=== PATIENT | male | born 1940 | race Hispanic/Latino ===

== ENCOUNTER 2016-06-06 07:23 | Inpatient (IN) | payer MEDICARE, MEDICAID ==
[2016-06-06] MEDS ORDERED: Pantoprazole 40 MG in Sodium Chloride 0.9% 100 ML IV STA (07:35)
[2016-06-06] MEDS ORDERED: Morphine 4 mg/ml ISec IVP STA ×2 (07:35→10:46)
--- NOTE | 2016-06-06 07:38 | ED PDOC ---
Arrival/HPI - General Time Seen by Provider: 06/06/16 07:25 Historian: Snf, EMS EM Caveat: Dementia - Critical Care Critical Care Minutes: 30 minutes - History of Present Illness Narrative History of Present Illness (Text): 06/06/16 07:30 Max Matthew is a 75 year old male brought in by EMS, whose past medical history includes hemolytic anemia, prostate cancer, and Alzheimer's disease, who presents to the emergency room sent from the half-way for abdominal pain and vomiting since last night. Limited HPI and ROS due to patient's dementia and acuity of condition. Time/Duration: 24 hours (Last night) Symptom Onset: Sudden Symptom Course: Unchanged Severity Level: Mild Activities at Onset: Rest Context: Other (Snf) Associated Symptoms (Text): 06/06/16 07:51 From the half-way via ambulance with abdominal pain and vomiting since last night. Patient has a history of dementia is unable to give any history. He was admitted to the hospital approximately 3 months ago for GI bleed. At that time he had a CT scan of the abdomen and pelvis ultrasound of the abdomen HIDA scan and MRCP. He had gallstones, but not acute cholecystitis. He does have a POLST and is a full code. Past Medical History - Provider Review Nursing Documentation Reviewed: Yes - Infectious Disease Hx of Infectious Diseases: None - Cardiac Hx Cardiac Disorders: No - Pulmonary Hx Respiratory Disorders: No - Neurological Hx Neurological Disorder: Yes Hx Alzheimer's Disease: Yes - HEENT Hx HEENT Disorder: No - Renal Hx Renal Disorder: No - Endocrine/Metabolic Hx Endocrine Disorders: No - Hematological/Oncological Hx Blood Transfusions: Yes Hx Blood Transfusion Reaction: No - Integumentary Hx Dermatological Disorder: Yes (JAUNDICED SKIN 06-21-15) - Musculoskeletal/Rheumatological Hx Musculoskeletal Disorders: Yes - Gastrointestinal Hx Gastrointestinal Disorders: Yes (H/O OF BOWEL OBSTRUCTION WITH SX) Other/Comment: POOR APPETITE 06-21-15 FAILURE TO THRIVE,CONSTIPATION - Genitourinary/Gynecological Hx Genitourinary Disorders: Yes Hx Incontinence: Yes Hx Prostate Problems: Yes (PROSTATE CA WITH RADIATION) - Psychiatric Hx Emotional Abuse: No Hx Physical Abuse: No Hx Substance Use: No - Surgical History Other/Comment: BOWEL OBSTRUCTION-1996 - Anesthesia Hx Anesthesia Reactions: No Hx Malignant Hyperthermia: No Family/Social History - Physician Review Nursing Documentation Reviewed: Yes Family/Social History: No Known Family HX Smoking Status: Former Smoker Hx Alcohol Use: No Hx Substance Use: No Allergies/Home Meds Allergies/Adverse Reactions: Allergies No Known Allergies Allergy (Verified 06/06/16 07:52) Home Medications: Home Meds Medication Instructions Recorded Confirmed Donepezil HCl 23 mg PO DAILY 07/08/15 06/06/16 Acetaminophen [8 Hour] 650 mg PO Q4H PRN 03/01/16 06/06/16 Cyanocobalamin [Vitamin B12 100 100 mcg PO DAILY 03/01/16 06/06/16 mcg Tab] Magnesium Hydroxide [Milk Of 30 ml PO PRN PRN 03/01/16 06/06/16 Magnesia] Review of Systems - Review of Systems Systems not reviewed;Unavailable: Dementia Physical Exam Vital Signs Temp Pulse Resp BP Pulse Ox 06/06/16 12:54 104.4 F H 109 H 16 102/54 L 91 L 06/06/16 11:30 110 H 16 139/82 94 L 06/06/16 10:45 102.8 F H 109 H 20 168/97 H 95 06/06/16 07:54 100.1 F H 81 16 146/74 95 Temperature: Febrile Blood Pressure: Normal Pulse: Regular Respiratory Rate: Normal Appearance: Positive for: Well-Appearing, Non-Toxic, Comfortable Pain Distress: None Mental Status: Positive for: Confused, Lethargic, other (Oriented 1 only) - Systems Exam Head: Present: Atraumatic, Normocephalic Pupils: Present: PERRL Extroacular Muscles: Present: EOMI Conjunctiva: Present: Normal Mouth: Present: Moist Mucous Membranes Pharnyx: No: ERYTHEMA, EXUDATE, TONSILS ENLARGED Nose (External): Present: Other (necrotic skin graft) Respiratory/Chest: Present: Clear to Auscultation, Good Air Exchange, Decreased Breath Sounds. No: Respiratory Distress, Accessory Muscle Use Cardiovascular: Present: Regular Rate and Rhythm, Normal S1, S2. No: Murmurs Abdomen: Present: Tenderness (rigid surgical abdomen), Distention (Abdomen distended tympanitic and quiet with surgical scar), Guarding, Hernias ( Incisional hernia easily reduced; general moderate tenderness with involuntary guarding and no rebound), Other. No: Normal Bowel Sounds, Rebound Upper Extremity: Present: Normal Inspection. No: Cyanosis, Edema Lower Extremity: Present: Normal Inspection. No: Edema Neurological: Present: GCS=15, CN II-XII Intact, Speech Normal, Motor Func Grossly Intact Skin: Present: Rashes, Other (generalized tinea infection ) Psychiatric: No: Alert, Oriented x 3, Normal Insight Medical Decision Making ED Course and Treatment: 06/06/16 07:30 Impression: 75 year old male complaining of abdominal pain and vomiting since last night. Plan: -- EKG -- Chest X-ray -- Abdomen and Pelvis CT w/o PO contrast -- Labs -- Blood Culture -- Urinalysis -- Morphine, Zofran, Protonix -- IV Fluids -- Reassess and disposition Prior Visits: Notes and results from previous visits were reviewed. Patient last seen in the ED on 03/01/16 for hematemesis. Patient was admitted to hospitalist care for further evaluation. Progress Notes: 06/06/16 07:55 EKG shows normal sinus rhythm rate approximately 75 with Q waves inferiorly and no acute ST changes 06/06/16 09:[address] Coates, Security Officer Supervisor, who requests consulting Dr. Krishnamurthy. 06/06/16 09:25 CT Abdomen and Pelvis without Oral or IV contrast Creator : Haritha Pacheco MD IMPRESSION: Distended gallbladder with evidence of gallbladder-wall thickening/mild pericholecystic fluid. No calcified gallstones evident. Correlate clinically for possibility of cholecystitis. Right upper quadrant ultrasound may be considered for further evaluation if indicated. Constipation with question of impaction at the rectum. Borderline enlargement of the prostate gland. Recommend correlation with PSA. Numerous urinary bladder diverticula. Scattered prominent but sub cm retroperitoneal and mesenteric lymph nodes, nonspecific. Mild mesenteric inflammatory stranding. Correlate clinically for possibility of mesenteric adenitis/panniculitis. Findings discussed with Dr. Liao on 06/06/16 at 9:25 a.m. 06/06/16 09:10 Chest X-ray: Creator : Haritha Pacheco MD FINDINGS: LUNGS:Bibasilar atelectasis. Scattered probable calcified granulomas. Please note that chest x-ray has limited sensitivity for the detection of pulmonary masses. PLEURA:No significant pleural effusion identified. No definite pneumothorax . CARDIOVASCULAR:Heart size appears within normal limits. Mild aortic ectasia. OSSEOUS STRUCTURES: Osseous demineralization. Degenerative changes. VISUALIZED UPPER ABDOMEN:Unremarkable. IMPRESSION: Bibasilar atelectasis. 06/06/16 09:[address] Krishnamurthy, who agrees to evaluate patient. 06/06/16 09:[address] Hastings, who will evaluate patient for the unit. 06/06/16 14:08 Dr. Coates ,Raghu and Rupa all evaluated the patient in the emergency department. Dr Gusman evaluated the patient in the emergency department and declined ICU admission. - Lab Interpretations Lab Results: 06/06/16 07:48 06/06/16 07:48 Lab Results 06/06/16 08:27: Lactic Acid 4.2 H*, Urine Color Yellow, Urine Appearance Clear, Urine pH 6.0, Ur Specific [place] >= 1.030, Urine Protein Trace H, Urine Glucose (UA) 500 H, Urine Ketones Negative, Urine Blood Small H, Urine Nitrate Negative, Urine Bilirubin Negative, Urine Urobilinogen 0.2, Ur Leukocyte Esterase Negative, Urine RBC 2 - 5, Urine WBC 0 - 2, Ur Epithelial Cells 0 - 2 06/06/16 07:54: pO2 28 L, VBG pH 7.28 L, VBG pCO2 58.0, VBG HCO3 27.3, VBG Total CO2 29.1 H, VBG O2 Sat (Calc) 41.6, VBG Base Excess -0.6 L, VBG Potassium 4.0, Sodium 138.0, Chloride 103.0, Glucose 238 H, Lactate 4.6 H*, FiO2 21.0, Venous Blood Potassium 4.0 06/06/16 07:48: WBC 5.0, RBC 5.01, Hgb 16.3, Hct 45.1, MCV 90.0, MCH 32.5, MCHC 36.1, RDW 13.8, Plt Count 113 L, MPV 9.9, Gran % 92.6 H, Lymph % (Auto) 5.8 L, [place] % (Auto) 1.2, Eos % (Auto) 0.2 L, Baso % (Auto) 0.2, Gran # 4.65, Lymph # 0.3 L, [place] # 0.1, Eos # 0.0, Baso # 0.01, PT 11.0, INR 1.02, APTT 22.9 L, Sodium 140, Chloride 99, Potassium 4.1, Carbon Dioxide 28, Anion Gap 17, BUN 27 H, Creatinine 0.9, Est GFR ( Amer) > 60, Est GFR (Non-Af Amer) > 60, Random Glucose 230 H, Calcium 9.9, Total Bilirubin 3.6 H, AST 195 H, ALT 130 H, Alkaline Phosphatase 90, Lactate Dehydrogenase 877 H, Total Creatine Kinase < 20 L, Troponin I 0.02 D, Total Protein 7.5, Albumin 4.5, Globulin 2.9, Albumin/ Globulin Ratio 1.6, Amylase 93, Lipase 76 I have reviewed the lab results: Yes - RAD Interpretation Radiology Orders: 06/06/16 07:35 ABD & PELVIS W/O PO OR IV CONT [CT] Stat 06/06/16 07:36 CHEST PORTABLE [RAD] Stat Chest 1 view shows no infiltrate effusion or cardiomegaly Data Collector: ED Physician - Medication Orders Current Medication Orders: Sodium Chloride (Sodium Chloride 0.9%) 1,000 mls @ 100 mls/hr IV .Q10H STA Stop: 06/06/16 17:34 Last Admin: 06/06/16 08:05 Dose: 100 MLS/HR eMAR Start Stop Document 06/06/16 08:05 SF (Rec: 06/06/16 08:06 SF [id number]) Intravenous Solution Start Date 06/06/16 Start Time 08:06 End Date 06/06/16 Meropenem 1 gm/ Sodium (Chloride) 100 mls @ 100 mls/hr IVPB Q8 YOLANDA PRN Reason: Protocol Stop: 06/15/16 13:01 Morphine Sulfate (Morphine) 2 mg IVP Q4 PRN PRN Reason: Pain, moderate (4-7) Discontinued Medications Acetaminophen (Tylenol 650 Mg Supp) 650 mg RC STAT STA Stop: 06/06/16 11:02 Last Admin: 06/06/16 11:25 Dose: 650 MG Pantoprazole Sodium 40 mg/ (Sodium Chloride) 100 mls @ 400 mls/hr IV STAT STA Stop: 06/06/16 07:49 Last Admin: 06/06/16 08:12 Dose: 400 MLS/HR eMAR Start Stop Document 06/06/16 08:12 SF (Rec: 06/06/16 08:12 SF [id number]) Intravenous Solution Start Date 06/06/16 Start Time 08:12 End Date 06/06/16 End time 08:42 Total Infusion Time 30 Sodium Chloride (Sodium Chloride 0.9%) 2,500 mls @ 500 mls/hr IV ONCE ONE Stop: 06/06/16 13:06 Last Admin: 06/06/16 09:00 Dose: 500 MLS/HR eMAR Start Stop Document 06/06/16 09:00 SF (Rec: 06/06/16 09:00 SF [id number]) Intravenous Solution Start Date 06/06/16 Start Time 09:00 End Date 06/06/16 End time 10:00 Total Infusion Time 60 Ceftriaxone Sodium (Rocephin 1 Gram Ivpb) 100 mls @ 200 mls/hr IVPB STAT STA PRN Reason: Protocol Stop: 06/06/16 08:37 Last Admin: 06/06/16 09:00 Dose: 200 MLS/HR eMAR Start Stop Document 06/06/16 09:00 SF (Rec: 06/06/16 09:00 SF [id number]) Intravenous Solution Start Date 06/06/16 Start Time 09:00 End Date 06/06/16 End time 10:00 Total Infusion Time 60 Morphine Sulfate (Morphine) 4 mg IVP STAT STA Stop: 06/06/16 07:36 Last Admin: 06/06/16 08:04 Dose: 4 MG MAR Pain Assessment Document 06/06/16 08:04 SF (Rec: 06/06/16 08:04 SF [id number]) Pain Reassessment Is this a pain reassessment? Yes Presence of Pain Presence of Pain Yes Pain Scale Used Pain Scale Used Numeric Location Pain Location Body Site Abdomen Description Description Constant IVP Administration Document 06/06/16 08:04 SF (Rec: 06/06/16 08:04 SF [id number]) Charges for Administration # of IVP Administrations 1 Morphine Sulfate (Morphine) 4 mg IVP STAT STA Stop: 06/06/16 10:47 Last Admin: 06/06/16 11:26 Dose: 4 MG MAR Pain Assessment Document 06/06/16 11:26 SF (Rec: 06/06/16 11:26 SF [id number]) Pain Reassessment Is this a pain reassessment? Yes Sleep Is patient sleeping during reassessment? No Presence of Pain Presence of Pain Yes Pain Scale Used Pain Scale Used Numeric Location Pain Location Body Site Abdomen Description Description Constant Pain Behavior Guarding IVP Administration Document 06/06/16 11:26 SF (Rec: 06/06/16 11:26 SF [id number]) Charges for Administration # of IVP Administrations 1 Ondansetron HCl (Zofran Inj) 4 mg IVP STAT STA Stop: 06/06/16 07:36 Last Admin: 06/06/16 08:04 Dose: 4 MG IVP Administration Document 06/06/16 08:04 SF (Rec: 06/06/16 08:04 SF [id number]) Charges for Administration # of IVP Administrations 1 Pantoprazole Sodium (Protonix Inj) Confirm Administered Dose 40 mg .ROUTE .STK- MED ONE Stop: 06/06/16 08:06 Last Admin: 06/06/16 08:59 Dose: - Scribe Statement The provider has reviewed the documentation as recorded by the Adrienne Montaño Provider Scribe Attestation: All medical record entries made by the Scribe were at my direction and personally dictated by me. I have reviewed the chart and agree that the record accurately reflects my personal performance of the history, physical exam, medical decision making, and the department course for this patient. I have also personally directed, reviewed, and agree with the discharge instructions and disposition. Disposition/Present on Arrival - Present on Arrival Any Indicators Present on Arrival: No History of DVT/PE: No History of Uncontrolled Diabetes: No Urinary Catheter: No History of Decub. Ulcer: No History Surgical Site Infection Following: None - Disposition Have Diagnosis and Disposition been Completed?: Yes Diagnosis: Hyperbilirubinemia, Sepsis, Cholecystitis, Fever, Abdominal pain, Vomiting Disposition: HOSPITALIZED Disposition Time: 09:29 Patient Plan: Admission Patient Problems: Current Active Problems Problem Status Diagnosed Cholecystitis Acute Fever Acute Gastrointestinal hemorrhage Acute Hyperbilirubinemia Acute Sepsis Acute Condition: CRITICAL
[2016-06-06 07:47] VITALS: BMI 25.1
[2016-06-06 07:49] LABS: ADD MANUAL DIFF? NO
[2016-06-06 07:53] LABS: BASO # 0.01 K/mm3 (0.0-2.0); BASO % 0.2 % (0.0-3.0); EOS % 0.2 % (1.5-5.0); GRAN # 4.65 (1.4-6.5); GRAN % 92.6 % (50.0-68.0); HEMATOCRIT 45.1 % (42.0-52.0); LYMPH # 0.3 (1.2-3.4); LYMPH % 5.8 % (22.0-35.0); MEAN CORPUSCULAR HEMOGLOBIN 32.5 pg (25.0-35.0); MEAN CORPUSCULAR HGB CONC 36.1 g/dl (31.0-37.0); MEAN PLATELET VOLUME 9.9 fl (7.0-11.0); MONO # 0.1 (0.1-0.6); MONO % 1.2 % (1.0-6.0); PLATELET COUNT 113 10^3/uL (120.0-450.0); RED CELL DISTRIBUTION WIDTH 13.8 % (11.5-14.5)
[2016-06-06 07:59] LABS: VENOUS BLOOD GAS BASE EXCESS -0.6 mmol/L (0.0-2.0); VENOUS BLOOD PH 7.28 (7.32-7.43)
[2016-06-06 08:03] LABS: ALB/GLOB RATIO 1.6 (1.1-1.8); ALKALINE PHOSPHATASE 90 U/L (38-133); ALT/SGPT 130 U/L (7-56); AMYLASE 93 U/L (35-125); AST/SGOT 195 U/L (15-59); BILIRUBIN,TOTAL 3.6 mg/dL (0.2-1.3); BLOOD UREA NITROGEN 27 mg/dL (7-21); CALCIUM 9.9 mg/dL (8.4-10.5); CARBON DIOXIDE 28 mmol/L (21-33); CHLORIDE 99 mmol/L (98-107); GFR AFRICAN-AMERICAN > 60; GLUCOSE,RANDOM 230 mg/dL (70-110); LIPASE 76 U/L (23-300); POTASSIUM 4.1 mmol/L (3.6-5.0); SODIUM 140 mmol/L (132-148); TOTAL PROTEIN 7.5 g/dL (5.8-8.3)
[2016-06-06 08:04] LABS: INR 1.02 (0.93-1.08); PARTIAL THROMBOPLASTIN TIME 22.9 Seconds (23.7-30.8)
[2016-06-06] MEDS: Sodium Chloride 0.9% 1,000 ML IV STA ×2 (08:05→22:30)
[2016-06-06] MEDS ORDERED: Sodium Chloride 0.9% 2,500 ML IV ONE (08:07)
[2016-06-06] MEDS ORDERED: cefTRIAXone 1 gm 100 ML IVPB STA (08:08)
[2016-06-06 08:14] LABS: TROPONIN I 0.02 ng/mL
[2016-06-06 08:34] LABS: URINE BILIRUBIN NEGATIVE (NEGATIVE); URINE BLOOD SMALL (NEGATIVE); URINE GLUCOSE (UA) 500 mg/dL (NEGATIVE); URINE KETONE NEGATIVE (NEGATIVE); URINE LEUKOCYTE ESTERASE NEGATIVE Leu/uL (NEGATIVE); URINE PROTEIN TRACE mg/dL (<30 mg/dL); URINE UROBILINOGEN 0.2 E.U./dL (<1 E.U./dL)
[2016-06-06 08:35] LABS: URINE APPEARANCE CLEAR (CLEAR); URINE COLOR YELLOW (YELLOW)
[2016-06-06 08:42] LABS: URINE EPITHELIAL CELLS 0 - 2 /hpf (0-5); URINE WBC 0 - 2 /hpf (0-6)
--- NOTE | 2016-06-06 09:08 | RAD ---
HISTORY: ap COMPARISON: Chest x-ray performed 03/03/16, CT chest without contrast performed 03/03/16, lung bases on CT abdomen and pelvis performed 06/06/16. TECHNIQUE: Chest, one view. FINDINGS: LUNGS: Bibasilar atelectasis. Scattered probable calcified granulomas. Please note that chest x-ray has limited sensitivity for the detection of pulmonary masses. PLEURA: No significant pleural effusion identified. No definite pneumothorax . CARDIOVASCULAR: Heart size appears within normal limits. Mild aortic ectasia. OSSEOUS STRUCTURES: Osseous demineralization. Degenerative changes. VISUALIZED UPPER ABDOMEN: Unremarkable. OTHER FINDINGS: None. IMPRESSION: Bibasilar atelectasis.
--- NOTE | 2016-06-06 09:35 | CT ---
PROCEDURE: CT Abdomen and Pelvis without Oral or IV contrast. HISTORY: pain COMPARISON: Abdominal ultrasound performed 03/03/16, CT abdomen and pelvis with contrast performed 03/08/16 TECHNIQUE: Contiguous axial images of the abdomen and pelvis. No oral or IV contrast administered. Coronal and Sagittal reformats generated and reviewed. Radiation dose: Total exam DLP = 502.14 mGy-cm. FINDINGS: There is limited evaluation of the solid organs without the administration of IV contrast. LOWER THORAX: Bibasilar atelectasis. Right lung base calcified granuloma. No visible pleural effusion or pneumothorax. Small hiatal hernia. LIVER: Unremarkable unenhanced appearance. GALLBLADDER AND BILE DUCTS: Distended gallbladder with evidence of gallbladder-wall thickening/mild pericholecystic fluid. No calcified gallstones evident. PANCREAS: Atrophic pancreas. SPLEEN: Unremarkable unenhanced appearance. ADRENALS: Unremarkable unenhanced appearance. KIDNEYS AND URETERS: No hydronephrosis or obstructing renal calculus. BLADDER: Numerous urinary bladder diverticula. REPRODUCTIVE: Borderline enlargement of the prostate gland. Adjacent surgical clips. APPENDIX: No secondary signs of acute appendicitis. BOWEL: The stomach is nondistended. Lack of oral contrast limits evaluation for bowel pathology. The bowel loops appear within normal limits of caliber without evidence of intestinal obstruction. Constipation with suspected impaction at the rectum. PERITONEUM: No significant free fluid. No definite free air. LYMPH NODES: Scattered prominent but sub cm mesenteric and retroperitoneal lymph nodes, nonspecific. Mild mesenteric inflammatory stranding. VASCULATURE: Atherosclerotic calcifications. No aortic aneurysm. BONES: Degenerative changes. OTHER FINDINGS: None. IMPRESSION: Distended gallbladder with evidence of gallbladder-wall thickening/mild pericholecystic fluid. No calcified gallstones evident. Correlate clinically for possibility of cholecystitis. Right upper quadrant ultrasound may be considered for further evaluation if indicated. Constipation with question of impaction at the rectum. Borderline enlargement of the prostate gland. Recommend correlation with PSA. Numerous urinary bladder diverticula. Scattered prominent but sub cm retroperitoneal and mesenteric lymph nodes, nonspecific. Mild mesenteric inflammatory stranding. Correlate clinically for possibility of mesenteric adenitis/panniculitis. Findings discussed with Dr. Liao on 06/06/16 at 9:25 a.m.
[2016-06-06 11:19] LABS: VENOUS BLOOD GAS BASE EXCESS -8.9 mmol/L (0.0-2.0)
[2016-06-06 11:23] LABS: VENOUS BLOOD PH 7.18 (7.32-7.43)
--- NOTE | 2016-06-06 11:34 | CP.CCUPN ---
<Zulema Jiang - Last Filed: 06/06/16 12:10> CCU Subjective - Physician Review Events Since Last Encounter (Free Text): 06/06/16 10:44 CC: Abdominal Pain, Vomiting HPI: 75 yo M w h/o SBO, MDS, gastritis, Alzheimer's dementia presented to ER from [facility] with 1 day h/o abdominal pain and non-bloody, non- bilious vomiting. Patient is severely demented and is unable to provide any history. History is largely obtained from ER physician and the patient's , who is currently at bedside in the ER. Patient had recent hospitalization in February with similar symptoms at which time he was found to have PNA, UGIB, UTI , sepsis. Patient had MRCP at that time which showed normal CBD, small gallstones. He presents today with complaints of abdominal pain, emesis, no complaints of GIB. He is seen and examined in ER, appears in mild acute distress unable to answer any questions aside from confirming abdominal pain due to baseline mental function. PMHx: SBO, hemolytic anemia, MDS, prostate CA, Alzheimer's dementia, SBO s/p surgical intervention, diverticulosis, gastritis, hypothyroidism PSHx: abdominal sx for SBO FamilyHx: Mom had ovarian and colon CA. Dad had an aortic aneurysm. SocialHx: Former cigar and pipe smoker. Quit smoking 30 years ago. No h/o EtOH and illicit drug abuse Allergies: NKDA HomeMeds: Donepezil, Feosol, Protonix, Synthroid, Milk of Mag, B12, Tylenol Critical Care Time Spent (in minutes): 50 CCU Objective - Physical Exam Head: Positive for: Atraumatic, Normocephalic Pupils: Positive for: PERRL Extroacular Muscles: Positive for: EOMI Conjunctiva: Positive for: Normal Mouth: Positive for: Moist Mucous Membranes Pharnyx: Negative for: ERYTHEMA, EXUDATE, TONSILS ENLARGED Nose (External): Positive for: Other (necrotic skin graft) Respiratory/Chest: Positive for: Clear to Auscultation, Good Air Exchange, Decreased Breath Sounds. Negative for: Respiratory Distress, Accessory Muscle Use Cardiovascular: Positive for: Regular Rate and Rhythm, Normal S1, S2. Negative for: Murmurs Abdomen: Positive for: Tenderness, Distention (Abdomen distended tympanitic and quiet with surgical scar), Guarding, Hernias (Incisional hernia easily reduced; general moderate tenderness with involuntary guarding and no rebound), Scars. Negative for: Normal Bowel Sounds, Rebound Upper Extremity: Positive for: Normal Inspection. Negative for: Cyanosis, Edema Lower Extremity: Positive for: Normal Inspection. Negative for: Edema Neurological: Positive for: GCS=15, CN II-XII Intact, Speech Normal, Motor Func Grossly Intact Skin: Positive for: Rashes, Other (generalized tinea infection ) Psychiatric: Negative for: Alert, Oriented x 3, Normal Insight - Medications Active Medications: Active Medications Generic Name Dose Route Start Last Admin Trade Name Freq PRN Reason Stop Dose Admin Sodium Chloride 1,000 mls @ 100 mls/hr 06/06/16 07:35 06/06/16 08:05 Sodium Chloride 0.9% IV 06/06/16 17:34 100 mls/hr .Q10H STA Administration Sodium Chloride 2,500 mls @ 500 mls/hr 06/06/16 08:07 06/06/16 09:00 Sodium Chloride 0.9% IV 06/06/16 13:06 500 mls/hr ONCE ONE Administration Review of Systems - Review of Systems Systems not reviewed;Unavailable: Dementia - Constitutional Constitutional: Chills - Gastrointestinal Gastrointestinal: Abdominal Pain, Vomiting (non-bloody, non-bilious) Assessment/Plan - Assessment and Plan (Free Text) Assessment: 75 yo M w h/o SBO, MDS, gastritis, Alzheimer's dementia admitted with acute abdomen and vomiting 2/2 presumed acute on chronic cholecystitis Plan: Neuro: Mental status at baseline, h/o Alzheimer's dementia, unable to provide history CV: Currently mildly hypertensive and tachycardic. Continue to monitor VS. Maintain MAP>65 Pulm: Currently no acute issues, able to protect airway. Will continue to GI: CT A/P without contrast shows distended gallbladder with evidence of gallbladder wall thickening/mild pericholecystic fluid, no calcified gallstones , constipation, scattered prominent retroperitoneal and mesenteric LNs, mild mesenteric inflammatory stranding. Will start zosyn Followup and trend Lactate Recommend US of the abdomen to better evaluate gallbladder Recommend surgical and GI evaluation Endo: No acute issues Renal: Mild uremia 27. Continue to monitor. No DIDI. GFR >60. Continue to monitor renal function, I&Os ID: Febrile, tachycardic. Start Zosyn for prophylaxis for possible acute on chronic cholecystitis. Obtain blood and urine cultures. Heme: Hb stable. No signs of bleeding. Continue to monitor. DVT/GI ppx - Date & Time Date: 06/06/16 Time: 12:18 <Dyllan Gusman MD H - Last Filed: 06/06/16 13:11> CCU Objective - Vital Signs / Intake & Output Vital Signs (Last 4 hours): Vital Signs Temp Pulse Resp BP Pulse Ox 06/06/16 12:54 104.4 F H 109 H 16 102/54 L 91 L 06/06/16 10:45 102.8 F H 109 H 20 168/97 H 95 - Medications Active Medications: Active Medications Generic Name Dose Route Start Last Admin Trade Name Freq PRN Reason Stop Dose Admin Sodium Chloride 1,000 mls @ 100 mls/hr 06/06/16 07:35 06/06/16 08:05 Sodium Chloride 0.9% IV 06/06/16 17:34 100 mls/hr .Q10H STA Administration Sodium Chloride 2,500 mls @ 500 mls/hr 06/06/16 08:07 06/06/16 09:00 Sodium Chloride 0.9% IV 06/06/16 13:06 500 mls/hr ONCE ONE Administration Meropenem 1 gm/ Sodium 100 mls @ 100 mls/hr 06/06/16 13:00 Chloride IVPB 06/15/16 13:01 Q8 YOLANDA Protocol Morphine Sulfate 2 mg 06/06/16 11:50 Morphine IVP Q4 PRN Pain, moderate (4-7) - Patient Studies Lab Studies: Lab Studies 06/06/16 Range/Units 10:40 pO2 50 (30-55) mm/Hg VBG pH 7.18 L* (7.32-7.43) VBG pCO2 53.0 (40-60) VBG HCO3 19.8 L (21-28) mmol/l VBG Total CO2 21.4 L (22-28) mmol.L VBG O2 Sat (Calc) 77.6 H (40-65) % VBG Base Excess -8.9 L (0.0-2.0) mmol/L VBG Potassium 3.9 (3.6-5.2) mmol/L Sodium 140.0 (132-148) mmol/L Chloride 110.0 H (98-107) mmol/L Glucose 229 H (75-110) mg/dl Lactate 8.1 H* (0.7-2.1) mmol/L FiO2 21.0 % Venous Blood Potassium 3.9 (3.6-5.2) mmol/L Laboratory Results - last 24 hr 06/06/16 10:40 pO2 50 VBG pH 7.18 L* VBG pCO2 53.0 VBG HCO3 19.8 L VBG Total CO2 21.4 L VBG O2 Sat (Calc) 77.6 H VBG Base Excess -8.9 L VBG Potassium 3.9 Sodium 140.0 Chloride 110.0 H Glucose 229 H Lactate 8.1 H* FiO2 21.0 Venous Blood Potassium 3.9 Critical Care Progress Note - Nutrition Nutrition: Nutrition Category Date Time Status NPO Diet [DIET] Diets 06/06/16 Dinner Ordered Attending/Attestation - Attestation I have personally seen and examined this patient.: Yes I have fully participated in the care of the patient.: Yes I have reviewed all pertinent clinical information: Yes Notes (Text): 06/06/16 13:03 75 y/o M seen in the ER with increased abdominal pain , diaphoresis, fever and tachycardia Worrisome for acute/ chronic Cholecystitis CT abd / pelvis shows increased GB wall thickening Lactate increased, fevers and worrisome for acute abdomen on physical exam. Abd rigid with guarding and tightness. Surgical consult pending awaiting dispo Vancomycin and Zosyn started . Cx sent . May need US GB and possible need for cholycystostomy tube. cc time 72 min Pt to be brought to the ICU
[2016-06-06] MEDS ORDERED: Morphine 2 mg/ml ISec IVP PRN (11:50)
--- NOTE | 2016-06-06 12:30 | HP ---
HISTORY OF PRESENT ILLNESS: The patient is a 75-year-old male who was [facility] secondary to nausea, vomiting and abdominal discomfort. The patient seen and examined in the ER, clinically is very much so in mild distress. He is not able to answer my questio ns due to the fact that he is only moaning in pain. Family was at the bedside stating that he was do ing well in rehab and then all of a sudden today started having severe nausea and vomiting. PAST MEDICAL HISTORY: Includes Alzheimer's disease, hemolytic anemia, prostate CA, status post radio active pellets. He has had a history of bowel obstruction, status post surgery with failure to thriv e and constipation. MEDICAL ALLERGIES: No known allergies. MEDICATIONS: See MAY. SOCIAL HISTORY: Former smoker. No alcohol, no drug use. REVIEW OF SYSTEMS: Unfortunately, unable to obtain. However, as per ER doctor, no signs of any acut e distress. No headaches, no dizziness, no nausea, no vomiting, no chest pain. No shortness of grover th. However, according to the nurse at the [facility], he was complaining of nausea with 2 episode s of vomiting and he was bent over in pain in the position because of his belly. PHYSICAL EXAMINATION: VITAL SIGNS: Blood pressure currently is 146/74, pulse rate of 109, temperature is 102.8, O2 saturat ion is 95 on room air. HEENT: Normocephalic, atraumatic. Pale conjunctivae. CARDIOVASCULAR: Regular rate and rhythm. S1, S2 appreciated. LUNGS: Bilateral air entry is positive; however, decreased at the base with no wheezes or rhonchi. ABDOMEN: At this point, there is guarding. There is rebound and there is tenderness diffusely. EXTREMITIES: Peripheral pulses +2 with no pitting edema. NEUROLOGICAL: Unable to ascertain due to the fact the patient was just moaning in pain. LABORATORIES: WBCs of 5.0, hemoglobin of 16.3, hematocrit of 45.1, platelets of 113. Coagulation wi thin normal limits with an INR of 1.02. Chemistry also within normal limits with a lactic acid eleva carrie at 4.2. LFTs: AST of 195, ALT of 130. Amylase and lipase within normal limits. CAT scan of abdomen is pending official reading at this point. ASSESSMENT: 1. Abdominal pain. 2. Rule out mesenteric infarction. 3. Rule out any small bowel obstruction. 4. Rule out cholecystitis. 5. Anemia. 6. Prostate carcinoma. 7. Diverticulitis. PLAN: At this time, we will continue his pain management the patient is receiving as well as IV flui ds. We will also empirically start patient on IV antibiotics and we will get a consult with surgery at this point/ ICU has been called on board to evaluate the patient and also we will call GI to jr angulo. Stepan Coates MD cc: [id number] TT: 06/06/2016 12:29:57 tn
[2016-06-06] MEDS ORDERED: Piperacillin/Tazobact 3.375 gm 100 ML IVPB SCH ×2 (12:44→18:00)
--- NOTE | 2016-06-06 13:35 | CON ---
DATE: 06/06/2016 The patient seen in the Emergency Room. CHIEF COMPLAINT: Fever of 102 x 1 day duration. HISTORY OF PRESENT ILLNESS: This is a 75-year-old male retirement patient with hemolytic anemia, h istory of Alzheimer's dementia, prostate cancer, depression, history of bowel obstruction, radiation pellets. In February, the patient had E. coli bacteremia, biliary tree as the origin, also had Klebs iella urinary tract infection with a history of depression, who as admitted from the retirement acc ording to the patient's . The patient was seen at the bedside in the Emergency Room with a fever . The patient, at this point, in the Emergency Room, is unresponsive. The nursing staff states that the patient was responsive earlier as the patient's states the patient was responsive earlier. At this point, the patient is not responsive. There has been no chest pain reported. No cough or s hortness of breath. No hemoptysis reported. PAST MEDICAL HISTORY: Significant for hemolytic anemia, Alzheimer's dementia, prostate cancer with r adiation, history of depression, history of bowel obstruction and history of radiated pellets and E. coli bacteremia secondary to biliary tree, Klebsiella urinary tract infection and depression. PAST SURGICAL HISTORY: Significant for bowel surgery. PHYSICAL EXAMINATION: VITAL SIGNS: The patient is in bed with a temperature of 102.8 and 160/70, a heart rate of 102, resp iratory rate of 20. HEENT: Unremarkable. NECK: Supple. LUNGS: Have decreased breath sounds. HEART: Normal S1, S2. ABDOMEN: Soft. No rebound, no guarding, no masses. There is mild tenderness in the right upper sandra drant. LABORATORY EXAMINATION: Reveals the patient has a white count of 5, hemoglobin of 16, platelets of 1 13. Chemistries reveal the patient's LFTs are elevated with bilirubin of 3.6. LDH is 877. Lactic a jane is 4.2 and alk phos is only 90. Urinalysis is noted, unremarkable. The patient had a CAT scan o f the abdomen and pelvis which was unremarkable except for the patient has atrophic pancreas. The santos huizar's CAT scan was without p.o. or IV contrast and he does have a distended gallbladder with eviden ce of gallbladder wall thickening and pericholecystic fluid. No calcified gallstone is evident. ASSESSMENT AND PLAN: A 75-year-old retirement patient with hemolytic anemia, Alzheimer's dementia, prostate cancer, depression, bowel obstruction and radiated pellets, Escherichia coli bacteremia sec ondary biliary tree, Klebsiella urinary tract infection, depression, now presenting with a temperatur e of 102, tachycardia with sepsis, most likely gastrointestinal origin with gallbladder and biliary t ree and ascending cholangitis. We will call the surgical and gastroenterology consultations and I d iscussed the case with Dr. Gusman, the program professional, who will admit the patient to the unit and order a stat HIDA scan, start the patient empirically on meropenem and we will make further recommendations. Padilla Goode MD cc: [id number] TT: 06/06/2016 13:34:33 Confirmation # [id number] Dictation # [id number] tn
[2016-06-06] MEDS ORDERED: Propofol 10 mg/ml Inj (20 ML) IVP ONE (14:08)
[2016-06-06] MEDS ORDERED: Sodium Chloride 0.9% 1,000 ML IV STA ×4 (14:08→20:30)
--- NOTE | 2016-06-06 15:00 | CP.PCM.CON ---
History of Present Illness - History of Present Illness History of Present Illness: General Surgery Consult note for Dr. Krishnamurthy Consult reason: 75Y/O M with PMH of alzheimers, prostate cancer treated with radiation pellets, and constipation with PSH of some Past Patient History - Infectious Disease Hx of Infectious Diseases: None - Past Social History Smoking Status: Former Smoker - CARDIAC Hx Cardiac Disorders: No - PULMONARY Hx Respiratory Disorders: No - NEUROLOGICAL Hx Neurological Disorder: Yes Hx Alzheimer's Disease: Yes - HEENT Hx HEENT Problems: No - RENAL Hx Chronic Kidney Disease: No - ENDOCRINE/METABOLIC Hx Endocrine Disorders: No - HEMATOLOGICAL/ONCOLOGICAL Hx Blood Transfusions: Yes Hx Blood Transfusion Reaction: No - INTEGUMENTARY Hx Dermatological Problems: Yes (JAUNDICED SKIN 06-21-15) - MUSCULOSKELETAL/RHEUMATOLOGICAL Hx Musculoskeletal Disorders: Yes - GASTROINTESTINAL Hx Gastrointestinal Disorders: Yes (H/O OF BOWEL OBSTRUCTION WITH SX) Other/Comment: POOR APPETITE 06-21-15 FAILURE TO THRIVE,CONSTIPATION - GENITOURINARY/GYNECOLOGICAL Hx Genitourinary Disorders: Yes Hx Incontinence: Yes Hx Prostate Problems: Yes (PROSTATE CA WITH RADIATION) - PSYCHIATRIC Hx Emotional Abuse: No Hx Physical Abuse: No Hx Substance Use: No - SURGICAL HISTORY Other/Comment: BOWEL OBSTRUCTION-1995 - ANESTHESIA Hx Anesthesia Reactions: No Hx Malignant Hyperthermia: No Meds Allergies/Adverse Reactions: Allergies Allergy/AdvReac Type Severity Reaction Status Date / Time No Known Allergies Allergy Verified 06/06/16 07:52 - Medications Medications: Current Medications Sodium Chloride (Sodium Chloride 0.9%) 1,000 mls @ 100 mls/hr IV .Q10H STA Stop: 06/06/16 17:34 Last Admin: 06/06/16 08:05 Dose: 100 mls/hr Meropenem 1 gm/ Sodium (Chloride) 100 mls @ 100 mls/hr IVPB Q8 YOLANDA PRN Reason: Protocol Stop: 06/15/16 13:01 Sodium Chloride (Sodium Chloride 0.9%) 1,000 mls @ 999 mls/hr IV .Q1H1M STA Stop: 06/06/16 15:08 Dexmedetomidine HCl (Precedex 4 Mcg/Ml (100 Ml)) 100 mls @ 3.856 mls/hr IV .Q24H PRN; Protocol; 0.2 MCG/KG/HR PRN Reason: Agitation Morphine Sulfate (Morphine) 2 mg IVP Q4 PRN PRN Reason: Pain, moderate (4-7) Sodium Phosphate (Fleet Enema) 135 ml RC ONCE ONE Stop: 06/06/16 14:57 Results - Vital Signs Recent Vital Signs: Last Vital Signs Temp 104.4 F H 06/06/16 12:54 Pulse 109 H 06/06/16 12:54 Resp 16 06/06/16 12:54 BP 102/54 L 06/06/16 12:54 Pulse Ox 91 L 06/06/16 12:54 - Labs Result Diagrams: 06/06/16 07:48 06/06/16 07:48 Labs: Laboratory Results - last 24 hr 06/06/16 10:40 pO2 50 VBG pH 7.18 L* VBG pCO2 53.0 VBG HCO3 19.8 L VBG Total CO2 21.4 L VBG O2 Sat (Calc) 77.6 H VBG Base Excess -8.9 L VBG Potassium 3.9 Sodium 140.0 Chloride 110.0 H Glucose 229 H Lactate 8.1 H* FiO2 21.0 Venous Blood Potassium 3.9
[2016-06-06] MEDS: Meropenem 1 GM in Sodium Chloride 0.9% 100 ML IVPB SCH ×3 (15:24→22:04)
[2016-06-06] MEDS: Dexmedetomidine HCl 4mcg/ml 100 ML IV PRN (15:25)
--- NOTE | 2016-06-06 15:43 | RAD ---
HISTORY: ETT conf, OGT COMPARISON: Chest x-ray performed 06/06/16 at 820 hours TECHNIQUE: Chest, one view. FINDINGS: Distal tip of the endotracheal tube terminates approximately 4.9 cm above the level the christiano. Nasogastric tube extends the expected location of the stomach. LUNGS: Bibasilar atelectasis or infiltrates. Please note that chest x-ray has limited sensitivity for the detection of pulmonary masses. PLEURA: No significant pleural effusion identified. No definite pneumothorax . CARDIOVASCULAR: Heart size appears within normal limits. OSSEOUS STRUCTURES: Mild degenerative changes. VISUALIZED UPPER ABDOMEN: Unremarkable. OTHER FINDINGS: None. IMPRESSION: Distal tip of the endotracheal tube terminates approximately 4.9 cm above the level the christiano. Nasogastric tube extends the expected location of the stomach. Bibasilar atelectasis or infiltrates.
[2016-06-06 16:14] LABS: ABG MECHANICAL RATE 20; ARTERIAL BLOOD GAS HCO3 13.2 mmol/L (21-28); ARTERIAL BLOOD GAS PH 7.21 (7.35-7.45); ATERIAL BLOOD GAS PEEP 5
--- NOTE | 2016-06-06 16:28 | CON ---
DATE: 06/06/2016 The patient is seen in the Emergency Room in the presence of his . He does not respond to questi oning, but does respond to pain. He is rigid for the most part, and seems to have a shake; maybe a c hill. HE HAS RECENTLY HAD A REACTION TO ROCEPHIN WITH REDNESS THROUGHOUT. His abdomen is hard. The re is guarding, but could be voluntary. It is very difficult to tell. No rebound, no mass. There i s a CAT scan that I looked at it myself showing a distended gallbladder with maybe a thick wall and s ome fluid around it, some constipation, stool in the cecum and the rectum. There is no evidence of i ntestinal or colonic disease. No evidence of obstruction. His temperature is 104.4. LABORATORY STUDIES: His white count is 5. His lactate is 4.2 up to 8. His total bili is 3.6, which is down from February. AST and ALT 195 and 130, alk phos normal. Chest x-ray looks pretty normal. I am at a loss to explain this clinical picture. I do not think th is is intra-abdominal sepsis. The workup of the gallbladder in February was positive for MRI/MRCP th at was relatively normal, with some small stones. HIDA was normal. Will treat with antibiotics, NG tube. I would suggest a Fleet enema. Urinalysis is back. It is non specific. I do not have a source for this patient's clinical septic appearance. Awaiting consult [facility]. Jean-Paul Krishnamurthy MD cc: [id number] TT: 06/06/2016 16:28:33 Confirmation # [id number] Dictation # [id number]
[2016-06-06 19:02] LABS: VENOUS BLOOD GAS BASE EXCESS -8.9 mmol/L (0.0-2.0)
[2016-06-06 21:49] LABS: VENOUS BLOOD GAS BASE EXCESS -11.3 mmol/L (0.0-2.0); VENOUS BLOOD PH 7.23 (7.32-7.43)
[2016-06-06] MEDS ORDERED: Sodium Chloride 0.9% 1,000 ML IV SCH (22:30)
[2016-06-07] MEDS ORDERED: Pneumococcal 23-Valent Vaccine IM ONE (00:40)
[2016-06-07] MEDS ORDERED: Influenza Vaccine 45 MCG/0.5 ml IM ONE (00:40)
[2016-06-07] MEDS: Meropenem 1 GM in Sodium Chloride 0.9% 100 ML IVPB SCH ×3 (05:14→21:46)
[2016-06-07 06:32] LABS: ARTERIAL BLOOD GAS HCO3 11.1 mmol/L (21-28); ARTERIAL BLOOD GAS O2 CAPACITY 18.1 mL/dl (16-24); ARTERIAL BLOOD GAS O2 CONTENT 18.2 ML/dl (15-23); ARTERIAL BLOOD GAS PH 7.24 (7.35-7.45); ARTERIAL BLOOD HGB O2 SAT 97.4 % (95.0-98.0); HHB -0.3 % (0-5); METHEMOGLOBIN 0.8 % (0.0-3.0)
[2016-06-07 07:16] LABS: HEMATOCRIT 38.6 % (42.0-52.0); MEAN CELL VOLUME 90.2 fL (80.0-105.0); MEAN CORPUSCULAR HEMOGLOBIN 32.2 pg (25.0-35.0); MEAN CORPUSCULAR HGB CONC 35.8 g/dl (31.0-37.0); MEAN PLATELET VOLUME 11.4 fl (7.0-11.0); PLATELET COUNT 79 10^3/uL (120.0-450.0); RED CELL DISTRIBUTION WIDTH 14.6 % (11.5-14.5)
--- NOTE | 2016-06-07 07:42 | CP.PCM.CON ---
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 Patient is intubated and history obtained from ICU team, record review, and discussion with GI attending. Pertinent history of discharge with treatment of severe sepsis secondary to Ecoli Bacteremia/ K. pneumoniae UTI/Pneumonia. During this admission, ultrasound was concerning for cholecystitis/cholelithiasis with elevated LFTs due to cholestasis of sepsis. MRCP showed mild pericholecystic fluid, no biliary dilatation or choledocholithiasis, and normal HIDA scan. Active treatment of ventilator dependent respiratory failure in the setting of hypoxia, drug reaction to ceftriaxone, and septic shock on dual vasopressor support with CT A/P showing cholecystitis- distended, thickened gallbladder, and pericholecystic fluid. Patient is on Precedex for sedation, opens eyes to verbal stimuli, follows command to hand porter baggage/movement of toes, and nods yes to having abdominal pain. Family- intubated, unable to obtain; mother-Ovarian cancer, Colon cancer at 85 years of age, father-aortic aneurysm Social history- intubated, unable to obtain; record review- former cigar/pipe smoker, quit 30 years prior, o, alcohol, illicit drugs Surgery- prior bowel resection for SBO EGD 06/2015- mild antral gastritis with two superficial erosions, diverticulosis colonoscopy 06/2015- 9mm sessile tubular adenoma sigmoid polyp Review of Systems - Review of Systems Systems not reviewed;Unavailable: Intubated Review of Systems: A 12-point review of systems not completed due to being intubated on sedation Past Patient History - Infectious Disease Hx of Infectious Diseases: None - Past Social History Smoking Status: Former Smoker - CARDIAC Hx Cardiac Disorders: No - PULMONARY Hx Respiratory Disorders: Yes Hx Pneumonia: Yes - NEUROLOGICAL Hx Neurological Disorder: Yes Hx Alzheimer's Disease: Yes - HEENT Hx HEENT Problems: Yes (WEARS RX GLASSES) - RENAL Hx Chronic Kidney Disease: No - ENDOCRINE/METABOLIC Hx Endocrine Disorders: No - HEMATOLOGICAL/ONCOLOGICAL Hx Blood Disorders: Yes Hx Anemia: Yes - INTEGUMENTARY Hx Dermatological Problems: Yes (JAUNDICED SKIN 06-21-15) - MUSCULOSKELETAL/RHEUMATOLOGICAL Hx Musculoskeletal Disorders: Yes Hx Falls: Yes Hx Unsteady Gait: Yes - GASTROINTESTINAL Hx Gastrointestinal Disorders: Yes (H/O OF BOWEL OBSTRUCTION WITH SX) Other/Comment: POOR APPETITE 06-21-15 FAILURE TO THRIVE,CONSTIPATION - GENITOURINARY/GYNECOLOGICAL Hx Genitourinary Disorders: Yes Hx Incontinence: Yes Hx Prostate Problems: Yes (PROSTATE CA WITH RADIATION-SEEDING) - PSYCHIATRIC Hx Emotional Abuse: No Hx Physical Abuse: No Hx Substance Use: (UNKNOWN) - SURGICAL HISTORY Hx Surgeries: Yes Other/Comment: BOWEL OBSTRUCTION-1995 - ANESTHESIA Hx Anesthesia Reactions: No Hx Malignant Hyperthermia: No Meds Allergies/Adverse Reactions: Allergies Allergy/AdvReac Type Severity Reaction Status Date / Time ceftriaxone sodium Allergy RASH Verified 06/07/16 01:10 [From Rocephin] - Medications Medications: Current Medications Acetaminophen (Tylenol 325mg Tab) 650 mg PO Q8 PRN PRN Reason: Fever >100.4 F Last Admin: 06/06/16 15:55 Dose: 650 mg Meropenem 1 gm/ Sodium (Chloride) 100 mls @ 100 mls/hr IVPB Q8 YOLANDA PRN Reason: Protocol Stop: 06/15/16 13:01 Last Admin: 06/07/16 05:14 Dose: 100 mls/hr Dexmedetomidine HCl (Precedex 4 Mcg/Ml (100 Ml)) 100 mls @ 3.856 mls/hr IV .Q24H PRN; Protocol; 0.2 MCG/KG/HR PRN Reason: Agitation Last Titration: 06/07/16 07:00 Dose: 0.3 mcg/kg/hr Vasopressin 20 units/ Sodium (Chloride) 101 mls @ 9.09 mls/hr IV .Q11H7M YOLANDA; 0.03 U/MIN PRN Reason: Protocol Last Admin: 06/06/16 23:15 Dose: 9.09 mls/hr Sodium Chloride (Sodium Chloride 0.9%) 1,000 mls @ 100 mls/hr IV .Q10H YOLANDA Last Admin: 06/06/16 22:30 Dose: 100 mls/hr Norepinephrine Bitartrate 8 mg (/ Dextrose) 258 mls @ 7.74 mls/hr IV .Q24H PRN ; Protocol; 4 MCG/MIN PRN Reason: TITRATE PER MD ORDER Last Titration: 06/07/16 04:28 Dose: 50 mcg/min Morphine Sulfate (Morphine) 2 mg IVP Q4 PRN PRN Reason: Pain, moderate (4-7) Physical Exam - Constitutional Appears: Toxic, Chronically Ill - Head Exam Head Exam: ATRAUMATIC, NORMOCEPHALIC - Eye Exam Eye Exam: PERRL Pupil Exam: PERRL. absent: Miosis, Mydriatic - ENT Exam ENT Exam: Mucous Membranes Moist, Normal Oropharynx Additional comments: ETT and OGT in place - Neck Exam Neck exam: Positive for: Normal Inspection Additional comments: Right IJ central line C/D/I - Respiratory Exam Respiratory Exam: Clear to Auscultation Bilateral, Rhonchi. absent: Rales, Wheezes Additional comments: rare scattered rhonchi - Cardiovascular Exam Cardiovascular Exam: RRR, +S1, +S2. absent: Gallop, Rubs - GI/Abdominal Exam GI & Abdominal Exam: Distended, Hypoactive Bowel Sounds, Soft, Tenderness. absent: Firm, Guarding, Organomegaly, Rebound, Rigid Additional comments: hyper-resonant, distended, positive Torres's sign- grimace to RUQ superficial and deep palpation, vertical surgical scar without signs of induration or erythema, LLQ erythema due to drug reaction - Extremities Exam Extremities exam: Positive for: normal inspection. Negative for: pedal edema - Neurological Exam Additional comments: intubated on sedation, PERRL, B/L equivocal Babinski - Psychiatric Exam Additional comments: intubated on sedation, unable to assess - Skin Skin Exam: Dry, Intact, Rash, Warm Additional comments: rash forearm RUE, chest, thighs; left lower abdomen erythema, B/L LE onchymycosis Results - Vital Signs Recent Vital Signs: Last Vital Signs Temp 99.6 F 06/07/16 04:00 Pulse 68 06/07/16 04:20 Resp 30 H 06/07/16 00:00 BP 109/80 06/07/16 04:00 Pulse Ox 98 06/07/16 02:30 - Labs Result Diagrams: 06/07/16 07:11 06/07/16 07:11 Labs: Laboratory Results - last 24 hr 06/06/16 06/06/16 06/06/16 10:40 15:45 16:00 pCO2 33 L pO2 50 118.0 H HCO3 13.2 L ABG pH 7.21 L ABG Total CO2 14.2 L ABG O2 Saturation 99.1 H ABG O2 Content ABG Base Excess -13.6 L ABG Hemoglobin ABG Carboxyhemoglobin POC ABG HHb (Measured) ABG Methemoglobin ABG O2 Capacity ABG Potassium 4.0 VBG pH 7.18 L* VBG pCO2 53.0 VBG HCO3 19.8 L VBG Total CO2 21.4 L VBG O2 Sat (Calc) 77.6 H VBG Base Excess -8.9 L VBG Potassium 3.9 Hgb O2 Saturation Sodium 140.0 144.0 Chloride 110.0 H 110.0 H Glucose 229 H 264 H Lactate 8.1 H* 11.0 H* Mechanical Rate 20 FiO2 21.0 100.0 Tidal Volume 400 PEEP 5 Lactic Acid 9.4 H* Arterial Blood Potassium 4.0 Venous Blood Potassium 3.9 06/06/16 06/06/16 06/07/16 18:55 21:40 06:28 pCO2 26 L pO2 32 35 177.0 H HCO3 11.1 L ABG pH 7.24 L ABG Total CO2 11.9 L ABG O2 Saturation 100.3 H ABG O2 Content 18.2 ABG Base Excess -14.6 L ABG Hemoglobin 13.0 ABG Carboxyhemoglobin 2.0 H POC ABG HHb (Measured) -0.3 L ABG Methemoglobin 0.8 ABG O2 Capacity 18.1 ABG Potassium VBG pH 7.20 L 7.23 L VBG pCO2 49.0 37.0 L VBG HCO3 19.2 L 15.5 L VBG Total CO2 20.7 L VBG O2 Sat (Calc) 55.7 66.6 H VBG Base Excess -8.9 L -11.3 L VBG Potassium 3.5 L Hgb O2 Saturation 97.4 Sodium 144.0 Chloride 112.0 H Glucose 184 H Lactate 7.0 H* Mechanical Rate FiO2 21.0 80.0 Tidal Volume PEEP Lactic Acid Arterial Blood Potassium Venous Blood Potassium 3.5 L Assessment & Plan - Assessment and Plan (Free Text) Assessment: 75 year old male with history of Prostate cancer s/p Brachytherapy, autoimmune hemolytic anemia, pancytopenia with 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 Previous discharge 03/05/16 0 treatment of severe sepsis secondary to Ecoli Bacteremia/ K. pneumoniae UTI/Pneumonia. During this admission, ultrasound was concerning for cholecystitis/cholelithiasis with elevated LFTs due to cholestasis of sepsis. MRCP showed mild pericholecystic fluid, no biliary dilatation or choledocholithiasis, and normal HIDA scan. Active treatment of ventilator dependent respiratory failure in the setting of hypoxia, drug reaction to ceftriaxone, and septic shock on dual vasopressor support with CT A/P showing cholecystitis- distended, thickened gallbladder, and pericholecystic fluid with concern for ascending cholangitis. Plan: >pending ultrasound and HIDA scan to evaluate for biliary dilatation, choledocholithiasis, and cystic duct obstruction >unable to perform MRCP on ventilator/sedated/vasopressor support >will benefit from cholecystostomy tube placement with IR for gallbladder decompression >continue Meropenem with history of K. pneumonia/ Ecoli >follow up blood, urine, sputum cultures >pending direct bilirubin and Hepatitis panel >Hepatitis negative 02/2016 >awaiting Ultrasound and HIDA scan >on vasopressor support >ID managing- follow up recommendations >Surgery managing- follow up recommendations >case discussed with attending and multidisplinary team >critical clinical status, guarded prognosis, continue aggressive medical management and critical care management <Heike Gomez MD - Last Filed: 06/07/16 13:07> Meds - Medications Medications: Current Medications Acetaminophen (Tylenol 325mg Tab) 650 mg PO Q8 PRN PRN Reason: Fever >100.4 F Last Admin: 06/06/16 15:55 Dose: 650 mg Fentanyl (Fentanyl) 100 mcg IVP Q1 PRN PRN Reason: Pain, severe (8-10) Fentanyl (Fentanyl) 75 mcg IVP Q1 PRN PRN Reason: Pain, moderate (4-7) Meropenem 1 gm/ Sodium (Chloride) 100 mls @ 100 mls/hr IVPB Q8 YOLANDA PRN Reason: Protocol Stop: 06/15/16 13:01 Last Admin: 06/07/16 05:14 Dose: 100 mls/hr Dexmedetomidine HCl (Precedex 4 Mcg/Ml (100 Ml)) 100 mls @ 3.856 mls/hr IV .Q24H PRN; Protocol; 0.2 MCG/KG/HR PRN Reason: Agitation Last Titration: 06/07/16 07:00 Dose: 0.3 mcg/kg/hr Vasopressin 20 units/ Sodium (Chloride) 101 mls @ 9.09 mls/hr IV .Q11H7M YOLANDA; 0.03 U/MIN PRN Reason: Protocol Last Admin: 06/07/16 10:08 Dose: 9.09 mls/hr Norepinephrine Bitartrate 32 (mg/ Sodium Chloride) 1,032 mls @ 96.75 mls/hr IV .[id number] PRN; Protocol; 50 MCG/MIN PRN Reason: MAP<65 Last Admin: 06/07/16 10:03 Dose: 96.75 mls/hr Sodium Chloride (Sodium Chloride 0.9%) 1,000 mls @ 100 mls/hr IV .Q10H STA Stop: 06/07/16 20:54 Morphine Sulfate (Morphine) 2 mg IVP Q4 PRN PRN Reason: Pain, moderate (4-7) Results - Vital Signs Recent Vital Signs: Last Vital Signs Temp 99.9 F H 06/07/16 08:00 Pulse 77 06/07/16 10:08 Resp 23 06/07/16 10:27 BP 107/75 06/07/16 10:08 Pulse Ox 100 06/07/16 09:30 - Labs Result Diagrams: 06/07/16 07:11 06/07/16 07:11 Labs: Laboratory Results - last 24 hr 06/06/16 06/06/16 06/06/16 15:45 16:00 18:55 WBC RBC Hgb Hct MCV MCH MCHC RDW Plt Count MPV Neutrophils % (Manual) Band Neutrophils % Lymphocytes % (Manual) Monocytes % (Manual) Metamyelocytes % Myelocytes % Platelet Evaluation pCO2 33 L pO2 118.0 H 32 HCO3 13.2 L ABG pH 7.21 L ABG Total CO2 14.2 L ABG O2 Saturation 99.1 H ABG O2 Content ABG Base Excess -13.6 L ABG Hemoglobin ABG Carboxyhemoglobin POC ABG HHb (Measured) ABG Methemoglobin ABG O2 Capacity ABG Potassium 4.0 VBG pH 7.20 L VBG pCO2 49.0 VBG HCO3 19.2 L VBG Total CO2 20.7 L VBG O2 Sat (Calc) 55.7 VBG Base Excess -8.9 L VBG Potassium 3.5 L Hgb O2 Saturation Sodium 144.0 144.0 Chloride 110.0 H 112.0 H Glucose 264 H 184 H Lactate 11.0 H* 7.0 H* Mechanical Rate 20 FiO2 100.0 21.0 Tidal Volume 400 PEEP 5 Potassium Carbon Dioxide Anion Gap BUN Creatinine Est GFR ( Amer) Est GFR (Non-Af Amer) Random Glucose Lactic Acid 9.4 H* Calcium Phosphorus Magnesium Total Bilirubin Direct Bilirubin AST ALT Alkaline Phosphatase Total Protein Albumin Globulin Albumin/Globulin Ratio Arterial Blood Potassium 4.0 Venous Blood Potassium 3.5 L 06/06/16 06/07/16 06/07/16 21:40 06:28 07:11 WBC 26.9 H* D RBC 4.28 Hgb 13.8 L Hct 38.6 L MCV 90.2 MCH 32.2 MCHC 35.8 RDW 14.6 H Plt Count 79 L MPV 11.4 H Neutrophils % (Manual) 79 H Band Neutrophils % 9 H Lymphocytes % (Manual) 3 L Monocytes % (Manual) 4 Metamyelocytes % 4 Myelocytes % 1 Platelet Evaluation Low pCO2 26 L pO2 35 177.0 H HCO3 11.1 L ABG pH 7.24 L ABG Total CO2 11.9 L ABG O2 Saturation 100.3 H ABG O2 Content 18.2 ABG Base Excess -14.6 L ABG Hemoglobin 13.0 ABG Carboxyhemoglobin 2.0 H POC ABG HHb (Measured) -0.3 L ABG Methemoglobin 0.8 ABG O2 Capacity 18.1 ABG Potassium VBG pH 7.23 L VBG pCO2 37.0 L VBG HCO3 15.5 L VBG Total CO2 VBG O2 Sat (Calc) 66.6 H VBG Base Excess -11.3 L VBG Potassium Hgb O2 Saturation 97.4 Sodium 138 Chloride 109 H Glucose Lactate Mechanical Rate FiO2 80.0 Tidal Volume PEEP Potassium 4.1 Carbon Dioxide 14 L Anion Gap 19 BUN 34 H Creatinine 1.3 Est GFR ( Amer) > 60 Est GFR (Non-Af Amer) 54 Random Glucose 249 H Lactic Acid 4.9 H* Calcium 7.2 L Phosphorus 3.8 Magnesium 1.4 L Total Bilirubin 10.2 H Direct Bilirubin AST 181 H ALT 326 H Alkaline Phosphatase 90 Total Protein 5.0 L Albumin 2.7 L Globulin 2.4 Albumin/Globulin Ratio 1.1 Arterial Blood Potassium Venous Blood Potassium 06/07/16 07:30 WBC RBC Hgb Hct MCV MCH MCHC RDW Plt Count MPV Neutrophils % (Manual) Band Neutrophils % Lymphocytes % (Manual) Monocytes % (Manual) Metamyelocytes % Myelocytes % Platelet Evaluation pCO2 pO2 HCO3 ABG pH ABG Total CO2 ABG O2 Saturation ABG O2 Content ABG Base Excess ABG Hemoglobin ABG Carboxyhemoglobin POC ABG HHb (Measured) ABG Methemoglobin ABG O2 Capacity ABG Potassium VBG pH VBG pCO2 VBG HCO3 VBG Total CO2 VBG O2 Sat (Calc) VBG Base Excess VBG Potassium Hgb O2 Saturation Sodium Chloride Glucose Lactate Mechanical Rate FiO2 Tidal Volume PEEP Potassium Carbon Dioxide Anion Gap BUN Creatinine Est GFR ( Amer) Est GFR (Non-Af Amer) Random Glucose Lactic Acid Calcium Phosphorus Magnesium Total Bilirubin Direct Bilirubin 8.2 H AST ALT Alkaline Phosphatase Total Protein Albumin Globulin Albumin/Globulin Ratio Arterial Blood Potassium Venous Blood Potassium Attending/Attestation - Attestation I have personally seen and examined this patient.: Yes I have fully participated in the care of the patient.: Yes I have reviewed all pertinent clinical information: Yes Notes (Text): 06/07/16 13:02 Patient seen nad examined with Gi fellow on rounds today in MICU. 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 Now intubated in MICU on two pressors for septic shock likely due to acalculous cholecystitis. CT A/P distended and thickened gallbladder, and pericholecystic fluid. Will need emergent cholecystostomy tube with IR and surgical evaluation for possible CCY. Broad spectrum antibiotics. Discussed with at the bedside- no role for endoscopic decompression as there are no gallstones in CBD. unable to get MRCP due to hemodynamic instability. Follow blood and urine cultures. Hepatitis serologies are negative. Rest of plan as per MICU, ID and surgical team.
[2016-06-07 07:46] LABS: ALB/GLOB RATIO 1.1 (1.1-1.8); ALKALINE PHOSPHATASE 90 U/L (38-133); ALT/SGPT 326 U/L (7-56); AST/SGOT 181 U/L (15-59); BILIRUBIN,TOTAL 10.2 mg/dL (0.2-1.3); BLOOD UREA NITROGEN 34 mg/dL (7-21); CALCIUM 7.2 mg/dL (8.4-10.5); CARBON DIOXIDE 14 mmol/L (21-33); CHLORIDE 109 mmol/L (98-107); GFR AFRICAN-AMERICAN > 60; GLUCOSE,RANDOM 249 mg/dL (70-110); MAGNESIUM 1.4 mg/dL (1.7-2.2); PHOSPHOROUS 3.8 mg/dL (2.5-4.5); POTASSIUM 4.1 mmol/L (3.6-5.0); SODIUM 138 mmol/L (132-148)
[2016-06-07 07:56] LABS: ADD MANUAL DIFF? YES; WHITE BLOOD COUNT 26.9 10^3/ul (4.5-11.0)
[2016-06-07] MEDS ORDERED: SODIUM CHLORIDE 0.9% IV PRN (08:04)
[2016-06-07] MEDS ORDERED: NOREPINEPHRINE IV PRN (08:04)
[2016-06-07 08:13] LABS: BAND 9 % (0-2); PLATELET ESTIMATE LOW (NORMAL)
[2016-06-07 08:17] LABS: METAMYELOCYTE 4 %; MYELOCYTE 1 %; NEUTROPHIL 79 % (50.0-70.0)
--- NOTE | 2016-06-07 09:19 | RAD ---
HISTORY: confirmation central line placement COMPARISON: Chest x-ray performed 06/06/16 TECHNIQUE: Chest, one view. FINDINGS: Endotracheal tube terminates approximately 3.9 cm above the level the christiano. Nasogastric tube extends the expected location of the stomach, distal tip excluded from view. Right IJ approach central venous catheter terminates at the expected location of the SVC. LUNGS: Left lower lobe atelectasis or infiltrate. Discoid atelectasis, right middle lobe. Please note that chest x-ray has limited sensitivity for the detection of pulmonary masses. PLEURA: No significant pleural effusion identified. No definite pneumothorax . CARDIOVASCULAR: Mild cardiomegaly. Atherosclerotic calcification of the aorta. OSSEOUS STRUCTURES: Osseous demineralization. Degenerative changes of the spine. VISUALIZED UPPER ABDOMEN: Unremarkable. OTHER FINDINGS: None. IMPRESSION: Endotracheal tube terminates approximately 3.9 cm above the level the christiano. Nasogastric tube extends the expected location of the stomach, distal tip excluded from view. Right IJ approach central venous catheter terminates at the expected location of the SVC. Left lower lobe atelectasis or infiltrate. Discoid atelectasis, right middle lobe.
--- NOTE | 2016-06-07 09:28 | CARD ---
APPROVED REPORT EKG Measurement Heart [id number] <Conclusion> Normal sinus rhythm NSSTW changes No change
--- NOTE | 2016-06-07 09:38 | CP.PCM.PN ---
Subjective - Date & Time of Evaluation Date of Evaluation: 06/07/16 Time of Evaluation: 09:36 - Subjective Subjective: Surgery: Dr. Krishnamurthy Pt seen and examined. Intubated, on pressors x 2. Unresponsive. Objective - Vital Signs/Intake and Output Vital Signs (last 24 hours): Temp Pulse Resp BP Pulse Ox 99.9 F H 68 24 119/67 100 06/07/16 08:00 06/07/16 08:00 06/07/16 08:11 06/07/16 07:45 06/07/16 07:48 Intake and Output: 06/07/16 06/07/16 06:59 18:59 Intake Total 1000 3042.3 Output Total 175 Balance 1000 2867.3 - Medications Medications: Current Medications Acetaminophen (Tylenol 325mg Tab) 650 mg PO Q8 PRN PRN Reason: Fever >100.4 F Last Admin: 06/06/16 15:55 Dose: 650 mg Meropenem 1 gm/ Sodium (Chloride) 100 mls @ 100 mls/hr IVPB Q8 YOLANDA PRN Reason: Protocol Stop: 06/15/16 13:01 Last Admin: 06/07/16 05:14 Dose: 100 mls/hr Dexmedetomidine HCl (Precedex 4 Mcg/Ml (100 Ml)) 100 mls @ 3.856 mls/hr IV .Q24H PRN; Protocol; 0.2 MCG/KG/HR PRN Reason: Agitation Last Titration: 06/07/16 07:00 Dose: 0.3 mcg/kg/hr Vasopressin 20 units/ Sodium (Chloride) 101 mls @ 9.09 mls/hr IV .Q11H7M YOLANDA; 0.03 U/MIN PRN Reason: Protocol Last Admin: 06/06/16 23:15 Dose: 9.09 mls/hr Sodium Chloride (Sodium Chloride 0.9%) 1,000 mls @ 100 mls/hr IV .Q10H YOLANDA Last Admin: 06/06/16 22:30 Dose: 100 mls/hr Norepinephrine Bitartrate 32 (mg/ Sodium Chloride) 1,032 mls @ 96.75 mls/hr IV .[id number] PRN; Protocol; 50 MCG/MIN PRN Reason: MAP<65 Morphine Sulfate (Morphine) 2 mg IVP Q4 PRN PRN Reason: Pain, moderate (4-7) - Labs Labs: 06/07/16 07:11 06/07/16 07:11 PT 11.0 Seconds (9.9-11.8) 06/06/16 07:48 INR 1.02 (0.93-1.08) 06/06/16 07:48 APTT 22.9 Seconds (23.7-30.8) L 06/06/16 07:48 - Constitutional Appears: Chronically Ill - Head Exam Head Exam: ATRAUMATIC, NORMOCEPHALIC - Respiratory Exam Additional comments: intubated - GI/Abdominal Exam GI & Abdominal Exam: Distended. absent: Firm, Guarding, Rigid, Tenderness - Extremities Exam Extremities Exam: absent: Calf Tenderness, Pedal Edema - Neurological Exam Neurological Exam: absent: Alert, Awake Assessment and Plan - Assessment and Plan (Free Text) Assessment: 75M w. sepsis likely 2/2 cholecystitis vs cholangitis -HIDA and abd U/S pending -Recommend cholecystostomy tube, Dr. Levy has been consulted -c/w abx -no plans for surgery at this time as pt is too unstable -will follow closely -d/w Dr. Raghu Shaver PGY2
[2016-06-07] MEDS ORDERED: Sodium Chloride 0.9% 100 ML IV SCH (10:15)
[2016-06-07] MEDS ORDERED: Sodium Chloride 0.9% 1,000 ML IV STA ×2 (10:50→10:55)
[2016-06-07] MEDS: Dexmedetomidine HCl 4mcg/ml 100 ML IV PRN ×3 (11:00→18:07)
--- NOTE | 2016-06-07 11:14 | PN ---
DATE: 06/07/2016 SUBJECTIVE: The patient seen earlier this morning in 128, bed 7. The patient is intubated, on a ventilator, on pressors, unresponsive. Temperature is in a downward t rend. PHYSICAL EXAMINATION: VITAL SIGNS: Temperature is 99.9, T-max 100.9, blood pressure is 107/70, respiratory rate on a vent 24 respiratory rate with a heart rate of 77. HEENT: Reveals the ET tube to be in place. NECK: Supple. LUNGS: Have decreased breath sounds. HEART: Normal S1, S2. ABDOMEN: Has mild tenderness; however, no rebound, no guarding there is noted. LABORATORY DATA: Reveals a white count of 26,000, hemoglobin of 13, platelets of 79. Coagulation is noted. The patient does have 9% bandemia and a white count of 26,000, 79% polys. Blood gases are r eviewed. BUN is 34, creatinine of 1.3 with a lactic acid of 9.4. This morning, it is down to 4.9. LFTs are elevated. Urinalysis is noted, 0-2 WBCs. Blood cultures are no growth. Urine cultures no growth. Chest x-ray, left lower lobe atelectasis or infiltrate. note is reviewed. Review of the medications reveals the patient to be on Diprivan and also patient is on meropenem. Th e patient is also on pressors and Levophed at 32 mg per new consultation is also noted. ASSESSMENT AND PLAN: A 75-year-old male with history of hemolytic anemia, Alzheimer dementia, prosta te cancer, history of depression, history of bowel obstruction. In February, had Escherichia coli ba cteremia, most likely biliary tree in origin, also had Klebsiella urinary tract infection, admitted n ow with patient on this admission, now with patient with septic shock, respiratory failure, intubated on a ventilator, gastrointestinal as the source and concerned about ascending cholangitis versus acu te cholecystitis. The patient's blood cultures are reported to be negative. Urine cultures are repo rted to be negative. Currently on meropenem. Gastrointestinal and surgery are on the case and possi ble interventional radiology cholecystotomy tube if possible by Dr. Janusz Levy. Overall, prognosis quite poor for this patient on meropenem. Padilla Goode MD cc: [id number] TT: 06/07/2016 11:13:40 Confirmation # [id number] Dictation # [id number] mn
[2016-06-07] MEDS ORDERED: Fentanyl 1000mcg/100ml NS 100 ML IV PRN (11:33)
--- NOTE | 2016-06-07 11:55 | PN ---
DATE: 06/07/2016 The patient seen and examined and currently is now on the ICU, intubated, on pressors. Spoke with [facility] ICU doctor as far as further treatment on this patient. At this point, patient is not in acute dis tress, but he is intubated, so unable to get a full assessment on this patient. PHYSICAL EXAMINATION: VITAL SIGNS: Blood pressure is 107/75, pulse rate of 77, O2 saturation is 100% on 80% FiO2. HEENT: Normocephalic, atraumatic. Pale conjunctivae. Positive for ET tube in place. CARDIOVASCULAR: Regular rate and rhythm. S1, S2 appreciated. No S3 noted. LUNGS: Bilateral air entry is positive with decrease at the periphery. ABDOMEN: Soft compared to yesterday. There is no rigidity that I am noticing; however, bowel sounds are decreased. EXTREMITIES: Peripheral pulses +2, no pitting edema. LABORATORIES: WBCs have increased to 26.9, hemoglobin of 13.8, hematocrit of 38.6, platelets of 79. Chemistry within normal limits except for a chloride of 109 with a bicarbonate of 14 now, creatinine is 1.3. Lactic acid has decreased to 4.9. ASSESSMENT: 1. Septic shock. 2. Cholecystitis. 3. Anemia. 4. Prostate cancer in the past. 5. Diverticulitis. PLAN: At this time, we will continue IV fluids on this patient as well as IV pressors. Currently, i s off propofol. Did note the evaluation done by GI as well as surgery as well as interventional radi ology. He will be evaluated a little later by the interventional radiologist for possible cholecysto stomy tube. At this point, patient is intubated, on pressors as well as IV fluids and we will follow very closely. Stepan Coates MD cc: [id number] TT: 06/07/2016 11:54:35 Confirmation # [id number] Dictation # [id number]
[2016-06-07] MEDS ORDERED: Propofol 10 mg/ml Inj (20 ML) IVP ONE ×2 (12:10→12:40)
--- NOTE | 2016-06-07 12:12 | RAD ---
HISTORY: ETT COMPARISON: Chest x-ray performed 06/06/16 TECHNIQUE: Chest, one view. FINDINGS: Distal tip of the endotracheal tube terminates approximately 4 cm. Right IJ approach central venous catheter terminates in the expected location of the SVC. Nasogastric tube extends expected location of the stomach. LUNGS: Left lower lobe atelectasis or infiltrate. Discoid atelectasis, right middle lobe. Please note that chest x-ray has limited sensitivity for the detection of pulmonary masses. PLEURA: No significant pleural effusion identified. No definite pneumothorax . CARDIOVASCULAR: Heart size appears top normal. OSSEOUS STRUCTURES: Degenerative changes. VISUALIZED UPPER ABDOMEN: Unremarkable. OTHER FINDINGS: None. IMPRESSION: Distal tip of the endotracheal tube terminates approximately 4 cm. Right IJ approach central venous catheter terminates in the expected location of the SVC. Nasogastric tube extends expected location of the stomach. Left lower lobe atelectasis or infiltrate. Discoid atelectasis, right middle lobe.
--- NOTE | 2016-06-07 15:12 | CP.CCUPN ---
<ChrisfadumoZulema choi - Last Filed: 06/07/16 18:43> CCU Subjective - Physician Review Events Since Last Encounter (Free Text): 06/07/16 08:43 Patient seen and examined bedside. Had right IJ placed overnight, started on Levophed and Vasopressin. Patient still on Precedex, occasionally agitated, added PRN Fentanyl this morning. 06/07/16 14:34 Cholecystostomy tube placed by IR under CT guidance. No complications. FiO2 down to 70% from 80% this AM. Critical Care Time Spent (in minutes): 60 CCU Objective - Vital Signs / Intake & Output Vital Signs (Last 4 hours): Vital Signs Temp Pulse Resp BP Pulse Ox 06/07/16 13:45 65 29 H 137/75 100 06/07/16 13:40 62 27 H 86 L 06/07/16 13:39 62 28 H 145/91 H 97 06/07/16 13:30 85 28 H 76/61 L 79 L 06/07/16 13:15 68 23 144/82 98 06/07/16 13:00 62 26 H 136/81 98 06/07/16 12:45 60 26 H 117/82 100 06/07/16 12:41 59 L 26 H 99 06/07/16 12:30 60 26 H 117/77 100 06/07/16 12:26 61 26 H 100 06/07/16 12:15 61 24 134/81 100 06/07/16 12:10 63 25 H 100 06/07/16 12:00 100 F H 65 25 H 134/83 100 Intake and Output (Last 8hrs): Intake & Output 06/07/16 06/07/16 06/07/16 06:59 14:59 22:59 Intake Total 3042.3 Output Total 175 Balance 2867.3 Weight 170 lb 167 lb 1.6 oz Intake: IV 3042.3 Right Internal Jugular 1072 IVF 900 Saline bolus 1000 Precedex 70 Oral 0 Output: Urine 175 Urethral (Tong) 175 Other: Voiding Method Indwelling Catheter Indwelling Catheter # Bowel Movements 0 - Physical Exam Head: Positive for: Atraumatic, Normocephalic Pupils: Positive for: PERRL Extroacular Muscles: Positive for: EOMI Conjunctiva: Positive for: Normal Mouth: Positive for: Moist Mucous Membranes Pharnyx: Negative for: ERYTHEMA, EXUDATE, TONSILS ENLARGED Nose (External): Positive for: Other (necrotic skin graft) Respiratory/Chest: Positive for: Clear to Auscultation, Good Air Exchange, Decreased Breath Sounds. Negative for: Respiratory Distress, Accessory Muscle Use Cardiovascular: Positive for: Regular Rate and Rhythm, Normal S1, S2. Negative for: Murmurs Abdomen: Positive for: Tenderness (rigid surgical abdomen), Distention (Abdomen distended tympanitic and quiet with surgical scar), Guarding, Hernias ( Incisional hernia easily reduced; general moderate tenderness with involuntary guarding and no rebound), Other. Negative for: Normal Bowel Sounds, Rebound Upper Extremity: Positive for: Normal Inspection. Negative for: Cyanosis, Edema Lower Extremity: Positive for: Normal Inspection. Negative for: Edema Neurological: Positive for: GCS=15, CN II-XII Intact, Speech Normal, Motor Func Grossly Intact Skin: Positive for: Rashes, Other (generalized tinea infection ) Psychiatric: Negative for: Alert, Oriented x 3, Normal Insight - Medications Active Medications: Active Medications Generic Name Dose Route Start Last Admin Trade Name Freq PRN Reason Stop Dose Admin Acetaminophen 650 mg 06/06/16 15:35 06/06/16 15:55 Tylenol 325mg Tab PO 650 mg Q8 PRN Administration Fever >100.4 F Fentanyl 100 mcg 06/07/16 11:35 Fentanyl IVP Q1 PRN Pain, severe (8-10) Fentanyl 75 mcg 06/07/16 11:36 Fentanyl IVP Q1 PRN Pain, moderate (4-7) Meropenem 1 gm/ Sodium 100 mls @ 100 mls/hr 06/06/16 13:00 06/07/16 13:30 Chloride IVPB 06/15/16 13:01 100 mls/hr Q8 YOLANDA Administration Protocol Dexmedetomidine HCl 100 mls @ 3.856 mls/hr 06/06/16 14:50 06/07/16 14:38 Precedex 4 Mcg/Ml (100 Ml) IV 28.917 mls/hr .Q24H PRN Administration Agitation Protocol 0.2 MCG/KG/HR Vasopressin 20 units/ Sodium 101 mls @ 9.09 mls/hr 06/06/16 21:30 06/07/16 10: 08 Chloride IV 9.09 mls/hr .[id number] YOLANDA Administration Protocol 0.03 U/MIN Norepinephrine Bitartrate 32 1,032 mls @ 96.75 mls/hr 06/07/16 08:04 06/07/16 10:03 mg/ Sodium Chloride IV 96.75 mls/hr .[id number] PRN Administration MAP<65 Protocol 50 MCG/MIN Sodium Chloride 1,000 mls @ 100 mls/hr 06/07/16 10:55 06/07/16 13:29 Sodium Chloride 0.9% IV 06/07/16 20:54 100 mls/hr .Q10H STA Administration Morphine Sulfate 2 mg 06/06/16 11:50 Morphine IVP Q4 PRN Pain, moderate (4-7) - Patient Studies Lab Studies: Microbiology Studies 06/06/16 15:40 Urine Culture - Preliminary Urine,Tong No growth. Lab Studies 06/07/16 06/07/16 06/07/16 Range/Units 07:30 07:11 06:28 WBC 26.9 H* D (4.5-11.0) 10^3/ul RBC 4.28 (3.5-6.1) 10^6/uL Hgb 13.8 L (14.0-18.0) gm/dL Hct 38.6 L (42.0-52.0) % MCV 90.2 (80.0-105.0) fL MCH 32.2 (25.0-35.0) pg MCHC 35.8 (31.0-37.0) g/dl RDW 14.6 H (11.5-14.5) % Plt Count 79 L (120.0-450.0) 10^3/uL MPV 11.4 H (7.0-11.0) fl Neutrophils % (Manual) 79 H (50.0-70.0) % Band Neutrophils % 9 H (0-2) % Lymphocytes % (Manual) 3 L (22.0-35.0) % Monocytes % (Manual) 4 (1.0-6.0) % Metamyelocytes % 4 % Myelocytes % 1 % Platelet Evaluation Low (NORMAL) pCO2 26 L (35-45) mm/Hg pO2 177.0 H (80-100) mm/Hg HCO3 11.1 L (21-28) mmol/L ABG pH 7.24 L (7.35-7.45) ABG Total CO2 11.9 L (22-28) mmol.L ABG O2 Saturation 100.3 H (95-98) % ABG O2 Content 18.2 (15-23) ML/dl ABG Base Excess -14.6 L (-2.0-3.0) mmol/L ABG Hemoglobin 13.0 (11.7-17.4) g/dL ABG Carboxyhemoglobin 2.0 H (0.5-1.5) % POC ABG HHb (Measured) -0.3 L (0-5) % ABG Methemoglobin 0.8 (0.0-3.0) % ABG O2 Capacity 18.1 (16-24) mL/dl ABG Potassium (3.6-5.2) mmol/L VBG pH (7.32-7.43) VBG pCO2 (40-60) VBG HCO3 (21-28) mmol/l VBG Total CO2 (22-28) mmol.L VBG O2 Sat (Calc) (40-65) % VBG Base Excess (0.0-2.0) mmol/L VBG Potassium (3.6-5.2) mmol/L Hgb O2 Saturation 97.4 (95.0-98.0) % Glucose (75-110) mg/dl Lactate (0.7-2.1) mmol/L Mechanical Rate FiO2 80.0 % Tidal Volume PEEP Sodium 138 (132-148) mmol/L Potassium 4.1 (3.6-5.0) mmol/L Chloride 109 H (98-107) mmol/L Carbon Dioxide 14 L (21-33) mmol/L Anion Gap 19 (10-20) BUN 34 H (7-21) mg/dL Creatinine 1.3 (0.5-1.4) mg/dL Est GFR ( Amer) > 60 Est GFR (Non-Af Amer) 54 Random Glucose 249 H (70-110) mg/dL Lactic Acid 4.9 H* (0.7-2.1) mmol/L Calcium 7.2 L (8.4-10.5) mg/dL Phosphorus 3.8 (2.5-4.5) mg/dL Magnesium 1.4 L (1.7-2.2) mg/dL Total Bilirubin 10.2 H (0.2-1.3) mg/dL Direct Bilirubin 8.2 H (0.0-0.4) mg/dL AST 181 H (15-59) U/L ALT 326 H (7-56) U/L Alkaline Phosphatase 90 (38-133) U/L Total Protein 5.0 L (5.8-8.3) g/dL Albumin 2.7 L (3.0-4.8) g/dL Globulin 2.4 gm/dL Albumin/Globulin Ratio 1.1 (1.1-1.8) Arterial Blood Potassium (3.6-5.2) mmol/L Venous Blood Potassium (3.6-5.2) mmol/L 06/06/16 06/06/16 06/06/16 Range/Units 21:40 18:55 16:00 WBC (4.5-11.0) 10^3/ul RBC (3.5-6.1) 10^6/uL Hgb (14.0-18.0) gm/dL Hct (42.0-52.0) % MCV (80.0-105.0) fL MCH (25.0-35.0) pg MCHC (31.0-37.0) g/dl RDW (11.5-14.5) % Plt Count (120.0-450.0) 10^3/uL MPV (7.0-11.0) fl Neutrophils % (Manual) (50.0-70.0) % Band Neutrophils % (0-2) % Lymphocytes % (Manual) (22.0-35.0) % Monocytes % (Manual) (1.0-6.0) % Metamyelocytes % % Myelocytes % % Platelet Evaluation (NORMAL) pCO2 33 L (35-45) mm/Hg pO2 35 32 118.0 H (80-100) mm/Hg HCO3 13.2 L (21-28) mmol/L ABG pH 7.21 L (7.35-7.45) ABG Total CO2 14.2 L (22-28) mmol.L ABG O2 Saturation 99.1 H (95-98) % ABG O2 Content (15-23) ML/dl ABG Base Excess -13.6 L (-2.0-3.0) mmol/L ABG Hemoglobin (11.7-17.4) g/dL ABG Carboxyhemoglobin (0.5-1.5) % POC ABG HHb (Measured) (0-5) % ABG Methemoglobin (0.0-3.0) % ABG O2 Capacity (16-24) mL/dl ABG Potassium 4.0 (3.6-5.2) mmol/L VBG pH 7.23 L 7.20 L (7.32-7.43) VBG pCO2 37.0 L 49.0 (40-60) VBG HCO3 15.5 L 19.2 L (21-28) mmol/l VBG Total CO2 20.7 L (22-28) mmol.L VBG O2 Sat (Calc) 66.6 H 55.7 (40-65) % VBG Base Excess -11.3 L -8.9 L (0.0-2.0) mmol/L VBG Potassium 3.5 L (3.6-5.2) mmol/L Hgb O2 Saturation (95.0-98.0) % Glucose 184 H 264 H (75-110) mg/dl Lactate 7.0 H* 11.0 H* (0.7-2.1) mmol/L Mechanical Rate 20 FiO2 21.0 100.0 % Tidal Volume 400 PEEP 5 Sodium 144.0 144.0 (132-148) mmol/L Potassium (3.6-5.0) mmol/L Chloride 112.0 H 110.0 H (98-107) mmol/L Carbon Dioxide (21-33) mmol/L Anion Gap (10-20) BUN (7-21) mg/dL Creatinine (0.5-1.4) mg/dL Est GFR ( Amer) Est GFR (Non-Af Amer) Random Glucose (70-110) mg/dL Lactic Acid (0.7-2.1) mmol/L Calcium (8.4-10.5) mg/dL Phosphorus (2.5-4.5) mg/dL Magnesium (1.7-2.2) mg/dL Total Bilirubin (0.2-1.3) mg/dL Direct Bilirubin (0.0-0.4) mg/dL AST (15-59) U/L ALT (7-56) U/L Alkaline Phosphatase (38-133) U/L Total Protein (5.8-8.3) g/dL Albumin (3.0-4.8) g/dL Globulin gm/dL Albumin/Globulin Ratio (1.1-1.8) Arterial Blood Potassium 4.0 (3.6-5.2) mmol/L Venous Blood Potassium 3.5 L (3.6-5.2) mmol/L / Range/Units 15:45 WBC (4.5-11.0) 10^3/ul RBC (3.5-6.1) 10^6/uL Hgb (14.0-18.0) gm/dL Hct (42.0-52.0) % MCV (80.0-105.0) fL MCH (25.0-35.0) pg MCHC (31.0-37.0) g/dl RDW (11.5-14.5) % Plt Count (120.0-450.0) 10^3/uL MPV (7.0-11.0) fl Neutrophils % (Manual) (50.0-70.0) % Band Neutrophils % (0-2) % Lymphocytes % (Manual) (22.0-35.0) % Monocytes % (Manual) (1.0-6.0) % Metamyelocytes % % Myelocytes % % Platelet Evaluation (NORMAL) pCO2 (35-45) mm/Hg pO2 (80-100) mm/Hg HCO3 (21-28) mmol/L ABG pH (7.35-7.45) ABG Total CO2 (22-28) mmol.L ABG O2 Saturation (95-98) % ABG O2 Content (15-23) ML/dl ABG Base Excess (-2.0-3.0) mmol/L ABG Hemoglobin (11.7-17.4) g/dL ABG Carboxyhemoglobin (0.5-1.5) % POC ABG HHb (Measured) (0-5) % ABG Methemoglobin (0.0-3.0) % ABG O2 Capacity (16-24) mL/dl ABG Potassium (3.6-5.2) mmol/L VBG pH (7.32-7.43) VBG pCO2 (40-60) VBG HCO3 (21-28) mmol/l VBG Total CO2 (22-28) mmol.L VBG O2 Sat (Calc) (40-65) % VBG Base Excess (0.0-2.0) mmol/L VBG Potassium (3.6-5.2) mmol/L Hgb O2 Saturation (95.0-98.0) % Glucose (75-110) mg/dl Lactate (0.7-2.1) mmol/L Mechanical Rate FiO2 % Tidal Volume PEEP Sodium (132-148) mmol/L Potassium (3.6-5.0) mmol/L Chloride (98-107) mmol/L Carbon Dioxide (21-33) mmol/L Anion Gap (10-20) BUN (7-21) mg/dL Creatinine (0.5-1.4) mg/dL Est GFR ( Amer) Est GFR (Non-Af Amer) Random Glucose (70-110) mg/dL Lactic Acid 9.4 H* (0.7-2.1) mmol/L Calcium (8.4-10.5) mg/dL Phosphorus (2.5-4.5) mg/dL Magnesium (1.7-2.2) mg/dL Total Bilirubin (0.2-1.3) mg/dL Direct Bilirubin (0.0-0.4) mg/dL AST (15-59) U/L ALT (7-56) U/L Alkaline Phosphatase (38-133) U/L Total Protein (5.8-8.3) g/dL Albumin (3.0-4.8) g/dL Globulin gm/dL Albumin/Globulin Ratio (1.1-1.8) Arterial Blood Potassium (3.6-5.2) mmol/L Venous Blood Potassium (3.6-5.2) mmol/L Laboratory Results - last 24 hr 06/06/16 06/06/16 06/06/16 15:45 16:00 18:55 WBC RBC Hgb Hct MCV MCH MCHC RDW Plt Count MPV Neutrophils % (Manual) Band Neutrophils % Lymphocytes % (Manual) Monocytes % (Manual) Metamyelocytes % Myelocytes % Platelet Evaluation pCO2 33 L pO2 118.0 H 32 HCO3 13.2 L ABG pH 7.21 L ABG Total CO2 14.2 L ABG O2 Saturation 99.1 H ABG O2 Content ABG Base Excess -13.6 L ABG Hemoglobin ABG Carboxyhemoglobin POC ABG HHb (Measured) ABG Methemoglobin ABG O2 Capacity ABG Potassium 4.0 VBG pH 7.20 L VBG pCO2 49.0 VBG HCO3 19.2 L VBG Total CO2 20.7 L VBG O2 Sat (Calc) 55.7 VBG Base Excess -8.9 L VBG Potassium 3.5 L Hgb O2 Saturation Sodium 144.0 144.0 Chloride 110.0 H 112.0 H Glucose 264 H 184 H Lactate 11.0 H* 7.0 H* Mechanical Rate 20 FiO2 100.0 21.0 Tidal Volume 400 PEEP 5 Potassium Carbon Dioxide Anion Gap BUN Creatinine Est GFR ( Amer) Est GFR (Non-Af Amer) Random Glucose Lactic Acid 9.4 H* Calcium Phosphorus Magnesium Total Bilirubin Direct Bilirubin AST ALT Alkaline Phosphatase Total Protein Albumin Globulin Albumin/Globulin Ratio Arterial Blood Potassium 4.0 Venous Blood Potassium 3.5 L 06/06/16 06/07/16 06/07/16 21:40 06:28 07:11 WBC 26.9 H* D RBC 4.28 Hgb 13.8 L Hct 38.6 L MCV 90.2 MCH 32.2 MCHC 35.8 RDW 14.6 H Plt Count 79 L MPV 11.4 H Neutrophils % (Manual) 79 H Band Neutrophils % 9 H Lymphocytes % (Manual) 3 L Monocytes % (Manual) 4 Metamyelocytes % 4 Myelocytes % 1 Platelet Evaluation Low pCO2 26 L pO2 35 177.0 H HCO3 11.1 L ABG pH 7.24 L ABG Total CO2 11.9 L ABG O2 Saturation 100.3 H ABG O2 Content 18.2 ABG Base Excess -14.6 L ABG Hemoglobin 13.0 ABG Carboxyhemoglobin 2.0 H POC ABG HHb (Measured) -0.3 L ABG Methemoglobin 0.8 ABG O2 Capacity 18.1 ABG Potassium VBG pH 7.23 L VBG pCO2 37.0 L VBG HCO3 15.5 L VBG Total CO2 VBG O2 Sat (Calc) 66.6 H VBG Base Excess -11.3 L VBG Potassium Hgb O2 Saturation 97.4 Sodium 138 Chloride 109 H Glucose Lactate Mechanical Rate FiO2 80.0 Tidal Volume PEEP Potassium 4.1 Carbon Dioxide 14 L Anion Gap 19 BUN 34 H Creatinine 1.3 Est GFR ( Amer) > 60 Est GFR (Non-Af Amer) 54 Random Glucose 249 H Lactic Acid 4.9 H* Calcium 7.2 L Phosphorus 3.8 Magnesium 1.4 L Total Bilirubin 10.2 H Direct Bilirubin AST 181 H ALT 326 H Alkaline Phosphatase 90 Total Protein 5.0 L Albumin 2.7 L Globulin 2.4 Albumin/Globulin Ratio 1.1 Arterial Blood Potassium Venous Blood Potassium 06/07/16 07:30 WBC RBC Hgb Hct MCV MCH MCHC RDW Plt Count MPV Neutrophils % (Manual) Band Neutrophils % Lymphocytes % (Manual) Monocytes % (Manual) Metamyelocytes % Myelocytes % Platelet Evaluation pCO2 pO2 HCO3 ABG pH ABG Total CO2 ABG O2 Saturation ABG O2 Content ABG Base Excess ABG Hemoglobin ABG Carboxyhemoglobin POC ABG HHb (Measured) ABG Methemoglobin ABG O2 Capacity ABG Potassium VBG pH VBG pCO2 VBG HCO3 VBG Total CO2 VBG O2 Sat (Calc) VBG Base Excess VBG Potassium Hgb O2 Saturation Sodium Chloride Glucose Lactate Mechanical Rate FiO2 Tidal Volume PEEP Potassium Carbon Dioxide Anion Gap BUN Creatinine Est GFR ( Amer) Est GFR (Non-Af Amer) Random Glucose Lactic Acid Calcium Phosphorus Magnesium Total Bilirubin Direct Bilirubin 8.2 H AST ALT Alkaline Phosphatase Total Protein Albumin Globulin Albumin/Globulin Ratio Arterial Blood Potassium Venous Blood Potassium Review of Systems - Review of Systems Systems not reviewed;Unavailable: Intubated Critical Care Progress Note - Ventilator Checklist PUD Prophalyxis: Yes DVT Prophylaxis: Yes - Vent Settings MODE:: PRVC - Nutrition Nutrition: Nutrition Category Date Time Status NPO Diet [DIET] Diets 06/06/16 Dinner Ordered Assessment/Plan - Assessment and Plan (Free Text) Assessment: 75 yo M w h/o SBO, MDS, gastritis, Alzheimer's dementia admitted with acute abdomen and vomiting 2/2 acute on chronic cholecystitis now s/p cholecystostomy tube. Plan: Neuro: Mental status at baseline, h/o Alzheimer's dementia, unable to provide history. Precedex drip, PRN fentanyl to maintain comfort and pain control Maintain normothermia CV: Continue vasopressors, titrate to maintain MAP>65 Pulm: VDRF day #2. Currently PRVC 400/26/70/5 Titrate FiO2 to maintain SpO2>90, PaO2>60 Protective lung ventilation strategy HOB>35 degrees Aspiration precautions GI: POD #0 s/p percutaneous cholecystostomy tube by IR. Output was bloody and purulent. Patient will keep tube for 4-6 weeks with BID flushes unless the gallbladder gets surgically removed earlier, as per IR recs CT A/P without contrast shows distended gallbladder with evidence of gallbladder wall thickening/mild pericholecystic fluid, no calcified gallstones , constipation, scattered prominent retroperitoneal and mesenteric LNs, mild mesenteric inflammatory stranding. Continue Meropenem US of the abdomen and HIDA scan unable to be done due due to patient instability Endo: No acute issues. Maintain euglycemia 140-180 Renal: DIDI Cr 1.3 from 0.9. Continue NS @150cc/hr Uremia slightly worse, 34 from 27. Continue to monitor renal function, I&Os ID: Septic shock 2/2 acute cholecystitis with significant leukocytosis 26.9, lactate down to 4.9. Continue to monitor Blood cultures significant for GNR in 2 of 2 bottles Continue Meropenem ID following Preliminary urine culture shows no growth Heme: Hb stable. No signs of bleeding. Continue to monitor. DVT/GI ppx: SQL, Pepcid, NPO - Date & Time Date: 06/07/16 Time: 18:49 <Dyllan Gusman MD H - Last Filed: 06/07/16 19:16> CCU Objective - Vital Signs / Intake & Output Vital Signs (Last 4 hours): Vital Signs Temp Pulse Resp BP Pulse Ox 06/07/16 18:17 105/63 06/07/16 16:41 71 27 H 06/07/16 16:40 72 26 H 06/07/16 16:39 70 26 H 06/07/16 16:38 70 25 H 06/07/16 16:30 69 24 113/61 98 06/07/16 16:15 71 23 113/69 99 06/07/16 16:00 100.1 F H 73 23 110/69 98 06/07/16 15:45 72 26 H 107/65 98 06/07/16 15:43 72 24 98 06/07/16 15:42 71 27 H 06/07/16 15:38 71 25 H 99 06/07/16 15:37 71 28 H 98 06/07/16 15:35 71 27 H 98 06/07/16 15:30 70 30 H 116/73 98 06/07/16 15:15 69 25 H 117/78 98 Intake and Output (Last 8hrs): Intake & Output 06/07/16 06/07/16 06/07/16 06:59 14:59 22:59 Intake Total 3042.3 2820 Output Total 175 800 Balance 2867.3 2019 Weight 170 lb 167 lb 1.6 oz Intake: IV 3042.3 2820 Right Internal Jugular 1072 520 IVF 900 1000 Saline bolus 1000 1000 Precedex 70 300 Oral 0 Output: Urine 175 600 Urethral (Tong) 175 600 Other 200 Other: Voiding Method Indwelling Catheter Indwelling Catheter # Bowel Movements 0 0 - Medications Active Medications: Active Medications Generic Name Dose Route Start Last Admin Trade Name Freq PRN Reason Stop Dose Admin Acetaminophen 650 mg 06/06/16 15:35 06/06/16 15:55 Tylenol 325mg Tab PO 650 mg Q8 PRN Administration Fever >100.4 F Enoxaparin Sodium 40 mg 06/08/16 10:00 Lovenox SC DAILY YOLANDA Protocol Famotidine 20 mg 06/08/16 10:00 Pepcid IVP DAILY [facility] Fentanyl 100 mcg 06/07/16 11:35 Fentanyl IVP Q1 PRN Pain, severe (8-10) Fentanyl 75 mcg 06/07/16 11:36 Fentanyl IVP Q1 PRN Pain, moderate (4-7) Meropenem 1 gm/ Sodium 100 mls @ 100 mls/hr 06/06/16 13:00 06/07/16 13:30 Chloride IVPB 06/15/16 13:01 100 mls/hr Q8 YOLANDA Administration Protocol Dexmedetomidine HCl 100 mls @ 3.856 mls/hr 06/06/16 14:50 06/07/16 18:07 Precedex 4 Mcg/Ml (100 Ml) IV 28.917 mls/hr .Q24H PRN Administration Agitation Protocol 0.2 MCG/KG/HR Vasopressin 20 units/ Sodium 101 mls @ 9.09 mls/hr 06/06/16 21:30 06/07/16 18: 17 Chloride IV 9.09 mls/hr .[id number] YOLANDA Administration Protocol 0.03 U/MIN Norepinephrine Bitartrate 32 1,032 mls @ 96.75 mls/hr 06/07/16 08:04 06/07/16 10:03 mg/ Sodium Chloride IV 96.75 mls/hr .[id number] PRN Administration MAP<65 Protocol 50 MCG/MIN Sodium Chloride 1,000 mls @ 100 mls/hr 06/07/16 19:01 Sodium Chloride 0.9% IV 06/11/16 22:59 .Q10H YOLANDA - Patient Studies Lab Studies: Microbiology Studies 06/06/16 14:10 MRSA Culture (Admit) - Final Nose MRSA NOT DETECTED 06/06/16 15:40 Urine Culture - Preliminary Urine,Tong No growth. Lab Studies 06/07/16 06/07/16 06/07/16 Range/Units 07:30 07:11 06:28 WBC 26.9 H* D (4.5-11.0) 10^3/ul RBC 4.28 (3.5-6.1) 10^6/uL Hgb 13.8 L (14.0-18.0) gm/dL Hct 38.6 L (42.0-52.0) % MCV 90.2 (80.0-105.0) fL MCH 32.2 (25.0-35.0) pg MCHC 35.8 (31.0-37.0) g/dl RDW 14.6 H (11.5-14.5) % Plt Count 79 L (120.0-450.0) 10^3/uL MPV 11.4 H (7.0-11.0) fl Neutrophils % (Manual) 79 H (50.0-70.0) % Band Neutrophils % 9 H (0-2) % Lymphocytes % (Manual) 3 L (22.0-35.0) % Monocytes % (Manual) 4 (1.0-6.0) % Metamyelocytes % 4 % Myelocytes % 1 % Platelet Evaluation Low (NORMAL) pCO2 26 L (35-45) mm/Hg pO2 177.0 H (80-100) mm/Hg HCO3 11.1 L (21-28) mmol/L ABG pH 7.24 L (7.35-7.45) ABG Total CO2 11.9 L (22-28) mmol.L ABG O2 Saturation 100.3 H (95-98) % ABG O2 Content 18.2 (15-23) ML/dl ABG Base Excess -14.6 L (-2.0-3.0) mmol/L ABG Hemoglobin 13.0 (11.7-17.4) g/dL ABG Carboxyhemoglobin 2.0 H (0.5-1.5) % POC ABG HHb (Measured) -0.3 L (0-5) % ABG Methemoglobin 0.8 (0.0-3.0) % ABG O2 Capacity 18.1 (16-24) mL/dl VBG pH (7.32-7.43) VBG pCO2 (40-60) VBG HCO3 (21-28) mmol/l VBG O2 Sat (Calc) (40-65) % VBG Base Excess (0.0-2.0) mmol/L Hgb O2 Saturation 97.4 (95.0-98.0) % FiO2 80.0 % Sodium 138 (132-148) mmol/L Potassium 4.1 (3.6-5.0) mmol/L Chloride 109 H (98-107) mmol/L Carbon Dioxide 14 L (21-33) mmol/L Anion Gap 19 (10-20) BUN 34 H (7-21) mg/dL Creatinine 1.3 (0.5-1.4) mg/dL Est GFR ( Amer) > 60 Est GFR (Non-Af Amer) 54 Random Glucose 249 H (70-110) mg/dL Lactic Acid 4.9 H* (0.7-2.1) mmol/L Calcium 7.2 L (8.4-10.5) mg/dL Phosphorus 3.8 (2.5-4.5) mg/dL Magnesium 1.4 L (1.7-2.2) mg/dL Total Bilirubin 10.2 H (0.2-1.3) mg/dL Direct Bilirubin 8.2 H (0.0-0.4) mg/dL AST 181 H (15-59) U/L ALT 326 H (7-56) U/L Alkaline Phosphatase 90 (38-133) U/L Total Protein 5.0 L (5.8-8.3) g/dL Albumin 2.7 L (3.0-4.8) g/dL Globulin 2.4 gm/dL Albumin/Globulin Ratio 1.1 (1.1-1.8) 06/06/16 Range/Units 21:40 WBC (4.5-11.0) 10^3/ul RBC (3.5-6.1) 10^6/uL Hgb (14.0-18.0) gm/dL Hct (42.0-52.0) % MCV (80.0-105.0) fL MCH (25.0-35.0) pg MCHC (31.0-37.0) g/dl RDW (11.5-14.5) % Plt Count (120.0-450.0) 10^3/uL MPV (7.0-11.0) fl Neutrophils % (Manual) (50.0-70.0) % Band Neutrophils % (0-2) % Lymphocytes % (Manual) (22.0-35.0) % Monocytes % (Manual) (1.0-6.0) % Metamyelocytes % % Myelocytes % % Platelet Evaluation (NORMAL) pCO2 (35-45) mm/Hg pO2 35 (80-100) mm/Hg HCO3 (21-28) mmol/L ABG pH (7.35-7.45) ABG Total CO2 (22-28) mmol.L ABG O2 Saturation (95-98) % ABG O2 Content (15-23) ML/dl ABG Base Excess (-2.0-3.0) mmol/L ABG Hemoglobin (11.7-17.4) g/dL ABG Carboxyhemoglobin (0.5-1.5) % POC ABG HHb (Measured) (0-5) % ABG Methemoglobin (0.0-3.0) % ABG O2 Capacity (16-24) mL/dl VBG pH 7.23 L (7.32-7.43) VBG pCO2 37.0 L (40-60) VBG HCO3 15.5 L (21-28) mmol/l VBG O2 Sat (Calc) 66.6 H (40-65) % VBG Base Excess -11.3 L (0.0-2.0) mmol/L Hgb O2 Saturation (95.0-98.0) % FiO2 % Sodium (132-148) mmol/L Potassium (3.6-5.0) mmol/L Chloride (98-107) mmol/L Carbon Dioxide (21-33) mmol/L Anion Gap (10-20) BUN (7-21) mg/dL Creatinine (0.5-1.4) mg/dL Est GFR ( Amer) Est GFR (Non-Af Amer) Random Glucose (70-110) mg/dL Lactic Acid (0.7-2.1) mmol/L Calcium (8.4-10.5) mg/dL Phosphorus (2.5-4.5) mg/dL Magnesium (1.7-2.2) mg/dL Total Bilirubin (0.2-1.3) mg/dL Direct Bilirubin (0.0-0.4) mg/dL AST (15-59) U/L ALT (7-56) U/L Alkaline Phosphatase (38-133) U/L Total Protein (5.8-8.3) g/dL Albumin (3.0-4.8) g/dL Globulin gm/dL Albumin/Globulin Ratio (1.1-1.8) Laboratory Results - last 24 hr 06/06/16 06/07/16 06/07/16 21:40 06:28 07:11 WBC 26.9 H* D RBC 4.28 Hgb 13.8 L Hct 38.6 L MCV 90.2 MCH 32.2 MCHC 35.8 RDW 14.6 H Plt Count 79 L MPV 11.4 H Neutrophils % (Manual) 79 H Band Neutrophils % 9 H Lymphocytes % (Manual) 3 L Monocytes % (Manual) 4 Metamyelocytes % 4 Myelocytes % 1 Platelet Evaluation Low pCO2 26 L pO2 35 177.0 H HCO3 11.1 L ABG pH 7.24 L ABG Total CO2 11.9 L ABG O2 Saturation 100.3 H ABG O2 Content 18.2 ABG Base Excess -14.6 L ABG Hemoglobin 13.0 ABG Carboxyhemoglobin 2.0 H POC ABG HHb (Measured) -0.3 L ABG Methemoglobin 0.8 ABG O2 Capacity 18.1 VBG pH 7.23 L VBG pCO2 37.0 L VBG HCO3 15.5 L VBG O2 Sat (Calc) 66.6 H VBG Base Excess -11.3 L Hgb O2 Saturation 97.4 FiO2 80.0 Sodium 138 Potassium 4.1 Chloride 109 H Carbon Dioxide 14 L Anion Gap 19 BUN 34 H Creatinine 1.3 Est GFR ( Amer) > 60 Est GFR (Non-Af Amer) 54 Random Glucose 249 H Lactic Acid 4.9 H* Calcium 7.2 L Phosphorus 3.8 Magnesium 1.4 L Total Bilirubin 10.2 H Direct Bilirubin AST 181 H ALT 326 H Alkaline Phosphatase 90 Total Protein 5.0 L Albumin 2.7 L Globulin 2.4 Albumin/Globulin Ratio 1.1 06/07/16 07:30 WBC RBC Hgb Hct MCV MCH MCHC RDW Plt Count MPV Neutrophils % (Manual) Band Neutrophils % Lymphocytes % (Manual) Monocytes % (Manual) Metamyelocytes % Myelocytes % Platelet Evaluation pCO2 pO2 HCO3 ABG pH ABG Total CO2 ABG O2 Saturation ABG O2 Content ABG Base Excess ABG Hemoglobin ABG Carboxyhemoglobin POC ABG HHb (Measured) ABG Methemoglobin ABG O2 Capacity VBG pH VBG pCO2 VBG HCO3 VBG O2 Sat (Calc) VBG Base Excess Hgb O2 Saturation FiO2 Sodium Potassium Chloride Carbon Dioxide Anion Gap BUN Creatinine Est GFR ( Amer) Est GFR (Non-Af Amer) Random Glucose Lactic Acid Calcium Phosphorus Magnesium Total Bilirubin Direct Bilirubin 8.2 H AST ALT Alkaline Phosphatase Total Protein Albumin Globulin Albumin/Globulin Ratio Critical Care Progress Note - Nutrition Nutrition: Nutrition Category Date Time Status NPO Diet [DIET] Diets 06/06/16 Dinner Ordered Attending/Attestation - Attestation I have personally seen and examined this patient.: Yes I have fully participated in the care of the patient.: Yes I have reviewed all pertinent clinical information: Yes Notes (Text): 06/07/16 19:13 75 y/o M w/ septic shock secondary to probable cholangitis Pt overnight became severely hypotensive and was started on Levophed (40mcg) to keep MAP>65, Continious fluid bolus given > 6 L . Follow urine output. This morning labs show increased T Bili and lactate. Pt urgently went to IR w/ Dr Levy and C. tube was placed and Pus was drained . On Meropenum to treat Blood cx w/ Gram - likely from GB source. Poor prognosis VDRF, keep PAO2>55 and PH>7.3 cc time 65 min
[2016-06-07] MEDS ORDERED: Sodium Chloride 0.9% 1,000 ML IV SCH ×2 (19:00→19:01)
[2016-06-08] MEDS: Meropenem 1 GM in Sodium Chloride 0.9% 100 ML IVPB SCH ×3 (05:24→22:47)
[2016-06-08 06:12] LABS: HEMATOCRIT 36.8 % (42.0-52.0); MEAN CELL VOLUME 89.8 fL (80.0-105.0); MEAN CORPUSCULAR HGB CONC 35.6 g/dl (31.0-37.0); MEAN PLATELET VOLUME 11.3 fl (7.0-11.0); RED CELL DISTRIBUTION WIDTH 14.6 % (11.5-14.5); WHITE BLOOD COUNT 13.6 10^3/ul (4.5-11.0)
[2016-06-08 06:20] LABS: ALB/GLOB RATIO 1.1 (1.1-1.8); ALKALINE PHOSPHATASE 110 U/L (38-133); ALT/SGPT 220 U/L (7-56); AST/SGOT 99 U/L (15-59); BILIRUBIN,TOTAL 10.5 mg/dL (0.2-1.3); BLOOD UREA NITROGEN 32 mg/dL (7-21); CALCIUM 7.2 mg/dL (8.4-10.5); CARBON DIOXIDE 17 mmol/L (21-33); CHLORIDE 111 mmol/L (98-107); GFR AFRICAN-AMERICAN > 60; GLUCOSE,RANDOM 141 mg/dL (70-110); MAGNESIUM 1.6 mg/dL (1.7-2.2); PHOSPHOROUS 3.1 mg/dL (2.5-4.5); POTASSIUM 3.9 mmol/L (3.6-5.0); SODIUM 140 mmol/L (132-148); TOTAL PROTEIN 4.9 g/dL (5.8-8.3)
[2016-06-08 06:30] LABS: PLATELET COUNT 32 10^3/uL (120.0-450.0)
[2016-06-08 06:32] LABS: ADD MANUAL DIFF? YES
[2016-06-08 07:10] LABS: BAND 8 % (0-2); METAMYELOCYTE 2 %; MYELOCYTE 4 %; NEUTROPHIL 69 % (50.0-70.0); PLATELET ESTIMATE LOW (NORMAL)
--- NOTE | 2016-06-08 07:23 | CP.PCM.PN ---
Subjective - Date & Time of Evaluation Date of Evaluation: 06/08/16 Time of Evaluation: 06:40 - Subjective Subjective: Pt seen and evaluated at the bedside. Unresponsive. Intubated. Febrile at 1930 yesterday with Tmax of 101.8, and has since resolved. Objective - Vital Signs/Intake and Output Vital Signs (last 24 hours): Temp Pulse Resp BP Pulse Ox 99.5 F 57 L 26 H 128/76 96 06/08/16 04:00 06/08/16 03:30 06/08/16 01:30 06/08/16 03:30 06/08/16 03:30 - Medications Medications: Current Medications Acetaminophen (Tylenol 325mg Tab) 650 mg PO Q8 PRN PRN Reason: Fever >100.4 F Last Admin: 06/07/16 19:27 Dose: 650 mg Enoxaparin Sodium (Lovenox) 40 mg SC DAILY YOLANDA PRN Reason: Protocol Famotidine (Pepcid) 20 mg IVP DAILY [facility] Fentanyl (Fentanyl) 100 mcg IVP Q1 PRN PRN Reason: Pain, severe (8-10) Last Admin: 06/08/16 00:02 Dose: 100 mcg Fentanyl (Fentanyl) 75 mcg IVP Q1 PRN PRN Reason: Pain, moderate (4-7) Meropenem 1 gm/ Sodium (Chloride) 100 mls @ 100 mls/hr IVPB Q8 YOALNDA PRN Reason: Protocol Stop: 06/15/16 13:01 Last Admin: 06/08/16 05:24 Dose: 100 mls/hr Dexmedetomidine HCl (Precedex 4 Mcg/Ml (100 Ml)) 100 mls @ 3.856 mls/hr IV .Q24H PRN; Protocol; 0.2 MCG/KG/HR PRN Reason: Agitation Last Titration: 06/08/16 01:00 Dose: 1.5 mcg/kg/hr Vasopressin 20 units/ Sodium (Chloride) 101 mls @ 9.09 mls/hr IV .Q11H7M YOLANDA; 0.03 U/MIN PRN Reason: Protocol Last Admin: 06/08/16 03:00 Dose: 9.09 mls/hr Norepinephrine Bitartrate 32 (mg/ Sodium Chloride) 1,032 mls @ 96.75 mls/hr IV .[id number] PRN; Protocol; 50 MCG/MIN PRN Reason: MAP<65 Last Titration: 06/08/16 06:00 Dose: 10 mcg/min Sodium Chloride (Sodium Chloride 0.9%) 1,000 mls @ 100 mls/hr IV .Q10H YOLANDA Stop: 06/11/16 22:59 Last Admin: 06/08/16 01:00 Dose: 100 mls/hr - Labs Labs: 06/08/16 05:30 06/08/16 05:30 PT 11.0 Seconds (9.9-11.8) 06/06/16 07:48 INR 1.02 (0.93-1.08) 06/06/16 07:48 APTT 22.9 Seconds (23.7-30.8) L 06/06/16 07:48 - Additional Findings Additional findings: - Constitutional Appears: Chronically Ill - Head Exam Head Exam: ATRAUMATIC, NORMOCEPHALIC - Respiratory Exam Additional comments: intubated - GI/Abdominal Exam GI & Abdominal Exam: Distended. absent: Firm, Guarding, Rigid, Tenderness - Extremities Exam Extremities Exam: absent: Calf Tenderness, Pedal Edema - Neurological Exam Neurological Exam: absent: Alert, Awake Assessment and Plan - Assessment and Plan (Free Text) Plan: 75M w. sepsis likely 2/2 cholecystitis vs cholangitis -WBC from 26.6 yesterday to 13.6 today -AST/ALT was 181/326 yesterday and 99/220 today -HIDA pending -cholecystostomy tube placed on 06/07/2016 -c/w abx -no plans for surgery at this time as pt is too unstable -Recommend ERCP w/stent placement to GI -will continue to follow -Further Recs as per Dr. Raghu Ponce PGY1
--- NOTE | 2016-06-08 07:51 | CP.PCM.PN ---
<Rogelio Cast - Last Filed: 06/08/16 09:22> Subjective - Date & Time of Evaluation Date of Evaluation: 06/08/16 Time of Evaluation: 07:00 - Subjective Subjective: PGY4 GI Fellow Progress Note Patient seen and examined bedside this morning. The patient is intubated, sedated on Precedex and requiring pressor support currently. He had a PTC placed yesterday. No events overnight. 12 system ROS cannot be performed given current clinical condition. Objective - Vital Signs/Intake and Output Vital Signs (last 24 hours): Temp Pulse Resp BP Pulse Ox 99.5 F 57 L 26 H 128/76 96 06/08/16 04:00 06/08/16 03:30 06/08/16 01:30 06/08/16 03:30 06/08/16 03:30 - Medications Medications: Current Medications Acetaminophen (Tylenol 325mg Tab) 650 mg PO Q8 PRN PRN Reason: Fever >100.4 F Last Admin: 06/07/16 19:27 Dose: 650 mg Enoxaparin Sodium (Lovenox) 40 mg SC DAILY YOLANDA PRN Reason: Protocol Famotidine (Pepcid) 20 mg IVP DAILY [facility] Fentanyl (Fentanyl) 100 mcg IVP Q1 PRN PRN Reason: Pain, severe (8-10) Last Admin: 06/08/16 00:02 Dose: 100 mcg Fentanyl (Fentanyl) 75 mcg IVP Q1 PRN PRN Reason: Pain, moderate (4-7) Meropenem 1 gm/ Sodium (Chloride) 100 mls @ 100 mls/hr IVPB Q8 YOLANDA PRN Reason: Protocol Stop: 06/15/16 13:01 Last Admin: 06/08/16 05:24 Dose: 100 mls/hr Dexmedetomidine HCl (Precedex 4 Mcg/Ml (100 Ml)) 100 mls @ 3.856 mls/hr IV .Q24H PRN; Protocol; 0.2 MCG/KG/HR PRN Reason: Agitation Last Titration: 06/08/16 01:00 Dose: 1.5 mcg/kg/hr Vasopressin 20 units/ Sodium (Chloride) 101 mls @ 9.09 mls/hr IV .Q11H7M YOLANDA; 0.03 U/MIN PRN Reason: Protocol Last Admin: 06/08/16 03:00 Dose: 9.09 mls/hr Norepinephrine Bitartrate 32 (mg/ Sodium Chloride) 1,032 mls @ 96.75 mls/hr IV .[id number] PRN; Protocol; 50 MCG/MIN PRN Reason: MAP<65 Last Titration: 06/08/16 06:00 Dose: 10 mcg/min Sodium Chloride (Sodium Chloride 0.9%) 1,000 mls @ 100 mls/hr IV .Q10H YOLANDA Stop: 06/11/16 22:59 Last Admin: 06/08/16 01:00 Dose: 100 mls/hr - Labs Labs: 06/08/16 05:30 06/08/16 05:30 PT 11.0 Seconds (9.9-11.8) 06/06/16 07:48 INR 1.02 (0.93-1.08) 06/06/16 07:48 APTT 22.9 Seconds (23.7-30.8) L 06/06/16 07:48 - Constitutional Appears: Other (intubated, sedated) - Eye Exam Eye Exam: PERRL - ENT Exam ENT Exam: Mucous Membranes Dry Additional comments: ET tube in place - Respiratory Exam Respiratory Exam: Clear to Ausculation Bilateral. absent: Rales, Rhonchi, Wheezes Additional comments: B/L air entry - Cardiovascular Exam Cardiovascular Exam: RRR, +S1, +S2 - GI/Abdominal Exam GI & Abdominal Exam: Soft, Hypoactive Bowel Sounds. absent: Distended, Firm, Guarding, Rigid, Tenderness, Organomegaly Additional comments: PTC in RUQ, thick bilious material draining - Extremities Exam Extremities Exam: Normal Inspection. absent: Pedal Edema - Skin Skin Exam: Dry, Warm Assessment and Plan - Assessment and Plan (Free Text) Assessment: Patient is a 75yo male with PMHx significant for prostate cancer s/p brachytherapy, MDS, alzheimer's dementia who presented from nursing facility with abdominal pain and vomiting. Consultation requested for abdominal pain, nausea and vomiting. -Sepsis with GNR bacteremia -Acute cholangitis -Acalculous cholecystitis -Acute respiratory failure requiring mechanical ventilation -Lactic acidosis -Myelodysplastic syndrome -Alzheimer's dementia Plan: -S/P PTC POD#1, awaiting cultures -Abdominal U/S, HIDA scan ordered; have been unable to complete 2/2 patient critical condition -Patient currently requiring two pressor support, intubated on precedex; continue to wean as tolerated -Continue Merrem as ordered -No endoscopic intervention at this time given critical condition, continue to monitor -Surgery following, no planned surgical intervention at this time <Johnson Gary - Last Filed: 06/08/16 11:14> Objective - Vital Signs/Intake and Output Vital Signs (last 24 hours): Temp Pulse Resp BP Pulse Ox 99.5 F 57 L 26 H 128/76 96 06/08/16 04:00 06/08/16 03:30 06/08/16 01:30 06/08/16 03:30 06/08/16 03:30 Intake and Output: 06/08/16 06/08/16 06:59 18:59 Intake Total 1658 Output Total 810 Balance 848 - Medications Medications: Current Medications Acetaminophen (Tylenol 325mg Tab) 650 mg PO Q8 PRN PRN Reason: Fever >100.4 F Last Admin: 06/07/16 19:27 Dose: 650 mg Famotidine (Pepcid) 20 mg IVP DAILY YOLANDA Last Admin: 06/08/16 08:59 Dose: 20 mg Fentanyl (Fentanyl) 100 mcg IVP Q1 PRN PRN Reason: Pain, severe (8-10) Last Admin: 06/08/16 00:02 Dose: 100 mcg Fentanyl (Fentanyl) 75 mcg IVP Q1 PRN PRN Reason: Pain, moderate (4-7) Meropenem 1 gm/ Sodium (Chloride) 100 mls @ 100 mls/hr IVPB Q8 YOLANDA PRN Reason: Protocol Stop: 06/15/16 13:01 Last Admin: 06/08/16 05:24 Dose: 100 mls/hr Dexmedetomidine HCl (Precedex 4 Mcg/Ml (100 Ml)) 100 mls @ 3.856 mls/hr IV .Q24H PRN; Protocol; 0.2 MCG/KG/HR PRN Reason: Agitation Last Admin: 06/08/16 08:06 Dose: 28.917 mls/hr Vasopressin 20 units/ Sodium (Chloride) 101 mls @ 9.09 mls/hr IV .Q11H7M YOLANDA; 0.03 U/MIN PRN Reason: Protocol Last Admin: 06/08/16 03:00 Dose: 9.09 mls/hr Norepinephrine Bitartrate 32 (mg/ Sodium Chloride) 1,032 mls @ 96.75 mls/hr IV .[id number] PRN; Protocol; 50 MCG/MIN PRN Reason: MAP<65 Last Titration: 06/08/16 06:00 Dose: 10 mcg/min Sodium Chloride (Sodium Chloride 0.9%) 1,000 mls @ 100 mls/hr IV .Q10H YOLANDA Stop: 06/11/16 22:59 Last Admin: 06/08/16 01:00 Dose: 100 mls/hr Sodium Bicarbonate 100 meq/ (Dextrose/Sodium Chloride) 1,100 mls @ 100 mls/hr IV .Q11H YOLANDA Last Admin: 06/08/16 09:00 Dose: 100 mls/hr - Labs Labs: 06/08/16 05:30 06/08/16 05:30 PT 14.2 Seconds (9.9-11.8) H 06/08/16 08:30 INR 1.31 (0.93-1.08) H 06/08/16 08:30 APTT 32.9 Seconds (23.7-30.8) H 06/08/16 08:30 Attending/Attestation - Attestation I have personally seen and examined this patient.: Yes I have fully participated in the care of the patient.: Yes I have reviewed all pertinent clinical information, including history, physical exam and plan: Yes Notes (Text): 06/08/16 11:07 I have seen and examined patient with GI fellow. He remains intubated and sedated, on vasopressor support in intensive care unit. No acute events overnight. As per nursing staff, no reported bowel movements, abdominal pain, vomiting. Prostate cancer s/p brachytherapy MDS History of hemolytic anemia Abdominal pain - septic shock with gram negative bacteremia, lactic acidosis Acalculous cholecystitis s/p PTC drain placement Transaminitis, primarily direct hyperbilirubinemia - Continue with antibiotic therapy as per ID, follow blood and drain cultures - Vasopressor and ventilator management as per critical care team - Abdominal US/HIDA ordered, will await results - Continue to monitor LFTs, avoid hepatotoxic therapy - Follow up surgical recommendations - Given hypoactive bowel sounds along with lactic acidosis, also concern for potential gut ischemia, though infectious/septic source likely related to gallbladder - Will continue to monitor patient clinical course
[2016-06-08] MEDS: Dexmedetomidine HCl 4mcg/ml 100 ML IV PRN ×3 (08:06→18:00)
[2016-06-08] MEDS ORDERED: Sodium Bicarbonate 8.4% 100 MEQ in Dextrose 5%/0.9% NS 1,000 ML IV SCH (08:15)
--- NOTE | 2016-06-08 08:26 | CP.CCUPN ---
<Marcos Howard - Last Filed: 06/08/16 14:53> CCU Subjective - Physician Review Subjective (Free Text): 06/08/16 14:48 Pt s&e w ICU attending. Pt intubated and sedated. Pt on levophed and vasopressin. Pt is arouasble and response to some pain stimuli intermittently. Planned for HIDA. CCU Objective - Vital Signs / Intake & Output Intake and Output (Last 8hrs): Intake & Output 06/07/16 06/08/16 06/08/16 22:59 06:59 14:59 Intake Total 2820 1658 Output Total 800 810 Balance 2019 848 Intake: IV 2820 1658 Right Internal Jugular 520 310 IVF 1000 1000 Saline bolus 1000 Precedex 300 348 Output: Drainage 10 Right Upper Abdomen 10 Urine 600 800 Urethral (Tong) 600 800 Stool 0 Other 200 Other: # Bowel Movements 0 - Physical Exam Head: Positive for: Atraumatic, Normocephalic Pupils: Positive for: PERRL Extroacular Muscles: Positive for: EOMI Conjunctiva: Positive for: Normal Mouth: Positive for: Moist Mucous Membranes Pharnyx: Negative for: ERYTHEMA, EXUDATE, TONSILS ENLARGED Nose (External): Positive for: Other (necrotic skin graft) Respiratory/Chest: Positive for: Clear to Auscultation, Good Air Exchange, Decreased Breath Sounds. Negative for: Respiratory Distress, Accessory Muscle Use Cardiovascular: Positive for: Regular Rate and Rhythm, Normal S1, S2. Negative for: Murmurs Abdomen: Positive for: Other (Miguelina tube in place: purulent fluids. ). Negative for: Tenderness (rigid surgical abdomen), Distention (Abdomen distended tympanitic and quiet with surgical scar), Normal Bowel Sounds, Rebound , Guarding Upper Extremity: Positive for: Normal Inspection. Negative for: Cyanosis, Edema Lower Extremity: Positive for: Normal Inspection. Negative for: Edema Psychiatric: Negative for: Alert, Oriented x 3, Normal Insight - Medications Active Medications: Active Medications Generic Name Dose Route Start Last Admin Trade Name Freq PRN Reason Stop Dose Admin Acetaminophen 650 mg 06/06/16 15:35 06/07/16 19:27 Tylenol 325mg Tab PO 650 mg Q8 PRN Administration Fever >100.4 F Famotidine 20 mg 06/08/16 10:00 Pepcid IVP DAILY YOLANDA Fentanyl 100 mcg 06/07/16 11:35 06/08/16 00:02 Fentanyl IVP 100 mcg Q1 PRN Administration Pain, severe (8-10) Fentanyl 75 mcg 06/07/16 11:36 Fentanyl IVP Q1 PRN Pain, moderate (4-7) Meropenem 1 gm/ Sodium 100 mls @ 100 mls/hr 06/06/16 13:00 06/08/16 05:24 Chloride IVPB 06/15/16 13:01 100 mls/hr Q8 YOLANDA Administration Protocol Dexmedetomidine HCl 100 mls @ 3.856 mls/hr 06/06/16 14:50 06/08/16 08:06 Precedex 4 Mcg/Ml (100 Ml) IV 28.917 mls/hr .Q24H PRN Administration Agitation Protocol 0.2 MCG/KG/HR Vasopressin 20 units/ Sodium 101 mls @ 9.09 mls/hr 06/06/16 21:30 06/08/16 03: 00 Chloride IV 9.09 mls/hr .[id number] YOLANDA Administration Protocol 0.03 U/MIN Norepinephrine Bitartrate 32 1,032 mls @ 96.75 mls/hr 06/07/16 08:04 06/08/16 06:00 mg/ Sodium Chloride IV 10 mcg/min .[id number] PRN Titration MAP<65 Protocol 50 MCG/MIN Sodium Chloride 1,000 mls @ 100 mls/hr 06/07/16 19:01 06/08/16 01:00 Sodium Chloride 0.9% IV 06/11/16 22:59 100 mls/hr .Q10H YOLANDA Administration Sodium Bicarbonate 100 meq/ 1,100 mls @ 100 mls/hr 06/08/16 08:15 Dextrose/Sodium Chloride IV .Q11H YOLANDA - Patient Studies Lab Studies: Microbiology Studies 06/07/16 13:00 Gram Stain - Final Bile 06/07/16 12:40 Fungal Culture - Preliminary Bile 06/06/16 17:00 Gram Stain - Final Sputum 06/06/16 14:10 MRSA Culture (Admit) - Final Nose MRSA NOT DETECTED 06/06/16 15:40 Urine Culture - Preliminary Urine,Tong No growth. Lab Studies 06/08/16 06/07/16 Range/Units 05:30 07:30 WBC 13.6 H D (4.5-11.0) 10^3/ul RBC 4.10 (3.5-6.1) 10^6/uL Hgb 13.1 L (14.0-18.0) gm/dL Hct 36.8 L (42.0-52.0) % MCV 89.8 (80.0-105.0) fL MCH 32.0 (25.0-35.0) pg MCHC 35.6 (31.0-37.0) g/dl RDW 14.6 H (11.5-14.5) % Plt Count 32 L* (120.0-450.0) 10^3/uL MPV 11.3 H (7.0-11.0) fl Gran % Continuous [place] Lymph % (Auto) Continuous [place] % (Auto) Continuous [place] Eos % (Auto) Continuous [place] Baso % (Auto) Continuous [place] Gran # Continuous [place] Lymph # Continuous [place] # Continuous [place] Eos # Continuous [place] Baso # Continuous [place] Neutrophils % (Manual) 69 (50.0-70.0) % Band Neutrophils % 8 H (0-2) % Lymphocytes % (Manual) 9 L (22.0-35.0) % Monocytes % (Manual) 8 H (1.0-6.0) % Metamyelocytes % 2 % Myelocytes % 4 % Platelet Evaluation Low (NORMAL) Sodium 140 (132-148) mmol/L Potassium 3.9 (3.6-5.0) mmol/L Chloride 111 H (98-107) mmol/L Carbon Dioxide 17 L (21-33) mmol/L Anion Gap 16 (10-20) BUN 32 H (7-21) mg/dL Creatinine 0.9 (0.5-1.4) mg/dL Est GFR ( Amer) > 60 Est GFR (Non-Af Amer) > 60 Random Glucose 141 H (70-110) mg/dL Calcium 7.2 L (8.4-10.5) mg/dL Phosphorus 3.1 (2.5-4.5) mg/dL Magnesium 1.6 L (1.7-2.2) mg/dL Total Bilirubin 10.5 H (0.2-1.3) mg/dL Direct Bilirubin 8.2 H (0.0-0.4) mg/dL AST 99 H (15-59) U/L ALT 220 H (7-56) U/L Alkaline Phosphatase 110 (38-133) U/L Total Protein 4.9 L (5.8-8.3) g/dL Albumin 2.5 L (3.0-4.8) g/dL Globulin 2.3 gm/dL Albumin/Globulin Ratio 1.1 (1.1-1.8) Laboratory Results - last 24 hr 06/07/16 06/08/16 07:30 05:30 WBC 13.6 H D RBC 4.10 Hgb 13.1 L Hct 36.8 L MCV 89.8 MCH 32.0 MCHC 35.6 RDW 14.6 H Plt Count 32 L* MPV 11.3 H Gran % Continuous [place] Lymph % (Auto) Continuous [place] % (Auto) Continuous [place] Eos % (Auto) Continuous [place] Baso % (Auto) Continuous [place] Gran # Continuous [place] Lymph # Continuous [place] # Continuous [place] Eos # Continuous [place] Baso # Continuous [place] Neutrophils % (Manual) 69 Band Neutrophils % 8 H Lymphocytes % (Manual) 9 L Monocytes % (Manual) 8 H Metamyelocytes % 2 Myelocytes % 4 Platelet Evaluation Low Sodium 140 Potassium 3.9 Chloride 111 H Carbon Dioxide 17 L Anion Gap 16 BUN 32 H Creatinine 0.9 Est GFR ( Amer) > 60 Est GFR (Non-Af Amer) > 60 Random Glucose 141 H Calcium 7.2 L Phosphorus 3.1 Magnesium 1.6 L Total Bilirubin 10.5 H Direct Bilirubin 8.2 H AST 99 H ALT 220 H Alkaline Phosphatase 110 Total Protein 4.9 L Albumin 2.5 L Globulin 2.3 Albumin/Globulin Ratio 1.1 Review of Systems - Review of Systems Systems not reviewed;Unavailable: Intubated Critical Care Progress Note - Ventilator Checklist Head of Bed 30 Degrees: Yes Daily Sedation Vacation: Yes - Nutrition Nutrition: Nutrition Category Date Time Status NPO Diet [DIET] Diets 06/06/16 Dinner Ordered Assessment/Plan - Assessment and Plan (Free Text) Assessment: 75 yo M w h/o SBO, MDS, gastritis, Alzheimer's dementia admitted with acute abdomen and vomiting 2/2 acute on chronic cholecystitis now s/p cholecystostomy tube. Plan: Neuro: Mental status at baseline, h/o Alzheimer's dementia, unable to provide history. Precedex drip, PRN fentanyl to maintain comfort and pain control Maintain normothermia CV: Continue vasopressors, titrate to maintain MAP>65 Pulm: VDRF. Currently PRVC 60% Titrate FiO2 to maintain SpO2>90, PaO2>60 Protective lung ventilation strategy HOB>35 degrees Aspiration precautions Daily ABG / CXR GI: POD #1 s/p percutaneous cholecystostomy tube by IR. Output was bloody and purulent. Patient will keep tube for 4-6 weeks with BID flushes unless the gallbladder gets surgically removed earlier, as per IR recs CT A/P without contrast shows distended gallbladder with evidence of gallbladder wall thickening/mild pericholecystic fluid, no calcified gallstones , constipation, scattered prominent retroperitoneal and mesenteric LNs, mild mesenteric inflammatory stranding. Continue Meropenem f/u US of the abdomen and HIDA scan Pepcid Surgery following: Recommends ERCP. GI following. Endo: No acute issues. Maintain euglycemia 140-180 Renal: Cr: 0.9. Urine output 1.5L/24hrs Continue to monitor renal function, I&Os ID: Septic shock 2/2 acute cholecystitis with significant leukocytosis 26.9, lactate down to 4.9. Continue to monitor Blood cultures significant for GNR in 2 of 2 bottles Continue Meropenem ID following Preliminary urine culture shows no growth Tylenol for fever PRN Heme: Hb stable. No signs of bleeding. Continue to monitor. DVT/GI ppx: Pepcid, NPO <Uzma OLMSTEAD,Inamul H - Last Filed: 06/08/16 16:03> CCU Objective - Vital Signs / Intake & Output Vital Signs (Last 4 hours): Vital Signs Temp Pulse Resp BP Pulse Ox 06/08/16 12:00 97.1 F L 46 L 26 H 130/75 93 L Intake and Output (Last 8hrs): Intake & Output 06/08/16 06/08/16 06/08/16 06:59 14:59 22:59 Intake Total 1658 Output Total 810 Balance 848 Weight 178 lb 8 oz Intake: IV 1658 Right Internal Jugular 310 IVF 1000 Precedex 348 Output: Drainage 10 Right Upper Abdomen 10 Urine 800 Urethral (Tong) 800 Stool 0 - Medications Active Medications: Active Medications Generic Name Dose Route Start Last Admin Trade Name Freq PRN Reason Stop Dose Admin Acetaminophen 650 mg 06/06/16 15:35 06/07/16 19:27 Tylenol 325mg Tab PO 650 mg Q8 PRN Administration Fever >100.4 F Famotidine 20 mg 06/08/16 10:00 06/08/16 08:59 Pepcid IVP 20 mg DAILY YOLANDA Administration Fentanyl 100 mcg 06/07/16 11:35 06/08/16 10:15 Fentanyl IVP 100 mcg Q1 PRN Administration Pain, severe (8-10) Fentanyl 75 mcg 06/07/16 11:36 Fentanyl IVP Q1 PRN Pain, moderate (4-7) Meropenem 1 gm/ Sodium 100 mls @ 100 mls/hr 06/06/16 13:00 06/08/16 14:42 Chloride IVPB 06/15/16 13:01 100 mls/hr Q8 YOLANDA Administration Protocol Dexmedetomidine HCl 100 mls @ 3.856 mls/hr 06/06/16 14:50 06/08/16 12:03 Precedex 4 Mcg/Ml (100 Ml) IV 19.278 mls/hr .Q24H PRN Administration Agitation Protocol 0.2 MCG/KG/HR Vasopressin 20 units/ Sodium 101 mls @ 9.09 mls/hr 06/06/16 21:30 06/08/16 03: 00 Chloride IV 9.09 mls/hr .Q11H7M YOLANDA Administration Protocol 0.03 U/MIN Norepinephrine Bitartrate 32 1,032 mls @ 96.75 mls/hr 06/07/16 08:04 06/08/16 06:00 mg/ Sodium Chloride IV 10 mcg/min .[id number] PRN Titration MAP<65 Protocol 50 MCG/MIN Sodium Chloride 1,000 mls @ 100 mls/hr 06/07/16 19:01 06/08/16 01:00 Sodium Chloride 0.9% IV 06/11/16 22:59 100 mls/hr .Q10H YOLANDA Administration Sodium Bicarbonate 100 meq/ 1,100 mls @ 100 mls/hr 06/08/16 08:15 06/08/16 09: 00 Dextrose/Sodium Chloride IV 100 mls/hr .Q11H YOLANDA Administration - Patient Studies Lab Studies: Microbiology Studies 06/06/16 15:40 Urine Culture - Final Urine,Tong No Growth (<1,000 CFU/ML) 06/07/16 13:00 Gram Stain - Final Bile Body Fluid Culture - Preliminary Gram Negative Chandrakant 06/06/16 17:00 Gram Stain - Final Sputum Sputum Culture - Preliminary NORMAL ORAL KATIANA 06/07/16 12:40 Fungal Culture - Preliminary Bile 06/06/16 14:10 MRSA Culture (Admit) - Final Nose MRSA NOT DETECTED Lab Studies 06/08/16 06/08/16 06/08/16 Range/Units 14:15 08:30 05:30 WBC 13.6 H D (4.5-11.0) 10^3/ul RBC 4.10 (3.5-6.1) 10^6/uL Hgb 13.1 L (14.0-18.0) gm/dL Hct 36.8 L (42.0-52.0) % MCV 89.8 (80.0-105.0) fL MCH 32.0 (25.0-35.0) pg MCHC 35.6 (31.0-37.0) g/dl RDW 14.6 H (11.5-14.5) % Plt Count 32 L* (120.0-450.0) 10^3/uL MPV 11.3 H (7.0-11.0) fl Gran % Continuous [place] Lymph % (Auto) Continuous [place] % (Auto) Continuous [place] Eos % (Auto) Continuous [place] Baso % (Auto) Continuous [place] Gran # Continuous [place] Lymph # Continuous [place] # Continuous [place] Eos # Continuous [place] Baso # Continuous [place] Neutrophils % (Manual) 69 (50.0-70.0) % Band Neutrophils % 8 H (0-2) % Lymphocytes % (Manual) 9 L (22.0-35.0) % Monocytes % (Manual) 8 H (1.0-6.0) % Metamyelocytes % 2 % Myelocytes % 4 % Platelet Evaluation Low (NORMAL) PT 14.2 H (9.9-11.8) Seconds INR 1.31 H (0.93-1.08) APTT 32.9 H (23.7-30.8) Seconds Fibrinogen 579.7 H (187-400) mg/dL pCO2 46 H (35-45) mm/Hg pO2 32.0 L* (80-100) mm/Hg HCO3 20.6 L (21-28) mmol/L ABG pH 7.26 L (7.35-7.45) ABG Total CO2 22.0 (22-28) mmol.L ABG O2 Saturation 55.1 L (95-98) % ABG Base Excess -6.5 L (-2.0-3.0) mmol/L ABG Potassium 3.8 (3.6-5.2) mmol/L Sodium 140.0 140 (132-148) mmol/L Chloride 115.0 H 111 H (98-107) mmol/L Glucose 175 H (75-110) mg/dl Lactate 4.6 H* (0.7-2.1) mmol/L Mechanical Rate 26 FiO2 100.0 % Tidal Volume 400 PEEP 5 Potassium 3.9 (3.6-5.0) mmol/L Carbon Dioxide 17 L (21-33) mmol/L Anion Gap 16 (10-20) BUN 32 H (7-21) mg/dL Creatinine 0.9 (0.5-1.4) mg/dL Est GFR ( Amer) > 60 Est GFR (Non-Af Amer) > 60 Random Glucose 141 H (70-110) mg/dL Lactic Acid 4.5 H* (0.7-2.1) mmol/L Calcium 7.2 L (8.4-10.5) mg/dL Phosphorus 3.1 (2.5-4.5) mg/dL Magnesium 1.6 L (1.7-2.2) mg/dL Total Bilirubin 10.5 H (0.2-1.3) mg/dL AST 99 H (15-59) U/L ALT 220 H (7-56) U/L Alkaline Phosphatase 110 (38-133) U/L Total Protein 4.9 L (5.8-8.3) g/dL Albumin 2.5 L (3.0-4.8) g/dL Globulin 2.3 gm/dL Albumin/Globulin Ratio 1.1 (1.1-1.8) Arterial Blood Potassium 3.8 (3.6-5.2) mmol/L Hepatitis A IgM Ab (NEGATIVE) Hep Bs Antigen (NEGATIVE) Hep B Core IgM Ab (NEGATIVE) Hepatitis C Antibody (NEGATIVE) 06/06/16 Range/Units 15:45 WBC (4.5-11.0) 10^3/ul RBC (3.5-6.1) 10^6/uL Hgb (14.0-18.0) gm/dL Hct (42.0-52.0) % MCV (80.0-105.0) fL MCH (25.0-35.0) pg MCHC (31.0-37.0) g/dl RDW (11.5-14.5) % Plt Count (120.0-450.0) 10^3/uL MPV (7.0-11.0) fl Gran % Lymph % (Auto) [place] % (Auto) Eos % (Auto) Baso % (Auto) Gran # Lymph # [place] # Eos # Baso # Neutrophils % (Manual) (50.0-70.0) % Band Neutrophils % (0-2) % Lymphocytes % (Manual) (22.0-35.0) % Monocytes % (Manual) (1.0-6.0) % Metamyelocytes % % Myelocytes % % Platelet Evaluation (NORMAL) PT (9.9-11.8) Seconds INR (0.93-1.08) APTT (23.7-30.8) Seconds Fibrinogen (187-400) mg/dL pCO2 (35-45) mm/Hg pO2 (80-100) mm/Hg HCO3 (21-28) mmol/L ABG pH (7.35-7.45) ABG Total CO2 (22-28) mmol.L ABG O2 Saturation (95-98) % ABG Base Excess (-2.0-3.0) mmol/L ABG Potassium (3.6-5.2) mmol/L Sodium (132-148) mmol/L Chloride (98-107) mmol/L Glucose (75-110) mg/dl Lactate (0.7-2.1) mmol/L Mechanical Rate FiO2 % Tidal Volume PEEP Potassium (3.6-5.0) mmol/L Carbon Dioxide (21-33) mmol/L Anion Gap (10-20) BUN (7-21) mg/dL Creatinine (0.5-1.4) mg/dL Est GFR ( Amer) Est GFR (Non-Af Amer) Random Glucose (70-110) mg/dL Lactic Acid (0.7-2.1) mmol/L Calcium (8.4-10.5) mg/dL Phosphorus (2.5-4.5) mg/dL Magnesium (1.7-2.2) mg/dL Total Bilirubin (0.2-1.3) mg/dL AST (15-59) U/L ALT (7-56) U/L Alkaline Phosphatase (38-133) U/L Total Protein (5.8-8.3) g/dL Albumin (3.0-4.8) g/dL Globulin gm/dL Albumin/Globulin Ratio (1.1-1.8) Arterial Blood Potassium (3.6-5.2) mmol/L Hepatitis A IgM Ab Negative (NEGATIVE) Hep Bs Antigen Negative (NEGATIVE) Hep B Core IgM Ab Negative (NEGATIVE) Hepatitis C Antibody Negative (NEGATIVE) Laboratory Results - last 24 hr 06/06/16 06/08/16 06/08/16 15:45 05:30 08:30 WBC 13.6 H D RBC 4.10 Hgb 13.1 L Hct 36.8 L MCV 89.8 MCH 32.0 MCHC 35.6 RDW 14.6 H Plt Count 32 L* MPV 11.3 H Gran % Continuous [place] Lymph % (Auto) Continuous [place] % (Auto) Continuous [place] Eos % (Auto) Continuous [place] Baso % (Auto) Continuous [place] Gran # Continuous [place] Lymph # Continuous [place] # Continuous [place] Eos # Continuous [place] Baso # Continuous [place] Neutrophils % (Manual) 69 Band Neutrophils % 8 H Lymphocytes % (Manual) 9 L Monocytes % (Manual) 8 H Metamyelocytes % 2 Myelocytes % 4 Platelet Evaluation Low PT 14.2 H INR 1.31 H APTT 32.9 H Fibrinogen 579.7 H pCO2 pO2 HCO3 ABG pH ABG Total CO2 ABG O2 Saturation ABG Base Excess ABG Potassium Glucose Lactate Mechanical Rate FiO2 Tidal Volume PEEP Sodium 140 Potassium 3.9 Chloride 111 H Carbon Dioxide 17 L Anion Gap 16 BUN 32 H Creatinine 0.9 Est GFR ( Amer) > 60 Est GFR (Non-Af Amer) > 60 Random Glucose 141 H Lactic Acid 4.5 H* Calcium 7.2 L Phosphorus 3.1 Magnesium 1.6 L Total Bilirubin 10.5 H AST 99 H ALT 220 H Alkaline Phosphatase 110 Total Protein 4.9 L Albumin 2.5 L Globulin 2.3 Albumin/Globulin Ratio 1.1 Arterial Blood Potassium Hepatitis A IgM Ab Negative Hep Bs Antigen Negative Hep B Core IgM Ab Negative Hepatitis C Antibody Negative 06/08/16 14:15 WBC RBC Hgb Hct MCV MCH MCHC RDW Plt Count MPV Gran % Lymph % (Auto) [place] % (Auto) Eos % (Auto) Baso % (Auto) Gran # Lymph # [place] # Eos # Baso # Neutrophils % (Manual) Band Neutrophils % Lymphocytes % (Manual) Monocytes % (Manual) Metamyelocytes % Myelocytes % Platelet Evaluation PT INR APTT Fibrinogen pCO2 46 H pO2 32.0 L* HCO3 20.6 L ABG pH 7.26 L ABG Total CO2 22.0 ABG O2 Saturation 55.1 L ABG Base Excess -6.5 L ABG Potassium 3.8 Glucose 175 H Lactate 4.6 H* Mechanical Rate 26 FiO2 100.0 Tidal Volume 400 PEEP 5 Sodium 140.0 Potassium Chloride 115.0 H Carbon Dioxide Anion Gap BUN Creatinine Est GFR ( Amer) Est GFR (Non-Af Amer) Random Glucose Lactic Acid Calcium Phosphorus Magnesium Total Bilirubin AST ALT Alkaline Phosphatase Total Protein Albumin Globulin Albumin/Globulin Ratio Arterial Blood Potassium 3.8 Hepatitis A IgM Ab Hep Bs Antigen Hep B Core IgM Ab Hepatitis C Antibody Critical Care Progress Note - Nutrition Nutrition: Nutrition Category Date Time Status NPO Diet [DIET] Diets 06/06/16 Dinner Ordered Attending/Attestation - Attestation I have personally seen and examined this patient.: Yes I have fully participated in the care of the patient.: Yes I have reviewed all pertinent clinical information: Yes Notes (Text): 06/08/16 16:00 75 y/o M w/ Acute cholangitis w/ septic shock On Levophed to MAP >65 ON Meropenum for Gram - sepsis + gram - blood cx. S/P C-ostomy tube placed w/ minimal drainage. HIDA and U/S done awaiting read, with concern for Bile duct dialation . concern for need of ERCP. VDRF- ON ac/vc to keep pao2>60 tv 6mlkg dvt p - scd, due to thrombocytopenia , lovenox on hold. cc time 72 min
[2016-06-08 08:59] LABS: INR 1.31 (0.93-1.08); PARTIAL THROMBOPLASTIN TIME 32.9 Seconds (23.7-30.8)
--- NOTE | 2016-06-08 09:36 | PN ---
DATE: 06/08/2016 I saw the patient resting in bed, in the intensive care unit. He is on the ventilator. He is sedate d. He has a pigtail catheter into his gallbladder, which is draining. He is on IV antibiotics and d espite all this, he is starting to improve. PHYSICAL EXAMINATION: VITAL SIGNS: Temp 99.5, it was as high as 103, 63 pulse, 112/67 blood pressure, 26 respiratory rate, 97% O2 sat on ventilator. HEENT: His head is atraumatic, normocephalic. HEART: Regular rate. LUNGS: Decreased breath sounds, but clear. ABDOMEN: Softer, positive bowel sounds. He has got a pigtail catheter in the gallbladder. EXTREMITIES: No edema. He is currently on fentanyl patch, Lovenox, Merrem, norepinephrine, which I might decrease because he is doing better with his blood pressure, Pepcid, Precedex, IV fluids, Tylenol, vasopressin. 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 He has multiple issues. He had a gallbladder infection, cholecystitis. He was septic shock, in respiratory failure, white count was v rachana high. He had small bowel obstruction. This is all starting to resolve. He has a 140 sodium, potassium 3.9, BUN 32, better, creatinine 0.9, GFR is greater than 60, sugar is 141. He has a calcium of 7.2, phosphorus 3.1, magnesium 1.6, total bili is 10.5, AST is 99, getting better, ALT is 220, getting better, alkaline phosphatase 110, total protein is 4.9. White count is d own to 13.6, it was as high as 27, hemoglobin 13.1, hematocrit 36.8, platelets are low at 32. I will consult hematology. I will check his labs tomorrow. Discussed with the . The patient has got sepsis, gallbladder infection, respiratory failure. Sean Nicholson DO cc: [id number] TT: 06/08/2016 09:35:38 Confirmation # [id number] Dictation # [id number]
--- NOTE | 2016-06-08 09:45 | CP.PCM.PN ---
Subjective - Date & Time of Evaluation Date of Evaluation: 06/08/16 Time of Evaluation: 09:00 - Subjective Subjective: Patient still had fever last night, at 8 pm. Continues to be on the ventilator, sedated, not in distress while sedated. Objective - Vital Signs/Intake and Output Vital Signs (last 24 hours): Temp Pulse Resp BP Pulse Ox 99.5 F 57 L 26 H 128/76 96 06/08/16 04:00 06/08/16 03:30 06/08/16 01:30 06/08/16 03:30 06/08/16 03:30 Intake and Output: 06/08/16 06/08/16 06:59 18:59 Intake Total 1658 Output Total 810 Balance 848 - Medications Medications: Current Medications Acetaminophen (Tylenol 325mg Tab) 650 mg PO Q8 PRN PRN Reason: Fever >100.4 F Last Admin: 06/07/16 19:27 Dose: 650 mg Famotidine (Pepcid) 20 mg IVP DAILY [facility] Last Admin: 06/08/16 08:59 Dose: 20 mg Fentanyl (Fentanyl) 100 mcg IVP Q1 PRN PRN Reason: Pain, severe (8-10) Last Admin: 06/08/16 00:02 Dose: 100 mcg Fentanyl (Fentanyl) 75 mcg IVP Q1 PRN PRN Reason: Pain, moderate (4-7) Meropenem 1 gm/ Sodium (Chloride) 100 mls @ 100 mls/hr IVPB Q8 YOLANDA PRN Reason: Protocol Stop: 06/15/16 13:01 Last Admin: 06/08/16 05:24 Dose: 100 mls/hr Dexmedetomidine HCl (Precedex 4 Mcg/Ml (100 Ml)) 100 mls @ 3.856 mls/hr IV .Q24H PRN; Protocol; 0.2 MCG/KG/HR PRN Reason: Agitation Last Admin: 06/08/16 08:06 Dose: 28.917 mls/hr Vasopressin 20 units/ Sodium (Chloride) 101 mls @ 9.09 mls/hr IV .[id number] YOLANDA; 0.03 U/MIN PRN Reason: Protocol Last Admin: 06/08/16 03:00 Dose: 9.09 mls/hr Norepinephrine Bitartrate 32 (mg/ Sodium Chloride) 1,032 mls @ 96.75 mls/hr IV .[id number] PRN; Protocol; 50 MCG/MIN PRN Reason: MAP<65 Last Titration: 06/08/16 06:00 Dose: 10 mcg/min Sodium Chloride (Sodium Chloride 0.9%) 1,000 mls @ 100 mls/hr IV .Q10H YOLANDA Stop: 06/11/16 22:59 Last Admin: 06/08/16 01:00 Dose: 100 mls/hr Sodium Bicarbonate 100 meq/ (Dextrose/Sodium Chloride) 1,100 mls @ 100 mls/hr IV .Q11H YOLANDA Last Admin: 06/08/16 09:00 Dose: 100 mls/hr - Labs Labs: 06/08/16 05:30 06/08/16 05:30 PT 14.2 Seconds (9.9-11.8) H 06/08/16 08:30 INR 1.31 (0.93-1.08) H 06/08/16 08:30 APTT 32.9 Seconds (23.7-30.8) H 06/08/16 08:30 - Constitutional Appears: Other (Intubated and sedated) - ENT Exam Additional comments: ET tube in place - Neck Exam Neck Exam: absent: Meningismus Additional comments: right IJ central venous catheter site intact and clean - Respiratory Exam Respiratory Exam: Decreased Breath Sounds - Cardiovascular Exam Cardiovascular Exam: +S1, +S2 - GI/Abdominal Exam GI & Abdominal Exam: Soft. absent: Tenderness Additional comments: right upper quadrant abdominal drain in place, with serosanguinous drain Assessment and Plan - Assessment and Plan (Free Text) Plan: Assessment Septic shock with ventilator-dependent respiratory failure and acute renal failure from gram negative bacilli bacteremia probably from biliary tree infection (ascending cholangitis or acute cholecystitis) S/P abdominal drain placement into the biliary tree POD #1 Alzheimer's dementia history of hemolytic anemia prostate CA history of depression history of bowel obstruction history of E. coli bacteremia and sepsis probably biliary tree in origin History of Klebsiella UTI Plan Continue Meropenem (day 2) pending identification and sensitivities of the gram negative bacilli in the blood and bile; will repeat blood cx today will continue to continue to monitor clinically Overall prognosis is poor
[2016-06-08] MEDS ORDERED: Enoxaparin 40 mg Syringe SC SCH (10:00)
--- NOTE | 2016-06-08 13:47 | US ---
HISTORY: eval GB COMPARISON: None. TECHNIQUE: Sonographic evaluation of the abdomen. Examination limited due to patient's inability to cooperate for positioning and suspension of respiration. FINDINGS: LIVER: Measures 19.2 cm. Diffusely increased echogenicity of the liver parenchyma. Consistent with fatty infiltration. Smooth contour. No mass. No intrahepatic biliary ductal dilatation. GALLBLADDER: Small shadowing gallstones are identified. No mural thickening. Negative sonographic Torres's sign. COMMON BILE DUCT: Measures 10 mm. This may be due to patient age. In the absence of intrahepatic biliary dilatation, the significance of this finding is unclear. PANCREAS: Limited evaluation no gross abnormality. RIGHT KIDNEY: Measures 11.6cm. Normal echogenicity. No calculus, mass, or hydronephrosis. LEFT KIDNEY: Measures 11.7cm. Normal echogenicity. No calculus, mass, or hydronephrosis. SPLEEN: Splenomegaly. The spleen measures 15.3 cm in greatest dimension. No focal mass. AORTA: No aneurysmal dilatation. IVC: Unremarkable. OTHER FINDINGS: None. IMPRESSION: Cholelithiasis without evidence of cholecystitis. Dilatation of the common bile duct to 10 mm, possibly due to patient age. Please correlate with laboratory evaluation. Mild hepatomegaly with fatty infiltration. Splenomegaly. Limited evaluation
[2016-06-08 14:27] LABS: ABG MECHANICAL RATE 26; ARTERIAL BLOOD GAS HCO3 20.6 mmol/L (21-28); ARTERIAL BLOOD GAS PH 7.26 (7.35-7.45); ATERIAL BLOOD GAS PEEP 5
--- NOTE | 2016-06-08 15:13 | RAD ---
HISTORY: ETT COMPARISON: 06/07/2016 FINDINGS: LUNGS: Minimal bibasilar linear atelectasis. PLEURA: No significant pleural effusion identified, no pneumothorax apparent. CARDIOVASCULAR: Normal heart size. Endotracheal tube, nasogastric tube and right internal jugular central venous catheter are all grossly unchanged. OSSEOUS STRUCTURES: No significant abnormalities. VISUALIZED UPPER ABDOMEN: Normal. OTHER FINDINGS: None. IMPRESSION: Minimal bibasilar subsegmental atelectasis. Lines and tubes unchanged.
--- NOTE | 2016-06-08 16:24 | NM ---
PROCEDURE: Nuclear Medicine Hepatobiliary Scan HISTORY: sepsis COMPARISON: Abdominal ultrasound. June 08, 2016. Summary of findings on the comparison examination: Cholelithiasis without evidence of cholecystitis. : 03/02/2016. Hepatobiliary scan. June 07, 2016. CT abdomen and pelvis TECHNIQUE: 5.1 mCi of technetium 99m Mebrofenin was administered intravenously. Planar images of the abdomen were obtained at 5 min intervals to 60 mins. Delayed images were also obtained. FINDINGS: LIVER: Timely and heterogeneous uptake. COMMON BILE DUCT: identified at does not visualize at 04:00. GALLBLADDER: Does not visualize at 04:00. SMALL BOWEL: Does not visualize at 04:00. IMPRESSION: Nonvisualization of the gallbladder, common bile duct and small bowel. The findings are somewhat nonspecific. They can be seen with acute obstruction of the common bile duct. Severe hepatocellular disease can also assume this appearance.
[2016-06-08] MEDS: Dextrose 5%/0.9% NS 1,000 ML IV SCH (17:30)
[2016-06-08 21:17] LABS: VENOUS BLOOD GAS BASE EXCESS -4.2 mmol/L (0.0-2.0); VENOUS BLOOD PH 7.35 (7.32-7.43)
[2016-06-09 01:25] LABS: VENOUS BLOOD GAS BASE EXCESS -1.7 mmol/L (0.0-2.0); VENOUS BLOOD PH 7.42 (7.32-7.43)
[2016-06-09] MEDS: Dextrose 5%/0.9% NS 1,000 ML IV SCH (04:30)
[2016-06-09] MEDS: Meropenem 1 GM in Sodium Chloride 0.9% 100 ML IVPB SCH (05:52)
[2016-06-09 06:10] LABS: ARTERIAL BLOOD GAS HCO3 20.5 mmol/L (21-28); ARTERIAL BLOOD GAS PH 7.54 (7.35-7.45)
[2016-06-09 06:59] LABS: BASO # 0.01 K/mm3 (0.0-2.0); BASO % 0.1 % (0.0-3.0); EOS # 0.1 (0.0-0.7); EOS % 1.1 % (1.5-5.0); GRAN # 9.28 (1.4-6.5); GRAN % 89.3 % (50.0-68.0); LYMPH # 0.6 (1.2-3.4); LYMPH % 5.9 % (22.0-35.0); MEAN CELL VOLUME 88.2 fL (80.0-105.0); MEAN CORPUSCULAR HEMOGLOBIN 31.8 pg (25.0-35.0); MEAN CORPUSCULAR HGB CONC 36.1 g/dl (31.0-37.0); MEAN PLATELET VOLUME 12.1 fl (7.0-11.0); MONO # 0.4 (0.1-0.6); MONO % 3.6 % (1.0-6.0); RED CELL DISTRIBUTION WIDTH 14.4 % (11.5-14.5); WHITE BLOOD COUNT 10.4 10^3/ul (4.5-11.0)
[2016-06-09 07:10] LABS: INR 1.11 (0.93-1.08); PARTIAL THROMBOPLASTIN TIME 31.2 Seconds (23.7-30.8)
[2016-06-09 07:33] LABS: ALKALINE PHOSPHATASE 146 U/L (38-133); ALT/SGPT 142 U/L (7-56); AST/SGOT 59 U/L (15-59); BILIRUBIN,TOTAL 13.3 mg/dL (0.2-1.3); BLOOD UREA NITROGEN 23 mg/dL (7-21); CALCIUM 7.4 mg/dL (8.4-10.5); CARBON DIOXIDE 21 mmol/L (21-33); CHLORIDE 112 mmol/L (98-107); GFR AFRICAN-AMERICAN > 60; GLUCOSE,RANDOM 134 mg/dL (70-110); MAGNESIUM 1.9 mg/dL (1.7-2.2); SODIUM 143 mmol/L (132-148); TOTAL PROTEIN 4.7 g/dL (5.8-8.3)
[2016-06-09 07:38] LABS: ADD MANUAL DIFF? NO; PLATELET COUNT 22 10^3/uL (120.0-450.0)
[2016-06-09 08:05] LABS: PHOSPHOROUS 0.8 mg/dL (2.5-4.5)
[2016-06-09] MEDS ORDERED: Potassium Chloride 10 mEq 100 ML IVPB SCH (08:45)
[2016-06-09 08:52] LABS: VENOUS BLOOD GAS BASE EXCESS -3.2 mmol/L (0.0-2.0); VENOUS BLOOD PH 7.33 (7.32-7.43)
[2016-06-09] MEDS ORDERED: Potassium Phosphate 3 mmol/ml Inj IV SCH (10:00)
[2016-06-09] MEDS ORDERED: Potassium Phosphate 15 MMOLE in Sodium Chloride 0.9% 250 ML IV ONE (10:00)
--- NOTE | 2016-06-09 10:31 | PN ---
DATE: 06/09/2016 The patient seen and examined at bedside. He is sedated with Precedex 0.7 mcg/ kg per hour (later weaned down to 0,5). He is very comfortable on that. He is on norepinephrine 6 mcg per minute with blood pressure 112/68 (later weaned down to 4 mcg/min). The patient is on pressure support trial 5/5 with 40% FiO2 and his rapid shallow breathing index at present time 73-81. PHYSICAL EXAMINATION: VITAL SIGNS: Temperature 98.4. HEAD AND NECK: Atraumatic. LUNGS: Clear to auscultation bilaterally. HEART: Regular rate and rhythm. S1, S2 normal. ABDOMEN: Soft, nontender, nondistended. Cholecystostomy tube present with minimal amount of purulent secretion. MUSCULOSKELETAL: No C/C/E. NEUROLOGIC: The patient moves all extremities spontaneously. SKIN: Moist. PSYCHIATRIC: The patient is sedated. LABORATORY DATA: WBC 13.6, hemoglobin 13.1, platelet count 32. Sodium 140, potassium 3.9, chloride 111, carbon dioxide 17, BUN 32, creatinine 0.9, lactic acid 3.0, pH 7.42, PTT 31.2. INR 1.11. Hepatitis profile negative. MEDICATIONS: Precedex, D5 normal saline 100 mL per hour, meropenem, norepinephrine drip, Pepcid 20 mg IV daily, Tylenol p.r.n., vasopressin 0.03 units per minute, fentanyl p.r.n. ASSESSMENT AND PLAN: This is a 75-year-old gentleman with septic shock secondary to ascending cholangitis and acute cholecystitis, status post cholecystostomy tube placement. The patient showed strides toward improvement with decrement in norepinephrine requirement (down to 6 mcg per minute, later weaned down to 4). His renal function substantially improved. He remains afebrile. We will continue with antibiotics, septic workup. We will check his procalcitonin level and we will trend it down. His lactic acidosis is also improving. Infectious disease service is following the patient as well. Bile and blood cultures grew gram-negative rods. Pulmonary chen, his chest x-ray did not show any acute pulmonary abnormalities and lungs clear to auscultation. The patient tolerated pressure support and we will observe him on it. The patient is breathing with tidal volume much lower than 8 mL per predicted body weight. We will continue with head of bed elevated more than 35 degrees. We will continue with VAP bundle. Even though patient tolerates PS well, he is going for ERCP later today (as his billirubin continues to creep up) thus I will keep him intubated for the procedure. As patient Gastroenterology chen, the patient has LFTs going down. However, total and direct bilirubin is still elevated, most likely due to ascending cholangitis-->he is going for ERCP today. He is on gastrointestinal prophylaxis, n.p.o. at this point. Renal chen , the patient's renal function substantially improved; however, he is more than 7 L positive over the 2 days . Once septic shock resolves, we will adhere to conservative fluid management and we will attempt to diurese patient. Endocrine chen, we will maintain blood glucose within 140-180 range according to NICE-SUGAR trial. We will continue to maintain euvolemia, euglycemia, normothermia and oxygen saturation more than 90%. We will continue with deep venous thrombosis and gastrointestinal prophylaxis. He is thrombocytopenic most likely secondary to septic shock and bone marrow supression associated with it (that was discussed with Dr. Maria who agreed). No overt bleeding; thus , we will not transfuse any platelets at present time ccm time 40 min Bryce Bautista MD cc: [id number] TT: 06/09/2016 10:30:53 Confirmation # [id number] Dictation # [id number] tn MTDD
[2016-06-09] MEDS: Potassium Phosphate 15 MMOLE in Sodium Chloride 0.9% 250 ML IV SCH ×3 (10:36→18:20)
--- NOTE | 2016-06-09 10:50 | PN ---
DATE: 06/09/2016 The patient is seen in the ICU. He is still on pressors, but on a lowing dose. He looks much more c omfortable than he did. Drainage in the gallbladder is serous with little particles, but no longer t he motor oil bile that was seen before. It is being irrigated. HIDA scan is positive in that it shows nothing leaving the liver consistent with an elevated bilirubi n. Common duct on CAT scan is 10 mm. He is certainly improving, noting that the PT was elevated at 14 down to 12. Platelet count is down to 22,000. Total bilirubin is 13.3, ____ 142, and alk phos is 146, slightly elevated. I think at some point an EUS and ERCP would be helpful, but clinically he is much improved. Jean-Paul Krishnamurthy MD cc: [phone] TT: 06/09/2016 10:49:02 Confirmation # [id number] Dictation # [id number] [email or web address]
--- NOTE | 2016-06-09 10:56 | PN ---
DATE: 06/09/2016 I saw the patient in the intensive care unit. He is on the ventilator. Still has a pigtail catheter into his gallbladder, drained 30 mL last night. He is sedated. He is comfortable. He is on IV fluids, fentanyl patch, Merrem IV, Levophed, Pepcid, , Tylenol, vasopressin. PHYSICAL EXAMINATION: VITAL SIGNS: Temp 100.9, 60 pulse, 115/59 blood pressure, 93% O2 sat. HEAD: Atraumatic, normocephalic. He is on the ventilator. He is intubated. HEART: Regular rate. LUNGS: Decreased breath sounds but clear. ABDOMEN: Soft, nontender, pigtail catheter in the gallbladder. EXTREMITIES: No edema. LABORATORY DATA: He has a 10.4 white count, the best it has been. It was as high as 27. Hemoglobin 11.9, hematocrit 33, 22 platelets. He has a 143 sodium , potassium is low. Will have to replenish the potassium. BUN is 23, creatinine 0.7, GFR is greater than 60, sugar is 134, calcium 7.4, magnesium 1.9 , ALT is 142, ALT is 146, alk phos is 4.7. He is being seen by infectious disease, GI, surgery. He had a bone scan that was done yesterday. It showed nonvisualization of the gallbladder, common bile duct and small bowel, nonspecific. Can be seen with acute obstruction of the common bile duct, severe hepatocellular disease. Chest x-ray yesterday showed minimal bibasilar subsegmental atelectasis. The CAT scan of abdomen and pelvis is pending. He has consults with hematology for low platelets. Hopefully they will come in today. Surgery, GI, interventional radiology. I will replace his potassium. Continue aggressive treatment and care. Check his labs tomorrow. Hopefully get off the ventilator soon. The patient has small-bowel obstruction, cholecystitis, gallbladder stone, infected gallbladder, respiratory failure, sepsis, low potassium. Sean Nicholson DO cc: [id number] TT: 06/09/2016 10:55:15 Confirmation # [id number] Dictation # [id number] emily VALADEZ
--- NOTE | 2016-06-09 11:26 | RAD ---
HISTORY: ETT COMPARISON: Comparison is made to the previous study dated 06/08/2016 FINDINGS: LUNGS: Interval mild worsening of hazy opacity at the left lower lung could be atelectasis since the previous exam. The ET tube is seen at appropriate position. PLEURA: Blunting of the left costophrenic angle is again noted. CARDIOVASCULAR: Normal. OSSEOUS STRUCTURES: No significant abnormalities. VISUALIZED UPPER ABDOMEN: The NG tube seen extending to the abdomen. OTHER FINDINGS: Right jugular central line seen in place. IMPRESSION: Interval worsening of hazy opacity at the left lower lung likely atelectasis. Otherwise no interval change.
--- NOTE | 2016-06-09 11:41 | CP.PCM.PN ---
<Rogelio Cast - Last Filed: 06/09/16 13:20> Subjective - Date & Time of Evaluation Date of Evaluation: 06/09/16 Time of Evaluation: 07:15 - Subjective Subjective: PGY4 GI Fellow Progress Note Patient seen and examined bedside this morning. The patient has been weaned off of vasopressin and is now on sole pressure support with Levophed. Remains sedated with Precedex. 12 system ROS cannot be performed given clinical condition. Objective - Vital Signs/Intake and Output Vital Signs (last 24 hours): Temp Pulse Resp BP Pulse Ox 98.5 F 49 L 20 102/65 99 06/09/16 08:00 06/09/16 10:15 06/09/16 08:00 06/09/16 10:15 06/09/16 10:15 Intake and Output: 06/09/16 06/09/16 06:59 18:59 Intake Total 1844 Output Total 630 Balance 1214 - Medications Medications: Current Medications Acetaminophen (Tylenol 325mg Tab) 650 mg PO Q8 PRN PRN Reason: Fever >100.4 F Last Admin: 06/07/16 19:27 Dose: 650 mg Famotidine (Pepcid) 20 mg IVP DAILY YOLANDA Last Admin: 06/09/16 09:28 Dose: 20 mg Fentanyl (Fentanyl) 100 mcg IVP Q1 PRN PRN Reason: Pain, severe (8-10) Last Admin: 06/08/16 10:15 Dose: 100 mcg Fentanyl (Fentanyl) 75 mcg IVP Q1 PRN PRN Reason: Pain, moderate (4-7) Dexmedetomidine HCl (Precedex 4 Mcg/Ml (100 Ml)) 100 mls @ 3.856 mls/hr IV .Q24H PRN; Protocol; 0.2 MCG/KG/HR PRN Reason: Agitation Last Titration: 06/09/16 07:30 Dose: 0.5 mcg/kg/hr Vasopressin 20 units/ Sodium (Chloride) 101 mls @ 9.09 mls/hr IV .Q11H7M YOLANDA; 0.03 U/MIN PRN Reason: Protocol Last Admin: 06/08/16 12:00 Dose: Not Given Norepinephrine Bitartrate 32 (mg/ Sodium Chloride) 1,032 mls @ 96.75 mls/hr IV .[id number] PRN; Protocol; 50 MCG/MIN PRN Reason: MAP<65 Last Titration: 06/09/16 11:00 Dose: 5 mcg/min Dextrose/Sodium Chloride (Dextrose 5%/0.9% Ns 1000 Ml) 1,000 mls @ 100 mls/hr IV .Q10H YOLANDA Last Admin: 06/09/16 04:30 Dose: 100 mls/hr MEROPENEM-0.9% SODIUM CHLORIDE (Meropenem 1g/Ns 100ml Ivpb) 100 mls @ 100 mls/ hr IVPB Q8 YOLANDA PRN Reason: Protocol Stop: 06/15/16 13:01 Potassium Phosphate 15 mmole/ (Sodium Chloride) 255 mls @ 85 mls/hr IV Q3H YOLANDA Stop: 06/09/16 18:59 Last Admin: 06/09/16 10:36 Dose: 85 mls/hr - Labs Labs: 06/09/16 06:46 06/09/16 06:46 PT 12.0 Seconds (9.9-11.8) H 06/09/16 06:46 INR 1.11 (0.93-1.08) H 06/09/16 06:46 APTT 31.2 Seconds (23.7-30.8) H 06/09/16 06:46 - Constitutional Appears: Other (sedated, intubated) - Eye Exam Eye Exam: PERRL - ENT Exam ENT Exam: Mucous Membranes Dry Additional comments: ETT in place - Respiratory Exam Respiratory Exam: Clear to Ausculation Bilateral. absent: Rales, Rhonchi, Wheezes - Cardiovascular Exam Cardiovascular Exam: RRR, +S1, +S2 - GI/Abdominal Exam GI & Abdominal Exam: Soft, Hypoactive Bowel Sounds. absent: Distended, Firm, Guarding, Rigid, Tenderness, Organomegaly Additional comments: PTC in RUQ, bilious output - Extremities Exam Additional comments: 1+ LE edema - Skin Skin Exam: Dry, Warm Assessment and Plan - Assessment and Plan (Free Text) Assessment: Patient is a 75yo male with PMHx significant for prostate cancer s/p brachytherapy, MDS, alzheimer's dementia who presented from nursing facility with abdominal pain and vomiting. Consultation requested for abdominal pain, nausea and vomiting. -Sepsis with ESBL E coli -Acute cholangitis -Acalculous cholecystitis -Acute respiratory failure requiring mechanical ventilation -Lactic acidosis -Myelodysplastic syndrome -Alzheimer's dementia Plan: -S/P PTC POD#2 -Micro revealing E coli ESBL bacteremia as well as in bile from PTC -Continue broad spectrum antibiotic therapy -Continue to wean off pressors and ventilator as tolerated -Abdominal U/S and HIDA reviewed - HIDA abnormal likely from hepatocellular dysfunction in setting of sepsis -Awaiting repeat total bilirubin level as it has been uptrending; pending results, will plan ERCP -Surgery following, no planned surgical intervention at this time <Joel Miller - Last Filed: 06/09/16 20:37> Objective - Vital Signs/Intake and Output Vital Signs (last 24 hours): Temp Pulse Resp BP Pulse Ox 98.9 F 54 L 23 95/56 L 100 06/09/16 16:00 06/09/16 20:00 06/09/16 16:49 06/09/16 17:00 06/09/16 17:00 Intake and Output: 06/09/16 06/10/16 18:59 06:59 Intake Total 1043.3 Output Total 420 Balance 623.3 - Medications Medications: Current Medications Acetaminophen (Tylenol 325mg Tab) 650 mg PO Q8 PRN PRN Reason: Fever >100.4 F Last Admin: 06/07/16 19:27 Dose: 650 mg Famotidine (Pepcid) 20 mg IVP DAILY YOLANDA Last Admin: 06/09/16 09:28 Dose: 20 mg Fentanyl (Fentanyl) 100 mcg IVP Q1 PRN PRN Reason: Pain, severe (8-10) Last Admin: 06/08/16 10:15 Dose: 100 mcg Fentanyl (Fentanyl) 75 mcg IVP Q1 PRN PRN Reason: Pain, moderate (4-7) Dexmedetomidine HCl (Precedex 4 Mcg/Ml (100 Ml)) 100 mls @ 3.856 mls/hr IV .Q24H PRN; Protocol; 0.2 MCG/KG/HR PRN Reason: Agitation Last Titration: 06/09/16 07:30 Dose: 0.5 mcg/kg/hr Vasopressin 20 units/ Sodium (Chloride) 101 mls @ 9.09 mls/hr IV .Q11H7M OYLANDA; 0.03 U/MIN PRN Reason: Protocol Last Admin: 06/08/16 12:00 Dose: Not Given Norepinephrine Bitartrate 32 (mg/ Sodium Chloride) 1,032 mls @ 96.75 mls/hr IV .[id number] PRN; Protocol; 50 MCG/MIN PRN Reason: MAP<65 Last Titration: 06/09/16 12:50 Dose: 4 mcg/min Dextrose/Sodium Chloride (Dextrose 5%/0.9% Ns 1000 Ml) 1,000 mls @ 100 mls/hr IV .Q10H YOLANDA Last Admin: 06/09/16 04:30 Dose: 100 mls/hr MEROPENEM-0.9% SODIUM CHLORIDE (Meropenem 1g/Ns 100ml Ivpb) 100 mls @ 100 mls/ hr IVPB Q8 YOLANDA PRN Reason: Protocol Stop: 06/15/16 13:01 Last Admin: 06/09/16 14:10 Dose: 100 mls/hr - Labs Labs: 06/09/16 06:46 06/09/16 13:53 PT 12.0 Seconds (9.9-11.8) H 06/09/16 06:46 INR 1.11 (0.93-1.08) H 06/09/16 06:46 APTT 31.2 Seconds (23.7-30.8) H 06/09/16 06:46 Attending/Attestation - Attestation I have personally seen and examined this patient.: Yes I have fully participated in the care of the patient.: Yes I have reviewed all pertinent clinical information, including history, physical exam and plan: Yes Notes (Text): 06/09/16 12:32 75 year old male with h/o prostate cancer s/p brachytherapy, MDS, Hemolytic anemia, dementia admitted with septic shock, cholecystitis, and jaundice. 1. Acute cholecystitis 2. Jaundice 3. Dilated common bile duct 4. Cholelithiasis 5. Elevated LFTs Plan: -sepsis is improving -s/p percutaneous cholecystostomy tube -ESBL E coli bacteremia -on broad spectrum antibiotics -wean pressors per ICU -Abdominal U/S and HIDA reviewed, dilated CBD and cholelithiasis in setting of bacteremia/jaundice concerning for cholangitis, HIDA suggestive of hepatocellular dysfunction vs CBD obstruciton, but more consistent with hepatoceullar dysfunction in my opinion -if Bilirubin continues upward trend, recommend ERCP, potentially today to place stent -thrombocytopenia noted -prior viral hepatitis serologies negative -prior smooth muscle Ab positive which raises possibility of AIH
--- NOTE | 2016-06-09 11:47 | CP.PCM.PN ---
Subjective - Date & Time of Evaluation Date of Evaluation: 06/09/16 Time of Evaluation: 08:00 - Subjective Subjective: Patient continues to be on the ventilator, currently sedated but not in distress. He is still having fevers, the last one being 4 AM today. Objective - Vital Signs/Intake and Output Vital Signs (last 24 hours): Temp Pulse Resp BP Pulse Ox 100.9 F H 45 L 26 H 128/77 97 06/09/16 04:00 06/09/16 05:45 06/08/16 16:00 06/09/16 05:45 06/09/16 05:45 Intake and Output: 06/09/16 06/09/16 06:59 18:59 Intake Total 1844 Output Total 630 Balance 1214 - Medications Medications: Current Medications Acetaminophen (Tylenol 325mg Tab) 650 mg PO Q8 PRN PRN Reason: Fever >100.4 F Last Admin: 06/07/16 19:27 Dose: 650 mg Famotidine (Pepcid) 20 mg IVP DAILY YOLANDA Last Admin: 06/08/16 08:59 Dose: 20 mg Fentanyl (Fentanyl) 100 mcg IVP Q1 PRN PRN Reason: Pain, severe (8-10) Last Admin: 06/08/16 10:15 Dose: 100 mcg Fentanyl (Fentanyl) 75 mcg IVP Q1 PRN PRN Reason: Pain, moderate (4-7) Meropenem 1 gm/ Sodium (Chloride) 100 mls @ 100 mls/hr IVPB Q8 YOLANDA PRN Reason: Protocol Stop: 06/15/16 13:01 Last Admin: 06/09/16 05:52 Dose: 100 mls/hr Dexmedetomidine HCl (Precedex 4 Mcg/Ml (100 Ml)) 100 mls @ 3.856 mls/hr IV .Q24H PRN; Protocol; 0.2 MCG/KG/HR PRN Reason: Agitation Last Titration: 06/09/16 00:00 Dose: 0.7 mcg/kg/hr Vasopressin 20 units/ Sodium (Chloride) 101 mls @ 9.09 mls/hr IV .Q11H7M YOLANDA; 0.03 U/MIN PRN Reason: Protocol Last Admin: 06/08/16 12:00 Dose: Not Given Norepinephrine Bitartrate 32 (mg/ Sodium Chloride) 1,032 mls @ 96.75 mls/hr IV .[id number] PRN; Protocol; 50 MCG/MIN PRN Reason: MAP<65 Last Titration: 06/08/16 18:00 Dose: 5 mcg/min Dextrose/Sodium Chloride (Dextrose 5%/0.9% Ns 1000 Ml) 1,000 mls @ 100 mls/hr IV .Q10H YOLANDA Last Admin: 06/09/16 04:30 Dose: 100 mls/hr - Labs Labs: 06/08/16 05:30 06/08/16 05:30 PT 12.0 Seconds (9.9-11.8) H 06/09/16 06:46 INR 1.11 (0.93-1.08) H 06/09/16 06:46 APTT 31.2 Seconds (23.7-30.8) H 06/09/16 06:46 - Constitutional Appears: Other (Intubated and sedated) - Head Exam Head Exam: NORMAL INSPECTION - ENT Exam Additional comments: ET tube in place - Neck Exam Neck Exam: absent: Lymphadenopathy, Meningismus Additional comments: right internal jugular central venous catheter site clean and intact - Respiratory Exam Respiratory Exam: Decreased Breath Sounds - Cardiovascular Exam Cardiovascular Exam: +S1, +S2 - GI/Abdominal Exam GI & Abdominal Exam: Soft. absent: Tenderness Additional comments: right upper quadrant abdominal drain still with serosanguinous fluid Assessment and Plan - Assessment and Plan (Free Text) Plan: Assessment Septic shock with ventilator-dependent respiratory failure and acute renal failure from ESBL-producing multidrug resistant E. coli bacteremia probably from biliary tree infection (ascending cholangitis or acute cholecystitis) S/P abdominal drain placement into the biliary tree POD #2 Alzheimer's dementia history of hemolytic anemia prostate CA history of depression history of bowel obstruction history of E. coli bacteremia and sepsis probably biliary tree in origin History of Klebsiella UTI Plan Continue Meropenem (day 3); repeat blood cx, urine cx and CXR ordered today because of the persistent fevers; will also order sputum cx; given one dose of IV Vancomycin will continue to continue to monitor clinically, trend WBC count Overall prognosis is poor
[2016-06-09] MEDS ORDERED: Vancomycin 1gm in NS 250ml 250 ML IVPB STA (11:49)
--- NOTE | 2016-06-09 12:26 | CON ---
DATE: 06/09/2016 HEMATOLOGY CONSULTATION This is a 75-year-old man who has a thrombocytopenia. The patient was admitted for probably cholecys titis and sepsis. PHYSICAL EXAMINATION: SKIN: No petechiae, no bruises. HEENT: Anicteric. NODES: None palpable in the axillary, cervical, supraclavicular, or inguinal regions. LUNGS: The patient is intubated. HEART: S1, S2. ABDOMEN: Shows no liver, no spleen, no ascites, no rebound. EXTREMITIES: No edema. CENTRAL NERVOUS SYSTEM: Plantars are downgoing bilaterally. LABORATORY DATA: His platelet count went down from 113 on admission down to 32 as of yesterday. How ever, his PT, PTT, and fibrinogen are normal. As a matter of fact, his fibrinogen is elevated at 580 , as an acute phase reactant. His white count was up to 26,000. It is now down to 13, and he came i n with an elevated bilirubin of 10, and elevated liver function tests. His CAT scan showed, interestingly enough, the spleen of 15 cm on the ultrasound. So at this point, my feeling is that this is a thrombocytopenia secondary to sepsis. One has to be c oncerned of folic acid deficiency, and I would advise giving folic acid IV maybe ____ mg IV just to e nsure that something simple like that is not causing thrombocytopenia. We will hold off on transfusion of platelets, as there is no bleeding, and it does not seem to be any obvious bleeding right now. Vimal Maria MD cc: [id number] TT: 06/09/2016 12:25:54 Confirmation # [id number] Dictation # [id number] [email or web address]
[2016-06-09 13:59] LABS: URINE BILIRUBIN LARGE (NEGATIVE); URINE BLOOD TRACE-INTACT (NEGATIVE); URINE GLUCOSE (UA) 100 mg/dL (NEGATIVE); URINE KETONE TRACE mg/dL (NEGATIVE); URINE LEUKOCYTE ESTERASE NEGATIVE Leu/uL (NEGATIVE); URINE PROTEIN 30 mg/dL (<30 mg/dL)
[2016-06-09 14:06] LABS: URINE APPEARANCE CLEAR (CLEAR); URINE COLOR YELLOW (YELLOW)
[2016-06-09 14:08] LABS: ALKALINE PHOSPHATASE 147 U/L (38-133); ALT/SGPT 125 U/L (7-56); AST/SGOT 55 U/L (15-59); BILIRUBIN,TOTAL 14.6 mg/dL (0.2-1.3); BLOOD UREA NITROGEN 23 mg/dL (7-21); CALCIUM 7.3 mg/dL (8.4-10.5); CARBON DIOXIDE 23 mmol/L (21-33); CHLORIDE 112 mmol/L (98-107); GFR AFRICAN-AMERICAN > 60; GLUCOSE,RANDOM 123 mg/dL (70-110); POTASSIUM 3.5 mmol/L (3.6-5.0); SODIUM 145 mmol/L (132-148); TOTAL PROTEIN 4.6 g/dL (5.8-8.3)
[2016-06-09 14:09] LABS: URINE WBC NEGATIVE /hpf (0-6)
[2016-06-09] MEDS: Meropenem 1g/NS 100mL IVPB 100 ML IVPB SCH ×2 (14:10→22:02)
[2016-06-09 14:24] LABS: ARTERIAL BLOOD GAS HCO3 23.7 mmol/L (21-28); ARTERIAL BLOOD GAS PH 7.34 (7.35-7.45)
[2016-06-09] MEDS ORDERED: Iohexol 240 (50 ml) ONE (15:43)
[2016-06-09] MEDS ORDERED: Indomethacin 50 MG Suppository PR ONE (15:48)
[2016-06-09 18:50] LABS: VENOUS BLOOD GAS BASE EXCESS -0.5 mmol/L (0.0-2.0)
[2016-06-10] MEDS: Meropenem 1g/NS 100mL IVPB 100 ML IVPB SCH ×3 (05:17→23:07)
[2016-06-10 06:27] LABS: ADD MANUAL DIFF? NO
[2016-06-10 06:35] LABS: BASO # 0.01 K/mm3 (0.0-2.0); BASO % 0.1 % (0.0-3.0); EOS # 0.1 (0.0-0.7); EOS % 0.9 % (1.5-5.0); GRAN # 5.79 (1.4-6.5); GRAN % 84.5 % (50.0-68.0); HEMATOCRIT 30.5 % (42.0-52.0); LYMPH # 0.5 (1.2-3.4); LYMPH % 6.6 % (22.0-35.0); MEAN CORPUSCULAR HEMOGLOBIN 31.9 pg (25.0-35.0); MEAN CORPUSCULAR HGB CONC 35.4 g/dl (31.0-37.0); MEAN PLATELET VOLUME 10.8 fl (7.0-11.0); MONO # 0.5 (0.1-0.6); MONO % 7.9 % (1.0-6.0); RED CELL DISTRIBUTION WIDTH 14.6 % (11.5-14.5); WHITE BLOOD COUNT 6.9 10^3/ul (4.5-11.0)
[2016-06-10 06:42] LABS: PLATELET COUNT 22 10^3/uL (120.0-450.0)
--- NOTE | 2016-06-10 08:27 | RAD ---
HISTORY: ett, ngt COMPARISON: Comparison chest dated 06/09/2016 FINDINGS: LUNGS: In situ ETT, tip of which lies approximately 3.7 cm above christiano. Right IJ and central venous line with tip in the SVC/RA junction unchanged. Mild bibasilar atelectasis. . Questionable small bilateral effusions PLEURA: No pneumothorax apparent. CARDIOVASCULAR: Heart appears borderline enlarged OSSEOUS STRUCTURES: No significant abnormalities. VISUALIZED UPPER ABDOMEN: Normal. OTHER FINDINGS: None. IMPRESSION: ETT and right IJ central venous line as above. Mild bibasilar atelectasis with questionable small bilateral effusions.
--- NOTE | 2016-06-10 08:28 | CP.PCM.PN ---
<Rogelio Cast - Last Filed: 06/10/16 12:04> Subjective - Date & Time of Evaluation Date of Evaluation: 06/10/16 Time of Evaluation: 08:20 - Subjective Subjective: PGY4 GI Fellow Progress Note Patient seen and examined bedside this morning. The patient is intubated, off sedation and able to nod yes/no to some simple questions. He denied any pain at this time despite persistent discomfort with RUQ palpation. Currently on CPAP trial. 12 system ROS cannot be performed given clinical condition. Objective - Vital Signs/Intake and Output Vital Signs (last 24 hours): Temp Pulse Resp BP Pulse Ox 99.8 F H 49 L 26 H 88/42 L 100 06/10/16 08:00 06/10/16 08:00 06/10/16 08:00 06/10/16 06:55 06/10/16 08:00 Intake and Output: 06/10/16 06/10/16 06:59 18:59 Intake Total 1423 Output Total 580 Balance 843 - Medications Medications: Current Medications Acetaminophen (Tylenol 325mg Tab) 650 mg PO Q8 PRN PRN Reason: Fever >100.4 F Last Admin: 06/07/16 19:27 Dose: 650 mg Famotidine (Pepcid) 20 mg IVP DAILY YOLANDA Last Admin: 06/09/16 09:28 Dose: 20 mg Fentanyl (Fentanyl) 100 mcg IVP Q1 PRN PRN Reason: Pain, severe (8-10) Last Admin: 06/08/16 10:15 Dose: 100 mcg Fentanyl (Fentanyl) 75 mcg IVP Q1 PRN PRN Reason: Pain, moderate (4-7) Dexmedetomidine HCl (Precedex 4 Mcg/Ml (100 Ml)) 100 mls @ 3.856 mls/hr IV .Q24H PRN; Protocol; 0.2 MCG/KG/HR PRN Reason: Agitation Last Titration: 06/10/16 07:20 Dose: 0 mcg/kg/hr Vasopressin 20 units/ Sodium (Chloride) 101 mls @ 9.09 mls/hr IV .Q11H7M YOLANDA; 0.03 U/MIN PRN Reason: Protocol Last Admin: 06/09/16 20:44 Dose: 9.09 mls/hr Norepinephrine Bitartrate 32 (mg/ Sodium Chloride) 1,032 mls @ 96.75 mls/hr IV .[id number] PRN; Protocol; 50 MCG/MIN PRN Reason: MAP<65 Last Titration: 06/10/16 06:31 Dose: 0 mcg/min Dextrose/Sodium Chloride (Dextrose 5%/0.9% Ns 1000 Ml) 1,000 mls @ 100 mls/hr IV .Q10H YOLANDA Last Admin: 06/09/16 04:30 Dose: 100 mls/hr MEROPENEM-0.9% SODIUM CHLORIDE (Meropenem 1g/Ns 100ml Ivpb) 100 mls @ 100 mls/ hr IVPB Q8 YOLANDA PRN Reason: Protocol Stop: 06/15/16 13:01 Last Admin: 06/10/16 05:17 Dose: 100 mls/hr Potassium Chloride (Potassium Chloride 10 Meq/100 Ml) 100 mls @ 100 mls/hr IVPB Q2H [facility] Stop: 06/10/16 10:44 - Labs Labs: 06/10/16 06:15 06/09/16 13:53 PT 12.0 Seconds (9.9-11.8) H 06/09/16 06:46 INR 1.11 (0.93-1.08) H 06/09/16 06:46 APTT 31.2 Seconds (23.7-30.8) H 06/09/16 06:46 - Constitutional Appears: Other (intubated, off sedation) - Eye Exam Eye Exam: EOMI, PERRL, Scleral icterus - ENT Exam ENT Exam: Mucous Membranes Dry - Respiratory Exam Respiratory Exam: Clear to Ausculation Bilateral. absent: Rales, Rhonchi, Wheezes - Cardiovascular Exam Cardiovascular Exam: RRR, +S1, +S2 - GI/Abdominal Exam GI & Abdominal Exam: Distended, Soft, Tenderness (RUQ), Normal Bowel Sounds. absent: Firm, Guarding, Rigid, Organomegaly - Extremities Exam Additional comments: 2+ B/L LE edema - Neurological Exam Neurological Exam: Alert, Awake - Skin Skin Exam: Dry, Warm Additional comments: jaundice Assessment and Plan - Assessment and Plan (Free Text) Assessment: Patient is a 75yo male with PMHx significant for prostate cancer s/p brachytherapy, MDS, alzheimer's dementia who presented from nursing facility with abdominal pain and vomiting. Consultation requested for abdominal pain, nausea and vomiting. -Sepsis with ESBL E coli -Acute cholangitis -Acalculous cholecystitis -Choledocolithiasis -Acute respiratory failure requiring mechanical ventilation -Lactic acidosis -Myelodysplastic syndrome -Alzheimer's dementia Plan: -S/P ERCP with CBD stent placement POD#1, PTC POD#3 -Will need repeat ERCP in 3 months for stent removal -Choledocolithiasis noted but not treated given thrombocytopenia/medical instability -Awaiting AM CMP -SMA noted to be weakly positive in past (1:20) -Currently weaning off ventilator, on PS/CPAP -Was weaned off pressor support but required re-initiation of vasopressin this AM due to hypotension -Continue broad spectrum antibiotic therapy, discussed case with ID -Surgery following, no planned surgical intervention at this time -Will discuss case with [facility]-Hepatology <Heike Gomez MD - Last Filed: 06/10/16 17:28> Objective - Vital Signs/Intake and Output Vital Signs (last 24 hours): Temp Pulse Resp BP Pulse Ox 99.6 F 51 L 21 108/63 97 06/10/16 16:00 06/10/16 16:10 06/10/16 16:00 06/10/16 16:00 06/10/16 16:00 Intake and Output: 06/10/16 06/10/16 06:59 18:59 Intake Total 1423 1945 Output Total 580 30 Balance 843 1915 - Medications Medications: Current Medications Acetaminophen (Tylenol 325mg Tab) 650 mg PO Q8 PRN PRN Reason: Fever >100.4 F Last Admin: 06/07/16 19:27 Dose: 650 mg Famotidine (Pepcid) 20 mg IVP DAILY [facility] Last Admin: 06/10/16 09:49 Dose: 20 mg Fentanyl (Fentanyl) 100 mcg IVP Q1 PRN PRN Reason: Pain, severe (8-10) Last Admin: 06/08/16 10:15 Dose: 100 mcg Fentanyl (Fentanyl) 75 mcg IVP Q1 PRN PRN Reason: Pain, moderate (4-7) Dexmedetomidine HCl (Precedex 4 Mcg/Ml (100 Ml)) 100 mls @ 3.856 mls/hr IV .Q24H PRN; Protocol; 0.2 MCG/KG/HR PRN Reason: Agitation Last Titration: 06/10/16 07:20 Dose: 0 mcg/kg/hr Vasopressin 20 units/ Sodium (Chloride) 101 mls @ 9.09 mls/hr IV .Q11H7M YOLANDA; 0.03 U/MIN PRN Reason: Protocol Last Admin: 06/10/16 13:30 Dose: 9.09 mls/hr Dextrose/Sodium Chloride (Dextrose 5%/0.9% Ns 1000 Ml) 1,000 mls @ 100 mls/hr IV .Q10H YOLANDA Last Admin: 06/09/16 04:30 Dose: 100 mls/hr MEROPENEM-0.9% SODIUM CHLORIDE (Meropenem 1g/Ns 100ml Ivpb) 100 mls @ 100 mls/ hr IVPB Q8 YOLANDA PRN Reason: Protocol Stop: 06/15/16 13:01 Last Admin: 06/10/16 13:40 Dose: 100 mls/hr Norepinephrine Bitartrate 8 mg (/ Sodium Chloride) 258 mls @ 7.74 mls/hr IV .Q24H PRN; Protocol; 4 MCG/MIN PRN Reason: TITRATE PER MD ORDER Last Titration: 06/10/16 13:30 Dose: 2 mcg/min Levalbuterol HCl (Xopenex) 0.63 mg IH [id number] YOLANDA Last Admin: 06/10/16 13:22 Dose: 0.63 mg - Labs Labs: 06/10/16 06:15 06/10/16 06:15 PT 12.0 Seconds (9.9-11.8) H 06/09/16 06:46 INR 1.11 (0.93-1.08) H 06/09/16 06:46 APTT 31.2 Seconds (23.7-30.8) H 06/09/16 06:46 Attending/Attestation - Attestation I have personally seen and examined this patient.: Yes I have fully participated in the care of the patient.: Yes I have reviewed all pertinent clinical information, including history, physical exam and plan: Yes Notes (Text): 06/10/16 17:12 75yo male with PMHx significant for prostate cancer s/p brachytherapy, MDS, alzheimer's dementia who presented from nursing facility with abdominal pain and vomiting. Consultation requested for abdominal pain, nausea and vomiting with ESBL e coli s/p ERCP with stent placement. Needs stent removal in 3 months. Continue antibiotics. Extubatd today on CPAP. Pigtail draining clear bile. SMA weakly +. Will not treat as autoimmune as rest of serologies are negative. Surgery following. Rest of plan as per MICU. Will call [facility] for second opinion -Sepsis with ESBL E coli -Acute cholangitis -Acalculous cholecystitis -Choledocolithiasis -Acute respiratory failure requiring mechanical ventilation -Lactic acidosis -Myelodysplastic syndrome -Alzheimer's dementia
--- NOTE | 2016-06-10 09:10 | PN ---
DATE: 06/10/2016 The patient seen and examined at bedside. He is wide awake and following commands. Precedex is off. Night was uneventful. The patient tolerated pressure support 5/5 entire night. He is afebrile. He is on vasopressin 0.03 units per minute and his blood pressure is 120/72 on that. The patient is off of norepinephrine at present time. Heart rate 50, oxygen saturation 100% on 40 % FIO2, end-tidal CO2 on the monitor 29. The patient is able to follow request to take a deep breath which amounts to more than 500 mL of tidal volume at that time. PHYSICAL EXAMINATION: HEAD AND NECK: Atraumatic. LUNGS: Clear to auscultation bilaterally. HEART: Regular rate and rhythm. S1, S2 normal. ABDOMEN: Soft, nontender, nondistended. The patient does have cholecystostomy tube which drained a minimal amount of fluid overnight. MUSCULOSKELETAL: No C/C/E. NEUROLOGIC: The patient moves all extremities spontaneously. SKIN: Moist. PSYCHIATRIC: The patient is following commands. LABORATORY DATA: WBC 6.9, hemoglobin 10.8, platelet count still 22. TBilli 15, ALT 63, AST 112. Chest x-ray: No acute pulmonary disease. MEDICATIONS: D5 normal saline at 100 mL per hour, meropenem, Pepcid 20 mg IV daily, Tylenol p.r.n., vasopressin 0.03 units per minute. ASSESSMENT AND PLAN: This is a 75-year-old gentleman who presented with septic shock secondary to ascending cholangitis and acute cholecystitis, status post cholecystostomy tube and endoscopic retrograde cholangiopancreatography. At present time, the patient is on meropenem; infectious disease service is following him as well. He is weaned off vasopressor support; however, still requires minimal supplemental dose of vasopressin. The patient tolerated pressure support trial overnight. He is fully awake and alert. The patient will be extubated. Will continue to maintain euvolemia, euglycemia, normothermia and oxygen saturation more than 90%. Will continue with deep venous thrombosis and gastrointestinal prophylaxis. Addendum: patient was extubated to BPAP and then tapered to high flow02, which he tolerates well. Had to start NE 2 mcg/min, but once cleared by swallow eval, will start midodrine PO if needed to expedite weaning off NE (Nava et al, CHEST 2016). ccm time 40 min Bryce Bautista MD cc: [id number] TT: 06/10/2016 09:09:21 Confirmation # [id number] Dictation # [id number] mn ALLYSON
--- NOTE | 2016-06-10 09:10 | PN ---
DATE: 06/10/2016 He is still in the intensive care unit. He is intubated on multiple medications, IV fluids, fentanyl , Merrem IV, Pepcid, Precedex, Tylenol and vasopressin. He is fairly stable at this time and hoping to be weaned today if it is possible. PHYSICAL EXAMINATION: VITAL SIGNS: He has a 99.2 temp, 48 pulse, 121/56 blood pressure, 100% on 40% FiO2. HEENT: Head is atraumatic, normocephalic. He is intubated. HEART: Regular rate. LUNGS: Decreased breath sounds, but clear to auscultation. ABDOMEN: Soft. He has a pigtail catheter in the gallbladder. EXTREMITIES: No edema. LABORATORY DATA: He has a 6.9 white count, 10.8 hemoglobin, 30.5 hematocrit with 22 platelets. I ca lled in hematology. He has a 145 sodium, potassium 3.5. We will give him 2 more K-riders today. BU N is 23, creatinine 0.7, GFR is greater than 60, sugar is 123, calcium is 7.3, total bili is 14.6, AL T is 125, ALT is 147. Total protein is 4.6. His hepatitis screen is negative. 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 Since there is no bleeding, we are going to hold off on platelet transfusions. Will keep an eye on the lev els as per hematology. He is not in any distress. He is still on the ventilator. He was in septic shock, respiratory failure, acute renal failure, improving. I will call pulmonary in to help us. Ch shea his labs tomorrow, replace his potassium. He has a severe septic gallbladder. Sean Nicholson DO cc: [id number] TT: 06/10/2016 09:09:48 Confirmation # [id number] Dictation # [id number] mn
[2016-06-10 09:13] LABS: ARTERIAL BLOOD GAS HCO3 22.9 mmol/L (21-28); ARTERIAL BLOOD GAS O2 CAPACITY 14.5 mL/dl (16-24); ARTERIAL BLOOD GAS O2 CONTENT 14.5 ML/dl (15-23); ARTERIAL BLOOD GAS PH 7.49 (7.35-7.45); ARTERIAL BLOOD HGB O2 SAT 96.6 % (95.0-98.0); CARBOXYHEMOGLOBIN 2.8 % (0.5-1.5); HHB -0.2 % (0-5); METHEMOGLOBIN 0.9 % (0.0-3.0)
[2016-06-10 09:19] LABS: ALB/GLOB RATIO 0.9 (1.1-1.8); ALKALINE PHOSPHATASE 173 U/L (38-133); ALT/SGPT 112 U/L (7-56); AST/SGOT 63 U/L (15-59); BLOOD UREA NITROGEN 24 mg/dL (7-21); CALCIUM 7.3 mg/dL (8.4-10.5); CARBON DIOXIDE 24 mmol/L (21-33); CHLORIDE 114 mmol/L (98-107); GFR AFRICAN-AMERICAN > 60; GLUCOSE,RANDOM 146 mg/dL (70-110); MAGNESIUM 1.9 mg/dL (1.7-2.2); POTASSIUM 3.2 mmol/L (3.6-5.0); SODIUM 146 mmol/L (132-148); TOTAL PROTEIN 4.6 g/dL (5.8-8.3)
[2016-06-10 09:35] LABS: PHOSPHOROUS 1.4 mg/dL (2.5-4.5)
[2016-06-10] MEDS: Potassium Chloride 10 mEq 100 ML IVPB SCH ×2 (09:48→10:52)
--- NOTE | 2016-06-10 10:24 | CON ---
DATE: 06/10/2016 PULMONARY CONSULTATION REASON FOR CONSULTATION: Respiratory failure. REFERRING PHYSICIAN: Sean Nicholson DO. History is obtained via extensive discussion with Dr. Bautista (ICU). I have also reviewed the chart at length. The patient is currently intubated. HISTORY OF PRESENT ILLNESS: The patient is a 75-year-old chronically ill male, shelter patient, with past medical history significant for hemolytic anemia , Alzheimer's dementia, prostate cancer, GI bleeding, bowel obstruction, who presented to - originally on 06/06/16 - with main complaints of abdominal pain, nausea and vomiting, and fevers. In the Emergency Room, CAT scan of the abdomen and pelvis was done. On the CAT scan of the abdomen and pelvis, gallbladder distention with evidence of gallbladder wall thickness and pericholecystic fluid was noted. The patient was , thus, admitted for additional evaluation. Again, I did discuss the case with Dr. Bautista at length. Apparently, the patient did have a complicated hospital course,but is now much improved. Subsequent diagnoses made were: acute cholecystitis, as well as acute cholangitis. The patient also had a cholecystotomy drain placed. Because of the sepsis and septic shock, the patient has been maintained on mechanical ventilation. He is currently tolerating CPAP and pressure support well this morning. Oxygen saturation on CPAP and pressure support is 100%. I am, thus, asked to evaluate on this case for additional ventilator management. There is no history of preceding shortness of breath, cough, or sputum production. There is also no preceding history of chest pain, coughing up of blood or chest pain - made worse with deep respirations. There have been temperatures throughout the patient's hospital stay. The temperatures have been defervescing over the past day. There is no history of chills or infectious exposure. There is no history of night sweats, weight loss, or appetite change - prior to the above events. No history of leg or calf pains. No history of syncope or diaphoresis. No history of recent travel or trauma. REVIEW OF SYSTEMS: No acute urinary symptoms. No new neurological or musculoskeletal complaints. The rest of the review of systems is negative. ALLERGIES: CEFTRIAXONE. SOCIAL HISTORY: Positive for tobacco, negative for alcohol. FAMILY HISTORY: No inheritable diseases. HOME MEDICATIONS: Include Protonix, milk of magnesia, Synthroid, Feosol, acetaminophen, donepezil. PHYSICAL EXAMINATION: GENERAL: The patient is currently on CPAP and pressure support. He appears quite comfortable. VITAL SIGNS: Temperature is 99.8. Pulse on the monitor is 56, respiratory rate approximately 20. Last blood pressure recorded in the chart 88/42. Oxygen saturation on CPAP and pressure support is 100%. HEENT: Normocephalic, atraumatic. NECK: No JVD. CARDIOVASCULAR: Positive S1, S2. No S3. LUNGS: Decreased breath sounds at the bases. Minimal bilateral rhonchi. No wheezing. EXTREMITIES: Positive for mild edema. No cyanosis, no clubbing. Calves are nontender to palpation. GASTROINTESTINAL: Abdomen is soft. It is mildly distended and tender to palpation. Bowel sounds are decreased. There is a cholecystotomy drain in place. SKIN: No acute rashes. NEUROLOGIC: Limited at the present time. PERTINENT LABORATORY DATA: Chest x-ray was done this morning and reviewed. There is very minimal bibasilar atelectasis noted. There are no significant infiltrates. Arterial blood gas has been ordered. CBC: White count 6.9, hemoglobin 10.8, hematocrit 30.5, platelets of 22,000. Complete metabolic profile: Potassium 35, chloride 112, BUN 23, glucose 123, calcium 7.3. Bilirubin 14.6, ALT 125, alkaline phosphatase 147, total protein 4.6, albumin 2.2. The rest of the metabolic profile is within normal limits. IMPRESSION: 1. Respiratory failure. 2. Septic shock. 3. Ascending cholangitis. 4. Acute cholecystitis. 5. Mild anemia. 6. Thrombocytopenia. 7. Increased liver function enzymes. PLAN: Again, I did discuss the case with Dr. Bautista (ICU) at length. The patient did present to - originally on 06/06/16 - from the shelter - with abdominal pain, nausea and vomiting, and fevers. Subsequent diagnoses made were ascending cholangitis, as well as acute cholecystitis. Because of the septic shock, the patient was maintained on mechanical ventilation. I did review the last x-ray - as above. There is only very minimal atelectasis at both bases. There are no significant infiltrates. Again, I have ordered a stat arterial blood gas to be done - and I will be called with those results. Plan is for hopeful extubation later today. On physical examination,there is mild bronchospasm noted. I will start xopenex nebulizer treatments this morning. I would continue with the GI and surgical evaluations. Inputs are noted. I would continue with the antibiotic coverage, as per infectious disease. Temperatures are resolving. The leukocytosis is now fully resolved. Repeat labs and x-ray will be ordered and followed. Clinical status of the patient has significantly improved - compared to the initial presentation. However, the overall status/prognosis of this chronically -ill male remains very guarded. I will discuss the above with Dr. Nicholson. Thank you very much for this pulmonary consultation. Medardo Whittaker MD cc: [phone] TT: 06/10/2016 10:24:31 Confirmation # [id number] Dictation # [id number] jn MTDD
[2016-06-10] MEDS: Potassium Phosphate 15 MMOLE in Sodium Chloride 0.9% 250 ML IVPB SCH ×2 (10:51→13:40)
--- NOTE | 2016-06-10 11:04 | CP.PCM.PN ---
Subjective - Date & Time of Evaluation Date of Evaluation: 06/10/16 Time of Evaluation: 10:59 - Subjective Subjective: SURGERY NOTE FOR DR. JOHNSON 75M seen and examined at bedside. Patient is intubated, but not sedated. Currently on vasopressin. He is alert and able to follow simple commands. Objective - Vital Signs/Intake and Output Vital Signs (last 24 hours): Temp Pulse Resp BP Pulse Ox 99.8 F H 47 L 26 H 88/42 L 100 06/10/16 08:00 06/10/16 10:00 06/10/16 08:00 06/10/16 06:55 06/10/16 08:00 Intake and Output: 06/10/16 06/10/16 06:59 18:59 Intake Total 1423 Output Total 580 Balance 843 - Medications Medications: Current Medications Acetaminophen (Tylenol 325mg Tab) 650 mg PO Q8 PRN PRN Reason: Fever >100.4 F Last Admin: 06/07/16 19:27 Dose: 650 mg Famotidine (Pepcid) 20 mg IVP DAILY YOLANDA Last Admin: 06/10/16 09:49 Dose: 20 mg Fentanyl (Fentanyl) 100 mcg IVP Q1 PRN PRN Reason: Pain, severe (8-10) Last Admin: 06/08/16 10:15 Dose: 100 mcg Fentanyl (Fentanyl) 75 mcg IVP Q1 PRN PRN Reason: Pain, moderate (4-7) Dexmedetomidine HCl (Precedex 4 Mcg/Ml (100 Ml)) 100 mls @ 3.856 mls/hr IV .Q24H PRN; Protocol; 0.2 MCG/KG/HR PRN Reason: Agitation Last Titration: 06/10/16 07:20 Dose: 0 mcg/kg/hr Vasopressin 20 units/ Sodium (Chloride) 101 mls @ 9.09 mls/hr IV .Q11H7M YOLANDA; 0.03 U/MIN PRN Reason: Protocol Last Admin: 06/09/16 20:44 Dose: 9.09 mls/hr Dextrose/Sodium Chloride (Dextrose 5%/0.9% Ns 1000 Ml) 1,000 mls @ 100 mls/hr IV .Q10H YOLANDA Last Admin: 06/09/16 04:30 Dose: 100 mls/hr MEROPENEM-0.9% SODIUM CHLORIDE (Meropenem 1g/Ns 100ml Ivpb) 100 mls @ 100 mls/ hr IVPB Q8 YOLANDA PRN Reason: Protocol Stop: 06/15/16 13:01 Last Admin: 06/10/16 05:17 Dose: 100 mls/hr Magnesium Sulfate/Dextrose (Magnesium Sulfate 1 Gm/100 Ml D5w) 100 mls @ 100 mls/hr IVPB ONCE ONE Stop: 06/10/16 11:18 Potassium Phosphate 15 mmole/ (Sodium Chloride) 255 mls @ 127.5 mls/hr IVPB Q2H YOLANDA Stop: 06/10/16 14:59 Norepinephrine Bitartrate 8 mg (/ Sodium Chloride) 258 mls @ 7.74 mls/hr IV .Q24H PRN; Protocol; 4 MCG/MIN PRN Reason: TITRATE PER MD ORDER Levalbuterol HCl (Xopenex) 0.63 mg IH [id number] YOLANDA - Labs Labs: 06/10/16 06:15 06/10/16 06:15 PT 12.0 Seconds (9.9-11.8) H 06/09/16 06:46 INR 1.11 (0.93-1.08) H 06/09/16 06:46 APTT 31.2 Seconds (23.7-30.8) H 06/09/16 06:46 - Head Exam Head Exam: ATRAUMATIC - Respiratory Exam Respiratory Exam: Clear to Ausculation Bilateral, NORMAL BREATHING PATTERN - Cardiovascular Exam Cardiovascular Exam: REGULAR RHYTHM, +S1, +S2 - GI/Abdominal Exam GI & Abdominal Exam: Soft, Tenderness. absent: Distended, Firm, Guarding, Rigid , Rebound Additional comments: PTC in place, draining serosanguinous - Skin Skin Exam: Dry, Intact, Normal Color, Warm Assessment and Plan - Assessment and Plan (Free Text) Assessment: 75M s/p ERCP with CBD stent placement POD#1, PTC POD#3 HIDA: positive - bile does not leave liver Plan: - repeat ERCP in 3 months for stent removal as per GI - No surgical intervention at this time. - will continue to follow Further recs discuss with Dr. Raghu Garduno, PGY1
[2016-06-10] MEDS ORDERED: Potassium Phosphate 3 mmol/ml Inj IV SCH (12:00)
--- NOTE | 2016-06-10 12:21 | CP.PCM.PN ---
Subjective - Date & Time of Evaluation Date of Evaluation: 06/10/16 Time of Evaluation: 08:00 - Subjective Subjective: Patient continues to be on the ventilator but is less sedated today, afebrile overnight, had ERCP done yesterday without sphincterotomy. Objective - Vital Signs/Intake and Output Vital Signs (last 24 hours): Temp Pulse Resp BP Pulse Ox 100.3 F H 55 L 23 103/48 L 100 06/10/16 11:42 06/10/16 12:00 06/10/16 11:42 06/10/16 11:42 06/10/16 11:42 Intake and Output: 06/10/16 06/10/16 06:59 18:59 Intake Total 1423 Output Total 580 Balance 843 - Medications Medications: Current Medications Acetaminophen (Tylenol 325mg Tab) 650 mg PO Q8 PRN PRN Reason: Fever >100.4 F Last Admin: 06/07/16 19:27 Dose: 650 mg Famotidine (Pepcid) 20 mg IVP DAILY YOLANDA Last Admin: 06/10/16 09:49 Dose: 20 mg Fentanyl (Fentanyl) 100 mcg IVP Q1 PRN PRN Reason: Pain, severe (8-10) Last Admin: 06/08/16 10:15 Dose: 100 mcg Fentanyl (Fentanyl) 75 mcg IVP Q1 PRN PRN Reason: Pain, moderate (4-7) Dexmedetomidine HCl (Precedex 4 Mcg/Ml (100 Ml)) 100 mls @ 3.856 mls/hr IV .Q24H PRN; Protocol; 0.2 MCG/KG/HR PRN Reason: Agitation Last Titration: 06/10/16 07:20 Dose: 0 mcg/kg/hr Vasopressin 20 units/ Sodium (Chloride) 101 mls @ 9.09 mls/hr IV .Q11H7M YOLANDA; 0.03 U/MIN PRN Reason: Protocol Last Admin: 06/09/16 20:44 Dose: 9.09 mls/hr Dextrose/Sodium Chloride (Dextrose 5%/0.9% Ns 1000 Ml) 1,000 mls @ 100 mls/hr IV .Q10H YOLANDA Last Admin: 06/09/16 04:30 Dose: 100 mls/hr MEROPENEM-0.9% SODIUM CHLORIDE (Meropenem 1g/Ns 100ml Ivpb) 100 mls @ 100 mls/ hr IVPB Q8 YOLANDA PRN Reason: Protocol Stop: 06/15/16 13:01 Last Admin: 06/10/16 05:17 Dose: 100 mls/hr Potassium Phosphate 15 mmole/ (Sodium Chloride) 255 mls @ 127.5 mls/hr IVPB Q2H YOLANDA Stop: 06/10/16 14:59 Last Admin: 06/10/16 10:51 Dose: 127.5 mls/hr Norepinephrine Bitartrate 8 mg (/ Sodium Chloride) 258 mls @ 7.74 mls/hr IV .Q24H PRN; Protocol; 4 MCG/MIN PRN Reason: TITRATE PER MD ORDER Last Admin: 06/10/16 11:28 Dose: 7.74 mls/hr Levalbuterol HCl (Xopenex) 0.63 mg IH [id number] YOLANDA - Labs Labs: 06/10/16 06:15 06/10/16 06:15 PT 12.0 Seconds (9.9-11.8) H 06/09/16 06:46 INR 1.11 (0.93-1.08) H 06/09/16 06:46 APTT 31.2 Seconds (23.7-30.8) H 06/09/16 06:46 - Constitutional Appears: Other (Intubated and lightly sedated) - Head Exam Head Exam: NORMAL INSPECTION - ENT Exam Additional comments: ET tube in place - Neck Exam Neck Exam: absent: Meningismus Additional comments: right IJ central venous catheter site clean and intact - Respiratory Exam Respiratory Exam: Decreased Breath Sounds - Cardiovascular Exam Cardiovascular Exam: +S1, +S2 - GI/Abdominal Exam GI & Abdominal Exam: Soft. absent: Tenderness Additional comments: right upper quadrant abdominal drain with serosanguinous fluid Assessment and Plan - Assessment and Plan (Free Text) Plan: Assessment Septic shock with ventilator-dependent respiratory failure and acute renal failure from ESBL-producing multidrug resistant E. coli bacteremia probably from biliary tree infection (ascending cholangitis or acute cholecystitis) S/P abdominal drain placement into the biliary tree POD #3, S/P ERCP POD #1; patient with some clinical improvement Alzheimer's dementia history of hemolytic anemia prostate CA history of depression history of bowel obstruction history of E. coli bacteremia and sepsis probably biliary tree in origin History of Klebsiella UTI Plan Continue Meropenem (day 4); repeat blood cx, urine cx are negative; repeat CXR only shows bibasilar ateactasis will continue to continue to monitor clinically, trend WBC count Overall prognosis is poor Discussed with GI fellow Dr. Cast regarding ERCP
--- NOTE | 2016-06-10 13:17 | CP.CCUPN ---
<Marcos Howard - Last Filed: 06/10/16 13:22> CCU Subjective - Physician Review Subjective (Free Text): Pt s&e w ICU attending. Pt tolerated pressure support ON. Pt extubated to BiPAP this AM. Pt on vasopressin. Pt is off sedation. Pt is arouasble, response to stimuli, follows commands. Pt had ERCP yesterday and tolerated it. 06/10/16 13:17 06/10/16 13:22 CCU Objective - Vital Signs / Intake & Output Vital Signs (Last 4 hours): Vital Signs Temp Pulse Resp BP Pulse Ox 06/10/16 12:00 55 L 06/10/16 11:42 100.3 F H 51 L 23 103/48 L 100 06/10/16 11:06 46 L 06/10/16 10:30 46 L 29 H 103/48 L 100 06/10/16 10:25 55 L 29 H 06/10/16 10:24 54 L 30 H 06/10/16 10:00 53 L 29 H 127/74 92 L 06/10/16 09:49 49 L 32 H 122/67 92 L 06/10/16 09:30 47 L 81/45 L 100 Intake and Output (Last 8hrs): Intake & Output 06/09/16 06/10/16 06/10/16 22:59 06:59 14:59 Intake Total 1043.3 1423 Output Total 420 580 Balance 623.3 843 Weight 178 lb Intake: IV 1043.3 1423 Left Antecubital 90 Right Internal Jugular 1000 Precedex 96 93 Antibiotic 350 200 K-Phos 500 Levophed 97 40 Oral 0 Output: Drainage 20 30 Right Upper Abdomen 20 30 Urine 400 550 Urethral (Tong) 400 550 Other: Voiding Method Indwelling Catheter Indwelling Catheter # Bowel Movements 0 - Physical Exam Head: Positive for: Atraumatic, Normocephalic Pupils: Positive for: PERRL Extroacular Muscles: Positive for: EOMI Conjunctiva: Positive for: Normal Mouth: Positive for: Moist Mucous Membranes Pharnyx: Negative for: ERYTHEMA, EXUDATE, TONSILS ENLARGED Respiratory/Chest: Positive for: Clear to Auscultation, Good Air Exchange. Negative for: Respiratory Distress, Accessory Muscle Use Cardiovascular: Positive for: Regular Rate and Rhythm, Normal S1, S2. Negative for: Murmurs Abdomen: Positive for: Other (Miguelina tube in place: purulent fluids. Minimal output ). Negative for: Tenderness (rigid surgical abdomen), Distention ( Abdomen distended tympanitic and quiet with surgical scar), Normal Bowel Sounds , Rebound, Guarding Back: Positive for: Normal Inspection Upper Extremity: Positive for: Edema, Normal ROM. Negative for: Cyanosis Lower Extremity: Positive for: Normal Inspection. Negative for: Edema Neurological: Positive for: GCS=15, CN II-XII Intact, Speech Normal, Motor Func Grossly Intact Skin: Positive for: Other (generalized tinea infection ) Psychiatric: Negative for: Alert, Oriented x 3, Normal Insight - Medications Active Medications: Active Medications Generic Name Dose Route Start Last Admin Trade Name Freq PRN Reason Stop Dose Admin Acetaminophen 650 mg 06/06/16 15:35 06/07/16 19:27 Tylenol 325mg Tab PO 650 mg Q8 PRN Administration Fever >100.4 F Famotidine 20 mg 06/08/16 10:00 06/10/16 09:49 Pepcid IVP 20 mg DAILY YOLANDA Administration Fentanyl 100 mcg 06/07/16 11:35 06/08/16 10:15 Fentanyl IVP 100 mcg Q1 PRN Administration Pain, severe (8-10) Fentanyl 75 mcg 06/07/16 11:36 Fentanyl IVP Q1 PRN Pain, moderate (4-7) Dexmedetomidine HCl 100 mls @ 3.856 mls/hr 06/06/16 14:50 06/10/16 07:20 Precedex 4 Mcg/Ml (100 Ml) IV 0 mcg/kg/hr .Q24H PRN Titration Agitation Protocol 0.2 MCG/KG/HR Vasopressin 20 units/ Sodium 101 mls @ 9.09 mls/hr 06/06/16 21:30 06/09/16 20: 44 Chloride IV 9.09 mls/hr .[id number] YOLANDA Administration Protocol 0.03 U/MIN Dextrose/Sodium Chloride 1,000 mls @ 100 mls/hr 06/08/16 17:30 06/09/16 04:30 Dextrose 5%/0.9% Ns 1000 Ml IV 100 mls/hr .Q10H YOLANDA Administration MEROPENEM-0.9% SODIUM CHLORIDE 100 mls @ 100 mls/hr 06/09/16 09:24 06/10/16 05: 17 Meropenem 1g/Ns 100ml Ivpb IVPB 06/15/16 13:01 100 mls/hr Q8 YOLANDA Administration Protocol Potassium Phosphate 15 mmole/ 255 mls @ 127.5 mls/hr 06/10/16 11:00 06/10/16 10 :51 Sodium Chloride IVPB 06/10/16 14:59 127.5 mls/hr Q2H YOLANDA Administration Norepinephrine Bitartrate 8 mg 258 mls @ 7.74 mls/hr 06/10/16 10:39 06/10/16 11 :28 / Sodium Chloride IV 7.74 mls/hr .Q24H PRN Administration TITRATE PER MD ORDER Protocol 4 MCG/MIN Levalbuterol HCl 0.63 mg 06/10/16 14:00 Xopenex IH [id number] YOLANDA - Patient Studies Lab Studies: Microbiology Studies 06/09/16 12:00 Urine Culture - Final Urine,Tong No Growth (<1,000 CFU/ML) 06/09/16 08:45 Blood Culture - Preliminary Blood-Venous NO GROWTH AFTER 24 HOURS 06/09/16 08:40 Blood Culture - Preliminary Blood-Venous NO GROWTH AFTER 24 HOURS 06/08/16 08:30 Blood Culture - Preliminary Blood-Venous NO GROWTH AFTER 48 HOURS 06/08/16 08:30 Blood Culture - Preliminary Blood-Venous NO GROWTH AFTER 48 HOURS 06/07/16 13:00 Anaerobic Culture - Final Other: Please Indicate NO ANAEROBES ISOLATED. 06/06/16 17:00 Gram Stain - Final Sputum Sputum Culture - Final Yeast Species Lab Studies 06/10/16 06/10/16 06/09/16 Range/Units 09:10 06:15 18:39 WBC 6.9 D (4.5-11.0) 10^3/ul RBC 3.39 L (3.5-6.1) 10^6/uL Hgb 10.8 L (14.0-18.0) gm/dL Hct 30.5 L (42.0-52.0) % MCV 90.0 (80.0-105.0) fL MCH 31.9 (25.0-35.0) pg MCHC 35.4 (31.0-37.0) g/dl RDW 14.6 H (11.5-14.5) % Plt Count 22 L* (120.0-450.0) 10^3/uL MPV 10.8 (7.0-11.0) fl Gran % 84.5 H (50.0-68.0) % Lymph % (Auto) 6.6 L (22.0-35.0) % [place] % (Auto) 7.9 H (1.0-6.0) % Eos % (Auto) 0.9 L (1.5-5.0) % Baso % (Auto) 0.1 (0.0-3.0) % Gran # 5.79 (1.4-6.5) Lymph # 0.5 L (1.2-3.4) [place] # 0.5 (0.1-0.6) Eos # 0.1 (0.0-0.7) Baso # 0.01 (0.0-2.0) K/mm3 pCO2 30 L (35-45) mm/Hg pO2 114.0 H 39 (80-100) mm/Hg HCO3 22.9 (21-28) mmol/L ABG pH 7.49 H (7.35-7.45) ABG Total CO2 23.8 (22-28) mmol.L ABG O2 Saturation 100.2 H (95-98) % ABG O2 Content 14.5 L (15-23) ML/dl ABG Base Excess 0.1 (-2.0-3.0) mmol/L ABG Hemoglobin 10.5 L (11.7-17.4) g/dL ABG Carboxyhemoglobin 2.8 H (0.5-1.5) % POC ABG HHb (Measured) -0.2 L (0-5) % ABG Methemoglobin 0.9 (0.0-3.0) % ABG O2 Capacity 14.5 L (16-24) mL/dl ABG Potassium (3.6-5.2) mmol/L VBG pH 7.40 (7.32-7.43) VBG pCO2 39.0 L (40-60) VBG HCO3 24.2 (21-28) mmol/l VBG Total CO2 25.4 (22-28) mmol.L VBG O2 Sat (Calc) 76.9 H (40-65) % VBG Base Excess -0.5 L (0.0-2.0) mmol/L VBG Potassium 3.5 L (3.6-5.2) mmol/L Hgb O2 Saturation 96.6 (95.0-98.0) % Glucose 139 H (75-110) mg/dl Lactate 1.9 (0.7-2.1) mmol/L FiO2 40.0 21.0 % Sodium 146 145.0 (132-148) mmol/L Potassium 3.2 L (3.6-5.0) mmol/L Chloride 114 H 117.0 H (98-107) mmol/L Carbon Dioxide 24 (21-33) mmol/L Anion Gap 11 (10-20) BUN 24 H (7-21) mg/dL Creatinine 0.7 (0.5-1.4) mg/dL Est GFR ( Amer) > 60 Est GFR (Non-Af Amer) > 60 Random Glucose 146 H (70-110) mg/dL Calcium 7.3 L (8.4-10.5) mg/dL Phosphorus 1.4 L* (2.5-4.5) mg/dL Magnesium 1.9 (1.7-2.2) mg/dL Total Bilirubin 15.0 H (0.2-1.3) mg/dL GGT (8-78) U/L AST 63 H (15-59) U/L ALT 112 H (7-56) U/L Alkaline Phosphatase 173 H (38-133) U/L Total Protein 4.6 L (5.8-8.3) g/dL Albumin 2.2 L (3.0-4.8) g/dL Globulin 2.4 gm/dL Albumin/Globulin Ratio 0.9 L (1.1-1.8) Procalcitonin (0.19-0.49) NG/ML Arterial Blood Potassium (3.6-5.2) mmol/L Venous Blood Potassium 3.5 L (3.6-5.2) mmol/L Urine Color (YELLOW) Urine Appearance (CLEAR) Urine pH (4.7-8.0) Ur Specific [place] (1.005-1.035) Urine Protein (<30 mg/dL) mg/dL Urine Glucose (UA) (NEGATIVE) mg/dL Urine Ketones (NEGATIVE) mg/dL Urine Blood (NEGATIVE) Urine Nitrate (NEGATIVE) Urine Bilirubin (NEGATIVE) Urine Urobilinogen (<1 E.U./dL) E.U./dL Ur Leukocyte Esterase (NEGATIVE) Lizzeth/uL Urine RBC (0-2) /hpf Urine WBC (0-6) /hpf 06/09/16 06/09/16 06/09/16 Range/Units 14:18 13:53 12:00 WBC (4.5-11.0) 10^3/ul RBC (3.5-6.1) 10^6/uL Hgb (14.0-18.0) gm/dL Hct (42.0-52.0) % MCV (80.0-105.0) fL MCH (25.0-35.0) pg MCHC (31.0-37.0) g/dl RDW (11.5-14.5) % Plt Count (120.0-450.0) 10^3/uL MPV (7.0-11.0) fl Gran % (50.0-68.0) % Lymph % (Auto) (22.0-35.0) % [place] % (Auto) (1.0-6.0) % Eos % (Auto) (1.5-5.0) % Baso % (Auto) (0.0-3.0) % Gran # (1.4-6.5) Lymph # (1.2-3.4) [place] # (0.1-0.6) Eos # (0.0-0.7) Baso # (0.0-2.0) K/mm3 pCO2 44 (35-45) mm/Hg pO2 75.0 L (80-100) mm/Hg HCO3 23.7 (21-28) mmol/L ABG pH 7.34 L (7.35-7.45) ABG Total CO2 25.1 (22-28) mmol.L ABG O2 Saturation 96.7 (95-98) % ABG O2 Content (15-23) ML/dl ABG Base Excess -2.2 L (-2.0-3.0) mmol/L ABG Hemoglobin (11.7-17.4) g/dL ABG Carboxyhemoglobin (0.5-1.5) % POC ABG HHb (Measured) (0-5) % ABG Methemoglobin (0.0-3.0) % ABG O2 Capacity (16-24) mL/dl ABG Potassium 3.5 L (3.6-5.2) mmol/L VBG pH (7.32-7.43) VBG pCO2 (40-60) VBG HCO3 (21-28) mmol/l VBG Total CO2 (22-28) mmol.L VBG O2 Sat (Calc) (40-65) % VBG Base Excess (0.0-2.0) mmol/L VBG Potassium (3.6-5.2) mmol/L Hgb O2 Saturation (95.0-98.0) % Glucose 129 H (75-110) mg/dl Lactate 2.1 (0.7-2.1) mmol/L FiO2 21.0 % Sodium 146.0 145 (132-148) mmol/L Potassium 3.5 L (3.6-5.0) mmol/L Chloride 117.0 H 112 H (98-107) mmol/L Carbon Dioxide 23 (21-33) mmol/L Anion Gap 14 (10-20) BUN 23 H (7-21) mg/dL Creatinine 0.7 (0.5-1.4) mg/dL Est GFR ( Amer) > 60 Est GFR (Non-Af Amer) > 60 Random Glucose 123 H (70-110) mg/dL Calcium 7.3 L (8.4-10.5) mg/dL Phosphorus (2.5-4.5) mg/dL Magnesium (1.7-2.2) mg/dL Total Bilirubin 14.6 H (0.2-1.3) mg/dL GGT (8-78) U/L AST 55 (15-59) U/L ALT 125 H (7-56) U/L Alkaline Phosphatase 147 H (38-133) U/L Total Protein 4.6 L (5.8-8.3) g/dL Albumin 2.2 L (3.0-4.8) g/dL Globulin 2.3 gm/dL Albumin/Globulin Ratio 1.0 L (1.1-1.8) Procalcitonin (0.19-0.49) NG/ML Arterial Blood Potassium 3.5 L (3.6-5.2) mmol/L Venous Blood Potassium (3.6-5.2) mmol/L Urine Color Yellow (YELLOW) Urine Appearance Clear (CLEAR) Urine pH 6.0 (4.7-8.0) Ur Specific [place] 1.020 (1.005-1.035) Urine Protein 30 H (<30 mg/dL) mg/dL Urine Glucose (UA) 100 H (NEGATIVE) mg/dL Urine Ketones Trace H (NEGATIVE) mg/dL Urine Blood Trace-intact H (NEGATIVE) Urine Nitrate Negative (NEGATIVE) Urine Bilirubin Large H (NEGATIVE) Urine Urobilinogen 2.0 H (<1 E.U./dL) E.U./dL Ur Leukocyte Esterase Negative (NEGATIVE) Lizzeth/uL Urine RBC 1 - 3 (0-2) /hpf Urine WBC Negative (0-6) /hpf 06/09/16 06/09/16 Range/Units 08:40 06:30 WBC (4.5-11.0) 10^3/ul RBC (3.5-6.1) 10^6/uL Hgb (14.0-18.0) gm/dL Hct (42.0-52.0) % MCV (80.0-105.0) fL MCH (25.0-35.0) pg MCHC (31.0-37.0) g/dl RDW (11.5-14.5) % Plt Count (120.0-450.0) 10^3/uL MPV (7.0-11.0) fl Gran % (50.0-68.0) % Lymph % (Auto) (22.0-35.0) % [place] % (Auto) (1.0-6.0) % Eos % (Auto) (1.5-5.0) % Baso % (Auto) (0.0-3.0) % Gran # (1.4-6.5) Lymph # (1.2-3.4) [place] # (0.1-0.6) Eos # (0.0-0.7) Baso # (0.0-2.0) K/mm3 pCO2 (35-45) mm/Hg pO2 (80-100) mm/Hg HCO3 (21-28) mmol/L ABG pH (7.35-7.45) ABG Total CO2 (22-28) mmol.L ABG O2 Saturation (95-98) % ABG O2 Content (15-23) ML/dl ABG Base Excess (-2.0-3.0) mmol/L ABG Hemoglobin (11.7-17.4) g/dL ABG Carboxyhemoglobin (0.5-1.5) % POC ABG HHb (Measured) (0-5) % ABG Methemoglobin (0.0-3.0) % ABG O2 Capacity (16-24) mL/dl ABG Potassium (3.6-5.2) mmol/L VBG pH (7.32-7.43) VBG pCO2 (40-60) VBG HCO3 (21-28) mmol/l VBG Total CO2 (22-28) mmol.L VBG O2 Sat (Calc) (40-65) % VBG Base Excess (0.0-2.0) mmol/L VBG Potassium (3.6-5.2) mmol/L Hgb O2 Saturation (95.0-98.0) % Glucose (75-110) mg/dl Lactate (0.7-2.1) mmol/L FiO2 % Sodium (132-148) mmol/L Potassium (3.6-5.0) mmol/L Chloride (98-107) mmol/L Carbon Dioxide (21-33) mmol/L Anion Gap (10-20) BUN (7-21) mg/dL Creatinine (0.5-1.4) mg/dL Est GFR ( Amer) Est GFR (Non-Af Amer) Random Glucose (70-110) mg/dL Calcium (8.4-10.5) mg/dL Phosphorus (2.5-4.5) mg/dL Magnesium (1.7-2.2) mg/dL Total Bilirubin (0.2-1.3) mg/dL GGT 175 H (8-78) U/L AST (15-59) U/L ALT (7-56) U/L Alkaline Phosphatase (38-133) U/L Total Protein (5.8-8.3) g/dL Albumin (3.0-4.8) g/dL Globulin gm/dL Albumin/Globulin Ratio (1.1-1.8) Procalcitonin 83.34 H (0.19-0.49) NG/ML Arterial Blood Potassium (3.6-5.2) mmol/L Venous Blood Potassium (3.6-5.2) mmol/L Urine Color (YELLOW) Urine Appearance (CLEAR) Urine pH (4.7-8.0) Ur Specific [place] (1.005-1.035) Urine Protein (<30 mg/dL) mg/dL Urine Glucose (UA) (NEGATIVE) mg/dL Urine Ketones (NEGATIVE) mg/dL Urine Blood (NEGATIVE) Urine Nitrate (NEGATIVE) Urine Bilirubin (NEGATIVE) Urine Urobilinogen (<1 E.U./dL) E.U./dL Ur Leukocyte Esterase (NEGATIVE) Lizzeth/uL Urine RBC (0-2) /hpf Urine WBC (0-6) /hpf Laboratory Results - last 24 hr 06/09/16 06/09/16 06/09/16 06:30 08:40 12:00 WBC RBC Hgb Hct MCV MCH MCHC RDW Plt Count MPV Gran % Lymph % (Auto) [place] % (Auto) Eos % (Auto) Baso % (Auto) Gran # Lymph # [place] # Eos # Baso # pCO2 pO2 HCO3 ABG pH ABG Total CO2 ABG O2 Saturation ABG O2 Content ABG Base Excess ABG Hemoglobin ABG Carboxyhemoglobin POC ABG HHb (Measured) ABG Methemoglobin ABG O2 Capacity ABG Potassium VBG pH VBG pCO2 VBG HCO3 VBG Total CO2 VBG O2 Sat (Calc) VBG Base Excess VBG Potassium Hgb O2 Saturation Glucose Lactate FiO2 Sodium Potassium Chloride Carbon Dioxide Anion Gap BUN Creatinine Est GFR ( Amer) Est GFR (Non-Af Amer) Random Glucose Calcium Phosphorus Magnesium Total Bilirubin GGT 175 H AST ALT Alkaline Phosphatase Total Protein Albumin Globulin Albumin/Globulin Ratio Procalcitonin 83.34 H Arterial Blood Potassium Venous Blood Potassium Urine Color Yellow Urine Appearance Clear Urine pH 6.0 Ur Specific [place] 1.020 Urine Protein 30 H Urine Glucose (UA) 100 H Urine Ketones Trace H Urine Blood Trace-intact H Urine Nitrate Negative Urine Bilirubin Large H Urine Urobilinogen 2.0 H Ur Leukocyte Esterase Negative Urine RBC 1 - 3 Urine WBC Negative 06/09/16 06/09/16 06/09/16 13:53 14:18 18:39 WBC RBC Hgb Hct MCV MCH MCHC RDW Plt Count MPV Gran % Lymph % (Auto) [place] % (Auto) Eos % (Auto) Baso % (Auto) Gran # Lymph # [place] # Eos # Baso # pCO2 44 pO2 75.0 L 39 HCO3 23.7 ABG pH 7.34 L ABG Total CO2 25.1 ABG O2 Saturation 96.7 ABG O2 Content ABG Base Excess -2.2 L ABG Hemoglobin ABG Carboxyhemoglobin POC ABG HHb (Measured) ABG Methemoglobin ABG O2 Capacity ABG Potassium 3.5 L VBG pH 7.40 VBG pCO2 39.0 L VBG HCO3 24.2 VBG Total CO2 25.4 VBG O2 Sat (Calc) 76.9 H VBG Base Excess -0.5 L VBG Potassium 3.5 L Hgb O2 Saturation Glucose 129 H 139 H Lactate 2.1 1.9 FiO2 21.0 21.0 Sodium 145 146.0 145.0 Potassium 3.5 L Chloride 112 H 117.0 H 117.0 H Carbon Dioxide 23 Anion Gap 14 BUN 23 H Creatinine 0.7 Est GFR ( Amer) > 60 Est GFR (Non-Af Amer) > 60 Random Glucose 123 H Calcium 7.3 L Phosphorus Magnesium Total Bilirubin 14.6 H GGT AST 55 ALT 125 H Alkaline Phosphatase 147 H Total Protein 4.6 L Albumin 2.2 L Globulin 2.3 Albumin/Globulin Ratio 1.0 L Procalcitonin Arterial Blood Potassium 3.5 L Venous Blood Potassium 3.5 L Urine Color Urine Appearance Urine pH Ur Specific [place] Urine Protein Urine Glucose (UA) Urine Ketones Urine Blood Urine Nitrate Urine Bilirubin Urine Urobilinogen Ur Leukocyte Esterase Urine RBC Urine WBC 06/10/16 06/10/16 06:15 09:10 WBC 6.9 D RBC 3.39 L Hgb 10.8 L Hct 30.5 L MCV 90.0 MCH 31.9 MCHC 35.4 RDW 14.6 H Plt Count 22 L* MPV 10.8 Gran % 84.5 H Lymph % (Auto) 6.6 L [place] % (Auto) 7.9 H Eos % (Auto) 0.9 L Baso % (Auto) 0.1 Gran # 5.79 Lymph # 0.5 L [place] # 0.5 Eos # 0.1 Baso # 0.01 pCO2 30 L pO2 114.0 H HCO3 22.9 ABG pH 7.49 H ABG Total CO2 23.8 ABG O2 Saturation 100.2 H ABG O2 Content 14.5 L ABG Base Excess 0.1 ABG Hemoglobin 10.5 L ABG Carboxyhemoglobin 2.8 H POC ABG HHb (Measured) -0.2 L ABG Methemoglobin 0.9 ABG O2 Capacity 14.5 L ABG Potassium VBG pH VBG pCO2 VBG HCO3 VBG Total CO2 VBG O2 Sat (Calc) VBG Base Excess VBG Potassium Hgb O2 Saturation 96.6 Glucose Lactate FiO2 40.0 Sodium 146 Potassium 3.2 L Chloride 114 H Carbon Dioxide 24 Anion Gap 11 BUN 24 H Creatinine 0.7 Est GFR ( Amer) > 60 Est GFR (Non-Af Amer) > 60 Random Glucose 146 H Calcium 7.3 L Phosphorus 1.4 L* Magnesium 1.9 Total Bilirubin 15.0 H GGT AST 63 H ALT 112 H Alkaline Phosphatase 173 H Total Protein 4.6 L Albumin 2.2 L Globulin 2.4 Albumin/Globulin Ratio 0.9 L Procalcitonin Arterial Blood Potassium Venous Blood Potassium Urine Color Urine Appearance Urine pH Ur Specific [place] Urine Protein Urine Glucose (UA) Urine Ketones Urine Blood Urine Nitrate Urine Bilirubin Urine Urobilinogen Ur Leukocyte Esterase Urine RBC Urine WBC Review of Systems - Constitutional Constitutional: absent: Fever, Chills - EENT Eyes: absent: Blurred Vision - Respiratory Respiratory: absent: Cough, Dyspnea - Gastrointestinal Gastrointestinal: absent: Abdominal Pain Critical Care Progress Note - Ventilator Checklist Head of Bed 30 Degrees: Yes Daily Sedation Vacation: No PUD Prophalyxis: Yes DVT Prophylaxis: Yes - Nutrition Nutrition: Nutrition Category Date Time Status NPO Diet [DIET] Diets 06/06/17 Dinner Ordered Assessment/Plan - Assessment and Plan (Free Text) Assessment: 75 yo M w h/o SBO, MDS, gastritis, Alzheimer's dementia Septic shcok 2/2 bacteremia and cholangitis POD 3 s/p cholecystostomy tube POD1 s/p ERCP w stent Plan: Neuro: Mental status at baseline, h/o Alzheimer's dementia Maintain normothermia Tylenol PRN CV: Continue vasopressors, titrate to maintain MAP>65 D5 1/2 NS @100 Pulm: Respiratory Failure: extubated to BiPAP Maintain SpO2>90, PaO2>60 HOB>35 degrees Aspiration precautions Albuterol GI: POD #3 s/p percutaneous cholecystostomy tube by IR. Output was bloody and purulent. Patient will keep tube for 4-6 weeks with BID flushes unless the gallbladder gets surgically removed earlier, as per IR recs POD 1 s/p ERCP stent remove stent in [address] A/P without contrast shows distended gallbladder with evidence of gallbladder wall thickening/mild pericholecystic fluid, no calcified gallstones , constipation, scattered prominent retroperitoneal and mesenteric LNs, mild mesenteric inflammatory stranding. Continue Meropenem HIDA: GB and SB unvisualized in 4 hrs Pepcid Surgery following: No immediate surgical intervention at this time. GI following Trend T-bili: trending up 15 today Endo: Maintain euglycemia 140-180 Renal: Cr: 0.7. Urine output 1.L/24hrs Continue to monitor renal function, I&Os Maintain euvolemia ID: Septic shock 2/2 acute cholecystitis : Improving No leukocytosis: 7K Afebrile Blood cultures significant for GNR in 2 of 2 bottles Continue Meropenem ID following Preliminary urine culture shows no growth Tylenol for fever PRN Heme: Hb stable. No signs of bleeding. Continue to monitor. DVT/GI ppx: Pepcid, SCD DW ICU attending <Bryce Bautista - Last Filed: 06/10/16 17:10> CCU Objective - Vital Signs / Intake & Output Vital Signs (Last 4 hours): Vital Signs Temp Pulse Resp BP Pulse Ox 06/10/16 16:10 51 L 06/10/16 16:02 52 L 06/10/16 16:00 99.6 F 52 L 21 108/63 97 06/10/16 14:15 48 L 26 H 107/60 83 L 06/10/16 14:00 51 L 28 H 87 L 06/10/16 13:38 52 L 90 L 06/10/16 13:37 50 L 25 H 112/63 88 L 06/10/16 13:30 55 L 06/10/16 13:19 50 L 29 H Intake and Output (Last 8hrs): Intake & Output 06/10/16 06/10/16 06/10/16 06:59 14:59 22:59 Intake Total 1423 1945 Output Total 580 30 Balance 843 1915 Weight 178 lb Intake: IV 1423 1945 Left Antecubital 90 Right Internal Jugular 1000 IVF 900 Precedex 93 7 Antibiotic 200 100 K-Phos 500 Levophed 40 39 K-rider 200 Magnesium rider 100 Vasopressin 99 Oral 0 Output: Drainage 30 30 Right Upper Abdomen 30 30 Urine 550 Urethral (Tong) 550 Other: Voiding Method Indwelling Catheter # Bowel Movements 0 - Medications Active Medications: Active Medications Generic Name Dose Route Start Last Admin Trade Name Freq PRN Reason Stop Dose Admin Acetaminophen 650 mg 06/06/16 15:35 06/07/16 19:27 Tylenol 325mg Tab PO 650 mg Q8 PRN Administration Fever >100.4 F Famotidine 20 mg 06/08/16 10:00 06/10/16 09:49 Pepcid IVP 20 mg DAILY YOLANDA Administration Fentanyl 100 mcg 06/07/16 11:35 06/08/16 10:15 Fentanyl IVP 100 mcg Q1 PRN Administration Pain, severe (8-10) Fentanyl 75 mcg 06/07/16 11:36 Fentanyl IVP Q1 PRN Pain, moderate (4-7) Dexmedetomidine HCl 100 mls @ 3.856 mls/hr 06/06/16 14:50 06/10/16 07:20 Precedex 4 Mcg/Ml (100 Ml) IV 0 mcg/kg/hr .Q24H PRN Titration Agitation Protocol 0.2 MCG/KG/HR Vasopressin 20 units/ Sodium 101 mls @ 9.09 mls/hr 06/06/16 21:30 06/10/16 13: 30 Chloride IV 9.09 mls/hr .[id number] YOLANDA Administration Protocol 0.03 U/MIN Dextrose/Sodium Chloride 1,000 mls @ 100 mls/hr 06/08/16 17:30 06/09/16 04:30 Dextrose 5%/0.9% Ns 1000 Ml IV 100 mls/hr .Q10H YOLANDA Administration MEROPENEM-0.9% SODIUM CHLORIDE 100 mls @ 100 mls/hr 06/09/16 09:24 06/10/16 13: 40 Meropenem 1g/Ns 100ml Ivpb IVPB 06/15/16 13:01 100 mls/hr Q8 YOLANDA Administration Protocol Norepinephrine Bitartrate 8 mg 258 mls @ 7.74 mls/hr 06/10/16 10:39 06/10/16 13 :30 / Sodium Chloride IV 2 mcg/min .Q24H PRN Titration TITRATE PER MD ORDER Protocol 4 MCG/MIN Levalbuterol HCl 0.63 mg 06/10/16 14:00 06/10/16 13:22 Xopenex IH 0.63 mg [id number] YOLANDA Administration - Patient Studies Lab Studies: Microbiology Studies 06/09/16 12:00 Urine Culture - Final Urine,Tong No Growth (<1,000 CFU/ML) 06/09/16 08:45 Blood Culture - Preliminary Blood-Venous NO GROWTH AFTER 24 HOURS 06/09/16 08:40 Blood Culture - Preliminary Blood-Venous NO GROWTH AFTER 24 HOURS 06/08/16 08:30 Blood Culture - Preliminary Blood-Venous NO GROWTH AFTER 48 HOURS 06/08/16 08:30 Blood Culture - Preliminary Blood-Venous NO GROWTH AFTER 48 HOURS Lab Studies 06/10/16 06/10/16 06/09/16 Range/Units 09:10 06:15 18:39 WBC 6.9 D (4.5-11.0) 10^3/ul RBC 3.39 L (3.5-6.1) 10^6/uL Hgb 10.8 L (14.0-18.0) gm/dL Hct 30.5 L (42.0-52.0) % MCV 90.0 (80.0-105.0) fL MCH 31.9 (25.0-35.0) pg MCHC 35.4 (31.0-37.0) g/dl RDW 14.6 H (11.5-14.5) % Plt Count 22 L* (120.0-450.0) 10^3/uL MPV 10.8 (7.0-11.0) fl Gran % 84.5 H (50.0-68.0) % Lymph % (Auto) 6.6 L (22.0-35.0) % [place] % (Auto) 7.9 H (1.0-6.0) % Eos % (Auto) 0.9 L (1.5-5.0) % Baso % (Auto) 0.1 (0.0-3.0) % Gran # 5.79 (1.4-6.5) Lymph # 0.5 L (1.2-3.4) [place] # 0.5 (0.1-0.6) Eos # 0.1 (0.0-0.7) Baso # 0.01 (0.0-2.0) K/mm3 pCO2 30 L (35-45) mm/Hg pO2 114.0 H 39 (80-100) mm/Hg HCO3 22.9 (21-28) mmol/L ABG pH 7.49 H (7.35-7.45) ABG Total CO2 23.8 (22-28) mmol.L ABG O2 Saturation 100.2 H (95-98) % ABG O2 Content 14.5 L (15-23) ML/dl ABG Base Excess 0.1 (-2.0-3.0) mmol/L ABG Hemoglobin 10.5 L (11.7-17.4) g/dL ABG Carboxyhemoglobin 2.8 H (0.5-1.5) % POC ABG HHb (Measured) -0.2 L (0-5) % ABG Methemoglobin 0.9 (0.0-3.0) % ABG O2 Capacity 14.5 L (16-24) mL/dl VBG pH 7.40 (7.32-7.43) VBG pCO2 39.0 L (40-60) VBG HCO3 24.2 (21-28) mmol/l VBG Total CO2 25.4 (22-28) mmol.L VBG O2 Sat (Calc) 76.9 H (40-65) % VBG Base Excess -0.5 L (0.0-2.0) mmol/L VBG Potassium 3.5 L (3.6-5.2) mmol/L Hgb O2 Saturation 96.6 (95.0-98.0) % Glucose 139 H (75-110) mg/dl Lactate 1.9 (0.7-2.1) mmol/L FiO2 40.0 21.0 % Sodium 146 145.0 (132-148) mmol/L Potassium 3.2 L (3.6-5.0) mmol/L Chloride 114 H 117.0 H (98-107) mmol/L Carbon Dioxide 24 (21-33) mmol/L Anion Gap 11 (10-20) BUN 24 H (7-21) mg/dL Creatinine 0.7 (0.5-1.4) mg/dL Est GFR ( Amer) > 60 Est GFR (Non-Af Amer) > 60 Random Glucose 146 H (70-110) mg/dL Calcium 7.3 L (8.4-10.5) mg/dL Phosphorus 1.4 L* (2.5-4.5) mg/dL Magnesium 1.9 (1.7-2.2) mg/dL Total Bilirubin 15.0 H (0.2-1.3) mg/dL AST 63 H (15-59) U/L ALT 112 H (7-56) U/L Alkaline Phosphatase 173 H (38-133) U/L Total Protein 4.6 L (5.8-8.3) g/dL Albumin 2.2 L (3.0-4.8) g/dL Globulin 2.4 gm/dL Albumin/Globulin Ratio 0.9 L (1.1-1.8) Procalcitonin (0.19-0.49) NG/ML Venous Blood Potassium 3.5 L (3.6-5.2) mmol/L 06/09/16 Range/Units 08:40 WBC (4.5-11.0) 10^3/ul RBC (3.5-6.1) 10^6/uL Hgb (14.0-18.0) gm/dL Hct (42.0-52.0) % MCV (80.0-105.0) fL MCH (25.0-35.0) pg MCHC (31.0-37.0) g/dl RDW (11.5-14.5) % Plt Count (120.0-450.0) 10^3/uL MPV (7.0-11.0) fl Gran % (50.0-68.0) % Lymph % (Auto) (22.0-35.0) % [place] % (Auto) (1.0-6.0) % Eos % (Auto) (1.5-5.0) % Baso % (Auto) (0.0-3.0) % Gran # (1.4-6.5) Lymph # (1.2-3.4) [place] # (0.1-0.6) Eos # (0.0-0.7) Baso # (0.0-2.0) K/mm3 pCO2 (35-45) mm/Hg pO2 (80-100) mm/Hg HCO3 (21-28) mmol/L ABG pH (7.35-7.45) ABG Total CO2 (22-28) mmol.L ABG O2 Saturation (95-98) % ABG O2 Content (15-23) ML/dl ABG Base Excess (-2.0-3.0) mmol/L ABG Hemoglobin (11.7-17.4) g/dL ABG Carboxyhemoglobin (0.5-1.5) % POC ABG HHb (Measured) (0-5) % ABG Methemoglobin (0.0-3.0) % ABG O2 Capacity (16-24) mL/dl VBG pH (7.32-7.43) VBG pCO2 (40-60) VBG HCO3 (21-28) mmol/l VBG Total CO2 (22-28) mmol.L VBG O2 Sat (Calc) (40-65) % VBG Base Excess (0.0-2.0) mmol/L VBG Potassium (3.6-5.2) mmol/L Hgb O2 Saturation (95.0-98.0) % Glucose (75-110) mg/dl Lactate (0.7-2.1) mmol/L FiO2 % Sodium (132-148) mmol/L Potassium (3.6-5.0) mmol/L Chloride (98-107) mmol/L Carbon Dioxide (21-33) mmol/L Anion Gap (10-20) BUN (7-21) mg/dL Creatinine (0.5-1.4) mg/dL Est GFR ( Amer) Est GFR (Non-Af Amer) Random Glucose (70-110) mg/dL Calcium (8.4-10.5) mg/dL Phosphorus (2.5-4.5) mg/dL Magnesium (1.7-2.2) mg/dL Total Bilirubin (0.2-1.3) mg/dL AST (15-59) U/L ALT (7-56) U/L Alkaline Phosphatase (38-133) U/L Total Protein (5.8-8.3) g/dL Albumin (3.0-4.8) g/dL Globulin gm/dL Albumin/Globulin Ratio (1.1-1.8) Procalcitonin 83.34 H (0.19-0.49) NG/ML Venous Blood Potassium (3.6-5.2) mmol/L Laboratory Results - last 24 hr 06/09/16 06/09/16 06/10/16 08:40 18:39 06:15 WBC 6.9 D RBC 3.39 L Hgb 10.8 L Hct 30.5 L MCV 90.0 MCH 31.9 MCHC 35.4 RDW 14.6 H Plt Count 22 L* MPV 10.8 Gran % 84.5 H Lymph % (Auto) 6.6 L [place] % (Auto) 7.9 H Eos % (Auto) 0.9 L Baso % (Auto) 0.1 Gran # 5.79 Lymph # 0.5 L [place] # 0.5 Eos # 0.1 Baso # 0.01 pCO2 pO2 39 HCO3 ABG pH ABG Total CO2 ABG O2 Saturation ABG O2 Content ABG Base Excess ABG Hemoglobin ABG Carboxyhemoglobin POC ABG HHb (Measured) ABG Methemoglobin ABG O2 Capacity VBG pH 7.40 VBG pCO2 39.0 L VBG HCO3 24.2 VBG Total CO2 25.4 VBG O2 Sat (Calc) 76.9 H VBG Base Excess -0.5 L VBG Potassium 3.5 L Hgb O2 Saturation Sodium 145.0 146 Chloride 117.0 H 114 H Glucose 139 H Lactate 1.9 FiO2 21.0 Potassium 3.2 L Carbon Dioxide 24 Anion Gap 11 BUN 24 H Creatinine 0.7 Est GFR ( Amer) > 60 Est GFR (Non-Af Amer) > 60 Random Glucose 146 H Calcium 7.3 L Phosphorus 1.4 L* Magnesium 1.9 Total Bilirubin 15.0 H AST 63 H ALT 112 H Alkaline Phosphatase 173 H Total Protein 4.6 L Albumin 2.2 L Globulin 2.4 Albumin/Globulin Ratio 0.9 L Procalcitonin 83.34 H Venous Blood Potassium 3.5 L 06/10/16 09:10 WBC RBC Hgb Hct MCV MCH MCHC RDW Plt Count MPV Gran % Lymph % (Auto) [place] % (Auto) Eos % (Auto) Baso % (Auto) Gran # Lymph # [place] # Eos # Baso # pCO2 30 L pO2 114.0 H HCO3 22.9 ABG pH 7.49 H ABG Total CO2 23.8 ABG O2 Saturation 100.2 H ABG O2 Content 14.5 L ABG Base Excess 0.1 ABG Hemoglobin 10.5 L ABG Carboxyhemoglobin 2.8 H POC ABG HHb (Measured) -0.2 L ABG Methemoglobin 0.9 ABG O2 Capacity 14.5 L VBG pH VBG pCO2 VBG HCO3 VBG Total CO2 VBG O2 Sat (Calc) VBG Base Excess VBG Potassium Hgb O2 Saturation 96.6 Sodium Chloride Glucose Lactate FiO2 40.0 Potassium Carbon Dioxide Anion Gap BUN Creatinine Est GFR ( Amer) Est GFR (Non-Af Amer) Random Glucose Calcium Phosphorus Magnesium Total Bilirubin AST ALT Alkaline Phosphatase Total Protein Albumin Globulin Albumin/Globulin Ratio Procalcitonin Venous Blood Potassium Critical Care Progress Note - Nutrition Nutrition: Nutrition Category Date Time Status NPO Diet [DIET] Diets 06/06/16 Dinner Ordered Addendum Addendum: 06/10/16 17:09 Patient was seen and examined with Dr. Marcos Howard. Please see Dr. Bautista note
[2016-06-10] MEDS: Levalbuterol 0.63 MG/3 ML Inhal Soln UD IH SCH ×2 (13:22→19:59)
[2016-06-10] MEDS: Dextrose 5%/0.9% NS 1,000 ML IV SCH (20:26)
[2016-06-11] MEDS: Levalbuterol 0.63 MG/3 ML Inhal Soln UD IH SCH (01:21)
[2016-06-11 02:38] LABS: ARTERIAL BLOOD GAS O2 CAPACITY 14.5 mL/dl (16-24); ARTERIAL BLOOD GAS O2 CONTENT 11.7 ML/dl (15-23); ARTERIAL BLOOD GAS PH 7.42 (7.35-7.45); ARTERIAL BLOOD HGB O2 SAT 77.5 % (95.0-98.0); CARBOXYHEMOGLOBIN 2.9 % (0.5-1.5); HHB 18.5 % (0-5); METHEMOGLOBIN 1.1 % (0.0-3.0)
[2016-06-11 03:01] LABS: ARTERIAL BLOOD GAS HCO3 22.9 mmol/L (21-28); ARTERIAL BLOOD GAS O2 CAPACITY 13.9 mL/dl (16-24); ARTERIAL BLOOD GAS O2 CONTENT 11.7 ML/dl (15-23); ARTERIAL BLOOD GAS PH 7.45 (7.35-7.45); ARTERIAL BLOOD HGB O2 SAT 81.3 % (95.0-98.0); CARBOXYHEMOGLOBIN 2.6 % (0.5-1.5); HHB 15.3 % (0-5); METHEMOGLOBIN 0.8 % (0.0-3.0)
[2016-06-11] MEDS: Albuterol-Ipratrop 3 mg / 0.5 (3 ml) UD IH STA ×2 (03:20→05:03)
[2016-06-11] MEDS: Acetylcysteine 20% Inhal Soln (4ml) IH STA ×3 (03:40→05:01)
[2016-06-11] MEDS ORDERED: Acetylcysteine 20% Inhal Soln (4ml) IH STA (04:57)
[2016-06-11] MEDS ORDERED: Albuterol-Ipratrop 3 mg / 0.5 (3 ml) UD IH STA (04:57)
[2016-06-11] MEDS ORDERED: Sodium Chloride 0.9% 1,000 ML IV SCH (05:45)
[2016-06-11 06:14] LABS: BASO # 0.01 K/mm3 (0.0-2.0); BASO % 0.1 % (0.0-3.0); EOS % 0.3 % (1.5-5.0); GRAN # 6.34 (1.4-6.5); GRAN % 86.5 % (50.0-68.0); HEMATOCRIT 30.3 % (42.0-52.0); LYMPH # 0.4 (1.2-3.4); LYMPH % 4.9 % (22.0-35.0); MEAN CELL VOLUME 89.9 fL (80.0-105.0); MEAN CORPUSCULAR HGB CONC 35.6 g/dl (31.0-37.0); MEAN PLATELET VOLUME 12.4 fl (7.0-11.0); MONO # 0.6 (0.1-0.6); MONO % 8.2 % (1.0-6.0); RED CELL DISTRIBUTION WIDTH 14.7 % (11.5-14.5); WHITE BLOOD COUNT 7.3 10^3/ul (4.5-11.0)
[2016-06-11] MEDS: Meropenem 1g/NS 100mL IVPB 100 ML IVPB SCH ×3 (06:32→22:09)
[2016-06-11 06:37] LABS: ALKALINE PHOSPHATASE 171 U/L (38-133); ALT/SGPT 97 U/L (7-56); AST/SGOT 70 U/L (15-59); BLOOD UREA NITROGEN 24 mg/dL (7-21); CALCIUM 7.5 mg/dL (8.4-10.5); CARBON DIOXIDE 25 mmol/L (21-33); CHLORIDE 115 mmol/L (98-107); GFR AFRICAN-AMERICAN > 60; GLUCOSE,RANDOM 165 mg/dL (70-110); MAGNESIUM 2.2 mg/dL (1.7-2.2); POTASSIUM 3.1 mmol/L (3.6-5.0); SODIUM 148 mmol/L (132-148); TOTAL PROTEIN 4.8 g/dL (5.8-8.3)
[2016-06-11] MEDS ORDERED: Albuterol-Ipratrop 3 mg / 0.5 (3 ml) UD IH PRN (07:01)
[2016-06-11 07:10] LABS: ADD MANUAL DIFF? NO; PLATELET COUNT 42 10^3/uL (120.0-450.0)
[2016-06-11] MEDS: Albuterol-Ipratrop 3 mg / 0.5 (3 ml) UD IH SCH ×3 (07:10→20:16)
[2016-06-11] MEDS ORDERED: Acetylcysteine 20% Inhal Soln (4ml) IH SCH (08:00)
[2016-06-11] MEDS: Potassium Chloride 20 mEq 100 ML IVPB SCH ×6 (08:02→18:56)
--- NOTE | 2016-06-11 08:05 | CT ---
PROCEDURE: CT abdomen HISTORY: BIOPSY COMPARISON: 06/06/2016.. TECHNIQUE: Standard protocol for this study/examination. FINDINGS: Confirmation of percutaneous cholecystotomy catheter. Catheter appears in satisfactory position within the gallbladder/ gallbladder fossa. Nasogastric tube identified. IMPRESSION: Confirmation of cholecystotomy catheter placement.
--- NOTE | 2016-06-11 08:11 | CP.PCM.PN ---
Subjective - Date & Time of Evaluation Date of Evaluation: 06/11/16 Time of Evaluation: 08:10 - Subjective Subjective: SURGERY NOTE FOR DR. JOHNSON 75M seen and examined at bedside. Current extubated, awake and alert. Able to follow commands. Denies current pain, nausea, vomiting. Objective - Vital Signs/Intake and Output Vital Signs (last 24 hours): Temp Pulse Resp BP Pulse Ox 99.5 F 53 L 32 H 108/40 L 95 06/11/16 04:00 06/11/16 05:02 06/11/16 07:41 06/11/16 07:36 06/11/16 05:02 Intake and Output: 06/11/16 06/11/16 06:59 18:59 Intake Total 1485 Output Total 530 Balance 955 - Medications Medications: Current Medications Acetaminophen (Tylenol 325mg Tab) 650 mg PO Q8 PRN PRN Reason: Fever >100.4 F Last Admin: 06/07/16 19:27 Dose: 650 mg Albuterol/Ipratropium (Duoneb 3 Mg/0.5 Mg (3 Ml) Ud) 3 ml IH Q2H PRN PRN Reason: Shortness of Breath Albuterol/Ipratropium (Duoneb 3 Mg/0.5 Mg (3 Ml) Ud) 3 ml IH [id number] [facility] Last Admin: 06/11/16 07:10 Dose: 3 ml Famotidine (Pepcid) 20 mg IVP DAILY [facility] Last Admin: 06/10/16 09:49 Dose: 20 mg Fentanyl (Fentanyl) 100 mcg IVP Q1 PRN PRN Reason: Pain, severe (8-10) Last Admin: 06/08/16 10:15 Dose: 100 mcg Fentanyl (Fentanyl) 75 mcg IVP Q1 PRN PRN Reason: Pain, moderate (4-7) Dexmedetomidine HCl (Precedex 4 Mcg/Ml (100 Ml)) 100 mls @ 3.856 mls/hr IV .Q24H PRN; Protocol; 0.2 MCG/KG/HR PRN Reason: Agitation Last Titration: 06/10/16 07:20 Dose: 0 mcg/kg/hr Vasopressin 20 units/ Sodium (Chloride) 101 mls @ 9.09 mls/hr IV .Q11H7M YOLANDA; 0.03 U/MIN PRN Reason: Protocol Last Admin: 06/11/16 01:17 Dose: 9.09 mls/hr MEROPENEM-0.9% SODIUM CHLORIDE (Meropenem 1g/Ns 100ml Ivpb) 100 mls @ 100 mls/ hr IVPB Q8 YOLANDA PRN Reason: Protocol Stop: 06/15/16 13:01 Last Admin: 06/11/16 06:32 Dose: 100 mls/hr Norepinephrine Bitartrate 8 mg (/ Sodium Chloride) 258 mls @ 7.74 mls/hr IV .Q24H PRN; Protocol; 4 MCG/MIN PRN Reason: TITRATE PER MD ORDER Last Titration: 06/10/16 13:30 Dose: 2 mcg/min Potassium Chloride (Potassium Chloride 20 Meq/100 Ml) 100 mls @ 50 mls/hr IVPB Q2H YOLANDA Stop: 06/11/16 11:29 Last Admin: 06/11/16 08:02 Dose: 50 mls/hr Midodrine (Proamatine) 10 mg PO TID [facility] Last Admin: 06/10/16 21:00 Dose: 10 mg - Labs Labs: 06/11/16 05:50 06/11/16 05:50 PT 12.0 Seconds (9.9-11.8) H 06/09/16 06:46 INR 1.11 (0.93-1.08) H 06/09/16 06:46 APTT 31.2 Seconds (23.7-30.8) H 06/09/16 06:46 - Head Exam Head Exam: ATRAUMATIC - ENT Exam Additional comments: scab from melanoma removal on bridge nose - Respiratory Exam Respiratory Exam: Clear to Ausculation Bilateral, NORMAL BREATHING PATTERN - Cardiovascular Exam Cardiovascular Exam: REGULAR RHYTHM, +S1, +S2 - GI/Abdominal Exam GI & Abdominal Exam: Soft, Tenderness (RUQ). absent: Distended, Firm, Guarding , Rigid, Rebound Additional comments: drain in place, clear bile draining from PTC - Neurological Exam Neurological Exam: Alert, Awake - Skin Skin Exam: Dry, Intact, Normal Color, Warm Additional comments: scab on bridge of nose Assessment and Plan - Assessment and Plan (Free Text) Assessment: 75M s/p ERCP with CBD stent placement POD#1, PTC POD#3 HIDA: positive - bile does not leave liver Plan: - currently extubated, wean off pressors - No surgical intervention at this time. - will continue to follow Further recs discuss with Dr. Raghu aGrduno, PGY1
--- NOTE | 2016-06-11 08:28 | CP.PCM.PN ---
<Rogelio Cast - Last Filed: 06/11/16 11:36> Subjective - Date & Time of Evaluation Date of Evaluation: 06/11/16 Time of Evaluation: 07:00 - Subjective Subjective: PGY4 GI Fellow Progress Note Patient seen and examined bedside this morning. The patient has been successfully extubated. Answering questions appropriately though confused at times. Denies any complaints at this time. 12 system ROS performed and negative except where stated. Objective - Vital Signs/Intake and Output Vital Signs (last 24 hours): Temp Pulse Resp BP Pulse Ox 99.5 F 53 L 32 H 108/40 L 95 06/11/16 04:00 06/11/16 05:02 06/11/16 07:41 06/11/16 07:36 06/11/16 05:02 Intake and Output: 06/11/16 06/11/16 06:59 18:59 Intake Total 1485 Output Total 530 Balance 955 - Medications Medications: Current Medications Acetaminophen (Tylenol 325mg Tab) 650 mg PO Q8 PRN PRN Reason: Fever >100.4 F Last Admin: 06/07/16 19:27 Dose: 650 mg Albuterol/Ipratropium (Duoneb 3 Mg/0.5 Mg (3 Ml) Ud) 3 ml IH Q2H PRN PRN Reason: Shortness of Breath Albuterol/Ipratropium (Duoneb 3 Mg/0.5 Mg (3 Ml) Ud) 3 ml IH [id number] [facility] Last Admin: 06/11/16 07:10 Dose: 3 ml Famotidine (Pepcid) 20 mg IVP DAILY [facility] Last Admin: 06/10/16 09:49 Dose: 20 mg Fentanyl (Fentanyl) 100 mcg IVP Q1 PRN PRN Reason: Pain, severe (8-10) Last Admin: 06/08/16 10:15 Dose: 100 mcg Fentanyl (Fentanyl) 75 mcg IVP Q1 PRN PRN Reason: Pain, moderate (4-7) Dexmedetomidine HCl (Precedex 4 Mcg/Ml (100 Ml)) 100 mls @ 3.856 mls/hr IV .Q24H PRN; Protocol; 0.2 MCG/KG/HR PRN Reason: Agitation Last Titration: 06/10/16 07:20 Dose: 0 mcg/kg/hr Vasopressin 20 units/ Sodium (Chloride) 101 mls @ 9.09 mls/hr IV .Q11H7M YOLANDA; 0.03 U/MIN PRN Reason: Protocol Last Admin: 06/11/16 01:17 Dose: 9.09 mls/hr MEROPENEM-0.9% SODIUM CHLORIDE (Meropenem 1g/Ns 100ml Ivpb) 100 mls @ 100 mls/ hr IVPB Q8 YOLANDA PRN Reason: Protocol Stop: 06/15/16 13:01 Last Admin: 06/11/16 06:32 Dose: 100 mls/hr Norepinephrine Bitartrate 8 mg (/ Sodium Chloride) 258 mls @ 7.74 mls/hr IV .Q24H PRN; Protocol; 4 MCG/MIN PRN Reason: TITRATE PER MD ORDER Last Titration: 06/10/16 13:30 Dose: 2 mcg/min Potassium Chloride (Potassium Chloride 20 Meq/100 Ml) 100 mls @ 50 mls/hr IVPB Q2H YOLANDA Stop: 06/11/16 11:29 Last Admin: 06/11/16 08:02 Dose: 50 mls/hr Midodrine (Proamatine) 10 mg PO TID [facility] Last Admin: 06/10/16 21:00 Dose: 10 mg - Labs Labs: 06/11/16 05:50 06/11/16 05:50 PT 12.0 Seconds (9.9-11.8) H 06/09/16 06:46 INR 1.11 (0.93-1.08) H 06/09/16 06:46 APTT 31.2 Seconds (23.7-30.8) H 06/09/16 06:46 - Constitutional Appears: Non-toxic, No Acute Distress - Eye Exam Eye Exam: EOMI, PERRL - ENT Exam ENT Exam: Mucous Membranes Moist - Respiratory Exam Respiratory Exam: Clear to Ausculation Bilateral. absent: Rales, Rhonchi, Wheezes - Cardiovascular Exam Cardiovascular Exam: RRR, +S1, +S2 - GI/Abdominal Exam GI & Abdominal Exam: Distended, Soft, Tenderness (RUQ), Hypoactive Bowel Sounds. absent: Firm, Guarding, Rigid, Organomegaly Additional comments: tympanic in the RUQ/RLQ, dull to percussion in LUQ/LLQ - Extremities Exam Additional comments: B/L LE edema - Neurological Exam Neurological Exam: Alert, Awake. absent: Oriented x3 - Psychiatric Exam Psychiatric exam: Normal Affect, Normal Mood - Skin Skin Exam: Dry, Warm Assessment and Plan - Assessment and Plan (Free Text) Assessment: Patient is a 75yo male with PMHx significant for prostate cancer s/p brachytherapy, MDS, alzheimer's dementia who presented from nursing facility with abdominal pain, nausea and vomiting. -Sepsis with ESBL E coli -Acute cholangitis -Acalculous cholecystitis -Choledocolithiasis -Abdominal distention concerning for early ileus -Acute respiratory failure requiring mechanical ventilation, resolved and successfully extubated -Myelodysplastic syndrome -Alzheimer's dementia Plan: -S/P ERCP with CBD stent placement POD#2, PTC POD#4 -Total bilirubin downtrending, continue to monitor CMP -Abdomen soft but distended, bowel sounds more active on left side; tympany noted on right sided with plain film showing dilated look of bowel; serial abdominal examinations with low threshold to eval with cross-sectional imaging if needed -Choledocolithiasis noted but not treated given thrombocytopenia/medical instability -Will need repeat ERCP in 3 months for stent removal -Off ventilator, pressor requirements down -Continue ABX therapy -Will ultimately benefit from cholecystectomy, plan per surgery -Case discussed with Dr Garrett at [facility]; they are aware of patient's case, no plan for transfer at this juncture <Kan Patrick - Last Filed: 06/11/16 15:24> Objective - Vital Signs/Intake and Output Vital Signs (last 24 hours): Temp Pulse Resp BP Pulse Ox 100.2 F H 48 L 36 H 126/71 97 06/11/16 12:00 06/11/16 12:39 06/11/16 13:42 06/11/16 12:39 06/11/16 12:00 Intake and Output: 06/11/16 06/11/16 06:59 18:59 Intake Total 1485 Output Total 530 Balance 955 - Medications Medications: Current Medications Acetaminophen (Tylenol 325mg Tab) 650 mg PO Q8 PRN PRN Reason: Fever >100.4 F Last Admin: 06/07/16 19:27 Dose: 650 mg Albumin Human (Albumin Human 25% (25 Gm/100 Ml)) 25 gm IV Q1 YOLANDA Stop: 06/12/16 11:16 Last Admin: 06/11/16 13:58 Dose: 25 gm Albuterol/Ipratropium (Duoneb 3 Mg/0.5 Mg (3 Ml) Ud) 3 ml IH Q2H PRN PRN Reason: Shortness of Breath Albuterol/Ipratropium (Duoneb 3 Mg/0.5 Mg (3 Ml) Ud) 3 ml IH [id number] [facility] Last Admin: 06/11/16 13:10 Dose: 3 ml Famotidine (Pepcid) 20 mg IVP DAILY [facility] Last Admin: 06/11/16 10:13 Dose: 20 mg Fentanyl (Fentanyl) 100 mcg IVP Q1 PRN PRN Reason: Pain, severe (8-10) Last Admin: 06/11/16 13:56 Dose: 100 mcg Fentanyl (Fentanyl) 75 mcg IVP Q1 PRN PRN Reason: Pain, moderate (4-7) Dexmedetomidine HCl (Precedex 4 Mcg/Ml (100 Ml)) 100 mls @ 3.856 mls/hr IV .Q24H PRN; Protocol; 0.2 MCG/KG/HR PRN Reason: Agitation Last Titration: 06/10/16 07:20 Dose: 0 mcg/kg/hr Vasopressin 20 units/ Sodium (Chloride) 101 mls @ 9.09 mls/hr IV .Q11H7M YOLANDA; 0.03 U/MIN PRN Reason: Protocol Last Admin: 06/11/16 12:39 Dose: 9.09 mls/hr MEROPENEM-0.9% SODIUM CHLORIDE (Meropenem 1g/Ns 100ml Ivpb) 100 mls @ 100 mls/ hr IVPB Q8 YOLANDA PRN Reason: Protocol Stop: 06/15/16 13:01 Last Admin: 06/11/16 14:00 Dose: 100 mls/hr Norepinephrine Bitartrate 8 mg (/ Sodium Chloride) 258 mls @ 7.74 mls/hr IV .Q24H PRN; Protocol; 4 MCG/MIN PRN Reason: TITRATE PER MD ORDER Last Titration: 06/10/16 13:30 Dose: 2 mcg/min Midodrine (Proamatine) 10 mg PO TID [facility] Last Admin: 06/11/16 14:00 Dose: 10 mg - Labs Labs: 06/11/16 05:50 06/11/16 05:50 PT 12.0 Seconds (9.9-11.8) H 06/09/16 06:46 INR 1.11 (0.93-1.08) H 06/09/16 06:46 APTT 31.2 Seconds (23.7-30.8) H 06/09/16 06:46 Attending/Attestation - Attestation I have personally seen and examined this patient.: Yes I have fully participated in the care of the patient.: Yes I have reviewed all pertinent clinical information, including history, physical exam and plan: Yes Notes (Text): Patient seen and examined with GI fellow. Agree with his note as documented above with the following additions/exceptions. This is a 75yo male with PMHx significant for prostate cancer s/p brachytherapy, MDS, alzheimer's dementia who presented with abdominal pain and vomiting ESBL e coli bacteremia s/p PTC and s/p ERCP with stent placement. He remains in ICU on pressor. He is extubated. His T bili is slightly downtrending today. Leukocytosis dramatically improved. Would continue supportive care, antibiotic therapy. Monitor LFTs closely. Monitor PTC output. He will need repeat ERCP in 2-3 months for stent/stone removal. Will continue to follow and make recommendations pending clinical course. D/w patient's who is present at bedside. 06/11/16 15:21
[2016-06-11 08:32] LABS: ARTERIAL BLOOD GAS HCO3 22.9 mmol/L (21-28); ARTERIAL BLOOD GAS PH 7.52 (7.35-7.45)
--- NOTE | 2016-06-11 08:57 | RAD ---
HISTORY: sob COMPARISON: Comparison is made to the previous study dated 06/10/2016 FINDINGS: LUNGS: Interval appearance of hazy opacity at the mid right lung and left lower lobe since the previous exam may represent atelectasis. The possibility of aspiration pneumonia is not totally excluded. PLEURA: No significant pleural effusion identified, no pneumothorax apparent. CARDIOVASCULAR: Normal. OSSEOUS STRUCTURES: No significant abnormalities. VISUALIZED UPPER ABDOMEN: Normal. OTHER FINDINGS: Right jugular central line is seen in place. IMPRESSION: New opacities at the right mid and lower lung and left lower lobe since the previous exam may represent atelectasis. The possibility of aspiration pneumonia is not totally excluded. Otherwise no interval change P
--- NOTE | 2016-06-11 09:16 | RAD ---
HISTORY: abdominal distention COMPARISON: Comparison is made to the previous study dated 07/12/2014 FINDINGS: BOWEL: Mild constipation is noted. No evidence of SBO. BONES: Normal. OTHER FINDINGS: Postsurgical changes seen at the anterior abdominal wall. IMPRESSION: No evidence of SBO. Mild constipation in the rectum.
--- NOTE | 2016-06-11 09:28 | PN ---
DATE: 06/11/2016(615am--705am) SUBJECTIVE: The patient is currently extubated. He is moderately to severely short of breath this morning. PHYSICAL EXAMINATION: VITAL SIGNS: Temperature is 99.5, pulse 53, respirations 39, blood pressure 107 /60. Oxygen saturation on high flow delivery/80% -- 95%. HEENT: Normocephalic, atraumatic. No JVD. CARDIOVASCULAR: Positive S1, S2. No S3. LUNGS: Decreased breath sounds at the bases. Increased bilateral rhonchi. No wheezing. EXTREMITIES: Positive for mild edema. No cyanosis, no clubbing. Calves are nontender to palpation. GASTROINTESTINAL: Abdomen is soft. It remains distended and tender to palpation. Bowel sounds are decreased. SKIN: No acute rash. NEUROLOGIC: Limited at the present time. PERTINENT LABORATORY DATA: Chest x-ray was done this morning and reviewed. There is an infiltrate/atelectasis noted in the right middle lobe area. CBC: White count 7.3, hemoglobin 10.8, hematocrit 30.3, platelets of 42,000. Repeat arterial blood gas is pending. IMPRESSION: 1. Respiratory failure. 2. Infiltrate/atelectasis -- right middle lobe. 3. Septic shock. 4. Ascending cholangitis. 5. Acute cholecystitis. 6. Mild anemia. 7. Severe thrombocytopenia. 8. Increased liver function enzymes. PLAN: The patient was extubated yesterday. At the present time, he is moderately to severely short of breath. He is now on 80% high flow oxygen delivery with an oxygen saturation of 95%. I did discuss the case with the night nurse at length. The night nurse confirmed that the patient is not doing well overall. I did review the x-ray as above. There is now an opacity in the right middle lobe area -- consistent with infiltrate/atelectasis. The nebulizer treatments have been changed to DuoNebs. Mucomyst has also been added. I did discuss the case with the respiratory therapist at length. We will start chest percussion therapy and suctioning with all nebulizer treatments. As above, a stat arterial blood gas has been ordered, and I will be called with those results. I will discuss the above with the ICU team in the next few moments. The patient may need to be reintubated. I would continue with the GI and surgical evaluations. The bilirubin continues to rise. I would continue with the antibiotic coverage as per infectious disease. Input by Dr. Schroeder is noted. There are low-grade temperatures present. The leukocytosis has resolved. The patient remains critically ill with overall poor status/prognosis. I will discuss the above with Dr. Nicholson in the next few moments. Medardo Whittaker MD cc: [id number] TT: 06/11/2016 09:27:55 Confirmation # [id number] Dictation # [id number] en MTDD
--- NOTE | 2016-06-11 09:39 | PN ---
DATE: 06/11/2016 The patient seen and examined at bedside. He is alert, awake, comfortable. He is tachypneic; however, it appears that this is habitual, based on the fact that the patient talking full sentences and not using accessory muscles. The patient is on 80% high flow. Chest x-ray showed bilateral vascular congestion, right more than left; cannot rule out infiltrate. PHYSICAL EXAMINATION: VITAL SIGNS: Blood pressure 108/44 on 1 mcg/minute of norepinephrine and vasopressin 0.03 units/minute. Oxygen saturation 96-99% on high flow 80% and 60 liters per minute, respiratory rate 20-30. HEAD AND NECK: Atraumatic. LUNGS: A few crackles bilaterally. HEART: Regular rate and rhythm. S1, S2 normal. ABDOMEN: Soft, nontender, nondistended. MUSCULOSKELETAL: No C/C/E. NEUROLOGIC: The patient moves all extremities spontaneously. SKIN: Moist. PSYCHIATRIC: The patient is alert and oriented x 3. LABORATORY DATA: Sodium 148, potassium 3.1, chloride 115, carbon dioxide 25, BUN 24, creatinine 0.7, glucose 165. AST 70, ALT 97, total bilirubin 13 (down from 15), alkaline phosphatase 171. Procalcitonin 83.34. ABG is pending. MEDICATIONS: DuoNeb every 6, Precedex, IV fluids stopped, Lasix given, meropenem, Pepcid, potassium supplementation, midodrine 10 mg p.o. t.i.d., vasopressin 0.03 units/minute, fentanyl p.r.n. ASSESSMENT AND PLAN: This is a 75-year-old gentleman who initially presented with septic shock secondary to ascending cholangitis and acute cholecystitis. The patient was fluid resuscitated. Pressors are weaned, vasopressin cont in a supplementary dose. At present time, the patient appears to be fluid overloaded. There is evidence of worsening bilateral vascular congestion on chest x-ray. We will proceed with furosemide to maintain negative fluid balance at least 1 liter (his renal function is within normal limits). Will stop IV fluids. Will continue with high flow and taper FIO2 as tolerated according to conservative oxygen management. We will proceed with conservative fluid management as well. Will continue with midodrine 10 mg p.o. t.i.d. Most importantly, also bilirubin has started to come down. I am a little bit concerned about his abdomen which is slightly distended and mildly tender, which likely can be attributed to recent ERCP and biliary process that is going on. However, AXR showed non-specific pattern and some hypoactive BS, that werent ausculated yesterday, were heard on auscultation. GI fellow at bedside concurred. I will continue to target euvolemia, euglycemia, normothermia and oxygen saturation more than 90%. I will continue with meropenem, septic workup and will repeat procalcitonin. ID service is following the patient as well. Echo 3 months ago revealed low normal LV systolic function with mild diastolic dysfunction. No chest pain and today's troponin is negative I will continue with deep venous thrombosis and gastrointestinal prophylaxis. Addendum: 7:00 am to 3:30 pm patient is negative 2.2L fluid balance. Still off NE/hemodyanmically stable and fi02 down to 75 percent. Repeat BMP and CXR are pending. Patient is more alert, awake, comfortable. ccm time 40 min Bryce Bautista MD cc: [id number] TT: 06/11/2016 09:38:32 Confirmation # [id number] Dictation # [id number] pankaj VALADEZ
--- NOTE | 2016-06-11 10:14 | PN ---
DATE: 06/11/2016 The patient is in the intensive care unit. He is in isolation. in the urine. He is off the ventilator. He is on high flow nasal oxygen. He is talking to me. He is back to his baseline. He is still a little bit congested. I think they are giving him Lasix to see if we can decompress his fluid volume. He is on DuoNeb, fentanyl, Merrem IV, Pepcid, potassium replacement, Precedex, proamatine, Tylenol and vasopressin. I believe they gave him some Lasix this morning. PHYSICAL EXAMINATION: VITAL SIGNS: 99.5 temp, 60 pulse, 108/40 blood pressure, 94% O2 sat on nasal cannula, high flow. HEENT: Head atraumatic, normocephalic. GENERAL: He is talking to me, he is alert, he is back to his baseline, mildly confused. HEART: Regular rate. LUNGS: Decreased breath sounds, but clear to auscultation. ABDOMEN: Soft. He has a pigtail catheter in his gallbladder. It is draining a little bit, not as bad. EXTREMITIES: No edema. He is currently on DuoNeb, fentanyl, Merrem, norepinephrine, Pepcid, potassium, Precedex, proamatine, Tylenol, vasopressin. He has a 7.3 white count, 10.8 hemoglobin, 33.3 hematocrit with 42 platelets. He is not bleeding. He has a 148 sodium, potassium 3.1. Did start to give him replacement of potassium, which is good. BUN 24, creatinine 0.7, GFR is greater than 60, sugar is 165, calcium 7.5, phosphorus 2, magnesium 2.2. Total bilirubin is starting to come down, it is 13. AST is 70, ALT is 97 coming down and alk phos 117 with a 4.8 total protein. He is being seen by multiple doctors, GI, infectious disease, pulmonary, the rubber flap cutter, oncology/hematology. He may need to have the gallbladder removed once we get him more stable and surgery is following him. He is slowly improving. He is off the ventilator. Check his labs tomorrow. Sean Nicholson DO cc: [id number] TT: 06/11/2016 10:14:00 Confirmation # [id number] Dictation # [id number] an [id number]
[2016-06-11] MEDS: Albumin Human 25% (25 gm/100 ml) IV SCH ×2 (12:39→13:58)
--- NOTE | 2016-06-11 13:21 | CP.PCM.PN ---
Subjective - Date & Time of Evaluation Date of Evaluation: 06/11/16 Time of Evaluation: 08:30 - Subjective Subjective: Patient is now extubated, afebrile overnight, complaining of abdominal pain. Objective - Vital Signs/Intake and Output Vital Signs (last 24 hours): Temp Pulse Resp BP Pulse Ox 99.5 F 53 L 39 H 107/60 95 06/11/16 04:00 06/11/16 05:02 06/11/16 05:02 06/11/16 05:00 06/11/16 05:02 Intake and Output: 06/10/16 06/11/16 18:59 06:59 Intake Total 1945 1485 Output Total 380 530 Balance 1565 955 - Medications Medications: Current Medications Acetaminophen (Tylenol 325mg Tab) 650 mg PO Q8 PRN PRN Reason: Fever >100.4 F Last Admin: 06/07/16 19:27 Dose: 650 mg Acetylcysteine (Acetylcysteine 20%) 4 ml IH [id number] YOLANDA Famotidine (Pepcid) 20 mg IVP DAILY [facility] Last Admin: 06/10/16 09:49 Dose: 20 mg Fentanyl (Fentanyl) 100 mcg IVP Q1 PRN PRN Reason: Pain, severe (8-10) Last Admin: 06/08/16 10:15 Dose: 100 mcg Fentanyl (Fentanyl) 75 mcg IVP Q1 PRN PRN Reason: Pain, moderate (4-7) Dexmedetomidine HCl (Precedex 4 Mcg/Ml (100 Ml)) 100 mls @ 3.856 mls/hr IV .Q24H PRN; Protocol; 0.2 MCG/KG/HR PRN Reason: Agitation Last Titration: 06/10/16 07:20 Dose: 0 mcg/kg/hr Vasopressin 20 units/ Sodium (Chloride) 101 mls @ 9.09 mls/hr IV .Q11H7M YOLANDA; 0.03 U/MIN PRN Reason: Protocol Last Admin: 06/11/16 01:17 Dose: 9.09 mls/hr Dextrose/Sodium Chloride (Dextrose 5%/0.9% Ns 1000 Ml) 1,000 mls @ 100 mls/hr IV .Q10H YOLANDA Last Admin: 06/10/16 20:26 Dose: 100 mls/hr MEROPENEM-0.9% SODIUM CHLORIDE (Meropenem 1g/Ns 100ml Ivpb) 100 mls @ 100 mls/ hr IVPB Q8 YOLANDA PRN Reason: Protocol Stop: 06/15/16 13:01 Last Admin: 06/11/16 06:32 Dose: 100 mls/hr Norepinephrine Bitartrate 8 mg (/ Sodium Chloride) 258 mls @ 7.74 mls/hr IV .Q24H PRN; Protocol; 4 MCG/MIN PRN Reason: TITRATE PER MD ORDER Last Titration: 06/10/16 13:30 Dose: 2 mcg/min Levalbuterol HCl (Xopenex) 0.63 mg IH [id number] [facility] Last Admin: 06/11/16 01:21 Dose: 0.63 mg Midodrine (Proamatine) 10 mg PO TID [facility] Last Admin: 06/10/16 21:00 Dose: 10 mg - Labs Labs: 06/11/16 05:50 06/10/16 06:15 PT 12.0 Seconds (9.9-11.8) H 06/09/16 06:46 INR 1.11 (0.93-1.08) H 06/09/16 06:46 APTT 31.2 Seconds (23.7-30.8) H 06/09/16 06:46 - Constitutional Appears: Non-toxic, No Acute Distress - Head Exam Head Exam: NORMAL INSPECTION - Neck Exam Neck Exam: absent: Lymphadenopathy, Meningismus Additional comments: right internal jugular central venous catheter site intact and clean - Respiratory Exam Respiratory Exam: Decreased Breath Sounds - Cardiovascular Exam Cardiovascular Exam: +S1, +S2 - GI/Abdominal Exam GI & Abdominal Exam: Soft, Tenderness (diffuse, mild). 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 coli bacteremia and sepsis probably biliary tree in origin History of Klebsiella UTI Plan Continue Meropenem (day 5); repeat blood cx, urine cx are negative; repeat CXR only shows bibasilar ateactasis will continue to continue to monitor clinically, trend WBC count and trend fever curve Overall prognosis is poor
--- NOTE | 2016-06-11 17:25 | RAD ---
HISTORY: followup COMPARISON: 06/11/2016 FINDINGS: The right IJV line terminates in the right atrium. LUNGS: There is redemonstration of airspace disease in the right lower lobe. The left lung is clear. Lung markings are accentuated. PLEURA: No significant pleural effusion identified, no pneumothorax apparent. CARDIOVASCULAR: Normal. OSSEOUS STRUCTURES: No significant abnormalities. VISUALIZED UPPER ABDOMEN: Normal. OTHER FINDINGS: None. IMPRESSION: No significant interval change in right lower lobe pneumonia. Underlying mass cannot be excluded. Follow-up to resolution is advised. Mild pulmonary venous congestion.
[2016-06-11 17:33] LABS: ALB/GLOB RATIO 1.2 (1.1-1.8); ALKALINE PHOSPHATASE 129 U/L (38-133); ALT/SGPT 72 U/L (7-56); AST/SGOT 58 U/L (15-59); BILIRUBIN,TOTAL 10.9 mg/dL (0.2-1.3); BLOOD UREA NITROGEN 23 mg/dL (7-21); CALCIUM 7.9 mg/dL (8.4-10.5); CARBON DIOXIDE 24 mmol/L (21-33); CHLORIDE 113 mmol/L (98-107); GFR AFRICAN-AMERICAN > 60; GLUCOSE,RANDOM 156 mg/dL (70-110); POTASSIUM 3.8 mmol/L (3.6-5.0); SODIUM 148 mmol/L (132-148); TOTAL PROTEIN 5.1 g/dL (5.8-8.3)
[2016-06-12] MEDS: Albuterol-Ipratrop 3 mg / 0.5 (3 ml) UD IH SCH ×3 (02:21→20:00)
[2016-06-12] MEDS: Meropenem 1g/NS 100mL IVPB 100 ML IVPB SCH ×3 (05:13→21:45)
[2016-06-12 06:36] LABS: BASO # 0.01 K/mm3 (0.0-2.0); BASO % 0.2 % (0.0-3.0); EOS # 0.1 (0.0-0.7); EOS % 1.1 % (1.5-5.0); GRAN # 5.72 (1.4-6.5); GRAN % 86.7 % (50.0-68.0); HEMATOCRIT 27.1 % (42.0-52.0); LYMPH # 0.4 (1.2-3.4); LYMPH % 5.6 % (22.0-35.0); MEAN CELL VOLUME 91.6 fL (80.0-105.0); MEAN CORPUSCULAR HEMOGLOBIN 31.8 pg (25.0-35.0); MEAN CORPUSCULAR HGB CONC 34.7 g/dl (31.0-37.0); MONO # 0.4 (0.1-0.6); MONO % 6.4 % (1.0-6.0); PLATELET COUNT 53 10^3/uL (120.0-450.0); WHITE BLOOD COUNT 6.6 10^3/ul (4.5-11.0)
[2016-06-12 06:40] LABS: ADD MANUAL DIFF? NO
[2016-06-12 07:19] LABS: ARTERIAL BLOOD GAS HCO3 25.7 mmol/L (21-28); ARTERIAL BLOOD GAS O2 CAPACITY 16.3 mL/dl (16-24); ARTERIAL BLOOD GAS O2 CONTENT 15.7 ML/dl (15-23); ARTERIAL BLOOD GAS PH 7.45 (7.35-7.45); CARBOXYHEMOGLOBIN 2.4 % (0.5-1.5); HHB 3.7 % (0-5); METHEMOGLOBIN 0.9 % (0.0-3.0)
--- NOTE | 2016-06-12 07:19 | CP.PCM.PN ---
Subjective - Date & Time of Evaluation Date of Evaluation: 06/12/16 Time of Evaluation: 07:00 - Subjective Subjective: General Surgery Dr. Krishnamurthy Pt S&E @bedside. NAEO. on High flow NC. awake and able to answer questions. denies N/V, F/C. Levo on hold. receiving 0.03 Vasopressin. Miguelina Drain 80mL serosang Objective - Vital Signs/Intake and Output Vital Signs (last 24 hours): Temp Pulse Resp BP Pulse Ox 98.3 F 56 L 23 116/62 93 L 06/12/16 04:00 06/12/16 06:00 06/12/16 06:00 06/12/16 06:00 06/12/16 06:00 Intake and Output: 06/12/16 06/12/16 06:59 18:59 Intake Total 388 Output Total 530 Balance -142 - Medications Medications: Current Medications Acetaminophen (Tylenol 325mg Tab) 650 mg PO Q8 PRN PRN Reason: Fever >100.4 F Last Admin: 06/07/16 19:27 Dose: 650 mg Acetylcysteine (Acetylcysteine 20%) 4 ml IH [id number] [facility] Albuterol/Ipratropium (Duoneb 3 Mg/0.5 Mg (3 Ml) Ud) 3 ml IH Q2H PRN PRN Reason: Shortness of Breath Albuterol/Ipratropium (Duoneb 3 Mg/0.5 Mg (3 Ml) Ud) 3 ml IH [id number] [facility] Last Admin: 06/12/16 02:21 Dose: 3 ml Famotidine (Pepcid) 20 mg IVP DAILY [facility] Last Admin: 06/11/16 10:13 Dose: 20 mg Fentanyl (Fentanyl) 100 mcg IVP Q1 PRN PRN Reason: Pain, severe (8-10) Last Admin: 06/12/16 02:36 Dose: 100 mcg Fentanyl (Fentanyl) 75 mcg IVP Q1 PRN PRN Reason: Pain, moderate (4-7) Vasopressin 20 units/ Sodium (Chloride) 101 mls @ 9.09 mls/hr IV .Q11H7M YOLANDA; 0.03 U/MIN PRN Reason: Protocol Last Admin: 06/12/16 01:25 Dose: 9.09 mls/hr MEROPENEM-0.9% SODIUM CHLORIDE (Meropenem 1g/Ns 100ml Ivpb) 100 mls @ 100 mls/ hr IVPB Q8 YOLANDA PRN Reason: Protocol Stop: 06/15/16 13:01 Last Admin: 06/12/16 05:13 Dose: 100 mls/hr Norepinephrine Bitartrate 8 mg (/ Sodium Chloride) 258 mls @ 7.74 mls/hr IV .Q24H PRN; Protocol; 4 MCG/MIN PRN Reason: TITRATE PER MD ORDER Last Titration: 06/10/16 13:30 Dose: 2 mcg/min Midodrine (Proamatine) 10 mg PO TID [facility]ANDA Last Admin: 06/11/16 17:09 Dose: 10 mg Ondansetron HCl (Zofran Inj) 4 mg IVP Q6H PRN PRN Reason: Nausea/Vomiting Last Admin: 06/11/16 17:35 Dose: 4 mg - Labs Labs: 06/12/16 06:00 06/12/16 06:00 Laboratory Tests 06/12/16 06/12/16 06:00 07:00 pCO2 37 pO2 72.0 L HCO3 25.7 ABG pH 7.45 ABG Total CO2 26.8 ABG O2 Saturation 96.2 ABG O2 Content 15.7 Hgb O2 Saturation 93.0 L FiO2 80.0 Calcium 8.1 L Phosphorus 1.8 L Magnesium 2.3 H Total Bilirubin 9.0 H AST 56 ALT 66 H NT-Pro-B Natriuret Pep Pending Total Protein 5.0 L Albumin 2.7 L - Constitutional Appears: Toxic, Older Than Stated Age - Head Exam Head Exam: NORMAL INSPECTION - ENT Exam Additional comments: nose w/ black escar on bridge - Respiratory Exam Respiratory Exam: NORMAL BREATHING PATTERN. absent: Accessory Muscle Use, Respiratory Distress Additional comments: NC in place - Cardiovascular Exam Cardiovascular Exam: Bradycardia, REGULAR RHYTHM - GI/Abdominal Exam GI & Abdominal Exam: Distended, Firm, Tenderness (minimal RUQ). absent: Guarding, Rebound - Neurological Exam Neurological Exam: Alert, Awake - Psychiatric Exam Psychiatric exam: Normal Affect, Normal Mood - Skin Skin Exam: Diaphoretic, Intact, Warm Assessment and Plan - Assessment and Plan (Free Text) Assessment: 75 y/o M s/p ERCP with CBD stent placement POD#2, PTC POD#4 - wean off pressors - f/u GI recs - No surgical intervention at this time. - will continue to follow Pt discussed w/ Dr. Raghu Larose DO PGY1
[2016-06-12] MEDS: Acetylcysteine 20% Inhal Soln (4ml) IH SCH ×3 (07:25→20:00)
[2016-06-12 07:26] LABS: ALB/GLOB RATIO 1.2 (1.1-1.8); ALKALINE PHOSPHATASE 127 U/L (38-133); ALT/SGPT 66 U/L (7-56); AST/SGOT 56 U/L (15-59); BLOOD UREA NITROGEN 26 mg/dL (7-21); CALCIUM 8.1 mg/dL (8.4-10.5); CARBON DIOXIDE 26 mmol/L (21-33); CHLORIDE 115 mmol/L (98-107); GFR AFRICAN-AMERICAN > 60; GLUCOSE,RANDOM 144 mg/dL (70-110); MAGNESIUM 2.3 mg/dL (1.7-2.2); PHOSPHOROUS 1.8 mg/dL (2.5-4.5); POTASSIUM 3.7 mmol/L (3.6-5.0); SODIUM 150 mmol/L (132-148)
--- NOTE | 2016-06-12 08:00 | CP.CCUPN ---
<Marcos Howard - Last Filed: 06/12/16 11:00> CCU Subjective - Physician Review Subjective (Free Text): Pt s&e w ICU attending. Pt on levo and vasopressin. BP is good. Will DC pressors. Pt is off sedation. Pt is arouasble, response to stimuli, follows commands. Plan for swan catheter today. 06/12/16 11:00 CCU Objective - Vital Signs / Intake & Output Vital Signs (Last 4 hours): Vital Signs Temp Pulse Resp BP Pulse Ox 06/12/16 07:29 28 H 06/12/16 07:15 57 L 06/12/16 06:00 56 L 23 116/62 93 L 06/12/16 05:30 60 33 H 94 L 06/12/16 05:00 64 28 H 118/64 96 06/12/16 04:07 57 L 36 H 97 06/12/16 04:00 98.3 F 56 L 26 H 119/61 97 Intake and Output (Last 8hrs): Intake & Output 06/11/16 06/12/16 06/12/16 22:59 06:59 14:59 Intake Total 998 388 Output Total 3610 530 Balance -2612 -142 Intake: IV 878 358 Right Internal Jugular 50 IVF 50 Saline bolus 0 Precedex 0 Antibiotic 100 200 Levophed 20 K-rider 600 Vasopressin 108 108 Oral 120 30 Output: Drainage 50 30 Right Upper Abdomen 50 30 Urine 3360 500 Urethral (Tong) 3360 500 Other 200 Other: Voiding Method Indwelling Catheter Indwelling Catheter # Bowel Movements 0 0 - Physical Exam Head: Positive for: Atraumatic, Normocephalic Pupils: Positive for: PERRL Extroacular Muscles: Positive for: EOMI Conjunctiva: Positive for: Normal Mouth: Positive for: Moist Mucous Membranes Pharnyx: Negative for: ERYTHEMA, EXUDATE, TONSILS ENLARGED Nose (External): Positive for: Other (high flow NC ) Respiratory/Chest: Positive for: Other (b/l crackles). Negative for: Respiratory Distress, Accessory Muscle Use Cardiovascular: Positive for: Regular Rate and Rhythm, Normal S1, S2. Negative for: Murmurs Abdomen: Positive for: Other (Miguelina tube in place: SS fluids. Minimal output ). Negative for: Tenderness (rigid surgical abdomen), Distention (Abdomen distended tympanitic and quiet with surgical scar), Normal Bowel Sounds, Rebound , Guarding Back: Positive for: Normal Inspection Upper Extremity: Positive for: Edema, Normal ROM. Negative for: Cyanosis Lower Extremity: Positive for: Normal Inspection. Negative for: Edema Neurological: Positive for: GCS=15, CN II-XII Intact, Speech Normal, Motor Func Grossly Intact Psychiatric: Negative for: Alert, Oriented x 3, Normal Insight - Medications Active Medications: Active Medications Generic Name Dose Route Start Last Admin Trade Name Freq PRN Reason Stop Dose Admin Acetaminophen 650 mg 06/06/16 15:35 06/07/16 19:27 Tylenol 325mg Tab PO 650 mg Q8 PRN Administration Fever >100.4 F Acetylcysteine 4 ml 06/12/16 08:00 06/12/16 07:25 Acetylcysteine 20% IH 4 ml [id number] YOLANDA Administration Albuterol/Ipratropium 3 ml 06/11/16 07:01 Duoneb 3 Mg/0.5 Mg (3 Ml) Ud IH Q2H PRN Shortness of Breath Albuterol/Ipratropium 3 ml 06/11/16 08:00 06/12/16 07:25 Duoneb 3 Mg/0.5 Mg (3 Ml) Ud IH 3 ml [id number] YOLANDA Administration Famotidine 20 mg 06/08/16 10:00 06/11/16 10:13 Pepcid IVP 20 mg DAILY YOLANDA Administration Fentanyl 75 mcg 06/07/16 11:36 Fentanyl IVP Q1 PRN Pain, moderate (4-7) Furosemide 40 mg 06/12/16 10:00 Lasix IVP DAILY YOLANDA Vasopressin 20 units/ Sodium 101 mls @ 9.09 mls/hr 06/06/16 21:30 06/12/16 01: 25 Chloride IV 9.09 mls/hr .[id number] YOLANDA Administration Protocol 0.03 U/MIN MEROPENEM-0.9% SODIUM CHLORIDE 100 mls @ 100 mls/hr 06/09/16 09:24 06/12/16 05: 13 Meropenem 1g/Ns 100ml Ivpb IVPB 06/15/16 13:01 100 mls/hr Q8 YOLANDA Administration Protocol Norepinephrine Bitartrate 8 mg 258 mls @ 7.74 mls/hr 06/10/16 10:39 06/10/16 13 :30 / Sodium Chloride IV 2 mcg/min .Q24H PRN Titration TITRATE PER MD ORDER Protocol 4 MCG/MIN Midodrine 10 mg 06/10/16 19:30 06/11/16 17:09 Proamatine PO 10 mg TID YOLANDA Administration Ondansetron HCl 4 mg 06/11/16 17:21 06/11/16 17:35 Zofran Inj IVP 4 mg Q6H PRN Administration Nausea/Vomiting - Patient Studies Lab Studies: Microbiology Studies 06/09/16 08:45 Blood Culture - Preliminary Blood-Venous NO GROWTH AFTER 48 HOURS 06/09/16 08:40 Blood Culture - Preliminary Blood-Venous NO GROWTH AFTER 48 HOURS 06/08/16 08:30 Blood Culture - Preliminary Blood-Venous NO GROWTH AFTER 3 DAYS 06/08/16 08:30 Blood Culture - Preliminary Blood-Venous NO GROWTH AFTER 3 DAYS Lab Studies 06/12/16 06/12/16 06/11/16 Range/Units 07:00 06:00 17:10 WBC 6.6 (4.5-11.0) 10^3/ul RBC 2.96 L (3.5-6.1) 10^6/uL Hgb 9.4 L (14.0-18.0) gm/dL Hct 27.1 L (42.0-52.0) % MCV 91.6 (80.0-105.0) fL MCH 31.8 (25.0-35.0) pg MCHC 34.7 (31.0-37.0) g/dl RDW 15.0 H (11.5-14.5) % Plt Count 53 L (120.0-450.0) 10^3/uL MPV 12.0 H (7.0-11.0) fl Gran % 86.7 H (50.0-68.0) % Lymph % (Auto) 5.6 L (22.0-35.0) % [place] % (Auto) 6.4 H (1.0-6.0) % Eos % (Auto) 1.1 L (1.5-5.0) % Baso % (Auto) 0.2 (0.0-3.0) % Gran # 5.72 (1.4-6.5) Lymph # 0.4 L (1.2-3.4) [place] # 0.4 (0.1-0.6) Eos # 0.1 (0.0-0.7) Baso # 0.01 (0.0-2.0) K/mm3 pCO2 37 (35-45) mm/Hg pO2 72.0 L (80-100) mm/Hg HCO3 25.7 (21-28) mmol/L ABG pH 7.45 (7.35-7.45) ABG Total CO2 26.8 (22-28) mmol.L ABG O2 Saturation 96.2 (95-98) % ABG O2 Content 15.7 (15-23) ML/dl ABG Base Excess 1.8 (-2.0-3.0) mmol/L ABG Hemoglobin 12.0 (11.7-17.4) g/dL ABG Carboxyhemoglobin 2.4 H (0.5-1.5) % POC ABG HHb (Measured) 3.7 (0-5) % ABG Methemoglobin 0.9 (0.0-3.0) % ABG O2 Capacity 16.3 (16-24) mL/dl ABG Potassium (3.6-5.2) mmol/L Hgb O2 Saturation 93.0 L (95.0-98.0) % Glucose (75-110) mg/dl Lactate (0.7-2.1) mmol/L FiO2 80.0 % Sodium 150 H 148 (132-148) mmol/L Potassium 3.7 3.8 (3.6-5.0) mmol/L Chloride 115 H 113 H (98-107) mmol/L Carbon Dioxide 26 24 (21-33) mmol/L Anion Gap 13 15 (10-20) BUN 26 H 23 H (7-21) mg/dL Creatinine 0.7 0.8 (0.5-1.4) mg/dL Est GFR ( Amer) > 60 > 60 Est GFR (Non-Af Amer) > 60 > 60 Random Glucose 144 H 156 H (70-110) mg/dL Calcium 8.1 L 7.9 L (8.4-10.5) mg/dL Phosphorus 1.8 L (2.5-4.5) mg/dL Magnesium 2.3 H (1.7-2.2) mg/dL Total Bilirubin 9.0 H 10.9 H (0.2-1.3) mg/dL AST 56 58 (15-59) U/L ALT 66 H 72 H (7-56) U/L Alkaline Phosphatase 127 129 (38-133) U/L Troponin I ng/mL NT-Pro-B Natriuret Pep 79257 H (0-450) pg/mL Total Protein 5.0 L 5.1 L (5.8-8.3) g/dL Albumin 2.7 L 2.8 L (3.0-4.8) g/dL Globulin 2.3 2.3 gm/dL Albumin/Globulin Ratio 1.2 1.2 (1.1-1.8) Procalcitonin (0.19-0.49) NG/ML Arterial Blood Potassium (3.6-5.2) mmol/L 06/11/16 06/11/16 06/11/16 Range/Units 12:45 08:20 06:30 WBC (4.5-11.0) 10^3/ul RBC (3.5-6.1) 10^6/uL Hgb (14.0-18.0) gm/dL Hct (42.0-52.0) % MCV (80.0-105.0) fL MCH (25.0-35.0) pg MCHC (31.0-37.0) g/dl RDW (11.5-14.5) % Plt Count (120.0-450.0) 10^3/uL MPV (7.0-11.0) fl Gran % (50.0-68.0) % Lymph % (Auto) (22.0-35.0) % [place] % (Auto) (1.0-6.0) % Eos % (Auto) (1.5-5.0) % Baso % (Auto) (0.0-3.0) % Gran # (1.4-6.5) Lymph # (1.2-3.4) [place] # (0.1-0.6) Eos # (0.0-0.7) Baso # (0.0-2.0) K/mm3 pCO2 28 L (35-45) mm/Hg pO2 95.0 (80-100) mm/Hg HCO3 22.9 (21-28) mmol/L ABG pH 7.52 H (7.35-7.45) ABG Total CO2 23.8 (22-28) mmol.L ABG O2 Saturation 97.6 (95-98) % ABG O2 Content (15-23) ML/dl ABG Base Excess 1.1 (-2.0-3.0) mmol/L ABG Hemoglobin (11.7-17.4) g/dL ABG Carboxyhemoglobin (0.5-1.5) % POC ABG HHb (Measured) (0-5) % ABG Methemoglobin (0.0-3.0) % ABG O2 Capacity (16-24) mL/dl ABG Potassium 2.8 L (3.6-5.2) mmol/L Hgb O2 Saturation (95.0-98.0) % Glucose 171 H (75-110) mg/dl Lactate 1.6 (0.7-2.1) mmol/L FiO2 80.0 % Sodium 149.0 H (132-148) mmol/L Potassium (3.6-5.0) mmol/L Chloride 123.0 H (98-107) mmol/L Carbon Dioxide (21-33) mmol/L Anion Gap (10-20) BUN (7-21) mg/dL Creatinine (0.5-1.4) mg/dL Est GFR ( Amer) Est GFR (Non-Af Amer) Random Glucose (70-110) mg/dL Calcium (8.4-10.5) mg/dL Phosphorus (2.5-4.5) mg/dL Magnesium (1.7-2.2) mg/dL Total Bilirubin (0.2-1.3) mg/dL AST (15-59) U/L ALT (7-56) U/L Alkaline Phosphatase (38-133) U/L Troponin I 0.08 D ng/mL NT-Pro-B Natriuret Pep (0-450) pg/mL Total Protein (5.8-8.3) g/dL Albumin (3.0-4.8) g/dL Globulin gm/dL Albumin/Globulin Ratio (1.1-1.8) Procalcitonin 34.76 H (0.19-0.49) NG/ML Arterial Blood Potassium 2.8 L (3.6-5.2) mmol/L Laboratory Results - last 24 hr 06/11/16 06/11/16 06/11/16 06:30 08:20 12:45 WBC RBC Hgb Hct MCV MCH MCHC RDW Plt Count MPV Gran % Lymph % (Auto) [place] % (Auto) Eos % (Auto) Baso % (Auto) Gran # Lymph # [place] # Eos # Baso # pCO2 28 L pO2 95.0 HCO3 22.9 ABG pH 7.52 H ABG Total CO2 23.8 ABG O2 Saturation 97.6 ABG O2 Content ABG Base Excess 1.1 ABG Hemoglobin ABG Carboxyhemoglobin POC ABG HHb (Measured) ABG Methemoglobin ABG O2 Capacity ABG Potassium 2.8 L Hgb O2 Saturation Sodium 149.0 H Chloride 123.0 H Glucose 171 H Lactate 1.6 FiO2 80.0 Potassium Carbon Dioxide Anion Gap BUN Creatinine Est GFR ( Amer) Est GFR (Non-Af Amer) Random Glucose Calcium Phosphorus Magnesium Total Bilirubin AST ALT Alkaline Phosphatase Troponin I 0.08 D NT-Pro-B Natriuret Pep Total Protein Albumin Globulin Albumin/Globulin Ratio Procalcitonin 34.76 H Arterial Blood Potassium 2.8 L 06/11/16 06/12/16 06/12/16 17:10 06:00 07:00 WBC 6.6 RBC 2.96 L Hgb 9.4 L Hct 27.1 L MCV 91.6 MCH 31.8 MCHC 34.7 RDW 15.0 H Plt Count 53 L MPV 12.0 H Gran % 86.7 H Lymph % (Auto) 5.6 L [place] % (Auto) 6.4 H Eos % (Auto) 1.1 L Baso % (Auto) 0.2 Gran # 5.72 Lymph # 0.4 L [place] # 0.4 Eos # 0.1 Baso # 0.01 pCO2 37 pO2 72.0 L HCO3 25.7 ABG pH 7.45 ABG Total CO2 26.8 ABG O2 Saturation 96.2 ABG O2 Content 15.7 ABG Base Excess 1.8 ABG Hemoglobin 12.0 ABG Carboxyhemoglobin 2.4 H POC ABG HHb (Measured) 3.7 ABG Methemoglobin 0.9 ABG O2 Capacity 16.3 ABG Potassium Hgb O2 Saturation 93.0 L Sodium 148 150 H Chloride 113 H 115 H Glucose Lactate FiO2 80.0 Potassium 3.8 3.7 Carbon Dioxide 24 26 Anion Gap 15 13 BUN 23 H 26 H Creatinine 0.8 0.7 Est GFR ( Amer) > 60 > 60 Est GFR (Non-Af Amer) > 60 > 60 Random Glucose 156 H 144 H Calcium 7.9 L 8.1 L Phosphorus 1.8 L Magnesium 2.3 H Total Bilirubin 10.9 H 9.0 H AST 58 56 ALT 72 H 66 H Alkaline Phosphatase 129 127 Troponin I NT-Pro-B Natriuret Pep 23359 H Total Protein 5.1 L 5.0 L Albumin 2.8 L 2.7 L Globulin 2.3 2.3 Albumin/Globulin Ratio 1.2 1.2 Procalcitonin Arterial Blood Potassium Review of Systems - Constitutional Constitutional: absent: Fever, Chills, Sweats, Weakness - EENT Eyes: UNREMARKABLE Ears: UNREMARKABLE Nose/Mouth/Throat: UNREMARKABLE - Cardiovascular Cardiovascular: UNREMARKABLE - Respiratory Respiratory: Dyspnea. absent: Hemoptysis Critical Care Progress Note - Ventilator Checklist Head of Bed 30 Degrees: Yes Daily Sedation Vacation: No - Nutrition Nutrition: Nutrition Category Date Time Status NPO Diet [DIET] Diets 03/18/17 Dinner Ordered Assessment/Plan - Assessment and Plan (Free Text) Assessment: 75 yo M w h/o SBO, MDS, gastritis, Alzheimer's dementia Septic shcok 2/2 bacteremia and cholangitis POD 5 s/p cholecystostomy tube POD 2 s/p ERCP w stent Plan: Neuro: Mental status at baseline, h/o Alzheimer's dementia Maintain normothermia Tylenol PRN Fentanyl PRN CV: DC vasopressors maintain MAP>65 f/u swan cath today Pulm: Respiratory Failure: On high flow NC at 75% FiO2 Maintain SpO2>90, PaO2>60 HOB>35 degrees Aspiration precautions Duoneb Mucolytic GI: POD #5 s/p percutaneous cholecystostomy tube by IR. Output was bloody and purulent. Patient will keep tube for 4-6 weeks with BID flushes unless the gallbladder gets surgically removed earlier, as per IR recs POD 3 s/p ERCP stent remove stent in [address] A/P without contrast shows distended gallbladder with evidence of gallbladder wall thickening/mild pericholecystic fluid, no calcified gallstones , constipation, scattered prominent retroperitoneal and mesenteric LNs, mild mesenteric inflammatory stranding. Continue Meropenem HIDA: GB and SB unvisualized in 4 hrs Pepcid /Zofran /NPO f/u Swallow eval Surgery following: No immediate surgical intervention at this time. GI following Trend T-bili: trending down 11 today Endo: Maintain euglycemia 140-180 Renal: Cr: 0.7. Urine output 4L/24hrs (-3L fluid balance) Continue to monitor renal function, I&Os Maintain - fluid balance ID: Septic shock 2/2 acute cholecystitis v cholangitis : Improving No leukocytosis: 6.6K Afebrile Blood cultures significant for e-coli in 2 of 2 bottles Continue Meropenem ID following Preliminary urine culture shows no growth Tylenol for fever PRN Heme: Hb stable. No signs of bleeding. Continue to monitor. DVT/GI ppx: Pepcid, SCD PT/OT DW ICU attending <Steve Varela - Last Filed: 06/12/16 11:32> CCU Objective - Vital Signs / Intake & Output Vital Signs (Last 4 hours): Vital Signs Temp Pulse Resp BP Pulse Ox 06/12/16 10:00 53 L 06/12/16 09:00 54 L 30 H 120/67 94 L 06/12/16 08:32 114/65 06/12/16 08:00 56 L 24 136/66 96 06/12/16 07:59 99.7 F H 68 24 116/62 95 06/12/16 07:29 28 H Intake and Output (Last 8hrs): Intake & Output 06/11/16 06/12/16 06/12/16 22:59 06:59 14:59 Intake Total 998 388 Output Total 3610 530 Balance -2612 -142 Intake: IV 878 358 Right Internal Jugular 50 IVF 50 Saline bolus 0 Precedex 0 Antibiotic 100 200 Levophed 20 K-rider 600 Vasopressin 108 108 Oral 120 30 Output: Drainage 50 30 Right Upper Abdomen 50 30 Urine 3360 500 Urethral (Tong) 3360 500 Other 200 Other: Voiding Method Indwelling Catheter Indwelling Catheter # Bowel Movements 0 0 - Medications Active Medications: Active Medications Generic Name Dose Route Start Last Admin Trade Name Freq PRN Reason Stop Dose Admin Acetaminophen 650 mg 06/06/16 15:35 06/07/16 19:27 Tylenol 325mg Tab PO 650 mg Q8 PRN Administration Fever >100.4 F Acetylcysteine 4 ml 06/12/16 08:00 06/12/16 07:25 Acetylcysteine 20% IH 4 ml [id number] YOLANDA Administration Albuterol/Ipratropium 3 ml 06/11/16 07:01 Duoneb 3 Mg/0.5 Mg (3 Ml) Ud IH Q2H PRN Shortness of Breath Albuterol/Ipratropium 3 ml 06/11/16 08:00 06/12/16 07:25 Duoneb 3 Mg/0.5 Mg (3 Ml) Ud IH 3 ml [id number] YOLANDA Administration Famotidine 20 mg 06/08/16 10:00 06/12/16 09:33 Pepcid IVP 20 mg DAILY YOLANDA Administration Fentanyl 75 mcg 06/07/16 11:36 Fentanyl IVP Q1 PRN Pain, moderate (4-7) Furosemide 40 mg 06/12/16 10:00 Lasix IVP 06/12/16 23:59 Q12 YOLANDA Furosemide 40 mg 06/13/16 10:00 Lasix IVP DAILY YOLANDA Vasopressin 20 units/ Sodium 101 mls @ 9.09 mls/hr 06/06/16 21:30 06/12/16 01: 25 Chloride IV 9.09 mls/hr .Q11H7M YOLANDA Administration Protocol 0.03 U/MIN MEROPENEM-0.9% SODIUM CHLORIDE 100 mls @ 100 mls/hr 06/09/16 09:24 06/12/16 05: 13 Meropenem 1g/Ns 100ml Ivpb IVPB 06/15/16 13:01 100 mls/hr Q8 YOLANDA Administration Protocol Norepinephrine Bitartrate 8 mg 258 mls @ 7.74 mls/hr 06/10/16 10:39 06/10/16 13 :30 / Sodium Chloride IV 2 mcg/min .Q24H PRN Titration TITRATE PER MD ORDER Protocol 4 MCG/MIN Midodrine 10 mg 06/10/16 19:30 06/12/16 09:33 Proamatine PO 10 mg TID YOLANDA Administration Ondansetron HCl 4 mg 06/11/16 17:21 06/11/16 17:35 Zofran Inj IVP 4 mg Q6H PRN Administration Nausea/Vomiting - Patient Studies Lab Studies: Microbiology Studies 06/09/16 08:45 Blood Culture - Preliminary Blood-Venous NO GROWTH AFTER 3 DAYS 06/09/16 08:40 Blood Culture - Preliminary Blood-Venous NO GROWTH AFTER 3 DAYS 06/08/16 08:30 Blood Culture - Preliminary Blood-Venous NO GROWTH AFTER 4 DAYS 06/08/16 08:30 Blood Culture - Preliminary Blood-Venous NO GROWTH AFTER 4 DAYS Lab Studies 06/12/16 06/12/16 06/11/16 Range/Units 07:00 06:00 17:10 WBC 6.6 (4.5-11.0) 10^3/ul RBC 2.96 L (3.5-6.1) 10^6/uL Hgb 9.4 L (14.0-18.0) gm/dL Hct 27.1 L (42.0-52.0) % MCV 91.6 (80.0-105.0) fL MCH 31.8 (25.0-35.0) pg MCHC 34.7 (31.0-37.0) g/dl RDW 15.0 H (11.5-14.5) % Plt Count 53 L (120.0-450.0) 10^3/uL MPV 12.0 H (7.0-11.0) fl Gran % 86.7 H (50.0-68.0) % Lymph % (Auto) 5.6 L (22.0-35.0) % [place] % (Auto) 6.4 H (1.0-6.0) % Eos % (Auto) 1.1 L (1.5-5.0) % Baso % (Auto) 0.2 (0.0-3.0) % Gran # 5.72 (1.4-6.5) Lymph # 0.4 L (1.2-3.4) [place] # 0.4 (0.1-0.6) Eos # 0.1 (0.0-0.7) Baso # 0.01 (0.0-2.0) K/mm3 pCO2 37 (35-45) mm/Hg pO2 72.0 L (80-100) mm/Hg HCO3 25.7 (21-28) mmol/L ABG pH 7.45 (7.35-7.45) ABG Total CO2 26.8 (22-28) mmol.L ABG O2 Saturation 96.2 (95-98) % ABG O2 Content 15.7 (15-23) ML/dl ABG Base Excess 1.8 (-2.0-3.0) mmol/L ABG Hemoglobin 12.0 (11.7-17.4) g/dL ABG Carboxyhemoglobin 2.4 H (0.5-1.5) % POC ABG HHb (Measured) 3.7 (0-5) % ABG Methemoglobin 0.9 (0.0-3.0) % ABG O2 Capacity 16.3 (16-24) mL/dl Hgb O2 Saturation 93.0 L (95.0-98.0) % FiO2 80.0 % Sodium 150 H 148 (132-148) mmol/L Potassium 3.7 3.8 (3.6-5.0) mmol/L Chloride 115 H 113 H (98-107) mmol/L Carbon Dioxide 26 24 (21-33) mmol/L Anion Gap 13 15 (10-20) BUN 26 H 23 H (7-21) mg/dL Creatinine 0.7 0.8 (0.5-1.4) mg/dL Est GFR ( Amer) > 60 > 60 Est GFR (Non-Af Amer) > 60 > 60 Random Glucose 144 H 156 H (70-110) mg/dL Calcium 8.1 L 7.9 L (8.4-10.5) mg/dL Phosphorus 1.8 L (2.5-4.5) mg/dL Magnesium 2.3 H (1.7-2.2) mg/dL Total Bilirubin 9.0 H 10.9 H (0.2-1.3) mg/dL AST 56 58 (15-59) U/L ALT 66 H 72 H (7-56) U/L Alkaline Phosphatase 127 129 (38-133) U/L Troponin I ng/mL NT-Pro-B Natriuret Pep 13385 H (0-450) pg/mL Total Protein 5.0 L 5.1 L (5.8-8.3) g/dL Albumin 2.7 L 2.8 L (3.0-4.8) g/dL Globulin 2.3 2.3 gm/dL Albumin/Globulin Ratio 1.2 1.2 (1.1-1.8) Procalcitonin (0.19-0.49) NG/ML 06/11/16 06/11/16 Range/Units 12:45 06:30 WBC (4.5-11.0) 10^3/ul RBC (3.5-6.1) 10^6/uL Hgb (14.0-18.0) gm/dL Hct (42.0-52.0) % MCV (80.0-105.0) fL MCH (25.0-35.0) pg MCHC (31.0-37.0) g/dl RDW (11.5-14.5) % Plt Count (120.0-450.0) 10^3/uL MPV (7.0-11.0) fl Gran % (50.0-68.0) % Lymph % (Auto) (22.0-35.0) % [place] % (Auto) (1.0-6.0) % Eos % (Auto) (1.5-5.0) % Baso % (Auto) (0.0-3.0) % Gran # (1.4-6.5) Lymph # (1.2-3.4) [place] # (0.1-0.6) Eos # (0.0-0.7) Baso # (0.0-2.0) K/mm3 pCO2 (35-45) mm/Hg pO2 (80-100) mm/Hg HCO3 (21-28) mmol/L ABG pH (7.35-7.45) ABG Total CO2 (22-28) mmol.L ABG O2 Saturation (95-98) % ABG O2 Content (15-23) ML/dl ABG Base Excess (-2.0-3.0) mmol/L ABG Hemoglobin (11.7-17.4) g/dL ABG Carboxyhemoglobin (0.5-1.5) % POC ABG HHb (Measured) (0-5) % ABG Methemoglobin (0.0-3.0) % ABG O2 Capacity (16-24) mL/dl Hgb O2 Saturation (95.0-98.0) % FiO2 % Sodium (132-148) mmol/L Potassium (3.6-5.0) mmol/L Chloride (98-107) mmol/L Carbon Dioxide (21-33) mmol/L Anion Gap (10-20) BUN (7-21) mg/dL Creatinine (0.5-1.4) mg/dL Est GFR ( Amer) Est GFR (Non-Af Amer) Random Glucose (70-110) mg/dL Calcium (8.4-10.5) mg/dL Phosphorus (2.5-4.5) mg/dL Magnesium (1.7-2.2) mg/dL Total Bilirubin (0.2-1.3) mg/dL AST (15-59) U/L ALT (7-56) U/L Alkaline Phosphatase (38-133) U/L Troponin I 0.08 D ng/mL NT-Pro-B Natriuret Pep (0-450) pg/mL Total Protein (5.8-8.3) g/dL Albumin (3.0-4.8) g/dL Globulin gm/dL Albumin/Globulin Ratio (1.1-1.8) Procalcitonin 34.76 H (0.19-0.49) NG/ML Laboratory Results - last 24 hr 06/11/16 06/11/16 06/11/16 06:30 12:45 17:10 WBC RBC Hgb Hct MCV MCH MCHC RDW Plt Count MPV Gran % Lymph % (Auto) [place] % (Auto) Eos % (Auto) Baso % (Auto) Gran # Lymph # [place] # Eos # Baso # pCO2 pO2 HCO3 ABG pH ABG Total CO2 ABG O2 Saturation ABG O2 Content ABG Base Excess ABG Hemoglobin ABG Carboxyhemoglobin POC ABG HHb (Measured) ABG Methemoglobin ABG O2 Capacity Hgb O2 Saturation FiO2 Sodium 148 Potassium 3.8 Chloride 113 H Carbon Dioxide 24 Anion Gap 15 BUN 23 H Creatinine 0.8 Est GFR ( Amer) > 60 Est GFR (Non-Af Amer) > 60 Random Glucose 156 H Calcium 7.9 L Phosphorus Magnesium Total Bilirubin 10.9 H AST 58 ALT 72 H Alkaline Phosphatase 129 Troponin I 0.08 D NT-Pro-B Natriuret Pep Total Protein 5.1 L Albumin 2.8 L Globulin 2.3 Albumin/Globulin Ratio 1.2 Procalcitonin 34.76 H 06/12/16 06/12/16 06:00 07:00 WBC 6.6 RBC 2.96 L Hgb 9.4 L Hct 27.1 L MCV 91.6 MCH 31.8 MCHC 34.7 RDW 15.0 H Plt Count 53 L MPV 12.0 H Gran % 86.7 H Lymph % (Auto) 5.6 L [place] % (Auto) 6.4 H Eos % (Auto) 1.1 L Baso % (Auto) 0.2 Gran # 5.72 Lymph # 0.4 L [place] # 0.4 Eos # 0.1 Baso # 0.01 pCO2 37 pO2 72.0 L HCO3 25.7 ABG pH 7.45 ABG Total CO2 26.8 ABG O2 Saturation 96.2 ABG O2 Content 15.7 ABG Base Excess 1.8 ABG Hemoglobin 12.0 ABG Carboxyhemoglobin 2.4 H POC ABG HHb (Measured) 3.7 ABG Methemoglobin 0.9 ABG O2 Capacity 16.3 Hgb O2 Saturation 93.0 L FiO2 80.0 Sodium 150 H Potassium 3.7 Chloride 115 H Carbon Dioxide 26 Anion Gap 13 BUN 26 H Creatinine 0.7 Est GFR ( Amer) > 60 Est GFR (Non-Af Amer) > 60 Random Glucose 144 H Calcium 8.1 L Phosphorus 1.8 L Magnesium 2.3 H Total Bilirubin 9.0 H AST 56 ALT 66 H Alkaline Phosphatase 127 Troponin I NT-Pro-B Natriuret Pep 70512 H Total Protein 5.0 L Albumin 2.7 L Globulin 2.3 Albumin/Globulin Ratio 1.2 Procalcitonin Critical Care Progress Note - Nutrition Nutrition: Nutrition Category Date Time Status NPO Diet [DIET] Diets 06/06/16 Dinner Ordered Attending/Attestation - Attestation I have personally seen and examined this patient.: Yes I have fully participated in the care of the patient.: Yes I have reviewed all pertinent clinical information: Yes Notes (Text): 06/12/16 11:28 The patient was seen and examined at the bedside. Patient care was discussed with resident Medical records, lab studies, and imaging were reviewed and management issues were discussed and formulated. Last 24H events reviewed. Agree with above treatment plans as outlined in 's note with addition of the following: -hemodynamic monitoring to maintain MAP>65 -will d\c vasopressin as B\P remains stable; off levophed > 24hrs -cardiology team following closely -o2 supplementation to maintain Spo2 >90 Pao2>60; currently on high-flow nasal cannula -ABG in AM reviewed -CXR reviewed and multifocal infiltrated noted suspicious for PNA; R>L -continue broad spectrum Abx as per ID team ; f\u cultures -f\u Bun\Cr and U\o; hold diuresis today -monitor and replace e-lites -dysphagia eval and aspiration precautions -consider heme\onc eval for thrombocytopenia -PT\OT eval -DVT \ PUD prophylaxis CCM f\u 35min
--- NOTE | 2016-06-12 09:26 | CP.PCM.PN ---
Subjective - Date & Time of Evaluation Date of Evaluation: 06/12/16 Time of Evaluation: 07:40 - Subjective Subjective: Patient continues to be off the ventilator but still on vasopressors. Afebrile overnight, still with some abdominal pain but no nausea currently. Objective - Vital Signs/Intake and Output Vital Signs (last 24 hours): Temp Pulse Resp BP Pulse Ox 98.3 F 57 L 28 H 116/62 93 L 06/12/16 04:00 06/12/16 07:15 06/12/16 07:29 06/12/16 06:00 06/12/16 06:00 Intake and Output: 06/12/16 06/12/16 06:59 18:59 Intake Total 388 Output Total 530 Balance -142 - Medications Medications: Current Medications Acetaminophen (Tylenol 325mg Tab) 650 mg PO Q8 PRN PRN Reason: Fever >100.4 F Last Admin: 06/07/16 19:27 Dose: 650 mg Acetylcysteine (Acetylcysteine 20%) 4 ml IH [id number] [facility] Last Admin: 06/12/16 07:25 Dose: 4 ml Albuterol/Ipratropium (Duoneb 3 Mg/0.5 Mg (3 Ml) Ud) 3 ml IH Q2H PRN PRN Reason: Shortness of Breath Albuterol/Ipratropium (Duoneb 3 Mg/0.5 Mg (3 Ml) Ud) 3 ml IH [id number] [facility] Last Admin: 06/12/16 07:25 Dose: 3 ml Famotidine (Pepcid) 20 mg IVP DAILY [facility] Last Admin: 06/11/16 10:13 Dose: 20 mg Fentanyl (Fentanyl) 75 mcg IVP Q1 PRN PRN Reason: Pain, moderate (4-7) Furosemide (Lasix) 40 mg IVP DAILY [facility] Vasopressin 20 units/ Sodium (Chloride) 101 mls @ 9.09 mls/hr IV .Q11H7M YOLANDA; 0.03 U/MIN PRN Reason: Protocol Last Admin: 06/12/16 01:25 Dose: 9.09 mls/hr MEROPENEM-0.9% SODIUM CHLORIDE (Meropenem 1g/Ns 100ml Ivpb) 100 mls @ 100 mls/ hr IVPB Q8 YOLANDA PRN Reason: Protocol Stop: 06/15/16 13:01 Last Admin: 06/12/16 05:13 Dose: 100 mls/hr Norepinephrine Bitartrate 8 mg (/ Sodium Chloride) 258 mls @ 7.74 mls/hr IV .Q24H PRN; Protocol; 4 MCG/MIN PRN Reason: TITRATE PER MD ORDER Last Titration: 06/10/16 13:30 Dose: 2 mcg/min Midodrine (Proamatine) 10 mg PO TID YOLANDA Last Admin: 06/11/16 17:09 Dose: 10 mg Ondansetron HCl (Zofran Inj) 4 mg IVP Q6H PRN PRN Reason: Nausea/Vomiting Last Admin: 06/11/16 17:35 Dose: 4 mg - Labs Labs: 06/12/16 06:00 06/12/16 06:00 PT 12.0 Seconds (9.9-11.8) H 06/09/16 06:46 INR 1.11 (0.93-1.08) H 06/09/16 06:46 APTT 31.2 Seconds (23.7-30.8) H 06/09/16 06:46 - Constitutional Appears: No Acute Distress - Head Exam Head Exam: NORMAL INSPECTION - ENT Exam ENT Exam: Mucous Membranes Moist - Neck Exam Neck Exam: absent: Lymphadenopathy, Meningismus - Respiratory Exam Respiratory Exam: Decreased Breath Sounds - Cardiovascular Exam Cardiovascular Exam: +S1, +S2 - GI/Abdominal Exam GI & Abdominal Exam: Soft. absent: Tenderness Additional comments: right upper quadrant abdominal drain in place Assessment and Plan - Assessment and Plan (Free Text) Plan: Assessment Septic shock S/P ventilator-dependent respiratory failure and acute renal failure from ESBL-producing multidrug resistant E. coli bacteremia probably from biliary tree infection (ascending cholangitis or acute cholecystitis) S/P abdominal drain placement into the biliary tree POD #5, S/P ERCP with biliary stent placement POD #3; patient is slowly improving clinically Alzheimer's dementia history of hemolytic anemia prostate CA history of depression history of bowel obstruction history of E. coli bacteremia and sepsis probably biliary tree in origin History of Klebsiella UTI Plan Continue Meropenem (day 6); repeat blood cx, urine cx are negative; repeat CXR only showed bibasilar ateactasis will continue to continue to monitor clinically, trend WBC count and trend fever curve; Surgery currently has no plans for procedures Overall prognosis is poor
--- NOTE | 2016-06-12 09:55 | PN ---
DATE: 06/12/2016(615am--705am) SUBJECTIVE: The patient remains moderately short of breath. He is not in acute distress. He is less short of breath -- compared to yesterday morning. PHYSICAL EXAMINATION: VITAL SIGNS: Temperature is 98.3, pulse 64, respirations 28/30, blood pressure 118/64. Oxygen saturation on high flow delivery/80% -- 96%. HEENT: Normocephalic, atraumatic. No JVD. CARDIOVASCULAR: Positive S1, S2. No S3. LUNGS: Decreased breath sounds at the bases. Less rhonchi. No wheezing. EXTREMITIES: Positive for mild edema. No cyanosis. No clubbing. Calves are nontender to palpation. GASTROINTESTINAL: Abdomen is soft. It remains mildly distended and tender to palpation. Bowel sounds are still decreased. SKIN: No acute rash. NEUROLOGIC: Limited at the present time. PERTINENT LABORATORY DATA: Chest x-ray was done this morning and reviewed. There is still infiltrate/atelectasis noted in the right middle lobe and right lower lobes. There are also new infiltrates noted in the left lower lobe. There are also increased pulmonary vascular congestive changes noted. Arterial blood gas was ordered for the morning -- not done yet. Repeat a.m. labs -- pending. IMPRESSION: 1. Respiratory failure. 2. Infiltrates/atelectasis -- now bilaterally. 3. Septic shock. 4. Ascending cholangitis. 5. Acute cholecystitis. 6. Mild anemia. 7. Severe thrombocytopenia. 8. Increased liver function enzymes. PLAN: The patient remains off the ventilator. He is moderately short of breath , but in no acute distress. As above, he is somewhat less short of breath -- compared to yesterday morning. I did discuss the case with the night nurse at length. The night nurse stated that the patient had a pretty good night, but remains critically ill. I did review the x-ray as above. The x-ray now reveals bilateral lower lobe infiltrates. There is also a definite increase in pulmonary vascular congestive changes. I have ordered a stat B-type natriuretic peptide to be done. I will be called with those results. Repeat a.m. labs are pending. This morning's arterial blood gas is also pending. I did discuss the case with the respiratory therapist at length this morning. We will continue with suctioning and chest percussion therapy. The patient also remains on DuoNebs and Mucomyst every 6 hours. Surgical and GI evaluations are noted. The patient remains critically ill with overall poor status/prognosis. I will discuss the above with the entire ICU team in the next few moments. I will also discuss the above with Dr. Nicholson later this morning. Medardo Whittaker MD cc: [phone] TT: 06/12/2016 09:54:32 Confirmation # [id number] Dictation # [id number] tn MTDD
--- NOTE | 2016-06-12 10:04 | PN ---
DATE: 06/12/2016 I see him in the intensive care unit. He is on high flow nasal oxygen. He is alert and talking. He tells me he is not short of breath, but he is short of breath. That comes from his dementia. He troncoso s also trace edema of the legs. I am going to give him Lasix 40 mg IV and make it daily. I think he has a little CHF besides all his respiratory issues. I am going to call in Janusz Landry, the [facility], to give us his evaluation. He seems fluid overloaded to me. PHYSICAL EXAMINATION: VITAL SIGNS: He has a 98.3 temperature, 56 pulse, 119/61 blood pressure, 26 respiratory rate, 97% O2 sat on high flow oxygen nasally. HEENT: His head is atraumatic, normocephalic. GENERAL: He is talking. He is alert. SKIN: He has got some skin irritations on the lips and nose. HEART: Regular rate. LUNGS: Decreased breath sounds, but fairly clear. ABDOMEN: Soft. EXTREMITIES: Trace edema. He is on acetylcysteine, DuoNeb, fentanyl, Merrem, norepinephrine, Pepcid, ProAmatine, Tylenol, vasop ressin, Zofran. LABORATORIES: He has a 150 sodium, potassium 3.7, BUN 26, creatinine 0.7, GFR is greater than 60, barrera gar is 144, calcium is 8.1, phosphorus is 1.8, magnesium is 2.3, total bilirubin is 9, coming down ni fatuma, AST is 56, coming down, ALT is 66, coming down, alkaline phosphatase 127, coming down. His BNP is 10,600 which goes along with his CHF picture. White count 6.6, which is great, the best it has b een. He is on antibiotics for his sepsis. Hemoglobin is 9.4, hematocrit 27.1, platelets up to 53. He seems to be improving in all areas. He is being seen by infectious disease, GI, cereal supervisor, pul monary. I am going to call in Dr. Landry, the business reporter. I will put him on Lasix 40. I want him t o have physical therapy when he is more stable, get him out of bed to chair when I can. Continue wit h intensive care unit treatment. He is here for multiple problems. He has sepsis, respiratory failure, probably congestive heart fail ure, gallbladder infection with a pigtail stent. Sean Nicholson DO cc: [id number] TT: 06/12/2016 10:04:17 Confirmation # [id number] Dictation # [id number] en
--- NOTE | 2016-06-12 10:17 | RAD ---
PROCEDURE: Chest portable HISTORY: follow up COMPARISON: Multiple serial examinations preceding the most recent study: June 11, 2016. 15:52. TECHNIQUE: Technique: Single view portable semi erect @ 05:17. FINDINGS: Stable multifocal infiltrates/pulmonary edema. Venous access catheter in stable, satisfactory position. New line Incidental finding(s): Pigtail catheter right upper quadrant again identified. IMPRESSION: No significant interval change compared to the prior examination(s).
--- NOTE | 2016-06-12 11:30 | CON ---
DATE: 06/12/2016 HISTORY OF PRESENT ILLNESS: The patient is a 75-year-old male who has had a protracted hospital cour se, who presents with dyspnea with elevated proBNP consistent with CHF. PAST MEDICAL HISTORY: Difficult to obtain given issues related to the computer system at this time. However, his past medical history includes a cardiac evaluation with an echocardiogram in 02/2016, wh ich shows good LV function with mild pulmonary hypertension. In addition, the patient, during this hospitalization, has been treated for acute cholecystitis with ascending cholangitis as well as respiratory failure with perhaps a right middle lobe pneumonia versu s atelectasis. There is no previous cardiac issue noted. In addition, the patient has been suffering from sepsis. PHYSICAL EXAMINATION: VITAL SIGNS: The blood pressure is 116 systolic. The patient's temperature is 99.7, pulse is in the 60s. NECK: Negative JVD. LUNGS: Decreased breath sounds bilaterally. HEART: Reveals S1, S2. EXTREMITIES: Without edema. EKG shows no acute changes. LABORATORIES: Hemoglobin is 9.4, white count is 6.6, the platelet count is 53,000. BUN and creatini ne is . The creatinine is 0.04. The troponin is 0.08 with a proBNP of . IMPRESSION: 1. Sepsis. 2. Congestive heart failure. 3. Pneumonia. 4. Hypernatremia. 5. Respiratory compromise. 6. Mild pulmonary hypertension. Given these findings, I agree with Jorge at this time. However, we will repeat an echocardiogram now to reevaluate his left ventricular function and his pulmonary pressures. Janusz Landry MD cc: [phone] TT: 06/12/2016 11:29:57 Confirmation # [id number] Dictation # [id number] en
[2016-06-12] MEDS ORDERED: Lidocaine 2% Inj (20ml) ONE (11:42)
--- NOTE | 2016-06-12 13:20 | CP.PCM.PN ---
Subjective - Date & Time of Evaluation Date of Evaluation: 06/12/16 Time of Evaluation: 13:12 - Subjective Subjective: RFV: Jaundice/Gallstones S: Weaned off pressors completely. Patient alert and responding to questions. Denies abdominal pain. Hasn't eaten anything. No fever. No bleeding. Objective - Vital Signs/Intake and Output Vital Signs (last 24 hours): Temp Pulse Resp BP Pulse Ox 99.6 F 67 20 117/62 95 06/12/16 11:29 06/12/16 12:00 06/12/16 11:29 06/12/16 11:00 06/12/16 11:29 Intake and Output: 06/12/16 06/12/16 06:59 18:59 Intake Total 388 Output Total 530 1999 Balance -142 - Medications Medications: Current Medications Acetaminophen (Tylenol 325mg Tab) 650 mg PO Q8 PRN PRN Reason: Fever >100.4 F Last Admin: 06/07/16 19:27 Dose: 650 mg Acetylcysteine (Acetylcysteine 20%) 4 ml IH [id number] [facility] Last Admin: 06/12/16 07:25 Dose: 4 ml Albuterol/Ipratropium (Duoneb 3 Mg/0.5 Mg (3 Ml) Ud) 3 ml IH Q2H PRN PRN Reason: Shortness of Breath Albuterol/Ipratropium (Duoneb 3 Mg/0.5 Mg (3 Ml) Ud) 3 ml IH [id number] [facility] Last Admin: 06/12/16 07:25 Dose: 3 ml Famotidine (Pepcid) 20 mg IVP DAILY [facility] Last Admin: 06/12/16 09:33 Dose: 20 mg Fentanyl (Fentanyl) 75 mcg IVP Q1 PRN PRN Reason: Pain, moderate (4-7) Furosemide (Lasix) 40 mg IVP Q12 [facility] Stop: 06/12/16 23:59 Furosemide (Lasix) 40 mg IVP DAILY [facility] Vasopressin 20 units/ Sodium (Chloride) 101 mls @ 9.09 mls/hr IV .Q11H7M YOLANDA; 0.03 U/MIN PRN Reason: Protocol Last Admin: 06/12/16 01:25 Dose: 9.09 mls/hr MEROPENEM-0.9% SODIUM CHLORIDE (Meropenem 1g/Ns 100ml Ivpb) 100 mls @ 100 mls/ hr IVPB Q8 YOLANDA PRN Reason: Protocol Stop: 06/15/16 13:01 Last Admin: 06/12/16 05:13 Dose: 100 mls/hr Norepinephrine Bitartrate 8 mg (/ Sodium Chloride) 258 mls @ 7.74 mls/hr IV .Q24H PRN; Protocol; 4 MCG/MIN PRN Reason: TITRATE PER MD ORDER Last Titration: 06/10/16 13:30 Dose: 2 mcg/min Midodrine (Proamatine) 10 mg PO TID YOLANDA Last Admin: 06/12/16 09:33 Dose: 10 mg Ondansetron HCl (Zofran Inj) 4 mg IVP Q6H PRN PRN Reason: Nausea/Vomiting Last Admin: 06/11/16 17:35 Dose: 4 mg - Labs Labs: 06/12/16 06:00 06/12/16 06:00 PT 12.0 Seconds (9.9-11.8) H 06/09/16 06:46 INR 1.11 (0.93-1.08) H 06/09/16 06:46 APTT 31.2 Seconds (23.7-30.8) H 06/09/16 06:46 - Constitutional Appears: No Acute Distress, Chronically Ill - Head Exam Head Exam: ATRAUMATIC, NORMOCEPHALIC - Eye Exam Eye Exam: Scleral icterus - Respiratory Exam Additional comments: Labored breathing, on high flow oxygen - Cardiovascular Exam Cardiovascular Exam: +S1, +S2 - GI/Abdominal Exam GI & Abdominal Exam: Soft. absent: Distended, Guarding, Tenderness - Neurological Exam Neurological Exam: Alert, Awake - Skin Skin Exam: Dry, Warm Additional comments: jaundice Assessment and Plan - Assessment and Plan (Free Text) Assessment: 75 year old male with h/o prostate cancer s/p brachytherapy, MDS, alzheimer's dementia, SCC of nose admitted with septic shock 2/2 acute cholecystitis s/p per rosalind drain, respiratory failure requiring mechanical ventilation, now extubated, choledocholitahisis s/p ERCP with stent placement, jaundice. 1. Choledocholithiasis 2. Jaundice 3. Cholecystitis Plan: -S/P ERCP with CBD stent placement -lfts improving daily -jaundice may be 2/2 biliary obstruction or hepatocellular disease -check IGG4, CMV -if jaundice doesn't resolve, then would recommend liver biopsy when medically stable -consider starting ursodeoxycholic acid when taking medications by mouth -continue IV antibiotics -will need repeat ERCP in 3 months with stone/stent removal -surgery following, no imminent plans for cholecystectomy -abdominal x ray reviewed, negative for signs of ileus/sbo -ok to advance diet as tolerated
[2016-06-12] MEDS ORDERED: Midazolam 2 MG/2 ML VIAL ONE ×2 (13:30→13:40)
[2016-06-12] MEDS ORDERED: Iohexol 350 MG/100 ML VIAL ONE (13:33)
[2016-06-12] MEDS ORDERED: Sodium Chloride 0.9% 1,000 ML IV SCH (14:30)
--- NOTE | 2016-06-12 14:49 | CARDCATH ---
PROCEDURE DATE: 06/12/2016 HISTORY OF PRESENT ILLNESS: The patient is a 75-year-old male who presents with respiratory distress . The question is whether the patient is suffering from CHF versus pulmonary hypertension versus pneumo lisa. The patient was brought for cardiac catheterization for objective testing. Right and left heart catheterization was performed. The right femoral vein was cannulated with a 7-Macanese sheath. The right femoral artery was cannulate d with a 6-Macanese sheath. There were no complications. The findings on catheterization revealed mild to moderate pulmonary hypertension. The pulmonary capillary wedge pressure was 8 mmHg. LVEDP was 8-10 mmHg. The left ventricle was measured in the GOMES projection. In the GOMES projection, wall motion was preser keily. Estimated ejection fraction is 50%. His coronary anatomy revealed a right dominant circulation. The left main artery revealed a 10%-20% stenosis in its mid portion. The LAD revealed 2 tandem 80% and 90% lesions in the proximal LAD. The circumflex artery revealed a 70% lesion in the mid portion as well as a 90% stenosis in the dista l portion. The obtuse marginal branch revealed a 70% stenosis in its proximal portion. The RCA revealed 2 critical lesions in its proximal portion. Manual compression was used to close the femoral artery site. The patient tolerated the procedure well. In summary, the procedure revealed: 1. Mild to moderate pulmonary hypertension. 2. Normal pulmonary capillary wedge pressure and left ventricular end-diastolic pressure consistent with no evidence for congestive heart failure. 3. Triple vessel coronary artery disease. 4. Preserved left ventricular function. Given these findings, we will discontinue his Lasix. The patient should be treated with IV fluids. We will continue his antibiotics. Once his infection is done, we will discuss with the patient and gene hernandez about the therapeutic options of coronary artery bypass surgery versus multivessel percutaneous transluminal coronary angioplasty. Janusz Landry MD cc: [phone] TT: 06/12/2016 14:49:17 en
--- NOTE | 2016-06-12 18:12 | CARD ---
APPROVED REPORT EXAM: Two-dimensional and M-mode echocardiogram with Doppler and color Doppler. INDICATION LV Function:SystolicDiastolic 2D DIMENSIONS Left Atrium (2D)3.7 (1.6-4.0cm)IVSd0.9 (0.7-1.1cm) LVDd4.8 (3.9-5.9cm)PWd1.0 (0.7-1.1cm) LVDs3.7 (2.5-4.0cm)FS (%) 24.4 % M-Mode DIMENSIONS Aortic Root2.80 (2.2-3.7cm)Aortic Cusp Exc.1.70 (1.5-2.0cm) Aortic Valve AoV Peak Qtvmahac137.0cm/Valdo Peak GR.9mmHg Mitral Valve E/A ratio0.0 TDI E/Lateral E'0.0E/Medial E'0.0 Tricuspid Valve TR Peak [id number] [id number] Peak Gr.46mmHg [id number] LEFT VENTRICLE The left ventricle is normal size. There is normal left ventricular wall thickness. The systolic function is moderately impaired. Septal motion consistent with conduction abnormality. Transmitral Doppler flow pattern is Grade I-abnormal relaxation pattern. RIGHT VENTRICLE The right ventricle is normal size. There is normal right ventricular wall thickness. The right ventricular systolic function is normal. ATRIA The left atrium size is normal. The right atrium size is normal. AORTIC VALVE The aortic valve is mildly sclerotic. There is trace aortic regurgitation. MITRAL VALVE Mitral regurgitation is trace. TRICUSPID VALVE There is moderate pulmonary hypertension. PULMONIC VALVE There is trace pulmonic valvular regurgitation. GREAT VESSELS The IVC is normal in size and collapses >50% with inspiration. PERICARDIAL EFFUSION There is a trace loculated anterior pericardial effusion. <Conclusion> There is normal left ventricular wall thickness. The systolic function is moderately impaired. Septal motion consistent with conduction abnormality. Transmitral Doppler flow pattern is Grade I-abnormal relaxation pattern. There is moderate pulmonary hypertension.
[2016-06-13] MEDS: Albuterol-Ipratrop 3 mg / 0.5 (3 ml) UD IH SCH ×4 (02:45→19:50)
[2016-06-13] MEDS: Acetylcysteine 20% Inhal Soln (4ml) IH SCH ×4 (02:45→19:57)
[2016-06-13 05:26] LABS: HEMATOCRIT 28.9 % (42.0-52.0); MEAN CELL VOLUME 92.9 fL (80.0-105.0); MEAN CORPUSCULAR HEMOGLOBIN 32.2 pg (25.0-35.0); MEAN CORPUSCULAR HGB CONC 34.6 g/dl (31.0-37.0); MEAN PLATELET VOLUME 11.1 fl (7.0-11.0); RED CELL DISTRIBUTION WIDTH 15.3 % (11.5-14.5); WHITE BLOOD COUNT 8.8 10^3/ul (4.5-11.0)
[2016-06-13] MEDS: Meropenem 1g/NS 100mL IVPB 100 ML IVPB SCH ×3 (05:32→21:45)
[2016-06-13 05:40] LABS: ALB/GLOB RATIO 1.1 (1.1-1.8); ALKALINE PHOSPHATASE 130 U/L (38-133); ALT/SGPT 60 U/L (7-56); AST/SGOT 52 U/L (15-59); BILIRUBIN,TOTAL 6.3 mg/dL (0.2-1.3); BLOOD UREA NITROGEN 22 mg/dL (7-21); CARBON DIOXIDE 29 mmol/L (21-33); CHLORIDE 113 mmol/L (98-107); GFR AFRICAN-AMERICAN > 60; GLUCOSE,RANDOM 115 mg/dL (70-110); POTASSIUM 3.2 mmol/L (3.6-5.0); SODIUM 152 mmol/L (132-148); TOTAL PROTEIN 4.9 g/dL (5.8-8.3)
[2016-06-13 05:57] LABS: ARTERIAL BLOOD GAS HCO3 29.2 mmol/L (21-28); ARTERIAL BLOOD GAS O2 CAPACITY 14.2 mL/dl (16-24); ARTERIAL BLOOD GAS O2 CONTENT 14.1 ML/dl (15-23); ARTERIAL BLOOD GAS PH 7.53 (7.35-7.45); CARBOXYHEMOGLOBIN 2.2 % (0.5-1.5); HHB 0.8 % (0-5); METHEMOGLOBIN 0.9 % (0.0-3.0)
--- NOTE | 2016-06-13 07:38 | PN ---
DATE: 06/13/2016(615am--700am) SUBJECTIVE: The patient appears more comfortable this morning. He is mildly to moderately short of breath, but in no acute distress. PHYSICAL EXAMINATION: VITAL SIGNS: Temperature is 98.6, pulse 74, respirations 24/26, blood pressure 149/73. Oxygen saturation on high flow delivery -- 95%. HEENT: Normocephalic, atraumatic. No JVD. CARDIOVASCULAR: Positive S1, S2. No S3. LUNGS: Decreased breath sounds at the bases. Less rhonchi. No wheezing. EXTREMITIES: Mild edema. No cyanosis, no clubbing. Calves are nontender to palpation. GASTROINTESTINAL: Abdomen is soft. It remains mildly distended and mildly tender to palpation. Bowel sounds are somewhat improved. SKIN: No acute rash. NEUROLOGIC: Limited at the present time. PERTINENT LABORATORY DATA: Chest x-ray was done this morning and reviewed. There are still bilateral infiltrates noted with underlying pulmonary edema. However, the right lung infiltrates do appear slightly decreased in size. Arterial blood gas was done on high-flow delivery/55%. Results are: pH 7.53, pCO2 35, pO2 of 98. CBC: White count 9.8, hemoglobin 10.0, hematocrit 28.9, platelets of 84,000. IMPRESSION: 1. Respiratory failure. 2. Infiltrates/atelectasis -- improved. 3. Pulmonary edema. 4. Septic shock. 5. Ascending cholangitis. 6. Acute cholecystitis. 7. Mild anemia. 8. Thrombocytopenia. 9. Triple-vessel coronary artery disease. PLAN: The patient appears more comfortable this morning. He is now mildly to moderately short of breath, but in no acute distress. He does appear more comfortable compared to the last few days. I did discuss the case with the night nurse at length. The night nurse stated that the patient had a pretty good night. I did review the x-ray as above. There is some clearing of the right-sided infiltrates. There remains underlying pulmonary edema. I have also reviewed the arterial blood gas. The arterial blood gas is improved with a decrease in the alveolar arterial gradient. I will continue with the current nebulizer treatments, chest percussion therapy and suctioning. I would continue with the antibiotic coverage as per infectious disease. Temperatures have fully resolved. The leukocytosis has also fully resolved. I will also continue with the aspiration precautions. The patient is status post cardiac catheterization by Dr. Landry. Dr. Landry's input is noted. Dr. Landry does note triple-vessel coronary artery disease, but with normal filling pressures. The diuretics have been discontinued by Dr. Landry. Surgical and GI evaluations are noted. I would also like to see the patient out of bed if possible. The patient remains critically ill with very guarded overall status/prognosis. However, he is certainly improved from a few days ago. I will discuss the above with the entire ICU team in the next few moments. I will also discuss the above with the attending physician later this morning. Medardo Whittaker MD cc: [phone] TT: 06/13/2016 07:37:42 Confirmation # [id number] Dictation # [id number] tn MTDD
[2016-06-13] MEDS: Potassium Chloride 20 mEq 100 ML IVPB SCH ×2 (07:47→09:57)
--- NOTE | 2016-06-13 08:52 | CP.CCUPN ---
CCU Subjective - Physician Review Events Since Last Encounter (Free Text): 06/13/16 08:48 No acute events overnight Remains on HFNC 50% o2 sat < 92% Speaking, aaox 1. CCU Objective - Vital Signs / Intake & Output Vital Signs (Last 4 hours): Vital Signs Temp Pulse Resp BP Pulse Ox 06/13/16 08:05 100.5 F H 75 24 143/81 98 06/13/16 07:30 74 34 H 134/102 H 95 06/13/16 07:15 82 14 145/89 98 06/13/16 07:00 74 27 H 143/81 97 06/13/16 06:45 77 17 148/75 99 06/13/16 06:30 73 18 139/76 83 L 06/13/16 06:15 75 24 133/81 96 06/13/16 06:00 70 18 140/74 88 L 06/13/16 05:47 101 H 26 H 141/89 81 L 06/13/16 05:30 66 28 H 128/77 91 L 06/13/16 05:15 66 23 127/72 86 L 06/13/16 05:00 68 25 H 136/78 91 L Intake and Output (Last 8hrs): Intake & Output 06/12/16 06/13/16 06/13/16 22:59 06:59 14:59 Intake Total 550 1240 Output Total 2180 640 Balance -1630 600 Weight 163 lb Intake: IV 500 1210 Right Internal Jugular 1010 IVF 400 Antibiotic 200 K-Phos 100 Oral 50 30 Output: Drainage 30 40 Right Upper Abdomen 30 40 Urine 2150 600 Urethral (Tong) 2150 600 Other: Voiding Method Indwelling Catheter Indwelling Catheter # Bowel Movements 0 - Physical Exam Head: Positive for: Atraumatic, Normocephalic Pupils: Positive for: PERRL Extroacular Muscles: Positive for: EOMI Conjunctiva: Positive for: Normal Mouth: Positive for: Moist Mucous Membranes Pharnyx: Negative for: ERYTHEMA, EXUDATE, TONSILS ENLARGED Nose (External): Positive for: Other (high flow NC ) Respiratory/Chest: Positive for: Decreased Breath Sounds (RLL base decreased BS) , Other (b/l crackles). Negative for: Respiratory Distress, Accessory Muscle Use Cardiovascular: Positive for: Regular Rate and Rhythm, Normal S1, S2. Negative for: Murmurs Abdomen: Positive for: Other (Miguelina tube in place: SS fluids. Minimal output ). Negative for: Tenderness (rigid surgical abdomen), Distention (Abdomen distended tympanitic and quiet with surgical scar), Normal Bowel Sounds, Rebound , Guarding Back: Positive for: Normal Inspection Upper Extremity: Positive for: Normal Inspection, Edema, Normal ROM. Negative for: Cyanosis Lower Extremity: Positive for: Normal Inspection. Negative for: Edema Neurological: Positive for: GCS=15, CN II-XII Intact, Speech Normal, Motor Func Grossly Intact Skin: Positive for: Warm, Dry, Other (generalized tinea infection ) Psychiatric: Negative for: Alert, Oriented x 3, Normal Insight - Medications Active Medications: Active Medications Generic Name Dose Route Start Last Admin Trade Name Freq PRN Reason Stop Dose Admin Acetaminophen 650 mg 06/06/16 15:35 06/13/16 07:47 Tylenol 325mg Tab PO 650 mg Q8 PRN Administration Fever >100.4 F Acetylcysteine 4 ml 06/12/16 08:00 06/13/16 07:35 Acetylcysteine 20% IH 4 ml [id number] YOLANDA Administration Albuterol/Ipratropium 3 ml 06/11/16 07:01 Duoneb 3 Mg/0.5 Mg (3 Ml) Ud IH Q2H PRN Shortness of Breath Albuterol/Ipratropium 3 ml 06/11/16 08:00 06/13/16 07:35 Duoneb 3 Mg/0.5 Mg (3 Ml) Ud IH 3 ml [id number] YOLANDA Administration Famotidine 20 mg 06/08/16 10:00 06/12/16 09:33 Pepcid IVP 20 mg DAILY YOLANDA Administration Fentanyl 75 mcg 06/07/16 11:36 06/12/16 22:11 Fentanyl IVP 75 mcg Q1 PRN Administration Pain, moderate (4-7) MEROPENEM-0.9% SODIUM CHLORIDE 100 mls @ 100 mls/hr 06/09/16 09:24 06/13/16 05: 32 Meropenem 1g/Ns 100ml Ivpb IVPB 06/15/16 13:01 100 mls/hr Q8 YOLANDA Administration Protocol Potassium Chloride 100 mls @ 50 mls/hr 06/13/16 06:30 06/13/16 07:47 Potassium Chloride 20 Meq/100 Ml IVPB 06/13/16 10:29 50 mls/hr Q2H YOLANDA Administration Midodrine 10 mg 06/10/16 19:30 06/12/16 14:18 Proamatine PO Not Given TID OYLANDA Ondansetron HCl 4 mg 06/11/16 17:21 06/11/16 17:35 Zofran Inj IVP 4 mg Q6H PRN Administration Nausea/Vomiting - Patient Studies Lab Studies: Microbiology Studies 06/09/16 08:45 Blood Culture - Preliminary Blood-Venous NO GROWTH AFTER 4 DAYS 06/09/16 08:40 Blood Culture - Preliminary Blood-Venous NO GROWTH AFTER 4 DAYS 06/08/16 08:30 Blood Culture - Final Blood-Venous NO GROWTH AFTER 5 DAYS Gram Stain - Final TEST NOT PERFORMED 06/08/16 08:30 Blood Culture - Final Blood-Venous NO GROWTH AFTER 5 DAYS Gram Stain - Final TEST NOT PERFORMED Lab Studies 06/13/16 06/13/16 06/12/16 Range/Units 05:45 05:15 06:00 WBC 8.8 D (4.5-11.0) 10^3/ul RBC 3.11 L (3.5-6.1) 10^6/uL Hgb 10.0 L (14.0-18.0) gm/dL Hct 28.9 L (42.0-52.0) % MCV 92.9 (80.0-105.0) fL MCH 32.2 (25.0-35.0) pg MCHC 34.6 (31.0-37.0) g/dl RDW 15.3 H (11.5-14.5) % Plt Count 84 L (120.0-450.0) 10^3/uL Manual Plt Count 65 L* (120-450) K/mm3 MPV 11.1 H (7.0-11.0) fl pCO2 35 (35-45) mm/Hg pO2 98.0 (80-100) mm/Hg HCO3 29.2 H (21-28) mmol/L ABG pH 7.53 H (7.35-7.45) ABG Total CO2 30.3 H (22-28) mmol.L ABG O2 Saturation 99.2 H (95-98) % ABG O2 Content 14.1 L (15-23) ML/dl ABG Base Excess 6.3 H (-2.0-3.0) mmol/L ABG Hemoglobin 10.3 L (11.7-17.4) g/dL ABG Carboxyhemoglobin 2.2 H (0.5-1.5) % POC ABG HHb (Measured) 0.8 (0-5) % ABG Methemoglobin 0.9 (0.0-3.0) % ABG O2 Capacity 14.2 L (16-24) mL/dl Hgb O2 Saturation 96.0 (95.0-98.0) % FiO2 55.0 % Sodium 152 H (132-148) mmol/L Potassium 3.2 L (3.6-5.0) mmol/L Chloride 113 H (98-107) mmol/L Carbon Dioxide 29 (21-33) mmol/L Anion Gap 13 (10-20) BUN 22 H (7-21) mg/dL Creatinine 0.7 (0.5-1.4) mg/dL Est GFR ( Amer) > 60 Est GFR (Non-Af Amer) > 60 Random Glucose 115 H (70-110) mg/dL Calcium 8.0 L (8.4-10.5) mg/dL Total Bilirubin 6.3 H (0.2-1.3) mg/dL AST 52 (15-59) U/L ALT 60 H (7-56) U/L Alkaline Phosphatase 130 (38-133) U/L Total Protein 4.9 L (5.8-8.3) g/dL Albumin 2.6 L (3.0-4.8) g/dL Globulin 2.3 gm/dL Albumin/Globulin Ratio 1.1 (1.1-1.8) Laboratory Results - last 24 hr 06/12/16 06/13/16 06/13/16 06:00 05:15 05:45 WBC 8.8 D RBC 3.11 L Hgb 10.0 L Hct 28.9 L MCV 92.9 MCH 32.2 MCHC 34.6 RDW 15.3 H Plt Count 84 L Manual Plt Count 65 L* MPV 11.1 H pCO2 35 pO2 98.0 HCO3 29.2 H ABG pH 7.53 H ABG Total CO2 30.3 H ABG O2 Saturation 99.2 H ABG O2 Content 14.1 L ABG Base Excess 6.3 H ABG Hemoglobin 10.3 L ABG Carboxyhemoglobin 2.2 H POC ABG HHb (Measured) 0.8 ABG Methemoglobin 0.9 ABG O2 Capacity 14.2 L Hgb O2 Saturation 96.0 FiO2 55.0 Sodium 152 H Potassium 3.2 L Chloride 113 H Carbon Dioxide 29 Anion Gap 13 BUN 22 H Creatinine 0.7 Est GFR ( Amer) > 60 Est GFR (Non-Af Amer) > 60 Random Glucose 115 H Calcium 8.0 L Total Bilirubin 6.3 H AST 52 ALT 60 H Alkaline Phosphatase 130 Total Protein 4.9 L Albumin 2.6 L Globulin 2.3 Albumin/Globulin Ratio 1.1 Critical Care Progress Note - Ventilator Checklist Daily Sedation Vacation: Yes Daily Assessment of Readiness to Wean: Yes PUD Prophalyxis: Yes DVT Prophylaxis: Yes - Nutrition Nutrition: Nutrition Category Date Time Status Liquid Diet [DIET] Diets 06/13/16 Breakfast Ordered Assessment/Plan - Assessment and Plan (Free Text) Assessment: Resolving Septic Shock off all vasopressors Cholangitis s/p ERCP + Stent placement RLL infiltrate w/ Respiratory failure ( hypoxic) on HFNC PVC seen on CXr, RHC performed, Wedge tracing not definitive for fluid overload. will d/w cardiology On ABX for .Coli bactermia - Meropenum w/ ID following Chest PT , OT, PT needed. Could restart diet. Replete electrolytes , HGB<7, Platelets >20K, no bleeding DVT P Heparin sq TID PPI cc time 65 min
--- NOTE | 2016-06-13 09:09 | PN ---
DATE: 06/13/2016 The patient is in the ICU, seen earlier today 128, bed 7. He is awake. He is alert. He remains ext ubated. He has been afebrile. He had an uneventful night last night. PHYSICAL EXAMINATION: VITAL SIGNS: His temperature is 100.5, blood pressure is 140/80, respiratory rate of 24, heart rate is 75. The patient is on high flow oxygen delivery. HEENT: Unremarkable. NECK: Supple. LUNGS: Have decreased breath sounds. HEART: Normal S1, S2. ABDOMEN: Soft, nontender. LABORATORY DATA: Reveals the patient's white count is 8.8, hemoglobin of 10, platelets of 84. Coagu lation is noted. Chemistries reveal the BUN of 22, creatinine of 0.7. Procalcitonin is 34. Urinaly sis is noted. Serology is negative. Microbiology reveals the patient initially had positive blood c ultures for E. coli ESBL in the blood and he also had E. coli ESBL in the bile. The repeat blood cul tures are negative. Dr. Whittaker's note from this morning is noted. Review of the medications reveal s the patient to be on meropenem. Last cultures were on 06/09 which were negative. The patient's las t creatinine 0.7. ASSESSMENT AND PLAN: A 75-year-old male who was admitted with septic shock, respiratory failure, acu te renal failure, extended-spectrum beta-lactamase producing Escherichia coli bacteremia secondary to extended-spectrum beta-lactamase producing Escherichia coli ascending cholangitis and acute cholecys titis, status post abdominal drainage placement into the biliary tree, post-procedure day #6, status post endoscopic retrograde cholangiopancreatography with biliary stent placement, post-procedure day #4. Now, the patient with a new fever and tachycardia and questionable infiltrate. Case discussed w bertha Whittaker in a patient with a history of Alzheimer's dementia, history of hemolytic anemia, pro state cancer, depression, history of bowel obstruction and history of Escherichia coli bacteremia in the past with history of Klebsiella urinary tract infection. We will repeat blood culture, urine cul ture, sputum culture and procalcitonin and add vancomycin and continue the meropenem and we will make further recommendations based on today's chest x-ray and procalcitonin level. May need to have anti fungal therapy if the fever persists. We will follow closely with you. Padilla Goode MD cc: [phone] TT: 06/13/2016 09:08:44 Confirmation # [id number] Dictation # [id number] tn
--- NOTE | 2016-06-13 09:40 | PN ---
DATE: 06/13/2016 SUBJECTIVE: The patient is comfortable in bed, awake, alert, without shortness of breath, without ch est pain. PHYSICAL EXAMINATION: VITAL SIGNS: Blood pressure is 136/73, the heart rate is in the 70s. The patient has a low grade te mperature of 100. NECK: Negative JVD. LUNGS: Without rales. HEART: S1, S2. EXTREMITIES: Without edema. The right groin site is stable. LABORATORY DATA: Hemoglobin is 10, white count is 8.8. BUN and creatinine is 22 and 0.2. IMPRESSION: 1. Triple vessel coronary artery disease. 2. Pneumonia. 3. No evidence for congestive heart failure. 4. Cholecystitis. 5. No evidence for pulmonary edema. 6. Thrombocytopenia. PLAN: Given these findings, the patient is currently being treated with aspirin as well as antibioti cs. Diuretics have been discontinued, instead the patient needs to be hydrated. subQ heparin has been ordered. We will consider beta blockers while the patient is being treated for his infection. Once the infection is better, we will discuss with the family about therapeutic alternatives of multi vessel angioplasty versus coronary artery bypass surgery. Janusz Landry MD cc: [phone] TT: 06/13/2016 09:39:42 Confirmation # [id number] Dictation # [id number] jn
[2016-06-13] MEDS: Vancomycin 1gm in NS 250ml 250 ML IVPB SCH ×2 (09:44→21:45)
[2016-06-13 09:56] LABS: PH,URINE 6.5 (4.7-8.0); URINE BILIRUBIN MODERATE (NEGATIVE); URINE BLOOD SMALL (NEGATIVE); URINE GLUCOSE (UA) NEGATIVE (NEGATIVE); URINE KETONE 40 mg/dL (NEGATIVE); URINE LEUKOCYTE ESTERASE NEGATIVE Leu/uL (NEGATIVE); URINE PROTEIN 30 mg/dL (<30 mg/dL)
[2016-06-13 09:57] LABS: URINE APPEARANCE SLIGHT-CLOUDY (CLEAR); URINE COLOR DARK YELLOW (YELLOW)
[2016-06-13 10:00] LABS: URINE EPITHELIAL CELLS 0 - 2 /hpf (0-5); URINE WBC 0 - 2 /hpf (0-6)
[2016-06-13 10:01] LABS: URINE BACTERIA RARE (NEG)
--- NOTE | 2016-06-13 12:00 | RAD ---
HISTORY: f/u COMPARISON: 06/11/2016 FINDINGS: The right IJV line terminates at the cavoatrial junction. LUNGS: There is worsening preliminary venous congestion, interstitial pulmonary edema and perihilar opacities, more confluent and dense on the right. PLEURA: There are moderate bilateral pleural effusions. No pneumothorax. CARDIOVASCULAR: Normal. OSSEOUS STRUCTURES: No significant abnormalities. VISUALIZED UPPER ABDOMEN: Normal. OTHER FINDINGS: None. IMPRESSION: Findings are most compatible with worsening come congestive heart failure and probable pulmonary edema, worse on the right. Right perihilar pneumonia cannot be excluded. Follow-up is advised.
--- NOTE | 2016-06-13 12:36 | CP.PCM.PN ---
Subjective - Date & Time of Evaluation Date of Evaluation: 06/13/16 Time of Evaluation: 12:32 - Subjective Subjective: SURGERY NOTE FOR DR. JOHNSON 75M seen and examined at bedside. Patient denies pain, nausea, vomiting, fevers , chill. No longer on pressors. Objective - Vital Signs/Intake and Output Vital Signs (last 24 hours): Temp Pulse Resp BP Pulse Ox 99.4 F 80 25 H 141/63 96 06/13/16 11:52 06/13/16 10:29 06/13/16 10:29 06/13/16 10:00 06/13/16 10:00 Intake and Output: 06/13/16 06/13/16 06:59 18:59 Intake Total 1240 Output Total 640 Balance 600 - Medications Medications: Current Medications Acetaminophen (Tylenol 325mg Tab) 650 mg PO Q8 PRN PRN Reason: Fever >100.4 F Last Admin: 06/13/16 07:47 Dose: 650 mg Acetylcysteine (Acetylcysteine 20%) 4 ml IH [id number] [facility] Last Admin: 06/13/16 07:35 Dose: 4 ml Albuterol/Ipratropium (Duoneb 3 Mg/0.5 Mg (3 Ml) Ud) 3 ml IH Q2H PRN PRN Reason: Shortness of Breath Albuterol/Ipratropium (Duoneb 3 Mg/0.5 Mg (3 Ml) Ud) 3 ml IH [id number] [facility] Last Admin: 06/13/16 07:35 Dose: 3 ml Aspirin (Ecotrin) 81 mg PO DAILY [facility] Last Admin: 06/13/16 09:44 Dose: 81 mg Famotidine (Pepcid) 20 mg IVP DAILY [facility] Last Admin: 06/13/16 09:44 Dose: 20 mg Fentanyl (Fentanyl) 75 mcg IVP Q1 PRN PRN Reason: Pain, moderate (4-7) Last Admin: 06/12/16 22:11 Dose: 75 mcg Heparin Sodium (Porcine) (Heparin) 5,000 units SC Q8 YOLANDA PRN Reason: Protocol Last Admin: 06/13/16 09:47 Dose: 5,000 units MEROPENEM-0.9% SODIUM CHLORIDE (Meropenem 1g/Ns 100ml Ivpb) 100 mls @ 100 mls/ hr IVPB Q8 YOLANDA PRN Reason: Protocol Stop: 06/15/16 13:01 Last Admin: 06/13/16 05:32 Dose: 100 mls/hr Vancomycin HCl (Vancomycin 1gm) 250 mls @ 167 mls/hr IVPB Q12H YOLANDA PRN Reason: Protocol Stop: 06/22/16 09:01 Last Admin: 06/13/16 09:44 Dose: 167 mls/hr Metoprolol Tartrate (Lopressor) 12.5 mg PO BRKDIN YOLANDA Midodrine (Proamatine) 10 mg PO TID YOLANDA Last Admin: 06/13/16 09:44 Dose: 10 mg Ondansetron HCl (Zofran Inj) 4 mg IVP Q6H PRN PRN Reason: Nausea/Vomiting Last Admin: 06/11/16 17:35 Dose: 4 mg - Labs Labs: 06/13/16 05:15 06/13/16 05:15 PT 12.0 Seconds (9.9-11.8) H 06/09/16 06:46 INR 1.11 (0.93-1.08) H 06/09/16 06:46 APTT 31.2 Seconds (23.7-30.8) H 06/09/16 06:46 - Constitutional Appears: Non-toxic, No Acute Distress - Respiratory Exam Respiratory Exam: Clear to Ausculation Bilateral, NORMAL BREATHING PATTERN - Cardiovascular Exam Cardiovascular Exam: REGULAR RHYTHM, +S1, +S2 - GI/Abdominal Exam GI & Abdominal Exam: Soft. absent: Distended, Firm, Guarding, Rigid, Tenderness , Rebound Additional comments: PTC draining clear bile. Assessment and Plan - Assessment and Plan (Free Text) Plan: 75 y/o M s/p ERCP with CBD stent placement POD#3, PTC POD#5 - f/u GI recs - No surgical intervention at this time. - continue medical management - will continue to follow Further recs discuss with Dr. Raghu Garduno, PGY1
--- NOTE | 2016-06-13 13:24 | PN ---
DATE: 06/13/2016 I saw the patient in the intensive care unit. He is alert. He is talking to me, getting clear fluid s today. He is still on high flow nasal cannula, but he looks a little bit less swollen today from t he IV Lasix we started him on. He is fairly comfortable. MEDICATIONS: He is currently on acetylcysteine, DuoNebs, Ecotrin, fentanyl, heparin, Lopressor, Merr em, Pepcid, ProAmatine, Tylenol, vancomycin, and Zofran. He is currently off the IV Lasix. PHYSICAL EXAMINATION: VITAL SIGNS: He has a 99.4 temp, 80 pulse, 25 respiratory rate. HEENT: His head is atraumatic, normocephalic. He has got some bruises on his nose and lips. He is on high flow nasal cannula. He is talking. He is alert, pleasantly confused. HEART: Regular rate. LUNGS: Decreased breath sounds, but clear to auscultation. ABDOMEN: Soft. He has got a pigtail catheter in the right side to the gallbladder and it is drainin g, but there are positive bowel sounds. EXTREMITIES: No edema. He is moving his legs. LABORATORY DATA: He has an 8.8 white count, 10 hemoglobin, 28.9 hematocrit with 84 platelets. That is the best platelets have been. His INR is 1.11. He has a 152 sodium, potassium 3.2. We will repl miguel the potassium. BUN 22, better, creatinine 0.7, GFR is greater than 60, sugar is 115. Calcium is 8. Total bili is 6.3. That is the best it has been, coming down nicely. AST is 52, ALT is 60, alk phos is 130, total protein is 4.9. BNP was 10,600. Urine showed moderate bili. It was large befo re. It is coming down. He is being seen by infectious disease, cardiology, pulmonary, gastroenterology. He has triple-vesse l artery disease, pneumonia, cholecystitis, pulmonary edema, thrombocytopenia, chronic obstructive pu lmonary disease. He has had a gallbladder infection with a pigtail catheter in there. We will beverley nue with aggressive treatment and care. Check his labs tomorrow. Sean Nicholson DO cc: [id number] TT: 06/13/2016 13:23:37 Confirmation # [id number] Dictation # [id number] tn
--- NOTE | 2016-06-13 14:33 | CP.PCM.PN ---
Subjective - Date & Time of Evaluation Date of Evaluation: 06/13/16 Time of Evaluation: 08:27 - Subjective Subjective: Patient seen and examined. No acute events. He appears more alert and responsive. No current complaint of abdominal pain. No nausea or vomiting. He remains off pressors. ROS otherwise negative in detail. Objective - Vital Signs/Intake and Output Vital Signs (last 24 hours): Temp Pulse Resp BP Pulse Ox 100.5 F H 75 24 143/81 98 06/13/16 08:05 06/13/16 08:05 06/13/16 08:05 06/13/16 08:05 06/13/16 08:05 Intake and Output: 06/13/16 06/13/16 06:59 18:59 Intake Total 1240 Output Total 640 Balance 600 - Medications Medications: Current Medications Acetaminophen (Tylenol 325mg Tab) 650 mg PO Q8 PRN PRN Reason: Fever >100.4 F Last Admin: 06/13/16 07:47 Dose: 650 mg Acetylcysteine (Acetylcysteine 20%) 4 ml IH [id number] [facility] Last Admin: 06/13/16 07:35 Dose: 4 ml Albuterol/Ipratropium (Duoneb 3 Mg/0.5 Mg (3 Ml) Ud) 3 ml IH Q2H PRN PRN Reason: Shortness of Breath Albuterol/Ipratropium (Duoneb 3 Mg/0.5 Mg (3 Ml) Ud) 3 ml IH [id number] [facility] Last Admin: 06/13/16 07:35 Dose: 3 ml Famotidine (Pepcid) 20 mg IVP DAILY [facility] Last Admin: 06/12/16 09:33 Dose: 20 mg Fentanyl (Fentanyl) 75 mcg IVP Q1 PRN PRN Reason: Pain, moderate (4-7) Last Admin: 06/12/16 22:11 Dose: 75 mcg MEROPENEM-0.9% SODIUM CHLORIDE (Meropenem 1g/Ns 100ml Ivpb) 100 mls @ 100 mls/ hr IVPB Q8 YOLANDA PRN Reason: Protocol Stop: 06/15/16 13:01 Last Admin: 06/13/16 05:32 Dose: 100 mls/hr Potassium Chloride (Potassium Chloride 20 Meq/100 Ml) 100 mls @ 50 mls/hr IVPB Q2H [facility] Stop: 06/13/16 10:29 Last Admin: 06/13/16 07:47 Dose: 50 mls/hr Midodrine (Proamatine) 10 mg PO TID YOLANDA Last Admin: 06/12/16 14:18 Dose: Not Given Ondansetron HCl (Zofran Inj) 4 mg IVP Q6H PRN PRN Reason: Nausea/Vomiting Last Admin: 06/11/16 17:35 Dose: 4 mg - Labs Labs: 06/13/16 05:15 06/13/16 05:15 PT 12.0 Seconds (9.9-11.8) H 06/09/16 06:46 INR 1.11 (0.93-1.08) H 06/09/16 06:46 APTT 31.2 Seconds (23.7-30.8) H 06/09/16 06:46 - Constitutional Appears: No Acute Distress - Eye Exam Eye Exam: Scleral icterus - ENT Exam ENT Exam: Mucous Membranes Moist - Respiratory Exam Additional comments: decreased bilateral breath sounds - Cardiovascular Exam Cardiovascular Exam: +S1, +S2 - GI/Abdominal Exam Additional comments: abdomen soft, non tender to palpation, no rebound or guarding, bowel sounds present - Extremities Exam Extremities Exam: absent: Pedal Edema - Neurological Exam Neurological Exam: Alert - Skin Skin Exam: Dry Assessment and Plan - Assessment and Plan (Free Text) Assessment: This is a 75yo male with PMHx significant for prostate cancer s/p brachytherapy , MDS, alzheimer's dementia who presented with abdominal pain and vomiting ESBL e coli bacteremia s/p PTC and s/p ERCP with stent placement. Plan: Continue supportive care Monitor LFTs, T bili downtrending; if LFT abnormalities persist, can consider liver biopsy Continue antibiotic therapy Follow up cultures Liquid diet as tolerated He will need repeat ERCP in 3 months with stent removal D/w ICU team
[2016-06-14] MEDS: Acetylcysteine 20% Inhal Soln (4ml) IH SCH ×4 (01:28→19:35)
[2016-06-14] MEDS: Albuterol-Ipratrop 3 mg / 0.5 (3 ml) UD IH SCH ×4 (01:29→19:35)
[2016-06-14] MEDS: Meropenem 1g/NS 100mL IVPB 100 ML IVPB SCH ×3 (05:14→21:35)
[2016-06-14 05:21] LABS: HEMATOCRIT 30.5 % (42.0-52.0); MEAN CELL VOLUME 94.1 fL (80.0-105.0); MEAN CORPUSCULAR HEMOGLOBIN 31.5 pg (25.0-35.0); MEAN CORPUSCULAR HGB CONC 33.4 g/dl (31.0-37.0); MEAN PLATELET VOLUME 11.5 fl (7.0-11.0); RED CELL DISTRIBUTION WIDTH 15.5 % (11.5-14.5); WHITE BLOOD COUNT 8.8 10^3/ul (4.5-11.0)
[2016-06-14 05:33] LABS: ARTERIAL BLOOD GAS HCO3 30.4 mmol/L (21-28); ARTERIAL BLOOD GAS O2 CAPACITY 14.1 mL/dl (16-24); ARTERIAL BLOOD GAS O2 CONTENT 14.1 ML/dl (15-23); ARTERIAL BLOOD HGB O2 SAT 96.2 % (95.0-98.0); CARBOXYHEMOGLOBIN 2.8 % (0.5-1.5); HHB 0.1 % (0-5); METHEMOGLOBIN 0.9 % (0.0-3.0)
[2016-06-14 05:37] LABS: ALKALINE PHOSPHATASE 138 U/L (38-133); ALT/SGPT 51 U/L (7-56); AST/SGOT 53 U/L (15-59); BILIRUBIN,TOTAL 5.1 mg/dL (0.2-1.3); BLOOD UREA NITROGEN 21 mg/dL (7-21); CALCIUM 7.9 mg/dL (8.4-10.5); CARBON DIOXIDE 31 mmol/L (21-33); CHLORIDE 109 mmol/L (98-107); GFR AFRICAN-AMERICAN > 60; GLUCOSE,RANDOM 134 mg/dL (70-110); POTASSIUM 3.5 mmol/L (3.6-5.0); SODIUM 146 mmol/L (132-148); TOTAL PROTEIN 4.9 g/dL (5.8-8.3)
[2016-06-14] MEDS: Potassium Chloride 20 mEq 100 ML IVPB SCH ×2 (06:20→09:51)
--- NOTE | 2016-06-14 07:43 | PN ---
DATE: 06/14/2016(610am--655am) PULMONARY NOTE SUBJECTIVE: The patient appears more comfortable this morning. He is mildly short of breath, but in no acute distress. PHYSICAL EXAMINATION: VITAL SIGNS: Temperature is 98.3, pulse 66, respirations 20/22, blood pressure 145/76. Oxygen saturation on high-flow delivery/70% - 98%. HEENT: Normocephalic, atraumatic. No JVD. CARDIOVASCULAR: Positive S1, S2. Questionable S3 gallop. LUNGS: Decreased breath sounds at the bases. Less bilateral rhonchi. No wheezing. EXTREMITIES: Mild edema. No cyanosis, no clubbing. Calves are nontender to palpation. GASTROINTESTINAL: Abdomen is soft. It is less distended and less tender to palpation. Bowel sounds are somewhat improved. SKIN: No acute rash. NEUROLOGIC: Limited at the present time. PERTINENT LABORATORY DATA: Chest x-ray was done and reviewed. There are less consolidative changes/less atelectasis noted. However, there is a definite increase in the pulmonary edema changes. Arterial blood gas was done on high- flow delivery/70%. Results are: pH 7.50, pCO2 of 39, pO2 of 120. IMPRESSION: 1. Respiratory failure. 2. Infiltrates/atelectasis - improved. 3. Pulmonary edema. 4. Septic shock, currently resolved. 5. Ascending cholangitis. 6. Acute cholecystitis. 7. Anemia. 8. Thrombocytopenia. 9. Triple-vessel coronary artery disease. PLAN: The patient appears more comfortable this morning. He is now only mildly short of breath, and in no acute distress. He states he is feeling better overall. I did review the x-ray as above. There are less consolidative changes/less atelectasis noted. However, there is a definite increase in pulmonary edema changes. I will discuss the above with the attending physician and Dr. Landry. In spite of the filling pressures noted on cardiac catheterization, the patient may be third-spacing his fluids-- in the face of hypoalbuminemia-- at this point. Therefore, Lasix may be of benefit at the present time. Again, I will discuss the above with the ICU team/Dr. Hastings in the next few moments. I would continue with the treatment for pneumonia as per infectious disease. Input by Dr. Goode is noted. Vancomycin has been added, and I agree with this for now. The procalcitonin is significantly decreased. I did discuss the case with Dr. Goode yesterday and today. I have also reviewed the arterial blood gas. This is a mixed disorder noted with a significant increase in the alveolar arterial gradient. I would continue with the GI and surgical evaluations. Inputs are noted. Clinical status of the patient is certainly improved - compared to last week. However, again, the overall status/prognosis of this patient remains very guarded. I will discuss the above with the entire ICU team and Dr. Nicholson in the next few moments. Medardo Whittaker MD cc: [phone] TT: 06/14/2016 07:42:57 Confirmation # [id number] Dictation # [id number] jn MTDD
--- NOTE | 2016-06-14 09:15 | PN ---
DATE: 06/14/2016 The patient is in bed in no acute distress. The patient was seen earlier this morning in room 528, b ed 7. He had an uneventful night. No fevers and no chills. PHYSICAL EXAMINATION: VITAL SIGNS: Temperature is 98, T-max yesterday was 100.5, and blood pressure is 145/70, respiratory rate of 22, heart rate of 66. The patient has a high-flow O2 delivery saturating at 98%. HEENT: Reveals the high-flow delivery apparatus by his nose. NECK: Supple. LUNGS: Have decreased breath sounds. ABDOMEN: Soft, nontender. LABORATORY EXAMINATION: Reveals a white count of 8.8, hemoglobin of 10, platelets of 106,000. The c oagulation is noted. INR is 1.1. The chemistries reveal the BUN of 21, creatinine of 0.7. Repeat p rocalcitonin is down to 11. It was 83, and 34 on the , and yesterday, it is down to 11, and crea tinine of 0.7. Alk phos is 138, slight increase in alk phos. Microbiology is noted. Urine culture from yesterday is no growth, and urine culture from the is no growth. Blood cultures from [address] are pending. Sputum cultures are pending. CURRENT MEDICATION: Reveals the patient to be on vancomycin and meropenem. Meropenem requires a juan ewal. I will reorder. The patient had a chest x-ray this morning. The results are pending. Dr. Medardo Whittaker's note from this morning is reviewed. Dr. Whittaker states that there are less consolidative changes and had less atelectasis, as per Dr. Whittaker. ASSESSMENT AND PLAN: This is a 75-year-old male who was admitted with septic shock, respiratory fail ure, acute renal failure, extended-spectrum beta-lactamase Escherichia coli bacteremia secondary to e xtended-spectrum beta-lactamase Escherichia coli bile culture, acute cholecystitis, ascending cholang itis, status post abdominal drainage placement into the biliary tree post-procedure day #7, status po st endoscopic retrograde cholangiopancreatography with biliary stent placement, post-procedure day #5 . No fevers yesterday, and repeat cultures blood, urine, sputum, and now on vancomycin day #2, and a lso on meropenem. Improving procalcitonin. I will follow the fever curve. Dr. Sean Nicholson's note is reviewed. ____ note is reviewed. We will follow closely with you. Padilla Goode MD cc: [id number] TT: 06/14/2016 09:14:51 Confirmation # [id number] Dictation # [id number]
--- NOTE | 2016-06-14 09:27 | CP.CCUPN ---
CCU Subjective - Physician Review Events Since Last Encounter (Free Text): 06/14/16 09:21 No acute vents overnight. Pt does have some signs of sundowning. Currently seen sitting up in chair receiving Chest PT Critical Care Time Spent (in minutes): 55 CCU Objective - Vital Signs / Intake & Output Vital Signs (Last 4 hours): Vital Signs Temp Pulse Resp BP Pulse Ox 06/14/16 08:00 99.5 F 80 22 122/89 99 06/14/16 07:13 91 H 14 122/89 98 06/14/16 07:00 84 32 H 06/14/16 06:00 63 22 143/73 98 06/14/16 05:39 20 Intake and Output (Last 8hrs): Intake & Output 06/13/16 06/14/16 06/14/16 22:59 06:59 14:59 Intake Total 950 450 Output Total 820 970 Balance 130 -520 Weight 168 lb 12.8 oz Intake: IV 350 450 Antibiotic 350 450 Oral 600 Output: Drainage 20 70 Right Upper Abdomen 20 70 Urine 800 900 Urethral (Tong) 800 900 Other: Voiding Method Indwelling Catheter # Bowel Movements 0 - Physical Exam Head: Positive for: Atraumatic, Normocephalic Pupils: Positive for: PERRL Extroacular Muscles: Positive for: EOMI Conjunctiva: Positive for: Normal Mouth: Positive for: Moist Mucous Membranes Pharnyx: Negative for: ERYTHEMA, EXUDATE, TONSILS ENLARGED Nose (External): Positive for: Other (high flow NC ) Respiratory/Chest: Positive for: Decreased Breath Sounds (RLL base decreased BS) , Other (b/l crackles). Negative for: Respiratory Distress, Accessory Muscle Use Cardiovascular: Positive for: Regular Rate and Rhythm, Normal S1, S2. Negative for: Murmurs Abdomen: Positive for: Other (Miguelina tube in place: SS fluids. Minimal output ). Negative for: Tenderness (rigid surgical abdomen), Distention (Abdomen distended tympanitic and quiet with surgical scar), Normal Bowel Sounds, Rebound , Guarding Back: Positive for: Normal Inspection Upper Extremity: Positive for: Normal Inspection, Edema, Normal ROM. Negative for: Cyanosis Lower Extremity: Positive for: Normal Inspection. Negative for: Edema Neurological: Positive for: GCS=15, CN II-XII Intact, Speech Normal, Motor Func Grossly Intact Skin: Positive for: Warm, Dry, Other (generalized tinea infection ) Psychiatric: Negative for: Alert, Oriented x 3, Normal Insight - Medications Active Medications: Active Medications Generic Name Dose Route Start Last Admin Trade Name Freq PRN Reason Stop Dose Admin Acetaminophen 650 mg 06/06/16 15:35 06/13/16 15:42 Tylenol 325mg Tab PO 650 mg Q8 PRN Administration Fever >100.4 F Acetylcysteine 4 ml 06/12/16 08:00 06/14/16 07:57 Acetylcysteine 20% IH 4 ml [id number] YOLANDA Administration Albuterol/Ipratropium 3 ml 06/11/16 07:01 Duoneb 3 Mg/0.5 Mg (3 Ml) Ud IH Q2H PRN Shortness of Breath Albuterol/Ipratropium 3 ml 06/11/16 08:00 06/14/16 07:57 Duoneb 3 Mg/0.5 Mg (3 Ml) Ud IH 3 ml [id number] YOLANDA Administration Aspirin 81 mg 06/13/16 10:00 06/13/16 09:44 Ecotrin PO 81 mg DAILY YOLANDA Administration Famotidine 20 mg 06/08/16 10:00 06/13/16 09:44 Pepcid IVP 20 mg DAILY YOLANDA Administration Fentanyl 75 mcg 06/07/16 11:36 06/14/16 02:02 Fentanyl IVP 75 mcg Q1 PRN Administration Pain, moderate (4-7) Heparin Sodium (Porcine) 5,000 units 06/13/16 09:00 06/14/16 05:14 Heparin SC 5,000 units Q8 YOLANDA Administration Protocol Meropenem 1g/NS 100mL IVPB 100 mls @ 100 mls/hr 06/09/16 09:24 06/14/16 05:14 Meropenem 1g/Ns 100ml Ivpb IVPB 06/15/16 13:01 100 mls/hr Q8 YOLANDA Administration Protocol Vancomycin HCl 250 mls @ 167 mls/hr 06/13/16 09:00 06/13/16 21:45 Vancomycin 1gm IVPB 06/22/16 09:01 167 mls/hr Q12H YOLANDA Administration Protocol Potassium Chloride 100 mls @ 50 mls/hr 06/14/16 06:15 06/14/16 06:20 Potassium Chloride 20 Meq/100 Ml IVPB 06/14/16 10:14 50 mls/hr Q2H YOLANDA Administration Metoprolol Tartrate 12.5 mg 06/13/16 17:00 06/13/16 17:57 Lopressor PO 12.5 mg BRKDIN YOLANDA Administration Midodrine 10 mg 06/10/16 19:30 06/13/16 17:56 Proamatine PO Not Given TID YOLANDA Ondansetron HCl 4 mg 06/11/16 17:21 06/11/16 17:35 Zofran Inj IVP 4 mg Q6H PRN Administration Nausea/Vomiting - Patient Studies Lab Studies: Microbiology Studies 06/09/16 08:45 Blood Culture - Final Blood-Venous NO GROWTH AFTER 5 DAYS Gram Stain - Final TEST NOT PERFORMED 06/09/16 08:40 Blood Culture - Final Blood-Venous NO GROWTH AFTER 5 DAYS Gram Stain - Final TEST NOT PERFORMED 06/13/16 09:48 Urine Culture - Final Urine No Growth (<1,000 CFU/ML) 06/08/16 08:30 Blood Culture - Final Blood-Venous NO GROWTH AFTER 5 DAYS Gram Stain - Final TEST NOT PERFORMED 06/08/16 08:30 Blood Culture - Final Blood-Venous NO GROWTH AFTER 5 DAYS Gram Stain - Final TEST NOT PERFORMED Lab Studies 06/14/16 06/14/16 06/13/16 Range/Units 05:15 05:02 09:48 WBC 8.8 (4.5-11.0) 10^3/ul RBC 3.24 L (3.5-6.1) 10^6/uL Hgb 10.2 L (14.0-18.0) gm/dL Hct 30.5 L (42.0-52.0) % MCV 94.1 (80.0-105.0) fL MCH 31.5 (25.0-35.0) pg MCHC 33.4 (31.0-37.0) g/dl RDW 15.5 H (11.5-14.5) % Plt Count 106 L (120.0-450.0) 10^3/uL MPV 11.5 H (7.0-11.0) fl pCO2 39 (35-45) mm/Hg pO2 120.0 H (80-100) mm/Hg HCO3 30.4 H (21-28) mmol/L ABG pH 7.50 H (7.35-7.45) ABG Total CO2 31.6 H (22-28) mmol.L ABG O2 Saturation 99.9 H (95-98) % ABG O2 Content 14.1 L (15-23) ML/dl ABG Base Excess 6.7 H (-2.0-3.0) mmol/L ABG Hemoglobin 10.3 L (11.7-17.4) g/dL ABG Carboxyhemoglobin 2.8 H (0.5-1.5) % POC ABG HHb (Measured) 0.1 (0-5) % ABG Methemoglobin 0.9 (0.0-3.0) % ABG O2 Capacity 14.1 L (16-24) mL/dl Hgb O2 Saturation 96.2 (95.0-98.0) % FiO2 80.0 % Sodium 146 (132-148) mmol/L Potassium 3.5 L (3.6-5.0) mmol/L Chloride 109 H (98-107) mmol/L Carbon Dioxide 31 (21-33) mmol/L Anion Gap 10 (10-20) BUN 21 (7-21) mg/dL Creatinine 0.7 (0.5-1.4) mg/dL Est GFR ( Amer) > 60 Est GFR (Non-Af Amer) > 60 Random Glucose 134 H (70-110) mg/dL Calcium 7.9 L (8.4-10.5) mg/dL Total Bilirubin 5.1 H (0.2-1.3) mg/dL AST 53 (15-59) U/L ALT 51 (7-56) U/L Alkaline Phosphatase 138 H (38-133) U/L Total Protein 4.9 L (5.8-8.3) g/dL Albumin 2.5 L (3.0-4.8) g/dL Globulin 2.4 gm/dL Albumin/Globulin Ratio 1.0 L (1.1-1.8) Procalcitonin (0.19-0.49) NG/ML Urine Color Dark yellow (YELLOW) Urine Appearance Slight-cloudy (CLEAR) Urine pH 6.5 (4.7-8.0) Ur Specific Bristow 1.020 (1.005-1.035) Urine Protein 30 H (<30 mg/dL) mg/dL Urine Glucose (UA) Negative (NEGATIVE) mg/dL Urine Ketones 40 H (NEGATIVE) mg/dL Urine Blood Small H (NEGATIVE) Urine Nitrate Negative (NEGATIVE) Urine Bilirubin Moderate H (NEGATIVE) Urine Urobilinogen 1.0 H (<1 E.U./dL) E.U./dL Ur Leukocyte Esterase Negative (NEGATIVE) Lizzeth/uL Urine RBC 1 - 3 (0-2) /hpf Urine WBC 0 - 2 (0-6) /hpf Ur Epithelial Cells 0 - 2 (0-5) /hpf Urine Bacteria Rare (NEG) 06/13/16 Range/Units 09:00 WBC (4.5-11.0) 10^3/ul RBC (3.5-6.1) 10^6/uL Hgb (14.0-18.0) gm/dL Hct (42.0-52.0) % MCV (80.0-105.0) fL MCH (25.0-35.0) pg MCHC (31.0-37.0) g/dl RDW (11.5-14.5) % Plt Count (120.0-450.0) 10^3/uL MPV (7.0-11.0) fl pCO2 (35-45) mm/Hg pO2 (80-100) mm/Hg HCO3 (21-28) mmol/L ABG pH (7.35-7.45) ABG Total CO2 (22-28) mmol.L ABG O2 Saturation (95-98) % ABG O2 Content (15-23) ML/dl ABG Base Excess (-2.0-3.0) mmol/L ABG Hemoglobin (11.7-17.4) g/dL ABG Carboxyhemoglobin (0.5-1.5) % POC ABG HHb (Measured) (0-5) % ABG Methemoglobin (0.0-3.0) % ABG O2 Capacity (16-24) mL/dl Hgb O2 Saturation (95.0-98.0) % FiO2 % Sodium (132-148) mmol/L Potassium (3.6-5.0) mmol/L Chloride (98-107) mmol/L Carbon Dioxide (21-33) mmol/L Anion Gap (10-20) BUN (7-21) mg/dL Creatinine (0.5-1.4) mg/dL Est GFR ( Amer) Est GFR (Non-Af Amer) Random Glucose (70-110) mg/dL Calcium (8.4-10.5) mg/dL Total Bilirubin (0.2-1.3) mg/dL AST (15-59) U/L ALT (7-56) U/L Alkaline Phosphatase (38-133) U/L Total Protein (5.8-8.3) g/dL Albumin (3.0-4.8) g/dL Globulin gm/dL Albumin/Globulin Ratio (1.1-1.8) Procalcitonin 11.10 H (0.19-0.49) NG/ML Urine Color (YELLOW) Urine Appearance (CLEAR) Urine pH (4.7-8.0) Ur Specific Bristow (1.005-1.035) Urine Protein (<30 mg/dL) mg/dL Urine Glucose (UA) (NEGATIVE) mg/dL Urine Ketones (NEGATIVE) mg/dL Urine Blood (NEGATIVE) Urine Nitrate (NEGATIVE) Urine Bilirubin (NEGATIVE) Urine Urobilinogen (<1 E.U./dL) E.U./dL Ur Leukocyte Esterase (NEGATIVE) Lizzeth/uL Urine RBC (0-2) /hpf Urine WBC (0-6) /hpf Ur Epithelial Cells (0-5) /hpf Urine Bacteria (NEG) Laboratory Results - last 24 hr 06/13/16 06/13/16 06/14/16 09:00 09:48 05:02 WBC 8.8 RBC 3.24 L Hgb 10.2 L Hct 30.5 L MCV 94.1 MCH 31.5 MCHC 33.4 RDW 15.5 H Plt Count 106 L MPV 11.5 H pCO2 pO2 HCO3 ABG pH ABG Total CO2 ABG O2 Saturation ABG O2 Content ABG Base Excess ABG Hemoglobin ABG Carboxyhemoglobin POC ABG HHb (Measured) ABG Methemoglobin ABG O2 Capacity Hgb O2 Saturation FiO2 Sodium 146 Potassium 3.5 L Chloride 109 H Carbon Dioxide 31 Anion Gap 10 BUN 21 Creatinine 0.7 Est GFR ( Amer) > 60 Est GFR (Non-Af Amer) > 60 Random Glucose 134 H Calcium 7.9 L Total Bilirubin 5.1 H AST 53 ALT 51 Alkaline Phosphatase 138 H Total Protein 4.9 L Albumin 2.5 L Globulin 2.4 Albumin/Globulin Ratio 1.0 L Procalcitonin 11.10 H Urine Color Dark yellow Urine Appearance Slight-cloudy Urine pH 6.5 Ur Specific Bristow 1.020 Urine Protein 30 H Urine Glucose (UA) Negative Urine Ketones 40 H Urine Blood Small H Urine Nitrate Negative Urine Bilirubin Moderate H Urine Urobilinogen 1.0 H Ur Leukocyte Esterase Negative Urine RBC 1 - 3 Urine WBC 0 - 2 Ur Epithelial Cells 0 - 2 Urine Bacteria Rare 06/14/16 05:15 WBC RBC Hgb Hct MCV MCH MCHC RDW Plt Count MPV pCO2 39 pO2 120.0 H HCO3 30.4 H ABG pH 7.50 H ABG Total CO2 31.6 H ABG O2 Saturation 99.9 H ABG O2 Content 14.1 L ABG Base Excess 6.7 H ABG Hemoglobin 10.3 L ABG Carboxyhemoglobin 2.8 H POC ABG HHb (Measured) 0.1 ABG Methemoglobin 0.9 ABG O2 Capacity 14.1 L Hgb O2 Saturation 96.2 FiO2 80.0 Sodium Potassium Chloride Carbon Dioxide Anion Gap BUN Creatinine Est GFR ( Amer) Est GFR (Non-Af Amer) Random Glucose Calcium Total Bilirubin AST ALT Alkaline Phosphatase Total Protein Albumin Globulin Albumin/Globulin Ratio Procalcitonin Urine Color Urine Appearance Urine pH Ur Specific Bristow Urine Protein Urine Glucose (UA) Urine Ketones Urine Blood Urine Nitrate Urine Bilirubin Urine Urobilinogen Ur Leukocyte Esterase Urine RBC Urine WBC Ur Epithelial Cells Urine Bacteria Review of Systems - Review of Systems Systems not reviewed;Unavailable: Altered Mental Status Critical Care Progress Note - Ventilator Checklist PUD Prophalyxis: Yes DVT Prophylaxis: Yes - Nutrition Nutrition: Nutrition Category Date Time Status Liquid Diet [DIET] Diets 06/13/16 Breakfast Ordered Liquid Diet [DIET] Diets 06/14/16 Lunch Ordered Assessment/Plan - Assessment and Plan (Free Text) Assessment: Resolving Septic SHock from Cholangitis S/P C- Drain and ERCP stent placement. T. Bili improving along with PCT. G.I following On Treatment for E.Coli bactermia . I.D following . Afebrile and normotensive. Off all vasopressors CXR reviewed and shows slight improvement of possible RLL atelectasis and/or resolving infiltrate. Increased pulmonary vascular congestion noted. Would agree with Dr. Whittaker about giving Lasix 40mg x 1. Reviewing hospital stay on I&O's pt is seen to be greater than 10L +. Would watch urine output and trend oxygen needs to keep PA02> 60 on hfnc ----> N.C PT OT needed. DVT P Resume diet as tolerated, watch for aspiration precautions cc time 55 min
[2016-06-14] MEDS: Vancomycin 1gm in NS 250ml 250 ML IVPB SCH ×2 (09:51→21:36)
--- NOTE | 2016-06-14 11:20 | PN ---
DATE: 06/14/2016 SUBJECTIVE: I saw the patient sitting in a bed to chair in the intensive care unit. He is alert. He is talking. He is taking in some fluids. He is on high flow oxygen still nasally, but doing much better. MEDICATIONS: He is on DuoNeb, Ecotrin, heparin, Lopressor, meropenem, Pepcid, ProAmatine, Tylenol, vancomycin IV, and Zofran. PHYSICAL EXAMINATION: VITAL SIGNS: 99.5 temperature, 80 pulse, 122/89 blood pressure, 22 respiratory rate, 99% O2 sat on room air. HEENT: Head is atraumatic, normocephalic, although the bridge of his nose does have an excoriation. His lips are also excoriated, but he is alert and talking , smiling. HEART: Regular rate. LUNGS: Decreased breath sounds but clear to auscultation. ABDOMEN: Soft. He has a pigtail catheter into his gallbladder still draining. EXTREMITIES: No edema. LABORATORY DATA: He has an 8.8 white count, 10.2 hemoglobin, 30.5 hematocrit, with 106 platelets, doing much better. INR is 1.11. He has a 146 sodium, 3.5 potassium. We are going to replace the potassium. BUN 29, creatinine 0.7, the best his kidneys have been. GFR is greater than 60, sugar is 134, calcium 7.9, total bilirubin is 5.1, AST is 53, ALT is 51, alk phos 138, very good. Total protein is 4.9. Procalcitonin 11.1. Urine is moderate. ASSESSMENT: He is being seen by multiple doctors, the learning coach, infectious disease, pulmonary, cardiology, GI. He had septic shock, respiratory failure, acute renal failure. He had sepsis, acute cholecystitis, ascending cholangitis, and despite all this he is doing quite well. He is on IV antibiotics. Being seen by multiple doctors on multiple medications. He is on potassium replacement, liquid diet. We will continue with aggressive treatment and care as per the learning coach. We will check his labs tomorrow. Sean Nicholson DO cc: [id number] TT: 06/14/2016 11:19:49 Confirmation # [id number] Dictation # [id number] MTDD
--- NOTE | 2016-06-14 12:00 | RAD ---
HISTORY: f/u COMPARISON: 06/13/2016 FINDINGS: The right IJV line terminates in the SVC. LUNGS: There is interval improved aeration in the lungs with near complete resolution of right perihilar consolidation. There is diffuse haziness in both lungs and layering pleural effusions. PLEURA: No pneumothorax apparent. CARDIOVASCULAR: Normal. OSSEOUS STRUCTURES: No significant abnormalities. VISUALIZED UPPER ABDOMEN: Normal. OTHER FINDINGS: None. IMPRESSION: Interval improvement in presumable right perihilar pulmonary edema. Persistent layering pleural effusions.
--- NOTE | 2016-06-14 13:04 | CP.PCM.PN ---
<Rogelio Cast - Last Filed: 06/14/16 13:06> Subjective - Date & Time of Evaluation Date of Evaluation: 06/14/16 Time of Evaluation: 07:00 - Subjective Subjective: PGY4 GI Fellow Progress Note Patient seen and examined bedside this morning in the ICU. The patient is out of bed and in bedside chair. He states no new complaints and is tolerating liquid diet without issue. 12 system ROS performed and negative except where stated. Objective - Vital Signs/Intake and Output Vital Signs (last 24 hours): Temp Pulse Resp BP Pulse Ox 99.2 F 68 22 116/65 97 06/14/16 11:50 06/14/16 11:50 06/14/16 11:50 06/14/16 11:50 06/14/16 11:50 Intake and Output: 06/14/16 06/14/16 06:59 18:59 Intake Total 450 Output Total 970 Balance -520 - Medications Medications: Current Medications Acetaminophen (Tylenol 325mg Tab) 650 mg PO Q8 PRN PRN Reason: Fever >100.4 F Last Admin: 06/14/16 09:52 Dose: 650 mg Acetylcysteine (Acetylcysteine 20%) 4 ml IH [id number] [facility] Last Admin: 06/14/16 07:57 Dose: 4 ml Albuterol/Ipratropium (Duoneb 3 Mg/0.5 Mg (3 Ml) Ud) 3 ml IH Q2H PRN PRN Reason: Shortness of Breath Albuterol/Ipratropium (Duoneb 3 Mg/0.5 Mg (3 Ml) Ud) 3 ml IH [id number] [facility] Last Admin: 06/14/16 07:57 Dose: 3 ml Aspirin (Ecotrin) 81 mg PO DAILY [facility] Last Admin: 06/14/16 09:51 Dose: 81 mg Famotidine (Pepcid) 20 mg IVP DAILY [facility] Last Admin: 06/14/16 09:51 Dose: 20 mg Heparin Sodium (Porcine) (Heparin) 5,000 units SC Q8 YOLANDA PRN Reason: Protocol Last Admin: 06/14/16 05:14 Dose: 5,000 units Meropenem 1g/NS 100mL IVPB (Meropenem 1g/Ns 100ml Ivpb) 100 mls @ 100 mls/hr IVPB Q8 YOLANDA PRN Reason: Protocol Stop: 06/15/16 13:01 Last Admin: 06/14/16 05:14 Dose: 100 mls/hr Vancomycin HCl (Vancomycin 1gm) 250 mls @ 167 mls/hr IVPB Q12H YOLANDA PRN Reason: Protocol Stop: 06/22/16 09:01 Last Admin: 06/14/16 09:51 Dose: 167 mls/hr Metoprolol Tartrate (Lopressor) 12.5 mg PO BRKDIN [facility] Last Admin: 06/14/16 09:51 Dose: 12.5 mg Midodrine (Proamatine) 10 mg PO TID [facility] Last Admin: 06/13/16 17:56 Dose: Not Given Ondansetron HCl (Zofran Inj) 4 mg IVP Q6H PRN PRN Reason: Nausea/Vomiting Last Admin: 06/11/16 17:35 Dose: 4 mg - Labs Labs: 06/14/16 05:02 06/14/16 05:02 PT 12.0 Seconds (9.9-11.8) H 06/09/16 06:46 INR 1.11 (0.93-1.08) H 06/09/16 06:46 APTT 31.2 Seconds (23.7-30.8) H 06/09/16 06:46 - Constitutional Appears: Non-toxic, No Acute Distress - Eye Exam Eye Exam: EOMI, PERRL - ENT Exam ENT Exam: Mucous Membranes Dry - Respiratory Exam Respiratory Exam: Rales. absent: Clear to Ausculation Bilateral, Rhonchi, Wheezes - Cardiovascular Exam Cardiovascular Exam: RRR, +S1, +S2 - GI/Abdominal Exam GI & Abdominal Exam: Soft, Tenderness (RUQ), Normal Bowel Sounds. absent: Distended, Firm, Guarding, Rigid, Organomegaly - Extremities Exam Extremities Exam: absent: Tenderness - Neurological Exam Neurological Exam: Alert, Awake, Oriented x3 - Psychiatric Exam Psychiatric exam: Normal Affect, Normal Mood - Skin Skin Exam: Dry, Warm Assessment and Plan - Assessment and Plan (Free Text) Assessment: Patient is a 75yo male with PMHx significant for prostate cancer s/p brachytherapy, MDS, alzheimer's dementia who presented from nursing facility with abdominal pain, nausea and vomiting. -Sepsis with ESBL E coli -Acute cholangitis -Acalculous cholecystitis -Choledocolithiasis -Abdominal distention concerning for early ileus -Acute respiratory failure requiring mechanical ventilation, resolved and successfully extubated -Myelodysplastic syndrome -Alzheimer's dementia Plan: -S/P ERCP with CBD stent placement POD#5, PTC POD#7 -LFTs downtrending, continue to monitor -Improved by all measures, tolerating liquid diet, advance to full liquid -Will need repeat ERCP in 3 months for stent removal -Will ultimately benefit from cholecystectomy, plan per surgery <Kan Patrick - Last Filed: 06/14/16 14:04> Objective - Vital Signs/Intake and Output Vital Signs (last 24 hours): Temp Pulse Resp BP Pulse Ox 99.2 F 68 22 116/65 97 06/14/16 11:50 06/14/16 11:50 06/14/16 11:50 06/14/16 11:50 06/14/16 11:50 Intake and Output: 06/14/16 06/14/16 06:59 18:59 Intake Total 450 Output Total 970 Balance -520 - Medications Medications: Current Medications Acetaminophen (Tylenol 325mg Tab) 650 mg PO Q8 PRN PRN Reason: Fever >100.4 F Last Admin: 06/14/16 09:52 Dose: 650 mg Acetylcysteine (Acetylcysteine 20%) 4 ml IH [id number] [facility] Last Admin: 06/14/16 13:09 Dose: 4 ml Albuterol/Ipratropium (Duoneb 3 Mg/0.5 Mg (3 Ml) Ud) 3 ml IH Q2H PRN PRN Reason: Shortness of Breath Albuterol/Ipratropium (Duoneb 3 Mg/0.5 Mg (3 Ml) Ud) 3 ml IH [id number] [facility] Last Admin: 06/14/16 13:09 Dose: 3 ml Aspirin (Ecotrin) 81 mg PO DAILY [facility] Last Admin: 06/14/16 09:51 Dose: 81 mg Famotidine (Pepcid) 20 mg IVP DAILY [facility] Last Admin: 06/14/16 09:51 Dose: 20 mg Heparin Sodium (Porcine) (Heparin) 5,000 units SC Q8 YOLANDA PRN Reason: Protocol Last Admin: 06/14/16 05:14 Dose: 5,000 units Meropenem 1g/NS 100mL IVPB (Meropenem 1g/Ns 100ml Ivpb) 100 mls @ 100 mls/hr IVPB Q8 YOLANDA PRN Reason: Protocol Stop: 06/15/16 13:01 Last Admin: 06/14/16 05:14 Dose: 100 mls/hr Vancomycin HCl (Vancomycin 1gm) 250 mls @ 167 mls/hr IVPB Q12H YOLANDA PRN Reason: Protocol Stop: 06/22/16 09:01 Last Admin: 06/14/16 09:51 Dose: 167 mls/hr Metoprolol Tartrate (Lopressor) 12.5 mg PO BRKDIN YOLANDA Last Admin: 06/14/16 09:51 Dose: 12.5 mg Midodrine (Proamatine) 10 mg PO TID YOLANDA Last Admin: 06/13/16 17:56 Dose: Not Given Ondansetron HCl (Zofran Inj) 4 mg IVP Q6H PRN PRN Reason: Nausea/Vomiting Last Admin: 06/11/16 17:35 Dose: 4 mg - Labs Labs: 06/14/16 05:02 06/14/16 05:02 PT 12.0 Seconds (9.9-11.8) H 06/09/16 06:46 INR 1.11 (0.93-1.08) H 06/09/16 06:46 APTT 31.2 Seconds (23.7-30.8) H 06/09/16 06:46 Attending/Attestation - Attestation I have personally seen and examined this patient.: Yes I have fully participated in the care of the patient.: Yes I have reviewed all pertinent clinical information, including history, physical exam and plan: Yes Notes (Text): Patient seen and examined with GI fellow. Agree with his note as documented above with the following additions/exceptions. This is a 75yo male with PMHx significant for prostate cancer s/p brachytherapy, MDS, alzheimer's dementia who presented with abdominal pain and vomiting ESBL e coli bacteremia s/p PTC and s/p ERCP with stent placement. He is symptomatically improved. LFTs downtrending. He is tolerating liquids, will advance slowly as tolerated. Continue antibiotic therapy as per infectious disease. He will need repeat ERCP in 3 months for stent removal. He would ultimately benefit from cholecystectomy. 06/14/16 14:02
--- NOTE | 2016-06-14 14:55 | CP.PCM.PN ---
Subjective - Date & Time of Evaluation Date of Evaluation: 06/14/16 Time of Evaluation: 14:50 - Subjective Subjective: Surgery: Dr. Krishnamurthy Pt seen and examine. No acute events overnight. Resting comfortably in bed. No complaints of pain. Tolerating liquid diet, no N/V. Objective - Vital Signs/Intake and Output Vital Signs (last 24 hours): Temp Pulse Resp BP Pulse Ox 99.2 F 68 22 116/65 97 06/14/16 11:50 06/14/16 11:50 06/14/16 11:50 06/14/16 11:50 06/14/16 11:50 Intake and Output: 06/14/16 06/14/16 06:59 18:59 Intake Total 450 Output Total 970 Balance -520 - Medications Medications: Current Medications Acetaminophen (Tylenol 325mg Tab) 650 mg PO Q8 PRN PRN Reason: Fever >100.4 F Last Admin: 06/14/16 09:52 Dose: 650 mg Acetylcysteine (Acetylcysteine 20%) 4 ml IH [id number] [facility] Last Admin: 06/14/16 13:09 Dose: 4 ml Albuterol/Ipratropium (Duoneb 3 Mg/0.5 Mg (3 Ml) Ud) 3 ml IH Q2H PRN PRN Reason: Shortness of Breath Albuterol/Ipratropium (Duoneb 3 Mg/0.5 Mg (3 Ml) Ud) 3 ml IH [id number] [facility] Last Admin: 06/14/16 13:09 Dose: 3 ml Aspirin (Ecotrin) 81 mg PO DAILY [facility] Last Admin: 06/14/16 09:51 Dose: 81 mg Famotidine (Pepcid) 20 mg IVP DAILY [facility] Last Admin: 06/14/16 09:51 Dose: 20 mg Heparin Sodium (Porcine) (Heparin) 5,000 units SC Q8 YOLANDA PRN Reason: Protocol Last Admin: 06/14/16 05:14 Dose: 5,000 units Meropenem 1g/NS 100mL IVPB (Meropenem 1g/Ns 100ml Ivpb) 100 mls @ 100 mls/hr IVPB Q8 YOLANDA PRN Reason: Protocol Stop: 06/15/16 13:01 Last Admin: 06/14/16 05:14 Dose: 100 mls/hr Vancomycin HCl (Vancomycin 1gm) 250 mls @ 167 mls/hr IVPB Q12H YOLANDA PRN Reason: Protocol Stop: 06/22/16 09:01 Last Admin: 06/14/16 09:51 Dose: 167 mls/hr Metoprolol Tartrate (Lopressor) 12.5 mg PO BRKDIN [facility] Last Admin: 06/14/16 09:51 Dose: 12.5 mg Midodrine (Proamatine) 10 mg PO TID [facility] Last Admin: 06/13/16 17:56 Dose: Not Given Ondansetron HCl (Zofran Inj) 4 mg IVP Q6H PRN PRN Reason: Nausea/Vomiting Last Admin: 06/11/16 17:35 Dose: 4 mg - Labs Labs: 06/14/16 05:02 06/14/16 05:02 PT 12.0 Seconds (9.9-11.8) H 06/09/16 06:46 INR 1.11 (0.93-1.08) H 06/09/16 06:46 APTT 31.2 Seconds (23.7-30.8) H 06/09/16 06:46 - Constitutional Appears: Non-toxic, No Acute Distress, Chronically Ill - Head Exam Head Exam: ATRAUMATIC, NORMOCEPHALIC - Eye Exam Eye Exam: EOMI, Scleral icterus - ENT Exam ENT Exam: Mucous Membranes Moist - Neck Exam Neck Exam: Full ROM - Respiratory Exam Respiratory Exam: NORMAL BREATHING PATTERN. absent: Accessory Muscle Use, Respiratory Distress - GI/Abdominal Exam GI & Abdominal Exam: Distended, Soft. absent: Firm, Guarding, Rigid, Tenderness , Rebound Additional comments: RUQ drain in place - Extremities Exam Extremities Exam: absent: Calf Tenderness, Pedal Edema - Neurological Exam Neurological Exam: Alert, Awake Assessment and Plan - Assessment and Plan (Free Text) Assessment: 75M w. septic shock 2/2 cholangitis, s/p IR drainage and ERCP w. stent -T. bili trending down, will continue to monitor -no immediate plans for OR -c/w current medical management -will d/w attending Chhaya PGY2
[2016-06-15] MEDS: Albuterol-Ipratrop 3 mg / 0.5 (3 ml) UD IH SCH ×4 (01:07→19:52)
[2016-06-15] MEDS: Acetylcysteine 20% Inhal Soln (4ml) IH SCH ×4 (01:07→19:52)
[2016-06-15 05:23] LABS: HEMATOCRIT 31.1 % (42.0-52.0); MEAN CELL VOLUME 93.7 fL (80.0-105.0); MEAN CORPUSCULAR HEMOGLOBIN 31.3 pg (25.0-35.0); MEAN CORPUSCULAR HGB CONC 33.4 g/dl (31.0-37.0); MEAN PLATELET VOLUME 11.3 fl (7.0-11.0); RED CELL DISTRIBUTION WIDTH 15.2 % (11.5-14.5); WHITE BLOOD COUNT 7.6 10^3/ul (4.5-11.0)
[2016-06-15] MEDS: Meropenem 1g/NS 100mL IVPB 100 ML IVPB SCH (05:52)
[2016-06-15 06:45] LABS: ALB/GLOB RATIO 1.1 (1.1-1.8); ALKALINE PHOSPHATASE 152 U/L (38-133); ALT/SGPT 47 U/L (7-56); AST/SGOT 60 U/L (15-59); BILIRUBIN,TOTAL 4.3 mg/dL (0.2-1.3); BLOOD UREA NITROGEN 21 mg/dL (7-21); CALCIUM 8.4 mg/dL (8.4-10.5); CARBON DIOXIDE 27 mmol/L (21-33); CHLORIDE 106 mmol/L (98-107); GFR AFRICAN-AMERICAN > 60; GLUCOSE,RANDOM 155 mg/dL (70-110); POTASSIUM 3.6 mmol/L (3.6-5.0); SODIUM 140 mmol/L (132-148)
--- NOTE | 2016-06-15 07:20 | CP.PCM.PN ---
<Rogelio Cast - Last Filed: 06/15/16 08:47> Subjective - Date & Time of Evaluation Date of Evaluation: 06/15/16 Time of Evaluation: 07:18 - Subjective Subjective: PGY4 GI Fellow Progress Note Patient seen and examined bedside this morning. The patient denies any new complaints at this time. He is seen eating breakfast without issue and is requesting more food. No BM in 4 days. 12 system ROS performed and negative except where stated. Objective - Vital Signs/Intake and Output Vital Signs (last 24 hours): Temp Pulse Resp BP Pulse Ox 100.6 F H 75 29 H 133/74 85 L 06/15/16 00:04 06/15/16 03:00 06/15/16 03:00 06/15/16 06:45 06/15/16 03:00 - Medications Medications: Current Medications Acetaminophen (Tylenol 325mg Tab) 650 mg PO Q8 PRN PRN Reason: Fever >100.4 F Last Admin: 06/15/16 00:04 Dose: 650 mg Acetylcysteine (Acetylcysteine 20%) 4 ml IH [id number] [facility] Last Admin: 06/15/16 01:07 Dose: 4 ml Albuterol/Ipratropium (Duoneb 3 Mg/0.5 Mg (3 Ml) Ud) 3 ml IH Q2H PRN PRN Reason: Shortness of Breath Albuterol/Ipratropium (Duoneb 3 Mg/0.5 Mg (3 Ml) Ud) 3 ml IH [id number] [facility] Last Admin: 06/15/16 01:07 Dose: 3 ml Aspirin (Ecotrin) 81 mg PO DAILY [facility] Last Admin: 06/14/16 09:51 Dose: 81 mg Famotidine (Pepcid) 20 mg PO HS [facility] Heparin Sodium (Porcine) (Heparin) 5,000 units SC Q8 YOLANDA PRN Reason: Protocol Last Admin: 06/15/16 05:52 Dose: 5,000 units Meropenem 1g/NS 100mL IVPB (Meropenem 1g/Ns 100ml Ivpb) 100 mls @ 100 mls/hr IVPB Q8 YOLANDA PRN Reason: Protocol Stop: 06/15/16 13:01 Last Admin: 06/15/16 05:52 Dose: 100 mls/hr Vancomycin HCl (Vancomycin 1gm) 250 mls @ 167 mls/hr IVPB Q12H [facility] PRN Reason: Protocol Stop: 06/22/16 09:01 Last Admin: 06/14/16 21:36 Dose: 167 mls/hr Metoprolol Tartrate (Lopressor) 12.5 mg PO BRKDIN [facility] Last Admin: 06/14/16 17:28 Dose: 12.5 mg Midodrine (Proamatine) 10 mg PO TID [facility] Last Admin: 06/14/16 18:13 Dose: 10 mg Ondansetron HCl (Zofran Inj) 4 mg IVP Q6H PRN PRN Reason: Nausea/Vomiting Last Admin: 06/11/16 17:35 Dose: 4 mg - Labs Labs: 06/15/16 05:00 06/15/16 05:00 PT 12.0 Seconds (9.9-11.8) H 06/09/16 06:46 INR 1.11 (0.93-1.08) H 06/09/16 06:46 APTT 31.2 Seconds (23.7-30.8) H 06/09/16 06:46 - Constitutional Appears: Non-toxic, No Acute Distress - Eye Exam Eye Exam: EOMI, PERRL - ENT Exam ENT Exam: Mucous Membranes Dry - Respiratory Exam Respiratory Exam: Clear to Ausculation Bilateral. absent: Rales, Rhonchi, Wheezes - Cardiovascular Exam Cardiovascular Exam: RRR, +S1, +S2 - GI/Abdominal Exam GI & Abdominal Exam: Distended, Soft, Normal Bowel Sounds. absent: Firm, Guarding, Rigid, Tenderness, Organomegaly Additional comments: RUQ drain in place - Extremities Exam Extremities Exam: absent: Pedal Edema - Neurological Exam Neurological Exam: Alert, Awake - Psychiatric Exam Psychiatric exam: Normal Affect, Normal Mood - Skin Skin Exam: Dry, Warm Assessment and Plan - Assessment and Plan (Free Text) Assessment: Patient is a 75yo male with PMHx significant for prostate cancer s/p brachytherapy, MDS, alzheimer's dementia who presented from nursing facility with abdominal pain, nausea and vomiting. -Sepsis with ESBL E coli, resolved -Acute cholangitis, resolved -Acalculous cholecystitis, resolved -Choledocolithiasis -Acute respiratory failure requiring mechanical ventilation, resolved and successfully extubated -Myelodysplastic syndrome -Alzheimer's dementia Plan: -S/P ERCP with CBD stent placement POD#6, PTC POD#8 -Patient continues to improve, no issues overnight; advance diet as tolerated -Will need repeat ERCP in 3 months for stent removal -IV abx as ordered - Merrem, Vancomycin -Will ultimately benefit from cholecystectomy, plan per surgery -No further recommendations at this time <Johnson Gary - Last Filed: 06/15/16 09:47> Objective - Vital Signs/Intake and Output Vital Signs (last 24 hours): Temp Pulse Resp BP Pulse Ox 98.6 F 81 16 123/82 100 06/15/16 08:00 06/15/16 08:32 06/15/16 08:00 06/15/16 08:32 06/15/16 08:00 Intake and Output: 06/15/16 06/15/16 06:59 18:59 Output Total 1060 Balance -1060 - Medications Medications: Current Medications Acetaminophen (Tylenol 325mg Tab) 650 mg PO Q8 PRN PRN Reason: Fever >100.4 F Last Admin: 06/15/16 00:04 Dose: 650 mg Acetylcysteine (Acetylcysteine 20%) 4 ml IH [id number] [facility] Last Admin: 06/15/16 07:33 Dose: 4 ml Albuterol/Ipratropium (Duoneb 3 Mg/0.5 Mg (3 Ml) Ud) 3 ml IH Q2H PRN PRN Reason: Shortness of Breath Albuterol/Ipratropium (Duoneb 3 Mg/0.5 Mg (3 Ml) Ud) 3 ml IH [id number] [facility] Last Admin: 06/15/16 07:33 Dose: 3 ml Aspirin (Ecotrin) 81 mg PO DAILY [facility] Last Admin: 06/15/16 08:34 Dose: 81 mg Famotidine (Pepcid) 20 mg PO HS [facility] Heparin Sodium (Porcine) (Heparin) 5,000 units SC Q8 YOLANDA PRN Reason: Protocol Last Admin: 06/15/16 05:52 Dose: 5,000 units Meropenem 1g/NS 100mL IVPB (Meropenem 1g/Ns 100ml Ivpb) 100 mls @ 100 mls/hr IVPB Q8 YOLANDA PRN Reason: Protocol Stop: 06/15/16 13:01 Last Admin: 06/15/16 05:52 Dose: 100 mls/hr Vancomycin HCl (Vancomycin 1gm) 250 mls @ 167 mls/hr IVPB Q12H YOLANDA PRN Reason: Protocol Stop: 06/22/16 09:01 Last Admin: 06/15/16 08:34 Dose: 167 mls/hr Metoprolol Tartrate (Lopressor) 12.5 mg PO BRKDIN [facility] Last Admin: 06/15/16 08:32 Dose: 12.5 mg Midodrine (Proamatine) 10 mg PO TID [facility] Last Admin: 06/14/16 18:13 Dose: 10 mg Ondansetron HCl (Zofran Inj) 4 mg IVP Q6H PRN PRN Reason: Nausea/Vomiting Last Admin: 06/11/16 17:35 Dose: 4 mg Polyethylene Glycol (Miralax) 17 gm PO DAILY YOLANDA - Labs Labs: 06/15/16 05:00 06/15/16 05:00 PT 12.0 Seconds (9.9-11.8) H 06/09/16 06:46 INR 1.11 (0.93-1.08) H 06/09/16 06:46 APTT 31.2 Seconds (23.7-30.8) H 06/09/16 06:46 Attending/Attestation - Attestation I have personally seen and examined this patient.: Yes I have fully participated in the care of the patient.: Yes I have reviewed all pertinent clinical information, including history, physical exam and plan: Yes Notes (Text): 06/15/16 09:44 I have seen and examined patient with GI fellow. He is seen sitting in bed eating breakfast, appears comfortable. No acute events overnight, he denies abdominal pain, nausea, vomiting. He has not had a bowel movement for past 3 days according to nursing staff. Tolerating PO liquid diet without difficulty. Review of vitals from today show low grade temperature. Prostate cancer s/p brachytherapy MDS Severe sepsis, cholangitis s/p PTC drain placement, ERCP s/p biliary stent placement Respiratory failure s/p intubation, now extubated - Advance diet to puree as tolerated - Continue with antibiotic therapy as per ID - LFTs trending down, continue to monitor - Follow up surgical recommendations regarding plan for cholecystectomy - Patient will require repeat ERCP within 3 months for stent removal. No ongoing GI issues will sign off case. Please reconsult as necessary, thank you.
--- NOTE | 2016-06-15 07:28 | CP.CCUPN ---
Addendum entered and electronically signed by Marcos Howard DO 06/15/16 10:24: Dispo: Tranfer to Med/Surg floor Original Note: <Marcos Howard - Last Filed: 06/15/16 10:14> CCU Subjective - Physician Review Subjective (Free Text): Pt s&e w ICU attending. Pt off levo and vasopressin. BP is good. Pt is off sedation. Pt is confortable. Denies F/C/N/V/D/CP/SOB. On NC 2L . Pt hasn't had BM in 4 days. Miralax order placed. CCU Objective - Vital Signs / Intake & Output Vital Signs (Last 4 hours): Vital Signs BP 06/15/16 06:45 133/74 Intake and Output (Last 8hrs): Intake & Output 06/14/16 06/15/16 06/15/16 22:59 06:59 14:59 Intake Total 700 Output Total 380 Balance 320 Intake: Oral 700 Output: Drainage 30 Right Upper Abdomen 30 Urine 350 Urethral (Tong) 350 Other: Voiding Method Diaper - Physical Exam Head: Positive for: Atraumatic, Normocephalic Pupils: Positive for: PERRL Extroacular Muscles: Positive for: EOMI Conjunctiva: Positive for: Normal Mouth: Positive for: Moist Mucous Membranes Pharnyx: Negative for: ERYTHEMA, EXUDATE, TONSILS ENLARGED Nose (External): Positive for: Other (2L NC ) Respiratory/Chest: Positive for: Decreased Breath Sounds (RLL base decreased BS) , Other (b/l crackles). Negative for: Respiratory Distress, Accessory Muscle Use Cardiovascular: Positive for: Regular Rate and Rhythm, Normal S1, S2. Negative for: Murmurs Abdomen: Positive for: Distention (Abdomen distended tympanitic and quiet with surgical scar), Other (Miguelina tube in place: SS fluids. Minimal output ). Negative for: Tenderness (rigid surgical abdomen), Normal Bowel Sounds, Rebound , Guarding Back: Positive for: Normal Inspection Upper Extremity: Positive for: Edema, Normal ROM. Negative for: Cyanosis Lower Extremity: Positive for: Edema, Swelling Neurological: Positive for: GCS=15, CN II-XII Intact, Speech Normal, Motor Func Grossly Intact Skin: Positive for: Warm, Dry, Other (generalized tinea infection ) Psychiatric: Negative for: Alert, Oriented x 3, Normal Insight - Medications Active Medications: Active Medications Generic Name Dose Route Start Last Admin Trade Name Freq PRN Reason Stop Dose Admin Acetaminophen 650 mg 06/06/16 15:35 06/15/16 00:04 Tylenol 325mg Tab PO 650 mg Q8 PRN Administration Fever >100.4 F Acetylcysteine 4 ml 06/12/16 08:00 06/15/16 01:07 Acetylcysteine 20% IH 4 ml [id number] YOLANDA Administration Albuterol/Ipratropium 3 ml 06/11/16 07:01 Duoneb 3 Mg/0.5 Mg (3 Ml) Ud IH Q2H PRN Shortness of Breath Albuterol/Ipratropium 3 ml 06/11/16 08:00 06/15/16 01:07 Duoneb 3 Mg/0.5 Mg (3 Ml) Ud IH 3 ml [id number] YOLANDA Administration Aspirin 81 mg 06/13/16 10:00 06/14/16 09:51 Ecotrin PO 81 mg DAILY YOLANDA Administration Famotidine 20 mg 06/15/16 22:00 Pepcid PO HS YOLANDA Heparin Sodium (Porcine) 5,000 units 06/13/16 09:00 06/15/16 05:52 Heparin SC 5,000 units Q8 YOLANDA Administration Protocol Meropenem 1g/NS 100mL IVPB 100 mls @ 100 mls/hr 06/09/16 09:24 06/15/16 05:52 Meropenem 1g/Ns 100ml Ivpb IVPB 06/15/16 13:01 100 mls/hr Q8 YOLANDA Administration Protocol Vancomycin HCl 250 mls @ 167 mls/hr 06/13/16 09:00 06/14/16 21:36 Vancomycin 1gm IVPB 06/22/16 09:01 167 mls/hr Q12H YOLANDA Administration Protocol Metoprolol Tartrate 12.5 mg 06/13/16 17:00 06/14/16 17:28 Lopressor PO 12.5 mg BRKDIN YOLANDA Administration Midodrine 10 mg 06/10/16 19:30 06/14/16 18:13 Proamatine PO 10 mg TID YOLANDA Administration Ondansetron HCl 4 mg 06/11/16 17:21 06/11/16 17:35 Zofran Inj IVP 4 mg Q6H PRN Administration Nausea/Vomiting - Patient Studies Lab Studies: Microbiology Studies 06/13/16 10:00 Blood Culture - Preliminary Blood NO GROWTH AFTER 24 HOURS 06/13/16 10:00 Blood Culture - Preliminary Blood NO GROWTH AFTER 24 HOURS 06/09/16 08:45 Blood Culture - Final Blood-Venous NO GROWTH AFTER 5 DAYS Gram Stain - Final TEST NOT PERFORMED 06/09/16 08:40 Blood Culture - Final Blood-Venous NO GROWTH AFTER 5 DAYS Gram Stain - Final TEST NOT PERFORMED 06/13/16 09:48 Urine Culture - Final Urine No Growth (<1,000 CFU/ML) Lab Studies 06/15/16 Range/Units 05:00 WBC 7.6 (4.5-11.0) 10^3/ul RBC 3.32 L (3.5-6.1) 10^6/uL Hgb 10.4 L (14.0-18.0) gm/dL Hct 31.1 L (42.0-52.0) % MCV 93.7 (80.0-105.0) fL MCH 31.3 (25.0-35.0) pg MCHC 33.4 (31.0-37.0) g/dl RDW 15.2 H (11.5-14.5) % Plt Count 120 (120.0-450.0) 10^3/uL MPV 11.3 H (7.0-11.0) fl Sodium 140 (132-148) mmol/L Potassium 3.6 (3.6-5.0) mmol/L Chloride 106 (98-107) mmol/L Carbon Dioxide 27 (21-33) mmol/L Anion Gap 11 (10-20) BUN 21 (7-21) mg/dL Creatinine 0.6 (0.5-1.4) mg/dL Est GFR ( Amer) > 60 Est GFR (Non-Af Amer) > 60 Random Glucose 155 H (70-110) mg/dL Calcium 8.4 (8.4-10.5) mg/dL Total Bilirubin 4.3 H (0.2-1.3) mg/dL AST 60 H (15-59) U/L ALT 47 (7-56) U/L Alkaline Phosphatase 152 H (38-133) U/L Total Protein 5.0 L (5.8-8.3) g/dL Albumin 2.6 L (3.0-4.8) g/dL Globulin 2.4 gm/dL Albumin/Globulin Ratio 1.1 (1.1-1.8) Laboratory Results - last 24 hr 06/15/16 05:00 WBC 7.6 RBC 3.32 L Hgb 10.4 L Hct 31.1 L MCV 93.7 MCH 31.3 MCHC 33.4 RDW 15.2 H Plt Count 120 MPV 11.3 H Sodium 140 Potassium 3.6 Chloride 106 Carbon Dioxide 27 Anion Gap 11 BUN 21 Creatinine 0.6 Est GFR ( Amer) > 60 Est GFR (Non-Af Amer) > 60 Random Glucose 155 H Calcium 8.4 Total Bilirubin 4.3 H AST 60 H ALT 47 Alkaline Phosphatase 152 H Total Protein 5.0 L Albumin 2.6 L Globulin 2.4 Albumin/Globulin Ratio 1.1 Review of Systems - Constitutional Constitutional: absent: Fever, Chills, Weakness - EENT Eyes: absent: Blurred Vision - Cardiovascular Cardiovascular: absent: Chest Pain, Chest Pain at Rest - Respiratory Respiratory: absent: Cough, Dyspnea, Hemoptysis, Dyspnea on Exertion, Wheezing - Gastrointestinal Gastrointestinal: Bloating. absent: Abdominal Pain, Belching, Cramping, Diarrhea, Dysphagia, Early Satiety Critical Care Progress Note - Ventilator Checklist Head of Bed 30 Degrees: Yes Daily Sedation Vacation: No - Nutrition Nutrition: Nutrition Category Date Time Status Liquid Diet [DIET] Diets 06/14/16 Lunch Ordered Assessment/Plan - Assessment and Plan (Free Text) Assessment: 75 yo M w h/o SBO, MDS, gastritis, Alzheimer's dementia Septic shcok 2/2 bacteremia and cholangitis : resolved s/p cholecystostomy tube s/p ERCP w stent Plan: Neuro: Mental status at baseline, h/o Alzheimer's dementia Maintain normothermia Tylenol PRN CV: maintain MAP>65 Monitor I/O ASA Midodrine Pulm: Respiratory Failure: improved. On NC O2 2L Maintain SpO2>90, PaO2>60 HOB>35 degrees Aspiration precautions Duoneb Mucolytic GI: s/p percutaneous cholecystostomy tube by IR. Output was bloody and purulent. Patient will keep tube for 4-6 weeks with BID flushes unless the gallbladder gets surgically removed earlier, as per IR recs s/p ERCP stent remove stent in [address] A/P without contrast shows distended gallbladder with evidence of gallbladder wall thickening/mild pericholecystic fluid, no calcified gallstones , constipation, scattered prominent retroperitoneal and mesenteric LNs, mild mesenteric inflammatory stranding. Continue Meropenem/vanco HIDA: GB and SB unvisualized in 4 hrs Pepcid Surgery following: No immediate surgical intervention at this time. GI following: Dysphagia diet Trend T-bili: trending down 4.3 today Endo: Maintain euglycemia 140-180 [place]keck ACHS Renal: Cr: 0.6. Urine output 1.7L/24hrs Continue to monitor renal function, I&Os Maintain - fluid balance ID: Septic shock 2/ acute cholecystitis v cholangitis : Improving No leukocytosis: 7.6K Afebrile Blood cultures significant for e-coli in 2 of 2 bottles Continue Meropenem/vanco ID following Preliminary urine culture shows no growth Tylenol for fever PRN Heme: Hb stable. No signs of bleeding. Continue to monitor. DVT/GI ppx: Pepcid, SCD, heparine sub Q PT/OT DW ICU attending <Dyllan Gusman MD H - Last Filed: 06/15/16 11:05> CCU Objective - Vital Signs / Intake & Output Vital Signs (Last 4 hours): Vital Signs Temp Pulse Resp BP Pulse Ox 06/15/16 09:00 76 24 115/77 91 L 06/15/16 08:32 81 123/82 06/15/16 08:00 98.6 F 79 23 111/71 94 L 06/15/16 07:21 83 24 95 06/15/16 07:18 70 06/15/16 07:05 75 24 Intake and Output (Last 8hrs): Intake & Output 06/14/16 06/15/16 06/15/16 22:59 06:59 14:59 Intake Total 700 Output Total 380 1060 Balance 320 -1060 Intake: Oral 700 Output: Drainage 30 Right Upper Abdomen 30 Urine 350 1060 Urethral (Tong) 350 1060 Other: Voiding Method Diaper Incontinent - Medications Active Medications: Active Medications Generic Name Dose Route Start Last Admin Trade Name Freq PRN Reason Stop Dose Admin Acetaminophen 650 mg 06/06/16 15:35 06/15/16 00:04 Tylenol 325mg Tab PO 650 mg Q8 PRN Administration Fever >100.4 F Acetylcysteine 4 ml 06/12/16 08:00 06/15/16 07:33 Acetylcysteine 20% IH 4 ml [id number] YOLANDA Administration Albuterol/Ipratropium 3 ml 06/11/16 07:01 Duoneb 3 Mg/0.5 Mg (3 Ml) Ud IH Q2H PRN Shortness of Breath Albuterol/Ipratropium 3 ml 06/11/16 08:00 06/15/16 07:33 Duoneb 3 Mg/0.5 Mg (3 Ml) Ud IH 3 ml [id number] YOLANDA Administration Aspirin 81 mg 06/13/16 10:00 06/15/16 09:53 Ecotrin PO 81 mg DAILY YOLANDA Administration Famotidine 20 mg 06/15/16 22:00 Pepcid PO HS YOLANDA Heparin Sodium (Porcine) 5,000 units 06/13/16 09:00 06/15/16 05:52 Heparin SC 5,000 units Q8 YOLANDA Administration Protocol Meropenem 1g/NS 100mL IVPB 100 mls @ 100 mls/hr 06/09/16 09:24 06/15/16 05:52 Meropenem 1g/Ns 100ml Ivpb IVPB 06/15/16 13:01 100 mls/hr Q8 YOLANDA Administration Protocol Vancomycin HCl 250 mls @ 167 mls/hr 06/13/16 09:00 06/15/16 08:34 Vancomycin 1gm IVPB 06/22/16 09:01 167 mls/hr Q12H YOLANDA Administration Protocol Metoprolol Tartrate 12.5 mg 06/13/16 17:00 06/15/16 08:32 Lopressor PO 12.5 mg BRKDIN YOLANDA Administration Midodrine 10 mg 06/10/16 19:30 06/15/16 10:58 Proamatine PO 10 mg TID YOLANDA Administration Ondansetron HCl 4 mg 06/11/16 17:21 06/11/16 17:35 Zofran Inj IVP 4 mg Q6H PRN Administration Nausea/Vomiting Polyethylene Glycol 17 gm 06/15/16 10:00 06/15/16 10:56 Miralax PO 17 gm DAILY YOLANDA Administration - Patient Studies Lab Studies: Microbiology Studies 06/13/16 10:00 Blood Culture - Preliminary Blood NO GROWTH AFTER 48 HOURS 06/13/16 10:00 Blood Culture - Preliminary Blood NO GROWTH AFTER 48 HOURS 06/09/16 08:45 Blood Culture - Final Blood-Venous NO GROWTH AFTER 5 DAYS Gram Stain - Final TEST NOT PERFORMED 06/09/16 08:40 Blood Culture - Final Blood-Venous NO GROWTH AFTER 5 DAYS Gram Stain - Final TEST NOT PERFORMED 06/13/16 09:48 Urine Culture - Final Urine No Growth (<1,000 CFU/ML) Lab Studies 06/15/16 Range/Units 05:00 WBC 7.6 (4.5-11.0) 10^3/ul RBC 3.32 L (3.5-6.1) 10^6/uL Hgb 10.4 L (14.0-18.0) gm/dL Hct 31.1 L (42.0-52.0) % MCV 93.7 (80.0-105.0) fL MCH 31.3 (25.0-35.0) pg MCHC 33.4 (31.0-37.0) g/dl RDW 15.2 H (11.5-14.5) % Plt Count 120 (120.0-450.0) 10^3/uL MPV 11.3 H (7.0-11.0) fl Sodium 140 (132-148) mmol/L Potassium 3.6 (3.6-5.0) mmol/L Chloride 106 (98-107) mmol/L Carbon Dioxide 27 (21-33) mmol/L Anion Gap 11 (10-20) BUN 21 (7-21) mg/dL Creatinine 0.6 (0.5-1.4) mg/dL Est GFR ( Amer) > 60 Est GFR (Non-Af Amer) > 60 Random Glucose 155 H (70-110) mg/dL Calcium 8.4 (8.4-10.5) mg/dL Total Bilirubin 4.3 H (0.2-1.3) mg/dL AST 60 H (15-59) U/L ALT 47 (7-56) U/L Alkaline Phosphatase 152 H (38-133) U/L Total Protein 5.0 L (5.8-8.3) g/dL Albumin 2.6 L (3.0-4.8) g/dL Globulin 2.4 gm/dL Albumin/Globulin Ratio 1.1 (1.1-1.8) Laboratory Results - last 24 hr 06/15/16 05:00 WBC 7.6 RBC 3.32 L Hgb 10.4 L Hct 31.1 L MCV 93.7 MCH 31.3 MCHC 33.4 RDW 15.2 H Plt Count 120 MPV 11.3 H Sodium 140 Potassium 3.6 Chloride 106 Carbon Dioxide 27 Anion Gap 11 BUN 21 Creatinine 0.6 Est GFR ( Amer) > 60 Est GFR (Non-Af Amer) > 60 Random Glucose 155 H Calcium 8.4 Total Bilirubin 4.3 H AST 60 H ALT 47 Alkaline Phosphatase 152 H Total Protein 5.0 L Albumin 2.6 L Globulin 2.4 Albumin/Globulin Ratio 1.1 Critical Care Progress Note - Nutrition Nutrition: Nutrition Category Date Time Status Liquid Diet [DIET] Diets 06/14/16 Lunch Ordered Pureed [Dysphagia/Modified Consistency Diet] [DIET] Diets 06/15/16 Lunch Ordered Attending/Attestation - Attestation I have personally seen and examined this patient.: Yes I have fully participated in the care of the patient.: Yes I have reviewed all pertinent clinical information: Yes Notes (Text): 06/15/16 11:03 75 y/o M with resolved Septic shock from Cholangitis. S/p C-Ostomy drain w/ minimal output. On Abx course x 14 days , no further cx positive. E.Coli bacteremia being treated as well. Off all vasopressors and I.V drips. Out of bed to chair. Current I7O's show net positive 7L. CXR confirms increased pulmonary vascular congestion . Lasix 40mg x 2 days given. Improved respiratory status and off HFNC currently. PT/OT needed. dispo to regular floor later today
--- NOTE | 2016-06-15 08:12 | CP.PCM.PN ---
Subjective - Date & Time of Evaluation Date of Evaluation: 06/15/16 Time of Evaluation: 07:00 - Subjective Subjective: General Surgery Dr. Krishnamurthy Pt S&E @bedside. NAEO. resting comfortably. denies pain, N/V. tolerating diet. Objective - Vital Signs/Intake and Output Vital Signs (last 24 hours): Temp Pulse Resp BP Pulse Ox 100.6 F H 75 22 123/82 88 L 06/15/16 00:04 06/15/16 07:00 06/15/16 07:00 06/15/16 07:00 06/15/16 06:00 Intake and Output: Selected Entries 06/14/16 06/15/16 18:00 09:00 Output, 30 Drainage Amount [Right Upper Abdomen] Output, Urine 1,060 Amount [ Urethral (Tong )] - Medications Medications: Current Medications Acetaminophen (Tylenol 325mg Tab) 650 mg PO Q8 PRN PRN Reason: Fever >100.4 F Last Admin: 06/15/16 00:04 Dose: 650 mg Acetylcysteine (Acetylcysteine 20%) 4 ml [id number] Last Admin: 06/15/16 07:33 Dose: 4 ml Albuterol/Ipratropium (Duoneb 3 Mg/0.5 Mg (3 Ml) Ud) 3 ml IH Q2H PRN PRN Reason: Shortness of Breath Albuterol/Ipratropium (Duoneb 3 Mg/0.5 Mg (3 Ml) Ud) 3 ml [id number] Last Admin: 06/15/16 07:33 Dose: 3 ml Aspirin (Ecotrin) 81 mg PO DAILY [facility] Last Admin: 06/14/16 09:51 Dose: 81 mg Famotidine (Pepcid) 20 mg PO [facility] Heparin Sodium (Porcine) (Heparin) 5,000 units SC Q8 [facility] PRN Reason: Protocol Last Admin: 06/15/16 05:52 Dose: 5,000 units Meropenem 1g/NS 100mL IVPB (Meropenem 1g/Ns 100ml Ivpb) 100 mls @ 100 mls/hr IVPB Q8 [facility] PRN Reason: Protocol Stop: 06/15/16 13:01 Last Admin: 06/15/16 05:52 Dose: 100 mls/hr Vancomycin HCl (Vancomycin 1gm) 250 mls @ 167 mls/hr IVPB Q12H [facility] PRN Reason: Protocol Stop: 06/22/16 09:01 Last Admin: 06/14/16 21:36 Dose: 167 mls/hr Metoprolol Tartrate (Lopressor) 12.5 mg PO [facility] Last Admin: 06/14/16 17:28 Dose: 12.5 mg Midodrine (Proamatine) 10 mg PO TID [facility] Last Admin: 06/14/16 18:13 Dose: 10 mg Ondansetron HCl (Zofran Inj) 4 mg IVP Q6H PRN PRN Reason: Nausea/Vomiting Last Admin: 06/11/16 17:35 Dose: 4 mg - Labs Labs: 06/15/16 05:00 06/15/16 05:00 Laboratory Tests 06/15/16 05:00 Calcium 8.4 Total Bilirubin 4.3 H AST 60 H ALT 47 Alkaline Phosphatase 152 H Total Protein 5.0 L Albumin 2.6 L Microbiology 06/13/16 09:48 Urine Urine Culture - Final No Growth (<1,000 CFU/ML) 06/13/16 10:00 Blood Blood Culture - Preliminary 06/13/16 10:00 Blood NO GROWTH AFTER 48 HOURS 06/13/16 10:00 Blood Blood Culture - Preliminary 06/13/16 10:00 Blood NO GROWTH AFTER 48 HOURS - Constitutional Appears: Toxic, No Acute Distress, Unkempt, Older Than Stated Age - Head Exam Head Exam: NORMAL INSPECTION - Eye Exam Eye Exam: Normal appearance - ENT Exam Additional comments: black eschar over bridge of nose dry blood-crusted lips - Respiratory Exam Respiratory Exam: NORMAL BREATHING PATTERN. absent: Accessory Muscle Use, Respiratory Distress - Cardiovascular Exam Cardiovascular Exam: REGULAR RHYTHM. absent: Bradycardia, Tachycardia - GI/Abdominal Exam GI & Abdominal Exam: Distended, Soft. absent: Guarding, Rebound Additional comments: rosalind tube in place - Neurological Exam Neurological Exam: Alert, Altered, Awake - Psychiatric Exam Psychiatric exam: Normal Affect, Normal Mood - Skin Skin Exam: Dry, Intact, Normal Color, Warm Assessment and Plan - Assessment and Plan (Free Text) Assessment: 75 y/o M w/ septic shock 2/2 cholangitis, s/p IR drainage and ERCP w. stent - T. bili trending down, cont to monitor - no immediate plans for OR - cont medical management - f/u GI recs Pt discussed w/ Dr. Raghu Larose DO PGY1
--- NOTE | 2016-06-15 08:27 | PN ---
DATE: 06/15/2016(630am--715am) SUBJECTIVE: The patient appears comfortable this morning. He is mildly short of breath, but in no acute distress. PHYSICAL EXAMINATION: VITAL SIGNS: Last temperature recorded is 100.6. Pulse 75. Respirations approximately 20/22. Blood pressure 133/74. Oxygen saturation on nasal cannula is 95%. HEENT: Normocephalic, atraumatic. No JVD. CARDIOVASCULAR: Positive S1, S2. Questionable S3 gallop. LUNGS: Decreased breath sounds at the bases. Minimal/less rhonchi. No wheezing. EXTREMITIES: Less edema. No cyanosis, no clubbing. Calves are nontender to palpation. GASTROINTESTINAL: Abdomen is soft. It is less distended and less tender to palpation. Bowel sounds are improved. SKIN: No acute rash. NEUROLOGIC: Limited at the present time. PERTINENT LABORATORY DATA: Chest x-ray was done this morning and reviewed. There is a definite decrease in the pulmonary edema changes. The alveolar consolidations have also decreased bilaterally. Arterial blood gas has been ordered for the morning - not done yet. IMPRESSION: 1. Respiratory failure. 2. Infiltrates/atelectasis - improved. 3. Pulmonary edema - improved. 4. Ascending cholangitis. 5. Acute cholecystitis. 6. Anemia. 7. Thrombocytopenia. 8. Triple vessel coronary artery disease. PLAN: The patient appears comfortable this morning. He is mildly short of breath, but in no acute distress. He states he is feeling much better overall. On physical exam, his bronchospasm is much less. In addition, the alveolar arterial gradient is also much less. The patient is now on nasal cannula with an oxygen saturation of 95%. I did review the x-ray as above. The x-ray shows a definite decrease in the pulmonary edema changes. Again, the patient may be third spacing fluids in the face of hypoalbuminemia. I will give 1 more dose of Lasix this morning to help mobilize the fluids. I would continue with the antibiotic coverage as per infectious disease. There are low-grade temperatures noted. The leukocytosis has now fully resolved. I will also continue with the chest percussion therapy and suctioning, and have the patient out of bed as much as possible. I would continue with the surgical and GI evaluations. Inputs are noted. Clinical status of the patient is significantly improved - compared to last week. However, again, the overall status/prognosis of this patient does remain guarded. I will discuss the above with the entire ICU team in the next few moments. I will also discuss the above with the attending physician. Medardo Whittaker MD cc: [id number] TT: 06/15/2016 08:26:44 Confirmation # [id number] Dictation # [id number] [email or web address]
[2016-06-15] MEDS: Vancomycin 1gm in NS 250ml 250 ML IVPB SCH ×2 (08:34→21:09)
--- NOTE | 2016-06-15 08:42 | RAD ---
HISTORY: f/u COMPARISON: 06/14/2016 FINDINGS: LUNGS: There is slight improvement in the vascular congestion and perihilar infiltrates. PLEURA: Right-sided effusion CARDIOVASCULAR: Normal. OSSEOUS STRUCTURES: No significant abnormalities. VISUALIZED UPPER ABDOMEN: Normal. OTHER FINDINGS: None. IMPRESSION: Improvement in vascular congestion and perihilar infiltrates
--- NOTE | 2016-06-15 08:42 | PN ---
DATE: 06/14/2016 CARDIOLOGY FOLLOWUP The patient is in a chair. He is comfortable without shortness of breath. PHYSICAL EXAMINATION: VITAL SIGNS: The blood pressure is 122/89. The heart rate is in the 80s. NECK: Negative JVD. LUNGS: Rhonchi noted. HEART: Reveals S1, S2. EXTREMITIES: Without edema. LABORATORIES: Hemoglobin is 10.2. White count is 8.8. BUN and creatinine are 21 and 0.7. IMPRESSION: 1. Sepsis. 2. Triple-vessel coronary artery disease. 3. Pneumonia. 4. Pulmonary hypertension. 5. Diabetes mellitus. PLAN: Given these findings, the patient is hemodynamically stable. The patient clinically, given hi s multiple issues including pneumonia and pulmonary hypertension, makes the clinical determination of whether the patient is in CHF difficult. That is the reason why we performed a cardiac catheterizat ion and measuring Tofte-Kandy catheter measurements, as well as left ventricle end-diastolic pressures. On both counts, his LVEDP is 8. His wedge is 8. The patient is not in left heart congestive heart failure. Given the patient's infection, there is no reason for diuretics at this time. We will dis continue diuretics. From a cardiac perspective, the patient can be transferred to telemetry. Janusz Landry MD cc: [id number] TT: 06/14/2016 09:37:09 Confirmation # [id number] Dictation # [id number] jn
--- NOTE | 2016-06-15 09:24 | CP.PCM.PN ---
Subjective - Date & Time of Evaluation Date of Evaluation: 06/15/16 Time of Evaluation: 08:50 - Subjective Subjective: Comfortable in bed, had low grade fever last night but currently afebrile, not in distress, less abdominal pain, not in distress. Objective - Vital Signs/Intake and Output Vital Signs (last 24 hours): Temp Pulse Resp BP Pulse Ox 98.6 F 80 16 123/82 100 06/15/16 08:00 06/15/16 08:00 06/15/16 08:00 06/15/16 08:00 06/15/16 08:00 - Medications Medications: Current Medications Acetaminophen (Tylenol 325mg Tab) 650 mg PO Q8 PRN PRN Reason: Fever >100.4 F Last Admin: 06/15/16 00:04 Dose: 650 mg Acetylcysteine (Acetylcysteine 20%) 4 ml IH [id number] [facility] Last Admin: 06/15/16 07:33 Dose: 4 ml Albuterol/Ipratropium (Duoneb 3 Mg/0.5 Mg (3 Ml) Ud) 3 ml IH Q2H PRN PRN Reason: Shortness of Breath Albuterol/Ipratropium (Duoneb 3 Mg/0.5 Mg (3 Ml) Ud) 3 ml IH [id number] [facility] Last Admin: 06/15/16 07:33 Dose: 3 ml Aspirin (Ecotrin) 81 mg PO DAILY [facility] Last Admin: 06/14/16 09:51 Dose: 81 mg Famotidine (Pepcid) 20 mg PO HS [facility] Heparin Sodium (Porcine) (Heparin) 5,000 units SC Q8 [facility] PRN Reason: Protocol Last Admin: 06/15/16 05:52 Dose: 5,000 units Meropenem 1g/NS 100mL IVPB (Meropenem 1g/Ns 100ml Ivpb) 100 mls @ 100 mls/hr IVPB Q8 [facility] PRN Reason: Protocol Stop: 06/15/16 13:01 Last Admin: 06/15/16 05:52 Dose: 100 mls/hr Vancomycin HCl (Vancomycin 1gm) 250 mls @ 167 mls/hr IVPB Q12H [facility] PRN Reason: Protocol Stop: 06/22/16 09:01 Last Admin: 06/14/16 21:36 Dose: 167 mls/hr Metoprolol Tartrate (Lopressor) 12.5 mg PO BRKDIN [facility] Last Admin: 06/14/16 17:28 Dose: 12.5 mg Midodrine (Proamatine) 10 mg PO TID [facility] Last Admin: 06/14/16 18:13 Dose: 10 mg Ondansetron HCl (Zofran Inj) 4 mg IVP Q6H PRN PRN Reason: Nausea/Vomiting Last Admin: 06/11/16 17:35 Dose: 4 mg - Labs Labs: 06/15/16 05:00 06/15/16 05:00 PT 12.0 Seconds (9.9-11.8) H 06/09/16 06:46 INR 1.11 (0.93-1.08) H 06/09/16 06:46 APTT 31.2 Seconds (23.7-30.8) H 06/09/16 06:46 - Constitutional Appears: Non-toxic, No Acute Distress - Head Exam Head Exam: NORMAL INSPECTION - ENT Exam ENT Exam: Mucous Membranes Moist - Neck Exam Neck Exam: absent: Lymphadenopathy, Meningismus - Respiratory Exam Respiratory Exam: Decreased Breath Sounds - Cardiovascular Exam Cardiovascular Exam: +S1, +S2 - GI/Abdominal Exam GI & Abdominal Exam: Soft, Tenderness (some tenderness noted on the right upper quadrant but it has decreased compared to previous days) Additional comments: right upper quadrant abdominal drain now with clearer fluid (compared to serosanguinous fluid from 2-3 days ago) Assessment and Plan - Assessment and Plan (Free Text) Plan: Assessment Septic shock S/P ventilator-dependent respiratory failure and acute renal failure from ESBL-producing multidrug resistant E. coli bacteremia probably from biliary tree infection (ascending cholangitis or acute cholecystitis) S/P abdominal drain placement into the biliary tree POD #8, S/P ERCP with biliary stent placement POD #6; patient continues to improve clinically Alzheimer's dementia history of hemolytic anemia prostate CA history of depression history of bowel obstruction history of E. coli bacteremia and sepsis probably biliary tree in origin History of Klebsiella UTI Plan Continue Meropenem (day 9) and Vancomycin (day 3); repeat blood cx, urine cx are negative will continue to continue to monitor clinically, trend WBC count and trend fever curve; Surgery currently has no plans for procedures Overall prognosis is poor
--- NOTE | 2016-06-15 09:50 | PN ---
DATE: 06/15/2016 The patient is comfortable, without shortness of breath. PHYSICAL EXAMINATION: VITAL SIGNS: Blood pressure is 123/82, the heart rate is in the 80s. NECK: Negative JVD. LUNGS: Decreased breath sounds bilaterally. HEART: Revealed S1, S2. EXTREMITIES: Without edema. LABORATORIES: Hemoglobin is 10.4. Chemistries: Glucose is 155, BUN and creatinine are 21 and 0.6. IMPRESSION: 1. Sepsis. 2. Pneumonia. 3. Triple vessel coronary artery disease. 4. Pulmonary hypertension. 5. Diabetes mellitus. Given these findings, I reemphasized that there is no evidence for the patient having congestive hear t failure. I believe Lasix is contraindicated and should not be given. The patient can be transferr ed to telemetry. Janusz Landry MD cc: [id number] TT: 06/15/2016 09:50:14 Confirmation # [id number] Dictation # [id number] en
--- NOTE | 2016-06-15 10:03 | PN ---
DATE: 06/15/2016 I saw the patient in the intensive care unit. He still has high-flow oxygen on nasally. He is alert . He is talking. I discussed this this morning with gastroenterology, and they agreed to increase h is diet. He is slowly improving. He does have the pigtail catheter still draining into the gallblad quynh, and he will need to have surgery eventually for his gallbladder before they can take out the pig tail catheter. MEDICATIONS: He is currently on acetylcysteine, DuoNeb, Ecotrin, heparin, Lopressor, Merrem, MiraLax , Pepcid, ProAmatine, Tylenol, vancomycin, and Zofran. He has SCDs on for his legs for compression. PHYSICAL EXAMINATION: VITAL SIGNS: He has a 98.6 temperature, 81 pulse, 123/82 blood pressure, 100% O2 sat on nasal cannul a, and he is on 2 liters, and there is 16 respiratory rate. HEAD: Atraumatic, normocephalic. His nose has a bridge erythema from the nasal mask. Throat is tan[address] st. NECK: Supple. HEART: Regular rate. LUNGS: Decreased breath sounds, but clear. ABDOMEN: Soft. He does have a pigtail catheter, positive bowel sounds. EXTREMITIES: No edema. LABORATORY DATA: He has 7.6 white count, 10.4 hemoglobin, 31.1 hematocrit with 120 platelets. Each day his labs are improving. He has a 140 sodium, potassium 3.6, BUN 21, creatinine 0.6. GFR is grea ter than 60. Sugar is 155. Calcium is 8.4. Total bili is 4.3. Each day the gallbladder issue is g etting better. AST is 60. ALT is 47, alk phos 152. Total protein is 5.0. He is being seen by infectious disease, GI, pulmonary, surgery, cardiology, battery mechanic. He has mult iple issues. He had septic shock, status post ventilator, respiratory failure, acute renal failure, resolving, extended-spectrum beta-lactamase producing multidrug resistant and Escherichia coli bacter emia from the biliary tree, ascending cholangitis, acute cholecystitis. He has a drain still in his gallbladder draining. He has got Alzheimer's dementia. The bottom line is he is improving. He is on IV antibiotics. I will discuss with surgery over when they can do a gallbladder surgery on him. Continue with aggressive treatment and care in the intensi ve care unit. He is definitely improving now. We will check his labs tomorrow. Sean Nicholson DO cc: [id number] TT: 06/15/2016 10:03:13 Confirmation # [id number] Dictation # [id number] [email or web address]
[2016-06-15] MEDS: POLYETHYLENE GLYCOL 3350 17 GM/Dose PACKET PO SCH (10:56)
[2016-06-15] MEDS ORDERED: Insulin Lispro 1 UNITS/0.01 ML SC STA (12:10)
[2016-06-15] MEDS ORDERED: Insulin Reg-LOW-Coverage SC SCH (16:30)
[2016-06-15] MEDS: Insulin Reg-LOW-Coverage SC SCH ×2 (18:49→22:06)
[2016-06-15 21:04] LABS: CYTOMEGALOVIRUS AB (IGM) <0.2 AI (< OR = 0.8)
[2016-06-16] MEDS: Albuterol-Ipratrop 3 mg / 0.5 (3 ml) UD IH SCH ×4 (02:35→20:12)
[2016-06-16] MEDS: Acetylcysteine 20% Inhal Soln (4ml) IH SCH ×4 (02:35→20:12)
[2016-06-16 05:29] LABS: HEMATOCRIT 31.3 % (42.0-52.0); MEAN CORPUSCULAR HEMOGLOBIN 31.8 pg (25.0-35.0); MEAN CORPUSCULAR HGB CONC 33.9 g/dl (31.0-37.0); MEAN PLATELET VOLUME 10.6 fl (7.0-11.0); WHITE BLOOD COUNT 8.1 10^3/ul (4.5-11.0)
[2016-06-16 05:51] LABS: ALB/GLOB RATIO 1.1 (1.1-1.8); ALKALINE PHOSPHATASE 182 U/L (38-133); ALT/SGPT 56 U/L (7-56); AST/SGOT 89 U/L (15-59); BILIRUBIN,TOTAL 4.2 mg/dL (0.2-1.3); BLOOD UREA NITROGEN 24 mg/dL (7-21); CALCIUM 8.4 mg/dL (8.4-10.5); CARBON DIOXIDE 30 mmol/L (21-33); CHLORIDE 101 mmol/L (98-107); GFR AFRICAN-AMERICAN > 60; GLUCOSE,RANDOM 149 mg/dL (70-110); POTASSIUM 3.6 mmol/L (3.6-5.0); SODIUM 137 mmol/L (132-148); TOTAL PROTEIN 5.3 g/dL (5.8-8.3)
[2016-06-16] MEDS: Insulin Reg-LOW-Coverage SC SCH ×4 (07:30→22:24)
--- NOTE | 2016-06-16 08:40 | RAD ---
HISTORY: follow up COMPARISON: 06/15/2016 FINDINGS: LUNGS: There is interval significant improvement in aeration of both lungs. The lungs are now clear. There is mild pulmonary venous congestion. PLEURA: There are probable trace pleural effusions. No pneumothorax. CARDIOVASCULAR: Normal. OSSEOUS STRUCTURES: No significant abnormalities. VISUALIZED UPPER ABDOMEN: Normal. OTHER FINDINGS: None. IMPRESSION: Interval significant improvement in congestive heart failure. Clear lungs with mild residual pulmonary venous congestion and probable trace pleural effusions with
[2016-06-16] MEDS: Vancomycin 1gm in NS 250ml 250 ML IVPB SCH ×2 (09:06→21:09)
[2016-06-16] MEDS: POLYETHYLENE GLYCOL 3350 17 GM/Dose PACKET PO SCH (09:06)
--- NOTE | 2016-06-16 10:03 | PN ---
DATE: 06/16/2016(625am--710am) PULMONARY NOTE The patient appears comfortable this morning. He is not short of breath at rest. OBJECTIVE: VITAL SIGNS: Temperature is 98.6, pulse 66, respirations 20, blood pressure 123 /72. Oxygen saturation on nasal cannula is 96%. HEENT: Normocephalic, atraumatic. No JVD. CARDIOVASCULAR: Positive S1, S2. Questionable S3 gallop. LUNGS: Improved breath sounds at the bases. Very minimal/less rhonchi. No wheezing. EXTREMITIES: Less edema. No cyanosis, no clubbing. Calves are nontender to palpation. GASTROINTESTINAL: Abdomen is soft. It is much less distended and tender to palpation. Bowel sounds are improved. SKIN: No acute rash. NEUROLOGIC: Limited at the present time. PERTINENT LABORATORY DATA: Chest x-ray was done this morning and reviewed. There is significant clearing of the pulmonary edema changes, as well as the bilateral infiltrates. CBC: White count 8.1, hemoglobin 10.6, hematocrit 31.3, platelets of 143. IMPRESSION: 1. Respiratory failure. 2. Infiltrates/atelectasis - resolving. 3. Pulmonary edema, resolving. 4. Ascending cholangitis. 5. Acute cholecystitis. 6. Anemia. 7. Thrombocytopenia - resolving. 8. Triple-vessel coronary artery disease. PLAN: The patient appears comfortable this morning. He is not short of breath at rest. He states he is feeling much better overall. I did discuss the case with the night nurse at length. The night nurse stated that the patient is doing very well overall. On physical exam, his bronchospasm continues to resolve. In addition, the alveolar arterial gradient also continues to resolve. The patient is now on nasal cannula with an oxygen saturation of 96%. I will continue with the current nebulizer treatments and Mucomyst for now. The patient is also receiving chest percussion therapy. I would continue with the antibiotic coverage, as per infectious disease. Temperatures have now fully resolved. Leukocytosis has also fully resolved. I would continue with the GI and surgical evaluations. Inputs are noted. Clinical status of the patient is significantly improved overall. However, again, the future status/ prognosis of this patient does remain guarded. I will discuss the above with the entire ICU team in the next few moments. I will also discuss the above with Dr. Nicholson later this morning. Medardo Whittaker MD cc: [id number] TT: 06/16/2016 10:02:18 Confirmation # [id number] Dictation # [id number] jn MTDD
--- NOTE | 2016-06-16 10:23 | PN ---
DATE: 06/16/2016 I saw the patient in the intensive care unit. He is resting comfortably. He slept well. No acute distress at this time. He is on oxygen, smiling. He tells me he is in no pain. PHYSICAL EXAMINATION: VITAL SIGNS: He has 98.6, 64 pulse, 22 respiratory rate, 123/72 blood pressure. HEENT: Head is atraumatic, normocephalic. There is some excoriation on his nose and his lips. He is comfortable. His throat is moist. HEART: Regular rate. LUNGS: Decreased breath sounds, but clear to auscultation. ABDOMEN: Soft, nontender. He has got a pigtail catheter in his gallbladder, which is draining. EXTREMITIES: Have no edema. MEDICATIONS: He is currently on acetylcysteine, DuoNeb, Ecotrin, heparin, insulin, Lopressor, MiraLax, Pepcid, ProAmatine, Tylenol, vancomycin, and Zofran. LABORATORY DATA: He has an 8.1 white count, 10.6 hemoglobin, 31.3 hematocrit with 143 platelets; that is the best they have been. Sodium 137, potassium 3.6. BUN 24, creatinine 0.6. GFR is greater than 60. Sugar is 1.9. Calcium is 8.4. Total bili is 4.2. AST is 89. ALT is 6, alk phos 182. Total protein is 5.3. He is being seen by multiple doctors - cardiology, infectious disease, GI, pulmonary. He has multiple issues - sepsis, pneumonia, triple-vessel coronary artery disease, pulmonary hypertension, diabetes, dementia. We will continue with aggressive treatment and care. A long discussion with the yesterday, went over his whole case with her at length. Hopefully, he will improve, get out of bed to chair, fix his heart, take out his gallbladder, finish the infection. Sean Nicholson DO cc: [id number] TT: 06/16/2016 10:23:21 Confirmation # [id number] Dictation # [id number] jn ALLYSON
--- NOTE | 2016-06-16 14:00 | CP.PCM.PN ---
Subjective - Date & Time of Evaluation Date of Evaluation: 06/16/16 Time of Evaluation: 13:57 - Subjective Subjective: Surgery: Dr. Krishnamurthy Pt seen and examined. Per nursing, pt removed chino and now has bleeding at the meatus. Pt remains slightly confused. No complaints of pain. No N/V. Objective - Vital Signs/Intake and Output Vital Signs (last 24 hours): Temp Pulse Resp BP Pulse Ox 98.9 F 64 25 H 126/69 94 L 06/16/16 08:00 06/16/16 12:00 06/16/16 11:00 06/16/16 11:00 06/16/16 11:00 Intake and Output: 06/16/16 06/16/16 06:59 18:59 Intake Total 650 Output Total 30 Balance 620 - Medications Medications: Current Medications Acetaminophen (Tylenol 325mg Tab) 650 mg PO Q8 PRN PRN Reason: Fever >100.4 F Last Admin: 06/15/16 00:04 Dose: 650 mg Acetylcysteine (Acetylcysteine 20%) 4 ml [facility]H [id number] [facility] Last Admin: 06/16/16 13:19 Dose: 4 ml Albuterol/Ipratropium (Duoneb 3 Mg/0.5 Mg (3 Ml) Ud) 3 ml IH Q2H PRN PRN Reason: Shortness of Breath Albuterol/Ipratropium (Duoneb 3 Mg/0.5 Mg (3 Ml) Ud) 3 ml [facility]H [id number] [facility] Last Admin: 06/16/16 13:19 Dose: 3 ml Aspirin (Ecotrin) 81 mg PO DAILY [facility] Last Admin: 06/16/16 09:05 Dose: 81 mg Famotidine (Pepcid) 20 mg PO HS [facility] Last Admin: 06/15/16 21:41 Dose: 20 mg Heparin Sodium (Porcine) (Heparin) 5,000 units SC Q8 [facility] PRN Reason: Protocol Last Admin: 06/16/16 13:53 Dose: 5,000 units Vancomycin HCl (Vancomycin 1gm) 250 mls @ 167 mls/hr IVPB Q12H [facility] PRN Reason: Protocol Stop: 06/22/16 09:01 Last Admin: 06/16/16 09:06 Dose: 167 mls/hr Insulin Human Regular (Humulin R Low) 0 units SC ACHS [facility] PRN Reason: Protocol Last Admin: 06/16/16 11:53 Dose: 1 units Metoprolol Tartrate (Lopressor) 12.5 mg PO [facility] Last Admin: 06/16/16 09:05 Dose: 12.5 mg Midodrine (Proamatine) 10 mg PO TID [facility] Last Admin: 06/16/16 13:53 Dose: 10 mg Ondansetron HCl (Zofran Inj) 4 mg IVP Q6H PRN PRN Reason: Nausea/Vomiting Last Admin: 06/11/16 17:35 Dose: 4 mg Polyethylene Glycol (Miralax) 17 gm PO DAILY [facility] Last Admin: 06/16/16 09:06 Dose: 17 gm - Labs Labs: 06/16/16 05:00 06/16/16 05:00 PT 12.0 Seconds (9.9-11.8) H 06/09/16 06:46 INR 1.11 (0.93-1.08) H 06/09/16 06:46 APTT 31.2 Seconds (23.7-30.8) H 06/09/16 06:46 - Constitutional Appears: Non-toxic, No Acute Distress, Chronically Ill - Head Exam Head Exam: ATRAUMATIC, NORMOCEPHALIC - Eye Exam Eye Exam: EOMI, Scleral icterus - ENT Exam ENT Exam: Mucous Membranes Dry Additional comments: scab on bridge of nose - Respiratory Exam Respiratory Exam: NORMAL BREATHING PATTERN. absent: Accessory Muscle Use, Respiratory Distress - GI/Abdominal Exam GI & Abdominal Exam: Soft. absent: Distended, Firm, Guarding, Rigid, Tenderness , Rebound Additional comments: RUQ cholecystostomy tube: 70cc/24hrs serous - Extremities Exam Extremities Exam: absent: Calf Tenderness, Pedal Edema - Neurological Exam Neurological Exam: Alert, Awake. absent: Oriented x3 Assessment and Plan - Assessment and Plan (Free Text) Assessment: 75M w. septic shock 2/2 cholangitis, s/p IR drainage and ERCP w. stent - T. bili stable, continue to monitor - pt will eventually need cholecystectomy, no immediate plans for OR at this time - cont medical management - will continue to follow - d/w attending Chhaya PGY2
[2016-06-16 14:54] LABS: CYTOMEGALOVIRUS AB (IGG) <0.91 (<0.91)
--- NOTE | 2016-06-16 15:09 | CP.PCM.PN ---
Subjective - Date & Time of Evaluation Date of Evaluation: 06/16/16 Time of Evaluation: 07:10 - Subjective Subjective: Patient is feeling better, afebrile overnight, not in distress, no abdominal pain. Objective - Vital Signs/Intake and Output Vital Signs (last 24 hours): Temp Pulse Resp BP Pulse Ox 98.9 F 58 L 26 H 129/68 65 L 06/16/16 08:00 06/16/16 14:00 06/16/16 13:12 06/16/16 13:01 06/16/16 13:01 Intake and Output: 06/16/16 06/16/16 06:59 18:59 Intake Total 650 Output Total 30 Balance 620 - Medications Medications: Current Medications Acetaminophen (Tylenol 325mg Tab) 650 mg PO Q8 PRN PRN Reason: Fever >100.4 F Last Admin: 06/15/16 00:04 Dose: 650 mg Acetylcysteine (Acetylcysteine 20%) 4 ml IH [id number] [facility] Last Admin: 06/16/16 13:19 Dose: 4 ml Albuterol/Ipratropium (Duoneb 3 Mg/0.5 Mg (3 Ml) Ud) 3 ml IH Q2H PRN PRN Reason: Shortness of Breath Albuterol/Ipratropium (Duoneb 3 Mg/0.5 Mg (3 Ml) Ud) 3 ml IH [id number] [facility] Last Admin: 06/16/16 13:19 Dose: 3 ml Aspirin (Ecotrin) 81 mg PO DAILY [facility] Last Admin: 06/16/16 09:05 Dose: 81 mg Famotidine (Pepcid) 20 mg PO HS [facility] Last Admin: 06/15/16 21:41 Dose: 20 mg Heparin Sodium (Porcine) (Heparin) 5,000 units SC Q8 [facility] PRN Reason: Protocol Last Admin: 06/16/16 13:53 Dose: 5,000 units Vancomycin HCl (Vancomycin 1gm) 250 mls @ 167 mls/hr IVPB Q12H [facility] PRN Reason: Protocol Stop: 06/22/16 09:01 Last Admin: 06/16/16 09:06 Dose: 167 mls/hr Insulin Human Regular (Humulin R Low) 0 units SC ACHS [facility] PRN Reason: Protocol Last Admin: 06/16/16 11:53 Dose: 1 units Metoprolol Tartrate (Lopressor) 12.5 mg PO BRKDIN [facility] Last Admin: 06/16/16 09:05 Dose: 12.5 mg Midodrine (Proamatine) 10 mg PO TID [facility] Last Admin: 06/16/16 13:53 Dose: 10 mg Ondansetron HCl (Zofran Inj) 4 mg IVP Q6H PRN PRN Reason: Nausea/Vomiting Last Admin: 06/11/16 17:35 Dose: 4 mg Polyethylene Glycol (Miralax) 17 gm PO DAILY [facility] Last Admin: 06/16/16 09:06 Dose: 17 gm - Labs Labs: 06/16/16 05:00 06/16/16 05:00 PT 12.0 Seconds (9.9-11.8) H 06/09/16 06:46 INR 1.11 (0.93-1.08) H 06/09/16 06:46 APTT 31.2 Seconds (23.7-30.8) H 06/09/16 06:46 - Constitutional Appears: Non-toxic, No Acute Distress - Head Exam Head Exam: NORMAL INSPECTION - Neck Exam Neck Exam: absent: Lymphadenopathy, Meningismus - Respiratory Exam Respiratory Exam: Decreased Breath Sounds - Cardiovascular Exam Cardiovascular Exam: +S1, +S2 - GI/Abdominal Exam GI & Abdominal Exam: Soft. absent: Tenderness Additional comments: right upper qudarant abdominal drain with decreasing drainage; fluid is much clearer now Assessment and Plan - Assessment and Plan (Free Text) Plan: Assessment Septic shock S/P ventilator-dependent respiratory failure and acute renal failure from ESBL-producing multidrug resistant E. coli bacteremia probably from biliary tree infection (ascending cholangitis or acute cholecystitis) S/P abdominal drain placement into the biliary tree POD #9, S/P ERCP with biliary stent placement POD #7; patient continues to improve clinically Alzheimer's dementia history of hemolytic anemia prostate CA history of depression history of bowel obstruction history of E. coli bacteremia and sepsis probably biliary tree in origin History of Klebsiella UTI Plan Continue Meropenem (day 10) and Vancomycin (day 4); repeat blood cx, urine cx are negative ;repeat blood cx negative, will d/c Vancomycin; will target 14 days of Merrem will continue to continue to monitor clinically, trend WBC count (has normalized ) and trend fever curve; Surgery currently has no plans for procedures currently
[2016-06-16] MEDS: Meropenem 1 GM in Sodium Chloride 0.9% 100 ML IVPB SCH ×2 (15:31→22:12)
[2016-06-17] MEDS: Albuterol-Ipratrop 3 mg / 0.5 (3 ml) UD IH SCH ×4 (01:16→20:00)
[2016-06-17] MEDS: Acetylcysteine 20% Inhal Soln (4ml) IH SCH ×4 (01:16→20:00)
[2016-06-17] MEDS: Meropenem 1 GM in Sodium Chloride 0.9% 100 ML IVPB SCH (05:52)
[2016-06-17 06:33] LABS: HEMATOCRIT 30.3 % (42.0-52.0); MEAN CELL VOLUME 94.1 fL (80.0-105.0); MEAN CORPUSCULAR HEMOGLOBIN 31.4 pg (25.0-35.0); MEAN CORPUSCULAR HGB CONC 33.3 g/dl (31.0-37.0); MEAN PLATELET VOLUME 11.1 fl (7.0-11.0); RED CELL DISTRIBUTION WIDTH 14.7 % (11.5-14.5); WHITE BLOOD COUNT 6.8 10^3/ul (4.5-11.0)
[2016-06-17 06:50] LABS: ALKALINE PHOSPHATASE 194 U/L (38-133); ALT/SGPT 68 U/L (7-56); AST/SGOT 98 U/L (15-59); BILIRUBIN,TOTAL 3.1 mg/dL (0.2-1.3); BLOOD UREA NITROGEN 22 mg/dL (7-21); CALCIUM 8.1 mg/dL (8.4-10.5); CARBON DIOXIDE 26 mmol/L (21-33); CHLORIDE 103 mmol/L (98-107); GFR AFRICAN-AMERICAN > 60; GLUCOSE,RANDOM 133 mg/dL (70-110); POTASSIUM 3.8 mmol/L (3.6-5.0); SODIUM 137 mmol/L (132-148); TOTAL PROTEIN 5.1 g/dL (5.8-8.3)
[2016-06-17] MEDS: Insulin Reg-LOW-Coverage SC SCH ×4 (07:30→22:10)
--- NOTE | 2016-06-17 07:51 | PN ---
DATE: 06/17/2016 SUBJECTIVE: The patient appears very comfortable at rest. He is not short of breath. PHYSICAL EXAMINATION: VITAL SIGNS: Temperature is 97.0, pulse 57, respirations 18/20, blood pressure 123/75. Oxygen saturation on nasal cannula is 96%. HEENT: Normocephalic, atraumatic. No JVD. CARDIOVASCULAR: Positive S1, S2. No S3 gallop. LUNGS: Better breath sounds at the bases. Very minimal/less rhonchi. No wheezing. EXTREMITIES: Less edema. No cyanosis, no clubbing. Calves are nontender to palpation. GASTROINTESTINAL: Abdomen is soft. It is much less distended and much less tender to palpation. Bowel sounds are improved. SKIN: No acute rash. NEUROLOGIC: Limited at the present time. IMPRESSION: 1. Respiratory failure. 2. Infiltrates/atelectasis -- resolved. 3. Pulmonary edema -- resolved. 4. Ascending cholangitis. 5. Acute cholecystitis. 6. Anemia. 7. Triple vessel coronary artery disease. PLAN: The patient appears very comfortable this morning. He is not short of breath at rest. Oxygen saturation on nasal cannula is 96%. On physical exam, there is less bronchospasm noted. In addition, there is a significant decrease in the alveolar-arterial gradient. I will continue with the current nebulizer treatments, and chest percussion therapy. I would continue with the antibiotic coverage as per infectious disease. Temperatures have resolved. The leukocytosis has also resolved. I would continue with the GI and surgical evaluations. Inputs are noted. Clinical status of the patient is significantly improved -- compared to last week. However, again, the overall status/prognosis of this patient remains guarded. I will discuss the above with Dr. Nicholson. Medardo Whittaker MD cc: [phone] TT: 06/17/2016 07:50:24 Confirmation # [id number] Dictation # [id number] en MTDD
--- NOTE | 2016-06-17 08:13 | PN ---
DATE: 06/17/2016 The patient is chest pain free. He is awake. PHYSICAL EXAMINATION: VITAL SIGNS: Blood pressure is 123/75, the heart rate is in the 60s, normal sinus rhythm. NECK: Negative JVD. LUNGS: Without rales. HEART: Reveals S1, S2. EXTREMITIES: Without edema. LABORATORIES: Glucose is 133, potassium is 3.8. The white count is normal with a hemoglobin of 10.1 . IMPRESSION: 1. Pneumonia. 2. Triple vessel coronary artery disease. 3. Pulmonary hypertension. 4. Diabetes mellitus. Given these findings, we will arrange for outpatient multivessel percutaneous transluminal coronary a ngioplasty versus coronary artery bypass surgery with the patient once his infection is under control . Janusz Landry MD cc: [id number] TT: 06/17/2016 08:13:12 Confirmation # [id number] Dictation # [id number] en
[2016-06-17] MEDS: Vancomycin 1gm in NS 250ml 250 ML IVPB SCH ×2 (08:26→22:09)
--- NOTE | 2016-06-17 08:31 | PN ---
DATE: 06/17/2016 He is now out of the intensive care unit. He is in room 260, which is telemetry. He is alert, quite confused. He pulled his Tong catheter out last night and has been peeing blood. I will call the steph cartwrightogist in to evaluate that. He is pleasant at this time. He was urinating on the neighbor's bed. There is nobody in that bed thank God. He is on acetylcysteine, DuoNeb, Ecotrin, heparin, insulin, Lopressor, Merrem IV, MiraLax, Pepcid, Pr oAmatine, Tylenol, vancomycin, and Zofran. PHYSICAL EXAMINATION: VITAL SIGNS: Temp 97, 57 pulse, 123/75 blood pressure, 20 respiratory rate, 96% O2 sat on nasal wing geremias. HEENT: His head is atraumatic, normocephalic. He does have nasal and lip black eschar from rubbing of pressures from masks. HEART: Regular rate. LUNGS: Decreased breath sounds. Mild upper airway congestion. He refuses to have it suctioned. He is coughing it up. He is on nebulizer treatments. ABDOMEN: Soft, nontender, positive bowel sounds. EXTREMITIES: Have no edema. LABORATORIES: He has a 6.8 white count, 10.1 hemoglobin, 30.3 hematocrit with 177 platelets. He has a 137 sodium, potassium 3.8, BUN 22, creatinine 0.7, GFR is greater than 60, sugar is 131, calcium i s 8.1, total bilirubin is 3.1, AST is 98, ALT is 68, alkaline phosphatase 194, total protein is 5.1. He still has his pigtail drain in place and it is draining. He is being seen by pulmonary, infectiou s disease, surgery, cardiology. He has so many issues and now he has blood in the urine from pulling out his Tong catheter. He was septic shock, status post ventilator dependent respiratory failure, acute renal failure, exten ded-spectrum beta-lactamase producing multidrug resistant Escherichia coli bacteremia, biliary tree i nfection, cholecystitis. He has a pigtail stent into the gallbladder. He is going to need to have t hat gallbladder out. This is all besides his dementia, history of hemolytic anemia, prostate cancer, depression, so he is on IV antibiotics. He is going to need to have that gallbladder removed. I wi ll discuss that with surgery, if they have any plans to do that at this time. I will get urology in for the hematuria. We will check his labs tomorrow. Sean Nicholson DO cc: [id number] TT: 06/17/2016 08:30:33 Confirmation # [id number] Dictation # [id number] en
[2016-06-17] MEDS: POLYETHYLENE GLYCOL 3350 17 GM/Dose PACKET PO SCH (10:01)
--- NOTE | 2016-06-17 11:40 | CP.PCM.PN ---
Subjective - Date & Time of Evaluation Date of Evaluation: 06/17/16 Time of Evaluation: 08:30 - Subjective Subjective: Afebrile overnight, not in distress, improved abdominal pain, no nausea. Objective - Vital Signs/Intake and Output Vital Signs (last 24 hours): Temp Pulse Resp BP Pulse Ox 97 F L 57 L 20 123/75 96 06/17/16 06:00 06/17/16 06:00 06/17/16 06:00 06/17/16 06:00 06/17/16 06:00 Intake and Output: 06/17/16 06/17/16 06:59 18:59 Intake Total 450 Output Total 200 Balance 250 - Medications Medications: Current Medications Acetaminophen (Tylenol 325mg Tab) 650 mg PO Q8 PRN PRN Reason: Fever >100.4 F Last Admin: 06/15/16 00:04 Dose: 650 mg Acetylcysteine (Acetylcysteine 20%) 4 ml IH [id number] [facility] Last Admin: 06/17/16 07:38 Dose: 4 ml Albuterol/Ipratropium (Duoneb 3 Mg/0.5 Mg (3 Ml) Ud) 3 ml IH Q2H PRN PRN Reason: Shortness of Breath Albuterol/Ipratropium (Duoneb 3 Mg/0.5 Mg (3 Ml) Ud) 3 ml IH [id number] [facility] Last Admin: 06/17/16 07:39 Dose: 3 ml Aspirin (Ecotrin) 81 mg PO DAILY [facility] Last Admin: 06/16/16 09:05 Dose: 81 mg Famotidine (Pepcid) 20 mg PO HS [facility] Last Admin: 06/16/16 22:12 Dose: 20 mg Heparin Sodium (Porcine) (Heparin) 5,000 units SC Q8 [facility] PRN Reason: Protocol Last Admin: 06/17/16 06:54 Dose: 5,000 units Vancomycin HCl (Vancomycin 1gm) 250 mls @ 167 mls/hr IVPB Q12H [facility] PRN Reason: Protocol Stop: 06/22/16 09:01 Last Admin: 06/16/16 21:09 Dose: 167 mls/hr Meropenem 1g/NS 100mL IVPB (Meropenem 1g/Ns 100ml Ivpb) 100 mls @ 100 mls/hr IVPB Q8 [facility] Stop: 04/04/17 15:16 Insulin Human Regular (Humulin R Low) 0 units SC ACHS [facility] PRN Reason: Protocol Last Admin: 06/17/16 07:30 Dose: Not Given Metoprolol Tartrate (Lopressor) 12.5 mg PO BRKDIN [facility] Last Admin: 06/16/16 17:45 Dose: 12.5 mg Midodrine (Proamatine) 10 mg PO TID [facility] Last Admin: 06/16/16 17:45 Dose: 10 mg Ondansetron HCl (Zofran Inj) 4 mg IVP Q6H PRN PRN Reason: Nausea/Vomiting Last Admin: 06/11/16 17:35 Dose: 4 mg Polyethylene Glycol (Miralax) 17 gm PO DAILY [facility] Last Admin: 06/16/16 09:06 Dose: 17 gm - Labs Labs: 06/17/16 05:20 06/17/16 05:20 PT 12.0 Seconds (9.9-11.8) H 06/09/16 06:46 INR 1.11 (0.93-1.08) H 06/09/16 06:46 APTT 31.2 Seconds (23.7-30.8) H 06/09/16 06:46 - Constitutional Appears: Non-toxic, No Acute Distress - Head Exam Head Exam: NORMAL INSPECTION - Neck Exam Neck Exam: absent: Lymphadenopathy, Meningismus - Respiratory Exam Respiratory Exam: Decreased Breath Sounds - Cardiovascular Exam Cardiovascular Exam: +S1, +S2 - GI/Abdominal Exam GI & Abdominal Exam: Soft. absent: Tenderness Additional comments: right upper quadrant abdominal pain with clear yellowish fluid Assessment and Plan - Assessment and Plan (Free Text) Plan: Assessment Septic shock S/P ventilator-dependent respiratory failure and acute renal failure from ESBL-producing multidrug resistant E. coli bacteremia probably from biliary tree infection (ascending cholangitis or acute cholecystitis) S/P abdominal drain placement into the biliary tree POD #10, S/P ERCP with biliary stent placement POD #8; patient continues to improve clinically Alzheimer's dementia history of hemolytic anemia prostate CA history of depression history of bowel obstruction history of E. coli bacteremia and sepsis probably biliary tree in origin History of Klebsiella UTI Plan Continue Meropenem (day 11);repeat blood cx, urine cx are negative ;repeat blood cx negative; will target 14 days of Merrem will continue to continue to monitor clinically, trend WBC count (has normalized ) and trend fever curve; Surgery currently has no plans for procedures currently
--- NOTE | 2016-06-17 12:10 | CP.PCM.PN ---
Subjective - Date & Time of Evaluation Date of Evaluation: 06/17/16 Time of Evaluation: 11:00 - Subjective Subjective: General Surgery Dr. Krishnamurthy Pt S&E @bedside. NAEO. tolerating pureed diet. denies N/V, abd pain. (+)BM/ Flatus Objective - Vital Signs/Intake and Output Vital Signs (last 24 hours): Temp Pulse Resp BP Pulse Ox 97.6 F 55 L 18 127/78 96 06/17/16 11:49 06/17/16 11:49 06/17/16 11:49 06/17/16 11:49 06/17/16 06:00 Intake and Output: 06/17/16 06/17/16 06:59 18:59 Intake Total 450 Output Total 200 Balance 250 - Medications Medications: Current Medications Acetaminophen (Tylenol 325mg Tab) 650 mg PO Q8 PRN PRN Reason: Fever >100.4 F Last Admin: 06/15/16 00:04 Dose: 650 mg Acetylcysteine (Acetylcysteine 20%) 4 ml IH [id number] [facility] Last Admin: 06/17/16 07:38 Dose: 4 ml Albuterol/Ipratropium (Duoneb 3 Mg/0.5 Mg (3 Ml) Ud) 3 ml IH Q2H PRN PRN Reason: Shortness of Breath Albuterol/Ipratropium (Duoneb 3 Mg/0.5 Mg (3 Ml) Ud) 3 ml IH [id number] [facility] Last Admin: 06/17/16 07:39 Dose: 3 ml Aspirin (Ecotrin) 81 mg PO DAILY [facility] Last Admin: 06/17/16 10:01 Dose: 81 mg Famotidine (Pepcid) 20 mg PO HS [facility] Last Admin: 06/16/16 22:12 Dose: 20 mg Heparin Sodium (Porcine) (Heparin) 5,000 units SC Q8 [facility] PRN Reason: Protocol Last Admin: 06/17/16 06:54 Dose: 5,000 units Vancomycin HCl (Vancomycin 1gm) 250 mls @ 167 mls/hr IVPB Q12H [facility] PRN Reason: Protocol Stop: 06/22/16 09:01 Last Admin: 06/17/16 08:26 Dose: 167 mls/hr Meropenem 1g/NS 100mL IVPB (Meropenem 1g/Ns 100ml Ivpb) 100 mls @ 100 mls/hr IVPB Q8 [facility] Stop: 06/23/16 15:16 Insulin Human Regular (Humulin R Low) 0 units SC ACHS [facility] PRN Reason: Protocol Last Admin: 06/17/16 07:30 Dose: Not Given Metoprolol Tartrate (Lopressor) 12.5 mg PO BRKDIN [facility] Last Admin: 06/17/16 08:25 Dose: 12.5 mg Midodrine (Proamatine) 10 mg PO TID [facility] Last Admin: 06/17/16 10:01 Dose: 10 mg Ondansetron HCl (Zofran Inj) 4 mg IVP Q6H PRN PRN Reason: Nausea/Vomiting Last Admin: 06/11/16 17:35 Dose: 4 mg Polyethylene Glycol (Miralax) 17 gm PO DAILY [facility] Last Admin: 06/17/16 10:01 Dose: 17 gm - Labs Labs: 06/17/16 05:20 06/17/16 05:20 Laboratory Tests 06/17/16 05:20 Calcium 8.1 L Total Bilirubin 3.1 H AST 98 H ALT 68 H Alkaline Phosphatase 194 H Total Protein 5.1 L Albumin 2.6 L Microbiology 06/15/16 09:15 Blood-Venous Blood Culture - Preliminary 06/15/16 09:15 Blood-Venous NO GROWTH AFTER 48 HOURS 06/15/16 09:15 Blood-Venous Blood Culture - Preliminary 06/15/16 09:15 Blood-Venous NO GROWTH AFTER 48 HOURS - Constitutional Appears: Non-toxic, No Acute Distress, Confused - Head Exam Head Exam: NORMAL INSPECTION - Eye Exam Eye Exam: Normal appearance - ENT Exam Additional comments: dried blood/brown discoloration to lips eschar over bridge of nose - Respiratory Exam Respiratory Exam: NORMAL BREATHING PATTERN. absent: Accessory Muscle Use, Respiratory Distress - GI/Abdominal Exam GI & Abdominal Exam: Distended (minimal), Soft. absent: Guarding, Tenderness, Rebound Additional comments: rosalind tube in place. dressing c/d/i - Exam Additional comments: gross hematuria in urinal and on bed sheets - Neurological Exam Neurological Exam: Alert, Awake - Psychiatric Exam Psychiatric exam: Normal Affect, Normal Mood - Skin Skin Exam: Dry, Intact, Normal Color, Warm Assessment and Plan - Assessment and Plan (Free Text) Assessment: 75 y/o M w/ septic shock 2/2 cholangitis, s/p IR drainage and ERCP w. stent - cont to monitor T. bili - no immediate plans for OR at this time - f/u cardiology - cont medical management - will continue to follow Pt discussed w/ Dr. Raghu Larose DO PGY1
[2016-06-17] MEDS: Meropenem 1g/NS 100mL IVPB 100 ML IVPB SCH ×2 (14:15→22:08)
[2016-06-17] MEDS ORDERED: Bacitracin 500 Units/gm Oint Foilpak UD ONE (14:20)
[2016-06-17 18:18] VITALS: RESP 20
--- NOTE | 2016-06-17 20:18 | CON ---
DATE: 06/17/2016 CHIEF COMPLAINT: Gross hematuria. HISTORY OF PRESENT ILLNESS: This is a 75-year-old male who is a prison resident. The patient was sent to [facility] with nausea, vomiting, and abdominal pain. The patient has been i n the [facility] since 06/06. He underwent placement of a cholecystotomy tube. He has had sepsis with ESBL. He has a history of prostate cancer, Alzheimer's dementia. During his hospital admission the patient pulled his Tong catheter out yesterday with the balloon in flated. Since that time, he had some gross bleeding from the penis. He has been voiding without dif ficulty. A recent bladder scan showed he was emptying well, with a postvoid residual of about 100 mL . A consultation was then requested. PAST MEDICAL HISTORY: Significant for Alzheimer's dementia, hemolytic anemia, prostate cancer, sepsi s, cholecystitis. Coronary artery disease. MEDICATIONS: Currently include Mucomyst, DuoNeb, Ecotrin, subQ heparin, insulin, Lopressor, meropene m, MiraLax, Pepcid, midodrine, Tylenol, vancomycin, and Zofran. ALLERGIES: ROCEPHIN. FAMILY HISTORY: Noncontributory. SOCIAL HISTORY: No smoking or ETOH use. A prison resident. REVIEW OF SYSTEMS: This is obtained from the chart and the family. The patient is awake and alert, although not answering questions appropriately. Review of systems is positive for abdominal pain and gross hematuria, nausea, vomiting, urinary incon tinence. The patient reports no current chest pain or shortness of breath. Per family, he has had s ome coughing, nonproductive. NEUROLOGIC: He has difficulty ambulating, positive dementia. Other systems are negative. On physical exam, the patient is awake and alert. He is lying in his hospital bed. He is in no acut e distress. He is afebrile with a temp of 97.3, pulse 57, and BP 122/73, respirations 20. NECK: Supple. There is no obvious adenopathy. EXAMINATION OF THE CHEST: Reveals a normal inspiratory effort. CARDIAC EXAMINATION: Shows positive S1, S2. There is no peripheral edema noted. On abdominal exam the abdomen is soft, it is mildly tender, mildly distended. There is a drainage tu be noted exiting from the right mid-quadrant. There is no rebound or guarding. There is no costover tebral angle tenderness. GENITOURINARY: Phallus is normal. There is some dried blood on the diaper, but no active urethral b leeding noted. Scrotum is normal, testes bilaterally descended, nontender, no masses. Epididymides are normal. EXTREMITIES: The patient has a poor grooming with extremely long fingernails. There is no cyanosis or edema noted. On laboratory exam, WBC count 6.8. GFR is greater than 60. PSA 0.9 from 02/2016. RADIOLOGIC EXAMINATION: The patient had a CT scan of the abdomen and pelvis on 06/07. There is no m ention of any findings, as the CT was for the cholecystotomy catheter placement. The patient had an abdominopelvic CT on 06/06 which showed no hydronephrosis or obstructing stones in the kidneys. Bladder had numerous urinary bladder diverticula. There was an enlarged prostate with some adjacent surgical clips, atrophic pancreas, distended gallbladder with thickening and perichole cystic fluid. Microbiology showed blood cultures to be growing ESBL E. coli. Urine from 06/06 had n o growth. IMPRESSION AND PLAN: This is a 75-year-old male with a history of cholecystitis and sepsis who had p lacement of a percutaneous cholecystotomy tube. Urologically, the patient has gross hematuria which is from Tong trauma. The patient traumatically removed his Tong catheter with the balloon inflated . Given the patient's current status, and the fact that he will likely pulled the Tong catheter out again, I would leave it out at this point, as he is not actively bleeding. He is voiding adequately . His GFR is normal. I would continue treatment of his other medical issues. His prostate cancer appears to be well controlled, as his recent PSA was 0.9. We will need to review his office records, as it does not appear that he had a radioactive seed implant, as seed were not s een on the CT scan. Likely he had IMRT. Urologically, the patient will need to be followed periodically. If he is having difficulty voiding the Tong catheter should be replaced. However, it will be a nidus for infection at this time, and gi dc the patient's history, he will likely pull the Tong catheter out again. Thank you for allowing us to participate in the care of this patient. We will follow him with you. Zach Leach MD cc: [phone] TT: 06/17/2016 20:17:50 Confirmation # [id number] Dictation # [id number] jn
[2016-06-18] MEDS: Albuterol-Ipratrop 3 mg / 0.5 (3 ml) UD IH SCH ×2 (02:30→08:16)
[2016-06-18] MEDS: Acetylcysteine 20% Inhal Soln (4ml) IH SCH ×2 (02:30→08:16)
[2016-06-18] MEDS: Meropenem 1g/NS 100mL IVPB 100 ML IVPB SCH (05:47)
[2016-06-18 06:19] VITALS: BP 113/62; PULSE 55; TEMP 97.4; O2SAT 92
[2016-06-18 07:01] LABS: HEMATOCRIT 29.6 % (42.0-52.0); MEAN CELL VOLUME 93.1 fL (80.0-105.0); MEAN CORPUSCULAR HEMOGLOBIN 31.1 pg (25.0-35.0); MEAN CORPUSCULAR HGB CONC 33.4 g/dl (31.0-37.0); MEAN PLATELET VOLUME 10.5 fl (7.0-11.0); RED CELL DISTRIBUTION WIDTH 14.2 % (11.5-14.5); WHITE BLOOD COUNT 6.5 10^3/ul (4.5-11.0)
[2016-06-18 07:14] LABS: ALB/GLOB RATIO 1.1 (1.1-1.8); ALKALINE PHOSPHATASE 177 U/L (38-133); ALT/SGPT 71 U/L (7-56); AST/SGOT 81 U/L (15-59); BILIRUBIN,TOTAL 2.8 mg/dL (0.2-1.3); BLOOD UREA NITROGEN 16 mg/dL (7-21); CARBON DIOXIDE 25 mmol/L (21-33); CHLORIDE 103 mmol/L (98-107); GFR AFRICAN-AMERICAN > 60; GLUCOSE,RANDOM 133 mg/dL (70-110); POTASSIUM 3.6 mmol/L (3.6-5.0); SODIUM 133 mmol/L (132-148)
[2016-06-18] MEDS: Insulin Reg-LOW-Coverage SC SCH (07:50)
--- NOTE | 2016-06-18 08:13 | PN ---
DATE: 06/18/2016 SUBJECTIVE: The patient appears very comfortable at rest. He is not short of breath. VITALS: Temperature is 97.4, pulse 55, respirations 18/20, blood pressure 113/ 62. Oxygen saturation on nasal cannula is 92-96%. HENT: Normocephalic, atraumatic. No JVD. CARDIOVASCULAR: Positive S1, S2. No S3. LUNGS: Minimal rhonchi. No wheezing. EXTREMITIES: Less edema. No cyanosis, no clubbing. Calves are nontender to palpation. GASTROINTESTINAL: Abdomen is soft. It is much less distended and much less tender to palpation. Bowel sounds are improved. SKIN: No acute rash. NEUROLOGIC EXAMINATION: Limited at the present time. IMPRESSION: 1. Status post respiratory failure. 2. Infiltrates, atelectasis -- resolved. 3. Pulmonary edema -- resolved. 4. Ascending cholangitis. 5. Acute cholecystitis. 6. Anemia. 7. Triple vessel coronary artery disease. PLAN: The patient appears very comfortable this morning. He is not short of breath at rest. He does remain very weak looking. On physical exam, there is certainly less bronchospasm noted. In addition, there is no significant alveolar arterial gradient. I will continue with the current nebulizer treatments and chest percussion therapy for now. I would continue with the antibiotic coverage as per infectious disease. Temperatures have resolved. The leukocytosis has resolved. I would continue with the GI and surgical evaluations. Inputs are noted. Clinical status of the patient is significantly improved -- compared to last week. However, again, the overall status/prognosis of this patient does remain guarded. I will discuss the above with the attending physician. Medardo Whittaker MD cc: [phone] TT: 06/18/2016 08:13:13 Confirmation # [id number] Dictation # [id number] jn [place]
--- NOTE | 2016-06-18 08:34 | CP.PCM.PN ---
Subjective - Date & Time of Evaluation Date of Evaluation: 06/18/16 Time of Evaluation: 07:00 - Subjective Subjective: General Surgery Dr. Krishnamurthy Pt S&E @bedside. NAEO. no complaints. tolerating diet. Objective - Vital Signs/Intake and Output Vital Signs (last 24 hours): Temp Pulse Resp BP Pulse Ox 97.4 F L 55 L 20 113/62 92 L 06/18/16 06:00 06/18/16 06:00 06/18/16 06:00 06/18/16 06:00 06/18/16 06:00 Intake and Output: 06/18/16 06/18/16 06:59 18:59 Intake Total 710 Output Total 200 Balance 510 - Medications Medications: Current Medications Acetaminophen (Tylenol 325mg Tab) 650 mg PO Q8 PRN PRN Reason: Fever >100.4 F Last Admin: 06/15/16 00:04 Dose: 650 mg Acetylcysteine (Acetylcysteine 20%) 4 ml IH [id number] [facility] Last Admin: 06/18/16 08:16 Dose: 4 ml Albuterol/Ipratropium (Duoneb 3 Mg/0.5 Mg (3 Ml) Ud) 3 ml IH Q2H PRN PRN Reason: Shortness of Breath Albuterol/Ipratropium (Duoneb 3 Mg/0.5 Mg (3 Ml) Ud) 3 ml IH [id number] [facility] Last Admin: 06/18/16 08:16 Dose: 3 ml Aspirin (Ecotrin) 81 mg PO DAILY [facility] Last Admin: 06/17/16 10:01 Dose: 81 mg Famotidine (Pepcid) 20 mg PO HS [facility] Last Admin: 06/17/16 22:10 Dose: 20 mg Heparin Sodium (Porcine) (Heparin) 5,000 units SC Q8 YOLANDA PRN Reason: Protocol Last Admin: 06/18/16 05:46 Dose: 5,000 units Meropenem 1g/NS 100mL IVPB (Meropenem 1g/Ns 100ml Ivpb) 100 mls @ 100 mls/hr IVPB Q8 [facility] Stop: 06/23/16 15:16 Last Admin: 06/18/16 05:47 Dose: 100 mls/hr Insulin Human Regular (Humulin R Low) 0 units SC ACHS [facility] PRN Reason: Protocol Last Admin: 06/18/16 07:50 Dose: Not Given Metoprolol Tartrate (Lopressor) 12.5 mg PO BRKDIN [facility] Last Admin: 06/17/16 17:09 Dose: 12.5 mg Midodrine (Proamatine) 10 mg PO TID [facility] Last Admin: 06/17/16 18:19 Dose: 10 mg Ondansetron HCl (Zofran Inj) 4 mg IVP Q6H PRN PRN Reason: Nausea/Vomiting Last Admin: 06/11/16 17:35 Dose: 4 mg Polyethylene Glycol (Miralax) 17 gm PO DAILY [facility] Last Admin: 06/17/16 10:01 Dose: 17 gm - Labs Labs: 06/18/16 06:30 06/18/16 06:30 Laboratory Tests 06/18/16 06:30 Calcium 8.0 L Total Bilirubin 2.8 H AST 81 H ALT 71 H Alkaline Phosphatase 177 H Total Protein 5.0 L Albumin 2.6 L - Constitutional Appears: Non-toxic, No Acute Distress, Confused - Head Exam Head Exam: NORMAL INSPECTION - Eye Exam Eye Exam: Normal appearance - ENT Exam Additional comments: brown crust on lips eschar on bride of nose - Respiratory Exam Respiratory Exam: NORMAL BREATHING PATTERN. absent: Accessory Muscle Use, Respiratory Distress - GI/Abdominal Exam GI & Abdominal Exam: Distended, Soft. absent: Guarding, Tenderness, Rebound - Neurological Exam Neurological Exam: Alert, Awake - Psychiatric Exam Psychiatric exam: Normal Affect, Normal Mood - Skin Skin Exam: Dry, Intact, Warm Assessment and Plan - Assessment and Plan (Free Text) Assessment: 75 y/o M w/ septic shock (resolved) 2/2 cholangitis, s/p IR drainage and ERCP w. stent - cont to monitor T. bili - f/u cardiology - f/u GI - cont medical management - no plans for surgery at this time Pt discussed w/ Dr. Raghu Larose DO PGY1
[2016-06-18] MEDS: POLYETHYLENE GLYCOL 3350 17 GM/Dose PACKET PO SCH (09:28)
--- NOTE | 2016-06-18 09:35 | DS ---
I saw the patient this morning, resting in bed. He is alert. He is comfortable. No shortness of br eath. He slept well. He is eating some. He did pull out his Tong catheter yesterday. MEDICATIONS: He is on acetylcysteine, DuoNeb, Ecotrin, heparin, insulin, Lopressor, Merrem IV - need to be on that probably 4-5 more days. MiraLax, Pepcid, ProAmatine, Tylenol, and Zofran. PHYSICAL EXAMINATION: VITAL SIGNS: Temp 97.4, 55 pulse, 113/62 blood pressure, 20 respiratory rate, 92% O2 sat on nasal ca nnula. HEENT: Head is atraumatic, normocephalic. The lip and the nose have black eschar on them from press ure from the mask. HEART: Regular rate. LUNGS: Decreased breath sounds, but clear. ABDOMEN: Soft. EXTREMITIES: No edema. LUNGS: Much better. LABORATORY DATA: He has a 6.5 white count, 9.9 hemoglobin, 29.6 hematocrit with 184 platelets - best it has been. INR is 1.11. He has a 13____ sodium. Potassium is 3.6. BUN 16, creatinine 0.7. GFR is greater than 60 - that is the best that has been. Sugar is 133. Calcium is 8. Total bili is 2. 8 - better. AST is 81 - better. ALT is 71. Alk phos is 177 - better, and total protein is 5. He was here for numerous reasons: Small-bowel obstruction, sepsis, shock, respiratory failure, intub ated, coronary artery disease, gallbladder cholecystitis. He has a pigtail catheter that will stay i n. In 2-3 weeks, he will go for cardiac cath at [facility] or [facility], and then after that, he will go for a gallbladder surgery. He had respiratory failure, pneumonia, pulmonary e jareth, anemia, hematuria from pulling out his Tong. The plan is going to be to discharge him back to [place] today. I will follow him there. IV antibio tics. Sean Nicholson DO cc: [id number] TT: 06/18/2016 09:34:48 jn
[2016-06-18 10:45] LABS: IGG SUCLASS 4 0.8 (L)
--- NOTE | 2016-06-18 11:04 | CP.PCM.PN ---
Subjective - Date & Time of Evaluation Date of Evaluation: 06/18/16 Time of Evaluation: 09:10 - Subjective Subjective: Comfortable in bed, afebrile overnight, no abdominal pain, no vomiting. Objective - Vital Signs/Intake and Output Vital Signs (last 24 hours): Temp Pulse Resp BP Pulse Ox 97.4 F L 55 L 20 113/62 92 L 06/18/16 06:00 06/18/16 06:00 06/18/16 06:00 06/18/16 06:00 06/18/16 06:00 Intake and Output: 06/18/16 06/18/16 06:59 18:59 Intake Total 710 Output Total 200 Balance 510 - Medications Medications: Current Medications Acetaminophen (Tylenol 325mg Tab) 650 mg PO Q8 PRN PRN Reason: Fever >100.4 F Last Admin: 06/15/16 00:04 Dose: 650 mg Acetylcysteine (Acetylcysteine 20%) 4 ml IH [id number] [facility] Last Admin: 06/18/16 08:16 Dose: 4 ml Albuterol/Ipratropium (Duoneb 3 Mg/0.5 Mg (3 Ml) Ud) 3 ml IH Q2H PRN PRN Reason: Shortness of Breath Albuterol/Ipratropium (Duoneb 3 Mg/0.5 Mg (3 Ml) Ud) 3 ml IH [id number] [facility] Last Admin: 06/18/16 08:16 Dose: 3 ml Aspirin (Ecotrin) 81 mg PO DAILY [facility] Last Admin: 06/17/16 10:01 Dose: 81 mg Famotidine (Pepcid) 20 mg PO HS [facility] Last Admin: 06/17/16 22:10 Dose: 20 mg Heparin Sodium (Porcine) (Heparin) 5,000 units SC Q8 YOLANDA PRN Reason: Protocol Last Admin: 06/18/16 05:46 Dose: 5,000 units Meropenem 1g/NS 100mL IVPB (Meropenem 1g/Ns 100ml Ivpb) 100 mls @ 100 mls/hr IVPB Q8 [facility] Stop: 06/23/16 15:16 Last Admin: 06/18/16 05:47 Dose: 100 mls/hr Insulin Human Regular (Humulin R Low) 0 units SC ACHS [facility] PRN Reason: Protocol Last Admin: 06/18/16 07:50 Dose: Not Given Metoprolol Tartrate (Lopressor) 12.5 mg PO BRKDIN [facility] Last Admin: 06/17/16 17:09 Dose: 12.5 mg Midodrine (Proamatine) 10 mg PO TID [facility] Last Admin: 06/17/16 18:19 Dose: 10 mg Ondansetron HCl (Zofran Inj) 4 mg IVP Q6H PRN PRN Reason: Nausea/Vomiting Last Admin: 06/11/16 17:35 Dose: 4 mg Polyethylene Glycol (Miralax) 17 gm PO DAILY [facility] Last Admin: 06/17/16 10:01 Dose: 17 gm - Labs Labs: 06/18/16 06:30 06/18/16 06:30 PT 12.0 Seconds (9.9-11.8) H 06/09/16 06:46 INR 1.11 (0.93-1.08) H 06/09/16 06:46 APTT 31.2 Seconds (23.7-30.8) H 06/09/16 06:46 - Constitutional Appears: Non-toxic, No Acute Distress - Head Exam Head Exam: NORMAL INSPECTION - ENT Exam ENT Exam: Mucous Membranes Moist - Neck Exam Neck Exam: absent: Lymphadenopathy, Meningismus - Respiratory Exam Respiratory Exam: Decreased Breath Sounds - Cardiovascular Exam Cardiovascular Exam: +S1, +S2 - GI/Abdominal Exam GI & Abdominal Exam: Soft. absent: Tenderness Additional comments: right sided abdominal drain in place, with clear yellowish fluid Assessment and Plan - Assessment and Plan (Free Text) Plan: Assessment Septic shock S/P ventilator-dependent respiratory failure and acute renal failure from ESBL-producing multidrug resistant E. coli bacteremia probably from biliary tree infection (ascending cholangitis or acute cholecystitis) S/P abdominal drain placement into the biliary tree POD #11, S/P ERCP with biliary stent placement POD #9; patient continues to improve clinically Alzheimer's dementia history of hemolytic anemia prostate CA history of depression history of bowel obstruction history of E. coli bacteremia and sepsis probably biliary tree in origin History of Klebsiella UTI Plan Continue Meropenem (day 12); repeat blood cx, urine cx are negative ;repeat blood cx negative; will target 14 days of Merrem will continue to continue to monitor clinically, continue to trend WBC count ( has normalized)
--- NOTE | 2016-06-18 11:39 | PN ---
DATE: 06/18/2016 The patient is confused, in bed, no chest pain noted. Blood pressure is 113/62, the heart rate is in the 50s. NECK: Negative JVD. LUNGS: Without rales. HEART: Revealed S1, S2. EXTREMITIES: Without edema. LABORATORIES: Hemoglobin is 9.9. Chemistries: Glucose is 133. IMPRESSION: 1. Sepsis. 2. Marked confusion. 3. Triple vessel coronary artery disease. 4. Ischemia, controlled well with beta blockers. 5. Chronic obstructive pulmonary disease. Given these findings, the patient is hemodynamically stable. The patient is being transferred out to continue antibiotics in a subacute rehab. Janusz Landry MD cc: [id number] TT: 06/18/2016 11:38:38 Confirmation # [id number] Dictation # [id number] jn
== END 2016-06-18 14:11 | DRG 871 ==
LOC: ED 07:23 → ERH 10:27 → CCU 13:50 → 2RNO 06-16 21:53
PROVIDERS: ADMIT Internal Medicine; ATTEND Family Medicine
PROC: 0BH17EZ Insertion of Endotracheal Airway into Trachea, Via Natural or Artificial Opening (ICD-10-PCS; principal; 2016-06-07)
PROC: 0F9430Z Drainage of Gallbladder with Drainage Device, Percutaneous Approach (ICD-10-PCS; 2016-06-07)
PROC: 5A1945Z Respiratory Ventilation, 24-96 Consecutive Hours (ICD-10-PCS; 2016-06-07)
PROC: 0F798DZ Dilation of Common Bile Duct with Intraluminal Device, Via Natural or Artificial Opening Endoscopic (ICD-10-PCS; 2016-06-09)
PROC: 4A023N8 Measurement of Cardiac Sampling and Pressure, Bilateral, Percutaneous Approach (ICD-10-PCS; 2016-06-12)
PROC: B2011ZZ Plain Radiography of Multiple Coronary Arteries using Low Osmolar Contrast (ICD-10-PCS; 2016-06-12)
PROC: B2051ZZ Plain Radiography of Left Heart using Low Osmolar Contrast (ICD-10-PCS; 2016-06-12)
DX: A41.51 Sepsis due to Escherichia coli [E. coli] (principal); R65.21 Severe sepsis with septic shock; J96.00 Acute respiratory failure, unspecified whether with hypoxia or hypercapnia; N17.9 Acute kidney failure, unspecified; J18.9 Pneumonia, unspecified organism; K83.0 Cholangitis; E87.2 Acidosis; E87.0 Hyperosmolality and hypernatremia; K80.62 Calculus of gallbladder and bile duct with acute cholecystitis without obstruction; J98.11 Atelectasis; G30.9 Alzheimer's disease, unspecified; F02.80 Dementia in other diseases classified elsewhere, unspecified severity, without behavioral disturbance, psychotic disturbance, mood disturbance, and anxiety; D69.6 Thrombocytopenia, unspecified; I25.10 Atherosclerotic heart disease of native coronary artery without angina pectoris; I27.2 Other secondary pulmonary hypertension; E11.9 Type 2 diabetes mellitus without complications; D64.9 Anemia, unspecified; I49.3 Ventricular premature depolarization; D46.9 Myelodysplastic syndrome, unspecified; E03.9 Hypothyroidism, unspecified; Z85.46 Personal history of malignant neoplasm of prostate; Z87.891 Personal history of nicotine dependence

== ENCOUNTER 2016-08-14 14:41 | Emergency (ER) | payer MEDICARE, MEDICAID ==
[2016-08-14 14:42] VITALS: BMI 25.8
[2016-08-14 15:06] VITALS: BP 109/67; PULSE 55; RESP 12; TEMP 97.9; O2SAT 99
--- NOTE | 2016-08-14 15:18 | ED PDOC ---
Arrival/HPI - General Time Seen by Provider: 08/14/16 14:56 Historian: Patient - History of Present Illness Narrative History of Present Illness (Text): 08/14/16 15:15 75 year old male whose past medical history includes Alzheimer's presents to the emergency department with complaint of left sided chest pain about 2 hours prior to arrival. states the patient was at the snf sitting in a wheelchair when he complained of the pain. He currently denies any discomfort or pain or dyspnea and does not know why he is in the ER. No diaphoresis, shortness of breath, nausea, vomiting, fever, or cough. Currently patient denies any pain. Time/Duration: 1-3 hours Symptom Onset: Sudden Modifying Factors (Text): None Associated Symptoms (Text): None Past Medical History - Provider Review Nursing Documentation Reviewed: Yes - Infectious Disease Hx of Infectious Diseases: None - Reproductive Currently : No - Cardiac Hx Cardiac Disorders: Yes Hx Congestive Heart Failure: Yes Hx Hypertension: Yes - Pulmonary Hx Respiratory Disorders: Yes Hx Pneumonia: Yes - Neurological Hx Neurological Disorder: Yes Hx Alzheimer's Disease: Yes - HEENT Hx HEENT Disorder: Yes (WEARS RX GLASSES) - Renal Hx Renal Disorder: No - Endocrine/Metabolic Hx Endocrine Disorders: No - Hematological/Oncological Hx Blood Transfusions: Yes Hx Blood Transfusion Reaction: No - Integumentary Hx Dermatological Disorder: Yes (JAUNDICED SKIN 06-21-15) - Musculoskeletal/Rheumatological Hx Musculoskeletal Disorders: Yes Hx Falls: Yes Hx Unsteady Gait: Yes - Gastrointestinal Hx Gastrointestinal Disorders: Yes (H/O OF BOWEL OBSTRUCTION WITH SX) Other/Comment: POOR APPETITE 06-21-15 FAILURE TO THRIVE,CONSTIPATION - Genitourinary/Gynecological Hx Genitourinary Disorders: Yes Hx Incontinence: Yes Hx Prostate Problems: Yes (PROSTATE CA WITH RADIATION-SEEDING) - Psychiatric Hx Emotional Abuse: No Hx Physical Abuse: No Hx Substance Use: (UNKNOWN) - Surgical History Other/Comment: BOWEL OBSTRUCTION-1995 - Anesthesia Hx Anesthesia Reactions: No Hx Malignant Hyperthermia: No Family/Social History - Physician Review Nursing Documentation Reviewed: Yes Family/Social History: Unknown Family HX Smoking Status: Former Smoker Hx Alcohol Use: (UNKNOWN) Hx Substance Use: (UNKNOWN) Allergies/Home Meds Allergies/Adverse Reactions: Allergies ceftriaxone sodium [From Rocephin] Allergy (Verified 08/14/16 16:15) RASH Home Medications: Home Meds Medication Instructions Recorded Confirmed Donepezil HCl 10 mg PO DAILY 07/08/15 08/14/16 Acetaminophen [8 Hour] 650 mg PO Q4H PRN 03/01/16 08/14/16 Cyanocobalamin [Vitamin B12 100 100 mcg PO DAILY 03/01/16 08/14/16 mcg Tab] Aspirin [Ecotrin] 81 mg PO DAILY 08/14/16 08/14/16 Metoprolol Tartrate [Lopressor] 12.5 mg PO DAILY 08/14/16 08/14/16 Midodrine [Proamatine] 10 mg PO TID 08/14/16 08/14/16 Review of Systems - Review of Systems Systems not reviewed;Unavailable: Other (Hx Alzheimer's) Constitutional: absent: Fevers Respiratory: absent: SOB, Cough Cardiovascular: Chest Pain Gastrointestinal: absent: Nausea, Vomiting Endocrine: absent: Diaphoresis Physical Exam - Physical Exam Narrative Physical Exam (Text): Constitutional: No acute distress. Head: Normocephalic. Atraumatic. Eyes: PERRL. ENT: Moist mucous membranes. Neck: Supple. Cardiovascular: Regular rate. Chest: No tenderness. Respiratory: Clear to auscultation bilaterally. GI: Soft. Nontender. Nondistended. Back: No CVA tenderness. Musculoskeletal: No tenderness or swelling of extremities. Skin: Psoriatic rash to extremities. No edema. Neurologic: Alert, no focal deficit. Vital Signs Reviewed: Yes Vital Signs Temp Pulse Resp BP Pulse Ox 08/14/16 15:04 97.9 F 55 L 12 109/67 99 Temperature: Afebrile Blood Pressure: Normal Pulse: Bradycardic Respiratory Rate: Normal Appearance: Positive for: Well-Appearing, Non-Toxic, Comfortable Pain Distress: None Mental Status: Positive for: other (Baseline mental status) Medical Decision Making ED Course and Treatment: Impression: 75 year old male whose past medical history includes Alzheimer's presents to the emergency department with prior complaint of left sided chest pain about 2 hours prior to arrival. Now asymptomatic and no complaint. Differential Diagnosis included but are not limited to: Plan: -- EKG, Chest X-ray -- Aspirin -- Reassess and disposition Prior Visits: Notes and results from previous visits were reviewed. Patient last seen in the ED on 06/06/16 for abdominal pain and vomiting, and admitted for Hyperbilirubinemia, Sepsis, Cholecystitis, Fever, Abdominal pain, Vomiting. Progress Notes: EKG shows sinus bradycardia at [address]/T wave changes, interpreted by me. Chest X-ray Stripe Marker: Ramone Goncalves MD IMPRESSION: No active disease 08/14/16 16:[address] Nicholson, who recommends discharge back to detention. - Lab Interpretations Lab Results: 08/14/16 15:15 08/14/16 15:15 Lab Results 08/14/16 15:15: Sodium 138, Potassium 4.2, Chloride 100, Carbon Dioxide 32, Anion Gap 10, BUN 21, Creatinine 0.8, Est GFR ( Amer) > 60, Est GFR (Non- Af Amer) > 60, Random Glucose 129 H, Calcium 9.6, Total Bilirubin 0.9, AST 41, ALT 81 H, Alkaline Phosphatase 70, Total Creatine Kinase < 20 L, Troponin I < 0.01 D, Total Protein 6.3, Albumin 4.1, Globulin 2.2, Albumin/Globulin Ratio 1.9 H 08/14/16 15:15: PT 10.7, INR 0.99, APTT 24.3 08/14/16 15:15: WBC 6.3, RBC 4.37, Hgb 14.1, Hct 40.0 L, MCV 91.5, MCH 32.3, MCHC 35.3, RDW 14.2, Plt Count 114 L, MPV 9.8, Gran % 73.9 H, Lymph % (Auto) 10.0 L, [place] % (Auto) 8.3 H, Eos % (Auto) 7.5 H, Baso % (Auto) 0.3, Gran # 4.65 , Lymph # 0.6 L, [place] # 0.5, Eos # 0.5, Baso # 0.02 - RAD Interpretation Radiology Orders: 08/14/16 15:15 CHEST PORTABLE [RAD] Stat - EKG Interpretation Interpreted by ED Physician: Yes Type: 12 lead EKG - Medication Orders Current Medication Orders: Discontinued Medications Aspirin (Aspirin) 325 mg PO STAT [facility] Stop: 08/14/16 15:17 Last Admin: 08/14/16 15:39 Dose: 325 mg - Scribe Statement The provider has reviewed the documentation as recorded by the Adrienne Hinojosa Provider Scribe Attestation: All medical record entries made by the Scribe were at my direction and personally dictated by me. I have reviewed the chart and agree that the record accurately reflects my personal performance of the history, physical exam, medical decision making, and the department course for this patient. I have also personally directed, reviewed, and agree with the discharge instructions and disposition. Disposition/Present on Arrival - Present on Arrival Any Indicators Present on Arrival: No History of DVT/PE: No History of Uncontrolled Diabetes: No Urinary Catheter: No History Surgical Site Infection Following: None - Disposition Have Diagnosis and Disposition been Completed?: Yes Diagnosis: Chest pain Disposition: OTHER INSTITUTION Disposition Time: 16:19 Patient Plan: Discharge Condition: STABLE Discharge Instructions (ExitCare): Chest Pain (ED) Referrals: Sean Nicholson DO [Primary Care Provider] - Follow up with primary
[2016-08-14 15:27] LABS: ADD MANUAL DIFF? NO
[2016-08-14 15:37] LABS: BASO # 0.02 K/mm3 (0.0-2.0); BASO % 0.3 % (0.0-3.0); EOS # 0.5 (0.0-0.7); EOS % 7.5 % (1.5-5.0); GRAN # 4.65 (1.4-6.5); GRAN % 73.9 % (50.0-68.0); LYMPH # 0.6 (1.2-3.4); MEAN CELL VOLUME 91.5 fL (80.0-105.0); MEAN CORPUSCULAR HEMOGLOBIN 32.3 pg (25.0-35.0); MEAN CORPUSCULAR HGB CONC 35.3 g/dl (31.0-37.0); MEAN PLATELET VOLUME 9.8 fl (7.0-11.0); MONO # 0.5 (0.1-0.6); MONO % 8.3 % (1.0-6.0); PLATELET COUNT 114 10^3/uL (120.0-450.0); RED CELL DISTRIBUTION WIDTH 14.2 % (11.5-14.5); WHITE BLOOD COUNT 6.3 10^3/ul (4.5-11.0)
--- NOTE | 2016-08-14 15:38 | RAD ---
HISTORY: cp COMPARISON: 06/16/2016 FINDINGS: LUNGS: No active pulmonary disease. PLEURA: No significant pleural effusion identified, no pneumothorax apparent. CARDIOVASCULAR: Normal. OSSEOUS STRUCTURES: No significant abnormalities. VISUALIZED UPPER ABDOMEN: Normal. OTHER FINDINGS: None. IMPRESSION: No active disease.
[2016-08-14 15:42] LABS: INR 0.99 (0.93-1.08); PARTIAL THROMBOPLASTIN TIME 24.3 Seconds (23.7-30.8)
[2016-08-14 15:43] LABS: ALB/GLOB RATIO 1.9 (1.1-1.8); ALKALINE PHOSPHATASE 70 U/L (38-133); ALT/SGPT 81 U/L (7-56); AST/SGOT 41 U/L (15-59); BILIRUBIN,TOTAL 0.9 mg/dL (0.2-1.3); BLOOD UREA NITROGEN 21 mg/dL (7-21); CALCIUM 9.6 mg/dL (8.4-10.5); CARBON DIOXIDE 32 mmol/L (21-33); CHLORIDE 100 mmol/L (98-107); GFR AFRICAN-AMERICAN > 60; GLUCOSE,RANDOM 129 mg/dL (70-110); POTASSIUM 4.2 mmol/L (3.6-5.0); SODIUM 138 mmol/L (132-148); TOTAL PROTEIN 6.3 g/dL (5.8-8.3)
[2016-08-14 15:55] LABS: TROPONIN I < 0.01 ng/mL
--- NOTE | 2016-08-15 14:13 | CARD ---
APPROVED REPORT EKG Measurement Heart [id number] <Conclusion> Sinus bradycardia Low voltage QRS Borderline ECG
== END 2016-08-14 17:54 | disposition designated cancer center or children's hospital (05) ==
LOC: ED 14:41
DX: R07.9 Chest pain, unspecified (principal); I11.0 Hypertensive heart disease with heart failure; I50.9 Heart failure, unspecified; G30.9 Alzheimer's disease, unspecified; F02.80 Dementia in other diseases classified elsewhere, unspecified severity, without behavioral disturbance, psychotic disturbance, mood disturbance, and anxiety; Z87.891 Personal history of nicotine dependence

== ENCOUNTER 2016-08-31 07:01 | Day surgery (SDC) | payer MEDICARE, MEDICAID ==
[2016-08-31 07:15] LABS: ADD MANUAL DIFF? NO
[2016-08-31 07:19] LABS: BASO # 0.03 K/mm3 (0.0-2.0); BASO % 0.5 % (0.0-3.0); EOS # 0.4 (0.0-0.7); EOS % 6.4 % (1.5-5.0); GRAN # 4.81 (1.4-6.5); GRAN % 74.6 % (50.0-68.0); HEMATOCRIT 38.1 % (42.0-52.0); LYMPH # 0.4 (1.2-3.4); LYMPH % 6.5 % (22.0-35.0); MEAN CELL VOLUME 91.8 fL (80.0-105.0); MEAN CORPUSCULAR HEMOGLOBIN 31.6 pg (25.0-35.0); MEAN CORPUSCULAR HGB CONC 34.4 g/dl (31.0-37.0); MEAN PLATELET VOLUME 9.4 fl (7.0-11.0); MONO # 0.8 (0.1-0.6); PLATELET COUNT 107 10^3/uL (120.0-450.0); RED CELL DISTRIBUTION WIDTH 13.9 % (11.5-14.5); WHITE BLOOD COUNT 6.4 10^3/ul (4.5-11.0)
[2016-08-31] MEDS ORDERED: Iohexol 240 (50 ml) ONE (07:21)
[2016-08-31] MEDS ORDERED: Indomethacin 50 MG Suppository PR ONE (07:26)
[2016-08-31 07:30] LABS: INR 0.96 (0.93-1.08); PARTIAL THROMBOPLASTIN TIME 23.9 Seconds (23.7-30.8)
[2016-08-31 07:37] LABS: ALB/GLOB RATIO 1.6 (1.1-1.8); ALKALINE PHOSPHATASE 77 U/L (38-133); ALT/SGPT 93 U/L (7-56); AMYLASE 72 U/L (35-125); AST/SGOT 45 U/L (15-59); BILIRUBIN,TOTAL 0.9 mg/dL (0.2-1.3); BLOOD UREA NITROGEN 31 mg/dL (7-21); CALCIUM 9.4 mg/dL (8.4-10.5); CARBON DIOXIDE 27 mmol/L (21-33); CHLORIDE 104 mmol/L (98-107); GFR AFRICAN-AMERICAN > 60; GLUCOSE,RANDOM 123 mg/dL (70-110); LIPASE 58 U/L (23-300); POTASSIUM 3.8 mmol/L (3.6-5.0); SODIUM 139 mmol/L (132-148); TOTAL PROTEIN 5.9 g/dL (5.8-8.3)
[2016-08-31] MEDS ORDERED: levoFLOXacin 500 mg in D5W 500 MG/100 ML BAG IVPB STA (08:03)
[2016-08-31] MEDS ORDERED: levoFLOXacin 500 mg in D5W 500 MG/100 ML BAG IVPB ONE (08:03)
[2016-08-31] MEDS ORDERED: Etomidate 20 mg/10ml Inj IV ONE (08:44)
[2016-08-31] MEDS ORDERED: Midazolam 2 MG/2 ML VIAL ONE (08:44)
[2016-08-31] MEDS ORDERED: Propofol 10 mg/ml Inj (20 ML) ONE (08:44)
[2016-08-31] MEDS ORDERED: EPINEPHrine 1 mg/ml (1:1000) Inj ONE (09:18)
[2016-08-31] MEDS ORDERED: Lactated Ringer's 1,000 ML IV SCH (09:20)
[2016-08-31 10:24] VITALS: PULSE 56
[2016-08-31 10:50] VITALS: BP 102/65; RESP 16; TEMP 97.7; O2SAT 99
--- NOTE | 2016-09-16 16:21 | RAD ---
PROCEDURE: ERCP HISTORY: ERCP COMPARISON: TECHNIQUE: Fluoroscopy was provided in the endoscopy suite. 66 seconds of fluoroscopy. Six images were submitted FINDINGS: The study shows passage of a wire and balloon catheter in the common duct IMPRESSION: As above
== END 2016-08-31 11:40 ==
LOC: ENDO 07:01
PROVIDERS: ATTEND Internal Medicine
DX: K83.0 Cholangitis (principal); K80.80 Other cholelithiasis without obstruction; G30.9 Alzheimer's disease, unspecified; F02.80 Dementia in other diseases classified elsewhere, unspecified severity, without behavioral disturbance, psychotic disturbance, mood disturbance, and anxiety; D69.6 Thrombocytopenia, unspecified; Z88.1 Allergy status to other antibiotic agents
CPT/HCPCS: 36415; 43262; 43264; 43275; 74330; 80053; 82150; 82977; 83690; 85025; 85610; 85730; J0171; J2250; J2704; J3010; J7120; Q9966

== ENCOUNTER 2017-04-12 06:29 | Inpatient (IN) | payer MEDICARE, MEDICAID ==
[2017-04-12 06:29] VITALS: BMI 25.8
[2017-04-12] MEDS ORDERED: Sodium Chloride 0.9% 2,500 ML IV STA (07:26)
[2017-04-12 07:44] LABS: VENOUS BLOOD GAS BASE EXCESS 5.2 mmol/L (0.0-2.0); VENOUS BLOOD GAS PO2 100 mm/Hg (30-55); VENOUS BLOOD PH 7.48 (7.32-7.43)
[2017-04-12 07:46] LABS: BASO # 0.02 K/mm3 (0.0-2.0); BASO % 0.2 % (0.0-3.0); GRAN % 91.2 % (50.0-68.0); HEMOGLOBIN 15.2 g/dL (14.0-18.0); LYMPH # 0.5 (1.2-3.4); LYMPH % 4.2 % (22.0-35.0); MEAN CORPUSCULAR HEMOGLOBIN 31.1 pg (25.0-35.0); MEAN CORPUSCULAR HGB CONC 31.7 g/dl (31.0-37.0); MEAN PLATELET VOLUME 10.9 fl (7.0-11.0); MONO # 0.5 (0.1-0.6); MONO % 4.4 % (1.0-6.0); PLATELET COUNT 223 10^3/uL (120.0-450.0); RBC 4.89 10^6/uL (3.5-6.1); RED CELL DISTRIBUTION WIDTH 14.5 % (11.5-14.5); WHITE BLOOD COUNT 11.8 10^3/ul (4.5-11.0)
--- NOTE | 2017-04-12 07:47 | ED PDOC ---
Arrival/HPI - General Chief Complaint: Fever Time Seen by Provider: 04/12/17 06:55 - History of Present Illness Narrative History of Present Illness (Text): 04/12/17 07:19 A 76 year old male, whose past medical history includes Alzheimer's CHF, and hypertension, is sent from [facility] and presents to the emergency department complaining of high fever for past 24 hours. According to his PMD, patient has stent in gallbladder. However, surgical intervention has been delayed due to questionable caridac disease. Limited HPI and ROS due to patient currently being nonverbal due to Alzheimer's. PMD: Dr. Nicholson Time/Duration: 24 hours Symptom Onset: Sudden Symptom Course: Unchanged Quality: Other ([facility]) Past Medical History - Provider Review Nursing Documentation Reviewed: Yes - Infectious Disease Hx of Infectious Diseases: None - Cardiac Hx Congestive Heart Failure: Yes Hx Hypertension: Yes Hx Pacemaker: No Other/Comment: ashd - Pulmonary Hx Pneumonia: Yes - Neurological Hx Alzheimer's Disease: Yes Hx Dementia: Yes - HEENT Hx HEENT Disorder: Yes (WEARS RX GLASSES) - Renal Hx Renal Disorder: Yes Hx Renal Failure: Yes (congenital) - Endocrine/Metabolic Hx Diabetes Mellitus Type 2: Yes Hx Hypothyroidism: Yes - Hematological/Oncological Hx Anemia: Yes Hx Cancer: Yes (prostate) - Integumentary Hx Dermatological Disorder: Yes (JAUNDICED SKIN 06-21-15) - Musculoskeletal/Rheumatological Hx Musculoskeletal Disorders: No - Gastrointestinal Hx Gastroesophageal Reflux: Yes Hx Gastrointestinal Ulcer: Yes Other/Comment: acute cholecystitis/tube in gallbladder - Genitourinary/Gynecological Hx Genitourinary Disorders: Yes Hx Incontinence: Yes Hx Prostate Cancer: Yes Hx Prostate Problems: Yes (PROSTATE CA WITH RADIATION-SEEDING) Other/Comment: esbl/uti - Psychiatric Hx Depression: Yes Hx Substance Use: No - Surgical History Other/Comment: BOWEL OBSTRUCTION-1996 - Anesthesia Hx Anesthesia Reactions: No Hx Malignant Hyperthermia: No - Suicidal Assessment Feels Threatened In Home Enviroment: No Family/Social History - Physician Review Nursing Documentation Reviewed: Yes Family/Social History: No Known Family HX Smoking Status: Former Smoker Hx Alcohol Use: Yes (SOCIAL) Hx Substance Use: No Allergies/Home Meds Allergies/Adverse Reactions: Allergies ceftriaxone sodium [From Rocephin] Allergy (Verified 04/12/17 06:37) RASH Home Medications: Home Meds Medication Instructions Recorded Confirmed Aspirin [Adult Low Dose Aspirin EC] 81 mg PO DAILY 08/21/16 04/12/17 Donepezil [Aricept] 10 mg PO HS 08/21/16 04/12/17 Ferrous Sulfate [Feosol] 324 mg PO DAILY 08/21/16 04/12/17 Levothyroxine [Synthroid] 75 mcg PO DAILY 08/21/16 04/12/17 Magnesium Hydroxide [Milk Of 30 ml PO PRN PRN 08/21/16 04/12/17 Magnesia] Metoprolol Tartrate [Lopressor] 12.5 mg PO DAILY 08/21/16 04/12/17 Midodrine [Proamatine] 10 mg PO TID 08/21/16 04/12/17 Ondansetron HCl [Zofran] 4 mg PO Q6H PRN 08/21/16 04/12/17 Pantoprazole [Protonix] 40 mg PO DAILY 08/21/16 04/12/17 Polyethylene Glycol 3350 [Miralax] 17 gm PO DAILY 08/21/16 04/12/17 Acetaminophen [Pain Reliever] 650 mg PO Q4 PRN 10/19/16 04/12/17 Review of Systems - Review of Systems Systems not reviewed;Unavailable: Other (nonverbal due to Alzheimer's) Physical Exam Vital Signs Reviewed: Yes Vital Signs Temp Pulse Resp BP Pulse Ox 04/12/17 08:06 103.5 F H 04/12/17 06:40 103.5 F H 100 H 40 H 115/74 92 L Temperature: Febrile Blood Pressure: Normal Pulse: Tachycardic Respiratory Rate: Normal Appearance: Positive for: Well-Appearing Pain Distress: None Mental Status: Positive for: other (patient currently nonverbal; however he is able to open eyes upon request.) - Systems Exam Mouth: Present: Dry (and pink) Respiratory/Chest: Present: Other (crackles to right side; clear on left side) Cardiovascular: Present: Regular Rate and Rhythm, Tachycardic. No: Murmurs Abdomen: Present: Tenderness (tenderness to palpation to upper abdomen) Neurological: Present: Other (no neurological deficits except that patient is currently nonverbal ) Skin: Present: Warm, Dry, Normal Color. No: Rashes Psychiatric: Present: Other (unable to assess at this time due to patient being nonverbal) Medical Decision Making ED Course and Treatment: 04/12/17 07:23 Impression: 76 year old male with high fever. Physical exam shows patient is currently nonverbal (unable to do psych exam due to this), patient is RRR and tachycardic; lung crackles to right side and clear on left side; no neurological deficits aside from being nonverbal however opens eyes upon request ; mucous membranes dry and pink; warm and dry skin. Plan: -- EKG -- Chest X-ray -- Labs -- Blood Culture -- Urine Culture -- Venous Blood Gas -- Urinalysis -- IV Fluids -- Venti Mask O2 -- Tong Catheter Insertion -- Reassess and disposition Prior Visits: Notes and results from previous visits were reviewed. Patient was last seen in the emergency department on 10/19/2016 for decreased activity levels. Patient was d/c home. Progress Notes: 04/12/17 08:12 Code sepsis called. 04/12/2017 08:46 Chest X-ray IMPRESSION: Findings are concerning for multifocal pneumonia in the right upper lobe and both lower lobes. Follow-up is advised. Dictator: Nivia Sosa MD - Lab Interpretations Lab Results: 04/12/17 06:50 04/12/17 06:50 Lab Results 04/12/17 06:50: Sodium 157 H*, Chloride 115 H, Potassium 4.4, Carbon Dioxide 25 , Anion Gap 21 H, BUN 52 H, Creatinine 1.3, Est GFR ( Amer) > 60, Est GFR (Non-Af Amer) 53, Random Glucose 317 H* D, Calcium 10.0, Phosphorus 4.0, Magnesium 2.4 H, Total Bilirubin 1.3, AST 85 H, ALT 94 H, Alkaline Phosphatase 75, Total Protein 7.2, Albumin 3.9, Globulin 3.3, Albumin/Globulin Ratio 1.2 04/12/17 06:50: pO2 100 H, VBG pH 7.48 H, VBG pCO2 39.0 L, VBG HCO3 29.0 H, VBG Total CO2 30.2 H, VBG O2 Sat (Calc) 98.5 H, VBG Base Excess 5.2 H, VBG Potassium 5.3 H, Sodium 149.0 H, Chloride 122.0 H, Glucose 342 H, Lactate 3.0 H , FiO2 21.0, Venous Blood Potassium 5.3 H 04/12/17 06:50: PT 16.1 H, INR 1.39 H, APTT 31.6 04/12/17 06:50: WBC 11.8 H D, RBC 4.89, Hgb 15.2, Hct 47.9, MCV 98.0, MCH 31.1, MCHC 31.7, RDW 14.5, Plt Count 223, MPV 10.9, Gran % 91.2 H, Lymph % (Auto) 4.2 L, [place] % (Auto) 4.4, Eos % (Auto) 0.0 L, Baso % (Auto) 0.2, Gran # 10.80 H, Lymph # 0.5 L, [place] # 0.5, Eos # 0.0, Baso # 0.02, Neutrophils % (Manual) 87 H, Band Neutrophils % 4 H, Lymphocytes % (Manual) 7 L, Monocytes % (Manual) 2, Platelet Evaluation Normal I have reviewed the lab results: Yes - RAD Interpretation Radiology Orders: 04/12/17 07:23 CHEST PORTABLE [RAD] Stat - Medication Orders Current Medication Orders: Sodium Chloride (Sodium Chloride 0.9%) 2,500 mls @ 999 mls/hr IV .[id number] STA Stop: 04/12/17 09:56 Last Admin: 04/12/17 07:45 Dose: 999 mls/hr eMAR Start Stop Document 04/12/17 07:45 LA (Rec: 04/12/17 07:49 LA [id number]) Intravenous Solution Start Date 04/12/17 Start Time 07:49 Discontinued Medications Acetaminophen (Tylenol 650 Mg Supp) 650 mg RC STAT STA Stop: 04/12/17 08:14 Levofloxacin/Dextrose (Levaquin 750mg) 750 mg IVPB STAT STA Stop: 04/12/17 08:19 - Scribe Statement The provider has reviewed the documentation as recorded by the Adrienne Cummins Provider Scribe Attestation: All medical record entries made by the Scribe were at my direction and personally dictated by me. I have reviewed the chart and agree that the record accurately reflects my personal performance of the history, physical exam, medical decision making, and the department course for this patient. I have also personally directed, reviewed, and agree with the discharge instructions and disposition. Disposition/Present on Arrival - Present on Arrival Any Indicators Present on Arrival: No History of DVT/PE: No History of Uncontrolled Diabetes: No Urinary Catheter: No History of Decub. Ulcer: No History Surgical Site Infection Following: None - Disposition Have Diagnosis and Disposition been Completed?: Yes Diagnosis: Pneumonia Disposition: HOSPITALIZED Disposition Time: 09:00 Patient Plan: Admission Condition: SERIOUS Referrals: Sean Nicholson DO [Primary Care Provider] - Follow up with primary Forms: [facility] (Sami)
[2017-04-12 07:57] LABS: ALB/GLOB RATIO 1.2 (1.1-1.8); ALBUMIN 3.9 g/dL (3.0-4.8); ALT/SGPT 94 U/L (7-56); AST/SGOT 85 U/L (17-59); GFR AFRICAN-AMERICAN > 60; GFR NON-AFRICAN AMERICAN 53
[2017-04-12 07:59] LABS: BLOOD UREA NITROGEN 52 mg/dL (7-21); MAGNESIUM 2.4 mg/dL (1.7-2.2)
[2017-04-12 08:13] LABS: INR 1.39 (0.93-1.08); PARTIAL THROMBOPLASTIN TIME 31.6 Seconds (25.1-36.5); PROTHROMBIN TIME 16.1 SECONDS (9.4-12.5)
[2017-04-12] MEDS ORDERED: levoFLOXacin 750 mg in D5W 150 ML BAG IVPB STA (08:18)
[2017-04-12 08:37] LABS: BAND 4 % (0-2); LYMPHOCYTE 7 % (22.0-35.0); MONOCYTE 2 % (1.0-6.0); NEUTROPHIL 87 % (50.0-70.0); PLATELET ESTIMATE NORMAL (NORMAL)
--- NOTE | 2017-04-12 08:47 | RAD ---
HISTORY: Sepsis Patient COMPARISON: 08/14/2016. FINDINGS: LUNGS: The lungs are well inflated. There is multifocal airspace disease in the right upper lobe and both lower lobes. PLEURA: No significant pleural effusion identified, no pneumothorax apparent. CARDIOVASCULAR: Normal. OSSEOUS STRUCTURES: No significant abnormalities. VISUALIZED UPPER ABDOMEN: Normal. OTHER FINDINGS: None. IMPRESSION: Findings are concerning for multifocal pneumonia in the right upper lobe and both lower lobes . Follow-up is advised.
[2017-04-12 09:22] LABS: PH,URINE 5.5 (4.7-8.0); URINE BILIRUBIN NEGATIVE (NEGATIVE); URINE BLOOD SMALL (NEGATIVE); URINE GLUCOSE (UA) 250 mg/dL (NEGATIVE); URINE LEUKOCYTE ESTERASE SMALL Leu/uL (NEGATIVE); URINE NITRATE NEGATIVE (NEGATIVE); URINE PROTEIN 100 mg/dL (<30 mg/dL); URINE UROBILINOGEN 0.2 E.U./dL (<1 E.U./dL)
[2017-04-12 09:23] LABS: URINE APPEARANCE SL CLOUDY (CLEAR); URINE COLOR YELLOW (YELLOW)
[2017-04-12] MEDS ORDERED: Sodium Chloride 0.45% 1,000 ML IV SCH (09:30)
[2017-04-12 09:33] LABS: URINE AMORPHOUS SEDIMENT FEW; URINE BACTERIA LARGE (NEG); URINE RBC 15 - 20 /hpf (0-2); URINE WBC 20 - 25 /hpf (0-6)
[2017-04-12] MEDS: Levothyroxine 75 MCG TAB PO SCH (10:44)
--- NOTE | 2017-04-12 11:23 | CP.PCM.CON ---
<Nereida Garcia - Last Filed: 04/12/17 11:39> History of Present Illness - History of Present Illness History of Present Illness: Gastroenterology Fellow/PGY5 Consult Note 75 year old male with history of chronic cholecystitis with indwelling PTC 2016 due to poor surgical candidate in setting of 3-vessel CAD on cath 05/2016 ( RCA/LCX/LAD), Prostate cancer s/p Brachytherapy, autoimmune hemolytic anemia, pancytopenia 2/2 myelodysplastic syndrome on bone marrow biopsy 06/2015, GI Bleed requiring transfusion(06/2015), and Alzheimer's Dementia presenting from nursing facility with fever. Patient is nonverbal and seen with at bedside who states she last saw him Wednesday and he was doing well. She admits to personally having a mild cough for a few days. Nursing facility contacted with nursing staff confirming patient had a persistent high grade temperature despite tylenol and two antibiotics for the last 48 hours leading to transfer to the ER. They also confirm, no drain output for at least 6 months. Patient appears diaphoretic and slightly tachypneic with moaning to abdominal exam. On record review: ERCP 08/2016 showed CBD stent removal,B/L intrahepatic rarefaction of ducts, normal B/L hepatic ducts, CBD 12mm, sphicterotomy with minor bleed s/p 1:[id number] epinephrine 1cc, balloon sweep with sludge extraction/no stones, and cholangiogram confirming clear biliary tree without filling defects. cholangiogram and CT A/P without contrast 11/2016 showed distended gallbladder without extravasation of contrast from biliary tree and patent cystic and common bile ducts. 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 colonoscopy 06/2015- 9mm sessile sigmoid tubular adenoma Review of Systems - Review of Systems Review of Systems: 12-point review of systems negative except for as above Past Patient History - Infectious Disease Hx of Infectious Diseases: None - Past Social History Smoking Status: Former Smoker - CARDIAC Hx Congestive Heart Failure: Yes Hx Hypertension: Yes Hx Pacemaker: No Other/Comment: ashd - PULMONARY Hx Pneumonia: Yes - NEUROLOGICAL Hx Alzheimer's Disease: Yes Hx Dementia: Yes - HEENT Hx HEENT Problems: Yes (WEARS RX GLASSES) - RENAL Hx Chronic Kidney Disease: Yes Hx Renal Failure: Yes (congenital) - ENDOCRINE/METABOLIC Hx Diabetes Mellitus Type 2: Yes Hx Hypothyroidism: Yes - HEMATOLOGICAL/ONCOLOGICAL Hx Anemia: Yes Hx Cancer: Yes (prostate) - INTEGUMENTARY Hx Dermatological Problems: Yes (JAUNDICED SKIN 4-16) - MUSCULOSKELETAL/RHEUMATOLOGICAL Hx Musculoskeletal Disorders: No - GASTROINTESTINAL Hx Gastroesophageal Reflux: Yes Other/Comment: acute cholecystitis/tube in gallbladder - GENITOURINARY/GYNECOLOGICAL Hx Genitourinary Disorders: Yes Hx Incontinence: Yes Hx Prostate Cancer: Yes Hx Prostate Problems: Yes (PROSTATE CA WITH RADIATION-SEEDING) Other/Comment: esbl/uti - PSYCHIATRIC Hx Depression: Yes Hx Substance Use: No - SURGICAL HISTORY Other/Comment: BOWEL OBSTRUCTION-1996 - ANESTHESIA Hx Anesthesia Reactions: No Hx Malignant Hyperthermia: No Meds Allergies/Adverse Reactions: Allergies Allergy/AdvReac Type Severity Reaction Status Date / Time ceftriaxone sodium Allergy RASH Verified 04/12/17 06:37 [From Rocephin] - Medications Medications: Current Medications Aspirin (Ecotrin) 81 mg PO DAILY [facility] Last Admin: 04/12/17 09:56 Dose: 81 mg Donepezil HCl (Aricept) 10 mg PO HS YOLANDA Sodium Chloride (Sodium Chloride 0.45%) 1,000 mls @ 60 mls/hr IV .[id number] [facility] Last Admin: 04/12/17 11:05 Dose: 60 mls/hr Meropenem (Merrem Iv 1 Gm Premix) 50 mls @ 100 mls/hr IVPB Q12 YOLANDA PRN Reason: Protocol Doxycycline Hyclate 100 mg/ (Sodium Chloride) 100 mls @ 100 mls/hr IVPB Q12 YOLANDA PRN Reason: Protocol Last Admin: 04/12/17 10:44 Dose: 100 mls/hr Linezolid (Zyvox 600mg/300ml D5w) 600 mg in 300 mls @ 200 mls/hr IVPB Q12 YOLANDA PRN Reason: Protocol Stop: 04/19/17 10:01 Insulin Human Regular (Humulin R High) 0 units SC ACHS YOLANDA PRN Reason: Protocol Levalbuterol HCl (Xopenex) 0.63 mg IH [id number] YOLANDA Levothyroxine Sodium (Synthroid) 75 mcg PO DAILY [facility] Last Admin: 04/12/17 10:44 Dose: 75 mcg Metoprolol Tartrate (Lopressor) 12.5 mg PO DAILY [facility] Last Admin: 04/12/17 09:55 Dose: 12.5 mg Oseltamivir Phosphate (Tamiflu Susp) 30 mg PO BID [facility] PRN Reason: Protocol Stop: 04/17/17 10:01 Physical Exam - Constitutional Appears: No Acute Distress, Other - Head Exam Head Exam: ATRAUMATIC, NORMOCEPHALIC - Eye Exam Eye Exam: EOMI, PERRL Pupil Exam: PERRL. absent: Miosis, Mydriatic - ENT Exam ENT Exam: Mucous Membranes Moist, Normal Oropharynx - Neck Exam Neck exam: Positive for: Full Rom, Normal Inspection - Respiratory Exam Respiratory Exam: Clear to Auscultation Bilateral. absent: Rales, Rhonchi, Wheezes - Cardiovascular Exam Cardiovascular Exam: RRR, +S1, +S2. absent: Gallop, Rubs - GI/Abdominal Exam GI & Abdominal Exam: Hypoactive Bowel Sounds, Soft. absent: Distended, Firm, Guarding, Organomegaly, Rebound, Rigid Additional comments: moans to abdominal palpation, RUQ drain site with yellow bilious drainage on gown and skin, drain in place- no output in bag - Extremities Exam Extremities exam: Positive for: normal inspection - Neurological Exam Neurological exam: Alert - Psychiatric Exam Psychiatric exam: Normal Affect, Normal Mood - Skin Skin Exam: Diaphoretic, Intact, Normal Color, Warm Results - Vital Signs Recent Vital Signs: Last Vital Signs Temp 103.5 F H 04/12/17 08:06 Pulse 78 04/12/17 09:55 Resp 23 04/12/17 09:13 BP 113/66 04/12/17 09:55 Pulse Ox 100 04/12/17 09:13 - Labs Result Diagrams: 04/12/17 06:50 04/12/17 06:50 Labs: Laboratory Results - last 24 hr 04/12/17 04/12/17 09:17 10:26 Urine Color Yellow Urine Appearance Sl cloudy Urine pH 5.5 Ur Specific [place] 1.025 Urine Protein 100 H Urine Glucose (UA) 250 H Urine Ketones Negative Urine Blood Small H Urine Nitrate Negative Urine Bilirubin Negative Urine Urobilinogen 0.2 Ur Leukocyte Esterase Small H Urine RBC 15 - 20 Urine WBC 20 - 25 Ur Epithelial Cells 1 - 3 Amorphous Sediment Few Urine Bacteria Large Urine Other Uyeast Influenza Typ A,B (EIA) Negative for flu a/b Assessment & Plan - Assessment and Plan (Free Text) Assessment: 75 year old male with history of chronic cholecystitis with indwelling PTC 2016 due to poor surgical candidate in setting of 3-vessel CAD on cath 05/2016 ( RCA/LCX/LAD), Prostate cancer s/p Brachytherapy, autoimmune hemolytic anemia, pancytopenia 2/2 myelodysplastic syndrome on bone marrow biopsy 06/2015, GI Bleed requiring transfusion(06/2015), and Alzheimer's Dementia presenting from nursing facility with fever. Active treatment of severe sepsis 2/2 multifocal pneumonia, yeast UTI, and with history of chronic indwelling PTC 2/2 cholecystitis. On record review: ERCP 08/2016 showed CBD stent removal,B/L intrahepatic rarefaction of ducts, normal B/L hepatic ducts, CBD 12mm, sphicterotomy with minor bleed s/p 1:43931 epinephrine 1cc, balloon sweep with sludge extraction/no stones, and cholangiogram confirming clear biliary tree without filling defects. cholangiogram and CT A/P without contrast 11/2016 showed distended gallbladder without extravasation of contrast from biliary tree and patent cystic and common bile ducts. Plan: >assess PTC to rule out malposition of drain and acute infectious source >low suspicion for cholangitis given baseline LFTs with mildly elevated transaminiases in setting of sepsis >ordered CT A/P without contrast given acute renal insufficiency >on broad spectrum antibiotics >follow up panculture- B/U/S >monitor hemodynamics >IVF resuscitation >supportive care >will follow clinical course <Johnson Gary Y - Last Filed: 04/12/17 17:21> Meds - Medications Medications: Current Medications Acetaminophen (Tylenol 650 Mg Supp) 650 mg RC Q4H PRN PRN Reason: Fever >100.4 F Aspirin (Ecotrin) 81 mg PO DAILY [facility] Last Admin: 04/12/17 09:56 Dose: 81 mg Atorvastatin Calcium (Lipitor) 40 mg PO DIN YOLANDA Donepezil HCl (Aricept) 10 mg PO HS YOLANDA Sodium Chloride (Sodium Chloride 0.45%) 1,000 mls @ 60 mls/hr IV .[id number] [facility] Last Admin: 04/12/17 11:05 Dose: 60 mls/hr Meropenem (Merrem Iv 1 Gm Premix) 50 mls @ 100 mls/hr IVPB Q12 YOLANDA PRN Reason: Protocol Last Admin: 04/12/17 11:57 Dose: 100 mls/hr Doxycycline Hyclate 100 mg/ (Sodium Chloride) 100 mls @ 100 mls/hr IVPB Q12 YOLANDA PRN Reason: Protocol Last Admin: 04/12/17 10:44 Dose: 100 mls/hr Linezolid (Zyvox 600mg/300ml D5w) 600 mg in 300 mls @ 200 mls/hr IVPB Q12 YOLANDA PRN Reason: Protocol Stop: 04/19/17 10:01 Last Admin: 04/12/17 11:57 Dose: 200 mls/hr Insulin Human Regular (Humulin R High) 0 units SC ACHS YOLANDA PRN Reason: Protocol Last Admin: 04/12/17 12:57 Dose: Not Given Levalbuterol HCl (Xopenex) 0.63 mg IH [id number] [facility] Last Admin: 04/12/17 13:18 Dose: 0.63 mg Levothyroxine Sodium (Synthroid) 75 mcg PO DAILY [facility] Last Admin: 04/12/17 10:44 Dose: 75 mcg Metoprolol Tartrate (Lopressor) 25 mg PO BID YOLANDA Oseltamivir Phosphate (Tamiflu Susp) 30 mg PO BID YOLANDA PRN Reason: Protocol Stop: 04/17/17 10:01 Last Admin: 04/12/17 11:57 Dose: 1 u Results - Vital Signs Recent Vital Signs: Last Vital Signs Temp 101.3 F H 04/12/17 11:30 Pulse 78 04/12/17 13:20 Resp 20 04/12/17 11:30 BP 104/64 04/12/17 11:30 Pulse Ox 96 04/12/17 10:00 - Labs Result Diagrams: 04/12/17 06:50 04/12/17 06:50 Labs: Laboratory Results - last 24 hr 04/12/17 04/12/17 04/12/17 09:17 10:24 10:26 pO2 VBG pH VBG pCO2 VBG HCO3 VBG Total CO2 VBG O2 Sat (Calc) VBG Base Excess VBG Potassium Sodium Chloride Glucose Lactate FiO2 POC Glucose (mg/dL) Venous Blood Potassium Urine Color Yellow Urine Appearance Sl cloudy Urine pH 5.5 Ur Specific [place] 1.025 Urine Protein 100 H Urine Glucose (UA) 250 H Urine Ketones Negative Urine Blood Small H Urine Nitrate Negative Urine Bilirubin Negative Urine Urobilinogen 0.2 Ur Leukocyte Esterase Small H Urine RBC 15 - 20 Urine WBC 20 - 25 Ur Epithelial Cells 1 - 3 Amorphous Sediment Few Urine Bacteria Large Urine Other Uyeast Influenza Typ A,B (EIA) Negative for flu a/b Ur L.pneumophila Ag Negative 04/12/17 04/12/17 11:30 12:27 pO2 35 VBG pH 7.32 VBG pCO2 57.0 VBG HCO3 29.4 H VBG Total CO2 31.1 H VBG O2 Sat (Calc) 65.4 H VBG Base Excess 2.0 VBG Potassium 4.2 Sodium 157.0 H Chloride 120.0 H Glucose 276 H Lactate 2.1 FiO2 21.0 POC Glucose (mg/dL) 251 H Venous Blood Potassium 4.2 Urine Color Urine Appearance Urine pH Ur Specific [place] Urine Protein Urine Glucose (UA) Urine Ketones Urine Blood Urine Nitrate Urine Bilirubin Urine Urobilinogen Ur Leukocyte Esterase Urine RBC Urine WBC Ur Epithelial Cells Amorphous Sediment Urine Bacteria Urine Other Influenza Typ A,B (EIA) Ur L.pneumophila Ag Attending/Attestation - Attestation I have personally seen and examined this patient.: Yes I have fully participated in the care of the patient.: Yes I have reviewed all pertinent clinical information: Yes Notes (Text): 04/12/17 17:09 I have seen and examined patient with GI fellow. Agree with above documentation with the following additions. In brief, this is a 76 year old male with history of chronic cholecystitis with indwelling catheter, autoimmune hemolytic anemia, dementia, prostate cancer, MDS, who was sent from nursing facility for evaluation of fever. Patient himself is not able to participate in meaningful conversation, additional history obtained via chart review, discussion with patient's at bedside, and discussion with nursing staff. He apparently has been having high fevers up to 103 for the past two days and appearing increasingly lethargic. According to patient's , prior to this he was in usual state of health and tolerating PO diet with good appetite. She personally admits to having cough and flu like symptoms for the past one week. Otherwise there is no nausea, vomiting, change in bowel habits, or reported weight loss. She endorses negligible output via indwelling cholecystostomy tube. CAD, triple vessel disease on cardiac cath from May 2016 Dementia MDS, autoimmune hemolytic anemia History of prostate cancer Lethargy, AMS - fever Pneumonia History of indwelling cholecystostomy drain Transaminitis, prior h/o ERCP with sludge removal, sphincterotomy - NPO - Continue with broad spectrum antibiotic therapy - Follow up blood, urine cultures - Continue to monitor LFTs, avoid hepatotoxic therapies - Will need cross sectional imaging to assess for drain placement and rule out intraabdominal infectious process given septic picture - Ideally, patient requires cholecystectomy, however previously patient was non- operative candidate due to severe cardiac disease. Will continue to monitor patient clinical course.
[2017-04-12 11:36] LABS: VENOUS BLOOD GAS PO2 35 mm/Hg (30-55); VENOUS BLOOD PH 7.32 (7.32-7.43)
[2017-04-12] MEDS: Linezolid 600 mg in D5W 300 ml 600 MG/300 ML BAG IVPB SCH ×2 (11:57→23:01)
[2017-04-12] MEDS: Oseltamivir 6 MG/ML PO SCH ×2 (11:57→18:43)
[2017-04-12] MEDS: Meropenem IV 1 gm in NS 50 ML IVPB SCH ×2 (11:57→21:01)
[2017-04-12] MEDS: Insulin Reg-HIGH-Coverage SC SCH ×3 (12:57→21:58)
[2017-04-12] MEDS: Levalbuterol 0.63 MG/3 ML Inhal Soln UD IH SCH ×2 (13:18→21:25)
--- NOTE | 2017-04-12 16:45 | CARD ---
APPROVED REPORT EKG Measurement Heart [id number] ID [id number] <Conclusion> Sinus tachycardia Low voltage QRS ST & T wave abnormality, consider inferior ischemia Abnormal ECG
--- NOTE | 2017-04-12 16:49 | CP.PCM.CON ---
History of Present Illness - History of Present Illness History of Present Illness: 76 year old male with PMH of Alzheimer's dementia, history of hemolytic anemia, prostate CA, history of depression, history of bowel obstruction, history of E. coli bacteremia and sepsis probably biliary tree in origin, History of Klebsiella UTI, history of Septic shock S/P ventilator-dependent respiratory failure and acute renal failure from ESBL-producing multidrug resistant E. coli bacteremia probably from biliary tree infection (ascending cholangitis or acute cholecystitis) S/P abdominal drain placement into the biliary tree S/P ERCP with biliary stent placement was brought in to [facility] from the residential because of high fevers. There is no note of convulsions, no loss of consciousness, no vomiting, no diarrhea and full review of systems is unobtainable because of the patient's dementia. In the ED, CXR was done which showed mutlilobar airspace disease. Infectious Diseases consult is requested to further evaluate and manage. Review of Systems - Review of Systems All systems: reviewed and no additional remarkable complaints except (as per HPI ) Past Patient History - Infectious Disease Hx of Infectious Diseases: None - Past Social History Smoking Status: Former Smoker - CARDIAC Hx Congestive Heart Failure: Yes Hx Hypertension: Yes Hx Pacemaker: No Other/Comment: ashd - PULMONARY Hx Pneumonia: Yes - NEUROLOGICAL Hx Alzheimer's Disease: Yes Hx Dementia: Yes - HEENT Hx HEENT Problems: Yes (WEARS RX GLASSES) - RENAL Hx Chronic Kidney Disease: Yes Hx Renal Failure: Yes (congenital) - ENDOCRINE/METABOLIC Hx Diabetes Mellitus Type 2: Yes Hx Hypothyroidism: Yes - HEMATOLOGICAL/ONCOLOGICAL Hx Anemia: Yes Hx Cancer: Yes (prostate) - INTEGUMENTARY Hx Dermatological Problems: Yes (JAUNDICED SKIN 06-21-15) - MUSCULOSKELETAL/RHEUMATOLOGICAL Hx Musculoskeletal Disorders: No - GASTROINTESTINAL Hx Gastroesophageal Reflux: Yes Other/Comment: acute cholecystitis/tube in gallbladder - GENITOURINARY/GYNECOLOGICAL Hx Genitourinary Disorders: Yes Hx Incontinence: Yes Hx Prostate Cancer: Yes Hx Prostate Problems: Yes (PROSTATE CA WITH RADIATION-SEEDING) Other/Comment: esbl/uti - PSYCHIATRIC Hx Depression: Yes Hx Substance Use: No - SURGICAL HISTORY Other/Comment: BOWEL OBSTRUCTION-1996 - ANESTHESIA Hx Anesthesia Reactions: No Hx Malignant Hyperthermia: No Meds Allergies/Adverse Reactions: Allergies Allergy/AdvReac Type Severity Reaction Status Date / Time ceftriaxone sodium Allergy RASH Verified 04/12/17 06:37 [From Rocephin] - Medications Medications: Current Medications Aspirin (Ecotrin) 81 mg PO DAILY [facility] Donepezil HCl (Aricept) 10 mg PO HS [facility] Sodium Chloride (Sodium Chloride 0.45%) 1,000 mls @ 60 mls/hr IV .[id number] [facility] Insulin Human Regular (Humulin R High) 0 units SC ACHS [facility] PRN Reason: Protocol Levalbuterol HCl (Xopenex) 0.63 mg IH [id number] [facility] Levothyroxine Sodium (Synthroid) 75 mcg PO DAILY [facility] Metoprolol Tartrate (Lopressor) 12.5 mg PO DAILY [facility] Physical Exam - Constitutional Appears: Chronically Ill - Head Exam Head Exam: NORMAL INSPECTION - ENT Exam ENT Exam: Mucous Membranes Moist - Neck Exam Neck exam: Negative for: Meningismus - Respiratory Exam Respiratory Exam: Decreased Breath Sounds - Cardiovascular Exam Cardiovascular Exam: +S1, +S2 - GI/Abdominal Exam GI & Abdominal Exam: Soft. absent: Tenderness Results - Vital Signs Recent Vital Signs: Last Vital Signs Temp 103.5 F H 04/12/17 08:06 Pulse 96 H 04/12/17 09:13 Resp 23 04/12/17 09:13 BP 114/69 04/12/17 09:13 Pulse Ox 100 04/12/17 09:13 - Labs Result Diagrams: 04/12/17 06:50 04/12/17 06:50 Labs: Laboratory Results - last 24 hr 04/12/17 09:17 Urine Color Yellow Urine Appearance Sl cloudy Urine pH 5.5 Ur Specific [place] 1.025 Urine Protein 100 H Urine Glucose (UA) 250 H Urine Ketones Negative Urine Blood Small H Urine Nitrate Negative Urine Bilirubin Negative Urine Urobilinogen 0.2 Ur Leukocyte Esterase Small H Urine RBC 15 - 20 Urine WBC 20 - 25 Ur Epithelial Cells 1 - 3 Amorphous Sediment Few Urine Bacteria Large Urine Other [place] Assessment & Plan - Assessment and Plan (Free Text) Plan: Assessment consider severe sepsis with acute renal failure due to multifocal HCAP with possible gram positive cocci and/or gram negative bacilli history of Septic shock S/P ventilator-dependent respiratory failure and acute renal failure from ESBL-producing multidrug resistant E. 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 coli bacteremia and sepsis probably biliary tree in origin History of Klebsiella UTI Plan started patient on Zyvox, Meropenem, doxycycline and renall-adjusted Tamiflu pending blood, urine cx, urine Legionella Ag, rapid flu test, PCT reviewed CXR will monitor clinically
--- NOTE | 2017-04-12 19:52 | CON ---
PULMONARY CONSULTATION DATE: 04/12/2017 REFERRING PHYSICIAN: Sean Nicholson DO REASON FOR CONSULTATION: Pneumonia. HISTORY OF PRESENT ILLNESS: History is obtained via extensive discussion with the nurse. I have also reviewed the chart at length. The patient does not appear to be an adequate historian. The patient is a 76-year-old chronically ill male, [facility] resident, with past medical history significant for Alzheimer's dementia, congestive heart failure, hypertension, respiratory failure in the past, and ascending cholangitis in the past, who was transferred to [facility] - from the [facility] - because of high fevers for the past 1 day. The Emergency Room nurse also noted shortness of breath on presentation. There is no history of cough or sputum production. There is no history of chest pain, coughing up of blood, or chest pain - made worse with deep respirations. As above, the patient did present with high fevers. No history of chills or infectious exposure. No history of night sweats, weight loss or appetite change prior to the above events. No history of calf pains. No history of syncope or diaphoresis. No history of recent travel or trauma. REVIEW OF SYSTEMS: No history of nausea, vomiting, or diarrhea. No acute urinary symptoms. No new musculoskeletal complaints. Rest of the review of systems negative. ALLERGIES: ROCEPHIN. SOCIAL HISTORY: Positive for tobacco and negative for alcohol. FAMILY HISTORY: No inheritable diseases. HOME MEDICATIONS: Include MiraLax, Protonix, Zofran, Lopressor, Synthroid, Feosol, Aricept, and acetaminophen. PHYSICAL EXAMINATION: GENERAL: The patient is mildly short of breath, but in no acute distress. He is not using accessory muscles for breathing. VITAL SIGNS: Temperature is 103.5, pulse is 96, respirations are 20/22, blood pressure is 114/69, and oxygen saturation on a nonrebreather is 100%. HEENT: Normocephalic and atraumatic. NECK: No JVD. CARDIOVASCULAR: Positive S1 and S2. No S3, gallop. LUNGS: Decreased breath sounds at the bases. Minimal crackles at both bases. Minimal rhonchi. No wheezing. EXTREMITIES: Mild edema. No cyanosis. No clubbing. Calves are nontender to palpation. GASTROINTESTINAL: Abdomen is soft, nontender, and nondistended. Bowel sounds are positive. +drain--right upper quadrant. SKIN: No acute rash. NEUROLOGIC: Limited at the present time. PERTINENT LABORATORY DATA: Chest x-ray was done this morning and reviewed. There is a new patchy right lower lobe infiltrate noted. CBC: White count 11.8, hemoglobin 15.2, hematocrit 47.9, and platelets of 223,000. Complete metabolic profile: Sodium 157, chloride 115, anion gap 21, BUN 52, glucose 317, magnesium 2.4, AST 85, and ALT 94. Rest of the metabolic profiles within normal limits. IMPRESSION: 1. Sepsis syndrome. 2. Right lower lobe pneumonia. 3. Multiple electrolyte abnormalities. 4. Mild bronchospasm. 5. Probable dehydration. PLAN: Again, I did discuss the case with the emergency room nurse at length. I have also reviewed the chart at length. The patient presents to [facility] - [facility] - because of fevers for 1 day. In addition, the emergency room nurse also notes shortness of breath on presentation. There are no other pulmonary symptoms reported. On physical exam, there is only minimal bronchospasm noted. I will start the patient on Xopenex nebulizer treatments. I will also start aspiration precautions. The oxygen saturation is currently 100% on the nonrebreather. The emergency room nurse will try to change to nasal cannula. We will watch the saturations closely. Dr. Goode (Infectious Disease) has been called on the case. Clinical status, of this chronically ill patient, does remain guarded. Additional pulmonary intervention will be based on the above results as well as the clinical status of the patient. I will discuss the above with Dr. Nicholson in the next few moments. Thank you very much for this pulmonary consultation. Medardo Whittaker MD [facility]
--- NOTE | 2017-04-12 22:58 | CON ---
DATE: 04/12/2017 CARDIOLOGY CONSULTATION HISTORY OF PRESENT ILLNESS: The patient is a 76-year-old male who presented with pneumonia from a subacute rehab. The patient's past medical history is notable for history of diabetes mellitus, hypertension as well as progressive dementia. The patient has documented triple-vessel CAD in the past by cardiac catheterization. Because of his recurrent infections, revascularization was delayed. The patient denies chest pain according to his family. The rest of review of systems is unavailable. PHYSICAL EXAMINATION: GENERAL: On physical exam, the man is in bed, unable to carry a conversation. The patient is in no acute distress. VITAL SIGNS: Blood pressure 113/66, the heart rate is in the 70s, temperature is 103. NECK: Negative JVD. LUNGS: Without rales. HEART: S1, S2. EXTREMITIES: Without edema. EKG shows normal sinus rhythm with diffuse ST-T changes. LABORATORY DATA: Sodium is 157, BUN and creatinine 52 and 1.3, glucose is 317, hemoglobin is 16.2 with a white count of 11.8. IMPRESSION: 1. Pneumonia. 2. Progressive dementia. 3. Diabetes mellitus. 4. History of triple-vessel coronary artery disease. Given these findings, the treatment for his coronary artery disease certainly needs to be on hold until his sepsis is resolved. In addition, given his progressive dementia which has affected his ability to interact, medical therapy might be a better choice. I agree with daily aspirin. We will increase his metoprolol to 25 b.i.d. We will add statin therapy. Janusz Landry MD
[2017-04-13] MEDS: Levalbuterol 0.63 MG/3 ML Inhal Soln UD IH SCH ×5 (02:31→23:43)
[2017-04-13] MEDS ORDERED: Sodium Chloride 0.9% 250 ML IV STA (02:35)
--- NOTE | 2017-04-13 02:39 | CP.PCM.PN ---
Subjective - Date & Time of Evaluation Date of Evaluation: 04/13/17 Time of Evaluation: 02:36 - Subjective Subjective: Patient was seen at bedside because BP was 96/67.Hypoxia. BP 96/67, T100*F, HR 66/min, pulse ox 92% on 4L/min after suctioning ,prior to suctioning it was 85%. No pain meds Got lopressor 25 mg PO at 6.30 PM Medical record was reviewed. This 76 year old male was admitted with fever , sepsis , PNA. Has PMH of CHF, HTN,CAD, Alzheimer's disease, cardiac cath, pigtail cath in gall bladder. Objective - Vital Signs/Intake and Output Vital Signs (last 24 hours): Temp Pulse Resp BP Pulse Ox 100.1 F H 66 20 100/60 95 04/13/17 01:29 04/13/17 00:45 04/13/17 00:45 04/13/17 00:45 04/13/17 00:45 Intake and Output: 04/12/17 04/13/17 18:59 06:59 Intake Total 0 Balance 0 - Medications Medications: Current Medications Acetaminophen (Tylenol 650 Mg Supp) 650 mg RC Q4H PRN PRN Reason: Fever >100.4 F Last Admin: 04/13/17 01:29 Dose: 650 mg Aspirin (Ecotrin) 81 mg PO DAILY [facility] Last Admin: 04/12/17 09:56 Dose: 81 mg Atorvastatin Calcium (Lipitor) 40 mg PO DIN [facility] Last Admin: 04/12/17 18:23 Dose: 40 mg Donepezil HCl (Aricept) 10 mg PO HS [facility] Last Admin: 04/12/17 21:01 Dose: 10 mg Sodium Chloride (Sodium Chloride 0.45%) 1,000 mls @ 60 mls/hr IV .[id number] [facility] Last Admin: 04/12/17 11:05 Dose: 60 mls/hr Meropenem (Merrem Iv 1 Gm Premix) 50 mls @ 100 mls/hr IVPB Q12 [facility] PRN Reason: Protocol Last Admin: 04/12/17 21:01 Dose: 100 mls/hr Doxycycline Hyclate 100 mg/ (Sodium Chloride) 100 mls @ 100 mls/hr IVPB Q12 [facility] PRN Reason: Protocol Last Admin: 04/12/17 21:40 Dose: 100 mls/hr Linezolid (Zyvox 600mg/300ml D5w) 600 mg in 300 mls @ 200 mls/hr IVPB Q12 [facility] PRN Reason: Protocol Stop: 04/19/17 10:01 Last Admin: 04/12/17 23:01 Dose: 200 mls/hr Insulin Human Regular (Humulin R High) 0 units SC ACHS [facility] PRN Reason: Protocol Last Admin: 04/12/17 21:58 Dose: Not Given Levalbuterol HCl (Xopenex) 0.63 mg IH [id number] [facility] Last Admin: 04/13/17 02:31 Dose: 0.63 mg Levothyroxine Sodium (Synthroid) 75 mcg PO DAILY [facility] Last Admin: 04/12/17 10:44 Dose: 75 mcg Metoprolol Tartrate (Lopressor) 25 mg PO BID [facility] Last Admin: 04/12/17 18:23 Dose: 25 mg Oseltamivir Phosphate (Tamiflu Susp) 30 mg PO BID [facility] PRN Reason: Protocol Stop: 04/17/17 10:01 Last Admin: 04/12/17 18:43 Dose: 1 u - Labs Labs: PT 16.1 SECONDS (9.4-12.5) H 04/12/17 06:50 INR 1.39 (0.93-1.08) H 04/12/17 06:50 APTT 31.6 Seconds (25.1-36.5) 04/12/17 06:50 - Constitutional Appears: No Acute Distress - Head Exam Head Exam: ATRAUMATIC, NORMAL INSPECTION, NORMOCEPHALIC - Eye Exam Eye Exam: Normal appearance - ENT Exam ENT Exam: Normal External Ear Exam - Neck Exam Neck Exam: Normal Inspection - Respiratory Exam Respiratory Exam: NORMAL BREATHING PATTERN - Cardiovascular Exam Cardiovascular Exam: absent: JVD - GI/Abdominal Exam GI & Abdominal Exam: absent: Distended - Rectal Exam Rectal Exam: Deferred - Exam Additional comments: Deferred. - Extremities Exam Extremities Exam: Normal Inspection - Back Exam Back Exam: NORMAL INSPECTION - Neurological Exam Neurological Exam: Awake - Psychiatric Exam Psychiatric exam: Normal Affect, Normal Mood - Skin Skin Exam: Dry Assessment and Plan - Assessment and Plan (Free Text) Assessment: Hypotension. Dehydration. CHF. HTN. CAD. Alzheimer's disease. Plan: Rx, 250 cc ns bolus. Continue present management as per PMD.
[2017-04-13 07:55] LABS: MEAN CORPUSCULAR HEMOGLOBIN 30.6 pg (25.0-35.0); MEAN CORPUSCULAR HGB CONC 30.9 g/dl (31.0-37.0); MEAN PLATELET VOLUME 10.5 fl (7.0-11.0); RBC 3.96 10^6/uL (3.5-6.1); RED CELL DISTRIBUTION WIDTH 14.7 % (11.5-14.5); WHITE BLOOD COUNT 4.6 10^3/ul (4.5-11.0)
[2017-04-13 07:59] LABS: HEMOGLOBIN 12.1 g/dL (14.0-18.0)
--- NOTE | 2017-04-13 08:05 | HP ---
HISTORY OF PRESENT ILLNESS: I know Max very well from the [facility] and before that he has been my patient very long time. He is a 76-year-old male who has been having some high temperatures in the [facility]. We have been giving him medications there. He failed outpatient treatment at the [facility] and eventually the temperature got too high. He was sent to the Emergency Room this morning. He has 102 to 103 in the past morning despite Tylenol and antibiotics. He is a 76-year-old man who has got Alzheimer's disease, CHF, hypertension, he has severe CAD. Cardiology will not do a cath on him because of his Alzheimer's, he would not lay as flat. He also has a pigtail catheter in his gallbladder for severe gallbladder disease, but they will not do surgery on him until he has a cardiac cath. So it is a cath 22 and he has had his pigtail catheterization in him for a while. He has a little bit of coughing, but no much. He is alert, fatigued, he looks septic. He does talk too, but at this time he is less talkative. I saw him with his . He has congestive heart failure, hypertension, atherosclerotic heart disease, severe coronary artery disease, pigtail stent for acute cholecystitis for drainage. He has had pneumonias in the past and dementia. He wears glasses. He has renal failure, type II diabetes, hypothyroidism, anemia, prostate cancer history, he has been jaundiced before, gastroesophageal reflux, gastric ulcers, a few cholecystitis with pigtail catheter in his gallbladder for drainage. He is incontinence of urine. He has prostate cancer, prostate cancer with radiation, in the urine in the past, UTIs, depression, history of small bowel obstruction in 1995. Hypertension in the family. Former smoker. Drinks occasionally. No substance. abuse. ALLERGIES: ALLERGIES TO ROCEPHIN. MEDICATIONS: He takes aspirin, Aricept, Feosol, Synthroid, milk of magnesia, Lopressor, ProAmatine, Zofran, Protonix, MiraLax, and acetaminophen. REVIEW OF SYSTEMS: Difficult to do review of system at this time, he is basically nonverbal, but he does usually talk when he is not septic. PHYSICAL EXAMINATION: VITAL SIGNS: A 103.5 temperature, 100 pulse, 40 respiratory rate, 115/74 blood pressure, 92% O2 saturation on room. GENERAL: His head is reddened, toxic appearing. HEENT: Head is normocephalic, atraumatic. He opens his eyes. He will say "Hi ." Mouth is dry and red. Throat is no moisture. Extraocular muscles are intact. NECK: Supple. HEART: Regular, rate, and tachy. LUNGS: Decreased breath sounds bilaterally. Congestion bilaterally mostly on the left. ABDOMEN: Soft and nontender. Positive bowel sounds. He has a pigtail catheter in placed. No guarding, no rebound. EXTREMITIES: Have no edema. NEUROLOGIC: He is alert. Eyes are open. nonverbal at this time for the most part. He is alert. He has been depressed in the past. SKIN: Dry, poor turgor. No apparent ulcers or rashes that I can find. LYMPHATIC: Thyroid midline. No palpable lymphadenopathy appreciated. LABORATORY DATA: He had multiple tests done. Chest x-rays shows findings of concerning for multifocal pneumonia in the right upper lobe and both lower lobes. He has a urine, which is 250 glucose, small leukocytes. He has a 157 sodium. I will take him off the 0.9 and put him on half normal. A 4.4 potassium, BUN is 52, creatinine is 1.3, GFR is 53, sugar is 317, I will put him on coverage. Calcium is 10, magnesium is 2.4, total bilirubin 1.3, AST 85, ALT 94 and alk phos is 75. His lactate is . INR is 1.39. His white count 7.8, hemoglobin 15.2, hematocrit 47.9, and platelet is 223. PLAN: He is here for multifocal pneumonia, sepsis, dementia, and we will get him through with consults with Pulmonary, Infectious Disease, Cardio, and GI. He will be on IV antibiotics, and IV fluids. I will check his labs tomorrow. discussed at length with his . Sean Nicholson DO MTDD
[2017-04-13 08:28] LABS: ALB/GLOB RATIO 1.3 (1.1-1.8); ALBUMIN 2.7 g/dL (3.0-4.8); ALT/SGPT 61 U/L (7-56); AST/SGOT 56 U/L (17-59); BLOOD UREA NITROGEN 40 mg/dL (7-21); CALCIUM 8.8 mg/dL (8.4-10.5); GFR AFRICAN-AMERICAN > 60; GFR NON-AFRICAN AMERICAN > 60
[2017-04-13] MEDS: Insulin Reg-HIGH-Coverage SC SCH ×3 (08:28→17:00)
--- NOTE | 2017-04-13 08:43 | PN ---
DATE: 04/13/2017 PULMONARY PROGRESS NOTE SUBJECTIVE: The patient appears comfortable this morning. He is not short of breath at rest. He does remain very weak appearing. PHYSICAL EXAMINATION: VITAL SIGNS: Temperature is 98.8, pulse is 59, respirations are 18/20, and blood pressure is 99/62. Oxygen saturation on nasal cannula is 93%. HEENT: Normocephalic and atraumatic. NECK: No JVD. CARDIOVASCULAR: Positive S1 and S2. No S3, gallop. LUNGS: Minimal crackles at both lung bases. Less rhonchi. No wheezing. EXTREMITIES: Mild edema. No cyanosis and no clubbing. Calves are nontender to palpation. GASTROINTESTINAL: Abdomen is soft, nontender and nondistended. Bowel sounds are positive. There is a right upper quadrant drain in place. SKIN: No acute rash. NEUROLOGIC: Exam is limited at the present time. IMPRESSION 1. Sepsis syndrome. 2. Right lower lobe pneumonia. 3. Multiple electrolyte abnormalities. 4. Mild bronchospasm. 5. Probable dehydration. PLAN: The patient appears comfortable this morning. He is not short of breath at rest. He does remain very weak appearing. He does state to feeling better overall. On physical exam, his bronchospasm is less. I will continue the current nebulizer treatments for now. In addition, the oxygen saturation is now 93% on nasal cannula. The patient was on a nonrebreather yesterday. I would continue with the antibiotic coverage as per infectious disease. Temperatures are resolving. Repeat a.m. labs are pending. Clinical status of the patient is certainly improved - compared to the initial presentation. However, again, the overall status/prognosis for this patient, chronically ill, remains very guarded at best. I will discuss the above with Dr. Nicholson this morning. Medardo Whittaker MD [facility]
--- NOTE | 2017-04-13 09:04 | CP.PCM.PN ---
<Nereida Garcia - Last Filed: 04/13/17 09:00> Subjective - Date & Time of Evaluation Date of Evaluation: 04/13/17 Time of Evaluation: 09:00 - Subjective Subjective: Gastroenterology Fellow/PGY5 Progress Note Patient denies abdominal pain. Nursing notes temperature max of 103.9 farenheit overnight as well as hypoxia to 85% that improved with suctioning. 12-point review of systems negative except for as above. Objective - Vital Signs/Intake and Output Vital Signs (last 24 hours): Temp Pulse Resp BP Pulse Ox 98.8 F 59 L 20 99/62 L 93 L 04/13/17 04:40 04/13/17 04:40 04/13/17 04:40 04/13/17 04:40 04/13/17 04:40 Intake and Output: 04/13/17 04/13/17 06:59 18:59 Intake Total 0 Output Total 150 Balance -150 - Medications Medications: Current Medications Acetaminophen (Tylenol 650 Mg Supp) 650 mg RC Q4H PRN PRN Reason: Fever >100.4 F Last Admin: 04/13/17 01:29 Dose: 650 mg Aspirin (Ecotrin) 81 mg PO DAILY [facility] Last Admin: 04/12/17 09:56 Dose: 81 mg Atorvastatin Calcium (Lipitor) 40 mg PO DIN [facility] Last Admin: 04/12/17 18:23 Dose: 40 mg Donepezil HCl (Aricept) 10 mg PO HS [facility] Last Admin: 04/12/17 21:01 Dose: 10 mg Sodium Chloride (Sodium Chloride 0.45%) 1,000 mls @ 60 mls/hr IV .[id number] [facility] Last Admin: 04/12/17 11:05 Dose: 60 mls/hr Meropenem (Merrem Iv 1 Gm Premix) 50 mls @ 100 mls/hr IVPB Q12 YOLANDA PRN Reason: Protocol Last Admin: 04/12/17 21:01 Dose: 100 mls/hr Doxycycline Hyclate 100 mg/ (Sodium Chloride) 100 mls @ 100 mls/hr IVPB Q12 YOLANDA PRN Reason: Protocol Last Admin: 04/12/17 21:40 Dose: 100 mls/hr Linezolid (Zyvox 600mg/300ml D5w) 600 mg in 300 mls @ 200 mls/hr IVPB Q12 YOLANDA PRN Reason: Protocol Stop: 04/19/17 10:01 Last Admin: 04/12/17 23:01 Dose: 200 mls/hr Insulin Human Regular (Humulin R High) 0 units SC ACHS YOLANDA PRN Reason: Protocol Last Admin: 04/13/17 08:28 Dose: Not Given Levalbuterol HCl (Xopenex) 0.63 mg IH [id number] [facility] Last Admin: 04/13/17 07:38 Dose: 0.63 mg Levothyroxine Sodium (Synthroid) 75 mcg PO DAILY [facility] Last Admin: 04/12/17 10:44 Dose: 75 mcg Metoprolol Tartrate (Lopressor) 25 mg PO BID [facility] Last Admin: 04/12/17 18:23 Dose: 25 mg Oseltamivir Phosphate (Tamiflu Susp) 30 mg PO BID [facility] PRN Reason: Protocol Stop: 04/17/17 10:01 Last Admin: 04/12/17 18:43 Dose: 1 u - Labs Labs: 04/13/17 07:30 04/13/17 07:30 PT 16.1 SECONDS (9.4-12.5) H 04/12/17 06:50 INR 1.39 (0.93-1.08) H 04/12/17 06:50 APTT 31.6 Seconds (25.1-36.5) 04/12/17 06:50 - Constitutional Appears: Non-toxic, No Acute Distress - Head Exam Head Exam: ATRAUMATIC, NORMOCEPHALIC - Eye Exam Eye Exam: EOMI, PERRL Pupil Exam: PERRL. absent: Miosis, Mydriatic - ENT Exam ENT Exam: Mucous Membranes Moist, Normal Oropharynx - Neck Exam Neck Exam: Full ROM, Normal Inspection - Respiratory Exam Respiratory Exam: Decreased Breath Sounds, Rhonchi. absent: Rales, Wheezes - Cardiovascular Exam Cardiovascular Exam: RRR, +S1, +S2. absent: Gallop, Rubs - GI/Abdominal Exam GI & Abdominal Exam: Soft, Normal Bowel Sounds. absent: Distended, Firm, Guarding, Rigid, Tenderness, Organomegaly, Rebound Additional comments: cholecystostomy tube RUQ with no putput in bag, dressinga nd patient gown with yellow-green bilious drainage - Extremities Exam Extremities Exam: Normal Inspection. absent: Pedal Edema - Neurological Exam Neurological Exam: Alert, Awake - Psychiatric Exam Psychiatric exam: Normal Affect, Normal Mood - Skin Skin Exam: Dry, Intact, Normal Color, Warm Assessment and Plan - Assessment and Plan (Free Text) Assessment: 75 year old male with history of chronic cholecystitis with indwelling PTC 2016 due to poor surgical candidate in setting of 3-vessel CAD on cath 05/2016 ( RCA/LCX/LAD), Prostate cancer s/p Brachytherapy, autoimmune hemolytic anemia, pancytopenia 2/2 myelodysplastic syndrome on bone marrow biopsy 06/2015, GI Bleed requiring transfusion(06/2015), and Alzheimer's Dementia presenting from nursing facility with fever. Active treatment of severe sepsis 2/2 multifocal pneumonia, yeast UTI, and with history of chronic indwelling PTC 2/2 cholecystitis. On record review: 08/2016 ERCP showed CBD stent removal, B/L intrahepatic rarefaction of ducts, normal B/L hepatic ducts, CBD 12mm, sphicterotomy with minor bleed s/p [id number] epinephrine 1cc, balloon sweep with sludge extraction/no stones, and cholangiogram confirming clear biliary tree without filling defects. 11/[address] A/P without contrast showed distended gallbladder without extravasation of contrast from biliary tree and patent cystic and common bile ducts. Plan: >pending CT A/P >ordered cholangiogram to evaluate for extravasation of dye and confirm proper placement >recommend surgery consult to re-evaluate for possible cholecystectomy >LFTs at baseline >on broad spectrum antibiotics >IVF resuscitation >supportive care >will follow clinical course <Joel Miller - Last Filed: 04/13/17 21:35> Objective - Vital Signs/Intake and Output Vital Signs (last 24 hours): Temp Pulse Resp BP Pulse Ox 97.8 F 71 18 103/66 94 L 04/13/17 07:00 04/13/17 17:01 04/13/17 07:00 04/13/17 17:01 04/13/17 07:00 Intake and Output: 04/13/17 04/14/17 18:59 06:59 Intake Total 240 Balance 240 - Medications Medications: Current Medications Acetaminophen (Tylenol 650 Mg Supp) 650 mg RC Q4H PRN PRN Reason: Fever >100.4 F Last Admin: 04/13/17 01:29 Dose: 650 mg Aspirin (Ecotrin) 81 mg PO DAILY [facility] Last Admin: 04/13/17 11:17 Dose: Not Given Atorvastatin Calcium (Lipitor) 40 mg PO DIN [facility] Last Admin: 04/13/17 17:22 Dose: 40 mg Donepezil HCl (Aricept) 10 mg PO HS [facility] Last Admin: 04/12/17 21:01 Dose: 10 mg Meropenem (Merrem Iv 1 Gm Premix) 50 mls @ 100 mls/hr IVPB Q12 YOLANDA PRN Reason: Protocol Last Admin: 04/13/17 10:49 Dose: 100 mls/hr Doxycycline Hyclate 100 mg/ (Sodium Chloride) 100 mls @ 100 mls/hr IVPB Q12 YOLANDA PRN Reason: Protocol Last Admin: 04/13/17 11:19 Dose: 100 mls/hr Linezolid (Zyvox 600mg/300ml D5w) 600 mg in 300 mls @ 200 mls/hr IVPB Q12 YOLANDA PRN Reason: Protocol Stop: 04/19/17 10:01 Last Admin: 04/13/17 14:11 Dose: Not Given Sodium Chloride (Sodium Chloride 0.45%) 1,000 mls @ 100 mls/hr IV .Q10H [facility] Last Admin: 04/13/17 17:32 Dose: 100 mls/hr Insulin Human Regular (Humulin R High) 0 units SC ACHS YOLANDA PRN Reason: Protocol Last Admin: 04/13/17 17:00 Dose: Not Given Levalbuterol HCl (Xopenex) 0.63 mg IH [id number] [facility] Last Admin: 04/13/17 20:06 Dose: 0.63 mg Levothyroxine Sodium (Synthroid) 75 mcg PO DAILY [facility] Last Admin: 04/13/17 10:47 Dose: 75 mcg Metoprolol Tartrate (Lopressor) 25 mg PO BID [facility] Last Admin: 04/13/17 17:01 Dose: Not Given Oseltamivir Phosphate (Tamiflu Susp) 30 mg PO BID YOLANDA PRN Reason: Protocol Stop: 04/17/17 10:01 Last Admin: 04/13/17 17:22 Dose: 1 u - Labs Labs: 04/13/17 07:30 04/13/17 07:30 PT 16.1 SECONDS (9.4-12.5) H 04/12/17 06:50 INR 1.39 (0.93-1.08) H 04/12/17 06:50 APTT 31.6 Seconds (25.1-36.5) 04/12/17 06:50 Attending/Attestation - Attestation I have personally seen and examined this patient.: Yes I have fully participated in the care of the patient.: Yes I have reviewed all pertinent clinical information, including history, physical exam and plan: Yes Notes (Text): 04/13/17 21:28 75 year old male with h/o CAD, Prostate ca, autoimmune hemolytic anemia, MDS, Dementia, cholecystitis s/p percutaneous cholecystostomy tube, prior ERCP with sphincterotomy and stone/sludge extraction admitted with pneumonia. 1. Chronic cholecystitis 2. Hypernatremia Plan: -reviewed CT A/P and perc cholangiogram -drain appears to be in place -normal LFTs -would recommend surgical consult -typically, perc rosalind drains are used as a bridge to surgery to definitively remove the gallbladder -if cholecystectomy is never going to be an option due to surgical risk, then the alternative is to maintain the drain in place indefinitely -he likely has significant GI losses of fluid through the tube/fistula around the tube, that may even be contributing to hypernatremia -the alternative is to remove the drain and see how he does, although he would have risk of recurrent cholecytitis, other gallstone related complications, or possibly ongoing drainage through the fistulous tract from the drain -continue antibiotics
--- NOTE | 2017-04-13 10:15 | CT ---
PROCEDURE: CT Abdomen and Pelvis without intravenous contrast HISTORY: evaluate cholecystostomy tube placement COMPARISON: 12/17/2016 TECHNIQUE: Without contrast.. Contrast Dose: Radiation dose: Total exam DLP = 397 mGy-cm. This CT exam was performed using one or more of the following dose reduction techniques: Automated exposure control, adjustment of the mA and/or kV according to patient size, and/or use of iterative reconstruction technique. FINDINGS: LOWER THORAX: Bibasilar consolidation is seen which was not present on previous exam LIVER: Unremarkable. No gross lesion or ductal dilatation. GALLBLADDER AND BILE DUCTS: The pigtail catheter is in good position within the gallbladder. There is no displacement of the catheter or evidence of extravasation PANCREAS: Unremarkable. No gross lesion or ductal dilatation. SPLEEN: Unremarkable. ADRENALS: Unremarkable. No mass. KIDNEYS AND URETERS: Unremarkable. No hydronephrosis. No solid mass. VASCULATURE: Unremarkable. No aortic aneurysm. BOWEL: Unremarkable. No obstruction. No gross mural thickening. There is a moderate amount of fecal impaction APPENDIX: Unremarkable. Normal appendix. PERITONEUM: Unremarkable. No free fluid. No free air. LYMPH NODES: Unremarkable. No enlarged lymph nodes. BLADDER: There is a large bladder diverticulum on the right side and smaller diverticulum bilaterally REPRODUCTIVE: Unremarkable. BONES: No acute fracture. OTHER FINDINGS: None. IMPRESSION: The pigtail catheter is in good position within the gallbladder. There is no displacement of the catheter or evidence of extravasation New bibasilar consolidation at the lung bases.
[2017-04-13] MEDS: Levothyroxine 75 MCG TAB PO SCH (10:47)
[2017-04-13] MEDS: Meropenem IV 1 gm in NS 50 ML IVPB SCH ×2 (10:49→21:46)
[2017-04-13] MEDS ORDERED: Iohexol 240 (50 ml) ONE (11:47)
[2017-04-13] MEDS: Oseltamivir 6 MG/ML PO SCH ×2 (11:51→17:22)
--- NOTE | 2017-04-13 12:17 | CP.PCM.CON ---
History of Present Illness - History of Present Illness History of Present Illness: GENERAL SURGERY CONSULT NOTE FOR DR. JOHNSON. History taken from patient, patient's /poa, and note. 75 year old male with PMHx of Alzheimer's CHF Past Patient History - Infectious Disease Hx of Infectious Diseases: None - Past Social History Smoking Status: Former Smoker - CARDIAC Hx Congestive Heart Failure: Yes Hx Hypertension: Yes Hx Pacemaker: No Other/Comment: ashd - PULMONARY Hx Pneumonia: Yes - NEUROLOGICAL Hx Alzheimer's Disease: Yes Hx Dementia: Yes - HEENT Hx HEENT Problems: Yes (WEARS RX GLASSES) - RENAL Hx Chronic Kidney Disease: Yes Hx Renal Failure: Yes (congenital) - ENDOCRINE/METABOLIC Hx Diabetes Mellitus Type 2: Yes Hx Hypothyroidism: Yes - HEMATOLOGICAL/ONCOLOGICAL Hx Anemia: Yes Hx Cancer: Yes (prostate) - INTEGUMENTARY Hx Dermatological Problems: Yes (JAUNDICED SKIN 06-21-15) - MUSCULOSKELETAL/RHEUMATOLOGICAL Hx Musculoskeletal Disorders: No - GASTROINTESTINAL Hx Gastroesophageal Reflux: Yes Other/Comment: acute cholecystitis/tube in gallbladder - GENITOURINARY/GYNECOLOGICAL Hx Genitourinary Disorders: Yes Hx Incontinence: Yes Hx Prostate Cancer: Yes Hx Prostate Problems: Yes (PROSTATE CA WITH RADIATION-SEEDING) Other/Comment: esbl/uti - PSYCHIATRIC Hx Depression: Yes Hx Substance Use: No - SURGICAL HISTORY Other/Comment: BOWEL OBSTRUCTION-1995 - ANESTHESIA Hx Anesthesia Reactions: No Hx Malignant Hyperthermia: No Meds Allergies/Adverse Reactions: Allergies Allergy/AdvReac Type Severity Reaction Status Date / Time ceftriaxone sodium Allergy RASH Verified 04/12/17 06:37 [From Rocephin] - Medications Medications: Current Medications Acetaminophen (Tylenol 650 Mg Supp) 650 mg RC Q4H PRN PRN Reason: Fever >100.4 F Last Admin: 04/13/17 01:29 Dose: 650 mg Aspirin (Ecotrin) 81 mg PO DAILY [facility] Last Admin: 04/13/17 11:17 Dose: Not Given Atorvastatin Calcium (Lipitor) 40 mg PO DIN [facility] Last Admin: 04/12/17 18:23 Dose: 40 mg Donepezil HCl (Aricept) 10 mg PO HS [facility] Last Admin: 04/12/17 21:01 Dose: 10 mg Sodium Chloride (Sodium Chloride 0.45%) 1,000 mls @ 60 mls/hr IV .[id number] [facility] Last Admin: 04/12/17 11:05 Dose: 60 mls/hr Meropenem (Merrem Iv 1 Gm Premix) 50 mls @ 100 mls/hr IVPB Q12 YOLANDA PRN Reason: Protocol Last Admin: 04/13/17 10:49 Dose: 100 mls/hr Doxycycline Hyclate 100 mg/ (Sodium Chloride) 100 mls @ 100 mls/hr IVPB Q12 YOLANDA PRN Reason: Protocol Last Admin: 04/13/17 11:19 Dose: 100 mls/hr Linezolid (Zyvox 600mg/300ml D5w) 600 mg in 300 mls @ 200 mls/hr IVPB Q12 YOLANDA PRN Reason: Protocol Stop: 04/19/17 10:01 Last Admin: 04/12/17 23:01 Dose: 200 mls/hr Insulin Human Regular (Humulin R High) 0 units SC ACHS YOLANDA PRN Reason: Protocol Last Admin: 04/13/17 12:02 Dose: Not Given Levalbuterol HCl (Xopenex) 0.63 mg IH [id number] [facility] Last Admin: 04/13/17 07:38 Dose: 0.63 mg Levothyroxine Sodium (Synthroid) 75 mcg PO DAILY [facility] Last Admin: 04/13/17 10:47 Dose: 75 mcg Metoprolol Tartrate (Lopressor) 25 mg PO BID [facility] Last Admin: 04/13/17 10:47 Dose: Not Given Oseltamivir Phosphate (Tamiflu Susp) 30 mg PO BID [facility] PRN Reason: Protocol Stop: 04/17/17 10:01 Last Admin: 04/13/17 11:51 Dose: 1 u Results - Vital Signs Recent Vital Signs: Last Vital Signs Temp 97.8 F 04/13/17 07:00 Pulse 58 L 04/13/17 10:47 Resp 18 04/13/17 07:00 BP 99/62 L 04/13/17 10:47 Pulse Ox 94 L 04/13/17 07:00 - Labs Result Diagrams: 04/13/17 07:30 04/13/17 07:30 Labs: Laboratory Results - last 24 hr 04/12/17 04/12/17 04/12/17 09:48 10:24 11:30 WBC RBC Hgb Hct MCV MCH MCHC RDW Plt Count MPV pO2 35 VBG pH 7.32 VBG pCO2 57.0 VBG HCO3 29.4 H VBG Total CO2 31.1 H VBG O2 Sat (Calc) 65.4 H VBG Base Excess 2.0 VBG Potassium 4.2 Sodium 157.0 H Chloride 120.0 H Glucose 276 H Lactate 2.1 FiO2 21.0 Potassium Carbon Dioxide Anion Gap BUN Creatinine Est GFR ( Amer) Est GFR (Non-Af Amer) POC Glucose (mg/dL) Random Glucose Calcium Total Bilirubin AST ALT Alkaline Phosphatase Total Protein Albumin Globulin Albumin/Globulin Ratio Procalcitonin 2.03 H Venous Blood Potassium 4.2 Ur L.pneumophila Ag Negative 04/12/17 04/12/17 04/12/17 12:27 16:25 21:53 WBC RBC Hgb Hct MCV MCH MCHC RDW Plt Count MPV pO2 VBG pH VBG pCO2 VBG HCO3 VBG Total CO2 VBG O2 Sat (Calc) VBG Base Excess VBG Potassium Sodium Chloride Glucose Lactate FiO2 Potassium Carbon Dioxide Anion Gap BUN Creatinine Est GFR ( Amer) Est GFR (Non-Af Amer) POC Glucose (mg/dL) 251 H 191 H 243 H Random Glucose Calcium Total Bilirubin AST ALT Alkaline Phosphatase Total Protein Albumin Globulin Albumin/Globulin Ratio Procalcitonin Venous Blood Potassium Ur L.pneumophila Ag 04/13/17 04/13/17 04/13/17 07:30 07:30 11:33 WBC 4.6 D RBC 3.96 Hgb 12.1 L D Hct 39.2 L MCV 99.0 MCH 30.6 MCHC 30.9 L RDW 14.7 H Plt Count 154 MPV 10.5 pO2 VBG pH VBG pCO2 VBG HCO3 VBG Total CO2 VBG O2 Sat (Calc) VBG Base Excess VBG Potassium Sodium 157 H* Chloride 124 H Glucose Lactate FiO2 Potassium 4.0 Carbon Dioxide 24 Anion Gap 14 BUN 40 H Creatinine 1.0 Est GFR ( Amer) > 60 Est GFR (Non-Af Amer) > 60 POC Glucose (mg/dL) 192 H Random Glucose 240 H Calcium 8.8 Total Bilirubin 0.7 AST 56 ALT 61 H Alkaline Phosphatase 54 Total Protein 4.8 L Albumin 2.7 L Globulin 2.1 Albumin/Globulin Ratio 1.3 Procalcitonin Venous Blood Potassium Ur L.pneumophila Ag
[2017-04-13] MEDS: Linezolid 600 mg in D5W 300 ml 600 MG/300 ML BAG IVPB SCH ×2 (14:11→23:47)
--- NOTE | 2017-04-13 16:20 | CP.PCM.CON ---
History of Present Illness - History of Present Illness History of Present Illness: Surgery Consult note. Dr. Krishnamurthy 76yo M with PMH of CHF, severe CAD, HTN, Alzheimers, renal failure, and DM here for evaluation of Fever and AMS. Patient history obtained from medical record review and who was at bedside. Patient was sent to [facility] from [facility] by his PMD Dr. Nicholson because of 24 hr fever that peaked 102-103 F and AMS. It was also noted that the patient has had yellow drainage around the cholecystostomy drain site over the past week. Patient is not a reliable historian due to dementia/alzheimer's. Patient has a history of gallbladder disease and had a CT tube placed by Dr. Pierce (coverning Dr. Krishnamurthy) in 2012. CT scan of abdomen revealed pigtail catheter in good position within the gallbladder and no displacement of the catheter or evidence of extravasation. Unable to obtain ROS due to patients condition. PMHx: CHF, HTN, severe CAD, Alzheimers, DM, Anemia, Prostate CA, GERD, hypothyroid, urinary incontinence PSHx: Open Cholecystostomy tube placement by Dr. Pierce Social hx: former smoker; Lives in [facility]. Allergy: Rocephin Review of Systems - Review of Systems Systems not reviewed;Unavailable: Dementia, Altered Mental Status Past Patient History - Infectious Disease Hx of Infectious Diseases: None - Past Social History Smoking Status: Former Smoker - CARDIAC Hx Congestive Heart Failure: Yes Hx Hypertension: Yes Hx Pacemaker: No Other/Comment: ashd - PULMONARY Hx Pneumonia: Yes - NEUROLOGICAL Hx Alzheimer's Disease: Yes Hx Dementia: Yes - HEENT Hx HEENT Problems: Yes (WEARS RX GLASSES) - RENAL Hx Chronic Kidney Disease: Yes Hx Renal Failure: Yes (congenital) - ENDOCRINE/METABOLIC Hx Diabetes Mellitus Type 2: Yes Hx Hypothyroidism: Yes - HEMATOLOGICAL/ONCOLOGICAL Hx Anemia: Yes Hx Cancer: Yes (prostate) - INTEGUMENTARY Hx Dermatological Problems: Yes (JAUNDICED SKIN 416) - MUSCULOSKELETAL/RHEUMATOLOGICAL Hx Musculoskeletal Disorders: No - GASTROINTESTINAL Hx Gastroesophageal Reflux: Yes Other/Comment: acute cholecystitis/tube in gallbladder - GENITOURINARY/GYNECOLOGICAL Hx Genitourinary Disorders: Yes Hx Incontinence: Yes Hx Prostate Cancer: Yes Hx Prostate Problems: Yes (PROSTATE CA WITH RADIATION-SEEDING) Other/Comment: esbl/uti - PSYCHIATRIC Hx Depression: Yes Hx Substance Use: No - SURGICAL HISTORY Other/Comment: BOWEL OBSTRUCTION-1995 - ANESTHESIA Hx Anesthesia Reactions: No Hx Malignant Hyperthermia: No Meds Allergies/Adverse Reactions: Allergies Allergy/AdvReac Type Severity Reaction Status Date / Time ceftriaxone sodium Allergy RASH Verified 04/12/17 06:37 [From Rocephin] - Medications Medications: Current Medications Acetaminophen (Tylenol 650 Mg Supp) 650 mg RC Q4H PRN PRN Reason: Fever >100.4 F Last Admin: 04/13/17 01:29 Dose: 650 mg Aspirin (Ecotrin) 81 mg PO DAILY [facility] Last Admin: 04/13/17 11:17 Dose: Not Given Atorvastatin Calcium (Lipitor) 40 mg PO DIN [facility] Last Admin: 04/12/17 18:23 Dose: 40 mg Donepezil HCl (Aricept) 10 mg PO HS [facility] Last Admin: 04/12/17 21:01 Dose: 10 mg Sodium Chloride (Sodium Chloride 0.45%) 1,000 mls @ 60 mls/hr IV .[id number] [facility] Last Admin: 04/12/17 11:05 Dose: 60 mls/hr Meropenem (Merrem Iv 1 Gm Premix) 50 mls @ 100 mls/hr IVPB Q12 YOLANDA PRN Reason: Protocol Last Admin: 04/13/17 10:49 Dose: 100 mls/hr Doxycycline Hyclate 100 mg/ (Sodium Chloride) 100 mls @ 100 mls/hr IVPB Q12 YOLANDA PRN Reason: Protocol Last Admin: 04/13/17 11:19 Dose: 100 mls/hr Linezolid (Zyvox 600mg/300ml D5w) 600 mg in 300 mls @ 200 mls/hr IVPB Q12 YOLANDA PRN Reason: Protocol Stop: 04/19/17 10:01 Last Admin: 04/13/17 14:11 Dose: Not Given Insulin Human Regular (Humulin R High) 0 units SC ACHS YOLANDA PRN Reason: Protocol Last Admin: 04/13/17 12:02 Dose: Not Given Levalbuterol HCl (Xopenex) 0.63 mg IH [id number] [facility] Last Admin: 04/13/17 15:11 Dose: 0.63 mg Levothyroxine Sodium (Synthroid) 75 mcg PO DAILY [facility] Last Admin: 04/13/17 10:47 Dose: 75 mcg Metoprolol Tartrate (Lopressor) 25 mg PO BID [facility] Last Admin: 04/13/17 10:47 Dose: Not Given Oseltamivir Phosphate (Tamiflu Susp) 30 mg PO BID [facility] PRN Reason: Protocol Stop: 04/17/17 10:01 Last Admin: 04/13/17 11:51 Dose: 1 u Physical Exam - Constitutional Appears: Non-toxic, No Acute Distress - Head Exam Head Exam: ATRAUMATIC, NORMAL INSPECTION, NORMOCEPHALIC - Eye Exam Eye Exam: EOMI. absent: Scleral icterus - ENT Exam ENT Exam: Mucous Membranes Moist - Respiratory Exam Respiratory Exam: NORMAL BREATHING PATTERN. absent: Accessory Muscle Use Additional comments: currently receiving breathing treatment - Cardiovascular Exam Cardiovascular Exam: absent: JVD - GI/Abdominal Exam GI & Abdominal Exam: Soft. absent: Distended, Firm, Guarding, Rigid, Tenderness Additional comments: Cholecystostomy tube in place with silk suture. Bag with minimal dark brown/ yellow (bilious) fluid. Dressing clean, dry and intact. Midline laparotomy scar intact, well-healed. Soft, No tenderness to palpation. No Rebound, no guarding. - Extremities Exam Extremities exam: Positive for: normal inspection. Negative for: calf tenderness - Neurological Exam Neurological exam: Alert Additional comments: Alert; Oriented to person only. - Skin Skin Exam: Dry, Intact, Normal Color, Warm Results - Vital Signs Recent Vital Signs: Last Vital Signs Temp 97.8 F 04/13/17 07:00 Pulse 58 L 04/13/17 10:47 Resp 18 04/13/17 07:00 BP 99/62 L 04/13/17 10:47 Pulse Ox 94 L 04/13/17 07:00 - Labs Result Diagrams: 04/13/17 07:30 04/13/17 07:30 Labs: Laboratory Results - last 24 hr 04/12/17 04/12/17 04/12/17 09:48 10:24 16:25 WBC RBC Hgb Hct MCV MCH MCHC RDW Plt Count MPV Sodium Potassium Chloride Carbon Dioxide Anion Gap BUN Creatinine Est GFR ( Amer) Est GFR (Non-Af Amer) POC Glucose (mg/dL) 191 H Random Glucose Calcium Total Bilirubin AST ALT Alkaline Phosphatase Total Protein Albumin Globulin Albumin/Globulin Ratio Procalcitonin 2.03 H Ur L.pneumophila Ag Negative 04/12/17 04/13/17 04/13/17 21:53 07:30 07:30 WBC 4.6 D RBC 3.96 Hgb 12.1 L D Hct 39.2 L MCV 99.0 MCH 30.6 MCHC 30.9 L RDW 14.7 H Plt Count 154 MPV 10.5 Sodium 157 H* Potassium 4.0 Chloride 124 H Carbon Dioxide 24 Anion Gap 14 BUN 40 H Creatinine 1.0 Est GFR ( Amer) > 60 Est GFR (Non-Af Amer) > 60 POC Glucose (mg/dL) 243 H Random Glucose 240 H Calcium 8.8 Total Bilirubin 0.7 AST 56 ALT 61 H Alkaline Phosphatase 54 Total Protein 4.8 L Albumin 2.7 L Globulin 2.1 Albumin/Globulin Ratio 1.3 Procalcitonin Ur L.pneumophila Ag 04/13/17 04/13/17 11:33 15:52 WBC RBC Hgb Hct MCV MCH MCHC RDW Plt Count MPV Sodium Potassium Chloride Carbon Dioxide Anion Gap BUN Creatinine Est GFR ( Amer) Est GFR (Non-Af Amer) POC Glucose (mg/dL) 192 H 261 H Random Glucose Calcium Total Bilirubin AST ALT Alkaline Phosphatase Total Protein Albumin Globulin Albumin/Globulin Ratio Procalcitonin Ur L.pneumophila Ag Assessment & Plan - Assessment and Plan (Free Text) Assessment: 76yo M with multiple co-morbidities, here with AMS, Fever. Surgery consulted for evaluation of leaking RUQ Cholecystostomy tube. - CT scan noted. Plan: - f/u Cholecystostomy tube cholangiogram - Monitor for continued drainage around CT tube skin insertion site. - Dressing change as needed: Dry Gauze and paper tape. - Medically maximize as per Primary team Further recs as per Dr. Krishnamurthy surgery pager: [phone]
[2017-04-13] MEDS: Sodium Chloride 0.45% 1,000 ML IV SCH (17:32)
--- NOTE | 2017-04-13 17:33 | RAD ---
PROCEDURE: Fluoroscopy up to 1 hour HISTORY: evaluate cholecystostomy tube placement COMPARISON: TECHNIQUE: Fluoroscopy was performed in the Radiology department. 1.7 minutes of fluoro time were used. 50 cc of Omnipaque 240 was utilized. FINDINGS: There is a preexisting pigtail catheter in the gallbladder. Initially there was some resistance to flow probably due to some debris within the catheter. Contrast flowed into the gallbladder with no extravasation. There is opacification of the cystic duct and common bile duct with contrast flowing into the duodenum. IMPRESSION: As above
--- NOTE | 2017-04-13 20:29 | PN ---
DATE: SUBJECTIVE: I saw him resting comfortably in bed. He is more alert today than last night when I admitted him, although he still quite sick. He does seem a little bit better. I had a long discussion with his today about his prognosis and what is going on with him. He is on multiple medications for a bad infection. PHYSICAL EXAMINATION VITAL SIGNS: 97.8 temperature now, was 103 the other day, 58 pulse, 99/62 blood pressure, 18 respiratory rate, 94% O2 sat on 4 liters nasal cannula. HEENT: Head is atraumatic, normocephalic. HEART: Regular rate. LUNGS: Decreased breath sounds bilaterally, but clear for the most part. ABDOMEN: Soft. Decreased bowel sounds were present. No guarding. No rebound. He has a pigtail stent placed in the gallbladder, which I think is working. EXTREMITIES: No edema. MEDICATIONS: He is currently on Zyvox, Xopenex, Tylenol, Tamiflu, Synthroid, IV fluids, Merrem IV, Lopressor, Lipitor, insulin, Ecotrin, doxycycline IV, and Aricept. LABORATORY DATA: He has a 157 sodium, I called in renal, did not go down with IV fluids, he has a 124 chloride, his is BUN is 40, creatinine 1, GFR is greater than 60, sugar is 192, calcium 8.8, total bili is 0.7, AST is 56, ALT is 61, alk phos 54, total protein is 4.8. His lactate was 3, it is now down to 2.1 on triple antibiotics. He has 1.39 INR. White count was elevated, now it is 4.6, hemoglobin 12.1, hematocrit 39.2, platelets 154. ASSESSMENT AND PLAN: He is being seen by multiple physicians, Gastrointestinal, Cardiology, Surgery, Pulmonary, Infectious Disease. He had a CT scan of his abdomen and pelvis which showed the pigtail catheter is in good position within the gallbladder. There is no displacement of the catheter, evidence of extravasation, new bibasilar consolidation of the lung bases. He is here for numerous reasons, severe sepsis, acute renal failure, multifocal community-acquired pneumonia, gram-negative positive cocci, history of septic shock in the past. He has severe coronary artery disease, cannot do a catheterization due to his mental status of Alzheimer's; therefore they will not do the cholecystectomy. He is on Zyvox, Merrem and doxy and Tamiflu. We will continue with aggressive treatment and care. We will check his labs tomorrow. Sean Nicholson DO MTDRogelio
--- NOTE | 2017-04-13 21:09 | PN ---
CARDIOLOGY FOLLOWUP DATE: 04/13/2017 SUBJECTIVE: The patient remains lethargic, but in no distress in bed. OBJECTIVE: VITAL SIGNS: Blood pressure is 99/62 and heart rate in the 50s. NECK: Negative JVD. LUNGS: Without rales. HEART: Reveal S1 and S2. EXTREMITIES: Without edema. LABORATORY DATA: Hemoglobin is 12.1. Chemistries; sodium is 157, BUN and creatinine is 40 and 1.0. IMPRESSION: 1. Altered mental status. 2. Lethargy. 3. Triple vessel coronary artery disease. 4. Diabetes mellitus. 5. Progressive dementia. PLAN: Given these findings, the patient is tolerating medical therapy for his coronary artery disease. We will continue his aspirin, beta-blockers, and statin therapy. Janusz Landry MD
[2017-04-14] MEDS: Levalbuterol 0.63 MG/3 ML Inhal Soln UD IH SCH ×5 (01:14→23:46)
--- NOTE | 2017-04-14 01:33 | PN ---
DATE: 04/13/2017 SUBJECTIVE: The patient is in bed, in no acute distress, nontoxic. PHYSICAL EXAMINATION: VITAL SIGNS: Temperature is 98, T-max is 102. HEENT: Unremarkable. NECK: Supple. LUNGS: Decreased breath sounds. HEART: Normal S1 and S2. ABDOMEN: Soft and nontender. LABORATORY DATA: Reveals a white count of 11,800, hemoglobin of 15. Chemistries are noted. BUN of 14, creatinine of 1.0. Procalcitonin is 2.0. WBCs are 20 to 25. Serology Legionella antigen is negative and influenza is negaitive. Microbiology reveals the blood culture is negative. MEDICATIONS: Review of the medication reveals the patient to be on Zyvox, meropenem, doxycycline. ASSESSMENT AND PLAN: This is a 76-year-old male who was seen earlier this morning in 575, bed 1 with Alzheimer's dementia, hemolytic anemia, prostate cancer, history of depression, and bowel obstruction. He was admitted with severe sepsis with acute renal failure, multifocal healthcare-associated pneumonia with possible gram-positive cocci and possible gram-negative jade with elevated procalcitonin. Currently on Zyvox, meropenem, doxycycline, and Tamiflu. We will follow with you. The renal function appears to be improving. Padilla Goode MD
--- NOTE | 2017-04-14 07:36 | CP.PCM.PN ---
<Nereida Garcia - Last Filed: 04/14/17 10:35> Subjective - Date & Time of Evaluation Date of Evaluation: 04/14/17 Time of Evaluation: 07:30 - Subjective Subjective: Gastroenterology Fellow/PGY5 Progress Note Patient denies abdominal pain. Tolerating diet. Afebrile and stable respiratory status overnight. 12-point review of systems negative except for as above. Objective - Vital Signs/Intake and Output Vital Signs (last 24 hours): Temp Pulse Resp BP Pulse Ox 97.9 F 71 20 103/66 93 L 04/13/17 16:00 04/13/17 17:01 04/13/17 16:00 04/13/17 17:01 04/13/17 16:00 Intake and Output: 04/14/17 04/14/17 06:59 18:59 Intake Total 360 0 Output Total 600 0 Balance -240 0 - Medications Medications: Current Medications Acetaminophen (Tylenol 650 Mg Supp) 650 mg RC Q4H PRN PRN Reason: Fever >100.4 F Last Admin: 04/13/17 01:29 Dose: 650 mg Aspirin (Ecotrin) 81 mg PO DAILY [facility] Last Admin: 04/13/17 11:17 Dose: Not Given Atorvastatin Calcium (Lipitor) 40 mg PO DIN [facility] Last Admin: 04/13/17 17:22 Dose: 40 mg Donepezil HCl (Aricept) 10 mg PO HS [facility] Last Admin: 04/13/17 21:53 Dose: 10 mg Meropenem (Merrem Iv 1 Gm Premix) 50 mls @ 100 mls/hr IVPB Q12 [facility] PRN Reason: Protocol Last Admin: 04/13/17 21:46 Dose: 100 mls/hr Doxycycline Hyclate 100 mg/ (Sodium Chloride) 100 mls @ 100 mls/hr IVPB Q12 [facility] PRN Reason: Protocol Last Admin: 04/13/17 22:45 Dose: 100 mls/hr Linezolid (Zyvox 600mg/300ml D5w) 600 mg in 300 mls @ 200 mls/hr IVPB Q12 [facility] PRN Reason: Protocol Stop: 04/19/17 10:01 Last Admin: 04/13/17 23:47 Dose: 200 mls/hr Sodium Chloride (Sodium Chloride 0.45%) 1,000 mls @ 100 mls/hr IV .Q10H [facility] Last Admin: 04/13/17 17:32 Dose: 100 mls/hr Insulin Human Regular (Humulin R High) 0 units SC ACHS [facility] PRN Reason: Protocol Last Admin: 04/13/17 17:00 Dose: Not Given Levalbuterol HCl (Xopenex) 0.63 mg IH [id number] [facility] Last Admin: 04/14/17 07:21 Dose: 0.63 mg Levothyroxine Sodium (Synthroid) 75 mcg PO DAILY [facility] Last Admin: 04/13/17 10:47 Dose: 75 mcg Metoprolol Tartrate (Lopressor) 25 mg PO BID [facility] Last Admin: 04/13/17 17:01 Dose: Not Given Oseltamivir Phosphate (Tamiflu Susp) 30 mg PO BID [facility] PRN Reason: Protocol Stop: 04/17/17 10:01 Last Admin: 04/13/17 17:22 Dose: 1 u - Labs Labs: 04/13/17 07:30 04/13/17 07:30 PT 16.1 SECONDS (9.4-12.5) H 04/12/17 06:50 INR 1.39 (0.93-1.08) H 04/12/17 06:50 APTT 31.6 Seconds (25.1-36.5) 04/12/17 06:50 - Constitutional Appears: Non-toxic, No Acute Distress - Head Exam Head Exam: ATRAUMATIC, NORMOCEPHALIC - Eye Exam Eye Exam: EOMI, PERRL. absent: Scleral icterus Pupil Exam: PERRL. absent: Miosis, Mydriatic - ENT Exam ENT Exam: Mucous Membranes Moist, Normal Oropharynx - Neck Exam Neck Exam: Full ROM, Normal Inspection - Respiratory Exam Respiratory Exam: Decreased Breath Sounds, Rhonchi. absent: Rales, Wheezes - Cardiovascular Exam Cardiovascular Exam: RRR, +S1, +S2. absent: Gallop, Rubs - GI/Abdominal Exam GI & Abdominal Exam: Soft, Normal Bowel Sounds. absent: Distended, Firm, Guarding, Rigid, Tenderness, Organomegaly, Rebound - Extremities Exam Extremities Exam: Normal Inspection. absent: Pedal Edema - Neurological Exam Neurological Exam: Alert, Awake. absent: Oriented x3 - Psychiatric Exam Psychiatric exam: Normal Affect, Normal Mood - Skin Skin Exam: Dry, Intact, Normal Color, Warm Assessment and Plan - Assessment and Plan (Free Text) Assessment: 76 year old male with history of chronic cholecystitis with indwelling PTC 2016, ERCP 08/2016 with CBD stent removal, sphincterotomy, sludge extraction/no stones, and cholangiogram confirming clear biliary tree without filling defects , poor surgical candidate in setting of 3-vessel CAD on cath 05/2016 (RCA/LCX/LAD ), Prostate cancer s/p Brachytherapy, MDS, autoimmune hemolytic anemia, and Alzheimer's Dementia presenting from nursing facility with fever. Active treatment of multifocal pneumonia, hypernatremia, and leakage from indwelling PTC. Plan: >CT A/P - PTC in good position >cholangiogram- PTC with appropriate flow, no extravasation of dye >surgery following- appreciate recommendations >cardiology following- medical management of CAD >ID following- on broad spectrum antibiotics >LFTs stable >supportive care >on puree diet >will follow clinical course <[facility] - Last Filed: 04/14/17 13:07> Objective - Vital Signs/Intake and Output Vital Signs (last 24 hours): Temp Pulse Resp BP Pulse Ox 97 F L 60 20 92/51 L 95 04/14/17 08:50 04/14/17 10:40 04/14/17 08:50 04/14/17 10:40 04/14/17 08:50 Intake and Output: 04/14/17 04/14/17 06:59 18:59 Intake Total 360 0 Output Total 600 0 Balance -240 0 - Medications Medications: Current Medications Acetaminophen (Tylenol 650 Mg Supp) 650 mg RC Q4H PRN PRN Reason: Fever >100.4 F Last Admin: 04/13/17 01:29 Dose: 650 mg Aspirin (Ecotrin) 81 mg PO DAILY [facility] Last Admin: 04/14/17 10:39 Dose: 81 mg Atorvastatin Calcium (Lipitor) 40 mg PO DIN [facility] Last Admin: 04/13/17 17:22 Dose: 40 mg Donepezil HCl (Aricept) 10 mg PO HS [facility] Last Admin: 04/13/17 21:53 Dose: 10 mg Meropenem (Merrem Iv 1 Gm Premix) 50 mls @ 100 mls/hr IVPB Q12 [facility] PRN Reason: Protocol Last Admin: 04/14/17 12:37 Dose: 100 mls/hr Doxycycline Hyclate 100 mg/ (Sodium Chloride) 100 mls @ 100 mls/hr IVPB Q12 [facility] PRN Reason: Protocol Last Admin: 04/13/17 22:45 Dose: 100 mls/hr Sodium Chloride (Sodium Chloride 0.45%) 1,000 mls @ 100 mls/hr IV .Q10H [facility] Last Admin: 04/13/17 17:32 Dose: 100 mls/hr Micafungin Sodium 100 mg/ (Sodium Chloride) 100 mls @ 100 mls/hr IV DAILY [facility] PRN Reason: Protocol Stop: 05/08/17 11:31 Insulin Human Regular (Humulin R High) 0 units SC ACHS [facility] PRN Reason: Protocol Last Admin: 04/14/17 12:43 Dose: 12 units Levalbuterol HCl (Xopenex) 0.63 mg IH [id number] [facility] Last Admin: 04/14/17 07:21 Dose: 0.63 mg Levothyroxine Sodium (Synthroid) 75 mcg PO DAILY [facility] Last Admin: 04/14/17 10:39 Dose: 75 mcg Metoprolol Tartrate (Lopressor) 25 mg PO BID [facility] Last Admin: 04/14/17 10:40 Dose: Not Given Sitagliptin Phosphate (Januvia) 100 mg PO DAILY [facility] Last Admin: 04/14/17 10:41 Dose: Not Given - Labs Labs: 04/14/17 08:40 04/14/17 08:40 PT 16.1 SECONDS (9.4-12.5) H 04/12/17 06:50 INR 1.39 (0.93-1.08) H 04/12/17 06:50 APTT 31.6 Seconds (25.1-36.5) 04/12/17 06:50 Attending/Attestation - Attestation I have personally seen and examined this patient.: Yes I have fully participated in the care of the patient.: Yes I have reviewed all pertinent clinical information, including history, physical exam and plan: Yes Notes (Text): 04/14/17 13:05 This is a 75 year old male with h/o CAD, Prostate ca, autoimmune hemolytic anemia, MDS, Dementia, cholecystitis s/p percutaneous cholecystostomy tube, prior ERCP with sphincterotomy and stone/sludge extraction admitted with pneumonia. Medical management as per primary team. CTAP and perc cholangiogram shows drain in place. Surgical note appreciated. Continue antibiotics. No Gi intervention required. Will follow surgical team recommendations
[2017-04-14] MEDS: Insulin Reg-HIGH-Coverage SC SCH ×3 (08:21→17:40)
[2017-04-14 09:10] LABS: HEMOGLOBIN 11.4 g/dL (14.0-18.0); MEAN CELL VOLUME 97.3 fl (80.0-105.0); MEAN CORPUSCULAR HGB CONC 31.8 g/dl (31.0-37.0); MEAN PLATELET VOLUME 10.4 fl (7.0-11.0); RBC 3.68 10^6/uL (3.5-6.1); RED CELL DISTRIBUTION WIDTH 14.3 % (11.5-14.5); WHITE BLOOD COUNT 3.7 10^3/ul (4.5-11.0)
[2017-04-14 09:20] LABS: ALBUMIN 2.7 g/dL (3.0-4.8); ALT/SGPT 56 U/L (7-56); AST/SGOT 52 U/L (17-59); BLOOD UREA NITROGEN 34 mg/dL (7-21); GFR AFRICAN-AMERICAN > 60; GFR NON-AFRICAN AMERICAN > 60
[2017-04-14 09:23] LABS: ALB/GLOB RATIO 1.1 (1.1-1.8)
--- NOTE | 2017-04-14 10:34 | PN ---
DATE: SUBJECTIVE: I saw Max resting comfortably in bed. He slept fairly well. He is more alert. He knew me. He said my name this morning which is good for him. He is being seen by GI, Infectious Disease, Cardiology, Surgery. OBJECTIVE: VITAL SIGNS: Temperature 97.9, pulse 71, blood pressure 103/66, O2 sat 92% on 4 liters of nasal cannula. HEAD: Atraumatic, normocephalic. HEART: Regular rate. LUNGS: Decreased breath sounds but clear. ABDOMEN: Soft. EXTREMITIES: No edema. MEDICATIONS: He is on Aricept, doxycycline, Ecotrin, insulin, Lipitor, Lopressor, Merrem IV, IV fluids, Synthroid, Tamiflu, Tylenol, Xopenex, and Zyvox IV. He has a 4.6 white count, finally came down to normal; 12.1 hemoglobin; 39.2 hematocrit with 154 platelets. He has a 157 sodium, potassium is 4, BUN 40, creatinine 1, GFR is greater than 60, sugar is 178, calcium is 8.8, total bilirubin is 0.7, AST is 56, ALT is 61, alkaline phosphatase 54, total protein is 4.8. I have ordered some physical therapy, out of bed to chair. Hopefully, he will continue to improve. He has multiple issues besides altered mental status, lethargy, triple-vessel disease of the heart. He does have acute cholecystitis. He has a pigtail catheter in the gallbladder which is draining. Continue with aggressive treatment and care, get him out of bed to chair, physical therapy. Check his labs tomorrow. Continue IV antibiotics. Sean Nicholson DO MTDD
[2017-04-14] MEDS: Linezolid 600 mg in D5W 300 ml 600 MG/300 ML BAG IVPB SCH (10:39)
[2017-04-14] MEDS: Levothyroxine 75 MCG TAB PO SCH (10:39)
[2017-04-14] MEDS: Oseltamivir 6 MG/ML PO SCH (11:02)
--- NOTE | 2017-04-14 11:58 | PN ---
DATE: 04/14/2017 SUBJECTIVE: The patient appears comfortable this morning. He is not short of breath at rest. OBJECTIVE: VITALS: Temperature is 97.9, pulse 71, respirations 18/20, blood pressure 103/66. Oxygen saturation on nasal cannula is between 93-94%. HEENT: Normocephalic, atraumatic. No JVD. CARDIOVASCULAR: Positive S1, S2. No S3, gallop. LUNGS: Minimal crackles at both bases. Minimal/less rhonchi. No wheezing. EXTREMITIES: Mild edema. No cyanosis, no clubbing. Calves are nontender to palpation. GI: Abdomen is soft, nontender and nondistended. Bowel sounds are positive. There is a right upper quadrant drain in place. SKIN: No acute rash. NEUROLOGIC: Limited at the present time. IMPRESSION: 1. Sepsis syndrome. 2. Right lower lobe pneumonia. 3. Multiple electrolyte abnormalities. 4. Mild bronchospasm. 5. Probable dehydration. PLAN: The patient appears comfortable this morning. He is not short of breath at rest. He remains very weak appearing. On physical exam, his bronchospasm is definitely less. In addition, the alveolar-arterial gradient is also less. I will continue with the current nebulizer treatments for now. I would continue with the antibiotic coverage as per infectious disease. Temperatures are resolving. The leukocytosis has also resolved. Inputs by cardiology and surgery are also noted. Clinical status of the patient is definitely improved - compared to the initial presentation. However, again, the overall status/prognosis for this chronically ill patient does remain guarded. I will discuss the above with Dr. Nicholson. Medardo Whittaker MD MTDRogelio
[2017-04-14] MEDS: Meropenem IV 1 gm in NS 50 ML IVPB SCH ×2 (12:37→21:18)
--- NOTE | 2017-04-14 13:27 | CP.PCM.PN ---
Subjective - Date & Time of Evaluation Date of Evaluation: 04/14/17 Time of Evaluation: 07:25 - Subjective Subjective: General Surgery Progress Note for Dr. Krishnamurthy Patient seen and examined at bedside. Patient does not endorse any abdominal pain, nausea, vomiting, or difficulty tolerating soft diet. Nursing note reviewed. Brown fluid draining from cholecystectomy tube. Important to note, patient is non-verbal. Objective - Vital Signs/Intake and Output Vital Signs (last 24 hours): Temp Pulse Resp BP Pulse Ox 97 F L 60 20 92/51 L 95 04/14/17 08:50 04/14/17 10:40 04/14/17 08:50 04/14/17 10:40 04/14/17 08:50 Intake and Output: 04/14/17 04/14/17 06:59 18:59 Intake Total 360 0 Output Total 600 0 Balance -240 0 - Medications Medications: Current Medications Acetaminophen (Tylenol 650 Mg Supp) 650 mg RC Q4H PRN PRN Reason: Fever >100.4 F Last Admin: 04/13/17 01:29 Dose: 650 mg Aspirin (Ecotrin) 81 mg PO DAILY [facility] Last Admin: 04/14/17 10:39 Dose: 81 mg Atorvastatin Calcium (Lipitor) 40 mg PO DIN [facility] Last Admin: 04/13/17 17:22 Dose: 40 mg Donepezil HCl (Aricept) 10 mg PO HS [facility] Last Admin: 04/13/17 21:53 Dose: 10 mg Meropenem (Merrem Iv 1 Gm Premix) 50 mls @ 100 mls/hr IVPB Q12 [facility] PRN Reason: Protocol Last Admin: 04/14/17 12:37 Dose: 100 mls/hr Doxycycline Hyclate 100 mg/ (Sodium Chloride) 100 mls @ 100 mls/hr IVPB Q12 [facility] PRN Reason: Protocol Last Admin: 04/13/17 22:45 Dose: 100 mls/hr Sodium Chloride (Sodium Chloride 0.45%) 1,000 mls @ 100 mls/hr IV .Q10H [facility] Last Admin: 04/13/17 17:32 Dose: 100 mls/hr Micafungin Sodium 100 mg/ (Sodium Chloride) 100 mls @ 100 mls/hr IV DAILY [facility] PRN Reason: Protocol Stop: 05/08/17 11:31 Insulin Human Regular (Humulin R High) 0 units SC ACHS [facility] PRN Reason: Protocol Last Admin: 04/14/17 12:43 Dose: 12 units Levalbuterol HCl (Xopenex) 0.63 mg IH [id number] [facility] Last Admin: 04/14/17 07:21 Dose: 0.63 mg Levothyroxine Sodium (Synthroid) 75 mcg PO DAILY [facility] Last Admin: 04/14/17 10:39 Dose: 75 mcg Metoprolol Tartrate (Lopressor) 25 mg PO BID [facility] Last Admin: 04/14/17 10:40 Dose: Not Given Sitagliptin Phosphate (Januvia) 100 mg PO DAILY [facility] Last Admin: 04/14/17 10:41 Dose: Not Given - Labs Labs: 04/14/17 08:40 04/14/17 08:40 PT 16.1 SECONDS (9.4-12.5) H 04/12/17 06:50 INR 1.39 (0.93-1.08) H 04/12/17 06:50 APTT 31.6 Seconds (25.1-36.5) 04/12/17 06:50 - Constitutional Appears: Non-toxic, No Acute Distress - Head Exam Head Exam: ATRAUMATIC, NORMOCEPHALIC - Eye Exam Eye Exam: EOMI, Normal appearance - ENT Exam ENT Exam: Mucous Membranes Moist, Normal Oropharynx - Neck Exam Neck Exam: Normal Inspection - Respiratory Exam Respiratory Exam: NORMAL BREATHING PATTERN. absent: Accessory Muscle Use - GI/Abdominal Exam GI & Abdominal Exam: Soft. absent: Guarding, Rigid, Rebound Additional comments: Cholecystostomy tube in place with silk suture. Bag with dark brown/yellow ( bilious) fluid. Dressing clean, dry and intact. Midline laparotomy scar intact, appears well-healed. - Extremities Exam Extremities Exam: Normal Inspection - Neurological Exam Neurological Exam: Alert, Awake. absent: Oriented x3 - Psychiatric Exam Psychiatric exam: Normal Affect, Normal Mood - Skin Skin Exam: Dry, Intact, Normal Color, Warm Assessment and Plan - Assessment and Plan (Free Text) Assessment: 76 year old male, skilled nursing resident with a past medical history of chronic cholecystitis with gall bladder tube insertion in 05/2016, 3 vessel cornary artery disease, Prostate cancer treated with Brachytherapy, autoimmune hemolytic anemia, myelodysplastic syndrome, and Alzheimer's Dementia who presented to [facility] from skilled nursing for fevers refractory to antipyretics and 2 antibiotics. Surgery was consulted for evaluation of leaking RUQ Cholecystostomy tube. Plan: - We will clamp drain and monitor output from cholecystectomy tube. - Dressing change as needed: Dry Gauze and paper tape. - Medically maximize as per Primary team - Case discussed with attending physician, Dr. Krishnamurthy.
--- NOTE | 2017-04-14 13:27 | PN ---
DATE: 04/14/2017 SUBJECTIVE: The patient is seen early this morning in room 575, bed 1. The patient is weak and had an uneventful night. His temperature appears to be down. PHYSICAL EXAMINATION: VITAL SIGNS: On exam, temperature is 97, blood pressure is 90/50, respiratory rate of 20, and heart rate of 71. HEENT: Unremarkable. NECK: Supple. LUNGS: Decreased breath sounds. HEART: Normal S1 and S2. ABDOMEN: Soft. LABORATORY DATA: Reveals white count of 3.7, hemoglobin of 11, 91% granulocytosis. The patient's BUN is 34 and creatinine of 0.9. Urinalysis is noted and there is yeast in the urine. Serology is negative for the flu and urine for Legionella antigen is negative. Microbiology, yeast in the blood one bottle and other bottle has no growth. There is report of Haylee albicans by PNA FISH. The patient's CAT scan of the abdomen and pelvis was noted. ASSESSMENT AND PLAN: A 76-year-old male seen early this morning in 575, bed 1 with Alzheimer's dementia, hemolytic anemia, prostate cancer, history of depression, bowel obstruction, admitted with severe sepsis, acute renal failure, multi healthcare-associated pneumonia, now with fungemia with yeast in the blood. We will start the patient on Mycamine 100 mg IV q.24 hours. We will repeat blood cultures x2 and also order an echo. Source of the fungemia in urine versus intravascular lines versus endocarditis, and the identification of sensitivity of the fungus and there is Haylee albicans PNA FISH and to rule out eye involvement. We will discontinue the Zyvox also. The patient is on doxycycline and meropenem. Thus far, no evidence of has been documented. We will follow closely with you. Padilla Goode MD
--- NOTE | 2017-04-14 15:00 | CP.PCM.CON ---
History of Present Illness - History of Present Illness History of Present Illness: Initial Nephrology Consultation: Assessment: Stable Acute Kidney Injury (N17.9) likely due to dehydration Hypernatremia, Hyperglycemia, chronic hypotension Pneumonia Plan No acute need for renal replacement therapy at this time. maintain hemodynamics stable Patient not on ACEI/ARB due to DIDI. resume home dose midodrine 10 mg tid Monitor Input/Output, daily weights and renal function with basic metabolic panel continue with 0.45% saline @ 100 ml/hr antibioitcs as per ID can give normal saline boluses if needed for low BP Dose meds/antibiotics for improved GFR. avoid nephrotoxins/NSAIDs Glycemic control Further work up/management as per primary team Thanks for allowing me to participate in care of your patient. Will follow patient with you. Please call if any Qs Dr Enrique De Leon Office: [phone] Chief Complaint; unable HPI: Pt is a 76 M with hx of dementia, hypotension on midodrine, hx of biliary infections, sepsis, [facility] resident presented with complaints of fever and found to have pneumonia, DIDI, hyperglycemia and hypernatremia hence renal consulted Bp mostly on low side. no recent IV contrast known ROS: unable to obtain from pt Physical Examination: General Appearance: Comfortable, in no acute respiratory distress, co-operative . Vitals reviewed and noted as below Head; Atraumatic, normocephalic ENT: no ulcers no thrush. Tongue is midline. Oropharynx: no rash or ulcers. EYES: Pupils are equal, round and reactive to light accommodation. Eye muscles and extraocular movement intact. Sclera is anicteric. Neck; supple no lymphadenopathy, no thyromegaly or bruit Lungs: Normal respiratory rate/effort. Breath sounds bilateral decreased at bases with few crackles Heart: Normal rate. s1s2 normal. No rub or gallop. Extremities: no edema. No varicose veins Neurological: Patient is alert, awake and demented Skin: Warm and dry. Normal turgor. No rash. Palpitation: Normal elasticity for age Abdomen: Abdomen is soft. Bowel sounds +. There is no abdominal tenderness, no guarding/rigidity no organomegaly Psych: lack insight and has normal affect/mood MSK: no joint tenderness or swelling. Digits and nails normal, no deformity : kidney or bladder not palpable Labs/imaging reviewed. Past medical history, past surgical history, family history, social history, allergy reviewed and noted as below Family hx: no hx of CKD. Rest non-contributory Past Patient History - Infectious Disease Hx of Infectious Diseases: None - Past Social History Smoking Status: Former Smoker - CARDIAC Hx Congestive Heart Failure: Yes Hx Hypertension: Yes Hx Pacemaker: No Other/Comment: ashd - PULMONARY Hx Pneumonia: Yes - NEUROLOGICAL Hx Alzheimer's Disease: Yes Hx Dementia: Yes - HEENT Hx HEENT Problems: Yes (WEARS RX GLASSES) - RENAL Hx Chronic Kidney Disease: Yes Hx Renal Failure: Yes (congenital) - ENDOCRINE/METABOLIC Hx Diabetes Mellitus Type 2: Yes Hx Hypothyroidism: Yes - HEMATOLOGICAL/ONCOLOGICAL Hx Anemia: Yes Hx Cancer: Yes (prostate) - INTEGUMENTARY Hx Dermatological Problems: Yes (JAUNDICED SKIN 06-21-15) - MUSCULOSKELETAL/RHEUMATOLOGICAL Hx Musculoskeletal Disorders: No - GASTROINTESTINAL Hx Gastroesophageal Reflux: Yes Other/Comment: acute cholecystitis/tube in gallbladder - GENITOURINARY/GYNECOLOGICAL Hx Genitourinary Disorders: Yes Hx Incontinence: Yes Hx Prostate Cancer: Yes Hx Prostate Problems: Yes (PROSTATE CA WITH RADIATION-SEEDING) Other/Comment: esbl/uti - PSYCHIATRIC Hx Depression: Yes Hx Substance Use: No - SURGICAL HISTORY Other/Comment: BOWEL OBSTRUCTION-1995 - ANESTHESIA Hx Anesthesia Reactions: No Hx Malignant Hyperthermia: No Meds Allergies/Adverse Reactions: Allergies Allergy/AdvReac Type Severity Reaction Status Date / Time ceftriaxone sodium Allergy RASH Verified 04/12/17 06:37 [From Rocephin] - Medications Medications: Current Medications Acetaminophen (Tylenol 650 Mg Supp) 650 mg RC Q4H PRN PRN Reason: Fever >100.4 F Last Admin: 04/13/17 01:29 Dose: 650 mg Aspirin (Ecotrin) 81 mg PO DAILY [facility] Last Admin: 04/14/17 10:39 Dose: 81 mg Atorvastatin Calcium (Lipitor) 40 mg PO DIN [facility] Last Admin: 04/13/17 17:22 Dose: 40 mg Donepezil HCl (Aricept) 10 mg PO HS [facility] Last Admin: 04/13/17 21:53 Dose: 10 mg Meropenem (Merrem Iv 1 Gm Premix) 50 mls @ 100 mls/hr IVPB Q12 [facility] PRN Reason: Protocol Last Admin: 04/14/17 12:37 Dose: 100 mls/hr Doxycycline Hyclate 100 mg/ (Sodium Chloride) 100 mls @ 100 mls/hr IVPB Q12 [facility] PRN Reason: Protocol Last Admin: 04/14/17 14:05 Dose: 100 mls/hr Sodium Chloride (Sodium Chloride 0.45%) 1,000 mls @ 100 mls/hr IV .Q10H [facility] Last Admin: 04/13/17 17:32 Dose: 100 mls/hr Micafungin Sodium 100 mg/ (Sodium Chloride) 100 mls @ 100 mls/hr IV DAILY [facility] PRN Reason: Protocol Stop: 05/08/17 11:31 Insulin Human Regular (Humulin R High) 0 units SC ACHS [facility] PRN Reason: Protocol Last Admin: 04/14/17 12:43 Dose: 12 units Levalbuterol HCl (Xopenex) 0.63 mg IH [id number] [facility] Last Admin: 04/14/17 13:52 Dose: 0.63 mg Levothyroxine Sodium (Synthroid) 75 mcg PO DAILY [facility] Last Admin: 04/14/17 10:39 Dose: 75 mcg Metoprolol Tartrate (Lopressor) 25 mg PO BID [facility] Last Admin: 04/14/17 10:40 Dose: Not Given Sitagliptin Phosphate (Januvia) 100 mg PO DAILY [facility] Last Admin: 04/14/17 10:41 Dose: Not Given Results - Vital Signs Recent Vital Signs: Last Vital Signs Temp 97 F L 04/14/17 08:50 Pulse 60 04/14/17 10:40 Resp 20 04/14/17 08:50 BP 92/51 L 04/14/17 10:40 Pulse Ox 95 04/14/17 08:50 - Labs Result Diagrams: 04/14/17 08:40 04/14/17 08:40 Labs: Laboratory Results - last 24 hr 04/13/17 04/13/17 04/14/17 15:52 21:39 07:52 WBC RBC Hgb Hct MCV MCH MCHC RDW Plt Count MPV Sodium Potassium Chloride Carbon Dioxide Anion Gap BUN Creatinine Est GFR ( Amer) Est GFR (Non-Af Amer) POC Glucose (mg/dL) 261 H 246 H 178 H Random Glucose Calcium Total Bilirubin AST ALT Alkaline Phosphatase Total Protein Albumin Globulin Albumin/Globulin Ratio 04/14/17 04/14/17 04/14/17 08:40 08:40 11:47 WBC 3.7 L RBC 3.68 Hgb 11.4 L Hct 35.8 L MCV 97.3 MCH 31.0 MCHC 31.8 RDW 14.3 Plt Count 147 MPV 10.4 Sodium 151 H Potassium 3.7 Chloride 120 H Carbon Dioxide 26 Anion Gap 9 L BUN 34 H Creatinine 0.9 Est GFR ( Amer) > 60 Est GFR (Non-Af Amer) > 60 POC Glucose (mg/dL) 376 H Random Glucose 191 H Calcium 9.0 Total Bilirubin 0.6 AST 52 ALT 56 Alkaline Phosphatase 52 Total Protein 5.1 L Albumin 2.7 L Globulin 2.4 Albumin/Globulin Ratio 1.1
[2017-04-14] MEDS: Micafungin 100 MG in Sodium Chloride 0.9% 100 ML IV SCH (17:45)
--- NOTE | 2017-04-14 20:29 | PN ---
DATE: 04/14/2017 CARDIOLOGY FOLLOWUP NOTE SUBJECTIVE: The patient is comfortable in bed. He is more alert and awake today. PHYSICAL EXAM: VITAL SIGNS: Blood pressure is 95/62, the heart rate is in the 60s. NECK: Negative JVD. LUNGS: Without rales. HEART: S1 and S2. EXTREMITIES: Without edema. LABORATORY DATA: Hemoglobin is 11.4. Chemistries, BUN and creatinine unremarkable. IMPRESSION: 1. Stable angina. 2. Multivessel coronary artery disease. 3. Diabetes mellitus. 4. Mental status which is improved. 5. Pneumonia. Given these findings, we will continue the patient on his current antianginal cardiac medications. No plans for invasive cardiac procedures. Janusz Landry MD
[2017-04-14] MEDS: Sodium Chloride 0.45% 1,000 ML IV SCH (21:19)
[2017-04-15] MEDS: Levalbuterol 0.63 MG/3 ML Inhal Soln UD IH SCH ×4 (01:24→20:28)
[2017-04-15] MEDS: Insulin Reg-HIGH-Coverage SC SCH ×4 (03:07→16:22)
--- NOTE | 2017-04-15 07:03 | CP.PCM.PN ---
<Nereida Garcia - Last Filed: 04/15/17 09:03> Subjective - Date & Time of Evaluation Date of Evaluation: 04/15/17 Time of Evaluation: 07:00 - Subjective Subjective: Gastroenterology Fellow/PGY5 Progress Note Patient denies abdominal pain. Tolerating diet. One bowel movement yesterday. 12 -point review of systems negative except for as above. Objective - Vital Signs/Intake and Output Vital Signs (last 24 hours): Temp Pulse Resp BP Pulse Ox 98.1 F 59 L 16 95/61 L 94 L 04/14/17 16:00 04/14/17 16:00 04/14/17 16:00 04/14/17 16:00 04/14/17 16:00 Intake and Output: 04/14/17 04/15/17 18:59 06:59 Intake Total 1800 540 Output Total 890 500 Balance 910 40 - Medications Medications: Current Medications Acetaminophen (Tylenol 650 Mg Supp) 650 mg RC Q4H PRN PRN Reason: Fever >100.4 F Last Admin: 04/13/17 01:29 Dose: 650 mg Aspirin (Ecotrin) 81 mg PO DAILY [facility] Last Admin: 04/14/17 10:39 Dose: 81 mg Atorvastatin Calcium (Lipitor) 40 mg PO DIN [facility] Last Admin: 04/14/17 17:44 Dose: 40 mg Donepezil HCl (Aricept) 10 mg PO HS [facility] Last Admin: 04/14/17 22:16 Dose: 10 mg Doxycycline Hyclate (Doryx) 100 mg PO Q12 [facility] PRN Reason: Protocol Stop: 04/24/17 10:01 Meropenem (Merrem Iv 1 Gm Premix) 50 mls @ 100 mls/hr IVPB Q12 [facility] PRN Reason: Protocol Last Admin: 04/14/17 21:18 Dose: 100 mls/hr Sodium Chloride (Sodium Chloride 0.45%) 1,000 mls @ 100 mls/hr IV .Q10H [facility] Last Admin: 04/14/17 21:19 Dose: 100 mls/hr Micafungin Sodium 100 mg/ (Sodium Chloride) 100 mls @ 100 mls/hr IV DAILY [facility] PRN Reason: Protocol Stop: 05/08/17 11:31 Last Admin: 04/14/17 17:45 Dose: 100 mls/hr Insulin Human Regular (Humulin R High) 0 units SC ACHS [facility] PRN Reason: Protocol Last Admin: 04/15/17 03:07 Dose: Not Given Levalbuterol HCl (Xopenex) 0.63 mg IH [id number] [facility] Last Admin: 04/15/17 01:24 Dose: Not Given Levothyroxine Sodium (Synthroid) 75 mcg PO DAILY [facility] Last Admin: 04/14/17 10:39 Dose: 75 mcg Metoprolol Tartrate (Lopressor) 25 mg PO BID [facility] Last Admin: 04/14/17 18:36 Dose: Not Given Midodrine (Proamatine) 10 mg PO TID [facility] Last Admin: 04/14/17 17:44 Dose: 10 mg Sitagliptin Phosphate (Januvia) 100 mg PO DAILY [facility] Last Admin: 04/14/17 10:41 Dose: Not Given - Labs Labs: 04/14/17 08:40 04/14/17 08:40 PT 16.1 SECONDS (9.4-12.5) H 04/12/17 06:50 INR 1.39 (0.93-1.08) H 04/12/17 06:50 APTT 31.6 Seconds (25.1-36.5) 04/12/17 06:50 - Constitutional Appears: Non-toxic, No Acute Distress - Head Exam Head Exam: ATRAUMATIC, NORMOCEPHALIC - Eye Exam Eye Exam: EOMI, PERRL. absent: Scleral icterus Pupil Exam: PERRL. absent: Miosis, Mydriatic - ENT Exam ENT Exam: Mucous Membranes Moist, Normal Oropharynx - Neck Exam Neck Exam: Full ROM, Normal Inspection - Respiratory Exam Respiratory Exam: Clear to Ausculation Bilateral. absent: Rales, Rhonchi, Wheezes - Cardiovascular Exam Cardiovascular Exam: RRR, +S1, +S2. absent: Gallop, Rubs - GI/Abdominal Exam GI & Abdominal Exam: Soft, Normal Bowel Sounds. absent: Distended, Firm, Guarding, Rigid, Tenderness, Organomegaly, Rebound Additional comments: RUQ PTC in place- scant green-brown bilious drainage - Extremities Exam Extremities Exam: Normal Inspection. absent: Pedal Edema - Neurological Exam Neurological Exam: Alert, Awake - Psychiatric Exam Psychiatric exam: Normal Affect, Normal Mood - Skin Skin Exam: Dry, Intact, Normal Color, Warm Assessment and Plan - Assessment and Plan (Free Text) Assessment: 76 year old male with history of chronic cholecystitis with indwelling PTC 2016, ERCP 08/2016 with CBD stent removal, sphincterotomy, sludge extraction/no stones, and cholangiogram confirming clear biliary tree without filling defects , poor surgical candidate in setting of 3-vessel CAD on cath 05/2016 (RCA/LCX/LAD ), Prostate cancer s/p Brachytherapy, MDS, autoimmune hemolytic anemia, and Alzheimer's Dementia presenting from nursing facility with fever. Active treatment of fungemia, yeast UTI, multifocal pneumonia, hypernatremia, and leakage from indwelling PTC with confirmation of proper placement on CT A/P and cholangiogram. Plan: >surgery managing PTC >ID managing- on broad spectrum antibiotics, Micafungin added >fever curve improved >hemodynamically stable >follow up surgery recommendations for cholecystectomy >Thank you for opportunity to participate in the care of this patient. Please contact with questions or concerns <Joel Miller - Last Filed: 04/15/17 09:13> Objective - Vital Signs/Intake and Output Vital Signs (last 24 hours): Temp Pulse Resp BP Pulse Ox 99.0 F 67 20 108/67 99 04/15/17 08:00 04/15/17 08:00 04/15/17 08:00 04/15/17 08:00 04/15/17 08:00 Intake and Output: 04/15/17 04/15/17 06:59 18:59 Intake Total 540 Output Total 500 Balance 40 - Medications Medications: Current Medications Acetaminophen (Tylenol 650 Mg Supp) 650 mg RC Q4H PRN PRN Reason: Fever >100.4 F Last Admin: 04/13/17 01:29 Dose: 650 mg Aspirin (Ecotrin) 81 mg PO DAILY [facility] Last Admin: 04/14/17 10:39 Dose: 81 mg Atorvastatin Calcium (Lipitor) 40 mg PO DIN [facility] Last Admin: 04/14/17 17:44 Dose: 40 mg Donepezil HCl (Aricept) 10 mg PO HS [facility] Last Admin: 04/14/17 22:16 Dose: 10 mg Doxycycline Hyclate (Doryx) 100 mg PO Q12 [facility] PRN Reason: Protocol Stop: 04/24/17 10:01 Meropenem (Merrem Iv 1 Gm Premix) 50 mls @ 100 mls/hr IVPB Q12 [facility] PRN Reason: Protocol Last Admin: 04/14/17 21:18 Dose: 100 mls/hr Sodium Chloride (Sodium Chloride 0.45%) 1,000 mls @ 100 mls/hr IV .Q10H [facility] Last Admin: 04/14/17 21:19 Dose: 100 mls/hr Micafungin Sodium 100 mg/ (Sodium Chloride) 100 mls @ 100 mls/hr IV DAILY [facility] PRN Reason: Protocol Stop: 05/08/17 11:31 Last Admin: 04/14/17 17:45 Dose: 100 mls/hr Insulin Human Regular (Humulin R High) 0 units SC ACHS [facility] PRN Reason: Protocol Last Admin: 04/15/17 03:07 Dose: Not Given Levalbuterol HCl (Xopenex) 0.63 mg IH [id number] [facility] Last Admin: 04/15/17 08:23 Dose: 0.63 mg Levothyroxine Sodium (Synthroid) 75 mcg PO DAILY [facility] Last Admin: 04/14/17 10:39 Dose: 75 mcg Metoprolol Tartrate (Lopressor) 25 mg PO BID [facility] Last Admin: 04/14/17 18:36 Dose: Not Given Midodrine (Proamatine) 10 mg PO TID [facility] Last Admin: 04/14/17 17:44 Dose: 10 mg Sitagliptin Phosphate (Januvia) 100 mg PO DAILY [facility] Last Admin: 04/14/17 10:41 Dose: Not Given - Labs Labs: 04/15/17 07:01 04/15/17 07:01 PT 16.1 SECONDS (9.4-12.5) H 04/12/17 06:50 INR 1.39 (0.93-1.08) H 04/12/17 06:50 APTT 31.6 Seconds (25.1-36.5) 04/12/17 06:50 Attending/Attestation - Attestation I have personally seen and examined this patient.: Yes I have fully participated in the care of the patient.: Yes I have reviewed all pertinent clinical information, including history, physical exam and plan: Yes Notes (Text): 04/15/17 09:12 75 year old male with h/o CAD, Prostate ca, autoimmune hemolytic anemia, MDS, Dementia, cholecystitis s/p percutaneous cholecystostomy tube, prior ERCP with sphincterotomy and stone/sludge extraction admitted with pneumonia. 1. Chronic cholecystitis Plan: -reviewed CT A/P and perc cholangiogram -normal LFTs -appreciate surgical evaluation -typically, perc rosalind drains are used as a bridge to surgery to definitively remove the gallbladder -if cholecystectomy is never going to be an option due to surgical risk, then the alternative is to maintain the drain in place indefinitely -the alternative is to remove the drain and see how he does, although he would have risk of recurrent cholecytitis, other gallstone related complications, or possibly ongoing drainage through the fistulous tract from the drain -will sign off at this time
[2017-04-15 07:58] LABS: HEMOGLOBIN 11.5 g/dL (14.0-18.0); MEAN CELL VOLUME 96.3 fl (80.0-105.0); MEAN CORPUSCULAR HEMOGLOBIN 30.2 pg (25.0-35.0); MEAN CORPUSCULAR HGB CONC 31.3 g/dl (31.0-37.0); MEAN PLATELET VOLUME 10.9 fl (7.0-11.0); RBC 3.81 10^6/uL (3.5-6.1); WHITE BLOOD COUNT 6.8 10^3/ul (4.5-11.0)
[2017-04-15 08:20] LABS: ALB/GLOB RATIO 1.2 (1.1-1.8); ALBUMIN 2.6 g/dL (3.0-4.8); ALT/SGPT 49 U/L (7-56); AST/SGOT 40 U/L (17-59); BLOOD UREA NITROGEN 26 mg/dL (7-21); CALCIUM 8.9 mg/dL (8.4-10.5); GFR AFRICAN-AMERICAN > 60; GFR NON-AFRICAN AMERICAN > 60
--- NOTE | 2017-04-15 11:09 | PN ---
DATE: 04/15/2017 CARDIOLOGY FOLLOWUP NOTE SUBJECTIVE: The patient is comfortable without shortness of breath, without chest pain. PHYSICAL EXAMINATION: VITAL SIGNS: Blood pressure 108/67 and heart rate is in the 60s. NECK: Negative JVD. LUNGS: Decreased breath sounds. HEART: S1 and S2. EXTREMITIES: Without edema. LABORATORY DATA: BUN and creatinine are unremarkable. Glucose is 165. Hemoglobin is 11.8. IMPRESSION: 1. Cholecystitis. 2. Stable angina. 3. Triple vessel coronary artery disease, on medical therapy. 4. Diabetes mellitus. 5. Sepsis. PLAN: Given these findings, we will continue treatment of his coronary artery disease on his current medical therapy, which includes beta-blockers, aspirin, and statin therapy. The patient is currently on IV antibiotics with decision by Surgery on whether to do gallbladder surgery. Janusz Landry MD
[2017-04-15] MEDS: Levothyroxine 75 MCG TAB PO SCH (12:13)
[2017-04-15] MEDS: Meropenem IV 1 gm in NS 50 ML IVPB SCH ×2 (12:14→21:17)
--- NOTE | 2017-04-15 12:42 | PN ---
DATE: SUBJECTIVE: I saw him resting comfortably in bed. He is alert. He looks stronger to me. He is being seen by Cardiology, GI, Renal, Surgery, and Infectious Disease. He has got multiple issues going on. PHYSICAL EXAMINATION: VITAL SIGNS: He has 99 temperature, 67 pulse, 108/67 blood pressure, 20 respiratory rate, and 99% O2 sat on room air. HEENT: Head is atraumatic, normocephalic. His throat is most. NECK: Supple. HEART: Regular rate. LUNGS: Decreased breath sounds, but clear. ABDOMEN: Soft. Positive bowel sounds. EXTREMITIES: No edema. He has a pigtail catheter in place. MEDICATIONS: He is on Aricept, Doryx, Ecotrin, insulin, Januvia, Lipitor, Lopressor, Merrem, he micafungin for yeast in his blood, midodrine, IV fluids, Synthroid, Tylenol, and Xopenex. LABORATORY DATA: He has 147 sodium, potassium is 3.7, BUN is 26, creatinine is 0.8, GFR is greater than 60, sugar is 120, calcium is 8.9, AST is 40, ALT is 49, and alkaline phosphatase is 53. His white count is good at 6.8, hemoglobin is 11.5, hematocrit is 36.7, and platelets are 179. We are dealing with yeast in his blood. He is on micafungin to clear this. He is being seen by numerous physicians who are trying to get him better with treatment. He has acute gallbladder, stable angina, triple coronary artery disease, and while renal insufficiency is improving and Infectious Disease started him on antifungal medicines for his fungus in the blood. He has fungemia. We will continue with aggressive treatment and care. I will discuss this with the family at length. Sean Nicholson DO [facility]
--- NOTE | 2017-04-15 13:44 | CP.PCM.PN ---
Subjective - Date & Time of Evaluation Date of Evaluation: 04/15/17 Time of Evaluation: 07:20 - Subjective Subjective: General Surgery Progress Note for Dr. Krishnamurhty Patient seen and examined at bedside. Patient does not endorse any abdominal pain, nausea, vomiting, or difficulty tolerating soft diet. Nursing note reviewed. Brown fluid draining from cholecystostomy tube. Important to note, patient is non-verbal and 12 point ROS unobtainable. Objective - Vital Signs/Intake and Output Vital Signs (last 24 hours): Temp Pulse Resp BP Pulse Ox 99.0 F 67 20 108/67 99 04/15/17 08:00 04/15/17 08:00 04/15/17 08:00 04/15/17 12:13 04/15/17 08:00 Intake and Output: 04/15/17 04/15/17 06:59 18:59 Intake Total 540 Output Total 500 Balance 40 - Medications Medications: Current Medications Acetaminophen (Tylenol 650 Mg Supp) 650 mg RC Q4H PRN PRN Reason: Fever >100.4 F Last Admin: 04/13/17 01:29 Dose: 650 mg Aspirin (Ecotrin) 81 mg PO DAILY [facility] Last Admin: 04/15/17 12:13 Dose: 81 mg Atorvastatin Calcium (Lipitor) 40 mg PO DIN [facility] Last Admin: 04/14/17 17:44 Dose: 40 mg Donepezil HCl (Aricept) 10 mg PO HS [facility] Last Admin: 04/14/17 22:16 Dose: 10 mg Doxycycline Hyclate (Doryx) 100 mg PO Q12 [facility] PRN Reason: Protocol Stop: 04/24/17 10:01 Last Admin: 04/15/17 12:13 Dose: 100 mg Meropenem (Merrem Iv 1 Gm Premix) 50 mls @ 100 mls/hr IVPB Q12 [facility] PRN Reason: Protocol Last Admin: 04/15/17 12:14 Dose: 100 mls/hr Sodium Chloride (Sodium Chloride 0.45%) 1,000 mls @ 100 mls/hr IV .Q10H [facility] Last Admin: 04/14/17 21:19 Dose: 100 mls/hr Micafungin Sodium 100 mg/ (Sodium Chloride) 100 mls @ 100 mls/hr IV DAILY [facility] PRN Reason: Protocol Stop: 05/08/17 11:31 Last Admin: 04/14/17 17:45 Dose: 100 mls/hr Insulin Human Regular (Humulin R High) 0 units SC ACHS [facility] PRN Reason: Protocol Last Admin: 04/15/17 11:54 Dose: Not Given Levalbuterol HCl (Xopenex) 0.63 mg IH [id number] [facility] Last Admin: 04/15/17 08:23 Dose: 0.63 mg Levothyroxine Sodium (Synthroid) 75 mcg PO DAILY [facility] Last Admin: 04/15/17 12:13 Dose: 75 mcg Metoprolol Tartrate (Lopressor) 25 mg PO BID [facility] Last Admin: 04/15/17 12:13 Dose: 25 mg Midodrine (Proamatine) 10 mg PO TID [facility] Last Admin: 04/15/17 12:09 Dose: 10 mg Sitagliptin Phosphate (Januvia) 100 mg PO DAILY [facility] Last Admin: 04/15/17 12:13 Dose: 100 mg - Labs Labs: 04/15/17 07:01 04/15/17 07:01 PT 16.1 SECONDS (9.4-12.5) H 04/12/17 06:50 INR 1.39 (0.93-1.08) H 04/12/17 06:50 APTT 31.6 Seconds (25.1-36.5) 04/12/17 06:50 - Constitutional Appears: Chronically Ill - Head Exam Head Exam: ATRAUMATIC, NORMOCEPHALIC - Eye Exam Eye Exam: EOMI, Normal appearance - ENT Exam ENT Exam: Mucous Membranes Dry - Respiratory Exam Respiratory Exam: NORMAL BREATHING PATTERN. absent: Accessory Muscle Use - Neurological Exam Neurological Exam: Awake - Psychiatric Exam Psychiatric exam: Normal Affect, Normal Mood - Skin Skin Exam: Dry, Intact, Normal Color, Warm Assessment and Plan - Assessment and Plan (Free Text) Assessment: 76 year old male, [facility] resident with cholecystostomy tube Plan: - cholecystostomy tube draining at this time - tube was clamped overnight, and pt reported having increased abdominal pain - will unclamp tube and monitor pt, may remove tube tomorrow if no complaints - d/w Dr. Krsihnamurthy
--- NOTE | 2017-04-15 13:48 | PN ---
DATE: 04/15/2017 SUBJECTIVE: The patient appears comfortable this morning. He is not short of breath at rest. PHYSICAL EXAMINATION: VITAL SIGNS (last noted in the computer): Temperature is 98.1, pulse 59, respirations 16, blood pressure 95/61. Oxygen saturation on room air is 94%. HEENT: Normocephalic, atraumatic. NECK: No JVD. CARDIOVASCULAR: Positive S1, S2. No S3 gallop. LUNGS: Minimal crackles at both bases. Very minimal/less rhonchi. No wheezing. EXTREMITIES: Mild edema. No cyanosis, no clubbing. Calves are nontender to palpation. GI: Abdomen is soft, nontender and nondistended. Bowel sounds are positive. There is a right upper quadrant drain in place. SKIN: No acute rash. NEUROLOGIC: Limited at the present time. IMPRESSION: 1. Sepsis syndrome. 2. Right lower lobe pneumonia. 3. Multiple electrolyte abnormalities. 4. Mild bronchospasm. 5. Probable dehydration. PLAN: The patient appears comfortable this morning. He is not short of breath at rest. He remains very weak appearing. On physical exam, his bronchospasm continues to resolve. In addition, the alveolar arterial gradient also continues to resolve. I will continue the current nebulizer treatments for now. The patient remains on antibiotic therapy - as per Infectious Disease. I would continue with the antibiotic coverage as per Infectious Disease. The temperatures have now fully resolved. The leukocytosis has also fully resolved. Clinical status of the patient is certainly improved - but remains very guarded overall. I will discuss the above with Dr. Nicholson. Medardo Whittaker MD [facility]
--- NOTE | 2017-04-15 14:42 | CP.PCM.PN ---
Subjective - Date & Time of Evaluation Date of Evaluation: 04/15/17 Time of Evaluation: 14:41 - Subjective Subjective: Follow up Nephrology Consultation: Assessment: Stable Acute Kidney Injury (N17.9) likely due to dehydration Hypernatremia, Hyperglycemia, chronic hypotension Pneumonia Plan No acute need for renal replacement therapy at this time. maintain hemodynamics stable Patient not on ACEI/ARB due to DIDI. resume home dose midodrine 10 mg tid Monitor Input/Output, daily weights and renal function with basic metabolic panel continue with 0.45% saline @ 100 ml/hr antibioitcs as per ID can give normal saline boluses if needed for low BP Dose meds/antibiotics for improved GFR. avoid nephrotoxins/NSAIDs Glycemic control Further work up/management as per primary team Thanks for allowing me to participate in care of your patient. Will follow patient with you. Please call if any Qs. d/w and team Dr Enrique De Leon Office: [phone] Chief Complaint; unable HPI: Pt is a 76 M with hx of dementia, hypotension on midodrine, hx of biliary infections, sepsis, NH resident presented with complaints of fever and found to have pneumonia, DIDI, hyperglycemia and hypernatremia hence renal consulted Bp mostly on low side. no recent IV contrast known ROS: unable to obtain from pt Physical Examination: General Appearance: Comfortable, in no acute respiratory distress, co-operative . Vitals reviewed and noted as below Head; Atraumatic, normocephalic ENT: no ulcers no thrush. Tongue is midline. Oropharynx: no rash or ulcers. EYES: Pupils are equal, round and reactive to light accommodation. Eye muscles and extraocular movement intact. Sclera is anicteric. Neck; supple no lymphadenopathy, no thyromegaly or bruit Lungs: Normal respiratory rate/effort. Breath sounds bilateral decreased at bases with few crackles Heart: Normal rate. s1s2 normal. No rub or gallop. Extremities: no edema. No varicose veins Neurological: Patient is alert, awake and demented Skin: Warm and dry. Normal turgor. No rash. Palpitation: Normal elasticity for age Abdomen: Abdomen is soft. Bowel sounds +. There is no abdominal tenderness, no guarding/rigidity no organomegaly Psych: lack insight and has normal affect/mood MSK: no joint tenderness or swelling. Digits and nails normal, no deformity : kidney or bladder not palpable Labs/imaging reviewed. Past medical history, past surgical history, family history, social history, allergy reviewed and noted as below Family hx: no hx of CKD. Rest non-contributory Objective - Vital Signs/Intake and Output Vital Signs (last 24 hours): Temp Pulse Resp BP Pulse Ox 99.0 F 67 20 108/67 99 04/15/17 08:00 04/15/17 08:00 04/15/17 08:00 04/15/17 12:13 04/15/17 08:00 Intake and Output: 04/15/17 04/15/17 06:59 18:59 Intake Total 540 Output Total 500 Balance 40 - Medications Medications: Current Medications Acetaminophen (Tylenol 650 Mg Supp) 650 mg RC Q4H PRN PRN Reason: Fever >100.4 F Last Admin: 04/13/17 01:29 Dose: 650 mg Aspirin (Ecotrin) 81 mg PO DAILY [facility] Last Admin: 04/15/17 12:13 Dose: 81 mg Atorvastatin Calcium (Lipitor) 40 mg PO DIN [facility] Last Admin: 04/14/17 17:44 Dose: 40 mg Donepezil HCl (Aricept) 10 mg PO HS [facility] Last Admin: 04/14/17 22:16 Dose: 10 mg Doxycycline Hyclate (Doryx) 100 mg PO Q12 [facility] PRN Reason: Protocol Stop: 04/24/17 10:01 Last Admin: 04/15/17 12:13 Dose: 100 mg Meropenem (Merrem Iv 1 Gm Premix) 50 mls @ 100 mls/hr IVPB Q12 [facility] PRN Reason: Protocol Last Admin: 04/15/17 12:14 Dose: 100 mls/hr Sodium Chloride (Sodium Chloride 0.45%) 1,000 mls @ 100 mls/hr IV .Q10H [facility] Last Admin: 04/14/17 21:19 Dose: 100 mls/hr Micafungin Sodium 100 mg/ (Sodium Chloride) 100 mls @ 100 mls/hr IV DAILY [facility] PRN Reason: Protocol Stop: 05/08/17 11:31 Last Admin: 04/14/17 17:45 Dose: 100 mls/hr Insulin Human Regular (Humulin R High) 0 units SC ACHS [facility] PRN Reason: Protocol Last Admin: 04/15/17 11:54 Dose: Not Given Levalbuterol HCl (Xopenex) 0.63 mg IH [id number] [facility] Last Admin: 04/15/17 14:09 Dose: 0.63 mg Levothyroxine Sodium (Synthroid) 75 mcg PO DAILY [facility] Last Admin: 04/15/17 12:13 Dose: 75 mcg Metoprolol Tartrate (Lopressor) 25 mg PO BID [facility] Last Admin: 04/15/17 12:13 Dose: 25 mg Midodrine (Proamatine) 10 mg PO TID [facility] Last Admin: 04/15/17 12:09 Dose: 10 mg Sitagliptin Phosphate (Januvia) 100 mg PO DAILY [facility] Last Admin: 04/15/17 12:13 Dose: 100 mg - Labs Labs: 04/15/17 07:01 04/15/17 07:01 PT 16.1 SECONDS (9.4-12.5) H 04/12/17 06:50 INR 1.39 (0.93-1.08) H 04/12/17 06:50 APTT 31.6 Seconds (25.1-36.5) 04/12/17 06:50
[2017-04-15] MEDS: Sodium Chloride 0.45% 1,000 ML IV SCH (16:26)
--- NOTE | 2017-04-15 23:58 | PN ---
DATE: 04/15/2017 SUBJECTIVE: The patient is seen earlier this morning. The patient's was present at the bedside. The patient's mental status is somewhat improved, his baseline is Alzheimer's as per patient's . PHYSICAL EXAMINATION VITAL SIGNS: Temperature is 102, blood pressure is 108/60 and respiratory rate of 16. HEENT: Unremarkable. NECK: Supple. LUNGS: Have decreased breath sounds. HEART: Normal S1 and S2. ABDOMEN: Soft. LABORATORY DATA: Reveals a white count of 6.8, hemoglobin of 11 and the platelets of 175. Coagulation is noted. Chemistries reveals a BUN of 28 and creatinine of 0.6. Procalcitonin 0.64. Urinalysis is noted. Microbiology reveals repeat blood cultures are negative and the initial blood cultures have grown yeast and urine cultures have grown yeast. ASSESSMENT AND PLAN: A 76-year-old male who was seen early this morning at bed. Alzheimer's dementia, hemolytic anemia, prostate cancer, history of depression and bowel obstruction. Admitted on this admission severe sepsis with acute renal failure, multilobar healthcare-associated pneumonia and the patient with fungemia with yeast in the blood and yeast in the urine, currently on Mycamine with repeat blood cultures negative. At this point I am waiting for echocardiogram and to rule out endocarditis. case discussed with Dr. Whittaker, who feels the patient does have a pneumonia also and we will continue the doxycycline, meropenem and micafungin. Overall prognosis is quite poor. Padilla Goode MD
[2017-04-16] MEDS ORDERED: DiphenhydrAMINE 50 mg/ml Inj IVP STA (00:04)
[2017-04-16] MEDS: Levalbuterol 0.63 MG/3 ML Inhal Soln UD IH SCH ×4 (01:27→20:47)
[2017-04-16] MEDS: Insulin Reg-HIGH-Coverage SC SCH ×4 (04:55→16:58)
[2017-04-16 08:15] LABS: MEAN CELL VOLUME 95.5 fl (80.0-105.0); MEAN CORPUSCULAR HEMOGLOBIN 30.8 pg (25.0-35.0); MEAN CORPUSCULAR HGB CONC 32.3 g/dl (31.0-37.0); MEAN PLATELET VOLUME 10.9 fl (7.0-11.0); RBC 3.57 10^6/uL (3.5-6.1); RED CELL DISTRIBUTION WIDTH 14.1 % (11.5-14.5); WHITE BLOOD COUNT 8.1 10^3/ul (4.5-11.0)
[2017-04-16 08:30] LABS: ALBUMIN 2.6 g/dL (3.0-4.8); ALT/SGPT 50 U/L (7-56); AST/SGOT 45 U/L (17-59); BLOOD UREA NITROGEN 21 mg/dL (7-21); CALCIUM 8.8 mg/dL (8.4-10.5); GFR AFRICAN-AMERICAN > 60; GFR NON-AFRICAN AMERICAN > 60
[2017-04-16 08:37] LABS: ALB/GLOB RATIO 1.2 (1.1-1.8)
--- NOTE | 2017-04-16 09:31 | PN ---
DATE: 04/16/2017 SUBJECTIVE: The patient appears comfortable this morning. He is not short of breath at rest. PHYSICAL EXAMINATION: VITALS: Temperature is 98.4, pulse 55, respirations 20, blood pressure 94/63. Oxygen saturation on nasal cannula is 96%. HEENT: Normocephalic, atraumatic. No JVD. CARDIOVASCULAR: Positive S1, S2. No S3 gallop. LUNGS: Minimal crackles at both bases. Minimal rhonchi. No wheezing. EXTREMITIES: Mild edema. No cyanosis, no clubbing. Calves are nontender to palpation. GI: Abdomen is soft, nontender and nondistended. Bowel sounds are positive. There is a right upper quadrant drain in place. SKIN: No acute rash. NEUROLOGIC: Limited at the present time. IMPRESSION: 1. Sepsis syndrome. 2. Right lower lobe pneumonia. 3. Multiple electrolyte abnormalities. 4. Mild bronchospasm. 5. Probable dehydration. PLAN: The patient appears comfortable this morning. He is not short of breath at rest. He remains very weak appearing. On physical exam, there is no significant bronchospasm noted. In addition, there is no significant alveolar-arterial gradient. I will continue with the current nebulizer treatments for now. The patient remains on antibiotic therapy - as per infectious disease. Input by Dr. Goode is noted. Temperatures have now resolved. Clinical status of the patient is certainly improved - compared to the initial presentation. However, again, the future status/prognosis for this chronically ill elderly patient remains very guarded at best. I will discuss the above with Dr. Nicholson. Medardo Whittaker MD MTDD
--- NOTE | 2017-04-16 12:04 | PN ---
DATE: SUBJECTIVE: I saw Max resting comfortably in bed. He is a kind of weak this morning, little lethargic, and again a great conversation. He is on IV fluids, Aricept, Benadryl, Doryx, Ecotrin, Januvia, Lipitor, Lopressor, micafungin, midodrine, Synthroid, Tylenol and Xopenex. PHYSICAL EXAMINATION: VITAL SIGNS: He has a 98.4 temperature, 55 pulse, 194/63 blood pressure, 22 respiratory rate, 96% O2 sat on 5 L. He had a 102 temperature last night. HEENT: Head is atraumatic, normocephalic. HEART: Regular rate and rhythm. LUNGS: Decreased breath sounds. ABDOMEN: Soft. EXTREMITIES: No edema. LABORATORY DATA: He has a 6.8 white count, he has 11.5 hemoglobin, 175 platelets. Labs are pending this morning. He had a 175 blood sugar. ASSESSMENT AND PLAN: Initial yeast in his blood. He is being seen by Infectious Disease, Renal, Surgery, Cardiology, Pulmonology, GI. He has multiple issues going on, fungemia, sepsis, dementia, acute renal failure, gall bladder disease with pigtail stents, critical coronary artery disease. We will continue with aggressive antifungal and antibacterial antibiotics, and hopefully, we will get him out bed to chair, some physical therapy involved, and hopefully he will improve. Discussed with family at length everyday. Sean Nicholson DO
[2017-04-16] MEDS: Micafungin 100 MG in Sodium Chloride 0.9% 100 ML IV SCH (12:23)
[2017-04-16] MEDS: Levothyroxine 75 MCG TAB PO SCH (12:23)
--- NOTE | 2017-04-16 13:20 | CP.PCM.PN ---
Subjective - Date & Time of Evaluation Date of Evaluation: 04/16/17 Time of Evaluation: 13:19 - Subjective Subjective: Follow up Nephrology Consultation: Assessment: Stable Acute Kidney Injury (N17.9) likely due to dehydration Hypernatremia, Hyperglycemia, chronic hypotension Pneumonia Plan maintain hemodynamics stable Patient not on ACEI/ARB due to DIDI and low BP. resume home dose midodrine 10 mg tid lowered 0.45% saline @ 50 ml/hr antibioitcs as per ID can give normal saline boluses if needed for low BP Dose meds/antibiotics for improved GFR. avoid nephrotoxins/NSAIDs Glycemic control Further work up/management as per primary team Thanks for allowing me to participate in care of your patient. Will sign off and follow PRN. Please call if any Qs. d/w and team Dr Enrique De Leon Office: [phone] Chief Complaint; unable HPI: Pt is a 76 M with hx of dementia, hypotension on midodrine, hx of biliary infections, sepsis, NH resident presented with complaints of fever and found to have pneumonia, DIDI, hyperglycemia and hypernatremia hence renal consulted Bp mostly on low side. no recent IV contrast known ROS: unable to obtain from pt. bedside Physical Examination: General Appearance: Comfortable, in no acute respiratory distress, co-operative . Vitals reviewed and noted as below Head; Atraumatic, normocephalic ENT: no ulcers no thrush. Tongue is midline. Oropharynx: no rash or ulcers. EYES: Pupils are equal, round and reactive to light accommodation. Eye muscles and extraocular movement intact. Sclera is anicteric. Neck; supple no lymphadenopathy, no thyromegaly or bruit Lungs: Normal respiratory rate/effort. Breath sounds bilateral clearer Heart: Normal rate. s1s2 normal. No rub or gallop. Extremities: no edema. No varicose veins Neurological: Patient is alert, awake and demented Skin: Warm and dry. Normal turgor. No rash. Palpitation: Normal elasticity for age Abdomen: Abdomen is soft. Bowel sounds +. There is no abdominal tenderness, no guarding/rigidity no organomegaly Psych: lack insight and has normal affect/mood MSK: no joint tenderness or swelling. Digits and nails normal, no deformity : kidney or bladder not palpable Labs/imaging reviewed. Past medical history, past surgical history, family history, social history, allergy reviewed and noted as below Family hx: no hx of CKD. Rest non-contributory Objective - Vital Signs/Intake and Output Vital Signs (last 24 hours): Temp Pulse Resp BP Pulse Ox 98.4 F 55 L 22 90/56 L 96 04/16/17 07:30 04/16/17 07:30 04/16/17 07:30 04/16/17 12:29 04/16/17 07:30 Intake and Output: 04/16/17 04/16/17 06:59 18:59 Intake Total 240 Output Total 100 Balance 140 - Medications Medications: Current Medications Acetaminophen (Tylenol 650 Mg Supp) 650 mg RC Q4H PRN PRN Reason: Fever >100.4 F Last Admin: 04/15/17 17:20 Dose: 650 mg Aspirin (Ecotrin) 81 mg PO DAILY [facility] Last Admin: 04/16/17 12:24 Dose: 81 mg Atorvastatin Calcium (Lipitor) 40 mg PO DIN [facility] Last Admin: 04/14/17 17:44 Dose: 40 mg Donepezil HCl (Aricept) 10 mg PO HS [facility] Last Admin: 04/15/17 21:17 Dose: 10 mg Doxycycline Hyclate (Doryx) 100 mg PO Q12 [facility] PRN Reason: Protocol Stop: 04/24/17 10:01 Last Admin: 04/16/17 12:24 Dose: 100 mg Micafungin Sodium 100 mg/ (Sodium Chloride) 100 mls @ 100 mls/hr IV DAILY [facility] PRN Reason: Protocol Stop: 05/08/17 11:31 Last Admin: 04/16/17 12:23 Dose: 100 mls/hr Sodium Chloride (Sodium Chloride 0.45%) 1,000 mls @ 50 mls/hr IV .Q20H [facility] Insulin Human Regular (Humulin R High) 0 units SC ACHS [facility] PRN Reason: Protocol Last Admin: 04/16/17 12:37 Dose: 2 units Levalbuterol HCl (Xopenex) 0.63 mg IH [id number] [facility] Last Admin: 04/16/17 08:30 Dose: Not Given Levothyroxine Sodium (Synthroid) 75 mcg PO DAILY [facility] Last Admin: 04/16/17 12:23 Dose: 75 mcg Metoprolol Tartrate (Lopressor) 12.5 mg PO BID [facility] Midodrine (Proamatine) 10 mg PO TID [facility] Last Admin: 04/16/17 12:24 Dose: 10 mg Sitagliptin Phosphate (Januvia) 100 mg PO DAILY [facility] Last Admin: 04/16/17 12:23 Dose: 100 mg - Labs Labs: 04/16/17 08:15 04/16/17 07:30 PT 16.1 SECONDS (9.4-12.5) H 04/12/17 06:50 INR 1.39 (0.93-1.08) H 04/12/17 06:50 APTT 31.6 Seconds (25.1-36.5) 04/12/17 06:50
--- NOTE | 2017-04-16 15:02 | PN ---
DATE: 04/16/2017 CARDIOLOGY FOLLOWUP SUBJECTIVE: The patient is sitting in bed eating without chest pain. PHYSICAL EXAMINATION: VITAL SIGNS: Blood pressure is 94/63, heart rates in the 50s. HEART: Normal sinus rhythm. NECK: Negative JVD. LUNGS: Without rales. HEART: S1, S2. EXTREMITIES: Without edema. LABORATORY DATA: Hemoglobin is 11. Chemistries: BUN and creatinine normal. Glucose is 163. IMPRESSION: 1. Sepsis. 2. History of triple-vessel coronary artery disease. 3. Cholecystitis. 4. Diabetes mellitus. 5. Bradycardia secondary to medications. PLAN: Given these findings, we will decrease his beta-blockers today. We will continue medical therapy for his multivessel CAD. Janusz Landry MD
--- NOTE | 2017-04-16 16:31 | CARD ---
APPROVED REPORT EXAM: Two-dimensional and M-mode echocardiogram with Doppler and color Doppler. INDICATION Infection:Rule out subacute bacterial endocarditis 2D DIMENSIONS Left Atrium (2D)3.7 (1.6-4.0cm)IVSd1.0 (0.7-1.1cm) LVDd4.3 (3.9-5.9cm)PWd1.1 (0.7-1.1cm) LVDs3.8 (2.5-4.0cm)FS (%) 11.9 % LVEF (%)25.9 (>50%) M-Mode DIMENSIONS Aortic Root3.00 (2.2-3.7cm)Aortic Cusp Exc.1.40 (1.5-2.0cm) Aortic Valve AoV Peak Dpjtiwnw143.0cm/Valdo Peak GR.9mmHg Mitral Valve MV E Wtflnkpj79.6cm/sMV A Dvjsfbml84.1cm/sE/A ratio0.8 TDI E/Lateral E'0.0E/Medial E'0.0 LEFT VENTRICLE The left ventricle is normal size. There is normal left ventricular wall thickness. The systolic function is severely impaired. There is global hypokinesis of the left ventricle. Transmitral Doppler flow pattern is Grade I-abnormal relaxation pattern. RIGHT VENTRICLE The right ventricle is normal size. There is normal right ventricular wall thickness. The right ventricular systolic function is normal. ATRIA The left atrium size is normal. The right atrium size is normal. AORTIC VALVE The aortic valve is moderately thickened. No aortic regurgitation is present. There is no aortic valvular stenosis. MITRAL VALVE The mitral valve is not well visualized. There is no mitral valve regurgitation noted. There is no mitral valve stenosis. GREAT VESSELS The aortic root is normal in size. The IVC was not visualized. <Conclusion> The left ventricle is normal size. There is normal left ventricular wall thickness. The systolic function is severely impaired. There is global hypokinesis of the left ventricle. Transmitral Doppler flow pattern is Grade I-abnormal relaxation pattern. The aortic valve is moderately thickened. The mitral valve is not well visualized.
--- NOTE | 2017-04-16 16:54 | CP.PCM.PCO ---
Physician Communication Note - Physician Communication Note Physician Communication Note: Cholecystostomy tube removed this morning. Will f/ u tomorrow AM labs
--- NOTE | 2017-04-16 18:04 | CP.PCM.PN ---
Subjective - Date & Time of Evaluation Date of Evaluation: 04/16/17 Time of Evaluation: 12:50 - Subjective Subjective: Developed a rash on the left side, had fever overnight. Objective - Vital Signs/Intake and Output Vital Signs (last 24 hours): Temp Pulse Resp BP Pulse Ox 98.4 F 55 L 22 94/63 L 96 04/16/17 07:30 04/16/17 07:30 04/16/17 07:30 04/16/17 07:30 04/16/17 07:30 Intake and Output: 04/16/17 04/16/17 06:59 18:59 Intake Total 240 Output Total 100 Balance 140 - Medications Medications: Current Medications Acetaminophen (Tylenol 650 Mg Supp) 650 mg RC Q4H PRN PRN Reason: Fever >100.4 F Last Admin: 04/15/17 17:20 Dose: 650 mg Aspirin (Ecotrin) 81 mg PO DAILY [facility] Last Admin: 04/15/17 12:13 Dose: 81 mg Atorvastatin Calcium (Lipitor) 40 mg PO DIN [facility] Last Admin: 04/14/17 17:44 Dose: 40 mg Donepezil HCl (Aricept) 10 mg PO HS [facility] Last Admin: 04/15/17 21:17 Dose: 10 mg Doxycycline Hyclate (Doryx) 100 mg PO Q12 [facility] PRN Reason: Protocol Stop: 04/24/17 10:01 Last Admin: 04/15/17 21:17 Dose: 100 mg Sodium Chloride (Sodium Chloride 0.45%) 1,000 mls @ 100 mls/hr IV .Q10H [facility] Last Admin: 04/15/17 16:26 Dose: 100 mls/hr Micafungin Sodium 100 mg/ (Sodium Chloride) 100 mls @ 100 mls/hr IV DAILY [facility] PRN Reason: Protocol Stop: 05/08/17 11:31 Last Admin: 04/14/17 17:45 Dose: 100 mls/hr Insulin Human Regular (Humulin R High) 0 units SC ACHS [facility] PRN Reason: Protocol Last Admin: 04/16/17 04:55 Dose: Not Given Levalbuterol HCl (Xopenex) 0.63 mg IH [id number] [facility] Last Admin: 04/16/17 01:27 Dose: 0.63 mg Levothyroxine Sodium (Synthroid) 75 mcg PO DAILY [facility] Last Admin: 04/15/17 12:13 Dose: 75 mcg Metoprolol Tartrate (Lopressor) 25 mg PO BID [facility] Last Admin: 04/15/17 20:03 Dose: Not Given Midodrine (Proamatine) 10 mg PO TID [facility] Last Admin: 04/15/17 20:03 Dose: Not Given Sitagliptin Phosphate (Januvia) 100 mg PO DAILY [facility] Last Admin: 04/15/17 12:13 Dose: 100 mg - Labs Labs: 04/16/17 08:15 04/16/17 07:30 PT 16.1 SECONDS (9.4-12.5) H 04/12/17 06:50 INR 1.39 (0.93-1.08) H 04/12/17 06:50 APTT 31.6 Seconds (25.1-36.5) 04/12/17 06:50 - Constitutional Appears: Chronically Ill - Head Exam Head Exam: NORMAL INSPECTION - ENT Exam ENT Exam: Mucous Membranes Moist - Neck Exam Neck Exam: absent: Meningismus - Respiratory Exam Respiratory Exam: Decreased Breath Sounds - Cardiovascular Exam Cardiovascular Exam: +S1, +S2 - GI/Abdominal Exam GI & Abdominal Exam: Soft. absent: Tenderness Assessment and Plan - Assessment and Plan (Free Text) Plan: Assessment consider severe sepsis with acute renal failure due to multifocal HCAP with possible gram positive cocci and/or gram negative bacilli as well as C. albicans fungemia rash, R/O drug-induced history of Septic shock S/P ventilator-dependent respiratory failure and acute renal failure from ESBL-producing multidrug resistant E. 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 coli bacteremia and sepsis probably biliary tree in origin History of Klebsiella UTI Plan will hold Meropenem, continue doxycycline; complete course of Tamiflu; repeat blood cx are negative; still awaiting echocardiogram results and should also get Ophtho exam - may need at least 4 weeks of therapy overall prognosis is poor
[2017-04-17] MEDS: Levalbuterol 0.63 MG/3 ML Inhal Soln UD IH SCH ×4 (01:12→21:15)
[2017-04-17] MEDS: Insulin Reg-HIGH-Coverage SC SCH ×5 (01:28→22:00)
[2017-04-17 07:55] LABS: HEMOGLOBIN 11.2 g/dL (14.0-18.0); MEAN CELL VOLUME 93.5 fl (80.0-105.0); MEAN CORPUSCULAR HEMOGLOBIN 30.5 pg (25.0-35.0); MEAN CORPUSCULAR HGB CONC 32.7 g/dl (31.0-37.0); MEAN PLATELET VOLUME 10.5 fl (7.0-11.0); RBC 3.67 10^6/uL (3.5-6.1); RED CELL DISTRIBUTION WIDTH 13.7 % (11.5-14.5); WHITE BLOOD COUNT 7.2 10^3/ul (4.5-11.0)
[2017-04-17 08:16] LABS: ALB/GLOB RATIO 1.2 (1.1-1.8); ALBUMIN 2.6 g/dL (3.0-4.8); ALT/SGPT 55 U/L (7-56); AST/SGOT 36 U/L (17-59); BLOOD UREA NITROGEN 19 mg/dL (7-21); CALCIUM 8.9 mg/dL (8.4-10.5); GFR AFRICAN-AMERICAN > 60; GFR NON-AFRICAN AMERICAN > 60
--- NOTE | 2017-04-17 08:24 | PN ---
DATE: 04/17/2017 PULMONARY NOTE SUBJECTIVE: The patient appears comfortable this morning. He is not short of breath at rest. PHYSICAL EXAMINATION: VITAL SIGNS: (Last noted in the computer): Temperature is 97.7, pulse 60, respirations 18/20, blood pressure 96/61. Oxygen saturation on nasal cannula is 97%. HEENT: Normocephalic, atraumatic. NECK: No JVD. CARDIOVASCULAR: Positive S1, S2. No S3 gallop. LUNGS: Minimal crackles at both bases. Very minimal/less rhonchi. No wheezing. EXTREMITIES: Mild edema. No cyanosis, no clubbing. Calves are nontender to palpation. GI: Abdomen is soft, nontender and nondistended. Bowel sounds are positive. There is a right upper quadrant drain in place. SKIN: No acute rash. NEUROLOGIC: Exam limited at the present time. IMPRESSION: 1. Sepsis syndrome. 2. Right lower lobe pneumonia. 3. Multiple electrolyte abnormalities. 4. Mild bronchospasm. 5. Probable dehydration. PLAN: The patient appears comfortable this morning. He is not short of breath at rest. He remains very weak appearing. On physical exam, his bronchospasm is less. In addition, there is no significant alveolar-arterial gradient. I will continue with the current nebulizer treatments for now. I will also continue with the aspiration precautions. The patient remains on antibiotic therapy - as per Infectious Disease. Temperatures have resolved. The leukocytosis has also resolved. Inputs by Renal and Cardiology are also noted. Clinical status of the patient is certainly improved. However, again, the future status/prognosis for this chronically ill elderly patient ,remains very guarded at best. I will discuss the above with Dr. Nicholson. Medardo Whittaker MD [facility]
[2017-04-17] MEDS: Sodium Chloride 0.45% 1,000 ML IV SCH (08:29)
--- NOTE | 2017-04-17 08:35 | CP.PCM.PN ---
Subjective - Date & Time of Evaluation Date of Evaluation: 04/17/17 Time of Evaluation: 07:32 - Subjective Subjective: Surgery Progress note. Dr. Krishnamurthy Pt seen and examined at bedside. No acute events overnight. No F/C. No N/V/D. no Abd pain. no new complaints. Objective - Vital Signs/Intake and Output Vital Signs (last 24 hours): Temp Pulse Resp BP Pulse Ox 97.7 F 60 20 96/61 L 97 04/16/17 17:35 04/16/17 17:35 04/16/17 17:35 04/16/17 17:35 04/16/17 17:35 Intake and Output: 04/17/17 04/17/17 06:59 18:59 Intake Total 360 Balance 360 - Medications Medications: Current Medications Acetaminophen (Tylenol 650 Mg Supp) 650 mg RC Q4H PRN PRN Reason: Fever >100.4 F Last Admin: 04/15/17 17:20 Dose: 650 mg Aspirin (Ecotrin) 81 mg PO DAILY [facility] Last Admin: 04/16/17 12:24 Dose: 81 mg Atorvastatin Calcium (Lipitor) 40 mg PO DIN [facility] Last Admin: 04/16/17 17:00 Dose: 40 mg Donepezil HCl (Aricept) 10 mg PO HS [facility] Last Admin: 04/16/17 22:00 Dose: 10 mg Doxycycline Hyclate (Doryx) 100 mg PO Q12 [facility] PRN Reason: Protocol Stop: 04/24/17 10:01 Last Admin: 04/16/17 22:00 Dose: 100 mg Sodium Chloride (Sodium Chloride 0.45%) 1,000 mls @ 50 mls/hr IV .Q20H [facility]AN[facility] Fluconazole (Diflucan Iv 400mg/200ml Ns) 200 mls @ 100 mls/hr IVPB DAILY [facility] PRN Reason: Protocol Stop: 05/11/17 10:01 Insulin Human Regular (Humulin R High) 0 units SC ACHS [facility]DA PRN Reason: Protocol Last Admin: 04/17/17 01:28 Dose: Not Given Levalbuterol HCl (Xopenex) 0.63 mg IH [id number] [facility] Last Admin: 04/17/17 07:49 Dose: 0.63 mg Levothyroxine Sodium (Synthroid) 75 mcg PO DAILY [facility] Last Admin: 04/16/17 12:23 Dose: 75 mcg Metoprolol Tartrate (Lopressor) 12.5 mg PO BID [facility] Last Admin: 04/16/17 17:01 Dose: Not Given Midodrine (Proamatine) 10 mg PO TID [facility] Last Admin: 04/16/17 17:00 Dose: 10 mg Sitagliptin Phosphate (Januvia) 100 mg PO DAILY [facility] Last Admin: 04/16/17 12:23 Dose: 100 mg - Labs Labs: 04/17/17 07:00 04/17/17 07:00 PT 16.1 SECONDS (9.4-12.5) H 04/12/17 06:50 INR 1.39 (0.93-1.08) H 04/12/17 06:50 APTT 31.6 Seconds (25.1-36.5) 04/12/17 06:50 - Constitutional Appears: Non-toxic, No Acute Distress - Head Exam Head Exam: ATRAUMATIC, NORMAL INSPECTION, NORMOCEPHALIC - Eye Exam Eye Exam: EOMI, Normal appearance. absent: Scleral icterus - ENT Exam ENT Exam: Mucous Membranes Moist - Cardiovascular Exam Cardiovascular Exam: absent: JVD - GI/Abdominal Exam GI & Abdominal Exam: Soft. absent: Distended, Firm, Guarding, Rigid, Tenderness , Rebound Additional comments: RUQ dressing clean, dry and intact. No sign of biliary drainage on bandage. - Extremities Exam Extremities Exam: Normal Inspection. absent: Calf Tenderness - Neurological Exam Neurological Exam: Alert, Awake - Psychiatric Exam Psychiatric exam: Normal Affect - Skin Skin Exam: Dry, Intact, Normal Color, Warm Assessment and Plan - Assessment and Plan (Free Text) Assessment: 76yo M with cholecystostomy tube removed on 04/16/17 as no evidence of biliary tree obstruction - LFTs wnl - Hypotensive but stable Vitals Plan: - No further plans from surgery standpoint - Continue dry guaze dressing to RUQ as needed Further recs as per Dr. Raghu Guajardo PGY1 surgery pager: [phone]
[2017-04-17] MEDS: Levothyroxine 75 MCG TAB PO SCH (10:02)
[2017-04-17] MEDS: Fluconazole IV 400mg/200ml NS 200 ML IVPB SCH (10:36)
[2017-04-17] MEDS: Nystatin 100,000 Units/gm Topical Pow(15 gm) TOP SCH ×2 (14:37→17:57)
[2017-04-17 16:07] LABS: URINE BILIRUBIN NEGATIVE (NEGATIVE); URINE BLOOD LARGE (NEGATIVE); URINE GLUCOSE (UA) 500 mg/dL (NEGATIVE); URINE LEUKOCYTE ESTERASE MODERATE Leu/uL (NEGATIVE); URINE NITRATE POSITIVE (NEGATIVE); URINE PROTEIN 100 mg/dL (<30 mg/dL); URINE UROBILINOGEN 0.2 E.U./dL (<1 E.U./dL)
[2017-04-17 16:08] LABS: URINE APPEARANCE CLOUDY (CLEAR); URINE COLOR YELLOW (YELLOW)
[2017-04-17 16:14] LABS: URINE BACTERIA MANY (NEG); URINE RBC TNTC /hpf (0-2); URINE WBC TNTC /hpf (0-6)
--- NOTE | 2017-04-17 18:15 | PN ---
DATE: SUBJECTIVE: I had a very long conversation with both the and the daughter about his condition and where we are going and what we are doing. He is sitting up in bed, also he is more alert today and he ate better today. He does have some fungal infection areas. We will give him some nystatin for that. MEDICATIONS: He is on IV fluids, Aricept, Benadryl. He is now on Diflucan IV, doxycycline, Ecotrin, Januvia, Lipitor, Lopressor, midodrine, Synthroid, Tylenol, and Xopenex. He is off the . PHYSICAL EXAMINATION: VITAL SIGNS: He has a 98.6 temperature, 65 pulse, 105/63 blood pressure, 20 respiratory rate, and 96% O2 saturations on 5 liters of nasal cannula. HEENT: Head is atraumatic, normocephalic. He is alert and talking, smiling. HEART: Regular rate. LUNGS: Decreased breath sounds, but clear. ABDOMEN: Soft. EXTREMITIES: No edema to the best I have seen him. LABORATORY DATA: He has a 145 sodium, potassium 3.8, BUN 19, creatinine 0.7, GFR is greater than 60, sugar is 131, calcium is 8.9, total bilirubin is 0.9, AST is 35, ALT is 55, and alk phos 76, total protein is 12.8, white count is 7.2, hemoglobin is 11.2, hematocrit 34.3, and platelet of 160. ASSESSMENT AND PLAN: He is being seen by Surgery, the Pigtail catheter alone right now. Cardiology, Infectious Disease, IV antibiotics, and Pulmonary. He is so far improving. He is on multiple medications. He has multiple problems from pneumonia to fungemia to sever sepsis, Alzheimer's, acute renal failure, coronary artery disease, and I do think he is going to come around. We will check his labs tomorrow. Sean Nicholson DO MTDRogelio
[2017-04-18] MEDS: Levalbuterol 0.63 MG/3 ML Inhal Soln UD IH SCH ×5 (01:33→23:37)
--- NOTE | 2017-04-18 03:13 | PN ---
DATE: 04/17/2017 SUBJECTIVE: The patient seen earlier today in room 575, bed 1. PHYSICAL EXAMINATION VITAL SIGNS: Temperature is 98, blood pressure is 100/60 and respiratory rate of 18. HEENT: Unremarkable. NECK: Supple. LUNGS: Have decreased breath sounds. HEART: Normal S1 and S2. ABDOMEN: Soft. SKIN: The rash is improving. LABORATORY DATA: Reveals a white count of 7.2, hemoglobin of 11. BUN of 19 and creatinine of 0.7. Microbiology reveals repeat blood cultures are negative and the initial blood cultures have reported to be Haylee albicans in the blood, in the urine also in the yeast. Currently, the patient on doxycycline and the patient is also on IV fluconazole. ASSESSMENT AND PLAN: A 76-year-old male with severe sepsis with acute renal failure due to multifocal community acquired pneumonia and possible for positive cocci, positive gram-negative rods also with Haylee albicans fungemia secondary to Haylee albicans probably in the urine, developed a rash, drug induced rash. We will be able to switch the p.o. Diflucan. We will follow with you to make further recommendations. Padilla Goode MD
[2017-04-18] MEDS: Sodium Chloride 0.45% 1,000 ML IV SCH (07:02)
[2017-04-18 07:57] LABS: HEMOGLOBIN 10.8 g/dL (14.0-18.0); MEAN CELL VOLUME 91.6 fl (80.0-105.0); MEAN CORPUSCULAR HEMOGLOBIN 30.1 pg (25.0-35.0); MEAN CORPUSCULAR HGB CONC 32.8 g/dl (31.0-37.0); MEAN PLATELET VOLUME 10.4 fl (7.0-11.0); RBC 3.59 10^6/uL (3.5-6.1); RED CELL DISTRIBUTION WIDTH 13.6 % (11.5-14.5); WHITE BLOOD COUNT 6.1 10^3/ul (4.5-11.0)
--- NOTE | 2017-04-18 08:27 | PN ---
DATE: 04/18/2017 PULMONARY PROGRESS NOTE SUBJECTIVE: The patient appears comfortable this morning. He is awake and alert. He is not short of breath at rest. PHYSICAL EXAMINATION: VITAL SIGNS: Temperature is 98.2, pulse is 56, respirations are 18, and blood pressure is 102/72. Oxygen saturation on nasal cannula is 98%. HEENT: Normocephalic and atraumatic. NECK: No JVD. CARDIOVASCULAR: Positive S1 and S2. No S3 gallop. LUNGS: Minimal crackles at both bases. Minimal/less rhonchi. No wheezing. EXTREMITIES: Mild edema. No cyanosis and no clubbing. Calves are nontender to palpation. GASTROINTESTINAL: Abdomen is soft, nontender and nondistended. Bowel sounds are positive. There is a right upper quadrant drain in place. SKIN: No acute rash. NEUROLOGIC: Exam is limited at the present time. IMPRESSION 1. Sepsis syndrome. 2. Right lower lobe pneumonia. 3. Multiple electrolyte abnormalities. 4. Mild bronchospasm. 5. Probable dehydration. PLAN: The patient appears comfortable this morning. He is not short of breath at rest. He is awake and alert. On physical exam, there is no significant bronchospasm noted. In addition, the oxygen saturation on nasal cannula is now 98%. I will continue the current nebulizer treatments for now. I will also continue with the aspiration precautions. I would continue with the antibiotic coverage as per Infectious Diseases. The temperatures have now fully resolved. Surgical input is also noted. Clinical status of the patient is certainly improved. However, unfortunately, the future status/prognosis for this chronically ill elderly patient remains very guarded at best. I will discuss the above with Dr. Nicholson. Medardo Whittaker MD [facility]
[2017-04-18 08:36] LABS: ALB/GLOB RATIO 1.1 (1.1-1.8); ALBUMIN 2.5 g/dL (3.0-4.8); ALT/SGPT 49 U/L (7-56); AST/SGOT 35 U/L (17-59); BLOOD UREA NITROGEN 17 mg/dL (7-21); CALCIUM 8.4 mg/dL (8.4-10.5); GFR AFRICAN-AMERICAN > 60; GFR NON-AFRICAN AMERICAN > 60
[2017-04-18] MEDS: Insulin Reg-HIGH-Coverage SC SCH ×4 (09:30→22:01)
[2017-04-18] MEDS: Levothyroxine 75 MCG TAB PO SCH (10:25)
[2017-04-18] MEDS: Nystatin 100,000 Units/gm Topical Pow(15 gm) TOP SCH ×3 (11:30→18:23)
[2017-04-18] MEDS: Fluconazole IV 400mg/200ml NS 200 ML IVPB SCH (11:39)
--- NOTE | 2017-04-18 14:37 | PN ---
DATE: 04/18/2017 SUBJECTIVE: I saw him with his in his room this morning. He is alert, he is talking, and he is feeling stronger. He ate a little bit. He still has not gotten out of bed, might need to work on that. MEDICATIONS: He is on IV fluids, Aricept, fluconazole IV, Doryx, Ecotrin, Januvia, Lipitor, Lopressor, nystatin powder, midodrine, Synthroid, Tylenol, and Xopenex. PHYSICAL EXAMINATION: VITAL SIGNS: He has a 98.1 temperature, 57 pulse, 109/70 blood pressure, 18 respiratory rate, and 97% O2 saturation on room air. HEENT: His head is atraumatic, normocephalic. GENERAL: He is looking at me. He is confused. HEART: Regular rate. LUNGS: Decreased breath sounds, but clear. ABDOMEN: Soft. EXTREMITIES: No edema. He is quite weak. I am hoping to get him up to the point where he could stand and pivot to go from hospital bed to chair, so he does at the retirement. LABORATORY DATA: He has a 6.1 white count, 10.8 hemoglobin, 32.9 hematocrit with 177 platelets. He has 140 sodium, potassium 3.8, BUN 17, creatinine 0.6, sugar is 126, calcium is 8.4, total bilirubin is 0.9. AST is 35, ALT is 49, alkaline phosphatase is 83, total protein is 4.7. ASSESSMENT AND PLAN: He is being seen by Pulmonary, Infectious Disease, Surgery, Renal, Cardiology. He has pneumonia, fungemia, severe sepsis, Alzheimer's disease, anemia, acute renal failure, coronary artery disease, low potassium. We will be replacing the potassium when we need to. Hopefully, he will get some physical therapy. When he will be okay from Infectious Disease, we will transfer him back to [facility], where he lives permanently. Sean Nicholson DO MTDD
--- NOTE | 2017-04-18 18:42 | PN ---
DATE: 04/18/2017 SUBJECTIVE: The patient is in bed in no acute distress, nontoxic and seen earlier this morning having breakfast. He was able to eat yogurt and he is tolerating the yogurt. PHYSICAL EXAMINATION: VITAL SIGNS: Temperature is 98, blood pressure is 109/70, respiratory of 18, heart rate of 60. HEENT: Unremarkable. NECK: Supple. LUNGS: Have decreased breath sounds. HEART: Normal S1, S2. ABDOMEN: Soft and nontender. LABORATORY EXAMINATION: Reveals a white count of 6.1, hemoglobin of 10. BUN of 17, creatinine of 0.6 and procalcitonin 0.63 and urinalysis is noted. Serology is negative for Legionella and influenza is negative. Serology review of orders reveals the patient to be on IV fluconazole. Review of the cultures reveals the repeat blood cultures have been negative now since the 04/14/2017. ASSESSMENT AND PLAN: This is a 76-year-old male seen earlier today in 575, bed 1, eating his breakfast, who was initially admitted with severe sepsis with acute renal failure, due to multifocal community-acquired possible Gram-positive cocci, possible Gram-negative jade and the patient with Haylee albicans fungemia positive blood culture secondary to Haylee albicans secondary to in the urine and developed a rash and the meropenem was discontinued. Now, we will switch to Diflucan 200 mg p.o. once daily times 28 days. We will discontinue the doxycycline and we will follow closely with you. Dr. Whittaker's note from this morning is also reviewed and appreciated. The patient is much improved. Padilla Goode MD
[2017-04-19] MEDS: Levalbuterol 0.63 MG/3 ML Inhal Soln UD IH SCH ×3 (02:23→14:03)
[2017-04-19] MEDS: Sodium Chloride 0.45% 1,000 ML IV SCH (04:56)
[2017-04-19] MEDS: Insulin Reg-HIGH-Coverage SC SCH (07:30)
[2017-04-19 08:22] LABS: HEMOGLOBIN 10.5 g/dL (14.0-18.0); MEAN CELL VOLUME 91.3 fl (80.0-105.0); MEAN CORPUSCULAR HEMOGLOBIN 30.6 pg (25.0-35.0); MEAN CORPUSCULAR HGB CONC 33.5 g/dl (31.0-37.0); MEAN PLATELET VOLUME 10.4 fl (7.0-11.0); RBC 3.43 10^6/uL (3.5-6.1); RED CELL DISTRIBUTION WIDTH 13.5 % (11.5-14.5); WHITE BLOOD COUNT 5.7 10^3/ul (4.5-11.0)
--- NOTE | 2017-04-19 08:25 | PN ---
DATE: 04/19/2017 PULMONARY NOTE SUBJECTIVE: The patient appears comfortable this morning. He is not short of breath at rest. OBJECTIVE: VITALS: Temperature is 97.3, pulse 56, respirations 19, blood pressure 97/62. Oxygen saturation on nasal cannula is 97%. HEENT: Normocephalic, atraumatic. No JVD. CARDIOVASCULAR: Positive S1, S2. No S3 gallop. LUNGS: Less crackles at both bases. Less rhonchi. No wheezing. EXTREMITIES: Mild edema. No cyanosis, no clubbing. Calves are nontender to palpation. GI: Abdomen is soft, nontender, and nondistended. Bowel sounds are positive. SKIN: No acute rash. NEUROLOGIC: Limited at the present time. IMPRESSION: 1. Sepsis syndrome. 2. Right lower lobe pneumonia. 3. Multiple electrolyte abnormalities. 4. Mild bronchospasm. 5. Probable dehydration. PLAN: The patient appears comfortable this morning. He is not short of breath at rest. He is awake and alert. On physical exam, there is no significant bronchospasm noted. In addition, there is no significant alveolar-arterial gradient. Oxygen saturation on nasal cannula is 97%-99%. I will continue with the current nebulizer treatments and aspiration precautions for now. The patient remains on antibiotic therapy - as per Infectious Disease. Temperatures have fully resolved. Clinical status of the patient is certainly improved - compared to last week. However, again, the future status/prognosis for this chronically ill elderly patient remains very guarded at best. I will discuss the above with Dr. Nicholson. Medardo Whittaker MD MT[facility]ogel[facility]
[2017-04-19 08:38] LABS: ALB/GLOB RATIO 1.1 (1.1-1.8); ALBUMIN 2.5 g/dL (3.0-4.8); ALT/SGPT 46 U/L (7-56); AST/SGOT 35 U/L (17-59); BLOOD UREA NITROGEN 13 mg/dL (7-21); CALCIUM 8.3 mg/dL (8.4-10.5); GFR AFRICAN-AMERICAN > 60; GFR NON-AFRICAN AMERICAN > 60
[2017-04-19 08:48] VITALS: BP 109/62; RESP 20; TEMP 98.7; O2SAT 96
--- NOTE | 2017-04-19 09:05 | PN ---
DATE: 04/17/2017 SUBJECTIVE: The patient is awake, alert, eating without chest pain. PHYSICAL EXAMINATION VITAL SIGNS: Blood pressure 105/63, heart rate is 55, normal sinus rhythm. NECK: Negative JVD. LUNGS: Without rales. HEART: S1, S2. EXTREMITIES: Without edema. LABORATORY DATA: Hemoglobin is 11.2, BUN and creatinine unremarkable. IMPRESSION: 1. Stable angina. 2. Triple vessel coronary artery disease. 3. Diabetes mellitus. 4. Cholecystitis. 5. Dementia. PLAN: Given these findings the patient's medical treatment of his coronary artery disease is stable. We will continue his beta-blockers. Janusz Landry MD
[2017-04-19] MEDS ORDERED: Potassium Chloride 20 mEq ER Tab PO ONE (09:28)
[2017-04-19] MEDS: Levothyroxine 75 MCG TAB PO SCH (10:48)
[2017-04-19] MEDS: Nystatin 100,000 Units/gm Topical Pow(15 gm) TOP SCH (10:48)
[2017-04-19 12:14] VITALS: PULSE 66
--- NOTE | 2017-04-19 13:53 | PN ---
DATE: 04/19/2017 CARDIOLOGY FOLLOWUP SUBJECTIVE: The patient is comfortable in bed without shortness of breath, without chest pain. PHYSICAL EXAMINATION: VITAL SIGNS: Blood pressure is 109/62 with heart rates in the 50s, normal sinus rhythm. NECK: Negative JVD. LUNGS: Without rales. HEART: With S1, S2. EXTREMITIES: Without edema. LABORATORY DATA: Hemoglobin is 10.5. Chemistries: BUN and creatinine unremarkable. Glucose is 118. IMPRESSION: 1. Stable angina. 2. Anemia. 3. History of multivessel coronary artery disease. 4. History of cholecystitis. 5. Diabetes mellitus. Given these findings, we will continue the patient's anti-anginal treatment. His coronary disease is treated medically. Janusz Landry MD
--- NOTE | 2017-04-19 15:19 | PN ---
DATE: 04/19/2017 SUBJECTIVE: He is doing better. He is in bed, still weak. He is eating some, but not much. He is on IV fluids, Aricept, Diflucan, Ecotrin, insulin, Januvia, Lipitor, Lopressor, nystatin powder, ProAmatine, Synthroid, Tylenol, and Xopenex. PHYSICAL EXAMINATION: VITAL SIGNS: He has a 97.6 temperature, 66 pulse, 97/62 blood pressure, 19 respiratory rate, 97% O2 saturation on nasal cannula. HEENT: Head is atraumatic, normocephalic. HEART: Regular rate. LUNGS: Decreased breath sounds. ABDOMEN: Soft. EXTREMITIES: No edema. on discharging him back to the [facility] today possibly if it can be arranged. I will discuss this with the consults and see if we can possibly discharge him as pigtail catheter is out. No plan for surgery secondary to his critical aortic disease and coronary artery disease. He had pneumonia,fungemia, severe sepsis, Alzheimer's, acute renal failure. Hopefully, we can discharge him back today. Sean Nicholson DO MTDD
--- NOTE | 2017-04-19 16:37 | CP.PCM.PN ---
Subjective - Date & Time of Evaluation Date of Evaluation: 04/19/17 Time of Evaluation: 12:40 - Subjective Subjective: Comfortable, no fevers, not in distress. Objective - Vital Signs/Intake and Output Vital Signs (last 24 hours): Temp Pulse Resp BP Pulse Ox 98.7 F 54 L 20 109/62 96 04/19/17 08:00 04/19/17 08:00 04/19/17 08:00 04/19/17 08:00 04/19/17 08:00 Intake and Output: 04/19/17 04/19/17 06:59 18:59 Intake Total 240 Balance 240 - Medications Medications: Current Medications Acetaminophen (Tylenol 650 Mg Supp) 650 mg RC Q4H PRN PRN Reason: Fever >100.4 F Last Admin: 04/15/17 17:20 Dose: 650 mg Aspirin (Ecotrin) 81 mg PO DAILY [facility] Last Admin: 04/18/17 11:37 Dose: 81 mg Atorvastatin Calcium (Lipitor) 40 mg PO DIN [facility] Last Admin: 04/18/17 18:31 Dose: 40 mg Donepezil HCl (Aricept) 10 mg PO HS [facility] Last Admin: 04/18/17 22:04 Dose: 10 mg Fluconazole (Diflucan) 200 mg PO DAILY [facility] PRN Reason: Protocol Stop: 05/17/17 10:01 Sodium Chloride (Sodium Chloride 0.45%) 1,000 mls @ 50 mls/hr IV .Q20H [facility] Last Admin: 04/19/17 04:56 Dose: 50 mls/hr Insulin Human Regular (Humulin R High) 0 units SC ACHS [facility] PRN Reason: Protocol Last Admin: 04/19/17 07:30 Dose: Not Given Levalbuterol HCl (Xopenex) 0.63 mg IH [id number] [facility] Last Admin: 04/19/17 07:14 Dose: 0.63 mg Levothyroxine Sodium (Synthroid) 75 mcg PO DAILY [facility] Last Admin: 04/18/17 10:25 Dose: 75 mcg Metoprolol Tartrate (Lopressor) 12.5 mg PO BID [facility] Last Admin: 04/18/17 18:31 Dose: Not Given Midodrine (Proamatine) 10 mg PO TID [facility] Last Admin: 04/18/17 18:33 Dose: Not Given Mupirocin (Bactroban Ointment) 1 gm TOP BID [facility] Nystatin (Nystop Topical Powder) 0 gm TOP TID [facility] Last Admin: 04/18/17 18:23 Dose: 1 appl Sitagliptin Phosphate (Januvia) 100 mg PO DAILY [facility] Last Admin: 04/18/17 11:37 Dose: 100 mg - Labs Labs: 04/19/17 08:00 04/19/17 08:00 PT 16.1 SECONDS (9.4-12.5) H 04/12/17 06:50 INR 1.39 (0.93-1.08) H 04/12/17 06:50 APTT 31.6 Seconds (25.1-36.5) 04/12/17 06:50 - Constitutional Appears: Chronically Ill - Head Exam Head Exam: NORMAL INSPECTION - Respiratory Exam Respiratory Exam: Decreased Breath Sounds - Cardiovascular Exam Cardiovascular Exam: +S1, +S2 - GI/Abdominal Exam GI & Abdominal Exam: Soft. absent: Tenderness Assessment and Plan - Assessment and Plan (Free Text) Plan: Assessment C. 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 coli bacteremia and sepsis probably biliary tree in origin History of Klebsiella UTI Plan completed course of Merrem and Doxycycline continue PO Diflucan 200 mg daily for 4 weeks with weekly CBC, CMP while on fluconazole
== END 2017-04-19 15:12 | DRG 871 ==
LOC: ED 06:29 → ERH 08:52 → 5RSO 11:21
PROVIDERS: ADMIT Family Medicine; ATTEND Family Medicine
PROC: 3E0F7GC Introduction of Other Therapeutic Substance into Respiratory Tract, Via Natural or Artificial Opening (ICD-10-PCS; principal; 2017-04-12)
DX: B37.7 Candidal sepsis (principal); R65.20 Severe sepsis without septic shock; N17.9 Acute kidney failure, unspecified; J18.9 Pneumonia, unspecified organism; D61.818 Other pancytopenia; D59.1 Other autoimmune hemolytic anemias; E11.22 Type 2 diabetes mellitus with diabetic chronic kidney disease; E11.65 Type 2 diabetes mellitus with hyperglycemia; I13.0 Hypertensive heart and chronic kidney disease with heart failure and stage 1 through stage 4 chronic kidney disease, or unspecified chronic kidney disease; E87.0 Hyperosmolality and hypernatremia; K81.2 Acute cholecystitis with chronic cholecystitis; B37.49 Other urogenital candidiasis; I50.9 Heart failure, unspecified; E86.0 Dehydration; K21.9 Gastro-esophageal reflux disease without esophagitis; D46.9 Myelodysplastic syndrome, unspecified; G30.9 Alzheimer's disease, unspecified; F02.80 Dementia in other diseases classified elsewhere, unspecified severity, without behavioral disturbance, psychotic disturbance, mood disturbance, and anxiety; E03.9 Hypothyroidism, unspecified; I25.118 Atherosclerotic heart disease of native coronary artery with other forms of angina pectoris; N18.9 Chronic kidney disease, unspecified; J98.01 Acute bronchospasm; I95.89 Other hypotension; R00.1 Bradycardia, unspecified; F32.9 Major depressive disorder, single episode, unspecified; R21 Rash and other nonspecific skin eruption; Y95 Nosocomial condition; Z85.46 Personal history of malignant neoplasm of prostate; Z87.891 Personal history of nicotine dependence

== ENCOUNTER 2017-09-09 03:59 | Inpatient (IN) | payer MEDICARE, MEDICAID ==
[2017-09-09 04:25] LABS: VENOUS BLOOD GAS BASE EXCESS 1.5 mmol/L (0.0-2.0); VENOUS BLOOD GAS PO2 46 mm/Hg (30-55); VENOUS BLOOD PH 7.38 (7.32-7.43)
[2017-09-09] MEDS ORDERED: Cefepime IV 2 gm in NS 2 GM/100 ML BAG IVPB STA (04:25)
[2017-09-09] MEDS ORDERED: Vancomycin 1gm in NS 250ml 1 GM/250 ML BAG IVPB STA (04:27)
[2017-09-09] MEDS ORDERED: Aztreonam 1 Gm in NS 100mL 100 ML IVPB STA (04:39)
--- NOTE | 2017-09-09 04:43 | ED PDOC ---
Arrival/HPI - General Chief Complaint: Respiratory Distress Time Seen by Provider: 09/09/17 04:01 Historian: Mcc - History of Present Illness Narrative History of Present Illness (Text): 09/09/17 04:07 76 year old male, with past medical history of Alzheimer's, CHF, and hypertension, presents to the Emergency department via EMS from [facility] complaining of shortness of breath and coughing emesis prior to arrival. No associated chest pain. HPI and ROS limited due to patient's worsening state of respiratory distress. Patient presents to the Emergency department for medical evaluation. Time/Duration: Prior to Arrival Symptom Onset: Gradual Symptom Course: Unchanged Activities at Onset: Light Context: Other (Mcc) Past Medical History - Provider Review Nursing Documentation Reviewed: Yes - Infectious Disease Hx of Infectious Diseases: None - Cardiac Hx Congestive Heart Failure: Yes Hx Hypertension: Yes - Pulmonary Hx Pneumonia: Yes - Neurological Hx Alzheimer's Disease: Yes Hx Dementia: Yes - HEENT Hx HEENT Disorder: Yes (WEARS RX GLASSES) - Renal Hx Renal Failure: Yes (congenital) - Endocrine/Metabolic Hx Diabetes Mellitus Type 2: Yes Hx Hypothyroidism: Yes - Hematological/Oncological Hx Anemia: Yes Hx Cancer: Yes (prostate) - Integumentary Hx Dermatological Disorder: Yes (JAUNDICED SKIN 416) - Musculoskeletal/Rheumatological Hx Musculoskeletal Disorders: No - Gastrointestinal Hx Gastroesophageal Reflux: Yes Other/Comment: acute cholecystitis/tube in gallbladder - Genitourinary/Gynecological Hx Genitourinary Disorders: Yes Hx Incontinence: Yes Hx Prostate Cancer: Yes Hx Prostate Problems: Yes (PROSTATE CA WITH RADIATION-SEEDING) Other/Comment: esbl/uti - Psychiatric Hx Depression: Yes Hx Substance Use: No - Surgical History Other/Comment: BOWEL OBSTRUCTION-1996 - Anesthesia Hx Anesthesia Reactions: No Hx Malignant Hyperthermia: No - Suicidal Assessment Feels Threatened In Home Enviroment: No Family/Social History - Physician Review Nursing Documentation Reviewed: Yes Family/Social History: No Known Family HX Smoking Status: Former Smoker Hx Alcohol Use: No Hx Substance Use: No Allergies/Home Meds Allergies/Adverse Reactions: Allergies ceftriaxone sodium [From Rocephin] Allergy (Verified 04/12/17 06:37) RASH Home Medications: Home Meds Medication Instructions Recorded Confirmed Aspirin [Adult Low Dose Aspirin EC] 81 mg PO DAILY 08/21/16 04/12/17 Donepezil [Aricept] 10 mg PO HS 08/21/16 04/12/17 Ferrous Sulfate [Feosol] 324 mg PO DAILY 08/21/16 04/12/17 Levothyroxine [Synthroid] 75 mcg PO DAILY 08/21/16 04/12/17 Magnesium Hydroxide [Milk Of 30 ml PO PRN PRN 08/21/16 04/12/17 Magnesia] Metoprolol Tartrate [Lopressor] 12.5 mg PO DAILY 08/21/16 04/12/17 Midodrine [Proamatine] 10 mg PO TID 08/21/16 04/12/17 Ondansetron HCl [Zofran] 4 mg PO Q6H PRN 08/21/16 04/12/17 Pantoprazole [Protonix EC Tab] 40 mg PO DAILY 08/21/16 04/12/17 Polyethylene Glycol 3350 [Miralax] 17 gm PO DAILY 08/21/16 04/12/17 Acetaminophen [Pain Reliever] 650 mg PO Q4 PRN 10/19/16 04/12/17 Review of Systems - Review of Systems Systems not reviewed;Unavailable: Respiratory Distress Respiratory: SOB, Cough Cardiovascular: absent: Chest Pain Physical Exam Vital Signs Reviewed: Yes Vital Signs Temp Pulse Resp BP Pulse Ox 09/09/17 05:58 99.5 F 09/09/17 05:51 102 H 18 103/71 95 09/09/17 04:52 22 89 L 09/09/17 04:19 100.8 F H 108 H 22 125/82 94 L 09/09/17 04:18 100.8 F H Temperature: Febrile Blood Pressure: Normal Pulse: Regular Respiratory Rate: Normal Appearance: Positive for: Well-Appearing, Non-Toxic, Comfortable Pain Distress: None Mental Status: Positive for: Alert and Oriented X 3 Finger Stick Blood Glucose: 173 - Systems Exam Head: Present: Atraumatic, Normocephalic Pupils: Present: PERRL Extroacular Muscles: Present: EOMI Conjunctiva: Present: Normal Mouth: Present: Moist Mucous Membranes Neck: Present: Normal Range of Motion Respiratory/Chest: Present: Respiratory Distress, Rhonchi (Bilaterally) Cardiovascular: Present: Regular Rate and Rhythm, Normal S1, S2. No: Murmurs Abdomen: No: Tenderness, Distention, Peritoneal Signs Back: Present: Normal Inspection Upper Extremity: Present: Normal Inspection. No: Cyanosis, Edema Lower Extremity: Present: Normal Inspection. No: Edema Neurological: Present: GCS=15, CN II-XII Intact Skin: Present: Warm, Dry, Normal Color. No: Rashes Psychiatric: Present: Alert, Oriented x 3, Normal Insight, Normal Concentration Medical Decision Making ED Course and Treatment: 09/09/17 04:07 Impression: 76 year old male presents to the Emergency department for worsening shortness of breath and coughing emesis. Plan: -- VBG -- EKG -- Labs -- Chest X-Ray -- Tylenol -- Blood Culture -- Urine Culture -- Urinalysis -- Reassess and disposition Prior Visits: Notes and results from previous visits were reviewed. Progress Notes: 09/09/17 04:15 Chest X-Ray reviewed, shows pneumonia at right lower lobe. 09/09/17 05:[address] Nicholson, who is aware and agrees with Emergency department plan to admit patient to Telemetry under his service. - Lab Interpretations Lab Results: 09/09/17 04:05 09/09/17 04:05 Lab Results 09/09/17 04:10: POC Glucose (mg/dL) 175 H 09/09/17 04:05: NT-Pro-B Natriuret Pep 387 09/09/17 04:05: Sodium 139, Chloride 100, Potassium 4.9, Carbon Dioxide 26, Anion Gap 18, BUN 22 H, Creatinine 0.9, Est GFR ( Amer) > 60, Est GFR ( Non-Af Amer) > 60, Random Glucose 175 H, Calcium 9.4, Phosphorus 2.6, Magnesium 1.6 L, Total Bilirubin 2.0 H, AST 28, ALT 32, Alkaline Phosphatase 76, Troponin I < 0.01, Total Protein 6.2, Albumin 4.2, Globulin 2.0, Albumin/Globulin Ratio 2.2 H 09/09/17 04:05: pO2 46, VBG pH 7.38, VBG pCO2 46.0, VBG HCO3 27.2, VBG Total CO2 28.6 H, VBG O2 Sat (Calc) 81.5 H, VBG Base Excess 1.5, VBG Potassium 4.8, Sodium 135.0, Chloride 102.0, Glucose 195 H, Lactate 3.0 H, FiO2 21.0, Venous Blood Potassium 4.8 09/09/17 04:05: PT 12.6 H, INR 1.10 H, APTT 28.1 09/09/17 04:05: WBC 14.8 H D, RBC 5.06, Hgb 15.8 D, Hct 44.3, MCV 87.5 D, MCH 31.2, MCHC 35.7, RDW 15.2 H, Plt Count 136, MPV 10.3, Gran % 94.6 H, Lymph % ( Auto) 2.3 L, [place] % (Auto) 2.6, Eos % (Auto) 0.5 L, Baso % (Auto) 0.0, Gran # 14.04 H, Lymph # (Auto) 0.3 L, [place] # (Auto) 0.4, Eos # (Auto) 0.1, Baso # (Auto ) 0.00, Neutrophils % (Manual) Pending, Lymphocytes % (Manual) Pending, Monocytes % (Manual) Pending - RAD Interpretation Radiology Orders: 09/09/17 04:07 CHEST PORTABLE [RAD] Stat [employer]: ED Physician - EKG Interpretation EKG Interpretation (Text): 09/09/17 06:05 sinus tachycardia 108 nssts changes - Medication Orders Current Medication Orders: Acetaminophen (Tylenol 325 Mg Supp) 975 mg KS ONCE PRN PRN Reason: Fever >100.4 F Last Admin: 09/09/17 04:18 Dose: 975 mg MAR Pain/Vitals Document 09/09/17 04:18 IT (Rec: 09/09/17 04:19 IT [id number] Vitals Temperature (97.6 F-99.6 F) 100.8 F Temperature Source Rectal Acetaminophen (Tylenol 325mg Tab) 650 mg PO Q4H PRN PRN Reason: Fever >100.5 F Albuterol/Ipratropium (Duoneb 3 Mg/0.5 Mg (3 Ml) Ud) 3 ml IH Q4H PRN PRN Reason: Shortness of Breath Sodium Chloride (Sodium Chloride 0.9%) 1,000 mls @ 80 mls/hr IV .[id number] YOLANDA Magnesium Sulfate/Dextrose (Magnesium Sulfate 1 Gm/100 Ml D5w) 1 gm in 100 mls @ 100 mls/hr IVPB ONCE ONE Stop: 09/09/17 06:22 Last Admin: 09/09/17 05:47 Dose: 100 mls/hr eMAR Start Stop Document 09/09/17 05:47 IT (Rec: 09/09/17 05:47 IT [id number]) Intravenous Solution Start Date 09/09/17 Start Time 05:47 End Date 09/09/17 End time 06:47 Total Infusion Time 60 Sodium Chloride (Sodium Chloride 0.9%) 1,000 mls @ 100 mls/hr IV .Q10H STA Stop: 09/09/17 15:30 Last Admin: 09/09/17 05:47 Dose: 100 mls/hr eMAR Start Stop Document 09/09/17 05:47 IT (Rec: 09/09/17 05:47 IT [id number] Intravenous Solution Start Date 09/09/17 Start Time 05:47 Discontinued Medications Vancomycin HCl (Vancomycin 1gm) 1 gm in 250 mls @ 167 mls/hr IVPB STAT STA PRN Reason: Protocol Stop: 09/09/17 05:56 Last Admin: 09/09/17 05:47 Dose: 167 mls/hr eMAR Start Stop Document 09/09/17 05:47 IT (Rec: 09/09/17 05:47 IT [id number] Intravenous Solution Start Date 09/09/17 Start Time 05:47 Aztreonam (Azactam 1 Gm) 100 mls @ 100 mls/hr IVPB STAT STA PRN Reason: Protocol Stop: 09/09/17 05:38 Last Admin: 09/09/17 05:01 Dose: 100 mls/hr eMAR Start Stop Document 09/09/17 05:01 IT (Rec: 09/09/17 05:01 IT [id number] Intravenous Solution Start Date 09/09/17 Start Time 05:01 End Date 09/09/17 End time 06:01 Total Infusion Time 60 Pantoprazole Sodium (Protonix Inj) 40 mg IVP ONCE STA Stop: 09/09/17 04:32 Last Admin: 09/09/17 05:01 Dose: 40 mg IVP Administration Document 09/09/17 05:01 IT (Rec: 09/09/17 05:01 IT [id number] Charges for Administration # of IVP Administrations 1 - Scribe Statement The provider has reviewed the documentation as recorded by the Scribe Kathy Shelton. All medical record entries made by the Hattieibe were at my direction and personally dictated by me. I have reviewed the chart and agree that the record accurately reflects my personal performance of the history, physical exam, medical decision making, and the department course for this patient. I have also personally directed, reviewed, and agree with the discharge instructions and disposition. Disposition/Present on Arrival - Present on Arrival Any Indicators Present on Arrival: No History of DVT/PE: No History of Uncontrolled Diabetes: No Urinary Catheter: Yes History of Decub. Ulcer: No History Surgical Site Infection Following: None - Disposition Have Diagnosis and Disposition been Completed?: Yes Diagnosis: Gastrointestinal hemorrhage, Pneumonia Disposition: HOSPITALIZED Disposition Time: 05:30 Condition: GOOD
[2017-09-09 04:45] LABS: EOS # 0.1 (0.0-0.7); EOS % 0.5 % (1.5-5.0); GRAN # 14.04 (1.4-6.5); GRAN % 94.6 % (50.0-68.0); LYMPH # 0.3 (1.2-3.4); LYMPH % 2.3 % (22.0-35.0); MEAN CORPUSCULAR HEMOGLOBIN 31.2 pg (25.0-35.0); MEAN CORPUSCULAR HGB CONC 35.7 g/dl (31.0-37.0); MEAN PLATELET VOLUME 10.3 fl (7.0-11.0); MONO # 0.4 (0.1-0.6); MONO % 2.6 % (1.0-6.0); PLATELET COUNT 136 10^3/uL (120.0-450.0); RBC 5.06 10^6/uL (3.5-6.1); RED CELL DISTRIBUTION WIDTH 15.2 % (11.5-14.5); WHITE BLOOD COUNT 14.8 10^3/ul (4.5-11.0)
[2017-09-09 04:46] LABS: HEMOGLOBIN 15.8 g/dL (14.0-18.0); INR 1.1 (0.93-1.08); MEAN CELL VOLUME 87.5 fl (80.0-105.0); PROTHROMBIN TIME 12.6 SECONDS (9.4-12.5)
[2017-09-09 04:47] LABS: PARTIAL THROMBOPLASTIN TIME 28.1 Seconds (25.1-36.5)
[2017-09-09 05:06] LABS: ALB/GLOB RATIO 2.2 (1.1-1.8); ALBUMIN 4.2 g/dL (3.0-4.8); CALCIUM 9.4 mg/dL (8.4-10.5); GFR AFRICAN-AMERICAN > 60; GFR NON-AFRICAN AMERICAN > 60
[2017-09-09 05:16] LABS: TROPONIN I < 0.01 ng/mL
[2017-09-09 05:21] LABS: ALT/SGPT 32 U/L (7-56); AST/SGOT 28 U/L (17-59); BLOOD UREA NITROGEN 22 mg/dL (7-21)
[2017-09-09] MEDS ORDERED: Magnesium Sulfate 1 gm in D5W 1 GM/100 ML BAG IVPB ONE (05:23)
[2017-09-09] MEDS ORDERED: Sodium Chloride 0.9% 1,000 ML IV STA (05:31)
[2017-09-09] MEDS ORDERED: Albuterol-Ipratrop 3 mg / 0.5 (3 ml) UD IH PRN (05:31)
[2017-09-09] MEDS: Sodium Chloride 0.9% 1,000 ML IV SCH ×2 (06:11→18:41)
[2017-09-09 06:23] LABS: BAND 9 % (0-2); LYMPHOCYTE 1 % (22.0-35.0); MONOCYTE 1 % (1.0-6.0); NEUTROPHIL 88 % (50.0-70.0); PLATELET ESTIMATE NORMAL (NORMAL)
--- NOTE | 2017-09-09 07:52 | CP.PCM.CON ---
<Rogelio Cast - Last Filed: 09/09/17 09:09> History of Present Illness - History of Present Illness History of Present Illness: PGY5 GI Fellow Consult Note Patient is a 76yo male with PMHx significant for Alzheimer's dementia, hemolytic anemia with myelodysplastic syndrome on prior bone marrow biopsy, prostate cancer s/p brachytherapy who presented from senior living for vomiting and shortness of breath. The patient's is at bedside but unable to provide any additional history. The patient had been nauseated and vomited multiple times with one report of coffee ground emesis per NH and thus was transferred to the ED for evaluation. On arrival he was noted to be febrile (100.8F), tachycardic and noted to have suspected RLL pneumonia on CXR. The patient denies any complaints presently and has not had any episodes of vomiting since arrival. No evidence of rectal bleeding or melena. 12 system ROS limited given dementia. PMHx: See HPI, also SBO requiring surgical intervention PSHx: Unclear abdominal surgery when patient had SBO - no record of this in EMR FHx: Mother - ovarian cancer, colon cancer (@85yo); Father - Aortic aneurysm Social: Former cigar/pipe smoker, quit 30 years ago, no EtOH or illicit drug use Endo: EGD/Colonoscopy in June 2015 - EGD with body erosions/gastritis; Colonoscopy - diverticulosis and one tubular adenoma removed Past Patient History - Infectious Disease Hx of Infectious Diseases: None - Past Social History Smoking Status: Former Smoker - CARDIAC Hx Congestive Heart Failure: Yes Hx Hypertension: Yes - PULMONARY Hx Pneumonia: Yes - NEUROLOGICAL Hx Alzheimer's Disease: Yes Hx Dementia: Yes - HEENT Hx HEENT Problems: Yes (WEARS RX GLASSES) - RENAL Hx Renal Failure: Yes (congenital) - ENDOCRINE/METABOLIC Hx Diabetes Mellitus Type 2: Yes Hx Hypothyroidism: Yes - HEMATOLOGICAL/ONCOLOGICAL Hx Anemia: Yes Hx Cancer: Yes (prostate) - INTEGUMENTARY Hx Dermatological Problems: Yes (JAUNDICED SKIN 16) - MUSCULOSKELETAL/RHEUMATOLOGICAL Hx Musculoskeletal Disorders: No - GASTROINTESTINAL Hx Gastroesophageal Reflux: Yes Other/Comment: acute cholecystitis/tube in gallbladder - GENITOURINARY/GYNECOLOGICAL Hx Genitourinary Disorders: Yes Hx Incontinence: Yes Hx Prostate Cancer: Yes Hx Prostate Problems: Yes (PROSTATE CA WITH RADIATION-SEEDING) Other/Comment: esbl/uti - PSYCHIATRIC Hx Depression: Yes Hx Substance Use: No - SURGICAL HISTORY Other/Comment: BOWEL OBSTRUCTION-1995 - ANESTHESIA Hx Anesthesia Reactions: No Hx Malignant Hyperthermia: No Meds Allergies/Adverse Reactions: Allergies Allergy/AdvReac Type Severity Reaction Status Date / Time ceftriaxone sodium Allergy RASH Verified 04/12/17 06:37 [From Rocephin] - Medications Medications: Current Medications Acetaminophen (Tylenol 325 Mg Supp) 975 mg AL ONCE PRN PRN Reason: Fever >100.4 F Last Admin: 09/09/17 04:18 Dose: 975 mg Acetaminophen (Tylenol 325mg Tab) 650 mg PO Q4H PRN PRN Reason: Fever >100.5 F Albuterol/Ipratropium (Duoneb 3 Mg/0.5 Mg (3 Ml) Ud) 3 ml IH Q4H PRN PRN Reason: Shortness of Breath Sodium Chloride (Sodium Chloride 0.9%) 1,000 mls @ 80 mls/hr IV .[id number] YOLANDA Last Admin: 09/09/17 06:11 Dose: Not Given Sodium Chloride (Sodium Chloride 0.9%) 1,000 mls @ 100 mls/hr IV .Q10H STA Stop: 09/09/17 15:30 Last Admin: 09/09/17 05:47 Dose: 100 mls/hr Physical Exam - Constitutional Appears: Non-toxic, No Acute Distress, Confused - Eye Exam Eye Exam: EOMI, PERRL - ENT Exam ENT Exam: Mucous Membranes Moist - Respiratory Exam Respiratory Exam: Rales. absent: Clear to Auscultation Bilateral, Rhonchi, Wheezes - Cardiovascular Exam Cardiovascular Exam: RRR, +S1, +S2 - GI/Abdominal Exam GI & Abdominal Exam: Normal Bowel Sounds, Soft. absent: Distended, Firm, Guarding, Organomegaly, Rigid, Tenderness - Extremities Exam Additional comments: 1+ B/L LE edema - Neurological Exam Neurological exam: Altered - Psychiatric Exam Psychiatric exam: Normal Affect, Normal Mood - Skin Skin Exam: Dry, Warm Results - Vital Signs Recent Vital Signs: Last Vital Signs Temp 99.5 F 09/09/17 05:58 Pulse 102 H 09/09/17 05:51 Resp 18 09/09/17 05:51 BP 103/71 09/09/17 05:51 Pulse Ox 95 09/09/17 05:51 - Labs Result Diagrams: 09/09/17 04:05 09/09/17 04:05 Labs: Laboratory Results - last 24 hr 09/09/17 05:35 Blood Type O POSITIVE Antibody Screen Negative BBK History Checked Patient has bt Assessment & Plan - Assessment and Plan (Free Text) Assessment: Patient is a 76yo male with PMHx significant for Alzheimer's dementia, hemolytic anemia with myelodysplastic syndrome on prior bone marrow biopsy, prostate cancer s/p brachytherapy who presented from senior living for vomiting and shortness of breath. -Pneumonia - suspect aspiration -Nausea/vomiting -Myelodysplastic syndrome/Autoimmune hemolytic anemia -Constipation -H/O acalculous cholecystitis/cholangitis s/p PTC insertion and removal -Dementia Plan: -Nausea and vomiting seems to have resolved; can use zofran PRN for ongoing symptoms -Treatment for suspected aspiration pneumonia per primary service and pulmonology -No plan for endoscopic evaluation at this time -Can use short term PPI - Protonix 40mg PO QD for 4-6 weeks -Recent CT from earlier this month - significant fecal burden - recommend daily bowel regimen with Miralax 17g PO QD -Indirect hyperbilirubinemia likely a result of autoimmune hemolytic anemia - Date & Time Date: 09/09/17 Time: 06:50 <Joel Miller - Last Filed: 09/09/17 09:46> Meds - Medications Medications: Current Medications Acetaminophen (Tylenol 325 Mg Supp) 975 mg AL ONCE PRN PRN Reason: Fever >100.4 F Last Admin: 09/09/17 04:18 Dose: 975 mg Acetaminophen (Tylenol 325mg Tab) 650 mg PO Q4H PRN PRN Reason: Fever >100.5 F Sodium Chloride (Sodium Chloride 0.9%) 1,000 mls @ 80 mls/hr IV .[id number] YOLANDA Last Admin: 09/09/17 06:11 Dose: Not Given Sodium Chloride (Sodium Chloride 0.9%) 1,000 mls @ 100 mls/hr IV .Q10H STA Stop: 09/09/17 15:30 Last Admin: 09/09/17 05:47 Dose: 100 mls/hr Insulin Human Regular (Humulin R Med) 0 units SC ACHS YOLANDA PRN Reason: Protocol Levalbuterol HCl (Xopenex) 1.25 mg IH [id number] YOLANDA Last Admin: 09/09/17 08:10 Dose: 1.25 mg Pantoprazole Sodium (Protonix Ec Tab) 40 mg PO 0600 [facility] Stop: 10/08/17 06:01 Polyethylene Glycol (Miralax) 17 gm PO DAILY [facility] Results - Vital Signs Recent Vital Signs: Last Vital Signs Temp 99.5 F 09/09/17 05:58 Pulse 102 H 09/09/17 08:13 Resp 18 09/09/17 05:51 BP 103/71 09/09/17 05:51 Pulse Ox 95 09/09/17 05:51 - Labs Result Diagrams: 09/09/17 04:05 09/09/17 04:05 Labs: Laboratory Results - last 24 hr 09/09/17 09/09/17 09/09/17 05:35 07:30 09:20 pO2 32 VBG pH 7.33 VBG pCO2 52.0 VBG HCO3 27.4 VBG Total CO2 29.0 H VBG O2 Sat (Calc) 61.1 VBG Base Excess 0.6 VBG Potassium 5.0 Sodium 137.0 Chloride 102.0 Glucose 174 H Lactate 3.8 H FiO2 21.0 Direct Bilirubin 0.4 Venous Blood Potassium 5.0 Blood Type O POSITIVE Antibody Screen Negative BBK History Checked Patient has bt Attending/Attestation - Attestation I have personally seen and examined this patient.: Yes I have fully participated in the care of the patient.: Yes I have reviewed all pertinent clinical information: Yes Notes (Text): 09/09/17 09:44 76 year old male with h/o dementia, hemolytic anemia, cholecystitis s/p PTC ( Removed), cholangitis s/p prior ERCP a/w vomiting. No further vomiting here. Recommend supportive measures. No signs of bleeding. He has constipation and recent fecal impaction. Would recommend bowel regimen. Advance diet as tolerated. Treatment for PNA with abx. Will sign off for now.
[2017-09-09] MEDS: Levalbuterol 1.25 MG/3 ML Inhal Soln UD IH SCH ×3 (08:10→20:42)
--- NOTE | 2017-09-09 08:22 | RAD ---
HISTORY: Sepsis Patient COMPARISON: 04/12/2017 FINDINGS: LUNGS: Ill-defined opacity at right lung base suspicious for pneumonia. Probable subsegmental atelectasis at left base. PLEURA: No significant pleural effusion identified, no pneumothorax apparent. CARDIOVASCULAR: Normal. OSSEOUS STRUCTURES: No significant abnormalities. VISUALIZED UPPER ABDOMEN: Normal. OTHER FINDINGS: None. IMPRESSION: Suspect right lower lobe pneumonia. Followup advised.
[2017-09-09 09:37] LABS: VENOUS BLOOD GAS BASE EXCESS 0.6 mmol/L (0.0-2.0); VENOUS BLOOD GAS PO2 32 mm/Hg (30-55); VENOUS BLOOD PH 7.33 (7.32-7.43)
[2017-09-09] MEDS: POLYETHYLENE GLYCOL 3350 17 GM/Dose PACKET PO SCH (10:57)
--- NOTE | 2017-09-09 11:23 | CARD ---
APPROVED REPORT EKG Measurement Heart [id number] <Conclusion> Sinus tachycardia with premature supraventricular complexes Nonspecific ST and T wave abnormality Abnormal ECG
[2017-09-09] MEDS: Insulin Reg-MEDIUM-Coverage SC SCH ×3 (12:42→21:47)
[2017-09-09 13:39] LABS: VENOUS BLOOD GAS BASE EXCESS 2.6 mmol/L (0.0-2.0); VENOUS BLOOD GAS PO2 50 mm/Hg (30-55); VENOUS BLOOD PH 7.43 (7.32-7.43)
[2017-09-09 14:09] VITALS: BMI 26.5
--- NOTE | 2017-09-09 15:58 | CON ---
DATE: 09/09/2017 PULMONARY CONSULTATION REASON FOR CONSULTATION: Pneumonia. REFERRING PHYSICIAN: Sean Nicholson DO HISTORY OF PRESENT ILLNESS: History is obtained via extensive discussion with the emergency room nurse. I have also discussed the case with the at bedside - at length. I have also reviewed the chart at length. The patient is not an adequate historian at this point in time. The patient is a chronically ill 76-year-old male, residential resident, with past medical history significant for Alzheimer's dementia, congestive heart failure, coronary artery disease, hypertension, ascending cholangitis in the past, acute cholecystitis in the past, who presents to [facility] - transferred from [facility] - with shortness of breath and cough - following multiple episodes of emesis. Apparently, the patient started to experience nausea and vomiting at the residential. Soon after the emesis, the patient began to experience short of breath with cough. Pulse oximetry was also noted to be low. He was then transferred to [facility] for additional evaluation and treatment. I did examine the patient this morning. He is not short of breath at rest. There is some cough noted by the emergency room nurse. There is no history of significant sputum production. There is no history of chest pain, coughing up of blood, or chest pain - made worse with deep respirations. The patient did have low grade fevers in the emergency room. No history of chills or infectious exposure. No history of night sweats, weight loss or appetite change prior to the above events. No history of calf pains. No history of syncope or diaphoresis. No history of recent travel or trauma. REVIEW OF SYSTEMS: No acute urinary symptoms. No new neurologic or musculoskeletal complaints. Rest of the review of systems is negative. ALLERGIES: CEFTRIAXONE. SOCIAL HISTORY: Positive for tobacco and negative for alcohol. FAMILY HISTORY: No inheritable diseases. HOME MEDICATIONS: Include MiraLax, Zofran, Lopressor, Synthroid, Feosol, Aricept, acetaminophen. PHYSICAL EXAMINATION GENERAL: The patient is not short of breath at rest. He is not using accessory muscles for breathing. VITAL SIGNS: Temperature is 99.5, pulse of 102, respirations 18, blood pressure 103/71. Oxygen saturation on nasal cannula is 96%. HEENT: Normocephalic, atraumatic. No JVD. CARDIOVASCULAR: Positive S1, S2. No S3 gallop. LUNGS: Crackles noted at the right base. Mild bilateral rhonchi. No wheezing. EXTREMITIES: Mild edema. No cyanosis, no clubbing. Calves are nontender to palpation. GI: Abdomen is soft, nontender and nondistended. Bowel sounds are positive. SKIN: No acute rash. NEUROLOGIC: Limited at the present time. PERTINENT LABORATORY DATA: Chest x-ray was done in the emergency room and checked. There is a right lower lobe infiltrate present. CBC: White count 14.8K, hemoglobin 15.8, hematocrit 44.3, platelets of 136,000. Complete metabolic profile: BUN 22, glucose 175, phosphorus 1.6, bilirubin 2. Rest of the metabolic profile is within normal limits. IMPRESSION: 1. Aspiration pneumonia - right lower lobe. 2. Sepsis syndrome. 3. Status post multiple episodes of nausea and vomiting. 4. Mild bronchospasm. 5. Coronary artery disease. PLAN: Again, I did discuss the case with the emergency room nurse at length. I have also discussed the case with the at length. I have also reviewed the chart at length. The patient presents to [facility] - transferred from [facility] - with main complaints of shortness of breath and cough - following multiple episodes of emesis. In the emergency room, the patient was also noted to have a low pulse oximetry. He was then placed on BiPAP. I did examine the patient this morning. He is not short of breath at rest. He is saturating quite well on the BiPAP. I did change him to nasal cannula at the bedside - with an oxygen saturation of 96%. I will continue with the nasal cannula for now. I did review the chest x-ray as above. There is a right lower lobe infiltrate noted. Given the above history, the picture is consistent with aspiration pneumonia. I will certainly order aspiration precautions for now. Infectious Disease consultation with Dr. Goode has been ordered - for antibiotic usage. Gastroenterology consultation has also been ordered. On physical exam, the patient is in mild bronchospasm. I will start the patient on Xopenex nebulizer treatments (given the mild tachycardia). Again, the patient is saturating at 96% on nasal cannula. The patient certainly appears clinically improved - compared to his initial status. Additional pulmonary intervention will be based on the clinical status of the patient. I will discuss the above with Dr. Nicholson in the next few moments. Thank you very much for this pulmonary consultation. Medardo Whittaker MD [email or web address]
[2017-09-09] MEDS: levoFLOXacin 500 MG TAB PO SCH (20:25)
[2017-09-09] MEDS: Vancomycin 1gm in NS 250ml 1 GM/250 ML BAG IVPB SCH (20:26)
[2017-09-09] MEDS: Aztreonam 1 Gm in NS 100mL 100 ML IVPB SCH ×2 (22:01→22:02)
[2017-09-10] MEDS: Pantoprazole 40 mg EC Tab PO SCH (05:00)
[2017-09-10] MEDS: Aztreonam 1 Gm in NS 100mL 100 ML IVPB SCH ×3 (05:00→22:43)
[2017-09-10 06:25] LABS: MEAN CELL VOLUME 88.8 fl (80.0-105.0); MEAN CORPUSCULAR HEMOGLOBIN 29.9 pg (25.0-35.0); MEAN CORPUSCULAR HGB CONC 33.7 g/dl (31.0-37.0); MEAN PLATELET VOLUME 9.3 fl (7.0-11.0); RBC 3.84 10^6/uL (3.5-6.1); RED CELL DISTRIBUTION WIDTH 15.2 % (11.5-14.5); WHITE BLOOD COUNT 8.4 10^3/ul (4.5-11.0)
[2017-09-10 06:30] LABS: HEMOGLOBIN 11.5 g/dL (14.0-18.0)
[2017-09-10 06:53] LABS: ALB/GLOB RATIO 1.3 (1.1-1.8); ALBUMIN 2.8 g/dL (3.0-4.8); ALT/SGPT 29 U/L (7-56); AST/SGOT 15 U/L (17-59); BLOOD UREA NITROGEN 23 mg/dL (7-21); CALCIUM 8.5 mg/dL (8.4-10.5); GFR AFRICAN-AMERICAN > 60; GFR NON-AFRICAN AMERICAN > 60
--- NOTE | 2017-09-10 07:21 | HP ---
HISTORY OF PRESENT ILLNESS: I spoke to the nurse last night about Max who was not doing well in the residential at [facility] and I sent him to the emergency room. He is a 76-year-old white male I have known for over 20 years. He has had history of Alzheimer's, CHF, hypertension. He has had suprapubic catheters. He has had catheter in his gallbladder. He has severe CAD that he was recommended to have open heart surgery or have triple bypass surgery, but the family was not interested. He was supposed to have a cath but he would not lay still. He could not have his gallbladder removed. He had a stent in the gallbladder for a while. Basically, he comes short of breath and coughing, respiratory distress, hypertension, congestive heart failure, has had pneumonias, dementia. He has congenital renal issues, hypothyroidism, diabetes. He has prostate cancer history, anemia. He has been jaundiced before. He has GERD, acute cholecystitis with tube in the gallbladder. He is incontinent. He has prostate cancer with radiation with seeds, ESBL, and UTI history. He has been depressed. He had a bowel obstruction in 1995. FAMILY HISTORY: Hypertension in the family. SOCIAL HISTORY: Former smoker. No alcohol. No drugs. ALLERGIES: ROCEPHIN. MEDICATIONS: He is on aspirin, Aricept, Feosol, Synthroid, Milk of Magnesia, Lopressor, ProAmatine, Zofran, Protonix, and pain reliever. REVIEW OF SYSTEMS: He is in little bit of respiratory distress, coughing, was short of breath with cough. No chest pain or palpitations. No acute vision or hearing changes. He is very soft to talk to him. OBJECTIVE: VITAL SIGNS: He has 100.8 temperature, 108 pulse, 22 respiratory rate, 125/82 blood pressure, 89% O2 sat. GENERAL: He is well appearing, on oxygen. He is alert and oriented x1. Blood sugar is about 173. HEENT: His head is atraumatic, normocephalic. Extraocular muscles are intact. Pupils are equal and reactive to light. Throat is moist. NECK: Supple. HEART: Regular rate. Normal S1, S2. LUNGS: Decreased breath sounds. Rhonchi bilaterally. He is coughing, congestion changes with cough, but does not clear. ABDOMEN: Soft, nontender. Positive bowel sounds. No guarding, rebound, or CVA tenderness. EXTREMITIES: No edema. NEUROLOGIC: GCS is 15. Cranial nerves II through XII grossly intact. Alert and oriented x2. SKIN: Warm and dry. No apparent rashes or ulcers. LABORATORY DATA: He had multiple chest x-rays showing a right pneumonia. He has 14.8 white count, 15.8 hemoglobin, 44.3 hematocrit with 136 platelets. He has 1.1 INR. He has 3 lactate that is high. He has 139 sodium, potassium 4.9. BUN 22, creatinine 0.9. GFR is greater than 60. Sugar was 175. Calcium is 9.4, phosphorous is 2.6, magnesium 1.6. Total bili is 2, AST is 20, ALT is 32, alkaline phosphatase 76. Troponin I is less than 0.01. BNP is 387, total protein is 6.2. I discussed at length with the . She would like the target trimmer to see him. He has had Infectious Disease, GI, and Pulmonary. She is at bedside. She is very worried about her and she wanted him to be thoroughly examined and checked up. He is here with pneumonia. I will call in the doctors that she is worried about and we will see about getting him better and getting back to residential as soon as we can. He is on IV antibiotics. The patient is here for right pneumonia, shortness of breath. Sean Nicholson DO MTDD
--- NOTE | 2017-09-10 07:29 | CON ---
DATE: 09/09/2017 LOCATION: The patient seen in room 267, bed 2, earlier today. CHIEF COMPLAINT: Weakness and fever times several days. HISTORY OF PRESENT ILLNESS: This is a 76-year-old male with Alzheimer's dementia, hemolytic anemia, prostate cancer, depression, acute kidney injury, history of Haylee fungemia, history of bowel obstruction, depression, ESBL E. coli bacteremia, Klebsiella, urinary tract infection, who is admitted with diagnosis of pneumonia and gastrointestinal bleeding. Infectious Disease consultation requested. REVIEW OF SYSTEMS: Obtained from the patient's family. ALLERGIES: THE PATIENT IS ALLERGIC TO CEFTRIAXONE, HAD A QUESTIONABLE RASH TO [place]OPEN[place] IN THE PAST. MEDICATIONS: At the group home reveals the patient to be on Protonix, aspirin, Lopressor, Synthroid, Aricept. PHYSICAL EXAMINATION: GENERAL: The patient is in bed appearing chronically ill. Appears much older than stated age. VITAL SIGNS: With a temperature of 98, T-max is 100.8; blood pressure is down to 86/60s, respiratory rate of 22, heart rate of 108, saturation 89%. HEENT: Unremarkable. NECK: Supple. LUNGS: Have decreased breath sounds. HEART: Normal S1 and S2. ABDOMEN: Soft, nontender. No rebound or guarding. LABORATORY DATA: Reveals a white count of 14,800, hemoglobin of 15, platelets of 136. Chemistries are noted. The patient has a BUN of 22, creatinine of 0.9. Chest x-ray is positive. ASSESSMENT AND PLAN: This is a 76-year-old male with Alzheimer's dementia, hemolytic anemia, prostate cancer, acute kidney injury, Haylee fungemia, depression, bowel obstruction, Escherichia coli bacteremia, admitted with severe sepsis. He had a right-sided aspiration health-care associated pneumonia. We will treat the patient with vancomycin, Azactam and Levaquin. Pending blood cultures, urine cultures, sputum cultures, procalcitonin, urine for Legionella antigen, initial workup results. We will follow closely with . Padilla Goode MD
[2017-09-10] MEDS: Insulin Reg-MEDIUM-Coverage SC SCH ×4 (07:30→22:43)
--- NOTE | 2017-09-10 07:41 | PN ---
DATE: 09/10/2017 PULMONARY NOTE SUBJECTIVE: The patient appears comfortable this morning. He is not short of breath at rest. PHYSICAL EXAMINATION VITAL SIGNS: Temperature is 97.8, pulse on the monitor is 88, respiratory rate 19, blood pressure 95/62. Oxygen saturation on nasal cannula is 93%-94%. HEENT: Normocephalic, atraumatic. No JVD. CARDIOVASCULAR: Positive S1, S2. No S3 gallop. LUNGS: Crackles noted at the right base. Less rhonchi. No wheezing. EXTREMITIES: Mild edema. No cyanosis, no clubbing. Calves are nontender to palpation. GI: Abdomen is soft, nontender, nondistended. Bowel sounds are positive. SKIN: No acute rash. NEUROLOGIC: Limited at the present time. IMPRESSION: 1. Aspiration pneumonia - right lower lobe. 2. Sepsis syndrome. 3. Status post multiple episodes of nausea and vomiting. 4. Mild bronchospasm. 5. Coronary artery disease. PLAN: The patient appears comfortable this morning. He is not short of breath at rest. I did discuss the case with the night nurse at length. The night nurse stated that the patient had a good night. On physical exam, there is certainly less bronchospasm noted. In addition, the alveolar-arterial gradient is also less. I will continue with the current nebulizer treatments for now. I will also continue with the aspiration precautions. I would continue with the antibiotic coverage as per Infectious Disease. Input by Dr. Goode is noted. The temperatures have now resolved. The leukocytosis has also resolved. The clinical status of the patient is certainly improved - compared to the initial presentation. I will discuss the above with Dr. Nicholson. Medardo Whittaker MD MTDD
[2017-09-10] MEDS: Levalbuterol 1.25 MG/3 ML Inhal Soln UD IH SCH ×3 (07:59→20:12)
[2017-09-10] MEDS: Vancomycin 1gm in NS 250ml 1 GM/250 ML BAG IVPB SCH ×2 (09:51→20:50)
[2017-09-10] MEDS: levoFLOXacin 500 MG TAB PO SCH ×2 (09:51→10:01)
[2017-09-10] MEDS: POLYETHYLENE GLYCOL 3350 17 GM/Dose PACKET PO SCH ×2 (09:52→10:01)
--- NOTE | 2017-09-10 13:06 | PN ---
DATE: 09/10/2017 SUBJECTIVE: I saw Max resting comfortably in bed. He is not in any distress. He was coughing and he was a little bit confused. He has a little bit of an appetite, but no chest pain or abdominal pain. We have to get him out of bed to chair. He is to get physical therapy. He is on IV antibiotics. He is on aspirin, Azactam, insulin coverage, Lasix, Levaquin p.o., MiraLAX, Protonix, IV fluids, Tylenol, vancomycin IV and Xopenex. PHYSICAL EXAMINATION: VITAL SIGNS: He has a 97.8 temperature, 95 pulse, 95/62 blood pressure, 92% O2 sat on nasal cannula. HEAD: Atraumatic, normocephalic. HEART: Regular rate. LUNGS: Decreased breath sounds, occasional congestion, changes with cough. ABDOMEN: Soft. EXTREMITIES: No edema. LABORATORY DATA: He has an 8.4 white count, it is better than when he came in, it was 14.8, it is down to 8.4. His hemoglobin dropped from 15 down to 11.5, hematocrit 34.1, platelets are 100. He has a 1.1 INR. His lactate is still elevated at 3. He has a 140 sodium, potassium 3.8, BUN 23, creatinine 0.8, GFR is greater than 60, sugar is 122, calcium is 8.5, total bilirubin is 1.9, AST is 15, ALT is 29, alkaline phosphatase is 48, total protein is 4.9. He has a report from Pulmonary and GI. He has a history of hemolytic anemia in the past, myelodysplastic syndrome, on prior bone marrow biopsy. Nausea and vomiting have resolved. So, GI is not offering any procedures and he is on IV antibiotics per Pulmonary with pulmonary toilet. We will get him out of bed to chair. We will get physical therapy involved and continue with his IV antibiotics as per Infectious Disease. He is here for pneumonia. Sean Nicholson DO
--- NOTE | 2017-09-10 20:55 | CP.PCM.PN ---
Subjective - Date & Time of Evaluation Date of Evaluation: 09/10/17 Time of Evaluation: 09:15 - Subjective Subjective: No fevers, not in distress. Objective - Vital Signs/Intake and Output Vital Signs (last 24 hours): Temp Pulse Resp BP Pulse Ox 97.8 F 95 H 19 95/62 L 93 L 09/10/17 05:57 09/10/17 05:57 09/10/17 05:57 09/10/17 05:57 09/10/17 05:57 Intake and Output: 09/10/17 09/10/17 06:59 18:59 Intake Total 1510 Output Total 400 Balance 1110 - Medications Medications: Current Medications Acetaminophen (Tylenol 325 Mg Supp) 975 mg OK ONCE PRN PRN Reason: Fever >100.4 F Last Admin: 09/09/17 04:18 Dose: 975 mg Acetaminophen (Tylenol 325mg Tab) 650 mg PO Q4H PRN PRN Reason: Fever >100.5 F Aspirin (Aspirin Chewable) 81 mg PO DAILY [facility] Last Admin: 09/09/17 10:50 Dose: 81 mg Furosemide (Lasix) 40 mg IVP DAILY [facility] Last Admin: 09/09/17 10:50 Dose: 40 mg Sodium Chloride (Sodium Chloride 0.9%) 1,000 mls @ 80 mls/hr IV .[id number] [facility] Last Admin: 09/09/17 18:41 Dose: 80 mls/hr Aztreonam (Azactam 1 Gm) 100 mls @ 100 mls/hr IVPB Q8 YOLANDA PRN Reason: Protocol Stop: 09/18/17 19:51 Last Admin: 09/10/17 05:00 Dose: 100 mls/hr Vancomycin HCl (Vancomycin 1gm) 1 gm in 250 mls @ 167 mls/hr IVPB Q12H YOLANDA PRN Reason: Protocol Stop: 09/18/17 20:01 Last Admin: 09/09/17 20:26 Dose: 167 mls/hr Insulin Human Regular (Humulin R Med) 0 units SC ACHS YOLANDA PRN Reason: Protocol Last Admin: 09/09/17 21:47 Dose: Not Given Levalbuterol HCl (Xopenex) 1.25 mg IH [id number] [facility] Last Admin: 09/10/17 07:59 Dose: 1.25 mg Levofloxacin (Levaquin) 500 mg PO DAILY [facility] PRN Reason: Protocol Stop: 09/18/17 20:01 Last Admin: 09/09/17 20:25 Dose: Not Given Pantoprazole Sodium (Protonix Ec Tab) 40 mg PO 0600 [facility] Stop: 10/08/17 06:01 Last Admin: 09/10/17 05:00 Dose: Not Given Polyethylene Glycol (Miralax) 17 gm PO DAILY [facility] Last Admin: 09/09/17 10:57 Dose: 17 gm - Labs Labs: 09/10/17 05:45 09/10/17 05:45 PT 12.6 SECONDS (9.4-12.5) H 09/09/17 04:05 INR 1.10 (0.93-1.08) H 09/09/17 04:05 APTT 28.1 Seconds (25.1-36.5) 09/09/17 04:05 - Constitutional Appears: Chronically Ill - Head Exam Head Exam: NORMAL INSPECTION - Respiratory Exam Respiratory Exam: Decreased Breath Sounds - Cardiovascular Exam Cardiovascular Exam: +S1, +S2 - GI/Abdominal Exam GI & Abdominal Exam: Soft. absent: Tenderness Assessment and Plan - Assessment and Plan (Free Text) Plan: Assessment right sided HCAP history of C. 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 coli bacteremia and sepsis probably biliary tree in origin History of Klebsiella UTI Plan continue Vancomycin, Azactam and Levaquin to complete 4-7 days of therapy (day 2 ) blood cx negative x 1 day, follow up PCT, urine Legionella Ag
[2017-09-11] MEDS: Levalbuterol 1.25 MG/3 ML Inhal Soln UD IH SCH ×4 (01:23→20:45)
[2017-09-11] MEDS: Aztreonam 1 Gm in NS 100mL 100 ML IVPB SCH ×3 (06:17→21:04)
[2017-09-11] MEDS: Pantoprazole 40 mg EC Tab PO SCH (06:17)
[2017-09-11 06:47] LABS: HEMOGLOBIN 11.2 g/dL (14.0-18.0); MEAN CELL VOLUME 87.6 fl (80.0-105.0); MEAN CORPUSCULAR HEMOGLOBIN 30.2 pg (25.0-35.0); MEAN CORPUSCULAR HGB CONC 34.5 g/dl (31.0-37.0); MEAN PLATELET VOLUME 9.8 fl (7.0-11.0); RBC 3.71 10^6/uL (3.5-6.1); RED CELL DISTRIBUTION WIDTH 14.8 % (11.5-14.5); WHITE BLOOD COUNT 5.1 10^3/ul (4.5-11.0)
[2017-09-11 07:26] LABS: ALB/GLOB RATIO 1.3 (1.1-1.8); ALBUMIN 2.9 g/dL (3.0-4.8); ALT/SGPT 30 U/L (7-56); AST/SGOT 24 U/L (17-59); BLOOD UREA NITROGEN 16 mg/dL (7-21); CALCIUM 8.3 mg/dL (8.4-10.5); GFR AFRICAN-AMERICAN > 60; GFR NON-AFRICAN AMERICAN > 60
[2017-09-11] MEDS: Insulin Reg-MEDIUM-Coverage SC SCH ×4 (08:00→22:05)
--- NOTE | 2017-09-11 08:05 | PN ---
DATE: 09/11/2017 PULMONARY NOTE SUBJECTIVE: The patient appears comfortable this morning. He is not short of breath at rest. OBJECTIVE: VITAL SIGNS (last noted in the computer): Temperature is 98, pulse 75, respirations 16, blood pressure 108/64. Oxygen saturation on nasal cannula is 97%. HEENT: Normocephalic, atraumatic. No JVD. CARDIOVASCULAR: Positive S1, S2. No S3 gallop. LUNGS: Less crackles noted at the right base. Minimal/less rhonchi. No wheezing. EXTREMITIES: Mild edema. No cyanosis, no clubbing. Calves are nontender to palpation. GI: Abdomen is soft, nontender and nondistended. Bowel sounds are positive. SKIN: No acute rash. NEUROLOGIC: Exam limited at the present time. IMPRESSION: 1. Aspiration pneumonia - right lower lobe. 2. Sepsis syndrome. 3. Status post multiple episodes of nausea and vomiting. 4. Mild bronchospasm. 5. Coronary artery disease. PLAN: The patient appears comfortable this morning. He is not short of breath at rest. I did discuss the case with the night nurse at length. Other than pulling out his IV, the patient did have a pretty good night. On physical exam, his bronchospasm continues to resolve. In addition, the alveolar arterial gradient also continues to resolve. I will continue with the current nebulizer treatments for now. I will also continue with the aspiration precautions. I would continue with the antibiotic coverage as per Infectious Disease. Input by Dr. Schroeder is noted. The temperatures have now fully resolved. The leukocytosis has also fully resolved. Clinical status of the patient is certainly improved - compared to the initial presentation. However, again, his future status/prognosis does remain guarded. I will discuss the above with Dr. Nicholson. Medardo Whittaker MD MTDD
[2017-09-11] MEDS: levoFLOXacin 500 MG TAB PO SCH (11:10)
[2017-09-11] MEDS: Vancomycin 1gm in NS 250ml 1 GM/250 ML BAG IVPB SCH (11:11)
[2017-09-11] MEDS: POLYETHYLENE GLYCOL 3350 17 GM/Dose PACKET PO SCH (11:15)
--- NOTE | 2017-09-11 12:04 | CP.PCM.PN ---
Subjective - Date & Time of Evaluation Date of Evaluation: 09/11/17 Time of Evaluation: 11:25 - Subjective Subjective: Patient is feeling better and more awake today, still with cough but slowly improving. Objective - Vital Signs/Intake and Output Vital Signs (last 24 hours): Temp Pulse Resp BP Pulse Ox 97.6 F 60 20 100/60 96 09/11/17 06:00 09/11/17 06:00 09/11/17 06:00 09/11/17 06:00 09/11/17 06:00 Intake and Output: 09/11/17 09/11/17 06:59 18:59 Intake Total 2 Balance 2 - Medications Medications: Current Medications Acetaminophen (Tylenol 325 Mg Supp) 975 mg MT ONCE PRN PRN Reason: Fever >100.4 F Last Admin: 09/09/17 04:18 Dose: 975 mg Acetaminophen (Tylenol 325mg Tab) 650 mg PO Q4H PRN PRN Reason: Fever >100.5 F Aspirin (Aspirin Chewable) 81 mg PO DAILY [facility] Last Admin: 09/10/17 10:01 Dose: Not Given Atorvastatin Calcium (Lipitor) 40 mg PO DIN [facility] Last Admin: 09/10/17 17:24 Dose: 40 mg Furosemide (Lasix) 40 mg IVP DAILY [facility] Last Admin: 09/10/17 09:50 Dose: Not Given Sodium Chloride (Sodium Chloride 0.9%) 1,000 mls @ 80 mls/hr IV .[id number] [facility] Last Admin: 09/09/17 18:41 Dose: 80 mls/hr Aztreonam (Azactam 1 Gm) 100 mls @ 100 mls/hr IVPB Q8 YOLANDA PRN Reason: Protocol Stop: 09/18/17 19:51 Last Admin: 09/11/17 06:17 Dose: 100 mls/hr Vancomycin HCl (Vancomycin 1gm) 1 gm in 250 mls @ 167 mls/hr IVPB Q12H YOLANDA PRN Reason: Protocol Stop: 09/18/17 20:01 Last Admin: 09/10/17 20:50 Dose: 167 mls/hr Insulin Human Regular (Humulin R Med) 0 units SC ACHS YOLANDA PRN Reason: Protocol Last Admin: 09/10/17 22:43 Dose: Not Given Levalbuterol HCl (Xopenex) 1.25 mg IH [id number] [facility] Last Admin: 09/11/17 07:18 Dose: 1.25 mg Levofloxacin (Levaquin) 500 mg PO DAILY [facility] PRN Reason: Protocol Stop: 09/18/17 20:01 Last Admin: 09/10/17 10:01 Dose: Not Given Pantoprazole Sodium (Protonix Ec Tab) 40 mg PO 0600 [facility] Stop: 10/08/17 06:01 Last Admin: 09/11/17 06:17 Dose: 40 mg Polyethylene Glycol (Miralax) 17 gm PO DAILY [facility] Last Admin: 09/10/17 10:01 Dose: Not Given - Labs Labs: 09/11/17 06:30 09/11/17 06:30 PT 12.6 SECONDS (9.4-12.5) H 09/09/17 04:05 INR 1.10 (0.93-1.08) H 09/09/17 04:05 APTT 28.1 Seconds (25.1-36.5) 09/09/17 04:05 - Constitutional Appears: Chronically Ill - Head Exam Head Exam: NORMAL INSPECTION - ENT Exam ENT Exam: Mucous Membranes Moist - Neck Exam Neck Exam: absent: Meningismus - Respiratory Exam Respiratory Exam: Decreased Breath Sounds - Cardiovascular Exam Cardiovascular Exam: +S1, +S2 - GI/Abdominal Exam GI & Abdominal Exam: Soft. absent: Tenderness Assessment and Plan - Assessment and Plan (Free Text) Plan: Assessment right sided HCAP, slowly improving history of C. 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 coli bacteremia and sepsis probably biliary tree in origin History of Klebsiella UTI Plan continue Vancomycin, Azactam and Levaquin to complete 4-7 days of therapy (day 3 ) blood cx negative, PCT is elevated at 4.81, urine Legionella Ag
[2017-09-11] MEDS ORDERED: Sodium Chloride 0.9% 1,000 ML IV SCH (12:33)
--- NOTE | 2017-09-11 16:26 | PN ---
DATE: 09/11/2017 SUBJECTIVE: I saw Max resting comfortably in bed. He is very alert. He is smiling, looking at me . He is on aspirin, Azactam, insulin, Lasix, Levaquin, Lipitor, MiraLax, Protonix, IV fluids, Tylenol, vancomycin, and Xopenex. PHYSICAL EXAMINATION: VITAL SIGNS: He has a 97.6 temperature, 60 pulse, 100/60 blood pressure, 20 respiratory rate, 96% O2 sat on 3 liters. GENERAL: He is very alert, looking at me, smiling. HEART: Regular rate. LUNGS: Decreased breath sounds, but clear. He has a pneumonia. ABDOMEN: Soft. EXTREMITIES: No edema. He is getting physical therapy and out of bed to chair. LABORATORY DATA: He has a 5.1 white count, 11.2 hemoglobin, 32.5 hematocrit with 100 platelets. He has a 138 sodium, potassium 3.9, BUN 16, creatinine 0.7, GFR is greater than 60, sugar is 110. Calcium is 8.3. Total bilirubin is 1.2, AST is 24, ALT is 30, alkaline phosphatase 45. PLAN: He is being seen by Pulmonary and Infectious Disease. If I can, I will try and get him discharged back to his facility at [place]. He is here for aspiration pneumonia right lower lobe, sepsis syndrome, status post multiple episodes of nausea and vomiting, coronary artery disease. If I can discharge him tomorrow, I will, back at the [facility] to finish off the antibiotics. Sean Nicholson DO MTDD
[2017-09-11] MEDS ORDERED: Vancomycin 750mg 750 MG/250 ML BAG IVPB SCH (22:00)
[2017-09-12] MEDS: Levalbuterol 1.25 MG/3 ML Inhal Soln UD IH SCH ×2 (03:10→08:13)
[2017-09-12] MEDS: Aztreonam 1 Gm in NS 100mL 100 ML IVPB SCH (05:29)
[2017-09-12] MEDS: Pantoprazole 40 mg EC Tab PO SCH (05:31)
[2017-09-12 07:18] VITALS: PULSE 58; RESP 18; TEMP 98.1; O2SAT 96
[2017-09-12] MEDS: Insulin Reg-MEDIUM-Coverage SC SCH (08:08)
--- NOTE | 2017-09-12 10:11 | PN ---
DATE: 09/12/2017 PULMONARY NOTE SUBJECTIVE: The patient appears comfortable this morning. He is not short of breath at rest. He is awake and alert. PHYSICAL EXAMINATION: VITAL SIGNS: (Last noted in the computer): Temperature is 97.9, pulse 57, respirations 18/20, blood pressure 123/71. Oxygen saturation on nasal cannula is 94-97%. HEENT: Normocephalic, atraumatic. No JVD. CARDIOVASCULAR: Positive S1, S2. No S3 gallop. LUNGS: Minimal/less crackles noted at the right base. Minimal/less rhonchi. No wheezing. EXTREMITIES: Mild edema. No cyanosis, no clubbing. Calves are nontender to palpation. GI: Abdomen is soft, nontender and nondistended. Bowel sounds are positive. SKIN: No acute rash. NEUROLOGIC: Exam limited at the present time. IMPRESSION: 1. Aspiration pneumonia-right lower lobe. 2. Sepsis syndrome. 3. Status post multiple episodes of nausea and vomiting. 4. Mild bronchospasm. 5. Coronary artery disease. PLAN: The patient appears comfortable this morning. He is not short of breath at rest. He does state to feeling good overall. I did discuss the case with the night nurse at length. The night nurse stated that the patient had a very good night. On physical exam, his bronchospasm continues to resolve. In addition, the alveolar arterial gradient also continues to resolve. I will continue the current nebulizer treatments and aspiration precautions for now. I would continue with the antibiotic coverage as per Infectious Disease. Inputs are noted. Temperatures have resolved. The leukocytosis has fully resolved. Clinical status of the patient is significantly improved overall. However, again, his future status/prognosis does remain guarded. I will discuss the above with the attending physician. Medardo Whittaker MD MTDRogelio
[2017-09-12] MEDS: levoFLOXacin 500 MG TAB PO SCH (10:54)
[2017-09-12] MEDS: POLYETHYLENE GLYCOL 3350 17 GM/Dose PACKET PO SCH (10:54)
[2017-09-12 11:08] VITALS: BP 115/70
[2017-09-12 11:49] LABS: ALB/GLOB RATIO 1.5 (1.1-1.8); ALBUMIN 3.1 g/dL (3.0-4.8); ALT/SGPT 26 U/L (7-56); AST/SGOT 16 U/L (17-59); BLOOD UREA NITROGEN 7 mg/dL (7-21); CALCIUM 8.6 mg/dL (8.4-10.5); GFR AFRICAN-AMERICAN > 60; GFR NON-AFRICAN AMERICAN > 60
--- NOTE | 2017-09-12 12:46 | CP.PCM.PN ---
Subjective - Date & Time of Evaluation Date of Evaluation: 09/12/17 Time of Evaluation: 11:05 - Subjective Subjective: No fevers, not in distress. Objective - Vital Signs/Intake and Output Vital Signs (last 24 hours): Temp Pulse Resp BP Pulse Ox 98.1 F 58 L 18 101/63 96 09/12/17 06:00 09/12/17 06:00 09/12/17 06:00 09/12/17 06:00 09/12/17 06:00 Intake and Output: 09/12/17 09/12/17 06:59 18:59 Intake Total 120 Balance 120 - Medications Medications: Current Medications Acetaminophen (Tylenol 325 Mg Supp) 975 mg OH ONCE PRN PRN Reason: Fever >100.4 F Last Admin: 09/09/17 04:18 Dose: 975 mg Acetaminophen (Tylenol 325mg Tab) 650 mg PO Q4H PRN PRN Reason: Fever >100.5 F Aspirin (Aspirin Chewable) 81 mg PO DAILY [facility] Last Admin: 09/11/17 11:10 Dose: 81 mg Atorvastatin Calcium (Lipitor) 40 mg PO DIN [facility] Last Admin: 09/11/17 17:40 Dose: 40 mg Furosemide (Lasix) 40 mg IVP DAILY [facility] Aztreonam (Azactam 1 Gm) 100 mls @ 100 mls/hr IVPB Q8 YOLANDA PRN Reason: Protocol Stop: 09/18/17 19:51 Last Admin: 09/12/17 05:29 Dose: 100 mls/hr Vancomycin HCl (Vancomycin 750 Mg In Ns) 750 mg in 250 mls @ 167 mls/hr IVPB Q12H YOLANDA PRN Reason: Protocol Sodium Chloride (Sodium Chloride 0.9%) 1,000 mls @ 40 mls/hr IV .Q24H [facility] Last Admin: 09/11/17 17:41 Dose: 40 mls/hr Insulin Human Regular (Humulin R Med) 0 units SC ACHS YOLANDA PRN Reason: Protocol Last Admin: 09/12/17 08:08 Dose: Not Given Levalbuterol HCl (Xopenex) 1.25 mg IH [id number] [facility] Last Admin: 09/12/17 08:13 Dose: 1.25 mg Levofloxacin (Levaquin) 500 mg PO DAILY [facility] PRN Reason: Protocol Stop: 09/18/17 20:01 Last Admin: 09/11/17 11:10 Dose: 500 mg Pantoprazole Sodium (Protonix Ec Tab) 40 mg PO 0600 [facility] Stop: 10/08/17 06:01 Last Admin: 09/12/17 05:31 Dose: 40 mg Polyethylene Glycol (Miralax) 17 gm PO DAILY [facility] Last Admin: 09/11/17 11:15 Dose: 17 gm - Labs Labs: 09/11/17 06:30 09/11/17 06:30 PT 12.6 SECONDS (9.4-12.5) H 09/09/17 04:05 INR 1.10 (0.93-1.08) H 09/09/17 04:05 APTT 28.1 Seconds (25.1-36.5) 09/09/17 04:05 - Constitutional Appears: Chronically Ill - Head Exam Head Exam: NORMAL INSPECTION - Respiratory Exam Respiratory Exam: Decreased Breath Sounds - Cardiovascular Exam Cardiovascular Exam: +S1, +S2 - GI/Abdominal Exam GI & Abdominal Exam: Soft. absent: Tenderness Assessment and Plan - Assessment and Plan (Free Text) Plan: Assessment right sided HCAP, slowly improving history of C. 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 coli bacteremia and sepsis probably biliary tree in origin History of Klebsiella UTI Plan continue Vancomycin, Azactam and Levaquin to complete 4-7 days of therapy (day 4 ) blood cx negative, PCT is elevated at 4.81, urine Legionella Ag
--- NOTE | 2017-09-13 07:28 | DS ---
HISTORY OF PRESENT ILLNESS: He is here for pneumonia. He is doing better. He is currently on aspirin, aztreonam, insulin coverage, Lasix, Levaquin, Lipitor, MiraLax, Protonix, Tylenol, vancomycin, and Xopenex. He is going to go home for four more days of IV antibiotics. We will check his labs at the assisted. PHYSICAL EXAMINATION: VITAL SIGNS: He has 98.1 temp, 58 pulse, 101/63 blood pressure, 18 respiratory rate, 96% O2 sat on 3 liters nasal cannula. HEENT: His head is atraumatic, normocephalic. HEART: Regular rate. LUNGS: Clear to auscultation, much clear, a little congestion though still in the right side, but improving. ABDOMEN: Soft. EXTREMITIES: No edema. ASSESSMENT AND PLAN: He needs 4 more days of intravenous antibiotics. He will be on Azactam, Levaquin, and vancomycin. We will check labs every day at the assisted. He has 138 sodium, potassium 3.9, BUN 16, creatinine 0.7. Last blood sugar is 115. Calcium is 8.3, total bili is 1.2, AST is 24, ALT is 30, alk phos 45, total protein is 5. INR is 1.1. He has 5.1 white count, 11.2 hemoglobin, 32.5 hematocrit, with 100 platelets. Lactate, his last one was 3. Microbiology is all negative, which is good. He was seen by the Infectious Disease doctor. He has to complete 7 days total of IV antibiotics; he has 4 more to go. He will do it up at the [facility] where he comes from and I will follow him there, plus check his labs everyday. Sean Nicholson DO
== END 2017-09-12 11:31 | DRG 871 ==
LOC: ED 03:59 → ERH 05:29 → 2RNO 07:59 → 5RSO 09-10 16:26
PROVIDERS: ADMIT Family Medicine; ATTEND Family Medicine
PROC: 5A09457 Assistance with Respiratory Ventilation, 24-96 Consecutive Hours, Continuous Positive Airway Pressure (ICD-10-PCS; principal; 2017-09-09)
DX: A41.9 Sepsis, unspecified organism (principal); J69.0 Pneumonitis due to inhalation of food and vomit; D59.1 Other autoimmune hemolytic anemias; K92.2 Gastrointestinal hemorrhage, unspecified; N17.9 Acute kidney failure, unspecified; C61 Malignant neoplasm of prostate; D46.9 Myelodysplastic syndrome, unspecified; G30.9 Alzheimer's disease, unspecified; F02.80 Dementia in other diseases classified elsewhere, unspecified severity, without behavioral disturbance, psychotic disturbance, mood disturbance, and anxiety; B96.20 Unspecified Escherichia coli [E. coli] as the cause of diseases classified elsewhere; D63.8 Anemia in other chronic diseases classified elsewhere; E03.9 Hypothyroidism, unspecified; E11.9 Type 2 diabetes mellitus without complications; I11.0 Hypertensive heart disease with heart failure; I50.9 Heart failure, unspecified; J98.01 Acute bronchospasm; I25.10 Atherosclerotic heart disease of native coronary artery without angina pectoris; K21.9 Gastro-esophageal reflux disease without esophagitis; R32 Unspecified urinary incontinence; R65.20 Severe sepsis without septic shock; Y95 Nosocomial condition; K81.9 Cholecystitis, unspecified; Z79.82 Long term (current) use of aspirin; Z80.0 Family history of malignant neoplasm of digestive organs; Z80.41 Family history of malignant neoplasm of ovary; Z82.49 Family history of ischemic heart disease and other diseases of the circulatory system; Z87.01 Personal history of pneumonia (recurrent); Z87.440 Personal history of urinary (tract) infections; Z87.891 Personal history of nicotine dependence

== ENCOUNTER 2017-10-10 00:52 | Inpatient (IN) | payer MEDICARE, MEDICAID ==
[2017-10-10 01:08] VITALS: BMI 17.7
[2017-10-10] MEDS: Sodium Chloride 0.9% 1,000 ML IV SCH ×2 (01:45→13:48)
[2017-10-10 01:52] LABS: VENOUS BLOOD GAS BASE EXCESS 0.6 mmol/L (0.0-2.0); VENOUS BLOOD GAS PO2 43 mm/Hg (30-55); VENOUS BLOOD PH 7.36 (7.32-7.43)
[2017-10-10 01:54] LABS: BASO # 0.02 K/mm3 (0.0-2.0); BASO % 0.2 % (0.0-3.0); EOS # 0.1 (0.0-0.7); EOS % 0.6 % (1.5-5.0); GRAN # 8.66 (1.4-6.5); GRAN % 86.7 % (50.0-68.0); HEMOGLOBIN 15.2 g/dL (14.0-18.0); LYMPH # 0.6 (1.2-3.4); LYMPH % 5.7 % (22.0-35.0); MEAN CELL VOLUME 88.1 fl (80.0-105.0); MEAN CORPUSCULAR HEMOGLOBIN 30.7 pg (25.0-35.0); MEAN CORPUSCULAR HGB CONC 34.9 g/dl (31.0-37.0); MEAN PLATELET VOLUME 10.2 fl (7.0-11.0); MONO # 0.7 (0.1-0.6); MONO % 6.8 % (1.0-6.0); RBC 4.95 10^6/uL (3.5-6.1); RED CELL DISTRIBUTION WIDTH 14.8 % (11.5-14.5)
[2017-10-10 02:14] LABS: ALB/GLOB RATIO 1.7 (1.1-1.8); ALBUMIN 4.3 g/dL (3.0-4.8); ALT/SGPT 32 U/L (7-56); AST/SGOT 20 U/L (17-59); BLOOD UREA NITROGEN 25 mg/dL (7-21); CALCIUM 9.7 mg/dL (8.4-10.5); GFR AFRICAN-AMERICAN > 60; GFR NON-AFRICAN AMERICAN > 60
[2017-10-10] MEDS ORDERED: Vancomycin 1gm in NS 250ml 1 GM/250 ML BAG IVPB STA (02:18)
[2017-10-10 02:21] LABS: INR 1.15 (0.93-1.08); PARTIAL THROMBOPLASTIN TIME 32.7 Seconds (25.1-36.5); PROTHROMBIN TIME 13.1 SECONDS (9.4-12.5)
[2017-10-10] MEDS ORDERED: Meropenem IV 1 gm in NS 50 ML IVPB STA (02:24)
--- NOTE | 2017-10-10 02:36 | ED PDOC ---
Arrival/HPI - General Chief Complaint: Fever Time Seen by Provider: 10/10/17 01:29 Historian: Spouse, [facility] Caveat: Other (Baseline mental state) - History of Present Illness Narrative History of Present Illness (Text): 10/10/17 02:36 77 year old male, whose past medical history includes Alzheimer's, CHF, and hypertension, presents to the Emergency department via EMS from [facility] complaining of fever that began yesterday at the retirement as per . The states the retirement called tonight informing her that they are sending him in because his fever came back. Patient is also coughing a lot with excessive amount of ferrell looking sputum. HPI and ROS limited due to patient's current baseline mental state. Time/Duration: 24 hours Symptom Onset: Sudden Context: Home (retirement) Past Medical History - Provider Review Nursing Documentation Reviewed: Yes - Infectious Disease Hx of Infectious Diseases: None - Cardiac Hx Cardiac Disorders: Yes Hx Angina: No Hx Cardiac Arrhythmia: No Hx Circulatory Problems: Yes Hx Congestive Heart Failure: Yes Hx Heart Murmur: No Hx Heart Transplant: No Hx Hypertension: Yes Hx Internal Defibrillator: No Hx Mitral Valve Prolapse: No Hx Pacemaker: No Hx Peripheral Edema: No Hx Peripheral Vascular Disease: Yes - Pulmonary Hx Respiratory Disorders: Yes Hx Asthma: No Hx Bronchitis: No Hx Chronic Obstructive Pulmonary Disease (COPD): No Hx Emphysema: No Hx Pneumonia: Yes Hx Respiratory Aspiration: Yes Hx Respiratory Tract Infection: Yes Hx Sleep Apnea: No Hx Tuberculosis: No - Neurological Hx Neurological Disorder: No Hx Alzheimer's Disease: Yes HX Cerebrovascular Accident: No Hx Dementia: Yes Hx Dizziness: No Hx Meningitis: No Hx Migraine: No Hx Parkinson's Disease: No Hx Seizures: No Hx Transient Ischemic Attacks (TIA): No - HEENT Hx HEENT Disorder: No Hx Blind: No Hx Cataracts: No Hx Deafness: No Hx Difficulty Chewing: No Hx Epistaxis: No Hx Glaucoma: No Hx Macular Degeneration: No - Renal Hx Renal Failure: Yes - Endocrine/Metabolic Hx Diabetes Mellitus Type 2: Yes Hx Hypothyroidism: Yes - Hematological/Oncological Hx Cancer: Yes (prostate) - Integumentary Hx Dermatological Disorder: Yes Hx Basal Cell Carcinoma: No Hx Eczema: Yes Hx Melanoma: Yes Hx Psoriasis: No Hx Squamous Cell Carcinoma: No - Musculoskeletal/Rheumatological Hx Musculoskeletal Disorders: No Hx Arthritis: No Hx Back Pain: No Hx Degenerative Joint Disease: Yes Hx Falls: No Hx Fractures: No Hx Gout: No Hx Herniated Disk: No Hx Myasthenia Gravis: No Hx Osteoarthritis: No Hx Osteoporosis: No Hx Rhabdomyolysis: No Hx Spinal Stenosis: Yes Hx Unsteady Gait: No - Gastrointestinal Hx Gastroesophageal Reflux: Yes - Genitourinary/Gynecological Hx Genitourinary Disorders: No Hx Hematuria: No Hx Incontinence: Yes Hx Prostate Problems: Yes Hx Sexually Transmitted Diseases: No Hx Urinary Tract Infection: Yes - Psychiatric Hx Psychophysiologic Disorder: No Hx Anxiety: No Hx Bipolar Disorder: No Hx Depression: No Hx Emotional Abuse: No Hx Hallucinations: No Hx Panic Disorder: No Hx Post Traumatic Stress Disorder: No Hx Psychosis: No Hx Physical Abuse: No Hx Schizophrenia: No Hx Sexual Abuse: No Hx Substance Use: No - Surgical History Hx Amputation: No Hx Appendectomy: No Hx Cardiac Catheterization: No Hx Cholecystectomy: No Hx Coronary Stent: No Hx Gastric Bypass Surgery: No Hx Hysterectomy: No Hx Joint Replacement: No Hx Kidney Transplant: No Hx Liver Transplant: No Hx Mastectomy: No Hx Musculoskeletal Surgery: No Hx Open Heart Surgery: No Hx Orthopedic Surgery: No Hx Splenectomy: No Hx Valve Replacement: No - Anesthesia Hx Anesthesia Reactions: No Hx Malignant Hyperthermia: No - Suicidal Assessment Feels Threatened In Home Enviroment: No Family/Social History - Physician Review Nursing Documentation Reviewed: Yes Family/Social History: No Known Family HX Smoking Status: Former Smoker Hx Alcohol Use: No Hx Substance Use: No Allergies/Home Meds Allergies/Adverse Reactions: Allergies ceftriaxone sodium [From Rocephin] Allergy (Verified 10/10/17 01:09) RASH Home Medications: Home Meds Medication Instructions Recorded Confirmed Aspirin [Adult Low Dose Aspirin EC] 81 mg PO DAILY 08/21/16 10/10/17 Donepezil [Aricept] 10 mg PO HS 08/21/16 10/10/17 Ferrous Sulfate [Feosol] 324 mg PO DAILY 08/21/16 10/10/17 Levothyroxine [Synthroid] 75 mcg PO DAILY 08/21/16 10/10/17 Magnesium Hydroxide [Milk Of 30 ml PO PRN PRN 08/21/16 10/10/17 Magnesia] Metoprolol Tartrate [Lopressor] 12.5 mg PO BID 08/21/16 10/10/17 Midodrine [Proamatine] 10 mg PO TID 08/21/16 10/10/17 Acetaminophen [Pain Reliever] 650 mg PO Q4 PRN 10/19/16 10/10/17 Atorvastatin [Lipitor] 40 mg PO HS 09/09/17 10/10/17 Cetirizine HCl [Allergy] 10 mg PO DAILY 09/09/17 10/10/17 Montelukast [Singulair] 10 mg PO DAILY 10/10/17 10/10/17 SITagliptin [Januvia] 100 mg PO DAILY 10/10/17 10/10/17 Review of Systems - Physician Review All systems were reviewed & negative as marked: Yes - Review of Systems Systems not reviewed;Unavailable: Other (Baseline Mental state) Constitutional: Fevers Physical Exam Vital Signs Reviewed: Yes Vital Signs Temp Pulse Resp BP Pulse Ox 10/10/17 02:08 102.9 F H 10/10/17 01:28 102.9 F H 97 H 20 108/64 88 L Temperature: Febrile Blood Pressure: Normal Pulse: Tachycardic Respiratory Rate: Normal Appearance: Positive for: Well-Appearing, Non-Toxic, Comfortable Pain Distress: None Mental Status: Positive for: other (Alert) - Systems Exam Head: Present: Atraumatic, Normocephalic Pupils: Present: PERRL Extroacular Muscles: Present: EOMI Conjunctiva: Present: Normal Mouth: Present: Moist Mucous Membranes Neck: Present: Normal Range of Motion Respiratory/Chest: Present: Rhonchi (Scattered), Other (Noisy both sides). No: Respiratory Distress, Accessory Muscle Use Cardiovascular: Present: Regular Rate and Rhythm, Normal S1, S2. No: Murmurs Abdomen: No: Tenderness, Distention, Peritoneal Signs Back: Present: Normal Inspection Upper Extremity: Present: Normal Inspection. No: Cyanosis, Edema Lower Extremity: Present: Normal Inspection. No: Edema Neurological: Present: GCS=15, CN II-XII Intact Skin: Present: Warm, Dry, Normal Color. No: Rashes Psychiatric: Present: Alert Medical Decision Making ED Course and Treatment: 10/10/17 02:36 Impression: 77 year old male sent in by retirement for fever that began yesterday. Plan: -- VBG -- EKG -- Labs -- Chest X-Ray -- Merrem, IV Fluids, Tylenol, Vancomycin -- Blood CUlture, Urine Culture -- Procalcitonin serum -- Urinalysis -- Reassess and disposition Prior Visits: Notes and results from previous visits were reviewed. On 09/09/17 patient came in complaining of shortness of breath and coughing emesis prior to arrival. Patient was admitted. Progress Notes: 10/10/17 01:13 EKG shows Sinus Tachycardia at [address]/T wave changes. Interpreted by me. 10/10/17 02:39 CXR Impression: As read by me, pneumonia. Right lower lobe infiltrates 10/10/17 02:[address] Nicholson who is aware and agrees with the plan. Accepts patient into his service. - Lab Interpretations Lab Results: 10/10/17 01:15 10/10/17 01:15 Lab Results 10/10/17 01:15: Sodium 143, Chloride 101, Potassium 4.4, Carbon Dioxide 27, Anion Gap 19, BUN 25 H, Creatinine 1.0, Est GFR ( Amer) > 60, Est GFR ( Non-Af Amer) > 60, Random Glucose 161 H, Calcium 9.7, Phosphorus 3.6, Magnesium 1.8, Total Bilirubin 1.6 H, AST 20, ALT 32, Alkaline Phosphatase 77, Total Protein 6.8, Albumin 4.3, Globulin 2.5, Albumin/Globulin Ratio 1.7 10/10/17 01:15: pO2 43, VBG pH 7.36, VBG pCO2 47.0, VBG HCO3 26.6, VBG Total CO2 28.0, VBG O2 Sat (Calc) 77.9 H, VBG Base Excess 0.6, VBG Potassium 4.6, Sodium 138.0, Chloride 103.0, Glucose 175 H, Lactate 3.1 H, FiO2 21.0, Venous Blood Potassium 4.6 10/10/17 01:15: PT 13.1 H, INR 1.15 H, APTT 32.7 10/10/17 01:15: WBC 10.0 D, RBC 4.95, Hgb 15.2 D, Hct 43.6, MCV 88.1, MCH 30.7 , MCHC 34.9, RDW 14.8 H, Plt Count 124, MPV 10.2, Gran % 86.7 H, Lymph % (Auto) 5.7 L, [place] % (Auto) 6.8 H, Eos % (Auto) 0.6 L, Baso % (Auto) 0.2, Gran # 8.66 H , Lymph # (Auto) 0.6 L, [place] # (Auto) 0.7 H, Eos # (Auto) 0.1, Baso # (Auto) 0.02 I have reviewed the lab results: Yes - RAD Interpretation Radiology Orders: 10/10/17 01:30 CHEST PORTABLE [RAD] Stat - EKG Interpretation Interpreted by ED Physician: Yes Type: 12 lead EKG - Medication Orders Current Medication Orders: Sodium Chloride (Sodium Chloride 0.9%) 1,000 mls @ 150 mls/hr IV .Q6H40M YOLANDA Last Admin: 10/10/17 01:45 Dose: 150 mls/hr eMAR Start Stop Document 10/10/17 01:45 AD (Rec: 10/10/17 02:09 AD [id number]) Intravenous Solution Start Date 10/10/17 Start Time 01:45 Vancomycin HCl (Vancomycin 1gm) 1 gm in 250 mls @ 167 mls/hr IVPB STAT STA PRN Reason: Protocol Stop: 10/10/17 03:47 Meropenem (Merrem Iv 1 Gm Premix) 50 mls @ 100 mls/hr IVPB STAT STA PRN Reason: Protocol Stop: 10/10/17 02:53 Last Admin: 10/10/17 02:37 Dose: 100 mls/hr eMAR Start Stop Document 10/10/17 02:37 AD (Rec: 10/10/17 02:37 AD [id number]) Intravenous Solution Start Date 10/10/17 Start Time 02:37 Discontinued Medications Acetaminophen (Tylenol 650 Mg Supp) 650 mg RC STAT STA Stop: 10/10/17 01:53 Last Admin: 10/10/17 02:08 Dose: 650 mg MAR Pain/Vitals Document 10/10/17 02:08 AD (Rec: 10/10/17 02:09 AD [id number]) Vitals Temperature (97.6 F-99.6 F) 102.9 F Temperature Source Rectal - Scribe Statement The provider has reviewed the documentation as recorded by the Adrienne Redding Provider Scribe Attestation: All medical record entries made by the Adrienne were at my direction and personally dictated by me. I have reviewed the chart and agree that the record accurately reflects my personal performance of the history, physical exam, medical decision making, and the department course for this patient. I have also personally directed, reviewed, and agree with the discharge instructions and disposition. Disposition/Present on Arrival - Present on Arrival Any Indicators Present on Arrival: No History of DVT/PE: No History of Uncontrolled Diabetes: No Urinary Catheter: No History of Decub. Ulcer: No History Surgical Site Infection Following: None - Disposition Have Diagnosis and Disposition been Completed?: Yes Diagnosis: Pneumonia Disposition: HOSPITALIZED Disposition Time: 02:41 Patient Plan: Admission Condition: FAIR Forms: [facility] ([employer])
[2017-10-10 03:32] LABS: URINE APPEARANCE CLOUDY (CLEAR); URINE BILIRUBIN NEGATIVE (NEGATIVE); URINE BLOOD SMALL (NEGATIVE); URINE COLOR YELLOW (YELLOW); URINE GLUCOSE (UA) NEGATIVE (NEGATIVE); URINE LEUKOCYTE ESTERASE MODERATE Leu/uL (NEGATIVE); URINE PROTEIN 30 mg/dL (<30 mg/dL); URINE UROBILINOGEN 0.2 E.U./dL (<1 E.U./dL)
[2017-10-10 03:53] LABS: URINE BACTERIA MOD (NEG); URINE WBC TNTC /hpf (0-6)
[2017-10-10 04:35] LABS: VENOUS BLOOD GAS BASE EXCESS 3.6 mmol/L (0.0-2.0); VENOUS BLOOD GAS PO2 50 mm/Hg (30-55); VENOUS BLOOD PH 7.37 (7.32-7.43)
--- NOTE | 2017-10-10 09:28 | RAD ---
Date of service: 10/10/2017 HISTORY: Sepsis Patient COMPARISON: 09/09/2017 FINDINGS: LUNGS: The lungs are well inflated. There is persistent consolidation in the right lower lobe. There is subsegmental atelectasis/ bronchiectasis in the left lower lobe. PLEURA: No significant pleural effusion identified, no pneumothorax apparent. CARDIOVASCULAR: Normal. OSSEOUS STRUCTURES: No significant abnormalities. VISUALIZED UPPER ABDOMEN: Normal. OTHER FINDINGS: None. IMPRESSION: No change in right lower lobe consolidation. Follow-up after medical management is recommended to ensure complete resolution.
[2017-10-10] MEDS: Meropenem IV 1 gm in NS 50 ML IVPB SCH ×3 (10:16→22:56)
[2017-10-10] MEDS: Vancomycin 1gm in NS 250ml 1 GM/250 ML BAG IVPB SCH (10:16)
--- NOTE | 2017-10-10 10:39 | CT ---
Date of service: 10/10/2017 PROCEDURE: CT Chest without contrast HISTORY: r/o pneumonia COMPARISON: Plain radiographs from 10/10/2017 TECHNIQUE: Contiguous axial images were obtained through the chest without intravenous contrast enhancement. Sagittal and coronal reconstructions were performed. Radiation dose (DLP): 1210.46 mGy-cm. This CT exam was performed using one or more of the following dose reduction techniques: Automated exposure control, adjustment of the mA and/or kV according to patient size, and/or use of iterative reconstruction technique. FINDINGS: LUNGS: The lungs are well inflated. There is patchy and confluent airspace disease in the lower lobes, worse in the lung bases. There are no endobronchial lesions. MEDIASTINUM: The aorta is not dilated. The heart is normal in size. No pericardial effusion. No pathologic lymphadenopathy. PLEURA: No pleural fluid. No pneumothorax. BONES: There is an age indeterminate superior endplate compression deformity in the T12 vertebral body. No destructive lesion. Diffuse bone demineralization and multilevel degenerative disc disease. UPPER ABDOMEN: The adrenal glands are normal. Mild splenomegaly. No cholelithiasis. OTHER FINDINGS: There is a small sliding hiatal hernia. IMPRESSION: 1. Findings are most compatible with multifocal lower lobe pneumonia, worse in the lung bases. 2. Mild splenomegaly.
[2017-10-10] MEDS: Albuterol-Ipratrop 3 mg / 0.5 (3 ml) UD IH SCH ×3 (11:08→19:56)
[2017-10-10] MEDS: Insulin Reg-LOW-Coverage SC SCH ×3 (12:00→22:54)
--- NOTE | 2017-10-10 12:23 | CARD ---
APPROVED REPORT Date of service: 10/10/2017 EKG Measurement Heart [id number] <Conclusion> Sinus tachycardia Low voltage QRS Nonspecific ST and T wave abnormality Abnormal ECG
--- NOTE | 2017-10-10 13:00 | CON ---
DATE: 10/10/2017 LOCATION: The patient is in room 376, bed 2. HISTORY OF PRESENT ILLNESS: This is a 77-year-old male whose past medical history includes Alzheimer's, congestive heart failure, hypertension presented to the emergency room from a care home. The patient with a fever x1 day duration and the patient also is a poor historian. There has been reports of shortness of breath and cough. The patient does not have a Tong catheter at the care home. They have diaper here in the hospital. Tong catheter was placed and it grossly appeared source. REVIEW OF SYSTEMS: A 12-point review of systems is performed and negative except what is in the HPI. PAST MEDICAL HISTORY: Significant for Alzheimer dementia, hemolytic anemia, prostate cancer, depression, acute kidney injury, Haylee fungemia, bowel obstruction, history of ESBL, E. coli bacteremia and Klebsiella urinary tract infection. PAST SURGICAL HISTORY: Noncontributory. ALLERGIES: THE PATIENT IS ALLERGIC TO CEFTRIAXONE, HAS A QUESTIONABLE RASH TO MEROPENEM IN THE PAST. MEDICATIONS AT HOME: Reveals to be Januvia, magnesium, midodrine, metoprolol, levothyroxine, Lipitor. PHYSICAL EXAMINATION: GENERAL: He is in bed, appearing chronically ill, debilitated. VITAL SIGNS: Temperature of 102.9, heart rate of 97, respiratory rate of 20, saturation at 88% with nasal cannula, blood pressure is 103/60, BMI is 17. HEENT: There is temporal wasting. NECK: Supple. LUNGS: Have decreased breath sounds. HEART: Normal S1, S2. ABDOMINAL: Soft, nontender. No rebound or guarding. LABORATORY EXAMINATION: Reveals a white count of 10,000, hemoglobin of 15 and platelets of 124, 86% granulocytosis. Coagulation is noted. Chemistries reveals a BUN of 25, creatinine of 1.0. Urinalysis is noted. Too numerous to count WBCs with moderate bacteria and moderate urine, protein, leukocyte esterase. Microbiology is pending. The patient had a chest x-ray, results are not available at this time. EKG results are not available at this time. ASSESSMENT AND PLAN: A 77-year-old care home patient with Alzheimer dementia, congestive heart failure, hemolytic anemia, hypertension, history of extended-spectrum beta-lactamase, Escherichia coli bacteremia, prostate cancer, depression, bowel obstruction, acute kidney injury and Haylee fungemia presenting with a temperature of 102, tachycardia, hypoxia, questionable rash to ceftriaxone and meropenem with positive urinalysis and hypoxia. 1. Severe sepsis secondary to urine as a source. We will start the patient on vancomycin and meropenem given risk and benefits of treatment with meropenem in this patient with a history of extended-spectrum beta-lactamase and since it was questionable rash, it was not documented. We will empirically start vancomycin and meropenem pending blood culture and urine cultures. Since the patient has acute kidney injury in the past, we will give vancomycin once daily pending panculture results. We will make further recommendations upon availability of initial results. Overall prognosis is quite poor for this patient who is cachectic and end-stage appearing with no quality of life, should consider supportive care. We will also check on the procalcitonin. Padilla Goode MD
--- NOTE | 2017-10-10 20:27 | HP ---
HISTORY OF PRESENT ILLNESS: I know Max for a very long time. I have been seeing him at the half-way. He has been on antibiotics at the half-way. He is a 77-year-old man who started to deteriorate with coughing up blood and having a fever of 102. He was on Levaquin at the half-way. He was not eating well, getting more lethargic and I sent him to the emergency room. PAST MEDICAL HISTORY: Alzheimer's, CHF, hypertension, gallbladder disease, coronary artery disease with a need of a cardiac stent. He has got dementia. He is presently confused. He has pneumonia history, aspiration pneumonia history, respiratory tract infections, urinary tract infections, dementia, renal failure in the past, hypothyroidism, diabetes. He has eczema, melanoma history, spinal stenosis, gastroesophageal reflux, incontinence of urine and bowels, hypertension in the family, former smoker. No alcohol. No drugs. HE HAS GOT ALLERGIES TO ROCEPHIN. MEDICATIONS: He is on aspirin, Aricept, Feosol, Synthroid, milk of magnesia, Lopressor, Primatene, pain relievers, acetaminophen, Lipitor. ALLERGIES: ALLERGY MEDICINES ARE SINGULAIR, JANUVIA. PHYSICAL EXAMINATION: GENERAL: He is alert, confused. Denies any pain, presently confused as far as I can get as far as his mentation. He is alert. He is trying to eat, but he is coughing while he is eating. His is present with many questions. He is tachycardic. He is not well appearing. He is mildly toxic, little bit uncomfortable, lethargic for him. He is alert though. VITAL SIGNS: He has a 102.9 temperature in the ER, 97 pulse, 20 respiratory rate, 108/64 blood pressure, 88% O2 sat on room air. He will need oxygen. HEENT: Head: Atraumatic, normocephalic. Extraocular muscles are intact. Pupils are equal and reactive to light. Throat is dry. NECK: Supple. HEART: Regular rate. Normal S1, S2. LUNGS: Bilateral scattered, congestion, both sides rhonchi or rales. ABDOMEN: Soft, nontender. Positive bowel sounds. SKIN: No apparent rashes, some dried areas in the back. No cuts or ulcers. EXTREMITIES: Legs have no edema. NEUROLOGIC: GCS is 15. Cranial nerves II through XII grossly intact. Speech is normal. Alert and oriented x0. Pleasantly confused. LYMPHATICS: Thyroid midline. No palpable appreciable lymphadenopathy. LABORATORY DATA: He had 10 white count, 15.2 hemoglobin, 42.6 hematocrit with 124 platelets. He has 143 sodium, potassium 4.4, CO2 27, anion gap is 19, BUN 25, creatinine 1, GFR is greater than 60, sugar is 1061, calcium is 9.7, phosphorus is 3.6, magnesium 1.8, total bili is 1.6, AST is 20, ALT is 32, alkaline phosphatase 77, total protein 6.8, albumin is 4.3, globulin 2.5. He has a lactate that was elevated at 3.1, glucose is 175. INR is 1.15. He had some CAT scan done. The CAT scan showed multifocal lobar pneumonia. In the urine, it showed moderate leukocytes and moderate bacteria of UTI. He is going to have consults with Infectious Disease, Pulmonary and Cardiology. He is on Merrem IV, Lasix IV, oxygen, insulin coverage. We will check his labs tomorrow. Dr. Nicholson dictating on Max Matthew who has had a long discussion with his with sepsis, UTI, multilobar pneumonia, elevated temperature and also hemoptysis. Sean Nicholson DO
[2017-10-11] MEDS: Albuterol-Ipratrop 3 mg / 0.5 (3 ml) UD IH SCH ×4 (02:40→19:54)
[2017-10-11] MEDS: Meropenem IV 1 gm in NS 50 ML IVPB SCH ×3 (05:18→22:11)
[2017-10-11 06:41] LABS: MEAN CORPUSCULAR HEMOGLOBIN 30.1 pg (25.0-35.0); MEAN CORPUSCULAR HGB CONC 33.8 g/dl (31.0-37.0); MEAN PLATELET VOLUME 9.9 fl (7.0-11.0); RBC 3.72 10^6/uL (3.5-6.1); RED CELL DISTRIBUTION WIDTH 14.9 % (11.5-14.5); WHITE BLOOD COUNT 6.6 10^3/ul (4.5-11.0)
[2017-10-11 07:27] LABS: HEMOGLOBIN 11.2 g/dL (14.0-18.0)
[2017-10-11 07:28] LABS: ALB/GLOB RATIO 1.3 (1.1-1.8); ALT/SGPT 30 U/L (7-56); AST/SGOT 12 U/L (17-59); BLOOD UREA NITROGEN 23 mg/dL (7-21); CALCIUM 8.4 mg/dL (8.4-10.5); GFR AFRICAN-AMERICAN > 60; GFR NON-AFRICAN AMERICAN > 60
[2017-10-11] MEDS ORDERED: Potassium Chloride 20 mEq ER Tab PO ONE (08:12)
[2017-10-11] MEDS: Insulin Reg-LOW-Coverage SC SCH ×4 (08:12→22:10)
--- NOTE | 2017-10-11 08:45 | CON ---
DATE: 10/11/2017 PULMONARY CONSULTATION REASON FOR CONSULTATION: Pneumonia. REFERRING PHYSICIAN: Sean Nicholson DO. HISTORY OF PRESENT ILLNESS: History is obtained via extensive discussion with the night nurse. I have also reviewed the chart at length. The patient is a chronically ill 77-year-old male, [facility] resident, with past medical history significant for advanced Alzheimer's dementia, congestive heart failure, coronary artery disease, hypertension, pneumonia in the past, ascending cholangitis in the past, who presents to [facility] - transferred from the [facility] - with a 1-day history of shortness of breath, cough and sputum production. The patient was also noted to have low-grade fevers at the [facility]. He was thus admitted for additional evaluation. As above, the patient did present with shortness of breath, cough and sputum production. There is no history of chest pain, coughing up of blood or chest pain - made worse with deep respirations. As above, the patient did present with fevers. No history of chills or infectious exposure. No history of night sweats, weight loss or appetite change prior to the above events. No history of leg or calf pains. No history of syncope or diaphoresis. No history of recent travel or trauma. REVIEW OF SYSTEMS: No history of nausea, vomiting or diarrhea. No acute urinary symptoms. No new neurologic or musculoskeletal complaints. Rest of the review of systems is negative. ALLERGIES: TO ROCEPHIN. SOCIAL HISTORY: Positive for tobacco. Negative for alcohol. FAMILY HISTORY: No inheritable diseases. HOME MEDICATIONS: Include Feosol, Januvia, midodrine, Lopressor, Synthroid, Aricept, Lipitor, aspirin, Singulair. PHYSICAL EXAMINATION: GENERAL: The patient is not short of breath at rest. He is not using accessory muscles for breathing. VITAL SIGNS: Temperature is 98.3, pulse is 81, respirations 18, blood pressure 104/68. Oxygen saturation on nasal cannula is 95-96%. HEENT: Normocephalic, atraumatic. No JVD. CARDIOVASCULAR: Positive S1, S2. No S3 gallop. LUNGS: Crackles at both bases. Minimal bilateral rhonchi. No wheezing. EXTREMITIES: Mild edema. No cyanosis. No clubbing. Calves are nontender to palpation. GI: Abdomen is soft, nontender, nondistended. Bowel sounds are positive. SKIN: No acute rash. NEUROLOGIC: Limited at the present time. PERTINENT LABORATORY DATA: CAT scan of the chest was done and reviewed. There are bilateral lower lobe consolidations consistent with pneumonia. There are no endobronchial lesions. There is no significant lymphadenopathy. CBC: White count 6.6K, hemoglobin 11.2, hematocrit 33.1, platelets of 88,000. Complete metabolic profile: Potassium 3.4, BUN 23, glucose 129. Rest of the metabolic profile is within normal limits. Procalcitonin done yesterday is slightly elevated at 0.51. Urinalysis: Urine leukocyte esterase moderate. Urine WBC count - too numerous to count. IMPRESSION: 1. Sepsis syndrome. 2. Bilateral lower lobe pneumonia. 3. Urinary tract infection. 4. Advanced dementia. 5. Mild anemia. PLAN: Again, I did discuss the case with the night nurse at length. I have also reviewed the chart at length. The patient presents to [facility] - transferred from the [facility] - with a 1-day history of worsening pulmonary symptoms and fevers. I did review the CAT scan of the chest - noted above. The CAT scan is consistent with bilateral lower lobe pneumonia. In addition, the patient also has a probable urinary tract infection. The patient has been placed on appropriate antibiotic therapy - as per Infectious Disease. Input by Dr. Goode is noted. The temperatures have now resolved. On physical exam, there is mild bronchospasm noted. However, there is no significant alveolar-arterial gradient. I will continue with the current nebulizer treatments for now. I will also order aspiration precautions. As above, the patient does have a recent history of aspiration pneumonia. I would certainly consider repeating the swallowing evaluation. The patient is chronically ill, and his overall status appears to be declining/poor. I will discuss the above with Dr. Nicholson at length. Thank you very much for this pulmonary consultation. Medardo Whittaker MD [facility]
[2017-10-11] MEDS: Vancomycin 1gm in NS 250ml 1 GM/250 ML BAG IVPB SCH (09:20)
--- NOTE | 2017-10-11 10:42 | PN ---
DATE: 10/11/2017 SUBJECTIVE: I saw Max resting comfortably in bed. He is coughing up lots of thick phlegm, which is good. He is getting out of his system. He is on DuoNeb, Lasix, Merrem IV, ibuprofen, Tylenol, vancomycin. He had a potassium replacement. He is presently confused. No chest pain, no shortness of breath; although, he is coughing. PHYSICAL EXAMINATION VITAL SIGNS: A 98.7 temperature, 81 pulse, 104/68 blood pressure, 20 respiratory rate, 94% O2 sat on 2 liters. HEENT: His head is atraumatic, normocephalic. GENERAL: He is alert and confused. HEART: Regular rate. LUNGS: Decreased breath sounds, congestion bilaterally, thick phlegm. ABDOMEN: Soft. EXTREMITIES: No edema. NEUROLOGIC: He is actually more alert today than yesterday. LABORATORY DATA: . He has 143 sodium, potassium of 3.4, replaced the potassium. BUN 23, creatinine 0.7 improving, GFR is greater than 60, sugar is 129. Total bilirubin is 1.2, AST is 12, ALT is 30, and alkaline phosphatase 51. C-reactive protein was greater than 15, total protein is 5.3, procalcitonin is 5.57. He has a white count of 6.6, hemoglobin of 11.2, he dropped 4 g, hematocrit 33.1, platelets are 88. ASSESSMENT AND PLAN: He has been very dry. I do not think he is bleeding. He has consults with Infectious Disease, Pulmonary, and Cardiology. I ordered physical therapy and chest PT. Potassium replaced. We are going to check his labs tomorrow. Out of bed to chair. He is here for multilobar pneumonia, sepsis, urinary tract infection, diabetes, and he has got dementia. Sean Nicholson DO MTDD
--- NOTE | 2017-10-11 15:02 | CP.PCM.PN ---
Subjective - Date & Time of Evaluation Date of Evaluation: 10/11/17 Time of Evaluation: 11:25 - Subjective Subjective: Still had fevers overnight, ill-appearing. Objective - Vital Signs/Intake and Output Vital Signs (last 24 hours): Temp Pulse Resp BP Pulse Ox 98.1 F 56 L 22 87/53 L 97 10/11/17 08:52 10/11/17 08:52 10/11/17 08:52 10/11/17 08:52 10/11/17 08:52 Intake and Output: 10/11/17 10/11/17 06:59 18:59 Intake Total 360 Output Total 500 Balance -140 - Medications Medications: Current Medications Acetaminophen (Tylenol 650 Mg Supp) 650 mg RC Q4H PRN PRN Reason: Fever >100.4 F Last Admin: 10/10/17 13:52 Dose: 650 mg Albuterol/Ipratropium (Duoneb 3 Mg/0.5 Mg (3 Ml) Ud) 3 ml IH [id number] YOLANDA Last Admin: 10/11/17 07:23 Dose: 3 ml Sodium Chloride (Sodium Chloride 0.9%) 1,000 mls @ 150 mls/hr IV .[id number] YOLANDA Last Admin: 10/10/17 13:48 Dose: 150 mls/hr Meropenem (Merrem Iv 1 Gm Premix) 50 mls @ 100 mls/hr IVPB Q8 YOLANDA PRN Reason: Protocol Stop: 10/19/17 08:16 Last Admin: 10/11/17 05:18 Dose: 100 mls/hr Vancomycin HCl (Vancomycin 1gm) 1 gm in 250 mls @ 167 mls/hr IVPB DAILY YOLANDA PRN Reason: Protocol Stop: 10/19/17 10:01 Last Admin: 10/11/17 09:20 Dose: 167 mls/hr Insulin Human Regular (Humulin R Low) 0 units SC ACHS YOLANDA PRN Reason: Protocol Last Admin: 10/11/17 08:12 Dose: Not Given - Labs Labs: 10/11/17 06:00 10/11/17 06:00 PT 13.1 SECONDS (9.4-12.5) H 10/10/17 01:15 INR 1.15 (0.93-1.08) H 10/10/17 01:15 APTT 32.7 Seconds (25.1-36.5) 10/10/17 01:15 - Constitutional Appears: Chronically Ill - Head Exam Head Exam: NORMAL INSPECTION - Respiratory Exam Respiratory Exam: Decreased Breath Sounds - Cardiovascular Exam Cardiovascular Exam: +S1, +S2 - GI/Abdominal Exam GI & Abdominal Exam: Soft. absent: Tenderness Assessment and Plan - Assessment and Plan (Free Text) Plan: Assessment severe sepsis due to multifocal lower lobe pneumonia with possible gram positive cocci and/or gram negative bacilli history of right sided HCAP history of C. 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 coli bacteremia and sepsis probably biliary tree in origin History of Klebsiella UTI Plan continue Vancomycin, Merrem day 2 pending final culture results will monitor clinically overall prognosis is poor
--- NOTE | 2017-10-11 19:30 | CON ---
DATE: 10/11/2017 CARDIOLOGY CONSULTATION HISTORY: The patient is a 77-year-old male who presents with pneumonia from the retirement. The patient has advanced Alzheimer dementia. Suffers from documented triple-vessel CAD, hypertension, and has had CHF in the past. He has an ischemic dilated cardiomyopathy documented by a recent echocardiogram which reveals an ejection fraction of 25%. The patient denies shortness of breath. No angina noted. REVIEW OF SYSTEMS: A 14-point review of systems is unavailable. PHYSICAL EXAMINATION: VITAL SIGNS: Blood pressure is 104/68, heart rate is in the 80s. NECK: Negative JVD. LUNGS: Bilateral rhonchi. HEART: S1, S2. EXTREMITIES: Without edema. LABORATORY DATA: BUN and creatinine are 23 and 0.7. The glucose is 129. Hemoglobin is 11.2 with a white count of 6.6. IMPRESSION: 1. Pneumonia. 2. Documented triple-vessel coronary artery disease. 3. No coronary bypass surgery. No intervention was elected for, after discussion with the family due to his severe dementia. 4. Ischemic dilated cardiomyopathy. 5. Anemia. 6. Diabetes mellitus. Given these findings, the patient's cardiac status remains stable at this time. We will continue his current antibiotics. We will add aspirin and statin therapy to his regimen. Janusz Landry MD
[2017-10-11] MEDS: Sodium Chloride 0.9% 1,000 ML IV SCH (22:11)
[2017-10-12] MEDS: Albuterol-Ipratrop 3 mg / 0.5 (3 ml) UD IH SCH ×2 (01:09→07:59)
[2017-10-12] MEDS: Meropenem IV 1 gm in NS 50 ML IVPB SCH (05:32)
[2017-10-12] MEDS: Insulin Reg-LOW-Coverage SC SCH (07:56)
--- NOTE | 2017-10-12 08:12 | PN ---
DATE: 10/12/2017 PULMONARY NOTE SUBJECTIVE: The patient appears comfortable this morning. He is not short of breath at rest. OBJECTIVE: VITAL SIGNS (last noted in the computer): Temperature is 98.9, pulse 62, respirations 20, blood pressure 91/56. Oxygen saturation on nasal cannula is 97%. HEENT: Normocephalic, atraumatic. No JVD. CARDIOVASCULAR: Positive S1, S2. No S3 gallop. LUNGS: Crackles at both bases. Less rhonchi. No wheezing. EXTREMITIES: Mild edema. No cyanosis, no clubbing. Calves are nontender to palpation. GI: Abdomen is soft, nontender and nondistended. Bowel sounds are positive. SKIN: No acute rash. NEUROLOGIC: Exam limited at the present time. IMPRESSION: 1. Sepsis syndrome. 2. Bilateral lower lobe pneumonia. 3. Urinary tract infection. 4. Advanced dementia. 5. Mild anemia. PLAN: The patient appears comfortable this morning. He is not short of breath at rest. He is awake and alert. On physical exam, there is certainly less bronchospasm noted. I will continue with the current nebulizer treatments for now. I will also continue with the aspiration precautions. I would continue with the antibiotic coverage as per Infectious Disease. Input by Dr. Schroeder is noted. The temperatures have now fully resolved. There is no leukocytosis. Clinical status of the patient is certainly improved - compared to the initial presentation. However, again, the future status/prognosis for this patient overall remains poor. I will discuss the above with Dr. Nicholson. Medardo Whittaker MD MTDRogelio
[2017-10-12 08:31] LABS: HEMOGLOBIN 10.4 g/dL (14.0-18.0); MEAN CELL VOLUME 88.6 fl (80.0-105.0); MEAN CORPUSCULAR HEMOGLOBIN 29.6 pg (25.0-35.0); MEAN CORPUSCULAR HGB CONC 33.4 g/dl (31.0-37.0); MEAN PLATELET VOLUME 9.7 fl (7.0-11.0); RBC 3.51 10^6/uL (3.5-6.1); RED CELL DISTRIBUTION WIDTH 14.5 % (11.5-14.5); WHITE BLOOD COUNT 5.3 10^3/ul (4.5-11.0)
[2017-10-12 08:39] LABS: ALB/GLOB RATIO 1.3 (1.1-1.8); ALBUMIN 2.7 g/dL (3.0-4.8); ALT/SGPT 43 U/L (7-56); AST/SGOT 37 U/L (17-59); BLOOD UREA NITROGEN 14 mg/dL (7-21); CALCIUM 8.3 mg/dL (8.4-10.5); GFR AFRICAN-AMERICAN > 60; GFR NON-AFRICAN AMERICAN > 60
[2017-10-12] MEDS: Vancomycin 1gm in NS 250ml 1 GM/250 ML BAG IVPB SCH (09:15)
[2017-10-12 09:19] VITALS: BP 100/64; PULSE 59; RESP 20; TEMP 98.3
[2017-10-12] MEDS ORDERED: Sodium Chloride 0.9% 1,000 ML IV SCH (09:40)
--- NOTE | 2017-10-12 09:58 | PN ---
DATE: 10/12/2017 SUBJECTIVE: I saw him resting comfortably in bed. He is coughing up phlegm, which is good. He is comfortable. He knew me. He is more animated and he is eating better. He is being seen by Infectious Disease, Cardiology and Pulmonary. He is here with multiple issues, bilateral pneumonia, sepsis syndrome, UTI, dementia, diabetes, still having fevers. He is comfortable and smiling which is better than it was when he came in. OBJECTIVE: VITAL SIGNS: Temperature 98.3, 59 pulse, 100/64 blood pressure, 20 respiratory rate, 98% O2 saturation on 3 liters nasal cannula. HEENT: Head is atraumatic, normocephalic. Throat is moist. NECK: Supple. HEART: Regular rate. LUNGS: Decreased breath sounds, congestion, changes with cough or coughing up of the phlegm. ABDOMEN: Soft. EXTREMITIES: No edema. MEDICATIONS: He is on DuoNebs, Ecotrin, insulin, Lipitor, Merrem IV, IV fluids, Tylenol and vancomycin IV. DATA: He has a 5.3 white count, 10.4 hemoglobin, 31.1 hematocrit with 97 platelets. Last lactate was 2.4. He has a 141 sodium, potassium 3.9, BUN is 14, creatinine 0.6 and better. GFR is greater than 60. Sugar is 127, calcium is 8.3, total bili is 0.7, AST is 37, ALT is 43, alkaline phosphatase 51 and total protein is 4.1. Moderate leukocytes on the urine so as per Infectious Disease and Pulmonary and Cardio. When Infectious Disease states they could [facility], I will allow that to happen and hopefully it could be either today or tomorrow. This is a patient here with multiple issues. Sean Nicholson DO MTDD
--- NOTE | 2017-10-12 10:05 | DS ---
HISTORY OF PRESENT ILLNESS: He is doing well. He is on IV antibiotics. He is improving clinically. More alert and eating better and breathing better. I discussed it with the Infectious Disease. He can be discharged back to [facility] [place] for 7 more days of IV antibiotics. He will be on DuoNebs, Ecotrin, insulin, Lipitor, Merrem IV, 7 more days of IV fluids, Tylenol and vancomycin. LABORATORY DATA: He has a 5.3 white count, 10.4 hemoglobin, 31.1 hematocrit with 97 platelets. He has a 141 sodium, potassium 3.9, BUN is 14, creatinine 0.6, GFR is greater than 60, sugar is 127, calcium is 8.3, total bili is 0.7, AST is 37, ALT is 43, alk phos 51, total protein is 4.8. PHYSICAL EXAMINATION: VITAL SIGNS: He has a 98.3 temp, 69 pulse, 100/64 blood pressure, 20 respiratory rate, 98% O2 sat on room air. HEENT: His head is atraumatic, normocephalic. HEART: Regular rate. LUNGS: Decreased breath sounds. Mild congestion, but clears with cough, changes. ABDOMEN: Soft. EXTREMITIES: No edema. ASSESSMENT AND PLAN: He will be discharged back to [facility] [place] today. He has got bilateral pneumonia, urinary tract infection, sepsis syndrome, diabetes, dementia. We will follow him over there. He will have 7 days more of antibiotics. Sean Nicholson DO
--- NOTE | 2017-10-12 11:09 | PN ---
DATE: 10/12/2017 CARDIOLOGY FOLLOWUP SUBJECTIVE: The patient is without shortness of breath, without chest pain. PHYSICAL EXAMINATION: VITAL SIGNS: Blood pressure is 100/64, heart rate is in the 60s. NECK: Negative JVD. LUNGS: Without rales. HEART: S1, S2. EXTREMITIES: Without edema. DATA: Hemoglobin is 10.4 with a white count of 5.3. BUN and creatinine are unremarkable. IMPRESSION: 1. Pneumonia. 2. Stable angina. 3. History of triple-vessel coronary artery disease, treated medically. 4. Ischemic dilated cardiomyopathy. 5. Anemia. 6. Diabetes mellitus. Given these findings, the patient's cardiac status is stable at this time. No active issues. From a cardiac perspective, no further workup is indicated at this time. Janusz Landry MD
--- NOTE | 2017-10-12 13:40 | PN ---
DATE: 10/12/2017 SUBJECTIVE: Patient is in bed, in no acute distress, nontoxic. No fevers and chills. OBJECTIVE: VITAL SIGNS: Temperature is 98, blood pressure is 100/60, respiratory rate of 18, heart rate of 88. HEENT: Unremarkable. NECK: Supple. LUNGS: Decreased breath sounds. HEART: Normal S1, S2. ABDOMEN: Soft, nontender. LABORATORY EXAMINATION: Reveals a white count of 5.3, hemoglobin of 10. BUN of 14, creatinine of 0.6. Urinalysis noted. Microbiology reveals the blood cultures are negative. Urine cultures are negative. ASSESSMENT AND PLAN: A 77-year-old male who was seen earlier today in room 376, bed 2, with severe sepsis due to multifocal lower lobe pneumonia, possible Gram-positive cocci, possible Gram-negative jade, on vancomycin, meropenem, day #3 with complete 4 to 7 days of antibiotics in this patient who has negative cultures and elevated procalcitonin. The patient with depression, bowel obstruction, history of hemolytic anemia, history of prostate cancer, Alzheimer's, biliary stent placement, history of extended-spectrum beta-lactamase, Escherichia coli bacteremia, ascending cholangitis, history of Haylee albicans fungemia. Overall prognosis quite poor. Case discussed with Dr. Sean Nicholson. Patient should have vanco levels, creatinine, and renal function monitoring with short course of antibiotics. Padilla Goode MD
[2017-10-12 15:45] VITALS: O2SAT 88
--- NOTE | 2017-10-12 15:45 | IP.NPCORE ---
Pneumonia Progress Notes - Oxygenation Assessment (REQUIRED) O2 Saturation: 88 Oxygen Delivery Method: Nasal Cannula Date: 10/10/17 - Blood Cultures (REQUIRED) Culture drawn: Yes Date:: 10/10/17 Time:: 01:30 - Initial Antibiotic Initial Antibiotic given within Four Hours:: Yes Date:: 10/10/17 Time:: 03:45 - Appropriate Antibiotic Appropriate Antibiotic within 24 hours of Admission:: Yes No change in antibiotics: Yes - Smoking Cessation Smoking Cessation counseling provided:: No (n/a) Ex-Smoker (has not smoked in the last 12 months): No Current Smoker - smoking cessation education provided: No
== END 2017-10-12 12:13 | DRG 871 ==
LOC: ED 00:52 → ERH 02:43 → 3RSO 05:04
PROVIDERS: ADMIT Family Medicine; ATTEND Family Medicine
PROC: 05HY33Z Insertion of Infusion Device into Upper Vein, Percutaneous Approach (ICD-10-PCS; principal; 2017-10-11)
DX: A41.9 Sepsis, unspecified organism (principal); J18.9 Pneumonia, unspecified organism; N39.0 Urinary tract infection, site not specified; D58.9 Hereditary hemolytic anemia, unspecified; I42.0 Dilated cardiomyopathy; K56.609 Unspecified intestinal obstruction, unspecified as to partial versus complete obstruction; R64 Cachexia; R65.20 Severe sepsis without septic shock; E11.51 Type 2 diabetes mellitus with diabetic peripheral angiopathy without gangrene; G30.9 Alzheimer's disease, unspecified; F02.80 Dementia in other diseases classified elsewhere, unspecified severity, without behavioral disturbance, psychotic disturbance, mood disturbance, and anxiety; E03.9 Hypothyroidism, unspecified; F32.89 Other specified depressive episodes; I11.0 Hypertensive heart disease with heart failure; I25.118 Atherosclerotic heart disease of native coronary artery with other forms of angina pectoris; I25.5 Ischemic cardiomyopathy; I50.9 Heart failure, unspecified; K21.9 Gastro-esophageal reflux disease without esophagitis; Z79.82 Long term (current) use of aspirin; Z80.8 Family history of malignant neoplasm of other organs or systems; Z82.49 Family history of ischemic heart disease and other diseases of the circulatory system; Z85.820 Personal history of malignant melanoma of skin; Z86.19 Personal history of other infectious and parasitic diseases; Z87.01 Personal history of pneumonia (recurrent); Z85.46 Personal history of malignant neoplasm of prostate; Z87.440 Personal history of urinary (tract) infections; Z87.891 Personal history of nicotine dependence

== ENCOUNTER 2017-12-22 18:11 | Inpatient (IN) | payer MEDICARE, MEDICAID ==
--- NOTE | 2017-12-22 18:42 | ED PDOC ---
Arrival/HPI - General Chief Complaint: Fever Time Seen by Provider: 12/22/17 18:20 Historian: Spouse, Mcc EM Caveat: Dementia - History of Present Illness Narrative History of Present Illness (Text): 12/22/17 18:41 77 year old male whose past medical history includes Alzheimer's, CHF, and hyperlipidemia, who presents to the Emergency department with POA for pneumonia evaluation. Patient had a previous admission for pneumonia/sepsis, and comes from [facility] for fever and pneumonia. As per [facility] records patient had a fever today and underwent a Chest X-ray which showed infiltrates. He was subsequently sent in for further evaluation. POA is at bedside and states patient is full code. Limited HPI and ROS due to patient's dementia. Time/Duration: Other (Today) Symptom Onset: Sudden Symptom Course: Unchanged Context: Other (detention) Past Medical History - Provider Review Nursing Documentation Reviewed: Yes - Infectious Disease Hx of Infectious Diseases: None - Cardiac Hx Pacemaker: No - Pulmonary Hx Chronic Obstructive Pulmonary Disease (COPD): No Hx Pneumonia: Yes - Neurological HX Cerebrovascular Accident: No Hx Dementia: Yes - HEENT Hx HEENT Disorder: No Hx Blind: No Hx Cataracts: No Hx Deafness: No Hx Difficulty Chewing: No Hx Epistaxis: No Hx Glaucoma: No Hx Macular Degeneration: No - Renal Hx Renal Failure: Yes - Endocrine/Metabolic Hx Diabetes Mellitus Type 2: Yes Hx Hypothyroidism: Yes - Hematological/Oncological Hx Cancer: No - Integumentary Hx Dermatological Disorder: Yes Hx Basal Cell Carcinoma: No Hx Eczema: Yes Hx Melanoma: Yes Hx Psoriasis: No Hx Squamous Cell Carcinoma: No - Musculoskeletal/Rheumatological Hx Arthritis: No - Gastrointestinal Hx Gastroesophageal Reflux: Yes - Genitourinary/Gynecological Hx Hematuria: No Hx Incontinence: Yes Hx Prostate Problems: Yes Hx Sexually Transmitted Diseases: No Hx Urinary Tract Infection: Yes - Psychiatric Hx Psychophysiologic Disorder: No Hx Anxiety: No Hx Bipolar Disorder: No Hx Depression: No Hx Emotional Abuse: No Hx Hallucinations: No Hx Panic Disorder: No Hx Post Traumatic Stress Disorder: No Hx Psychosis: No Hx Physical Abuse: No Hx Schizophrenia: No Hx Sexual Abuse: No Hx Substance Use: No - Surgical History Hx Mastectomy: No - Anesthesia Hx Anesthesia Reactions: No Hx Malignant Hyperthermia: No - Suicidal Assessment Feels Threatened In Home Enviroment: No Family/Social History - Physician Review Nursing Documentation Reviewed: Yes Family/Social History: No Known Family HX Smoking Status: Former Smoker Hx Alcohol Use: No Hx Substance Use: No Allergies/Home Meds Allergies/Adverse Reactions: Allergies ceftriaxone sodium [From Rocephin] Allergy (Verified 10/10/17 01:09) RASH Home Medications: Home Meds Medication Instructions Recorded Confirmed RX: Aspirin [Adult Low Dose 81 mg PO DAILY 08/21/16 12/22/17 Aspirin EC] RX: Donepezil [Aricept] 10 mg PO HS 08/21/16 12/22/17 RX: Ferrous Sulfate [Feosol] 324 mg PO DAILY 08/21/16 12/22/17 RX: Levothyroxine [Synthroid] 75 mcg PO DAILY 08/21/16 12/22/17 RX: Magnesium Hydroxide [Milk Of 30 ml PO PRN PRN 08/21/16 12/22/17 Magnesia] RX: Metoprolol Tartrate [Lopressor] 12.5 mg PO BID 08/21/16 12/22/17 RX: Acetaminophen [Pain Reliever] 650 mg PO Q4 PRN 10/19/16 12/22/17 RX: Atorvastatin [Lipitor] 40 mg PO HS 09/09/17 12/22/17 RX: Cetirizine HCl [Allergy] 10 mg PO DAILY 09/09/17 12/22/17 RX: Montelukast [Singulair] 10 mg PO DAILY 10/10/17 12/22/17 Alogliptin Benzoate [Alogliptin] 1 tab PO DAILY 12/22/17 12/22/17 Tamsulosin [Flomax] 1 cap PO DAILY 12/22/17 12/22/17 Review of Systems - Review of Systems Systems not reviewed;Unavailable: Dementia Physical Exam Vital Signs Reviewed: Yes Temperature: Afebrile Blood Pressure: Normal Pulse: Regular Respiratory Rate: Normal Appearance: Positive for: Other (chronically ill appearing) Mental Status: Positive for: Alert and Oriented X 3 - Systems Exam Head: Present: Atraumatic, Normocephalic Pupils: Present: PERRL Extroacular Muscles: Present: EOMI Conjunctiva: Present: Normal Mouth: Present: Moist Mucous Membranes Neck: Present: Normal Range of Motion Respiratory/Chest: Present: Good Air Exchange, Rhonchi (Diffuse Rhonchi). No: Respiratory Distress, Accessory Muscle Use Cardiovascular: Present: Regular Rate and Rhythm, Normal S1, S2. No: Murmurs Abdomen: No: Tenderness, Distention, Peritoneal Signs Back: Present: Normal Inspection Upper Extremity: Present: Normal Inspection. No: Cyanosis, Edema Lower Extremity: Present: Normal Inspection. No: Edema Neurological: Present: GCS=15, CN II-XII Intact, Speech Normal Skin: Present: Warm, Dry, Normal Color. No: Rashes Psychiatric: Present: Alert, Oriented x 3, Normal Insight, Normal Concentration Medical Decision Making ED Course and Treatment: 12/22/17 18:41 Impression: Patient is a 77 year old male who presents for Pneumonia and fever evaluation. Differential Diagnosis included but are not limited to: Plan: -- VBG -- EKG -- Cardiac enzymes -- Labs -- BLood work -- Chest X-ray -- Duoneb -- Cipofloxacin -- Reassess and disposition Prior Visits: Notes and results from previous visits were reviewed. Patient was last seen in the emergency department on 10/10/17 and was hospitalized for pneumonia. Progress Notes: 12/22/17 18:49 Discussed case with , who is aware of and accepts patient under his service. 12/22/17 20:00 EKG shows NSR at [address]/T wave changes. Interpreted by me. 12/23/17 11:26 codes sepsis activated. pt does not require 30cc /kg bolus at this itme, given stable hemodynamics - Lab Interpretations I have reviewed the lab results: Yes - RAD Interpretation Narrative RAD Interpretations (Text): 12/22/17 19:40 Chest X-ray shows right sided infiltrate. Interpreted by me. [employer]: ED Physician - EKG Interpretation Interpreted by ED Physician: Yes Type: 12 lead EKG - Scribe Statement The provider has reviewed the documentation as recorded by the Scribe Vimal Ross Provider Scribe Attestation: All medical record entries made by the Scribe were at my direction and personally dictated by me. I have reviewed the chart and agree that the record accurately reflects my personal performance of the history, physical exam, medical decision making, and the department course for this patient. I have also personally directed, reviewed, and agree with the discharge instructions and disposition. Disposition/Present on Arrival - Present on Arrival Any Indicators Present on Arrival: No History of DVT/PE: No History of Uncontrolled Diabetes: No Urinary Catheter: Yes History of Decub. Ulcer: No History Surgical Site Infection Following: None - Disposition Have Diagnosis and Disposition been Completed?: Yes Diagnosis: Pneumonia, Sepsis, UTI (urinary tract infection), NSTEMI (non-ST elevated myocardial infarction) Disposition: HOSPITALIZED Disposition Time: 07:00 Condition: CRITICAL
[2017-12-22] MEDS ORDERED: Ciprofloxacin 400mg/200ml D5W 400 MG/200 ML BAG IVPB STA (18:43)
[2017-12-22] MEDS ORDERED: Sodium Chloride 0.9% 500 ML IV STA (18:43)
[2017-12-22] MEDS ORDERED: Vancomycin 1gm in NS 250ml 1 GM/250 ML BAG IVPB STA (18:43)
[2017-12-22] MEDS ORDERED: metroNIDAZOLE IV 500 mg/100 ml 500 MG/100 ML BAG IVPB STA (18:43)
[2017-12-22] MEDS ORDERED: Albuterol-Ipratrop 3 mg / 0.5 (3 ml) UD IH STA (18:46)
[2017-12-22 19:37] LABS: VENOUS BLOOD GAS BASE EXCESS 0.1 mmol/L (0.0-2.0); VENOUS BLOOD GAS PO2 29 mm/Hg (30-55); VENOUS BLOOD PH 7.28 (7.32-7.43)
[2017-12-22 19:46] LABS: ALB/GLOB RATIO 1.8 (1.1-1.8); ALBUMIN 3.9 g/dL (3.0-4.8); ALT/SGPT 24 U/L (7-56); AST/SGOT 27 U/L (17-59); BLOOD UREA NITROGEN 20 mg/dL (7-21); CALCIUM 9.6 mg/dL (8.4-10.5); GFR NON-AFRICAN AMERICAN > 60
[2017-12-22 19:48] LABS: BASO # 0.01 K/mm3 (0.0-2.0); BASO % 0.2 % (0.0-3.0); EOS % 0.3 % (1.5-5.0); GRAN # 5.04 (1.4-6.5); GRAN % 81.9 % (50.0-68.0); LYMPH # 0.6 (1.2-3.4); LYMPH % 9.3 % (22.0-35.0); MEAN CELL VOLUME 88.8 fl (80.0-105.0); MEAN CORPUSCULAR HEMOGLOBIN 30.7 pg (25.0-35.0); MEAN CORPUSCULAR HGB CONC 34.6 g/dl (31.0-37.0); MEAN PLATELET VOLUME 9.5 fl (7.0-11.0); MONO # 0.5 (0.1-0.6); MONO % 8.3 % (1.0-6.0); RBC 4.56 10^6/uL (3.5-6.1); RED CELL DISTRIBUTION WIDTH 15.4 % (11.5-14.5); WHITE BLOOD COUNT 6.2 10^3/ul (4.5-11.0)
[2017-12-22 19:49] LABS: URINE APPEARANCE TURBID (CLEAR); URINE BILIRUBIN NEGATIVE (NEGATIVE); URINE BLOOD TRACE-INTACT (NEGATIVE); URINE COLOR YELLOW (YELLOW); URINE GLUCOSE (UA) NEGATIVE (NEGATIVE); URINE LEUKOCYTE ESTERASE LARGE Leu/uL (NEGATIVE); URINE PROTEIN TRACE mg/dL (<30 mg/dL); URINE UROBILINOGEN 0.2 E.U./dL (<1 E.U./dL)
[2017-12-22 19:53] LABS: URINE RBC 0 - 2 /hpf (0-2); URINE WBC TNTC /hpf (0-6)
[2017-12-22 19:57] LABS: INR 1.31; PARTIAL THROMBOPLASTIN TIME 30.2 Seconds (25.1-36.5)
[2017-12-22 20:05] LABS: B-TYPE NATRIURETIC PEPTIDE 1730 pg/mL (0-450); TROPONIN I 0.13 ng/mL
[2017-12-22] MEDS ORDERED: Enoxaparin 80 mg Syringe SC STA (21:09)
[2017-12-22] MEDS ORDERED: Albuterol-Ipratrop 3 mg / 0.5 (3 ml) UD IH PRN (22:57)
[2017-12-22 23:03] LABS: VENOUS BLOOD GAS BASE EXCESS 0.3 mmol/L (0.0-2.0); VENOUS BLOOD GAS PO2 51 mm/Hg (30-55); VENOUS BLOOD PH 7.35 (7.32-7.43)
[2017-12-22] MEDS ORDERED: Magnesium Hydroxide Susp 30 ml UD PO PRN (23:07)
[2017-12-22] MEDS: Sodium Chloride 0.9% 1,000 ML IV SCH (23:18)
--- NOTE | 2017-12-23 00:34 | CP.PCM.CON ---
<Shantanu Mina - Last Filed: 12/23/17 08:55> History of Present Illness - History of Present Illness History of Present Illness: CONSULT NOTE FOR ICU ADMISSION Shantanu Mina D.O. PGY-1 CC: Fever, SOB @ Nursing care. BIB EMS 77 y/o M with PMHx of R lower lobe pneumonia, c. albicans fungemia, alzheimers dementia, CHF, CAD, HLD, MDS, hemolytic anemia, prostate cancer s/p brachytherapy presents to [facility] after he found to have temp of 103F at [facility]. Pt is a limited historian due to his dementia, history obtained [facility] and present at bedside. Pt was recently admitted for R lower lobe pneumonia and treated with IV abx. present at bedside reports pt [facility]. His is demented at baseline and requires assistance with ADLs. Pt unable to provide ROS due to mental status. PMH: R lower lobe pneumonia, c. albicans fungemia, alzheimers dementia, CHF, CAD, HLD, MDS, hemolytic anemia, prostate cancer s/p brachytherap ALL: Ceftriaxone PSH: Unclear abdominal surgery when patient had SBO - no record of this in EMR, ERCP SH: Former cigar/pipe smoker, quit 30 years ago, no EtOH or illicit drug use Hosp: 09/09/17: treated for R-sided multifocal HCAP FH: Mother - ovarian cancer, colon cancer (@85yo); Father - Aortic aneurysm Meds: See MAY. Updated from [facility] medication list Code Status: Full Code Daughter (POA): Alyssia: [phone] Review of Systems - Review of Systems Review of Systems: 12-point ROS unable to obtain due to pts mental status Past Patient History - Infectious Disease Hx of Infectious Diseases: None - Past Social History Smoking Status: Former Smoker - CARDIAC Hx Cardiac Disorders: Yes Hx Congestive Heart Failure: Yes Hx Hypertension: Yes Hx Internal Defibrillator: Yes Hx Peripheral Vascular Disease: Yes Other/Comment: [place], CABG - PULMONARY Hx Chronic Obstructive Pulmonary Disease (COPD): No Hx Pneumonia: Yes - NEUROLOGICAL HX Cerebrovascular Accident: No Hx Dementia: Yes - HEENT Hx HEENT Problems: No Hx Blind: No Hx Cataracts: No Hx Deafness: No Hx Difficulty Chewing: No Hx Epistaxis: No Hx Glaucoma: No Hx Macular Degeneration: No - RENAL Hx Renal Failure: Yes - ENDOCRINE/METABOLIC Hx Diabetes Mellitus Type 2: Yes Hx Hypothyroidism: Yes - HEMATOLOGICAL/ONCOLOGICAL Hx Cancer: No - INTEGUMENTARY Hx Dermatological Problems: Yes Hx Basil Cell: No Hx Eczema: Yes Hx Melanoma: Yes Hx Psoriasis: No Hx Squamous Cell: No - MUSCULOSKELETAL/RHEUMATOLOGICAL Hx Arthritis: No - GASTROINTESTINAL Hx Gastroesophageal Reflux: Yes - GENITOURINARY/GYNECOLOGICAL Hx Hematuria: No Hx Incontinence: Yes Hx Prostate Problems: Yes Hx Sexually Transmitted Disorders: No Hx Urinary Tract Infection: Yes - PSYCHIATRIC Hx Psychophysiologic Disorder: No Hx Anxiety: No Hx Bipolar Disorder: No Hx Depression: No Hx Emotional Abuse: No Hx Hallucinations: No Hx Panic Symptoms: No Hx Post Traumatic Stress Disorder: No Hx Psychosis: No Hx Physical Abuse: No Hx Schizophrenia: No Hx Sexual Abuse: No - SURGICAL HISTORY Hx Surgeries: Yes Hx Coronary Stent: Yes Hx Open Heart Surgery: Yes - ANESTHESIA Hx Anesthesia Reactions: No Hx Malignant Hyperthermia: No Meds Allergies/Adverse Reactions: Allergies Allergy/AdvReac Type Severity Reaction Status Date / Time ceftriaxone sodium Allergy RASH Verified 10/10/17 01:09 [From Rocephin] - Medications Medications: Current Medications Albuterol/Ipratropium (Duoneb 3 Mg/0.5 Mg (3 Ml) Ud) 3 ml IH Q2H PRN PRN Reason: Shortness of Breath Aspirin (Ecotrin) 81 mg PO DAILY [facility] Atorvastatin Calcium (Lipitor) 40 mg PO HS [facility] Donepezil HCl (Aricept) 10 mg PO HS [facility] Enoxaparin Sodium (Lovenox) 40 mg SC DAILY [facility]; Protocol Ferrous Sulfate (Feosol) 324 mg PO DAILY [facility] Sodium Chloride (Sodium Chloride 0.9%) 1,000 mls @ 75 mls/hr IV .[id number] [facility] Last Admin: 12/22/17 23:18 Dose: 75 mls/hr Levofloxacin/Dextrose (Levaquin 750mg) 750 mg in 150 mls @ 100 mls/hr IVPB DAILY [facility]; Protocol Levothyroxine Sodium (Synthroid) 75 mcg PO 0600 [facility] Montelukast Sodium (Singulair) 10 mg PO DAILY [facility] Pantoprazole Sodium (Protonix Inj) 40 mg IVP DAILY [facility] Physical Exam - Constitutional Appears: No Acute Distress, Confused, Chronically Ill - Head Exam Head Exam: NORMAL INSPECTION, NORMOCEPHALIC - Eye Exam Eye Exam: EOMI, Normal appearance - ENT Exam ENT Exam: Mucous Membranes Moist, Normal Exam - Neck Exam Neck exam: Positive for: Normal Inspection. Negative for: Meningismus - Respiratory Exam Respiratory Exam: Rhonchi (b/l), NORMAL BREATHING PATTERN - Cardiovascular Exam Cardiovascular Exam: REGULAR RHYTHM, +S1, +S2 - GI/Abdominal Exam GI & Abdominal Exam: Soft. absent: Tenderness Additional comments: 4cm vertical incision scar noted, well-healed, clean/dry/intact - Extremities Exam Extremities exam: Positive for: normal inspection, pedal pulses present. Negative for: calf tenderness - Back Exam Back exam: NORMAL INSPECTION - Neurological Exam Neurological exam: Altered - Psychiatric Exam Psychiatric exam: Flat Affect - Skin Skin Exam: Dry, Intact, Warm Results - Vital Signs Recent Vital Signs: Last Vital Signs Temp 98.1 F 12/22/17 23:40 Pulse 84 12/22/17 23:40 Resp 18 12/22/17 23:40 BP 106/66 12/22/17 23:40 Pulse Ox 94 L 12/22/17 23:40 - Labs Result Diagrams: 12/22/17 19:20 12/22/17 19:20 Labs: Laboratory Results - last 24 hr 12/22/17 12/22/17 12/22/17 19:20 19:20 19:20 WBC 6.2 RBC 4.56 Hgb 14.0 D Hct 40.5 L MCV 88.8 MCH 30.7 MCHC 34.6 RDW 15.4 H Plt Count 82 L MPV 9.5 Gran % 81.9 H Lymph % (Auto) 9.3 L [place] % (Auto) 8.3 H Eos % (Auto) 0.3 L Baso % (Auto) 0.2 Gran # 5.04 Lymph # (Auto) 0.6 L [place] # (Auto) 0.5 Eos # (Auto) 0.0 Baso # (Auto) 0.01 PT 15.0 H INR 1.31 APTT 30.2 pO2 VBG pH VBG pCO2 VBG HCO3 VBG Total CO2 VBG O2 Sat (Calc) VBG Base Excess VBG Potassium Glucose Lactate FiO2 Sodium 139 Potassium 5.3 H Chloride 101 Carbon Dioxide 27 Anion Gap 16 BUN 20 Creatinine 1.0 Est GFR ( Amer) > 60 Est GFR (Non-Af Amer) > 60 Random Glucose 146 H Calcium 9.6 Magnesium 1.8 Total Bilirubin 2.6 H AST 27 ALT 24 Alkaline Phosphatase 61 Lactate Dehydrogenase 422 Total Creatine Kinase 29 L Troponin I 0.13 H* D NT-Pro-B Natriuret Pep 1730 H Total Protein 6.1 Albumin 3.9 Globulin 2.2 Albumin/Globulin Ratio 1.8 Venous Blood Potassium Urine Color Urine Appearance Urine pH Ur Specific Francis Urine Protein Urine Glucose (UA) Urine Ketones Urine Blood Urine Nitrate Urine Bilirubin Urine Urobilinogen Ur Leukocyte Esterase Urine RBC Urine WBC Urine Other 12/22/17 12/22/17 12/22/17 19:29 19:41 23:00 WBC RBC Hgb Hct MCV MCH MCHC RDW Plt Count MPV Gran % Lymph % (Auto) [place] % (Auto) Eos % (Auto) Baso % (Auto) Gran # Lymph # (Auto) [place] # (Auto) Eos # (Auto) Baso # (Auto) PT INR APTT pO2 29 L 51 VBG pH 7.28 L 7.35 VBG pCO2 60.0 48.0 VBG HCO3 28.2 H 26.5 VBG Total CO2 30.0 H 28.0 VBG O2 Sat (Calc) 50.3 85.8 H VBG Base Excess 0.1 0.3 VBG Potassium 4.6 4.3 Glucose 147 H 175 H Lactate 5.3 H* 4.0 H* FiO2 21.0 21.0 Sodium 136.0 135.0 Potassium Chloride 102.0 103.0 Carbon Dioxide Anion Gap BUN Creatinine Est GFR ( Amer) Est GFR (Non-Af Amer) Random Glucose Calcium Magnesium Total Bilirubin AST ALT Alkaline Phosphatase Lactate Dehydrogenase Total Creatine Kinase Troponin I NT-Pro-B Natriuret Pep Total Protein Albumin Globulin Albumin/Globulin Ratio Venous Blood Potassium 4.6 4.3 Urine Color Yellow Urine Appearance Turbid Urine pH 6.0 Ur Specific Francis 1.025 Urine Protein Trace H Urine Glucose (UA) Negative Urine Ketones Negative Urine Blood Trace-intact H Urine Nitrate Negative Urine Bilirubin Negative Urine Urobilinogen 0.2 Ur Leukocyte Esterase Large H Urine RBC 0 - 2 Urine WBC Tntc Urine Other Uyeast Assessment & Plan - Assessment and Plan (Free Text) Assessment: 77 y/o M with PMHx of R lower lobe pneumonia, c. albicans fungemia, alzheimers dementia, CHF, CAD, HLD, MDS, hemolytic anemia, prostate cancer admitted to ICU for pneumonia with elevated lactate, UTI and NSTEMI. Pt was recently admitted in 08/2017 for multifocal RLL pneumonia and treated with IV abx. In the ED, pt was treated with vancomycin, ciprofloxacin, metronidazole, therapeutic dose of lovenox and a duoneb treatment. Pt. was evaluated and accepted for ICU admission. F/u abg was obtained which showed improvement in lactate from 5.3 to 4. Pt was continued on vancomycin and zosyn for anaerobic coverage (aspiration pna). Plan: PNA Continue vanc/zosyn Lactate 5.3 --> 4.0. Likely type b lactic acidosis. Continue NS @75mls/hr Evaluate for aspiration. f/u swallow evaluation Duoneb tx given in ED. Continue duoneb prn f/u MRSA screen f/u blood cultures f/u sputum cx f/u procalcitonin f/u repeat cxray Consult ID: f/u recs Troponitis Lovenox 70mg given in ED. Likely secondary to ischemic demand Initial troponin 0.13. Trended down to 0.09. Continue to trend Trend EKG q6h f/u swallow eval for po meds UTI U/A f/u urine cx Continue vanc/zosyn f/u procalcitonin f/u ID recs Hyperkalemia Administer 10u with D5 trend CMP CHF Echo 04/19/17: ~25.9% EF BNP: 1730 CAD s/p cath 06/12/16 severe triple vessel disease. CABG vs multivessel PTCA? Consult cardiology: appreciate recs Resume po pending swallow eval HLD Resume po meds post swallow eval MDS resume ferrous sulfate post swallow eval Alzheimers dementia Continue home meds pending swallow eval DVT/GI ppx: Lovenox/protonix Case seen, examined and discussed with attending physician, Dr. Mcknight <Juan Mcknight - Last Filed: 12/23/17 19:17> Meds - Medications Medications: Current Medications Acetylcysteine (Acetylcysteine 20%) 4 ml IH [id number] [facility] Last Admin: 12/23/17 12:59 Dose: 4 ml Albuterol Sulfate (Albuterol 0.083% Inhal Ronda (2.5 Mg/3 Ml) Ud) 2.5 mg IH [id number] [facility] Last Admin: 12/23/17 12:59 Dose: 2.5 mg Albuterol/Ipratropium (Duoneb 3 Mg/0.5 Mg (3 Ml) Ud) 3 ml IH Q2H PRN PRN Reason: Shortness of Breath Aspirin (Aspirin Supp) 300 mg RC DAILY [facility] Atorvastatin Calcium (Lipitor) 40 mg PO HS [facility] Last Admin: 12/22/17 23:55 Dose: Not Given Budesonide (Pulmicort Respules) 0.5 mg IH [id number] [facility] Last Admin: 12/23/17 07:20 Dose: 0.5 mg Sodium Chloride (Sodium Chloride 0.9%) 1,000 mls @ 75 mls/hr IV .[id number] [facility] Last Admin: 12/23/17 12:52 Dose: 75 mls/hr Vancomycin HCl (Vancomycin 1gm) 1 gm in 250 mls @ 167 mls/hr IVPB DAILY [facility]; Protocol Last Admin: 12/23/17 09:38 Dose: 167 mls/hr Levofloxacin/Dextrose (Levaquin 750mg) 750 mg in 150 mls @ 100 mls/hr IVPB DAILY [facility]; Protocol Stop: 01/01/18 11:47 Last Admin: 12/23/17 12:25 Dose: 100 mls/hr Meropenem (Merrem Iv 1 Gm Premix) 1 gm in 50 mls @ 12.5 mls/hr IVPB Q8 [facility]; Protocol Stop: 01/01/18 14:01 Last Admin: 12/23/17 17:18 Dose: 12.5 mls/hr Pantoprazole Sodium (Protonix Inj) 40 mg IVP DAILY [facility] Last Admin: 12/23/17 09:39 Dose: 40 mg Results - Vital Signs Recent Vital Signs: Last Vital Signs Temp 97.8 F 12/23/17 12:00 Pulse 70 12/23/17 14:00 Resp 24 12/23/17 12:56 BP 121/80 12/23/17 13:00 Pulse Ox 100 12/23/17 13:10 - Labs Result Diagrams: 12/23/17 16:11 12/23/17 16:11 Labs: Laboratory Results - last 24 hr 12/22/17 12/22/17 12/22/17 19:20 19:20 19:20 WBC 6.2 RBC 4.56 Hgb 14.0 D Hct 40.5 L MCV 88.8 MCH 30.7 MCHC 34.6 RDW 15.4 H Plt Count 82 L MPV 9.5 Gran % 81.9 H Lymph % (Auto) 9.3 L [place] % (Auto) 8.3 H Eos % (Auto) 0.3 L Baso % (Auto) 0.2 Gran # 5.04 Lymph # (Auto) 0.6 L [place] # (Auto) 0.5 Eos # (Auto) 0.0 Baso # (Auto) 0.01 PT 15.0 H INR 1.31 APTT 30.2 pO2 VBG pH VBG pCO2 VBG HCO3 VBG Total CO2 VBG O2 Sat (Calc) VBG Base Excess VBG Potassium Glucose Lactate FiO2 Sodium 139 Potassium 5.3 H Chloride 101 Carbon Dioxide 27 Anion Gap 16 BUN 20 Creatinine 1.0 Est GFR ( Amer) > 60 Est GFR (Non-Af Amer) > 60 POC Glucose (mg/dL) Random Glucose 146 H Calcium 9.6 Phosphorus Magnesium 1.8 Total Bilirubin 2.6 H AST 27 ALT 24 Alkaline Phosphatase 61 Lactate Dehydrogenase 422 Total Creatine Kinase 29 L Troponin I 0.13 H* D NT-Pro-B Natriuret Pep 1730 H Total Protein 6.1 Albumin 3.9 Globulin 2.2 Albumin/Globulin Ratio 1.8 Procalcitonin TSH 3rd Generation Venous Blood Potassium Urine Color Urine Appearance Urine pH Ur Specific Francis Urine Protein Urine Glucose (UA) Urine Ketones Urine Blood Urine Nitrate Urine Bilirubin Urine Urobilinogen Ur Leukocyte Esterase Urine RBC Urine WBC Urine Other 12/22/17 12/22/17 12/22/17 19:22 19:29 19:41 WBC RBC Hgb Hct MCV MCH MCHC RDW Plt Count MPV Gran % Lymph % (Auto) [place] % (Auto) Eos % (Auto) Baso % (Auto) Gran # Lymph # (Auto) [place] # (Auto) Eos # (Auto) Baso # (Auto) PT INR APTT pO2 29 L VBG pH 7.28 L VBG pCO2 60.0 VBG HCO3 28.2 H VBG Total CO2 30.0 H VBG O2 Sat (Calc) 50.3 VBG Base Excess 0.1 VBG Potassium 4.6 Glucose 147 H Lactate 5.3 H* FiO2 21.0 Sodium 136.0 Potassium Chloride 102.0 Carbon Dioxide Anion Gap BUN Creatinine Est GFR ( Amer) Est GFR (Non-Af Amer) POC Glucose (mg/dL) 153 H Random Glucose Calcium Phosphorus Magnesium Total Bilirubin AST ALT Alkaline Phosphatase Lactate Dehydrogenase Total Creatine Kinase Troponin I NT-Pro-B Natriuret Pep Total Protein Albumin Globulin Albumin/Globulin Ratio Procalcitonin TSH 3rd Generation Venous Blood Potassium 4.6 Urine Color Yellow Urine Appearance Turbid Urine pH 6.0 Ur Specific Francis 1.025 Urine Protein Trace H Urine Glucose (UA) Negative Urine Ketones Negative Urine Blood Trace-intact H Urine Nitrate Negative Urine Bilirubin Negative Urine Urobilinogen 0.2 Ur Leukocyte Esterase Large H Urine RBC 0 - 2 Urine WBC Tntc Urine Other Uyeast 12/22/17 12/23/17 12/23/17 23:00 00:55 02:37 WBC RBC Hgb Hct MCV MCH MCHC RDW Plt Count MPV Gran % Lymph % (Auto) [place] % (Auto) Eos % (Auto) Baso % (Auto) Gran # Lymph # (Auto) [place] # (Auto) Eos # (Auto) Baso # (Auto) PT INR APTT pO2 51 VBG pH 7.35 VBG pCO2 48.0 VBG HCO3 26.5 VBG Total CO2 28.0 VBG O2 Sat (Calc) 85.8 H VBG Base Excess 0.3 VBG Potassium 4.3 Glucose 175 H Lactate 4.0 H* FiO2 21.0 Sodium 135.0 Potassium Chloride 103.0 Carbon Dioxide Anion Gap BUN Creatinine Est GFR ( Amer) Est GFR (Non-Af Amer) POC Glucose (mg/dL) 124 H Random Glucose Calcium Phosphorus Magnesium Total Bilirubin AST ALT Alkaline Phosphatase Lactate Dehydrogenase Total Creatine Kinase Troponin I 0.09 D NT-Pro-B Natriuret Pep Total Protein Albumin Globulin Albumin/Globulin Ratio Procalcitonin TSH 3rd Generation Venous Blood Potassium 4.3 Urine Color Urine Appearance Urine pH Ur Specific Francis Urine Protein Urine Glucose (UA) Urine Ketones Urine Blood Urine Nitrate Urine Bilirubin Urine Urobilinogen Ur Leukocyte Esterase Urine RBC Urine WBC Urine Other 12/23/17 12/23/17 12/23/17 06:00 06:00 06:00 WBC 3.9 L D RBC 3.73 Hgb 11.2 L D Hct 32.7 L MCV 87.7 MCH 30.0 MCHC 34.3 RDW 15.5 H Plt Count 75 L MPV 9.5 Gran % 81.7 H Lymph % (Auto) 9.7 L [place] % (Auto) 7.6 H Eos % (Auto) 1.0 L Baso % (Auto) 0.0 Gran # 3.21 Lymph # (Auto) 0.4 L [place] # (Auto) 0.3 Eos # (Auto) 0.0 Baso # (Auto) 0.00 PT INR APTT pO2 VBG pH VBG pCO2 VBG HCO3 VBG Total CO2 VBG O2 Sat (Calc) VBG Base Excess VBG Potassium Glucose Lactate FiO2 Sodium 138 Potassium 3.5 L Chloride 106 Carbon Dioxide 26 Anion Gap 10 BUN 18 Creatinine 0.8 Est GFR ( Amer) > 60 Est GFR (Non-Af Amer) > 60 POC Glucose (mg/dL) Random Glucose 95 Calcium 8.1 L Phosphorus 2.1 L Magnesium 1.7 Total Bilirubin 2.8 H AST 19 ALT 26 Alkaline Phosphatase 54 Lactate Dehydrogenase Total Creatine Kinase Troponin I 0.10 NT-Pro-B Natriuret Pep 1420 H Total Protein 4.9 L Albumin 2.8 L Globulin 2.1 Albumin/Globulin Ratio 1.3 Procalcitonin 8.41 H TSH 3rd Generation Venous Blood Potassium Urine Color Urine Appearance Urine pH Ur Specific Francis Urine Protein Urine Glucose (UA) Urine Ketones Urine Blood Urine Nitrate Urine Bilirubin Urine Urobilinogen Ur Leukocyte Esterase Urine RBC Urine WBC Urine Other 12/23/17 12/23/17 12/23/17 06:30 07:37 10:33 WBC RBC Hgb Hct MCV MCH MCHC RDW Plt Count MPV Gran % Lymph % (Auto) [place] % (Auto) Eos % (Auto) Baso % (Auto) Gran # Lymph # (Auto) [place] # (Auto) Eos # (Auto) Baso # (Auto) PT INR APTT pO2 VBG pH VBG pCO2 VBG HCO3 VBG Total CO2 VBG O2 Sat (Calc) VBG Base Excess VBG Potassium Glucose Lactate FiO2 Sodium Potassium Chloride Carbon Dioxide Anion Gap BUN Creatinine Est GFR ( Amer) Est GFR (Non-Af Amer) POC Glucose (mg/dL) 111 H 124 H Random Glucose Calcium Phosphorus Magnesium Total Bilirubin AST ALT Alkaline Phosphatase Lactate Dehydrogenase Total Creatine Kinase Troponin I NT-Pro-B Natriuret Pep Total Protein Albumin Globulin Albumin/Globulin Ratio Procalcitonin TSH 3rd Generation 6.93 H Venous Blood Potassium Urine Color Urine Appearance Urine pH Ur Specific Francis Urine Protein Urine Glucose (UA) Urine Ketones Urine Blood Urine Nitrate Urine Bilirubin Urine Urobilinogen Ur Leukocyte Esterase Urine RBC Urine WBC Urine Other 12/23/17 12/23/17 16:11 16:11 WBC 3.5 L RBC 3.48 L Hgb 10.6 L Hct 30.7 L MCV 88.2 MCH 30.5 MCHC 34.5 RDW 15.6 H Plt Count 75 L MPV 9.7 Gran % Lymph % (Auto) [place] % (Auto) Eos % (Auto) Baso % (Auto) Gran # Lymph # (Auto) [place] # (Auto) Eos # (Auto) Baso # (Auto) PT INR APTT pO2 VBG pH VBG pCO2 VBG HCO3 VBG Total CO2 VBG O2 Sat (Calc) VBG Base Excess VBG Potassium Glucose Lactate FiO2 Sodium 139 Potassium 3.9 Chloride 107 Carbon Dioxide 24 Anion Gap 12 BUN 18 Creatinine 0.8 Est GFR ( Amer) > 60 Est GFR (Non-Af Amer) > 60 POC Glucose (mg/dL) Random Glucose 123 H Calcium 7.8 L Phosphorus Magnesium Total Bilirubin AST ALT Alkaline Phosphatase Lactate Dehydrogenase Total Creatine Kinase Troponin I NT-Pro-B Natriuret Pep Total Protein Albumin Globulin Albumin/Globulin Ratio Procalcitonin TSH 3rd Generation Venous Blood Potassium Urine Color Urine Appearance Urine pH Ur Specific Francis Urine Protein Urine Glucose (UA) Urine Ketones Urine Blood Urine Nitrate Urine Bilirubin Urine Urobilinogen Ur Leukocyte Esterase Urine RBC Urine WBC Urine Other Attending/Attestation - Attestation I have personally seen and examined this patient.: Yes I have fully participated in the care of the patient.: Yes I have reviewed all pertinent clinical information: Yes
--- NOTE | 2017-12-23 01:44 | PCM.SEPTIC ---
Sepsis Progress Note - Reassessment Type Date of Evaluation: 12/23/17 Time of Evaluation: 01:43 Reassessment Type: Non-invasive reassessment - Non Invasive Reassessment Were the most recent vital sign reviewed: Yes Vital Sign (Latest): Temp Pulse Resp BP Pulse Ox 98.1 F 84 18 106/66 94 L 12/22/17 23:40 12/22/17 23:40 12/22/17 23:40 12/22/17 23:40 12/22/17 23:40 Cardiovascular: Yes: Regular Rate, Rhythm. No: Tachycardia Respiratory: Yes: Normal Breath Sounds. No: Accessory Muscle Use Capillary Refill: Normal (Less than 2 sec) Pulses: Normal Radial, Normal Dorsalis Pedis, Normal Posterior Tibialis Skin: Normal Color, Warm, Dry - Invasive Reassessment (complete 2 of 4) Was a Central Venous Pressure Measurement obtained within 6 Hours after the presentation of septic shock: No Was a central venous oxygen measurement obtained within 6 hours after the presentation of septic shock: No Was a bedside cardiovascular ultrasound performed within 6 hours after the presentation of septic shock: No Was a passive leg raise performed or was a fluid challenge performed within 6 hrs of the initial fluid bolus: Yes Passive Leg Raise Result: Not Applicable Fluid Challenge performed: Yes
[2017-12-23] MEDS ORDERED: Piperacill/Tazo 4.5gm in NS 4.5 GM/100 ML BAG IVPB SCH ×2 (01:52→06:00)
[2017-12-23] MEDS ORDERED: Dextrose 50% SYRINGE Inj (50 ml) IVP ONE (02:16)
[2017-12-23] MEDS ORDERED: Insulin Regular 1 UNITS/0.01 ML ML IV ONE (02:16)
[2017-12-23] MEDS: Piperacill/Tazo 4.5gm in NS 4.5 GM/100 ML BAG IVPB SCH ×2 (02:39→08:24)
[2017-12-23] MEDS ORDERED: Sodium Chloride 0.9% 250 ML IV STA (03:35)
[2017-12-23] MEDS ORDERED: Levothyroxine 75 MCG TAB PO SCH (06:00)
[2017-12-23] MEDS: Budesonide 0.5 mg/2 ml Inhal Susp UD IH SCH ×2 (07:20→19:26)
[2017-12-23] MEDS: Acetylcysteine 20% Inhal Soln (4ml) IH SCH ×3 (07:20→19:26)
[2017-12-23] MEDS: Albuterol 0.083% Inhal Sol (2.5 mg/3 mL) UD IH SCH ×3 (07:20→19:26)
[2017-12-23 07:27] LABS: B-TYPE NATRIURETIC PEPTIDE 1420 pg/mL (0-450); GRAN # 3.21 (1.4-6.5); GRAN % 81.7 % (50.0-68.0); LYMPH # 0.4 (1.2-3.4); LYMPH % 9.7 % (22.0-35.0); MEAN CELL VOLUME 87.7 fl (80.0-105.0); MEAN CORPUSCULAR HGB CONC 34.3 g/dl (31.0-37.0); MEAN PLATELET VOLUME 9.5 fl (7.0-11.0); MONO # 0.3 (0.1-0.6); MONO % 7.6 % (1.0-6.0); RBC 3.73 10^6/uL (3.5-6.1); RED CELL DISTRIBUTION WIDTH 15.5 % (11.5-14.5); WHITE BLOOD COUNT 3.9 10^3/ul (4.5-11.0)
[2017-12-23 07:37] LABS: HEMOGLOBIN 11.2 g/dL (14.0-18.0)
[2017-12-23 07:38] LABS: ALB/GLOB RATIO 1.3 (1.1-1.8); ALBUMIN 2.8 g/dL (3.0-4.8); ALT/SGPT 26 U/L (7-56); AST/SGOT 19 U/L (17-59); BLOOD UREA NITROGEN 18 mg/dL (7-21); CALCIUM 8.1 mg/dL (8.4-10.5); GFR NON-AFRICAN AMERICAN > 60
--- NOTE | 2017-12-23 07:44 | CON ---
DATE: 12/23/2017 PULMONARY CONSULTATION REASON FOR PULMONARY CONSULTATION: Pneumonia. REFERRING PHYSICIAN FOR THIS PULMONARY CONSULTATION: Sean Nicholson DO. History is obtained via extensive discussion with the night nurse. I have also reviewed the chart at length. The patient is not an adequate historian. HISTORY OF PRESENT ILLNESS: The patient is a chronically ill 77-year-old male, longterm resident, with past medical history significant for advanced Alzheimer dementia, congestive heart failure, coronary artery disease, hypertension, recurrent pneumonia (probably secondary to aspiration), who presents to [facility] - transferred from the longterm - with increasing shortness of breath, cough and fever for the past one day. The patient does produce minimal sputum. There is no history of chest pain, coughing up of blood or chest pain - made worse with deep respirations. The patient did present to the hospital with fevers. No history of chills or infectious exposure. No history of night sweats, weight loss or appetite change prior to the above events. No history of leg or calf pains. No history of syncope or diaphoresis. No history of recent travel or trauma. REVIEW OF SYSTEMS: No history of nausea, vomiting or diarrhea. No acute urinary symptoms. No new musculoskeletal complaints. Rest of the review of systems negative. ALLERGIES: TO ROCEPHIN. SOCIAL HISTORY: Positive for tobacco and negative for alcohol. FAMILY HISTORY: No inheritable diseases. HOME MEDICATIONS: Include acetaminophen, Flomax, Singulair, Lopressor, Synthroid, Feosol, Aricept, Cetirizine, Lipitor and aspirin. PHYSICAL EXAMINATION: GENERAL: The patient is mildly short of breath this morning. He is in no acute distress. He is awake and alert. VITAL SIGNS: Temperature is 98.1, pulse is 87, respirations 20/22, blood pressure 106/66. Oxygen saturation on nasal cannula is 95%. HEENT: Normocephalic, atraumatic. No JVD. CARDIOVASCULAR: Positive S1, S2. No S3 gallop. LUNGS: Decreased breath sounds at the bases. Scattered loose rhonchi bilaterally. No wheezing. EXTREMITIES: Mild edema. No cyanosis, no clubbing. Calves are nontender to palpation. GI: Abdomen is soft, nontender and nondistended. Bowel sounds are positive. SKIN: No acute rash. NEUROLOGIC: Exam limited at the present time. PERTINENT LABORATORY DATA: Chest x-ray was done this morning and reviewed. There is a patchy right lower lobe infiltrate noted. CBC: White count 6.2K, hemoglobin 14, hematocrit 40.5, platelets of 82,000. Complete metabolic profile: Potassium 5.3, glucose 146, bilirubin 2.6, troponin 0.13. B-type natriuretic peptide is 1730. Rest of the metabolic profile is within normal limits. Urinalysis: Urine leukocyte esterase large. Urine WBC count - too numerous to count. IMPRESSION: 1. Recurrent aspiration pneumonia - right lower lobe. 2. Acute bronchospasm. 3. Possible urinary tract infection. 4. Non-ST elevation myocardial infarction. 5. Advanced dementia. PLAN: Again, I did discuss the case with the night nurse at length. I have also reviewed the chart at length. The patient is not an adequate historian at this point in time. This is a chronically ill patient, who presents to [facility] - transferred from the longterm - for increasing shortness of breath, cough and fevers for one day. I did review the chest x-ray as above. There is a significant patchy infiltrate noted in the right lower lobe. As above, the patient has had recurrent aspiration pneumonia in the past. I have also reviewed the laboratory data. A significant rise in the troponin is noted. Cardiology evaluation with Dr. Ladnry has been ordered. On physical exam, the patient is in [id number] bronchospasm. I will start the patient on albuterol nebulizer treatments, as well as acetylcysteine. I will also order inhaled Pulmicort for the bronchospasm. I have also ordered the patient to be suctioned with his respiratory treatments, and did discuss these instructions with the respiratory therapist this morning. I will certainly continue with the aspiration precautions. The patient has been pancultured and started on antibiotic therapy. Consultation with Dr. Goode (Infectious Disease) is ordered. Repeat morning labs are also ordered. Clinical status of the patient appears very guarded at this point in time. His overall status/prognosis remains poor. I will discuss the above with the entire ICU team in the next few moments. I will also discuss the above with Dr. Nicholson later this morning. Thank you very much for this pulmonary consultation. Medardo Whittaker MD [facility] # [id number] MTDD
[2017-12-23] MEDS ORDERED: Pneumococcal 23-Valent Vaccine IM ONE (09:18)
[2017-12-23] MEDS ORDERED: Influenza Vaccine 60 mcg/0.5 mL SYR (4YR UP) IM ONE (09:18)
--- NOTE | 2017-12-23 09:27 | CP.CCUPN ---
<Noble Metcalf - Last Filed: 12/23/17 12:08> CCU Subjective - Physician Review Subjective (Free Text): Noble Metcalf DO, PGY-1 ICU Progress Note for Dr. Frankie Gusman Patient is a 77 yo M with PMH of Alzheimer's dementia, prior PNA, annie fungemia, CHF (last EF 25), CAD, HLD, and MDS who presented to ED last night from intermediate with sepsis secondary to worsening RLL PNA. He was subsequently admitted to ICU for close monitoring as he was hypotensive and tachycardic in ED. He was also found to have mild troponin elevation but this has since trended downward. CCU Objective - Vital Signs / Intake & Output Vital Signs (Last 4 hours): Vital Signs Temp Pulse Pulse Pulse Pulse Resp BP 12/23/17 09:13 84 H 12/23/17 09:10 86 33 H 12/23/17 09:00 86 28 H 95/55 L 12/23/17 08:50 83 31 H 12/23/17 08:45 88 31 H 91/52 L 12/23/17 08:40 90 33 H 12/23/17 08:39 90 31 H 90/48 L 12/23/17 08:38 89 33 H 92/49 L 12/23/17 08:37 92 H 34 H 12/23/17 08:35 85 86 85 25 H 12/23/17 08:30 91 H 30 H 91/49 L 12/23/17 08:20 93 H 30 H 12/23/17 08:15 92 H 30 H 83/48 L 12/23/17 08:10 93 H 31 H 12/23/17 08:00 97.9 F 95 H 30 H 82/52 L 12/23/17 07:50 99 H 35 H 12/23/17 07:45 104 H 40 H 125/67 12/23/17 07:40 93 H 30 H 12/23/17 07:30 78 37 H 96/57 L 12/23/17 07:21 77 33 H 96/50 L 12/23/17 07:20 74 28 H 12/23/17 07:15 75 55 H 84/56 L 12/23/17 07:12 78 31 H 87/50 L 12/23/17 07:10 75 25 H 12/23/17 07:00 77 26 H 12/23/17 06:50 76 38 H 12/23/17 06:40 84 30 H 12/23/17 06:30 80 41 H 94/52 L 12/23/17 06:26 86 29 H 93/55 L 12/23/17 06:20 76 28 H 12/23/17 06:15 78 23 68/35 L 12/23/17 06:10 79 24 12/23/17 06:00 89 31 H 97/36 L 12/23/17 05:50 78 28 H 12/23/17 05:45 80 40 H 89/40 L Pulse Ox 12/23/17 09:13 12/23/17 09:10 92 L 12/23/17 09:00 93 L 12/23/17 08:50 89 L 12/23/17 08:45 89 L 12/23/17 08:40 88 L 12/23/17 08:39 88 L 12/23/17 08:38 87 L 12/23/17 08:37 12/23/17 08:35 12/23/17 08:30 88 L 12/23/17 08:20 88 L 12/23/17 08:15 87 L 12/23/17 08:10 87 L 12/23/17 08:00 88 L 12/23/17 07:50 90 L 12/23/17 07:45 92 L 12/23/17 07:40 94 L 12/23/17 07:30 94 L 12/23/17 07:21 92 L 12/23/17 07:20 91 L 12/23/17 07:15 89 L 12/23/17 07:12 89 L 12/23/17 07:10 89 L 12/23/17 07:00 90 L 12/23/17 06:50 89 L 12/23/17 06:40 94 L 12/23/17 06:30 92 L 12/23/17 06:26 91 L 12/23/17 06:20 92 L 12/23/17 06:15 91 L 12/23/17 06:10 91 L 12/23/17 06:00 95 12/23/17 05:50 93 L 12/23/17 05:45 92 L Intake and Output (Last 8hrs): Intake & Output 12/22/17 12/23/17 12/23/17 22:59 06:59 14:59 Weight 150 lb 140 lb Other: Voiding Method Indwelling Catheter Indwelling Catheter - Physical Exam Physical Exam Limitations: Positive for: Altered Mental Status, Other (dementia at baseline) Head: Positive for: Atraumatic, Normocephalic Pupils: Positive for: PERRL Extroacular Muscles: Positive for: EOMI Conjunctiva: Positive for: Normal Mouth: Positive for: Moist Mucous Membranes Pharnyx: Positive for: Normal. Negative for: ERYTHEMA, EXUDATE Nose (External): Positive for: Atraumatic Nose (Internal): Positive for: Edematous, Boggy, Epistaxis Neck: Positive for: Normal Range of Motion Respiratory/Chest: Positive for: Rales (rales auscultated loudest in lower lobes b/l R > L), Rhonchi (productive cough with hemoptysis, diffuse rhonchi present b/l). Negative for: Respiratory Distress, Accessory Muscle Use, Wheezes Cardiovascular: Positive for: Regular Rate and Rhythm, Normal S1, S2. Negative for: Murmurs, Rub, Gallop Abdomen: Negative for: Tenderness, Distention, Peritoneal Signs Upper Extremity: Positive for: Normal Inspection. Negative for: Cyanosis, Edema Lower Extremity: Positive for: Normal Inspection. Negative for: Edema Neurological: Positive for: Motor Func Grossly Intact Skin: Positive for: Warm, Dry, Normal Color. Negative for: Rashes Psychiatric: Positive for: Alert, Anxious, Other (not oriented to person, place, or situation) - Medications Active Medications: Active Medications Generic Name Dose Route Start Last Admin Trade Name Freq PRN Reason Stop Dose Admin Acetylcysteine 4 ml 12/23/17 08:00 12/23/17 07:20 Acetylcysteine 20% IH 4 ml [id number] YOLANDA Administration Albuterol Sulfate 2.5 mg 12/23/17 08:00 12/23/17 07:20 Albuterol 0.083% Inhal Ronda (2.5 Mg/3 Ml) Ud IH 2.5 mg [id number] YOLANDA Administration Albuterol/Ipratropium 3 ml 12/22/17 22:57 Duoneb 3 Mg/0.5 Mg (3 Ml) Ud IH Q2H PRN Shortness of Breath Atorvastatin Calcium 40 mg 12/22/17 23:15 12/22/17 23:55 Lipitor PO Not Given HS YOLANDA Budesonide 0.5 mg 12/23/17 08:00 12/23/17 07:20 Pulmicort Respules IH 0.5 mg [id number] YOLANDA Administration Enoxaparin Sodium 40 mg 12/23/17 10:00 Lovenox SC DAILY YOLANDA Protocol Sodium Chloride 1,000 mls @ 75 mls/hr 12/22/17 23:00 12/22/17 23:18 Sodium Chloride 0.9% IV 75 mls/hr .[id number] YOLANDA Administration Vancomycin HCl 1 gm in 250 mls @ 167 mls/hr 12/23/17 10:00 Vancomycin 1gm IVPB DAILY [facility] Protocol Pantoprazole Sodium 40 mg 12/23/17 10:00 Protonix Inj IVP DAILY YOLANDA - Patient Studies Lab Studies: Lab Studies 12/23/17 12/23/17 12/23/17 Range/Units 06:00 06:00 00:55 WBC 3.9 L D (4.5-11.0) 10^3/ul RBC 3.73 (3.5-6.1) 10^6/uL Hgb 11.2 L D (14.0-18.0) g/dL Hct 32.7 L (42.0-52.0) % MCV 87.7 (80.0-105.0) fl MCH 30.0 (25.0-35.0) pg MCHC 34.3 (31.0-37.0) g/dl RDW 15.5 H (11.5-14.5) % Plt Count 75 L (120.0-450.0) 10^3/uL MPV 9.5 (7.0-11.0) fl Gran % 81.7 H (50.0-68.0) % Lymph % (Auto) 9.7 L (22.0-35.0) % [place] % (Auto) 7.6 H (1.0-6.0) % Eos % (Auto) 1.0 L (1.5-5.0) % Baso % (Auto) 0.0 (0.0-3.0) % Gran # 3.21 (1.4-6.5) Lymph # (Auto) 0.4 L (1.2-3.4) [place] # (Auto) 0.3 (0.1-0.6) Eos # (Auto) 0.0 (0.0-0.7) Baso # (Auto) 0.00 (0.0-2.0) K/mm3 PT (9.4-12.5) SECONDS INR APTT (25.1-36.5) Seconds pO2 (30-55) mm/Hg VBG pH (7.32-7.43) VBG pCO2 (40-60) VBG HCO3 (21-28) mmol/l VBG Total CO2 (22-28) mmol.L VBG O2 Sat (Calc) (40-65) % VBG Base Excess (0.0-2.0) mmol/L VBG Potassium (3.6-5.2) mmol/L Glucose (75-110) mg/dl Lactate (0.7-2.1) mmol/L FiO2 % Sodium 138 (132-148) mmol/L Potassium 3.5 L (3.6-5.0) mmol/L Chloride 106 (98-107) mmol/L Carbon Dioxide 26 (21-33) mmol/L Anion Gap 10 (10-20) BUN 18 (7-21) mg/dL Creatinine 0.8 (0.8-1.5) mg/dl Est GFR ( Amer) > 60 Est GFR (Non-Af Amer) > 60 Random Glucose 95 (70-110) mg/dL Calcium 8.1 L (8.4-10.5) mg/dL Phosphorus 2.1 L (2.5-4.5) mg/dL Magnesium 1.7 (1.7-2.2) mg/dL Total Bilirubin 2.8 H (0.2-1.3) mg/dL AST 19 (17-59) U/L ALT 26 (7-56) U/L Alkaline Phosphatase 54 (38-126) U/L Lactate Dehydrogenase (333-699) U/L Total Creatine Kinase (35-230) U/L Troponin I 0.10 0.09 D ng/mL NT-Pro-B Natriuret Pep 1420 H (0-450) pg/mL Total Protein 4.9 L (5.8-8.3) g/dL Albumin 2.8 L (3.0-4.8) g/dL Globulin 2.1 gm/dL Albumin/Globulin Ratio 1.3 (1.1-1.8) Venous Blood Potassium (3.6-5.2) mmol/L Urine Color (YELLOW) Urine Appearance (CLEAR) Urine pH (4.7-8.0) Ur Specific [place] (1.005-1.035) Urine Protein (<30 mg/dL) mg/dL Urine Glucose (UA) (NEGATIVE) mg/dL Urine Ketones (NEGATIVE) mg/dL Urine Blood (NEGATIVE) Urine Nitrate (NEGATIVE) Urine Bilirubin (NEGATIVE) Urine Urobilinogen (<1 E.U./dL) E.U./dL Ur Leukocyte Esterase (NEGATIVE) Lizzeth/uL Urine RBC (0-2) /hpf Urine WBC (0-6) /hpf Urine Other 12/22/17 12/22/17 12/22/17 Range/Units 23:00 19:41 19:29 WBC (4.5-11.0) 10^3/ul RBC (3.5-6.1) 10^6/uL Hgb (14.0-18.0) g/dL Hct (42.0-52.0) % MCV (80.0-105.0) fl MCH (25.0-35.0) pg MCHC (31.0-37.0) g/dl RDW (11.5-14.5) % Plt Count (120.0-450.0) 10^3/uL MPV (7.0-11.0) fl Gran % (50.0-68.0) % Lymph % (Auto) (22.0-35.0) % [place] % (Auto) (1.0-6.0) % Eos % (Auto) (1.5-5.0) % Baso % (Auto) (0.0-3.0) % Gran # (1.4-6.5) Lymph # (Auto) (1.2-3.4) [place] # (Auto) (0.1-0.6) Eos # (Auto) (0.0-0.7) Baso # (Auto) (0.0-2.0) K/mm3 PT (9.4-12.5) SECONDS INR APTT (25.1-36.5) Seconds pO2 51 29 L (30-55) mm/Hg VBG pH 7.35 7.28 L (7.32-7.43) VBG pCO2 48.0 60.0 (40-60) VBG HCO3 26.5 28.2 H (21-28) mmol/l VBG Total CO2 28.0 30.0 H (22-28) mmol.L VBG O2 Sat (Calc) 85.8 H 50.3 (40-65) % VBG Base Excess 0.3 0.1 (0.0-2.0) mmol/L VBG Potassium 4.3 4.6 (3.6-5.2) mmol/L Glucose 175 H 147 H (75-110) mg/dl Lactate 4.0 H* 5.3 H* (0.7-2.1) mmol/L FiO2 21.0 21.0 % Sodium 135.0 136.0 (132-148) mmol/L Potassium (3.6-5.0) mmol/L Chloride 103.0 102.0 (98-107) mmol/L Carbon Dioxide (21-33) mmol/L Anion Gap (10-20) BUN (7-21) mg/dL Creatinine (0.8-1.5) mg/dl Est GFR ( Amer) Est GFR (Non-Af Amer) Random Glucose (70-110) mg/dL Calcium (8.4-10.5) mg/dL Phosphorus (2.5-4.5) mg/dL Magnesium (1.7-2.2) mg/dL Total Bilirubin (0.2-1.3) mg/dL AST (17-59) U/L ALT (7-56) U/L Alkaline Phosphatase (38-126) U/L Lactate Dehydrogenase (333-699) U/L Total Creatine Kinase (35-230) U/L Troponin I ng/mL NT-Pro-B Natriuret Pep (0-450) pg/mL Total Protein (5.8-8.3) g/dL Albumin (3.0-4.8) g/dL Globulin gm/dL Albumin/Globulin Ratio (1.1-1.8) Venous Blood Potassium 4.3 4.6 (3.6-5.2) mmol/L Urine Color Yellow (YELLOW) Urine Appearance Turbid (CLEAR) Urine pH 6.0 (4.7-8.0) Ur Specific [place] 1.025 (1.005-1.035) Urine Protein Trace H (<30 mg/dL) mg/dL Urine Glucose (UA) Negative (NEGATIVE) mg/dL Urine Ketones Negative (NEGATIVE) mg/dL Urine Blood Trace-intact H (NEGATIVE) Urine Nitrate Negative (NEGATIVE) Urine Bilirubin Negative (NEGATIVE) Urine Urobilinogen 0.2 (<1 E.U./dL) E.U./dL Ur Leukocyte Esterase Large H (NEGATIVE) Lizzeth/uL Urine RBC 0 - 2 (0-2) /hpf Urine WBC Tntc (0-6) /hpf Urine Other Uyeast 12/22/17 12/22/17 12/22/17 Range/Units 19:20 19:20 19:20 WBC 6.2 (4.5-11.0) 10^3/ul RBC 4.56 (3.5-6.1) 10^6/uL Hgb 14.0 D (14.0-18.0) g/dL Hct 40.5 L (42.0-52.0) % MCV 88.8 (80.0-105.0) fl MCH 30.7 (25.0-35.0) pg MCHC 34.6 (31.0-37.0) g/dl RDW 15.4 H (11.5-14.5) % Plt Count 82 L (120.0-450.0) 10^3/uL MPV 9.5 (7.0-11.0) fl Gran % 81.9 H (50.0-68.0) % Lymph % (Auto) 9.3 L (22.0-35.0) % [place] % (Auto) 8.3 H (1.0-6.0) % Eos % (Auto) 0.3 L (1.5-5.0) % Baso % (Auto) 0.2 (0.0-3.0) % Gran # 5.04 (1.4-6.5) Lymph # (Auto) 0.6 L (1.2-3.4) [place] # (Auto) 0.5 (0.1-0.6) Eos # (Auto) 0.0 (0.0-0.7) Baso # (Auto) 0.01 (0.0-2.0) K/mm3 PT 15.0 H (9.4-12.5) SECONDS INR 1.31 APTT 30.2 (25.1-36.5) Seconds pO2 (30-55) mm/Hg VBG pH (7.32-7.43) VBG pCO2 (40-60) VBG HCO3 (21-28) mmol/l VBG Total CO2 (22-28) mmol.L VBG O2 Sat (Calc) (40-65) % VBG Base Excess (0.0-2.0) mmol/L VBG Potassium (3.6-5.2) mmol/L Glucose (75-110) mg/dl Lactate (0.7-2.1) mmol/L FiO2 % Sodium 139 (132-148) mmol/L Potassium 5.3 H (3.6-5.0) mmol/L Chloride 101 (98-107) mmol/L Carbon Dioxide 27 (21-33) mmol/L Anion Gap 16 (10-20) BUN 20 (7-21) mg/dL Creatinine 1.0 (0.8-1.5) mg/dl Est GFR ( Amer) > 60 Est GFR (Non-Af Amer) > 60 Random Glucose 146 H (70-110) mg/dL Calcium 9.6 (8.4-10.5) mg/dL Phosphorus (2.5-4.5) mg/dL Magnesium 1.8 (1.7-2.2) mg/dL Total Bilirubin 2.6 H (0.2-1.3) mg/dL AST 27 (17-59) U/L ALT 24 (7-56) U/L Alkaline Phosphatase 61 (38-126) U/L Lactate Dehydrogenase 422 (333-699) U/L Total Creatine Kinase 29 L (35-230) U/L Troponin I 0.13 H* D ng/mL NT-Pro-B Natriuret Pep 1730 H (0-450) pg/mL Total Protein 6.1 (5.8-8.3) g/dL Albumin 3.9 (3.0-4.8) g/dL Globulin 2.2 gm/dL Albumin/Globulin Ratio 1.8 (1.1-1.8) Venous Blood Potassium (3.6-5.2) mmol/L Urine Color (YELLOW) Urine Appearance (CLEAR) Urine pH (4.7-8.0) Ur Specific [place] (1.005-1.035) Urine Protein (<30 mg/dL) mg/dL Urine Glucose (UA) (NEGATIVE) mg/dL Urine Ketones (NEGATIVE) mg/dL Urine Blood (NEGATIVE) Urine Nitrate (NEGATIVE) Urine Bilirubin (NEGATIVE) Urine Urobilinogen (<1 E.U./dL) E.U./dL Ur Leukocyte Esterase (NEGATIVE) Lizzeth/uL Urine RBC (0-2) /hpf Urine WBC (0-6) /hpf Urine Other Laboratory Results - last 24 hr 12/22/17 12/22/17 12/22/17 19:20 19:20 19:20 WBC 6.2 RBC 4.56 Hgb 14.0 D Hct 40.5 L MCV 88.8 MCH 30.7 MCHC 34.6 RDW 15.4 H Plt Count 82 L MPV 9.5 Gran % 81.9 H Lymph % (Auto) 9.3 L [place] % (Auto) 8.3 H Eos % (Auto) 0.3 L Baso % (Auto) 0.2 Gran # 5.04 Lymph # (Auto) 0.6 L [place] # (Auto) 0.5 Eos # (Auto) 0.0 Baso # (Auto) 0.01 PT 15.0 H INR 1.31 APTT 30.2 pO2 VBG pH VBG pCO2 VBG HCO3 VBG Total CO2 VBG O2 Sat (Calc) VBG Base Excess VBG Potassium Glucose Lactate FiO2 Sodium 139 Potassium 5.3 H Chloride 101 Carbon Dioxide 27 Anion Gap 16 BUN 20 Creatinine 1.0 Est GFR ( Amer) > 60 Est GFR (Non-Af Amer) > 60 Random Glucose 146 H Calcium 9.6 Phosphorus Magnesium 1.8 Total Bilirubin 2.6 H AST 27 ALT 24 Alkaline Phosphatase 61 Lactate Dehydrogenase 422 Total Creatine Kinase 29 L Troponin I 0.13 H* D NT-Pro-B Natriuret Pep 1730 H Total Protein 6.1 Albumin 3.9 Globulin 2.2 Albumin/Globulin Ratio 1.8 Venous Blood Potassium Urine Color Urine Appearance Urine pH Ur Specific [place] Urine Protein Urine Glucose (UA) Urine Ketones Urine Blood Urine Nitrate Urine Bilirubin Urine Urobilinogen Ur Leukocyte Esterase Urine RBC Urine WBC Urine Other 12/22/17 12/22/17 12/22/17 19:29 19:41 23:00 WBC RBC Hgb Hct MCV MCH MCHC RDW Plt Count MPV Gran % Lymph % (Auto) [place] % (Auto) Eos % (Auto) Baso % (Auto) Gran # Lymph # (Auto) [place] # (Auto) Eos # (Auto) Baso # (Auto) PT INR APTT pO2 29 L 51 VBG pH 7.28 L 7.35 VBG pCO2 60.0 48.0 VBG HCO3 28.2 H 26.5 VBG Total CO2 30.0 H 28.0 VBG O2 Sat (Calc) 50.3 85.8 H VBG Base Excess 0.1 0.3 VBG Potassium 4.6 4.3 Glucose 147 H 175 H Lactate 5.3 H* 4.0 H* FiO2 21.0 21.0 Sodium 136.0 135.0 Potassium Chloride 102.0 103.0 Carbon Dioxide Anion Gap BUN Creatinine Est GFR ( Amer) Est GFR (Non-Af Amer) Random Glucose Calcium Phosphorus Magnesium Total Bilirubin AST ALT Alkaline Phosphatase Lactate Dehydrogenase Total Creatine Kinase Troponin I NT-Pro-B Natriuret Pep Total Protein Albumin Globulin Albumin/Globulin Ratio Venous Blood Potassium 4.6 4.3 Urine Color Yellow Urine Appearance Turbid Urine pH 6.0 Ur Specific [place] 1.025 Urine Protein Trace H Urine Glucose (UA) Negative Urine Ketones Negative Urine Blood Trace-intact H Urine Nitrate Negative Urine Bilirubin Negative Urine Urobilinogen 0.2 Ur Leukocyte Esterase Large H Urine RBC 0 - 2 Urine WBC Tntc Urine Other Uyeast 12/23/17 12/23/17 12/23/17 00:55 06:00 06:00 WBC 3.9 L D RBC 3.73 Hgb 11.2 L D Hct 32.7 L MCV 87.7 MCH 30.0 MCHC 34.3 RDW 15.5 H Plt Count 75 L MPV 9.5 Gran % 81.7 H Lymph % (Auto) 9.7 L [place] % (Auto) 7.6 H Eos % (Auto) 1.0 L Baso % (Auto) 0.0 Gran # 3.21 Lymph # (Auto) 0.4 L [place] # (Auto) 0.3 Eos # (Auto) 0.0 Baso # (Auto) 0.00 PT INR APTT pO2 VBG pH VBG pCO2 VBG HCO3 VBG Total CO2 VBG O2 Sat (Calc) VBG Base Excess VBG Potassium Glucose Lactate FiO2 Sodium 138 Potassium 3.5 L Chloride 106 Carbon Dioxide 26 Anion Gap 10 BUN 18 Creatinine 0.8 Est GFR ( Amer) > 60 Est GFR (Non-Af Amer) > 60 Random Glucose 95 Calcium 8.1 L Phosphorus 2.1 L Magnesium 1.7 Total Bilirubin 2.8 H AST 19 ALT 26 Alkaline Phosphatase 54 Lactate Dehydrogenase Total Creatine Kinase Troponin I 0.09 D 0.10 NT-Pro-B Natriuret Pep 1420 H Total Protein 4.9 L Albumin 2.8 L Globulin 2.1 Albumin/Globulin Ratio 1.3 Venous Blood Potassium Urine Color Urine Appearance Urine pH Ur Specific [place] Urine Protein Urine Glucose (UA) Urine Ketones Urine Blood Urine Nitrate Urine Bilirubin Urine Urobilinogen Ur Leukocyte Esterase Urine RBC Urine WBC Urine Other EKG/Cardiology Studies: Cardiology / EKG Studies 12/22/17 18:42 ELECTROCARDIOGRAM Stat Comment: Reason For Exam: ams 12/23/17 00:42 ELECTROCARDIOGRAM Q6H Comment: Reason For Exam: nstemi 12/23/17 06:42 ELECTROCARDIOGRAM Q6H Comment: Reason For Exam: nstemi Fingerstick Blood Sugar Results: 124 Review of Systems - Review of Systems Systems not reviewed;Unavailable: Dementia Review of Systems: history obtained from at bedside - Constitutional Constitutional: Fever - Respiratory Respiratory: Cough, Hemoptysis ( reports no hemoptysis at home, but hemoptysis observed in ICU) Critical Care Progress Note - Extremities/Vascular Does the Patient have a Tong Catheter?: Yes - Prophylaxis GI Prophylaxis GI: PPI - Prophylaxis DVT Prophylaxis DVT: SCDs Assessment/Plan - Assessment and Plan (Free Text) Assessment: 77 yo M brought in from intermediate for concern of worsening productive cough confirmed to have worsening RLL PNA. He was admitted to ICU for management of hypotension, tachycardia from sepsis. Plan: Neuro: Alert but not oriented to person, time, place, or situation History was obtained from at bedside Per , this is his baseline and he has a history of Alzheimer's dementia Cardio: Has been intermittently hypotensive in ED and ICU Likely 2/2 sepsis, consistent with SIRS criteria states his BP is usually low MAP currently 68, maintain MAP > 65 HR in mid 90s currently, was low 100s in ED Continue to monitor Has hx of CHF with last EF of 25% May still need some IVF resuscitation due to sepsis, but will monitor closely Pulm: Worsening cough and hemoptysis Blood from the nose noted on physical exam May be secondary to suctioning/trauma and/or epistaxis Will get CTA to r/o pulmonary hemorrhage Will repeat CBC/BMP this afternoon Hypoxemic on arrival Currently requiring high flow O2 Continue to maintain SpO2 > 93% Consider ABG if respiratory status worsens Continue duo neb treatments Q2h PRN and Q6h scheduled /Nephro: UA positive for pyuria, significant yeast, and leuk esterase Tong in place BUN/Cr stable, continue to monitor S/p 1 L of NS in ED Will consider giving an additional bolus depending on BP, currently receiving NS @ 75 cc/hr Maintain euvolemia Endocrine: Maintain euglycemia ID: Received empiric vanc, flagyl, and cipro in ED Further abx management per ID Heme/onc: Patient has new onset hemoptysis May be secondary to suctioning, epistaxis, and/or other trauma but will need to monitor Will repeat CBC this afternoon Monitor H/H closely DVT PPX: hold lovenox as patient is having hemoptysis, SCDs GI PPX: Protonix Case and plan reviewed and discussed with my attending Dr. Frankie Metcalf, DO IM Resident PGY-1 <Ruby Gusman - Last Filed: 12/23/17 14:34> CCU Objective - Vital Signs / Intake & Output Vital Signs (Last 4 hours): Vital Signs Pulse Resp BP Pulse Ox 12/23/17 13:10 100 12/23/17 13:00 121/80 100 12/23/17 12:56 24 12/23/17 12:50 75 23 80 L 12/23/17 12:49 73 33 H 12/23/17 12:48 73 25 H 12/23/17 12:47 67 24 12/23/17 12:46 69 21 12/23/17 12:45 92/52 L 12/23/17 12:44 68 27 H 12/23/17 12:43 69 29 H 12/23/17 12:42 71 22 12/23/17 12:41 68 22 12/23/17 12:40 69 24 12/23/17 12:39 70 28 H 12/23/17 12:38 72 25 H 12/23/17 12:37 72 24 12/23/17 12:36 72 24 12/23/17 12:35 74 25 H 12/23/17 12:34 69 26 H 12/23/17 12:33 70 22 12/23/17 12:32 70 22 12/23/17 12:31 72 24 12/23/17 12:30 99/57 L 12/23/17 12:29 74 35 H 12/23/17 12:28 75 23 12/23/17 12:27 90/56 L 12/23/17 12:26 73 27 H 12/23/17 12:25 73 27 H 12/23/17 12:24 73 25 H 12/23/17 12:23 72 27 H 12/23/17 12:22 75 33 H 12/23/17 12:21 76 27 H 12/23/17 12:20 75 30 H 12/23/17 12:19 78 36 H 12/23/17 12:18 80 45 H 12/23/17 12:17 80 25 H 12/23/17 12:16 85 38 H 12/23/17 12:15 79 30 H 12/23/17 12:14 88 33 H 12/23/17 12:13 89 39 H 12/23/17 12:12 80 39 H 12/23/17 12:11 97 H 36 H 12/23/17 12:10 78 25 H Intake and Output (Last 8hrs): Intake & Output 12/22/17 12/23/17 12/23/17 22:59 06:59 14:59 Weight 68.039 kg 63.503 kg Other: Voiding Method Indwelling Catheter Indwelling Catheter - Medications Active Medications: Active Medications Generic Name Dose Route Start Last Admin Trade Name Freq PRN Reason Stop Dose Admin Acetylcysteine 4 ml 12/23/17 08:00 12/23/17 12:59 Acetylcysteine 20% IH 4 ml [id number] YOLANDA Administration Albuterol Sulfate 2.5 mg 12/23/17 08:00 12/23/17 12:59 Albuterol 0.083% Inhal Ronda (2.5 Mg/3 Ml) Ud IH 2.5 mg [id number] YOLANDA Administration Albuterol/Ipratropium 3 ml 12/22/17 22:57 Duoneb 3 Mg/0.5 Mg (3 Ml) Ud IH Q2H PRN Shortness of Breath Atorvastatin Calcium 40 mg 12/22/17 23:15 12/22/17 23:55 Lipitor PO Not Given HS YOLANDA Budesonide 0.5 mg 12/23/17 08:00 12/23/17 07:20 Pulmicort Respules IH 0.5 mg [id number] YOLANDA Administration Sodium Chloride 1,000 mls @ 75 mls/hr 12/22/17 23:00 12/23/17 12:52 Sodium Chloride 0.9% IV 75 mls/hr .[id number] YOLANDA Administration Vancomycin HCl 1 gm in 250 mls @ 167 mls/hr 12/23/17 10:00 12/23/17 09:38 Vancomycin 1gm IVPB 167 mls/hr DAILY YOLANDA Administration Protocol Potassium Phosphate 15 mmole/ 255 mls @ 42.5 mls/hr 12/23/17 10:00 12/23/17 12:46 Sodium Chloride IVPB 12/23/17 15:59 42.5 mls/hr ONCE ONE Administration Levofloxacin/Dextrose 750 mg in 150 mls @ 100 mls/hr 12/23/17 11:46 12/23/17 12:25 Levaquin 750mg IVPB 01/01/18 11:47 100 mls/hr DAILY YOLANDA Administration Protocol Meropenem 1 gm in 50 mls @ 12.5 mls/hr 12/23/17 14:00 Merrem Iv 1 Gm Premix IVPB 01/01/18 14:01 Q8 YOLANDA Protocol Pantoprazole Sodium 40 mg 12/23/17 10:00 12/23/17 09:39 Protonix Inj IVP 40 mg DAILY YOLANDA Administration - Patient Studies Lab Studies: Lab Studies 12/23/17 12/23/17 12/23/17 Range/Units 07:37 06:30 06:00 WBC (4.5-11.0) 10^3/ul RBC (3.5-6.1) 10^6/uL Hgb (14.0-18.0) g/dL Hct (42.0-52.0) % MCV (80.0-105.0) fl MCH (25.0-35.0) pg MCHC (31.0-37.0) g/dl RDW (11.5-14.5) % Plt Count (120.0-450.0) 10^3/uL MPV (7.0-11.0) fl Gran % (50.0-68.0) % Lymph % (Auto) (22.0-35.0) % [place] % (Auto) (1.0-6.0) % Eos % (Auto) (1.5-5.0) % Baso % (Auto) (0.0-3.0) % Gran # (1.4-6.5) Lymph # (Auto) (1.2-3.4) [place] # (Auto) (0.1-0.6) Eos # (Auto) (0.0-0.7) Baso # (Auto) (0.0-2.0) K/mm3 PT (9.4-12.5) SECONDS INR APTT (25.1-36.5) Seconds pO2 (30-55) mm/Hg VBG pH (7.32-7.43) VBG pCO2 (40-60) VBG HCO3 (21-28) mmol/l VBG Total CO2 (22-28) mmol.L VBG O2 Sat (Calc) (40-65) % VBG Base Excess (0.0-2.0) mmol/L VBG Potassium (3.6-5.2) mmol/L Glucose (75-110) mg/dl Lactate (0.7-2.1) mmol/L FiO2 % Sodium 138 (132-148) mmol/L Potassium 3.5 L (3.6-5.0) mmol/L Chloride 106 (98-107) mmol/L Carbon Dioxide 26 (21-33) mmol/L Anion Gap 10 (10-20) BUN 18 (7-21) mg/dL Creatinine 0.8 (0.8-1.5) mg/dl Est GFR ( Amer) > 60 Est GFR (Non-Af Amer) > 60 POC Glucose (mg/dL) 111 H (65-110) mg/dL Random Glucose 95 (70-110) mg/dL Calcium 8.1 L (8.4-10.5) mg/dL Phosphorus 2.1 L (2.5-4.5) mg/dL Magnesium 1.7 (1.7-2.2) mg/dL Total Bilirubin 2.8 H (0.2-1.3) mg/dL AST 19 (17-59) U/L ALT 26 (7-56) U/L Alkaline Phosphatase 54 (38-126) U/L Lactate Dehydrogenase (333-699) U/L Total Creatine Kinase (35-230) U/L Troponin I 0.10 ng/mL NT-Pro-B Natriuret Pep 1420 H (0-450) pg/mL Total Protein 4.9 L (5.8-8.3) g/dL Albumin 2.8 L (3.0-4.8) g/dL Globulin 2.1 gm/dL Albumin/Globulin Ratio 1.3 (1.1-1.8) TSH 3rd Generation 6.93 H (0.46-4.68) mIU/mL Venous Blood Potassium (3.6-5.2) mmol/L Urine Color (YELLOW) Urine Appearance (CLEAR) Urine pH (4.7-8.0) Ur Specific [place] (1.005-1.035) Urine Protein (<30 mg/dL) mg/dL Urine Glucose (UA) (NEGATIVE) mg/dL Urine Ketones (NEGATIVE) mg/dL Urine Blood (NEGATIVE) Urine Nitrate (NEGATIVE) Urine Bilirubin (NEGATIVE) Urine Urobilinogen (<1 E.U./dL) E.U./dL Ur Leukocyte Esterase (NEGATIVE) [place]/uL Urine RBC (0-2) /hpf Urine WBC (0-6) /hpf Urine Other 12/23/17 12/23/17 12/23/17 Range/Units 06:00 02:37 00:55 WBC 3.9 L D (4.5-11.0) 10^3/ul RBC 3.73 (3.5-6.1) 10^6/uL Hgb 11.2 L D (14.0-18.0) g/dL Hct 32.7 L (42.0-52.0) % MCV 87.7 (80.0-105.0) fl MCH 30.0 (25.0-35.0) pg MCHC 34.3 (31.0-37.0) g/dl RDW 15.5 H (11.5-14.5) % Plt Count 75 L (120.0-450.0) 10^3/uL MPV 9.5 (7.0-11.0) fl Gran % 81.7 H (50.0-68.0) % Lymph % (Auto) 9.7 L (22.0-35.0) % [place] % (Auto) 7.6 H (1.0-6.0) % Eos % (Auto) 1.0 L (1.5-5.0) % Baso % (Auto) 0.0 (0.0-3.0) % Gran # 3.21 (1.4-6.5) Lymph # (Auto) 0.4 L (1.2-3.4) [place] # (Auto) 0.3 (0.1-0.6) Eos # (Auto) 0.0 (0.0-0.7) Baso # (Auto) 0.00 (0.0-2.0) K/mm3 PT (9.4-12.5) SECONDS INR APTT (25.1-36.5) Seconds pO2 (30-55) mm/Hg VBG pH (7.32-7.43) VBG pCO2 (40-60) VBG HCO3 (21-28) mmol/l VBG Total CO2 (22-28) mmol.L VBG O2 Sat (Calc) (40-65) % VBG Base Excess (0.0-2.0) mmol/L VBG Potassium (3.6-5.2) mmol/L Glucose (75-110) mg/dl Lactate (0.7-2.1) mmol/L FiO2 % Sodium (132-148) mmol/L Potassium (3.6-5.0) mmol/L Chloride (98-107) mmol/L Carbon Dioxide (21-33) mmol/L Anion Gap (10-20) BUN (7-21) mg/dL Creatinine (0.8-1.5) mg/dl Est GFR ( Amer) Est GFR (Non-Af Amer) POC Glucose (mg/dL) 124 H (65-110) mg/dL Random Glucose (70-110) mg/dL Calcium (8.4-10.5) mg/dL Phosphorus (2.5-4.5) mg/dL Magnesium (1.7-2.2) mg/dL Total Bilirubin (0.2-1.3) mg/dL AST (17-59) U/L ALT (7-56) U/L Alkaline Phosphatase (38-126) U/L Lactate Dehydrogenase (333-699) U/L Total Creatine Kinase (35-230) U/L Troponin I 0.09 D ng/mL NT-Pro-B Natriuret Pep (0-450) pg/mL Total Protein (5.8-8.3) g/dL Albumin (3.0-4.8) g/dL Globulin gm/dL Albumin/Globulin Ratio (1.1-1.8) TSH 3rd Generation (0.46-4.68) mIU/mL Venous Blood Potassium (3.6-5.2) mmol/L Urine Color (YELLOW) Urine Appearance (CLEAR) Urine pH (4.7-8.0) Ur Specific [place] (1.005-1.035) Urine Protein (<30 mg/dL) mg/dL Urine Glucose (UA) (NEGATIVE) mg/dL Urine Ketones (NEGATIVE) mg/dL Urine Blood (NEGATIVE) Urine Nitrate (NEGATIVE) Urine Bilirubin (NEGATIVE) Urine Urobilinogen (<1 E.U./dL) E.U./dL Ur Leukocyte Esterase (NEGATIVE) Lizzeth/uL Urine RBC (0-2) /hpf Urine WBC (0-6) /hpf Urine Other 12/22/17 12/22/17 12/22/17 Range/Units 23:00 19:41 19:29 WBC (4.5-11.0) 10^3/ul RBC (3.5-6.1) 10^6/uL Hgb (14.0-18.0) g/dL Hct (42.0-52.0) % MCV (80.0-105.0) fl MCH (25.0-35.0) pg MCHC (31.0-37.0) g/dl RDW (11.5-14.5) % Plt Count (120.0-450.0) 10^3/uL MPV (7.0-11.0) fl Gran % (50.0-68.0) % Lymph % (Auto) (22.0-35.0) % [place] % (Auto) (1.0-6.0) % Eos % (Auto) (1.5-5.0) % Baso % (Auto) (0.0-3.0) % Gran # (1.4-6.5) Lymph # (Auto) (1.2-3.4) [place] # (Auto) (0.1-0.6) Eos # (Auto) (0.0-0.7) Baso # (Auto) (0.0-2.0) K/mm3 PT (9.4-12.5) SECONDS INR APTT (25.1-36.5) Seconds pO2 51 29 L (30-55) mm/Hg VBG pH 7.35 7.28 L (7.32-7.43) VBG pCO2 48.0 60.0 (40-60) VBG HCO3 26.5 28.2 H (21-28) mmol/l VBG Total CO2 28.0 30.0 H (22-28) mmol.L VBG O2 Sat (Calc) 85.8 H 50.3 (40-65) % VBG Base Excess 0.3 0.1 (0.0-2.0) mmol/L VBG Potassium 4.3 4.6 (3.6-5.2) mmol/L Glucose 175 H 147 H (75-110) mg/dl Lactate 4.0 H* 5.3 H* (0.7-2.1) mmol/L FiO2 21.0 21.0 % Sodium 135.0 136.0 (132-148) mmol/L Potassium (3.6-5.0) mmol/L Chloride 103.0 102.0 (98-107) mmol/L Carbon Dioxide (21-33) mmol/L Anion Gap (10-20) BUN (7-21) mg/dL Creatinine (0.8-1.5) mg/dl Est GFR ( Amer) Est GFR (Non-Af Amer) POC Glucose (mg/dL) (65-110) mg/dL Random Glucose (70-110) mg/dL Calcium (8.4-10.5) mg/dL Phosphorus (2.5-4.5) mg/dL Magnesium (1.7-2.2) mg/dL Total Bilirubin (0.2-1.3) mg/dL AST (17-59) U/L ALT (7-56) U/L Alkaline Phosphatase (38-126) U/L Lactate Dehydrogenase (333-699) U/L Total Creatine Kinase (35-230) U/L Troponin I ng/mL NT-Pro-B Natriuret Pep (0-450) pg/mL Total Protein (5.8-8.3) g/dL Albumin (3.0-4.8) g/dL Globulin gm/dL Albumin/Globulin Ratio (1.1-1.8) TSH 3rd Generation (0.46-4.68) mIU/mL Venous Blood Potassium 4.3 4.6 (3.6-5.2) mmol/L Urine Color Yellow (YELLOW) Urine Appearance Turbid (CLEAR) Urine pH 6.0 (4.7-8.0) Ur Specific [place] 1.025 (1.005-1.035) Urine Protein Trace H (<30 mg/dL) mg/dL Urine Glucose (UA) Negative (NEGATIVE) mg/dL Urine Ketones Negative (NEGATIVE) mg/dL Urine Blood Trace-intact H (NEGATIVE) Urine Nitrate Negative (NEGATIVE) Urine Bilirubin Negative (NEGATIVE) Urine Urobilinogen 0.2 (<1 E.U./dL) E.U./dL Ur Leukocyte Esterase Large H (NEGATIVE) Lizzeth/uL Urine RBC 0 - 2 (0-2) /hpf Urine WBC Tntc (0-6) /hpf Urine Other Uyeast 12/22/17 12/22/17 12/22/17 Range/Units 19:22 19:20 19:20 WBC (4.5-11.0) 10^3/ul RBC (3.5-6.1) 10^6/uL Hgb (14.0-18.0) g/dL Hct (42.0-52.0) % MCV (80.0-105.0) fl MCH (25.0-35.0) pg MCHC (31.0-37.0) g/dl RDW (11.5-14.5) % Plt Count (120.0-450.0) 10^3/uL MPV (7.0-11.0) fl Gran % (50.0-68.0) % Lymph % (Auto) (22.0-35.0) % [place] % (Auto) (1.0-6.0) % Eos % (Auto) (1.5-5.0) % Baso % (Auto) (0.0-3.0) % Gran # (1.4-6.5) Lymph # (Auto) (1.2-3.4) [place] # (Auto) (0.1-0.6) Eos # (Auto) (0.0-0.7) Baso # (Auto) (0.0-2.0) K/mm3 PT 15.0 H (9.4-12.5) SECONDS INR 1.31 APTT 30.2 (25.1-36.5) Seconds pO2 (30-55) mm/Hg VBG pH (7.32-7.43) VBG pCO2 (40-60) VBG HCO3 (21-28) mmol/l VBG Total CO2 (22-28) mmol.L VBG O2 Sat (Calc) (40-65) % VBG Base Excess (0.0-2.0) mmol/L VBG Potassium (3.6-5.2) mmol/L Glucose (75-110) mg/dl Lactate (0.7-2.1) mmol/L FiO2 % Sodium 139 (132-148) mmol/L Potassium 5.3 H (3.6-5.0) mmol/L Chloride 101 (98-107) mmol/L Carbon Dioxide 27 (21-33) mmol/L Anion Gap 16 (10-20) BUN 20 (7-21) mg/dL Creatinine 1.0 (0.8-1.5) mg/dl Est GFR ( Amer) > 60 Est GFR (Non-Af Amer) > 60 POC Glucose (mg/dL) 153 H (65-110) mg/dL Random Glucose 146 H (70-110) mg/dL Calcium 9.6 (8.4-10.5) mg/dL Phosphorus (2.5-4.5) mg/dL Magnesium 1.8 (1.7-2.2) mg/dL Total Bilirubin 2.6 H (0.2-1.3) mg/dL AST 27 (17-59) U/L ALT 24 (7-56) U/L Alkaline Phosphatase 61 (38-126) U/L Lactate Dehydrogenase 422 (333-699) U/L Total Creatine Kinase 29 L (35-230) U/L Troponin I 0.13 H* D ng/mL NT-Pro-B Natriuret Pep 1730 H (0-450) pg/mL Total Protein 6.1 (5.8-8.3) g/dL Albumin 3.9 (3.0-4.8) g/dL Globulin 2.2 gm/dL Albumin/Globulin Ratio 1.8 (1.1-1.8) TSH 3rd Generation (0.46-4.68) mIU/mL Venous Blood Potassium (3.6-5.2) mmol/L Urine Color (YELLOW) Urine Appearance (CLEAR) Urine pH (4.7-8.0) Ur Specific [place] (1.005-1.035) Urine Protein (<30 mg/dL) mg/dL Urine Glucose (UA) (NEGATIVE) mg/dL Urine Ketones (NEGATIVE) mg/dL Urine Blood (NEGATIVE) Urine Nitrate (NEGATIVE) Urine Bilirubin (NEGATIVE) Urine Urobilinogen (<1 E.U./dL) E.U./dL Ur Leukocyte Esterase (NEGATIVE) Lizzeth/uL Urine RBC (0-2) /hpf Urine WBC (0-6) /hpf Urine Other 12/22/17 Range/Units 19:20 WBC 6.2 (4.5-11.0) 10^3/ul RBC 4.56 (3.5-6.1) 10^6/uL Hgb 14.0 D (14.0-18.0) g/dL Hct 40.5 L (42.0-52.0) % MCV 88.8 (80.0-105.0) fl MCH 30.7 (25.0-35.0) pg MCHC 34.6 (31.0-37.0) g/dl RDW 15.4 H (11.5-14.5) % Plt Count 82 L (120.0-450.0) 10^3/uL MPV 9.5 (7.0-11.0) fl Gran % 81.9 H (50.0-68.0) % Lymph % (Auto) 9.3 L (22.0-35.0) % [place] % (Auto) 8.3 H (1.0-6.0) % Eos % (Auto) 0.3 L (1.5-5.0) % Baso % (Auto) 0.2 (0.0-3.0) % Gran # 5.04 (1.4-6.5) Lymph # (Auto) 0.6 L (1.2-3.4) [place] # (Auto) 0.5 (0.1-0.6) Eos # (Auto) 0.0 (0.0-0.7) Baso # (Auto) 0.01 (0.0-2.0) K/mm3 PT (9.4-12.5) SECONDS INR APTT (25.1-36.5) Seconds pO2 (30-55) mm/Hg VBG pH (7.32-7.43) VBG pCO2 (40-60) VBG HCO3 (21-28) mmol/l VBG Total CO2 (22-28) mmol.L VBG O2 Sat (Calc) (40-65) % VBG Base Excess (0.0-2.0) mmol/L VBG Potassium (3.6-5.2) mmol/L Glucose (75-110) mg/dl Lactate (0.7-2.1) mmol/L FiO2 % Sodium (132-148) mmol/L Potassium (3.6-5.0) mmol/L Chloride (98-107) mmol/L Carbon Dioxide (21-33) mmol/L Anion Gap (10-20) BUN (7-21) mg/dL Creatinine (0.8-1.5) mg/dl Est GFR ( Amer) Est GFR (Non-Af Amer) POC Glucose (mg/dL) (65-110) mg/dL Random Glucose (70-110) mg/dL Calcium (8.4-10.5) mg/dL Phosphorus (2.5-4.5) mg/dL Magnesium (1.7-2.2) mg/dL Total Bilirubin (0.2-1.3) mg/dL AST (17-59) U/L ALT (7-56) U/L Alkaline Phosphatase (38-126) U/L Lactate Dehydrogenase (333-699) U/L Total Creatine Kinase (35-230) U/L Troponin I ng/mL NT-Pro-B Natriuret Pep (0-450) pg/mL Total Protein (5.8-8.3) g/dL Albumin (3.0-4.8) g/dL Globulin gm/dL Albumin/Globulin Ratio (1.1-1.8) TSH 3rd Generation (0.46-4.68) mIU/mL Venous Blood Potassium (3.6-5.2) mmol/L Urine Color (YELLOW) Urine Appearance (CLEAR) Urine pH (4.7-8.0) Ur Specific [place] (1.005-1.035) Urine Protein (<30 mg/dL) mg/dL Urine Glucose (UA) (NEGATIVE) mg/dL Urine Ketones (NEGATIVE) mg/dL Urine Blood (NEGATIVE) Urine Nitrate (NEGATIVE) Urine Bilirubin (NEGATIVE) Urine Urobilinogen (<1 E.U./dL) E.U./dL Ur Leukocyte Esterase (NEGATIVE) Lizzeth/uL Urine RBC (0-2) /hpf Urine WBC (0-6) /hpf Urine Other Laboratory Results - last 24 hr 12/22/17 12/22/17 12/22/17 19:20 19:20 19:20 WBC 6.2 RBC 4.56 Hgb 14.0 D Hct 40.5 L MCV 88.8 MCH 30.7 MCHC 34.6 RDW 15.4 H Plt Count 82 L MPV 9.5 Gran % 81.9 H Lymph % (Auto) 9.3 L [place] % (Auto) 8.3 H Eos % (Auto) 0.3 L Baso % (Auto) 0.2 Gran # 5.04 Lymph # (Auto) 0.6 L [place] # (Auto) 0.5 Eos # (Auto) 0.0 Baso # (Auto) 0.01 PT 15.0 H INR 1.31 APTT 30.2 pO2 VBG pH VBG pCO2 VBG HCO3 VBG Total CO2 VBG O2 Sat (Calc) VBG Base Excess VBG Potassium Glucose Lactate FiO2 Sodium 139 Potassium 5.3 H Chloride 101 Carbon Dioxide 27 Anion Gap 16 BUN 20 Creatinine 1.0 Est GFR ( Amer) > 60 Est GFR (Non-Af Amer) > 60 POC Glucose (mg/dL) Random Glucose 146 H Calcium 9.6 Phosphorus Magnesium 1.8 Total Bilirubin 2.6 H AST 27 ALT 24 Alkaline Phosphatase 61 Lactate Dehydrogenase 422 Total Creatine Kinase 29 L Troponin I 0.13 H* D NT-Pro-B Natriuret Pep 1730 H Total Protein 6.1 Albumin 3.9 Globulin 2.2 Albumin/Globulin Ratio 1.8 TSH 3rd Generation Venous Blood Potassium Urine Color Urine Appearance Urine pH Ur Specific [place] Urine Protein Urine Glucose (UA) Urine Ketones Urine Blood Urine Nitrate Urine Bilirubin Urine Urobilinogen Ur Leukocyte Esterase Urine RBC Urine WBC Urine Other 12/22/17 12/22/17 12/22/17 19:22 19:29 19:41 WBC RBC Hgb Hct MCV MCH MCHC RDW Plt Count MPV Gran % Lymph % (Auto) [place] % (Auto) Eos % (Auto) Baso % (Auto) Gran # Lymph # (Auto) [place] # (Auto) Eos # (Auto) Baso # (Auto) PT INR APTT pO2 29 L VBG pH 7.28 L VBG pCO2 60.0 VBG HCO3 28.2 H VBG Total CO2 30.0 H VBG O2 Sat (Calc) 50.3 VBG Base Excess 0.1 VBG Potassium 4.6 Glucose 147 H Lactate 5.3 H* FiO2 21.0 Sodium 136.0 Potassium Chloride 102.0 Carbon Dioxide Anion Gap BUN Creatinine Est GFR ( Amer) Est GFR (Non-Af Amer) POC Glucose (mg/dL) 153 H Random Glucose Calcium Phosphorus Magnesium Total Bilirubin AST ALT Alkaline Phosphatase Lactate Dehydrogenase Total Creatine Kinase Troponin I NT-Pro-B Natriuret Pep Total Protein Albumin Globulin Albumin/Globulin Ratio TSH 3rd Generation Venous Blood Potassium 4.6 Urine Color Yellow Urine Appearance Turbid Urine pH 6.0 Ur Specific [place] 1.025 Urine Protein Trace H Urine Glucose (UA) Negative Urine Ketones Negative Urine Blood Trace-intact H Urine Nitrate Negative Urine Bilirubin Negative Urine Urobilinogen 0.2 Ur Leukocyte Esterase Large H Urine RBC 0 - 2 Urine WBC Tntc Urine Other Uyeast 12/22/17 12/23/17 12/23/17 23:00 00:55 02:37 WBC RBC Hgb Hct MCV MCH MCHC RDW Plt Count MPV Gran % Lymph % (Auto) [place] % (Auto) Eos % (Auto) Baso % (Auto) Gran # Lymph # (Auto) [place] # (Auto) Eos # (Auto) Baso # (Auto) PT INR APTT pO2 51 VBG pH 7.35 VBG pCO2 48.0 VBG HCO3 26.5 VBG Total CO2 28.0 VBG O2 Sat (Calc) 85.8 H VBG Base Excess 0.3 VBG Potassium 4.3 Glucose 175 H Lactate 4.0 H* FiO2 21.0 Sodium 135.0 Potassium Chloride 103.0 Carbon Dioxide Anion Gap BUN Creatinine Est GFR ( Amer) Est GFR (Non-Af Amer) POC Glucose (mg/dL) 124 H Random Glucose Calcium Phosphorus Magnesium Total Bilirubin AST ALT Alkaline Phosphatase Lactate Dehydrogenase Total Creatine Kinase Troponin I 0.09 D NT-Pro-B Natriuret Pep Total Protein Albumin Globulin Albumin/Globulin Ratio TSH 3rd Generation Venous Blood Potassium 4.3 Urine Color Urine Appearance Urine pH Ur Specific [place] Urine Protein Urine Glucose (UA) Urine Ketones Urine Blood Urine Nitrate Urine Bilirubin Urine Urobilinogen Ur Leukocyte Esterase Urine RBC Urine WBC Urine Other 12/23/17 12/23/17 12/23/17 06:00 06:00 06:30 WBC 3.9 L D RBC 3.73 Hgb 11.2 L D Hct 32.7 L MCV 87.7 MCH 30.0 MCHC 34.3 RDW 15.5 H Plt Count 75 L MPV 9.5 Gran % 81.7 H Lymph % (Auto) 9.7 L [place] % (Auto) 7.6 H Eos % (Auto) 1.0 L Baso % (Auto) 0.0 Gran # 3.21 Lymph # (Auto) 0.4 L [place] # (Auto) 0.3 Eos # (Auto) 0.0 Baso # (Auto) 0.00 PT INR APTT pO2 VBG pH VBG pCO2 VBG HCO3 VBG Total CO2 VBG O2 Sat (Calc) VBG Base Excess VBG Potassium Glucose Lactate FiO2 Sodium 138 Potassium 3.5 L Chloride 106 Carbon Dioxide 26 Anion Gap 10 BUN 18 Creatinine 0.8 Est GFR ( Amer) > 60 Est GFR (Non-Af Amer) > 60 POC Glucose (mg/dL) Random Glucose 95 Calcium 8.1 L Phosphorus 2.1 L Magnesium 1.7 Total Bilirubin 2.8 H AST 19 ALT 26 Alkaline Phosphatase 54 Lactate Dehydrogenase Total Creatine Kinase Troponin I 0.10 NT-Pro-B Natriuret Pep 1420 H Total Protein 4.9 L Albumin 2.8 L Globulin 2.1 Albumin/Globulin Ratio 1.3 TSH 3rd Generation 6.93 H Venous Blood Potassium Urine Color Urine Appearance Urine pH Ur Specific [place] Urine Protein Urine Glucose (UA) Urine Ketones Urine Blood Urine Nitrate Urine Bilirubin Urine Urobilinogen Ur Leukocyte Esterase Urine RBC Urine WBC Urine Other 12/23/17 07:37 WBC RBC Hgb Hct MCV MCH MCHC RDW Plt Count MPV Gran % Lymph % (Auto) [place] % (Auto) Eos % (Auto) Baso % (Auto) Gran # Lymph # (Auto) [place] # (Auto) Eos # (Auto) Baso # (Auto) PT INR APTT pO2 VBG pH VBG pCO2 VBG HCO3 VBG Total CO2 VBG O2 Sat (Calc) VBG Base Excess VBG Potassium Glucose Lactate FiO2 Sodium Potassium Chloride Carbon Dioxide Anion Gap BUN Creatinine Est GFR ( Amer) Est GFR (Non-Af Amer) POC Glucose (mg/dL) 111 H Random Glucose Calcium Phosphorus Magnesium Total Bilirubin AST ALT Alkaline Phosphatase Lactate Dehydrogenase Total Creatine Kinase Troponin I NT-Pro-B Natriuret Pep Total Protein Albumin Globulin Albumin/Globulin Ratio TSH 3rd Generation Venous Blood Potassium Urine Color Urine Appearance Urine pH Ur Specific [place] Urine Protein Urine Glucose (UA) Urine Ketones Urine Blood Urine Nitrate Urine Bilirubin Urine Urobilinogen Ur Leukocyte Esterase Urine RBC Urine WBC Urine Other EKG/Cardiology Studies: Cardiology / EKG Studies 12/22/17 18:42 ELECTROCARDIOGRAM Stat Comment: Reason For Exam: ams 12/23/17 06:42 ELECTROCARDIOGRAM Q6H Comment: Reason For Exam: nstemi Addendum Addendum: 12/23/17 14:34 ICU Attending Addendum: Patient seen and examined. Case reviewed on round with housestaff. Agree with resident note above with the following additions/exceptions: 77 M hx of Alzheimer's dementia, prior PNA, annie fungemia, CHF (last EF 25), CAD, HLD, and MDS admitted from [facility] with sepsis found to have BL LL infiltrates/consolidation on CXR ICU indicatoin was hypoxemia and borderline low BP This morning there was a large amount of blood suctioned collectively overnight (apparently from his mouth); on exam dry blood around his nares, I did not see active bleeding from his nose. he did not cough blood infront of me Given his hx of MDS, With the large amount of blood, incr oxygen requirmeents and BL infiltrates on CXR my I want to ensure this is not gross hemoptysis (will check CTA of chest his CR is normal). -hydrate gently (caution with low EF) It is possible this is a posterior epistaxis thus being suctioned from his mouth Cont abx as per ID cont HFNC for now, verify code status titrate to 88-92% sat DVT ppx: SCDs, hold heparin for now. resume if CT neg and no bleeding rest of care above Ruby Gusman MD Code Number [facility] Time: 41 mins
[2017-12-23] MEDS: Vancomycin 1gm in NS 250ml 1 GM/250 ML BAG IVPB SCH (09:38)
[2017-12-23] MEDS ORDERED: Potassium Phosphate 3 mmol/ml Inj IV ONE (09:47)
--- NOTE | 2017-12-23 09:57 | RAD ---
Date of service: 12/22/2017 HISTORY: sepsis COMPARISON: 10/10/2017 FINDINGS: LUNGS: There is worsening consolidation in the right lower lobe. The left lung is clear. PLEURA: No significant pleural effusion identified, no pneumothorax apparent. CARDIOVASCULAR: Normal. OSSEOUS STRUCTURES: No significant abnormalities. VISUALIZED UPPER ABDOMEN: Normal. OTHER FINDINGS: None. IMPRESSION: Worsening consolidation in the right lower lobe. Findings are most compatible with pneumonia. Follow-up after medical management is recommended to ensure complete resolution.
[2017-12-23] MEDS ORDERED: Enoxaparin 40 mg Syringe SC SCH (10:00)
[2017-12-23] MEDS ORDERED: levoFLOXacin 750 mg in D5W 750 MG/150 ML BAG IVPB SCH (10:00)
[2017-12-23] MEDS ORDERED: Potassium Phosphate 15 MMOLE in Sodium Chloride 0.9% 250 ML IVPB ONE (10:00)
--- NOTE | 2017-12-23 10:21 | CARD ---
APPROVED REPORT Date of service: 12/23/2017 EKG Measurement Heart [id number] <Conclusion> Normal sinus rhythm Low voltage QRS Nonspecific ST abnormality Abnormal ECG
[2017-12-23] MEDS ORDERED: Iohexol 350 MG/100 ML VIAL ONE (10:58)
[2017-12-23] MEDS: levoFLOXacin 750 mg in D5W 750 MG/150 ML BAG IVPB SCH (12:25)
--- NOTE | 2017-12-23 12:47 | RAD ---
Date of service: 12/23/2017 HISTORY: PNA COMPARISON: 12/22/2017 FINDINGS: LUNGS: There is an increasing alveolar infiltrate in the right lung PLEURA: No significant pleural effusion identified, no pneumothorax apparent. CARDIOVASCULAR: Normal. OSSEOUS STRUCTURES: No significant abnormalities. VISUALIZED UPPER ABDOMEN: Normal. OTHER FINDINGS: None. IMPRESSION: Increasing alveolar infiltrate in the right lung
[2017-12-23] MEDS: Sodium Chloride 0.9% 1,000 ML IV SCH (12:52)
--- NOTE | 2017-12-23 13:31 | CON ---
DATE: 12/23/2017 LOCATION: The patient was seen in room 129, bed 2. CHIEF COMPLAINT: Weakness for several days. HISTORY OF PRESENT ILLNESS: This is a 77-year-old male with Alzheimer's, congestive heart failure and hyperlipidemia who was in the Emergency Room for evaluation of pneumonia. The patient was at the assisted; in the assisted, had fevers and chills. The patient also has dementia. The patient's family member is present who gives also further information. REVIEW OF SYSTEMS: The 13-point review of systems is performed and there have been fevers reported and there is cough, mild shortness of breath. There is no abdominal pain. No diarrhea or constipation. No bright red blood per rectum. No melena. PAST MEDICAL HISTORY: Significant for Alzheimer's, congestive heart failure, hypertension, hemolytic anemia, prostate cancer, depression, acute kidney injury, annie fungemia, bowel obstruction and a history of ESBL E. coli bacteremia, history of Klebsiella urinary tract infection. PAST SURGICAL HISTORY: Noncontributory. ALLERGIES: THE PATIENT IS ALLERGIC TO CEFTRIAXONE, QUESTIONABLE RASH; MEROPENEM IN THE PAST. MEDICATIONS: Reviewed and include magnesium, Flomax, Singulair, metoprolol, Synthroid. PHYSICAL EXAMINATION: VITAL SIGNS: On exam, the patient is in bed with a temperature of 100.1; pulse of 93 and was up to 104; respiratory rate of 31; blood pressure 95/55, it was down to 68/35 and the patient's saturation at 92%. HEENT: Examination is unremarkable. NECK: Supple. LUNGS: Have decreased breath sounds. HEART: Normal S1, S2. ABDOMEN: Soft, nontender. No rebound. No guarding. No masses. DATA: Laboratory examination reveals the patient's white count is 3.9 and hemoglobin of 11. Chemistries reveals a BUN of 18, creatinine of 0.8. The BNP is 1420. Urinalysis is noted, there is too numerous to count WBCs and large leukocyte esterase. There is also yeast and trace protein. The patient had a chest x-ray yesterday, worsening consolidation of the right lower right lower lobe. ASSESSMENT AND PLAN: This is a 77-year-old male with congestive heart failure, dementia, hemolytic anemia, prostate cancer, history of fungemia, history of a defibrillator and hypertension. The patient has had chemotherapy in the past who is admitted with low grade fever or 100.1, tachycardia, dyspnea, leukopenia, hypotension and infiltrate and now the patient with severe sepsis. Secondary to right lower lobe healthcare-associated pneumonia, we will treat the patient with vancomycin and meropenem and pending blood culture, urine culture, MRSA screen, sputum culture. The patient with hypotension, severe sepsis, right lower lobe healthcare-associated pneumonia, on vancomycin and meropenem and with an EKG, which shows a QTc of 431. We will also add Levaquin, pending urine for Legionella antigen. Padilla Goode MD
--- NOTE | 2017-12-23 13:50 | CT ---
Date of service: 12/23/2017 PROCEDURE: CT Chest with contrast (Pulmonary Angiogram) HISTORY: hemoptysis, r/o pulmonary hemorrhage COMPARISON: None available. TECHNIQUE: Axial computed tomography images were obtained of the chest in the pulmonary arterial phase of enhancement. Coronal and sagittal reformatted images were created and reviewed. This CT exam was performed using one or more of the following dose reduction techniques: Automated exposure control, adjustment of the mA and/or kV according to patient size, and/or use of iterative reconstruction technique. Intravenous contrast dose: 100 cc of Omni 350 Radiation dose: Total exam DLP = 523 mGy-cm. FINDINGS: PULMONARY ARTERIES: Unremarkable. No pulmonary embolism. AORTA: No acute findings. No thoracic aortic aneurysm. LUNGS: There is dense consolidation in both lower lobes consistent with pneumonia. PLEURAL SPACES: Small right pleural effusion HEART: Unremarkable. No cardiomegaly. No significant pericardial effusion. LYMPH NODES: No lymphadenopathy. BONES, CHEST WALL: Unremarkable. No fracture or destructive lesion OTHER FINDINGS: Unremarkable. IMPRESSION: No evidence of pulmonary embolus. Dense consolidation in both lower lobes consistent with pneumonia.
--- NOTE | 2017-12-23 14:07 | HP ---
HISTORY OF PRESENT ILLNESS: [facility] He has had a bad cough and congestion. He was on antibiotics orally and cough medicine. He failed. It got worse. He was taken into the emergency room. He is a 77-year-old white man who I have known for many years. He has got Alzheimer's, CHF, high cholesterol, bad coronary artery disease, very severe. He has had a gallbladder infection for many years too. He comes in for cough, congestion and failed outpatient treatment in the [facility]. He has been in the hospital for pneumonia and sepsis before in the past. He had a chest x-ray also, which showed infiltrates. He was on antibiotics for that in the [facility]. It just did not improve and it got worse. We sent him to the ER. He has dementia, type 2 diabetes, hypothyroidism, basal cell carcinoma, melanoma, eczema, GERD, hematuria, incontinence, prostate cancer history I believe. No known family history. Former smoker, no alcohol, no drugs. HE HAS HAD ROCEPHIN ALLERGY IN THE PAST. He is on aspirin, Aricept, Feosol, Synthroid, Lopressor, acetaminophen, Lipitor, Zyrtec, Singulair, cough medicine and Flomax. He is alert, confused. No apparent vision or hearing changes. He is sort of knew me. He is coughing and congested. No chest pain. He can tell me no abdominal pain. PHYSICAL EXAMINATION: VITAL SIGNS: He has a 97.9 temperature, 95 pulse, 82/52 blood pressure, 90% O2 sat to 88% O2 sat on 3 liters nasal cannula. HEENT: Head: Atraumatic, normocephalic, chronically ill appearing, mildly distressed. He is alert to adjust his name. Extraocular muscles are intact. Pupils are equal and reactive to light. Throat is moist. NECK: Supple. HEART: Regular rate. Normal S1, S2. LUNGS: Congestion bilaterally, diffuse rhonchi everywhere. Coughing up lots and lots of phlegm. He has to be suctioned. ABDOMEN: Soft, nontender. Positive bowel sounds. No guarding. No rebound. No CVA tenderness. EXTREMITIES: Have no edema. NEUROLOGIC: GCS is 15. Cranial nerves II-XII grossly intact. Normal speech. SKIN: For the most part is warm and dry. Poor turgor. LYMPHATICS: Thyroid midline. No palpable appreciable lymphadenopathy. MEDICATIONS: On medicines right now, he is on acetylcysteine, albuterol, DuoNebs, Lipitor, potassium replacement, Protonix, Pulmicort, vancomycin IV and IV fluids. LABORATORY DATA: He has a 138 sodium, potassium 3.5, it needs to be replaced. BUN is 80, creatinine 0.8, GFR is greater than 60, sugar is 95, calcium 8.1, phosphorous 2.1, magnesium 1.7, total bili is 2.8, AST is 19, ALT is 26, alk phos 54, troponin is 0.1. BNP is 1420, total protein is 4.9. His white count is 3.9, hemoglobin 11.2, it was 14 when he came in, 32.7 hematocrit with a 75 platelets. He had a 5.3 lactate, it is down to 4. He had large leukocytes, too numerous to count white blood cells and urine. He was here with sepsis, pneumonia, UTI, right lower lobe pneumonia, rule out aspiration possibly. He will have consults with Pulmonary, Infectious Disease, Cardiology. I will continue with aggressive treatment and care on Mr. Max Matthew. Also discussed at length with his who was very concerned. Sean Nicholson DO
[2017-12-23 16:15] LABS: HEMOGLOBIN 10.6 g/dL (14.0-18.0); MEAN CELL VOLUME 88.2 fl (80.0-105.0); MEAN CORPUSCULAR HEMOGLOBIN 30.5 pg (25.0-35.0); MEAN CORPUSCULAR HGB CONC 34.5 g/dl (31.0-37.0); MEAN PLATELET VOLUME 9.7 fl (7.0-11.0); RBC 3.48 10^6/uL (3.5-6.1); RED CELL DISTRIBUTION WIDTH 15.6 % (11.5-14.5); WHITE BLOOD COUNT 3.5 10^3/ul (4.5-11.0)
[2017-12-23 16:33] LABS: BLOOD UREA NITROGEN 18 mg/dL (7-21); CALCIUM 7.8 mg/dL (8.4-10.5); GFR NON-AFRICAN AMERICAN > 60
[2017-12-23] MEDS: Meropenem IV 1 gm in NS 1 GM/50 ML BAG IVPB SCH ×2 (17:18→22:54)
--- NOTE | 2017-12-23 19:03 | CON ---
DATE: 12/23/2017 CARDIOLOGY CONSULTATION HISTORY: The patient is a 77-year-old male who presents with lobar consolidation on his CT scan of the chest. The patient's past medical history is notable for dementia and he was found to have non-STEMI with elevated troponin's. Catheterization performed last year shows triple vessel CAD as well as an ejection fraction that was normal in 2017. Currently, his echocardiogram performed in 03/2017, shows a depression of his EF with an EF of 26%. The apex is severely impaired consistent with an anterior wall myocardial infarction. Currently, the patient is unable to give good history. He was given fluids as well as IV antibiotics for supposedly sepsis. PHYSICAL EXAMINATION: GENERAL: The patient is in no acute distress, but he was sedated for his test. VITAL SIGNS: Blood pressure currently is 80 to 90 systolic, heart rate is in the 70s. NECK: Negative JVD. LUNGS: Decreased breath sounds bilaterally. HEART: Reveals S1, S2. EXTREMITIES: Without edema. LABORATORY DATA: Includes an EKG that shows no acute changes. Troponin's are 0.09 and 0.10. BUN and creatinine are unremarkable. Hemoglobin is 11.2. IMPRESSION: 1. [id number] myocardial infarction. 2. History of triple-vessel coronary artery disease. 3. Likely myocardial infarction in the past. 4. Anemia. 5. Pneumonia. 6. Dementia. Given these findings, we guaiac the patient. If there is no evidence for GI bleed that can explain his drop in hemoglobin, we will start him on aspirin. If his pressure does not come back after sedation is resolved, we will consider IV ionotropic therapy. There are no immediate plans for coronary intervention given his multiple comorbidities. Janusz Landry MD
[2017-12-24] MEDS: Albuterol 0.083% Inhal Sol (2.5 mg/3 mL) UD IH SCH ×4 (02:37→20:23)
[2017-12-24] MEDS: Acetylcysteine 20% Inhal Soln (4ml) IH SCH ×4 (02:37→20:23)
[2017-12-24] MEDS: Sodium Chloride 0.9% 1,000 ML IV SCH ×3 (02:41→22:06)
[2017-12-24] MEDS: Meropenem IV 1 gm in NS 1 GM/50 ML BAG IVPB SCH ×3 (05:07→21:14)
[2017-12-24 06:34] LABS: EOS # 0.1 (0.0-0.7); EOS % 2.5 % (1.5-5.0); GRAN # 3.46 (1.4-6.5); GRAN % 85.7 % (50.0-68.0); HEMOGLOBIN 10.3 g/dL (14.0-18.0); LYMPH # 0.2 (1.2-3.4); LYMPH % 5.4 % (22.0-35.0); MEAN CELL VOLUME 87.4 fl (80.0-105.0); MEAN CORPUSCULAR HEMOGLOBIN 30.1 pg (25.0-35.0); MEAN CORPUSCULAR HGB CONC 34.4 g/dl (31.0-37.0); MEAN PLATELET VOLUME 10.2 fl (7.0-11.0); MONO # 0.3 (0.1-0.6); MONO % 6.4 % (1.0-6.0); RBC 3.42 10^6/uL (3.5-6.1); RED CELL DISTRIBUTION WIDTH 15.4 % (11.5-14.5)
[2017-12-24] MEDS: Budesonide 0.5 mg/2 ml Inhal Susp UD IH SCH ×2 (07:14→20:23)
[2017-12-24 07:44] LABS: ALB/GLOB RATIO 1.3 (1.1-1.8); ALBUMIN 2.7 g/dL (3.0-4.8); ALT/SGPT 27 U/L (7-56); AST/SGOT 19 U/L (17-59); BLOOD UREA NITROGEN 15 mg/dL (7-21); CALCIUM 8.2 mg/dL (8.4-10.5); GFR NON-AFRICAN AMERICAN > 60
[2017-12-24] MEDS ORDERED: DOBUTamine 500mg/250ml D5W 500 MG/250 ML BAG ONE (09:07)
--- NOTE | 2017-12-24 09:17 | PN ---
DATE: 12/24/2017 PROGRESS NOTE SUBJECTIVE: I saw him in Intensive Care Unit. He opened his eyes; when I said his name, he looked at me; he smiled. He laughs a little bit. He was breathing fairly well, on oxygen mask. He is on vancomycin, Tylenol, IV fluids, Pulmicort, Protonix, Merrem IV, Lipitor, Levaquin, DuoNebs, albuterol and acetylcysteine; yesterday, was very, very congested; needed to be suctioned greatly. He is doing much better, sounds much better from yesterday. His eyes are open. He might be able to eat today, we will see. OBJECTIVE: VITAL SIGNS: He has a 100.8 temperature, 65 pulse, 24 respiratory rate. On 40% oxygen, he is 99%. He is breathing at 38 breaths per minute. HEENT: His head is atraumatic, normocephalic. His eyes are open now. He did say a few words to me, smiled. HEART: Regular rate. LUNGS: Decreased breath sounds, but for the most part clear. No wheezes, rhonchi or rales that I could auscultate. ABDOMEN: Soft, nontender. Positive bowel sounds. EXTREMITIES: With no edema. DATA: He has a 4 white count, 10.3 hemoglobin, 29.9 hematocrit with 79 platelets. Last lactate was 4. He has a 140 sodium, potassium 3.6, BUN is 50, creatinine 0.8. GFR is greater than 60. Sugar is 115, calcium is 8.2, phosphorus 2.6, magnesium 1.9, total bili is 1.3, AST is 19, ALT is 27, alkaline phosphatase 51, total protein is 4.7. He did have a large leukocyte in the urine. 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 He had a few things going on, an NSTEMI. He has a history of triple-vessel disease and UT in the past, anemia and pneumonia, dementia, UTI. We will continue aggressive treatment and care and probably to stay in the Intensive Care Unit. We will check his labs tomorrow, may be get out of bed to chair and hopefully, could eat better. Sean Nicholson DO [facility] # [id number]
[2017-12-24] MEDS: levoFLOXacin 750 mg in D5W 750 MG/150 ML BAG IVPB SCH (09:52)
[2017-12-24] MEDS: Vancomycin 1gm in NS 250ml 1 GM/250 ML BAG IVPB SCH (09:52)
--- NOTE | 2017-12-24 09:56 | RAD ---
Date of service: 12/24/2017 HISTORY: f/u COMPARISON: 12/23/2017 FINDINGS: LUNGS: No change in right-sided infiltrate PLEURA: No significant pleural effusion identified, no pneumothorax apparent. CARDIOVASCULAR: Normal. OSSEOUS STRUCTURES: No significant abnormalities. VISUALIZED UPPER ABDOMEN: Normal. OTHER FINDINGS: None. IMPRESSION: No change in right-sided infiltrate
--- NOTE | 2017-12-24 10:19 | CP.CCUPN ---
<Noble Metcalf - Last Filed: 12/24/17 10:52> CCU Subjective - Physician Review Subjective (Free Text): Noble Metcalf DO, PGY-1 ICU Progress Note for Dr. Pappas Patient was seen and examined at bedside this AM. He has not had any additional hemoptysis since yesterday. His reports he looks better this AM. CCU Objective - Vital Signs / Intake & Output Vital Signs (Last 4 hours): Vital Signs Pulse Resp BP Pulse Ox 12/24/17 09:10 70 93/53 L 12/24/17 09:00 93/53 L 12/24/17 08:59 63 41 H 97 12/24/17 08:55 92/41 L 12/24/17 08:54 65 36 H 12/24/17 08:53 65 29 H 12/24/17 08:52 66 32 H 12/24/17 08:51 67 30 H 12/24/17 08:50 67 29 H 12/24/17 08:49 61 30 H 12/24/17 08:48 67 29 H 12/24/17 08:47 63 35 H 12/24/17 08:46 65 26 H 12/24/17 08:45 86/50 L 12/24/17 08:44 65 48 H 12/24/17 08:40 65 21 93 L 12/24/17 08:30 66 39 H 87/47 L 95 12/24/17 08:20 69 33 H 94 L 12/24/17 08:16 69 35 H 93/58 L 98 12/24/17 08:10 70 36 H 93 L 12/24/17 08:00 67 38 H 100/55 L 95 12/24/17 07:50 64 32 H 95 12/24/17 07:45 74 35 H 98/62 L 98 12/24/17 07:40 68 33 H 97 12/24/17 07:30 65 26 H 93/59 L 96 12/24/17 07:20 66 27 H 97 12/24/17 07:18 24 12/24/17 07:15 68 61 H 96/57 L 97 12/24/17 07:10 78 34 H 98 12/24/17 07:00 77 59 H 98/68 L 98 12/24/17 06:50 65 34 H 99 12/24/17 06:45 62 32 H 102/60 99 12/24/17 06:40 65 33 H 98 12/24/17 06:30 65 34 H 83/52 L 98 12/24/17 06:20 69 35 H 98 Intake and Output (Last 8hrs): Intake & Output 12/23/17 12/24/17 12/24/17 22:59 06:59 14:59 Intake Total 1170 900 Output Total 550 1500 Balance 620 -600 Intake: IV 1150 900 Right Forearm 1150 900 Oral 20 Output: Urine 550 500 Urethral (Tong) 550 500 Emesis 1000 Other: # Bowel Movements 0 - Physical Exam Physical Exam Limitations: Positive for: Altered Mental Status Head: Positive for: Atraumatic, Normocephalic Pupils: Positive for: PERRL Extroacular Muscles: Positive for: EOMI Conjunctiva: Positive for: Normal Mouth: Positive for: Moist Mucous Membranes Pharnyx: Positive for: Normal. Negative for: ERYTHEMA, EXUDATE Nose (External): Positive for: Atraumatic Nose (Internal): Positive for: Edematous, Boggy Neck: Positive for: Normal Range of Motion. Negative for: JVD Respiratory/Chest: Positive for: Rales (b/l rales auscultated greatest on RLL, improved from yesterday). Negative for: Respiratory Distress, Accessory Muscle Use, Wheezes, Rhonchi Cardiovascular: Positive for: Regular Rate and Rhythm, Normal S1, S2. Negative for: Murmurs, Rub, Gallop Abdomen: Negative for: Distention, Guarding Upper Extremity: Positive for: Normal Inspection. Negative for: Cyanosis, Edema Lower Extremity: Positive for: Normal Inspection. Negative for: Edema Neurological: Positive for: Motor Func Grossly Intact Skin: Positive for: Warm, Dry. Negative for: Rashes Psychiatric: Positive for: Alert, Other (not oriented to person, place, time or situation, this is patient's baseline) - Medications Active Medications: Active Medications Generic Name Dose Route Start Last Admin Trade Name Freq PRN Reason Stop Dose Admin Acetaminophen 650 mg 12/24/17 05:43 12/24/17 06:04 Tylenol 650 Mg Supp RC 650 mg Q4H PRN Administration Fever >100.4 F Acetylcysteine 4 ml 12/23/17 08:00 12/24/17 07:14 Acetylcysteine 20% IH 4 ml [id number] YOLANDA Administration Albuterol Sulfate 2.5 mg 12/23/17 08:00 12/24/17 07:14 Albuterol 0.083% Inhal Ronda (2.5 Mg/3 Ml) Ud IH 2.5 mg [id number] YOLANDA Administration Albuterol/Ipratropium 3 ml 12/22/17 22:57 Duoneb 3 Mg/0.5 Mg (3 Ml) Ud IH Q2H PRN Shortness of Breath Aspirin 300 mg 12/24/17 10:00 12/24/17 09:53 Aspirin Supp RC 300 mg DAILY YOLANDA Administration Atorvastatin Calcium 40 mg 12/22/17 23:15 12/23/17 22:54 Lipitor PO Not Given HS YOLANDA Budesonide 0.5 mg 12/23/17 08:00 12/24/17 07:14 Pulmicort Respules IH 0.5 mg [id number] YOLANDA Administration Sodium Chloride 1,000 mls @ 75 mls/hr 12/22/17 23:00 12/24/17 02:41 Sodium Chloride 0.9% IV 75 mls/hr .[id number] YOLANDA Administration Vancomycin HCl 1 gm in 250 mls @ 167 mls/hr 12/23/17 10:00 12/24/17 09:52 Vancomycin 1gm IVPB 167 mls/hr DAILY YOLANDA Administration Protocol Levofloxacin/Dextrose 750 mg in 150 mls @ 100 mls/hr 12/23/17 11:46 12/24/17 09:52 Levaquin 750mg IVPB 01/01/18 11:47 100 mls/hr DAILY YOLANDA Administration Protocol Meropenem 1 gm in 50 mls @ 12.5 mls/hr 12/23/17 14:00 12/24/17 05:07 Merrem Iv 1 Gm Premix IVPB 01/01/18 14:01 12.5 mls/hr Q8 YOLANDA Administration Protocol Dobutamine HCl/Dextrose 500 mg in 250 mls @ 9.525 mls/hr 12/24/17 08:58 Dobutamine/Dextrose 5% 500mg/250ml IV .Q24H PRN TITRATE PER PROTOCOL Protocol 5 MCG/KG/MIN Pantoprazole Sodium 40 mg 12/23/17 10:00 12/24/17 09:52 Protonix Inj IVP 40 mg DAILY YOLANDA Administration - Patient Studies Lab Studies: Microbiology Studies 12/22/17 13:45 Blood Culture - Preliminary Blood NO GROWTH AFTER 24 HOURS 12/22/17 19:20 Blood Culture - Preliminary Blood NO GROWTH AFTER 24 HOURS 12/23/17 00:35 Gram Stain - Final Sputum Lab Studies 12/24/17 12/24/17 12/23/17 Range/Units 05:30 05:30 21:52 WBC 4.0 L (4.5-11.0) 10^3/ul RBC 3.42 L (3.5-6.1) 10^6/uL Hgb 10.3 L (14.0-18.0) g/dL Hct 29.9 L (42.0-52.0) % MCV 87.4 (80.0-105.0) fl MCH 30.1 (25.0-35.0) pg MCHC 34.4 (31.0-37.0) g/dl RDW 15.4 H (11.5-14.5) % Plt Count 79 L (120.0-450.0) 10^3/uL MPV 10.2 (7.0-11.0) fl Gran % 85.7 H (50.0-68.0) % Lymph % (Auto) 5.4 L (22.0-35.0) % [place] % (Auto) 6.4 H (1.0-6.0) % Eos % (Auto) 2.5 (1.5-5.0) % Baso % (Auto) 0.0 (0.0-3.0) % Gran # 3.46 (1.4-6.5) Lymph # (Auto) 0.2 L (1.2-3.4) [place] # (Auto) 0.3 (0.1-0.6) Eos # (Auto) 0.1 (0.0-0.7) Baso # (Auto) 0.00 (0.0-2.0) K/mm3 Sodium 140 (132-148) mmol/L Potassium 3.6 (3.6-5.0) mmol/L Chloride 110 H (98-107) mmol/L Carbon Dioxide 26 (21-33) mmol/L Anion Gap 8 L (10-20) BUN 15 (7-21) mg/dL Creatinine 0.8 (0.8-1.5) mg/dl Est GFR ( Amer) > 60 Est GFR (Non-Af Amer) > 60 POC Glucose (mg/dL) 103 (65-110) mg/dL Random Glucose 115 H (70-110) mg/dL Calcium 8.2 L (8.4-10.5) mg/dL Phosphorus 2.6 (2.5-4.5) mg/dL Magnesium 1.9 (1.7-2.2) mg/dL Total Bilirubin 1.3 (0.2-1.3) mg/dL AST 19 (17-59) U/L ALT 27 (7-56) U/L Alkaline Phosphatase 51 (38-126) U/L Total Protein 4.7 L (5.8-8.3) g/dL Albumin 2.7 L (3.0-4.8) g/dL Globulin 2.0 gm/dL Albumin/Globulin Ratio 1.3 (1.1-1.8) Procalcitonin (0.19-0.49) NG/ML Ur L.pneumophila Ag (NEGATIVE) 12/23/17 12/23/17 12/23/17 Range/Units 16:16 16:11 16:11 WBC 3.5 L (4.5-11.0) 10^3/ul RBC 3.48 L (3.5-6.1) 10^6/uL Hgb 10.6 L (14.0-18.0) g/dL Hct 30.7 L (42.0-52.0) % MCV 88.2 (80.0-105.0) fl MCH 30.5 (25.0-35.0) pg MCHC 34.5 (31.0-37.0) g/dl RDW 15.6 H (11.5-14.5) % Plt Count 75 L (120.0-450.0) 10^3/uL MPV 9.7 (7.0-11.0) fl Gran % (50.0-68.0) % Lymph % (Auto) (22.0-35.0) % [place] % (Auto) (1.0-6.0) % Eos % (Auto) (1.5-5.0) % Baso % (Auto) (0.0-3.0) % Gran # (1.4-6.5) Lymph # (Auto) (1.2-3.4) [place] # (Auto) (0.1-0.6) Eos # (Auto) (0.0-0.7) Baso # (Auto) (0.0-2.0) K/mm3 Sodium 139 (132-148) mmol/L Potassium 3.9 (3.6-5.0) mmol/L Chloride 107 (98-107) mmol/L Carbon Dioxide 24 (21-33) mmol/L Anion Gap 12 (10-20) BUN 18 (7-21) mg/dL Creatinine 0.8 (0.8-1.5) mg/dl Est GFR ( Amer) > 60 Est GFR (Non-Af Amer) > 60 POC Glucose (mg/dL) 136 H (65-110) mg/dL Random Glucose 123 H (70-110) mg/dL Calcium 7.8 L (8.4-10.5) mg/dL Phosphorus (2.5-4.5) mg/dL Magnesium (1.7-2.2) mg/dL Total Bilirubin (0.2-1.3) mg/dL AST (17-59) U/L ALT (7-56) U/L Alkaline Phosphatase (38-126) U/L Total Protein (5.8-8.3) g/dL Albumin (3.0-4.8) g/dL Globulin gm/dL Albumin/Globulin Ratio (1.1-1.8) Procalcitonin (0.19-0.49) NG/ML Ur L.pneumophila Ag (NEGATIVE) 12/23/17 12/23/17 12/23/17 Range/Units 15:30 10:33 07:37 WBC (4.5-11.0) 10^3/ul RBC (3.5-6.1) 10^6/uL Hgb (14.0-18.0) g/dL Hct (42.0-52.0) % MCV (80.0-105.0) fl MCH (25.0-35.0) pg MCHC (31.0-37.0) g/dl RDW (11.5-14.5) % Plt Count (120.0-450.0) 10^3/uL MPV (7.0-11.0) fl Gran % (50.0-68.0) % Lymph % (Auto) (22.0-35.0) % [place] % (Auto) (1.0-6.0) % Eos % (Auto) (1.5-5.0) % Baso % (Auto) (0.0-3.0) % Gran # (1.4-6.5) Lymph # (Auto) (1.2-3.4) [place] # (Auto) (0.1-0.6) Eos # (Auto) (0.0-0.7) Baso # (Auto) (0.0-2.0) K/mm3 Sodium (132-148) mmol/L Potassium (3.6-5.0) mmol/L Chloride (98-107) mmol/L Carbon Dioxide (21-33) mmol/L Anion Gap (10-20) BUN (7-21) mg/dL Creatinine (0.8-1.5) mg/dl Est GFR ( Amer) Est GFR (Non-Af Amer) POC Glucose (mg/dL) 124 H 111 H (65-110) mg/dL Random Glucose (70-110) mg/dL Calcium (8.4-10.5) mg/dL Phosphorus (2.5-4.5) mg/dL Magnesium (1.7-2.2) mg/dL Total Bilirubin (0.2-1.3) mg/dL AST (17-59) U/L ALT (7-56) U/L Alkaline Phosphatase (38-126) U/L Total Protein (5.8-8.3) g/dL Albumin (3.0-4.8) g/dL Globulin gm/dL Albumin/Globulin Ratio (1.1-1.8) Procalcitonin (0.19-0.49) NG/ML Ur L.pneumophila Ag Negative (NEGATIVE) 12/23/17 12/23/17 12/22/17 Range/Units 06:00 02:37 19:22 WBC (4.5-11.0) 10^3/ul RBC (3.5-6.1) 10^6/uL Hgb (14.0-18.0) g/dL Hct (42.0-52.0) % MCV (80.0-105.0) fl MCH (25.0-35.0) pg MCHC (31.0-37.0) g/dl RDW (11.5-14.5) % Plt Count (120.0-450.0) 10^3/uL MPV (7.0-11.0) fl Gran % (50.0-68.0) % Lymph % (Auto) (22.0-35.0) % [place] % (Auto) (1.0-6.0) % Eos % (Auto) (1.5-5.0) % Baso % (Auto) (0.0-3.0) % Gran # (1.4-6.5) Lymph # (Auto) (1.2-3.4) [place] # (Auto) (0.1-0.6) Eos # (Auto) (0.0-0.7) Baso # (Auto) (0.0-2.0) K/mm3 Sodium (132-148) mmol/L Potassium (3.6-5.0) mmol/L Chloride (98-107) mmol/L Carbon Dioxide (21-33) mmol/L Anion Gap (10-20) BUN (7-21) mg/dL Creatinine (0.8-1.5) mg/dl Est GFR ( Amer) Est GFR (Non-Af Amer) POC Glucose (mg/dL) 124 H 153 H (65-110) mg/dL Random Glucose (70-110) mg/dL Calcium (8.4-10.5) mg/dL Phosphorus (2.5-4.5) mg/dL Magnesium (1.7-2.2) mg/dL Total Bilirubin (0.2-1.3) mg/dL AST (17-59) U/L ALT (7-56) U/L Alkaline Phosphatase (38-126) U/L Total Protein (5.8-8.3) g/dL Albumin (3.0-4.8) g/dL Globulin gm/dL Albumin/Globulin Ratio (1.1-1.8) Procalcitonin 8.41 H (0.19-0.49) NG/ML Ur L.pneumophila Ag (NEGATIVE) Laboratory Results - last 24 hr 12/22/17 12/23/17 12/23/17 19:22 02:37 06:00 WBC RBC Hgb Hct MCV MCH MCHC RDW Plt Count MPV Gran % Lymph % (Auto) [place] % (Auto) Eos % (Auto) Baso % (Auto) Gran # Lymph # (Auto) [place] # (Auto) Eos # (Auto) Baso # (Auto) Sodium Potassium Chloride Carbon Dioxide Anion Gap BUN Creatinine Est GFR ( Amer) Est GFR (Non-Af Amer) POC Glucose (mg/dL) 153 H 124 H Random Glucose Calcium Phosphorus Magnesium Total Bilirubin AST ALT Alkaline Phosphatase Total Protein Albumin Globulin Albumin/Globulin Ratio Procalcitonin 8.41 H Ur L.pneumophila Ag 12/23/17 12/23/17 12/23/17 07:37 10:33 15:30 WBC RBC Hgb Hct MCV MCH MCHC RDW Plt Count MPV Gran % Lymph % (Auto) [place] % (Auto) Eos % (Auto) Baso % (Auto) Gran # Lymph # (Auto) [place] # (Auto) Eos # (Auto) Baso # (Auto) Sodium Potassium Chloride Carbon Dioxide Anion Gap BUN Creatinine Est GFR ( Amer) Est GFR (Non-Af Amer) POC Glucose (mg/dL) 111 H 124 H Random Glucose Calcium Phosphorus Magnesium Total Bilirubin AST ALT Alkaline Phosphatase Total Protein Albumin Globulin Albumin/Globulin Ratio Procalcitonin Ur L.pneumophila Ag Negative 12/23/17 12/23/17 12/23/17 16:11 16:11 16:16 WBC 3.5 L RBC 3.48 L Hgb 10.6 L Hct 30.7 L MCV 88.2 MCH 30.5 MCHC 34.5 RDW 15.6 H Plt Count 75 L MPV 9.7 Gran % Lymph % (Auto) [place] % (Auto) Eos % (Auto) Baso % (Auto) Gran # Lymph # (Auto) [place] # (Auto) Eos # (Auto) Baso # (Auto) Sodium 139 Potassium 3.9 Chloride 107 Carbon Dioxide 24 Anion Gap 12 BUN 18 Creatinine 0.8 Est GFR ( Amer) > 60 Est GFR (Non-Af Amer) > 60 POC Glucose (mg/dL) 136 H Random Glucose 123 H Calcium 7.8 L Phosphorus Magnesium Total Bilirubin AST ALT Alkaline Phosphatase Total Protein Albumin Globulin Albumin/Globulin Ratio Procalcitonin Ur L.pneumophila Ag 12/23/17 12/24/17 12/24/17 21:52 05:30 05:30 WBC 4.0 L RBC 3.42 L Hgb 10.3 L Hct 29.9 L MCV 87.4 MCH 30.1 MCHC 34.4 RDW 15.4 H Plt Count 79 L MPV 10.2 Gran % 85.7 H Lymph % (Auto) 5.4 L [place] % (Auto) 6.4 H Eos % (Auto) 2.5 Baso % (Auto) 0.0 Gran # 3.46 Lymph # (Auto) 0.2 L [place] # (Auto) 0.3 Eos # (Auto) 0.1 Baso # (Auto) 0.00 Sodium 140 Potassium 3.6 Chloride 110 H Carbon Dioxide 26 Anion Gap 8 L BUN 15 Creatinine 0.8 Est GFR ( Amer) > 60 Est GFR (Non-Af Amer) > 60 POC Glucose (mg/dL) 103 Random Glucose 115 H Calcium 8.2 L Phosphorus 2.6 Magnesium 1.9 Total Bilirubin 1.3 AST 19 ALT 27 Alkaline Phosphatase 51 Total Protein 4.7 L Albumin 2.7 L Globulin 2.0 Albumin/Globulin Ratio 1.3 Procalcitonin Ur L.pneumophila Ag Fingerstick Blood Sugar Results: 118 Review of Systems - Review of Systems Systems not reviewed;Unavailable: Dementia Assessment/Plan - Assessment and Plan (Free Text) Assessment: 77 yo M brought in from retirement with healthcare associated PNA in right middle and right lower lobes. Admitted to the ICU for management of sepsis (hypotension and tachycardia). Plan: Neuro: Alert but not oriented to person, time, place, or situation History was obtained from at bedside Per , this is his baseline and he has a history of Alzheimer's dementia Cardio: states his BP tends to run low MAP currently 78, maintain MAP > 65 HR less than 100 overnight On dobutamine per cardiology Continue to monitor Has hx of CHF with last EF of 25% Cardiology following, recs appreciated Pulm: Hemoptysis resolved Was likely 2/2 suctioning CTA completed with no acute findings Hypoxemic on arrival, required high flow O2 Now SpO2 is >95 on 4 L NC Continue to maintain SpO2 > 93% Consider ABG if respiratory status worsens Continue duo neb treatments Q2h PRN and Q6h scheduled GI: Swallow eval not completed yesterday due to patient condition F/u swallow eval recs before restarting diet /Nephro: UA positive for pyuria, significant yeast, and leuk esterase Tong in place BUN/Cr stable, continue to monitor Maintain euvolemia Endocrine: Maintain euglycemia Was receiving POC finger sticks, no longer needed ID: Received empiric vanc, flagyl, and cipro in ED On levaquin, vanc, and merem per ID ID following, recs appreciated Heme/onc: Hemoptysis resolved H/H stable Continue to monitor H/H and for signs of HD compromise DVT PPX: will restart lovenox, SCDs GI PPX: Protonix Full Code Will continue to monitor in MICU Case and plan reviewed and discussed with my attending Dr. Elyse Metcalf, IM Resident PGY-1 <Emerson Pappas - Last Filed: 12/24/17 12:37> CCU Objective - Vital Signs / Intake & Output Vital Signs (Last 4 hours): Vital Signs Pulse Resp BP Pulse Ox 12/24/17 10:00 75 12/24/17 09:10 70 93/53 L 12/24/17 09:00 93/53 L 12/24/17 08:59 63 41 H 97 12/24/17 08:55 92/41 L 12/24/17 08:54 65 36 H 12/24/17 08:53 65 29 H 12/24/17 08:52 66 32 H 12/24/17 08:51 67 30 H 12/24/17 08:50 67 29 H 12/24/17 08:49 61 30 H 12/24/17 08:48 67 29 H 12/24/17 08:47 63 35 H 12/24/17 08:46 65 26 H 12/24/17 08:45 86/50 L 12/24/17 08:44 65 48 H 12/24/17 08:40 65 21 93 L Intake and Output (Last 8hrs): Intake & Output 12/23/17 12/24/17 12/24/17 22:59 06:59 14:59 Intake Total 1170 900 Output Total 550 1500 Balance 620 -600 Intake: IV 1150 900 Right Forearm 1150 900 Oral 20 Output: Urine 550 500 Urethral (Tong) 550 500 Emesis 1000 Other: # Bowel Movements 0 - Medications Active Medications: Active Medications Generic Name Dose Route Start Last Admin Trade Name Freq PRN Reason Stop Dose Admin Acetaminophen 650 mg 12/24/17 05:43 12/24/17 06:04 Tylenol 650 Mg Supp RC 650 mg Q4H PRN Administration Fever >100.4 F Acetylcysteine 4 ml 12/23/17 08:00 12/24/17 07:14 Acetylcysteine 20% IH 4 ml [id number] YOLANDA Administration Albuterol Sulfate 2.5 mg 12/23/17 08:00 12/24/17 07:14 Albuterol 0.083% Inhal Ronda (2.5 Mg/3 Ml) Ud IH 2.5 mg [id number] YOLANDA Administration Albuterol/Ipratropium 3 ml 12/22/17 22:57 Duoneb 3 Mg/0.5 Mg (3 Ml) Ud IH Q2H PRN Shortness of Breath Aspirin 300 mg 12/24/17 10:00 12/24/17 09:53 Aspirin Supp RC 300 mg DAILY YOLANDA Administration Atorvastatin Calcium 40 mg 12/22/17 23:15 12/23/17 22:54 Lipitor PO Not Given HS YOLANDA Budesonide 0.5 mg 12/23/17 08:00 12/24/17 07:14 Pulmicort Respules IH 0.5 mg [id number] YOLANDA Administration Enoxaparin Sodium 40 mg 12/24/17 10:45 Lovenox SC DAILY YOLANDA Protocol Sodium Chloride 1,000 mls @ 75 mls/hr 12/22/17 23:00 12/24/17 02:41 Sodium Chloride 0.9% IV 75 mls/hr .[id number] YOLANDA Administration Vancomycin HCl 1 gm in 250 mls @ 167 mls/hr 12/23/17 10:00 12/24/17 09:52 Vancomycin 1gm IVPB 167 mls/hr DAILY YOLANDA Administration Protocol Levofloxacin/Dextrose 750 mg in 150 mls @ 100 mls/hr 12/23/17 11:46 12/24/17 09:52 Levaquin 750mg IVPB 01/01/18 11:47 100 mls/hr DAILY YOLANDA Administration Protocol Meropenem 1 gm in 50 mls @ 12.5 mls/hr 12/23/17 14:00 12/24/17 05:07 Merrem Iv 1 Gm Premix IVPB 01/01/18 14:01 12.5 mls/hr Q8 YOLANDA Administration Protocol Dobutamine HCl/Dextrose 500 mg in 250 mls @ 9.525 mls/hr 12/24/17 08:58 Dobutamine/Dextrose 5% 500mg/250ml IV .Q24H PRN TITRATE PER PROTOCOL Protocol 5 MCG/KG/MIN Pantoprazole Sodium 40 mg 12/23/17 10:00 12/24/17 09:52 Protonix Inj IVP 40 mg DAILY YOLANDA Administration - Patient Studies Lab Studies: Microbiology Studies 12/22/17 13:45 Blood Culture - Preliminary Blood NO GROWTH AFTER 24 HOURS 12/22/17 19:20 Blood Culture - Preliminary Blood NO GROWTH AFTER 24 HOURS 12/23/17 00:35 Gram Stain - Final Sputum Lab Studies 12/24/17 12/24/17 12/23/17 Range/Units 05:30 05:30 21:52 WBC 4.0 L (4.5-11.0) 10^3/ul RBC 3.42 L (3.5-6.1) 10^6/uL Hgb 10.3 L (14.0-18.0) g/dL Hct 29.9 L (42.0-52.0) % MCV 87.4 (80.0-105.0) fl MCH 30.1 (25.0-35.0) pg MCHC 34.4 (31.0-37.0) g/dl RDW 15.4 H (11.5-14.5) % Plt Count 79 L (120.0-450.0) 10^3/uL MPV 10.2 (7.0-11.0) fl Gran % 85.7 H (50.0-68.0) % Lymph % (Auto) 5.4 L (22.0-35.0) % [place] % (Auto) 6.4 H (1.0-6.0) % Eos % (Auto) 2.5 (1.5-5.0) % Baso % (Auto) 0.0 (0.0-3.0) % Gran # 3.46 (1.4-6.5) Lymph # (Auto) 0.2 L (1.2-3.4) [place] # (Auto) 0.3 (0.1-0.6) Eos # (Auto) 0.1 (0.0-0.7) Baso # (Auto) 0.00 (0.0-2.0) K/mm3 Sodium 140 (132-148) mmol/L Potassium 3.6 (3.6-5.0) mmol/L Chloride 110 H (98-107) mmol/L Carbon Dioxide 26 (21-33) mmol/L Anion Gap 8 L (10-20) BUN 15 (7-21) mg/dL Creatinine 0.8 (0.8-1.5) mg/dl Est GFR ( Amer) > 60 Est GFR (Non-Af Amer) > 60 POC Glucose (mg/dL) 103 (65-110) mg/dL Random Glucose 115 H (70-110) mg/dL Calcium 8.2 L (8.4-10.5) mg/dL Phosphorus 2.6 (2.5-4.5) mg/dL Magnesium 1.9 (1.7-2.2) mg/dL Total Bilirubin 1.3 (0.2-1.3) mg/dL AST 19 (17-59) U/L ALT 27 (7-56) U/L Alkaline Phosphatase 51 (38-126) U/L Total Protein 4.7 L (5.8-8.3) g/dL Albumin 2.7 L (3.0-4.8) g/dL Globulin 2.0 gm/dL Albumin/Globulin Ratio 1.3 (1.1-1.8) Procalcitonin (0.19-0.49) NG/ML Ur L.pneumophila Ag (NEGATIVE) 12/23/17 12/23/17 12/23/17 Range/Units 16:16 16:11 16:11 WBC 3.5 L (4.5-11.0) 10^3/ul RBC 3.48 L (3.5-6.1) 10^6/uL Hgb 10.6 L (14.0-18.0) g/dL Hct 30.7 L (42.0-52.0) % MCV 88.2 (80.0-105.0) fl MCH 30.5 (25.0-35.0) pg MCHC 34.5 (31.0-37.0) g/dl RDW 15.6 H (11.5-14.5) % Plt Count 75 L (120.0-450.0) 10^3/uL MPV 9.7 (7.0-11.0) fl Gran % (50.0-68.0) % Lymph % (Auto) (22.0-35.0) % [place] % (Auto) (1.0-6.0) % Eos % (Auto) (1.5-5.0) % Baso % (Auto) (0.0-3.0) % Gran # (1.4-6.5) Lymph # (Auto) (1.2-3.4) [place] # (Auto) (0.1-0.6) Eos # (Auto) (0.0-0.7) Baso # (Auto) (0.0-2.0) K/mm3 Sodium 139 (132-148) mmol/L Potassium 3.9 (3.6-5.0) mmol/L Chloride 107 (98-107) mmol/L Carbon Dioxide 24 (21-33) mmol/L Anion Gap 12 (10-20) BUN 18 (7-21) mg/dL Creatinine 0.8 (0.8-1.5) mg/dl Est GFR ( Amer) > 60 Est GFR (Non-Af Amer) > 60 POC Glucose (mg/dL) 136 H (65-110) mg/dL Random Glucose 123 H (70-110) mg/dL Calcium 7.8 L (8.4-10.5) mg/dL Phosphorus (2.5-4.5) mg/dL Magnesium (1.7-2.2) mg/dL Total Bilirubin (0.2-1.3) mg/dL AST (17-59) U/L ALT (7-56) U/L Alkaline Phosphatase (38-126) U/L Total Protein (5.8-8.3) g/dL Albumin (3.0-4.8) g/dL Globulin gm/dL Albumin/Globulin Ratio (1.1-1.8) Procalcitonin (0.19-0.49) NG/ML Ur L.pneumophila Ag (NEGATIVE) 12/23/17 12/23/17 12/23/17 Range/Units 15:30 10:33 06:00 WBC (4.5-11.0) 10^3/ul RBC (3.5-6.1) 10^6/uL Hgb (14.0-18.0) g/dL Hct (42.0-52.0) % MCV (80.0-105.0) fl MCH (25.0-35.0) pg MCHC (31.0-37.0) g/dl RDW (11.5-14.5) % Plt Count (120.0-450.0) 10^3/uL MPV (7.0-11.0) fl Gran % (50.0-68.0) % Lymph % (Auto) (22.0-35.0) % [place] % (Auto) (1.0-6.0) % Eos % (Auto) (1.5-5.0) % Baso % (Auto) (0.0-3.0) % Gran # (1.4-6.5) Lymph # (Auto) (1.2-3.4) [place] # (Auto) (0.1-0.6) Eos # (Auto) (0.0-0.7) Baso # (Auto) (0.0-2.0) K/mm3 Sodium (132-148) mmol/L Potassium (3.6-5.0) mmol/L Chloride (98-107) mmol/L Carbon Dioxide (21-33) mmol/L Anion Gap (10-20) BUN (7-21) mg/dL Creatinine (0.8-1.5) mg/dl Est GFR ( Amer) Est GFR (Non-Af Amer) POC Glucose (mg/dL) 124 H (65-110) mg/dL Random Glucose (70-110) mg/dL Calcium (8.4-10.5) mg/dL Phosphorus (2.5-4.5) mg/dL Magnesium (1.7-2.2) mg/dL Total Bilirubin (0.2-1.3) mg/dL AST (17-59) U/L ALT (7-56) U/L Alkaline Phosphatase (38-126) U/L Total Protein (5.8-8.3) g/dL Albumin (3.0-4.8) g/dL Globulin gm/dL Albumin/Globulin Ratio (1.1-1.8) Procalcitonin 8.41 H (0.19-0.49) NG/ML Ur L.pneumophila Ag Negative (NEGATIVE) Laboratory Results - last 24 hr 12/23/17 12/23/17 12/23/17 06:00 10:33 15:30 WBC RBC Hgb Hct MCV MCH MCHC RDW Plt Count MPV Gran % Lymph % (Auto) [place] % (Auto) Eos % (Auto) Baso % (Auto) Gran # Lymph # (Auto) [place] # (Auto) Eos # (Auto) Baso # (Auto) Sodium Potassium Chloride Carbon Dioxide Anion Gap BUN Creatinine Est GFR ( Amer) Est GFR (Non-Af Amer) POC Glucose (mg/dL) 124 H Random Glucose Calcium Phosphorus Magnesium Total Bilirubin AST ALT Alkaline Phosphatase Total Protein Albumin Globulin Albumin/Globulin Ratio Procalcitonin 8.41 H Ur L.pneumophila Ag Negative 12/23/17 12/23/17 12/23/17 16:11 16:11 16:16 WBC 3.5 L RBC 3.48 L Hgb 10.6 L Hct 30.7 L MCV 88.2 MCH 30.5 MCHC 34.5 RDW 15.6 H Plt Count 75 L MPV 9.7 Gran % Lymph % (Auto) [place] % (Auto) Eos % (Auto) Baso % (Auto) Gran # Lymph # (Auto) [place] # (Auto) Eos # (Auto) Baso # (Auto) Sodium 139 Potassium 3.9 Chloride 107 Carbon Dioxide 24 Anion Gap 12 BUN 18 Creatinine 0.8 Est GFR ( Amer) > 60 Est GFR (Non-Af Amer) > 60 POC Glucose (mg/dL) 136 H Random Glucose 123 H Calcium 7.8 L Phosphorus Magnesium Total Bilirubin AST ALT Alkaline Phosphatase Total Protein Albumin Globulin Albumin/Globulin Ratio Procalcitonin Ur L.pneumophila Ag 12/23/17 12/24/17 12/24/17 21:52 05:30 05:30 WBC 4.0 L RBC 3.42 L Hgb 10.3 L Hct 29.9 L MCV 87.4 MCH 30.1 MCHC 34.4 RDW 15.4 H Plt Count 79 L MPV 10.2 Gran % 85.7 H Lymph % (Auto) 5.4 L [place] % (Auto) 6.4 H Eos % (Auto) 2.5 Baso % (Auto) 0.0 Gran # 3.46 Lymph # (Auto) 0.2 L [place] # (Auto) 0.3 Eos # (Auto) 0.1 Baso # (Auto) 0.00 Sodium 140 Potassium 3.6 Chloride 110 H Carbon Dioxide 26 Anion Gap 8 L BUN 15 Creatinine 0.8 Est GFR ( Amer) > 60 Est GFR (Non-Af Amer) > 60 POC Glucose (mg/dL) 103 Random Glucose 115 H Calcium 8.2 L Phosphorus 2.6 Magnesium 1.9 Total Bilirubin 1.3 AST 19 ALT 27 Alkaline Phosphatase 51 Total Protein 4.7 L Albumin 2.7 L Globulin 2.0 Albumin/Globulin Ratio 1.3 Procalcitonin Ur L.pneumophila Ag Assessment/Plan - Assessment and Plan (Free Text) Plan: Patient seen and examined on rounds with resident, agree with note with following additions/exceptions: Patient is 77yo male with PMHx of COPD, on home O2, CHF EF 25%, HTN, presented with PNA Currently afebrile, BP stable, comfortable on 2LNC, sat 92% On broad spectrum abx, ID and pulmonary following Started on Dobutamine drip as per cardiology today CHF, chronic systolic PNA SOB Hypoxia, resolved COPD Recommend: - supp o2 as needed, goal sat 90%, duonebs PRN, IS - Solumedrol 40mg q12hr - follow up cultures, UCx, BCx, Procal, sputum culture, Urine Legionella, Strep - Levaquin, Vanc, and Merem per ID - BP control - Dobutamine as per cardiology - GI ppx - DVT ppx - Monitor in MICU
--- NOTE | 2017-12-24 10:53 | PN ---
DATE: 12/22/2017(640am-730am) PULMONARY NOTE SUBJECTIVE: The patient appears mildly short of breath this morning. He is in no acute distress. He is awake and alert. PHYSICAL EXAMINATION: GENERAL: He is awake and alert. VITAL SIGNS: Temperature is 100.8, pulse on the monitor is 72, respirations 22, blood pressure 101/58. Oxygen saturation on high-flow delivery is 99%. HEENT: Normocephalic, atraumatic. No JVD. CARDIOVASCULAR: Positive S1, S2. No S3 gallop. LUNGS: Decreased breath sounds at the bases. Less rhonchi. No wheezing. EXTREMITIES: Mild edema. No cyanosis, no clubbing. Calves are nontender to palpation. GI: Abdomen is soft, nontender and nondistended. Bowel sounds are positive. SKIN: No acute rash. NEUROLOGIC: Limited at the present time. PERTINENT LABORATORY DATA: CAT scan of the chest was done as an angiogram protocol. There is no evidence of pulmonary embolism. There is dense consolidation at both bases-with air bronchograms-consistent with pneumonia. CBC: White count 4.0K, hemoglobin 10.3, hematocrit 29.9, platelets of 79,000. IMPRESSION: 1. Bilateral pneumonia-probable aspiration. 2. Acute bronchospasm. 3. Possible urinary tract infection. 4. [id number] myocardial infarction. 5. Advance dementia. PLAN: The patient appears mildly short of breath this morning. He is in no acute distress. He is awake and alert. I did discuss the case with the night nurse at length. The night nurse stated that the patient had a pretty good night. I did review the CAT scan of the chest-done as an angiogram protocol. There is no pulmonary embolism noted. There are, however, bilateral lower lobe infiltrates-consistent with pneumonia. The patient does have a significant history of aspiration pneumonia. I would continue with the antibiotic coverage as per Infectious Disease. Input by Dr. Goode is noted. Increased temperatures are noted this morning. On physical exam, there is certainly less bronchospasm noted. I will continue the current nebulizer treatments and aggressive pulmonary toilet. I did speak with the respiratory therapist again today. Input by Dr. Landry (Cardiology) is also noted. Clinical status of the patient is improved-compared to his initial presentation. However, again, the overall/future status for this patient remains poor. All are aware. I will discuss the above the entire ICU team in the next few moments. I will discuss the above with Dr. Nicholson later this morning. Medardo Whittaker MD [facility]
[2017-12-24] MEDS: Enoxaparin 40 mg Syringe SC SCH (13:51)
[2017-12-24] MEDS: DOBUTamine 500mg/250ml D5W 500 MG/250 ML BAG IV PRN (21:20)
--- NOTE | 2017-12-24 21:37 | CP.PCM.PN ---
Subjective - Date & Time of Evaluation Date of Evaluation: 12/24/17 Time of Evaluation: 07:35 - Subjective Subjective: No fevers, breathing ok, no cough currently, no nausea. Objective - Vital Signs/Intake and Output Vital Signs (last 24 hours): Temp Pulse Resp BP Pulse Ox 98.3 F 89 25 H 110/64 95 12/24/17 12:00 12/24/17 21:20 12/24/17 18:50 12/24/17 21:20 12/24/17 18:50 Intake and Output: 12/24/17 12/25/17 18:59 06:59 Intake Total 120 Output Total 550 Balance -430 - Medications Medications: Current Medications Acetaminophen (Tylenol 650 Mg Supp) 650 mg RC Q4H PRN PRN Reason: Fever >100.4 F Last Admin: 12/24/17 06:04 Dose: 650 mg Acetylcysteine (Acetylcysteine 20%) 4 ml [id number] Last Admin: 12/24/17 20:23 Dose: 4 ml Albuterol Sulfate (Albuterol 0.083% Inhal Ronda (2.5 Mg/3 Ml) Ud) 2.5 mg [facility]H [id number] Last Admin: 12/24/17 20:23 Dose: 2.5 mg Albuterol/Ipratropium (Duoneb 3 Mg/0.5 Mg (3 Ml) Ud) 3 ml IH Q2H PRN PRN Reason: Shortness of Breath Aspirin (Aspirin Supp) 300 mg RC DAILY [facility] Last Admin: 12/24/17 09:53 Dose: 300 mg Atorvastatin Calcium (Lipitor) 40 mg PO HS [facility] Last Admin: 12/24/17 21:13 Dose: 40 mg Budesonide (Pulmicort Respules) 0.5 mg [facility]H [id number] [facility] Last Admin: 12/24/17 20:23 Dose: 0.5 mg Enoxaparin Sodium (Lovenox) 40 mg SC [facility]ILY [facility]; Protocol Last Admin: 12/24/17 13:51 Dose: 40 mg Sodium Chloride (Sodium Chloride 0.9%) 1,000 mls @ 75 mls/hr IV .[id number] [facility] Last Admin: 12/24/17 21:13 Dose: 75 mls/hr Vancomycin HCl (Vancomycin 1gm) 1 gm in 250 mls @ 167 mls/hr IVPB DAILY [facility]; Protocol Last Admin: 12/24/17 09:52 Dose: 167 mls/hr Levofloxacin/Dextrose (Levaquin 750mg) 750 mg in 150 mls @ 100 mls/hr IVPB DAILY [facility]; Protocol Stop: 01/01/18 11:47 Last Admin: 12/24/17 09:52 Dose: 100 mls/hr Meropenem (Merrem Iv 1 Gm Premix) 1 gm in 50 mls @ 12.5 mls/hr IVPB Q8 [facility]; Protocol Stop: 01/01/18 14:01 Last Admin: 12/24/17 21:14 Dose: 12.5 mls/hr Dobutamine HCl/Dextrose (Dobutamine/Dextrose 5% 500mg/250ml) 500 mg in 250 mls @ 9.525 mls/hr IV .Q24H PRN; Protocol PRN Reason: TITRATE PER PROTOCOL Last Admin: 12/24/17 21:20 Dose: 5 mcg/kg/min, 9.525 mls/hr Pantoprazole Sodium (Protonix Inj) 40 mg IVP DAILY [facility] Last Admin: 12/24/17 09:52 Dose: 40 mg - Labs Labs: 12/24/17 05:30 12/24/17 05:30 PT 15.0 SECONDS (9.4-12.5) H 12/22/17 19:20 INR 1.31 12/22/17 19:20 APTT 30.2 Seconds (25.1-36.5) 12/22/17 19:20 - Head Exam Head Exam: NORMAL INSPECTION - ENT Exam ENT Exam: Mucous Membranes Moist - Neck Exam Neck Exam: absent: Meningismus - Respiratory Exam Respiratory Exam: Decreased Breath Sounds - Cardiovascular Exam Cardiovascular Exam: +S1, +S2 - GI/Abdominal Exam GI & Abdominal Exam: Soft. absent: Tenderness Assessment and Plan - Assessment and Plan (Free Text) Plan: Assessment severe sepsis due to multifocal lower lobe pneumonia with possible gram positive cocci and/or gram negative bacilli history of right sided HCAP history of C. 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 coli bacteremia and sepsis probably biliary tree in origin History of Klebsiella UTI Plan continue Vancomycin, Merrem and Levaquin day 2 pending final culture results will continue to monitor clinically overall prognosis is poor
[2017-12-25] MEDS: Acetylcysteine 20% Inhal Soln (4ml) IH SCH ×4 (02:59→19:35)
[2017-12-25] MEDS: Albuterol 0.083% Inhal Sol (2.5 mg/3 mL) UD IH SCH ×4 (02:59→19:36)
[2017-12-25] MEDS: Meropenem IV 1 gm in NS 1 GM/50 ML BAG IVPB SCH ×3 (05:24→22:04)
[2017-12-25] MEDS: Sodium Chloride 0.9% 1,000 ML IV SCH (05:25)
[2017-12-25 05:57] LABS: HEMOGLOBIN 10.4 g/dL (14.0-18.0); MEAN CELL VOLUME 87.7 fl (80.0-105.0); MEAN CORPUSCULAR HEMOGLOBIN 30.4 pg (25.0-35.0); MEAN CORPUSCULAR HGB CONC 34.7 g/dl (31.0-37.0); MEAN PLATELET VOLUME 9.8 fl (7.0-11.0); RBC 3.42 10^6/uL (3.5-6.1); RED CELL DISTRIBUTION WIDTH 15.1 % (11.5-14.5)
[2017-12-25 06:09] LABS: WHITE BLOOD COUNT 2.8 10^3/ul (4.5-11.0)
[2017-12-25 06:48] LABS: ALB/GLOB RATIO 1.2 (1.1-1.8); ALBUMIN 2.7 g/dL (3.0-4.8); ALT/SGPT 35 U/L (7-56); AST/SGOT 46 U/L (17-59); BLOOD UREA NITROGEN 11 mg/dL (7-21); CALCIUM 8.3 mg/dL (8.4-10.5); GFR NON-AFRICAN AMERICAN > 60
[2017-12-25] MEDS: Budesonide 0.5 mg/2 ml Inhal Susp UD IH SCH ×2 (07:43→19:36)
[2017-12-25] MEDS: DOBUTamine 500mg/250ml D5W 500 MG/250 ML BAG IV PRN (07:45)
--- NOTE | 2017-12-25 09:23 | CP.CCUPN ---
<Noble Metcalf - Last Filed: 12/25/17 09:42> CCU Subjective - Physician Review Subjective (Free Text): Noble Metcalf DO, PGY-1 ICU Progress Note for Dr. Pappas Patient was seen and examined at bedside this AM. He hasn't had any hemoptysis and cough is improving. CCU Objective - Vital Signs / Intake & Output Vital Signs (Last 4 hours): Vital Signs Temp Pulse BP 12/25/17 08:00 98.4 F 12/25/17 07:45 62 91/52 L 12/25/17 06:00 69 Intake and Output (Last 8hrs): Intake & Output 12/24/17 12/25/17 12/25/17 22:59 06:59 14:59 Intake Total 120 250 Output Total 550 800 Balance -430 -800 250 Intake: IV 250 Oral 120 Output: Urine 550 800 Urethral (Tong) 550 800 Other: # Bowel Movements 0 - Physical Exam Head: Positive for: Atraumatic, Normocephalic Pupils: Positive for: PERRL Extroacular Muscles: Positive for: EOMI Conjunctiva: Positive for: Normal Mouth: Positive for: Moist Mucous Membranes Pharnyx: Positive for: Normal. Negative for: ERYTHEMA, EXUDATE Nose (External): Positive for: Atraumatic Neck: Positive for: Normal Range of Motion Respiratory/Chest: Positive for: Rales (b/l rales auscultated R > L, improving). Negative for: Respiratory Distress, Accessory Muscle Use, Wheezes, Rhonchi Cardiovascular: Positive for: Regular Rate and Rhythm, Normal S1, S2. Negative for: Murmurs, Rub, Gallop Abdomen: Positive for: Distention (mild abdominal distention). Negative for: Guarding Upper Extremity: Positive for: Normal Inspection. Negative for: Cyanosis, Edema Lower Extremity: Positive for: Normal Inspection. Negative for: Edema Neurological: Positive for: Motor Func Grossly Intact Skin: Positive for: Warm, Dry. Negative for: Rashes Psychiatric: Positive for: Alert, Other (not oriented to person, place, time or situation, this is patient's baseline) - Medications Active Medications: Active Medications Generic Name Dose Route Start Last Admin Trade Name Freq PRN Reason Stop Dose Admin Acetaminophen 650 mg 12/25/17 08:52 Tylenol 325mg Tab PO Q6H PRN Fever >100.4 F Acetylcysteine 4 ml 12/23/17 08:00 12/25/17 07:43 Acetylcysteine 20% IH 4 ml [id number] YOLANDA Administration Albuterol Sulfate 2.5 mg 12/23/17 08:00 12/25/17 07:43 Albuterol 0.083% Inhal Ronda (2.5 Mg/3 Ml) Ud IH 2.5 mg [id number] YOLANDA Administration Albuterol/Ipratropium 3 ml 12/22/17 22:57 Duoneb 3 Mg/0.5 Mg (3 Ml) Ud IH Q2H PRN Shortness of Breath Aspirin 81 mg 12/25/17 10:00 Ecotrin PO DAILY YOLANDA Atorvastatin Calcium 40 mg 12/22/17 23:15 12/24/17 21:13 Lipitor PO 40 mg HS YOLANDA Administration Budesonide 0.5 mg 12/23/17 08:00 12/25/17 07:43 Pulmicort Respules IH 0.5 mg [id number] YOLANDA Administration Enoxaparin Sodium 40 mg 12/24/17 10:45 12/24/17 13:51 Lovenox SC 40 mg DAILY YOLANDA Administration Protocol Guaifenesin/Dextromethorphan 5 ml 12/25/17 12:00 Robitussin Dm PO Q6 YOLANDA Sodium Chloride 1,000 mls @ 75 mls/hr 12/22/17 23:00 12/25/17 05:25 Sodium Chloride 0.9% IV 75 mls/hr .[id number] YOLANDA Administration Vancomycin HCl 1 gm in 250 mls @ 167 mls/hr 12/23/17 10:00 12/24/17 09:52 Vancomycin 1gm IVPB 167 mls/hr DAILY YOLANDA Administration Protocol Levofloxacin/Dextrose 750 mg in 150 mls @ 100 mls/hr 12/23/17 11:46 12/24/17 09:52 Levaquin 750mg IVPB 01/01/18 11:47 100 mls/hr DAILY YOLANDA Administration Protocol Meropenem 1 gm in 50 mls @ 12.5 mls/hr 12/23/17 14:00 12/25/17 05:24 Merrem Iv 1 Gm Premix IVPB 01/01/18 14:01 12.5 mls/hr Q8 YOLANDA Administration Protocol Dobutamine HCl/Dextrose 500 mg in 250 mls @ 9.525 mls/hr 12/24/17 08:58 12/25/17 07:45 Dobutamine/Dextrose 5% 500mg/250ml IV 5 mcg/kg/min .Q24H PRN 9.525 mls/hr TITRATE PER PROTOCOL Administration Protocol 5 MCG/KG/MIN Potassium Chloride 10 meq in 100 mls @ 10 mls/hr 12/25/17 07:15 12/25/17 07:48 Potassium Chloride 10 Meq/100 Ml IVPB 12/25/17 11:14 10 mls/hr Q2H YOLANDA Administration Pantoprazole Sodium 40 mg 12/23/17 10:00 12/24/17 09:52 Protonix Inj IVP 40 mg DAILY YOLANDA Administration Potassium Chloride 40 meq 12/25/17 12:00 Potassium Chloride Oral Soln PO 12/25/17 20:01 Q4 YOLANDA - Patient Studies Lab Studies: Microbiology Studies 12/22/17 13:45 Blood Culture - Preliminary Blood NO GROWTH AFTER 48 HOURS 12/22/17 19:20 Blood Culture - Preliminary Blood NO GROWTH AFTER 48 HOURS 12/22/17 19:41 Urine Culture - Final Urine Yeast Species 12/23/17 00:35 Gram Stain - Final Sputum Sputum Culture - Preliminary NORMAL ORAL KATIANA 12/23/17 00:35 MRSA Culture (Admit) - Final Nose MRSA NOT DETECTED Lab Studies 12/25/17 12/25/17 12/25/17 Range/Units 08:02 05:00 05:00 WBC 2.8 L* D (4.5-11.0) 10^3/ul RBC 3.42 L (3.5-6.1) 10^6/uL Hgb 10.4 L (14.0-18.0) g/dL Hct 30.0 L (42.0-52.0) % MCV 87.7 (80.0-105.0) fl MCH 30.4 (25.0-35.0) pg MCHC 34.7 (31.0-37.0) g/dl RDW 15.1 H (11.5-14.5) % Plt Count 83 L (120.0-450.0) 10^3/uL MPV 9.8 (7.0-11.0) fl Sodium 142 (132-148) mmol/L Potassium 2.9 L* (3.6-5.0) mmol/L Chloride 108 H (98-107) mmol/L Carbon Dioxide 27 (21-33) mmol/L Anion Gap 10 (10-20) BUN 11 (7-21) mg/dL Creatinine 0.6 L (0.8-1.5) mg/dl Est GFR ( Amer) > 60 Est GFR (Non-Af Amer) > 60 POC Glucose (mg/dL) 126 H (65-110) mg/dL Random Glucose 108 (70-110) mg/dL Calcium 8.3 L (8.4-10.5) mg/dL Total Bilirubin 1.4 H (0.2-1.3) mg/dL AST 46 (17-59) U/L ALT 35 (7-56) U/L Alkaline Phosphatase 55 (38-126) U/L Total Protein 4.9 L (5.8-8.3) g/dL Albumin 2.7 L (3.0-4.8) g/dL Globulin 2.2 gm/dL Albumin/Globulin Ratio 1.2 (1.1-1.8) Influenza Typ A,B (EIA) (NEGATIVE) 12/25/17 12/24/17 12/24/17 Range/Units 01:30 21:57 12:58 WBC (4.5-11.0) 10^3/ul RBC (3.5-6.1) 10^6/uL Hgb (14.0-18.0) g/dL Hct (42.0-52.0) % MCV (80.0-105.0) fl MCH (25.0-35.0) pg MCHC (31.0-37.0) g/dl RDW (11.5-14.5) % Plt Count (120.0-450.0) 10^3/uL MPV (7.0-11.0) fl Sodium (132-148) mmol/L Potassium (3.6-5.0) mmol/L Chloride (98-107) mmol/L Carbon Dioxide (21-33) mmol/L Anion Gap (10-20) BUN (7-21) mg/dL Creatinine (0.8-1.5) mg/dl Est GFR ( Amer) Est GFR (Non-Af Amer) POC Glucose (mg/dL) 132 H 105 (65-110) mg/dL Random Glucose (70-110) mg/dL Calcium (8.4-10.5) mg/dL Total Bilirubin (0.2-1.3) mg/dL AST (17-59) U/L ALT (7-56) U/L Alkaline Phosphatase (38-126) U/L Total Protein (5.8-8.3) g/dL Albumin (3.0-4.8) g/dL Globulin gm/dL Albumin/Globulin Ratio (1.1-1.8) Influenza Typ A,B (EIA) Negative for flu a/b (NEGATIVE) 12/24/17 Range/Units 08:15 WBC (4.5-11.0) 10^3/ul RBC (3.5-6.1) 10^6/uL Hgb (14.0-18.0) g/dL Hct (42.0-52.0) % MCV (80.0-105.0) fl MCH (25.0-35.0) pg MCHC (31.0-37.0) g/dl RDW (11.5-14.5) % Plt Count (120.0-450.0) 10^3/uL MPV (7.0-11.0) fl Sodium (132-148) mmol/L Potassium (3.6-5.0) mmol/L Chloride (98-107) mmol/L Carbon Dioxide (21-33) mmol/L Anion Gap (10-20) BUN (7-21) mg/dL Creatinine (0.8-1.5) mg/dl Est GFR ( Amer) Est GFR (Non-Af Amer) POC Glucose (mg/dL) 118 H (65-110) mg/dL Random Glucose (70-110) mg/dL Calcium (8.4-10.5) mg/dL Total Bilirubin (0.2-1.3) mg/dL AST (17-59) U/L ALT (7-56) U/L Alkaline Phosphatase (38-126) U/L Total Protein (5.8-8.3) g/dL Albumin (3.0-4.8) g/dL Globulin gm/dL Albumin/Globulin Ratio (1.1-1.8) Influenza Typ A,B (EIA) (NEGATIVE) Laboratory Results - last 24 hr 12/24/17 12/24/17 12/24/17 08:15 12:58 21:57 WBC RBC Hgb Hct MCV MCH MCHC RDW Plt Count MPV Sodium Potassium Chloride Carbon Dioxide Anion Gap BUN Creatinine Est GFR ( Amer) Est GFR (Non-Af Amer) POC Glucose (mg/dL) 118 H 105 132 H Random Glucose Calcium Total Bilirubin AST ALT Alkaline Phosphatase Total Protein Albumin Globulin Albumin/Globulin Ratio Influenza Typ A,B (EIA) 12/25/17 12/25/17 12/25/17 01:30 05:00 05:00 WBC 2.8 L* D RBC 3.42 L Hgb 10.4 L Hct 30.0 L MCV 87.7 MCH 30.4 MCHC 34.7 RDW 15.1 H Plt Count 83 L MPV 9.8 Sodium 142 Potassium 2.9 L* Chloride 108 H Carbon Dioxide 27 Anion Gap 10 BUN 11 Creatinine 0.6 L Est GFR ( Amer) > 60 Est GFR (Non-Af Amer) > 60 POC Glucose (mg/dL) Random Glucose 108 Calcium 8.3 L Total Bilirubin 1.4 H AST 46 ALT 35 Alkaline Phosphatase 55 Total Protein 4.9 L Albumin 2.7 L Globulin 2.2 Albumin/Globulin Ratio 1.2 Influenza Typ A,B (EIA) Negative for flu a/b 12/25/17 08:02 WBC RBC Hgb Hct MCV MCH MCHC RDW Plt Count MPV Sodium Potassium Chloride Carbon Dioxide Anion Gap BUN Creatinine Est GFR ( Amer) Est GFR (Non-Af Amer) POC Glucose (mg/dL) 126 H Random Glucose Calcium Total Bilirubin AST ALT Alkaline Phosphatase Total Protein Albumin Globulin Albumin/Globulin Ratio Influenza Typ A,B (EIA) Fingerstick Blood Sugar Results: 126 Review of Systems - Review of Systems Systems not reviewed;Unavailable: Dementia Critical Care Progress Note - Nutrition Nutrition: Nutrition Category Date Time Status Heart Healthy Diet [DIET] Diets 12/24/17 Dinner Active Assessment/Plan - Assessment and Plan (Free Text) Assessment: 77 yo M admitted to ICU for sepsis with hypotension/tachycardia 2/2 bilateral HCAP. Plan: Neuro: Alert but not oriented to person, time, place, or situation Hx of Alzheimer's dementia at baseline Cardio: RRR, normotensive overnight MAP currently 76, maintain MAP > 65 On dobutamine per cardiology Continue to monitor Has hx of CHF with last EF of 25% Cardiology following, recs appreciated Pulm: Now SpO2 is >95 on 2 L NC Continue to maintain SpO2 > 93% Continue duo neb treatments Q6h scheduled GI: Swallow eval completed, cleared for soft diet Patient tolerating diet well without nausea/vomiting /Nephro: UA positive for pyuria, significant yeast, and leuk esterase Tong in place BUN/Cr stable, continue to monitor Maintain euvolemia Replete electrolytes as needed Endocrine: Maintain euglycemia ID: Received empiric vanc, flagyl, and cipro in ED On levaquin, vanc, and merem per ID ID following, recs appreciated Heme/onc: Hemoptysis resolved H/H stable Continue to monitor H/H and for signs of HD compromise DVT PPX: lovenox, SCDs GI PPX: Protonix Full Code Case and plan reviewed and discussed with my attending Dr. Elyse Metcalf, IM Resident PGY-1 <Emerson Pappas - Last Filed: 12/25/17 09:51> CCU Objective - Vital Signs / Intake & Output Vital Signs (Last 4 hours): Vital Signs Temp Pulse BP 12/25/17 08:00 98.4 F 12/25/17 07:45 62 91/52 L 12/25/17 06:00 69 Intake and Output (Last 8hrs): Intake & Output 12/24/17 12/25/17 12/25/17 22:59 06:59 14:59 Intake Total 120 250 Output Total 550 800 Balance -430 -800 250 Intake: IV 250 Oral 120 Output: Urine 550 800 Urethral (Tong) 550 800 Other: # Bowel Movements 0 - Medications Active Medications: Active Medications Generic Name Dose Route Start Last Admin Trade Name Freq PRN Reason Stop Dose Admin Acetaminophen 650 mg 12/25/17 08:52 Tylenol 325mg Tab PO Q6H PRN Fever >100.4 F Acetylcysteine 4 ml 12/23/17 08:00 12/25/17 07:43 Acetylcysteine 20% IH 4 ml [id number] YOLANDA Administration Albuterol Sulfate 2.5 mg 12/23/17 08:00 12/25/17 07:43 Albuterol 0.083% Inhal Ronda (2.5 Mg/3 Ml) Ud IH 2.5 mg [id number] YOLANDA Administration Albuterol/Ipratropium 3 ml 12/22/17 22:57 Duoneb 3 Mg/0.5 Mg (3 Ml) Ud IH Q2H PRN Shortness of Breath Aspirin 81 mg 12/25/17 10:00 12/25/17 09:48 Ecotrin PO 81 mg DAILY YOLANDA Administration Atorvastatin Calcium 40 mg 12/22/17 23:15 12/24/17 21:13 Lipitor PO 40 mg HS YOLANDA Administration Budesonide 0.5 mg 12/23/17 08:00 12/25/17 07:43 Pulmicort Respules IH 0.5 mg [id number] YOLANDA Administration Enoxaparin Sodium 40 mg 12/24/17 10:45 12/25/17 09:46 Lovenox SC 40 mg DAILY YOLANDA Administration Protocol Guaifenesin/Dextromethorphan 5 ml 12/25/17 12:00 Robitussin Dm PO Q6 YOLANDA Sodium Chloride 1,000 mls @ 75 mls/hr 12/22/17 23:00 12/25/17 05:25 Sodium Chloride 0.9% IV 75 mls/hr .[id number] YOLANDA Administration Vancomycin HCl 1 gm in 250 mls @ 167 mls/hr 12/23/17 10:00 12/25/17 09:47 Vancomycin 1gm IVPB 167 mls/hr DAILY YOLANDA Administration Protocol Levofloxacin/Dextrose 750 mg in 150 mls @ 100 mls/hr 12/23/17 11:46 12/24/17 09:52 Levaquin 750mg IVPB 01/01/18 11:47 100 mls/hr DAILY YOLANDA Administration Protocol Meropenem 1 gm in 50 mls @ 12.5 mls/hr 12/23/17 14:00 12/25/17 05:24 Merrem Iv 1 Gm Premix IVPB 01/01/18 14:01 12.5 mls/hr Q8 YOLANDA Administration Protocol Dobutamine HCl/Dextrose 500 mg in 250 mls @ 9.525 mls/hr 12/24/17 08:58 12/25/17 07:45 Dobutamine/Dextrose 5% 500mg/250ml IV 5 mcg/kg/min .Q24H PRN 9.525 mls/hr TITRATE PER PROTOCOL Administration Protocol 5 MCG/KG/MIN Potassium Chloride 10 meq in 100 mls @ 10 mls/hr 12/25/17 07:15 12/25/17 09:47 Potassium Chloride 10 Meq/100 Ml IVPB 12/25/17 11:14 10 mls/hr Q2H YOLANDA Administration Pantoprazole Sodium 40 mg 12/23/17 10:00 12/24/17 09:52 Protonix Inj IVP 40 mg DAILY YOLANDA Administration Potassium Chloride 40 meq 12/25/17 12:00 Potassium Chloride Oral Soln PO 12/25/17 20:01 Q4 YOLANDA - Patient Studies Lab Studies: Microbiology Studies 12/22/17 13:45 Blood Culture - Preliminary Blood NO GROWTH AFTER 48 HOURS 12/22/17 19:20 Blood Culture - Preliminary Blood NO GROWTH AFTER 48 HOURS 12/22/17 19:41 Urine Culture - Final Urine Yeast Species 12/23/17 00:35 Gram Stain - Final Sputum Sputum Culture - Preliminary NORMAL ORAL KATIANA 12/23/17 00:35 MRSA Culture (Admit) - Final Nose MRSA NOT DETECTED Lab Studies 12/25/17 12/25/17 12/25/17 Range/Units 08:02 05:00 05:00 WBC 2.8 L* D (4.5-11.0) 10^3/ul RBC 3.42 L (3.5-6.1) 10^6/uL Hgb 10.4 L (14.0-18.0) g/dL Hct 30.0 L (42.0-52.0) % MCV 87.7 (80.0-105.0) fl MCH 30.4 (25.0-35.0) pg MCHC 34.7 (31.0-37.0) g/dl RDW 15.1 H (11.5-14.5) % Plt Count 83 L (120.0-450.0) 10^3/uL MPV 9.8 (7.0-11.0) fl Sodium 142 (132-148) mmol/L Potassium 2.9 L* (3.6-5.0) mmol/L Chloride 108 H (98-107) mmol/L Carbon Dioxide 27 (21-33) mmol/L Anion Gap 10 (10-20) BUN 11 (7-21) mg/dL Creatinine 0.6 L (0.8-1.5) mg/dl Est GFR ( Amer) > 60 Est GFR (Non-Af Amer) > 60 POC Glucose (mg/dL) 126 H (65-110) mg/dL Random Glucose 108 (70-110) mg/dL Calcium 8.3 L (8.4-10.5) mg/dL Phosphorus 2.4 L (2.5-4.5) mg/dL Magnesium 1.9 (1.7-2.2) mg/dL Total Bilirubin 1.4 H (0.2-1.3) mg/dL AST 46 (17-59) U/L ALT 35 (7-56) U/L Alkaline Phosphatase 55 (38-126) U/L Total Protein 4.9 L (5.8-8.3) g/dL Albumin 2.7 L (3.0-4.8) g/dL Globulin 2.2 gm/dL Albumin/Globulin Ratio 1.2 (1.1-1.8) Influenza Typ A,B (EIA) (NEGATIVE) 12/25/17 12/24/17 12/24/17 Range/Units 01:30 21:57 12:58 WBC (4.5-11.0) 10^3/ul RBC (3.5-6.1) 10^6/uL Hgb (14.0-18.0) g/dL Hct (42.0-52.0) % MCV (80.0-105.0) fl MCH (25.0-35.0) pg MCHC (31.0-37.0) g/dl RDW (11.5-14.5) % Plt Count (120.0-450.0) 10^3/uL MPV (7.0-11.0) fl Sodium (132-148) mmol/L Potassium (3.6-5.0) mmol/L Chloride (98-107) mmol/L Carbon Dioxide (21-33) mmol/L Anion Gap (10-20) BUN (7-21) mg/dL Creatinine (0.8-1.5) mg/dl Est GFR ( Amer) Est GFR (Non-Af Amer) POC Glucose (mg/dL) 132 H 105 (65-110) mg/dL Random Glucose (70-110) mg/dL Calcium (8.4-10.5) mg/dL Phosphorus (2.5-4.5) mg/dL Magnesium (1.7-2.2) mg/dL Total Bilirubin (0.2-1.3) mg/dL AST (17-59) U/L ALT (7-56) U/L Alkaline Phosphatase (38-126) U/L Total Protein (5.8-8.3) g/dL Albumin (3.0-4.8) g/dL Globulin gm/dL Albumin/Globulin Ratio (1.1-1.8) Influenza Typ A,B (EIA) Negative for flu a/b (NEGATIVE) 12/24/17 Range/Units 08:15 WBC (4.5-11.0) 10^3/ul RBC (3.5-6.1) 10^6/uL Hgb (14.0-18.0) g/dL Hct (42.0-52.0) % MCV (80.0-105.0) fl MCH (25.0-35.0) pg MCHC (31.0-37.0) g/dl RDW (11.5-14.5) % Plt Count (120.0-450.0) 10^3/uL MPV (7.0-11.0) fl Sodium (132-148) mmol/L Potassium (3.6-5.0) mmol/L Chloride (98-107) mmol/L Carbon Dioxide (21-33) mmol/L Anion Gap (10-20) BUN (7-21) mg/dL Creatinine (0.8-1.5) mg/dl Est GFR ( Amer) Est GFR (Non-Af Amer) POC Glucose (mg/dL) 118 H (65-110) mg/dL Random Glucose (70-110) mg/dL Calcium (8.4-10.5) mg/dL Phosphorus (2.5-4.5) mg/dL Magnesium (1.7-2.2) mg/dL Total Bilirubin (0.2-1.3) mg/dL AST (17-59) U/L ALT (7-56) U/L Alkaline Phosphatase (38-126) U/L Total Protein (5.8-8.3) g/dL Albumin (3.0-4.8) g/dL Globulin gm/dL Albumin/Globulin Ratio (1.1-1.8) Influenza Typ A,B (EIA) (NEGATIVE) Laboratory Results - last 24 hr 12/24/17 12/24/17 12/24/17 08:15 12:58 21:57 WBC RBC Hgb Hct MCV MCH MCHC RDW Plt Count MPV Sodium Potassium Chloride Carbon Dioxide Anion Gap BUN Creatinine Est GFR ( Amer) Est GFR (Non-Af Amer) POC Glucose (mg/dL) 118 H 105 132 H Random Glucose Calcium Phosphorus Magnesium Total Bilirubin AST ALT Alkaline Phosphatase Total Protein Albumin Globulin Albumin/Globulin Ratio Influenza Typ A,B (EIA) 12/25/17 12/25/17 12/25/17 01:30 05:00 05:00 WBC 2.8 L* D RBC 3.42 L Hgb 10.4 L Hct 30.0 L MCV 87.7 MCH 30.4 MCHC 34.7 RDW 15.1 H Plt Count 83 L MPV 9.8 Sodium 142 Potassium 2.9 L* Chloride 108 H Carbon Dioxide 27 Anion Gap 10 BUN 11 Creatinine 0.6 L Est GFR ( Amer) > 60 Est GFR (Non-Af Amer) > 60 POC Glucose (mg/dL) Random Glucose 108 Calcium 8.3 L Phosphorus 2.4 L Magnesium 1.9 Total Bilirubin 1.4 H AST 46 ALT 35 Alkaline Phosphatase 55 Total Protein 4.9 L Albumin 2.7 L Globulin 2.2 Albumin/Globulin Ratio 1.2 Influenza Typ A,B (EIA) Negative for flu a/b 12/25/17 08:02 WBC RBC Hgb Hct MCV MCH MCHC RDW Plt Count MPV Sodium Potassium Chloride Carbon Dioxide Anion Gap BUN Creatinine Est GFR ( Amer) Est GFR (Non-Af Amer) POC Glucose (mg/dL) 126 H Random Glucose Calcium Phosphorus Magnesium Total Bilirubin AST ALT Alkaline Phosphatase Total Protein Albumin Globulin Albumin/Globulin Ratio Influenza Typ A,B (EIA) Critical Care Progress Note - Nutrition Nutrition: Nutrition Category Date Time Status Heart Healthy Diet [DIET] Diets 12/24/17 Dinner Active Assessment/Plan - Assessment and Plan (Free Text) Plan: Patient seen and examined on rounds with resident, agree with note with following additions/exceptions: Patient is 77yo male with PMHx of COPD, on home O2, CHF EF 25%, HTN, presented with PNA Currently afebrile, BP stable, comfortable on 2LNC, sat 98% On broad spectrum abx, ID and pulmonary following CHF, chronic systolic PNA SOB Hypoxia, resolved COPD Recommend: - supp o2 as needed, goal sat 90%, duonebs PRN, IS - Solumedrol 20mg q12hr - follow up cultures, UCx, BCx, Procal, sputum culture, Urine Legionella, Strep - Levaquin, Vancomycin, and Merem per ID - BP control - Dobutamine as per cardiology - GI ppx - DVT ppx - Monitor in MICU
[2017-12-25] MEDS: Enoxaparin 40 mg Syringe SC SCH (09:46)
[2017-12-25] MEDS: Vancomycin 1gm in NS 250ml 1 GM/250 ML BAG IVPB SCH (09:47)
[2017-12-25] MEDS: levoFLOXacin 750 mg in D5W 750 MG/150 ML BAG IVPB SCH (09:50)
--- NOTE | 2017-12-25 09:52 | CP.PCM.PN ---
<Elvia Ronquillo - Last Filed: 12/25/17 14:50> Subjective - Date & Time of Evaluation Date of Evaluation: 12/25/17 Time of Evaluation: 08:30 - Subjective Subjective: PGY-1 Elvia Ronquillo D.O. Medicine progress note for Dr. Yao's service: Patient was seen and examined this morning. Patient is sitting up in bed in no acute distress. He is breathing comfortably on NC. He is oriented only to person, which is his baseline. He denies pain or SOB. Objective - Vital Signs/Intake and Output Vital Signs (last 24 hours): Temp Pulse Resp BP Pulse Ox 98.4 F 62 31 H 91/52 L 97 12/25/17 08:00 12/25/17 07:45 12/25/17 05:10 12/25/17 07:45 12/25/17 05:10 Intake and Output: 12/25/17 12/25/17 06:59 18:59 Intake Total 250 Output Total 800 Balance -800 250 - Medications Medications: Current Medications Acetaminophen (Tylenol 325mg Tab) 650 mg PO Q6H PRN PRN Reason: Fever >100.4 F Acetylcysteine (Acetylcysteine 20%) 4 ml IH [id number] [facility] Last Admin: 12/25/17 07:43 Dose: 4 ml Albuterol Sulfate (Albuterol 0.083% Inhal Ronda (2.5 Mg/3 Ml) Ud) 2.5 mg IH [id number] [facility] Last Admin: 12/25/17 07:43 Dose: 2.5 mg Albuterol/Ipratropium (Duoneb 3 Mg/0.5 Mg (3 Ml) Ud) 3 ml IH Q2H PRN PRN Reason: Shortness of Breath Aspirin (Ecotrin) 81 mg PO DAILY [facility] Last Admin: 12/25/17 09:48 Dose: 81 mg Atorvastatin Calcium (Lipitor) 40 mg PO HS [facility] Last Admin: 12/24/17 21:13 Dose: 40 mg Budesonide (Pulmicort Respules) 0.5 mg IH [id number] [facility] Last Admin: 12/25/17 07:43 Dose: 0.5 mg Enoxaparin Sodium (Lovenox) 40 mg SC DAILY [facility]; Protocol Last Admin: 12/25/17 09:46 Dose: 40 mg Guaifenesin/Dextromethorphan (Robitussin Dm) 5 ml PO Q6 [facility] Sodium Chloride (Sodium Chloride 0.9%) 1,000 mls @ 75 mls/hr IV .[id number] [facility] Last Admin: 12/25/17 05:25 Dose: 75 mls/hr Vancomycin HCl (Vancomycin 1gm) 1 gm in 250 mls @ 167 mls/hr IVPB DAILY [facility]; Protocol Last Admin: 12/25/17 09:47 Dose: 167 mls/hr Levofloxacin/Dextrose (Levaquin 750mg) 750 mg in 150 mls @ 100 mls/hr IVPB DAILY [facility]; Protocol Stop: 01/01/18 11:47 Last Admin: 12/25/17 09:50 Dose: 100 mls/hr Meropenem (Merrem Iv 1 Gm Premix) 1 gm in 50 mls @ 12.5 mls/hr IVPB Q8 [facility]; Protocol Stop: 01/01/18 14:01 Last Admin: 12/25/17 05:24 Dose: 12.5 mls/hr Dobutamine HCl/Dextrose (Dobutamine/Dextrose 5% 500mg/250ml) 500 mg in 250 mls @ 9.525 mls/hr IV .Q24H PRN; Protocol PRN Reason: TITRATE PER PROTOCOL Last Admin: 12/25/17 07:45 Dose: 5 mcg/kg/min, 9.525 mls/hr Potassium Chloride (Potassium Chloride 10 Meq/100 Ml) 10 meq in 100 mls @ 10 mls/hr IVPB Q2H [facility] Stop: 12/25/17 11:14 Last Admin: 12/25/17 09:47 Dose: 10 mls/hr Pantoprazole Sodium (Protonix Inj) 40 mg IVP DAILY [facility] Last Admin: 12/24/17 09:52 Dose: 40 mg Potassium Chloride (Potassium Chloride Oral Soln) 40 meq PO Q4 [facility] Stop: 12/25/17 20:01 - Labs Labs: 12/25/17 05:00 12/25/17 05:00 PT 15.0 SECONDS (9.4-12.5) H 12/22/17 19:20 INR 1.31 12/22/17 19:20 APTT 30.2 Seconds (25.1-36.5) 12/22/17 19:20 - Constitutional Appears: Non-toxic, No Acute Distress - Head Exam Head Exam: ATRAUMATIC, NORMAL INSPECTION - Eye Exam Eye Exam: EOMI, Normal appearance, PERRL - ENT Exam ENT Exam: Mucous Membranes Moist, Normal Exam - Neck Exam Neck Exam: Normal Inspection - Respiratory Exam Respiratory Exam: Decreased Breath Sounds, Rales, NORMAL BREATHING PATTERN. absent: Respiratory Distress - Cardiovascular Exam Cardiovascular Exam: REGULAR RHYTHM, +S1, +S2 - GI/Abdominal Exam GI & Abdominal Exam: Soft, Normal Bowel Sounds. absent: Tenderness - Rectal Exam Rectal Exam: Deferred - Extremities Exam Extremities Exam: Normal Inspection. absent: Pedal Edema - Neurological Exam Neurological Exam: Alert, Awake, CN II-XII Intact. absent: Oriented x3 - Psychiatric Exam Psychiatric exam: Normal Affect, Normal Mood - Skin Skin Exam: Dry, Intact, Normal Color, Warm Assessment and Plan - Assessment and Plan (Free Text) Assessment: Patient is a 77 yo male with Alzheimer's who was brought in from [facility] in [place] for cough and congestion. He is being treated for b/l PNA. Plan: Sepsis 2/2 PNA - CXR: R sided infiltrate, mod vasc congestion - CT chest: dense consolidation in both lower lobes consistent with PNA, no PE - LA 5.3, 4 - Procal 8.41 - Blood Cx no growth >48rs - Sputum Cx yeast - Influenza negative - Legionalla negative - O2 via NC- titrate 88-92% - Most recent fever 10/5 100.8 - Tylenol 650 mg PO Q6H PRN - Duoneb Q6H [facility], Q2H PRN - Pulmicort Q12H - Robitussin 5 mL PO Q6H - Acetylcysteine Q4H - Levaquin 750 mg IV daily (started 12/23) - Meropenem 1 g IV Q8H (started 12/23) - Vancomycin 1 g IV daily (started 12/23) - ICU consulted (Panfilo) - ID consulted (Rupa) NSTEMI - Cath last year- triple vessel disease - EKG: NSR at [address]/T wave changes - Trop 0.13, 0.09, 0.10 - ASA 81 mg PO daily - Dobutamine drip - Cardiology consulted (Frantz)- no cath at this time Pancytopenia - Hgb 14->10.4 - WBC 2.8 - Plt 83 - CBC daily - FOBT pending CHF - Echo 03/2017: EF 26% - Cardiology consulted (Frantz) HLD - Lipitor 40 mg PO QHS Hypokalemia - Repleted - Monitor BMP IVF: NS @ 75 Diet: heart healthy GI ppx: Protonix 40 mg IV daily VTE ppx: Lovenox 40 mg SC daily Code status: full code Case discussed with attending, Dr. Yao. <Sandra Yao - Last Filed: 12/26/17 11:47> Objective - Vital Signs/Intake and Output Vital Signs (last 24 hours): Temp Pulse Resp BP Pulse Ox 98.6 F 60 33 H 103/50 L 100 12/26/17 04:00 12/26/17 10:27 12/26/17 07:15 12/26/17 10:27 12/26/17 07:15 Intake and Output: 12/26/17 12/26/17 06:59 18:59 Intake Total 1234 250 Output Total 1100 Balance 134 250 - Medications Medications: Current Medications Acetaminophen (Tylenol 325mg Tab) 650 mg PO Q6H PRN PRN Reason: Fever >100.4 F Acetylcysteine (Acetylcysteine 20%) 4 ml IH [id number] [facility] Last Admin: 12/26/17 02:15 Dose: 4 ml Albuterol Sulfate (Albuterol 0.083% Inhal Ronda (2.5 Mg/3 Ml) Ud) 2.5 mg IH [id number] [facility] Last Admin: 12/26/17 02:14 Dose: 2.5 mg Albuterol/Ipratropium (Duoneb 3 Mg/0.5 Mg (3 Ml) Ud) 3 ml IH Q2H PRN PRN Reason: Shortness of Breath Aspirin (Ecotrin) 81 mg PO DAILY [facility] Last Admin: 12/26/17 09:50 Dose: 81 mg Atorvastatin Calcium (Lipitor) 40 mg PO HS [facility] Last Admin: 12/25/17 22:05 Dose: 40 mg Budesonide (Pulmicort Respules) 0.5 mg IH [id number] [facility] Last Admin: 12/25/17 19:36 Dose: 0.5 mg Enoxaparin Sodium (Lovenox) 40 mg SC DAILY [facility]; Protocol Last Admin: 12/26/17 09:51 Dose: 40 mg Guaifenesin/Dextromethorphan (Robitussin Dm) 5 ml PO Q6 [facility] Last Admin: 12/26/17 05:43 Dose: 5 ml Sodium Chloride (Sodium Chloride 0.9%) 1,000 mls @ 75 mls/hr IV .[id number] [facility] Last Admin: 12/26/17 10:00 Dose: 75 mls/hr Levofloxacin/Dextrose (Levaquin 750mg) 750 mg in 150 mls @ 100 mls/hr IVPB DAILY [facility]; Protocol Stop: 01/01/18 11:47 Last Admin: 12/26/17 09:50 Dose: 100 mls/hr Meropenem (Merrem Iv 1 Gm Premix) 1 gm in 50 mls @ 12.5 mls/hr IVPB Q8 [facility]; Protocol Stop: 01/01/18 14:01 Last Admin: 12/26/17 05:42 Dose: 12.5 mls/hr Dobutamine HCl/Dextrose (Dobutamine/Dextrose 5% 500mg/250ml) 500 mg in 250 mls @ 9.525 mls/hr IV .Q24H PRN; Protocol PRN Reason: TITRATE PER PROTOCOL Last Admin: 12/26/17 10:27 Dose: 5 mcg/kg/min, 9.525 mls/hr Potassium Phosphate 15 mmole/ (Sodium Chloride) 255 mls @ 42.5 mls/hr IVPB ONCE ONE Stop: 12/26/17 16:43 Pantoprazole Sodium (Protonix Inj) 40 mg IVP DAILY [facility] Last Admin: 12/26/17 09:50 Dose: 40 mg - Labs Labs: 12/26/17 05:00 12/26/17 05:00 PT 15.0 SECONDS (9.4-12.5) H 12/22/17 19:20 INR 1.31 12/22/17 19:20 APTT 30.2 Seconds (25.1-36.5) 12/22/17 19:20 Attending/Attestation - Attestation I have personally seen and examined this patient.: Yes I have fully participated in the care of the patient.: Yes I have reviewed all pertinent clinical information, including history, physical exam and plan: Yes Notes (Text): 12/26/17 11:41 Attending note/ covering DR. Nicholson. Patient seen and examined with resident in ICU. Patient is alert and awake. On restraints. Patient has baseline dementia. Oriented to person only. Tolerating diet with assistance. Patient is a 77 -year-old male with PMHx of R lower lobe pneumonia, alzheimers dementia, CHF, CAD, HLD, MDS, prostate cancer admitted for healthcare associated pneumonia . Currently on IV levofloxacin, vancomycin and meropenem. Patient is more alert and awake today. Afebrile and nontoxic. Lactic acidosis is resolving. ID evaluation appreciated. Continue DuoNeb treatment and oxygen when necessary. Non-ST elevation IL; cardiology evaluation appreciated. Continue aspirin and dobutamine. Pancytopenia; chronic and stable. Alzheimer's dementia; continue restraints for patient's safety. Nursing staff informed to DC and monitor. GI and DVT prophylaxis. Case discussed with community health education coordinator in detail.
--- NOTE | 2017-12-25 11:24 | RAD ---
Date of service: 12/25/2017 HISTORY: f/u COMPARISON: 12/24/2017 FINDINGS: LUNGS: Moderate vascular congestion. No change in right-sided infiltrate PLEURA: No significant pleural effusion identified, no pneumothorax apparent. CARDIOVASCULAR: Normal. OSSEOUS STRUCTURES: No significant abnormalities. VISUALIZED UPPER ABDOMEN: Normal. OTHER FINDINGS: None. IMPRESSION: Moderate vascular congestion. No change in right-sided infiltrate
--- NOTE | 2017-12-25 11:47 | PN ---
DATE: 12/25/2017 PULMONARY PROGRESS NOTE SUBJECTIVE: Patient was seen and examined at bedside. He does not appear to be in any respiratory distress. He is still in Intensive Care Unit, receiving inhalation treatment and receiving inotropic support in the form of dobutamine. He is on vancomycin and meropenem for health care associated pneumonia. PHYSICAL EXAMINATION: VITAL SIGNS: His temperature is 98, pulse 62, respirations 26, pulse oxymetry on nasal cannula is 98%. HEENT: Within normal limits. NECK: Supple. There is no jugular vein distention. CARDIOVASCULAR: S1, S2. No S3. Irregular. PULMONARY: Diminished breath sounds at both lung bases, diffuse scattered rhonchi. No wheezing. GASTROINTESTINAL: Soft, nontender. No organomegaly. EXTREMITIES: No pedal edema, no cyanosis. NEUROLOGIC: Limited at present time. LABORATORY DATA: Additional data reviewed. Today's blood work. Potassium is low at 2.9. The rest of the electrolytes are normal. His WBC is reduced at 2.8 and hemoglobin of 10.4. I also reviewed today's chest x-ray. Images are not available at the present time and report is pending. The last chest x-ray showed no change in right sided infiltrate. Currently, the images are available and there are bilateral congestive changes with more prominent findings on right side CHF plus/minus pneumonia. ASSESSMENT: 1. Healthcare associated pneumonia. 2. Acute bronchospasm. 3. Possible urinary tract infection. 4. Non ST elevation myocardial infarction. 5. Dementia. PLAN: Patient appears improved this morning. He is no longer in respiratory distress. He is being treated for pneumonia which is most likely due to recurrent aspirations. From a cardiovascular stand point, Dr. Landry is following him. There appears to be more congestion than was previously appreciated that will be communicated to our Primary and Cardiology. Italo Osman MD
[2017-12-25] MEDS: Potassium Chloride 40 mEq/30 ml LIQ UD PO SCH ×3 (12:55→20:36)
[2017-12-25] MEDS: guaiFENesin DM 100 mg-10 mg/5 ml UD PO SCH ×3 (12:55→23:23)
--- NOTE | 2017-12-25 15:31 | CP.PCM.PN ---
Subjective - Date & Time of Evaluation Date of Evaluation: 12/25/17 Time of Evaluation: 11:00 - Subjective Subjective: Patient is resting comfortably in bed, no fevers, not in distress. Objective - Vital Signs/Intake and Output Vital Signs (last 24 hours): Temp Pulse Resp BP Pulse Ox 98.4 F 62 31 H 91/52 L 97 12/25/17 08:00 12/25/17 07:45 12/25/17 05:10 12/25/17 07:45 12/25/17 05:10 Intake and Output: 12/25/17 12/25/17 06:59 18:59 Intake Total 250 Output Total 800 Balance -800 250 - Medications Medications: Current Medications Acetaminophen (Tylenol 325mg Tab) 650 mg PO Q6H PRN PRN Reason: Fever >100.4 F Acetylcysteine (Acetylcysteine 20%) 4 ml IH [id number] [facility] Last Admin: 12/25/17 07:43 Dose: 4 ml Albuterol Sulfate (Albuterol 0.083% Inhal Ronda (2.5 Mg/3 Ml) Ud) 2.5 mg IH [id number] [facility] Last Admin: 12/25/17 07:43 Dose: 2.5 mg Albuterol/Ipratropium (Duoneb 3 Mg/0.5 Mg (3 Ml) Ud) 3 ml IH Q2H PRN PRN Reason: Shortness of Breath Aspirin (Ecotrin) 81 mg PO DAILY [facility] Atorvastatin Calcium (Lipitor) 40 mg PO HS [facility] Last Admin: 12/24/17 21:13 Dose: 40 mg Budesonide (Pulmicort Respules) 0.5 mg IH [id number] [facility] Last Admin: 12/25/17 07:43 Dose: 0.5 mg Enoxaparin Sodium (Lovenox) 40 mg SC DAILY [facility]; Protocol Last Admin: 12/24/17 13:51 Dose: 40 mg Guaifenesin/Dextromethorphan (Robitussin Dm) 5 ml PO Q6 [facility] Sodium Chloride (Sodium Chloride 0.9%) 1,000 mls @ 75 mls/hr IV .[id number] [facility] Last Admin: 12/25/17 05:25 Dose: 75 mls/hr Vancomycin HCl (Vancomycin 1gm) 1 gm in 250 mls @ 167 mls/hr IVPB DAILY [facility]; Protocol Last Admin: 12/24/17 09:52 Dose: 167 mls/hr Levofloxacin/Dextrose (Levaquin 750mg) 750 mg in 150 mls @ 100 mls/hr IVPB DAILY [facility]; Protocol Stop: 01/01/18 11:47 Last Admin: 12/24/17 09:52 Dose: 100 mls/hr Meropenem (Merrem Iv 1 Gm Premix) 1 gm in 50 mls @ 12.5 mls/hr IVPB Q8 [facility]; Protocol Stop: 01/01/18 14:01 Last Admin: 12/25/17 05:24 Dose: 12.5 mls/hr Dobutamine HCl/Dextrose (Dobutamine/Dextrose 5% 500mg/250ml) 500 mg in 250 mls @ 9.525 mls/hr IV .Q24H PRN; Protocol PRN Reason: TITRATE PER PROTOCOL Last Admin: 12/25/17 07:45 Dose: 5 mcg/kg/min, 9.525 mls/hr Potassium Chloride (Potassium Chloride 10 Meq/100 Ml) 10 meq in 100 mls @ 10 mls/hr IVPB Q2H [facility] Stop: 12/25/17 11:14 Last Admin: 12/25/17 07:48 Dose: 10 mls/hr Pantoprazole Sodium (Protonix Inj) 40 mg IVP DAILY [facility] Last Admin: 12/24/17 09:52 Dose: 40 mg Potassium Chloride (Potassium Chloride Oral Soln) 40 meq PO Q4 [facility] Stop: 12/25/17 20:01 - Labs Labs: 12/25/17 05:00 12/25/17 05:00 PT 15.0 SECONDS (9.4-12.5) H 12/22/17 19:20 INR 1.31 12/22/17 19:20 APTT 30.2 Seconds (25.1-36.5) 12/22/17 19:20 - Constitutional Appears: Non-toxic, Chronically Ill - Head Exam Head Exam: NORMAL INSPECTION - Neck Exam Neck Exam: absent: Meningismus - Respiratory Exam Respiratory Exam: Decreased Breath Sounds - Cardiovascular Exam Cardiovascular Exam: +S1, +S2 - GI/Abdominal Exam GI & Abdominal Exam: Soft. absent: Tenderness Assessment and Plan - Assessment and Plan (Free Text) Plan: Assessment severe sepsis due to multifocal lower lobe pneumonia with possible gram positive cocci and/or gram negative bacilli and or atypical organisms, slowly improving history of right sided HCAP history of C. 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 coli bacteremia and sepsis probably biliary tree in origin History of Klebsiella UTI Plan continue Vancomycin, Merrem and Levaquin day 3 to complete 4-7 days of therapy pending final culture results and MRSA nares will continue to monitor clinically overall prognosis is poor
[2017-12-25 15:40] LABS: BLOOD UREA NITROGEN 10 mg/dL (7-21); CALCIUM 8.3 mg/dL (8.4-10.5); GFR NON-AFRICAN AMERICAN > 60
[2017-12-26] MEDS: Albuterol 0.083% Inhal Sol (2.5 mg/3 mL) UD IH SCH ×4 (02:14→20:18)
[2017-12-26] MEDS: Acetylcysteine 20% Inhal Soln (4ml) IH SCH ×4 (02:15→20:18)
[2017-12-26] MEDS: Meropenem IV 1 gm in NS 1 GM/50 ML BAG IVPB SCH ×3 (05:42→23:45)
[2017-12-26] MEDS: guaiFENesin DM 100 mg-10 mg/5 ml UD PO SCH ×3 (05:43→17:45)
[2017-12-26 06:11] LABS: BASO # 0.01 K/mm3 (0.0-2.0); BASO % 0.3 % (0.0-3.0); EOS # 0.3 (0.0-0.7); EOS % 7.9 % (1.5-5.0); GRAN # 2.58 (1.4-6.5); GRAN % 72.9 % (50.0-68.0); HEMOGLOBIN 10.4 g/dL (14.0-18.0); LYMPH # 0.3 (1.2-3.4); LYMPH % 8.2 % (22.0-35.0); MEAN CELL VOLUME 87.9 fl (80.0-105.0); MEAN CORPUSCULAR HEMOGLOBIN 29.9 pg (25.0-35.0); MEAN PLATELET VOLUME 9.8 fl (7.0-11.0); MONO # 0.4 (0.1-0.6); MONO % 10.7 % (1.0-6.0); RBC 3.48 10^6/uL (3.5-6.1); WHITE BLOOD COUNT 3.5 10^3/ul (4.5-11.0)
[2017-12-26 06:32] LABS: ALB/GLOB RATIO 1.2 (1.1-1.8); ALBUMIN 2.5 g/dL (3.0-4.8); ALT/SGPT 30 U/L (7-56); AST/SGOT 32 U/L (17-59); BLOOD UREA NITROGEN 6 mg/dL (7-21); GFR NON-AFRICAN AMERICAN > 60
[2017-12-26] MEDS: levoFLOXacin 750 mg in D5W 750 MG/150 ML BAG IVPB SCH (09:50)
[2017-12-26] MEDS: Enoxaparin 40 mg Syringe SC SCH (09:51)
[2017-12-26] MEDS: Sodium Chloride 0.9% 1,000 ML IV SCH (10:00)
[2017-12-26] MEDS ORDERED: Potassium & Sodium Phosphate PO SCH (10:15)
[2017-12-26] MEDS: DOBUTamine 500mg/250ml D5W 500 MG/250 ML BAG IV PRN (10:27)
[2017-12-26] MEDS ORDERED: Potassium Phosphate 15 MMOLE in Dextrose 5% In Water 250 ML IVPB ONE (10:44)
[2017-12-26] MEDS ORDERED: Potassium Phosphate 15 MMOLE in Sodium Chloride 0.9% 250 ML IVPB ONE (10:48)
--- NOTE | 2017-12-26 10:48 | RAD ---
Date of service: 12/26/2017 HISTORY: f/u COMPARISON: 12/25/2017 FINDINGS: LUNGS: Vascular congestion and perihilar edema unchanged PLEURA: No significant pleural effusion identified, no pneumothorax apparent. CARDIOVASCULAR: Normal. OSSEOUS STRUCTURES: No significant abnormalities. VISUALIZED UPPER ABDOMEN: Normal. OTHER FINDINGS: None. IMPRESSION: Vascular congestion and perihilar edema unchanged
--- NOTE | 2017-12-26 10:54 | PN ---
DATE: 12/26/2017 PULMONARY PROGRESS NOTE SUBJECTIVE: Patient was seen and examined in the intensive care unit with family present at bedside. He is currently receiving inhalation treatment with albuterol and added inhalant steroid as well as inhalant Mucomyst. He is on intravenous antibiotics as well as dobutamine. PHYSICAL EXAMINATION: VITAL SIGNS: His temperature is 96, pulse 63, respirations 28 and pulse oximetry is 100% on nasal cannula. Blood pressure is 123/73. HEENT: Head normocephalic and atraumatic. NECK: Supple. There is no jugular vein distentions. CARDIOVASCULAR: S1, S2. No S3. Irregular. PULMONARY: Diminished breath sounds at both bases with a few rhonchi. No wheezing. GASTROINTESTINAL: Soft, nontender. No organomegaly. EXTREMITIES: No pedal edema, no cyanosis. SKIN: No acute skin rash. NEUROLOGIC: Limited at the present time. LABORATORY DATA: Reviewed. His serum sodium is 138, potassium 3.6 anion gap is 7. His WBC is 3.5, hemoglobin of 10.4. ASSESSMENT: 1. Sepsis secondary to exacerbation of chronic obstructive pulmonary disease. 2. Hypertension. 3. Hypoxia. PLAN: Patient is on dobutamine per critical systems technician. He is known with very low ejection fraction and actually is helping the situation. His oxygen saturations are acceptable on 2 liters per minute of oxygen; so, he is making progress as far as pulmonary situation is going. His healthcare-associated pneumonia showed not much improvement on the yesterday's chest x-ray, we will review today's film when available. Otherwise, the situation is stable enough to be transferred to telemetry from the pulmonary standpoint. Reviewing the chest x-ray, there is no improvement in bilateral congestive changes. I suspect most of it is congestive heart failure rather than pneumonia. Italo Osman MD
--- NOTE | 2017-12-26 11:04 | CP.CCUPN ---
<Noble Metcalf - Last Filed: 12/26/17 11:23> CCU Subjective - Physician Review Subjective (Free Text): Noble Metcalf DO, PGY-1 ICU Progress Note for Dr. Pappas Patient was seen and examined at bedside this AM. No acute events overnight, patient cough improving, has been maintaining SpO2 > 93%. CCU Objective - Vital Signs / Intake & Output Vital Signs (Last 4 hours): Vital Signs Pulse Resp BP Pulse Ox 12/26/17 10:27 60 103/50 L 12/26/17 07:15 63 33 H 123/73 100 12/26/17 07:10 62 24 99 Intake and Output (Last 8hrs): Intake & Output 12/25/17 12/26/17 12/26/17 22:59 06:59 14:59 Intake Total 1300 1234 250 Output Total 500 1100 Balance 800 134 250 Intake: IV 900 1114 250 Right Forearm 900 1114 Oral 400 120 Output: Urine 500 1100 Urethral (Tong) 500 1100 Other: # Bowel Movements 1 - Physical Exam Head: Positive for: Atraumatic, Normocephalic Pupils: Positive for: PERRL Extroacular Muscles: Positive for: EOMI Conjunctiva: Positive for: Normal Mouth: Positive for: Moist Mucous Membranes Nose (External): Positive for: Atraumatic Neck: Positive for: Normal Range of Motion Respiratory/Chest: Positive for: Clear to Auscultation. Negative for: Respiratory Distress, Accessory Muscle Use, Wheezes, Rhonchi Cardiovascular: Positive for: Regular Rate and Rhythm, Normal S1, S2. Negative for: Murmurs, Rub, Gallop Abdomen: Positive for: Distention (mild abdominal distention), Normal Bowel Sounds Upper Extremity: Positive for: Normal Inspection. Negative for: Cyanosis, Edema Lower Extremity: Positive for: Normal Inspection. Negative for: Edema Neurological: Positive for: Motor Func Grossly Intact Skin: Positive for: Warm, Dry. Negative for: Rashes Psychiatric: Positive for: Alert, Other (not oriented to person, place, time or situation, this is patient's baseline) - Medications Active Medications: Active Medications Generic Name Dose Route Start Last Admin Trade Name Freq PRN Reason Stop Dose Admin Acetaminophen 650 mg 12/25/17 08:52 Tylenol 325mg Tab PO Q6H PRN Fever >100.4 F Acetylcysteine 4 ml 12/23/17 08:00 12/26/17 02:15 Acetylcysteine 20% IH 4 ml [id number] YOLANDA Administration Albuterol Sulfate 2.5 mg 12/23/17 08:00 12/26/17 02:14 Albuterol 0.083% Inhal Ronda (2.5 Mg/3 Ml) Ud IH 2.5 mg [id number] YOLANDA Administration Albuterol/Ipratropium 3 ml 12/22/17 22:57 Duoneb 3 Mg/0.5 Mg (3 Ml) Ud IH Q2H PRN Shortness of Breath Aspirin 81 mg 12/25/17 10:00 12/26/17 09:50 Ecotrin PO 81 mg DAILY YOLANDA Administration Atorvastatin Calcium 40 mg 12/22/17 23:15 12/25/17 22:05 Lipitor PO 40 mg HS YOLANDA Administration Budesonide 0.5 mg 12/23/17 08:00 12/25/17 19:36 Pulmicort Respules IH 0.5 mg [id number] YOLANDA Administration Enoxaparin Sodium 40 mg 12/24/17 10:45 12/26/17 09:51 Lovenox SC 40 mg DAILY YOLANDA Administration Protocol Guaifenesin/Dextromethorphan 5 ml 12/25/17 12:00 12/26/17 05:43 Robitussin Dm PO 5 ml Q6 YOLANDA Administration Sodium Chloride 1,000 mls @ 75 mls/hr 12/22/17 23:00 12/26/17 10:00 Sodium Chloride 0.9% IV 75 mls/hr .[id number] YOLANDA Administration Levofloxacin/Dextrose 750 mg in 150 mls @ 100 mls/hr 12/23/17 11:46 12/26/17 09:50 Levaquin 750mg IVPB 01/01/18 11:47 100 mls/hr DAILY YOLANDA Administration Protocol Meropenem 1 gm in 50 mls @ 12.5 mls/hr 12/23/17 14:00 12/26/17 05:42 Merrem Iv 1 Gm Premix IVPB 01/01/18 14:01 12.5 mls/hr Q8 YOLANDA Administration Protocol Dobutamine HCl/Dextrose 500 mg in 250 mls @ 9.525 mls/hr 12/24/17 08:58 12/26/17 10:27 Dobutamine/Dextrose 5% 500mg/250ml IV 5 mcg/kg/min .Q24H PRN 9.525 mls/hr TITRATE PER PROTOCOL Administration Protocol 5 MCG/KG/MIN Potassium Phosphate 15 mmole/ 255 mls @ 42.5 mls/hr 12/26/17 10:48 Sodium Chloride IVPB 12/26/17 16:43 ONCE ONE Pantoprazole Sodium 40 mg 12/23/17 10:00 12/26/17 09:50 Protonix Inj IVP 40 mg DAILY YOLANDA Administration - Patient Studies Lab Studies: Microbiology Studies 12/22/17 13:45 Blood Culture - Preliminary Blood NO GROWTH AFTER 3 DAYS 12/22/17 19:20 Blood Culture - Preliminary Blood NO GROWTH AFTER 3 DAYS 12/23/17 00:35 Gram Stain - Final Sputum Sputum Culture - Final Yeast Species Lab Studies 12/26/17 12/26/17 12/26/17 Range/Units 08:11 05:00 05:00 WBC 3.5 L D (4.5-11.0) 10^3/ul RBC 3.48 L (3.5-6.1) 10^6/uL Hgb 10.4 L (14.0-18.0) g/dL Hct 30.6 L (42.0-52.0) % MCV 87.9 (80.0-105.0) fl MCH 29.9 (25.0-35.0) pg MCHC 34.0 (31.0-37.0) g/dl RDW 15.0 H (11.5-14.5) % Plt Count 107 L (120.0-450.0) 10^3/uL MPV 9.8 (7.0-11.0) fl Gran % 72.9 H (50.0-68.0) % Lymph % (Auto) 8.2 L (22.0-35.0) % Day % (Auto) 10.7 H (1.0-6.0) % Eos % (Auto) 7.9 H (1.5-5.0) % Baso % (Auto) 0.3 (0.0-3.0) % Gran # 2.58 (1.4-6.5) Lymph # (Auto) 0.3 L (1.2-3.4) Day # (Auto) 0.4 (0.1-0.6) Eos # (Auto) 0.3 (0.0-0.7) Baso # (Auto) 0.01 (0.0-2.0) K/mm3 Sodium 138 (132-148) mmol/L Potassium 3.6 (3.6-5.0) mmol/L Chloride 107 (98-107) mmol/L Carbon Dioxide 27 (21-33) mmol/L Anion Gap 7 L (10-20) BUN 6 L (7-21) mg/dL Creatinine 0.6 L (0.8-1.5) mg/dl Est GFR ( Amer) > 60 Est GFR (Non-Af Amer) > 60 POC Glucose (mg/dL) 121 H (65-110) mg/dL Random Glucose 115 H (70-110) mg/dL Calcium 8.0 L (8.4-10.5) mg/dL Phosphorus 1.6 L (2.5-4.5) mg/dL Magnesium 1.7 (1.7-2.2) mg/dL Total Bilirubin 1.0 (0.2-1.3) mg/dL AST 32 (17-59) U/L ALT 30 (7-56) U/L Alkaline Phosphatase 50 (38-126) U/L Total Protein 4.6 L (5.8-8.3) g/dL Albumin 2.5 L (3.0-4.8) g/dL Globulin 2.0 gm/dL Albumin/Globulin Ratio 1.2 (1.1-1.8) 12/25/17 12/25/17 12/25/17 Range/Units 21:56 16:55 15:11 WBC (4.5-11.0) 10^3/ul RBC (3.5-6.1) 10^6/uL Hgb (14.0-18.0) g/dL Hct (42.0-52.0) % MCV (80.0-105.0) fl MCH (25.0-35.0) pg MCHC (31.0-37.0) g/dl RDW (11.5-14.5) % Plt Count (120.0-450.0) 10^3/uL MPV (7.0-11.0) fl Gran % (50.0-68.0) % Lymph % (Auto) (22.0-35.0) % Day % (Auto) (1.0-6.0) % Eos % (Auto) (1.5-5.0) % Baso % (Auto) (0.0-3.0) % Gran # (1.4-6.5) Lymph # (Auto) (1.2-3.4) Day # (Auto) (0.1-0.6) Eos # (Auto) (0.0-0.7) Baso # (Auto) (0.0-2.0) K/mm3 Sodium 139 (132-148) mmol/L Potassium 3.4 L (3.6-5.0) mmol/L Chloride 109 H (98-107) mmol/L Carbon Dioxide 25 (21-33) mmol/L Anion Gap 8 L (10-20) BUN 10 (7-21) mg/dL Creatinine 0.6 L (0.8-1.5) mg/dl Est GFR ( Amer) > 60 Est GFR (Non-Af Amer) > 60 POC Glucose (mg/dL) 141 H 136 H (65-110) mg/dL Random Glucose 165 H (70-110) mg/dL Calcium 8.3 L (8.4-10.5) mg/dL Phosphorus (2.5-4.5) mg/dL Magnesium (1.7-2.2) mg/dL Total Bilirubin (0.2-1.3) mg/dL AST (17-59) U/L ALT (7-56) U/L Alkaline Phosphatase (38-126) U/L Total Protein (5.8-8.3) g/dL Albumin (3.0-4.8) g/dL Globulin gm/dL Albumin/Globulin Ratio (1.1-1.8) Laboratory Results - last 24 hr 12/25/17 12/25/17 12/25/17 15:11 16:55 21:56 WBC RBC Hgb Hct MCV MCH MCHC RDW Plt Count MPV Gran % Lymph % (Auto) Day % (Auto) Eos % (Auto) Baso % (Auto) Gran # Lymph # (Auto) Day # (Auto) Eos # (Auto) Baso # (Auto) Sodium 139 Potassium 3.4 L Chloride 109 H Carbon Dioxide 25 Anion Gap 8 L BUN 10 Creatinine 0.6 L Est GFR ( Amer) > 60 Est GFR (Non-Af Amer) > 60 POC Glucose (mg/dL) 136 H 141 H Random Glucose 165 H Calcium 8.3 L Phosphorus Magnesium Total Bilirubin AST ALT Alkaline Phosphatase Total Protein Albumin Globulin Albumin/Globulin Ratio 12/26/17 12/26/17 12/26/17 05:00 05:00 08:11 WBC 3.5 L D RBC 3.48 L Hgb 10.4 L Hct 30.6 L MCV 87.9 MCH 29.9 MCHC 34.0 RDW 15.0 H Plt Count 107 L MPV 9.8 Gran % 72.9 H Lymph % (Auto) 8.2 L Day % (Auto) 10.7 H Eos % (Auto) 7.9 H Baso % (Auto) 0.3 Gran # 2.58 Lymph # (Auto) 0.3 L Day # (Auto) 0.4 Eos # (Auto) 0.3 Baso # (Auto) 0.01 Sodium 138 Potassium 3.6 Chloride 107 Carbon Dioxide 27 Anion Gap 7 L BUN 6 L Creatinine 0.6 L Est GFR ( Amer) > 60 Est GFR (Non-Af Amer) > 60 POC Glucose (mg/dL) 121 H Random Glucose 115 H Calcium 8.0 L Phosphorus 1.6 L Magnesium 1.7 Total Bilirubin 1.0 AST 32 ALT 30 Alkaline Phosphatase 50 Total Protein 4.6 L Albumin 2.5 L Globulin 2.0 Albumin/Globulin Ratio 1.2 Fingerstick Blood Sugar Results: 141 Review of Systems - Review of Systems Systems not reviewed;Unavailable: Dementia Critical Care Progress Note - Nutrition Nutrition: Nutrition Category Date Time Status Heart Healthy Diet [DIET] Diets 12/24/17 Dinner Active Assessment/Plan - Assessment and Plan (Free Text) Assessment: 77 yo M admitted to ICU for sepsis with hypotension/tachycardia 2/2 bilateral HCAP. Patient currently normotensive, RRR, SpO2 > 93%, stable for transfer out of MICU. Plan: Neuro: Alert but not oriented to person, time, place, or situation Hx of Alzheimer's dementia at baseline Cardio: RRR, normotensive overnight Has hx of CHF with last EF of 25% Cardiology following, recs appreciated Pulm: Now SpO2 is >95 on 2 L NC Continue to maintain SpO2 > 93% Continue duo neb treatments Q6h scheduled GI: Swallow eval completed, cleared for soft diet Patient tolerating diet well without nausea/vomiting /Nephro: UA positive for pyuria, significant yeast, and leuk esterase Tong in place BUN/Cr stable, continue to monitor Maintain euvolemia Replete electrolytes as needed Endocrine: Maintain euglycemia ID: Received empiric vanc, flagyl, and cipro in ED On levaquin, vanc, and merem per ID ID following, recs appreciated Heme/onc: H/H stable at 10.4/30.6 Continue to monitor H/H and for signs of HD compromise DVT PPX: lovenox, SCDs GI PPX: Protonix Full Code Case and plan reviewed and discussed with my attending Dr. Elyse Metcalf DO IM Resident PGY-1 <Emerson Pappas - Last Filed: 12/26/17 12:24> CCU Objective - Vital Signs / Intake & Output Vital Signs (Last 4 hours): Vital Signs Pulse BP 12/26/17 10:27 60 103/50 L Intake and Output (Last 8hrs): Intake & Output 12/25/17 12/26/17 12/26/17 22:59 06:59 14:59 Intake Total 1300 1234 250 Output Total 500 1100 Balance 800 134 250 Intake: IV 900 1114 250 Right Forearm 900 1114 Oral 400 120 Output: Urine 500 1100 Urethral (Tong) 500 1100 Other: # Bowel Movements 1 - Medications Active Medications: Active Medications Generic Name Dose Route Start Last Admin Trade Name Freq PRN Reason Stop Dose Admin Acetaminophen 650 mg 12/25/17 08:52 Tylenol 325mg Tab PO Q6H PRN Fever >100.4 F Acetylcysteine 4 ml 12/23/17 08:00 12/26/17 02:15 Acetylcysteine 20% IH 4 ml [id number] YOLANDA Administration Albuterol Sulfate 2.5 mg 12/23/17 08:00 12/26/17 02:14 Albuterol 0.083% Inhal Ronda (2.5 Mg/3 Ml) Ud IH 2.5 mg [id number] YOLANDA Administration Albuterol/Ipratropium 3 ml 12/22/17 22:57 Duoneb 3 Mg/0.5 Mg (3 Ml) Ud IH Q2H PRN Shortness of Breath Aspirin 81 mg 12/25/17 10:00 12/26/17 09:50 Ecotrin PO 81 mg DAILY YOLANDA Administration Atorvastatin Calcium 40 mg 12/22/17 23:15 12/25/17 22:05 Lipitor PO 40 mg HS YOLANDA Administration Budesonide 0.5 mg 12/23/17 08:00 12/25/17 19:36 Pulmicort Respules IH 0.5 mg [id number] YOLANDA Administration Enoxaparin Sodium 40 mg 12/24/17 10:45 12/26/17 09:51 Lovenox SC 40 mg DAILY YOLANDA Administration Protocol Guaifenesin/Dextromethorphan 5 ml 12/25/17 12:00 12/26/17 11:54 Robitussin Dm PO 5 ml Q6 YOLANDA Administration Sodium Chloride 1,000 mls @ 75 mls/hr 12/22/17 23:00 12/26/17 10:00 Sodium Chloride 0.9% IV 75 mls/hr .[id number] YOLANDA Administration Levofloxacin/Dextrose 750 mg in 150 mls @ 100 mls/hr 12/23/17 11:46 12/26/17 09:50 Levaquin 750mg IVPB 01/01/18 11:47 100 mls/hr DAILY YOLANDA Administration Protocol Meropenem 1 gm in 50 mls @ 12.5 mls/hr 12/23/17 14:00 12/26/17 05:42 Merrem Iv 1 Gm Premix IVPB 01/01/18 14:01 12.5 mls/hr Q8 YOLANDA Administration Protocol Dobutamine HCl/Dextrose 500 mg in 250 mls @ 9.525 mls/hr 12/24/17 08:58 12/26/17 10:27 Dobutamine/Dextrose 5% 500mg/250ml IV 5 mcg/kg/min .Q24H PRN 9.525 mls/hr TITRATE PER PROTOCOL Administration Protocol 5 MCG/KG/MIN Potassium Phosphate 15 mmole/ 255 mls @ 42.5 mls/hr 12/26/17 10:48 12/26/17 11:52 Sodium Chloride IVPB 12/26/17 16:43 42.5 mls/hr ONCE ONE Administration Pantoprazole Sodium 40 mg 12/23/17 10:00 12/26/17 09:50 Protonix Inj IVP 40 mg DAILY YOLANDA Administration - Patient Studies Lab Studies: Microbiology Studies 12/22/17 13:45 Blood Culture - Preliminary Blood NO GROWTH AFTER 3 DAYS 12/22/17 19:20 Blood Culture - Preliminary Blood NO GROWTH AFTER 3 DAYS 12/23/17 00:35 Gram Stain - Final Sputum Sputum Culture - Final Yeast Species Lab Studies 12/26/17 12/26/17 12/26/17 Range/Units 11:14 08:11 05:00 WBC (4.5-11.0) 10^3/ul RBC (3.5-6.1) 10^6/uL Hgb (14.0-18.0) g/dL Hct (42.0-52.0) % MCV (80.0-105.0) fl MCH (25.0-35.0) pg MCHC (31.0-37.0) g/dl RDW (11.5-14.5) % Plt Count (120.0-450.0) 10^3/uL MPV (7.0-11.0) fl Gran % (50.0-68.0) % Lymph % (Auto) (22.0-35.0) % Day % (Auto) (1.0-6.0) % Eos % (Auto) (1.5-5.0) % Baso % (Auto) (0.0-3.0) % Gran # (1.4-6.5) Lymph # (Auto) (1.2-3.4) Day # (Auto) (0.1-0.6) Eos # (Auto) (0.0-0.7) Baso # (Auto) (0.0-2.0) K/mm3 Sodium 138 (132-148) mmol/L Potassium 3.6 (3.6-5.0) mmol/L Chloride 107 (98-107) mmol/L Carbon Dioxide 27 (21-33) mmol/L Anion Gap 7 L (10-20) BUN 6 L (7-21) mg/dL Creatinine 0.6 L (0.8-1.5) mg/dl Est GFR ( Amer) > 60 Est GFR (Non-Af Amer) > 60 POC Glucose (mg/dL) 146 H 121 H (65-110) mg/dL Random Glucose 115 H (70-110) mg/dL Calcium 8.0 L (8.4-10.5) mg/dL Phosphorus 1.6 L (2.5-4.5) mg/dL Magnesium 1.7 (1.7-2.2) mg/dL Total Bilirubin 1.0 (0.2-1.3) mg/dL AST 32 (17-59) U/L ALT 30 (7-56) U/L Alkaline Phosphatase 50 (38-126) U/L Total Protein 4.6 L (5.8-8.3) g/dL Albumin 2.5 L (3.0-4.8) g/dL Globulin 2.0 gm/dL Albumin/Globulin Ratio 1.2 (1.1-1.8) 12/26/17 12/25/17 12/25/17 Range/Units 05:00 21:56 16:55 WBC 3.5 L D (4.5-11.0) 10^3/ul RBC 3.48 L (3.5-6.1) 10^6/uL Hgb 10.4 L (14.0-18.0) g/dL Hct 30.6 L (42.0-52.0) % MCV 87.9 (80.0-105.0) fl MCH 29.9 (25.0-35.0) pg MCHC 34.0 (31.0-37.0) g/dl RDW 15.0 H (11.5-14.5) % Plt Count 107 L (120.0-450.0) 10^3/uL MPV 9.8 (7.0-11.0) fl Gran % 72.9 H (50.0-68.0) % Lymph % (Auto) 8.2 L (22.0-35.0) % Day % (Auto) 10.7 H (1.0-6.0) % Eos % (Auto) 7.9 H (1.5-5.0) % Baso % (Auto) 0.3 (0.0-3.0) % Gran # 2.58 (1.4-6.5) Lymph # (Auto) 0.3 L (1.2-3.4) Day # (Auto) 0.4 (0.1-0.6) Eos # (Auto) 0.3 (0.0-0.7) Baso # (Auto) 0.01 (0.0-2.0) K/mm3 Sodium (132-148) mmol/L Potassium (3.6-5.0) mmol/L Chloride (98-107) mmol/L Carbon Dioxide (21-33) mmol/L Anion Gap (10-20) BUN (7-21) mg/dL Creatinine (0.8-1.5) mg/dl Est GFR ( Amer) Est GFR (Non-Af Amer) POC Glucose (mg/dL) 141 H 136 H (65-110) mg/dL Random Glucose (70-110) mg/dL Calcium (8.4-10.5) mg/dL Phosphorus (2.5-4.5) mg/dL Magnesium (1.7-2.2) mg/dL Total Bilirubin (0.2-1.3) mg/dL AST (17-59) U/L ALT (7-56) U/L Alkaline Phosphatase (38-126) U/L Total Protein (5.8-8.3) g/dL Albumin (3.0-4.8) g/dL Globulin gm/dL Albumin/Globulin Ratio (1.1-1.8) 12/25/17 Range/Units 15:11 WBC (4.5-11.0) 10^3/ul RBC (3.5-6.1) 10^6/uL Hgb (14.0-18.0) g/dL Hct (42.0-52.0) % MCV (80.0-105.0) fl MCH (25.0-35.0) pg MCHC (31.0-37.0) g/dl RDW (11.5-14.5) % Plt Count (120.0-450.0) 10^3/uL MPV (7.0-11.0) fl Gran % (50.0-68.0) % Lymph % (Auto) (22.0-35.0) % Day % (Auto) (1.0-6.0) % Eos % (Auto) (1.5-5.0) % Baso % (Auto) (0.0-3.0) % Gran # (1.4-6.5) Lymph # (Auto) (1.2-3.4) Day # (Auto) (0.1-0.6) Eos # (Auto) (0.0-0.7) Baso # (Auto) (0.0-2.0) K/mm3 Sodium 139 (132-148) mmol/L Potassium 3.4 L (3.6-5.0) mmol/L Chloride 109 H (98-107) mmol/L Carbon Dioxide 25 (21-33) mmol/L Anion Gap 8 L (10-20) BUN 10 (7-21) mg/dL Creatinine 0.6 L (0.8-1.5) mg/dl Est GFR ( Amer) > 60 Est GFR (Non-Af Amer) > 60 POC Glucose (mg/dL) (65-110) mg/dL Random Glucose 165 H (70-110) mg/dL Calcium 8.3 L (8.4-10.5) mg/dL Phosphorus (2.5-4.5) mg/dL Magnesium (1.7-2.2) mg/dL Total Bilirubin (0.2-1.3) mg/dL AST (17-59) U/L ALT (7-56) U/L Alkaline Phosphatase (38-126) U/L Total Protein (5.8-8.3) g/dL Albumin (3.0-4.8) g/dL Globulin gm/dL Albumin/Globulin Ratio (1.1-1.8) Laboratory Results - last 24 hr 12/25/17 12/25/17 12/25/17 15:11 16:55 21:56 WBC RBC Hgb Hct MCV MCH MCHC RDW Plt Count MPV Gran % Lymph % (Auto) Day % (Auto) Eos % (Auto) Baso % (Auto) Gran # Lymph # (Auto) Day # (Auto) Eos # (Auto) Baso # (Auto) Sodium 139 Potassium 3.4 L Chloride 109 H Carbon Dioxide 25 Anion Gap 8 L BUN 10 Creatinine 0.6 L Est GFR ( Amer) > 60 Est GFR (Non-Af Amer) > 60 POC Glucose (mg/dL) 136 H 141 H Random Glucose 165 H Calcium 8.3 L Phosphorus Magnesium Total Bilirubin AST ALT Alkaline Phosphatase Total Protein Albumin Globulin Albumin/Globulin Ratio 12/26/17 12/26/1718 05:00 05:00 08:11 WBC 3.5 L D RBC 3.48 L Hgb 10.4 L Hct 30.6 L MCV 87.9 MCH 29.9 MCHC 34.0 RDW 15.0 H Plt Count 107 L MPV 9.8 Gran % 72.9 H Lymph % (Auto) 8.2 L Day % (Auto) 10.7 H Eos % (Auto) 7.9 H Baso % (Auto) 0.3 Gran # 2.58 Lymph # (Auto) 0.3 L Day # (Auto) 0.4 Eos # (Auto) 0.3 Baso # (Auto) 0.01 Sodium 138 Potassium 3.6 Chloride 107 Carbon Dioxide 27 Anion Gap 7 L BUN 6 L Creatinine 0.6 L Est GFR ( Amer) > 60 Est GFR (Non-Af Amer) > 60 POC Glucose (mg/dL) 121 H Random Glucose 115 H Calcium 8.0 L Phosphorus 1.6 L Magnesium 1.7 Total Bilirubin 1.0 AST 32 ALT 30 Alkaline Phosphatase 50 Total Protein 4.6 L Albumin 2.5 L Globulin 2.0 Albumin/Globulin Ratio 1.2 12/26/17 11:14 WBC RBC Hgb Hct MCV MCH MCHC RDW Plt Count MPV Gran % Lymph % (Auto) Day % (Auto) Eos % (Auto) Baso % (Auto) Gran # Lymph # (Auto) Day # (Auto) Eos # (Auto) Baso # (Auto) Sodium Potassium Chloride Carbon Dioxide Anion Gap BUN Creatinine Est GFR ( Amer) Est GFR (Non-Af Amer) POC Glucose (mg/dL) 146 H Random Glucose Calcium Phosphorus Magnesium Total Bilirubin AST ALT Alkaline Phosphatase Total Protein Albumin Globulin Albumin/Globulin Ratio Critical Care Progress Note - Nutrition Nutrition: Nutrition Category Date Time Status Heart Healthy Diet [DIET] Diets 12/24/17 Dinner Active Assessment/Plan - Assessment and Plan (Free Text) Plan: Patient seen and examined on rounds with resident, agree with note with following additions/exceptions: Patient is 77yo male with PMHx of COPD, on home O2, CHF EF 25%, HTN, presented with PNA Currently afebrile, BP stable, comfortable on 2LNC, sat 94% On broad spectrum abx, ID and pulmonary following CHF, chronic systolic PNA SOB Hypoxia, resolved COPD Recommend: - supp o2 as needed, goal sat 90%, duonebs PRN, IS - Solumedrol 20mg daily - follow up cultures, UCx, BCx, Procal, sputum culture, Urine Legionella, Strep - Levaquin, Vancomycin, and Merem per ID - BP control - Dobutamine as per cardiology - GI ppx - DVT ppx - transfer to telemetry
--- NOTE | 2017-12-26 11:19 | CP.PCM.PN ---
<Elvia Ronquillo - Last Filed: 12/26/17 14:08> Subjective - Date & Time of Evaluation Date of Evaluation: 12/26/17 Time of Evaluation: 08:00 - Subjective Subjective: PGY-1 Elvia Ronquillo D.O. Medicine progress note for Dr. Yao's service: Patient was seen and examined this morning. He appears comfortable on nasal ca nnula. He is oriented to person only. He denies any acute complaints. Denies fevers, chills, chest pain, SOB, abdominal pain, urinary symptoms, N/V/C/D. Nurse reports he is having BMs. Objective - Vital Signs/Intake and Output Vital Signs (last 24 hours): Temp Pulse Resp BP Pulse Ox 98.6 F 60 33 H 103/50 L 100 12/26/17 04:00 12/26/17 10:27 12/26/17 07:15 12/26/17 10:27 12/26/17 07:15 Intake and Output: 12/26/17 12/26/17 06:59 18:59 Intake Total 1234 250 Output Total 1100 Balance 134 250 - Medications Medications: Current Medications Acetaminophen (Tylenol 325mg Tab) 650 mg PO Q6H PRN PRN Reason: Fever >100.4 F Acetylcysteine (Acetylcysteine 20%) 4 ml IH [id number] [facility] Last Admin: 12/26/17 02:15 Dose: 4 ml Albuterol Sulfate (Albuterol 0.083% Inhal Ronda (2.5 Mg/3 Ml) Ud) 2.5 mg IH [id number] [facility] Last Admin: 12/26/17 02:14 Dose: 2.5 mg Albuterol/Ipratropium (Duoneb 3 Mg/0.5 Mg (3 Ml) Ud) 3 ml IH Q2H PRN PRN Reason: Shortness of Breath Aspirin (Ecotrin) 81 mg PO DAILY [facility] Last Admin: 12/26/17 09:50 Dose: 81 mg Atorvastatin Calcium (Lipitor) 40 mg PO HS [facility] Last Admin: 12/25/17 22:05 Dose: 40 mg Budesonide (Pulmicort Respules) 0.5 mg IH [id number] [facility] Last Admin: 12/25/17 19:36 Dose: 0.5 mg Enoxaparin Sodium (Lovenox) 40 mg SC DAILY [facility]; Protocol Last Admin: 12/26/17 09:51 Dose: 40 mg Guaifenesin/Dextromethorphan (Robitussin Dm) 5 ml PO Q6 [facility] Last Admin: 12/26/17 05:43 Dose: 5 ml Sodium Chloride (Sodium Chloride 0.9%) 1,000 mls @ 75 mls/hr IV .[id number] [facility] Last Admin: 12/26/17 10:00 Dose: 75 mls/hr Levofloxacin/Dextrose (Levaquin 750mg) 750 mg in 150 mls @ 100 mls/hr IVPB DAILY [facility]; Protocol Stop: 01/01/18 11:47 Last Admin: 12/26/17 09:50 Dose: 100 mls/hr Meropenem (Merrem Iv 1 Gm Premix) 1 gm in 50 mls @ 12.5 mls/hr IVPB Q8 [facility]; Protocol Stop: 01/01/18 14:01 Last Admin: 12/26/17 05:42 Dose: 12.5 mls/hr Dobutamine HCl/Dextrose (Dobutamine/Dextrose 5% 500mg/250ml) 500 mg in 250 mls @ 9.525 mls/hr IV .Q24H PRN; Protocol PRN Reason: TITRATE PER PROTOCOL Last Admin: 12/26/17 10:27 Dose: 5 mcg/kg/min, 9.525 mls/hr Potassium Phosphate 15 mmole/ (Sodium Chloride) 255 mls @ 42.5 mls/hr IVPB ONCE ONE Stop: 12/26/17 16:43 Pantoprazole Sodium (Protonix Inj) 40 mg IVP DAILY [facility] Last Admin: 12/26/17 09:50 Dose: 40 mg - Labs Labs: 12/26/17 05:00 12/26/17 05:00 PT 15.0 SECONDS (9.4-12.5) H 12/22/17 19:20 INR 1.31 12/22/17 19:20 APTT 30.2 Seconds (25.1-36.5) 12/22/17 19:20 - Constitutional Appears: Non-toxic, No Acute Distress - Head Exam Head Exam: ATRAUMATIC, NORMAL INSPECTION - Eye Exam Eye Exam: EOMI, Normal appearance, PERRL - ENT Exam ENT Exam: Mucous Membranes Moist, Normal Exam - Neck Exam Neck Exam: Normal Inspection - Respiratory Exam Respiratory Exam: Decreased Breath Sounds, NORMAL BREATHING PATTERN - Cardiovascular Exam Cardiovascular Exam: REGULAR RHYTHM, +S1, +S2 - GI/Abdominal Exam GI & Abdominal Exam: Soft, Normal Bowel Sounds. absent: Tenderness - Rectal Exam Rectal Exam: Deferred - Extremities Exam Extremities Exam: Normal Inspection. absent: Pedal Edema - Neurological Exam Neurological Exam: Alert, Awake, CN II-XII Intact. absent: Oriented x3 - Psychiatric Exam Psychiatric exam: Normal Affect, Normal Mood - Skin Skin Exam: Dry, Intact, Normal Color, Warm Assessment and Plan - Assessment and Plan (Free Text) Assessment: Patient is a 77 yo male with Alzheimer's who was brought in from [facility] in [place] for cough and congestion. He is being treated for b/l PNA. Initially required BiPap in ICU. Now he is downgraded to telemetry on O2 via NC. Plan: Sepsis 2/2 PNA- history of C. albicans fungemia - CXR: R sided infiltrate, mod vasc congestion - CT chest: dense consolidation in both lower lobes consistent with PNA, no PE - LA 5.3, 4 - Procal 8.41 - Blood Cx no growth >3 days - Sputum Cx yeast- colonizer - Influenza negative - Legionella negative - O2 via NC- titrate 88-92% - Most recent fever 10/5 100.8 - Tylenol 650 mg PO Q6H PRN - Duoneb Q6H YOLANDA, Q2H PRN - Pulmicort Q12H - Robitussin 5 mL PO Q6H - Acetylcysteine Q4H - Levaquin 750 mg IV daily (started 12/23) - Meropenem 1 g IV Q8H (started 12/23) - Discontinue Vancomycin 1 g IV daily - ICU consulted (Panfilo) - ID consulted (Rupa)- completed 4-7 day course of merrem and Levaquin - PT- RADHA (return to [facility]) NSTEMI - Cath last year- triple vessel disease - EKG: NSR at [address]/T wave changes - Trop 0.13, 0.09, 0.10 - ASA 81 mg PO daily - Dobutamine drip - Cardiology consulted (Frantz)- no cath at this time Pancytopenia- improving - Hgb 14->10.4 - WBC 6.9->2.8->3.5 - Plt 83->107 - Discontinue IVF - CBC daily - FOBT pending CHF - Echo 03/2017: EF 26% - Cardiology consulted (Frantz) HLD - Lipitor 40 mg PO QHS Hypokalemia - Repleted - Monitor BMP IVF: not indicated Diet: heart healthy GI ppx: Protonix 40 mg IV daily VTE ppx: Lovenox 40 mg SC daily Code status: full code Case discussed with attending, Dr. Yao. <Sandra Yao - Last Filed: 12/26/17 15:57> Objective - Vital Signs/Intake and Output Vital Signs (last 24 hours): Temp Pulse Resp BP Pulse Ox 98.6 F 60 29 H 129/71 98 12/26/17 04:00 12/26/17 14:20 12/26/17 14:15 12/26/17 14:15 12/26/17 14:20 Intake and Output: 12/26/17 12/26/17 06:59 18:59 Intake Total 1234 250 Output Total 1100 Balance 134 250 - Medications Medications: Current Medications Acetaminophen (Tylenol 325mg Tab) 650 mg PO Q6H PRN PRN Reason: Fever >100.4 F Acetylcysteine (Acetylcysteine 20%) 4 ml IH [id number] [facility] Last Admin: 12/26/17 14:40 Dose: 4 ml Albuterol Sulfate (Albuterol 0.083% Inhal Ronda (2.5 Mg/3 Ml) Ud) 2.5 mg IH [id number] [facility] Last Admin: 12/26/17 14:40 Dose: 2.5 mg Albuterol/Ipratropium (Duoneb 3 Mg/0.5 Mg (3 Ml) Ud) 3 ml IH Q2H PRN PRN Reason: Shortness of Breath Aspirin (Ecotrin) 81 mg PO DAILY [facility] Last Admin: 12/26/17 09:50 Dose: 81 mg Atorvastatin Calcium (Lipitor) 40 mg PO HS [facility] Last Admin: 12/25/17 22:05 Dose: 40 mg Budesonide (Pulmicort Respules) 0.5 mg IH [id number] [facility] Last Admin: 12/25/17 19:36 Dose: 0.5 mg Enoxaparin Sodium (Lovenox) 40 mg SC DAILY [facility]; Protocol Last Admin: 12/26/17 09:51 Dose: 40 mg Guaifenesin/Dextromethorphan (Robitussin Dm) 5 ml PO Q6 [facility] Last Admin: 12/26/17 11:54 Dose: 5 ml Levofloxacin/Dextrose (Levaquin 750mg) 750 mg in 150 mls @ 100 mls/hr IVPB DAILY [facility]; Protocol Stop: 01/01/18 11:47 Last Admin: 12/26/17 09:50 Dose: 100 mls/hr Meropenem (Merrem Iv 1 Gm Premix) 1 gm in 50 mls @ 12.5 mls/hr IVPB Q8 [facility]; Protocol Stop: 01/01/18 14:01 Last Admin: 12/26/17 14:49 Dose: 12.5 mls/hr Dobutamine HCl/Dextrose (Dobutamine/Dextrose 5% 500mg/250ml) 500 mg in 250 mls @ 9.525 mls/hr IV .Q24H PRN; Protocol PRN Reason: TITRATE PER PROTOCOL Last Admin: 12/26/17 10:27 Dose: 5 mcg/kg/min, 9.525 mls/hr Potassium Phosphate 15 mmole/ (Sodium Chloride) 255 mls @ 42.5 mls/hr IVPB ONCE ONE Stop: 12/26/17 16:43 Last Admin: 12/26/17 11:52 Dose: 42.5 mls/hr Pantoprazole Sodium (Protonix Inj) 40 mg IVP DAILY [facility] Last Admin: 12/26/17 09:50 Dose: 40 mg - Labs Labs: 12/26/17 05:00 12/26/17 05:00 PT 15.0 SECONDS (9.4-12.5) H 12/22/17 19:20 INR 1.31 12/22/17 19:20 APTT 30.2 Seconds (25.1-36.5) 12/22/17 19:20 Attending/Attestation - Attestation I have personally seen and examined this patient.: Yes I have fully participated in the care of the patient.: Yes I have reviewed all pertinent clinical information, including history, physical exam and plan: Yes Notes (Text): 12/26/17 15:53 Attending note/ covering DR. Nicholson. Patient seen and examined with resident in ICU. Patient is alert and awake. On restraints. Patient has baseline dementia. Oriented to person only. Tolerating diet with assistance. not in any acute distress. Patient is a 77 -year-old male with PMHx of R lower lobe pneumonia, alzheimers dementia, CHF, CAD, HLD, MDS, prostate cancer admitted for healthcare associated pneumonia . Currently on IV levofloxacin, vancomycin and meropenem. Patient is more alert and awake today. Afebrile and nontoxic. Lactic acidosis is resolving. ID evaluation appreciated. Continue DuoNeb treatment and oxygen when necessary. Non-ST elevation AK; cardiology evaluation appreciated. Continue aspirin and dobutamine. Pancytopenia; chronic and stable. Alzheimer's dementia; continue restraints for patient's safety. Nursing staff informed to DC and monitor. GI and DVT prophylaxis. 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 Transfer to telemetry.
--- NOTE | 2017-12-26 12:37 | CP.PCM.PN ---
Subjective - Date & Time of Evaluation Date of Evaluation: 12/26/17 Time of Evaluation: 10:00 - Subjective Subjective: No fevers, still feels weak but is coughing a little less, no diarrhea. Objective - Vital Signs/Intake and Output Vital Signs (last 24 hours): Temp Pulse Resp BP Pulse Ox 98.6 F 63 33 H 123/73 100 12/26/17 04:00 12/26/17 07:15 12/26/17 07:15 12/26/17 07:15 12/26/17 07:15 Intake and Output: 12/26/17 12/26/17 06:59 18:59 Intake Total 1234 Output Total 1100 Balance 134 - Medications Medications: Current Medications Acetaminophen (Tylenol 325mg Tab) 650 mg PO Q6H PRN PRN Reason: Fever >100.4 F Acetylcysteine (Acetylcysteine 20%) 4 ml IH [id number] [facility] Last Admin: 12/26/17 02:15 Dose: 4 ml Albuterol Sulfate (Albuterol 0.083% Inhal Ronda (2.5 Mg/3 Ml) Ud) 2.5 mg IH [id number] [facility] Last Admin: 12/26/17 02:14 Dose: 2.5 mg Albuterol/Ipratropium (Duoneb 3 Mg/0.5 Mg (3 Ml) Ud) 3 ml IH Q2H PRN PRN Reason: Shortness of Breath Aspirin (Ecotrin) 81 mg PO DAILY [facility] Last Admin: 12/25/17 09:48 Dose: 81 mg Atorvastatin Calcium (Lipitor) 40 mg PO HS [facility] Last Admin: 12/25/17 22:05 Dose: 40 mg Budesonide (Pulmicort Respules) 0.5 mg IH [id number] [facility] Last Admin: 12/25/17 19:36 Dose: 0.5 mg Enoxaparin Sodium (Lovenox) 40 mg SC DAILY [facility]; Protocol Last Admin: 12/25/17 09:46 Dose: 40 mg Guaifenesin/Dextromethorphan (Robitussin Dm) 5 ml PO Q6 [facility] Last Admin: 12/26/17 05:43 Dose: 5 ml Sodium Chloride (Sodium Chloride 0.9%) 1,000 mls @ 75 mls/hr IV .[id number] [facility] Last Admin: 12/25/17 05:25 Dose: 75 mls/hr Levofloxacin/Dextrose (Levaquin 750mg) 750 mg in 150 mls @ 100 mls/hr IVPB DAILY [facility]; Protocol Stop: 01/01/18 11:47 Last Admin: 12/25/17 09:50 Dose: 100 mls/hr Meropenem (Merrem Iv 1 Gm Premix) 1 gm in 50 mls @ 12.5 mls/hr IVPB Q8 [facility]; Protocol Stop: 01/01/18 14:01 Last Admin: 12/26/17 05:42 Dose: 12.5 mls/hr Dobutamine HCl/Dextrose (Dobutamine/Dextrose 5% 500mg/250ml) 500 mg in 250 mls @ 9.525 mls/hr IV .Q24H PRN; Protocol PRN Reason: TITRATE PER PROTOCOL Last Admin: 12/25/17 07:45 Dose: 5 mcg/kg/min, 9.525 mls/hr Pantoprazole Sodium (Protonix Inj) 40 mg IVP DAILY [facility] Last Admin: 12/25/17 10:00 Dose: 40 mg - Labs Labs: 12/26/17 05:00 12/26/17 05:00 PT 15.0 SECONDS (9.4-12.5) H 12/22/17 19:20 INR 1.31 12/22/17 19:20 APTT 30.2 Seconds (25.1-36.5) 12/22/17 19:20 - Constitutional Appears: No Acute Distress, Chronically Ill - Head Exam Head Exam: NORMAL INSPECTION - Neck Exam Neck Exam: absent: Meningismus - Respiratory Exam Respiratory Exam: Decreased Breath Sounds - Cardiovascular Exam Cardiovascular Exam: +S1, +S2 - GI/Abdominal Exam GI & Abdominal Exam: Soft. absent: Tenderness Assessment and Plan - Assessment and Plan (Free Text) Plan: Assessment severe sepsis due to multifocal lower lobe pneumonia with possible gram positive cocci and/or gram negative bacilli and or atypical organisms, slowly improving history of right sided HCAP history of C. 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 coli bacteremia and sepsis probably biliary tree in origin History of Klebsiella UTI Plan continue Merrem and Levaquin day 4 to complete 4-7 days of therapy; cultures and MRSA nares are negative and we have discontinued Vancomycin - sputum cx showing yeast which is a colonizer will continue to monitor clinically overall prognosis is poor
[2017-12-26] MEDS: Budesonide 0.5 mg/2 ml Inhal Susp UD IH SCH (20:17)
[2017-12-27] MEDS: guaiFENesin DM 100 mg-10 mg/5 ml UD PO SCH ×5 (00:32→23:39)
[2017-12-27] MEDS: Acetylcysteine 20% Inhal Soln (4ml) IH SCH ×4 (01:08→20:07)
[2017-12-27] MEDS: Albuterol 0.083% Inhal Sol (2.5 mg/3 mL) UD IH SCH ×4 (01:08→20:07)
[2017-12-27] MEDS: Meropenem IV 1 gm in NS 1 GM/50 ML BAG IVPB SCH ×3 (05:42→21:04)
[2017-12-27 07:08] LABS: BASO # 0.01 K/mm3 (0.0-2.0); BASO % 0.3 % (0.0-3.0); EOS # 0.4 (0.0-0.7); EOS % 9.8 % (1.5-5.0); GRAN # 2.87 (1.4-6.5); GRAN % 72.1 % (50.0-68.0); HEMOGLOBIN 11.3 g/dL (14.0-18.0); LYMPH # 0.3 (1.2-3.4); LYMPH % 6.5 % (22.0-35.0); MEAN CELL VOLUME 88.4 fl (80.0-105.0); MEAN CORPUSCULAR HEMOGLOBIN 29.7 pg (25.0-35.0); MEAN CORPUSCULAR HGB CONC 33.6 g/dl (31.0-37.0); MEAN PLATELET VOLUME 9.6 fl (7.0-11.0); MONO # 0.5 (0.1-0.6); MONO % 11.3 % (1.0-6.0); RBC 3.8 10^6/uL (3.5-6.1)
[2017-12-27 07:47] LABS: ALB/GLOB RATIO 1.4 (1.1-1.8); ALBUMIN 2.7 g/dL (3.0-4.8); ALT/SGPT 32 U/L (7-56); AST/SGOT 24 U/L (17-59); BLOOD UREA NITROGEN 3 mg/dL (7-21); CALCIUM 8.8 mg/dL (8.4-10.5); GFR NON-AFRICAN AMERICAN > 60
--- NOTE | 2017-12-27 08:13 | PN ---
DATE: 12/27/2017 PULMONARY NOTE SUBJECTIVE: The patient appears comfortable this morning. He is not short of breath at rest. He is awake and alert. PHYSICAL EXAMINATION: VITAL SIGNS: (Last noted in the computer): Temperature is 98.2, pulse 64, respirations 19, blood pressure 128/79. Oxygen saturation on nasal cannula is 99%. HEENT: Normocephalic, atraumatic. No JVD. CARDIOVASCULAR: Positive S1, S2. No S3 gallop. LUNGS: Decreased breath sounds at the bases. Minimal/less rhonchi. No wheezing. EXTREMITIES: Mild edema. No cyanosis, no clubbing. Calves are nontender to palpation. GASTROINTESTINAL: Abdomen is soft, nontender, and nondistended. Bowel sounds are positive. SKIN: No acute rash. NEUROLOGIC: Limited at the present time. PERTINENT LABORATORY DATA: Chest x-ray was repeated yesterday and reviewed. There is mild pulmonary vascular congestion noted. However, the right lower lobe infiltrate is much improved/decreased from the previous films. IMPRESSION: 1. Bilateral pneumonia - probable aspiration. 2. Acute bronchospasm. 3. Possible urinary tract infection. 4. Dcr-NJ-rkjygglig myocardial infarction. 5. Advanced dementia. PLAN: The patient appears comfortable this morning. He is not short of breath at rest. He is awake and alert. He does state to feeling better overall. On physical exam, there is certainly less bronchospasm noted. In addition, the alveolar-arterial gradient is also significantly less. I will continue with the current nebulizer treatments and aggressive pulmonary toilet for now. I did review the chest x-ray as above. The right lower lobe infiltrate is now resolving. I would continue with the antibiotic coverage as per Infectious Disease. Temperatures have resolved. There is no leukocytosis. Input by Cardiology is also noted. The patient remains on a dobutamine drip. Clinical status of the patient is significantly improved - compared to the initial presentation. However, again, the future/overall status/prognosis for this patient does remain poor. All are aware. Medardo Whittaker MD [facility]
[2017-12-27] MEDS: Budesonide 0.5 mg/2 ml Inhal Susp UD IH SCH ×2 (08:18→20:08)
[2017-12-27] MEDS: levoFLOXacin 750 mg in D5W 750 MG/150 ML BAG IVPB SCH (11:23)
[2017-12-27] MEDS: Enoxaparin 40 mg Syringe SC SCH (11:23)
--- NOTE | 2017-12-27 16:01 | PN ---
DATE: 12/27/2017 CARDIOLOGY FOLLOWUP SUBJECTIVE: The patient is in bed, lethargic, but without dyspnea. PHYSICAL EXAMINATION: VITAL SIGNS: Blood pressure is 128/80, the heart rate is in the 60s. NECK: Negative JVD. LUNGS: Decreased breath sounds bilaterally. HEART: Reveals S1, S2. EXTREMITIES: Without edema. LABORATORY DATA: Hemoglobin is 7.3. Chemistries: BUN and creatinine are unremarkable. Glucose is 136. IMPRESSION: 1. Pneumonia. 2. Lethargy. 3. Anemia. 4. Status post [id number] myocardial infarction. 5. Coronary artery disease. PLAN: Given these findings, we will continue on his present medications. We will discontinue dobutamine. We will order an echocardiogram to reevaluate his LV. Janusz Landry MD
--- NOTE | 2017-12-27 16:04 | CP.PCM.PN ---
Subjective - Date & Time of Evaluation Date of Evaluation: 12/27/17 Time of Evaluation: 09:45 - Subjective Subjective: No fevers, no cough currently, eats when he is fed, no nausea or vomiting, no diarrhea. Objective - Vital Signs/Intake and Output Vital Signs (last 24 hours): Temp Pulse Resp BP Pulse Ox 98.4 F 64 19 93/57 L 99 12/27/17 12:00 12/27/17 12:00 12/27/17 12:00 12/27/17 12:00 12/26/17 20:50 Intake and Output: 12/27/17 12/27/17 06:59 18:59 Output Total 1900 Balance -1900 - Medications Medications: Current Medications Acetaminophen (Tylenol 325mg Tab) 650 mg PO Q6H PRN PRN Reason: Fever >100.4 F Acetylcysteine (Acetylcysteine 20%) 4 ml IH [id number] [facility] Last Admin: 12/27/17 15:12 Dose: 4 ml Albuterol Sulfate (Albuterol 0.083% Inhal Ronda (2.5 Mg/3 Ml) Ud) 2.5 mg IH [id number] [facility] Last Admin: 12/27/17 15:12 Dose: 2.5 mg Albuterol/Ipratropium (Duoneb 3 Mg/0.5 Mg (3 Ml) Ud) 3 ml IH Q2H PRN PRN Reason: Shortness of Breath Aspirin (Ecotrin) 81 mg PO DAILY [facility] Last Admin: 12/27/17 11:23 Dose: 81 mg Atorvastatin Calcium (Lipitor) 40 mg PO HS [facility] Last Admin: 12/26/17 23:45 Dose: 40 mg Budesonide (Pulmicort Respules) 0.5 mg IH [id number] [facility] Last Admin: 12/27/17 08:18 Dose: 0.5 mg Enoxaparin Sodium (Lovenox) 40 mg SC DAILY [facility]; Protocol Last Admin: 12/27/17 11:23 Dose: 40 mg Guaifenesin/Dextromethorphan (Robitussin Dm) 5 ml PO Q6 [facility] Last Admin: 12/27/17 11:24 Dose: 5 ml Levofloxacin/Dextrose (Levaquin 750mg) 750 mg in 150 mls @ 100 mls/hr IVPB DAILY [facility]; Protocol Stop: 01/01/18 11:47 Last Admin: 12/27/17 11:23 Dose: 100 mls/hr Meropenem (Merrem Iv 1 Gm Premix) 1 gm in 50 mls @ 12.5 mls/hr IVPB Q8 [facility]; Protocol Stop: 01/01/18 14:01 Last Admin: 12/27/17 13:29 Dose: 12.5 mls/hr Pantoprazole Sodium (Protonix Ec Tab) 40 mg PO ACB [facility]OLANDA - Labs Labs: 12/27/17 06:30 12/27/17 06:30 PT 15.0 SECONDS (9.4-12.5) H 12/22/17 19:20 INR 1.31 12/22/17 19:20 APTT 30.2 Seconds (25.1-36.5) 12/22/17 19:20 - Constitutional Appears: Chronically Ill - Head Exam Head Exam: NORMAL INSPECTION - ENT Exam ENT Exam: Mucous Membranes Moist - Respiratory Exam Respiratory Exam: Decreased Breath Sounds - Cardiovascular Exam Cardiovascular Exam: +S1, +S2 - GI/Abdominal Exam GI & Abdominal Exam: Soft. absent: Tenderness Assessment and Plan - Assessment and Plan (Free Text) Plan: Assessment severe sepsis due to multifocal lower lobe pneumonia with possible gram positive cocci and/or gram negative bacilli and or atypical organisms, slowly improving history of right sided HCAP history of C. 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 coli bacteremia and sepsis probably biliary tree in origin History of Klebsiella UTI Plan continue Merrem and Levaquin day 5 to complete 4-7 days of therapy; cultures and MRSA nares are negative and we have discontinued Vancomycin - sputum cx showing yeast which is a colonizer will continue to monitor clinically overall prognosis is poor
--- NOTE | 2017-12-27 18:28 | CP.PCM.PN ---
<Sharad Valencia - Last Filed: 12/27/17 20:09> Subjective - Date & Time of Evaluation Date of Evaluation: 12/27/17 Time of Evaluation: 07:00 - Subjective Subjective: Sharad Valencia DO PGY1 Internal Medicine Audio/Visual Operator - Hospital Progress Note Patient was seen and examined this morning at bedside Patient was resting in bed comfortably eating yogurt. No c/o of SOB or Cough endorsed by patient Remainder of 12 system ROS was otherwise negative. Objective - Vital Signs/Intake and Output Vital Signs (last 24 hours): Temp Pulse Resp BP Pulse Ox 97.8 F 54 L 18 101/54 L 99 12/27/17 18:00 12/27/17 18:00 12/27/17 18:00 12/27/17 18:00 12/26/17 20:50 Intake and Output: 12/27/17 12/27/17 06:59 18:59 Output Total 1900 Balance -1900 - Medications Medications: Current Medications Acetaminophen (Tylenol 325mg Tab) 650 mg PO Q6H PRN PRN Reason: Fever >100.4 F Acetylcysteine (Acetylcysteine 20%) 4 ml IH [id number] [facility] Last Admin: 12/27/17 15:12 Dose: 4 ml Albuterol Sulfate (Albuterol 0.083% Inhal Ronda (2.5 Mg/3 Ml) Ud) 2.5 mg IH [id number] [facility] Last Admin: 12/27/17 15:12 Dose: 2.5 mg Albuterol/Ipratropium (Duoneb 3 Mg/0.5 Mg (3 Ml) Ud) 3 ml IH Q2H PRN PRN Reason: Shortness of Breath Aspirin (Ecotrin) 81 mg PO DAILY [facility] Last Admin: 12/27/17 11:23 Dose: 81 mg Atorvastatin Calcium (Lipitor) 40 mg PO HS [facility] Last Admin: 12/26/17 23:45 Dose: 40 mg Budesonide (Pulmicort Respules) 0.5 mg IH [id number] [facility] Last Admin: 12/27/17 08:18 Dose: 0.5 mg Enoxaparin Sodium (Lovenox) 40 mg SC DAILY [facility]; Protocol Last Admin: 12/27/17 11:23 Dose: 40 mg Guaifenesin/Dextromethorphan (Robitussin Dm) 5 ml PO Q6 [facility] Last Admin: 12/27/17 17:36 Dose: 5 ml Levofloxacin/Dextrose (Levaquin 750mg) 750 mg in 150 mls @ 100 mls/hr IVPB DAILY [facility]; Protocol Stop: 01/01/18 11:47 Last Admin: 12/27/17 11:23 Dose: 100 mls/hr Meropenem (Merrem Iv 1 Gm Premix) 1 gm in 50 mls @ 12.5 mls/hr IVPB Q8 [facility]; Protocol Stop: 01/01/18 14:01 Last Admin: 12/27/17 13:29 Dose: 12.5 mls/hr Pantoprazole Sodium (Protonix Ec Tab) 40 mg PO ACB [facility] - Labs Labs: 12/27/17 06:30 12/27/17 06:30 PT 15.0 SECONDS (9.4-12.5) H 12/22/17 19:20 INR 1.31 12/22/17 19:20 APTT 30.2 Seconds (25.1-36.5) 12/22/17 19:20 - Constitutional Appears: Well, Non-toxic, No Acute Distress - Head Exam Head Exam: ATRAUMATIC - Eye Exam Eye Exam: EOMI, PERRL - ENT Exam ENT Exam: Mucous Membranes Moist - Respiratory Exam Respiratory Exam: Decreased Breath Sounds (Bibasilar), NORMAL BREATHING PATTERN. absent: Respiratory Distress - Cardiovascular Exam Cardiovascular Exam: REGULAR RHYTHM, RRR, +S1, +S2 - GI/Abdominal Exam GI & Abdominal Exam: Soft, Normal Bowel Sounds. absent: Tenderness - Extremities Exam Extremities Exam: absent: Pedal Edema, Tenderness - Neurological Exam Neurological Exam: Alert, Awake, CN II-XII Intact - Psychiatric Exam Psychiatric exam: Normal Affect, Normal Mood - Skin Skin Exam: Dry, Intact, Normal Color, Warm Assessment and Plan - Assessment and Plan (Free Text) Assessment: 77M w/ a PMH of alzheimers dementia, CHF, CAD, HLD, MDS, prostate cancer [place] [facility] [place] w/ for SOB/ Cough Congestion admitted to ICU for sepsis 2/2 BL PNA. Stabilized and transferred out of ICU on 12/26. Initially required Bipap however has been tolerating well on O2 NC. Plan: Sepsis w/ BL PNA - HCAP CT Chest - BL Consolidations; no PE Afebrile overnight No respiratory complaitns WBC count has been stable Sputum Cx - growing yeast (colonizer_ Flu + Legionella Ag Negative C/w Dunoebs Q6H [facility] and Q2H PRN Pulmicort Q12 NAC Q4H [facility] Robitussin Q6H C/w Merem + Levaquin Day 6 (4-7 day total therapy) ID Following appreciate reccs NSTEMI Trop 0.13, 0.09, 0.10 ASA 81 mg PO daily DC Dobutamine drip ECHOcardiogram Cardiology consulted (Frantz)- no cath at this time Pancytopenia Most likely 2/2 MDS CHF: Metoprolol as above EF 26% 03/2017 HLD: Lipitor 40 IVF: not indicated Diet: heart healthy GI ppx: Protonix 40 mg IV daily VTE ppx: Lovenox 40 mg SC daily Code status: full code Patient was seen, and examined at bedside w/ attending physician Dr. Yaneth Valencia DO PGY1 Internal Medicine Audio/Visual Operator - ICU Progress Note <Yaneth Valencia R - Last Filed: 12/28/17 16:48> Objective - Vital Signs/Intake and Output Vital Signs (last 24 hours): Temp Pulse Resp BP Pulse Ox 98.2 F 60 18 102/69 96 12/28/17 12:00 12/28/17 12:00 12/28/17 12:00 12/28/17 12:00 12/28/17 05:29 Intake and Output: 12/28/17 12/28/17 06:59 18:59 Intake Total 367 Output Total 2200 Balance -1833 - Labs Labs: 12/28/17 06:30 12/28/17 06:30 PT 15.0 SECONDS (9.4-12.5) H 12/22/17 19:20 INR 1.31 12/22/17 19:20 APTT 30.2 Seconds (25.1-36.5) 12/22/17 19:20 Attending/Attestation - Attestation I have personally seen and examined this patient.: Yes I have fully participated in the care of the patient.: Yes I have reviewed all pertinent clinical information, including history, physical exam and plan: Yes Notes (Text): Attending note covering Dr. Nicholson. Patient seen and examined by me with resident at 11:20AM on 12/27/17 with resident. Case including discharge plan discussed with resident. Agree with above with following additions/corrections. Patient is a 77 year old male with past medical history significant for right lower lobe pneumonia, c.albicans fungemia, tremors dementia, CHF, coronary artery disease, MDS, hemolytic anemia, lipidemia, and prostate cancer presented to the emergency room with fever. Patient is awake and alert, oriented to self only. Unsure if review of systems are accurate as patient with confusion/dementia. Patient is denying any chest pain or shortness of breath. No headaches or dizziness. No fevers or chills. No nausea, vomiting, or abdominal pain. No dysuria. No new issues over night per nurse. Patient afebrile. Physical exam: Gen: Awake and alert sitting up in bed in no acute distress HEENT: Normocephalic, atraumatic. Extraocular muscles intact, pupils equal reactive. No scleral icterus. Oropharynx is pink and moist. Neck is supple. Cardiovascular: Normal rhythm. Normal S1, S2. No murmurs, rubs, or gallops appreciated Pulmonary: Normal respiratory effort. decreased breath sounds. No rhonchi, rales, or wheezing appreciated. Gastrointestinal: Soft, nontender. Nondistended. Positive bowel sounds all 4 quadrants, no guarding. Musculoskeletal: moves all extremities. No edema appreciated Central nervous system: Awake and alert. Oriented only to self. Dermatologic: Skin warm and dry. Assessment and plan: Patient is a 77 year old male with past medical history significant for right lower lobe pneumonia, c.albicans fungemia, tremors dementia, CHF, coronary artery disease, MDS, hemolytic anemia, lipidemia, and prostate cancer presented to the emergency room with fever. 1. Sepsis secondary to pneumonia. Chest CT per radiologist showed no evidence of pulmonary embolus, dense consolidation in both lower lobes consistent with pn eumonia. Chest xray 12/26/17 per radiologist showed vascular congestion and perihilar edema unchanged. Patient on Merrem and levaquin. Blood cultures with no growth. Influenza negative. Legiongella negative. Continue nebulizer treatments. ID following, recommendations appreciated 2. NSTEMI. CAD. HIstory of CHF. Cardiology following, recommendations appreciated. 2d echo pending. Patient on dobuatmine drip. Continue ASA and lipitor. 3. Pancytopenia. Improved. Patient with history of MDS. Continue to monitor CBC 4. Hyperlipidemia. Continue lipitor 5. Hypokalemia. Resolved. Continue to monitor. 6. Dementia. no restraints. Patient pleasant today. Continue to monitor. Patient will be followed by Dr. Nicholson starting tomorrow 12/28/17
[2017-12-28] MEDS: Albuterol 0.083% Inhal Sol (2.5 mg/3 mL) UD IH SCH ×4 (01:52→13:44)
[2017-12-28] MEDS: Acetylcysteine 20% Inhal Soln (4ml) IH SCH ×4 (01:53→13:44)
[2017-12-28] MEDS: Meropenem IV 1 gm in NS 1 GM/50 ML BAG IVPB SCH ×2 (05:03→13:20)
[2017-12-28] MEDS: guaiFENesin DM 100 mg-10 mg/5 ml UD PO SCH ×2 (05:03→12:49)
[2017-12-28 05:29] VITALS: RESP 18; O2SAT 96
[2017-12-28 07:23] LABS: BASO # 0.01 K/mm3 (0.0-2.0); BASO % 0.2 % (0.0-3.0); EOS # 0.4 (0.0-0.7); EOS % 9.8 % (1.5-5.0); GRAN # 3.07 (1.4-6.5); GRAN % 69.8 % (50.0-68.0); HEMOGLOBIN 12.6 g/dL (14.0-18.0); LYMPH # 0.3 (1.2-3.4); LYMPH % 7.7 % (22.0-35.0); MEAN CELL VOLUME 88.5 fl (80.0-105.0); MEAN CORPUSCULAR HEMOGLOBIN 29.6 pg (25.0-35.0); MEAN CORPUSCULAR HGB CONC 33.4 g/dl (31.0-37.0); MEAN PLATELET VOLUME 9.7 fl (7.0-11.0); MONO # 0.6 (0.1-0.6); MONO % 12.5 % (1.0-6.0); RBC 4.26 10^6/uL (3.5-6.1); WHITE BLOOD COUNT 4.4 10^3/ul (4.5-11.0)
[2017-12-28] MEDS ORDERED: Pantoprazole 40 mg EC Tab PO SCH (07:30)
[2017-12-28 07:51] LABS: ALB/GLOB RATIO 1.4 (1.1-1.8); ALBUMIN 3.3 g/dL (3.0-4.8); ALT/SGPT 34 U/L (7-56); AST/SGOT 25 U/L (17-59); BLOOD UREA NITROGEN 5 mg/dL (7-21); CALCIUM 9.5 mg/dL (8.4-10.5); GFR NON-AFRICAN AMERICAN > 60
[2017-12-28] MEDS: Budesonide 0.5 mg/2 ml Inhal Susp UD IH SCH ×2 (08:02→11:18)
--- NOTE | 2017-12-28 08:21 | PN ---
DATE: 12/28/2017 PULMONARY NOTE SUBJECTIVE: The patient appears comfortable this morning. He is not short of breath at rest. PHYSICAL EXAMINATION: VITAL SIGNS: Temperature is 98.5, pulse 58, respirations 18, blood pressure 92/58. Oxygen saturation on nasal cannula is 96%. HEENT: Normocephalic, atraumatic. No JVD. CARDIOVASCULAR: Positive S1, S2. No S3 gallop. LUNGS: Decreased breath sounds at the bases. Much less/minimal rhonchi. No wheezing. EXTREMITIES: Mild edema. No cyanosis. No clubbing. Calves are nontender to palpation. GI: Abdomen is soft, nontender and nondistended. Bowel sounds are positive. SKIN: No acute rash. NEUROLOGIC: Limited at the present time. IMPRESSION: 1. Bilateral pneumonia - probable aspiration. 2. Acute bronchospasm. 3. Possible urinary tract infection. 4. Brd-SG-eqtfnoilf myocardial infarction. 5. Advanced dementia. PLAN: The patient appears comfortable this morning. He is not short of breath at rest. He is awake and alert. He does state to feeling better overall. On physical exam, his bronchospasm is much less. In addition, the alveolar-arterial gradient is also much less. I will continue with the current nebulizer treatments and aggressive pulmonary toilet. The patient remains on antibiotic therapy - as per Infectious Disease. Temperatures have resolved. There is no leukocytosis. Inputs by Infectious Disease and Internal Medicine are also noted. Repeat a.m. labs are pending. Clinical status of the patient is significantly improved - compared to the initial presentation. However, again, the overall status/prognosis for this patient remains poor. All are aware. I will discuss the above with Dr. Nicholson. Medardo Whittaker MD [facility]
[2017-12-28] MEDS: levoFLOXacin 750 mg in D5W 750 MG/150 ML BAG IVPB SCH (10:50)
[2017-12-28] MEDS: Enoxaparin 40 mg Syringe SC SCH (10:50)
--- NOTE | 2017-12-28 10:58 | PN ---
DATE: 12/28/2017 SUBJECTIVE: I saw him getting ready to go down for a 2-D echo. Nurses are in the room. He is alert, he is looking at me. He is talking. He is doing well. He is eating some. He is smiling. He is in no acute distress at this time, on multiple medications. PHYSICAL EXAMINATION: VITAL SIGNS: He has 98.5 temperature, 58 pulse, 92/58 blood pressure, 18 respiratory rate, 96% O2 sat on 4 liters. HEAD: Atraumatic, normocephalic. GENERAL: He is and alert. He is looking at me. He is talking, little slow to respond, but he is doing it. HEART: Regular rate. LUNGS: Decreased breath sounds bilaterally, but for the most part fairly clear. ABDOMEN: Soft, nontender, positive bowel sounds. EXTREMITIES: No edema. He is currently on acetylcysteine, albuterol, DuoNeb, Ecotrin, Levaquin IV, Lipitor, Lovenox, Merrem IV, Protonix, Pulmicort, Robitussin and Tylenol. He is now off the dobutamine. LABORATORY DATA: He has a 139 sodium, potassium 4.1, BUN 5, creatinine 0.8, GFR greater than 60, sugar is 109, calcium is 9.5, phosphorous 3.3, magnesium is 2. Total bili is 0.7. AST is 25, ALT is 34, alk phos 60, total protein is 5.6. White count is 4.4, hemoglobin 12.6, hematocrit 37.7, platelets of 161. ASSESSMENT AND PLAN: He is being seen by numerous physicians, Infectious Disease, Cardiology, Pulmonology. Last chest x-ray was on 12/26/2017, vascular congestion, perihilar edema. We will continue with aggressive treatment and care with severe sepsis, multifocal pneumonia, possible aspiration urinary tract infection, Non-ST elevation myocardial infarction and see when I could change him into tablets and discharge him back to [facility] where he is from and hopefully get some physical therapy. Sean Nicholson DO
--- NOTE | 2017-12-28 13:04 | PN ---
DATE: 12/28/2017 CARDIOLOGY FOLLOWUP SUBJECTIVE: The patient is in bed. No dyspnea noted. PHYSICAL EXAMINATION: VITAL SIGNS: Blood pressure is 108/62, the heart rate is in the 50s. NECK: Negative JVD. LUNGS: Without rales. HEART: Reveals S1, S2. EXTREMITIES: Without edema. LABORATORY DATA: Hemoglobin is 12.6. Chemistries: BUN and creatinine are unremarkable. Preliminary echocardiogram reveals preserved LV function with no pulmonary hypertension. IMPRESSION: 1. Bilateral pneumonia. 2. Eft-PI-qtsfvdzxb myocardial infarction. 3. Coronary artery disease. 4. Dementia. 5. Urinary tract infections. PLAN: Given these findings, the patient is hemodynamically doing well. We will continue IV antibiotics. Janusz Landry MD
[2017-12-28 13:10] VITALS: BP 102/69; PULSE 60; TEMP 98.2
--- NOTE | 2017-12-28 16:09 | CP.PCM.PN ---
Subjective - Date & Time of Evaluation Date of Evaluation: 12/28/17 Time of Evaluation: 10:55 - Subjective Subjective: Comfortable, breathing better, no fevers, not in distress. Objective - Vital Signs/Intake and Output Vital Signs (last 24 hours): Temp Pulse Resp BP Pulse Ox 98.5 F 58 L 18 92/58 L 96 12/28/17 05:29 12/28/17 05:42 12/28/17 05:29 12/28/17 05:29 12/28/17 05:29 Intake and Output: 12/28/17 12/28/17 06:59 18:59 Intake Total 367 Output Total 2200 Balance -1833 - Medications Medications: Current Medications Acetaminophen (Tylenol 325mg Tab) 650 mg PO Q6H PRN PRN Reason: Fever >100.4 F Acetylcysteine (Acetylcysteine 20%) 4 ml IH [id number] [facility] Last Admin: 12/28/17 08:01 Dose: Not Given Albuterol Sulfate (Albuterol 0.083% Inhal Ronda (2.5 Mg/3 Ml) Ud) 2.5 mg IH [id number] [facility] Last Admin: 12/28/17 08:01 Dose: Not Given Albuterol/Ipratropium (Duoneb 3 Mg/0.5 Mg (3 Ml) Ud) 3 ml IH Q2H PRN PRN Reason: Shortness of Breath Aspirin (Ecotrin) 81 mg PO DAILY [facility] Last Admin: 12/27/17 11:23 Dose: 81 mg Atorvastatin Calcium (Lipitor) 40 mg PO HS [facility] Last Admin: 12/27/17 21:04 Dose: 40 mg Budesonide (Pulmicort Respules) 0.5 mg IH [id number] [facility] Last Admin: 12/28/17 08:02 Dose: Not Given Enoxaparin Sodium (Lovenox) 40 mg SC DAILY [facility]; Protocol Last Admin: 12/27/17 11:23 Dose: 40 mg Guaifenesin/Dextromethorphan (Robitussin Dm) 5 ml PO Q6 [facility] Last Admin: 12/28/17 05:03 Dose: 5 ml Levofloxacin/Dextrose (Levaquin 750mg) 750 mg in 150 mls @ 100 mls/hr IVPB DAILY [facility]; Protocol Stop: 01/01/18 11:47 Last Admin: 12/27/17 11:23 Dose: 100 mls/hr Meropenem (Merrem Iv 1 Gm Premix) 1 gm in 50 mls @ 12.5 mls/hr IVPB Q8 [facility]; Protocol Stop: 01/01/18 14:01 Last Admin: 12/28/17 05:03 Dose: 12.5 mls/hr Pantoprazole Sodium (Protonix Ec Tab) 40 mg PO ACB [facility] Last Admin: 12/28/17 08:45 Dose: 40 mg - Labs Labs: 12/28/17 06:30 12/28/17 06:30 PT 15.0 SECONDS (9.4-12.5) H 12/22/17 19:20 INR 1.31 12/22/17 19:20 APTT 30.2 Seconds (25.1-36.5) 12/22/17 19:20 - Constitutional Appears: Chronically Ill - Head Exam Head Exam: NORMAL INSPECTION - Neck Exam Neck Exam: absent: Meningismus - Respiratory Exam Respiratory Exam: Decreased Breath Sounds - Cardiovascular Exam Cardiovascular Exam: +S1, +S2 - GI/Abdominal Exam GI & Abdominal Exam: Soft. absent: Tenderness Assessment and Plan - Assessment and Plan (Free Text) Plan: Assessment severe sepsis due to multifocal lower lobe pneumonia with possible gram positive cocci and/or gram negative bacilli and or atypical organisms, clinically improving history of right sided HCAP history of C. 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 coli bacteremia and sepsis probably biliary tree in origin History of Klebsiella UTI Plan continue Levaquin day 6 to complete 7 days of therapy; cultures and MRSA nares are negative and we have discontinued Vancomycin - sputum cx showing yeast which is a colonizer; will d/c Merrem as well overall prognosis is poor
--- NOTE | 2017-12-28 17:44 | CARD ---
APPROVED REPORT Date of service: 12/28/2017 EXAM: Two-dimensional and M-mode echocardiogram with Doppler and color Doppler. INDICATION Dyspnea 2D DIMENSIONS Left Atrium (2D)3.2 (1.6-4.0cm)LVEF (%)50.0 (>50%) Aortic Valve AoV Peak Ugpsapsh045.0cm/Valdo Peak GR.6mmHg Mitral Valve E/A ratio0.0 TDI E/Lateral E'0.0E/Medial E'0.0 Tricuspid Valve TR Peak [id number] Peak Gr.6mmHg [id number] LEFT VENTRICLE The left ventricle is normal size. There is normal left ventricular wall thickness. Left ventricle systolic function is borderline. There is normal LV segmental wall motion. Transmitral Doppler flow pattern is Grade I-abnormal relaxation pattern. RIGHT VENTRICLE The right ventricle is normal size. There is normal right ventricular wall thickness. The right ventricular systolic function is normal. ATRIA The left atrium size is normal. The right atrium size is normal. AORTIC VALVE The aortic valve is not well visualized. No aortic regurgitation is present. There is no aortic valvular stenosis. MITRAL VALVE The mitral valve is not well visualized. There is no mitral valve regurgitation noted. There is no mitral valve stenosis. TRICUSPID VALVE The tricuspid valve is normal in structure. There is no tricuspid valve regurgitation noted. GREAT VESSELS The aortic root is normal in size. The IVC was not visualized. <Conclusion> The left ventricle is normal size. There is normal left ventricular wall thickness. Left ventricle systolic function is borderline. There is normal LV segmental wall motion. Transmitral Doppler flow pattern is Grade I-abnormal relaxation pattern.
[2017-12-29] MEDS ORDERED: levoFLOXacin 750 MG TAB PO SCH (10:00)
== END 2017-12-28 16:28 | DRG 871 ==
LOC: ED 18:11 → ERH 21:07 → CCU 23:55 → 2RNO 12-26 21:12
PROVIDERS: ADMIT Internal Medicine; ATTEND Family Medicine
DX: A41.9 Sepsis, unspecified organism (principal); I21.4 Non-ST elevation (NSTEMI) myocardial infarction; J69.0 Pneumonitis due to inhalation of food and vomit; E87.2 Acidosis; N39.0 Urinary tract infection, site not specified; D58.9 Hereditary hemolytic anemia, unspecified; D61.818 Other pancytopenia; I50.22 Chronic systolic (congestive) heart failure; J44.1 Chronic obstructive pulmonary disease with (acute) exacerbation; I11.0 Hypertensive heart disease with heart failure; R65.20 Severe sepsis without septic shock; G30.9 Alzheimer's disease, unspecified; F02.80 Dementia in other diseases classified elsewhere, unspecified severity, without behavioral disturbance, psychotic disturbance, mood disturbance, and anxiety; I25.10 Atherosclerotic heart disease of native coronary artery without angina pectoris; E11.51 Type 2 diabetes mellitus with diabetic peripheral angiopathy without gangrene; E03.9 Hypothyroidism, unspecified; E87.5 Hyperkalemia; E87.6 Hypokalemia; E78.5 Hyperlipidemia, unspecified; F32.9 Major depressive disorder, single episode, unspecified; L30.9 Dermatitis, unspecified; Z79.82 Long term (current) use of aspirin; Z85.46 Personal history of malignant neoplasm of prostate; Z92.21 Personal history of antineoplastic chemotherapy; Z87.891 Personal history of nicotine dependence; Z95.1 Presence of aortocoronary bypass graft; Z95.5 Presence of coronary angioplasty implant and graft; Z85.820 Personal history of malignant melanoma of skin; Z99.81 Dependence on supplemental oxygen; Z78.1 Physical restraint status

== ENCOUNTER 2018-04-11 11:15 | Inpatient (IN) | payer MEDICARE, MEDICAID ==
[2018-04-11 11:25] VITALS: BMI 21.5
[2018-04-11] MEDS ORDERED: Albuterol-Ipratrop 3 mg / 0.5 (3 ml) UD IH STA ×3 (11:32→12:10)
[2018-04-11 11:57] LABS: VENOUS BLOOD GAS BASE EXCESS 1.5 mmol/L (0.0-2.0); VENOUS BLOOD GAS PO2 39 mm/Hg (30-55); VENOUS BLOOD PH 7.36 (7.32-7.43)
[2018-04-11 12:06] LABS: GRAN # 4.34 (1.4-6.5); GRAN % 86.2 % (50.0-68.0); HEMOGLOBIN 13.8 g/dL (14.0-18.0); LYMPH # 0.3 (1.2-3.4); LYMPH % 5.6 % (22.0-35.0); MEAN CELL VOLUME 93.1 fl (80.0-105.0); MEAN CORPUSCULAR HEMOGLOBIN 30.7 pg (25.0-35.0); MEAN CORPUSCULAR HGB CONC 32.9 g/dl (31.0-37.0); MEAN PLATELET VOLUME 10.1 fl (7.0-11.0); MONO # 0.4 (0.1-0.6); MONO % 8.2 % (1.0-6.0); RBC 4.5 10^6/uL (3.5-6.1); RED CELL DISTRIBUTION WIDTH 14.6 % (11.5-14.5)
[2018-04-11 12:08] LABS: ALB/GLOB RATIO 1.4 (1.1-1.8); ALBUMIN 3.9 g/dL (3.0-4.8); ALT/SGPT 45 U/L (7-56); AST/SGOT 57 U/L (17-59); BLOOD UREA NITROGEN 25 mg/dL (7-21); CALCIUM 9.6 mg/dL (8.4-10.5); GFR NON-AFRICAN AMERICAN > 60
[2018-04-11 12:24] LABS: B-TYPE NATRIURETIC PEPTIDE 467 pg/mL (0-450)
--- NOTE | 2018-04-11 12:38 | RAD ---
Date of service: 04/11/2018 HISTORY: cough r/o infiltrate COMPARISON: 12/26/2017 FINDINGS: LUNGS: Bibasilar perihilar infiltrates are seen. PLEURA: No significant pleural effusion identified, no pneumothorax apparent. CARDIOVASCULAR: No aortic atherosclerotic calcification present. Normal cardiac size. No pulmonary vascular congestion. OSSEOUS STRUCTURES: No significant abnormalities. VISUALIZED UPPER ABDOMEN: Normal. OTHER FINDINGS: None. IMPRESSION: Bibasilar perihilar infiltrates.
[2018-04-11 12:42] LABS: ARTERIAL BLOOD GAS HCO3 21.5 mmol/L (21-28); ARTERIAL BLOOD GAS O2 SAT 94.4 % (95-98); ARTERIAL BLOOD GAS PCO2 39 mm/Hg (35-45); ARTERIAL BLOOD GAS PH 7.35 (7.35-7.45); ARTERIAL BLOOD GAS TCO2 22.7 mmol.L (22-28)
[2018-04-11] MEDS ORDERED: levoFLOXacin 750 mg in D5W 750 MG/150 ML BAG IVPB STA (13:01)
[2018-04-11] MEDS ORDERED: Aztreonam 1 Gm in NS 100mL 100 ML IVPB STA (13:01)
[2018-04-11] MEDS ORDERED: Oseltamivir 6 MG/ML PO STA (13:01)
[2018-04-11] MEDS ORDERED: Vancomycin 1gm in NS 250ml 1 GM/250 ML BAG IVPB STA (13:01)
[2018-04-11 13:22] LABS: INR 1.19; PARTIAL THROMBOPLASTIN TIME 33.3 Seconds (25.1-36.5); PROTHROMBIN TIME 13.7 SECONDS (9.4-12.5)
[2018-04-11] MEDS ORDERED: Sodium Chloride 0.9% 1,000 ML IV SCH ×3 (13:30→22:22)
--- NOTE | 2018-04-11 13:42 | CP.PCM.CON ---
<WilliamJenelle - Last Filed: 04/11/18 14:19> History of Present Illness - History of Present Illness History of Present Illness: Jenelle Thomas, PGY1 Critical Care Consult Note CC: subjective fever and SOB This is a 77 year old male with PMH of Alzheimer's dementia, HLD, CHF with EF of 50% in 12/2017, HLD, CAD, R lower lobe pneumonia, c. albicans fungemia, hemolytic anemia, prostate cancer s/p brachytherapy brought in by [facility] for fever and SOB. Per who is POA, patient is non verbal due to severe dementia and is currently at his baseline. Patient had a 14 day course in the hospital for similar symptoms in 12/2017 and was treated for multifocal pneumonia, severe sepsis and NSTEMI. 12 point ROS limited due to patient's nonverbal status. In the ED, vitals significant for temperature of 103.7F, pulse of 113 and O2 saturation of 90% while on face mask. CXR shows bibasilar perihilar infiltrates. Patient tested positive for flu and given one dose of aztreonam, levofloxacin, vancomycin and tamiflu. Patient also given duonebs and 1L NS while in the ED. Noted to have elevated troponins. Will be transferred to the ICU for further management. PMH: Alzheimer's dementia, HLD, CHF with EF of 50% in 12/2017, HLD, CAD, R lower lobe pneumonia, c. albicans fungemia, hemolytic anemia, prostate cancer s/p brachytherapy ALL: Ceftriaxone SH: Former cigar/pipe smoker, quit 30 years ago, no EtOH or illicit drug use Sx: Unclear abdominal surgery when patient had SBO - no record of this in EMR, ERCP FH: Mother - ovarian cancer, colon cancer (@85yo); Father - Aortic aneurysm Meds: See MAY. Updated from shelter medication list Code Status: Full Code Daughter (POA): Alyssia: [phone] Past Patient History - Infectious Disease Hx of Infectious Diseases: None - Past Social History Smoking Status: Former Smoker - CARDIAC Hx Cardiac Disorders: Yes Hx Congestive Heart Failure: Yes Hx Hypercholesterolemia: Yes - PULMONARY Hx Chronic Obstructive Pulmonary Disease (COPD): Yes Hx Pneumonia: Yes - NEUROLOGICAL HX Cerebrovascular Accident: No Hx Dementia: Yes - HEENT Hx HEENT Problems: No Hx Blind: No Hx Cataracts: No Hx Deafness: No Hx Difficulty Chewing: No Hx Epistaxis: No Hx Glaucoma: No Hx Macular Degeneration: No - RENAL Hx Renal Failure: Yes - ENDOCRINE/METABOLIC Hx Diabetes Mellitus Type 2: Yes - HEMATOLOGICAL/ONCOLOGICAL Hx Cancer: No - INTEGUMENTARY Hx Dermatological Problems: Yes Hx Basil Cell: No Hx Eczema: Yes Hx Melanoma: Yes Hx Psoriasis: No Hx Squamous Cell: No - MUSCULOSKELETAL/RHEUMATOLOGICAL Hx Arthritis: No - GASTROINTESTINAL Hx Gastroesophageal Reflux: Yes - GENITOURINARY/GYNECOLOGICAL Hx Hematuria: No Hx Incontinence: Yes Hx Prostate Problems: Yes Hx Sexually Transmitted Disorders: No Hx Urinary Tract Infection: Yes - PSYCHIATRIC Hx Psychophysiologic Disorder: No Hx Anxiety: No Hx Bipolar Disorder: No Hx Depression: No Hx Emotional Abuse: No Hx Hallucinations: No Hx Panic Symptoms: No Hx Post Traumatic Stress Disorder: No Hx Psychosis: No Hx Physical Abuse: No Hx Schizophrenia: No Hx Sexual Abuse: No Hx Substance Use: No - SURGICAL HISTORY Hx Surgeries: No Hx Mastectomy: No - ANESTHESIA Hx Anesthesia: No Hx Anesthesia Reactions: No Hx Malignant Hyperthermia: No Meds Allergies/Adverse Reactions: Allergies Allergy/AdvReac Type Severity Reaction Status Date / Time ceftriaxone sodium Allergy RASH Verified 04/11/18 13:05 [From Rocephin] - Medications Medications: Current Medications Aztreonam (Azactam 1 Gm) 100 mls @ 100 mls/hr IVPB STAT STA; Protocol Stop: 04/11/18 14:00 Levofloxacin/Dextrose (Levaquin 750mg) 750 mg in 150 mls @ 100 mls/hr IVPB STAT STA; Protocol Stop: 04/11/18 14:30 Vancomycin HCl (Vancomycin 1gm) 1 gm in 250 mls @ 167 mls/hr IVPB STAT STA; Protocol Stop: 04/11/18 14:30 Sodium Chloride (Sodium Chloride 0.9%) 1,000 mls @ 100 mls/hr IV .Q10H YOLANDA Physical Exam - Constitutional Appears: No Acute Distress, Chronically Ill - Head Exam Head Exam: ATRAUMATIC, NORMAL INSPECTION - Eye Exam Eye Exam: EOMI Pupil Exam: PERRL - ENT Exam ENT Exam: Mucous Membranes Moist - Neck Exam Neck exam: Positive for: Normal Inspection - Respiratory Exam Respiratory Exam: absent: Accessory Muscle Use, Respiratory Distress Additional comments: mild expiratory wheezing heard in B/L lung bases - Cardiovascular Exam Cardiovascular Exam: Tachycardia, REGULAR RHYTHM, +S1, +S2 - GI/Abdominal Exam GI & Abdominal Exam: Normal Bowel Sounds, Soft. absent: Firm, Guarding, Tenderness - Extremities Exam Extremities exam: Positive for: normal inspection, pedal pulses present. Negative for: calf tenderness, pedal edema, tenderness - Back Exam Back exam: NORMAL INSPECTION - Neurological Exam Neurological exam: Alert Additional comments: confused, non verbal Results - Vital Signs Recent Vital Signs: Last Vital Signs Temp 103.7 F H 04/11/18 11:47 Pulse 117 H 04/11/18 12:38 Resp 30 H 04/11/18 12:38 BP 114/74 04/11/18 12:38 Pulse Ox 95 04/11/18 12:38 - Labs Result Diagrams: 04/11/18 11:30 04/11/18 11:30 Labs: Laboratory Results - last 24 hr 04/11/18 04/11/18 04/11/18 11:30 11:30 11:30 WBC 5.0 RBC 4.50 Hgb 13.8 L Hct 41.9 L MCV 93.1 D MCH 30.7 MCHC 32.9 RDW 14.6 H Plt Count 92 L MPV 10.1 Gran % 86.2 H Lymph % (Auto) 5.6 L Sabine % (Auto) 8.2 H Eos % (Auto) 0.0 L Baso % (Auto) 0.0 Gran # 4.34 Lymph # (Auto) 0.3 L Sabine # (Auto) 0.4 Eos # (Auto) 0.0 Baso # (Auto) 0.00 PT INR APTT pCO2 pO2 39 HCO3 ABG pH ABG Total CO2 ABG O2 Saturation ABG Base Excess ABG Potassium VBG pH 7.36 VBG pCO2 49.0 VBG HCO3 27.7 VBG Total CO2 29.2 H VBG O2 Sat (Calc) 73.4 H VBG Base Excess 1.5 VBG Potassium 3.8 Sodium 142.0 143 Chloride 103.0 104 Glucose 231 H Lactate 3.4 H FiO2 21.0 Crit Value Called To Liberty kaur Crit Value Called By Elisa wagner Blood Gas Notified Time 1200 Potassium 3.9 Carbon Dioxide 29 Anion Gap 14 BUN 25 H Creatinine 0.9 Est GFR ( Amer) > 60 Est GFR (Non-Af Amer) > 60 Random Glucose 221 H Calcium 9.6 Magnesium 1.7 Total Bilirubin 0.8 AST 57 ALT 45 Alkaline Phosphatase 74 Lactate Dehydrogenase 587 Total Creatine Kinase 71 NT-Pro-B Natriuret Pep 467 H Total Protein 6.7 Albumin 3.9 Globulin 2.7 Albumin/Globulin Ratio 1.4 Arterial Blood Potassium Venous Blood Potassium 3.8 Influenza Typ A,B (EIA) 04/11/18 04/11/18 04/11/18 11:30 11:58 12:30 WBC RBC Hgb Hct MCV MCH MCHC RDW Plt Count MPV Gran % Lymph % (Auto) Sabine % (Auto) Eos % (Auto) Baso % (Auto) Gran # Lymph # (Auto) Sabine # (Auto) Eos # (Auto) Baso # (Auto) PT 13.7 H INR 1.19 APTT 33.3 pCO2 39 pO2 65.0 L HCO3 21.5 ABG pH 7.35 ABG Total CO2 22.7 ABG O2 Saturation 94.4 L ABG Base Excess -3.8 L ABG Potassium 3.6 VBG pH VBG pCO2 VBG HCO3 VBG Total CO2 VBG O2 Sat (Calc) VBG Base Excess VBG Potassium Sodium 138.0 Chloride 108.0 H Glucose 138 H Lactate 2.0 FiO2 40.0 Crit Value Called To Crit Value Called By Blood Gas Notified Time Potassium Carbon Dioxide Anion Gap BUN Creatinine Est GFR ( Amer) Est GFR (Non-Af Amer) Random Glucose Calcium Magnesium Total Bilirubin AST ALT Alkaline Phosphatase Lactate Dehydrogenase Total Creatine Kinase NT-Pro-B Natriuret Pep Total Protein Albumin Globulin Albumin/Globulin Ratio Arterial Blood Potassium 3.6 Venous Blood Potassium Influenza Typ A,B (EIA) Pos for influenza a H Assessment & Plan - Assessment and Plan (Free Text) Assessment: This is a 77 year old male with PMH of Alzheimer's dementia, HLD, CHF with EF of 50% in 12/2017, HLD, CAD, R lower lobe pneumonia, c. albicans fungemia, hemolytic anemia, prostate cancer s/p brachytherapy brought in by [facility] for fever and SOB. Patient found to be flu positive and CXR positive for perihilar infiltrates. Patient also found to have NSTEMI and started on a heparin drip. Will be monitored in the ICU. Plan: Neuro: -maintain normothermia -AAO x3, moving extremities spontaneously past midline Cardio: -maintain MAP>65 -will monitor vitals including HR and BP closely Lungs: -SaO2 >90% -start high flox oxygen -duonebs PRN -CXR 04/11/18 shows bibasilar perihilar infiltrates Renal: -maintain euvolemia -avoid nephrotoxic agents, hypochloremia -replace electrolytes as needed -BUN/Cr is 25/0.9 -will give 1.5L NS bolus -ABG today reads pH/pO2/pCO2/bicarb of 7.35/65/39/29 significant for Heme: -Hg today is , will monitor -DVT ppx Endo: -maintain euglycemia ID: -WBC is 5 today WNL, Tmax of 103.7F today -blood culture, urine, sputum culture pending -flu positive -lactate is 2 from 3.4 -antibiotics as per ID GI: - diet -GI prophylaxis Patient seen and case discussed with attending, Dr. Gusman <Ruby Gusman - Last Filed: 04/11/18 14:25> Meds - Medications Medications: Current Medications Levofloxacin/Dextrose (Levaquin 750mg) 750 mg in 150 mls @ 100 mls/hr IVPB STAT STA; Protocol Stop: 04/11/18 14:30 Last Admin: 04/11/18 13:39 Dose: 100 mls/hr Vancomycin HCl (Vancomycin 1gm) 1 gm in 250 mls @ 167 mls/hr IVPB STAT STA; Protocol Stop: 04/11/18 14:30 Sodium Chloride/ Sodium (Chloride) 1,500 mls @ 999 mls/hr IV .Q1H31M STA Stop: 04/11/18 15:41 Heparin Sodium/Sodium Chloride (Heparin 02062 Units/250ml 1/2 Normal Saline) 25,000 units in 250 mls @ 7.495 mls/hr IV .Q24H YOLANDA; Protocol Results - Vital Signs Recent Vital Signs: Last Vital Signs Temp 102.5 F H 04/11/18 13:49 Pulse 100 H 04/11/18 14:15 Resp 25 H 04/11/18 14:15 BP 103/65 04/11/18 14:15 Pulse Ox 96 04/11/18 14:15 - Labs Result Diagrams: 04/11/18 11:30 04/11/18 11:30 Labs: Laboratory Results - last 24 hr 04/11/18 04/11/18 04/11/18 11:30 11:30 11:30 WBC 5.0 RBC 4.50 Hgb 13.8 L Hct 41.9 L MCV 93.1 D MCH 30.7 MCHC 32.9 RDW 14.6 H Plt Count 92 L MPV 10.1 Gran % 86.2 H Lymph % (Auto) 5.6 L Sabine % (Auto) 8.2 H Eos % (Auto) 0.0 L Baso % (Auto) 0.0 Gran # 4.34 Lymph # (Auto) 0.3 L Sabine # (Auto) 0.4 Eos # (Auto) 0.0 Baso # (Auto) 0.00 PT INR APTT pCO2 pO2 39 HCO3 ABG pH ABG Total CO2 ABG O2 Saturation ABG Base Excess ABG Potassium VBG pH 7.36 VBG pCO2 49.0 VBG HCO3 27.7 VBG Total CO2 29.2 H VBG O2 Sat (Calc) 73.4 H VBG Base Excess 1.5 VBG Potassium 3.8 Sodium 142.0 143 Chloride 103.0 104 Glucose 231 H Lactate 3.4 H FiO2 21.0 Crit Value Called To Liberty kaur Crit Value Called By Elisa wagner Blood Gas Notified Time 1200 Potassium 3.9 Carbon Dioxide 29 Anion Gap 14 BUN 25 H Creatinine 0.9 Est GFR ( Amer) > 60 Est GFR (Non-Af Amer) > 60 Random Glucose 221 H Calcium 9.6 Phosphorus Magnesium 1.7 Total Bilirubin 0.8 AST 57 ALT 45 Alkaline Phosphatase 74 Lactate Dehydrogenase 587 Total Creatine Kinase 71 NT-Pro-B Natriuret Pep 467 H Total Protein 6.7 Albumin 3.9 Globulin 2.7 Albumin/Globulin Ratio 1.4 Arterial Blood Potassium Venous Blood Potassium 3.8 Influenza Typ A,B (EIA) 04/11/18 04/11/18 04/11/18 11:30 11:30 11:58 WBC RBC Hgb Hct MCV MCH MCHC RDW Plt Count MPV Gran % Lymph % (Auto) Sabine % (Auto) Eos % (Auto) Baso % (Auto) Gran # Lymph # (Auto) Sabine # (Auto) Eos # (Auto) Baso # (Auto) PT 13.7 H INR 1.19 APTT 33.3 pCO2 pO2 HCO3 ABG pH ABG Total CO2 ABG O2 Saturation ABG Base Excess ABG Potassium VBG pH VBG pCO2 VBG HCO3 VBG Total CO2 VBG O2 Sat (Calc) VBG Base Excess VBG Potassium Sodium Chloride Glucose Lactate FiO2 Crit Value Called To Crit Value Called By Blood Gas Notified Time Potassium Carbon Dioxide Anion Gap BUN Creatinine Est GFR ( Amer) Est GFR (Non-Af Amer) Random Glucose Calcium Phosphorus 2.9 Magnesium Total Bilirubin AST ALT Alkaline Phosphatase Lactate Dehydrogenase Total Creatine Kinase NT-Pro-B Natriuret Pep Total Protein Albumin Globulin Albumin/Globulin Ratio Arterial Blood Potassium Venous Blood Potassium Influenza Typ A,B (EIA) Pos for influenza a H 04/11/18 12:30 WBC RBC Hgb Hct MCV MCH MCHC RDW Plt Count MPV Gran % Lymph % (Auto) Sabine % (Auto) Eos % (Auto) Baso % (Auto) Gran # Lymph # (Auto) Sabine # (Auto) Eos # (Auto) Baso # (Auto) PT INR APTT pCO2 39 pO2 65.0 L HCO3 21.5 ABG pH 7.35 ABG Total CO2 22.7 ABG O2 Saturation 94.4 L ABG Base Excess -3.8 L ABG Potassium 3.6 VBG pH VBG pCO2 VBG HCO3 VBG Total CO2 VBG O2 Sat (Calc) VBG Base Excess VBG Potassium Sodium 138.0 Chloride 108.0 H Glucose 138 H Lactate 2.0 FiO2 40.0 Crit Value Called To Crit Value Called By Blood Gas Notified Time Potassium Carbon Dioxide Anion Gap BUN Creatinine Est GFR ( Amer) Est GFR (Non-Af Amer) Random Glucose Calcium Phosphorus Magnesium Total Bilirubin AST ALT Alkaline Phosphatase Lactate Dehydrogenase Total Creatine Kinase NT-Pro-B Natriuret Pep Total Protein Albumin Globulin Albumin/Globulin Ratio Arterial Blood Potassium 3.6 Venous Blood Potassium Influenza Typ A,B (EIA) Addendum Addendum: 04/11/18 14:25 ICU Attending Addendum Patient seen and examined. Case reviewed on round with housestaff. Agree with resident note above with the following additions/exceptions: 77M with Alzheimer's dementia, CHF (EF of 50% in 12/2017), CAD, R lower lobe pneumonia, c. albicans fungemia, hemolytic anemia, prostate cancer s/p brachytherapy admitted from [facility] for fever and SOB. Limited history regarding the preceding events however does mention other poeple at the [place] are sick. Recently in december he was admitted for 2 weeks for mulitofcal PNA, severe sepsis and NSTEMI. In the ED, tmax 103.7 BP 120/92 HR 118 94% on NRB. He was awake but non verbal as his baseline. Breathing was not labored. He did not appear cynotic. Bibasilar breath soudns diminished, overall no wheezing or crackles. Labs reviewed as well as CXR imaging. Elevated lac, Hypoxia on ABG, Bibasilar infltrate on CXR, Influenza + as well.. Given aztreonam, levofloxacin, vancom ycin and tamiflu. Mr. Matthew is septic from influenza and possibly superimposed PNA. His CXR is similar to previous so I am not sure if these bibailar infiltrates are a result of his miltifocal PNA this past december as imaging can lag behind clinical picture. -> Tamiflu given and he should be tx for superimposed PNA empirically, abx as per ID -> he should receive 30cc/kg total of IVF upfront as suggested by suriving sepsis guidelines FOr his oxygen delivery, he should be switched to High Flow NC -repeat ABG with LAC to identify down trending lac TNI elevated, likely demand from tachycardia and sepsis -trend TNI -ASA given in ED -Start heparin drip for now Monitor I/O keep HB > 7 Keep Gluc 110-180 CXR in AM with ABG in AM NPO for now DVT ppx: SCDs and on Heparin Drip GI PPx: indicated for severe sepsis with protonix Rest of care as noted above Ruby Gusman MD Pulmonary Critical Care and Sleep Medicine
[2018-04-11] MEDS ORDERED: Sodium Chloride 0.9% 500 ML IV STA ×2 (14:11→20:40)
--- NOTE | 2018-04-11 14:30 | ED PDOC ---
Arrival/HPI - General Chief Complaint: Shortness Of Breath Time Seen by Provider: 04/11/18 11:18 Historian: Alf - Critical Care Critical Care Minutes: 60 minutes - History of Present Illness Narrative History of Present Illness (Text): 04/11/18 11:18 77 year old male, whose past medical history includes Alzheimer's, CHF, and hyperlipidemia, who was sent to the Emergency department via ambulance from retirement for fever, cough, and decreased verbal consciousness. Pt noted to have a fever at the retirement. Patient was started on Levaquin PO 2 days ago. There are no other complaints at this time. Patient's ROS is limited by mental status. PMD: Sean Black Time/Duration: Prior to Arrival Symptom Onset: Sudden Symptom Course: Unchanged Activities at Onset: Light Past Medical History - Provider Review Nursing Documentation Reviewed: Yes - Infectious Disease Hx of Infectious Diseases: None - Cardiac Hx Cardiac Disorders: Yes Hx Congestive Heart Failure: Yes - Pulmonary Hx Chronic Obstructive Pulmonary Disease (COPD): Yes Hx Pneumonia: Yes - Neurological HX Cerebrovascular Accident: No Hx Dementia: Yes - HEENT Hx HEENT Disorder: No Hx Blind: No Hx Cataracts: No Hx Deafness: No Hx Difficulty Chewing: No Hx Epistaxis: No Hx Glaucoma: No Hx Macular Degeneration: No - Renal Hx Renal Failure: Yes - Endocrine/Metabolic Hx Diabetes Mellitus Type 2: Yes - Hematological/Oncological Hx Cancer: No - Integumentary Hx Dermatological Disorder: Yes Hx Basal Cell Carcinoma: No Hx Eczema: Yes Hx Melanoma: Yes Hx Psoriasis: No Hx Squamous Cell Carcinoma: No - Musculoskeletal/Rheumatological Hx Arthritis: No - Gastrointestinal Hx Gastroesophageal Reflux: Yes - Genitourinary/Gynecological Hx Hematuria: No Hx Incontinence: Yes Hx Prostate Problems: Yes Hx Sexually Transmitted Diseases: No Hx Urinary Tract Infection: Yes - Psychiatric Hx Psychophysiologic Disorder: No Hx Anxiety: No Hx Bipolar Disorder: No Hx Depression: No Hx Emotional Abuse: No Hx Hallucinations: No Hx Panic Disorder: No Hx Post Traumatic Stress Disorder: No Hx Psychosis: No Hx Physical Abuse: No Hx Schizophrenia: No Hx Sexual Abuse: No Hx Substance Use: No - Surgical History Hx Mastectomy: No - Anesthesia Hx Anesthesia: No Hx Anesthesia Reactions: No Hx Malignant Hyperthermia: No - Suicidal Assessment Feels Threatened In Home Enviroment: No Family/Social History - Physician Review Nursing Documentation Reviewed: Yes Family/Social History: No Known Family HX Smoking Status: Former Smoker Hx Alcohol Use: No Hx Substance Use: No Allergies/Home Meds Allergies/Adverse Reactions: Allergies ceftriaxone sodium [From Rocephin] Allergy (Verified 04/11/18 13:05) RASH Home Medications: Home Meds Medication Instructions Recorded Confirmed Aspirin [Adult Low Dose Aspirin EC] 81 mg PO DAILY 08/21/16 04/11/18 Donepezil [Aricept] 10 mg PO HS 08/21/16 04/11/18 Levothyroxine [Synthroid] 75 mcg PO DAILY 08/21/16 04/11/18 Magnesium Hydroxide [Milk Of 30 ml PO PRN PRN 08/21/16 04/11/18 Magnesia] Acetaminophen [Pain Reliever] 650 mg PO Q4 PRN 10/19/16 04/11/18 Atorvastatin [Lipitor] 40 mg PO HS 09/09/17 04/11/18 Montelukast [Singulair] 10 mg PO DAILY 10/10/17 04/11/18 Carbidopa/Levodopa [Sinemet Cr 1 tab PO TID 04/11/18 04/11/18 25-100 Tablet] Ferrous Gluconate [Fergon] 324 mg PO DAILY 04/11/18 04/11/18 Gly/Dimeth/Petrolat,Wht/Water 1 appl TOP BID 04/11/18 04/11/18 [Cetaphil Moisturizing Cream] Nut.tx.gluc.intoler,Lac-Fr,Soy 237 ml PO TID 04/11/18 04/11/18 [Ensure Glucerna Shake 237 ml] Nut.tx.impaired Digest Fxn [Ensure 8 oz PO DAILY 04/11/18 04/11/18 Clear] Nystatin/Triamcinolone [Mycolog 1 appl TP QSHIFT 04/11/18 04/11/18 Cream] Pantoprazole Sodium [Protonix] 20 mg PO DAILY 04/11/18 04/11/18 Promethazine DM [Phenergan DM 5 ml PO TID 04/11/18 04/11/18 Syrup] levoFLOXacin [Levaquin] 750 mg PO DAILY 04/11/18 04/11/18 Review of Systems - Physician Review All systems were reviewed & negative as marked: Yes (ROS limited by patient's mental status) - Review of Systems Constitutional: Fevers. absent: Normal Respiratory: Cough. absent: Normal Neurological: Speech Changes (retirement notes decreased verbal consciousness). absent: Normal Physical Exam Vital Signs Reviewed: Yes Vital Signs Temp Pulse Resp BP Pulse Ox 04/11/18 14:15 100 H 25 H 103/65 96 04/11/18 13:49 102.5 F H 04/11/18 12:47 102.5 F H 04/11/18 12:38 117 H 30 H 114/74 95 04/11/18 12:28 90 L 04/11/18 12:12 113 H 120/92 H 89 L 04/11/18 11:50 32 H 04/11/18 11:47 103.7 F H 04/11/18 11:17 103.7 F H 108 H 32 H 120/92 H 90 L Temperature: Febrile Blood Pressure: Normal Pulse: Tachycardic Respiratory Rate: Tachypneic Appearance: Positive for: Non-Toxic, Ill-Appearing Pain Distress: Mild Mental Status: Positive for: other (Pt has history of Alzheimer's disease) - Systems Exam Head: Present: Atraumatic, Normocephalic Pupils: Present: PERRL Extroacular Muscles: Present: EOMI Conjunctiva: Present: Normal Mouth: Present: Moist Mucous Membranes Neck: Present: Normal Range of Motion Respiratory/Chest: Present: Clear to Auscultation, Respiratory Distress (Mild to moderate distress noted ), Rhonchi (rhonci noted bilaterally ). No: Wheezes, Rales Cardiovascular: Present: Regular Rate and Rhythm, Normal S1, S2. No: Murmurs Abdomen: Present: Normal Bowel Sounds, Other (No perforated edema ). No: Tenderness, Distention, Peritoneal Signs Back: Present: Normal Inspection Upper Extremity: Present: Normal Inspection. No: Cyanosis, Edema Lower Extremity: Present: Normal Inspection. No: Edema Neurological: Present: GCS=15, CN II-XII Intact Skin: Present: Diaphoretic. No: Dry Psychiatric: Present: Alert (pt has history of alzheimer's disease ) Medical Decision Making ED Course and Treatment: 04/11/18 11:20 Impression: 77 year old male who presents from retirement for fever, cough, and decreased verbal consciousness. Differential Diagnosis included but are not limited to: Plan: -- Labs -- EKG -- X-ray of chest -- Aspirin -- Azactam -- Duoneb -- Levaquin -- IV fluids -- Tamiflu -- Tylenol -- Vancomycin -- Blood culture -- Sputum culture -- Urine culture -- Cleaning Associate -- Influenza A B -- Urinalysis -- Reassess and disposition Prior Visits: Notes and results from previous visits were reviewed. Patient was last seen in the emergency department on 12/22/17 with POA for pneumonia evaluation. Pt was admitted to the hospital in critical condition with diagnosis of Pneumonia, Sepsis, UTI, and non-ST elevated myocardial infarction. Progress Notes: 04/11/18 Code sepsis was called, however cardiac status unknown so will hold off on aggressive IV hydration. 04/11/18 12:[address] Nicholson, who is requesting IV consult from Dr. Goode. 04/11/18 12:[address] Almaguer, who is covering for Dr. Goode, who recommends Levaquin, Azactam, and Vancomycin, along with Tamiflu. Overhead Line Worker consulted on case, who accepted pt to ICU. Rectal aspirin given for positive Troponin. - Critical Care Critical Care Minutes: 60 minutes - Lab Interpretations Lab Results: pCO2 39 mm/Hg (35-45) 04/11/18 12:30 pO2 65.0 mm/Hg (80-100) L 04/11/18 12:30 HCO3 21.5 mmol/L (21-28) 04/11/18 12:30 ABG pH 7.35 (7.35-7.45) 04/11/18 12:30 ABG Total CO2 22.7 mmol.L (22-28) 04/11/18 12:30 ABG O2 Saturation 94.4 % (95-98) L 04/11/18 12:30 ABG Base Excess -3.8 mmol/L (-2.0-3.0) L 04/11/18 12:30 ABG Potassium 3.6 mmol/L (3.6-5.2) 04/11/18 12:30 VBG pH 7.36 (7.32-7.43) 04/11/18 11:30 VBG pCO2 49.0 (40-60) 04/11/18 11:30 VBG HCO3 27.7 mmol/l (21-28) 04/11/18 11:30 VBG Total CO2 29.2 mmol.L (22-28) H 04/11/18 11:30 VBG O2 Sat (Calc) 73.4 % (40-65) H 04/11/18 11:30 VBG Base Excess 1.5 mmol/L (0.0-2.0) 04/11/18 11:30 VBG Potassium 3.8 mmol/L (3.6-5.2) 04/11/18 11:30 Sodium 138.0 mmol/L (132-148) 04/11/18 12:30 Chloride 108.0 mmol/L (98-107) H 04/11/18 12:30 Glucose 138 mg/dl (75-110) H 04/11/18 12:30 Lactate 2.0 mmol/L (0.7-2.1) 04/11/18 12:30 FiO2 40.0 % 04/11/18 12:30 Crit Value Called To Liberty kaur 04/11/18 11:30 Crit Value Called By Elisa wagner 04/11/18 11:30 Blood Gas Notified Time 1200 04/11/18 11:30 PT 13.7 SECONDS (9.4-12.5) H 04/11/18 11:30 INR 1.19 04/11/18 11:30 APTT 33.3 Seconds (25.1-36.5) 04/11/18 11:30 NT-Pro-B Natriuret Pep 467 pg/mL (0-450) H 04/11/18 11:30 Total Bilirubin 0.8 mg/dL (0.2-1.3) 04/11/18 11:30 AST 57 U/L (17-59) 04/11/18 11:30 ALT 45 U/L (7-56) 04/11/18 11:30 Alkaline Phosphatase 74 U/L (38-126) 04/11/18 11:30 Total Protein 6.7 g/dL (5.8-8.3) 04/11/18 11:30 Albumin 3.9 g/dL (3.0-4.8) 04/11/18 11:30 Globulin 2.7 gm/dL 04/11/18 11:30 Albumin/Globulin Ratio 1.4 (1.1-1.8) 04/11/18 11:30 - RAD Interpretation Narrative RAD Interpretations (Text): X-Ray of chest reviewed by radiologist, shows: Dictated By: Ramone Ponce MD Dictated Date/Time: 04/11/18 12:34 Impression: Bibasilar perihilar infiltrates Radiology Orders: 04/11/18 11:33 CHEST PORTABLE [RAD] Stat Build And Deployment Engineer: Radiologist - EKG Interpretation EKG Interpretation (Text): 04/11/18 EKG: Ordered, reviewed, and independently interpreted the EKG. Rate : 110 BPM Rhythm : Sinus Tachycardia Interpretation : No ST-segment elevations or depressions, no T-wave inversions, normal intervals. Interpreted by ED Physician: Yes Type: 12 lead EKG - Medication Orders Current Medication Orders: Levofloxacin/Dextrose (Levaquin 750mg) 750 mg in 150 mls @ 100 mls/hr IVPB STAT STA; Protocol Stop: 04/11/18 14:30 Last Admin: 04/11/18 13:39 Dose: 100 mls/hr eMAR Start Stop Document 04/11/18 13:39 MR (Rec: 04/11/18 13:39 [id number]) Intravenous Solution Start Date 04/11/18 Start Time 13:39 End Date 04/11/18 End time 15:09 Total Infusion Time 90 Vancomycin HCl (Vancomycin 1gm) 1 gm in 250 mls @ 167 mls/hr IVPB STAT STA; Protocol Stop: 04/11/18 14:30 Sodium Chloride/ Sodium (Chloride) 1,500 mls @ 999 mls/hr IV .Q1H31M STA Stop: 04/11/18 15:41 Heparin Sodium/Sodium Chloride (Heparin 33887 Units/250ml 1/2 Normal Saline) 25,000 units in 250 mls @ 7.495 mls/hr IV .Q24H YOLANDA; Protocol Discontinued Medications Acetaminophen (Tylenol 650 Mg Supp) 650 mg RC STAT STA Stop: 04/11/18 11:33 Last Admin: 04/11/18 11:47 Dose: 650 mg MAR Pain/Vitals Document 04/11/18 11:47 MR (Rec: 04/11/18 11:47 [id number]) Pain Reassessment Is This A Pain ReAssessment? No Sleep Is patient sleeping during reassessment? No Presence of Pain Presence of Pain No Pain Scale Used Protocol: PSCALES [facility] Temperature (97.6 F-99.6 F) 103.7 F Temperature Source Rectal Re-Assess: MAR Pain/Vitals Document 04/11/18 12:47 MR (Rec: 04/11/18 13:40 MR [id number]) Vitals Temperature (97.6 F-99.6 F) 102.5 F Temperature Source Rectal Albuterol/Ipratropium (Duoneb 3 Mg/0.5 Mg (3 Ml) Ud) 3 ml IH STAT STA Stop: 04/11/18 11:33 Last Admin: 04/11/18 11:47 Dose: 3 ml Albuterol/Ipratropium (Duoneb 3 Mg/0.5 Mg (3 Ml) Ud) 3 ml IH STAT STA Stop: 04/11/18 12:11 Last Admin: 04/11/18 12:14 Dose: 3 ml Albuterol/Ipratropium (Duoneb 3 Mg/0.5 Mg (3 Ml) Ud) 3 ml IH STAT STA Stop: 04/11/18 12:11 Last Admin: 04/11/18 12:15 Dose: 3 ml Aspirin (Aspirin Supp) 300 mg RC STAT STA Stop: 04/11/18 13:37 Last Admin: 04/11/18 13:49 Dose: 300 mg MAR Pain/Vitals Document 04/11/18 13:49 MR (Rec: 04/11/18 13:49 [id number]) Vitals Temperature (97.6 F-99.6 F) 102.5 F Temperature Source Rectal Heparin Sodium (Porcine) (Heparin) 4,000 units IV ONCE ONE; Protocol Stop: 04/11/18 14:14 Aztreonam (Azactam 1 Gm) 100 mls @ 100 mls/hr IVPB STAT STA; Protocol Stop: 04/11/18 14:00 Sodium Chloride (Sodium Chloride 0.9%) 1,000 mls @ 100 mls/hr IV .Q10H YOLANDA Last Admin: 04/11/18 13:41 Dose: 100 mls/hr eMAR Start Stop Document 04/11/18 13:41 MR (Rec: 04/11/18 13:41 [id number]) Intravenous Solution Start Date 04/11/18 Start Time 13:41 Oseltamivir Phosphate (Tamiflu Susp) 75 mg PO STAT STA; Protocol Stop: 04/11/18 13:02 Last Admin: 04/11/18 13:39 Dose: 75 mg - Scribe Statement The provider has reviewed the documentation as recorded by the Hattieibclaribel Pollard All medical record entries made by the Hattieibclaribel were at my direction and personally dictated by me. I have reviewed the chart and agree that the record accurately reflects my personal performance of the history, physical exam, medical decision making, and the department course for this patient. I have also personally directed, reviewed, and agree with the discharge instructions and disposition. Disposition/Present on Arrival - Present on Arrival Any Indicators Present on Arrival: Yes History of DVT/PE: No History of Uncontrolled Diabetes: No Urinary Catheter: Yes History of Decub. Ulcer: No History Surgical Site Infection Following: None - Disposition Have Diagnosis and Disposition been Completed?: Yes Diagnosis: NSTEMI (non-ST elevated myocardial infarction), Sepsis, Pneumonia Disposition: HOSPITALIZED Disposition Time: 12:30 Condition: SERIOUS
[2018-04-11 14:56] LABS: TROPONIN I 2.85 ng/mL
--- NOTE | 2018-04-11 15:08 | PCM.SEPTIC ---
<Shantanu Mina - Last Filed: 04/11/18 15:07> Sepsis Progress Note - Reassessment Type Reassessment Type: Non-invasive reassessment - Non Invasive Reassessment Were the most recent vital sign reviewed: Yes Vital Sign (Latest): Temp Pulse Resp BP Pulse Ox 102.5 F H 100 H 25 H 103/65 96 04/11/18 13:49 04/11/18 14:15 04/11/18 14:15 04/11/18 14:15 04/11/18 14:15 Cardiovascular: Yes: Regular Rate, Rhythm, Tachycardia Respiratory: Yes: Normal Breath Sounds Capillary Refill: Normal (Less than 2 sec) Pulses: Normal Radial, Normal Dorsalis Pedis, Normal Posterior Tibialis Skin: Warm, Dry <Sandra Yao - Last Filed: 04/13/18 07:31> Sepsis Progress Note - Non Invasive Reassessment Vital Sign (Latest): Temp Pulse Resp BP Pulse Ox 98.8 F 53 L 27 H 87/49 L 98 04/13/18 06:10 04/13/18 06:10 04/13/18 06:10 04/12/18 20:00 04/13/18 06:10 Attending/Attestation - Attestation I have personally seen and examined this patient.: No I have fully participated in the care of the patient.: No I have reviewed all pertinent clinical information, including history, physical exam and plan: No Notes (Text): 04/13/18 07:31 system error. Patient was not seen by me. Seen by DR. Nicholson PMRogelio.
[2018-04-11] MEDS: Heparin25000 units/250ml 1/2NS 25,000 UNITS/250 ML BAG IV SCH (15:58)
[2018-04-11] MEDS: MethylPREDNISolone 40 mg Vial IVP SCH ×2 (16:01→21:35)
[2018-04-11 16:25] LABS: VENOUS BLOOD GAS BASE EXCESS -0.2 mmol/L (0.0-2.0); VENOUS BLOOD GAS PO2 56 mm/Hg (30-55); VENOUS BLOOD PH 7.42 (7.32-7.43)
[2018-04-11] MEDS ORDERED: Pneumococcal 23-Valent Vaccine IM ONE (17:01)
[2018-04-11] MEDS ORDERED: Influenza Vaccine 60 mcg/0.5 mL SYR (4YR UP) IM ONE (17:01)
[2018-04-11 18:18] LABS: VENOUS BLOOD GAS BASE EXCESS -0.3 mmol/L (0.0-2.0); VENOUS BLOOD GAS PO2 97 mm/Hg (30-55); VENOUS BLOOD PH 7.41 (7.32-7.43)
--- NOTE | 2018-04-11 18:30 | CARD ---
APPROVED REPORT Date of service: 04/11/2018 EKG Measurement Heart [id number] <Conclusion> Sinus tachycardia Low voltage QRS Borderline ECG
[2018-04-11 20:34] LABS: PH,URINE 5.5 (4.7-8.0); URINE BILIRUBIN NEGATIVE (NEGATIVE); URINE BLOOD SMALL (NEGATIVE); URINE GLUCOSE (UA) 500 mg/dL (NEGATIVE); URINE LEUKOCYTE ESTERASE SMALL Leu/uL (NEGATIVE); URINE PROTEIN 30 mg/dL (<30 mg/dL); URINE UROBILINOGEN 0.2 E.U./dL (<1 E.U./dL)
[2018-04-11 20:48] LABS: URINE APPEARANCE SLIGHT-CLOUDY (CLEAR); URINE COLOR AMBER (YELLOW)
[2018-04-11 20:55] LABS: URINE WBC 20 - 25 /hpf (0-6)
[2018-04-11] MEDS: Vancomycin 1gm in NS 250ml 1 GM/250 ML BAG IVPB SCH (21:18)
[2018-04-11] MEDS: Meropenem IV 1 gm in NS 1 GM/50 ML BAG IVPB SCH (21:35)
--- NOTE | 2018-04-11 22:02 | HP ---
DATE OF EXAM: 04/11/2018 HISTORY OF PRESENT ILLNESS: Max is very well. I have been seeing him at [facility] [place], he was there about 4-5 days ago. He was alert, smiling, confused, but talking at his baseline. I started him on Levaquin 2 days later for bronchitis type picture from the nurse, possible aspiration type picture. He is on Levaquin 500, I believe he had 2 to 3 doses. Today, I got a call from the nurse saying it is much worse. I sent him to the [place] emergency room. A 77-year-old man with multiple medical history who is now ruling out pneumonia. He has got bad CHF, CAD, COPD, pneumonia history, and dementia. He had bad gallbladder disease, type 2 diabetes, skin disorders, eczema, melanoma, gastroesophageal reflux disease, incontinence of urine, BPH, and urinary tract infections. HABITS: Former smoker. No alcohol. No drugs. ALLERGIES: TO ROCEPHIN. MEDICATIONS: He is currently taking aspirin, Aricept, Feosol, Synthroid, Lipitor, , Singulair, Alogliptin, and Flomax. REVIEW OF SYSTEMS: Right now, review of systems he is kind of lethargic. He does respond a little bit, but sked any questions, so he is very off from his baseline. PHYSICAL EXAMINATION: GENERAL: He is tachypneic. He is ill-appearing. He is very toxic looking. He is weak. VITAL SIGNS: He came in with 103.7 temperature, 108 pulse is up to 117, 32 respiratory rate, 120/92 blood pressure, and 90% O2 sat. HEENT: Head is atraumatic and normocephalic. His eyes looks sunken. He looks very pale. He looks tired. His eyes are down. He will opens his eyes and mouth is dry. NECK: Supple. No JVD. HEART: Regular rate. LUNGS: Decreased breath sounds bilaterally. Poor inspiration. He is on oxygen. ABDOMEN: Soft and nontender. Positive bowel sounds. EXTREMITIES: No edema. SKIN: Poor turgor. LABORATORY DATA: He is positive for influenza. He has 143 sodium, potassium 3.9, BUN 25, creatinine 0.9, GFR is greater than 60, and sugars 221. Calcium is 9.6, phosphorus is 2.9, and magnesium is 1.7. Total bili is 0.8, AST is 67, ALT is 45, and alkaline phosphatase is 74. Lactate dehydrogenase is 587. Total protein kinase is 71. Troponin I is elevated [place] 2.85. [place] 5467. Total protein is 6.7. Albumin is 3.9. His lactate is 3.4, 7.36 pH, 1.1 INR, 5 white count, 13.8 hemoglobin, 41.9 hematocrit with 92 platelets. Chest x-ray shows bilateral pneumonia. IMPRESSION AND PLAN: He is going to be moved to the Intensive Care Unit. He has multiple issues, bilateral pneumonia, influenza, myocardial infarction, coronary artery disease, and lethargic. He looks septic to me. He will have consults with Infectious Disease, Cardiology, [employer], and Pulmonary. He has got aztreonam already IV, vancomycin IV. He is on Tamiflu. He had Solu-Medrol 4 day a week every 12 hours, some IV fluids. He is a little bit in trouble. We will keep a close eye on him in the Intensive Care Unit. Discussed with his and daughter. Sean Nicholson DO MTDRogelio
[2018-04-11] MEDS ORDERED: Insulin Lispro 1 UNITS/0.01 ML SC STA (23:04)
[2018-04-12] MEDS: Meropenem IV 1 gm in NS 1 GM/50 ML BAG IVPB SCH ×3 (05:18→21:21)
[2018-04-12 07:05] LABS: GRAN # 1.81 (1.4-6.5); GRAN % 81.1 % (50.0-68.0); HEMOGLOBIN 10.1 g/dL (14.0-18.0); LYMPH # 0.3 (1.2-3.4); LYMPH % 13.5 % (22.0-35.0); MEAN CELL VOLUME 94.3 fl (80.0-105.0); MEAN CORPUSCULAR HEMOGLOBIN 30.3 pg (25.0-35.0); MEAN CORPUSCULAR HGB CONC 32.2 g/dl (31.0-37.0); MEAN PLATELET VOLUME 9.9 fl (7.0-11.0); MONO # 0.1 (0.1-0.6); MONO % 5.4 % (1.0-6.0); RBC 3.33 10^6/uL (3.5-6.1); RED CELL DISTRIBUTION WIDTH 14.8 % (11.5-14.5); VENOUS BLOOD GAS BASE EXCESS -3.7 mmol/L (0.0-2.0); VENOUS BLOOD GAS PO2 46 mm/Hg (30-55); VENOUS BLOOD PH 7.31 (7.32-7.43); WHITE BLOOD COUNT 2.2 10^3/uL (4.5-11.0)
[2018-04-12] MEDS ORDERED: Albuterol-Ipratrop 3 mg / 0.5 (3 ml) UD IH PRN (07:07)
--- NOTE | 2018-04-12 07:15 | CP.CCUPN ---
<Jenelle Thomas - Last Filed: 04/12/18 10:28> CCU Subjective - Physician Review Subjective (Free Text): 04/12/18 07:13 Jenelle Thomas PGY1 Critical Care Progress Note Patient seen and examined at bedside this morning. No acute events reported overnight. Will continue antibiotics and tamiflu for pneumonia and flu respectively. Troponins downtrending, continue heparin drip as per protocol. Lactate is downtrending. 12 point review of systems limited due to patient status. CCU Objective - Vital Signs / Intake & Output Vital Signs (Last 4 hours): Vital Signs Temp Pulse Resp BP Pulse Ox 04/12/18 06:40 97.3 F L 47 L 99 04/12/18 06:38 97.3 F L 55 L 98 04/12/18 06:32 97.2 F L 55 L 98 04/12/18 06:31 97.2 F L 55 L 100 04/12/18 06:30 97.2 F L 56 L 28 H 99 04/12/18 06:24 97.2 F L 58 L 99 04/12/18 06:20 97.2 F L 58 L 22 100 04/12/18 06:10 97.2 F L 46 L 33 H 97 04/12/18 06:03 97.2 F L 47 L 98 04/12/18 06:00 90/53 L 04/12/18 05:59 97.2 F L 52 L 20 98 04/12/18 05:50 97.0 F L 45 L 27 H 98 04/12/18 05:40 97.0 F L 53 L 22 97 04/12/18 05:35 97.0 F L 52 L 96 04/12/18 05:30 97.0 F L 52 L 25 H 96 04/12/18 05:26 97.0 F L 53 L 96 04/12/18 05:20 97.0 F L 54 L 19 96 04/12/18 05:19 97.0 F L 51 L 97 04/12/18 05:17 97.0 F L 52 L 97 04/12/18 05:12 97.0 F L 57 L 97 04/12/18 05:10 97.0 F L 55 L 107 H 97 04/12/18 05:09 97.0 F L 56 L 97 04/12/18 05:01 97.0 F L 51 L 99 04/12/18 05:00 97.0 F L 56 L 77 H 101/58 L 99 04/12/18 04:56 97.0 F L 53 L 55 H 04/12/18 04:55 97.0 F L 56 L 40 H 04/12/18 04:54 97.0 F L 60 04/12/18 04:53 97.0 F L 65 86 H 04/12/18 04:52 97.0 F L 61 33 H 04/12/18 04:51 97.0 F L 61 04/12/18 04:50 97.0 F L 59 L 31 H 04/12/18 04:49 97.0 F L 79 04/12/18 04:48 97.0 F L 66 04/12/18 04:47 97.0 F L 57 L 34 H 04/12/18 04:46 97.0 F L 67 43 H 04/12/18 04:45 97.0 F L 63 21 04/12/18 04:44 97.0 F L 56 L 22 04/12/18 04:43 97.0 F L 54 L 28 H 04/12/18 04:42 97.0 F L 58 L 26 H 04/12/18 04:41 97.0 F L 53 L 23 04/12/18 04:40 97.0 F L 57 L 22 04/12/18 04:39 97.0 F L 55 L 21 04/12/18 04:38 97.0 F L 54 L 22 04/12/18 04:37 97.0 F L 58 L 29 H 04/12/18 04:36 97.0 F L 54 L 24 04/12/18 04:35 97.0 F L 59 L 24 04/12/18 04:33 97.0 F L 57 L 25 H 04/12/18 04:32 97.0 F L 58 L 29 H 04/12/18 04:31 97.0 F L 52 L 26 H Intake and Output (Last 8hrs): Intake & Output 04/11/18 04/12/18 04/12/18 22:59 06:59 14:59 Intake Total 1774 1540 Output Total 500 600 Balance 1274 940 Weight 137 lb 11.2 oz Intake: IV 1774 1440 Left Forearm 1750 1340 Right Forearm 24 76 Oral 100 Output: Urine 500 600 Condom 500 600 Other: Voiding Method Incontinent - Physical Exam Head: Positive for: Atraumatic, Normocephalic Pupils: Positive for: PERRL Extroacular Muscles: Positive for: EOMI Conjunctiva: Positive for: Normal Mouth: Positive for: Moist Mucous Membranes Neck: Positive for: Normal Range of Motion Respiratory/Chest: Positive for: Clear to Auscultation, Rhonchi (rhonci noted bilaterally ). Negative for: Wheezes, Rales Cardiovascular: Positive for: Regular Rate and Rhythm, Normal S1, S2. Negative for: Murmurs Abdomen: Positive for: Normal Bowel Sounds. Negative for: Tenderness, Distention, Peritoneal Signs, Rebound, Guarding Back: Positive for: Normal Inspection Upper Extremity: Positive for: Normal Inspection. Negative for: Cyanosis, Edema Lower Extremity: Positive for: Normal Inspection. Negative for: Edema Neurological: Positive for: GCS=15, CN II-XII Intact Skin: Positive for: Diaphoretic. Negative for: Dry Psychiatric: Positive for: Alert (pt has history of alzheimer's disease ) - Medications Active Medications: Active Medications Generic Name Dose Route Start Last Admin Trade Name Freq PRN Reason Stop Dose Admin Acetaminophen 325 mg 04/11/18 16:24 04/11/18 16:34 Tylenol 325 Mg Supp RC 325 mg Q4H PRN Administration Fever >100.4 F Albuterol/Ipratropium 3 ml 04/12/18 08:00 Duoneb 3 Mg/0.5 Mg (3 Ml) Ud IH [id number] YOLANDA Albuterol/Ipratropium 3 ml 04/12/18 07:07 Duoneb 3 Mg/0.5 Mg (3 Ml) Ud IH Q2H PRN Shortness of Breath Aspirin 81 mg 04/12/18 10:00 Ecotrin PO DAILY YOLANDA Atorvastatin Calcium 40 mg 04/11/18 22:00 04/11/18 21:36 Lipitor PO 40 mg HS YOLANDA Administration Donepezil HCl 10 mg 04/11/18 22:00 Aricept PO HS YOLANDA Heparin Sodium/Sodium Chloride 25,000 units in 250 mls @ 7.495 mls/hr 04/11/18 14:15 04/11/18 23:17 Heparin 38113 Units/250ml 1/2 Normal Saline IV 8.96 units/kg/hr .Q24H YOLANDA 5.6 mls/hr Titration Protocol 12 UNITS/KG/HR Vancomycin HCl 1 gm in 250 mls @ 167 mls/hr 04/11/18 22:00 04/11/18 21:18 Vancomycin 1gm IVPB 167 mls/hr Q12H YOLANDA Administration Protocol Meropenem 1 gm in 50 mls @ 100 mls/hr 04/11/18 22:00 04/12/18 05:18 Merrem Iv 1 Gm Premix IVPB 100 mls/hr Q8 YOLANDA Administration Protocol Levofloxacin/Dextrose 750 mg in 150 mls @ 100 mls/hr 04/12/18 10:00 Levaquin 750mg IVPB DAILY YOLANDA Protocol Sodium Chloride 1,000 mls @ 70 mls/hr 04/11/18 22:22 04/11/18 22:33 Sodium Chloride 0.9% IV 70 mls/hr .[id number] YOLANDA Administration Insulin Human Lispro 0 units 04/12/18 07:30 Humalog Med SC ACHS YOLANDA Protocol Levothyroxine Sodium 75 mcg 04/12/18 10:00 Synthroid PO DAILY YOLANDA Methylprednisolone 40 mg 04/11/18 15:00 04/11/18 21:35 Solu-Medrol IVP 40 mg Q12 YOLANDA Administration Montelukast Sodium 10 mg 04/12/18 10:00 Singulair PO DAILY YOLANDA Oseltamivir Phosphate 75 mg 04/11/18 18:00 04/11/18 19:00 Tamiflu Cap PO 04/16/18 18:01 75 mg BID YOLANDA Administration Protocol Tamsulosin HCl 0.4 mg 04/12/18 10:00 Flomax PO DAILY YOLANDA - Patient Studies Lab Studies: Microbiology Studies 04/11/18 11:58 Gram Stain - Final Sputum Induced Lab Studies 04/12/18 04/12/18 04/11/18 Range/Units 06:15 06:15 22:30 WBC (4.5-11.0) 10^3/uL RBC (3.5-6.1) 10^6/uL Hgb (14.0-18.0) g/dL Hct (42.0-52.0) % MCV (80.0-105.0) fl MCH (25.0-35.0) pg MCHC (31.0-37.0) g/dl RDW (11.5-14.5) % Plt Count (120.0-450.0) 10^3/uL MPV (7.0-11.0) fl Gran % (50.0-68.0) % Lymph % (Auto) (22.0-35.0) % [place] % (Auto) (1.0-6.0) % Eos % (Auto) (1.5-5.0) % Baso % (Auto) (0.0-3.0) % Gran # (1.4-6.5) Lymph # (Auto) (1.2-3.4) [place] # (Auto) (0.1-0.6) Eos # (Auto) (0.0-0.7) Baso # (Auto) (0.0-2.0) K/mm3 PT (9.4-12.5) SECONDS INR APTT 69.2 H (25.1-36.5) Seconds pCO2 (35-45) mm/Hg pO2 46 (30-55) mm/Hg HCO3 (21-28) mmol/L ABG pH (7.35-7.45) ABG Total CO2 (22-28) mmol.L ABG O2 Saturation (95-98) % ABG Base Excess (-2.0-3.0) mmol/L ABG Potassium (3.6-5.2) mmol/L VBG pH 7.31 L (7.32-7.43) VBG pCO2 45.0 (40-60) VBG HCO3 22.7 (21-28) mmol/l VBG Total CO2 24.1 (22-28) mmol.L VBG O2 Sat (Calc) 83.4 H (40-65) % VBG Base Excess -3.7 L (0.0-2.0) mmol/L VBG Potassium 3.2 L (3.6-5.2) mmol/L Sodium 148.0 (132-148) mmol/L Chloride 117.0 H (98-107) mmol/L Glucose 227 H (75-110) mg/dl Lactate 2.0 (0.7-2.1) mmol/L FiO2 21.0 % Crit Value Called To Avis lee Crit Value Called By Elisa matt Blood Gas Notified Time 705 Potassium (3.6-5.0) mmol/L Carbon Dioxide (21-33) mmol/L Anion Gap (10-20) BUN (7-21) mg/dL Creatinine (0.8-1.5) mg/dl Est GFR ( Amer) Est GFR (Non-Af Amer) POC Glucose (mg/dL) 327 H (65-110) mg/dL Random Glucose (70-110) mg/dL Calcium (8.4-10.5) mg/dL Phosphorus (2.5-4.5) mg/dL Magnesium (1.7-2.2) mg/dL Total Bilirubin (0.2-1.3) mg/dL AST (17-59) U/L ALT (7-56) U/L Alkaline Phosphatase (38-126) U/L Lactate Dehydrogenase (333-699) U/L Total Creatine Kinase (35-230) U/L Troponin I ng/mL NT-Pro-B Natriuret Pep (0-450) pg/mL Total Protein (5.8-8.3) g/dL Albumin (3.0-4.8) g/dL Globulin gm/dL Albumin/Globulin Ratio (1.1-1.8) Arterial Blood Potassium (3.6-5.2) mmol/L Venous Blood Potassium 3.2 L (3.6-5.2) mmol/L Urine Color (YELLOW) Urine Appearance (CLEAR) Urine pH (4.7-8.0) Ur Specific Bunch (1.005-1.035) Urine Protein (<30 mg/dL) mg/dL Urine Glucose (UA) (NEGATIVE) mg/dL Urine Ketones (NEGATIVE) mg/dL Urine Blood (NEGATIVE) Urine Nitrate (NEGATIVE) Urine Bilirubin (NEGATIVE) Urine Urobilinogen (<1 E.U./dL) E.U./dL Ur Leukocyte Esterase (NEGATIVE) Lizzeth/uL Urine RBC (0-2) /hpf Urine WBC (0-6) /hpf Ur Epithelial Cells (0-5) /hpf Urine Other /hpf Influenza Typ A,B (EIA) (NEGATIVE) 04/11/18 04/11/18 04/11/18 Range/Units 21:40 21:40 20:30 WBC (4.5-11.0) 10^3/uL RBC (3.5-6.1) 10^6/uL Hgb (14.0-18.0) g/dL Hct (42.0-52.0) % MCV (80.0-105.0) fl MCH (25.0-35.0) pg MCHC (31.0-37.0) g/dl RDW (11.5-14.5) % Plt Count (120.0-450.0) 10^3/uL MPV (7.0-11.0) fl Gran % (50.0-68.0) % Lymph % (Auto) (22.0-35.0) % [place] % (Auto) (1.0-6.0) % Eos % (Auto) (1.5-5.0) % Baso % (Auto) (0.0-3.0) % Gran # (1.4-6.5) Lymph # (Auto) (1.2-3.4) [place] # (Auto) (0.1-0.6) Eos # (Auto) (0.0-0.7) Baso # (Auto) (0.0-2.0) K/mm3 PT (9.4-12.5) SECONDS INR APTT 113.5 H* (25.1-36.5) Seconds pCO2 (35-45) mm/Hg pO2 (30-55) mm/Hg HCO3 (21-28) mmol/L ABG pH (7.35-7.45) ABG Total CO2 (22-28) mmol.L ABG O2 Saturation (95-98) % ABG Base Excess (-2.0-3.0) mmol/L ABG Potassium (3.6-5.2) mmol/L VBG pH (7.32-7.43) VBG pCO2 (40-60) VBG HCO3 (21-28) mmol/l VBG Total CO2 (22-28) mmol.L VBG O2 Sat (Calc) (40-65) % VBG Base Excess (0.0-2.0) mmol/L VBG Potassium (3.6-5.2) mmol/L Sodium (132-148) mmol/L Chloride (98-107) mmol/L Glucose (75-110) mg/dl Lactate (0.7-2.1) mmol/L FiO2 % Crit Value Called To Crit Value Called By Blood Gas Notified Time Potassium (3.6-5.0) mmol/L Carbon Dioxide (21-33) mmol/L Anion Gap (10-20) BUN (7-21) mg/dL Creatinine (0.8-1.5) mg/dl Est GFR ( Amer) Est GFR (Non-Af Amer) POC Glucose (mg/dL) (65-110) mg/dL Random Glucose (70-110) mg/dL Calcium (8.4-10.5) mg/dL Phosphorus (2.5-4.5) mg/dL Magnesium (1.7-2.2) mg/dL Total Bilirubin (0.2-1.3) mg/dL AST (17-59) U/L ALT (7-56) U/L Alkaline Phosphatase (38-126) U/L Lactate Dehydrogenase (333-699) U/L Total Creatine Kinase (35-230) U/L Troponin I 7.18 H* D ng/mL NT-Pro-B Natriuret Pep (0-450) pg/mL Total Protein (5.8-8.3) g/dL Albumin (3.0-4.8) g/dL Globulin gm/dL Albumin/Globulin Ratio (1.1-1.8) Arterial Blood Potassium (3.6-5.2) mmol/L Venous Blood Potassium (3.6-5.2) mmol/L Urine Color Shira (YELLOW) Urine Appearance Slight-cloudy (CLEAR) Urine pH 5.5 (4.7-8.0) Ur Specific Bunch >= 1.030 (1.005-1.035) Urine Protein 30 H (<30 mg/dL) mg/dL Urine Glucose (UA) 500 H (NEGATIVE) mg/dL Urine Ketones Negative (NEGATIVE) mg/dL Urine Blood Small H (NEGATIVE) Urine Nitrate Negative (NEGATIVE) Urine Bilirubin Negative (NEGATIVE) Urine Urobilinogen 0.2 (<1 E.U./dL) E.U./dL Ur Leukocyte Esterase Small H (NEGATIVE) Lizzeth/uL Urine RBC 10 - 15 H (0-2) /hpf Urine WBC 20 - 25 H (0-6) /hpf Ur Epithelial Cells 6 - 8 H (0-5) /hpf Urine Other Uyeast /hpf Influenza Typ A,B (EIA) (NEGATIVE) 04/11/18 04/11/18 04/11/18 Range/Units 18:06 18:06 17:11 WBC (4.5-11.0) 10^3/uL RBC (3.5-6.1) 10^6/uL Hgb (14.0-18.0) g/dL Hct (42.0-52.0) % MCV (80.0-105.0) fl MCH (25.0-35.0) pg MCHC (31.0-37.0) g/dl RDW (11.5-14.5) % Plt Count (120.0-450.0) 10^3/uL MPV (7.0-11.0) fl Gran % (50.0-68.0) % Lymph % (Auto) (22.0-35.0) % [place] % (Auto) (1.0-6.0) % Eos % (Auto) (1.5-5.0) % Baso % (Auto) (0.0-3.0) % Gran # (1.4-6.5) Lymph # (Auto) (1.2-3.4) [place] # (Auto) (0.1-0.6) Eos # (Auto) (0.0-0.7) Baso # (Auto) (0.0-2.0) K/mm3 PT (9.4-12.5) SECONDS INR APTT (25.1-36.5) Seconds pCO2 (35-45) mm/Hg pO2 97 H (30-55) mm/Hg HCO3 (21-28) mmol/L ABG pH (7.35-7.45) ABG Total CO2 (22-28) mmol.L ABG O2 Saturation (95-98) % ABG Base Excess (-2.0-3.0) mmol/L ABG Potassium (3.6-5.2) mmol/L VBG pH 7.41 (7.32-7.43) VBG pCO2 38.0 L (40-60) VBG HCO3 24.1 (21-28) mmol/l VBG Total CO2 25.3 (22-28) mmol.L VBG O2 Sat (Calc) 98.1 H (40-65) % VBG Base Excess -0.3 L (0.0-2.0) mmol/L VBG Potassium 3.6 (3.6-5.2) mmol/L Sodium 141.0 (132-148) mmol/L Chloride 110.0 H (98-107) mmol/L Glucose 262 H (75-110) mg/dl Lactate 2.9 H (0.7-2.1) mmol/L FiO2 21.0 % Crit Value Called To Kathrine bermeo Crit Value Called By Atc Blood Gas Notified Time 1816 Potassium (3.6-5.0) mmol/L Carbon Dioxide (21-33) mmol/L Anion Gap (10-20) BUN (7-21) mg/dL Creatinine (0.8-1.5) mg/dl Est GFR ( Amer) Est GFR (Non-Af Amer) POC Glucose (mg/dL) 231 H (65-110) mg/dL Random Glucose (70-110) mg/dL Calcium (8.4-10.5) mg/dL Phosphorus (2.5-4.5) mg/dL Magnesium (1.7-2.2) mg/dL Total Bilirubin (0.2-1.3) mg/dL AST (17-59) U/L ALT (7-56) U/L Alkaline Phosphatase (38-126) U/L Lactate Dehydrogenase (333-699) U/L Total Creatine Kinase (35-230) U/L Troponin I 9.60 H* D ng/mL NT-Pro-B Natriuret Pep (0-450) pg/mL Total Protein (5.8-8.3) g/dL Albumin (3.0-4.8) g/dL Globulin gm/dL Albumin/Globulin Ratio (1.1-1.8) Arterial Blood Potassium (3.6-5.2) mmol/L Venous Blood Potassium 3.6 (3.6-5.2) mmol/L Urine Color (YELLOW) Urine Appearance (CLEAR) Urine pH (4.7-8.0) Ur Specific Bunch (1.005-1.035) Urine Protein (<30 mg/dL) mg/dL Urine Glucose (UA) (NEGATIVE) mg/dL Urine Ketones (NEGATIVE) mg/dL Urine Blood (NEGATIVE) Urine Nitrate (NEGATIVE) Urine Bilirubin (NEGATIVE) Urine Urobilinogen (<1 E.U./dL) E.U./dL Ur Leukocyte Esterase (NEGATIVE) Lizzeth/uL Urine RBC (0-2) /hpf Urine WBC (0-6) /hpf Ur Epithelial Cells (0-5) /hpf Urine Other /hpf Influenza Typ A,B (EIA) (NEGATIVE) 04/11/18 04/11/18 04/11/18 Range/Units 16:10 12:30 11:58 WBC (4.5-11.0) 10^3/uL RBC (3.5-6.1) 10^6/uL Hgb (14.0-18.0) g/dL Hct (42.0-52.0) % MCV (80.0-105.0) fl MCH (25.0-35.0) pg MCHC (31.0-37.0) g/dl RDW (11.5-14.5) % Plt Count (120.0-450.0) 10^3/uL MPV (7.0-11.0) fl Gran % (50.0-68.0) % Lymph % (Auto) (22.0-35.0) % [place] % (Auto) (1.0-6.0) % Eos % (Auto) (1.5-5.0) % Baso % (Auto) (0.0-3.0) % Gran # (1.4-6.5) Lymph # (Auto) (1.2-3.4) [place] # (Auto) (0.1-0.6) Eos # (Auto) (0.0-0.7) Baso # (Auto) (0.0-2.0) K/mm3 PT (9.4-12.5) SECONDS INR APTT (25.1-36.5) Seconds pCO2 39 (35-45) mm/Hg pO2 56 H 65.0 L (30-55) mm/Hg HCO3 21.5 (21-28) mmol/L ABG pH 7.35 (7.35-7.45) ABG Total CO2 22.7 (22-28) mmol.L ABG O2 Saturation 94.4 L (95-98) % ABG Base Excess -3.8 L (-2.0-3.0) mmol/L ABG Potassium 3.6 (3.6-5.2) mmol/L VBG pH 7.42 (7.32-7.43) VBG pCO2 37.0 L (40-60) VBG HCO3 24.0 (21-28) mmol/l VBG Total CO2 25.1 (22-28) mmol.L VBG O2 Sat (Calc) 91.1 H (40-65) % VBG Base Excess -0.2 L (0.0-2.0) mmol/L VBG Potassium 3.9 (3.6-5.2) mmol/L Sodium 141.0 138.0 (132-148) mmol/L Chloride 105.0 108.0 H (98-107) mmol/L Glucose 269 H 138 H (75-110) mg/dl Lactate 5.3 H* 2.0 (0.7-2.1) mmol/L FiO2 21.0 40.0 % Crit Value Called To Emily gomez Crit Value Called By [facility] Blood Gas Notified Time 1625 Potassium (3.6-5.0) mmol/L Carbon Dioxide (21-33) mmol/L Anion Gap (10-20) BUN (7-21) mg/dL Creatinine (0.8-1.5) mg/dl Est GFR ( Amer) Est GFR (Non-Af Amer) POC Glucose (mg/dL) (65-110) mg/dL Random Glucose (70-110) mg/dL Calcium (8.4-10.5) mg/dL Phosphorus (2.5-4.5) mg/dL Magnesium (1.7-2.2) mg/dL Total Bilirubin (0.2-1.3) mg/dL AST (17-59) U/L ALT (7-56) U/L Alkaline Phosphatase (38-126) U/L Lactate Dehydrogenase (333-699) U/L Total Creatine Kinase (35-230) U/L Troponin I ng/mL NT-Pro-B Natriuret Pep (0-450) pg/mL Total Protein (5.8-8.3) g/dL Albumin (3.0-4.8) g/dL Globulin gm/dL Albumin/Globulin Ratio (1.1-1.8) Arterial Blood Potassium 3.6 (3.6-5.2) mmol/L Venous Blood Potassium 3.9 (3.6-5.2) mmol/L Urine Color (YELLOW) Urine Appearance (CLEAR) Urine pH (4.7-8.0) Ur Specific Bunch (1.005-1.035) Urine Protein (<30 mg/dL) mg/dL Urine Glucose (UA) (NEGATIVE) mg/dL Urine Ketones (NEGATIVE) mg/dL Urine Blood (NEGATIVE) Urine Nitrate (NEGATIVE) Urine Bilirubin (NEGATIVE) Urine Urobilinogen (<1 E.U./dL) E.U./dL Ur Leukocyte Esterase (NEGATIVE) Lizzeth/uL Urine RBC (0-2) /hpf Urine WBC (0-6) /hpf Ur Epithelial Cells (0-5) /hpf Urine Other /hpf Influenza Typ A,B (EIA) Pos for influenza a H (NEGATIVE) 04/11/18 04/11/18 04/11/18 Range/Units 11:30 11:30 11:30 WBC (4.5-11.0) 10^3/uL RBC (3.5-6.1) 10^6/uL Hgb (14.0-18.0) g/dL Hct (42.0-52.0) % MCV (80.0-105.0) fl MCH (25.0-35.0) pg MCHC (31.0-37.0) g/dl RDW (11.5-14.5) % Plt Count (120.0-450.0) 10^3/uL MPV (7.0-11.0) fl Gran % (50.0-68.0) % Lymph % (Auto) (22.0-35.0) % [place] % (Auto) (1.0-6.0) % Eos % (Auto) (1.5-5.0) % Baso % (Auto) (0.0-3.0) % Gran # (1.4-6.5) Lymph # (Auto) (1.2-3.4) [place] # (Auto) (0.1-0.6) Eos # (Auto) (0.0-0.7) Baso # (Auto) (0.0-2.0) K/mm3 PT 13.7 H (9.4-12.5) SECONDS INR 1.19 APTT 33.3 (25.1-36.5) Seconds pCO2 (35-45) mm/Hg pO2 (30-55) mm/Hg HCO3 (21-28) mmol/L ABG pH (7.35-7.45) ABG Total CO2 (22-28) mmol.L ABG O2 Saturation (95-98) % ABG Base Excess (-2.0-3.0) mmol/L ABG Potassium (3.6-5.2) mmol/L VBG pH (7.32-7.43) VBG pCO2 (40-60) VBG HCO3 (21-28) mmol/l VBG Total CO2 (22-28) mmol.L VBG O2 Sat (Calc) (40-65) % VBG Base Excess (0.0-2.0) mmol/L VBG Potassium (3.6-5.2) mmol/L Sodium 143 (132-148) mmol/L Chloride 104 (98-107) mmol/L Glucose (75-110) mg/dl Lactate (0.7-2.1) mmol/L FiO2 % Crit Value Called To Crit Value Called By Blood Gas Notified Time Potassium 3.9 (3.6-5.0) mmol/L Carbon Dioxide 29 (21-33) mmol/L Anion Gap 14 (10-20) BUN 25 H (7-21) mg/dL Creatinine 0.9 (0.8-1.5) mg/dl Est GFR ( Amer) > 60 Est GFR (Non-Af Amer) > 60 POC Glucose (mg/dL) (65-110) mg/dL Random Glucose 221 H (70-110) mg/dL Calcium 9.6 (8.4-10.5) mg/dL Phosphorus 2.9 (2.5-4.5) mg/dL Magnesium 1.7 (1.7-2.2) mg/dL Total Bilirubin 0.8 (0.2-1.3) mg/dL AST 57 (17-59) U/L ALT 45 (7-56) U/L Alkaline Phosphatase 74 (38-126) U/L Lactate Dehydrogenase 587 (333-699) U/L Total Creatine Kinase 71 (35-230) U/L Troponin I 2.85 H* D ng/mL NT-Pro-B Natriuret Pep 467 H (0-450) pg/mL Total Protein 6.7 (5.8-8.3) g/dL Albumin 3.9 (3.0-4.8) g/dL Globulin 2.7 gm/dL Albumin/Globulin Ratio 1.4 (1.1-1.8) Arterial Blood Potassium (3.6-5.2) mmol/L Venous Blood Potassium (3.6-5.2) mmol/L Urine Color (YELLOW) Urine Appearance (CLEAR) Urine pH (4.7-8.0) Ur Specific Bunch (1.005-1.035) Urine Protein (<30 mg/dL) mg/dL Urine Glucose (UA) (NEGATIVE) mg/dL Urine Ketones (NEGATIVE) mg/dL Urine Blood (NEGATIVE) Urine Nitrate (NEGATIVE) Urine Bilirubin (NEGATIVE) Urine Urobilinogen (<1 E.U./dL) E.U./dL Ur Leukocyte Esterase (NEGATIVE) Lizzeth/uL Urine RBC (0-2) /hpf Urine WBC (0-6) /hpf Ur Epithelial Cells (0-5) /hpf Urine Other /hpf Influenza Typ A,B (EIA) (NEGATIVE) 04/11/18 04/11/18 Range/Units 11:30 11:30 WBC 5.0 (4.5-11.0) 10^3/uL RBC 4.50 (3.5-6.1) 10^6/uL Hgb 13.8 L (14.0-18.0) g/dL Hct 41.9 L (42.0-52.0) % MCV 93.1 D (80.0-105.0) fl MCH 30.7 (25.0-35.0) pg MCHC 32.9 (31.0-37.0) g/dl RDW 14.6 H (11.5-14.5) % Plt Count 92 L (120.0-450.0) 10^3/uL MPV 10.1 (7.0-11.0) fl Gran % 86.2 H (50.0-68.0) % Lymph % (Auto) 5.6 L (22.0-35.0) % [place] % (Auto) 8.2 H (1.0-6.0) % Eos % (Auto) 0.0 L (1.5-5.0) % Baso % (Auto) 0.0 (0.0-3.0) % Gran # 4.34 (1.4-6.5) Lymph # (Auto) 0.3 L (1.2-3.4) [place] # (Auto) 0.4 (0.1-0.6) Eos # (Auto) 0.0 (0.0-0.7) Baso # (Auto) 0.00 (0.0-2.0) K/mm3 PT (9.4-12.5) SECONDS INR APTT (25.1-36.5) Seconds pCO2 (35-45) mm/Hg pO2 39 (30-55) mm/Hg HCO3 (21-28) mmol/L ABG pH (7.35-7.45) ABG Total CO2 (22-28) mmol.L ABG O2 Saturation (95-98) % ABG Base Excess (-2.0-3.0) mmol/L ABG Potassium (3.6-5.2) mmol/L VBG pH 7.36 (7.32-7.43) VBG pCO2 49.0 (40-60) VBG HCO3 27.7 (21-28) mmol/l VBG Total CO2 29.2 H (22-28) mmol.L VBG O2 Sat (Calc) 73.4 H (40-65) % VBG Base Excess 1.5 (0.0-2.0) mmol/L VBG Potassium 3.8 (3.6-5.2) mmol/L Sodium 142.0 (132-148) mmol/L Chloride 103.0 (98-107) mmol/L Glucose 231 H (75-110) mg/dl Lactate 3.4 H (0.7-2.1) mmol/L FiO2 21.0 % Crit Value Called To Liberty kaur Crit Value Called By Elisa wagner Blood Gas Notified Time 1200 Potassium (3.6-5.0) mmol/L Carbon Dioxide (21-33) mmol/L Anion Gap (10-20) BUN (7-21) mg/dL Creatinine (0.8-1.5) mg/dl Est GFR ( Amer) Est GFR (Non-Af Amer) POC Glucose (mg/dL) (65-110) mg/dL Random Glucose (70-110) mg/dL Calcium (8.4-10.5) mg/dL Phosphorus (2.5-4.5) mg/dL Magnesium (1.7-2.2) mg/dL Total Bilirubin (0.2-1.3) mg/dL AST (17-59) U/L ALT (7-56) U/L Alkaline Phosphatase (38-126) U/L Lactate Dehydrogenase (333-699) U/L Total Creatine Kinase (35-230) U/L Troponin I ng/mL NT-Pro-B Natriuret Pep (0-450) pg/mL Total Protein (5.8-8.3) g/dL Albumin (3.0-4.8) g/dL Globulin gm/dL Albumin/Globulin Ratio (1.1-1.8) Arterial Blood Potassium (3.6-5.2) mmol/L Venous Blood Potassium 3.8 (3.6-5.2) mmol/L Urine Color (YELLOW) Urine Appearance (CLEAR) Urine pH (4.7-8.0) Ur Specific Bunch (1.005-1.035) Urine Protein (<30 mg/dL) mg/dL Urine Glucose (UA) (NEGATIVE) mg/dL Urine Ketones (NEGATIVE) mg/dL Urine Blood (NEGATIVE) Urine Nitrate (NEGATIVE) Urine Bilirubin (NEGATIVE) Urine Urobilinogen (<1 E.U./dL) E.U./dL Ur Leukocyte Esterase (NEGATIVE) Lizzeth/uL Urine RBC (0-2) /hpf Urine WBC (0-6) /hpf Ur Epithelial Cells (0-5) /hpf Urine Other /hpf Influenza Typ A,B (EIA) (NEGATIVE) Laboratory Results - last 24 hr 04/11/18 04/11/18 04/11/18 11:30 11:30 11:30 WBC 5.0 RBC 4.50 Hgb 13.8 L Hct 41.9 L MCV 93.1 D MCH 30.7 MCHC 32.9 RDW 14.6 H Plt Count 92 L MPV 10.1 Gran % 86.2 H Lymph % (Auto) 5.6 L [place] % (Auto) 8.2 H Eos % (Auto) 0.0 L Baso % (Auto) 0.0 Gran # 4.34 Lymph # (Auto) 0.3 L [place] # (Auto) 0.4 Eos # (Auto) 0.0 Baso # (Auto) 0.00 PT INR APTT pCO2 pO2 39 HCO3 ABG pH ABG Total CO2 ABG O2 Saturation ABG Base Excess ABG Potassium VBG pH 7.36 VBG pCO2 49.0 VBG HCO3 27.7 VBG Total CO2 29.2 H VBG O2 Sat (Calc) 73.4 H VBG Base Excess 1.5 VBG Potassium 3.8 Sodium 142.0 143 Chloride 103.0 104 Glucose 231 H Lactate 3.4 H FiO2 21.0 Crit Value Called To Liberty kaur Crit Value Called By Elisa wagner Blood Gas Notified Time 1200 Potassium 3.9 Carbon Dioxide 29 Anion Gap 14 BUN 25 H Creatinine 0.9 Est GFR ( Amer) > 60 Est GFR (Non-Af Amer) > 60 POC Glucose (mg/dL) Random Glucose 221 H Calcium 9.6 Phosphorus Magnesium 1.7 Total Bilirubin 0.8 AST 57 ALT 45 Alkaline Phosphatase 74 Lactate Dehydrogenase 587 Total Creatine Kinase 71 Troponin I 2.85 H* D NT-Pro-B Natriuret Pep 467 H Total Protein 6.7 Albumin 3.9 Globulin 2.7 Albumin/Globulin Ratio 1.4 Arterial Blood Potassium Venous Blood Potassium 3.8 Urine Color Urine Appearance Urine pH Ur Specific Bunch Urine Protein Urine Glucose (UA) Urine Ketones Urine Blood Urine Nitrate Urine Bilirubin Urine Urobilinogen Ur Leukocyte Esterase Urine RBC Urine WBC Ur Epithelial Cells Urine Other Influenza Typ A,B (EIA) 04/11/18 04/11/18 04/11/18 11:30 11:30 11:58 WBC RBC Hgb Hct MCV MCH MCHC RDW Plt Count MPV Gran % Lymph % (Auto) [place] % (Auto) Eos % (Auto) Baso % (Auto) Gran # Lymph # (Auto) [place] # (Auto) Eos # (Auto) Baso # (Auto) PT 13.7 H INR 1.19 APTT 33.3 pCO2 pO2 HCO3 ABG pH ABG Total CO2 ABG O2 Saturation ABG Base Excess ABG Potassium VBG pH VBG pCO2 VBG HCO3 VBG Total CO2 VBG O2 Sat (Calc) VBG Base Excess VBG Potassium Sodium Chloride Glucose Lactate FiO2 Crit Value Called To Crit Value Called By Blood Gas Notified Time Potassium Carbon Dioxide Anion Gap BUN Creatinine Est GFR ( Amer) Est GFR (Non-Af Amer) POC Glucose (mg/dL) Random Glucose Calcium Phosphorus 2.9 Magnesium Total Bilirubin AST ALT Alkaline Phosphatase Lactate Dehydrogenase Total Creatine Kinase Troponin I NT-Pro-B Natriuret Pep Total Protein Albumin Globulin Albumin/Globulin Ratio Arterial Blood Potassium Venous Blood Potassium Urine Color Urine Appearance Urine pH Ur Specific [place] Urine Protein Urine Glucose (UA) Urine Ketones Urine Blood Urine Nitrate Urine Bilirubin Urine Urobilinogen Ur Leukocyte Esterase Urine RBC Urine WBC Ur Epithelial Cells Urine Other Influenza Typ A,B (EIA) Pos for influenza a H 04/11/18 04/11/18 04/11/18 12:30 16:10 17:11 WBC RBC Hgb Hct MCV MCH MCHC RDW Plt Count MPV Gran % Lymph % (Auto) [place] % (Auto) Eos % (Auto) Baso % (Auto) Gran # Lymph # (Auto) [place] # (Auto) Eos # (Auto) Baso # (Auto) PT INR APTT pCO2 39 pO2 65.0 L 56 H HCO3 21.5 ABG pH 7.35 ABG Total CO2 22.7 ABG O2 Saturation 94.4 L ABG Base Excess -3.8 L ABG Potassium 3.6 VBG pH 7.42 VBG pCO2 37.0 L VBG HCO3 24.0 VBG Total CO2 25.1 VBG O2 Sat (Calc) 91.1 H VBG Base Excess -0.2 L VBG Potassium 3.9 Sodium 138.0 141.0 Chloride 108.0 H 105.0 Glucose 138 H 269 H Lactate 2.0 5.3 H* FiO2 40.0 21.0 Crit Value Called To Emily gomez Crit Value Called By [facility] Blood Gas Notified Time 1625 Potassium Carbon Dioxide Anion Gap BUN Creatinine Est GFR ( Amer) Est GFR (Non-Af Amer) POC Glucose (mg/dL) 231 H Random Glucose Calcium Phosphorus Magnesium Total Bilirubin AST ALT Alkaline Phosphatase Lactate Dehydrogenase Total Creatine Kinase Troponin I NT-Pro-B Natriuret Pep Total Protein Albumin Globulin Albumin/Globulin Ratio Arterial Blood Potassium 3.6 Venous Blood Potassium 3.9 Urine Color Urine Appearance Urine pH Ur Specific Bunch Urine Protein Urine Glucose (UA) Urine Ketones Urine Blood Urine Nitrate Urine Bilirubin Urine Urobilinogen Ur Leukocyte Esterase Urine RBC Urine WBC Ur Epithelial Cells Urine Other Influenza Typ A,B (EIA) 04/11/18 04/11/18 04/11/18 18:06 18:06 20:30 WBC RBC Hgb Hct MCV MCH MCHC RDW Plt Count MPV Gran % Lymph % (Auto) [place] % (Auto) Eos % (Auto) Baso % (Auto) Gran # Lymph # (Auto) [place] # (Auto) Eos # (Auto) Baso # (Auto) PT INR APTT pCO2 pO2 97 H HCO3 ABG pH ABG Total CO2 ABG O2 Saturation ABG Base Excess ABG Potassium VBG pH 7.41 VBG pCO2 38.0 L VBG HCO3 24.1 VBG Total CO2 25.3 VBG O2 Sat (Calc) 98.1 H VBG Base Excess -0.3 L VBG Potassium 3.6 Sodium 141.0 Chloride 110.0 H Glucose 262 H Lactate 2.9 H FiO2 21.0 Crit Value Called To Kathrine bermeo Crit Value Called By Atc Blood Gas Notified Time 1816 Potassium Carbon Dioxide Anion Gap BUN Creatinine Est GFR ( Amer) Est GFR (Non-Af Amer) POC Glucose (mg/dL) Random Glucose Calcium Phosphorus Magnesium Total Bilirubin AST ALT Alkaline Phosphatase Lactate Dehydrogenase Total Creatine Kinase Troponin I 9.60 H* D NT-Pro-B Natriuret Pep Total Protein Albumin Globulin Albumin/Globulin Ratio Arterial Blood Potassium Venous Blood Potassium 3.6 Urine Color Shira Urine Appearance Slight-cloudy Urine pH 5.5 Ur Specific Bunch >= 1.030 Urine Protein 30 H Urine Glucose (UA) 500 H Urine Ketones Negative Urine Blood Small H Urine Nitrate Negative Urine Bilirubin Negative Urine Urobilinogen 0.2 Ur Leukocyte Esterase Small H Urine RBC 10 - 15 H Urine WBC 20 - 25 H Ur Epithelial Cells 6 - 8 H Urine Other Uyeast Influenza Typ A,B (EIA) 04/11/18 04/11/18 04/11/18 21:40 21:40 22:30 WBC RBC Hgb Hct MCV MCH MCHC RDW Plt Count MPV Gran % Lymph % (Auto) [place] % (Auto) Eos % (Auto) Baso % (Auto) Gran # Lymph # (Auto) [place] # (Auto) Eos # (Auto) Baso # (Auto) PT INR APTT 113.5 H* pCO2 pO2 HCO3 ABG pH ABG Total CO2 ABG O2 Saturation ABG Base Excess ABG Potassium VBG pH VBG pCO2 VBG HCO3 VBG Total CO2 VBG O2 Sat (Calc) VBG Base Excess VBG Potassium Sodium Chloride Glucose Lactate FiO2 Crit Value Called To Crit Value Called By Blood Gas Notified Time Potassium Carbon Dioxide Anion Gap BUN Creatinine Est GFR ( Amer) Est GFR (Non-Af Amer) POC Glucose (mg/dL) 327 H Random Glucose Calcium Phosphorus Magnesium Total Bilirubin AST ALT Alkaline Phosphatase Lactate Dehydrogenase Total Creatine Kinase Troponin I 7.18 H* D NT-Pro-B Natriuret Pep Total Protein Albumin Globulin Albumin/Globulin Ratio Arterial Blood Potassium Venous Blood Potassium Urine Color Urine Appearance Urine pH Ur Specific Bunch Urine Protein Urine Glucose (UA) Urine Ketones Urine Blood Urine Nitrate Urine Bilirubin Urine Urobilinogen Ur Leukocyte Esterase Urine RBC Urine WBC Ur Epithelial Cells Urine Other Influenza Typ A,B (EIA) 04/12/18 04/12/18 06:15 06:15 WBC RBC Hgb Hct MCV MCH MCHC RDW Plt Count MPV Gran % Lymph % (Auto) [place] % (Auto) Eos % (Auto) Baso % (Auto) Gran # Lymph # (Auto) [place] # (Auto) Eos # (Auto) Baso # (Auto) PT INR APTT 69.2 H pCO2 pO2 46 HCO3 ABG pH ABG Total CO2 ABG O2 Saturation ABG Base Excess ABG Potassium VBG pH 7.31 L VBG pCO2 45.0 VBG HCO3 22.7 VBG Total CO2 24.1 VBG O2 Sat (Calc) 83.4 H VBG Base Excess -3.7 L VBG Potassium 3.2 L Sodium 148.0 Chloride 117.0 H Glucose 227 H Lactate 2.0 FiO2 21.0 Crit Value Called To Avis lee Crit Value Called By Elisa matt Blood Gas Notified Time 705 Potassium Carbon Dioxide Anion Gap BUN Creatinine Est GFR ( Amer) Est GFR (Non-Af Amer) POC Glucose (mg/dL) Random Glucose Calcium Phosphorus Magnesium Total Bilirubin AST ALT Alkaline Phosphatase Lactate Dehydrogenase Total Creatine Kinase Troponin I NT-Pro-B Natriuret Pep Total Protein Albumin Globulin Albumin/Globulin Ratio Arterial Blood Potassium Venous Blood Potassium 3.2 L Urine Color Urine Appearance Urine pH Ur Specific Bunch Urine Protein Urine Glucose (UA) Urine Ketones Urine Blood Urine Nitrate Urine Bilirubin Urine Urobilinogen Ur Leukocyte Esterase Urine RBC Urine WBC Ur Epithelial Cells Urine Other Influenza Typ A,B (EIA) Radiology Impressions: Radiology Impressions Chest X-Ray 04/11/18 11:33 IMPRESSION: Bibasilar perihilar infiltrates. EKG/Cardiology Studies: Cardiology / EKG Studies 04/11/18 11:32 ELECTROCARDIOGRAM Stat Comment: Reason For Exam: SOB Fingerstick Blood Sugar Results: 327 Assessment/Plan - Assessment and Plan (Free Text) Assessment: This is a 77 year old male with PMH of Alzheimer's dementia, HLD, CHF with EF of 50% in 12/2017, HLD, CAD, R lower lobe pneumonia, c. albicans fungemia, hemolytic anemia, prostate cancer s/p brachytherapy brought in by [facility] for fever and SOB. Patient found to be flu positive and CXR positive for perihilar infiltrates. Patient also found to have NSTEMI and started on a heparin drip. Will be monitored in the ICU. Plan: Neuro: -maintain normothermia -AAO x3, moving extremities spontaneously past midline Cardio: Nstemi -maintain MAP>65 -will monitor vitals including HR and BP closely -continue ASA, lipitor -downtrending troponins, continue heparin drip Lungs: B/L perihlar pneumonia, flu positive -SaO2 >90% -continue high flow oxygen -duonebs PRN -CXR 04/11/18 shows bibasilar perihilar infiltrates -decreased solumedrol to 20 IV q12, singulaire Renal: -maintain euvolemia -avoid nephrotoxic agents, hypochloremia -replace electrolytes as needed -BUN/Cr is 25/0.9 -s/p 1.5L bolus, lactate is 2 today frm 2.9 yesterday, downtrending -continue NS at 70cc/hr -VBG today reads pH/pO2/pCO2/bicarb of 7.31/46/45/22 -U/A positive for leuk esterase, 20-25 WBC ID: B/L perihlar pneumonia, flu positive -WBC is 2.2 today WNL, Tmax of 97.3 overnight -blood culture, urine, sputum culture pending -flu positive, tamiflu day 2 -day 2 merrem, vanc, levaquin Heme: -Hg today is 10.1 from 13.8, will monitor -continue synthroid Endo: -maintain euglycemia -ISS medium sliding scale GI: -GI prophylaxis with protonix Patient seen and case discussed with attending, Dr. Pappas <Emerson Pappas - Last Filed: 04/12/18 12:21> CCU Objective - Vital Signs / Intake & Output Vital Signs (Last 4 hours): Vital Signs Temp Pulse Resp BP Pulse Ox 04/12/18 10:40 97.5 F L 60 35 H 96 04/12/18 10:34 97.5 F L 59 L 30 H 92/55 L 96 04/12/18 10:33 97.5 F L 58 L 96 04/12/18 10:31 97.5 F L 59 L 95 04/12/18 10:30 97.5 F L 60 19 95 04/12/18 10:26 97.5 F L 60 94 L 04/12/18 10:20 97.5 F L 59 L 97 04/12/18 10:15 97.5 F L 60 96 04/12/18 10:10 97.5 F L 57 L 95 04/12/18 10:05 97.5 F L 63 96 04/12/18 10:00 97.5 F L 60 30 H 85/43 L 94 L 04/12/18 09:53 97.5 F L 64 95 04/12/18 09:50 97.5 F L 47 L 25 H 96 04/12/18 09:40 97.5 F L 44 L 26 H 94 L 04/12/18 09:30 97.5 F L 51 L 23 92 L 04/12/18 09:20 97.5 F L 53 L 25 H 91 L 04/12/18 09:10 97.5 F L 51 L 24 90 L 04/12/18 09:00 97.5 F L 53 L 26 H 90/37 L 90 L 04/12/18 08:50 97.5 F L 51 L 24 90 L 04/12/18 08:40 97.5 F L 56 L 26 H 90 L 04/12/18 08:30 97.5 F L 54 L 27 H 90 L 04/12/18 08:20 97.5 F L 56 L 29 H 91 L Intake and Output (Last 8hrs): Intake & Output 04/11/18 04/12/18 04/12/18 22:59 06:59 14:59 Intake Total 1774 1540 650 Output Total 500 600 Balance 1274 940 650 Weight 137 lb 11.2 oz Intake: IV 1774 1440 650 IVPB 650 Left Forearm 1750 1340 Right Forearm 24 76 Oral 100 Output: Urine 500 600 Condom 500 600 Other: Voiding Method Incontinent - Medications Active Medications: Active Medications Generic Name Dose Route Start Last Admin Trade Name Freq PRN Reason Stop Dose Admin Acetaminophen 325 mg 04/11/18 16:24 04/11/18 16:34 Tylenol 325 Mg Supp RC 325 mg Q4H PRN Administration Fever >100.4 F Albuterol/Ipratropium 3 ml 04/12/18 08:00 04/12/18 07:28 Duoneb 3 Mg/0.5 Mg (3 Ml) Ud IH 3 ml [id number] YOLANDA Administration Albuterol/Ipratropium 3 ml 04/12/18 07:07 Duoneb 3 Mg/0.5 Mg (3 Ml) Ud IH Q2H PRN Shortness of Breath Aspirin 81 mg 04/12/18 10:00 04/12/18 09:23 Ecotrin PO 81 mg DAILY YOLANDA Administration Atorvastatin Calcium 40 mg 04/11/18 22:00 04/11/18 21:36 Lipitor PO 40 mg HS YOLANDA Administration Donepezil HCl 10 mg 04/11/18 22:00 Aricept PO HS YOLANDA Heparin Sodium/Sodium Chloride 25,000 units in 250 mls @ 7.495 mls/hr 04/11/18 14:15 04/11/18 23:17 Heparin 90321 Units/250ml 1/2 Normal Saline IV 8.96 units/kg/hr .Q24H YOLANDA 5.6 mls/hr Titration Protocol 12 UNITS/KG/HR Vancomycin HCl 1 gm in 250 mls @ 167 mls/hr 04/11/18 22:00 04/12/18 09:25 Vancomycin 1gm IVPB 167 mls/hr Q12H YOLANDA Administration Protocol Meropenem 1 gm in 50 mls @ 100 mls/hr 04/11/18 22:00 04/12/18 05:18 Merrem Iv 1 Gm Premix IVPB 100 mls/hr Q8 YOLANDA Administration Protocol Levofloxacin/Dextrose 750 mg in 150 mls @ 100 mls/hr 04/12/18 10:00 04/12/18 09:24 Levaquin 750mg IVPB 100 mls/hr DAILY YOLANDA Administration Protocol Potassium Chloride 10 meq in 100 mls @ 50 mls/hr 04/12/18 09:15 04/12/18 11:42 Potassium Chloride 10 Meq/100 Ml IVPB 04/12/18 13:14 50 mls/hr Q2H YOLANDA Administration Insulin Human Lispro 0 units 04/12/18 07:30 04/12/18 11:42 Humalog Med SC 3 units ACHS YOLANDA Administration Protocol Levothyroxine Sodium 75 mcg 04/12/18 10:00 04/12/18 09:24 Synthroid PO 75 mcg DAILY YOLANDA Administration Methylprednisolone 20 mg 04/12/18 10:16 Solu-Medrol IVP Q12 YOLANDA Montelukast Sodium 10 mg 04/12/18 10:00 04/12/18 09:24 Singulair PO 10 mg DAILY YOLANDA Administration Oseltamivir Phosphate 75 mg 04/11/18 18:00 04/12/18 09:24 Tamiflu Cap PO 04/16/18 18:01 75 mg BID YOLANDA Administration Protocol Pantoprazole Sodium 40 mg 04/12/18 10:00 04/12/18 09:23 Protonix Inj IVP 40 mg DAILY YOLANDA Administration Tamsulosin HCl 0.4 mg 04/12/18 10:00 04/12/18 09:23 Flomax PO 0.4 mg DAILY YOLANDA Administration - Patient Studies Lab Studies: Microbiology Studies 04/11/18 12:00 Blood Culture - Preliminary Blood-Venous NO GROWTH AFTER 24 HOURS 04/11/18 11:30 Blood Culture - Preliminary Blood-Venous NO GROWTH AFTER 24 HOURS 04/11/18 11:58 Gram Stain - Final Sputum Induced Sputum Culture - Preliminary No growth. Lab Studies 04/12/18 04/12/18 04/12/18 Range/Units 10:45 07:49 06:15 WBC (4.5-11.0) 10^3/uL RBC (3.5-6.1) 10^6/uL Hgb (14.0-18.0) g/dL Hct (42.0-52.0) % MCV (80.0-105.0) fl MCH (25.0-35.0) pg MCHC (31.0-37.0) g/dl RDW (11.5-14.5) % Plt Count (120.0-450.0) 10^3/uL MPV (7.0-11.0) fl Gran % (50.0-68.0) % Lymph % (Auto) (22.0-35.0) % [place] % (Auto) (1.0-6.0) % Eos % (Auto) (1.5-5.0) % Baso % (Auto) (0.0-3.0) % Gran # (1.4-6.5) Lymph # (Auto) (1.2-3.4) [place] # (Auto) (0.1-0.6) Eos # (Auto) (0.0-0.7) Baso # (Auto) (0.0-2.0) K/mm3 PT (9.4-12.5) SECONDS INR APTT (25.1-36.5) Seconds pCO2 (35-45) mm/Hg pO2 41 46 (80-100) mm/Hg HCO3 (21-28) mmol/L ABG pH (7.35-7.45) ABG Total CO2 (22-28) mmol.L ABG O2 Saturation (95-98) % ABG Base Excess (-2.0-3.0) mmol/L ABG Potassium (3.6-5.2) mmol/L VBG pH 7.35 7.31 L (7.32-7.43) VBG pCO2 42.0 45.0 (40-60) VBG HCO3 23.2 22.7 (21-28) mmol/l VBG Total CO2 24.5 24.1 (22-28) mmol.L VBG O2 Sat (Calc) 78.5 H 83.4 H (40-65) % VBG Base Excess -2.4 L -3.7 L (0.0-2.0) mmol/L VBG Potassium 4.0 3.2 L (3.6-5.2) mmol/L Sodium 147.0 148.0 (132-148) mmol/L Chloride 115.0 H 117.0 H (98-107) mmol/L Glucose 240 H 227 H (75-110) mg/dl Lactate 1.7 2.0 (0.7-2.1) mmol/L FiO2 21.0 21.0 % Crit Value Called To Avis lee Crit Value Called By Elisa matt Blood Gas Notified Time 705 Potassium (3.6-5.0) mmol/L Carbon Dioxide (21-33) mmol/L Anion Gap (10-20) BUN (7-21) mg/dL Creatinine (0.8-1.5) mg/dl Est GFR ( Amer) Est GFR (Non-Af Amer) POC Glucose (mg/dL) 235 H (65-110) mg/dL Random Glucose (70-110) mg/dL Calcium (8.4-10.5) mg/dL Phosphorus (2.5-4.5) mg/dL Total Bilirubin (0.2-1.3) mg/dL AST (17-59) U/L ALT (7-56) U/L Alkaline Phosphatase (38-126) U/L Troponin I ng/mL NT-Pro-B Natriuret Pep (0-450) pg/mL Total Protein (5.8-8.3) g/dL Albumin (3.0-4.8) g/dL Globulin gm/dL Albumin/Globulin Ratio (1.1-1.8) Arterial Blood Potassium (3.6-5.2) mmol/L Venous Blood Potassium 4.0 3.2 L (3.6-5.2) mmol/L Urine Color (YELLOW) Urine Appearance (CLEAR) Urine pH (4.7-8.0) Ur Specific Bunch (1.005-1.035) Urine Protein (<30 mg/dL) mg/dL Urine Glucose (UA) (NEGATIVE) mg/dL Urine Ketones (NEGATIVE) mg/dL Urine Blood (NEGATIVE) Urine Nitrate (NEGATIVE) Urine Bilirubin (NEGATIVE) Urine Urobilinogen (<1 E.U./dL) E.U./dL Ur Leukocyte Esterase (NEGATIVE) Lizzeth/uL Urine RBC (0-2) /hpf Urine WBC (0-6) /hpf Ur Epithelial Cells (0-5) /hpf Urine Other /hpf Influenza Typ A,B (EIA) (NEGATIVE) 04/12/18 04/12/18 04/12/18 Range/Units 06:15 06:15 06:15 WBC 2.2 L D (4.5-11.0) 10^3/uL RBC 3.33 L (3.5-6.1) 10^6/uL Hgb 10.1 L D (14.0-18.0) g/dL Hct 31.4 L (42.0-52.0) % MCV 94.3 (80.0-105.0) fl MCH 30.3 (25.0-35.0) pg MCHC 32.2 (31.0-37.0) g/dl RDW 14.8 H (11.5-14.5) % Plt Count 55 L (120.0-450.0) 10^3/uL MPV 9.9 (7.0-11.0) fl Gran % 81.1 H (50.0-68.0) % Lymph % (Auto) 13.5 L (22.0-35.0) % [place] % (Auto) 5.4 (1.0-6.0) % Eos % (Auto) 0.0 L (1.5-5.0) % Baso % (Auto) 0.0 (0.0-3.0) % Gran # 1.81 (1.4-6.5) Lymph # (Auto) 0.3 L (1.2-3.4) [place] # (Auto) 0.1 (0.1-0.6) Eos # (Auto) 0.0 (0.0-0.7) Baso # (Auto) 0.00 (0.0-2.0) K/mm3 PT (9.4-12.5) SECONDS INR APTT 69.2 H (25.1-36.5) Seconds pCO2 (35-45) mm/Hg pO2 (80-100) mm/Hg HCO3 (21-28) mmol/L ABG pH (7.35-7.45) ABG Total CO2 (22-28) mmol.L ABG O2 Saturation (95-98) % ABG Base Excess (-2.0-3.0) mmol/L ABG Potassium (3.6-5.2) mmol/L VBG pH (7.32-7.43) VBG pCO2 (40-60) VBG HCO3 (21-28) mmol/l VBG Total CO2 (22-28) mmol.L VBG O2 Sat (Calc) (40-65) % VBG Base Excess (0.0-2.0) mmol/L VBG Potassium (3.6-5.2) mmol/L Sodium 149 H (132-148) mmol/L Chloride 122 H (98-107) mmol/L Glucose (75-110) mg/dl Lactate (0.7-2.1) mmol/L FiO2 % Crit Value Called To Crit Value Called By Blood Gas Notified Time Potassium 3.0 L (3.6-5.0) mmol/L Carbon Dioxide 22 (21-33) mmol/L Anion Gap 8 L (10-20) BUN 20 (7-21) mg/dL Creatinine 0.6 L (0.8-1.5) mg/dl Est GFR ( Amer) > 60 Est GFR (Non-Af Amer) > 60 POC Glucose (mg/dL) (65-110) mg/dL Random Glucose 192 H (70-110) mg/dL Calcium 6.7 L* (8.4-10.5) mg/dL Phosphorus (2.5-4.5) mg/dL Total Bilirubin 0.4 (0.2-1.3) mg/dL AST 52 (17-59) U/L ALT 38 (7-56) U/L Alkaline Phosphatase 45 (38-126) U/L Troponin I 3.99 H* D ng/mL NT-Pro-B Natriuret Pep (0-450) pg/mL Total Protein 4.0 L (5.8-8.3) g/dL Albumin 2.2 L (3.0-4.8) g/dL Globulin 1.9 gm/dL Albumin/Globulin Ratio 1.2 (1.1-1.8) Arterial Blood Potassium (3.6-5.2) mmol/L Venous Blood Potassium (3.6-5.2) mmol/L Urine Color (YELLOW) Urine Appearance (CLEAR) Urine pH (4.7-8.0) Ur Specific Bunch (1.005-1.035) Urine Protein (<30 mg/dL) mg/dL Urine Glucose (UA) (NEGATIVE) mg/dL Urine Ketones (NEGATIVE) mg/dL Urine Blood (NEGATIVE) Urine Nitrate (NEGATIVE) Urine Bilirubin (NEGATIVE) Urine Urobilinogen (<1 E.U./dL) E.U./dL Ur Leukocyte Esterase (NEGATIVE) Lizzeth/uL Urine RBC (0-2) /hpf Urine WBC (0-6) /hpf Ur Epithelial Cells (0-5) /hpf Urine Other /hpf Influenza Typ A,B (EIA) (NEGATIVE) 04/11/18 04/11/18 04/11/18 Range/Units 22:30 21:40 21:40 WBC (4.5-11.0) 10^3/uL RBC (3.5-6.1) 10^6/uL Hgb (14.0-18.0) g/dL Hct (42.0-52.0) % MCV (80.0-105.0) fl MCH (25.0-35.0) pg MCHC (31.0-37.0) g/dl RDW (11.5-14.5) % Plt Count (120.0-450.0) 10^3/uL MPV (7.0-11.0) fl Gran % (50.0-68.0) % Lymph % (Auto) (22.0-35.0) % [place] % (Auto) (1.0-6.0) % Eos % (Auto) (1.5-5.0) % Baso % (Auto) (0.0-3.0) % Gran # (1.4-6.5) Lymph # (Auto) (1.2-3.4) [place] # (Auto) (0.1-0.6) Eos # (Auto) (0.0-0.7) Baso # (Auto) (0.0-2.0) K/mm3 PT (9.4-12.5) SECONDS INR APTT 113.5 H* (25.1-36.5) Seconds pCO2 (35-45) mm/Hg pO2 (80-100) mm/Hg HCO3 (21-28) mmol/L ABG pH (7.35-7.45) ABG Total CO2 (22-28) mmol.L ABG O2 Saturation (95-98) % ABG Base Excess (-2.0-3.0) mmol/L ABG Potassium (3.6-5.2) mmol/L VBG pH (7.32-7.43) VBG pCO2 (40-60) VBG HCO3 (21-28) mmol/l VBG Total CO2 (22-28) mmol.L VBG O2 Sat (Calc) (40-65) % VBG Base Excess (0.0-2.0) mmol/L VBG Potassium (3.6-5.2) mmol/L Sodium (132-148) mmol/L Chloride (98-107) mmol/L Glucose (75-110) mg/dl Lactate (0.7-2.1) mmol/L FiO2 % Crit Value Called To Crit Value Called By Blood Gas Notified Time Potassium (3.6-5.0) mmol/L Carbon Dioxide (21-33) mmol/L Anion Gap (10-20) BUN (7-21) mg/dL Creatinine (0.8-1.5) mg/dl Est GFR ( Amer) Est GFR (Non-Af Amer) POC Glucose (mg/dL) 327 H (65-110) mg/dL Random Glucose (70-110) mg/dL Calcium (8.4-10.5) mg/dL Phosphorus (2.5-4.5) mg/dL Total Bilirubin (0.2-1.3) mg/dL AST (17-59) U/L ALT (7-56) U/L Alkaline Phosphatase (38-126) U/L Troponin I 7.18 H* D ng/mL NT-Pro-B Natriuret Pep (0-450) pg/mL Total Protein (5.8-8.3) g/dL Albumin (3.0-4.8) g/dL Globulin gm/dL Albumin/Globulin Ratio (1.1-1.8) Arterial Blood Potassium (3.6-5.2) mmol/L Venous Blood Potassium (3.6-5.2) mmol/L Urine Color (YELLOW) Urine Appearance (CLEAR) Urine pH (4.7-8.0) Ur Specific Bunch (1.005-1.035) Urine Protein (<30 mg/dL) mg/dL Urine Glucose (UA) (NEGATIVE) mg/dL Urine Ketones (NEGATIVE) mg/dL Urine Blood (NEGATIVE) Urine Nitrate (NEGATIVE) Urine Bilirubin (NEGATIVE) Urine Urobilinogen (<1 E.U./dL) E.U./dL Ur Leukocyte Esterase (NEGATIVE) Lizzeth/uL Urine RBC (0-2) /hpf Urine WBC (0-6) /hpf Ur Epithelial Cells (0-5) /hpf Urine Other /hpf Influenza Typ A,B (EIA) (NEGATIVE) 04/11/18 04/11/18 04/11/18 Range/Units 20:30 18:06 18:06 WBC (4.5-11.0) 10^3/uL RBC (3.5-6.1) 10^6/uL Hgb (14.0-18.0) g/dL Hct (42.0-52.0) % MCV (80.0-105.0) fl MCH (25.0-35.0) pg MCHC (31.0-37.0) g/dl RDW (11.5-14.5) % Plt Count (120.0-450.0) 10^3/uL MPV (7.0-11.0) fl Gran % (50.0-68.0) % Lymph % (Auto) (22.0-35.0) % [place] % (Auto) (1.0-6.0) % Eos % (Auto) (1.5-5.0) % Baso % (Auto) (0.0-3.0) % Gran # (1.4-6.5) Lymph # (Auto) (1.2-3.4) [place] # (Auto) (0.1-0.6) Eos # (Auto) (0.0-0.7) Baso # (Auto) (0.0-2.0) K/mm3 PT (9.4-12.5) SECONDS INR APTT (25.1-36.5) Seconds pCO2 (35-45) mm/Hg pO2 97 H (80-100) mm/Hg HCO3 (21-28) mmol/L ABG pH (7.35-7.45) ABG Total CO2 (22-28) mmol.L ABG O2 Saturation (95-98) % ABG Base Excess (-2.0-3.0) mmol/L ABG Potassium (3.6-5.2) mmol/L VBG pH 7.41 (7.32-7.43) VBG pCO2 38.0 L (40-60) VBG HCO3 24.1 (21-28) mmol/l VBG Total CO2 25.3 (22-28) mmol.L VBG O2 Sat (Calc) 98.1 H (40-65) % VBG Base Excess -0.3 L (0.0-2.0) mmol/L VBG Potassium 3.6 (3.6-5.2) mmol/L Sodium 141.0 (132-148) mmol/L Chloride 110.0 H (98-107) mmol/L Glucose 262 H (75-110) mg/dl Lactate 2.9 H (0.7-2.1) mmol/L FiO2 21.0 % Crit Value Called To Kathrine bermeo Crit Value Called By Atc Blood Gas Notified Time 1816 Potassium (3.6-5.0) mmol/L Carbon Dioxide (21-33) mmol/L Anion Gap (10-20) BUN (7-21) mg/dL Creatinine (0.8-1.5) mg/dl Est GFR ( Amer) Est GFR (Non-Af Amer) POC Glucose (mg/dL) (65-110) mg/dL Random Glucose (70-110) mg/dL Calcium (8.4-10.5) mg/dL Phosphorus (2.5-4.5) mg/dL Total Bilirubin (0.2-1.3) mg/dL AST (17-59) U/L ALT (7-56) U/L Alkaline Phosphatase (38-126) U/L Troponin I 9.60 H* D ng/mL NT-Pro-B Natriuret Pep (0-450) pg/mL Total Protein (5.8-8.3) g/dL Albumin (3.0-4.8) g/dL Globulin gm/dL Albumin/Globulin Ratio (1.1-1.8) Arterial Blood Potassium (3.6-5.2) mmol/L Venous Blood Potassium 3.6 (3.6-5.2) mmol/L Urine Color Shira (YELLOW) Urine Appearance Slight-cloudy (CLEAR) Urine pH 5.5 (4.7-8.0) Ur Specific Bunch >= 1.030 (1.005-1.035) Urine Protein 30 H (<30 mg/dL) mg/dL Urine Glucose (UA) 500 H (NEGATIVE) mg/dL Urine Ketones Negative (NEGATIVE) mg/dL Urine Blood Small H (NEGATIVE) Urine Nitrate Negative (NEGATIVE) Urine Bilirubin Negative (NEGATIVE) Urine Urobilinogen 0.2 (<1 E.U./dL) E.U./dL Ur Leukocyte Esterase Small H (NEGATIVE) Lizzeth/uL Urine RBC 10 - 15 H (0-2) /hpf Urine WBC 20 - 25 H (0-6) /hpf Ur Epithelial Cells 6 - 8 H (0-5) /hpf Urine Other Uyeast /hpf Influenza Typ A,B (EIA) (NEGATIVE) 04/11/18 04/11/18 04/11/18 Range/Units 17:11 16:10 12:30 WBC (4.5-11.0) 10^3/uL RBC (3.5-6.1) 10^6/uL Hgb (14.0-18.0) g/dL Hct (42.0-52.0) % MCV (80.0-105.0) fl MCH (25.0-35.0) pg MCHC (31.0-37.0) g/dl RDW (11.5-14.5) % Plt Count (120.0-450.0) 10^3/uL MPV (7.0-11.0) fl Gran % (50.0-68.0) % Lymph % (Auto) (22.0-35.0) % [place] % (Auto) (1.0-6.0) % Eos % (Auto) (1.5-5.0) % Baso % (Auto) (0.0-3.0) % Gran # (1.4-6.5) Lymph # (Auto) (1.2-3.4) [place] # (Auto) (0.1-0.6) Eos # (Auto) (0.0-0.7) Baso # (Auto) (0.0-2.0) K/mm3 PT (9.4-12.5) SECONDS INR APTT (25.1-36.5) Seconds pCO2 39 (35-45) mm/Hg pO2 56 H 65.0 L (80-100) mm/Hg HCO3 21.5 (21-28) mmol/L ABG pH 7.35 (7.35-7.45) ABG Total CO2 22.7 (22-28) mmol.L ABG O2 Saturation 94.4 L (95-98) % ABG Base Excess -3.8 L (-2.0-3.0) mmol/L ABG Potassium 3.6 (3.6-5.2) mmol/L VBG pH 7.42 (7.32-7.43) VBG pCO2 37.0 L (40-60) VBG HCO3 24.0 (21-28) mmol/l VBG Total CO2 25.1 (22-28) mmol.L VBG O2 Sat (Calc) 91.1 H (40-65) % VBG Base Excess -0.2 L (0.0-2.0) mmol/L VBG Potassium 3.9 (3.6-5.2) mmol/L Sodium 141.0 138.0 (132-148) mmol/L Chloride 105.0 108.0 H (98-107) mmol/L Glucose 269 H 138 H (75-110) mg/dl Lactate 5.3 H* 2.0 (0.7-2.1) mmol/L FiO2 21.0 40.0 % Crit Value Called To Emily gomez Crit Value Called By [facility] Blood Gas Notified Time 1625 Potassium (3.6-5.0) mmol/L Carbon Dioxide (21-33) mmol/L Anion Gap (10-20) BUN (7-21) mg/dL Creatinine (0.8-1.5) mg/dl Est GFR ( Amer) Est GFR (Non-Af Amer) POC Glucose (mg/dL) 231 H (65-110) mg/dL Random Glucose (70-110) mg/dL Calcium (8.4-10.5) mg/dL Phosphorus (2.5-4.5) mg/dL Total Bilirubin (0.2-1.3) mg/dL AST (17-59) U/L ALT (7-56) U/L Alkaline Phosphatase (38-126) U/L Troponin I ng/mL NT-Pro-B Natriuret Pep (0-450) pg/mL Total Protein (5.8-8.3) g/dL Albumin (3.0-4.8) g/dL Globulin gm/dL Albumin/Globulin Ratio (1.1-1.8) Arterial Blood Potassium 3.6 (3.6-5.2) mmol/L Venous Blood Potassium 3.9 (3.6-5.2) mmol/L Urine Color (YELLOW) Urine Appearance (CLEAR) Urine pH (4.7-8.0) Ur Specific Bunch (1.005-1.035) Urine Protein (<30 mg/dL) mg/dL Urine Glucose (UA) (NEGATIVE) mg/dL Urine Ketones (NEGATIVE) mg/dL Urine Blood (NEGATIVE) Urine Nitrate (NEGATIVE) Urine Bilirubin (NEGATIVE) Urine Urobilinogen (<1 E.U./dL) E.U./dL Ur Leukocyte Esterase (NEGATIVE) Lizzeth/uL Urine RBC (0-2) /hpf Urine WBC (0-6) /hpf Ur Epithelial Cells (0-5) /hpf Urine Other /hpf Influenza Typ A,B (EIA) (NEGATIVE) 04/11/18 04/11/18 04/11/18 Range/Units 11:58 11:30 11:30 WBC (4.5-11.0) 10^3/uL RBC (3.5-6.1) 10^6/uL Hgb (14.0-18.0) g/dL Hct (42.0-52.0) % MCV (80.0-105.0) fl MCH (25.0-35.0) pg MCHC (31.0-37.0) g/dl RDW (11.5-14.5) % Plt Count (120.0-450.0) 10^3/uL MPV (7.0-11.0) fl Gran % (50.0-68.0) % Lymph % (Auto) (22.0-35.0) % [place] % (Auto) (1.0-6.0) % Eos % (Auto) (1.5-5.0) % Baso % (Auto) (0.0-3.0) % Gran # (1.4-6.5) Lymph # (Auto) (1.2-3.4) [place] # (Auto) (0.1-0.6) Eos # (Auto) (0.0-0.7) Baso # (Auto) (0.0-2.0) K/mm3 PT 13.7 H (9.4-12.5) SECONDS INR 1.19 APTT 33.3 (25.1-36.5) Seconds pCO2 (35-45) mm/Hg pO2 (80-100) mm/Hg HCO3 (21-28) mmol/L ABG pH (7.35-7.45) ABG Total CO2 (22-28) mmol.L ABG O2 Saturation (95-98) % ABG Base Excess (-2.0-3.0) mmol/L ABG Potassium (3.6-5.2) mmol/L VBG pH (7.32-7.43) VBG pCO2 (40-60) VBG HCO3 (21-28) mmol/l VBG Total CO2 (22-28) mmol.L VBG O2 Sat (Calc) (40-65) % VBG Base Excess (0.0-2.0) mmol/L VBG Potassium (3.6-5.2) mmol/L Sodium (132-148) mmol/L Chloride (98-107) mmol/L Glucose (75-110) mg/dl Lactate (0.7-2.1) mmol/L FiO2 % Crit Value Called To Crit Value Called By Blood Gas Notified Time Potassium (3.6-5.0) mmol/L Carbon Dioxide (21-33) mmol/L Anion Gap (10-20) BUN (7-21) mg/dL Creatinine (0.8-1.5) mg/dl Est GFR ( Amer) Est GFR (Non-Af Amer) POC Glucose (mg/dL) (65-110) mg/dL Random Glucose (70-110) mg/dL Calcium (8.4-10.5) mg/dL Phosphorus 2.9 (2.5-4.5) mg/dL Total Bilirubin (0.2-1.3) mg/dL AST (17-59) U/L ALT (7-56) U/L Alkaline Phosphatase (38-126) U/L Troponin I ng/mL NT-Pro-B Natriuret Pep (0-450) pg/mL Total Protein (5.8-8.3) g/dL Albumin (3.0-4.8) g/dL Globulin gm/dL Albumin/Globulin Ratio (1.1-1.8) Arterial Blood Potassium (3.6-5.2) mmol/L Venous Blood Potassium (3.6-5.2) mmol/L Urine Color (YELLOW) Urine Appearance (CLEAR) Urine pH (4.7-8.0) Ur Specific Bunch (1.005-1.035) Urine Protein (<30 mg/dL) mg/dL Urine Glucose (UA) (NEGATIVE) mg/dL Urine Ketones (NEGATIVE) mg/dL Urine Blood (NEGATIVE) Urine Nitrate (NEGATIVE) Urine Bilirubin (NEGATIVE) Urine Urobilinogen (<1 E.U./dL) E.U./dL Ur Leukocyte Esterase (NEGATIVE) Lizzeth/uL Urine RBC (0-2) /hpf Urine WBC (0-6) /hpf Ur Epithelial Cells (0-5) /hpf Urine Other /hpf Influenza Typ A,B (EIA) Pos for influenza a H (NEGATIVE) 04/11/18 Range/Units 11:30 WBC (4.5-11.0) 10^3/uL RBC (3.5-6.1) 10^6/uL Hgb (14.0-18.0) g/dL Hct (42.0-52.0) % MCV (80.0-105.0) fl MCH (25.0-35.0) pg MCHC (31.0-37.0) g/dl RDW (11.5-14.5) % Plt Count (120.0-450.0) 10^3/uL MPV (7.0-11.0) fl Gran % (50.0-68.0) % Lymph % (Auto) (22.0-35.0) % [place] % (Auto) (1.0-6.0) % Eos % (Auto) (1.5-5.0) % Baso % (Auto) (0.0-3.0) % Gran # (1.4-6.5) Lymph # (Auto) (1.2-3.4) [place] # (Auto) (0.1-0.6) Eos # (Auto) (0.0-0.7) Baso # (Auto) (0.0-2.0) K/mm3 PT (9.4-12.5) SECONDS INR APTT (25.1-36.5) Seconds pCO2 (35-45) mm/Hg pO2 (80-100) mm/Hg HCO3 (21-28) mmol/L ABG pH (7.35-7.45) ABG Total CO2 (22-28) mmol.L ABG O2 Saturation (95-98) % ABG Base Excess (-2.0-3.0) mmol/L ABG Potassium (3.6-5.2) mmol/L VBG pH (7.32-7.43) VBG pCO2 (40-60) VBG HCO3 (21-28) mmol/l VBG Total CO2 (22-28) mmol.L VBG O2 Sat (Calc) (40-65) % VBG Base Excess (0.0-2.0) mmol/L VBG Potassium (3.6-5.2) mmol/L Sodium (132-148) mmol/L Chloride (98-107) mmol/L Glucose (75-110) mg/dl Lactate (0.7-2.1) mmol/L FiO2 % Crit Value Called To Crit Value Called By Blood Gas Notified Time Potassium (3.6-5.0) mmol/L Carbon Dioxide (21-33) mmol/L Anion Gap (10-20) BUN (7-21) mg/dL Creatinine (0.8-1.5) mg/dl Est GFR ( Amer) Est GFR (Non-Af Amer) POC Glucose (mg/dL) (65-110) mg/dL Random Glucose (70-110) mg/dL Calcium (8.4-10.5) mg/dL Phosphorus (2.5-4.5) mg/dL Total Bilirubin (0.2-1.3) mg/dL AST (17-59) U/L ALT (7-56) U/L Alkaline Phosphatase (38-126) U/L Troponin I 2.85 H* D ng/mL NT-Pro-B Natriuret Pep 467 H (0-450) pg/mL Total Protein (5.8-8.3) g/dL Albumin (3.0-4.8) g/dL Globulin gm/dL Albumin/Globulin Ratio (1.1-1.8) Arterial Blood Potassium (3.6-5.2) mmol/L Venous Blood Potassium (3.6-5.2) mmol/L Urine Color (YELLOW) Urine Appearance (CLEAR) Urine pH (4.7-8.0) Ur Specific Bunch (1.005-1.035) Urine Protein (<30 mg/dL) mg/dL Urine Glucose (UA) (NEGATIVE) mg/dL Urine Ketones (NEGATIVE) mg/dL Urine Blood (NEGATIVE) Urine Nitrate (NEGATIVE) Urine Bilirubin (NEGATIVE) Urine Urobilinogen (<1 E.U./dL) E.U./dL Ur Leukocyte Esterase (NEGATIVE) Lizzeth/uL Urine RBC (0-2) /hpf Urine WBC (0-6) /hpf Ur Epithelial Cells (0-5) /hpf Urine Other /hpf Influenza Typ A,B (EIA) (NEGATIVE) Laboratory Results - last 24 hr 04/11/18 04/11/18 04/11/18 11:30 11:30 11:30 WBC RBC Hgb Hct MCV MCH MCHC RDW Plt Count MPV Gran % Lymph % (Auto) [place] % (Auto) Eos % (Auto) Baso % (Auto) Gran # Lymph # (Auto) [place] # (Auto) Eos # (Auto) Baso # (Auto) PT 13.7 H INR 1.19 APTT 33.3 pCO2 pO2 HCO3 ABG pH ABG Total CO2 ABG O2 Saturation ABG Base Excess ABG Potassium VBG pH VBG pCO2 VBG HCO3 VBG Total CO2 VBG O2 Sat (Calc) VBG Base Excess VBG Potassium Sodium Chloride Glucose Lactate FiO2 Crit Value Called To Crit Value Called By Blood Gas Notified Time Potassium Carbon Dioxide Anion Gap BUN Creatinine Est GFR ( Amer) Est GFR (Non-Af Amer) POC Glucose (mg/dL) Random Glucose Calcium Phosphorus 2.9 Total Bilirubin AST ALT Alkaline Phosphatase Troponin I 2.85 H* D NT-Pro-B Natriuret Pep 467 H Total Protein Albumin Globulin Albumin/Globulin Ratio Arterial Blood Potassium Venous Blood Potassium Urine Color Urine Appearance Urine pH Ur Specific Bunch Urine Protein Urine Glucose (UA) Urine Ketones Urine Blood Urine Nitrate Urine Bilirubin Urine Urobilinogen Ur Leukocyte Esterase Urine RBC Urine WBC Ur Epithelial Cells Urine Other Influenza Typ A,B (EIA) 04/11/18 04/11/18 04/11/18 11:58 12:30 16:10 WBC RBC Hgb Hct MCV MCH MCHC RDW Plt Count MPV Gran % Lymph % (Auto) [place] % (Auto) Eos % (Auto) Baso % (Auto) Gran # Lymph # (Auto) [place] # (Auto) Eos # (Auto) Baso # (Auto) PT INR APTT pCO2 39 pO2 65.0 L 56 H HCO3 21.5 ABG pH 7.35 ABG Total CO2 22.7 ABG O2 Saturation 94.4 L ABG Base Excess -3.8 L ABG Potassium 3.6 VBG pH 7.42 VBG pCO2 37.0 L VBG HCO3 24.0 VBG Total CO2 25.1 VBG O2 Sat (Calc) 91.1 H VBG Base Excess -0.2 L VBG Potassium 3.9 Sodium 138.0 141.0 Chloride 108.0 H 105.0 Glucose 138 H 269 H Lactate 2.0 5.3 H* FiO2 40.0 21.0 Crit Value Called To Emily gomez Crit Value Called By Atc Blood Gas Notified Time 1625 Potassium Carbon Dioxide Anion Gap BUN Creatinine Est GFR ( Amer) Est GFR (Non-Af Amer) POC Glucose (mg/dL) Random Glucose Calcium Phosphorus Total Bilirubin AST ALT Alkaline Phosphatase Troponin I NT-Pro-B Natriuret Pep Total Protein Albumin Globulin Albumin/Globulin Ratio Arterial Blood Potassium 3.6 Venous Blood Potassium 3.9 Urine Color Urine Appearance Urine pH Ur Specific Bunch Urine Protein Urine Glucose (UA) Urine Ketones Urine Blood Urine Nitrate Urine Bilirubin Urine Urobilinogen Ur Leukocyte Esterase Urine RBC Urine WBC Ur Epithelial Cells Urine Other Influenza Typ A,B (EIA) Pos for influenza a H 04/11/18 04/11/18 04/11/18 17:11 18:06 18:06 WBC RBC Hgb Hct MCV MCH MCHC RDW Plt Count MPV Gran % Lymph % (Auto) [place] % (Auto) Eos % (Auto) Baso % (Auto) Gran # Lymph # (Auto) [place] # (Auto) Eos # (Auto) Baso # (Auto) PT INR APTT pCO2 pO2 97 H HCO3 ABG pH ABG Total CO2 ABG O2 Saturation ABG Base Excess ABG Potassium VBG pH 7.41 VBG pCO2 38.0 L VBG HCO3 24.1 VBG Total CO2 25.3 VBG O2 Sat (Calc) 98.1 H VBG Base Excess -0.3 L VBG Potassium 3.6 Sodium 141.0 Chloride 110.0 H Glucose 262 H Lactate 2.9 H FiO2 21.0 Crit Value Called To Kathrine bermeo Crit Value Called By [facility] Blood Gas Notified Time 1816 Potassium Carbon Dioxide Anion Gap BUN Creatinine Est GFR ( Amer) Est GFR (Non-Af Amer) POC Glucose (mg/dL) 231 H Random Glucose Calcium Phosphorus Total Bilirubin AST ALT Alkaline Phosphatase Troponin I 9.60 H* D NT-Pro-B Natriuret Pep Total Protein Albumin Globulin Albumin/Globulin Ratio Arterial Blood Potassium Venous Blood Potassium 3.6 Urine Color Urine Appearance Urine pH Ur Specific Bunch Urine Protein Urine Glucose (UA) Urine Ketones Urine Blood Urine Nitrate Urine Bilirubin Urine Urobilinogen Ur Leukocyte Esterase Urine RBC Urine WBC Ur Epithelial Cells Urine Other Influenza Typ A,B (EIA) 04/11/18 04/11/18 04/11/18 20:30 21:40 21:40 WBC RBC Hgb Hct MCV MCH MCHC RDW Plt Count MPV Gran % Lymph % (Auto) [place] % (Auto) Eos % (Auto) Baso % (Auto) Gran # Lymph # (Auto) [place] # (Auto) Eos # (Auto) Baso # (Auto) PT INR APTT 113.5 H* pCO2 pO2 HCO3 ABG pH ABG Total CO2 ABG O2 Saturation ABG Base Excess ABG Potassium VBG pH VBG pCO2 VBG HCO3 VBG Total CO2 VBG O2 Sat (Calc) VBG Base Excess VBG Potassium Sodium Chloride Glucose Lactate FiO2 Crit Value Called To Crit Value Called By Blood Gas Notified Time Potassium Carbon Dioxide Anion Gap BUN Creatinine Est GFR ( Amer) Est GFR (Non-Af Amer) POC Glucose (mg/dL) Random Glucose Calcium Phosphorus Total Bilirubin AST ALT Alkaline Phosphatase Troponin I 7.18 H* D NT-Pro-B Natriuret Pep Total Protein Albumin Globulin Albumin/Globulin Ratio Arterial Blood Potassium Venous Blood Potassium Urine Color Shira Urine Appearance Slight-cloudy Urine pH 5.5 Ur Specific Bunch >= 1.030 Urine Protein 30 H Urine Glucose (UA) 500 H Urine Ketones Negative Urine Blood Small H Urine Nitrate Negative Urine Bilirubin Negative Urine Urobilinogen 0.2 Ur Leukocyte Esterase Small H Urine RBC 10 - 15 H Urine WBC 20 - 25 H Ur Epithelial Cells 6 - 8 H Urine Other Uyeast Influenza Typ A,B (EIA) 04/11/18 04/12/18 04/12/18 22:30 06:15 06:15 WBC 2.2 L D RBC 3.33 L Hgb 10.1 L D Hct 31.4 L MCV 94.3 MCH 30.3 MCHC 32.2 RDW 14.8 H Plt Count 55 L MPV 9.9 Gran % 81.1 H Lymph % (Auto) 13.5 L [place] % (Auto) 5.4 Eos % (Auto) 0.0 L Baso % (Auto) 0.0 Gran # 1.81 Lymph # (Auto) 0.3 L [place] # (Auto) 0.1 Eos # (Auto) 0.0 Baso # (Auto) 0.00 PT INR APTT 69.2 H pCO2 pO2 HCO3 ABG pH ABG Total CO2 ABG O2 Saturation ABG Base Excess ABG Potassium VBG pH VBG pCO2 VBG HCO3 VBG Total CO2 VBG O2 Sat (Calc) VBG Base Excess VBG Potassium Sodium Chloride Glucose Lactate FiO2 Crit Value Called To Crit Value Called By Blood Gas Notified Time Potassium Carbon Dioxide Anion Gap BUN Creatinine Est GFR ( Amer) Est GFR (Non-Af Amer) POC Glucose (mg/dL) 327 H Random Glucose Calcium Phosphorus Total Bilirubin AST ALT Alkaline Phosphatase Troponin I NT-Pro-B Natriuret Pep Total Protein Albumin Globulin Albumin/Globulin Ratio Arterial Blood Potassium Venous Blood Potassium Urine Color Urine Appearance Urine pH Ur Specific Bunch Urine Protein Urine Glucose (UA) Urine Ketones Urine Blood Urine Nitrate Urine Bilirubin Urine Urobilinogen Ur Leukocyte Esterase Urine RBC Urine WBC Ur Epithelial Cells Urine Other Influenza Typ A,B (EIA) 04/12/18 04/12/18 04/12/18 06:15 06:15 07:49 WBC RBC Hgb Hct MCV MCH MCHC RDW Plt Count MPV Gran % Lymph % (Auto) [place] % (Auto) Eos % (Auto) Baso % (Auto) Gran # Lymph # (Auto) [place] # (Auto) Eos # (Auto) Baso # (Auto) PT INR APTT pCO2 pO2 46 HCO3 ABG pH ABG Total CO2 ABG O2 Saturation ABG Base Excess ABG Potassium VBG pH 7.31 L VBG pCO2 45.0 VBG HCO3 22.7 VBG Total CO2 24.1 VBG O2 Sat (Calc) 83.4 H VBG Base Excess -3.7 L VBG Potassium 3.2 L Sodium 149 H 148.0 Chloride 122 H 117.0 H Glucose 227 H Lactate 2.0 FiO2 21.0 Crit Value Called To Avis lee Crit Value Called By Elisa matt Blood Gas Notified Time 705 Potassium 3.0 L Carbon Dioxide 22 Anion Gap 8 L BUN 20 Creatinine 0.6 L Est GFR ( Amer) > 60 Est GFR (Non-Af Amer) > 60 POC Glucose (mg/dL) 235 H Random Glucose 192 H Calcium 6.7 L* Phosphorus Total Bilirubin 0.4 AST 52 ALT 38 Alkaline Phosphatase 45 Troponin I 3.99 H* D NT-Pro-B Natriuret Pep Total Protein 4.0 L Albumin 2.2 L Globulin 1.9 Albumin/Globulin Ratio 1.2 Arterial Blood Potassium Venous Blood Potassium 3.2 L Urine Color Urine Appearance Urine pH Ur Specific Bunch Urine Protein Urine Glucose (UA) Urine Ketones Urine Blood Urine Nitrate Urine Bilirubin Urine Urobilinogen Ur Leukocyte Esterase Urine RBC Urine WBC Ur Epithelial Cells Urine Other Influenza Typ A,B (EIA) 04/12/18 10:45 WBC RBC Hgb Hct MCV MCH MCHC RDW Plt Count MPV Gran % Lymph % (Auto) [place] % (Auto) Eos % (Auto) Baso % (Auto) Gran # Lymph # (Auto) [place] # (Auto) Eos # (Auto) Baso # (Auto) PT INR APTT pCO2 pO2 41 HCO3 ABG pH ABG Total CO2 ABG O2 Saturation ABG Base Excess ABG Potassium VBG pH 7.35 VBG pCO2 42.0 VBG HCO3 23.2 VBG Total CO2 24.5 VBG O2 Sat (Calc) 78.5 H VBG Base Excess -2.4 L VBG Potassium 4.0 Sodium 147.0 Chloride 115.0 H Glucose 240 H Lactate 1.7 FiO2 21.0 Crit Value Called To Crit Value Called By Blood Gas Notified Time Potassium Carbon Dioxide Anion Gap BUN Creatinine Est GFR ( Amer) Est GFR (Non-Af Amer) POC Glucose (mg/dL) Random Glucose Calcium Phosphorus Total Bilirubin AST ALT Alkaline Phosphatase Troponin I NT-Pro-B Natriuret Pep Total Protein Albumin Globulin Albumin/Globulin Ratio Arterial Blood Potassium Venous Blood Potassium 4.0 Urine Color Urine Appearance Urine pH Ur Specific Bunch Urine Protein Urine Glucose (UA) Urine Ketones Urine Blood Urine Nitrate Urine Bilirubin Urine Urobilinogen Ur Leukocyte Esterase Urine RBC Urine WBC Ur Epithelial Cells Urine Other Influenza Typ A,B (EIA) Radiology Impressions: Radiology Impressions Chest X-Ray 04/11/18 11:33 IMPRESSION: Bibasilar perihilar infiltrates. EKG/Cardiology Studies: Cardiology / EKG Studies 04/11/18 11:32 ELECTROCARDIOGRAM Stat Comment: Reason For Exam: SOB Assessment/Plan - Assessment and Plan (Free Text) Assessment: Patient seen and examined on rounds, with resident, agree with note with gene hill additions/exceptions: Patient is 77yo male with PMH of Alzheimer's dementia, HLD, CHF with EF of 50% in 12/2017, HLD, CAD, R lower lobe pneumonia, c. albicans fungemia, hemolytic anemia, prostate cancer s/p brachytherapy brought in by [facility] for fever and SOB, FLU PNA, and NSTEMI. Intially patient was on high flow O2 50%, 50LPM, currently on 4LNC< sat 95%, comfortable in NAD, doing well. Labs, imaging, chart reviewed Troponing downtrending, on heparin drip; cardiology following. FLU PNA Alzheimers HLD CHF CAD Prostate CA Demenatia Recommend: - supp o2 as needed, goal sat 90%, duonebs PRN, IS - Abx as per ID< vanco, MErrem, Doxy, Tamiflu - follow up cultures, rpcal - ASA, Statin, Plavix, Heparin drip - ECHO - Cardiology follow up - FS control - DC IVF - GI ppx - DVT ppx - Stable, transfer to telemetry
[2018-04-12] MEDS: Albuterol-Ipratrop 3 mg / 0.5 (3 ml) UD IH SCH ×3 (07:28→19:35)
[2018-04-12 08:16] LABS: ALB/GLOB RATIO 1.2 (1.1-1.8); ALBUMIN 2.2 g/dL (3.0-4.8); ALT/SGPT 38 U/L (7-56); AST/SGOT 52 U/L (17-59); BLOOD UREA NITROGEN 20 mg/dL (7-21); CALCIUM 6.7 mg/dL (8.4-10.5); GFR NON-AFRICAN AMERICAN > 60; TROPONIN I 3.99 ng/mL
[2018-04-12] MEDS: Insulin Lispro (humaLOG) MEDIUM Coverage SC SCH ×4 (08:30→22:16)
--- NOTE | 2018-04-12 09:06 | CON ---
PULMONARY CONSULTATION DATE OF CONSULTATION: 04/12/2018 REASON FOR PULMONARY CONSULTATION: Pneumonia. REFERRING PHYSICIAN: Sean Nicholson DO History is obtained via extensive discussion with the ICU nurse. I have also reviewed the chart at length. The patient is not an adequate historian. HISTORY OF PRESENT ILLNESS: The patient is a chronically ill 77-year-old male, [place] [facility] resident, with past medical history significant for advanced Alzheimer's dementia, congestive heart failure, coronary artery disease, hypertension, recurrent pneumonias (probable aspiration), who was transferred from the [place] [facility] yesterday - because of shortness of breath, cough, and fevers for 2 days. In the emergency room, the patient was noted to have an acute pneumonia. He was thus admitted for additional evaluation. The patient is mildly short of breath this morning, but in no acute distress. He does have a history of mild dyspnea on exertion. The night nurse also confirms a minimal cough with no significant sputum production. There is no history of chest pain, coughing up of blood, or chest pain - brought on with deep respirations. The patient did present to [facility] with high fevers (102.9). No history of chills or infectious exposure. No history of night sweats, weight loss or appetite change prior to the above events. No history of calf pains. No history of syncope or diaphoresis. No history of recent travel or trauma. FAMILY HISTORY: No inheritable diseases. SOCIAL HISTORY: Positive for former tobacco usage. No alcohol. HOME MEDICATIONS: Carbidopa, Phenergan, Protonix, Levaquin, Robitussin, Singulair, Synthroid, Aricept, Lipitor, aspirin. ALLERGIES: CEFTRIAXONE. REVIEW OF SYSTEMS: No history of nausea, vomiting or diarrhea. No acute urinary symptoms. No new musculoskeletal complaints. Rest of the review of systems is negative. PHYSICAL EXAMINATION: GENERAL: The patient appears comfortable this morning. He is mildly short of breath, but in no acute distress. He is not using accessory muscles for breathing. VITAL SIGNS: Temperature is 97.3, pulse on the monitor is 68, respiratory rate 22, blood pressure 90/53. Oxygen saturation on nasal cannula is 99-100%. HEENT: Normocephalic, atraumatic. No JVD. CARDIOVASCULAR: Positive S1, S2. No S3 gallop. LUNGS: Crackles at both bases. Minimal bilateral rhonchi. No wheezing. EXTREMITIES: Mild edema. No cyanosis, no clubbing. Calves are nontender to palpation. GI: Abdomen is soft, nontender, nondistended. Bowel sounds are positive. SKIN: No acute rash. NEUROLOGIC: Exam limited at the present time. PERTINENT LABORATORY DATA: Chest x-ray was done yesterday and reviewed. There are bilateral lower lobe infiltrates noted. CBC: White count 5.0K, hemoglobin 13.8, hematocrit 41.9, platelets of 92,000. Complete metabolic profile: BUN 25, glucose 221, troponin 2.85. B-type natriuretic peptide 467. Rest of the metabolic profile is within normal limits. Peak troponin - 9.60. Serologies are positive for influenza A. IMPRESSION: 1. Bilateral lower lobe pneumonia. 2. [id number] myocardial infarction. 3. Influenza A positivity. 4. Mild bronchospasm. 5. Mild anemia. PLAN: Again, I did discuss the case with the ICU nurse at length. I have also reviewed the chart at length. The patient is not an adequate historian. The patient is a chronically ill 77-year-old male, who was transferred from the [place] [facility] - with a 2-day history of worsening pulmonary symptoms and fevers. In the emergency room, the patient was diagnosed with acute pneumonia and thus admitted. I did review the chest x-ray as above. The chest x-ray does reveal bilateral lower lobe infiltrates. Pancultures have been ordered and will analyzed when feasible. Dr. Goode (Infectious Disease) has been called on the case for antibiotic usage. I have also reviewed the laboratory data. A significant rise in troponin is noted - consistent with a myocardial infarction. Dr. Landry (Cardiology) has been called on the case for additional management. On physical exam, there is no significant bronchospasm noted. In addition, there is no significant alveolar-arterial gradient. I will continue the current nebulizer treatments for now. The patient has also been placed on low-dose intravenous steroids. Again, I did discuss the case with the night nurse at length. Compared to the admission status, the patient is clinically improved this morning. I will discuss the above with the entire ICU team in the next few moments. I will also discuss the above with Dr. Nicholson later this morning. Thank you very much for this pulmonary consultation. Medardo Whittaker MD [facility]
[2018-04-12] MEDS: MethylPREDNISolone 40 mg Vial IVP SCH ×2 (09:24→21:22)
[2018-04-12] MEDS: levoFLOXacin 750 mg in D5W 750 MG/150 ML BAG IVPB SCH (09:24)
[2018-04-12] MEDS: Levothyroxine 75 MCG TAB PO SCH (09:24)
[2018-04-12] MEDS: Vancomycin 1gm in NS 250ml 1 GM/250 ML BAG IVPB SCH ×2 (09:25→21:25)
--- NOTE | 2018-04-12 10:50 | CP.PCM.CON ---
<Wyatt Griffin - Last Filed: 04/12/18 12:33> History of Present Illness - History of Present Illness History of Present Illness: Infectious disease consult note: 77 year old male with PMH of Alzheimer's dementia, HLD, CHF with EF of 50% in 12/2017, HLD, CAD, R lower lobe pneumonia, c. albicans fungemia, hemolytic anemia, and prostate cancer, brought in by [facility] for fever and SOB. Patient is non verbal due to severe dementia therefore HPI limited to prior notes and nursing staff. Chacorta was reportedly was more consfused and developed a bronchitis a few days ago which he was treated with levaquin. Patient is reportedly currently at his baseline. Of note on 12/2017 and was treated for multifocal pneumonia, severe sepsis and NSTEMI. 12 point ROS limited due to patient's nonverbal status. PMH: Alzheimer's dementia, HLD, CHF with EF of 50% in 12/2017, HLD, CAD, R lower lobe pneumonia, c. albicans fungemia, hemolytic anemia, prostate cancer ALL: Ceftriaxone SH: Former cigar smoker, quit 30 years ago, no EtOH or illicit drug use Sx: abdominal surgery? FH: Mother - ovarian cancer and colon cancer; Father - Aortic aneurysm Meds: refer to [facility] Past Patient History - Infectious Disease Hx of Infectious Diseases: None - Past Social History Smoking Status: Former Smoker - CARDIAC Hx Cardiac Disorders: Yes Hx Congestive Heart Failure: Yes - PULMONARY Hx Chronic Obstructive Pulmonary Disease (COPD): Yes Hx Pneumonia: Yes - NEUROLOGICAL HX Cerebrovascular Accident: No Hx Dementia: Yes - HEENT Hx HEENT Problems: No Hx Blind: No Hx Cataracts: No Hx Deafness: No Hx Difficulty Chewing: No Hx Epistaxis: No Hx Glaucoma: No Hx Macular Degeneration: No - RENAL Hx Renal Failure: Yes - ENDOCRINE/METABOLIC Hx Diabetes Mellitus Type 2: Yes - HEMATOLOGICAL/ONCOLOGICAL Hx Cancer: No - INTEGUMENTARY Hx Dermatological Problems: Yes Hx Basil Cell: No Hx Eczema: Yes Hx Melanoma: Yes Hx Psoriasis: No Hx Squamous Cell: No - MUSCULOSKELETAL/RHEUMATOLOGICAL Hx Arthritis: No - GASTROINTESTINAL Hx Gastroesophageal Reflux: Yes - GENITOURINARY/GYNECOLOGICAL Hx Hematuria: No Hx Incontinence: Yes Hx Prostate Problems: Yes Hx Sexually Transmitted Disorders: No Hx Urinary Tract Infection: Yes - PSYCHIATRIC Hx Psychophysiologic Disorder: No Hx Anxiety: No Hx Bipolar Disorder: No Hx Depression: No Hx Emotional Abuse: No Hx Hallucinations: No Hx Panic Symptoms: No Hx Post Traumatic Stress Disorder: No Hx Psychosis: No Hx Physical Abuse: No Hx Schizophrenia: No Hx Sexual Abuse: No Hx Substance Use: No - SURGICAL HISTORY Hx Mastectomy: No - ANESTHESIA Hx Anesthesia: No Hx Anesthesia Reactions: No Hx Malignant Hyperthermia: No Meds Allergies/Adverse Reactions: Allergies Allergy/AdvReac Type Severity Reaction Status Date / Time ceftriaxone sodium Allergy RASH Verified 04/11/18 13:05 [From Rocephin] - Medications Medications: Current Medications Acetaminophen (Tylenol 325 Mg Supp) 325 mg RC Q4H PRN PRN Reason: Fever >100.4 F Last Admin: 04/11/18 16:34 Dose: 325 mg Albuterol/Ipratropium (Duoneb 3 Mg/0.5 Mg (3 Ml) Ud) 3 ml IH [id number] YOLANDA Last Admin: 04/12/18 07:28 Dose: 3 ml Albuterol/Ipratropium (Duoneb 3 Mg/0.5 Mg (3 Ml) Ud) 3 ml IH Q2H PRN PRN Reason: Shortness of Breath Aspirin (Ecotrin) 81 mg PO DAILY YOLANDA Last Admin: 04/12/18 09:23 Dose: 81 mg Atorvastatin Calcium (Lipitor) 40 mg PO HS YOLANDA Last Admin: 04/11/18 21:36 Dose: 40 mg Donepezil HCl (Aricept) 10 mg PO HS YOLANDA Heparin Sodium/Sodium Chloride (Heparin 59902 Units/250ml 1/2 Normal Saline) 25,000 units in 250 mls @ 7.495 mls/hr IV .Q24H YOLANDA; Protocol Last Titration: 04/11/18 23:17 Dose: 8.96 units/kg/hr, 5.6 mls/hr Vancomycin HCl (Vancomycin 1gm) 1 gm in 250 mls @ 167 mls/hr IVPB Q12H YOLANDA; Protocol Last Admin: 04/12/18 09:25 Dose: 167 mls/hr Meropenem (Merrem Iv 1 Gm Premix) 1 gm in 50 mls @ 100 mls/hr IVPB Q8 YOLANDA; Protocol Last Admin: 04/12/18 05:18 Dose: 100 mls/hr Levofloxacin/Dextrose (Levaquin 750mg) 750 mg in 150 mls @ 100 mls/hr IVPB DAILY YOLANDA; Protocol Last Admin: 04/12/18 09:24 Dose: 100 mls/hr Potassium Chloride (Potassium Chloride 10 Meq/100 Ml) 10 meq in 100 mls @ 50 mls/hr IVPB Q2H YOLANDA Stop: 04/12/18 13:14 Last Admin: 04/12/18 09:23 Dose: 50 mls/hr Insulin Human Lispro (Humalog Med) 0 units SC ACHS YOLANDA; Protocol Last Admin: 04/12/18 08:30 Dose: Not Given Levothyroxine Sodium (Synthroid) 75 mcg PO DAILY [facility] Last Admin: 04/12/18 09:24 Dose: 75 mcg Methylprednisolone (Solu-Medrol) 20 mg IVP Q12 [facility] Montelukast Sodium (Singulair) 10 mg PO DAILY [facility] Last Admin: 04/12/18 09:24 Dose: 10 mg Oseltamivir Phosphate (Tamiflu Cap) 75 mg PO BID [facility]; Protocol Stop: 04/16/18 18:01 Last Admin: 04/12/18 09:24 Dose: 75 mg Pantoprazole Sodium (Protonix Inj) 40 mg IVP DAILY [facility] Last Admin: 04/12/18 09:23 Dose: 40 mg Tamsulosin HCl (Flomax) 0.4 mg PO DAILY [facility] Last Admin: 04/12/18 09:23 Dose: 0.4 mg Results - Vital Signs Recent Vital Signs: Last Vital Signs Temp 97.5 F L 04/12/18 07:40 Pulse 49 L 04/12/18 07:47 Resp 25 H 04/12/18 07:40 BP 90/55 L 04/12/18 07:00 Pulse Ox 100 04/12/18 07:40 - Labs Result Diagrams: 04/12/18 06:15 04/12/18 06:15 Labs: Laboratory Results - last 24 hr 04/11/18 04/11/18 04/11/18 11:30 11:30 11:30 WBC 5.0 RBC 4.50 Hgb 13.8 L Hct 41.9 L MCV 93.1 D MCH 30.7 MCHC 32.9 RDW 14.6 H Plt Count 92 L MPV 10.1 Gran % 86.2 H Lymph % (Auto) 5.6 L [place] % (Auto) 8.2 H Eos % (Auto) 0.0 L Baso % (Auto) 0.0 Gran # 4.34 Lymph # (Auto) 0.3 L [place] # (Auto) 0.4 Eos # (Auto) 0.0 Baso # (Auto) 0.00 PT INR APTT pCO2 pO2 39 HCO3 ABG pH ABG Total CO2 ABG O2 Saturation ABG Base Excess ABG Potassium VBG pH 7.36 VBG pCO2 49.0 VBG HCO3 27.7 VBG Total CO2 29.2 H VBG O2 Sat (Calc) 73.4 H VBG Base Excess 1.5 VBG Potassium 3.8 Sodium 142.0 143 Chloride 103.0 104 Glucose 231 H Lactate 3.4 H FiO2 21.0 Crit Value Called To Liberty kaur Crit Value Called By Elisa wagner Blood Gas Notified Time 1200 Potassium 3.9 Carbon Dioxide 29 Anion Gap 14 BUN 25 H Creatinine 0.9 Est GFR ( Amer) > 60 Est GFR (Non-Af Amer) > 60 POC Glucose (mg/dL) Random Glucose 221 H Calcium 9.6 Phosphorus Magnesium 1.7 Total Bilirubin 0.8 AST 57 ALT 45 Alkaline Phosphatase 74 Lactate Dehydrogenase 587 Total Creatine Kinase 71 Troponin I 2.85 H* D NT-Pro-B Natriuret Pep 467 H Total Protein 6.7 Albumin 3.9 Globulin 2.7 Albumin/Globulin Ratio 1.4 Arterial Blood Potassium Venous Blood Potassium 3.8 Urine Color Urine Appearance Urine pH Ur Specific [place] Urine Protein Urine Glucose (UA) Urine Ketones Urine Blood Urine Nitrate Urine Bilirubin Urine Urobilinogen Ur Leukocyte Esterase Urine RBC Urine WBC Ur Epithelial Cells Urine Other Influenza Typ A,B (EIA) 04/11/18 04/11/18 04/11/18 11:30 11:30 11:58 WBC RBC Hgb Hct MCV MCH MCHC RDW Plt Count MPV Gran % Lymph % (Auto) [place] % (Auto) Eos % (Auto) Baso % (Auto) Gran # Lymph # (Auto) [place] # (Auto) Eos # (Auto) Baso # (Auto) PT 13.7 H INR 1.19 APTT 33.3 pCO2 pO2 HCO3 ABG pH ABG Total CO2 ABG O2 Saturation ABG Base Excess ABG Potassium VBG pH VBG pCO2 VBG HCO3 VBG Total CO2 VBG O2 Sat (Calc) VBG Base Excess VBG Potassium Sodium Chloride Glucose Lactate FiO2 Crit Value Called To Crit Value Called By Blood Gas Notified Time Potassium Carbon Dioxide Anion Gap BUN Creatinine Est GFR ( Amer) Est GFR (Non-Af Amer) POC Glucose (mg/dL) Random Glucose Calcium Phosphorus 2.9 Magnesium Total Bilirubin AST ALT Alkaline Phosphatase Lactate Dehydrogenase Total Creatine Kinase Troponin I NT-Pro-B Natriuret Pep Total Protein Albumin Globulin Albumin/Globulin Ratio Arterial Blood Potassium Venous Blood Potassium Urine Color Urine Appearance Urine pH Ur Specific [place] Urine Protein Urine Glucose (UA) Urine Ketones Urine Blood Urine Nitrate Urine Bilirubin Urine Urobilinogen Ur Leukocyte Esterase Urine RBC Urine WBC Ur Epithelial Cells Urine Other Influenza Typ A,B (EIA) Pos for influenza a H 04/11/18 04/11/18 04/11/18 12:30 16:10 17:11 WBC RBC Hgb Hct MCV MCH MCHC RDW Plt Count MPV Gran % Lymph % (Auto) [place] % (Auto) Eos % (Auto) Baso % (Auto) Gran # Lymph # (Auto) [place] # (Auto) Eos # (Auto) Baso # (Auto) PT INR APTT pCO2 39 pO2 65.0 L 56 H HCO3 21.5 ABG pH 7.35 ABG Total CO2 22.7 ABG O2 Saturation 94.4 L ABG Base Excess -3.8 L ABG Potassium 3.6 VBG pH 7.42 VBG pCO2 37.0 L VBG HCO3 24.0 VBG Total CO2 25.1 VBG O2 Sat (Calc) 91.1 H VBG Base Excess -0.2 L VBG Potassium 3.9 Sodium 138.0 141.0 Chloride 108.0 H 105.0 Glucose 138 H 269 H Lactate 2.0 5.3 H* FiO2 40.0 21.0 Crit Value Called To Emily gomez Crit Value Called By [facility] Blood Gas Notified Time 1625 Potassium Carbon Dioxide Anion Gap BUN Creatinine Est GFR ( Amer) Est GFR (Non-Af Amer) POC Glucose (mg/dL) 231 H Random Glucose Calcium Phosphorus Magnesium Total Bilirubin AST ALT Alkaline Phosphatase Lactate Dehydrogenase Total Creatine Kinase Troponin I NT-Pro-B Natriuret Pep Total Protein Albumin Globulin Albumin/Globulin Ratio Arterial Blood Potassium 3.6 Venous Blood Potassium 3.9 Urine Color Urine Appearance Urine pH Ur Specific [place] Urine Protein Urine Glucose (UA) Urine Ketones Urine Blood Urine Nitrate Urine Bilirubin Urine Urobilinogen Ur Leukocyte Esterase Urine RBC Urine WBC Ur Epithelial Cells Urine Other Influenza Typ A,B (EIA) 04/11/18 04/11/18 04/11/18 18:06 18:06 20:30 WBC RBC Hgb Hct MCV MCH MCHC RDW Plt Count MPV Gran % Lymph % (Auto) [place] % (Auto) Eos % (Auto) Baso % (Auto) Gran # Lymph # (Auto) [place] # (Auto) Eos # (Auto) Baso # (Auto) PT INR APTT pCO2 pO2 97 H HCO3 ABG pH ABG Total CO2 ABG O2 Saturation ABG Base Excess ABG Potassium VBG pH 7.41 VBG pCO2 38.0 L VBG HCO3 24.1 VBG Total CO2 25.3 VBG O2 Sat (Calc) 98.1 H VBG Base Excess -0.3 L VBG Potassium 3.6 Sodium 141.0 Chloride 110.0 H Glucose 262 H Lactate 2.9 H FiO2 21.0 Crit Value Called To Kathrine bermeo Crit Value Called By Atc Blood Gas Notified Time 181 Potassium Carbon Dioxide Anion Gap BUN Creatinine Est GFR ( Amer) Est GFR (Non-Af Amer) POC Glucose (mg/dL) Random Glucose Calcium Phosphorus Magnesium Total Bilirubin AST ALT Alkaline Phosphatase Lactate Dehydrogenase Total Creatine Kinase Troponin I 9.60 H* D NT-Pro-B Natriuret Pep Total Protein Albumin Globulin Albumin/Globulin Ratio Arterial Blood Potassium Venous Blood Potassium 3.6 Urine Color Shira Urine Appearance Slight-cloudy Urine pH 5.5 Ur Specific [place] >= 1.030 Urine Protein 30 H Urine Glucose (UA) 500 H Urine Ketones Negative Urine Blood Small H Urine Nitrate Negative Urine Bilirubin Negative Urine Urobilinogen 0.2 Ur Leukocyte Esterase Small H Urine RBC 10 - 15 H Urine WBC 20 - 25 H Ur Epithelial Cells 6 - 8 H Urine Other Uyeast Influenza Typ A,B (EIA) 04/11/18 04/11/18 04/11/18 21:40 21:40 22:30 WBC RBC Hgb Hct MCV MCH MCHC RDW Plt Count MPV Gran % Lymph % (Auto) [place] % (Auto) Eos % (Auto) Baso % (Auto) Gran # Lymph # (Auto) [place] # (Auto) Eos # (Auto) Baso # (Auto) PT INR APTT 113.5 H* pCO2 pO2 HCO3 ABG pH ABG Total CO2 ABG O2 Saturation ABG Base Excess ABG Potassium VBG pH VBG pCO2 VBG HCO3 VBG Total CO2 VBG O2 Sat (Calc) VBG Base Excess VBG Potassium Sodium Chloride Glucose Lactate FiO2 Crit Value Called To Crit Value Called By Blood Gas Notified Time Potassium Carbon Dioxide Anion Gap BUN Creatinine Est GFR ( Amer) Est GFR (Non-Af Amer) POC Glucose (mg/dL) 327 H Random Glucose Calcium Phosphorus Magnesium Total Bilirubin AST ALT Alkaline Phosphatase Lactate Dehydrogenase Total Creatine Kinase Troponin I 7.18 H* D NT-Pro-B Natriuret Pep Total Protein Albumin Globulin Albumin/Globulin Ratio Arterial Blood Potassium Venous Blood Potassium Urine Color Urine Appearance Urine pH Ur Specific [place] Urine Protein Urine Glucose (UA) Urine Ketones Urine Blood Urine Nitrate Urine Bilirubin Urine Urobilinogen Ur Leukocyte Esterase Urine RBC Urine WBC Ur Epithelial Cells Urine Other Influenza Typ A,B (EIA) 04/12/18 04/12/18 04/12/18 06:15 06:15 06:15 WBC 2.2 L D RBC 3.33 L Hgb 10.1 L D Hct 31.4 L MCV 94.3 MCH 30.3 MCHC 32.2 RDW 14.8 H Plt Count 55 L MPV 9.9 Gran % 81.1 H Lymph % (Auto) 13.5 L [place] % (Auto) 5.4 Eos % (Auto) 0.0 L Baso % (Auto) 0.0 Gran # 1.81 Lymph # (Auto) 0.3 L [place] # (Auto) 0.1 Eos # (Auto) 0.0 Baso # (Auto) 0.00 PT INR APTT 69.2 H pCO2 pO2 HCO3 ABG pH ABG Total CO2 ABG O2 Saturation ABG Base Excess ABG Potassium VBG pH VBG pCO2 VBG HCO3 VBG Total CO2 VBG O2 Sat (Calc) VBG Base Excess VBG Potassium Sodium 149 H Chloride 122 H Glucose Lactate FiO2 Crit Value Called To Crit Value Called By Blood Gas Notified Time Potassium 3.0 L Carbon Dioxide 22 Anion Gap 8 L BUN 20 Creatinine 0.6 L Est GFR ( Amer) > 60 Est GFR (Non-Af Amer) > 60 POC Glucose (mg/dL) Random Glucose 192 H Calcium 6.7 L* Phosphorus Magnesium Total Bilirubin 0.4 AST 52 ALT 38 Alkaline Phosphatase 45 Lactate Dehydrogenase Total Creatine Kinase Troponin I 3.99 H* D NT-Pro-B Natriuret Pep Total Protein 4.0 L Albumin 2.2 L Globulin 1.9 Albumin/Globulin Ratio 1.2 Arterial Blood Potassium Venous Blood Potassium Urine Color Urine Appearance Urine pH Ur Specific [place] Urine Protein Urine Glucose (UA) Urine Ketones Urine Blood Urine Nitrate Urine Bilirubin Urine Urobilinogen Ur Leukocyte Esterase Urine RBC Urine WBC Ur Epithelial Cells Urine Other Influenza Typ A,B (EIA) 04/12/18 06:15 WBC RBC Hgb Hct MCV MCH MCHC RDW Plt Count MPV Gran % Lymph % (Auto) [place] % (Auto) Eos % (Auto) Baso % (Auto) Gran # Lymph # (Auto) [place] # (Auto) Eos # (Auto) Baso # (Auto) PT INR APTT pCO2 pO2 46 HCO3 ABG pH ABG Total CO2 ABG O2 Saturation ABG Base Excess ABG Potassium VBG pH 7.31 L VBG pCO2 45.0 VBG HCO3 22.7 VBG Total CO2 24.1 VBG O2 Sat (Calc) 83.4 H VBG Base Excess -3.7 L VBG Potassium 3.2 L Sodium 148.0 Chloride 117.0 H Glucose 227 H Lactate 2.0 FiO2 21.0 Crit Value Called To Avis lee Crit Value Called By Elisa matt Blood Gas Notified Time 705 Potassium Carbon Dioxide Anion Gap BUN Creatinine Est GFR ( Amer) Est GFR (Non-Af Amer) POC Glucose (mg/dL) Random Glucose Calcium Phosphorus Magnesium Total Bilirubin AST ALT Alkaline Phosphatase Lactate Dehydrogenase Total Creatine Kinase Troponin I NT-Pro-B Natriuret Pep Total Protein Albumin Globulin Albumin/Globulin Ratio Arterial Blood Potassium Venous Blood Potassium 3.2 L Urine Color Urine Appearance Urine pH Ur Specific [place] Urine Protein Urine Glucose (UA) Urine Ketones Urine Blood Urine Nitrate Urine Bilirubin Urine Urobilinogen Ur Leukocyte Esterase Urine RBC Urine WBC Ur Epithelial Cells Urine Other Influenza Typ A,B (EIA) Assessment & Plan - Assessment and Plan (Free Text) Assessment: 77 year old male with PMH of Alzheimer's dementia, HLD, CHF with EF of 50% in 12/2017, HLD, CAD, R lower lobe pneumonia, c. albicans fungemia, hemolytic anemia, and prostate cancer, brought in by [facility] for fever and SOB. Found to be septic with fever 103.7F, tachycardic 113 and O2 saturation of 90% while on face mask. CXR shows bibasilar perihilar infiltrates. Patient tested positive for flu. Patient also found to have elevated troponins. - Continue with Vanc, Yessy, Levaquin - Started on Tamiflu for positive influenza - CXR shows bibasilar perihilar infiltrates - F/u septic work up. Sputum cultures neg - Cont to monitor for any changes Case and plan was reviewed and discussed with Dr Schroeder. <Richard Schroeder - Last Filed: 04/12/18 15:03> Meds - Medications Medications: Current Medications Acetaminophen (Tylenol 325 Mg Supp) 325 mg RC Q4H PRN PRN Reason: Fever >100.4 F Last Admin: 04/11/18 16:34 Dose: 325 mg Albuterol/Ipratropium (Duoneb 3 Mg/0.5 Mg (3 Ml) Ud) 3 ml IH [id number] YOLANDA Last Admin: 04/12/18 13:25 Dose: 3 ml Albuterol/Ipratropium (Duoneb 3 Mg/0.5 Mg (3 Ml) Ud) 3 ml IH Q2H PRN PRN Reason: Shortness of Breath Aspirin (Ecotrin) 81 mg PO DAILY YOLANDA Last Admin: 04/12/18 09:23 Dose: 81 mg Atorvastatin Calcium (Lipitor) 40 mg PO HS YOLANDA Last Admin: 04/11/18 21:36 Dose: 40 mg Donepezil HCl (Aricept) 10 mg PO HS YOLANDA Heparin Sodium/Sodium Chloride (Heparin 34573 Units/250ml 1/2 Normal Saline) 25,000 units in 250 mls @ 7.495 mls/hr IV .Q24H YOLANDA; Protocol Last Titration: 04/11/18 23:17 Dose: 8.96 units/kg/hr, 5.6 mls/hr Vancomycin HCl (Vancomycin 1gm) 1 gm in 250 mls @ 167 mls/hr IVPB Q12H YOLANDA; Protocol Last Admin: 04/12/18 09:25 Dose: 167 mls/hr Meropenem (Merrem Iv 1 Gm Premix) 1 gm in 50 mls @ 100 mls/hr IVPB Q8 YOLANDA; Protocol Last Admin: 04/12/18 05:18 Dose: 100 mls/hr Levofloxacin/Dextrose (Levaquin 750mg) 750 mg in 150 mls @ 100 mls/hr IVPB DAILY [facility]; Protocol Last Admin: 04/12/18 09:24 Dose: 100 mls/hr Insulin Human Lispro (Humalog Med) 0 units SC ACHS [facility]; Protocol Last Admin: 04/12/18 11:42 Dose: 3 units Levothyroxine Sodium (Synthroid) 75 mcg PO DAILY [facility] Last Admin: 04/12/18 09:24 Dose: 75 mcg Methylprednisolone (Solu-Medrol) 20 mg IVP Q12 [facility] Montelukast Sodium (Singulair) 10 mg PO DAILY [facility] Last Admin: 04/12/18 09:24 Dose: 10 mg Nystatin (Nystatin Oral Susp) 5 ml PO QID [facility] Stop: 04/17/18 14:00 Oseltamivir Phosphate (Tamiflu Cap) 75 mg PO BID [facility]; Protocol Stop: 04/16/18 18:01 Last Admin: 04/12/18 09:24 Dose: 75 mg Pantoprazole Sodium (Protonix Inj) 40 mg IVP DAILY [facility] Last Admin: 04/12/18 09:23 Dose: 40 mg Tamsulosin HCl (Flomax) 0.4 mg PO DAILY [facility] Last Admin: 04/12/18 09:23 Dose: 0.4 mg Results - Vital Signs Recent Vital Signs: Last Vital Signs Temp 97.7 F 04/12/18 14:06 Pulse 64 04/12/18 14:06 Resp 31 H 04/12/18 14:00 BP 95/37 L 04/12/18 12:36 Pulse Ox 93 L 04/12/18 14:06 - Labs Result Diagrams: 04/12/18 06:15 04/12/18 06:15 Labs: Laboratory Results - last 24 hr 04/11/18 04/11/18 04/11/18 16:10 17:11 18:06 WBC RBC Hgb Hct MCV MCH MCHC RDW Plt Count MPV Gran % Lymph % (Auto) [place] % (Auto) Eos % (Auto) Baso % (Auto) Gran # Lymph # (Auto) [place] # (Auto) Eos # (Auto) Baso # (Auto) APTT pO2 56 H VBG pH 7.42 VBG pCO2 37.0 L VBG HCO3 24.0 VBG Total CO2 25.1 VBG O2 Sat (Calc) 91.1 H VBG Base Excess -0.2 L VBG Potassium 3.9 Sodium 141.0 Chloride 105.0 Glucose 269 H Lactate 5.3 H* FiO2 21.0 Crit Value Called To Emily gomez Crit Value Called By [facility] Blood Gas Notified Time 1625 Potassium Carbon Dioxide Anion Gap BUN Creatinine Est GFR ( Amer) Est GFR (Non-Af Amer) POC Glucose (mg/dL) 231 H Random Glucose Calcium Total Bilirubin AST ALT Alkaline Phosphatase Troponin I 9.60 H* D Total Protein Albumin Globulin Albumin/Globulin Ratio Procalcitonin Venous Blood Potassium 3.9 Urine Color Urine Appearance Urine pH Ur Specific [place] Urine Protein Urine Glucose (UA) Urine Ketones Urine Blood Urine Nitrate Urine Bilirubin Urine Urobilinogen Ur Leukocyte Esterase Urine RBC Urine WBC Ur Epithelial Cells Urine Other 04/11/18 04/11/18 04/11/18 18:06 18:06 20:30 WBC RBC Hgb Hct MCV MCH MCHC RDW Plt Count MPV Gran % Lymph % (Auto) [place] % (Auto) Eos % (Auto) Baso % (Auto) Gran # Lymph # (Auto) [place] # (Auto) Eos # (Auto) Baso # (Auto) APTT pO2 97 H VBG pH 7.41 VBG pCO2 38.0 L VBG HCO3 24.1 VBG Total CO2 25.3 VBG O2 Sat (Calc) 98.1 H VBG Base Excess -0.3 L VBG Potassium 3.6 Sodium 141.0 Chloride 110.0 H Glucose 262 H Lactate 2.9 H FiO2 21.0 Crit Value Called To [place] bermeo Crit Value Called By [facility] Blood Gas Notified Time 1817 Potassium Carbon Dioxide Anion Gap BUN Creatinine Est GFR ( Amer) Est GFR (Non-Af Amer) POC Glucose (mg/dL) Random Glucose Calcium Total Bilirubin AST ALT Alkaline Phosphatase Troponin I Total Protein Albumin Globulin Albumin/Globulin Ratio Procalcitonin 6.52 H Venous Blood Potassium 3.6 Urine Color Shira Urine Appearance Slight-cloudy Urine pH 5.5 Ur Specific [place] >= 1.030 Urine Protein 30 H Urine Glucose (UA) 500 H Urine Ketones Negative Urine Blood Small H Urine Nitrate Negative Urine Bilirubin Negative Urine Urobilinogen 0.2 Ur Leukocyte Esterase Small H Urine RBC 10 - 15 H Urine WBC 20 - 25 H Ur Epithelial Cells 6 - 8 H Urine Other Uyeast 0104/11/18 04/11/18 21:40 21:40 22:30 WBC RBC Hgb Hct MCV MCH MCHC RDW Plt Count MPV Gran % Lymph % (Auto) [place] % (Auto) Eos % (Auto) Baso % (Auto) Gran # Lymph # (Auto) [place] # (Auto) Eos # (Auto) Baso # (Auto) APTT 113.5 H* pO2 VBG pH VBG pCO2 VBG HCO3 VBG Total CO2 VBG O2 Sat (Calc) VBG Base Excess VBG Potassium Sodium Chloride Glucose Lactate FiO2 Crit Value Called To Crit Value Called By Blood Gas Notified Time Potassium Carbon Dioxide Anion Gap BUN Creatinine Est GFR ( Amer) Est GFR (Non-Af Amer) POC Glucose (mg/dL) 327 H Random Glucose Calcium Total Bilirubin AST ALT Alkaline Phosphatase Troponin I 7.18 H* D Total Protein Albumin Globulin Albumin/Globulin Ratio Procalcitonin Venous Blood Potassium Urine Color Urine Appearance Urine pH Ur Specific [place] Urine Protein Urine Glucose (UA) Urine Ketones Urine Blood Urine Nitrate Urine Bilirubin Urine Urobilinogen Ur Leukocyte Esterase Urine RBC Urine WBC Ur Epithelial Cells Urine Other 04/12/18 04/12/18 04/12/18 06:15 06:15 06:15 WBC 2.2 L D RBC 3.33 L Hgb 10.1 L D Hct 31.4 L MCV 94.3 MCH 30.3 MCHC 32.2 RDW 14.8 H Plt Count 55 L MPV 9.9 Gran % 81.1 H Lymph % (Auto) 13.5 L [place] % (Auto) 5.4 Eos % (Auto) 0.0 L Baso % (Auto) 0.0 Gran # 1.81 Lymph # (Auto) 0.3 L [place] # (Auto) 0.1 Eos # (Auto) 0.0 Baso # (Auto) 0.00 APTT 69.2 H pO2 VBG pH VBG pCO2 VBG HCO3 VBG Total CO2 VBG O2 Sat (Calc) VBG Base Excess VBG Potassium Sodium 149 H Chloride 122 H Glucose Lactate FiO2 Crit Value Called To Crit Value Called By Blood Gas Notified Time Potassium 3.0 L Carbon Dioxide 22 Anion Gap 8 L BUN 20 Creatinine 0.6 L Est GFR ( Amer) > 60 Est GFR (Non-Af Amer) > 60 POC Glucose (mg/dL) Random Glucose 192 H Calcium 6.7 L* Total Bilirubin 0.4 AST 52 ALT 38 Alkaline Phosphatase 45 Troponin I 3.99 H* D Total Protein 4.0 L Albumin 2.2 L Globulin 1.9 Albumin/Globulin Ratio 1.2 Procalcitonin Venous Blood Potassium Urine Color Urine Appearance Urine pH Ur Specific [place] Urine Protein Urine Glucose (UA) Urine Ketones Urine Blood Urine Nitrate Urine Bilirubin Urine Urobilinogen Ur Leukocyte Esterase Urine RBC Urine WBC Ur Epithelial Cells Urine Other 04/12/18 04/12/18 04/12/18 06:15 07:49 10:45 WBC RBC Hgb Hct MCV MCH MCHC RDW Plt Count MPV Gran % Lymph % (Auto) [place] % (Auto) Eos % (Auto) Baso % (Auto) Gran # Lymph # (Auto) [place] # (Auto) Eos # (Auto) Baso # (Auto) APTT pO2 46 41 VBG pH 7.31 L 7.35 VBG pCO2 45.0 42.0 VBG HCO3 22.7 23.2 VBG Total CO2 24.1 24.5 VBG O2 Sat (Calc) 83.4 H 78.5 H VBG Base Excess -3.7 L -2.4 L VBG Potassium 3.2 L 4.0 Sodium 148.0 147.0 Chloride 117.0 H 115.0 H Glucose 227 H 240 H Lactate 2.0 1.7 FiO2 21.0 21.0 Crit Value Called To Avis lee Crit Value Called By Elisa matt Blood Gas Notified Time 705 Potassium Carbon Dioxide Anion Gap BUN Creatinine Est GFR ( Amer) Est GFR (Non-Af Amer) POC Glucose (mg/dL) 235 H Random Glucose Calcium Total Bilirubin AST ALT Alkaline Phosphatase Troponin I Total Protein Albumin Globulin Albumin/Globulin Ratio Procalcitonin Venous Blood Potassium 3.2 L 4.0 Urine Color Urine Appearance Urine pH Ur Specific [place] Urine Protein Urine Glucose (UA) Urine Ketones Urine Blood Urine Nitrate Urine Bilirubin Urine Urobilinogen Ur Leukocyte Esterase Urine RBC Urine WBC Ur Epithelial Cells Urine Other 04/12/18 04/12/18 11:17 13:40 WBC RBC Hgb Hct MCV MCH MCHC RDW Plt Count MPV Gran % Lymph % (Auto) [place] % (Auto) Eos % (Auto) Baso % (Auto) Gran # Lymph # (Auto) [place] # (Auto) Eos # (Auto) Baso # (Auto) APTT 60.8 H pO2 VBG pH VBG pCO2 VBG HCO3 VBG Total CO2 VBG O2 Sat (Calc) VBG Base Excess VBG Potassium Sodium Chloride Glucose Lactate FiO2 Crit Value Called To Crit Value Called By Blood Gas Notified Time Potassium Carbon Dioxide Anion Gap BUN Creatinine Est GFR ( Amer) Est GFR (Non-Af Amer) POC Glucose (mg/dL) 223 H Random Glucose Calcium Total Bilirubin AST ALT Alkaline Phosphatase Troponin I Total Protein Albumin Globulin Albumin/Globulin Ratio Procalcitonin Venous Blood Potassium Urine Color Urine Appearance Urine pH Ur Specific [place] Urine Protein Urine Glucose (UA) Urine Ketones Urine Blood Urine Nitrate Urine Bilirubin Urine Urobilinogen Ur Leukocyte Esterase Urine RBC Urine WBC Ur Epithelial Cells Urine Other Assessment & Plan - Assessment and Plan (Free Text) Assessment: Infectious diseases Attending Physician Attestation Patient seen and examined, discussed with medical staff director. I have reviewed the patient's history of present illness, past medical, social, personal and family histories, pertinent physical exam findings, course so far in this hospital admission, pertinent laboratory and imaging results. I agree with the above findings, assessment and plan. In addition, we have started Tamiflu, Vancomycin, Merrem and Doxycycline for this patient with severe sepsis with hypoxic respiratory failure due to Influenza A infection and probable bilateral HCAP, on top of acute NSTEMI. Follow up cultures, urine Legionella Ag, and will monitor clinically. Overall prognosis is poor.
[2018-04-12 10:56] LABS: VENOUS BLOOD GAS BASE EXCESS -2.4 mmol/L (0.0-2.0); VENOUS BLOOD GAS PO2 41 mm/Hg (30-55); VENOUS BLOOD PH 7.35 (7.32-7.43)
--- NOTE | 2018-04-12 13:00 | PN ---
DATE: 04/12/2018 SUBJECTIVE: I saw Max Matthew in intensive care unit, who is quite weak and quite ill. He has had flu, he had [place], he has an infection, he is septic. He is alert. He is talking a little bit better say than yesterday, but not much, he is answering yes or no questions. He is on Aricept, DuoNeb, Ecotrin, Flomax, heparin, insulin, Levaquin, Lipitor, Merrem, potassium replacement, Protonix, Singulair, IV fluids, Solu-Medrol, Synthroid, Tamiflu, Tylenol and vancomycin. He is weak, in bed. PHYSICAL EXAMINATION: VITAL SIGNS: He has a 97.5 temperature, 49 pulse, 25 respiratory rate, 100% O2 sat on oxygen, 90/55 blood pressure. HEAD: Atraumatic, normocephalic. HEART: Regular rate. LUNGS: Decreased breath sounds bilaterally. Poor inspiration. No apparent rales, rhonchi or wheezes auscultated. ABDOMEN: Soft and nontender. Positive bowel sounds. EXTREMITIES: No edema at this time. He is weak and in bed. LABORATORY DATA: He had a 2.2 white count, 10.1 hemoglobin, 31.4 hematocrit with 55 platelets. Lactate is down to 2, it was as high as 5.3. Sodium 149, potassium is being up replaced, was 3, BUN 20, creatinine 0.6, GRF greater than 60, sugar is 192, calcium is 6.7, we will need to get some calcium, total bili is 0.4. AST is 52, ALT is 38, alk phos 45. Troponins are coming down, they were 9, they were 7, now 3.9, total protein is 4. He was on heparin drip. He is positive for influenza A. He is being seen by the intensive care unit, Pulmonary and Infectious Disease. He has bilateral lobe pneumonia, non-ST elevation myocardia, influenza A positive. Continue with aggressive treatment and care. While he is in the intensive care unit, we will check his labs and continue medicines. We will follow. Doretha Nicholson DO [facility] # [id number]
[2018-04-12] MEDS: Heparin25000 units/250ml 1/2NS 25,000 UNITS/250 ML BAG IV SCH (14:55)
[2018-04-12] MEDS ORDERED: Potassium Chloride 20 mEq ER Tab PO ONE (15:10)
[2018-04-12] MEDS ORDERED: Potassium Chloride 40 mEq/30 ml LIQ UD PO ONE (15:20)
[2018-04-12] MEDS ORDERED: Magnesium Sulfate 1 gm in D5W 1 GM/100 ML BAG IVPB ONE (15:22)
[2018-04-12] MEDS: Nystatin 100,000 Units/ml Oral Susp 5 ml UD PO SCH ×2 (17:04→21:25)
--- NOTE | 2018-04-12 17:08 | CON ---
DATE: 04/12/2018 CARDIOLOGY CONSULTATION HISTORY: The patient is a 77-year-old male, who presents with febrile illness. He is found to have pneumonia as well as positive flu serology. In addition, he was found to have elevated troponins consistent with a non-STEMI. PAST MEDICAL HISTORY: The patient's past medical history includes history of Alzheimer's, CHF, hyperlipidemia, and a documented triple-vessel CAD, in which the family could not decide whether the patient was to have open heart surgery, undergo angioplasty. REVIEW OF SYSTEMS: Because of the patient's mental status, there is no review of systems possible. PHYSICAL EXAMINATION: VITAL SIGNS: Blood pressure is 95/37, heart rate is in the 60s. NECK: Negative JVD. LUNGS: Decreased breath sounds with rhonchi. HEART: Reveals S1, S2. EXTREMITIES: Without edema. DIAGNOSTIC DATA: EKG reveals sinus tachycardia with low voltage with nonspecific ST-T changes. LABORATORY DATA: Hemoglobin is 10.1. Chemistries: BUN and creatinine unremarkable. Glucose is 192 with a troponin of 3.99. IMPRESSION: 1. Pneumonia. 2. [id number] myocardial infarction 3. Multivessel coronary artery disease. 4. Diabetes mellitus. 5. Alzheimer's issues. Given these findings, the patient is currently on IV antibiotics. I have discussed the possibility of coronary revascularization with the patient's , which could only occur after febrile illness. We will start the patient on Lovenox, aspirin, and Plavix. We will replace the potassium. We will await the decision of the family before we intervene. Janusz Landry MD
[2018-04-12] MEDS ORDERED: Enoxaparin 60 mg Syringe SC SCH (18:00)
[2018-04-12] MEDS: Enoxaparin 60 mg Syringe SC SCH (21:20)
[2018-04-13] MEDS: Albuterol-Ipratrop 3 mg / 0.5 (3 ml) UD IH SCH ×4 (01:20→19:22)
[2018-04-13] MEDS: Meropenem IV 1 gm in NS 1 GM/50 ML BAG IVPB SCH ×3 (06:00→22:00)
[2018-04-13] MEDS: Pantoprazole 40 mg Susp UD PO SCH (06:09)
[2018-04-13 06:35] LABS: GRAN # 3.07 (1.4-6.5); GRAN % 84.8 % (50.0-68.0); HEMOGLOBIN 10.5 g/dL (14.0-18.0); LYMPH # 0.3 (1.2-3.4); LYMPH % 9.4 % (22.0-35.0); MEAN CORPUSCULAR HEMOGLOBIN 30.1 pg (25.0-35.0); MONO # 0.2 (0.1-0.6); MONO % 5.8 % (1.0-6.0); RBC 3.49 10^6/uL (3.5-6.1); RED CELL DISTRIBUTION WIDTH 14.7 % (11.5-14.5); WHITE BLOOD COUNT 3.6 10^3/uL (4.5-11.0)
[2018-04-13 07:19] LABS: ALB/GLOB RATIO 1.2 (1.1-1.8); ALBUMIN 2.8 g/dL (3.0-4.8); ALT/SGPT 45 U/L (7-56); AST/SGOT 52 U/L (17-59); BLOOD UREA NITROGEN 31 mg/dL (7-21); GFR NON-AFRICAN AMERICAN > 60
[2018-04-13] MEDS: levoFLOXacin 750 mg in D5W 750 MG/150 ML BAG IVPB SCH (09:20)
[2018-04-13] MEDS: Insulin Lispro (humaLOG) MEDIUM Coverage SC SCH ×4 (09:26→22:00)
--- NOTE | 2018-04-13 09:31 | CP.PCM.PN ---
<Wyatt Griffin - Last Filed: 04/13/18 12:26> Subjective - Date & Time of Evaluation Date of Evaluation: 04/13/18 Time of Evaluation: 07:10 - Subjective Subjective: Infectious disease progress note: Pt seen and examined at bedside. No acute events overnight. Patient is non verbal however alert, Denies any chest pain or sob. 12 Point ROS limited as non verbal Objective - Vital Signs/Intake and Output Vital Signs (last 24 hours): Temp Pulse Resp BP Pulse Ox 98.8 F 53 L 27 H 87/49 L 98 04/13/18 06:10 04/13/18 06:10 04/13/18 06:10 04/12/18 20:00 04/13/18 06:10 Intake and Output: 04/13/18 04/13/18 06:59 18:59 Intake Total 450 Output Total 700 Balance -250 - Medications Medications: Current Medications Acetaminophen (Tylenol 325 Mg Supp) 325 mg RC Q4H PRN PRN Reason: Fever >100.4 F Last Admin: 04/11/18 16:34 Dose: 325 mg Albuterol/Ipratropium (Duoneb 3 Mg/0.5 Mg (3 Ml) Ud) 3 ml IH [id number] YOLANDA Last Admin: 04/13/18 07:57 Dose: 3 ml Albuterol/Ipratropium (Duoneb 3 Mg/0.5 Mg (3 Ml) Ud) 3 ml IH Q2H PRN PRN Reason: Shortness of Breath Aspirin (Ecotrin) 81 mg PO DAILY YOLANDA Last Admin: 04/12/18 09:23 Dose: 81 mg Atorvastatin Calcium (Lipitor) 40 mg PO HS YOLANDA Last Admin: 04/12/18 21:19 Dose: 40 mg Clopidogrel Bisulfate (Plavix) 75 mg PO DAILY YOLANDA Donepezil HCl (Aricept) 10 mg PO HS YOLANDA Enoxaparin Sodium (Lovenox) 60 mg SC 0900,2100 [facility]; Protocol Last Admin: 04/12/18 21:20 Dose: 60 mg Vancomycin HCl (Vancomycin 1gm) 1 gm in 250 mls @ 167 mls/hr IVPB Q12H YOLANDA; Protocol Last Admin: 04/12/18 21:25 Dose: 167 mls/hr Meropenem (Merrem Iv 1 Gm Premix) 1 gm in 50 mls @ 100 mls/hr IVPB Q8 [facility]; Protocol Last Admin: 04/13/18 06:00 Dose: 100 mls/hr Levofloxacin/Dextrose (Levaquin 750mg) 750 mg in 150 mls @ 100 mls/hr IVPB DAILY [facility]; Protocol Last Admin: 04/13/18 09:20 Dose: 100 mls/hr Insulin Human Lispro (Humalog Med) 0 units SC ACHS [facility]; Protocol Last Admin: 04/12/18 22:16 Dose: 2 units Levothyroxine Sodium (Synthroid) 75 mcg PO DAILY [facility] Last Admin: 04/12/18 09:24 Dose: 75 mcg Methylprednisolone (Solu-Medrol) 20 mg IVP Q12 [facility] Last Admin: 04/12/18 21:22 Dose: 20 mg Montelukast Sodium (Singulair) 10 mg PO DAILY [facility] Last Admin: 04/12/18 09:24 Dose: 10 mg Nystatin (Nystatin Oral Susp) 5 ml PO QID YOLANDA Stop: 04/17/18 14:00 Last Admin: 04/12/18 21:25 Dose: 5 ml Oseltamivir Phosphate (Tamiflu Cap) 75 mg PO BID [facility]; Protocol Stop: 04/16/18 18:01 Last Admin: 04/12/18 17:04 Dose: 75 mg Pantoprazole Sodium (Protonix Susp) 40 mg PO 0600 [facility] Last Admin: 04/13/18 06:09 Dose: 40 mg Tamsulosin HCl (Flomax) 0.4 mg PO DAILY [facility] Last Admin: 04/12/18 09:23 Dose: 0.4 mg - Labs Labs: 04/13/18 05:15 04/13/18 05:15 PT 13.7 SECONDS (9.4-12.5) H 04/11/18 11:30 INR 1.19 04/11/18 11:30 APTT 26.6 Seconds (26.9-38.3) L 04/13/18 05:15 - Constitutional Appears: No Acute Distress - Head Exam Head Exam: ATRAUMATIC, NORMOCEPHALIC - Eye Exam Eye Exam: EOMI - ENT Exam ENT Exam: Mucous Membranes Moist - Respiratory Exam Respiratory Exam: Clear to Ausculation Bilateral Additional comments: no r/r/w - Cardiovascular Exam Cardiovascular Exam: REGULAR RHYTHM, +S1, +S2 - GI/Abdominal Exam GI & Abdominal Exam: Soft, Normal Bowel Sounds - Extremities Exam Extremities Exam: absent: Calf Tenderness, Pedal Edema - Neurological Exam Neurological Exam: Alert, Awake - Psychiatric Exam Psychiatric exam: Normal Mood - Skin Skin Exam: Dry, Warm Assessment and Plan - Assessment and Plan (Free Text) Assessment: 77 year old male with PMH of Alzheimer's dementia, HLD, CHF with EF of 50% in 12/2017, HLD, CAD, R lower lobe pneumonia, c. albicans fungemia, hemolytic anemia, and prostate cancer, brought in by [facility] for fever and SOB. Found to be septic with fever 103.7F, tachycardic 113 and O2 due to pneumonia and influenza. Patient also found to have NSTEMI. - Continue abx Vanc, Yessy, Levaquin - Cont Tamiflu for positive influenza - Elevated procal 6.5 - CXR shows bibasilar perihilar infiltrates - Blood and sputum cx neg thus far - F/u cardiology and pulm recs - Cont to monitor for any changes Case and plan was reviewed and discussed with Dr Schroeder. <Richard Schroeder - Last Filed: 04/13/18 17:08> Objective - Vital Signs/Intake and Output Vital Signs (last 24 hours): Temp Pulse Resp BP Pulse Ox 98.8 F 61 28 H 109/50 L 95 04/13/18 10:17 04/13/18 15:10 04/13/18 15:10 04/13/18 12:00 04/13/18 15:10 Intake and Output: 04/13/18 04/13/18 06:59 18:59 Intake Total 450 Output Total 700 Balance -250 - Medications Medications: Current Medications Acetaminophen (Tylenol 325 Mg Supp) 325 mg RC Q4H PRN PRN Reason: Fever >100.4 F Last Admin: 04/11/18 16:34 Dose: 325 mg Albuterol/Ipratropium (Duoneb 3 Mg/0.5 Mg (3 Ml) Ud) 3 ml IH [id number] YOLANDA Last Admin: 04/13/18 12:59 Dose: 3 ml Albuterol/Ipratropium (Duoneb 3 Mg/0.5 Mg (3 Ml) Ud) 3 ml IH Q2H PRN PRN Reason: Shortness of Breath Amino Acid Protein (Prostat 15 G Packet) 15 gm PO DAILY [facility] Last Admin: 04/13/18 13:00 Dose: 15 gm Aspirin (Ecotrin) 81 mg PO DAILY [facility] Last Admin: 04/13/18 09:33 Dose: 81 mg Atorvastatin Calcium (Lipitor) 40 mg PO HS [facility] Last Admin: 04/12/18 21:19 Dose: 40 mg Clopidogrel Bisulfate (Plavix) 75 mg PO DAILY [facility] Last Admin: 04/13/18 09:33 Dose: 75 mg Donepezil HCl (Aricept) 10 mg PO HS [facility] Enoxaparin Sodium (Lovenox) 60 mg SC 0900,2100 [facility]; Protocol Last Admin: 04/13/18 09:35 Dose: 60 mg Vancomycin HCl (Vancomycin 1gm) 1 gm in 250 mls @ 167 mls/hr IVPB Q12H [facility]; Protocol Last Admin: 04/13/18 09:36 Dose: 167 mls/hr Meropenem (Merrem Iv 1 Gm Premix) 1 gm in 50 mls @ 100 mls/hr IVPB Q8 [facility]; P rotocol Last Admin: 04/13/18 14:04 Dose: 100 mls/hr Levofloxacin/Dextrose (Levaquin 750mg) 750 mg in 150 mls @ 100 mls/hr IVPB DAILY [facility]; Protocol Last Admin: 04/13/18 09:20 Dose: 100 mls/hr Insulin Human Lispro (Humalog Med) 0 units SC ACHS [facility]; Protocol Last Admin: 04/13/18 11:45 Dose: 8 units Levothyroxine Sodium (Synthroid) 75 mcg PO DAILY [facility] Last Admin: 04/13/18 09:33 Dose: 75 mcg Methylprednisolone (Solu-Medrol) 20 mg IVP Q12 [facility] Last Admin: 04/13/18 09:35 Dose: 20 mg Montelukast Sodium (Singulair) 10 mg PO DAILY [facility] Last Admin: 04/13/18 09:33 Dose: 10 mg Nystatin (Nystatin Oral Susp) 5 ml PO QID [facility] Stop: 04/17/18 14:00 Last Admin: 04/12/18 21:25 Dose: 5 ml Oseltamivir Phosphate (Tamiflu Cap) 75 mg PO BID [facility]; Protocol Stop: 04/16/18 18:01 Last Admin: 04/13/18 09:33 Dose: 75 mg Pantoprazole Sodium (Protonix Susp) 40 mg PO 0600 [facility] Last Admin: 04/13/18 06:09 Dose: 40 mg Tamsulosin HCl (Flomax) 0.4 mg PO DAILY [facility] Last Admin: 04/13/18 09:33 Dose: 0.4 mg - Labs Labs: 04/13/18 05:15 04/13/18 05:15 PT 13.7 SECONDS (9.4-12.5) H 04/11/18 11:30 INR 1.19 04/11/18 11:30 APTT 26.6 Seconds (26.9-38.3) L 04/13/18 05:15 Assessment and Plan - Assessment and Plan (Free Text) Assessment: Infectious diseases Attending Physician Attestation Patient seen and examined, discussed with director medical. I have reviewed the patient's history of present illness, past medical, social, personal and family histories, pertinent physical exam findings, course so far in this hospital admission, pertinent laboratory and imaging results. I agree with the above findings, assessment and plan. In addition, continue Vancomycin, Merrem and Levaquin for patient with severe sepsis due to HCAP, and continue Tamiflu to complete 5 days for influenza A infection. Follow up final culture results. Overall prognosis is poor, patient also with acute NSTEMI.
[2018-04-13] MEDS: Levothyroxine 75 MCG TAB PO SCH (09:33)
[2018-04-13] MEDS: MethylPREDNISolone 40 mg Vial IVP SCH ×2 (09:35→22:00)
[2018-04-13] MEDS: Enoxaparin 60 mg Syringe SC SCH ×2 (09:35→22:00)
[2018-04-13] MEDS: Vancomycin 1gm in NS 250ml 1 GM/250 ML BAG IVPB SCH ×2 (09:36→22:00)
--- NOTE | 2018-04-13 10:32 | RAD ---
Date of service: 04/13/2018 HISTORY: Followup COMPARISON: 04/11/2018 FINDINGS: LUNGS: Right lower lobe infiltrate unchanged. Improvement in left lower lobe infiltrate PLEURA: No significant pleural effusion identified, no pneumothorax apparent. CARDIOVASCULAR: No aortic atherosclerotic calcification present. Normal cardiac size. No pulmonary vascular congestion. OSSEOUS STRUCTURES: No significant abnormalities. VISUALIZED UPPER ABDOMEN: Normal. OTHER FINDINGS: None. IMPRESSION: Right lower lobe infiltrate unchanged. Improvement in left lower lobe infiltrate
[2018-04-13] MEDS: Nystatin 100,000 Units/ml Oral Susp 5 ml UD PO SCH ×4 (11:00→21:54)
--- NOTE | 2018-04-13 11:31 | PN ---
DATE: 04/13/2018(650am-740am) SUBJECTIVE: The patient appears comfortable this morning. He is mildly short of breath, but in no acute distress. PHYSICAL EXAMINATION: VITAL SIGNS: The temperature is 98.8, pulse on the monitor is 61, respiratory rate 20/22, last blood pressure recorded is 87/49. Oxygen saturation on nasal cannula - 98%. HEENT: Normocephalic, atraumatic. NECK: No JVD. CARDIOVASCULAR: Positive S1, S2. No S3 gallop. LUNGS: Crackles at both bases. Much less rhonchi. No wheezing. EXTREMITIES: Mild edema. No cyanosis. No clubbing. Calves are nontender to palpation. GI: Abdomen is soft, nontender and nondistended. Bowel sounds are positive. SKIN: No acute rash. NEUROLOGIC: Exam limited at the present time. PERTINENT LABORATORY DATA: Chest x-ray was done this morning and reviewed. The chest x-ray shows definite improvement - with a decrease in the size and denseness of both lower lobe infiltrates. Official results are pending. IMPRESSION: 1. Bilateral lower lobe pneumonia. 2. [id number] myocardial infarction. 3. Influenza A positivity. 4. Mild bronchospasm. 5. Mild anemia. PLAN: The patient appears comfortable this morning. He is mildly short of breath, but in no acute distress. He is awake and alert. I did discuss the case with the night nurse at length. The night nurse stated the patient had a good night. I did review the chest x-ray as above. Findings are noted. The chest x-ray shows definite improvement - compared to the previous film. I would continue with the antibiotic coverage as per Infectious Disease. Input by Dr. Schroeder is noted. On physical exam, there is much less bronchospasm noted. In addition, the oxygen saturation on nasal cannula this morning is 98%. I will continue with the current nebulizer treatment and low-dose intravenous steroids (decreased yesterday) for now. Input by Dr. Landry (Cardiology) is also noted. Clinical status of the patient is certainly improved - compared to his initial presentation. However, given the above, the future status/prognosis for this patient remains very guarded/poor. I will discuss the above with the entire ICU team in the next few moments. I will also discuss the above with Dr. Nicholson later this morning. Medardo Whittaker MD [facility]
[2018-04-13] MEDS: Prostat 15 g packet PO SCH (13:00)
--- NOTE | 2018-04-13 13:32 | PN ---
DATE: 04/13/2018 SUBJECTIVE: I saw him in the Intensive Care Unit. He was actually talking to me a little bit better than yesterday. He eyes are more alert. He was moving his head better. He said good morning to me. He actually has a little bit of an appetite, was taking a couple of spoons of his oatmeal. He is on Aricept, DuoNeb, Ecotrin, Flomax, insulin, Levaquin, Lipitor, Lovenox, Merrem IV, nystatin, Plavix, Protonix, Singulair, Solu-Medrol, Synthroid, Tamiflu, Tylenol and vancomycin. He is trying to eat a little bit, which is good; he would not eat yesterday, he would not talk yesterday. PHYSICAL EXAMINATION: VITAL SIGNS: He has a 98.8 temperature, 53 pulse, 27 respiratory rate, blood pressure is 87/49. HEENT: Head is atraumatic and normocephalic. He is more alert today, a little bit not great, but he did speak. HEART: Regular rate. LUNGS: Decreased breath sounds. ABDOMEN: Soft. EXTREMITIES: No edema. LABORATORY DATA: He has a 3.6 white count, 10.5 hemoglobin, 32.8 hematocrit with 71 platelets. He has 146 sodium, potassium 4.2, BUN 31, creatinine 0.7. GFR is greater than 60. Sugar is 256, calcium is 9, phosphorus 2.6, magnesium 2.4. Total bilirubin is 0.4. AST is 52, ALT is 45, alkaline phosphatase is 58. IMPRESSION: He is on insulin coverage. He is being seen by Cardiology, Infectious Disease, bleach range operator, mortgage or loan underwriter. He has pneumonia, non-ST elevation myocardial infarction, multivessel coronary artery disease, diabetes, Alzheimer, influenza. We will continue with aggressive treatment and care in the Intensive Care Unit on Max Matthew, we also had a long conversation with the , so she is up-to-date with anything. We will check his labs tomorrow, maybe get him out of his chair if it is possible. Sean Nicholson DO
--- NOTE | 2018-04-13 18:09 | PN ---
DATE: 04/13/2018 CARDIOLOGY FOLLOWUP SUBJECTIVE: The patient is without distress in bed. PHYSICAL EXAMINATION: VITAL SIGNS: Blood pressure is 87/49, which is over 100 systolic now, heart rate is in the 50s. NECK: Negative JVD. LUNGS: Decreased breath sounds. HEART: Reveals S1 and S2. EXTREMITIES: Without edema. LABORATORY DATA: Hemoglobin is 10.5, platelet count is 71,000, BUN and creatinine unremarkable. IMPRESSION: 1. Non-ST elevation myocardial infarction. 2. Documented triple-vessel coronary artery disease. 3. Influenza A positivity. 4. Bronchospasm. 5. Anemia. Given these findings, currently the patient's non-STEMI is being treated with Plavix, aspirin, statin therapy and subcu Lovenox. I have discussed with the patient's as well as the daughter about the alternatives for his non-STEMI and triple vessel disease. Angioplasty is a possibility as well as bypass surgery. However, given his comorbidities, bypass surgery may not be the best choice. Janusz Landry MD
[2018-04-14] MEDS: Albuterol-Ipratrop 3 mg / 0.5 (3 ml) UD IH SCH ×4 (01:10→19:36)
[2018-04-14 06:31] LABS: GRAN # 3.14 (1.4-6.5); HEMOGLOBIN 10.4 g/dL (14.0-18.0); LYMPH # 0.3 (1.2-3.4); MEAN CELL VOLUME 94.4 fl (80.0-105.0); MEAN CORPUSCULAR HEMOGLOBIN 30.6 pg (25.0-35.0); MEAN CORPUSCULAR HGB CONC 32.4 g/dl (31.0-37.0); MEAN PLATELET VOLUME 10.3 fl (7.0-11.0); MONO # 0.2 (0.1-0.6); RBC 3.4 10^6/uL (3.5-6.1); RED CELL DISTRIBUTION WIDTH 14.8 % (11.5-14.5); WHITE BLOOD COUNT 3.6 10^3/uL (4.5-11.0)
[2018-04-14] MEDS: Meropenem IV 1 gm in NS 1 GM/50 ML BAG IVPB SCH ×3 (06:44→21:43)
[2018-04-14] MEDS: Pantoprazole 40 mg Susp UD PO SCH (06:45)
[2018-04-14 06:57] LABS: ALB/GLOB RATIO 1.2 (1.1-1.8); ALBUMIN 2.8 g/dL (3.0-4.8); ALT/SGPT 53 U/L (7-56); AST/SGOT 42 U/L (17-59); BLOOD UREA NITROGEN 33 mg/dL (7-21); GFR NON-AFRICAN AMERICAN > 60
--- NOTE | 2018-04-14 08:08 | PN ---
DATE: 04/14/2018([id number]) SUBJECTIVE: The patient appears comfortable this morning. He is mildly short of breath, but in no acute distress. PHYSICAL EXAMINATION: VITAL SIGNS: Temperature 97.9, pulse 52, respiratory rate 20/22, blood pressure 92/53. Oxygen saturation on nasal cannula is 100%. HEENT: Normocephalic, atraumatic. NECK: No JVD. CARDIOVASCULAR: Positive S1, S2. No S3 gallop. LUNGS: Crackles at both bases. Mild/less rhonchi. No wheezing. EXTREMITIES: Mild edema. No cyanosis. No clubbing. Calves are nontender to palpation. GI: Abdomen is soft, nontender and nondistended. Bowel sounds are positive. SKIN: No acute rash. NEUROLOGIC: Exam limited at the present time. PERTINENT LABORATORY DATA: Chest x-ray was done this morning and reviewed. The chest x-ray continues to improve with decreased lower lobe infiltrates. IMPRESSION: 1. Bilateral lower lobe pneumonia. 2. Yhh-XB-[id number] myocardial infarction. 3. Influenza A positivity. 4. Mild bronchospasm. 5. Mild anemia. PLAN: The patient appears comfortable this morning. He is mildly short of breath, but in no acute distress. He is awake and alert. I did discuss the case with the night nurse at length. The night nurse stated that the patient did have a few isolated runs of supraventricular tachycardia. The rhythm was broken with the patient's coughing. I did review the chest x-ray as above. Official results are pending. The chest x-ray continues to improve with a decrease in the lower lobe infiltrates. I would continue with the antibiotic coverage as per Infectious Disease. Input by Dr. Schroeder is noted. His temperatures have now resolved. There is no leukocytosis. Input by Cardiology (Dr. Landry) is also noted. Clinical status of the patient is certainly improved - compared to the initial presentation. However, given the above, the future status/prognosis for this patient remains very guarded. I will discuss the above with the entire ICU team in the next few moments. I will also discuss the above with Dr. Nicholson later this morning. Medardo Whittaker MD [facility]
[2018-04-14] MEDS: Insulin Lispro (humaLOG) MEDIUM Coverage SC SCH (08:16)
--- NOTE | 2018-04-14 08:53 | RAD ---
Date of service: 04/14/2018 HISTORY: follow up COMPARISON: 04/13/2018 FINDINGS: LUNGS: No significant change in bilateral perihilar infiltrates right greater than left PLEURA: No significant pleural effusion identified, no pneumothorax apparent. CARDIOVASCULAR: Aortic calcification Mild cardiomegaly no pulmonary vascular congestion. OSSEOUS STRUCTURES: No significant abnormalities. VISUALIZED UPPER ABDOMEN: Normal. OTHER FINDINGS: None. IMPRESSION: No significant change in bilateral perihilar infiltrates right greater than left
[2018-04-14] MEDS: Levothyroxine 75 MCG TAB PO SCH (09:23)
[2018-04-14] MEDS: MethylPREDNISolone 40 mg Vial IVP SCH ×2 (09:23→21:43)
[2018-04-14] MEDS: Enoxaparin 60 mg Syringe SC SCH ×2 (09:23→21:44)
[2018-04-14] MEDS: Prostat 15 g packet PO SCH (09:24)
[2018-04-14] MEDS: Vancomycin 1gm in NS 250ml 1 GM/250 ML BAG IVPB SCH (09:24)
[2018-04-14] MEDS: levoFLOXacin 750 mg in D5W 750 MG/150 ML BAG IVPB SCH (09:24)
[2018-04-14] MEDS: Nystatin 100,000 Units/ml Oral Susp 5 ml UD PO SCH (09:43)
[2018-04-14] MEDS: Insulin Reg-HIGH-Coverage SC SCH ×3 (11:44→22:04)
--- NOTE | 2018-04-14 13:20 | CP.PCM.PN ---
<Wyatt Griffin - Last Filed: 04/14/18 13:16> Subjective - Date & Time of Evaluation Date of Evaluation: 04/14/18 Time of Evaluation: 07:00 - Subjective Subjective: Infectious disease progress note: Pt seen and examined at bedside. No acute events overnight. Patient is more alert today, answering 1 word responses to questions. Denies any chest pain or sob. 12 Point ROS limited as pt mainly non verbal Objective - Vital Signs/Intake and Output Vital Signs (last 24 hours): Temp Pulse Resp BP Pulse Ox 97.9 F 66 27 H 92/53 L 100 04/13/18 16:00 04/14/18 10:00 04/13/18 20:09 04/13/18 20:00 04/13/18 19:59 Intake and Output: 04/14/18 04/14/18 06:59 18:59 Intake Total 350 Output Total 600 Balance -250 - Medications Medications: Current Medications Acetaminophen (Tylenol 325 Mg Supp) 325 mg RC Q4H PRN PRN Reason: Fever >100.4 F Last Admin: 04/11/18 16:34 Dose: 325 mg Albuterol/Ipratropium (Duoneb 3 Mg/0.5 Mg (3 Ml) Ud) 3 ml IH [id number] [facility] Last Admin: 04/14/18 07:47 Dose: 3 ml Albuterol/Ipratropium (Duoneb 3 Mg/0.5 Mg (3 Ml) Ud) 3 ml IH Q2H PRN PRN Reason: Shortness of Breath Amino Acid Protein (Prostat 15 G Packet) 15 gm PO DAILY [facility] Last Admin: 04/14/18 09:24 Dose: 15 gm Aspirin (Ecotrin) 81 mg PO DAILY [facility] Last Admin: 04/14/18 09:24 Dose: 81 mg Atorvastatin Calcium (Lipitor) 40 mg PO HS [facility] Last Admin: 04/13/18 21:30 Dose: 40 mg Clopidogrel Bisulfate (Plavix) 75 mg PO DAILY [facility] Last Admin: 04/14/18 09:23 Dose: 75 mg Clotrimazole (Mycelex Glenda) 10 mg MT 5XD [facility] Donepezil HCl (Aricept) 10 mg PO HS [facility] Enoxaparin Sodium (Lovenox) 60 mg SC 0900,2100 [facility]; Protocol Last Admin: 04/14/18 09:23 Dose: 60 mg Vancomycin HCl (Vancomycin 1gm) 1 gm in 250 mls @ 167 mls/hr IVPB Q12H [facility]; Protocol Last Admin: 04/14/18 09:24 Dose: 167 mls/hr Meropenem (Merrem Iv 1 Gm Premix) 1 gm in 50 mls @ 100 mls/hr IVPB Q8 [facility]; Protocol Last Admin: 04/14/18 06:44 Dose: 100 mls/hr Levofloxacin/Dextrose (Levaquin 750mg) 750 mg in 150 mls @ 100 mls/hr IVPB DAILY [facility]; Protocol Last Admin: 04/14/18 09:24 Dose: 100 mls/hr Insulin Human Regular (Humulin R High) 0 units SC ACHS [facility]; Protocol Last Admin: 04/14/18 11:44 Dose: 12 units Levothyroxine Sodium (Synthroid) 75 mcg PO DAILY [facility] Last Admin: 04/14/18 09:23 Dose: 75 mcg Methylprednisolone (Solu-Medrol) 20 mg IVP Q12 [facility] Last Admin: 04/14/18 09:23 Dose: 20 mg Montelukast Sodium (Singulair) 10 mg PO DAILY [facility] Last Admin: 04/14/18 09:23 Dose: 10 mg Oseltamivir Phosphate (Tamiflu Cap) 75 mg PO BID [facility]; Protocol Stop: 04/16/18 18:01 Last Admin: 04/14/18 10:18 Dose: 75 mg Pantoprazole Sodium (Protonix Susp) 40 mg PO 0600 [facility] Last Admin: 04/14/18 06:45 Dose: 40 mg Tamsulosin HCl (Flomax) 0.4 mg PO DAILY [facility] Last Admin: 04/14/18 09:23 Dose: 0.4 mg - Labs Labs: 04/14/18 05:35 04/14/18 05:35 PT 13.7 SECONDS (9.4-12.5) H 04/11/18 11:30 INR 1.19 04/11/18 11:30 APTT 32.2 Seconds (26.9-38.3) 04/14/18 05:35 - Constitutional Appears: No Acute Distress - Head Exam Head Exam: ATRAUMATIC, NORMOCEPHALIC - Eye Exam Eye Exam: EOMI - ENT Exam ENT Exam: Mucous Membranes Moist - Respiratory Exam Respiratory Exam: Clear to Ausculation Bilateral. absent: Rales, Rhonchi - Cardiovascular Exam Cardiovascular Exam: REGULAR RHYTHM, +S1, +S2 - GI/Abdominal Exam GI & Abdominal Exam: Soft, Normal Bowel Sounds. absent: Tenderness - Neurological Exam Neurological Exam: Alert, Awake - Psychiatric Exam Psychiatric exam: Normal Mood - Skin Skin Exam: Dry, Warm Assessment and Plan - Assessment and Plan (Free Text) Assessment: 77 year old male with PMH of Alzheimer's dementia, HLD, CHF with EF of 50% in 12/2017, HLD, CAD, R lower lobe pneumonia, c. albicans fungemia, hemolytic anemia, and prostate cancer, brought in by [facility] for fever and SOB. Found to be septic with fever 103.7F, tachycardic 113 and O2 due to pneumonia and influenza. Patient also found to have NSTEMI. - Continue with Yessy, Levaquin, will d/c vanco, will deescalate abx with in 48 hours - Cont Tamiflu for positive influenza - Blood and sputum cx neg thus far - F/u cardiology and pulm recs - Cont to monitor for any changes Case and plan was reviewed and discussed with Dr Schroeder. <Richard Schroeder - Last Filed: 04/14/18 15:10> Objective - Vital Signs/Intake and Output Vital Signs (last 24 hours): Temp Pulse Resp BP Pulse Ox 97.9 F 66 27 H 92/53 L 100 04/13/18 16:00 04/14/18 10:00 04/13/18 20:09 04/13/18 20:00 04/13/18 19:59 Intake and Output: 04/14/18 04/14/18 06:59 18:59 Intake Total 350 Output Total 600 Balance -250 - Medications Medications: Current Medications Acetaminophen (Tylenol 325 Mg Supp) 325 mg RC Q4H PRN PRN Reason: Fever >100.4 F Last Admin: 04/11/18 16:34 Dose: 325 mg Albuterol/Ipratropium (Duoneb 3 Mg/0.5 Mg (3 Ml) Ud) 3 ml IH [id number] [facility] Last Admin: 04/14/18 13:35 Dose: 3 ml Albuterol/Ipratropium (Duoneb 3 Mg/0.5 Mg (3 Ml) Ud) 3 ml IH Q2H PRN PRN Reason: Shortness of Breath Amino Acid Protein (Prostat 15 G Packet) 15 gm PO DAILY [facility] Last Admin: 04/14/18 09:24 Dose: 15 gm Aspirin (Ecotrin) 81 mg PO DAILY [facility] Last Admin: 04/14/18 09:24 Dose: 81 mg Atorvastatin Calcium (Lipitor) 40 mg PO HS [facility] Last Admin: 04/13/18 21:30 Dose: 40 mg Clopidogrel Bisulfate (Plavix) 75 mg PO DAILY [facility] Last Admin: 04/14/18 09:23 Dose: 75 mg Clotrimazole (Mycelex Glenda) 10 mg MT 5XD [facility] Last Admin: 04/14/18 14:32 Dose: 10 mg Donepezil HCl (Aricept) 10 mg PO HS [facility] Enoxaparin Sodium (Lovenox) 60 mg SC 0900,2100 [facility]; Protocol Last Admin: 04/14/18 09:23 Dose: 60 mg Meropenem (Merrem Iv 1 Gm Premix) 1 gm in 50 mls @ 100 mls/hr IVPB Q8 [facility]; Protocol Last Admin: 04/14/18 14:31 Dose: 100 mls/hr Levofloxacin/Dextrose (Levaquin 750mg) 750 mg in 150 mls @ 100 mls/hr IVPB DAILY [facility]; Protocol Last Admin: 04/14/18 09:24 Dose: 100 mls/hr Insulin Human Regular (Humulin R High) 0 units SC ACHS [facility]; Protocol Last Admin: 04/14/18 11:44 Dose: 12 units Levothyroxine Sodium (Synthroid) 75 mcg PO DAILY [facility] Last Admin: 04/14/18 09:23 Dose: 75 mcg Methylprednisolone (Solu-Medrol) 20 mg IVP Q12 [facility] Last Admin: 04/14/18 09:23 Dose: 20 mg Montelukast Sodium (Singulair) 10 mg PO DAILY [facility] Last Admin: 04/14/18 09:23 Dose: 10 mg Oseltamivir Phosphate (Tamiflu Cap) 75 mg PO BID [facility]; Protocol Stop: 04/16/18 18:01 Last Admin: 04/14/18 10:18 Dose: 75 mg Pantoprazole Sodium (Protonix Susp) 40 mg PO 0600 [facility] Last Admin: 04/14/18 06:45 Dose: 40 mg Tamsulosin HCl (Flomax) 0.4 mg PO DAILY [facility] Last Admin: 04/14/18 09:23 Dose: 0.4 mg - Labs Labs: 04/14/18 05:35 04/14/18 05:35 PT 13.7 SECONDS (9.4-12.5) H 04/11/18 11:30 INR 1.19 04/11/18 11:30 APTT 32.2 Seconds (26.9-38.3) 04/14/18 05:35 Assessment and Plan - Assessment and Plan (Free Text) Assessment: Infectious diseases Attending Physician Attestation Patient seen and examined, discussed with senior medical transcriptionist. I have reviewed the patient's history of present illness, past medical, social, personal and family histories, pertinent physical exam findings, course so far in this hospital admission, pertinent laboratory and imaging results. I agree with the above findings, assessment and plan. In addition, we can d/c Vancomycin since MRSA nares is negative. Continue Merrem and Levaquin for patient with HCAP on top of Influenza A infection with severe sepsis. Patient is clinically improving. Will trend PCT and monitor clinically.
--- NOTE | 2018-04-14 14:18 | PN ---
DATE: 04/14/2018 CARDIOLOGY FOLLOWUP SUBJECTIVE: The patient is awake without dyspnea. PHYSICAL EXAMINATION: VITAL SIGNS: Blood pressure 104 systolic, heart rate is stable. NECK: Negative JVD. LUNGS: Minimal rhonchi. HEART: Reveals S1, S2. EXTREMITIES: Trace edema. LABORATORY DATA: Hemoglobin is 10.4. Chemistries, BUN and creatinine is 33 and 0.8 with a glucose of 273. IMPRESSION: 1. Bilateral pneumonia. 2. Resolution of congestive heart failure. 3. Documented triple-vessel coronary artery disease. 4. Influenza A. 5. Bronchospasm. 6. Anemia. Given these findings, I have discussed with the patient's , the patient's daughter who lives here as well as his daughter who lives down in [place], about the risks, benefits and therapeutic options for treatment of his triple-vessel CAD. The ranges of therapeutic options I have discussed includes bypass surgery, multivessel PTCA and stent and continued medical therapy. All questions were answered. I would feel that bypass surgery would not be appropriate, given his multiple comorbidities. I am awaiting decision by the family about which option they head to for his coronary artery disease. Janusz Landry MD
--- NOTE | 2018-04-14 14:28 | PN ---
DATE: 04/14/2018 SUBJECTIVE: I saw him in the intensive care unit. He is about to be fed. He is talking to me better this morning stronger, less lethargic, looking at me better, and he is hungry. MEDICATIONS: He is on Aricept, DuoNeb, Ecotrin, Flomax, insulin, Levaquin, Lipitor, Lovenox, Merrem IV, nystatin, Plavix, Pro-Stat, Protonix, Singulair, Solu-Medrol 20, Synthroid, Tamiflu, Tylenol, and vancomycin IV. PHYSICAL EXAMINATION: VITAL SIGNS: He has 97.9 temperature, 57 pulse, 87/49 blood pressure, 19 respiratory rate, and his oxygen saturation is up to 100. HEENT: Head is atraumatic and normocephalic. HEART: Regular rate. LUNGS: Decreased breath sounds, but clear. ABDOMEN: Soft. EXTREMITIES: No edema. LABORATORY DATA: He has a 3.6 white count, 10.4 hemoglobin, 32.1 hematocrit with 92 platelets. He has 147 sodium, potassium 4.2, BUN is 32, creatinine 0.8, GFR is greater than 52, sugar is 273, calcium is 9, total bili is 0.5, AST is 42, ALT is 52, alk phos is 56. ASSESSMENT AND PLAN: I called in Dr. Acevedo about the elevated blood sugars. She is an grip boss. Chest x-ray done today shows no significant change in bilateral infiltrates right greater than left, being seen by Pulmonary, Infectious Disease, and Cardiology. He is getting strong, I do think he is improving, he has non-ST segment elevation myocardial infarction, influenza A, pneumonia. I will get him out of bed to chair, see if he gets some physical therapy if possible and we will see if we could get him stronger and we will call. Sean Nicholson DO MTDD
--- NOTE | 2018-04-14 16:45 | CP.PCM.PCO ---
Physician Communication Note - Physician Communication Note Physician Communication Note: per I.D 1more day isolation,cardiology awaits family feb. reg PCI vs.med tx
--- NOTE | 2018-04-15 01:25 | CON ---
DATE: 04/14/2018 ENDOCRINOLOGY CONSULT LOCATION: ICU 128, room 7. HISTORY OF PRESENT ILLNESS: This is a 77-year-old male admitted with progressive shortness of breath and generalized body weakness and concomitant febrile episodes with productive cough and evaluated to have an acute exacerbation of COPD with concomitant pneumonitis currently with a positive flu test and has been given multiple IV antibiotics and is now being referred for endocrine evaluation with supervening hyperglycemic accelerations from the intercurrent IV steroids therapy as given. PAST MEDICAL HISTORY: History of hypothyroidism, on levothyroxine replacement therapy at 75 mcg daily. No prior history of any diabetic condition or any intake of any oral hypoglycemic therapy as noted. History of Parkinson's disease, on Sinemet therapy; history of advanced Alzheimer's dementia; and the patient is nonverbal and is the resident of [facility]; and history of coronary artery disease with previous [id number] elevation myocardial infarction. He also had previous episode of congestive heart failure with an ejection fraction of 50% as noted, history of COPD and with prior nicotine use as noted. History of prostate carcinoma with brachytherapy, history of hemolytic anemia and also had previous right lower lobe pneumonia with fungemia. FAMILY HISTORY: Positive for hypertension and heart disease. SOCIAL HISTORY: The patient has a supportive family and is a previous cigar smoker many years ago. REVIEW OF SYSTEMS: Not possible at this time as the patient is nonverbal, but the chart has been reviewed in detail and the consultants notes and management have also been reviewed in detail. PHYSICAL EXAMINATION: GENERAL: Average built male in no apparent distress. VITAL SIGNS: Blood pressure of 150/90, pulse of 100 beats per minute and regular, temperature 103, respirations 20, height is 5 feet 7 inches, and weight is 141 pounds. HEENT: Head; normocephalic. Eyes; anicteric with pink conjunctivae. Funduscopy not possible at this time. Ears, nose and throat otherwise normal. NECK: Supple. Thyroid gland is normal in size. No carotid bruits or cervical adenopathy. CARDIOPULMONARY: Some adynamic precordium. S1 and S2 is rapid and regular. LUNGS: Shows scattered rhonchi bilaterally. ABDOMEN: Flat and soft with positive bowel sounds. EXTREMITIES: No peripheral edema. Pulses are +2 bilaterally. LABORATORY DATA: His chemistry showed a BUN of 31, sodium 146, potassium 4.2, chloride 119, CO2 of 23, glucose 265, and creatinine 0.7. His glucose levels have ranged from 296 to 351 mg/dL. ASSESSMENT: This is a 77-year-old male with uncontrolled and decompensated type 2 insulin requiring diabetes, which is only a transient phenomenon from the intercurrent IV steroid therapy as given with this admission and supervening hyperglycemic accelerations thereof. This is also related to the increased insulin resistance from the steroid therapy as given, which would resolve as the steroids are tapered off accordingly. He also has a history of hypothyroidism and has been controlled on levothyroxine replacement therapy as given. He also has concomitant acute pneumonitis, possibly viral in etiology, although bacterial etiology has been worked up at this time. He has to receive multiple IV antibiotics as given with this admission. He also has significant coronary artery disease with the previous myocardial infarction and congestive heart failure with an ejection fraction of 50% as noted. PLAN OF MANAGEMENT: We will modify his current insulin regimen and switch him over to a basal and bolus insulin drug combination only for inpatient diabetic management. We will add Levemir 30 units subcutaneously at bedtime daily as ordered. We will also add Humalog at 12 units t.i.d. before meals as given. We will modify coverage scale to obviate hypoglycemia and detailed orders have been given. We will obtain hemoglobin A1c to ascertain his prior glycemic control. We will also obtain baseline thyroid function studies and titrate his dose regimen as indicated. We will follow. Gosia Acevedo MD
[2018-04-15] MEDS: Albuterol-Ipratrop 3 mg / 0.5 (3 ml) UD IH SCH ×4 (02:21→20:20)
[2018-04-15] MEDS: Meropenem IV 1 gm in NS 1 GM/50 ML BAG IVPB SCH ×3 (06:20→21:50)
[2018-04-15] MEDS: Pantoprazole 40 mg Susp UD PO SCH (06:20)
[2018-04-15 06:51] LABS: GRAN # 3.08 (1.4-6.5); GRAN % 85.1 % (50.0-68.0); LYMPH # 0.4 (1.2-3.4); LYMPH % 9.7 % (22.0-35.0); MEAN CELL VOLUME 95.1 fl (80.0-105.0); MEAN CORPUSCULAR HGB CONC 31.5 g/dl (31.0-37.0); MEAN PLATELET VOLUME 10.1 fl (7.0-11.0); MONO # 0.2 (0.1-0.6); MONO % 5.2 % (1.0-6.0); RBC 3.67 10^6/uL (3.5-6.1); RED CELL DISTRIBUTION WIDTH 14.6 % (11.5-14.5); WHITE BLOOD COUNT 3.6 10^3/uL (4.5-11.0)
[2018-04-15 07:12] LABS: T4 7.6 ug/dL (5.5-11.0)
[2018-04-15 07:13] LABS: ALB/GLOB RATIO 1.4 (1.1-1.8); ALT/SGPT 58 U/L (7-56); AST/SGOT 31 U/L (17-59); BLOOD UREA NITROGEN 30 mg/dL (7-21); CALCIUM 9.3 mg/dL (8.4-10.5); GFR NON-AFRICAN AMERICAN > 60
--- NOTE | 2018-04-15 07:55 | PN ---
DATE: 04/15/2018(245am-725am) SUBJECTIVE: The patient appears comfortable this morning. He is not short of breath at rest. PHYSICAL EXAMINATION: VITAL SIGNS: Temperature is 97.9, pulse is 55, respiratory rate is 20, last blood pressure recorded is 108/62. Oxygen saturation on nasal cannula is 98%. HEENT: Normocephalic, atraumatic. No JVD. CARDIOVASCULAR: Positive S1, S2. No S3 gallop. LUNGS: Crackles at both bases. Much less/minimal rhonchi. No wheezing. EXTREMITIES: Mild edema. No cyanosis, no clubbing. Calves are nontender to palpation. GASTROINTESTINAL: Abdomen is soft, nontender and nondistended. Bowel sounds are positive. SKIN: No acute rash. NEUROLOGIC: Exam limited at the present time. PERTINENT LABORATORY DATA: Chest x-ray was done and reviewed. The right lower lobe infiltrate has primarily resolved. There is a persistent small patchy left lower lobe infiltrate--decreased in size. The film is much improved overall. Official results are pending. IMPRESSION: 1. Bilateral lower lobe pneumonia. 2. Non-ST elevation myocardial infarction. 3. Influenza A positivity. 4. Mild bronchospasm. 5. Mild anemia. PLAN: The patient appears comfortable this morning. He is not short of breath at rest. He is very awake and alert. I did discuss the case with night nurse at length. The night nurse stated the patient had an uneventful night. I did review the chest x-ray as above. Findings are noted. The right lower lobe infiltrate has almost completely resolved. The left lower lobe infiltrate is persistent, but decreased in size. Official results are pending. On physical exam, there is much less bronchospasm noted. I will continue the current nebulizer treatments and low-dose intravenous steroids for now. I would continue with the antibiotic coverage as per Infectious Disease. Input by Dr. Schroeder is noted. The temperatures have now fully resolved. Input by Cardiology (Dr. Landry) is also noted. Clinical status of the patient is significantly improved - compared to his initial presentation. However, given the above, the future status/prognosis for this patient does remain guarded. I will discuss the above with the entire ICU team in the next few moments. I will also discuss the above with the attending physician later this morning. Medardo Whittaker MD [facility] # [id number] [place]
[2018-04-15] MEDS: Enoxaparin 60 mg Syringe SC SCH (08:21)
[2018-04-15] MEDS: Insulin Lispro (humaLOG) LOW Coverage SC SCH ×4 (08:22→22:00)
[2018-04-15] MEDS: Insulin Lispro 1 UNITS/0.01 ML SC SCH ×3 (08:22→17:25)
--- NOTE | 2018-04-15 08:31 | CP.PCM.PN ---
<Wyatt Griffin - Last Filed: 04/15/18 13:09> Subjective - Date & Time of Evaluation Date of Evaluation: 04/15/18 Time of Evaluation: 07:00 - Subjective Subjective: Infectious disease progress note: Pt seen and examined at bedside. No acute events overnight. Patient responding to questions. States that he is doing well,Denies any cough, chest pain or sob. 12 Point ROS neg other than stated above Objective - Vital Signs/Intake and Output Vital Signs (last 24 hours): Temp Pulse Resp BP Pulse Ox 97.9 F 54 L 27 H 92/53 L 100 04/13/18 16:00 04/15/18 02:00 04/13/18 20:09 04/13/18 20:00 04/13/18 19:59 - Medications Medications: Current Medications Acetaminophen (Tylenol 325 Mg Supp) 325 mg RC Q4H PRN PRN Reason: Fever >100.4 F Last Admin: 04/11/18 16:34 Dose: 325 mg Albuterol/Ipratropium (Duoneb 3 Mg/0.5 Mg (3 Ml) Ud) 3 ml IH [id number] [facility] Last Admin: 04/15/18 07:13 Dose: 3 ml Albuterol/Ipratropium (Duoneb 3 Mg/0.5 Mg (3 Ml) Ud) 3 ml IH Q2H PRN PRN Reason: Shortness of Breath Amino Acid Protein (Prostat 15 G Packet) 15 gm PO DAILY [facility] Last Admin: 04/14/18 09:24 Dose: 15 gm Aspirin (Ecotrin) 81 mg PO DAILY [facility] Last Admin: 04/14/18 09:24 Dose: 81 mg Atorvastatin Calcium (Lipitor) 40 mg PO HS [facility] Last Admin: 04/14/18 21:44 Dose: 40 mg Clopidogrel Bisulfate (Plavix) 75 mg PO DAILY [facility] Last Admin: 04/14/18 09:23 Dose: 75 mg Clotrimazole (Mycelex Glenda) 10 mg MT 5XD [facility] Last Admin: 04/15/18 06:20 Dose: 10 mg Donepezil HCl (Aricept) 10 mg PO HS [facility] Enoxaparin Sodium (Lovenox) 60 mg SC 0900,2100 [facility]; Protocol Last Admin: 04/14/18 21:44 Dose: 60 mg Meropenem (Merrem Iv 1 Gm Premix) 1 gm in 50 mls @ 100 mls/hr IVPB Q8 [facility]; Protocol Last Admin: 04/15/18 06:20 Dose: 100 mls/hr Levofloxacin/Dextrose (Levaquin 750mg) 750 mg in 150 mls @ 100 mls/hr IVPB DAILY [facility]; Protocol Last Admin: 04/14/18 09:24 Dose: 100 mls/hr Insulin Human Lispro (Humalog Low) 0 units SC ACHS [facility]; Protocol Insulin Human Lispro (Humalog) 12 units SC AC [facility] Levothyroxine Sodium (Synthroid) 75 mcg PO DAILY [facility] Last Admin: 04/14/18 09:23 Dose: 75 mcg Methylprednisolone (Solu-Medrol) 20 mg IVP Q12 [facility] Last Admin: 04/14/18 21:43 Dose: 20 mg Montelukast Sodium (Singulair) 10 mg PO DAILY [facility] Last Admin: 04/14/18 09:23 Dose: 10 mg Oseltamivir Phosphate (Tamiflu Cap) 75 mg PO BID [facility]; Protocol Stop: 04/16/18 18:01 Last Admin: 04/14/18 18:49 Dose: 75 mg Pantoprazole Sodium (Protonix Susp) 40 mg PO 0600 [facility] Last Admin: 04/15/18 06:20 Dose: 40 mg Tamsulosin HCl (Flomax) 0.4 mg PO DAILY [facility] Last Admin: 04/14/18 09:23 Dose: 0.4 mg - Labs Labs: 04/15/18 06:20 04/15/18 06:20 PT 13.7 SECONDS (9.4-12.5) H 04/11/18 11:30 INR 1.19 04/11/18 11:30 APTT 30.3 Seconds (26.9-38.3) 04/15/18 06:20 - Constitutional Appears: No Acute Distress - Head Exam Head Exam: ATRAUMATIC, NORMOCEPHALIC - Eye Exam Eye Exam: EOMI - ENT Exam ENT Exam: Mucous Membranes Moist - Respiratory Exam Respiratory Exam: Clear to Ausculation Bilateral (no r/r/w) - Cardiovascular Exam Cardiovascular Exam: RRR, +S1, +S2 - GI/Abdominal Exam GI & Abdominal Exam: Soft, Normal Bowel Sounds - Extremities Exam Extremities Exam: absent: Calf Tenderness, Pedal Edema - Neurological Exam Neurological Exam: Alert, Awake - Psychiatric Exam Psychiatric exam: Normal Mood - Skin Skin Exam: Dry, Warm Assessment and Plan - Assessment and Plan (Free Text) Assessment: 77 year old male with PMH of Alzheimer's dementia, HLD, CHF with EF of 50% in 12/2017, HLD, CAD, R lower lobe pneumonia, c. albicans fungemia, hemolytic anemia, and prostate cancer, brought in by [facility] for fever and SOB. Found to be septic with fever 103.7F, tachycardic 113 and O2 due to pneumonia and influenza. Patient also found to have NSTEMI. Patient clinically doing better. - Continue with Yessy, Levaquin, will deescalate abx with in 24 hours - d/c vanco as MRSA nare neg - Cont Tamiflu for influenza - Day 4 of , Will d/c tomorrow - Blood and sputum cx neg thus far - F/u cardiology and pulm recs - Cont to monitor for any changes Case and plan was reviewed and discussed with Dr Schroeder. <Richard Schroeder - Last Filed: 04/15/18 14:52> Objective - Vital Signs/Intake and Output Vital Signs (last 24 hours): Temp Pulse Resp BP Pulse Ox 97.9 F 54 L 27 H 92/53 L 100 04/13/18 16:00 04/15/18 02:00 04/13/18 20:09 04/13/18 20:00 04/13/18 19:59 - Medications Medications: Current Medications Acetaminophen (Tylenol 325 Mg Supp) 325 mg RC Q4H PRN PRN Reason: Fever >100.4 F Last Admin: 04/11/18 16:34 Dose: 325 mg Albuterol/Ipratropium (Duoneb 3 Mg/0.5 Mg (3 Ml) Ud) 3 ml IH [id number] [facility] Last Admin: 04/15/18 13:00 Dose: 3 ml Albuterol/Ipratropium (Duoneb 3 Mg/0.5 Mg (3 Ml) Ud) 3 ml IH Q2H PRN PRN Reason: Shortness of Breath Amino Acid Protein (Prostat 15 G Packet) 15 gm PO DAILY [facility] Last Admin: 04/15/18 10:10 Dose: 15 gm Aspirin (Ecotrin) 81 mg PO DAILY [facility] Last Admin: 04/15/18 10:07 Dose: 81 mg Atorvastatin Calcium (Lipitor) 40 mg PO HS [facility] Last Admin: 04/14/18 21:44 Dose: 40 mg Clopidogrel Bisulfate (Plavix) 75 mg PO DAILY [facility] Last Admin: 04/15/18 10:07 Dose: 75 mg Clotrimazole (Mycelex Glenda) 10 mg MT 5XD [facility] Last Admin: 04/15/18 14:39 Dose: 10 mg Donepezil HCl (Aricept) 10 mg PO HS [facility] Enoxaparin Sodium (Lovenox) 40 mg SC DAILY [facility]; Protocol Last Admin: 04/15/18 10:08 Dose: Not Given Meropenem (Merrem Iv 1 Gm Premix) 1 gm in 50 mls @ 100 mls/hr IVPB Q8 [facility]; Protocol Last Admin: 04/15/18 14:39 Dose: 100 mls/hr Levofloxacin/Dextrose (Levaquin 750mg) 750 mg in 150 mls @ 100 mls/hr IVPB DAILY [facility]; Protocol Last Admin: 04/15/18 10:07 Dose: 100 mls/hr Insulin Human Lispro (Humalog Low) 0 units SC ACHS [facility]; Protocol Last Admin: 04/15/18 12:36 Dose: Not Given Insulin Human Lispro (Humalog) 12 units SC AC [facility] Last Admin: 04/15/18 12:36 Dose: 12 units Levothyroxine Sodium (Synthroid) 75 mcg PO DAILY [facility] Last Admin: 04/15/18 10:08 Dose: 75 mcg Methylprednisolone (Solu-Medrol) 20 mg IVP Q12 [facility] Last Admin: 04/15/18 10:07 Dose: 20 mg Montelukast Sodium (Singulair) 10 mg PO DAILY [facility] Last Admin: 04/15/18 10:08 Dose: 10 mg Oseltamivir Phosphate (Tamiflu Cap) 75 mg PO BID [facility]; Protocol Stop: 04/16/18 18:01 Last Admin: 04/15/18 10:08 Dose: 75 mg Pantoprazole Sodium (Protonix Susp) 40 mg PO 0600 [facility] Last Admin: 04/15/18 06:20 Dose: 40 mg Tamsulosin HCl (Flomax) 0.4 mg PO DAILY [facility] Last Admin: 04/15/18 10:08 Dose: 0.4 mg - Labs Labs: 04/15/18 06:20 04/15/18 06:20 PT 13.7 SECONDS (9.4-12.5) H 04/11/18 11:30 INR 1.19 04/11/18 11:30 APTT 30.3 Seconds (26.9-38.3) 04/15/18 06:20 Assessment and Plan - Assessment and Plan (Free Text) Assessment: Infectious diseases Attending Physician Attestation Patient seen and examined, discussed with medical consultant. I have reviewed the patient's history of present illness, past medical, social, personal and family histories, pertinent physical exam findings, course so far in this hospital admission, pertinent laboratory and imaging results. I agree with the above findings, assessment and plan. In addition, continue Merrem and Levaquin for severe sepsis with HAP, on top of Influenza A infection and acute NSTEMI. Finish 5 days of Tamiflu. Will continue to monitor clinically.
--- NOTE | 2018-04-15 09:59 | RAD ---
Date of service: 04/15/2018 HISTORY: follow up COMPARISON: 04/15/2018 FINDINGS: LUNGS: No active pulmonary disease. PLEURA: No significant pleural effusion identified, no pneumothorax apparent. CARDIOVASCULAR: No aortic atherosclerotic calcification present. Normal cardiac size. Improved pulmonary vascular congestion OSSEOUS STRUCTURES: No significant abnormalities. VISUALIZED UPPER ABDOMEN: Normal. OTHER FINDINGS: None. IMPRESSION: Improved pulmonary vascular congestion
[2018-04-15] MEDS: MethylPREDNISolone 40 mg Vial IVP SCH ×2 (10:07→21:48)
[2018-04-15] MEDS: levoFLOXacin 750 mg in D5W 750 MG/150 ML BAG IVPB SCH (10:07)
[2018-04-15] MEDS: Enoxaparin 40 mg Syringe SC SCH (10:08)
[2018-04-15] MEDS: Levothyroxine 75 MCG TAB PO SCH (10:08)
[2018-04-15] MEDS: Prostat 15 g packet PO SCH (10:10)
--- NOTE | 2018-04-15 11:31 | PN ---
DATE: 04/15/2018 SUBJECTIVE: The patient is a asymptomatic. No chest pain noted. PHYSICAL EXAMINATION: VITAL SIGNS: Stable, heart rate is stable. NECK: Negative JVD. LUNGS: Without rales. HEART: S1, S2. EXTREMITIES: Without edema. LABORATORY DATA: Hemoglobin is 11. BUN and creatinine are unremarkable. IMPRESSION: 1. Remote nmi-FB-[id number] myocardial infarction. 2. Diabetes mellitus. 3. Documented triple-vessel coronary artery disease. 4. Pneumonia. 5. Status post influenza infection. 6. Anemia. PLAN: Given these findings, we will continue to manage the patient's coronary artery disease medically at this time. The family is aware of the therapeutic alternatives. Janusz Landry MD
--- NOTE | 2018-04-15 12:39 | PN ---
DATE: 04/15/2018 SUBJECTIVE: The patient is in the Intensive Care Unit. He is sitting up in bed. He is actually trying to feed himself, not doing a great job of it, but at least he is trying, he is talking better. He is alert. He is on Aricept, DuoNeb, Ecotrin, Flomax, insulin, Levaquin, Lipitor, Lovenox, Merrem, Mycelex, Plavix, Pro-Stat, Protonix, Singulair, Solu-Medrol, Synthroid, Tamiflu, and Tylenol. He is definitely improving since when he got to the hospital. He is more alert and more animated. He smiles and laughs at me. PHYSICAL EXAMINATION: VITAL SIGNS: He has a 97.9 temperature, 69 pulse, 104/59 blood pressure, 21 respiratory rate, and 100% O2 saturation. HEENT: Head is atraumatic and normocephalic. Throat is moist. NECK: Supple. HEART: Regular rate. LUNGS: Decreased breath sounds, but clear. ABDOMEN: Soft. EXTREMITIES: No edema. LABORATORY DATA: He has a 3.6 white count, 11 hemoglobin, 34.9 hematocrit, and 111 platelets; 145 sodium, potassium 4.5, BUN 30, and creatinine 0.7. GFR is greater than 60, sugar is 257, calcium is 9.3, total bili is 0.68, AST 31, ALT 58, alk phos 56, total protein is 5.2, and TSH is 1.01. Positive for influenza. ASSESSMENT AND PLAN: He is being seen by Infectious Disease, [facility], and Cardiology. He had a chest x-ray done on 04/15/2018, it showed improved pulmonary vascular congestion. He is improving, I will take it. We will continue aggressive treatment and care. He has bilateral pneumonia, congestive heart failure, and flu. I will continue aggressive treatment and care Sean Nicholson DO MTDD
--- NOTE | 2018-04-15 13:23 | CP.PCM.PCO ---
Physician Communication Note - Physician Communication Note Physician Communication Note: Pt's last dose of antibx should be Wednesday, awaiting [facility] acceptance,
--- NOTE | 2018-04-15 13:25 | CP.PCM.PCO ---
Physician Communication Note - Physician Communication Note Physician Communication Note: NSTEMI, card awaiting family decision re PCI vs. Medical tx
--- NOTE | 2018-04-15 18:23 | PN ---
DATE: 04/15/2018 SUBJECTIVE: This is a 77-year-old male admitted with marked hyperglycemic accelerations and is now being followed with significant cardiac vasculopathy and recent myocardial infarction and is now being followed closely for hemodynamic monitoring in the ICU. Moreover, he was febrile with intercurrent acute pneumonitis as noted and is receiving IV antibiotic management as given. His glycemic levels are fluctuating and the glucose values have ranged from 320 to 393 mg/dL. His chemistry showed a BUN of 33, sodium 147, potassium 4.2, chloride 117, glucose 273 and creatinine 0.8. His CO2 was 24. ASSESSMENT: This is a 77-year-old male with uncontrolled and decompensated type 2 insulin-requiring diabetes precipitated by the intercurrent IV steroid therapy as given with transient glycemic accelerations from the increased insulin resistance thereof as noted. There was no prior history of any diabetic condition, no any intake of oral hypoglycemic therapy as given. He also has significant coronary artery disease with a prior myocardial infarction as noted. Moreover, he also has advanced Alzheimer's dementia and is currently nonverbal at this time. PLAN OF MANAGEMENT: We will continue the modified basal and bolus insulin regimen to allow for dose equilibration and keep him on the same Humalog given as 12 units t.i.d. before meals as ordered today. We will also continue the basal insulin with Levemir given as 30 units subcu at bedtime daily as given. We will continue the low-dose correction scale using Humalog insulin as given to obviate hypoglycemia. We will continue the IV hydration and also obtain serial chemistries and supplement accordingly as needed. We will follow. Gosia Acevedo MD
[2018-04-16] MEDS: Albuterol-Ipratrop 3 mg / 0.5 (3 ml) UD IH SCH ×4 (02:10→20:11)
[2018-04-16 05:42] LABS: ALB/GLOB RATIO 1.5 (1.1-1.8); ALBUMIN 3.3 g/dL (3.0-4.8); ALT/SGPT 55 U/L (7-56); AST/SGOT 31 U/L (17-59); BLOOD UREA NITROGEN 31 mg/dL (7-21); CALCIUM 9.1 mg/dL (8.4-10.5); GFR NON-AFRICAN AMERICAN > 60
[2018-04-16] MEDS: Meropenem IV 1 gm in NS 1 GM/50 ML BAG IVPB SCH (06:04)
[2018-04-16] MEDS: Pantoprazole 40 mg Susp UD PO SCH (06:04)
[2018-04-16 06:06] LABS: HEMOGLOBIN 11.2 g/dL (14.0-18.0); LYMPH # 0.4 (1.2-3.4); LYMPH % 8.1 % (22.0-35.0); MEAN CELL VOLUME 95.4 fl (80.0-105.0); MEAN CORPUSCULAR HEMOGLOBIN 30.6 pg (25.0-35.0); MEAN CORPUSCULAR HGB CONC 32.1 g/dl (31.0-37.0); MEAN PLATELET VOLUME 10.8 fl (7.0-11.0); MONO # 0.3 (0.1-0.6); MONO % 6.9 % (1.0-6.0); RBC 3.66 10^6/uL (3.5-6.1); RED CELL DISTRIBUTION WIDTH 14.2 % (11.5-14.5); WHITE BLOOD COUNT 4.8 10^3/uL (4.5-11.0)
[2018-04-16] MEDS: Insulin Lispro 1 UNITS/0.01 ML SC SCH ×3 (07:30→18:01)
[2018-04-16] MEDS: Insulin Lispro (humaLOG) LOW Coverage SC SCH ×4 (07:30→21:58)
[2018-04-16] MEDS: Enoxaparin 40 mg Syringe SC SCH (09:18)
[2018-04-16] MEDS: Prostat 15 g packet PO SCH (09:20)
[2018-04-16] MEDS: Levothyroxine 75 MCG TAB PO SCH (09:31)
[2018-04-16] MEDS: MethylPREDNISolone 40 mg Vial IVP SCH ×2 (09:31→21:59)
--- NOTE | 2018-04-16 12:19 | PN ---
DATE: 04/16/2018 SUBJECTIVE: The patient is seen in 128, bed 7, comfortable. Nurse caring for the patient last night states that the patient had an uneventful night. No fevers. No chills. Mild shortness of breath. PHYSICAL EXAMINATION: VITAL SIGNS: Temperature 97, blood pressure 107/50, respiratory rate 22, heart rate 57. HEENT: Examination of HEENT is unremarkable. NECK: Supple. LUNGS: Decreased breath sounds. HEART: Normal S1, S2. ABDOMEN: Soft, nontender. LABORATORY DATA: White count 4.8, hemoglobin 11, platelets 143 and coagulation is noted. Chemistries reveals BUN of 31, creatinine of 0.7. Urinalysis is noted. Influenza A is positive. Microbiology reveals yeast in the urine. Nares, MRSA is not detected. The blood cultures reveal no growth. Review of orders reveals the patient to be on IV Levaquin, Solu-Medrol and Tamiflu. The patient had a chest x-ray yesterday, which revealed the lungs to be clear. The patient also had a procalcitonin on 04/15/2018 which is down to 0.91. ASSESSMENT AND PLAN: This is a 77-year-old male with history of Alzheimer's dementia, hyperlipidemia, congestive heart failure with ejection fraction of 50%, hyperlipidemia, coronary artery disease, right lower lobe pneumonia, history of Haylee albicans fungemia, hemolytic anemia, prostate cancer. Admitted from the care home with fever of 103 and tachycardia with sepsis secondary to influenza and with bacterial pneumonia with elevated procalcitonin and [id number]-stnjrwkva myocardial infarction, on Levaquin and prednisone and Tamiflu. The patient with severe sepsis with a healthcare-associated pneumonia. Currently, also on meropenem day #6. We will discontinue the meropenem and change the Levaquin to p.o. Today is day #5 of Levaquin. We will follow closely with you. We will repeat the procalcitonin today. Padilla Goode MD
[2018-04-16] MEDS: levoFLOXacin 500 MG TAB PO SCH (12:20)
--- NOTE | 2018-04-16 13:43 | PN ---
DATE: 04/16/2018 SUBJECTIVE: I saw him in Intensive Care Unit. He is much more alert. He is eating. He is talking to me better. He is getting stronger. He is on Aricept, DuoNebs, Ecotrin, Flomax, insulin, Levaquin, Lipitor, Lovenox, Mycelex, Plavix, Pro-Stat, Protonix, Singulair, Solu-Medrol, Synthroid, Tamiflu, and Tylenol. PHYSICAL EXAMINATION: GENERAL: He is much more alert. He is looking stronger. He was talking with me this morning. He is pleasantly confused. VITAL SIGNS: He has a 97.9 temperature, 61 pulse, 116/49 blood pressure, 21 respiratory rate, 90% O2 sat on room air. He when taken off the oxygen. HEENT: His head is atraumatic, normocephalic. HEART: Regular rate. LUNGS: Clear to auscultation. ABDOMEN: Soft. EXTREMITIES: No edema. LABORATORY DATA: He has a 4.8 white count, 11.2 hemoglobin, 34.9 hematocrit with 143 platelets, all better. The lactate dropped to 1.7 better, 142 sodium, potassium 4.5, BUN 31, creatinine 0.7, which is about his baseline. Last blood sugar was 235, calcium was 9.1, total bili is 0.7, AST is 31, ALT is 55, alk phos 54, total protein is 5.5. TSH is 1.01. Urine was small. Positive for influenza A. MEDICATIONS: He is on Aricept, DuoNebs, Ecotrin, Flomax, insulin, Levaquin, Lipitor, Lovenox, Mycelex, Plavix, Pro-Stat, Protonix, Singulair, Solu-Medrol, Synthroid, Tamiflu, and Tylenol. ASSESSMENT AND PLAN: Overall, he is doing much better. The plan is to [facility] him back to his [facility] tomorrow and hopefully continue to improve. Sean Nicholson DO [facility]
--- NOTE | 2018-04-16 16:43 | PN ---
DATE: 04/16/2018 ENDO FOLLOWUP NOTE LOCATION: ICU 128, room 7. SUBJECTIVE: This is a 77-year-old male presenting here with progressive shortness of breath and fever and evaluated to have acute exacerbation of COPD with underlying pneumonitis. His glycemic levels are fluctuating as expected with a transient usage of IV steroid therapy as noted. LABORATORY DATA: His latest glucose values have ranged from to 275 mg/dL. His chemistry showed BUN of 31, sodium 142, potassium 4.5, chloride 104, CO2 of 32, glucose 235 and creatinine 0.7. His thyroid study showed a T4 of 7.6 with a TSH of 1.01. ASSESSMENT He remains clinically euthyroid at this time and also lab testing as confirmed that he is biochemically euthyroid also at this time. He also has uncontrolled type 2 insulin-requiring diabetes with the intercurrent IV steroid therapy, causing transient hyperglycemic accelerations from the increased insulin-resistance thereof. PLAN OF MANAGEMENT: We will modify once again his basal and bolus insulin regimen and increase the Humalog to 12 units t.i.d. before meals to start today as ordered. We will continue the basal insulin given as Levemir at 30 units subcu at bedtime daily as given. We will obtain serial chemistries and supplement accordingly as needed. We will follow with you. Gosia Acevedo MD
[2018-04-17] MEDS: Albuterol-Ipratrop 3 mg / 0.5 (3 ml) UD IH SCH ×3 (02:08→13:25)
[2018-04-17 05:36] LABS: EOS % 0.2 % (1.5-5.0); HEMOGLOBIN 11.4 g/dL (14.0-18.0); LYMPH # 0.3 (1.2-3.4); LYMPH % 5.6 % (22.0-35.0); MEAN CELL VOLUME 94.4 fl (80.0-105.0); MEAN CORPUSCULAR HEMOGLOBIN 30.2 pg (25.0-35.0); MEAN CORPUSCULAR HGB CONC 31.9 g/dl (31.0-37.0); MEAN PLATELET VOLUME 10.8 fl (7.0-11.0); MONO # 0.3 (0.1-0.6); MONO % 6.5 % (1.0-6.0); RBC 3.78 10^6/uL (3.5-6.1); RED CELL DISTRIBUTION WIDTH 13.9 % (11.5-14.5); WHITE BLOOD COUNT 4.8 10^3/uL (4.5-11.0)
[2018-04-17 05:53] LABS: ALB/GLOB RATIO 1.5 (1.1-1.8); ALT/SGPT 48 U/L (7-56); AST/SGOT 33 U/L (17-59); BLOOD UREA NITROGEN 28 mg/dL (7-21); CALCIUM 8.7 mg/dL (8.4-10.5); GFR NON-AFRICAN AMERICAN > 60
[2018-04-17] MEDS: Pantoprazole 40 mg Susp UD PO SCH (06:17)
[2018-04-17] MEDS: Insulin Lispro (humaLOG) LOW Coverage SC SCH (08:47)
[2018-04-17] MEDS: Insulin Lispro 1 UNITS/0.01 ML SC SCH (08:51)
[2018-04-17] MEDS: Levothyroxine 75 MCG TAB PO SCH (09:34)
[2018-04-17] MEDS: levoFLOXacin 500 MG TAB PO SCH (09:35)
[2018-04-17] MEDS: MethylPREDNISolone 40 mg Vial IVP SCH (09:35)
[2018-04-17] MEDS: Enoxaparin 40 mg Syringe SC SCH (09:36)
[2018-04-17] MEDS: Prostat 15 g packet PO SCH (09:49)
--- NOTE | 2018-04-17 12:02 | PN ---
DATE: 04/17/2018 SUBJECTIVE: The patient is seen in the ICU earlier this morning in 128, bed 7. Uneventful night. No fevers. No chills. He is comfortable. PHYSICAL EXAMINATION: VITAL SIGNS: Temperature 97, blood pressure 89/40, respiratory rate 22. HEENT: Examination of HEENT is unremarkable. NECK: Supple. LUNGS: Decreased breath sounds. HEART: Normal S1, S2. ABDOMEN: Soft, nontender. LABORATORY DATA: White count is normal at this point at 4.8. Chemistries reveals a BUN of 28, creatinine of 0.7. Urinalysis is noted. Influenza is positive. Microbiology reveals the yeast in the urine. The patient's procalcitonin as of yesterday is 0.40. DIAGNOSTIC DATA: Chest x-ray from yesterday is reported to be no active disease. Review of orders reveals the patient to be on p.o. Levaquin, Solu-Medrol. ASSESSMENT AND PLAN: This is a 77-year-old male with history of Alzheimer's dementia, hyperlipidemia, congestive heart failure, ejection fraction of 50%, hyperlipidemia and coronary artery disease with a right lower lobe pneumonia and history of hemolytic anemia, Haylee albicans, fungemia admitted from the residential with sepsis secondary to influenza, elevated procalcitonin with healthcare-associated pneumonia, bacterial pneumonia with [id number] myocardial infarction. The patient is to complete treatment for severe sepsis with Tamiflu, meropenem; today is day #6 of Levaquin. We will discontinue Levaquin. No further antibiotics. Padilla Goode MD
[2018-04-17 16:08] VITALS: BP 110/43; PULSE 62; RESP 33; O2SAT 92
[2018-04-17 16:11] VITALS: TEMP 97.3
--- NOTE | 2018-04-18 03:46 | PN ---
DATE: 04/17/2018 LOCATION: ICU room 128, room 7. SUBJECTIVE: This is a 77-year-old male presenting with acute exacerbation of COPD, started on IV steroid therapy and is now being followed closely for metabolic management. His glycemic levels are fluctuating, but improved and have ranged from 137 to 235 mg/dL. LABORATORY DATA: His chemistry showed a BUN of 28, sodium 136, potassium 4.8, chloride 132, glucose 207 and creatinine 0.7. PLAN: So at this time, we will continue the same basal and bolus insulin regimen as ordered with Humalog given as 12 units t.i.d. before meals as given. We will continue the basal insulin given as Levemir at 30 units subcutaneously at bedtime daily as ordered. We will obtain serial chemistries and supplement accordingly needed. We will also continue the same low-dose correction scale using Humalog insulin as given. We will follow. Gosia Acevedo MD
--- NOTE | 2018-04-18 04:08 | DS ---
He is awake. He is comfortable. He is improved each day. He is not 100% yet. He is still little bit weak. He is on Aricept, DuoNebs, Ecotrin, Flomax, insulin, Levaquin, Lipitor, Lovenox, Mycelex, Plavix, Pro-Stat, Protonix, Singulair, Solu-Medrol which will stop, Synthroid and Tylenol. He will be on prednisone now for the next 6 days in the shelter. He is going to go to [facility]. He is off the Tamiflu which I think helped him greatly. I think he was very sick with the flu. We discharged him to [facility] now and to be discharged and I will follow him over there tomorrow and I am hoping _too soon and he will come back, and hopefully he will improve over at the shelter. He has a flu pneumonia, CAD, CHF and he is presently confused with dementia. Sean Nicholson DO MTDD
--- NOTE | 2018-04-18 08:59 | PN ---
DATE: 04/16/2018 LOCATION: 128, bed 7. SUBJECTIVE: The patient is resting comfortably in bed. He remains in the intensive care unit but has orders to be transferred to telemetry. There is no shortness of breath noted at rest. The patient is resting comfortably. The case has been discussed with the registered nurse. PHYSICAL EXAMINATION: VITAL SIGNS: Remain stable. The patient is afebrile, pulse 60, respiratory rate 18, blood pressure 110/70, oxygen saturation 98% on nasal cannula. HEENT: Normocephalic, atraumatic. NECK: There is no jugular venous distension. No bruit. No mass. CARDIOVASCULAR: Regular rhythm. S1, S2 without murmur, gallop or rub. CHEST: Bilateral rales. Minimal rhonchi throughout both lung braun. No wheezing appreciated. ABDOMEN: Soft. Bowel sounds normoactive without mass, guarding, rebound or organomegaly. EXTREMITIES: No clubbing, cyanosis or edema. NEUROLOGIC: No focal findings. SKIN: No rash or excoriation. IMAGING: Chest x-ray shows no acute infiltrate. There is resolution of the previously noted infiltrate. IMPRESSION: 1. Status post pneumonitis, improved. 2. Non-ST elevation myocardial infarction. 3. Influenza. 4. Resolved bronchospasm. PLAN: Continue vigorous supportive care. Monitor by Cardiology. Follow chest x-ray to complete resolution. The patient to be transferred to telemetry for further observation and treatment plan. We will discuss with ID and Cardiology. No further intervention today. Thank you for the opportunity to evaluate this patient. Casey Ramos MD
== END 2018-04-17 15:30 | DRG 871 ==
LOC: ED 11:15 → ERH 13:37 → ICU 15:49
PROVIDERS: ADMIT Family Medicine; ATTEND Family Medicine
DX: A41.9 Sepsis, unspecified organism (principal); I21.4 Non-ST elevation (NSTEMI) myocardial infarction; J10.08 Influenza due to other identified influenza virus with other specified pneumonia; J15.9 Unspecified bacterial pneumonia; J44.0 Chronic obstructive pulmonary disease with (acute) lower respiratory infection; B49 Unspecified mycosis; D58.9 Hereditary hemolytic anemia, unspecified; J44.1 Chronic obstructive pulmonary disease with (acute) exacerbation; G30.9 Alzheimer's disease, unspecified; F02.80 Dementia in other diseases classified elsewhere, unspecified severity, without behavioral disturbance, psychotic disturbance, mood disturbance, and anxiety; I11.0 Hypertensive heart disease with heart failure; I25.10 Atherosclerotic heart disease of native coronary artery without angina pectoris; Z85.46 Personal history of malignant neoplasm of prostate; R65.20 Severe sepsis without septic shock; E11.65 Type 2 diabetes mellitus with hyperglycemia; E03.9 Hypothyroidism, unspecified; G20 Parkinson's disease; E78.00 Pure hypercholesterolemia, unspecified; E78.5 Hyperlipidemia, unspecified; I25.2 Old myocardial infarction; I50.9 Heart failure, unspecified; K21.9 Gastro-esophageal reflux disease without esophagitis; K82.9 Disease of gallbladder, unspecified; L30.9 Dermatitis, unspecified; N40.0 Benign prostatic hyperplasia without lower urinary tract symptoms; R32 Unspecified urinary incontinence; Y95 Nosocomial condition; Z79.4 Long term (current) use of insulin; Z79.82 Long term (current) use of aspirin; Z79.890 Hormone replacement therapy; Z80.0 Family history of malignant neoplasm of digestive organs; Z80.41 Family history of malignant neoplasm of ovary; Z85.820 Personal history of malignant melanoma of skin; Z87.01 Personal history of pneumonia (recurrent); Z87.440 Personal history of urinary (tract) infections; Z87.891 Personal history of nicotine dependence

== ENCOUNTER 2018-05-30 09:08 | Emergency (ER) | payer MEDICARE, MEDICAID ==
[2018-05-30 09:16] VITALS: BMI 21.2
[2018-05-30 09:20] VITALS: RESP 18; TEMP 98.7
--- NOTE | 2018-05-30 09:52 | ED PDOC ---
Arrival/HPI - General Chief Complaint: Cough, Cold, Congestion Time Seen by Provider: 05/30/18 09:13 Historian: Patient - History of Present Illness Narrative History of Present Illness (Text): 05/30/18 09:48 77 y/o M, with past medical history of Alzheimer's, CHF, CAD, COPD, diabetes, GERD, and BPH, was referred to the ED by Dr. Nicholson for continuing treatment for pneumonia. Patient was evaluated by Dr. Nicholson at [facility] this morning and was found congested with little improvement s/p treatment for pneumonia and was subsequently referred to the ED. Patient was recently hospitalized for pneumonia and NSTEMI on 04/11/18 and was discharged home on 04/17/18 after improvement to symptoms. Patient currently denies any somatic complaints. Patient denies any fever, chills, nausea, vomiting, abdominal pain, chest pain, shortness of breath or any other complaints. PMD: Dr. Nicholson Shipper: Dr. Landry Time/Duration: Prior to Arrival Symptom Onset: Gradual Symptom Course: Unchanged Activities at Onset: Light Context: Other (Referred by Dr. Nicholson) Past Medical History - Provider Review Nursing Documentation Reviewed: Yes - Infectious Disease Hx of Infectious Diseases: None - Cardiac Hx Congestive Heart Failure: Yes Hx Pacemaker: No - Pulmonary Hx Chronic Obstructive Pulmonary Disease (COPD): Yes - Neurological Hx Dementia: Yes Hx Paralysis: No Hx Parkinson's Disease: Yes - HEENT Hx HEENT Disorder: No Hx Blind: No Hx Cataracts: No Hx Deafness: No Hx Difficulty Chewing: No Hx Epistaxis: No Hx Glaucoma: No Hx Macular Degeneration: No - Renal Hx Renal Failure: Yes - Endocrine/Metabolic Hx Diabetes Mellitus Type 2: Yes Hx Hypothyroidism: Yes - Hematological/Oncological Hx Blood Transfusions: Yes (06/20-06/25/2015- 5 UNITS) Hx Blood Transfusion Reaction: No - Integumentary Hx Dermatological Disorder: Yes Hx Basal Cell Carcinoma: No Hx Eczema: Yes Hx Melanoma: Yes Hx Psoriasis: No Hx Squamous Cell Carcinoma: No - Musculoskeletal/Rheumatological Hx Musculoskeletal Disorders: No - Gastrointestinal Hx Gastroesophageal Reflux: Yes - Genitourinary/Gynecological Hx Hematuria: No Hx Incontinence: Yes Hx Prostate Problems: Yes Hx Sexually Transmitted Diseases: No Hx Urinary Tract Infection: Yes - Psychiatric Hx Emotional Abuse: No Hx Physical Abuse: No Hx Substance Use: No - Surgical History Hx Mastectomy: No - Anesthesia Hx Anesthesia Reactions: No Hx Malignant Hyperthermia: No - Suicidal Assessment Feels Threatened In Home Enviroment: No Family/Social History - Physician Review Nursing Documentation Reviewed: Yes Family/Social History: Unknown Family HX Smoking Status: Former Smoker Hx Alcohol Use: No Hx Substance Use: No Allergies/Home Meds Allergies/Adverse Reactions: Allergies ceftriaxone sodium [From Rocephin] Allergy (Unknown, Verified 05/17/18 09:23) RASH Home Medications: Home Meds Medication Instructions Recorded Confirmed Aspirin [Adult Low Dose Aspirin EC] 81 mg PO DAILY 08/21/16 05/30/18 Donepezil [Aricept] 10 mg PO HS 08/21/16 05/30/18 Levothyroxine [Synthroid] 75 mcg PO DAILY 08/21/16 05/30/18 Acetaminophen [Pain Reliever] 650 mg PO Q4 PRN 10/19/16 05/30/18 Atorvastatin [Lipitor] 40 mg PO HS 09/09/17 05/30/18 Montelukast [Singulair] 10 mg PO DAILY 10/10/17 05/30/18 Carbidopa/Levodopa [Sinemet Cr 1 tab PO TID 04/11/18 05/30/18 25-100 Tablet] Promethazine DM [Phenergan DM 5 ml PO TID PRN 04/11/18 05/30/18 Syrup] Nut.tx.gluc.intoler,Lac-Fr,Soy 1,000 ml PO BID 05/17/18 05/30/18 [Glucerna] Omeprazole 20 mg PO DAILY 05/17/18 05/30/18 Albuterol/Ipratropium [Duoneb 3 3 ml IH PRN PRN 05/30/18 05/30/18 MG/3 Ml-0.5 MG/3 Ml 3 Ml] Review of Systems - Physician Review All systems were reviewed & negative as marked: Yes - Review of Systems Constitutional: absent: Fevers Respiratory: absent: SOB, Cough Cardiovascular: absent: Chest Pain Gastrointestinal: absent: Abdominal Pain, Nausea, Vomiting Genitourinary Male: absent: Dysuria, Urinary Output Changes Musculoskeletal: absent: Back Pain, Neck Pain Skin: absent: Rash Neurological: absent: Headache, Dizziness Physical Exam Vital Signs Reviewed: Yes Vital Signs Temp Pulse Resp BP Pulse Ox 05/30/18 09:19 98.7 F 79 18 128/83 96 Temperature: Afebrile Blood Pressure: Normal Pulse: Regular Respiratory Rate: Normal Appearance: Positive for: Well-Appearing, Non-Toxic, Comfortable Pain Distress: None Mental Status: Positive for: other (Alert and Oriented x 1) - Systems Exam Head: Present: Atraumatic, Normocephalic Pupils: Present: PERRL Extroacular Muscles: Present: EOMI Conjunctiva: Present: Normal Mouth: Present: Dry Respiratory/Chest: Present: Good Air Exchange, Other (Coarse breath sounds bilaterally, no crackles auscultated). No: Respiratory Distress, Accessory Muscle Use, Wheezes, Rhonchi Cardiovascular: Present: Regular Rate and Rhythm, Normal S1, S2. No: Murmurs Abdomen: No: Tenderness, Distention, Peritoneal Signs Upper Extremity: Present: Normal Inspection. No: Cyanosis, Edema Lower Extremity: Present: Normal Inspection. No: Edema Neurological: Present: GCS=15, Speech Normal Skin: Present: Warm, Dry, Normal Color. No: Rashes Psychiatric: Present: Alert Medical Decision Making ED Course and Treatment: 05/30/18 09:57 Impression: 77 year old male presents to the ED for continuing care for pneumonia. Differential Diagnosis included but are not limited to: -- Pneumonia -- Sepsis Plan: -- VBG -- EKG -- Labs -- Chest X-ray -- Blood Culture -- Urine Culture -- Urinalysis -- Reassess and disposition Prior Visits: Notes and results from previous visits were reviewed. Progress Notes: 05/30/18 11:19 Review of labs shows no leukocytosis as well as CXR negative for focal consolidation. Discussed case with Dr. Nicholson(PCP) who agrees that patient may be returned to the alf. Shared decision mking with patient's who acknowledges patient does not warrant admission criteria at this time. He will be discharged with steroid. Ambulance transport notified for transport back to alf. - Lab Interpretations Lab Results: 05/30/18 09:00 05/30/18 09:00 Lab Results 05/30/18 10:20: pO2 33, VBG pH 7.40, VBG pCO2 46.0, VBG HCO3 28.5 H, VBG Total CO2 29.9 H, VBG O2 Sat (Calc) 64.5, VBG Base Excess 3.0 H, VBG Potassium 4.4, Glucose 122 H, Lactate 2.0, FiO2 21.0, Sodium 137.0, Chloride 105.0, Venous Blood Potassium 4.4 05/30/18 09:00: Sodium 139, Potassium 4.4, Chloride 102, Carbon Dioxide 28, Anion Gap 14, BUN 33 H, Creatinine 0.7 L, Est GFR ( Amer) > 60, Est GFR (Non-Af Amer) > 60, Random Glucose 116 H, Calcium 9.9, Magnesium 2.2, Total Bilirubin 1.6 H, AST 29, ALT 23, Alkaline Phosphatase 77, Troponin I < 0.01 D, NT-Pro-B Natriuret Pep 261, Total Protein 6.9, Albumin 4.4, Globulin 2.5, Albumin/Globulin Ratio 1.8 05/30/18 09:00: PT 12.7 H, INR 1.12, APTT 42.2 H 05/30/18 09:00: WBC 7.9 D, RBC 4.52, Hgb 13.3 L, Hct 40.2 L, MCV 88.9 D, MCH 29.4, MCHC 33.1, RDW 15.4 H, Plt Count 72 L, MPV 10.5, Neut % (Auto) 86.6 H, Lymph % (Auto) 5.7 L, [place] % (Auto) 3.2, Eos % (Auto) 4.2, Baso % (Auto) 0.3, Lymph # (Auto) 0.5 L, [place] # (Auto) 0.3, Eos # (Auto) 0.3, Baso # (Auto) 0.02, Absolute Neuts (auto) 6.84 H I have reviewed the lab results: Yes - RAD Interpretation Narrative RAD Interpretations (Text): 05/30/18 11:53 Chest X-ray reviewed by radiologist, shows: FINDINGS: LUNGS: Interval slight improvement previously noted pulmonary venous congestive changes. Mild bibasilar atelectasis. PLEURA: No significant pleural effusion identified, no pneumothorax apparent. CARDIOVASCULAR: Mild aortic atherosclerotic calcification present. Normal cardiac size. OSSEOUS STRUCTURES: No significant abnormalities. VISUALIZED UPPER ABDOMEN: Normal. OTHER FINDINGS: None. IMPRESSION: Interval slight improvement previously noted pulmonary venous congestive changes. Mild bibasilar atelectasis Radiology Orders: 05/30/18 09:27 CHEST PORTABLE [RAD] Stat [employer] Manufacturing Tech: Radiologist - EKG Interpretation EKG Interpretation (Text): 05/30/18 09:15 EKG reviewed, shows low voltage NSR @ 79 bm with PACs diffusely. Interpreted by ED Physician: Yes Type: 12 lead EKG - Scribe Statement The provider has reviewed the documentation as recorded by the Scribe Kathy Shelton. All medical record entries made by the Scribe were at my direction and personally dictated by me. I have reviewed the chart and agree that the record accurately reflects my personal performance of the history, physical exam, medical decision making, and the department course for this patient. I have also personally directed, reviewed, and agree with the discharge instructions and disposition. Disposition/Present on Arrival - Present on Arrival Any Indicators Present on Arrival: No History of DVT/PE: No History of Uncontrolled Diabetes: No Urinary Catheter: No History of Decub. Ulcer: No History Surgical Site Infection Following: None - Disposition Have Diagnosis and Disposition been Completed?: Yes Diagnosis: Bronchitis Disposition: HOME/ ROUTINE Disposition Time: 11:22 Patient Plan: Discharge Patient Problems: Current Active Problems Problem Status Onset Bronchitis Acute Condition: STABLE Discharge Instructions (ExitCare): Acute Bronchitis, Adult (DC) Print Language: ALGERIAN Additional Instructions: All medical record entries made by the Scribe were at my direction and personally dictated by me. I have reviewed the chart and agree that the record accurately reflects my personal performance of the history, physical exam, medical decision making, and the department course for this patient. I have also personally directed, reviewed, and agree with the discharge instructions and disposition. Please take medications as prescribed Prescriptions: Azithromycin 500 mg PO BID #6 tablet Methylprednisolone [Medrol Dose Pack (21 tabs)] 4 mg PO DAILY #21 mg Referrals: Sean Nicholson DO [Primary Care Provider] - Follow up with primary Forms: [employer] ([place]ux[place]ish)
--- NOTE | 2018-05-30 10:30 | RAD ---
Date of service: 05/30/2018 HISTORY: Cough COMPARISON: No prior. FINDINGS: LUNGS: Interval slight improvement previously noted pulmonary venous congestive changes. Mild bibasilar atelectasis. PLEURA: No significant pleural effusion identified, no pneumothorax apparent. CARDIOVASCULAR: Mild aortic atherosclerotic calcification present. Normal cardiac size. OSSEOUS STRUCTURES: No significant abnormalities. VISUALIZED UPPER ABDOMEN: Normal. OTHER FINDINGS: None. IMPRESSION: Interval slight improvement previously noted pulmonary venous congestive changes. Mild bibasilar atelectasis
[2018-05-30 10:33] LABS: VENOUS BLOOD GAS PO2 33 mm/Hg (30-55)
[2018-05-30 10:41] LABS: BASO # 0.02 K/mm3 (0.0-2.0); BASO % 0.3 % (0.0-3.0); EOS # 0.3 (0.0-0.7); EOS % 4.2 % (1.5-5.0); HEMOGLOBIN 13.3 g/dL (14.0-18.0); LYMPH # 0.5 (1.2-3.4); LYMPH % 5.7 % (22.0-35.0); MEAN CELL VOLUME 88.9 fl (80.0-105.0); MEAN CORPUSCULAR HEMOGLOBIN 29.4 pg (25.0-35.0); MEAN CORPUSCULAR HGB CONC 33.1 g/dl (31.0-37.0); MEAN PLATELET VOLUME 10.5 fl (7.0-11.0); MONO # 0.3 (0.1-0.6); MONO % 3.2 % (1.0-6.0); RBC 4.52 10^6/uL (3.5-6.1); RED CELL DISTRIBUTION WIDTH 15.4 % (11.5-14.5); WHITE BLOOD COUNT 7.9 10^3/uL (4.5-11.0)
[2018-05-30 10:53] LABS: ALB/GLOB RATIO 1.8 (1.1-1.8); ALBUMIN 4.4 g/dL (3.0-4.8); ALT/SGPT 23 U/L (7-56); AST/SGOT 29 U/L (17-59); BLOOD UREA NITROGEN 33 mg/dL (7-21); CALCIUM 9.9 mg/dL (8.4-10.5); GFR NON-AFRICAN AMERICAN > 60
[2018-05-30 10:55] LABS: INR 1.12; PARTIAL THROMBOPLASTIN TIME 42.2 Seconds (26.9-38.3); PROTHROMBIN TIME 12.7 SECONDS (9.4-12.5)
[2018-05-30 11:03] LABS: B-TYPE NATRIURETIC PEPTIDE 261 pg/mL (0-450); TROPONIN I < 0.01 ng/mL
--- NOTE | 2018-05-30 12:43 | CARD ---
APPROVED REPORT Date of service: 05/30/2018 EKG Measurement Heart [id number] <Conclusion> Sinus rhythm with premature atrial complexes with aberrant conduction Low voltage QRS Cannot rule out Inferior infarct, age undetermined Abnormal ECG
[2018-05-30 13:51] VITALS: BP 118/74; PULSE 68
[2018-05-30 14:39] VITALS: O2SAT 97
== END 2018-05-30 14:30 | disposition home or self-care (01) ==
LOC: ED 09:08
DX: J40 Bronchitis, not specified as acute or chronic (principal); I50.9 Heart failure, unspecified; J44.0 Chronic obstructive pulmonary disease with (acute) lower respiratory infection; I25.10 Atherosclerotic heart disease of native coronary artery without angina pectoris; G30.9 Alzheimer's disease, unspecified; Z87.891 Personal history of nicotine dependence; E03.9 Hypothyroidism, unspecified; E11.9 Type 2 diabetes mellitus without complications
CPT/HCPCS: 71045; 80053; 82803; 83735; 83880; 84484; 85025; 85610; 85730; 87040; 93005; 96374; 99283; J2930

== ENCOUNTER 2018-06-13 05:58 | Inpatient (IN) | payer MEDICARE, MEDICAID ==
[2018-06-13 06:47] LABS: BASO # 0.01 K/mm3 (0.0-2.0); BASO % 0.3 % (0.0-3.0); EOS # 0.3 (0.0-0.7); EOS % 7.9 % (1.5-5.0); HEMOGLOBIN 12.6 g/dL (14.0-18.0); LYMPH # 0.5 (1.2-3.4); LYMPH % 12.6 % (22.0-35.0); MEAN CELL VOLUME 91.8 fl (80.0-105.0); MEAN CORPUSCULAR HEMOGLOBIN 30.2 pg (25.0-35.0); MEAN CORPUSCULAR HGB CONC 32.9 g/dl (31.0-37.0); MEAN PLATELET VOLUME 10.8 fl (7.0-11.0); MONO # 0.2 (0.1-0.6); MONO % 5.2 % (1.0-6.0); RBC 4.17 10^6/uL (3.5-6.1); RED CELL DISTRIBUTION WIDTH 18.1 % (11.5-14.5); WHITE BLOOD COUNT 3.8 10^3/uL (4.5-11.0)
[2018-06-13] MEDS ORDERED: Lidocaine PF 2% (5 ml) Inj (For Cardiac Arrhy) ONE (06:52)
[2018-06-13] MEDS ORDERED: Iodixanol 320 MG/ML 100 ML BOTTLE IV ONE (06:53)
[2018-06-13] MEDS ORDERED: Iohexol 350mgl/ml 50 ML ONE (06:53)
[2018-06-13] MEDS ORDERED: Iodixanol 320 MG/ML 200 ML BOTTLE IV ONE (06:53)
[2018-06-13 06:54] LABS: INR 1.13; PARTIAL THROMBOPLASTIN TIME 35.7 Seconds (26.9-38.3); PROTHROMBIN TIME 12.8 SECONDS (9.4-12.5)
[2018-06-13 07:06] LABS: BLOOD UREA NITROGEN 25 mg/dL (7-21); CALCIUM 9.8 mg/dL (8.4-10.5); GFR NON-AFRICAN AMERICAN > 60; HDL CHOLESTEROL 27 mg/dL (29-60); LDL CHOLESTEROL 55 mg/dL (0-129)
[2018-06-13] MEDS ORDERED: Midazolam 2 MG/2 ML VIAL ONE (08:09)
[2018-06-13] MEDS ORDERED: Eptifibatide 20 mg/10mL Inj IVP ONE (08:25)
--- NOTE | 2018-06-13 09:35 | CARD ---
APPROVED REPORT Date of service: 06/13/2018 EKG Measurement Heart [id number] <Conclusion> Marked sinus bradycardia Low voltage QRS
[2018-06-13] MEDS ORDERED: Sodium Chloride 0.9% 1,000 ML IV SCH (10:15)
--- NOTE | 2018-06-13 10:43 | CP.PCM.CON ---
<RoelLino - Last Filed: 06/13/18 11:00> History of Present Illness - History of Present Illness History of Present Illness: Lino Sevilla DO, PGY-2: CCU Consult Note 77 year old male with a past medical history significant for Alzheimer's dementia, Parkinson's disease, DM II, and COPD who presented from [facility] for an elective cardiac catheterization. On the patient's last admission in April 08, 2018 he was noted to have a NSTEMI and at that time he was advised by his radio performer, Dr. Landry, that he should undergo an outpatient cardiac catheterization. At the time of my examination, the patient is s/p cardiac catheterization with attempted PCI to the LAD that was unsuccessful. He was found to have triple vessel disease on the coronary angiogram and was there fore referred to I for CABG. The patient denies having any chest pain, nausea, vomiting. Of note, patient is non-verbal and history and ROS was obtained from collateral sources, including, but not limited to his , two daughters, and prior medical records. Otherwise, 12 point ROS is negative except as mentioned above. He will be monitored closely in the CCU. PMD: Dr. Nicholson PMH: COPD, CAD w prior NSTEMI , DMT2, Peptic ulcer disease, Prostate cancer s/p brachytherapy, Parkinson's disease, Alzheimer dementia. PSHx: Cholecystostomy tube for ascending colangitis, tube removed last month. U mbilical hernia repair, small bowel obstruction and resection Social: Lives at [facility], former smoker Allergies: Ceftriaxone- reaction unknown per family Review of Systems - Review of Systems All systems: reviewed and no additional remarkable complaints except (as per HPI) Past Patient History - Infectious Disease Hx of Infectious Diseases: None - Past Social History Smoking Status: Former Smoker - CARDIAC Hx Pacemaker: No - PULMONARY Hx Chronic Obstructive Pulmonary Disease (COPD): Yes - NEUROLOGICAL Hx Paralysis: No - HEENT Hx HEENT Problems: No Hx Blind: No Hx Cataracts: No Hx Deafness: No Hx Difficulty Chewing: No Hx Epistaxis: No Hx Glaucoma: No Hx Macular Degeneration: No - RENAL Hx Renal Failure: Yes - ENDOCRINE/METABOLIC Hx Diabetes Mellitus Type 2: Yes Hx Hypothyroidism: Yes - HEMATOLOGICAL/ONCOLOGICAL Hx Blood Transfusions: Yes (06/20-06/25/2015- 5 UNITS) Hx Blood Transfusion Reaction: No - INTEGUMENTARY Hx Dermatological Problems: Yes Hx Basil Cell: No Hx Eczema: Yes Hx Melanoma: Yes Hx Psoriasis: No Hx Squamous Cell: No - MUSCULOSKELETAL/RHEUMATOLOGICAL Hx Musculoskeletal Disorders: No - GASTROINTESTINAL Hx Gastroesophageal Reflux: Yes - GENITOURINARY/GYNECOLOGICAL Hx Hematuria: No Hx Incontinence: Yes Hx Prostate Problems: Yes Hx Sexually Transmitted Disorders: No Hx Urinary Tract Infection: Yes - PSYCHIATRIC Hx Emotional Abuse: No Hx Physical Abuse: No Hx Substance Use: No - SURGICAL HISTORY Hx Surgeries: Yes (ABDOMINAL SX-SBO) - ANESTHESIA Hx Anesthesia Reactions: No Hx Malignant Hyperthermia: No Meds Allergies/Adverse Reactions: Allergies Allergy/AdvReac Type Severity Reaction Status Date / Time ceftriaxone sodium Allergy Unknown RASH Verified 06/09/18 12:19 [From Rocephin] - Medications Medications: Current Medications Aspirin (Ecotrin) 81 mg PO DAILY YOLANDA Atorvastatin Calcium (Lipitor) 40 mg PO DIN YOLANDA Sodium Chloride (Sodium Chloride 0.9%) 1,000 mls @ 100 mls/hr IV .Q10H YOLANDA Physical Exam - Constitutional Appears: Well, Non-toxic - Head Exam Head Exam: ATRAUMATIC, NORMOCEPHALIC - Eye Exam Eye Exam: EOMI, Normal appearance - ENT Exam ENT Exam: Mucous Membranes Moist - Neck Exam Neck exam: Positive for: Normal Inspection - Respiratory Exam Respiratory Exam: Clear to Auscultation Bilateral, NORMAL BREATHING PATTERN. absent: Accessory Muscle Use - Cardiovascular Exam Cardiovascular Exam: Bradycardia, +S1, +S2 - GI/Abdominal Exam GI & Abdominal Exam: Soft. absent: Guarding, Rebound - Extremities Exam Extremities exam: Positive for: normal inspection, pedal pulses present. Negative for: calf tenderness - Neurological Exam Neurological exam: Alert, CN II-XII Intact - Psychiatric Exam Psychiatric exam: Normal Affect, Normal Mood - Skin Skin Exam: Dry, Intact, Normal Color, Warm Results - Vital Signs Recent Vital Signs: Last Vital Signs Temp 97.5 F L 06/13/18 06:15 Pulse 60 06/13/18 06:15 Resp 20 06/13/18 06:15 BP 103/57 L 06/13/18 06:15 Pulse Ox 95 06/13/18 06:15 - Labs Result Diagrams: 06/13/18 06:30 06/13/18 06:30 Labs: Laboratory Results - last 24 hr 06/13/18 06/13/18 06/13/18 06:30 06:30 06:30 WBC 3.8 L D RBC 4.17 Hgb 12.6 L Hct 38.3 L MCV 91.8 MCH 30.2 MCHC 32.9 RDW 18.1 H Plt Count 77 L MPV 10.8 Neut % (Auto) 74.0 H Lymph % (Auto) 12.6 L Gaines % (Auto) 5.2 Eos % (Auto) 7.9 H Baso % (Auto) 0.3 Lymph # (Auto) 0.5 L Gaines # (Auto) 0.2 Eos # (Auto) 0.3 Baso # (Auto) 0.01 Absolute Neuts (auto) 2.83 PT 12.8 H INR 1.13 APTT 35.7 Sodium 138 Potassium 4.2 Chloride 101 Carbon Dioxide 29 Anion Gap 12 BUN 25 H Creatinine 0.7 L Est GFR ( Amer) > 60 Est GFR (Non-Af Amer) > 60 Random Glucose 101 Calcium 9.8 Triglycerides 221 H Cholesterol 108 L LDL Cholesterol Direct 55 HDL Cholesterol 27 L Blood Type Antibody Screen BBK History Checked 06/13/18 06:30 WBC RBC Hgb Hct MCV MCH MCHC RDW Plt Count MPV Neut % (Auto) Lymph % (Auto) Gaines % (Auto) Eos % (Auto) Baso % (Auto) Lymph # (Auto) Gaines # (Auto) Eos # (Auto) Baso # (Auto) Absolute Neuts (auto) PT INR APTT Sodium Potassium Chloride Carbon Dioxide Anion Gap BUN Creatinine Est GFR ( Amer) Est GFR (Non-Af Amer) Random Glucose Calcium Triglycerides Cholesterol LDL Cholesterol Direct HDL Cholesterol Blood Type O POSITIVE Antibody Screen Negative BBK History Checked Patient has bt Assessment & Plan - Assessment and Plan (Free Text) Assessment: Assessment and Plan 77 year old male with a past medical history of Alzheimer's dementia, Tina on's disease, dyslipidemia, and prostate cancer in remission who presented from [facility] to undergo elective cardiac catheterization and was found to have coronary artery disease warranting CABG. He will be monitored closely in the CCU and be transferred to [facility] for further intervention. Neuro: Baseline nonverbal. Alert. Hx of Parkinson's disease, on levadopa/carbidopa Cardiovascular: S/p cath w unsuccessful stenting of LAD, R femoral access. Continue to monitor access site, bleeding precautions in place, vital signs q 15 min. Likely transfer to [facility] today for possible CABG. Repeat 12 lead ECG. continue ASA 81, atorvastatin Consult: Dr. Landry, cardiology. Bradycardic, asymptomatic at this time Pulm: PMHx COPD, lungs sound clear at this time. Continue home Montelukast. Renal: Maintain UO at 0.5 cc/kg. Fluids NS@100 Heme: Hb 12.6. INR 1.13 not on anticoagulation. PT 12.8. Continue ASA@81 Infectious: Afebrile at this time. Endocrine: Continue home levothyroxine Maintain euglycemia 140-180. FEN: NS@100 Lytes all within normal range. NPO for surgery. Case was reviewed and discussed with attending physician, Dr. Bautista <Bryce Bautista - Last Filed: 06/14/18 11:04> Meds - Medications Medications: Current Medications Albuterol/Ipratropium (Duoneb 3 Mg/0.5 Mg (3 Ml) Ud) 3 ml IH Q6H PRN PRN Reason: Wheezing Aspirin (Ecotrin) 81 mg PO DAILY [facility] Atorvastatin Calcium (Lipitor) 40 mg PO DIN [facility] Last Admin: 06/13/18 18:50 Dose: Not Given Carbidopa/Levodopa (Sinemet Cr) 1 tab PO TID [facility] Last Admin: 06/13/18 18:50 Dose: Not Given Donepezil HCl (Aricept) 10 mg PO HS [facility] Last Admin: 06/13/18 22:24 Dose: 10 mg Sodium Chloride (Sodium Chloride 0.9%) 1,000 mls @ 100 mls/hr IV .Q10H [facility] Last Admin: 06/14/18 02:46 Dose: 100 mls/hr Heparin Sodium/Sodium Chloride (Heparin 48316 Units/250ml 1/2 Normal Saline) 25,000 units in 250 mls @ 7.022 mls/hr IV .Q24H [facility]; Protocol Insulin Human Lispro (Humalog Low) 0 units SC ACHS [facility]; Protocol Last Admin: 06/14/18 08:47 Dose: Not Given Levothyroxine Sodium (Synthroid) 75 mcg PO DAILY [facility] Last Admin: 06/13/18 18:50 Dose: Not Given Montelukast Sodium (Singulair) 10 mg PO DAILY [facility] Last Admin: 06/13/18 18:50 Dose: Not Given Pantoprazole Sodium (Protonix Ec Tab) 40 mg PO ACB [facility] Last Admin: 06/14/18 08:59 Dose: 40 mg Results - Vital Signs Recent Vital Signs: Last Vital Signs Temp 97.7 F 06/14/18 02:05 Pulse 46 L 06/14/18 07:02 Resp 16 06/14/18 07:02 BP 105/44 L 06/14/18 07:00 Pulse Ox 100 06/14/18 07:02 - Labs Result Diagrams: 06/14/18 05:50 06/14/18 05:50 Labs: Laboratory Results - last 24 hr 06/13/18 06/13/18 06/13/18 10:09 11:55 15:45 WBC 4.0 L RBC 3.73 Hgb 11.3 L Hct 34.6 L MCV 92.8 MCH 30.3 MCHC 32.7 RDW 18.0 H Plt Count 64 L MPV 9.6 Neut % (Auto) 70.9 H Lymph % (Auto) 12.4 L Gaines % (Auto) 8.1 H Eos % (Auto) 8.1 H Baso % (Auto) 0.5 Lymph # (Auto) 0.5 L Gaines # (Auto) 0.3 Eos # (Auto) 0.3 Baso # (Auto) 0.02 Absolute Neuts (auto) 2.81 Sodium Potassium Chloride Carbon Dioxide Anion Gap BUN Creatinine Est GFR ( Amer) Est GFR (Non-Af Amer) POC Glucose (mg/dL) 87 95 Random Glucose Calcium Total Bilirubin AST ALT Alkaline Phosphatase Total Protein Albumin Globulin Albumin/Globulin Ratio 06/13/18 06/13/18 06/13/18 18:05 22:03 23:46 WBC RBC Hgb Hct MCV MCH MCHC RDW Plt Count MPV Neut % (Auto) Lymph % (Auto) Gaines % (Auto) Eos % (Auto) Baso % (Auto) Lymph # (Auto) Gaines # (Auto) Eos # (Auto) Baso # (Auto) Absolute Neuts (auto) Sodium Potassium Chloride Carbon Dioxide Anion Gap BUN Creatinine Est GFR ( Amer) Est GFR (Non-Af Amer) POC Glucose (mg/dL) 89 202 H 160 H Random Glucose Calcium Total Bilirubin AST ALT Alkaline Phosphatase Total Protein Albumin Globulin Albumin/Globulin Ratio 06/14/18 06/14/18 06/14/18 05:46 05:50 05:50 WBC 3.5 L RBC 3.44 L Hgb 10.4 L Hct 31.8 L MCV 92.4 MCH 30.2 MCHC 32.7 RDW 18.0 H Plt Count 68 L MPV 9.8 Neut % (Auto) Lymph % (Auto) Gaines % (Auto) Eos % (Auto) Baso % (Auto) Lymph # (Auto) Gaines # (Auto) Eos # (Auto) Baso # (Auto) Absolute Neuts (auto) Sodium 139 Potassium 5.1 H Chloride 106 Carbon Dioxide 27 Anion Gap 12 BUN 20 Creatinine 0.7 L Est GFR ( Amer) > 60 Est GFR (Non-Af Amer) > 60 POC Glucose (mg/dL) 100 Random Glucose 86 Calcium 9.1 Total Bilirubin 1.5 H AST 21 ALT 20 Alkaline Phosphatase 62 Total Protein 5.7 L Albumin 3.5 Globulin 2.2 Albumin/Globulin Ratio 1.6
--- NOTE | 2018-06-13 11:45 | CARDCATH ---
PROCEDURE DATE: 06/13/2018 CARDIAC CATH AND PTCA HISTORY: The patient is a 77-year-old male who was transferred from the sn[facility] because of intermittent chest pain while in the snf. The patient has documented triple-vessel CAD and had an extensive discussion with the family about coronary bypass surgery versus high-risk multivessel PTCA and stent because of his comorbidities, a PTCA option was the chosen therapeutic option. The patient was brought here from the snf after a bout of pneumonia. A cardiac catheterization was arranged for. PROCEDURE: Left heart catheterization with coronary arteriography left ventriculogram. The right femoral artery was cannulated with 6-Sami sheath. I performed moderate sedation, which included the presence of an independent trained observer that assisted in monitoring the patient's level of consciousness and physiologic status. After administration of Versed and fentanyl, my intra service time was 45 minutes. Findings on catheterization revealed left main artery that revealed diffuse atherosclerosis without critical lesions. The LAD with a complex critical lesion with marked tortuosity as well as a 99% stenoses in the proximal and tandem lesion in the midportion. The circumflex artery was diffusely diseased with a long 70% stenoses. The RCA was a codominant vessel and revealed 80% in the proximal portion and multiple 50% lesions in the mid and distal portion. LV function revealed mild global LV hypokinesis with an estimated ejection fraction of 50%. Because of suspicions for an acute coronary syndrome, an EKG was done and a code heart was called. The patient was started on intravenous Angiomax and given two doses of intravenous Integrilin. The guiding catheter was placed in the ostium of the left main artery. An 0.014 ATW wire was used to cross the complex LAD lesion. A 2.0 balloon was utilized to dilate the lesion multiple times. Attempt at placing a 2.5 drug-eluting stent into the lesion was unsuccessful due to a distal calcified area. The balloon and stent were removed and a 2.0 balloon was utilized to once again dilate the distal portion of the extensive lesion. A second pass at placing the stent was unsuccessful;however, during the periods of withdrawing the stent, the stent was dislodged from the balloon due to calcification. Attempts at deploying the stent into the LAD were unsuccessful. Repeat coronary revealed a undeployed stent in the distal portion of the left main into the proximal LAD. However, there was YESI III flow down the LAD. The patient remained hemodynamically stable. Angio-Seal was used to close the femoral artery site. Arrangements were made for the patient be transferred to [facility] for urgent coronary artery bypass surgery. In summary, the procedure was unsuccessful PTCA and stent of a complex and long critical 90% stenosis of the LAD. The procedure was complicated by dislodgement of the stent that was undeployed in the distal left main as well as in the proximal LAD. Cardiac catheterization reveals triple vessel CAD with mild LV hypokinesis with EF of 50%. Given these findings, the patient will be transferred to [facility] for emergent coronary bypass surgery. I have discussed this with the family in detail. They understand and agree with the plan. Janusz Landry MD
--- NOTE | 2018-06-13 12:02 | CARD ---
APPROVED REPORT Date of service: 06/13/2018 EKG Measurement Heart [id number] <Conclusion> Marked sinus bradycardia Low voltage QRS Abnormal ECG
[2018-06-13 15:55] LABS: BASO # 0.02 K/mm3 (0.0-2.0); BASO % 0.5 % (0.0-3.0); EOS # 0.3 (0.0-0.7); EOS % 8.1 % (1.5-5.0); HEMOGLOBIN 11.3 g/dL (14.0-18.0); LYMPH # 0.5 (1.2-3.4); LYMPH % 12.4 % (22.0-35.0); MEAN CELL VOLUME 92.8 fl (80.0-105.0); MEAN CORPUSCULAR HEMOGLOBIN 30.3 pg (25.0-35.0); MEAN CORPUSCULAR HGB CONC 32.7 g/dl (31.0-37.0); MEAN PLATELET VOLUME 9.6 fl (7.0-11.0); MONO # 0.3 (0.1-0.6); MONO % 8.1 % (1.0-6.0); RBC 3.73 10^6/uL (3.5-6.1)
[2018-06-13 18:10] VITALS: BMI 20.2
[2018-06-13] MEDS ORDERED: Albuterol-Ipratrop 3 mg / 0.5 (3 ml) UD IH PRN (18:12)
[2018-06-13] MEDS: Carbidopa/Levodopa 25/100 CR PO SCH (18:50)
[2018-06-13] MEDS: Levothyroxine 75 MCG TAB PO SCH (18:50)
[2018-06-13 22:21] VITALS: TEMP 97.7
--- NOTE | 2018-06-13 23:28 | CON ---
DATE: 06/13/2018 HISTORY OF PRESENT ILLNESS: This is a 77-year-old gentleman with a history of Parkinson's disease, Alzheimer, diabetes mellitus type 2, and COPD, who he is a resident of [facility] and who presented to [facility] [place] for an elective cardiac catheterization. The patient's last admission was about a month ago when he had non-ST elevated [place]; however, at that time, he was advised by Dr. Landry to undergo cardiac catheterization as an outpatient. During the catheterization, attempt at stenting LAD was unsuccessful, he also was found to have severe triple-vessel disease, and decision was made to proceed with cardiothoracic surgery ablation for potential coronary artery bypass surgery. The patient was transferred to ICU while bed at [facility] was pending. He remained slightly bradycardic, heart rate varied between 45 and 50; however, his blood pressure was stable. He appeared to be comfortable, not in respiratory or otherwise distress. No fever, no chills, no sweats. No nausea, no vomiting, no diarrhea, no constipation. PAST MEDICAL HISTORY: COPD, coronary artery disease, history of non-ST elevated [place], diabetes mellitus, peptic ulcer disease, prostate cancer, status post brachytherapy, Parkinson's disease, Alzheimer's dementia. PAST SURGICAL HISTORY: Cholecystectomy, treated for ascending cholangitis, tube removal. Umbilical hernia repair, small-bowel obstruction and resection. SOCIAL HISTORY: No alcohol or illicit drug abuse. The patient is an ex-smoker. ALLERGIES: CEFTRIAXONE. REVIEW OF SYSTEMS: Review of 12-organ systems other than mentioned in history of present illness is negative. PHYSICAL EXAMINATION: VITAL SIGNS: Temperature 97.5, blood pressure 103/57, heart rate 16, oxygen saturation 95% on room air, respiratory rate 20. ENT: Head and neck atraumatic. LUNGS: Clear to auscultation bilaterally. HEART: Regular rate and rhythm. S1 and S2 normal. ABDOMEN: Soft, nontender, nondistended. MUSCULOSKELETAL: No C/C/E. NEUROLOGIC: The patient moves all extremities spontaneously. SKIN: Moist. PSYCHIATRIC: The patient is alert, however, confused. As per family member at bedside, he is at his baseline in terms of mental status. LABORATORY DATA: WBC 3.8, hemoglobin 12.6, platelet count 77. Sodium 138, potassium 4.2, chloride 101, carbon dioxide 29, BUN 25, creatinine 0.7, glucose 95. INR 1.13. MEDICATIONS IN THE HOSPITAL: Aspirin, Lipitor, normal saline at 100 mL/hour. Based on my conversation with Dr. Landry, the patient has normal ejection fraction, does not have systolic left ventricular dysfunction. He did not drop blood pressure during the procedure. ASSESSMENT AND PLAN: This is a 77-year-old gentleman with severe triple-vessel disease and failed attempt at stenting of left anterior descending artery. The patient appears to be comfortable with stable blood pressure and relative bradycardia. No signs of respiratory or otherwise distress. No wheezing on auscultation. There is no expanding hematoma in the right groin. Dopplerable pulses in both dorsalis pedis bilaterally. Both lower extremities warm. The patient is not in distress. We will continue with statins, aspirin, normal saline. We will avoid Plavix as the patient is likely going for coronary bypass surgery. We will repeat CBC, maintain n.p.o. status for now, and continue with IV fluids. We will continue to target euvolemia, glycemia, normothermia, and oxygen saturation more than 90%. ccm time 40 min Bryce Bautista MD [facility]
--- NOTE | 2018-06-14 02:29 | HP ---
DATE OF EXAM: 06/13/2018 HISTORY OF PRESENT ILLNESS: I have known this patient for over 20 years. I am taking care of him at [facility]. He is a 77-year-old white man who has had issues of coronary artery disease. He had some symptoms of shortness of breath and chest pain. He is in and out of the hospital, never had the chance to get a cardiac cath due to his poor medical history. He finally had a cardiac cath today with Dr. Landry as an elective for the need for the cardiac cath. During the cardiac cath, I believe, the stent was placed, severe calcium, it got stuck, now he needs to be admitted to [facility] for open heart surgery to fix the situation. He is currently stable, status post procedure, lying flat on the bed. PAST MEDICAL HISTORY: Dementia, Alzheimer's, coronary artery disease, thyroid disease, depression, pneumonia, history of COPD, CHF, anemia, history of cancer of prostate and had seeds. He has ESBL in the urine. Parkinson's, dementia, but he talks. He has had small bowel obstruction, cholecystotomy with a tube. He had cath, ERCP, sphincterotomy, balloon sweep. He has had blood transfusions multiple times. SOCIAL HISTORY: He used to smoke pipe cigars, quit 33 years ago. FAMILY HISTORY: Father also had cardiac disease. ALLERGIES: HE IS ALLERGIC TO ROCEPHIN. REVIEW OF SYSTEMS: He is awake, he is pleasant, he follows commands. He talks to me. He is incontinent of urine. He is cooperative, passive. He sits on a wheelchair. No acute vision or hearing changes, but old; he is hard of hearing. No sore throat. He does have chest pain and shortness of breath. No nausea, vomiting, constipation, or diarrhea. No problems with urine, but he is incontinent. He has got weak legs. No skin issues. PHYSICAL EXAMINATION: VITAL SIGNS: Temperature 97.7, pulse 53, blood pressure 122/66, also 99/52 blood pressure, respiratory rate 17 and O2 sat 100%. HEENT: Head is atraumatic and normocephalic. NECK: Supple. HEART: Regular rate. LUNGS: Decreased breath sounds, but clear. ABDOMEN: Soft. EXTREMITIES: No edema. SKIN: I could tell it is really intact . LYMPHATIC: Thyroid midline. No palpable appreciable lymphadenopathy. LABORATORY DATA: White count 4, hemoglobin 11.3, hematocrit 34.6 and platelets 64. INR 1.12. Sodium 138, potassium 4.2, BUN 25, creatinine 0.7, GFR is greater than 60, sugar is 89, calcium 9.8, triglycerides 221 little high, cholesterol is 108, LDL of 55, and HDL of 27. ASSESSMENT AND PLAN: Scheduled to [facility] for open heart surgery. He has coronary artery disease. He has a stent that got lodged, and the plan is to do open heart surgery at [facility]. treatment and care. Sean Nicholson DO MTDD
[2018-06-14 06:20] LABS: HEMOGLOBIN 10.4 g/dL (14.0-18.0); MEAN CELL VOLUME 92.4 fl (80.0-105.0); MEAN CORPUSCULAR HEMOGLOBIN 30.2 pg (25.0-35.0); MEAN CORPUSCULAR HGB CONC 32.7 g/dl (31.0-37.0); MEAN PLATELET VOLUME 9.8 fl (7.0-11.0); RBC 3.44 10^6/uL (3.5-6.1); WHITE BLOOD COUNT 3.5 10^3/uL (4.5-11.0)
[2018-06-14 07:12] LABS: ALB/GLOB RATIO 1.6 (1.1-1.8); ALBUMIN 3.5 g/dL (3.0-4.8); ALT/SGPT 20 U/L (7-56); AST/SGOT 21 U/L (17-59); BLOOD UREA NITROGEN 20 mg/dL (7-21); CALCIUM 9.1 mg/dL (8.4-10.5); GFR NON-AFRICAN AMERICAN > 60
[2018-06-14] MEDS ORDERED: Pantoprazole 40 mg EC Tab PO SCH (07:30)
[2018-06-14] MEDS: Insulin Lispro (humaLOG) LOW Coverage SC SCH ×2 (08:47→12:39)
--- NOTE | 2018-06-14 09:56 | CP.CCUPN ---
<Huseyin Aguilar - Last Filed: 06/14/18 10:25> CCU Subjective - Physician Review Events Since Last Encounter (Free Text): 06/14/18 09:54 pt awake but confused, dressing from cath side is clean and dry Subjective (Free Text): 06/14/18 09:55 Pt seen and examined this morning. Pt only minimally responsive due to his baseline dementia. CCU Objective - Vital Signs / Intake & Output Vital Signs (Last 4 hours): Vital Signs Pulse Resp BP Pulse Ox 06/14/18 07:02 46 L 16 100 06/14/18 07:00 105/44 L 06/14/18 06:59 45 L 24 100 06/14/18 06:30 42 L 29 H 88/37 L 99 06/14/18 06:00 70 21 103/44 L 99 Intake and Output (Last 8hrs): Intake & Output 06/13/18 06/14/18 06/14/18 22:59 06:59 14:59 Intake Total 1600 1300 Balance 1600 1300 Intake: IV 1200 1200 Left Antecubital 1200 NS 1200 Oral 400 100 Other: # Bowel Movements 0 1 - Physical Exam Head: Positive for: Atraumatic, Normocephalic Pupils: Positive for: PERRL Extroacular Muscles: Positive for: EOMI Mouth: Positive for: Moist Mucous Membranes Respiratory/Chest: Positive for: Clear to Auscultation, Respiratory Distress. Negative for: Accessory Muscle Use Cardiovascular: Positive for: Regular Rate and Rhythm, Normal S1, S2 Abdomen: Positive for: Normal Bowel Sounds. Negative for: Tenderness, Distention Lower Extremity: Negative for: Normal Inspection, Edema Skin: Positive for: Warm, Dry, Normal Color. Negative for: Rashes Psychiatric: Positive for: Alert - Medications Active Medications: Active Medications Generic Name Dose Route Start Last Admin Trade Name Freq PRN Reason Stop Dose Admin Albuterol/Ipratropium 3 ml 06/13/18 18:12 Duoneb 3 Mg/0.5 Mg (3 Ml) Ud IH Q6H PRN Wheezing Aspirin 81 mg 06/14/18 10:00 Ecotrin PO DAILY YOLANDA Atorvastatin Calcium 40 mg 06/13/18 17:00 06/13/18 18:50 Lipitor PO Not Given DIN YOLANDA Carbidopa/Levodopa 1 tab 06/13/18 18:15 06/13/18 18:50 Sinemet Cr PO Not Given TID YOLANDA Donepezil HCl 10 mg 06/13/18 22:00 06/13/18 22:24 Aricept PO 10 mg HS YOLANDA Administration Sodium Chloride 1,000 mls @ 100 mls/hr 06/13/18 10:15 06/14/18 02:46 Sodium Chloride 0.9% IV 100 mls/hr .Q10H YOLANDA Administration Insulin Human Lispro 0 units 06/14/18 07:30 06/14/18 08:47 Humalog Low SC Not Given ACHS [facility] Protocol Levothyroxine Sodium 75 mcg 06/13/18 10:00 06/13/18 18:50 Synthroid PO Not Given DAILY YOLANDA Montelukast Sodium 10 mg 06/13/18 18:15 06/13/18 18:50 Singulair PO Not Given DAILY YOLANDA Pantoprazole Sodium 40 mg 06/14/18 07:30 06/14/18 08:59 Protonix Ec Tab PO 40 mg ACB YOLANDA Administration - Patient Studies Lab Studies: Lab Studies 06/14/18 06/14/18 06/14/18 Range/Units 05:50 05:50 05:46 WBC 3.5 L (4.5-11.0) 10^3/uL RBC 3.44 L (3.5-6.1) 10^6/uL Hgb 10.4 L (14.0-18.0) g/dL Hct 31.8 L (42.0-52.0) % MCV 92.4 (80.0-105.0) fl MCH 30.2 (25.0-35.0) pg MCHC 32.7 (31.0-37.0) g/dl RDW 18.0 H (11.5-14.5) % Plt Count 68 L (120.0-450.0) 10^3/uL MPV 9.8 (7.0-11.0) fl Neut % (Auto) (50.0-68.0) % Lymph % (Auto) (22.0-35.0) % [place] % (Auto) (1.0-6.0) % Eos % (Auto) (1.5-5.0) % Baso % (Auto) (0.0-3.0) % Lymph # (Auto) (1.2-3.4) [place] # (Auto) (0.1-0.6) Eos # (Auto) (0.0-0.7) Baso # (Auto) (0.0-2.0) K/mm3 Absolute Neuts (auto) (1.4-6.5) Sodium 139 (132-148) mmol/L Potassium 5.1 H (3.6-5.0) mmol/L Chloride 106 (98-107) mmol/L Carbon Dioxide 27 (21-33) mmol/L Anion Gap 12 (10-20) BUN 20 (7-21) mg/dL Creatinine 0.7 L (0.8-1.5) mg/dl Est GFR ( Amer) > 60 Est GFR (Non-Af Amer) > 60 POC Glucose (mg/dL) 100 (65-110) mg/dL Random Glucose 86 (70-110) mg/dL Calcium 9.1 (8.4-10.5) mg/dL Total Bilirubin 1.5 H (0.2-1.3) mg/dL AST 21 (17-59) U/L ALT 20 (7-56) U/L Alkaline Phosphatase 62 (38-126) U/L Total Protein 5.7 L (5.8-8.3) g/dL Albumin 3.5 (3.0-4.8) g/dL Globulin 2.2 gm/dL Albumin/Globulin Ratio 1.6 (1.1-1.8) 06/13/18 06/13/18 06/13/18 Range/Units 23:46 22:03 18:05 WBC (4.5-11.0) 10^3/uL RBC (3.5-6.1) 10^6/uL Hgb (14.0-18.0) g/dL Hct (42.0-52.0) % MCV (80.0-105.0) fl MCH (25.0-35.0) pg MCHC (31.0-37.0) g/dl RDW (11.5-14.5) % Plt Count (120.0-450.0) 10^3/uL MPV (7.0-11.0) fl Neut % (Auto) (50.0-68.0) % Lymph % (Auto) (22.0-35.0) % [place] % (Auto) (1.0-6.0) % Eos % (Auto) (1.5-5.0) % Baso % (Auto) (0.0-3.0) % Lymph # (Auto) (1.2-3.4) [place] # (Auto) (0.1-0.6) Eos # (Auto) (0.0-0.7) Baso # (Auto) (0.0-2.0) K/mm3 Absolute Neuts (auto) (1.4-6.5) Sodium (132-148) mmol/L Potassium (3.6-5.0) mmol/L Chloride (98-107) mmol/L Carbon Dioxide (21-33) mmol/L Anion Gap (10-20) BUN (7-21) mg/dL Creatinine (0.8-1.5) mg/dl Est GFR ( Amer) Est GFR (Non-Af Amer) POC Glucose (mg/dL) 160 H 202 H 89 (65-110) mg/dL Random Glucose (70-110) mg/dL Calcium (8.4-10.5) mg/dL Total Bilirubin (0.2-1.3) mg/dL AST (17-59) U/L ALT (7-56) U/L Alkaline Phosphatase (38-126) U/L Total Protein (5.8-8.3) g/dL Albumin (3.0-4.8) g/dL Globulin gm/dL Albumin/Globulin Ratio (1.1-1.8) 06/13/18 06/13/18 06/13/18 Range/Units 15:45 11:55 10:09 WBC 4.0 L (4.5-11.0) 10^3/uL RBC 3.73 (3.5-6.1) 10^6/uL Hgb 11.3 L (14.0-18.0) g/dL Hct 34.6 L (42.0-52.0) % MCV 92.8 (80.0-105.0) fl MCH 30.3 (25.0-35.0) pg MCHC 32.7 (31.0-37.0) g/dl RDW 18.0 H (11.5-14.5) % Plt Count 64 L (120.0-450.0) 10^3/uL MPV 9.6 (7.0-11.0) fl Neut % (Auto) 70.9 H (50.0-68.0) % Lymph % (Auto) 12.4 L (22.0-35.0) % [place] % (Auto) 8.1 H (1.0-6.0) % Eos % (Auto) 8.1 H (1.5-5.0) % Baso % (Auto) 0.5 (0.0-3.0) % Lymph # (Auto) 0.5 L (1.2-3.4) [place] # (Auto) 0.3 (0.1-0.6) Eos # (Auto) 0.3 (0.0-0.7) Baso # (Auto) 0.02 (0.0-2.0) K/mm3 Absolute Neuts (auto) 2.81 (1.4-6.5) Sodium (132-148) mmol/L Potassium (3.6-5.0) mmol/L Chloride (98-107) mmol/L Carbon Dioxide (21-33) mmol/L Anion Gap (10-20) BUN (7-21) mg/dL Creatinine (0.8-1.5) mg/dl Est GFR ( Amer) Est GFR (Non-Af Amer) POC Glucose (mg/dL) 95 87 (65-110) mg/dL Random Glucose (70-110) mg/dL Calcium (8.4-10.5) mg/dL Total Bilirubin (0.2-1.3) mg/dL AST (17-59) U/L ALT (7-56) U/L Alkaline Phosphatase (38-126) U/L Total Protein (5.8-8.3) g/dL Albumin (3.0-4.8) g/dL Globulin gm/dL Albumin/Globulin Ratio (1.1-1.8) Laboratory Results - last 24 hr 06/13/18 06/13/18 06/13/18 10:09 11:55 15:45 WBC 4.0 L RBC 3.73 Hgb 11.3 L Hct 34.6 L MCV 92.8 MCH 30.3 MCHC 32.7 RDW 18.0 H Plt Count 64 L MPV 9.6 Neut % (Auto) 70.9 H Lymph % (Auto) 12.4 L [place] % (Auto) 8.1 H Eos % (Auto) 8.1 H Baso % (Auto) 0.5 Lymph # (Auto) 0.5 L [place] # (Auto) 0.3 Eos # (Auto) 0.3 Baso # (Auto) 0.02 Absolute Neuts (auto) 2.81 Sodium Potassium Chloride Carbon Dioxide Anion Gap BUN Creatinine Est GFR ( Amer) Est GFR (Non-Af Amer) POC Glucose (mg/dL) 87 95 Random Glucose Calcium Total Bilirubin AST ALT Alkaline Phosphatase Total Protein Albumin Globulin Albumin/Globulin Ratio 06/13/18 06/13/18 06/13/18 18:05 22:03 23:46 WBC RBC Hgb Hct MCV MCH MCHC RDW Plt Count MPV Neut % (Auto) Lymph % (Auto) [place] % (Auto) Eos % (Auto) Baso % (Auto) Lymph # (Auto) [place] # (Auto) Eos # (Auto) Baso # (Auto) Absolute Neuts (auto) Sodium Potassium Chloride Carbon Dioxide Anion Gap BUN Creatinine Est GFR ( Amer) Est GFR (Non-Af Amer) POC Glucose (mg/dL) 89 202 H 160 H Random Glucose Calcium Total Bilirubin AST ALT Alkaline Phosphatase Total Protein Albumin Globulin Albumin/Globulin Ratio 06/14/18 06/14/18 06/14/18 05:46 05:50 05:50 WBC 3.5 L RBC 3.44 L Hgb 10.4 L Hct 31.8 L MCV 92.4 MCH 30.2 MCHC 32.7 RDW 18.0 H Plt Count 68 L MPV 9.8 Neut % (Auto) Lymph % (Auto) [place] % (Auto) Eos % (Auto) Baso % (Auto) Lymph # (Auto) [place] # (Auto) Eos # (Auto) Baso # (Auto) Absolute Neuts (auto) Sodium 139 Potassium 5.1 H Chloride 106 Carbon Dioxide 27 Anion Gap 12 BUN 20 Creatinine 0.7 L Est GFR ( Amer) > 60 Est GFR (Non-Af Amer) > 60 POC Glucose (mg/dL) 100 Random Glucose 86 Calcium 9.1 Total Bilirubin 1.5 H AST 21 ALT 20 Alkaline Phosphatase 62 Total Protein 5.7 L Albumin 3.5 Globulin 2.2 Albumin/Globulin Ratio 1.6 EKG/Cardiology Studies: Cardiology / EKG Studies 06/13/18 10:05 ELECTROCARDIOGRAM Urgent Comment: 12 lead EKG upon arrival in unit Reason For Exam: post ptca 06/14/18 10:15 ELECTROCARDIOGRAM DAILY Comment: Reason For Exam: chest pain Fingerstick Blood Sugar Results: 100 Critical Care Progress Note - Nutrition Nutrition: Nutrition Category Date Time Status Pureed [Dysphagia/Modified Consistency Diet] [DIET] Diets 06/13/18 Dinner Ordered Assessment/Plan - Assessment and Plan (Free Text) Assessment: Pt is a 77 yo male with a PMH of Alzheimer's, Parkinson's, HLD, an prostate cancer who presented from a long-term to undergo a cardiac cath and was found to have an 99% LAD lesion with multiple other stenotic lesions, it was determined that pt would benefit from CABG, pt to be transferred to [facility]. Plan: Neuro - Hx of Parkinson's disease, Alzheimer's - Baseline nonverbal - levadopa/carbidopa - donepezil Cardio - CAD - Bradycardic, asymptomatic at this time - S/p cath w unsuccessful stenting of LAD - pt will be transferred to [facility] for possible CABG - ASA 81, atorvastatin - Consult cardio, Dr. Landry Pulm - COPD - Montelukast - duonebs GI - ppx pantoprazole - pureed diet Renal - IVF NS@100 Heme - continue to monitor H/H ID - Afebrile, no tachycardia, no leukocytosis Endocrine - levothyroxine - Maintain euglycemia - ISS low Pt seen, examined, assessment and plan discussed with Dr Elyse Aguilar PGY1 - Date & Time Date: 06/14/18 Time: 07:00 <Emerson Pappas - Last Filed: 06/14/18 11:18> CCU Objective - Vital Signs / Intake & Output Intake and Output (Last 8hrs): Intake & Output 06/13/18 06/14/18 06/14/18 22:59 06:59 14:59 Intake Total 1600 1300 Balance 1600 1300 Intake: IV 1200 1200 Left Antecubital 1200 NS 1200 Oral 400 100 Other: # Bowel Movements 0 1 - Medications Active Medications: Active Medications Generic Name Dose Route Start Last Admin Trade Name Freq PRN Reason Stop Dose Admin Albuterol/Ipratropium 3 ml 06/13/18 18:12 Duoneb 3 Mg/0.5 Mg (3 Ml) Ud IH Q6H PRN Wheezing Aspirin 81 mg 06/14/18 10:00 Ecotrin PO DAILY YOLANDA Atorvastatin Calcium 40 mg 06/13/18 17:00 06/13/18 18:50 Lipitor PO Not Given DIN YOLANDA Carbidopa/Levodopa 1 tab 06/13/18 18:15 06/13/18 18:50 Sinemet Cr PO Not Given TID YOLANDA Donepezil HCl 10 mg 06/13/18 22:00 06/13/18 22:24 Aricept PO 10 mg HS YOLANDA Administration Sodium Chloride 1,000 mls @ 100 mls/hr 06/13/18 10:15 06/14/18 02:46 Sodium Chloride 0.9% IV 100 mls/hr .Q10H YOLANDA Administration Heparin Sodium/Sodium Chloride 25,000 units in 250 mls @ 7.022 mls/hr 06/14/18 11:00 Heparin 84949 Units/250ml 1/2 Normal Saline IV .Q24H YOLANDA Protocol 12 UNITS/KG/HR Insulin Human Lispro 0 units 06/14/18 07:30 06/14/18 08:47 Humalog Low SC Not Given ACHS YOLANDA Protocol Levothyroxine Sodium 75 mcg 06/13/18 10:00 06/13/18 18:50 Synthroid PO Not Given DAILY YOLANDA Montelukast Sodium 10 mg 06/13/18 18:15 06/13/18 18:50 Singulair PO Not Given DAILY YOLANDA Pantoprazole Sodium 40 mg 06/14/18 07:30 06/14/18 08:59 Protonix Ec Tab PO 40 mg ACB YOLANDA Administration - Patient Studies Lab Studies: Lab Studies 06/14/18 06/14/18 06/14/18 Range/Units 05:50 05:50 05:46 WBC 3.5 L (4.5-11.0) 10^3/uL RBC 3.44 L (3.5-6.1) 10^6/uL Hgb 10.4 L (14.0-18.0) g/dL Hct 31.8 L (42.0-52.0) % MCV 92.4 (80.0-105.0) fl MCH 30.2 (25.0-35.0) pg MCHC 32.7 (31.0-37.0) g/dl RDW 18.0 H (11.5-14.5) % Plt Count 68 L (120.0-450.0) 10^3/uL MPV 9.8 (7.0-11.0) fl Neut % (Auto) (50.0-68.0) % Lymph % (Auto) (22.0-35.0) % [place] % (Auto) (1.0-6.0) % Eos % (Auto) (1.5-5.0) % Baso % (Auto) (0.0-3.0) % Lymph # (Auto) (1.2-3.4) [place] # (Auto) (0.1-0.6) Eos # (Auto) (0.0-0.7) Baso # (Auto) (0.0-2.0) K/mm3 Absolute Neuts (auto) (1.4-6.5) Sodium 139 (132-148) mmol/L Potassium 5.1 H (3.6-5.0) mmol/L Chloride 106 (98-107) mmol/L Carbon Dioxide 27 (21-33) mmol/L Anion Gap 12 (10-20) BUN 20 (7-21) mg/dL Creatinine 0.7 L (0.8-1.5) mg/dl Est GFR ( Amer) > 60 Est GFR (Non-Af Amer) > 60 POC Glucose (mg/dL) 100 (65-110) mg/dL Random Glucose 86 (70-110) mg/dL Calcium 9.1 (8.4-10.5) mg/dL Total Bilirubin 1.5 H (0.2-1.3) mg/dL AST 21 (17-59) U/L ALT 20 (7-56) U/L Alkaline Phosphatase 62 (38-126) U/L Total Protein 5.7 L (5.8-8.3) g/dL Albumin 3.5 (3.0-4.8) g/dL Globulin 2.2 gm/dL Albumin/Globulin Ratio 1.6 (1.1-1.8) 06/13/18 06/13/18 06/13/18 Range/Units 23:46 22:03 18:05 WBC (4.5-11.0) 10^3/uL RBC (3.5-6.1) 10^6/uL Hgb (14.0-18.0) g/dL Hct (42.0-52.0) % MCV (80.0-105.0) fl MCH (25.0-35.0) pg MCHC (31.0-37.0) g/dl RDW (11.5-14.5) % Plt Count (120.0-450.0) 10^3/uL MPV (7.0-11.0) fl Neut % (Auto) (50.0-68.0) % Lymph % (Auto) (22.0-35.0) % [place] % (Auto) (1.0-6.0) % Eos % (Auto) (1.5-5.0) % Baso % (Auto) (0.0-3.0) % Lymph # (Auto) (1.2-3.4) [place] # (Auto) (0.1-0.6) Eos # (Auto) (0.0-0.7) Baso # (Auto) (0.0-2.0) K/mm3 Absolute Neuts (auto) (1.4-6.5) Sodium (132-148) mmol/L Potassium (3.6-5.0) mmol/L Chloride (98-107) mmol/L Carbon Dioxide (21-33) mmol/L Anion Gap (10-20) BUN (7-21) mg/dL Creatinine (0.8-1.5) mg/dl Est GFR ( Amer) Est GFR (Non-Af Amer) POC Glucose (mg/dL) 160 H 202 H 89 (65-110) mg/dL Random Glucose (70-110) mg/dL Calcium (8.4-10.5) mg/dL Total Bilirubin (0.2-1.3) mg/dL AST (17-59) U/L ALT (7-56) U/L Alkaline Phosphatase (38-126) U/L Total Protein (5.8-8.3) g/dL Albumin (3.0-4.8) g/dL Globulin gm/dL Albumin/Globulin Ratio (1.1-1.8) 06/13/18 06/13/18 Range/Units 15:45 11:55 WBC 4.0 L (4.5-11.0) 10^3/uL RBC 3.73 (3.5-6.1) 10^6/uL Hgb 11.3 L (14.0-18.0) g/dL Hct 34.6 L (42.0-52.0) % MCV 92.8 (80.0-105.0) fl MCH 30.3 (25.0-35.0) pg MCHC 32.7 (31.0-37.0) g/dl RDW 18.0 H (11.5-14.5) % Plt Count 64 L (120.0-450.0) 10^3/uL MPV 9.6 (7.0-11.0) fl Neut % (Auto) 70.9 H (50.0-68.0) % Lymph % (Auto) 12.4 L (22.0-35.0) % [place] % (Auto) 8.1 H (1.0-6.0) % Eos % (Auto) 8.1 H (1.5-5.0) % Baso % (Auto) 0.5 (0.0-3.0) % Lymph # (Auto) 0.5 L (1.2-3.4) [place] # (Auto) 0.3 (0.1-0.6) Eos # (Auto) 0.3 (0.0-0.7) Baso # (Auto) 0.02 (0.0-2.0) K/mm3 Absolute Neuts (auto) 2.81 (1.4-6.5) Sodium (132-148) mmol/L Potassium (3.6-5.0) mmol/L Chloride (98-107) mmol/L Carbon Dioxide (21-33) mmol/L Anion Gap (10-20) BUN (7-21) mg/dL Creatinine (0.8-1.5) mg/dl Est GFR ( Amer) Est GFR (Non-Af Amer) POC Glucose (mg/dL) 95 (65-110) mg/dL Random Glucose (70-110) mg/dL Calcium (8.4-10.5) mg/dL Total Bilirubin (0.2-1.3) mg/dL AST (17-59) U/L ALT (7-56) U/L Alkaline Phosphatase (38-126) U/L Total Protein (5.8-8.3) g/dL Albumin (3.0-4.8) g/dL Globulin gm/dL Albumin/Globulin Ratio (1.1-1.8) Laboratory Results - last 24 hr 06/13/18 06/13/18 06/13/18 11:55 15:45 18:05 WBC 4.0 L RBC 3.73 Hgb 11.3 L Hct 34.6 L MCV 92.8 MCH 30.3 MCHC 32.7 RDW 18.0 H Plt Count 64 L MPV 9.6 Neut % (Auto) 70.9 H Lymph % (Auto) 12.4 L [place] % (Auto) 8.1 H Eos % (Auto) 8.1 H Baso % (Auto) 0.5 Lymph # (Auto) 0.5 L [place] # (Auto) 0.3 Eos # (Auto) 0.3 Baso # (Auto) 0.02 Absolute Neuts (auto) 2.81 Sodium Potassium Chloride Carbon Dioxide Anion Gap BUN Creatinine Est GFR ( Amer) Est GFR (Non-Af Amer) POC Glucose (mg/dL) 95 89 Random Glucose Calcium Total Bilirubin AST ALT Alkaline Phosphatase Total Protein Albumin Globulin Albumin/Globulin Ratio 06/13/18 06/13/18 06/14/18 22:03 23:46 05:46 WBC RBC Hgb Hct MCV MCH MCHC RDW Plt Count MPV Neut % (Auto) Lymph % (Auto) [place] % (Auto) Eos % (Auto) Baso % (Auto) Lymph # (Auto) [place] # (Auto) Eos # (Auto) Baso # (Auto) Absolute Neuts (auto) Sodium Potassium Chloride Carbon Dioxide Anion Gap BUN Creatinine Est GFR ( Amer) Est GFR (Non-Af Amer) POC Glucose (mg/dL) 202 H 160 H 100 Random Glucose Calcium Total Bilirubin AST ALT Alkaline Phosphatase Total Protein Albumin Globulin Albumin/Globulin Ratio 06/14/18 06/14/18 05:50 05:50 WBC 3.5 L RBC 3.44 L Hgb 10.4 L Hct 31.8 L MCV 92.4 MCH 30.2 MCHC 32.7 RDW 18.0 H Plt Count 68 L MPV 9.8 Neut % (Auto) Lymph % (Auto) [place] % (Auto) Eos % (Auto) Baso % (Auto) Lymph # (Auto) [place] # (Auto) Eos # (Auto) Baso # (Auto) Absolute Neuts (auto) Sodium 139 Potassium 5.1 H Chloride 106 Carbon Dioxide 27 Anion Gap 12 BUN 20 Creatinine 0.7 L Est GFR ( Amer) > 60 Est GFR (Non-Af Amer) > 60 POC Glucose (mg/dL) Random Glucose 86 Calcium 9.1 Total Bilirubin 1.5 H AST 21 ALT 20 Alkaline Phosphatase 62 Total Protein 5.7 L Albumin 3.5 Globulin 2.2 Albumin/Globulin Ratio 1.6 EKG/Cardiology Studies: Cardiology / EKG Studies 06/14/18 10:15 ELECTROCARDIOGRAM DAILY Comment: Reason For Exam: chest pain Critical Care Progress Note - Nutrition Nutrition: Nutrition Category Date Time Status Pureed [Dysphagia/Modified Consistency Diet] [DIET] Diets 06/13/18 Dinner Ordered Assessment/Plan - Assessment and Plan (Free Text) Plan: Patient seen and examined on rounds with resident, agree with note with following additions/exceptions: Patient is 77yo male with PMhx of Alzheimer's, non verbal at baseline, Parkinson's, HLD, an prostate cancer admitted for PCI, found to have LAD occlusion, with unsuccessful stenting. Pt deemed a candidate for CABG, awaiting transfer to [facility]. Cont with Sinemet Cont with ASA Heparin drip IVF PPI Levothyroxine DVT ppx Monitor in CCU Awaiting transfer to [facility]
[2018-06-14] MEDS: Carbidopa/Levodopa 25/100 CR PO SCH ×2 (11:00→15:30)
[2018-06-14] MEDS ORDERED: Heparin25000 units/250ml 1/2NS 25,000 UNITS/250 ML BAG IV SCH (11:00)
[2018-06-14] MEDS: Levothyroxine 75 MCG TAB PO SCH (11:19)
--- NOTE | 2018-06-14 12:26 | CARD ---
APPROVED REPORT Date of service: 06/14/2018 EKG Measurement Heart [id number] <Conclusion> Sinus bradycardia Low voltage QRS Cannot rule out Anterior infarct, age undetermined Abnormal ECG
--- NOTE | 2018-06-14 13:30 | CP.PCM.CON ---
<Fredrick Echevarria - Last Filed: 06/14/18 13:24> History of Present Illness - History of Present Illness History of Present Illness: Fredrick Echevarria D.O. PGY-3, Internal Medicine Resident, Infectious Disease Consultation Note 77 year old male with a past medical history significant for Alzheimer's dementia, Parkinson's disease, DM II, and COPD who presented from [facility] for an elective cardiac catheterization. Infectious disease consultation was requested for history of ESBL. Patient was seen and examined at bedside. Patient appears comfortable. Baseline non-verbal. Patient had a cardiac catheterization that revealed triple vessel disease and so no intervention was performed. Review of Systems - Review of Systems Systems not reviewed;Unavailable: Dementia Past Patient History - Infectious Disease Hx of Infectious Diseases: None - Past Social History Smoking Status: Former Smoker - CARDIAC Hx Pacemaker: No - PULMONARY Hx Chronic Obstructive Pulmonary Disease (COPD): Yes - NEUROLOGICAL Hx Paralysis: No - HEENT Hx HEENT Problems: No Hx Blind: No Hx Cataracts: No Hx Deafness: No Hx Difficulty Chewing: No Hx Epistaxis: No Hx Glaucoma: No Hx Macular Degeneration: No - RENAL Hx Renal Failure: Yes - ENDOCRINE/METABOLIC Hx Diabetes Mellitus Type 2: Yes Hx Hypothyroidism: Yes - HEMATOLOGICAL/ONCOLOGICAL Hx Blood Transfusions: Yes (06/20-06/25/2015- 5 UNITS) Hx Blood Transfusion Reaction: No - INTEGUMENTARY Hx Dermatological Problems: Yes Hx Basil Cell: No Hx Eczema: Yes Hx Melanoma: Yes Hx Psoriasis: No Hx Squamous Cell: No - MUSCULOSKELETAL/RHEUMATOLOGICAL Hx Musculoskeletal Disorders: No - GASTROINTESTINAL Hx Gastroesophageal Reflux: Yes - GENITOURINARY/GYNECOLOGICAL Hx Hematuria: No Hx Incontinence: Yes Hx Prostate Problems: Yes Hx Sexually Transmitted Disorders: No Hx Urinary Tract Infection: Yes - PSYCHIATRIC Hx Emotional Abuse: No Hx Physical Abuse: No Hx Substance Use: No - SURGICAL HISTORY Hx Surgeries: Yes (ABDOMINAL SX-SBO) - ANESTHESIA Hx Anesthesia Reactions: No Hx Malignant Hyperthermia: No Meds Allergies/Adverse Reactions: Allergies Allergy/AdvReac Type Severity Reaction Status Date / Time ceftriaxone sodium Allergy Unknown RASH Verified 06/09/18 12:19 [From Rocephin] - Medications Medications: Current Medications Albuterol/Ipratropium (Duoneb 3 Mg/0.5 Mg (3 Ml) Ud) 3 ml IH Q6H PRN PRN Reason: Wheezing Aspirin (Ecotrin) 81 mg PO DAILY COUNT INCLUDES THE [facility] Last Admin: 06/14/18 12:40 Dose: 81 mg Atorvastatin Calcium (Lipitor) 40 mg PO DIN COUNT INCLUDES THE [facility] Last Admin: 06/13/18 18:50 Dose: Not Given Carbidopa/Levodopa (Sinemet Cr) 1 tab PO TID COUNT INCLUDES THE [facility] Last Admin: 06/14/18 11:00 Dose: 1 tab Donepezil HCl (Aricept) 10 mg PO HS COUNT INCLUDES THE [facility] Last Admin: 06/13/18 22:24 Dose: 10 mg Sodium Chloride (Sodium Chloride 0.9%) 1,000 mls @ 100 mls/hr IV .Q10H COUNT INCLUDES THE [facility] Last Admin: 06/14/18 02:46 Dose: 100 mls/hr Heparin Sodium/Sodium Chloride (Heparin 31094 Units/250ml 1/2 Normal Saline) 25,000 units in 250 mls @ 7.022 mls/hr IV .Q24H COUNT INCLUDES THE [facility]; Protocol Last Admin: 06/14/18 11:20 Dose: 12 units/kg/hr, 7.022 mls/hr Insulin Human Lispro (Humalog Low) 0 units SC ACHS COUNT INCLUDES THE [facility]; Protocol Last Admin: 06/14/18 12:39 Dose: 1 u Levothyroxine Sodium (Synthroid) 75 mcg PO DAILY COUNT INCLUDES THE [facility] Last Admin: 06/14/18 11:19 Dose: 75 mcg Montelukast Sodium (Singulair) 10 mg PO DAILY COUNT INCLUDES THE [facility] Last Admin: 06/14/18 11:19 Dose: 10 mg Pantoprazole Sodium (Protonix Ec Tab) 40 mg PO ACB COUNT INCLUDES THE [facility] Last Admin: 06/14/18 08:59 Dose: 40 mg Physical Exam - Constitutional Appears: Non-toxic, Chronically Ill - Head Exam Head Exam: NORMOCEPHALIC - Eye Exam Eye Exam: EOMI. absent: Scleral icterus - ENT Exam ENT Exam: Mucous Membranes Moist - Neck Exam Neck exam: Positive for: Normal Inspection - Respiratory Exam Respiratory Exam: absent: Rales, Rhonchi - Cardiovascular Exam Cardiovascular Exam: +S1, +S2 - GI/Abdominal Exam GI & Abdominal Exam: Soft. absent: Distended - Extremities Exam Extremities exam: Negative for: calf tenderness - Neurological Exam Neurological exam: Alert - Skin Skin Exam: Dry, Warm Results - Vital Signs Recent Vital Signs: Last Vital Signs Temp 97.7 F 06/14/18 02:05 Pulse 46 L 06/14/18 07:02 Resp 16 06/14/18 07:02 BP 105/44 L 06/14/18 07:00 Pulse Ox 100 06/14/18 07:02 - Labs Result Diagrams: 06/14/18 05:50 06/14/18 05:50 Labs: Laboratory Results - last 24 hr 06/13/18 06/13/18 06/13/18 15:45 18:05 22:03 WBC 4.0 L RBC 3.73 Hgb 11.3 L Hct 34.6 L MCV 92.8 MCH 30.3 MCHC 32.7 RDW 18.0 H Plt Count 64 L MPV 9.6 Neut % (Auto) 70.9 H Lymph % (Auto) 12.4 L [place] % (Auto) 8.1 H Eos % (Auto) 8.1 H Baso % (Auto) 0.5 Lymph # (Auto) 0.5 L [place] # (Auto) 0.3 Eos # (Auto) 0.3 Baso # (Auto) 0.02 Absolute Neuts (auto) 2.81 Sodium Potassium Chloride Carbon Dioxide Anion Gap BUN Creatinine Est GFR ( Amer) Est GFR (Non-Af Amer) POC Glucose (mg/dL) 89 202 H Random Glucose Calcium Total Bilirubin AST ALT Alkaline Phosphatase Total Protein Albumin Globulin Albumin/Globulin Ratio 06/13/18 06/14/18 06/14/18 23:46 05:46 05:50 WBC 3.5 L RBC 3.44 L Hgb 10.4 L Hct 31.8 L MCV 92.4 MCH 30.2 MCHC 32.7 RDW 18.0 H Plt Count 68 L MPV 9.8 Neut % (Auto) Lymph % (Auto) [place] % (Auto) Eos % (Auto) Baso % (Auto) Lymph # (Auto) [place] # (Auto) Eos # (Auto) Baso # (Auto) Absolute Neuts (auto) Sodium Potassium Chloride Carbon Dioxide Anion Gap BUN Creatinine Est GFR ( Amer) Est GFR (Non-Af Amer) POC Glucose (mg/dL) 160 H 100 Random Glucose Calcium Total Bilirubin AST ALT Alkaline Phosphatase Total Protein Albumin Globulin Albumin/Globulin Ratio 06/14/18 05:50 WBC RBC Hgb Hct MCV MCH MCHC RDW Plt Count MPV Neut % (Auto) Lymph % (Auto) [place] % (Auto) Eos % (Auto) Baso % (Auto) Lymph # (Auto) [place] # (Auto) Eos # (Auto) Baso # (Auto) Absolute Neuts (auto) Sodium 139 Potassium 5.1 H Chloride 106 Carbon Dioxide 27 Anion Gap 12 BUN 20 Creatinine 0.7 L Est GFR ( Amer) > 60 Est GFR (Non-Af Amer) > 60 POC Glucose (mg/dL) Random Glucose 86 Calcium 9.1 Total Bilirubin 1.5 H AST 21 ALT 20 Alkaline Phosphatase 62 Total Protein 5.7 L Albumin 3.5 Globulin 2.2 Albumin/Globulin Ratio 1.6 Assessment & Plan - Assessment and Plan (Free Text) Assessment: 77 year old male with a past medical history significant for Alzheimer's dementia, Parkinson's disease, DM II, and COPD who presented from [facility] for an elective cardiac catheterization. Infectious disease consultation was requested for history of ESBL. Plan: Hx of ESBL UTI Alzheimer's demenetia Parkinson's disease DM2 COPD Last ESBL infection documented was in [address] Nicholson who reached out to [facility], multiple years since ESBL there Will discontinue isolation at this time Will repeat UA and Urine C&S Afebrile No leukocytosis We will follow with you Patient was seen and examined and case to be discussed with attending physician Thank you for the pleasure of participating in the care of this patient - Date & Time Date: 06/14/18 Time: 07:10 <Padilla Goode - Last Filed: 06/14/18 20:00> Results - Vital Signs Recent Vital Signs: Last Vital Signs Temp 97.7 F 06/14/18 02:05 Pulse 52 L 06/14/18 16:00 Resp 27 H 06/14/18 16:00 BP 89/39 L 06/14/18 16:00 Pulse Ox 98 06/14/18 16:00 - Labs Result Diagrams: 06/14/18 05:50 06/14/18 05:50 Labs: Laboratory Results - last 24 hr 06/13/18 06/13/18 06/14/18 22:03 23:46 05:46 WBC RBC Hgb Hct MCV MCH MCHC RDW Plt Count MPV Sodium Potassium Chloride Carbon Dioxide Anion Gap BUN Creatinine Est GFR ( Amer) Est GFR (Non-Af Amer) POC Glucose (mg/dL) 202 H 160 H 100 Random Glucose Calcium Total Bilirubin AST ALT Alkaline Phosphatase Total Protein Albumin Globulin Albumin/Globulin Ratio Urine Color Urine Appearance Urine pH Ur Specific [place] Urine Protein Urine Glucose (UA) Urine Ketones Urine Blood Urine Nitrate Urine Bilirubin Urine Urobilinogen Ur Leukocyte Esterase Urine RBC Urine WBC Urine Bacteria 06/14/18 06/14/18 06/14/18 05:50 05:50 11:01 WBC 3.5 L RBC 3.44 L Hgb 10.4 L Hct 31.8 L MCV 92.4 MCH 30.2 MCHC 32.7 RDW 18.0 H Plt Count 68 L MPV 9.8 Sodium 139 Potassium 5.1 H Chloride 106 Carbon Dioxide 27 Anion Gap 12 BUN 20 Creatinine 0.7 L Est GFR ( Amer) > 60 Est GFR (Non-Af Amer) > 60 POC Glucose (mg/dL) 157 H Random Glucose 86 Calcium 9.1 Total Bilirubin 1.5 H AST 21 ALT 20 Alkaline Phosphatase 62 Total Protein 5.7 L Albumin 3.5 Globulin 2.2 Albumin/Globulin Ratio 1.6 Urine Color Urine Appearance Urine pH Ur Specific [place] Urine Protein Urine Glucose (UA) Urine Ketones Urine Blood Urine Nitrate Urine Bilirubin Urine Urobilinogen Ur Leukocyte Esterase Urine RBC Urine WBC Urine Bacteria 06/14/18 12:30 WBC RBC Hgb Hct MCV MCH MCHC RDW Plt Count MPV Sodium Potassium Chloride Carbon Dioxide Anion Gap BUN Creatinine Est GFR ( Amer) Est GFR (Non-Af Amer) POC Glucose (mg/dL) Random Glucose Calcium Total Bilirubin AST ALT Alkaline Phosphatase Total Protein Albumin Globulin Albumin/Globulin Ratio Urine Color Yellow Urine Appearance Turbid Urine pH 6.0 Ur Specific [place] >= 1.030 Urine Protein 30 H Urine Glucose (UA) Negative Urine Ketones Negative Urine Blood Small H Urine Nitrate Negative Urine Bilirubin Negative Urine Urobilinogen 0.2 Ur Leukocyte Esterase Large H Urine RBC 0 - 2 Urine WBC Tntc H Urine Bacteria Few Attending/Attestation - Attestation I have personally seen and examined this patient.: Yes I have fully participated in the care of the patient.: Yes I have reviewed all pertinent clinical information: Yes
[2018-06-14 13:37] LABS: URINE BILIRUBIN NEGATIVE (NEGATIVE); URINE BLOOD SMALL (NEGATIVE); URINE GLUCOSE (UA) NEGATIVE (NEGATIVE); URINE LEUKOCYTE ESTERASE LARGE Leu/uL (NEGATIVE); URINE PROTEIN 30 mg/dL (<30 mg/dL); URINE UROBILINOGEN 0.2 E.U./dL (<1 E.U./dL)
[2018-06-14 13:41] LABS: URINE APPEARANCE TURBID (CLEAR); URINE COLOR YELLOW (YELLOW)
[2018-06-14 13:44] LABS: URINE BACTERIA FEW /hpf; URINE RBC 0 - 2 /hpf (0-2); URINE WBC TNTC /hpf (0-6)
--- NOTE | 2018-06-14 15:28 | PN ---
DATE: 06/14/2018 SUBJECTIVE: He is in the Intensive Care Unit. He is resting there. He has a coronary stent placed and impinged between calcium in his vessel around the heart. He is alert, comfortable. No chest pain or shortness breath or abdominal pain. He is talking to me. He is a little bit hungry he tells me. He is on Aricept, DuoNebs, Ecotrin, insulin, Lipitor, Protonix, Sinemet, Singulair, IV fluids and Synthroid. PHYSICAL EXAMINATION: VITAL SIGNS: Temperature 97.7, 46 pulse, 105/44 blood pressure, 16 respiratory rate, 100% O2 sat. HEAD: Atraumatic, normocephalic. HEART: Regular rate. LUNGS: Decreased breath sounds but clear. ABDOMEN: Soft. EXTREMITIES: No edema. He is comfortable lying in bed. LABORATORY DATA: He has a 3.5 white count, 10.4 hemoglobin, 31.8 hematocrit with 68 platelets. He has a 139 sodium, potassium is 5.1, BUN is 20, creatinine 0.7, GFR is greater than 60, sugar is 86, calcium 9.1, total bili is 1.5, AST is 21, ALT is 20, alk phos 52, total protein is 5.7. ASSESSMENT AND PLAN: We are in the process of getting transfer, I believe, to [facility] for open heart surgery, that is the plan. When they have a bed, we will transfer him. We will continue aggressive treatment and care. The patient is here for coronary artery disease. Sean Nicholson DO
--- NOTE | 2018-06-14 16:28 | PN ---
DATE: 06/14/2018 CARDIOLOGY FOLLOWUP SUBJECTIVE: The patient is comfortable without shortness of breath or without chest pain. PHYSICAL EXAMINATION VITAL SIGNS: Stable, heart rate is in the 50s. NECK: Negative JVD. LUNGS: Without rales. HEART: Reveals S1 and S2. EXTREMITIES: Without edema. LABORATORY DATA: Hemoglobin is 10.4. Chemistries, BUN and creatinine are unremarkable. IMPRESSION: 1. Triple-vessel coronary artery disease 2. Retain stent in the proximal left anterior descending and left main. 3. History of non-ST elevated myocardial infarction. 4. Diabetes mellitus. 5. History of dementia. Given these findings, the patient should have been transferred to [facility] yesterday. I have discussed it with the surgeon as well as the cardiothoracic department [facility]. They will facilitate the transfer today for the patient to have coronary artery bypass surgery. Janusz Landry MD
[2018-06-14 17:03] VITALS: BP 89/39; PULSE 52; RESP 27; O2SAT 98
== END 2018-06-14 16:55 | disposition short-term general hospital (02) | DRG 287 ==
LOC: CATH 05:58 → CCU 09:53 → CATH 10:05
PROVIDERS: ADMIT Family Medicine; ATTEND Internal Medicine Cardiovascular Disease
PROC: 4A023N7 Measurement of Cardiac Sampling and Pressure, Left Heart, Percutaneous Approach (ICD-10-PCS; principal; 2018-06-13)
PROC: B2151ZZ Fluoroscopy of Left Heart using Low Osmolar Contrast (ICD-10-PCS; 2018-06-13)
PROC: B2111ZZ Fluoroscopy of Multiple Coronary Arteries using Low Osmolar Contrast (ICD-10-PCS; 2018-06-13)
DX: I25.110 Atherosclerotic heart disease of native coronary artery with unstable angina pectoris (principal); G20 Parkinson's disease; G30.9 Alzheimer's disease, unspecified; F02.80 Dementia in other diseases classified elsewhere, unspecified severity, without behavioral disturbance, psychotic disturbance, mood disturbance, and anxiety; E11.9 Type 2 diabetes mellitus without complications; I50.9 Heart failure, unspecified; J44.9 Chronic obstructive pulmonary disease, unspecified; E78.5 Hyperlipidemia, unspecified; E03.9 Hypothyroidism, unspecified; R00.1 Bradycardia, unspecified; Z85.46 Personal history of malignant neoplasm of prostate; Z87.891 Personal history of nicotine dependence; Z87.440 Personal history of urinary (tract) infections; I25.2 Old myocardial infarction; Z87.11 Personal history of peptic ulcer disease

== ENCOUNTER 2018-06-23 23:42 | Inpatient (IN) | payer MEDICARE, MEDICAID ==
--- NOTE | 2018-06-23 23:56 | ED PDOC ---
Arrival/HPI - General Chief Complaint: Shortness Of Breath Time Seen by Provider: 06/23/18 23:43 Historian: EMS - History of Present Illness Narrative History of Present Illness (Text): 06/23/18 23:49 77 year old male, whose past medical history includes Alzheimer's, CHF, CAD, COPD, diabetes, GERD, and BPH, presents to the emergency department for shortness of breath and fever. It is unclear what patient's baseline mental sta te is according to transfer record. Patient arrives awake, alert, tachynpeic, with mild accessory muscle use. EMS states Tylenol and nebulizer treatments were given prior to arrival. HPI and ROS limited due to patient mental status. PMD: Dr. Nicholson Field Sales Consultant: Dr. Landry Time/Duration: Prior to Arrival Symptom Onset: Gradual Symptom Course: Unchanged Context: Home (Alf) Past Medical History - Provider Review Nursing Documentation Reviewed: Yes - Infectious Disease Hx of Infectious Diseases: None - Cardiac Hx Pacemaker: No - Pulmonary Hx Chronic Obstructive Pulmonary Disease (COPD): Yes - Neurological Hx Paralysis: No - HEENT Hx HEENT Disorder: No Hx Blind: No Hx Cataracts: No Hx Deafness: No Hx Difficulty Chewing: No Hx Epistaxis: No Hx Glaucoma: No Hx Macular Degeneration: No - Renal Hx Renal Failure: Yes - Endocrine/Metabolic Hx Diabetes Mellitus Type 2: Yes Hx Hypothyroidism: Yes - Hematological/Oncological Hx Blood Transfusions: Yes (06/20-06/25/2015- 5 UNITS) Hx Blood Transfusion Reaction: No - Integumentary Hx Dermatological Disorder: Yes Hx Basal Cell Carcinoma: No Hx Eczema: Yes Hx Melanoma: Yes Hx Psoriasis: No Hx Squamous Cell Carcinoma: No - Musculoskeletal/Rheumatological Hx Musculoskeletal Disorders: No - Gastrointestinal Hx Gastroesophageal Reflux: Yes - Genitourinary/Gynecological Hx Hematuria: No Hx Incontinence: Yes Hx Prostate Problems: Yes Hx Sexually Transmitted Diseases: No Hx Urinary Tract Infection: Yes - Psychiatric Hx Emotional Abuse: No Hx Physical Abuse: No Hx Substance Use: No - Surgical History Hx Mastectomy: No - Anesthesia Hx Anesthesia Reactions: No Hx Malignant Hyperthermia: No - Suicidal Assessment Feels Threatened In Home Enviroment: No Family/Social History - Physician Review Nursing Documentation Reviewed: Yes Family/Social History: No Known Family HX Smoking Status: Former Smoker Hx Alcohol Use: No Hx Substance Use: No Allergies/Home Meds Allergies/Adverse Reactions: Allergies ceftriaxone sodium [From Rocephin] Allergy (Unknown, Verified 06/23/18 23:45) RASH Home Medications: Home Meds Medication Instructions Recorded Confirmed Aspirin [Adult Low Dose Aspirin EC] 81 mg PO DAILY 08/21/16 06/23/18 Donepezil [Aricept] 10 mg PO HS 08/21/16 06/23/18 Levothyroxine [Synthroid] 75 mcg PO DAILY 08/21/16 06/23/18 Acetaminophen [Pain Reliever] 650 mg PO Q4 PRN 10/19/16 06/23/18 Atorvastatin [Lipitor] 40 mg PO HS 09/09/17 06/23/18 Montelukast [Singulair] 10 mg PO DAILY 10/10/17 06/23/18 Carbidopa/Levodopa [Sinemet Cr 1 tab PO TID 04/11/18 06/23/18 25-100 Tablet] Nut.tx.gluc.intoler,Lac-Fr,Soy 1,000 ml PO TID 05/17/18 06/23/18 [Glucerna] Omeprazole 20 mg PO DAILY 05/17/18 06/23/18 Albuterol/Ipratropium [Duoneb 3 3 ml IH PRN PRN 05/30/18 06/23/18 MG/3 Ml-0.5 MG/3 Ml 3 Ml] Albuterol/Ipratropium [Duoneb 3 1 unit INH Q6H 06/23/18 06/23/18 mg/0.5 mg (3 ml) UD] Clopidogrel [Plavix] 75 mg PO DAILY 06/23/18 06/23/18 Fluconazole [Diflucan] 100 mg PO DAILY 06/23/18 06/23/18 Sulfamethoxazole/Trimethoprim 1 tab PO Q12H 06/23/18 06/23/18 [Bactrim SS Tab] Review of Systems - Physician Review All systems were reviewed & negative as marked: Yes - Review of Systems Systems not reviewed;Unavailable: Dementia Constitutional: Fevers Respiratory: SOB Physical Exam - Physical Exam Narrative Physical Exam (Text): 06/23/18 23:56 Gen: VS reviewed, awake but confused, cachectic Eye: EOMI, PERRL ENT: normal pharynx but dry mucous membrane Neck: no JVD, supple, no adenopathy CV: rapid rate, regular rhythm, no rubs,no murmur, S1, S2 Pulm: tachypneic, crackles right lung base Abd: soft, nontender, no guarding, no rebound, no rigidity Ext: no edema Skin: good color, no rash, no cyanosis Psych: Limited due to patient's presumed confused state Neuro: Limited due to patient's presumed confused state 06/24/18 01:06 Medical Decision Making ED Course and Treatment: 06/24/18 00:01 Impression: 77 year old male presents with shortness of breath and fever. Plan: -- VBG -- EKG -- CMP, Mg, Phos -- CBC -- Chest X-ray -- Blood and Urine cultures -- Urinalysis -- Reassess and disposition Prior Visits: Notes and results from previous visits were reviewed. 06/24/18 00:[address] nicholson, patient to be admitted for severe sepsis stemming from right lower lobe infiltrate, empiric abx initiated aztreonam and levofloxacin. allergy to ceftriaxone noted. IVf initated and I feel it is safe/appropriate to fluid bolus as the patient is clinically dehydrated consult to dr. alfaro and infectious disease 06/24/18 01:00 the is at bedside and she is aware of the patient condition and disposition case discussed with dr. hurley, will se pt in consul for icu disposition 06/24/18 01:25 patient seen and examined by dr. hurley, defers admit to telemetry 06/24/18 01:54 i have been informed by the resident dane that the patient will be accepted to the icu tonight - Critical Care Critical Care Minutes: 60 minutes (critical for critical illness, complex medical decision making and coordination of care) - RAD Interpretation Narrative RAD Interpretations (Text): 06/24/18 00:24 Chest X-ray reviewed by me, shows: Right lower and right middle infiltrates suspicious for aspiration pneumonia Senior Cost Estimator: ED Physician - EKG Interpretation EKG Interpretation (Text): 06/24/18 00:28 ekg my read: sinus rhythm at 10 bpm, nml qrs, low voltage, nonspecific t wave abn Interpreted by ED Physician: Yes - Scribe Statement The provider has reviewed the documentation as recorded by the Scribe Janusz Franco All medical record entries made by the Scribe were at my direction and personally dictated by me. I have reviewed the chart and agree that the record accurately reflects my personal performance of the history, physical exam, medical decision making, and the department course for this patient. I have also personally directed, reviewed, and agree with the discharge instructions and disposition. Disposition/Present on Arrival - Present on Arrival Any Indicators Present on Arrival: No History of DVT/PE: No History of Uncontrolled Diabetes: Yes Urinary Catheter: No History of Decub. Ulcer: No History Surgical Site Infection Following: None - Disposition Have Diagnosis and Disposition been Completed?: Yes Diagnosis: Aspiration pneumonia, Sepsis Disposition: HOSPITALIZED Disposition Time: 00:24 Patient Plan: Admission Patient Problems: Current Active Problems Problem Status Onset Sepsis Acute Aspiration pneumonia Acute Condition: GUARDED
[2018-06-24 00:07] LABS: BASO # 0.01 K/mm3 (0.0-2.0); BASO % 0.2 % (0.0-3.0); LYMPH # 0.4 (1.2-3.4); LYMPH % 8.5 % (22.0-35.0); MEAN CELL VOLUME 91.9 fl (80.0-105.0); MEAN CORPUSCULAR HEMOGLOBIN 30.1 pg (25.0-35.0); MEAN CORPUSCULAR HGB CONC 32.7 g/dl (31.0-37.0); MEAN PLATELET VOLUME 9.9 fl (7.0-11.0); MONO # 0.3 (0.1-0.6); MONO % 7.2 % (1.0-6.0); RBC 4.32 10^6/uL (3.5-6.1); RED CELL DISTRIBUTION WIDTH 16.8 % (11.5-14.5); WHITE BLOOD COUNT 4.3 10^3/uL (4.5-11.0)
[2018-06-24 00:09] LABS: VENOUS BLOOD GAS BASE EXCESS -3.3 mmol/L (0.0-2.0); VENOUS BLOOD GAS PO2 50 mm/Hg (30-55); VENOUS BLOOD PH 7.38 (7.32-7.43)
[2018-06-24] MEDS ORDERED: levoFLOXacin 750 mg in D5W 150 ML BAG IVPB STA (00:18)
[2018-06-24] MEDS ORDERED: Aztreonam 2 Gm in NS 100mL 100 ML IVPB STA (00:19)
[2018-06-24] MEDS ORDERED: Sodium Chloride 0.9% 1,000 ML IV STA ×4 (00:20→03:19)
[2018-06-24 00:24] LABS: URINE BILIRUBIN SMALL (NEGATIVE); URINE BLOOD LARGE (NEGATIVE); URINE GLUCOSE (UA) 500 mg/dL (NEGATIVE); URINE LEUKOCYTE ESTERASE MODERATE Leu/uL (NEGATIVE); URINE PROTEIN 30 mg/dL (<30 mg/dL); URINE UROBILINOGEN 0.2 E.U./dL (<1 E.U./dL)
[2018-06-24 00:25] LABS: URINE APPEARANCE SL CLOUDY (CLEAR); URINE COLOR DARK YELLOW (YELLOW)
[2018-06-24 00:30] LABS: ALB/GLOB RATIO 1.3 (1.1-1.8); ALBUMIN 3.8 g/dL (3.0-4.8); ALT/SGPT 12 U/L (7-56); AST/SGOT 31 U/L (17-59); BLOOD UREA NITROGEN 43 mg/dL (7-21); CALCIUM 10.4 mg/dL (8.4-10.5); GFR NON-AFRICAN AMERICAN > 60
[2018-06-24 00:33] LABS: URINE BACTERIA SMALL /hpf; URINE EPITHELIAL CELLS 0 - 2 /hpf (0-5)
[2018-06-24] MEDS ORDERED: Albuterol-Ipratrop 3 mg / 0.5 (3 ml) UD IH STA (01:27)
[2018-06-24] MEDS ORDERED: Albuterol-Ipratrop 3 mg / 0.5 (3 ml) UD ONE (01:28)
[2018-06-24] MEDS ORDERED: Albuterol-Ipratrop 3 mg / 0.5 (3 ml) UD IH PRN (03:15)
--- NOTE | 2018-06-24 03:15 | CP.PCM.CON ---
Past Patient History - Infectious Disease Hx of Infectious Diseases: None - Past Social History Smoking Status: Former Smoker - CARDIAC Hx Pacemaker: No - PULMONARY Hx Chronic Obstructive Pulmonary Disease (COPD): Yes - NEUROLOGICAL Hx Paralysis: No - HEENT Hx HEENT Problems: No Hx Blind: No Hx Cataracts: No Hx Deafness: No Hx Difficulty Chewing: No Hx Epistaxis: No Hx Glaucoma: No Hx Macular Degeneration: No - RENAL Hx Renal Failure: Yes - ENDOCRINE/METABOLIC Hx Diabetes Mellitus Type 2: Yes Hx Hypothyroidism: Yes - HEMATOLOGICAL/ONCOLOGICAL Hx Blood Transfusions: Yes (06/20-06/25/2015- 5 UNITS) Hx Blood Transfusion Reaction: No - INTEGUMENTARY Hx Dermatological Problems: Yes Hx Basil Cell: No Hx Eczema: Yes Hx Melanoma: Yes Hx Psoriasis: No Hx Squamous Cell: No - MUSCULOSKELETAL/RHEUMATOLOGICAL Hx Musculoskeletal Disorders: No - GASTROINTESTINAL Hx Gastroesophageal Reflux: Yes - GENITOURINARY/GYNECOLOGICAL Hx Hematuria: No Hx Incontinence: Yes Hx Prostate Problems: Yes Hx Sexually Transmitted Disorders: No Hx Urinary Tract Infection: Yes - PSYCHIATRIC Hx Emotional Abuse: No Hx Physical Abuse: No Hx Substance Use: No - SURGICAL HISTORY Hx Mastectomy: No - ANESTHESIA Hx Anesthesia Reactions: No Hx Malignant Hyperthermia: No Meds Allergies/Adverse Reactions: Allergies Allergy/AdvReac Type Severity Reaction Status Date / Time ceftriaxone sodium Allergy Unknown RASH Verified 06/23/18 23:45 [From Rocephin] Results - Vital Signs Recent Vital Signs: Last Vital Signs Temp 100.1 F H 06/24/18 02:32 Pulse 119 H 06/24/18 02:32 Resp 24 06/24/18 02:32 BP 125/60 06/24/18 02:32 Pulse Ox 94 L 06/24/18 02:32 - Labs Result Diagrams: 06/23/18 23:50 06/23/18 23:50 Labs: Laboratory Results - last 24 hr 06/23/18 06/23/18 06/24/18 23:50 23:50 00:00 WBC 4.3 L D RBC 4.32 Hgb 13.0 L D Hct 39.7 L MCV 91.9 MCH 30.1 MCHC 32.7 RDW 16.8 H Plt Count 146 MPV 9.9 Neut % (Auto) 84.1 H Lymph % (Auto) 8.5 L [place] % (Auto) 7.2 H Eos % (Auto) 0.0 L Baso % (Auto) 0.2 Lymph # (Auto) 0.4 L [place] # (Auto) 0.3 Eos # (Auto) 0.0 Baso # (Auto) 0.01 Absolute Neuts (auto) 3.64 pO2 50 VBG pH 7.38 VBG pCO2 36.0 L VBG HCO3 21.3 VBG Total CO2 22.4 VBG O2 Sat (Calc) 82.2 H VBG Base Excess -3.3 L VBG Potassium 4.5 Glucose 275 H Lactate 4.3 H* FiO2 21.0 Crit Value Called To Rn Crit Value Called By Rs Blood Gas Notified Time 9 Sodium 137 134.0 Potassium 4.9 Chloride 101 100.0 Carbon Dioxide 22 Anion Gap 19 BUN 43 H Creatinine 1.0 Est GFR ( Amer) > 60 Est GFR (Non-Af Amer) > 60 Random Glucose 262 H Calcium 10.4 Phosphorus 3.8 Magnesium 1.9 Total Bilirubin 1.5 H AST 31 ALT 12 Alkaline Phosphatase 80 Total Protein 6.6 Albumin 3.8 Globulin 2.8 Albumin/Globulin Ratio 1.3 Venous Blood Potassium 4.5 Urine Color Urine Appearance Urine pH Ur Specific [place] Urine Protein Urine Glucose (UA) Urine Ketones Urine Blood Urine Nitrate Urine Bilirubin Urine Urobilinogen Ur Leukocyte Esterase Urine RBC Urine WBC Ur Epithelial Cells Urine Bacteria 06/24/18 00:05 WBC RBC Hgb Hct MCV MCH MCHC RDW Plt Count MPV Neut % (Auto) Lymph % (Auto) [place] % (Auto) Eos % (Auto) Baso % (Auto) Lymph # (Auto) [place] # (Auto) Eos # (Auto) Baso # (Auto) Absolute Neuts (auto) pO2 VBG pH VBG pCO2 VBG HCO3 VBG Total CO2 VBG O2 Sat (Calc) VBG Base Excess VBG Potassium Glucose Lactate FiO2 Crit Value Called To Crit Value Called By Blood Gas Notified Time Sodium Potassium Chloride Carbon Dioxide Anion Gap BUN Creatinine Est GFR ( Amer) Est GFR (Non-Af Amer) Random Glucose Calcium Phosphorus Magnesium Total Bilirubin AST ALT Alkaline Phosphatase Total Protein Albumin Globulin Albumin/Globulin Ratio Venous Blood Potassium Urine Color Dark yellow Urine Appearance Sl cloudy Urine pH 6.0 Ur Specific [place] >= 1.030 Urine Protein 30 H Urine Glucose (UA) 500 H Urine Ketones Trace H Urine Blood Large H Urine Nitrate Negative Urine Bilirubin Small H Urine Urobilinogen 0.2 Ur Leukocyte Esterase Moderate H Urine RBC 2 - 5 H Urine WBC 10 - 15 H Ur Epithelial Cells 0 - 2 Urine Bacteria Small
[2018-06-24] MEDS ORDERED: Dextrose 50% SYRINGE Inj (50 ml) IV PRN (03:19)
[2018-06-24 03:23] LABS: VENOUS BLOOD GAS BASE EXCESS -6.4 mmol/L (0.0-2.0); VENOUS BLOOD GAS PO2 21 mm/Hg (30-55); VENOUS BLOOD PH 7.28 (7.32-7.43)
--- NOTE | 2018-06-24 03:26 | CP.PCM.CON ---
<ChanceReinaldo - Last Filed: 06/24/18 03:21> History of Present Illness - History of Present Illness History of Present Illness: ICU consult note: Chance PGY - 2 Reason For Consult: SOB 77 M with pertinent history of triple vessel dz, COPD, and multiple admissions for Urosepsis presents with a few hour duration of shortness of breath. at [facility] providing history as patient's baseline is non-verbal (though claims that patient was more verbal the past few days before presentation). Patient resides in care home, so is not too sure about history, but she was told that patient became acutely short of breath and started shaking because he was "cold." Patient himself is alert but is not providing any history. Of note, patient was [place] [facility] [place] and was in the ICU. In light of these events and patient's clinical status, a discussion of DNR/DNI was had with the family as well as possibility of hospice/palliative care. Patient's family was urged to discuss the topic as a family. states that she is medical proxy. Review of Systems: 12 point ROS obtained but not elicited 2/2 mental status. PMD: Dr. Nicholson PMH: COPD, CAD w prior NSTEMI , DMT2, Peptic ulcer disease, Prostate cancer s/p brachytherapy, Parkinson's disease, Alzheimer dementia. PSHx: Cholecystostomy tube for ascending colangitis, tube removed last month. Umbilical hernia repair, small bowel obstruction and resection Social: Lives at [facility], former smoker Allergies: Ceftriaxone- reaction unknown per family Past Patient History - Infectious Disease Hx of Infectious Diseases: None - Past Social History Smoking Status: Former Smoker - CARDIAC Hx Pacemaker: No - PULMONARY Hx Chronic Obstructive Pulmonary Disease (COPD): Yes - NEUROLOGICAL Hx Paralysis: No - HEENT Hx HEENT Problems: No Hx Blind: No Hx Cataracts: No Hx Deafness: No Hx Difficulty Chewing: No Hx Epistaxis: No Hx Glaucoma: No Hx Macular Degeneration: No - RENAL Hx Renal Failure: Yes - ENDOCRINE/METABOLIC Hx Diabetes Mellitus Type 2: Yes Hx Hypothyroidism: Yes - HEMATOLOGICAL/ONCOLOGICAL Hx Blood Transfusions: Yes (06/20-06/25/2015- 5 UNITS) Hx Blood Transfusion Reaction: No - INTEGUMENTARY Hx Dermatological Problems: Yes Hx Basil Cell: No Hx Eczema: Yes Hx Melanoma: Yes Hx Psoriasis: No Hx Squamous Cell: No - MUSCULOSKELETAL/RHEUMATOLOGICAL Hx Musculoskeletal Disorders: No - GASTROINTESTINAL Hx Gastroesophageal Reflux: Yes - GENITOURINARY/GYNECOLOGICAL Hx Hematuria: No Hx Incontinence: Yes Hx Prostate Problems: Yes Hx Sexually Transmitted Disorders: No Hx Urinary Tract Infection: Yes - PSYCHIATRIC Hx Emotional Abuse: No Hx Physical Abuse: No Hx Substance Use: No - SURGICAL HISTORY Hx Mastectomy: No - ANESTHESIA Hx Anesthesia Reactions: No Hx Malignant Hyperthermia: No Meds Allergies/Adverse Reactions: Allergies Allergy/AdvReac Type Severity Reaction Status Date / Time ceftriaxone sodium Allergy Unknown RASH Verified 06/23/18 23:45 [From Rocephin] Physical Exam - Constitutional Appears: In Acute Distress, Chronically Ill - Head Exam Head Exam: ATRAUMATIC, NORMAL INSPECTION, NORMOCEPHALIC - Eye Exam Eye Exam: EOMI, Normal appearance, PERRL Pupil Exam: NORMAL ACCOMODATION, PERRL - ENT Exam ENT Exam: Mucous Membranes Moist, Normal Exam - Neck Exam Neck exam: Positive for: Normal Inspection - Respiratory Exam Respiratory Exam: Decreased Breath Sounds, Prolonged Expiratory Phase, Rales, Respiratory Distress - Cardiovascular Exam Cardiovascular Exam: Tachycardia, REGULAR RHYTHM - GI/Abdominal Exam GI & Abdominal Exam: Normal Bowel Sounds, Soft. absent: Tenderness - Extremities Exam Extremities exam: Positive for: pedal edema - Back Exam Back exam: NORMAL INSPECTION - Neurological Exam Neurological exam: Alert, CN II-XII Intact, Oriented x3, Reflexes Normal - Psychiatric Exam Psychiatric exam: Normal Affect, Normal Mood - Skin Skin Exam: Dry, Intact, Normal Color, Warm Results - Vital Signs Recent Vital Signs: Last Vital Signs Temp 100.1 F H 06/24/18 02:32 Pulse 119 H 06/24/18 02:32 Resp 24 06/24/18 02:32 BP 125/60 06/24/18 02:32 Pulse Ox 94 L 06/24/18 02:32 - Labs Result Diagrams: 06/23/18 23:50 06/23/18 23:50 Labs: Laboratory Results - last 24 hr 06/23/18 06/23/18 06/24/18 23:50 23:50 00:00 WBC 4.3 L D RBC 4.32 Hgb 13.0 L D Hct 39.7 L MCV 91.9 MCH 30.1 MCHC 32.7 RDW 16.8 H Plt Count 146 MPV 9.9 Neut % (Auto) 84.1 H Lymph % (Auto) 8.5 L [place] % (Auto) 7.2 H Eos % (Auto) 0.0 L Baso % (Auto) 0.2 Lymph # (Auto) 0.4 L [place] # (Auto) 0.3 Eos # (Auto) 0.0 Baso # (Auto) 0.01 Absolute Neuts (auto) 3.64 pO2 50 VBG pH 7.38 VBG pCO2 36.0 L VBG HCO3 21.3 VBG Total CO2 22.4 VBG O2 Sat (Calc) 82.2 H VBG Base Excess -3.3 L VBG Potassium 4.5 Glucose 275 H Lactate 4.3 H* FiO2 21.0 Crit Value Called To Rn Crit Value Called By Rs Blood Gas Notified Time 9 Sodium 137 134.0 Potassium 4.9 Chloride 101 100.0 Carbon Dioxide 22 Anion Gap 19 BUN 43 H Creatinine 1.0 Est GFR ( Amer) > 60 Est GFR (Non-Af Amer) > 60 Random Glucose 262 H Calcium 10.4 Phosphorus 3.8 Magnesium 1.9 Total Bilirubin 1.5 H AST 31 ALT 12 Alkaline Phosphatase 80 Total Protein 6.6 Albumin 3.8 Globulin 2.8 Albumin/Globulin Ratio 1.3 Venous Blood Potassium 4.5 Urine Color Urine Appearance Urine pH Ur Specific [place] Urine Protein Urine Glucose (UA) Urine Ketones Urine Blood Urine Nitrate Urine Bilirubin Urine Urobilinogen Ur Leukocyte Esterase Urine RBC Urine WBC Ur Epithelial Cells Urine Bacteria 06/24/18 00:05 WBC RBC Hgb Hct MCV MCH MCHC RDW Plt Count MPV Neut % (Auto) Lymph % (Auto) [place] % (Auto) Eos % (Auto) Baso % (Auto) Lymph # (Auto) [place] # (Auto) Eos # (Auto) Baso # (Auto) Absolute Neuts (auto) pO2 VBG pH VBG pCO2 VBG HCO3 VBG Total CO2 VBG O2 Sat (Calc) VBG Base Excess VBG Potassium Glucose Lactate FiO2 Crit Value Called To Crit Value Called By Blood Gas Notified Time Sodium Potassium Chloride Carbon Dioxide Anion Gap BUN Creatinine Est GFR ( Amer) Est GFR (Non-Af Amer) Random Glucose Calcium Phosphorus Magnesium Total Bilirubin AST ALT Alkaline Phosphatase Total Protein Albumin Globulin Albumin/Globulin Ratio Venous Blood Potassium Urine Color Dark yellow Urine Appearance Sl cloudy Urine pH 6.0 Ur Specific [place] >= 1.030 Urine Protein 30 H Urine Glucose (UA) 500 H Urine Ketones Trace H Urine Blood Large H Urine Nitrate Negative Urine Bilirubin Small H Urine Urobilinogen 0.2 Ur Leukocyte Esterase Moderate H Urine RBC 2 - 5 H Urine WBC 10 - 15 H Ur Epithelial Cells 0 - 2 Urine Bacteria Small Assessment & Plan - Assessment and Plan (Free Text) Assessment: 77 M under ICU management for acute severe sepsis with lactic acidosis COPD CAD w prior NSTEMI DMT2 Peptic ulcer disease Prostate cancer s/p brachytherapy Parkinson's disease Alzheimer dementia Recommend - Admit to MICU - Tropes X 3; AM Labs - CXR Daily, VBG Daily - Azactam and Levaquin - Fluid resuscitation per sepsis protocol - Procal stat - Duonebs treatment - Blood cultures, urine cultures; legionella antigen - RISS with accuchecks; hold home DM meds - ID Consult: Dr. Goode - Pulm Consult: Dr. Pamrar - GI/DVT PPX <Juan Mcknight - Last Filed: 06/24/18 19:12> Meds - Medications Medications: Current Medications Acetaminophen (Tylenol 325mg Tab) 650 mg PO Q6H PRN PRN Reason: Fever >100.4 F Albuterol/Ipratropium (Duoneb 3 Mg/0.5 Mg (3 Ml) Ud) 3 ml IH Q2H PRN PRN Reason: Shortness of Breath Albuterol/Ipratropium (Duoneb 3 Mg/0.5 Mg (3 Ml) Ud) 3 ml IH [id number] [facility] Last Admin: 06/24/18 13:38 Dose: 3 ml Aspirin (Ecotrin) 81 mg PO DAILY [facility] Last Admin: 06/24/18 12:59 Dose: 81 mg Budesonide (Pulmicort Respules) 0.5 mg IH [id number] [facility] Last Admin: 06/24/18 08:08 Dose: 0.5 mg Clopidogrel Bisulfate (Plavix) 75 mg PO DAILY [facility] Last Admin: 06/24/18 09:25 Dose: 75 mg Dextrose (Dextrose 50% Inj) 0 ml IV STAT PRN; Protocol PRN Reason: Hypoglycemia Protocol Enoxaparin Sodium (Lovenox) 40 mg SC DAILY [facility]; Protocol Last Admin: 06/24/18 09:24 Dose: 40 mg Hydrocortisone Sodium Succinate (Solu-Cortef) 100 mg IVP Q8 [facility] Last Admin: 06/24/18 13:46 Dose: Not Given Dextrose (Dextrose 5% In Water 1000 Ml) 1,000 mls @ 0 mls/hr IV .Q0M PRN; Protocol PRN Reason: Hypoglycemia Protocol Acetaminophen (Ofirmev) 1,000 mg in 100 mls @ 400 mls/hr IVPB Q6H PRN PRN Reason: Temperature Stop: 06/26/18 03:45 Last Admin: 06/24/18 11:35 Dose: 400 mls/hr Phenylephrine HCl 40 mg/ (Sodium Chloride) 254 mls @ 38.1 mls/hr IV .Q6H40M PRN; Protocol PRN Reason: TITRATE PER MD ORDER Last Admin: 06/24/18 18:28 Dose: 270 mcg/min, 102.87 mls/hr Dexmedetomidine HCl (Precedex 400mcg/100ml) 400 mcg in 100 mls @ 3.062 mls/hr IV .Q24H PRN; Protocol PRN Reason: Sedation Last Titration: 06/24/18 10:16 Dose: 0.4 mcg/kg/hr, 6.124 mls/hr NOREPINEPHRINE BIT/0.9 % NACL (Levophed 4 Mg/ 250 Ml Ns Premixed) 4 mg in 250 mls @ 15 mls/hr IV .[id number] PRN; Protocol PRN Reason: TITRATE PER MD ORDER Last Admin: 06/24/18 15:15 Dose: 16 mcg/min, 60 mls/hr Vasopressin 20 units/ Sodium (Chloride) 101 mls @ 9.09 mls/hr IV .Q11H7M [facility]; Protocol Last Admin: 06/24/18 12:49 Dose: 9.09 mls/hr Doxycycline Hyclate 100 mg/ (Sodium Chloride) 100 mls @ 100 mls/hr IVPB Q12 [facility]; Protocol Last Admin: 06/24/18 13:59 Dose: 100 mls/hr Meropenem (Merrem Iv 1 Gm Premix) 1 gm in 50 mls @ 12.5 mls/hr IVPB Q8 [facility]DA; Protocol Stop: 07/01/18 14:01 Last Admin: 06/24/18 13:52 Dose: 12.5 mls/hr Vancomycin HCl (Vancomycin 1gm) 1 gm in 250 mls @ 167 mls/hr IVPB Q12H [facility]; Protocol Last Admin: 06/24/18 13:53 Dose: 167 mls/hr Sodium Bicarbonate 150 meq/ (Dextrose) 1,150 mls @ 100 mls/hr IV .[id number] [facility] Last Admin: 06/24/18 18:30 Dose: 100 mls/hr Insulin Human Regular (Humulin R Med) 0 units SC ACHS [facility]; Protocol Last Admin: 06/24/18 13:01 Dose: Not Given Morphine Sulfate (Morphine) 2 mg IVP Q3H PRN PRN Reason: Pain, severe (8-10) Nystatin (Nystop Topical Powder) 0 gm TOP Q6H [facility] Last Admin: 06/24/18 19:02 Dose: 1 dose Pantoprazole Sodium (Protonix Inj) 40 mg IVP DAILY [facility] Last Admin: 06/24/18 09:23 Dose: 40 mg Results - Vital Signs Recent Vital Signs: Last Vital Signs Temp 101.1 F H 06/24/18 05:44 Pulse 127 H 06/24/18 07:00 Resp 37 H 06/24/18 08:24 BP 69/66 L 06/24/18 12:49 Pulse Ox 91 L 06/24/18 05:10 - Labs Result Diagrams: 06/24/18 09:30 06/24/18 09:30 Labs: Laboratory Results - last 24 hr 06/23/18 06/23/18 06/24/18 23:50 23:50 00:00 WBC 4.3 L D RBC 4.32 Hgb 13.0 L D Hct 39.7 L MCV 91.9 MCH 30.1 MCHC 32.7 RDW 16.8 H Plt Count 146 MPV 9.9 Neut % (Auto) 84.1 H Lymph % (Auto) 8.5 L [place] % (Auto) 7.2 H Eos % (Auto) 0.0 L Baso % (Auto) 0.2 Lymph # (Auto) 0.4 L [place] # (Auto) 0.3 Eos # (Auto) 0.0 Baso # (Auto) 0.01 Absolute Neuts (auto) 3.64 Neutrophils % (Manual) Band Neutrophils % Lymphocytes % (Manual) Monocytes % (Manual) Eosinophils % (Manual) Metamyelocytes % Myelocytes % Large Platelets pCO2 pO2 50 HCO3 ABG pH ABG Total CO2 ABG O2 Saturation ABG O2 Content ABG Base Excess ABG Hemoglobin ABG Carboxyhemoglobin POC ABG HHb (Measured) ABG Methemoglobin ABG O2 Capacity VBG pH 7.38 VBG pCO2 36.0 L VBG HCO3 21.3 VBG Total CO2 22.4 VBG O2 Sat (Calc) 82.2 H VBG Base Excess -3.3 L VBG Potassium 4.5 Hgb O2 Saturation Glucose 275 H Lactate 4.3 H* FiO2 21.0 Crit Value Called To Rn Crit Value Called By Rs Blood Gas Notified Time 9 Sodium 137 134.0 Potassium 4.9 Chloride 101 100.0 Carbon Dioxide 22 Anion Gap 19 BUN 43 H Creatinine 1.0 Est GFR ( Amer) > 60 Est GFR (Non-Af Amer) > 60 POC Glucose (mg/dL) Random Glucose 262 H Calcium 10.4 Phosphorus 3.8 Magnesium 1.9 Total Bilirubin 1.5 H AST 31 ALT 12 Alkaline Phosphatase 80 Lactate Dehydrogenase Total Creatine Kinase CK-MB (CK-2) CK-MB (CK-2) % Troponin I NT-Pro-B Natriuret Pep Total Protein 6.6 Albumin 3.8 Globulin 2.8 Albumin/Globulin Ratio 1.3 Procalcitonin Venous Blood Potassium 4.5 Urine Color Urine Appearance Urine pH Ur Specific [place] Urine Protein Urine Glucose (UA) Urine Ketones Urine Blood Urine Nitrate Urine Bilirubin Urine Urobilinogen Ur Leukocyte Esterase Urine RBC Urine WBC Ur Epithelial Cells Urine Bacteria 06/24/18 06/24/18 06/24/18 00:05 03:10 03:37 WBC RBC Hgb Hct MCV MCH MCHC RDW Plt Count MPV Neut % (Auto) Lymph % (Auto) [place] % (Auto) Eos % (Auto) Baso % (Auto) Lymph # (Auto) [place] # (Auto) Eos # (Auto) Baso # (Auto) Absolute Neuts (auto) Neutrophils % (Manual) Band Neutrophils % Lymphocytes % (Manual) Monocytes % (Manual) Eosinophils % (Manual) Metamyelocytes % Myelocytes % Large Platelets pCO2 pO2 21 L HCO3 ABG pH ABG Total CO2 ABG O2 Saturation ABG O2 Content ABG Base Excess ABG Hemoglobin ABG Carboxyhemoglobin POC ABG HHb (Measured) ABG Methemoglobin ABG O2 Capacity VBG pH 7.28 L VBG pCO2 43.0 VBG HCO3 20.2 L VBG Total CO2 21.5 L VBG O2 Sat (Calc) 22.8 L VBG Base Excess -6.4 L VBG Potassium 5.0 Hgb O2 Saturation Glucose 194 H Lactate 5.1 H* FiO2 21.0 Crit Value Called To Rn Crit Value Called By Rs Blood Gas Notified Time 322 Sodium 138.0 Potassium Chloride 109.0 H Carbon Dioxide Anion Gap BUN Creatinine Est GFR ( Amer) Est GFR (Non-Af Amer) POC Glucose (mg/dL) 160 H Random Glucose Calcium Phosphorus Magnesium Total Bilirubin AST ALT Alkaline Phosphatase Lactate Dehydrogenase Total Creatine Kinase CK-MB (CK-2) CK-MB (CK-2) % Troponin I NT-Pro-B Natriuret Pep Total Protein Albumin Globulin Albumin/Globulin Ratio Procalcitonin Venous Blood Potassium 5.0 Urine Color Dark yellow Urine Appearance Sl cloudy Urine pH 6.0 Ur Specific [place] >= 1.030 Urine Protein 30 H Urine Glucose (UA) 500 H Urine Ketones Trace H Urine Blood Large H Urine Nitrate Negative Urine Bilirubin Small H Urine Urobilinogen 0.2 Ur Leukocyte Esterase Moderate H Urine RBC 2 - 5 H Urine WBC 10 - 15 H Ur Epithelial Cells 0 - 2 Urine Bacteria Small 06/24/18 06/24/18 06/24/18 03:38 03:38 07:00 WBC RBC Hgb Hct MCV MCH MCHC RDW Plt Count MPV Neut % (Auto) Lymph % (Auto) [place] % (Auto) Eos % (Auto) Baso % (Auto) Lymph # (Auto) [place] # (Auto) Eos # (Auto) Baso # (Auto) Absolute Neuts (auto) Neutrophils % (Manual) Band Neutrophils % Lymphocytes % (Manual) Monocytes % (Manual) Eosinophils % (Manual) Metamyelocytes % Myelocytes % Large Platelets pCO2 pO2 40 HCO3 ABG pH ABG Total CO2 ABG O2 Saturation ABG O2 Content ABG Base Excess ABG Hemoglobin ABG Carboxyhemoglobin POC ABG HHb (Measured) ABG Methemoglobin ABG O2 Capacity VBG pH 7.18 L* VBG pCO2 48.0 VBG HCO3 17.9 L VBG Total CO2 19.4 L VBG O2 Sat (Calc) 67.5 H VBG Base Excess -10.4 L VBG Potassium 3.5 L Hgb O2 Saturation Glucose 125 H Lactate 4.5 H* FiO2 21.0 Crit Value Called To Praful empirial Crit Value Called By Es Blood Gas Notified Time 741 Sodium 142.0 Potassium Chloride 111.0 H Carbon Dioxide Anion Gap BUN Creatinine Est GFR ( Amer) Est GFR (Non-Af Amer) POC Glucose (mg/dL) Random Glucose Calcium Phosphorus Magnesium Total Bilirubin AST ALT Alkaline Phosphatase Lactate Dehydrogenase 397 Total Creatine Kinase 39 CK-MB (CK-2) CK-MB (CK-2) % Troponin I 0.26 H* D NT-Pro-B Natriuret Pep Total Protein Albumin Globulin Albumin/Globulin Ratio Procalcitonin 6.31 H Venous Blood Potassium 3.5 L Urine Color Urine Appearance Urine pH Ur Specific [place] Urine Protein Urine Glucose (UA) Urine Ketones Urine Blood Urine Nitrate Urine Bilirubin Urine Urobilinogen Ur Leukocyte Esterase Urine RBC Urine WBC Ur Epithelial Cells Urine Bacteria 06/24/18 06/24/18 06/24/18 07:00 08:19 09:07 WBC RBC Hgb Hct MCV MCH MCHC RDW Plt Count MPV Neut % (Auto) Lymph % (Auto) [place] % (Auto) Eos % (Auto) Baso % (Auto) Lymph # (Auto) [place] # (Auto) Eos # (Auto) Baso # (Auto) Absolute Neuts (auto) Neutrophils % (Manual) Band Neutrophils % Lymphocytes % (Manual) Monocytes % (Manual) Eosinophils % (Manual) Metamyelocytes % Myelocytes % Large Platelets pCO2 30 L pO2 168.0 H HCO3 14.1 L ABG pH 7.28 L ABG Total CO2 15.0 L ABG O2 Saturation 99.8 H ABG O2 Content 14.8 L ABG Base Excess -11.4 L ABG Hemoglobin 10.6 L ABG Carboxyhemoglobin 2.1 H POC ABG HHb (Measured) 0.2 ABG Methemoglobin 1.1 ABG O2 Capacity 14.8 L VBG pH VBG pCO2 VBG HCO3 VBG Total CO2 VBG O2 Sat (Calc) VBG Base Excess VBG Potassium Hgb O2 Saturation 96.6 Glucose Lactate FiO2 100.0 Crit Value Called To Crit Value Called By Blood Gas Notified Time Sodium Potassium Chloride Carbon Dioxide Anion Gap BUN Creatinine Est GFR ( Amer) Est GFR (Non-Af Amer) POC Glucose (mg/dL) 103 Random Glucose Calcium Phosphorus Magnesium Total Bilirubin AST ALT Alkaline Phosphatase Lactate Dehydrogenase Total Creatine Kinase CK-MB (CK-2) CK-MB (CK-2) % Troponin I NT-Pro-B Natriuret Pep 4220 H Total Protein Albumin Globulin Albumin/Globulin Ratio Procalcitonin Venous Blood Potassium Urine Color Urine Appearance Urine pH Ur Specific [place] Urine Protein Urine Glucose (UA) Urine Ketones Urine Blood Urine Nitrate Urine Bilirubin Urine Urobilinogen Ur Leukocyte Esterase Urine RBC Urine WBC Ur Epithelial Cells Urine Bacteria 06/24/18 06/24/18 06/24/18 09:30 09:30 10:56 WBC 4.1 L RBC 3.50 Hgb 10.4 L D Hct 33.1 L MCV 94.6 MCH 29.7 MCHC 31.4 RDW 16.8 H Plt Count 105 L MPV 10.0 Neut % (Auto) 91.9 H Lymph % (Auto) 3.7 L [place] % (Auto) 4.2 Eos % (Auto) 0.2 L Baso % (Auto) 0.0 Lymph # (Auto) 0.2 L [place] # (Auto) 0.2 Eos # (Auto) 0.0 Baso # (Auto) 0.00 Absolute Neuts (auto) 3.75 Neutrophils % (Manual) 60 Band Neutrophils % 13 H* Lymphocytes % (Manual) 8 L Monocytes % (Manual) 14 H Eosinophils % (Manual) 1 Metamyelocytes % 3 Myelocytes % 1 Large Platelets Present pCO2 pO2 HCO3 ABG pH ABG Total CO2 ABG O2 Saturation ABG O2 Content ABG Base Excess ABG Hemoglobin ABG Carboxyhemoglobin POC ABG HHb (Measured) ABG Methemoglobin ABG O2 Capacity VBG pH VBG pCO2 VBG HCO3 VBG Total CO2 VBG O2 Sat (Calc) VBG Base Excess VBG Potassium Hgb O2 Saturation Glucose Lactate FiO2 Crit Value Called To Crit Value Called By Blood Gas Notified Time Sodium 140 Potassium 3.7 Chloride 113 H Carbon Dioxide 18 L Anion Gap 13 BUN 37 H Creatinine 1.0 Est GFR ( Amer) > 60 Est GFR (Non-Af Amer) > 60 POC Glucose (mg/dL) 123 H Random Glucose 113 H Calcium 8.5 Phosphorus Magnesium 1.5 L Total Bilirubin 1.2 AST 32 ALT 16 Alkaline Phosphatase 55 Lactate Dehydrogenase 412 Total Creatine Kinase 169 CK-MB (CK-2) CK-MB (CK-2) % Troponin I 2.67 H* D NT-Pro-B Natriuret Pep Total Protein 4.5 L Albumin 2.6 L Globulin 1.9 Albumin/Globulin Ratio 1.4 Procalcitonin Venous Blood Potassium Urine Color Urine Appearance Urine pH Ur Specific [place] Urine Protein Urine Glucose (UA) Urine Ketones Urine Blood Urine Nitrate Urine Bilirubin Urine Urobilinogen Ur Leukocyte Esterase Urine RBC Urine WBC Ur Epithelial Cells Urine Bacteria 06/24/18 06/24/18 06/24/18 11:10 15:05 15:05 WBC RBC Hgb Hct MCV MCH MCHC RDW Plt Count MPV Neut % (Auto) Lymph % (Auto) [place] % (Auto) Eos % (Auto) Baso % (Auto) Lymph # (Auto) [place] # (Auto) Eos # (Auto) Baso # (Auto) Absolute Neuts (auto) Neutrophils % (Manual) Band Neutrophils % Lymphocytes % (Manual) Monocytes % (Manual) Eosinophils % (Manual) Metamyelocytes % Myelocytes % Large Platelets pCO2 pO2 38 73 H HCO3 ABG pH ABG Total CO2 ABG O2 Saturation ABG O2 Content ABG Base Excess ABG Hemoglobin ABG Carboxyhemoglobin POC ABG HHb (Measured) ABG Methemoglobin ABG O2 Capacity VBG pH 7.11 L* 6.87 L* VBG pCO2 44.0 40.0 VBG HCO3 14.0 L 7.3 L VBG Total CO2 15.4 L 8.5 L VBG O2 Sat (Calc) 63.0 89.0 H VBG Base Excess -15.1 L -25.8 L VBG Potassium 3.9 7.4 H* Hgb O2 Saturation Glucose 131 H 47 L Lactate 7.9 H* 12.8 H* FiO2 21.0 21.0 Crit Value Called To Gaby Solorio Crit Value Called By Ab Blood Gas Notified Time 1129 1513 Sodium 142.0 139.0 Potassium Chloride 108.0 H 108.0 H Carbon Dioxide Anion Gap BUN Creatinine Est GFR ( Amer) Est GFR (Non-Af Amer) POC Glucose (mg/dL) Random Glucose Calcium Phosphorus Magnesium Total Bilirubin AST ALT Alkaline Phosphatase Lactate Dehydrogenase 3187 H Total Creatine Kinase 1330 H CK-MB (CK-2) 196.0 H CK-MB (CK-2) % 14.7 H Troponin I 57.00 H* D NT-Pro-B Natriuret Pep Total Protein Albumin Globulin Albumin/Globulin Ratio Procalcitonin Venous Blood Potassium 3.9 7.4 H* Urine Color Urine Appearance Urine pH Ur Specific [place] Urine Protein Urine Glucose (UA) Urine Ketones Urine Blood Urine Nitrate Urine Bilirubin Urine Urobilinogen Ur Leukocyte Esterase Urine RBC Urine WBC Ur Epithelial Cells Urine Bacteria Attending/Attestation - Attestation I have personally seen and examined this patient.: Yes I have fully participated in the care of the patient.: Yes I have reviewed all pertinent clinical information: Yes Notes (Text): 06/24/18 19:12 seen and examined. Discussed with resident. A& P as above.
[2018-06-24] MEDS ORDERED: Albuterol-Ipratrop 3 mg / 0.5 (3 ml) UD IH SCH (03:30)
[2018-06-24] MEDS ORDERED: Sodium Chloride 0.9% 1,000 ML IV SCH ×2 (03:45→05:07)
[2018-06-24] MEDS ORDERED: Nystatin 100,000 Units/gm Topical Pow(15 gm) TOP SCH (04:00)
[2018-06-24 04:53] LABS: TROPONIN I 0.26 ng/mL
[2018-06-24] MEDS ORDERED: DOPamine 400mg/250ml D5W 400 MG/250 ML BAG IV PRN (06:25)
[2018-06-24] MEDS ORDERED: DOPamine 400mg/250ml D5W 400 MG/250 ML BAG IV ONE (06:27)
[2018-06-24] MEDS ORDERED: Midazolam 2 MG/2 ML VIAL ONE ×2 (06:32→06:44)
[2018-06-24] MEDS ORDERED: Midazolam 2 MG/2 ML VIAL IVP ONE ×2 (06:33→06:49)
[2018-06-24] MEDS ORDERED: Etomidate 20 mg/10ml Inj IV ONE (06:38)
[2018-06-24 07:42] LABS: VENOUS BLOOD GAS BASE EXCESS -10.4 mmol/L (0.0-2.0); VENOUS BLOOD GAS PO2 40 mm/Hg (30-55); VENOUS BLOOD PH 7.18 (7.32-7.43)
[2018-06-24 08:03] VITALS: BMI 18.3
[2018-06-24] MEDS: Budesonide 0.5 mg/2 ml Inhal Susp UD IH SCH ×2 (08:08→20:45)
--- NOTE | 2018-06-24 08:17 | PCM.PROC ---
<Huseyin Aguilar - Last Filed: 06/24/18 09:11> Procedures Attestation:: I certify that I have explained the specified Operation(s) or Procedure(s), risks, benefits and reasonable alternatives to the Patient and/or other person responsible. The opportunity was given to ask questions and all questions answered - Central Line Placement Right Internal Jugular Aseptic technique was employed throughout the procedure: Hand Hygiene done prior to procedure, Full sterile barriers (mask, hair cover, sterile gown, sterile gloves), Full body sterile drape, Chloraprep Antiseptic: 30 second prep for IJ or SC sites CVP Time Out Performed: No Pt. Placed on Pulse Ox Monitor: Yes Central Line Prep: Chlorhexidine-Alcohol Combination Local Anesthesia Used: Lidocaine 2% Amount of Anesthesia Used (mls): 2 Ultrasound Used for Placement: Yes Central Line Lumen Inserted: triple Central Line Length: 20 cm Post Procedure: Sutured in Place, Good Blood Return, All Ports Aspirated, Flushed, Capped, Sterile Dressing Applied Secured by: Securement device Post procedure dressing: Clear vapor permeable, Chlorhexidine disc (Biopatch) Post Procedure X-Ray: Yes Patient Tolerated Procedure: Well Immediate Complications: None <Steve Varela - Last Filed: 06/24/18 09:35> Attending/Attestation - Attestation I have personally seen and examined this patient.: Yes I have fully participated in the care of the patient.: Yes I have reviewed all pertinent clinical information, including history, physical exam and plan: Yes Notes (Text): 06/24/18 09:34 I was present at bedside and supervised the placement of this US guided emergent central line catheter.
--- NOTE | 2018-06-24 08:17 | PCM.SEPTIC ---
<Lino Sevilla - Last Filed: 06/24/18 08:14> Sepsis Progress Note - Reassessment Type Date of Evaluation: 06/24/18 Time of Evaluation: 03:20 Reassessment Type: Non-invasive reassessment - Non Invasive Reassessment Were the most recent vital sign reviewed: Yes Vital Sign (Latest): Temp Pulse Resp BP Pulse Ox 101.1 F H 100 H 37 H 83/50 L 91 L 06/24/18 05:44 06/24/18 06:00 06/24/18 05:44 06/24/18 05:03 06/24/18 05:10 Cardiovascular: Yes: Tachycardia Respiratory: Yes: Accessory Muscle Use, Rales Capillary Refill: Delayed Pulses: Normal Radial, Normal Dorsalis Pedis, Normal Posterior Tibialis Skin: Warm, Dry - Invasive Reassessment (complete 2 of 4) Was a Central Venous Pressure Measurement obtained within 6 Hours after the presentation of septic shock: No Was a central venous oxygen measurement obtained within 6 hours after the presentation of septic shock: No Was a bedside cardiovascular ultrasound performed within 6 hours after the presentation of septic shock: No <Juan Mcknight - Last Filed: 06/24/18 19:14> Sepsis Progress Note - Reassessment Type Time of Evaluation: 06:00 - Non Invasive Reassessment Vital Sign (Latest): Temp Pulse Resp BP Pulse Ox 101.1 F H 127 H 37 H 69/66 L 91 L 06/24/18 05:44 06/24/18 07:00 06/24/18 08:24 06/24/18 12:49 06/24/18 05:10
[2018-06-24] MEDS ORDERED: MethylPREDNISolone 40 mg Vial IVP SCH (08:30)
--- NOTE | 2018-06-24 09:05 | CON ---
DATE OF CONSULTATION: 06/24/2018: REASON FOR PULMONARY CONSULTATION: Pneumonia. REFERRING PHYSICIAN FOR THIS PULMONARY CONSULTATION: Dr. Nicholson. SOURCE OF HISTORY: History is obtained via extensive discussion with the ICU nurse. I have also reviewed the chart at length. The patient is not an adequate historian at this point in time. HISTORY OF PRESENT ILLNESS: The patient is a chronically ill 77-year-old male, alf resident, with past medical history significant for advanced Alzheimer's dementia, congestive heart failure, extensive coronary artery disease, hypertension, chronic obstructive pulmonary disease, recurrent pneumonias (probable aspiration), who presents to [facility] - transferred from the alf - with a 1-day history of increasing shortness of breath, cough, and fever. There is no history of significant sputum production. There is no history of chest pain, coughing up of blood, or chest pain - made worse with deep respirations. As above, the patient did present with fevers. No history of chills or infectious exposure. No history of night sweats, weight loss, or appetite change prior to the above events. No history of calf pains. No history of syncope or diaphoresis. No history of recent travel or trauma. REVIEW OF SYSTEMS: No history of nausea, vomiting or diarrhea. No acute urinary symptoms. No new neurologic complaints. Rest of the review of systems is negative. ALLERGIES: TO CEFTRIAXONE. SOCIAL HISTORY: Positive for former tobacco usage. No alcohol. FAMILY HISTORY: No inheritable diseases. MEDICATIONS: Home medications include Bactrim, omeprazole, Singulair, Synthroid, Diflucan, Aricept, Plavix, Lipitor, carbidopa, aspirin, DuoNebs, acetaminophen. PHYSICAL EXAMINATION: GENERAL: The patient is moderately short of breath at this point in time. He is using accessory muscles for breathing. VITAL SIGNS: Temperature is 101.1, pulse is 100, respiratory rate 28/30, blood pressure 83/50. Oxygen saturation on a non-rebreather mask - 86%. HEENT: Normocephalic, atraumatic. No JVD. CARDIOVASCULAR: Positive S1, S2. No S3 gallop. LUNGS: Crackles at both bases. Significant bilateral rhonchi. No wheezing. EXTREMITIES: Mild edema. No cyanosis, no clubbing. Calves are nontender to palpation. GASTROINTESTINAL: Abdomen is soft, nontender and nondistended. Bowel sounds are positive. SKIN: No acute rash. NEUROLOGIC: Exam is limited at the present time. PERTINENT LABORATORY DATA: Chest x-ray was done and reviewed. There are extensive bilateral lower lobe infiltrates noted. There is also underlying pulmonary edema. CBC: White count 4.3K, hemoglobin 13, hematocrit 39.7, platelets are 146,000. Complete metabolic profile: BUN 43, glucose 262, bilirubin 1.5, troponin 0.26. Rest of the metabolic profile is within normal limits. IMPRESSION: 1. Respiratory failure. 2. Bilateral pneumonia. 3. Sepsis with shock. 4. Pulmonary edema. 5. Positive troponin - rule out myocardial infarction. 6. Chronic obstructive pulmonary disease. PLAN: Again, I did discuss the case with the night nurse at length. I have also reviewed the chart at length. The patient is not an adequate historian. The patient is a chronically ill 77-year-old male, transferred from the alf to [facility] - with a 1-day history of shortness of breath, cough, and fever. I did review the chest x-ray as above. Findings are noted. Official results are pending. There is no arterial blood gas in the computer. However, the oxygen saturation on a 100% non-rebreather mask is 86%. Given the critical nature of the patient at this point in time, along with severe oxygen desaturation, we will proceed with intubation. A repeat chest x-ray and arterial blood gas will be ordered. On physical exam, there is [id number] bronchospasm noted. I will continue with the DuoNeb treatments and add inhaled Pulmicort. Infectious Disease evaluation with Dr. Goode has been ordered. The patient has been placed on antibiotic therapy. I would also consider a Cardiology evaluation - given the positive troponin. Additional labs for this morning are pending. The patient appears critically ill at this point in time with very guarded/poor prognosis. I will discuss the above with the entire ICU team in the next few moments. I will discuss the above with Dr. Nicholson later this morning. Thank you very much for this pulmonary consultation. Medardo Whittaker MD [facility] # [id number] [place]
[2018-06-24 09:10] LABS: ARTERIAL BLOOD GAS HCO3 14.1 mmol/L (21-28); ARTERIAL BLOOD GAS HEMOGLOBIN 10.6 g/dL (11.7-17.4); ARTERIAL BLOOD GAS O2 CAPACITY 14.8 mL/dl (16-24); ARTERIAL BLOOD GAS O2 CONTENT 14.8 ML/dl (15-23); ARTERIAL BLOOD GAS O2 SAT 99.8 % (95-98); ARTERIAL BLOOD GAS PCO2 30 mm/Hg (35-45); ARTERIAL BLOOD GAS PH 7.28 (7.35-7.45)
[2018-06-24] MEDS: Insulin Reg-MEDIUM-Coverage SC SCH ×2 (09:14→13:01)
--- NOTE | 2018-06-24 09:17 | RAD ---
Date of service: 06/24/2018 HISTORY: dyspnea, pneumonia COMPARISON: No prior. TECHNIQUE: 1 view obtained. FINDINGS: LUNGS: Bilateral lower lobe perihilar infiltrates are seen. The findings could represent CHF or pneumonia. The upper lobes are clear PLEURA: No significant pleural effusion identified, no pneumothorax apparent. CARDIOVASCULAR: No aortic atherosclerotic calcification present. Normal cardiac size. No pulmonary vascular congestion. OSSEOUS STRUCTURES: No significant abnormalities. VISUALIZED UPPER ABDOMEN: Normal. OTHER FINDINGS: None. IMPRESSION: Bilateral lower lobe perihilar infiltrates are seen. The findings could represent CHF or pneumonia. The upper lobes are clear
--- NOTE | 2018-06-24 09:22 | CARD ---
APPROVED REPORT Date of service: 06/23/2018 EKG Measurement Heart [id number] <Conclusion> Normal sinus rhythm Low voltage QRS Nonspecific ST and T wave abnormality Prolonged QT Abnormal ECG
--- NOTE | 2018-06-24 09:22 | RAD ---
Date of service: 06/24/2018 HISTORY: ET tube placement COMPARISON: No prior. TECHNIQUE: 1 view obtained. FINDINGS: LUNGS: Bilateral perihilar infiltrates. The pattern is most consistent with CHF. Endotracheal tube in satisfactory position PLEURA: No significant pleural effusion identified, no pneumothorax apparent. CARDIOVASCULAR: Aortic calcification Normal cardiac size. No pulmonary vascular congestion. OSSEOUS STRUCTURES: No significant abnormalities. VISUALIZED UPPER ABDOMEN: Normal. OTHER FINDINGS: None. IMPRESSION: Bilateral perihilar infiltrates. The pattern is most consistent with CHF. Endotracheal tube in satisfactory position
--- NOTE | 2018-06-24 09:29 | RAD ---
Date of service: 06/24/2018 PROCEDURE: Portable chest HISTORY: RIJ line placement COMPARISON: TECHNIQUE: One view FINDINGS: There is a new right internal jugular line in the SVC with no pneumothorax. The study is otherwise unchanged IMPRESSION: There is a new right internal jugular line in the SVC with no pneumothorax. The study is otherwise unchanged
--- NOTE | 2018-06-24 09:55 | RAD ---
Date of service: 06/24/2018 HISTORY: sob COMPARISON: Earlier same day TECHNIQUE: 1 view obtained. FINDINGS: LUNGS: No change in vascular congestion and perihilar infiltrates. PLEURA: No significant pleural effusion identified, no pneumothorax apparent. CARDIOVASCULAR: Aortic calcification Normal cardiac size. No pulmonary vascular congestion. OSSEOUS STRUCTURES: No significant abnormalities. VISUALIZED UPPER ABDOMEN: Normal. OTHER FINDINGS: None. IMPRESSION: No change in vascular congestion and perihilar infiltrates.
[2018-06-24 09:57] LABS: EOS % 0.2 % (1.5-5.0); HEMOGLOBIN 10.4 g/dL (14.0-18.0); LYMPH # 0.2 (1.2-3.4); LYMPH % 3.7 % (22.0-35.0); MEAN CELL VOLUME 94.6 fl (80.0-105.0); MEAN CORPUSCULAR HEMOGLOBIN 29.7 pg (25.0-35.0); MEAN CORPUSCULAR HGB CONC 31.4 g/dl (31.0-37.0); MONO # 0.2 (0.1-0.6); MONO % 4.2 % (1.0-6.0); PLATELET COUNT 105 10^3/uL (120.0-450.0); RED CELL DISTRIBUTION WIDTH 16.8 % (11.5-14.5); WHITE BLOOD COUNT 4.1 10^3/uL (4.5-11.0)
[2018-06-24] MEDS ORDERED: Enoxaparin 40 mg Syringe SC SCH (10:00)
[2018-06-24] MEDS ORDERED: Vancomycin 1gm in NS 250ml 1 GM/250 ML BAG IVPB SCH ×2 (10:00→13:15)
[2018-06-24] MEDS: Dexmedetomidine 400mcg/100mL 400 MCG/100 ML BOTTLE IV PRN ×2 (10:00→20:14)
[2018-06-24 10:06] LABS: ALB/GLOB RATIO 1.4 (1.1-1.8); ALBUMIN 2.6 g/dL (3.0-4.8); ALT/SGPT 16 U/L (7-56); AST/SGOT 32 U/L (17-59); BLOOD UREA NITROGEN 37 mg/dL (7-21); CALCIUM 8.5 mg/dL (8.4-10.5); GFR NON-AFRICAN AMERICAN > 60
[2018-06-24] MEDS: NOREPINEPHRINE BIT/0.9 % NACL 4 MG/250 ML BAG IV PRN ×3 (10:20→22:21)
[2018-06-24 10:21] LABS: TROPONIN I 2.67 ng/mL
[2018-06-24] MEDS ORDERED: Magnesium Sulfate 2 gm/50 ml 2 GM/50 ML BAG IVPB ONE (10:29)
--- NOTE | 2018-06-24 10:41 | CP.CCUPN ---
<Huseyin Aguilar - Last Filed: 06/24/18 12:51> CCU Subjective - Physician Review Events Since Last Encounter (Free Text): 06/24/18 10:39 pt admitted to the ICU, pt was intubated, a central line was placed, started on pressers Subjective (Free Text): 06/24/18 10:41 pt seen and examined, pt intubated, sedated CCU Objective - Vital Signs / Intake & Output Vital Signs (Last 4 hours): Vital Signs Pulse Resp BP 06/24/18 08:24 37 H 06/24/18 07:00 127 H 78/47 L Intake and Output (Last 8hrs): Intake & Output 06/23/18 06/24/18 06/24/18 22:59 06:59 14:59 Intake Total 1312 Output Total 30 Balance 1282 Weight 135 lb 135 lb Intake: IV 1312 Right Forearm 1200 Oral 0 Output: Urine 30 Urethral (Tong) 30 Stool 0 Urine/Stool Mix 0 Other: Voiding Method Indwelling Catheter # Voids Urethral (Tong) 2 # Bowel Movements 0 - Physical Exam Physical Exam Limitations: Negative for: Altered Mental Status Head: Positive for: Atraumatic, Normocephalic Pupils: Positive for: PERRL Extroacular Muscles: Positive for: EOMI Mouth: Positive for: Moist Mucous Membranes Neck: Positive for: Normal Range of Motion Respiratory/Chest: Positive for: Clear to Auscultation, Good Air Exchange, Other (intubated). Negative for: Respiratory Distress Cardiovascular: Positive for: Regular Rate and Rhythm, Normal S1, S2, Peripheal Pulses Present, Tachycardic, Other (hypotensive). Negative for: Murmurs Abdomen: Positive for: Normal Bowel Sounds. Negative for: Tenderness, Distention Upper Extremity: Positive for: Normal Inspection Lower Extremity: Positive for: Normal Inspection Skin: Positive for: Warm, Dry, Normal Color Psychiatric: Positive for: Alert, Oriented x 3 - Medications Active Medications: Active Medications Generic Name Dose Route Start Last Admin Trade Name Freq PRN Reason Stop Dose Admin Acetaminophen 650 mg 06/24/18 03:34 Tylenol 325mg Tab PO Q6H PRN Fever >100.4 F Albuterol/Ipratropium 3 ml 06/24/18 03:15 Duoneb 3 Mg/0.5 Mg (3 Ml) Ud IH Q2H PRN Shortness of Breath Albuterol/Ipratropium 3 ml 06/24/18 10:00 Duoneb 3 Mg/0.5 Mg (3 Ml) Ud IH [id number] YOLANDA Aspirin 81 mg 06/24/18 10:00 Ecotrin PO DAILY YOLANDA Budesonide 0.5 mg 06/24/18 08:00 06/24/18 08:08 Pulmicort Respules IH 0.5 mg [id number] YOLANDA Administration Clopidogrel Bisulfate 75 mg 06/24/18 10:00 06/24/18 09:25 Plavix PO 75 mg DAILY YOLANDA Administration Dextrose 0 ml 06/24/18 03:19 Dextrose 50% Inj IV STAT PRN Hypoglycemia Protocol Protocol Enoxaparin Sodium 40 mg 06/24/18 10:00 06/24/18 09:24 Lovenox SC 40 mg DAILY YOLANDA Administration Protocol Dextrose 1,000 mls @ 0 mls/hr 06/24/18 03:19 Dextrose 5% In Water 1000 Ml IV .Q0M PRN Hypoglycemia Protocol Protocol Per Protocol Acetaminophen 1,000 mg in 100 mls @ 400 mls/hr 06/24/18 03:44 Ofirmev IVPB 06/26/18 03:45 Q6H PRN Temperature Phenylephrine HCl 40 mg/ 254 mls @ 38.1 mls/hr 06/24/18 07:54 06/24/18 10:17 Sodium Chloride IV 270 mcg/min .[id number] PRN 102.87 mls/hr TITRATE PER MD ORDER Titration Protocol 100 MCG/MIN Aztreonam 100 mls @ 100 mls/hr 06/24/18 14:00 Azactam 2 Gm IVPB 06/24/18 22:59 Q8 YOLANDA Protocol Vancomycin HCl 1 gm in 250 mls @ 167 mls/hr 06/24/18 10:00 06/24/18 09:23 Vancomycin 1gm IVPB 167 mls/hr DAILY YOLANDA Administration Protocol Dexmedetomidine HCl 400 mcg in 100 mls @ 3.062 mls/hr 06/24/18 09:28 06/24/18 10:16 Precedex 400mcg/100ml IV 0.4 mcg/kg/hr .Q24H PRN 6.124 mls/hr Sedation Titration Protocol 0.2 MCG/KG/HR NOREPINEPHRINE BIT/0.9 % NACL 4 mg in 250 mls @ 15 mls/hr 06/24/18 09:37 06/24/18 10:20 Levophed 4 Mg/ 250 Ml Ns Premixed IV 4 mcg/min .[id number] PRN 15 mls/hr TITRATE PER MD ORDER Administration Protocol 4 MCG/MIN Magnesium Sulfate 2 gm in 50 mls @ 50 mls/hr 06/24/18 10:29 Magnesium Sulfate 2 Gm/50 Ml Water IVPB 06/24/18 11:28 ONCE ONE Insulin Human Regular 0 units 06/24/18 07:30 06/24/18 09:14 Humulin R Med SC Not Given ACHS [facility] Protocol Methylprednisolone 40 mg 06/24/18 08:30 06/24/18 09:23 Solu-Medrol IVP 40 mg Q8 YOLANDA Administration Nystatin 0 gm 06/24/18 04:02 Nystop Topical Powder TOP Q6H YOLANDA Pantoprazole Sodium 40 mg 06/24/18 10:00 06/24/18 09:23 Protonix Inj IVP 40 mg DAILY YOLANDA Administration - Patient Studies Lab Studies: Lab Studies 06/24/18 06/24/18 06/24/18 Range/Units 09:30 09:30 09:07 WBC 4.1 L (4.5-11.0) 10^3/uL RBC 3.50 (3.5-6.1) 10^6/uL Hgb 10.4 L D (14.0-18.0) g/dL Hct 33.1 L (42.0-52.0) % MCV 94.6 (80.0-105.0) fl MCH 29.7 (25.0-35.0) pg MCHC 31.4 (31.0-37.0) g/dl RDW 16.8 H (11.5-14.5) % Plt Count 105 L (120.0-450.0) 10^3/uL MPV 10.0 (7.0-11.0) fl Neut % (Auto) 91.9 H (50.0-68.0) % Lymph % (Auto) 3.7 L (22.0-35.0) % [place] % (Auto) 4.2 (1.0-6.0) % Eos % (Auto) 0.2 L (1.5-5.0) % Baso % (Auto) 0.0 (0.0-3.0) % Lymph # (Auto) 0.2 L (1.2-3.4) [place] # (Auto) 0.2 (0.1-0.6) Eos # (Auto) 0.0 (0.0-0.7) Baso # (Auto) 0.00 (0.0-2.0) K/mm3 Absolute Neuts (auto) 3.75 (1.4-6.5) pCO2 30 L (35-45) mm/Hg pO2 168.0 H (30-55) mm/Hg HCO3 14.1 L (21-28) mmol/L ABG pH 7.28 L (7.35-7.45) ABG Total CO2 15.0 L (22-28) mmol.L ABG O2 Saturation 99.8 H (95-98) % ABG O2 Content 14.8 L (15-23) ML/dl ABG Base Excess -11.4 L (-2.0-3.0) mmol/L ABG Hemoglobin 10.6 L (11.7-17.4) g/dL ABG Carboxyhemoglobin 2.1 H (0.5-1.5) % POC ABG HHb (Measured) 0.2 (0-5) % ABG Methemoglobin 1.1 (0.0-3.0) % ABG O2 Capacity 14.8 L (16-24) mL/dl VBG pH (7.32-7.43) VBG pCO2 (40-60) VBG HCO3 (21-28) mmol/l VBG Total CO2 (22-28) mmol.L VBG O2 Sat (Calc) (40-65) % VBG Base Excess (0.0-2.0) mmol/L VBG Potassium (3.6-5.2) mmol/L Hgb O2 Saturation 96.6 (95.0-98.0) % Glucose (75-110) mg/dl Lactate (0.7-2.1) mmol/L FiO2 100.0 % Crit Value Called To Crit Value Called By Blood Gas Notified Time Sodium 140 (132-148) mmol/L Potassium 3.7 (3.6-5.0) mmol/L Chloride 113 H (98-107) mmol/L Carbon Dioxide 18 L (21-33) mmol/L Anion Gap 13 (10-20) BUN 37 H (7-21) mg/dL Creatinine 1.0 (0.8-1.5) mg/dl Est GFR ( Amer) > 60 Est GFR (Non-Af Amer) > 60 POC Glucose (mg/dL) (65-110) mg/dL Random Glucose 113 H (70-110) mg/dL Calcium 8.5 (8.4-10.5) mg/dL Phosphorus (2.5-4.5) mg/dL Magnesium 1.5 L (1.7-2.2) mg/dL Total Bilirubin 1.2 (0.2-1.3) mg/dL AST 32 (17-59) U/L ALT 16 (7-56) U/L Alkaline Phosphatase 55 (38-126) U/L Lactate Dehydrogenase 412 (333-699) U/L Total Creatine Kinase 169 (35-230) U/L Troponin I 2.67 H* D ng/mL NT-Pro-B Natriuret Pep (0-450) pg/mL Total Protein 4.5 L (5.8-8.3) g/dL Albumin 2.6 L (3.0-4.8) g/dL Globulin 1.9 gm/dL Albumin/Globulin Ratio 1.4 (1.1-1.8) Venous Blood Potassium (3.6-5.2) mmol/L Urine Color (YELLOW) Urine Appearance (CLEAR) Urine pH (4.7-8.0) Ur Specific [place] (1.005-1.035) Urine Protein (<30 mg/dL) mg/dL Urine Glucose (UA) (NEGATIVE) mg/dL Urine Ketones (NEGATIVE) mg/dL Urine Blood (NEGATIVE) Urine Nitrate (NEGATIVE) Urine Bilirubin (NEGATIVE) Urine Urobilinogen (<1 E.U./dL) E.U./dL Ur Leukocyte Esterase (NEGATIVE) Lizzeth/uL Urine RBC (0-2) /hpf Urine WBC (0-6) /hpf Ur Epithelial Cells (0-5) /hpf Urine Bacteria (NONE) /hpf 06/24/18 06/24/18 06/24/18 Range/Units 08:19 07:00 07:00 WBC (4.5-11.0) 10^3/uL RBC (3.5-6.1) 10^6/uL Hgb (14.0-18.0) g/dL Hct (42.0-52.0) % MCV (80.0-105.0) fl MCH (25.0-35.0) pg MCHC (31.0-37.0) g/dl RDW (11.5-14.5) % Plt Count (120.0-450.0) 10^3/uL MPV (7.0-11.0) fl Neut % (Auto) (50.0-68.0) % Lymph % (Auto) (22.0-35.0) % [place] % (Auto) (1.0-6.0) % Eos % (Auto) (1.5-5.0) % Baso % (Auto) (0.0-3.0) % Lymph # (Auto) (1.2-3.4) [place] # (Auto) (0.1-0.6) Eos # (Auto) (0.0-0.7) Baso # (Auto) (0.0-2.0) K/mm3 Absolute Neuts (auto) (1.4-6.5) pCO2 (35-45) mm/Hg pO2 40 (30-55) mm/Hg HCO3 (21-28) mmol/L ABG pH (7.35-7.45) ABG Total CO2 (22-28) mmol.L ABG O2 Saturation (95-98) % ABG O2 Content (15-23) ML/dl ABG Base Excess (-2.0-3.0) mmol/L ABG Hemoglobin (11.7-17.4) g/dL ABG Carboxyhemoglobin (0.5-1.5) % POC ABG HHb (Measured) (0-5) % ABG Methemoglobin (0.0-3.0) % ABG O2 Capacity (16-24) mL/dl VBG pH 7.18 L* (7.32-7.43) VBG pCO2 48.0 (40-60) VBG HCO3 17.9 L (21-28) mmol/l VBG Total CO2 19.4 L (22-28) mmol.L VBG O2 Sat (Calc) 67.5 H (40-65) % VBG Base Excess -10.4 L (0.0-2.0) mmol/L VBG Potassium 3.5 L (3.6-5.2) mmol/L Hgb O2 Saturation (95.0-98.0) % Glucose 125 H (75-110) mg/dl Lactate 4.5 H* (0.7-2.1) mmol/L FiO2 21.0 % Crit Value Called To Praful empirial Crit Value Called By Es Blood Gas Notified Time 741 Sodium 142.0 (132-148) mmol/L Potassium (3.6-5.0) mmol/L Chloride 111.0 H (98-107) mmol/L Carbon Dioxide (21-33) mmol/L Anion Gap (10-20) BUN (7-21) mg/dL Creatinine (0.8-1.5) mg/dl Est GFR ( Amer) Est GFR (Non-Af Amer) POC Glucose (mg/dL) 103 (65-110) mg/dL Random Glucose (70-110) mg/dL Calcium (8.4-10.5) mg/dL Phosphorus (2.5-4.5) mg/dL Magnesium (1.7-2.2) mg/dL Total Bilirubin (0.2-1.3) mg/dL AST (17-59) U/L ALT (7-56) U/L Alkaline Phosphatase (38-126) U/L Lactate Dehydrogenase (333-699) U/L Total Creatine Kinase (35-230) U/L Troponin I ng/mL NT-Pro-B Natriuret Pep 4220 H (0-450) pg/mL Total Protein (5.8-8.3) g/dL Albumin (3.0-4.8) g/dL Globulin gm/dL Albumin/Globulin Ratio (1.1-1.8) Venous Blood Potassium 3.5 L (3.6-5.2) mmol/L Urine Color (YELLOW) Urine Appearance (CLEAR) Urine pH (4.7-8.0) Ur Specific [place] (1.005-1.035) Urine Protein (<30 mg/dL) mg/dL Urine Glucose (UA) (NEGATIVE) mg/dL Urine Ketones (NEGATIVE) mg/dL Urine Blood (NEGATIVE) Urine Nitrate (NEGATIVE) Urine Bilirubin (NEGATIVE) Urine Urobilinogen (<1 E.U./dL) E.U./dL Ur Leukocyte Esterase (NEGATIVE) Lizzeth/uL Urine RBC (0-2) /hpf Urine WBC (0-6) /hpf Ur Epithelial Cells (0-5) /hpf Urine Bacteria (NONE) /hpf 06/24/18 06/24/18 06/24/18 Range/Units 03:38 03:37 03:10 WBC (4.5-11.0) 10^3/uL RBC (3.5-6.1) 10^6/uL Hgb (14.0-18.0) g/dL Hct (42.0-52.0) % MCV (80.0-105.0) fl MCH (25.0-35.0) pg MCHC (31.0-37.0) g/dl RDW (11.5-14.5) % Plt Count (120.0-450.0) 10^3/uL MPV (7.0-11.0) fl Neut % (Auto) (50.0-68.0) % Lymph % (Auto) (22.0-35.0) % [place] % (Auto) (1.0-6.0) % Eos % (Auto) (1.5-5.0) % Baso % (Auto) (0.0-3.0) % Lymph # (Auto) (1.2-3.4) [place] # (Auto) (0.1-0.6) Eos # (Auto) (0.0-0.7) Baso # (Auto) (0.0-2.0) K/mm3 Absolute Neuts (auto) (1.4-6.5) pCO2 (35-45) mm/Hg pO2 21 L (30-55) mm/Hg HCO3 (21-28) mmol/L ABG pH (7.35-7.45) ABG Total CO2 (22-28) mmol.L ABG O2 Saturation (95-98) % ABG O2 Content (15-23) ML/dl ABG Base Excess (-2.0-3.0) mmol/L ABG Hemoglobin (11.7-17.4) g/dL ABG Carboxyhemoglobin (0.5-1.5) % POC ABG HHb (Measured) (0-5) % ABG Methemoglobin (0.0-3.0) % ABG O2 Capacity (16-24) mL/dl VBG pH 7.28 L (7.32-7.43) VBG pCO2 43.0 (40-60) VBG HCO3 20.2 L (21-28) mmol/l VBG Total CO2 21.5 L (22-28) mmol.L VBG O2 Sat (Calc) 22.8 L (40-65) % VBG Base Excess -6.4 L (0.0-2.0) mmol/L VBG Potassium 5.0 (3.6-5.2) mmol/L Hgb O2 Saturation (95.0-98.0) % Glucose 194 H (75-110) mg/dl Lactate 5.1 H* (0.7-2.1) mmol/L FiO2 21.0 % Crit Value Called To Rn Crit Value Called By Rs Blood Gas Notified Time 322 Sodium 138.0 (132-148) mmol/L Potassium (3.6-5.0) mmol/L Chloride 109.0 H (98-107) mmol/L Carbon Dioxide (21-33) mmol/L Anion Gap (10-20) BUN (7-21) mg/dL Creatinine (0.8-1.5) mg/dl Est GFR ( Amer) Est GFR (Non-Af Amer) POC Glucose (mg/dL) 160 H (65-110) mg/dL Random Glucose (70-110) mg/dL Calcium (8.4-10.5) mg/dL Phosphorus (2.5-4.5) mg/dL Magnesium (1.7-2.2) mg/dL Total Bilirubin (0.2-1.3) mg/dL AST (17-59) U/L ALT (7-56) U/L Alkaline Phosphatase (38-126) U/L Lactate Dehydrogenase 397 (333-699) U/L Total Creatine Kinase 39 (35-230) U/L Troponin I 0.26 H* D ng/mL NT-Pro-B Natriuret Pep (0-450) pg/mL Total Protein (5.8-8.3) g/dL Albumin (3.0-4.8) g/dL Globulin gm/dL Albumin/Globulin Ratio (1.1-1.8) Venous Blood Potassium 5.0 (3.6-5.2) mmol/L Urine Color (YELLOW) Urine Appearance (CLEAR) Urine pH (4.7-8.0) Ur Specific [place] (1.005-1.035) Urine Protein (<30 mg/dL) mg/dL Urine Glucose (UA) (NEGATIVE) mg/dL Urine Ketones (NEGATIVE) mg/dL Urine Blood (NEGATIVE) Urine Nitrate (NEGATIVE) Urine Bilirubin (NEGATIVE) Urine Urobilinogen (<1 E.U./dL) E.U./dL Ur Leukocyte Esterase (NEGATIVE) Lizzeth/uL Urine RBC (0-2) /hpf Urine WBC (0-6) /hpf Ur Epithelial Cells (0-5) /hpf Urine Bacteria (NONE) /hpf 06/24/18 06/24/18 06/23/18 Range/Units 00:05 00:00 23:50 WBC (4.5-11.0) 10^3/uL RBC (3.5-6.1) 10^6/uL Hgb (14.0-18.0) g/dL Hct (42.0-52.0) % MCV (80.0-105.0) fl MCH (25.0-35.0) pg MCHC (31.0-37.0) g/dl RDW (11.5-14.5) % Plt Count (120.0-450.0) 10^3/uL MPV (7.0-11.0) fl Neut % (Auto) (50.0-68.0) % Lymph % (Auto) (22.0-35.0) % [place] % (Auto) (1.0-6.0) % Eos % (Auto) (1.5-5.0) % Baso % (Auto) (0.0-3.0) % Lymph # (Auto) (1.2-3.4) [place] # (Auto) (0.1-0.6) Eos # (Auto) (0.0-0.7) Baso # (Auto) (0.0-2.0) K/mm3 Absolute Neuts (auto) (1.4-6.5) pCO2 (35-45) mm/Hg pO2 50 (30-55) mm/Hg HCO3 (21-28) mmol/L ABG pH (7.35-7.45) ABG Total CO2 (22-28) mmol.L ABG O2 Saturation (95-98) % ABG O2 Content (15-23) ML/dl ABG Base Excess (-2.0-3.0) mmol/L ABG Hemoglobin (11.7-17.4) g/dL ABG Carboxyhemoglobin (0.5-1.5) % POC ABG HHb (Measured) (0-5) % ABG Methemoglobin (0.0-3.0) % ABG O2 Capacity (16-24) mL/dl VBG pH 7.38 (7.32-7.43) VBG pCO2 36.0 L (40-60) VBG HCO3 21.3 (21-28) mmol/l VBG Total CO2 22.4 (22-28) mmol.L VBG O2 Sat (Calc) 82.2 H (40-65) % VBG Base Excess -3.3 L (0.0-2.0) mmol/L VBG Potassium 4.5 (3.6-5.2) mmol/L Hgb O2 Saturation (95.0-98.0) % Glucose 275 H (75-110) mg/dl Lactate 4.3 H* (0.7-2.1) mmol/L FiO2 21.0 % Crit Value Called To Rn Crit Value Called By Rs Blood Gas Notified Time 9 Sodium 134.0 137 (132-148) mmol/L Potassium 4.9 (3.6-5.0) mmol/L Chloride 100.0 101 (98-107) mmol/L Carbon Dioxide 22 (21-33) mmol/L Anion Gap 19 (10-20) BUN 43 H (7-21) mg/dL Creatinine 1.0 (0.8-1.5) mg/dl Est GFR ( Amer) > 60 Est GFR (Non-Af Amer) > 60 POC Glucose (mg/dL) (65-110) mg/dL Random Glucose 262 H (70-110) mg/dL Calcium 10.4 (8.4-10.5) mg/dL Phosphorus 3.8 (2.5-4.5) mg/dL Magnesium 1.9 (1.7-2.2) mg/dL Total Bilirubin 1.5 H (0.2-1.3) mg/dL AST 31 (17-59) U/L ALT 12 (7-56) U/L Alkaline Phosphatase 80 (38-126) U/L Lactate Dehydrogenase (333-699) U/L Total Creatine Kinase (35-230) U/L Troponin I ng/mL NT-Pro-B Natriuret Pep (0-450) pg/mL Total Protein 6.6 (5.8-8.3) g/dL Albumin 3.8 (3.0-4.8) g/dL Globulin 2.8 gm/dL Albumin/Globulin Ratio 1.3 (1.1-1.8) Venous Blood Potassium 4.5 (3.6-5.2) mmol/L Urine Color Dark yellow (YELLOW) Urine Appearance Sl cloudy (CLEAR) Urine pH 6.0 (4.7-8.0) Ur Specific [place] >= 1.030 (1.005-1.035) Urine Protein 30 H (<30 mg/dL) mg/dL Urine Glucose (UA) 500 H (NEGATIVE) mg/dL Urine Ketones Trace H (NEGATIVE) mg/dL Urine Blood Large H (NEGATIVE) Urine Nitrate Negative (NEGATIVE) Urine Bilirubin Small H (NEGATIVE) Urine Urobilinogen 0.2 (<1 E.U./dL) E.U./dL Ur Leukocyte Esterase Moderate H (NEGATIVE) Lizzeth/uL Urine RBC 2 - 5 H (0-2) /hpf Urine WBC 10 - 15 H (0-6) /hpf Ur Epithelial Cells 0 - 2 (0-5) /hpf Urine Bacteria Small (NONE) /hpf 06/23/18 Range/Units 23:50 WBC 4.3 L D (4.5-11.0) 10^3/uL RBC 4.32 (3.5-6.1) 10^6/uL Hgb 13.0 L D (14.0-18.0) g/dL Hct 39.7 L (42.0-52.0) % MCV 91.9 (80.0-105.0) fl MCH 30.1 (25.0-35.0) pg MCHC 32.7 (31.0-37.0) g/dl RDW 16.8 H (11.5-14.5) % Plt Count 146 (120.0-450.0) 10^3/uL MPV 9.9 (7.0-11.0) fl Neut % (Auto) 84.1 H (50.0-68.0) % Lymph % (Auto) 8.5 L (22.0-35.0) % [place] % (Auto) 7.2 H (1.0-6.0) % Eos % (Auto) 0.0 L (1.5-5.0) % Baso % (Auto) 0.2 (0.0-3.0) % Lymph # (Auto) 0.4 L (1.2-3.4) [place] # (Auto) 0.3 (0.1-0.6) Eos # (Auto) 0.0 (0.0-0.7) Baso # (Auto) 0.01 (0.0-2.0) K/mm3 Absolute Neuts (auto) 3.64 (1.4-6.5) pCO2 (35-45) mm/Hg pO2 (30-55) mm/Hg HCO3 (21-28) mmol/L ABG pH (7.35-7.45) ABG Total CO2 (22-28) mmol.L ABG O2 Saturation (95-98) % ABG O2 Content (15-23) ML/dl ABG Base Excess (-2.0-3.0) mmol/L ABG Hemoglobin (11.7-17.4) g/dL ABG Carboxyhemoglobin (0.5-1.5) % POC ABG HHb (Measured) (0-5) % ABG Methemoglobin (0.0-3.0) % ABG O2 Capacity (16-24) mL/dl VBG pH (7.32-7.43) VBG pCO2 (40-60) VBG HCO3 (21-28) mmol/l VBG Total CO2 (22-28) mmol.L VBG O2 Sat (Calc) (40-65) % VBG Base Excess (0.0-2.0) mmol/L VBG Potassium (3.6-5.2) mmol/L Hgb O2 Saturation (95.0-98.0) % Glucose (75-110) mg/dl Lactate (0.7-2.1) mmol/L FiO2 % Crit Value Called To Crit Value Called By Blood Gas Notified Time Sodium (132-148) mmol/L Potassium (3.6-5.0) mmol/L Chloride (98-107) mmol/L Carbon Dioxide (21-33) mmol/L Anion Gap (10-20) BUN (7-21) mg/dL Creatinine (0.8-1.5) mg/dl Est GFR ( Amer) Est GFR (Non-Af Amer) POC Glucose (mg/dL) (65-110) mg/dL Random Glucose (70-110) mg/dL Calcium (8.4-10.5) mg/dL Phosphorus (2.5-4.5) mg/dL Magnesium (1.7-2.2) mg/dL Total Bilirubin (0.2-1.3) mg/dL AST (17-59) U/L ALT (7-56) U/L Alkaline Phosphatase (38-126) U/L Lactate Dehydrogenase (333-699) U/L Total Creatine Kinase (35-230) U/L Troponin I ng/mL NT-Pro-B Natriuret Pep (0-450) pg/mL Total Protein (5.8-8.3) g/dL Albumin (3.0-4.8) g/dL Globulin gm/dL Albumin/Globulin Ratio (1.1-1.8) Venous Blood Potassium (3.6-5.2) mmol/L Urine Color (YELLOW) Urine Appearance (CLEAR) Urine pH (4.7-8.0) Ur Specific [place] (1.005-1.035) Urine Protein (<30 mg/dL) mg/dL Urine Glucose (UA) (NEGATIVE) mg/dL Urine Ketones (NEGATIVE) mg/dL Urine Blood (NEGATIVE) Urine Nitrate (NEGATIVE) Urine Bilirubin (NEGATIVE) Urine Urobilinogen (<1 E.U./dL) E.U./dL Ur Leukocyte Esterase (NEGATIVE) Lizzeth/uL Urine RBC (0-2) /hpf Urine WBC (0-6) /hpf Ur Epithelial Cells (0-5) /hpf Urine Bacteria (NONE) /hpf Laboratory Results - last 24 hr 06/23/18 06/23/18 06/24/18 23:50 23:50 00:00 WBC 4.3 L D RBC 4.32 Hgb 13.0 L D Hct 39.7 L MCV 91.9 MCH 30.1 MCHC 32.7 RDW 16.8 H Plt Count 146 MPV 9.9 Neut % (Auto) 84.1 H Lymph % (Auto) 8.5 L [place] % (Auto) 7.2 H Eos % (Auto) 0.0 L Baso % (Auto) 0.2 Lymph # (Auto) 0.4 L [place] # (Auto) 0.3 Eos # (Auto) 0.0 Baso # (Auto) 0.01 Absolute Neuts (auto) 3.64 pCO2 pO2 50 HCO3 ABG pH ABG Total CO2 ABG O2 Saturation ABG O2 Content ABG Base Excess ABG Hemoglobin ABG Carboxyhemoglobin POC ABG HHb (Measured) ABG Methemoglobin ABG O2 Capacity VBG pH 7.38 VBG pCO2 36.0 L VBG HCO3 21.3 VBG Total CO2 22.4 VBG O2 Sat (Calc) 82.2 H VBG Base Excess -3.3 L VBG Potassium 4.5 Hgb O2 Saturation Glucose 275 H Lactate 4.3 H* FiO2 21.0 Crit Value Called To Rn Crit Value Called By Rs Blood Gas Notified Time 9 Sodium 137 134.0 Potassium 4.9 Chloride 101 100.0 Carbon Dioxide 22 Anion Gap 19 BUN 43 H Creatinine 1.0 Est GFR ( Amer) > 60 Est GFR (Non-Af Amer) > 60 POC Glucose (mg/dL) Random Glucose 262 H Calcium 10.4 Phosphorus 3.8 Magnesium 1.9 Total Bilirubin 1.5 H AST 31 ALT 12 Alkaline Phosphatase 80 Lactate Dehydrogenase Total Creatine Kinase Troponin I NT-Pro-B Natriuret Pep Total Protein 6.6 Albumin 3.8 Globulin 2.8 Albumin/Globulin Ratio 1.3 Venous Blood Potassium 4.5 Urine Color Urine Appearance Urine pH Ur Specific [place] Urine Protein Urine Glucose (UA) Urine Ketones Urine Blood Urine Nitrate Urine Bilirubin Urine Urobilinogen Ur Leukocyte Esterase Urine RBC Urine WBC Ur Epithelial Cells Urine Bacteria 06/24/18 06/24/18 06/24/18 00:05 03:10 03:37 WBC RBC Hgb Hct MCV MCH MCHC RDW Plt Count MPV Neut % (Auto) Lymph % (Auto) [place] % (Auto) Eos % (Auto) Baso % (Auto) Lymph # (Auto) [place] # (Auto) Eos # (Auto) Baso # (Auto) Absolute Neuts (auto) pCO2 pO2 21 L HCO3 ABG pH ABG Total CO2 ABG O2 Saturation ABG O2 Content ABG Base Excess ABG Hemoglobin ABG Carboxyhemoglobin POC ABG HHb (Measured) ABG Methemoglobin ABG O2 Capacity VBG pH 7.28 L VBG pCO2 43.0 VBG HCO3 20.2 L VBG Total CO2 21.5 L VBG O2 Sat (Calc) 22.8 L VBG Base Excess -6.4 L VBG Potassium 5.0 Hgb O2 Saturation Glucose 194 H Lactate 5.1 H* FiO2 21.0 Crit Value Called To Rn Crit Value Called By Rs Blood Gas Notified Time 322 Sodium 138.0 Potassium Chloride 109.0 H Carbon Dioxide Anion Gap BUN Creatinine Est GFR ( Amer) Est GFR (Non-Af Amer) POC Glucose (mg/dL) 160 H Random Glucose Calcium Phosphorus Magnesium Total Bilirubin AST ALT Alkaline Phosphatase Lactate Dehydrogenase Total Creatine Kinase Troponin I NT-Pro-B Natriuret Pep Total Protein Albumin Globulin Albumin/Globulin Ratio Venous Blood Potassium 5.0 Urine Color Dark yellow Urine Appearance Sl cloudy Urine pH 6.0 Ur Specific [place] >= 1.030 Urine Protein 30 H Urine Glucose (UA) 500 H Urine Ketones Trace H Urine Blood Large H Urine Nitrate Negative Urine Bilirubin Small H Urine Urobilinogen 0.2 Ur Leukocyte Esterase Moderate H Urine RBC 2 - 5 H Urine WBC 10 - 15 H Ur Epithelial Cells 0 - 2 Urine Bacteria Small 06/24/18 06/24/18 06/24/18 03:38 07:00 07:00 WBC RBC Hgb Hct MCV MCH MCHC RDW Plt Count MPV Neut % (Auto) Lymph % (Auto) [place] % (Auto) Eos % (Auto) Baso % (Auto) Lymph # (Auto) [place] # (Auto) Eos # (Auto) Baso # (Auto) Absolute Neuts (auto) pCO2 pO2 40 HCO3 ABG pH ABG Total CO2 ABG O2 Saturation ABG O2 Content ABG Base Excess ABG Hemoglobin ABG Carboxyhemoglobin POC ABG HHb (Measured) ABG Methemoglobin ABG O2 Capacity VBG pH 7.18 L* VBG pCO2 48.0 VBG HCO3 17.9 L VBG Total CO2 19.4 L VBG O2 Sat (Calc) 67.5 H VBG Base Excess -10.4 L VBG Potassium 3.5 L Hgb O2 Saturation Glucose 125 H Lactate 4.5 H* FiO2 21.0 Crit Value Called To Pra[place] empirial Crit Value Called By Es Blood Gas Notified Time 741 Sodium 142.0 Potassium Chloride 111.0 H Carbon Dioxide Anion Gap BUN Creatinine Est GFR ( Amer) Est GFR (Non-Af Amer) POC Glucose (mg/dL) Random Glucose Calcium Phosphorus Magnesium Total Bilirubin AST ALT Alkaline Phosphatase Lactate Dehydrogenase 397 Total Creatine Kinase 39 Troponin I 0.26 H* D NT-Pro-B Natriuret Pep 4220 H Total Protein Albumin Globulin Albumin/Globulin Ratio Venous Blood Potassium 3.5 L Urine Color Urine Appearance Urine pH Ur Specific [place] Urine Protein Urine Glucose (UA) Urine Ketones Urine Blood Urine Nitrate Urine Bilirubin Urine Urobilinogen Ur Leukocyte Esterase Urine RBC Urine WBC Ur Epithelial Cells Urine Bacteria 06/24/18 06/24/18 06/24/18 08:19 09:07 09:30 WBC RBC Hgb Hct MCV MCH MCHC RDW Plt Count MPV Neut % (Auto) Lymph % (Auto) [place] % (Auto) Eos % (Auto) Baso % (Auto) Lymph # (Auto) [place] # (Auto) Eos # (Auto) Baso # (Auto) Absolute Neuts (auto) pCO2 30 L pO2 168.0 H HCO3 14.1 L ABG pH 7.28 L ABG Total CO2 15.0 L ABG O2 Saturation 99.8 H ABG O2 Content 14.8 L ABG Base Excess -11.4 L ABG Hemoglobin 10.6 L ABG Carboxyhemoglobin 2.1 H POC ABG HHb (Measured) 0.2 ABG Methemoglobin 1.1 ABG O2 Capacity 14.8 L VBG pH VBG pCO2 VBG HCO3 VBG Total CO2 VBG O2 Sat (Calc) VBG Base Excess VBG Potassium Hgb O2 Saturation 96.6 Glucose Lactate FiO2 100.0 Crit Value Called To Crit Value Called By Blood Gas Notified Time Sodium 140 Potassium 3.7 Chloride 113 H Carbon Dioxide 18 L Anion Gap 13 BUN 37 H Creatinine 1.0 Est GFR ( Amer) > 60 Est GFR (Non-Af Amer) > 60 POC Glucose (mg/dL) 103 Random Glucose 113 H Calcium 8.5 Phosphorus Magnesium 1.5 L Total Bilirubin 1.2 AST 32 ALT 16 Alkaline Phosphatase 55 Lactate Dehydrogenase 412 Total Creatine Kinase 169 Troponin I 2.67 H* D NT-Pro-B Natriuret Pep Total Protein 4.5 L Albumin 2.6 L Globulin 1.9 Albumin/Globulin Ratio 1.4 Venous Blood Potassium Urine Color Urine Appearance Urine pH Ur Specific [place] Urine Protein Urine Glucose (UA) Urine Ketones Urine Blood Urine Nitrate Urine Bilirubin Urine Urobilinogen Ur Leukocyte Esterase Urine RBC Urine WBC Ur Epithelial Cells Urine Bacteria 06/24/18 09:30 WBC 4.1 L RBC 3.50 Hgb 10.4 L D Hct 33.1 L MCV 94.6 MCH 29.7 MCHC 31.4 RDW 16.8 H Plt Count 105 L MPV 10.0 Neut % (Auto) 91.9 H Lymph % (Auto) 3.7 L [place] % (Auto) 4.2 Eos % (Auto) 0.2 L Baso % (Auto) 0.0 Lymph # (Auto) 0.2 L [place] # (Auto) 0.2 Eos # (Auto) 0.0 Baso # (Auto) 0.00 Absolute Neuts (auto) 3.75 pCO2 pO2 HCO3 ABG pH ABG Total CO2 ABG O2 Saturation ABG O2 Content ABG Base Excess ABG Hemoglobin ABG Carboxyhemoglobin POC ABG HHb (Measured) ABG Methemoglobin ABG O2 Capacity VBG pH VBG pCO2 VBG HCO3 VBG Total CO2 VBG O2 Sat (Calc) VBG Base Excess VBG Potassium Hgb O2 Saturation Glucose Lactate FiO2 Crit Value Called To Crit Value Called By Blood Gas Notified Time Sodium Potassium Chloride Carbon Dioxide Anion Gap BUN Creatinine Est GFR ( Amer) Est GFR (Non-Af Amer) POC Glucose (mg/dL) Random Glucose Calcium Phosphorus Magnesium Total Bilirubin AST ALT Alkaline Phosphatase Lactate Dehydrogenase Total Creatine Kinase Troponin I NT-Pro-B Natriuret Pep Total Protein Albumin Globulin Albumin/Globulin Ratio Venous Blood Potassium Urine Color Urine Appearance Urine pH Ur Specific [place] Urine Protein Urine Glucose (UA) Urine Ketones Urine Blood Urine Nitrate Urine Bilirubin Urine Urobilinogen Ur Leukocyte Esterase Urine RBC Urine WBC Ur Epithelial Cells Urine Bacteria Radiology Impressions: Radiology Impressions Chest X-Ray 06/23/18 23:51 IMPRESSION: Bilateral lower lobe perihilar infiltrates are seen. The findings could represent CHF or pneumonia. The upper lobes are clear Chest X-Ray 06/24/18 05:00 IMPRESSION: No change in vascular congestion and perihilar infiltrates. Chest X-Ray 06/24/18 06:49 IMPRESSION: Bilateral perihilar infiltrates. The pattern is most consistent with CHF. Endotracheal tube in satisfactory position Chest X-Ray 06/24/18 08:04 IMPRESSION: There is a new right internal jugular line in the SVC with no pneumothorax. The study is otherwise unchanged EKG/Cardiology Studies: Cardiology / EKG Studies 06/23/18 23:51 EKG [ELECTROCARDIOGRAM] Stat Comment: Reason For Exam: chest pain 06/24/18 09:19 EKG [ELECTROCARDIOGRAM] Stat Comment: Reason For Exam: tachcardi Critical Care Progress Note - Nutrition Nutrition: Nutrition Category Date Time Status Heart Healthy Diet [DIET] Diets 06/24/18 Dinner Active Assessment/Plan - Assessment and Plan (Free Text) Assessment: Pt is a 77yo male with PMH of triple vessel disease, COPD, and urosepsis presents with shortness of breath found to be septic. Pt was intubated, and a central line was placed. Plan: Neuro - Alzheimer's - intubated and sedated - placed on precedex Cardio - CHF, CAD, triple vessel disease - pt experienced volume overload, congestion on CXR - central line placed - pt was intubated - BNP 4220 - ASA, clopedigrel, levophed, phenylephrine, vassopressin, bicarb - troponin 0.26, 2.67, will continue to trend Q6 - Cardio consulted, Dr Landry Pulm - COPD - ABG 30/168/7.28 - Duonebs, pulmicort, methylprednisolone - Pulm consulted, Dr Whittaker GI - GERD - protonix Heme/Onc - Hgb 10.4 Nephro/ - UA protein, glucose, ketones, blood, LE, RBC, WBC ID - WBC 4.1 - aztreonam, vanc - ID consulted, Dr Rupa Cordova - DM - ISS Pt seen, examined, assessment and plan discussed with Dr Avery Aguilar PGY1 - Date & Time Date: 06/24/18 Time: 10:00 <Steve Varela - Last Filed: 06/24/18 13:02> CCU Objective - Vital Signs / Intake & Output Vital Signs (Last 4 hours): Vital Signs BP 06/24/18 12:49 69/66 L Intake and Output (Last 8hrs): Intake & Output 06/23/18 06/24/18 06/24/18 22:59 06:59 14:59 Intake Total 1362 Output Total 30 Balance 1332 Weight 135 lb 135 lb Intake: IV 1362 Right Forearm 1200 Oral 0 Output: Urine 30 Urethral (Tong) 30 Stool 0 Urine/Stool Mix 0 Other: Voiding Method Indwelling Catheter # Voids Urethral (Tong) 2 # Bowel Movements 0 - Medications Active Medications: Active Medications Generic Name Dose Route Start Last Admin Trade Name Freq PRN Reason Stop Dose Admin Acetaminophen 650 mg 06/24/18 03:34 Tylenol 325mg Tab PO Q6H PRN Fever >100.4 F Albuterol/Ipratropium 3 ml 06/24/18 03:15 Duoneb 3 Mg/0.5 Mg (3 Ml) Ud IH Q2H PRN Shortness of Breath Albuterol/Ipratropium 3 ml 06/24/18 10:00 Duoneb 3 Mg/0.5 Mg (3 Ml) Ud IH [id number] YOLANDA Aspirin 81 mg 06/24/18 10:00 Ecotrin PO DAILY YOLANDA Budesonide 0.5 mg 06/24/18 08:00 06/24/18 08:08 Pulmicort Respules IH 0.5 mg [id number] YOLANDA Administration Clopidogrel Bisulfate 75 mg 06/24/18 10:00 06/24/18 09:25 Plavix PO 75 mg DAILY YOLANDA Administration Dextrose 0 ml 06/24/18 03:19 Dextrose 50% Inj IV STAT PRN Hypoglycemia Protocol Protocol Enoxaparin Sodium 40 mg 06/24/18 10:00 06/24/18 09:24 Lovenox SC 40 mg DAILY YOLANDA Administration Protocol Hydrocortisone Sodium Succinate 100 mg 06/24/18 12:15 06/24/18 12:20 Solu-Cortef IVP 100 mg Q8 YOLANDA Administration Dextrose 1,000 mls @ 0 mls/hr 06/24/18 03:19 Dextrose 5% In Water 1000 Ml IV .Q0M PRN Hypoglycemia Protocol Protocol Per Protocol Acetaminophen 1,000 mg in 100 mls @ 400 mls/hr 06/24/18 03:44 06/24/18 11:35 Ofirmev IVPB 06/26/18 03:45 400 mls/hr Q6H PRN Administration Temperature Phenylephrine HCl 40 mg/ 254 mls @ 38.1 mls/hr 06/24/18 07:54 06/24/18 10:17 Sodium Chloride IV 270 mcg/min .[id number] PRN 102.87 mls/hr TITRATE PER MD ORDER Titration Protocol 100 MCG/MIN Aztreonam 100 mls @ 100 mls/hr 06/24/18 14:00 Azactam 2 Gm IVPB 06/24/18 22:59 Q8 YOLANDA Protocol Vancomycin HCl 1 gm in 250 mls @ 167 mls/hr 06/24/18 10:00 06/24/18 09:23 Vancomycin 1gm IVPB 167 mls/hr DAILY YOLANDA Administration Protocol Dexmedetomidine HCl 400 mcg in 100 mls @ 3.062 mls/hr 06/24/18 09:28 06/24/18 10:16 Precedex 400mcg/100ml IV 0.4 mcg/kg/hr .Q24H PRN 6.124 mls/hr Sedation Titration Protocol 0.2 MCG/KG/HR NOREPINEPHRINE BIT/0.9 % NACL 4 mg in 250 mls @ 15 mls/hr 06/24/18 09:37 06/24/18 11:52 Levophed 4 Mg/ 250 Ml Ns Premixed IV 12 mcg/min .[id number] PRN 45 mls/hr TITRATE PER MD ORDER Titration Protocol 4 MCG/MIN Vasopressin 20 units/ Sodium 101 mls @ 9.09 mls/hr 06/24/18 12:15 06/24/18 12:49 Chloride IV 9.09 mls/hr .[id number] YOLANDA Administration Protocol 0.03 U/MIN Magnesium Sulfate/Dextrose 1 gm in 100 mls @ 100 mls/hr 06/24/18 12:09 06/24/18 12:55 Magnesium Sulfate 1 Gm/100 Ml D5w IVPB 06/24/18 13:08 100 mls/hr ONCE ONE Administration Sodium Bicarbonate 75 meq/ 1,000 mls @ 100 mls/hr 06/24/18 12:15 06/24/18 12:49 Sodium Chloride IV 100 mls/hr .Q10H YOLANDA Administration Insulin Human Regular 0 units 06/24/18 07:30 06/24/18 09:14 Humulin R Med SC Not Given ACHS [facility] Protocol Morphine Sulfate 2 mg 06/24/18 11:03 Morphine IVP Q3H PRN Pain, severe (8-10) Nystatin 0 gm 06/24/18 04:02 Nystop Topical Powder TOP Q6H [facility] Pantoprazole Sodium 40 mg 06/24/18 10:00 06/24/18 09:23 Protonix Inj IVP 40 mg DAILY [facility] Administration - Patient Studies Lab Studies: Lab Studies 06/24/18 06/24/18 06/24/18 Range/Units 11:10 10:56 09:30 WBC 4.1 L (4.5-11.0) 10^3/uL RBC 3.50 (3.5-6.1) 10^6/uL Hgb 10.4 L D (14.0-18.0) g/dL Hct 33.1 L (42.0-52.0) % MCV 94.6 (80.0-105.0) fl MCH 29.7 (25.0-35.0) pg MCHC 31.4 (31.0-37.0) g/dl RDW 16.8 H (11.5-14.5) % Plt Count 105 L (120.0-450.0) 10^3/uL MPV 10.0 (7.0-11.0) fl Neut % (Auto) 91.9 H (50.0-68.0) % Lymph % (Auto) 3.7 L (22.0-35.0) % [place] % (Auto) 4.2 (1.0-6.0) % Eos % (Auto) 0.2 L (1.5-5.0) % Baso % (Auto) 0.0 (0.0-3.0) % Lymph # (Auto) 0.2 L (1.2-3.4) [place] # (Auto) 0.2 (0.1-0.6) Eos # (Auto) 0.0 (0.0-0.7) Baso # (Auto) 0.00 (0.0-2.0) K/mm3 Absolute Neuts (auto) 3.75 (1.4-6.5) Neutrophils % (Manual) 60 (50.0-70.0) % Band Neutrophils % 13 H* (0-2) % Lymphocytes % (Manual) 8 L (22.0-35.0) % Monocytes % (Manual) 14 H (1.0-6.0) % Eosinophils % (Manual) 1 (0.0-3.0) % Metamyelocytes % 3 % Myelocytes % 1 % Large Platelets Present pCO2 (35-45) mm/Hg pO2 38 (30-55) mm/Hg HCO3 (21-28) mmol/L ABG pH (7.35-7.45) ABG Total CO2 (22-28) mmol.L ABG O2 Saturation (95-98) % ABG O2 Content (15-23) ML/dl ABG Base Excess (-2.0-3.0) mmol/L ABG Hemoglobin (11.7-17.4) g/dL ABG Carboxyhemoglobin (0.5-1.5) % POC ABG HHb (Measured) (0-5) % ABG Methemoglobin (0.0-3.0) % ABG O2 Capacity (16-24) mL/dl VBG pH 7.11 L* (7.32-7.43) VBG pCO2 44.0 (40-60) VBG HCO3 14.0 L (21-28) mmol/l VBG Total CO2 15.4 L (22-28) mmol.L VBG O2 Sat (Calc) 63.0 (40-65) % VBG Base Excess -15.1 L (0.0-2.0) mmol/L VBG Potassium 3.9 (3.6-5.2) mmol/L Hgb O2 Saturation (95.0-98.0) % Glucose 131 H (75-110) mg/dl Lactate 7.9 H* (0.7-2.1) mmol/L FiO2 21.0 % Crit Value Called To Gaby rangel Crit Value Called By Blood Gas Notified Time 1129 Sodium 142.0 (132-148) mmol/L Potassium (3.6-5.0) mmol/L Chloride 108.0 H (98-107) mmol/L Carbon Dioxide (21-33) mmol/L Anion Gap (10-20) BUN (7-21) mg/dL Creatinine (0.8-1.5) mg/dl Est GFR ( Amer) Est GFR (Non-Af Amer) POC Glucose (mg/dL) 123 H (65-110) mg/dL Random Glucose (70-110) mg/dL Calcium (8.4-10.5) mg/dL Phosphorus (2.5-4.5) mg/dL Magnesium (1.7-2.2) mg/dL Total Bilirubin (0.2-1.3) mg/dL AST (17-59) U/L ALT (7-56) U/L Alkaline Phosphatase (38-126) U/L Lactate Dehydrogenase (333-699) U/L Total Creatine Kinase (35-230) U/L Troponin I ng/mL NT-Pro-B Natriuret Pep (0-450) pg/mL Total Protein (5.8-8.3) g/dL Albumin (3.0-4.8) g/dL Globulin gm/dL Albumin/Globulin Ratio (1.1-1.8) Venous Blood Potassium 3.9 (3.6-5.2) mmol/L Urine Color (YELLOW) Urine Appearance (CLEAR) Urine pH (4.7-8.0) Ur Specific [place] (1.005-1.035) Urine Protein (<30 mg/dL) mg/dL Urine Glucose (UA) (NEGATIVE) mg/dL Urine Ketones (NEGATIVE) mg/dL Urine Blood (NEGATIVE) Urine Nitrate (NEGATIVE) Urine Bilirubin (NEGATIVE) Urine Urobilinogen (<1 E.U./dL) E.U./dL Ur Leukocyte Esterase (NEGATIVE) Lizzeth/uL Urine RBC (0-2) /hpf Urine WBC (0-6) /hpf Ur Epithelial Cells (0-5) /hpf Urine Bacteria (NONE) /hpf 06/24/18 06/24/18 06/24/18 Range/Units 09:30 09:07 08:19 WBC (4.5-11.0) 10^3/uL RBC (3.5-6.1) 10^6/uL Hgb (14.0-18.0) g/dL Hct (42.0-52.0) % MCV (80.0-105.0) fl MCH (25.0-35.0) pg MCHC (31.0-37.0) g/dl RDW (11.5-14.5) % Plt Count (120.0-450.0) 10^3/uL MPV (7.0-11.0) fl Neut % (Auto) (50.0-68.0) % Lymph % (Auto) (22.0-35.0) % [place] % (Auto) (1.0-6.0) % Eos % (Auto) (1.5-5.0) % Baso % (Auto) (0.0-3.0) % Lymph # (Auto) (1.2-3.4) [place] # (Auto) (0.1-0.6) Eos # (Auto) (0.0-0.7) Baso # (Auto) (0.0-2.0) K/mm3 Absolute Neuts (auto) (1.4-6.5) Neutrophils % (Manual) (50.0-70.0) % Band Neutrophils % (0-2) % Lymphocytes % (Manual) (22.0-35.0) % Monocytes % (Manual) (1.0-6.0) % Eosinophils % (Manual) (0.0-3.0) % Metamyelocytes % % Myelocytes % % Large Platelets pCO2 30 L (35-45) mm/Hg pO2 168.0 H (30-55) mm/Hg HCO3 14.1 L (21-28) mmol/L ABG pH 7.28 L (7.35-7.45) ABG Total CO2 15.0 L (22-28) mmol.L ABG O2 Saturation 99.8 H (95-98) % ABG O2 Content 14.8 L (15-23) ML/dl ABG Base Excess -11.4 L (-2.0-3.0) mmol/L ABG Hemoglobin 10.6 L (11.7-17.4) g/dL ABG Carboxyhemoglobin 2.1 H (0.5-1.5) % POC ABG HHb (Measured) 0.2 (0-5) % ABG Methemoglobin 1.1 (0.0-3.0) % ABG O2 Capacity 14.8 L (16-24) mL/dl VBG pH (7.32-7.43) VBG pCO2 (40-60) VBG HCO3 (21-28) mmol/l VBG Total CO2 (22-28) mmol.L VBG O2 Sat (Calc) (40-65) % VBG Base Excess (0.0-2.0) mmol/L VBG Potassium (3.6-5.2) mmol/L Hgb O2 Saturation 96.6 (95.0-98.0) % Glucose (75-110) mg/dl Lactate (0.7-2.1) mmol/L FiO2 100.0 % Crit Value Called To Crit Value Called By Blood Gas Notified Time Sodium 140 (132-148) mmol/L Potassium 3.7 (3.6-5.0) mmol/L Chloride 113 H (98-107) mmol/L Carbon Dioxide 18 L (21-33) mmol/L Anion Gap 13 (10-20) BUN 37 H (7-21) mg/dL Creatinine 1.0 (0.8-1.5) mg/dl Est GFR ( Amer) > 60 Est GFR (Non-Af Amer) > 60 POC Glucose (mg/dL) 103 (65-110) mg/dL Random Glucose 113 H (70-110) mg/dL Calcium 8.5 (8.4-10.5) mg/dL Phosphorus (2.5-4.5) mg/dL Magnesium 1.5 L (1.7-2.2) mg/dL Total Bilirubin 1.2 (0.2-1.3) mg/dL AST 32 (17-59) U/L ALT 16 (7-56) U/L Alkaline Phosphatase 55 (38-126) U/L Lactate Dehydrogenase 412 (333-699) U/L Total Creatine Kinase 169 (35-230) U/L Troponin I 2.67 H* D ng/mL NT-Pro-B Natriuret Pep (0-450) pg/mL Total Protein 4.5 L (5.8-8.3) g/dL Albumin 2.6 L (3.0-4.8) g/dL Globulin 1.9 gm/dL Albumin/Globulin Ratio 1.4 (1.1-1.8) Venous Blood Potassium (3.6-5.2) mmol/L Urine Color (YELLOW) Urine Appearance (CLEAR) Urine pH (4.7-8.0) Ur Specific [place] (1.005-1.035) Urine Protein (<30 mg/dL) mg/dL Urine Glucose (UA) (NEGATIVE) mg/dL Urine Ketones (NEGATIVE) mg/dL Urine Blood (NEGATIVE) Urine Nitrate (NEGATIVE) Urine Bilirubin (NEGATIVE) Urine Urobilinogen (<1 E.U./dL) E.U./dL Ur Leukocyte Esterase (NEGATIVE) Lizzeth/uL Urine RBC (0-2) /hpf Urine WBC (0-6) /hpf Ur Epithelial Cells (0-5) /hpf Urine Bacteria (NONE) /hpf 06/24/18 06/24/18 06/24/18 Range/Units 07:00 07:00 03:38 WBC (4.5-11.0) 10^3/uL RBC (3.5-6.1) 10^6/uL Hgb (14.0-18.0) g/dL Hct (42.0-52.0) % MCV (80.0-105.0) fl MCH (25.0-35.0) pg MCHC (31.0-37.0) g/dl RDW (11.5-14.5) % Plt Count (120.0-450.0) 10^3/uL MPV (7.0-11.0) fl Neut % (Auto) (50.0-68.0) % Lymph % (Auto) (22.0-35.0) % [place] % (Auto) (1.0-6.0) % Eos % (Auto) (1.5-5.0) % Baso % (Auto) (0.0-3.0) % Lymph # (Auto) (1.2-3.4) [place] # (Auto) (0.1-0.6) Eos # (Auto) (0.0-0.7) Baso # (Auto) (0.0-2.0) K/mm3 Absolute Neuts (auto) (1.4-6.5) Neutrophils % (Manual) (50.0-70.0) % Band Neutrophils % (0-2) % Lymphocytes % (Manual) (22.0-35.0) % Monocytes % (Manual) (1.0-6.0) % Eosinophils % (Manual) (0.0-3.0) % Metamyelocytes % % Myelocytes % % Large Platelets pCO2 (35-45) mm/Hg pO2 40 (30-55) mm/Hg HCO3 (21-28) mmol/L ABG pH (7.35-7.45) ABG Total CO2 (22-28) mmol.L ABG O2 Saturation (95-98) % ABG O2 Content (15-23) ML/dl ABG Base Excess (-2.0-3.0) mmol/L ABG Hemoglobin (11.7-17.4) g/dL ABG Carboxyhemoglobin (0.5-1.5) % POC ABG HHb (Measured) (0-5) % ABG Methemoglobin (0.0-3.0) % ABG O2 Capacity (16-24) mL/dl VBG pH 7.18 L* (7.32-7.43) VBG pCO2 48.0 (40-60) VBG HCO3 17.9 L (21-28) mmol/l VBG Total CO2 19.4 L (22-28) mmol.L VBG O2 Sat (Calc) 67.5 H (40-65) % VBG Base Excess -10.4 L (0.0-2.0) mmol/L VBG Potassium 3.5 L (3.6-5.2) mmol/L Hgb O2 Saturation (95.0-98.0) % Glucose 125 H (75-110) mg/dl Lactate 4.5 H* (0.7-2.1) mmol/L FiO2 21.0 % Crit Value Called To Praful empirial Crit Value Called By Blood Gas Notified Time 741 Sodium 142.0 (132-148) mmol/L Potassium (3.6-5.0) mmol/L Chloride 111.0 H (98-107) mmol/L Carbon Dioxide (21-33) mmol/L Anion Gap (10-20) BUN (7-21) mg/dL Creatinine (0.8-1.5) mg/dl Est GFR ( Amer) Est GFR (Non-Af Amer) POC Glucose (mg/dL) (65-110) mg/dL Random Glucose (70-110) mg/dL Calcium (8.4-10.5) mg/dL Phosphorus (2.5-4.5) mg/dL Magnesium (1.7-2.2) mg/dL Total Bilirubin (0.2-1.3) mg/dL AST (17-59) U/L ALT (7-56) U/L Alkaline Phosphatase (38-126) U/L Lactate Dehydrogenase 397 (333-699) U/L Total Creatine Kinase 39 (35-230) U/L Troponin I 0.26 H* D ng/mL NT-Pro-B Natriuret Pep 4220 H (0-450) pg/mL Total Protein (5.8-8.3) g/dL Albumin (3.0-4.8) g/dL Globulin gm/dL Albumin/Globulin Ratio (1.1-1.8) Venous Blood Potassium 3.5 L (3.6-5.2) mmol/L Urine Color (YELLOW) Urine Appearance (CLEAR) Urine pH (4.7-8.0) Ur Specific [place] (1.005-1.035) Urine Protein (<30 mg/dL) mg/dL Urine Glucose (UA) (NEGATIVE) mg/dL Urine Ketones (NEGATIVE) mg/dL Urine Blood (NEGATIVE) Urine Nitrate (NEGATIVE) Urine Bilirubin (NEGATIVE) Urine Urobilinogen (<1 E.U./dL) E.U./dL Ur Leukocyte Esterase (NEGATIVE) Lizzeth/uL Urine RBC (0-2) /hpf Urine WBC (0-6) /hpf Ur Epithelial Cells (0-5) /hpf Urine Bacteria (NONE) /hpf 06/24/18 06/24/18 06/24/18 Range/Units 03:37 03:10 00:05 WBC (4.5-11.0) 10^3/uL RBC (3.5-6.1) 10^6/uL Hgb (14.0-18.0) g/dL Hct (42.0-52.0) % MCV (80.0-105.0) fl MCH (25.0-35.0) pg MCHC (31.0-37.0) g/dl RDW (11.5-14.5) % Plt Count (120.0-450.0) 10^3/uL MPV (7.0-11.0) fl Neut % (Auto) (50.0-68.0) % Lymph % (Auto) (22.0-35.0) % [place] % (Auto) (1.0-6.0) % Eos % (Auto) (1.5-5.0) % Baso % (Auto) (0.0-3.0) % Lymph # (Auto) (1.2-3.4) [place] # (Auto) (0.1-0.6) Eos # (Auto) (0.0-0.7) Baso # (Auto) (0.0-2.0) K/mm3 Absolute Neuts (auto) (1.4-6.5) Neutrophils % (Manual) (50.0-70.0) % Band Neutrophils % (0-2) % Lymphocytes % (Manual) (22.0-35.0) % Monocytes % (Manual) (1.0-6.0) % Eosinophils % (Manual) (0.0-3.0) % Metamyelocytes % % Myelocytes % % Large Platelets pCO2 (35-45) mm/Hg pO2 21 L (30-55) mm/Hg HCO3 (21-28) mmol/L ABG pH (7.35-7.45) ABG Total CO2 (22-28) mmol.L ABG O2 Saturation (95-98) % ABG O2 Content (15-23) ML/dl ABG Base Excess (-2.0-3.0) mmol/L ABG Hemoglobin (11.7-17.4) g/dL ABG Carboxyhemoglobin (0.5-1.5) % POC ABG HHb (Measured) (0-5) % ABG Methemoglobin (0.0-3.0) % ABG O2 Capacity (16-24) mL/dl VBG pH 7.28 L (7.32-7.43) VBG pCO2 43.0 (40-60) VBG HCO3 20.2 L (21-28) mmol/l VBG Total CO2 21.5 L (22-28) mmol.L VBG O2 Sat (Calc) 22.8 L (40-65) % VBG Base Excess -6.4 L (0.0-2.0) mmol/L VBG Potassium 5.0 (3.6-5.2) mmol/L Hgb O2 Saturation (95.0-98.0) % Glucose 194 H (75-110) mg/dl Lactate 5.1 H* (0.7-2.1) mmol/L FiO2 21.0 % Crit Value Called To Rn Crit Value Called By Rs Blood Gas Notified Time 322 Sodium 138.0 (132-148) mmol/L Potassium (3.6-5.0) mmol/L Chloride 109.0 H (98-107) mmol/L Carbon Dioxide (21-33) mmol/L Anion Gap (10-20) BUN (7-21) mg/dL Creatinine (0.8-1.5) mg/dl Est GFR ( Amer) Est GFR (Non-Af Amer) POC Glucose (mg/dL) 160 H (65-110) mg/dL Random Glucose (70-110) mg/dL Calcium (8.4-10.5) mg/dL Phosphorus (2.5-4.5) mg/dL Magnesium (1.7-2.2) mg/dL Total Bilirubin (0.2-1.3) mg/dL AST (17-59) U/L ALT (7-56) U/L Alkaline Phosphatase (38-126) U/L Lactate Dehydrogenase (333-699) U/L Total Creatine Kinase (35-230) U/L Troponin I ng/mL NT-Pro-B Natriuret Pep (0-450) pg/mL Total Protein (5.8-8.3) g/dL Albumin (3.0-4.8) g/dL Globulin gm/dL Albumin/Globulin Ratio (1.1-1.8) Venous Blood Potassium 5.0 (3.6-5.2) mmol/L Urine Color Dark yellow (YELLOW) Urine Appearance Sl cloudy (CLEAR) Urine pH 6.0 (4.7-8.0) Ur Specific [place] >= 1.030 (1.005-1.035) Urine Protein 30 H (<30 mg/dL) mg/dL Urine Glucose (UA) 500 H (NEGATIVE) mg/dL Urine Ketones Trace H (NEGATIVE) mg/dL Urine Blood Large H (NEGATIVE) Urine Nitrate Negative (NEGATIVE) Urine Bilirubin Small H (NEGATIVE) Urine Urobilinogen 0.2 (<1 E.U./dL) E.U./dL Ur Leukocyte Esterase Moderate H (NEGATIVE) Lizzeth/uL Urine RBC 2 - 5 H (0-2) /hpf Urine WBC 10 - 15 H (0-6) /hpf Ur Epithelial Cells 0 - 2 (0-5) /hpf Urine Bacteria Small (NONE) /hpf 06/24/18 06/23/18 06/23/18 Range/Units 00:00 23:50 23:50 WBC 4.3 L D (4.5-11.0) 10^3/uL RBC 4.32 (3.5-6.1) 10^6/uL Hgb 13.0 L D (14.0-18.0) g/dL Hct 39.7 L (42.0-52.0) % MCV 91.9 (80.0-105.0) fl MCH 30.1 (25.0-35.0) pg MCHC 32.7 (31.0-37.0) g/dl RDW 16.8 H (11.5-14.5) % Plt Count 146 (120.0-450.0) 10^3/uL MPV 9.9 (7.0-11.0) fl Neut % (Auto) 84.1 H (50.0-68.0) % Lymph % (Auto) 8.5 L (22.0-35.0) % [place] % (Auto) 7.2 H (1.0-6.0) % Eos % (Auto) 0.0 L (1.5-5.0) % Baso % (Auto) 0.2 (0.0-3.0) % Lymph # (Auto) 0.4 L (1.2-3.4) [place] # (Auto) 0.3 (0.1-0.6) Eos # (Auto) 0.0 (0.0-0.7) Baso # (Auto) 0.01 (0.0-2.0) K/mm3 Absolute Neuts (auto) 3.64 (1.4-6.5) Neutrophils % (Manual) (50.0-70.0) % Band Neutrophils % (0-2) % Lymphocytes % (Manual) (22.0-35.0) % Monocytes % (Manual) (1.0-6.0) % Eosinophils % (Manual) (0.0-3.0) % Metamyelocytes % % Myelocytes % % Large Platelets pCO2 (35-45) mm/Hg pO2 50 (30-55) mm/Hg HCO3 (21-28) mmol/L ABG pH (7.35-7.45) ABG Total CO2 (22-28) mmol.L ABG O2 Saturation (95-98) % ABG O2 Content (15-23) ML/dl ABG Base Excess (-2.0-3.0) mmol/L ABG Hemoglobin (11.7-17.4) g/dL ABG Carboxyhemoglobin (0.5-1.5) % POC ABG HHb (Measured) (0-5) % ABG Methemoglobin (0.0-3.0) % ABG O2 Capacity (16-24) mL/dl VBG pH 7.38 (7.32-7.43) VBG pCO2 36.0 L (40-60) VBG HCO3 21.3 (21-28) mmol/l VBG Total CO2 22.4 (22-28) mmol.L VBG O2 Sat (Calc) 82.2 H (40-65) % VBG Base Excess -3.3 L (0.0-2.0) mmol/L VBG Potassium 4.5 (3.6-5.2) mmol/L Hgb O2 Saturation (95.0-98.0) % Glucose 275 H (75-110) mg/dl Lactate 4.3 H* (0.7-2.1) mmol/L FiO2 21.0 % Crit Value Called To Rn Crit Value Called By Rs Blood Gas Notified Time 9 Sodium 134.0 137 (132-148) mmol/L Potassium 4.9 (3.6-5.0) mmol/L Chloride 100.0 101 (98-107) mmol/L Carbon Dioxide 22 (21-33) mmol/L Anion Gap 19 (10-20) BUN 43 H (7-21) mg/dL Creatinine 1.0 (0.8-1.5) mg/dl Est GFR ( Amer) > 60 Est GFR (Non-Af Amer) > 60 POC Glucose (mg/dL) (65-110) mg/dL Random Glucose 262 H (70-110) mg/dL Calcium 10.4 (8.4-10.5) mg/dL Phosphorus 3.8 (2.5-4.5) mg/dL Magnesium 1.9 (1.7-2.2) mg/dL Total Bilirubin 1.5 H (0.2-1.3) mg/dL AST 31 (17-59) U/L ALT 12 (7-56) U/L Alkaline Phosphatase 80 (38-126) U/L Lactate Dehydrogenase (333-699) U/L Total Creatine Kinase (35-230) U/L Troponin I ng/mL NT-Pro-B Natriuret Pep (0-450) pg/mL Total Protein 6.6 (5.8-8.3) g/dL Albumin 3.8 (3.0-4.8) g/dL Globulin 2.8 gm/dL Albumin/Globulin Ratio 1.3 (1.1-1.8) Venous Blood Potassium 4.5 (3.6-5.2) mmol/L Urine Color (YELLOW) Urine Appearance (CLEAR) Urine pH (4.7-8.0) Ur Specific [place] (1.005-1.035) Urine Protein (<30 mg/dL) mg/dL Urine Glucose (UA) (NEGATIVE) mg/dL Urine Ketones (NEGATIVE) mg/dL Urine Blood (NEGATIVE) Urine Nitrate (NEGATIVE) Urine Bilirubin (NEGATIVE) Urine Urobilinogen (<1 E.U./dL) E.U./dL Ur Leukocyte Esterase (NEGATIVE) [place]/uL Urine RBC (0-2) /hpf Urine WBC (0-6) /hpf Ur Epithelial Cells (0-5) /hpf Urine Bacteria (NONE) /hpf Laboratory Results - last 24 hr 06/23/18 06/23/18 06/24/18 23:50 23:50 00:00 WBC 4.3 L D RBC 4.32 Hgb 13.0 L D Hct 39.7 L MCV 91.9 MCH 30.1 MCHC 32.7 RDW 16.8 H Plt Count 146 MPV 9.9 Neut % (Auto) 84.1 H Lymph % (Auto) 8.5 L [place] % (Auto) 7.2 H Eos % (Auto) 0.0 L Baso % (Auto) 0.2 Lymph # (Auto) 0.4 L [place] # (Auto) 0.3 Eos # (Auto) 0.0 Baso # (Auto) 0.01 Absolute Neuts (auto) 3.64 Neutrophils % (Manual) Band Neutrophils % Lymphocytes % (Manual) Monocytes % (Manual) Eosinophils % (Manual) Metamyelocytes % Myelocytes % Large Platelets pCO2 pO2 50 HCO3 ABG pH ABG Total CO2 ABG O2 Saturation ABG O2 Content ABG Base Excess ABG Hemoglobin ABG Carboxyhemoglobin POC ABG HHb (Measured) ABG Methemoglobin ABG O2 Capacity VBG pH 7.38 VBG pCO2 36.0 L VBG HCO3 21.3 VBG Total CO2 22.4 VBG O2 Sat (Calc) 82.2 H VBG Base Excess -3.3 L VBG Potassium 4.5 Hgb O2 Saturation Glucose 275 H Lactate 4.3 H* FiO2 21.0 Crit Value Called To Rn Crit Value Called By Rs Blood Gas Notified Time 9 Sodium 137 134.0 Potassium 4.9 Chloride 101 100.0 Carbon Dioxide 22 Anion Gap 19 BUN 43 H Creatinine 1.0 Est GFR ( Amer) > 60 Est GFR (Non-Af Amer) > 60 POC Glucose (mg/dL) Random Glucose 262 H Calcium 10.4 Phosphorus 3.8 Magnesium 1.9 Total Bilirubin 1.5 H AST 31 ALT 12 Alkaline Phosphatase 80 Lactate Dehydrogenase Total Creatine Kinase Troponin I NT-Pro-B Natriuret Pep Total Protein 6.6 Albumin 3.8 Globulin 2.8 Albumin/Globulin Ratio 1.3 Venous Blood Potassium 4.5 Urine Color Urine Appearance Urine pH Ur Specific [place] Urine Protein Urine Glucose (UA) Urine Ketones Urine Blood Urine Nitrate Urine Bilirubin Urine Urobilinogen Ur Leukocyte Esterase Urine RBC Urine WBC Ur Epithelial Cells Urine Bacteria 06/24/18 06/24/18 06/24/18 00:05 03:10 03:37 WBC RBC Hgb Hct MCV MCH MCHC RDW Plt Count MPV Neut % (Auto) Lymph % (Auto) [place] % (Auto) Eos % (Auto) Baso % (Auto) Lymph # (Auto) [place] # (Auto) Eos # (Auto) Baso # (Auto) Absolute Neuts (auto) Neutrophils % (Manual) Band Neutrophils % Lymphocytes % (Manual) Monocytes % (Manual) Eosinophils % (Manual) Metamyelocytes % Myelocytes % Large Platelets pCO2 pO2 21 L HCO3 ABG pH ABG Total CO2 ABG O2 Saturation ABG O2 Content ABG Base Excess ABG Hemoglobin ABG Carboxyhemoglobin POC ABG HHb (Measured) ABG Methemoglobin ABG O2 Capacity VBG pH 7.28 L VBG pCO2 43.0 VBG HCO3 20.2 L VBG Total CO2 21.5 L VBG O2 Sat (Calc) 22.8 L VBG Base Excess -6.4 L VBG Potassium 5.0 Hgb O2 Saturation Glucose 194 H Lactate 5.1 H* FiO2 21.0 Crit Value Called To Rn Crit Value Called By Rs Blood Gas Notified Time 322 Sodium 138.0 Potassium Chloride 109.0 H Carbon Dioxide Anion Gap BUN Creatinine Est GFR ( Amer) Est GFR (Non-Af Amer) POC Glucose (mg/dL) 160 H Random Glucose Calcium Phosphorus Magnesium Total Bilirubin AST ALT Alkaline Phosphatase Lactate Dehydrogenase Total Creatine Kinase Troponin I NT-Pro-B Natriuret Pep Total Protein Albumin Globulin Albumin/Globulin Ratio Venous Blood Potassium 5.0 Urine Color Dark yellow Urine Appearance Sl cloudy Urine pH 6.0 Ur Specific [place] >= 1.030 Urine Protein 30 H Urine Glucose (UA) 500 H Urine Ketones Trace H Urine Blood Large H Urine Nitrate Negative Urine Bilirubin Small H Urine Urobilinogen 0.2 Ur Leukocyte Esterase Moderate H Urine RBC 2 - 5 H Urine WBC 10 - 15 H Ur Epithelial Cells 0 - 2 Urine Bacteria Small 06/24/18 06/24/18 06/24/18 03:38 07:00 07:00 WBC RBC Hgb Hct MCV MCH MCHC RDW Plt Count MPV Neut % (Auto) Lymph % (Auto) [place] % (Auto) Eos % (Auto) Baso % (Auto) Lymph # (Auto) [place] # (Auto) Eos # (Auto) Baso # (Auto) Absolute Neuts (auto) Neutrophils % (Manual) Band Neutrophils % Lymphocytes % (Manual) Monocytes % (Manual) Eosinophils % (Manual) Metamyelocytes % Myelocytes % Large Platelets pCO2 pO2 40 HCO3 ABG pH ABG Total CO2 ABG O2 Saturation ABG O2 Content ABG Base Excess ABG Hemoglobin ABG Carboxyhemoglobin POC ABG HHb (Measured) ABG Methemoglobin ABG O2 Capacity VBG pH 7.18 L* VBG pCO2 48.0 VBG HCO3 17.9 L VBG Total CO2 19.4 L VBG O2 Sat (Calc) 67.5 H VBG Base Excess -10.4 L VBG Potassium 3.5 L Hgb O2 Saturation Glucose 125 H Lactate 4.5 H* FiO2 21.0 Crit Value Called To Praful empirial Crit Value Called By Es Blood Gas Notified Time 741 Sodium 142.0 Potassium Chloride 111.0 H Carbon Dioxide Anion Gap BUN Creatinine Est GFR ( Amer) Est GFR (Non-Af Amer) POC Glucose (mg/dL) Random Glucose Calcium Phosphorus Magnesium Total Bilirubin AST ALT Alkaline Phosphatase Lactate Dehydrogenase 397 Total Creatine Kinase 39 Troponin I 0.26 H* D NT-Pro-B Natriuret Pep 4220 H Total Protein Albumin Globulin Albumin/Globulin Ratio Venous Blood Potassium 3.5 L Urine Color Urine Appearance Urine pH Ur Specific [place] Urine Protein Urine Glucose (UA) Urine Ketones Urine Blood Urine Nitrate Urine Bilirubin Urine Urobilinogen Ur Leukocyte Esterase Urine RBC Urine WBC Ur Epithelial Cells Urine Bacteria 06/24/18 06/24/18 06/24/18 08:19 09:07 09:30 WBC RBC Hgb Hct MCV MCH MCHC RDW Plt Count MPV Neut % (Auto) Lymph % (Auto) [place] % (Auto) Eos % (Auto) Baso % (Auto) Lymph # (Auto) [place] # (Auto) Eos # (Auto) Baso # (Auto) Absolute Neuts (auto) Neutrophils % (Manual) Band Neutrophils % Lymphocytes % (Manual) Monocytes % (Manual) Eosinophils % (Manual) Metamyelocytes % Myelocytes % Large Platelets pCO2 30 L pO2 168.0 H HCO3 14.1 L ABG pH 7.28 L ABG Total CO2 15.0 L ABG O2 Saturation 99.8 H ABG O2 Content 14.8 L ABG Base Excess -11.4 L ABG Hemoglobin 10.6 L ABG Carboxyhemoglobin 2.1 H POC ABG HHb (Measured) 0.2 ABG Methemoglobin 1.1 ABG O2 Capacity 14.8 L VBG pH VBG pCO2 VBG HCO3 VBG Total CO2 VBG O2 Sat (Calc) VBG Base Excess VBG Potassium Hgb O2 Saturation 96.6 Glucose Lactate FiO2 100.0 Crit Value Called To Crit Value Called By Blood Gas Notified Time Sodium 140 Potassium 3.7 Chloride 113 H Carbon Dioxide 18 L Anion Gap 13 BUN 37 H Creatinine 1.0 Est GFR ( Amer) > 60 Est GFR (Non-Af Amer) > 60 POC Glucose (mg/dL) 103 Random Glucose 113 H Calcium 8.5 Phosphorus Magnesium 1.5 L Total Bilirubin 1.2 AST 32 ALT 16 Alkaline Phosphatase 55 Lactate Dehydrogenase 412 Total Creatine Kinase 169 Troponin I 2.67 H* D NT-Pro-B Natriuret Pep Total Protein 4.5 L Albumin 2.6 L Globulin 1.9 Albumin/Globulin Ratio 1.4 Venous Blood Potassium Urine Color Urine Appearance Urine pH Ur Specific [place] Urine Protein Urine Glucose (UA) Urine Ketones Urine Blood Urine Nitrate Urine Bilirubin Urine Urobilinogen Ur Leukocyte Esterase Urine RBC Urine WBC Ur Epithelial Cells Urine Bacteria 06/24/18 06/24/18 06/24/18 09:30 10:56 11:10 WBC 4.1 L RBC 3.50 Hgb 10.4 L D Hct 33.1 L MCV 94.6 MCH 29.7 MCHC 31.4 RDW 16.8 H Plt Count 105 L MPV 10.0 Neut % (Auto) 91.9 H Lymph % (Auto) 3.7 L [place] % (Auto) 4.2 Eos % (Auto) 0.2 L Baso % (Auto) 0.0 Lymph # (Auto) 0.2 L [place] # (Auto) 0.2 Eos # (Auto) 0.0 Baso # (Auto) 0.00 Absolute Neuts (auto) 3.75 Neutrophils % (Manual) 60 Band Neutrophils % 13 H* Lymphocytes % (Manual) 8 L Monocytes % (Manual) 14 H Eosinophils % (Manual) 1 Metamyelocytes % 3 Myelocytes % 1 Large Platelets Present pCO2 pO2 38 HCO3 ABG pH ABG Total CO2 ABG O2 Saturation ABG O2 Content ABG Base Excess ABG Hemoglobin ABG Carboxyhemoglobin POC ABG HHb (Measured) ABG Methemoglobin ABG O2 Capacity VBG pH 7.11 L* VBG pCO2 44.0 VBG HCO3 14.0 L VBG Total CO2 15.4 L VBG O2 Sat (Calc) 63.0 VBG Base Excess -15.1 L VBG Potassium 3.9 Hgb O2 Saturation Glucose 131 H Lactate 7.9 H* FiO2 21.0 Crit Value Called To Gaby rangel Crit Value Called By Blood Gas Notified Time 1129 Sodium 142.0 Potassium Chloride 108.0 H Carbon Dioxide Anion Gap BUN Creatinine Est GFR ( Amer) Est GFR (Non-Af Amer) POC Glucose (mg/dL) 123 H Random Glucose Calcium Phosphorus Magnesium Total Bilirubin AST ALT Alkaline Phosphatase Lactate Dehydrogenase Total Creatine Kinase Troponin I NT-Pro-B Natriuret Pep Total Protein Albumin Globulin Albumin/Globulin Ratio Venous Blood Potassium 3.9 Urine Color Urine Appearance Urine pH Ur Specific [place] Urine Protein Urine Glucose (UA) Urine Ketones Urine Blood Urine Nitrate Urine Bilirubin Urine Urobilinogen Ur Leukocyte Esterase Urine RBC Urine WBC Ur Epithelial Cells Urine Bacteria Radiology Impressions: Radiology Impressions Chest X-Ray 06/23/18 23:51 IMPRESSION: Bilateral lower lobe perihilar infiltrates are seen. The findings could represent CHF or pneumonia. The upper lobes are clear Chest X-Ray 06/24/18 05:00 IMPRESSION: No change in vascular congestion and perihilar infiltrates. Chest X-Ray 06/24/18 06:49 IMPRESSION: Bilateral perihilar infiltrates. The pattern is most consistent with CHF. Endotracheal tube in satisfactory position Chest X-Ray 06/24/18 08:04 IMPRESSION: There is a new right internal jugular line in the SVC with no pneumothorax. The study is otherwise unchanged Chest X-Ray 06/24/18 09:55 IMPRESSION: Nasogastric tube and endotracheal tube in satisfactory position. EKG/Cardiology Studies: Cardiology / EKG Studies 06/23/18 23:51 EKG [ELECTROCARDIOGRAM] Stat Comment: Reason For Exam: chest pain 06/24/18 09:19 EKG [ELECTROCARDIOGRAM] Stat Comment: Reason For Exam: tachcardi Critical Care Progress Note - Nutrition Nutrition: Nutrition Category Date Time Status Heart Healthy Diet [DIET] Diets 06/24/18 Dinner Active Attending/Attestation - Attestation I have personally seen and examined this patient.: Yes I have fully participated in the care of the patient.: Yes I have reviewed all pertinent clinical information: Yes Notes (Text): 06/24/18 12:58 The patient was seen and examined at the bedside. Patient care was discussed with resident Medical records, lab studies, and imaging were reviewed and management issues were discussed and formulated. Agree with above treatment plans as outlined in 's note with addition of the following: Acute Respiratory Failure \ Hypoxemia \ Septic Shock \ PNA \ COPD \ CHF \ CAD \ NSTEMI -hemodynamic monitoring to maintain MAP>65 -continue vasopressor support with levophed, phenylephrine and vasopressin -start stress steroids -f\u serial ECG and CE; continue ASA and plavix; cardiology eval appreciated -mechanical ventilation and o2 supplementation to maintain Spo2 >90 Pao2>60 -monitor for TV 6ml\kg IBW and plateau pressure <30 -continue nebs and pulmonary toilet -Abg and CXR reviewed -continue broad spectrum Abx and and f\u cultures -ID team eval -f\u Bun\Cr and U\o; start 1/2NS with 75meq Sodium bicarb for isotonic, low chloride fluid resuscitation in setting of sepsis -NPO and aspiration precautions -DVT \ PUD prophylaxis -DW family at bedside. Goals of care and advance directives discussed. -Palliation team eval CCM time 42min 06/24/18 13:02
[2018-06-24] MEDS ORDERED: Amiodarone 150 mg/D5W 100 ml 150 MG/100 ML BAG IVPB ONE (10:54)
[2018-06-24] MEDS ORDERED: Morphine 2 mg/ml ISec IVP PRN (11:03)
[2018-06-24 11:04] LABS: LYMPHOCYTE 8 % (22.0-35.0); NEUTROPHIL 60 % (50.0-70.0)
[2018-06-24 11:05] LABS: BAND 13 % (0-2); EOSINOPHIL 1 % (0.0-3.0); METAMYELOCYTE 3 %; MONOCYTE 14 % (1.0-6.0); MYELOCYTE 1 %
[2018-06-24 11:06] LABS: LARGE PLATELETS PRESENT
--- NOTE | 2018-06-24 11:09 | RAD ---
Date of service: 06/24/2018 HISTORY: ng tube placement COMPARISON: Earlier same day TECHNIQUE: 1 view obtained. FINDINGS: LUNGS: Bilateral infiltrates unchanged. PLEURA: No significant pleural effusion identified, no pneumothorax apparent. CARDIOVASCULAR: No aortic atherosclerotic calcification present. Normal cardiac size. No pulmonary vascular congestion. OSSEOUS STRUCTURES: No significant abnormalities. VISUALIZED UPPER ABDOMEN: Normal. OTHER FINDINGS: Right IJ line unchanged IMPRESSION: Nasogastric tube and endotracheal tube in satisfactory position.
[2018-06-24 11:29] LABS: VENOUS BLOOD GAS BASE EXCESS -15.1 mmol/L (0.0-2.0); VENOUS BLOOD GAS PO2 38 mm/Hg (30-55); VENOUS BLOOD PH 7.11 (7.32-7.43)
[2018-06-24] MEDS ORDERED: Magnesium Sulfate 1 gm in D5W 1 GM/100 ML BAG IVPB ONE (12:09)
--- NOTE | 2018-06-24 12:54 | CP.PCM.CON ---
<Fredrick Echevarria - Last Filed: 06/24/18 12:47> History of Present Illness - History of Present Illness History of Present Illness: Fredrick Echevarria D.O. PGY-3, Internal Medicine Resident, Infectious Disease Consultation Note 77-year-old male with a past medical history of CAD, COPD, prostate cancer status post brachii therapy, Parkinson's disease, Alzheimer's disease, peptic ulcer disease, diabetes type 2, recurrent urinary tract infections with sepsis who presented with shortness of breath for multiple hours. Infectious disease consultation was tested for pneumonia and sepsis. Patient was seen and examined in ICU bed 7. Patient was having worsening shortness of breath and was actively being intubated. Review of the chart provides most of the history as well as the overnight team. Patient is also noted as being nonverbal per the history. Patient resides in a [facility] and became acutely short of breath and then started shaking. Patient was recently in the ICU for ESBL in the urine and critical status. Patient is a former smoker. Has a history of closest the ostomy tube for a sending cholangitis that was removed last month as well as a repair and small bowel obstruction. Review of Systems - Review of Systems Systems not reviewed;Unavailable: Intubated Past Patient History - Infectious Disease Hx of Infectious Diseases: None - Past Social History Smoking Status: Never Smoked - CARDIAC Hx Pacemaker: No - PULMONARY Hx Chronic Obstructive Pulmonary Disease (COPD): Yes - NEUROLOGICAL Hx Paralysis: No - HEENT Hx HEENT Problems: No Hx Blind: No Hx Cataracts: No Hx Deafness: No Hx Difficulty Chewing: No Hx Epistaxis: No Hx Glaucoma: No Hx Macular Degeneration: No - RENAL Hx Renal Failure: Yes - ENDOCRINE/METABOLIC Hx Diabetes Mellitus Type 2: Yes Hx Hypothyroidism: Yes - HEMATOLOGICAL/ONCOLOGICAL Hx Blood Transfusions: Yes (06/20-06/25/2015- 5 UNITS) Hx Blood Transfusion Reaction: No - INTEGUMENTARY Hx Dermatological Problems: Yes Hx Basil Cell: No Hx Eczema: Yes Hx Melanoma: Yes Hx Psoriasis: No Hx Squamous Cell: No - MUSCULOSKELETAL/RHEUMATOLOGICAL Hx Falls: Yes - GASTROINTESTINAL Hx Gastroesophageal Reflux: Yes - GENITOURINARY/GYNECOLOGICAL Hx Hematuria: No Hx Incontinence: Yes Hx Prostate Problems: Yes Hx Sexually Transmitted Disorders: No Hx Urinary Tract Infection: Yes - PSYCHIATRIC Hx Substance Use: No - SURGICAL HISTORY Hx Mastectomy: No - ANESTHESIA Hx Anesthesia Reactions: No Hx Malignant Hyperthermia: No Meds Allergies/Adverse Reactions: Allergies Allergy/AdvReac Type Severity Reaction Status Date / Time ceftriaxone sodium Allergy Unknown RASH Verified 06/23/18 23:45 [From Rocephin] - Medications Medications: Current Medications Acetaminophen (Tylenol 325mg Tab) 650 mg PO Q6H PRN PRN Reason: Fever >100.4 F Albuterol/Ipratropium (Duoneb 3 Mg/0.5 Mg (3 Ml) Ud) 3 ml IH Q2H PRN PRN Reason: Shortness of Breath Albuterol/Ipratropium (Duoneb 3 Mg/0.5 Mg (3 Ml) Ud) 3 ml IH [id number] [facility]OLANDA Aspirin (Ecotrin) 81 mg PO DAILY [facility] Budesonide (Pulmicort Respules) 0.5 mg IH [id number] [facility]OLANDA Last Admin: 06/24/18 08:08 Dose: 0.5 mg Clopidogrel Bisulfate (Plavix) 75 mg PO DAILY [facility] Last Admin: 06/24/18 09:25 Dose: 75 mg Dextrose (Dextrose 50% Inj) 0 ml IV STAT PRN; Protocol PRN Reason: Hypoglycemia Protocol Enoxaparin Sodium (Lovenox) 40 mg SC DAILY [facility]; Protocol Last Admin: 06/24/18 09:24 Dose: 40 mg Hydrocortisone Sodium Succinate (Solu-Cortef) 100 mg IVP Q8 [facility]ANDA Last Admin: 06/24/18 12:20 Dose: 100 mg Dextrose (Dextrose 5% In Water 1000 Ml) 1,000 mls @ 0 mls/hr IV .Q0M PRN; Protocol PRN Reason: Hypoglycemia Protocol Acetaminophen (Ofirmev) 1,000 mg in 100 mls @ 400 mls/hr IVPB Q6H PRN PRN Reason: Temperature Stop: 06/26/18 03:45 Last Admin: 06/24/18 11:35 Dose: 400 mls/hr Phenylephrine HCl 40 mg/ (Sodium Chloride) 254 mls @ 38.1 mls/hr IV .Q6H40M PRN; Protocol PRN Reason: TITRATE PER MD ORDER Last Titration: 06/24/18 10:17 Dose: 270 mcg/min, 102.87 mls/hr Aztreonam (Azactam 2 Gm) 100 mls @ 100 mls/hr IVPB Q8 [facility]ANDA; Protocol Stop: 06/24/18 22:59 Vancomycin HCl (Vancomycin 1gm) 1 gm in 250 mls @ 167 mls/hr IVPB DAILY [facility]; Protocol Last Admin: 06/24/18 09:23 Dose: 167 mls/hr Dexmedetomidine HCl (Precedex 400mcg/100ml) 400 mcg in 100 mls @ 3.062 mls/hr IV .Q24H PRN; Protocol PRN Reason: Sedation Last Titration: 06/24/18 10:16 Dose: 0.4 mcg/kg/hr, 6.124 mls/hr NOREPINEPHRINE BIT/0.9 % NACL (Levophed 4 Mg/ 250 Ml Ns Premixed) 4 mg in 250 mls @ 15 mls/hr IV .[id number] PRN; Protocol PRN Reason: TITRATE PER MD ORDER Last Titration: 06/24/18 11:52 Dose: 12 mcg/min, 45 mls/hr Vasopressin 20 units/ Sodium (Chloride) 101 mls @ 9.09 mls/hr IV .Q11H7M YOLANDA; Protocol Magnesium Sulfate/Dextrose (Magnesium Sulfate 1 Gm/100 Ml D5w) 1 gm in 100 mls @ 100 mls/hr IVPB ONCE ONE Stop: 06/24/18 13:08 Sodium Bicarbonate 75 meq/ (Sodium Chloride) 1,000 mls @ 100 mls/hr IV .Q10H YOLANDA Insulin Human Regular (Humulin R Med) 0 units SC ACHS YOLANDA; Protocol Last Admin: 06/24/18 09:14 Dose: Not Given Morphine Sulfate (Morphine) 2 mg IVP Q3H PRN PRN Reason: Pain, severe (8-10) Nystatin (Nystop Topical Powder) 0 gm TOP Q6H [facility]DA Pantoprazole Sodium (Protonix Inj) 40 mg IVP DAILY [facility] Last Admin: 06/24/18 09:23 Dose: 40 mg Physical Exam - Constitutional Appears: Chronically Ill - Head Exam Head Exam: ATRAUMATIC, NORMOCEPHALIC - Eye Exam Eye Exam: EOMI. absent: Scleral icterus - ENT Exam Additional comments: intubated - Neck Exam Neck exam: Positive for: Normal Inspection - Respiratory Exam Respiratory Exam: absent: Rales, Rhonchi, Wheezes - Cardiovascular Exam Cardiovascular Exam: +S1, +S2. absent: Gallop, Rubs - GI/Abdominal Exam GI & Abdominal Exam: Normal Bowel Sounds, Soft - Extremities Exam Extremities exam: Negative for: calf tenderness, pedal edema - Neurological Exam Additional comments: intubated - Skin Skin Exam: Dry, Warm Results - Vital Signs Recent Vital Signs: Last Vital Signs Temp 101.1 F H 06/24/18 05:44 Pulse 127 H 06/24/18 07:00 Resp 37 H 06/24/18 08:24 BP 78/47 L 06/24/18 07:00 Pulse Ox 91 L 06/24/18 05:10 - Labs Result Diagrams: 06/24/18 09:30 06/24/18 09:30 Labs: Laboratory Results - last 24 hr 06/23/18 06/23/18 06/24/18 23:50 23:50 00:00 WBC 4.3 L D RBC 4.32 Hgb 13.0 L D Hct 39.7 L MCV 91.9 MCH 30.1 MCHC 32.7 RDW 16.8 H Plt Count 146 MPV 9.9 Neut % (Auto) 84.1 H Lymph % (Auto) 8.5 L [place] % (Auto) 7.2 H Eos % (Auto) 0.0 L Baso % (Auto) 0.2 Lymph # (Auto) 0.4 L [place] # (Auto) 0.3 Eos # (Auto) 0.0 Baso # (Auto) 0.01 Absolute Neuts (auto) 3.64 Neutrophils % (Manual) Band Neutrophils % Lymphocytes % (Manual) Monocytes % (Manual) Eosinophils % (Manual) Metamyelocytes % Myelocytes % Large Platelets pCO2 pO2 50 HCO3 ABG pH ABG Total CO2 ABG O2 Saturation ABG O2 Content ABG Base Excess ABG Hemoglobin ABG Carboxyhemoglobin POC ABG HHb (Measured) ABG Methemoglobin ABG O2 Capacity VBG pH 7.38 VBG pCO2 36.0 L VBG HCO3 21.3 VBG Total CO2 22.4 VBG O2 Sat (Calc) 82.2 H VBG Base Excess -3.3 L VBG Potassium 4.5 Hgb O2 Saturation Glucose 275 H Lactate 4.3 H* FiO2 21.0 Crit Value Called To Rn Crit Value Called By Rs Blood Gas Notified Time 9 Sodium 137 134.0 Potassium 4.9 Chloride 101 100.0 Carbon Dioxide 22 Anion Gap 19 BUN 43 H Creatinine 1.0 Est GFR ( Amer) > 60 Est GFR (Non-Af Amer) > 60 POC Glucose (mg/dL) Random Glucose 262 H Calcium 10.4 Phosphorus 3.8 Magnesium 1.9 Total Bilirubin 1.5 H AST 31 ALT 12 Alkaline Phosphatase 80 Lactate Dehydrogenase Total Creatine Kinase Troponin I NT-Pro-B Natriuret Pep Total Protein 6.6 Albumin 3.8 Globulin 2.8 Albumin/Globulin Ratio 1.3 Venous Blood Potassium 4.5 Urine Color Urine Appearance Urine pH Ur Specific [place] Urine Protein Urine Glucose (UA) Urine Ketones Urine Blood Urine Nitrate Urine Bilirubin Urine Urobilinogen Ur Leukocyte Esterase Urine RBC Urine WBC Ur Epithelial Cells Urine Bacteria 06/24/18 06/24/18 06/24/18 00:05 03:10 03:37 WBC RBC Hgb Hct MCV MCH MCHC RDW Plt Count MPV Neut % (Auto) Lymph % (Auto) [place] % (Auto) Eos % (Auto) Baso % (Auto) Lymph # (Auto) [place] # (Auto) Eos # (Auto) Baso # (Auto) Absolute Neuts (auto) Neutrophils % (Manual) Band Neutrophils % Lymphocytes % (Manual) Monocytes % (Manual) Eosinophils % (Manual) Metamyelocytes % Myelocytes % Large Platelets pCO2 pO2 21 L HCO3 ABG pH ABG Total CO2 ABG O2 Saturation ABG O2 Content ABG Base Excess ABG Hemoglobin ABG Carboxyhemoglobin POC ABG HHb (Measured) ABG Methemoglobin ABG O2 Capacity VBG pH 7.28 L VBG pCO2 43.0 VBG HCO3 20.2 L VBG Total CO2 21.5 L VBG O2 Sat (Calc) 22.8 L VBG Base Excess -6.4 L VBG Potassium 5.0 Hgb O2 Saturation Glucose 194 H Lactate 5.1 H* FiO2 21.0 Crit Value Called To Rn Crit Value Called By Rs Blood Gas Notified Time 322 Sodium 138.0 Potassium Chloride 109.0 H Carbon Dioxide Anion Gap BUN Creatinine Est GFR ( Amer) Est GFR (Non-Af Amer) POC Glucose (mg/dL) 160 H Random Glucose Calcium Phosphorus Magnesium Total Bilirubin AST ALT Alkaline Phosphatase Lactate Dehydrogenase Total Creatine Kinase Troponin I NT-Pro-B Natriuret Pep Total Protein Albumin Globulin Albumin/Globulin Ratio Venous Blood Potassium 5.0 Urine Color Dark yellow Urine Appearance Sl cloudy Urine pH 6.0 Ur Specific [place] >= 1.030 Urine Protein 30 H Urine Glucose (UA) 500 H Urine Ketones Trace H Urine Blood Large H Urine Nitrate Negative Urine Bilirubin Small H Urine Urobilinogen 0.2 Ur Leukocyte Esterase Moderate H Urine RBC 2 - 5 H Urine WBC 10 - 15 H Ur Epithelial Cells 0 - 2 Urine Bacteria Small 06/24/18 06/24/18 06/24/18 03:38 07:00 07:00 WBC RBC Hgb Hct MCV MCH MCHC RDW Plt Count MPV Neut % (Auto) Lymph % (Auto) [place] % (Auto) Eos % (Auto) Baso % (Auto) Lymph # (Auto) [place] # (Auto) Eos # (Auto) Baso # (Auto) Absolute Neuts (auto) Neutrophils % (Manual) Band Neutrophils % Lymphocytes % (Manual) Monocytes % (Manual) Eosinophils % (Manual) Metamyelocytes % Myelocytes % Large Platelets pCO2 pO2 40 HCO3 ABG pH ABG Total CO2 ABG O2 Saturation ABG O2 Content ABG Base Excess ABG Hemoglobin ABG Carboxyhemoglobin POC ABG HHb (Measured) ABG Methemoglobin ABG O2 Capacity VBG pH 7.18 L* VBG pCO2 48.0 VBG HCO3 17.9 L VBG Total CO2 19.4 L VBG O2 Sat (Calc) 67.5 H VBG Base Excess -10.4 L VBG Potassium 3.5 L Hgb O2 Saturation Glucose 125 H Lactate 4.5 H* FiO2 21.0 Crit Value Called To Praful empirial Crit Value Called By Es Blood Gas Notified Time 741 Sodium 142.0 Potassium Chloride 111.0 H Carbon Dioxide Anion Gap BUN Creatinine Est GFR ( Amer) Est GFR (Non-Af Amer) POC Glucose (mg/dL) Random Glucose Calcium Phosphorus Magnesium Total Bilirubin AST ALT Alkaline Phosphatase Lactate Dehydrogenase 397 Total Creatine Kinase 39 Troponin I 0.26 H* D NT-Pro-B Natriuret Pep 4220 H Total Protein Albumin Globulin Albumin/Globulin Ratio Venous Blood Potassium 3.5 L Urine Color Urine Appearance Urine pH Ur Specific [place] Urine Protein Urine Glucose (UA) Urine Ketones Urine Blood Urine Nitrate Urine Bilirubin Urine Urobilinogen Ur Leukocyte Esterase Urine RBC Urine WBC Ur Epithelial Cells Urine Bacteria 06/24/18 06/24/18 06/24/18 08:19 09:07 09:30 WBC RBC Hgb Hct MCV MCH MCHC RDW Plt Count MPV Neut % (Auto) Lymph % (Auto) [place] % (Auto) Eos % (Auto) Baso % (Auto) Lymph # (Auto) [place] # (Auto) Eos # (Auto) Baso # (Auto) Absolute Neuts (auto) Neutrophils % (Manual) Band Neutrophils % Lymphocytes % (Manual) Monocytes % (Manual) Eosinophils % (Manual) Metamyelocytes % Myelocytes % Large Platelets pCO2 30 L pO2 168.0 H HCO3 14.1 L ABG pH 7.28 L ABG Total CO2 15.0 L ABG O2 Saturation 99.8 H ABG O2 Content 14.8 L ABG Base Excess -11.4 L ABG Hemoglobin 10.6 L ABG Carboxyhemoglobin 2.1 H POC ABG HHb (Measured) 0.2 ABG Methemoglobin 1.1 ABG O2 Capacity 14.8 L VBG pH VBG pCO2 VBG HCO3 VBG Total CO2 VBG O2 Sat (Calc) VBG Base Excess VBG Potassium Hgb O2 Saturation 96.6 Glucose Lactate FiO2 100.0 Crit Value Called To Crit Value Called By Blood Gas Notified Time Sodium 140 Potassium 3.7 Chloride 113 H Carbon Dioxide 18 L Anion Gap 13 BUN 37 H Creatinine 1.0 Est GFR ( Amer) > 60 Est GFR (Non-Af Amer) > 60 POC Glucose (mg/dL) 103 Random Glucose 113 H Calcium 8.5 Phosphorus Magnesium 1.5 L Total Bilirubin 1.2 AST 32 ALT 16 Alkaline Phosphatase 55 Lactate Dehydrogenase 412 Total Creatine Kinase 169 Troponin I 2.67 H* D NT-Pro-B Natriuret Pep Total Protein 4.5 L Albumin 2.6 L Globulin 1.9 Albumin/Globulin Ratio 1.4 Venous Blood Potassium Urine Color Urine Appearance Urine pH Ur Specific [place] Urine Protein Urine Glucose (UA) Urine Ketones Urine Blood Urine Nitrate Urine Bilirubin Urine Urobilinogen Ur Leukocyte Esterase Urine RBC Urine WBC Ur Epithelial Cells Urine Bacteria 06/24/18 06/24/18 06/24/18 09:30 10:56 11:10 WBC 4.1 L RBC 3.50 Hgb 10.4 L D Hct 33.1 L MCV 94.6 MCH 29.7 MCHC 31.4 RDW 16.8 H Plt Count 105 L MPV 10.0 Neut % (Auto) 91.9 H Lymph % (Auto) 3.7 L [place] % (Auto) 4.2 Eos % (Auto) 0.2 L Baso % (Auto) 0.0 Lymph # (Auto) 0.2 L [place] # (Auto) 0.2 Eos # (Auto) 0.0 Baso # (Auto) 0.00 Absolute Neuts (auto) 3.75 Neutrophils % (Manual) 60 Band Neutrophils % 13 H* Lymphocytes % (Manual) 8 L Monocytes % (Manual) 14 H Eosinophils % (Manual) 1 Metamyelocytes % 3 Myelocytes % 1 Large Platelets Present pCO2 pO2 38 HCO3 ABG pH ABG Total CO2 ABG O2 Saturation ABG O2 Content ABG Base Excess ABG Hemoglobin ABG Carboxyhemoglobin POC ABG HHb (Measured) ABG Methemoglobin ABG O2 Capacity VBG pH 7.11 L* VBG pCO2 44.0 VBG HCO3 14.0 L VBG Total CO2 15.4 L VBG O2 Sat (Calc) 63.0 VBG Base Excess -15.1 L VBG Potassium 3.9 Hgb O2 Saturation Glucose 131 H Lactate 7.9 H* FiO2 21.0 Crit Value Called To Gaby rangel Crit Value Called By Blood Gas Notified Time 1129 Sodium 142.0 Potassium Chloride 108.0 H Carbon Dioxide Anion Gap BUN Creatinine Est GFR ( Amer) Est GFR (Non-Af Amer) POC Glucose (mg/dL) 123 H Random Glucose Calcium Phosphorus Magnesium Total Bilirubin AST ALT Alkaline Phosphatase Lactate Dehydrogenase Total Creatine Kinase Troponin I NT-Pro-B Natriuret Pep Total Protein Albumin Globulin Albumin/Globulin Ratio Venous Blood Potassium 3.9 Urine Color Urine Appearance Urine pH Ur Specific [place] Urine Protein Urine Glucose (UA) Urine Ketones Urine Blood Urine Nitrate Urine Bilirubin Urine Urobilinogen Ur Leukocyte Esterase Urine RBC Urine WBC Ur Epithelial Cells Urine Bacteria Assessment & Plan - Assessment and Plan (Free Text) Assessment: 77-year-old male with a past medical history of CAD, COPD, prostate cancer status post brachii therapy, Parkinson's disease, Alzheimer's disease, peptic ulcer disease, diabetes type 2, recurrent urinary tract infections with sepsis who presented with shortness of breath for multiple hours. Infectious disease consultation was tested for pneumonia and sepsis. Plan: Septic shock with SIRS 3/4 with fever, tachycardia, tachypnea and urine as a likely source CAD COPD Previous recurrent ESBL UTIs Prostate cancer status post brachytherapy Parkinson's disease Alzheimer's disease Peptic ulcer disease Diabetes type 2 In the ICU given his critical nature Blood cultures drawn Pro-calcitonin pending Urine appears of the likely source however cannot rule out hospital-acquired pneumonia Chest x-ray reviewed, shows bilateral perihilar infiltrates We will start the patient empirically on doxycycline/Merrem/vancomycin Does have a ceftriaxone allergy but has received meropenem in the past for his history of ESBL Critically ill with a very poor prognosis currently requiring vasopressor therapy We will follow along with you Patient was seen and examined and case to be discussed with attending physician Thank you for the pleasure participating in the care of this interesting patient - Date & Time Date: 06/24/18 Time: 07:15 <Padilla Goode - Last Filed: 06/24/18 16:38> Meds - Medications Medications: Current Medications Acetaminophen (Tylenol 325mg Tab) 650 mg PO Q6H PRN PRN Reason: Fever >100.4 F Albuterol/Ipratropium (Duoneb 3 Mg/0.5 Mg (3 Ml) Ud) 3 ml IH Q2H PRN PRN Reason: Shortness of Breath Albuterol/Ipratropium (Duoneb 3 Mg/0.5 Mg (3 Ml) Ud) 3 ml IH [id number] [facility] Last Admin: 06/24/18 13:38 Dose: 3 ml Aspirin (Ecotrin) 81 mg PO DAILY [facility] Last Admin: 06/24/18 12:59 Dose: 81 mg Budesonide (Pulmicort Respules) 0.5 mg IH [id number] [facility] Last Admin: 06/24/18 08:08 Dose: 0.5 mg Clopidogrel Bisulfate (Plavix) 75 mg PO DAILY [facility] Last Admin: 06/24/18 09:25 Dose: 75 mg Dextrose (Dextrose 50% Inj) 0 ml IV STAT PRN; Protocol PRN Reason: Hypoglycemia Protocol Enoxaparin Sodium (Lovenox) 40 mg SC DAILY [facility]; Protocol Last Admin: 06/24/18 09:24 Dose: 40 mg Hydrocortisone Sodium Succinate (Solu-Cortef) 100 mg IVP Q8 [facility] Last Admin: 06/24/18 13:46 Dose: Not Given Dextrose (Dextrose 5% In Water 1000 Ml) 1,000 mls @ 0 mls/hr IV .Q0M PRN; Protocol PRN Reason: Hypoglycemia Protocol Acetaminophen (Ofirmev) 1,000 mg in 100 mls @ 400 mls/hr IVPB Q6H PRN PRN Reason: Temperature Stop: 06/26/18 03:45 Last Admin: 06/24/18 11:35 Dose: 400 mls/hr Phenylephrine HCl 40 mg/ (Sodium Chloride) 254 mls @ 38.1 mls/hr IV .Q6H40M PRN; Protocol PRN Reason: TITRATE PER MD ORDER Last Titration: 06/24/18 15:16 Dose: 270 mcg/min, 102.87 mls/hr Dexmedetomidine HCl (Precedex 400mcg/100ml) 400 mcg in 100 mls @ 3.062 mls/hr IV .Q24H PRN; Protocol PRN Reason: Sedation Last Titration: 06/24/18 10:16 Dose: 0.4 mcg/kg/hr, 6.124 mls/hr NOREPINEPHRINE BIT/0.9 % NACL (Levophed 4 Mg/ 250 Ml Ns Premixed) 4 mg in 250 mls @ 15 mls/hr IV .[id number] PRN; Protocol PRN Reason: TITRATE PER MD ORDER Last Titration: 06/24/18 11:52 Dose: 12 mcg/min, 45 mls/hr Vasopressin 20 units/ Sodium (Chloride) 101 mls @ 9.09 mls/hr IV .Q11H7M [facility]OLANDA; Protocol Last Admin: 06/24/18 12:49 Dose: 9.09 mls/hr Doxycycline Hyclate 100 mg/ (Sodium Chloride) 100 mls @ 100 mls/hr IVPB Q12 [facility]OLANDA; Protocol Last Admin: 06/24/18 13:59 Dose: 100 mls/hr Meropenem (Merrem Iv 1 Gm Premix) 1 gm in 50 mls @ 12.5 mls/hr IVPB Q8 [facility]OLANDA; Protocol Stop: 07/01/18 14:01 Last Admin: 06/24/18 13:52 Dose: 12.5 mls/hr Vancomycin HCl (Vancomycin 1gm) 1 gm in 250 mls @ 167 mls/hr IVPB Q12H [facility]ANDA; Protocol Last Admin: 06/24/18 13:53 Dose: 167 mls/hr Sodium Bicarbonate 150 meq/ (Dextrose) 1,150 mls @ 100 mls/hr IV .[id number] YOLANDA Insulin Human Regular (Humulin R Med) 0 units SC ACHS [facility]DA; Protocol Last Admin: 06/24/18 13:01 Dose: Not Given Morphine Sulfate (Morphine) 2 mg IVP Q3H PRN PRN Reason: Pain, severe (8-10) Nystatin (Nystop Topical Powder) 0 gm TOP Q6H [facility] Last Admin: 06/24/18 14:00 Dose: 1 dose Pantoprazole Sodium (Protonix Inj) 40 mg IVP DAILY [facility] Last Admin: 06/24/18 09:23 Dose: 40 mg Results - Vital Signs Recent Vital Signs: Last Vital Signs Temp 101.1 F H 06/24/18 05:44 Pulse 127 H 06/24/18 07:00 Resp 37 H 06/24/18 08:24 BP 69/66 L 06/24/18 12:49 Pulse Ox 91 L 06/24/18 05:10 - Labs Result Diagrams: 06/24/18 09:30 06/24/18 09:30 Labs: Laboratory Results - last 24 hr 06/23/18 06/23/18 06/24/18 23:50 23:50 00:00 WBC 4.3 L D RBC 4.32 Hgb 13.0 L D Hct 39.7 L MCV 91.9 MCH 30.1 MCHC 32.7 RDW 16.8 H Plt Count 146 MPV 9.9 Neut % (Auto) 84.1 H Lymph % (Auto) 8.5 L [place] % (Auto) 7.2 H Eos % (Auto) 0.0 L Baso % (Auto) 0.2 Lymph # (Auto) 0.4 L [place] # (Auto) 0.3 Eos # (Auto) 0.0 Baso # (Auto) 0.01 Absolute Neuts (auto) 3.64 Neutrophils % (Manual) Band Neutrophils % Lymphocytes % (Manual) Monocytes % (Manual) Eosinophils % (Manual) Metamyelocytes % Myelocytes % Large Platelets pCO2 pO2 50 HCO3 ABG pH ABG Total CO2 ABG O2 Saturation ABG O2 Content ABG Base Excess ABG Hemoglobin ABG Carboxyhemoglobin POC ABG HHb (Measured) ABG Methemoglobin ABG O2 Capacity VBG pH 7.38 VBG pCO2 36.0 L VBG HCO3 21.3 VBG Total CO2 22.4 VBG O2 Sat (Calc) 82.2 H VBG Base Excess -3.3 L VBG Potassium 4.5 Hgb O2 Saturation Glucose 275 H Lactate 4.3 H* FiO2 21.0 Crit Value Called To Rn Crit Value Called By Rs Blood Gas Notified Time 9 Sodium 137 134.0 Potassium 4.9 Chloride 101 100.0 Carbon Dioxide 22 Anion Gap 19 BUN 43 H Creatinine 1.0 Est GFR ( Amer) > 60 Est GFR (Non-Af Amer) > 60 POC Glucose (mg/dL) Random Glucose 262 H Calcium 10.4 Phosphorus 3.8 Magnesium 1.9 Total Bilirubin 1.5 H AST 31 ALT 12 Alkaline Phosphatase 80 Lactate Dehydrogenase Total Creatine Kinase CK-MB (CK-2) CK-MB (CK-2) % Troponin I NT-Pro-B Natriuret Pep Total Protein 6.6 Albumin 3.8 Globulin 2.8 Albumin/Globulin Ratio 1.3 Procalcitonin Venous Blood Potassium 4.5 Urine Color Urine Appearance Urine pH Ur Specific [place] Urine Protein Urine Glucose (UA) Urine Ketones Urine Blood Urine Nitrate Urine Bilirubin Urine Urobilinogen Ur Leukocyte Esterase Urine RBC Urine WBC Ur Epithelial Cells Urine Bacteria 06/24/18 06/24/18 06/24/18 00:05 03:10 03:37 WBC RBC Hgb Hct MCV MCH MCHC RDW Plt Count MPV Neut % (Auto) Lymph % (Auto) [place] % (Auto) Eos % (Auto) Baso % (Auto) Lymph # (Auto) [place] # (Auto) Eos # (Auto) Baso # (Auto) Absolute Neuts (auto) Neutrophils % (Manual) Band Neutrophils % Lymphocytes % (Manual) Monocytes % (Manual) Eosinophils % (Manual) Metamyelocytes % Myelocytes % Large Platelets pCO2 pO2 21 L HCO3 ABG pH ABG Total CO2 ABG O2 Saturation ABG O2 Content ABG Base Excess ABG Hemoglobin ABG Carboxyhemoglobin POC ABG HHb (Measured) ABG Methemoglobin ABG O2 Capacity VBG pH 7.28 L VBG pCO2 43.0 VBG HCO3 20.2 L VBG Total CO2 21.5 L VBG O2 Sat (Calc) 22.8 L VBG Base Excess -6.4 L VBG Potassium 5.0 Hgb O2 Saturation Glucose 194 H Lactate 5.1 H* FiO2 21.0 Crit Value Called To Rn Crit Value Called By Rs Blood Gas Notified Time 322 Sodium 138.0 Potassium Chloride 109.0 H Carbon Dioxide Anion Gap BUN Creatinine Est GFR ( Amer) Est GFR (Non-Af Amer) POC Glucose (mg/dL) 160 H Random Glucose Calcium Phosphorus Magnesium Total Bilirubin AST ALT Alkaline Phosphatase Lactate Dehydrogenase Total Creatine Kinase CK-MB (CK-2) CK-MB (CK-2) % Troponin I NT-Pro-B Natriuret Pep Total Protein Albumin Globulin Albumin/Globulin Ratio Procalcitonin Venous Blood Potassium 5.0 Urine Color Dark yellow Urine Appearance Sl cloudy Urine pH 6.0 Ur Specific [place] >= 1.030 Urine Protein 30 H Urine Glucose (UA) 500 H Urine Ketones Trace H Urine Blood Large H Urine Nitrate Negative Urine Bilirubin Small H Urine Urobilinogen 0.2 Ur Leukocyte Esterase Moderate H Urine RBC 2 - 5 H Urine WBC 10 - 15 H Ur Epithelial Cells 0 - 2 Urine Bacteria Small 06/24/18 06/24/18 06/24/18 03:38 03:38 07:00 WBC RBC Hgb Hct MCV MCH MCHC RDW Plt Count MPV Neut % (Auto) Lymph % (Auto) [place] % (Auto) Eos % (Auto) Baso % (Auto) Lymph # (Auto) [place] # (Auto) Eos # (Auto) Baso # (Auto) Absolute Neuts (auto) Neutrophils % (Manual) Band Neutrophils % Lymphocytes % (Manual) Monocytes % (Manual) Eosinophils % (Manual) Metamyelocytes % Myelocytes % Large Platelets pCO2 pO2 40 HCO3 ABG pH ABG Total CO2 ABG O2 Saturation ABG O2 Content ABG Base Excess ABG Hemoglobin ABG Carboxyhemoglobin POC ABG HHb (Measured) ABG Methemoglobin ABG O2 Capacity VBG pH 7.18 L* VBG pCO2 48.0 VBG HCO3 17.9 L VBG Total CO2 19.4 L VBG O2 Sat (Calc) 67.5 H VBG Base Excess -10.4 L VBG Potassium 3.5 L Hgb O2 Saturation Glucose 125 H Lactate 4.5 H* FiO2 21.0 Crit Value Called To Praful empirial Crit Value Called By Es Blood Gas Notified Time 741 Sodium 142.0 Potassium Chloride 111.0 H Carbon Dioxide Anion Gap BUN Creatinine Est GFR ( Amer) Est GFR (Non-Af Amer) POC Glucose (mg/dL) Random Glucose Calcium Phosphorus Magnesium Total Bilirubin AST ALT Alkaline Phosphatase Lactate Dehydrogenase 397 Total Creatine Kinase 39 CK-MB (CK-2) CK-MB (CK-2) % Troponin I 0.26 H* D NT-Pro-B Natriuret Pep Total Protein Albumin Globulin Albumin/Globulin Ratio Procalcitonin 6.31 H Venous Blood Potassium 3.5 L Urine Color Urine Appearance Urine pH Ur Specific [place] Urine Protein Urine Glucose (UA) Urine Ketones Urine Blood Urine Nitrate Urine Bilirubin Urine Urobilinogen Ur Leukocyte Esterase Urine RBC Urine WBC Ur Epithelial Cells Urine Bacteria 06/24/18 06/24/18 06/24/18 07:00 08:19 09:07 WBC RBC Hgb Hct MCV MCH MCHC RDW Plt Count MPV Neut % (Auto) Lymph % (Auto) [place] % (Auto) Eos % (Auto) Baso % (Auto) Lymph # (Auto) [place] # (Auto) Eos # (Auto) Baso # (Auto) Absolute Neuts (auto) Neutrophils % (Manual) Band Neutrophils % Lymphocytes % (Manual) Monocytes % (Manual) Eosinophils % (Manual) Metamyelocytes % Myelocytes % Large Platelets pCO2 30 L pO2 168.0 H HCO3 14.1 L ABG pH 7.28 L ABG Total CO2 15.0 L ABG O2 Saturation 99.8 H ABG O2 Content 14.8 L ABG Base Excess -11.4 L ABG Hemoglobin 10.6 L ABG Carboxyhemoglobin 2.1 H POC ABG HHb (Measured) 0.2 ABG Methemoglobin 1.1 ABG O2 Capacity 14.8 L VBG pH VBG pCO2 VBG HCO3 VBG Total CO2 VBG O2 Sat (Calc) VBG Base Excess VBG Potassium Hgb O2 Saturation 96.6 Glucose Lactate FiO2 100.0 Crit Value Called To Crit Value Called By Blood Gas Notified Time Sodium Potassium Chloride Carbon Dioxide Anion Gap BUN Creatinine Est GFR ( Amer) Est GFR (Non-Af Amer) POC Glucose (mg/dL) 103 Random Glucose Calcium Phosphorus Magnesium Total Bilirubin AST ALT Alkaline Phosphatase Lactate Dehydrogenase Total Creatine Kinase CK-MB (CK-2) CK-MB (CK-2) % Troponin I NT-Pro-B Natriuret Pep 4220 H Total Protein Albumin Globulin Albumin/Globulin Ratio Procalcitonin Venous Blood Potassium Urine Color Urine Appearance Urine pH Ur Specific [place] Urine Protein Urine Glucose (UA) Urine Ketones Urine Blood Urine Nitrate Urine Bilirubin Urine Urobilinogen Ur Leukocyte Esterase Urine RBC Urine WBC Ur Epithelial Cells Urine Bacteria 04/05/19 04/05/19 04/05/19 09:30 09:30 10:56 WBC 4.1 L RBC 3.50 Hgb 10.4 L D Hct 33.1 L MCV 94.6 MCH 29.7 MCHC 31.4 RDW 16.8 H Plt Count 105 L MPV 10.0 Neut % (Auto) 91.9 H Lymph % (Auto) 3.7 L [place] % (Auto) 4.2 Eos % (Auto) 0.2 L Baso % (Auto) 0.0 Lymph # (Auto) 0.2 L [place] # (Auto) 0.2 Eos # (Auto) 0.0 Baso # (Auto) 0.00 Absolute Neuts (auto) 3.75 Neutrophils % (Manual) 60 Band Neutrophils % 13 H* Lymphocytes % (Manual) 8 L Monocytes % (Manual) 14 H Eosinophils % (Manual) 1 Metamyelocytes % 3 Myelocytes % 1 Large Platelets Present pCO2 pO2 HCO3 ABG pH ABG Total CO2 ABG O2 Saturation ABG O2 Content ABG Base Excess ABG Hemoglobin ABG Carboxyhemoglobin POC ABG HHb (Measured) ABG Methemoglobin ABG O2 Capacity VBG pH VBG pCO2 VBG HCO3 VBG Total CO2 VBG O2 Sat (Calc) VBG Base Excess VBG Potassium Hgb O2 Saturation Glucose Lactate FiO2 Crit Value Called To Crit Value Called By Blood Gas Notified Time Sodium 140 Potassium 3.7 Chloride 113 H Carbon Dioxide 18 L Anion Gap 13 BUN 37 H Creatinine 1.0 Est GFR ( Amer) > 60 Est GFR (Non-Af Amer) > 60 POC Glucose (mg/dL) 123 H Random Glucose 113 H Calcium 8.5 Phosphorus Magnesium 1.5 L Total Bilirubin 1.2 AST 32 ALT 16 Alkaline Phosphatase 55 Lactate Dehydrogenase 412 Total Creatine Kinase 169 CK-MB (CK-2) CK-MB (CK-2) % Troponin I 2.67 H* D NT-Pro-B Natriuret Pep Total Protein 4.5 L Albumin 2.6 L Globulin 1.9 Albumin/Globulin Ratio 1.4 Procalcitonin Venous Blood Potassium Urine Color Urine Appearance Urine pH Ur Specific [place] Urine Protein Urine Glucose (UA) Urine Ketones Urine Blood Urine Nitrate Urine Bilirubin Urine Urobilinogen Ur Leukocyte Esterase Urine RBC Urine WBC Ur Epithelial Cells Urine Bacteria 0406/24/18 06/24/18 11:10 15:05 15:05 WBC RBC Hgb Hct MCV MCH MCHC RDW Plt Count MPV Neut % (Auto) Lymph % (Auto) [place] % (Auto) Eos % (Auto) Baso % (Auto) Lymph # (Auto) [place] # (Auto) Eos # (Auto) Baso # (Auto) Absolute Neuts (auto) Neutrophils % (Manual) Band Neutrophils % Lymphocytes % (Manual) Monocytes % (Manual) Eosinophils % (Manual) Metamyelocytes % Myelocytes % Large Platelets pCO2 pO2 38 73 H HCO3 ABG pH ABG Total CO2 ABG O2 Saturation ABG O2 Content ABG Base Excess ABG Hemoglobin ABG Carboxyhemoglobin POC ABG HHb (Measured) ABG Methemoglobin ABG O2 Capacity VBG pH 7.11 L* 6.87 L* VBG pCO2 44.0 40.0 VBG HCO3 14.0 L 7.3 L VBG Total CO2 15.4 L 8.5 L VBG O2 Sat (Calc) 63.0 89.0 H VBG Base Excess -15.1 L -25.8 L VBG Potassium 3.9 7.4 H* Hgb O2 Saturation Glucose 131 H 47 L Lactate 7.9 H* 12.8 H* FiO2 21.0 21.0 Crit Value Called To Gaby Solorio Crit Value Called By Kajal Ab Blood Gas Notified Time 1129 1513 Sodium 142.0 139.0 Potassium Chloride 108.0 H 108.0 H Carbon Dioxide Anion Gap BUN Creatinine Est GFR ( Amer) Est GFR (Non-Af Amer) POC Glucose (mg/dL) Random Glucose Calcium Phosphorus Magnesium Total Bilirubin AST ALT Alkaline Phosphatase Lactate Dehydrogenase 3187 H Total Creatine Kinase 1330 H CK-MB (CK-2) 196.0 H CK-MB (CK-2) % 14.7 H Troponin I 57.00 H* D NT-Pro-B Natriuret Pep Total Protein Albumin Globulin Albumin/Globulin Ratio Procalcitonin Venous Blood Potassium 3.9 7.4 H* Urine Color Urine Appearance Urine pH Ur Specific [place] Urine Protein Urine Glucose (UA) Urine Ketones Urine Blood Urine Nitrate Urine Bilirubin Urine Urobilinogen Ur Leukocyte Esterase Urine RBC Urine WBC Ur Epithelial Cells Urine Bacteria Attending/Attestation - Attestation I have personally seen and examined this patient.: Yes I have fully participated in the care of the patient.: Yes I have reviewed all pertinent clinical information: Yes
[2018-06-24] MEDS: Albuterol-Ipratrop 3 mg / 0.5 (3 ml) UD IH SCH ×2 (13:38→20:45)
[2018-06-24] MEDS: Meropenem IV 1 gm in NS 1 GM/50 ML BAG IVPB SCH ×2 (13:52→21:46)
[2018-06-24] MEDS ORDERED: Aztreonam 2 Gm in NS 100mL 100 ML IVPB SCH (14:00)
[2018-06-24] MEDS: Nystatin 100,000 Units/gm Topical Pow(15 gm) TOP SCH ×3 (14:00→22:22)
--- NOTE | 2018-06-24 15:06 | CP.PCM.CON ---
History of Present Illness - History of Present Illness History of Present Illness: Palliative consult requested by Dr Theresa Nicholson Reason:Goals of care 77 male with history of triple vessel disease, COPD and urosepsis who presented on 06/23 with shortness of breath and shaking chills. Patient resides in [facility]. The patient was recently discharged from [facility] [place] [place] after being treated for ESBL in the urine. Chest x ray showed bilateral lower lobe perihilar infiltrates. Labs 06/23: Wbc 4.3, Hgb 13.0, Plt 146, Na 137, K 4.9, BUN 43, Cone Baker Machine 1.0, T Bili 1.5 Troponin 0.26, procalcitonin 6.31 Lactic acid 4.3 EKG: ST, NS ST/T wave abnormality PMH:COPD, CAD,r NSTEMI , DM2, peptic ulcer disease, prostate cancer s/p brachytherapy, Parkinson's disease, Alzheimer dementia. PSHx: Cholecystostomy tube for ascending colangitis, tube removed last month. Umbilical hernia repair, small bowel obstruction and resection Social History: Former cigar/pipe smoker, no alcohol or drug use. Resident of [facility]. Family History: Mother> ovarian cancer. Father> AAA Advance Care Planning: The patient has a POLST, his Elyse Matthew is his POA Review of Systems: As per HPI, patient is intubated unable to obtain Past Patient History - Infectious Disease Hx of Infectious Diseases: None - Past Social History Smoking Status: Never Smoked - CARDIAC Hx Pacemaker: No - PULMONARY Hx Chronic Obstructive Pulmonary Disease (COPD): Yes - NEUROLOGICAL Hx Paralysis: No - HEENT Hx HEENT Problems: No Hx Blind: No Hx Cataracts: No Hx Deafness: No Hx Difficulty Chewing: No Hx Epistaxis: No Hx Glaucoma: No Hx Macular Degeneration: No - RENAL Hx Renal Failure: Yes - ENDOCRINE/METABOLIC Hx Diabetes Mellitus Type 2: Yes Hx Hypothyroidism: Yes - HEMATOLOGICAL/ONCOLOGICAL Hx Blood Transfusions: Yes (06/20-06/25/2015- 5 UNITS) Hx Blood Transfusion Reaction: No - INTEGUMENTARY Hx Dermatological Problems: Yes Hx Basil Cell: No Hx Eczema: Yes Hx Melanoma: Yes Hx Psoriasis: No Hx Squamous Cell: No - MUSCULOSKELETAL/RHEUMATOLOGICAL Hx Falls: Yes - GASTROINTESTINAL Hx Gastroesophageal Reflux: Yes - GENITOURINARY/GYNECOLOGICAL Hx Hematuria: No Hx Incontinence: Yes Hx Prostate Problems: Yes Hx Sexually Transmitted Disorders: No Hx Urinary Tract Infection: Yes - PSYCHIATRIC Hx Substance Use: No - SURGICAL HISTORY Hx Mastectomy: No - ANESTHESIA Hx Anesthesia Reactions: No Hx Malignant Hyperthermia: No Meds Allergies/Adverse Reactions: Allergies Allergy/AdvReac Type Severity Reaction Status Date / Time ceftriaxone sodium Allergy Unknown RASH Verified 06/23/18 23:45 [From Rocephin] - Medications Medications: Current Medications Acetaminophen (Tylenol 325mg Tab) 650 mg PO Q6H PRN PRN Reason: Fever >100.4 F Albuterol/Ipratropium (Duoneb 3 Mg/0.5 Mg (3 Ml) Ud) 3 ml IH Q2H PRN PRN Reason: Shortness of Breath Albuterol/Ipratropium (Duoneb 3 Mg/0.5 Mg (3 Ml) Ud) 3 ml IH [id number] [facility] Last Admin: 06/24/18 13:38 Dose: 3 ml Aspirin (Ecotrin) 81 mg PO DAILY [facility] Last Admin: 06/24/18 12:59 Dose: 81 mg Budesonide (Pulmicort Respules) 0.5 mg IH [id number] [facility] Last Admin: 06/24/18 08:08 Dose: 0.5 mg Clopidogrel Bisulfate (Plavix) 75 mg PO DAILY [facility] Last Admin: 06/24/18 09:25 Dose: 75 mg Dextrose (Dextrose 50% Inj) 0 ml IV STAT PRN; Protocol PRN Reason: Hypoglycemia Protocol Enoxaparin Sodium (Lovenox) 40 mg SC DAILY [facility]; Protocol Last Admin: 06/24/18 09:24 Dose: 40 mg Hydrocortisone Sodium Succinate (Solu-Cortef) 100 mg IVP Q8 [facility] Last Admin: 06/24/18 13:46 Dose: Not Given Dextrose (Dextrose 5% In Water 1000 Ml) 1,000 mls @ 0 mls/hr IV .Q0M PRN; Protocol PRN Reason: Hypoglycemia Protocol Acetaminophen (Ofirmev) 1,000 mg in 100 mls @ 400 mls/hr IVPB Q6H PRN PRN Reason: Temperature Stop: 06/26/18 03:45 Last Admin: 06/24/18 11:35 Dose: 400 mls/hr Phenylephrine HCl 40 mg/ (Sodium Chloride) 254 mls @ 38.1 mls/hr IV .Q6H40M PRN; Protocol PRN Reason: TITRATE PER MD ORDER Last Admin: 06/24/18 12:45 Dose: 270 mcg/min, 102.87 mls/hr Dexmedetomidine HCl (Precedex 400mcg/100ml) 400 mcg in 100 mls @ 3.062 mls/hr IV .Q24H PRN; Protocol PRN Reason: Sedation Last Titration: 06/24/18 10:16 Dose: 0.4 mcg/kg/hr, 6.124 mls/hr NOREPINEPHRINE BIT/0.9 % NACL (Levophed 4 Mg/ 250 Ml Ns Premixed) 4 mg in 250 mls @ 15 mls/hr IV .[id number] PRN; Protocol PRN Reason: TITRATE PER MD ORDER Last Titration: 06/24/18 11:52 Dose: 12 mcg/min, 45 mls/hr Vasopressin 20 units/ Sodium (Chloride) 101 mls @ 9.09 mls/hr IV .Q11H7M [facility]ANDA; Protocol Last Admin: 06/24/18 12:49 Dose: 9.09 mls/hr Sodium Bicarbonate 75 meq/ (Sodium Chloride) 1,000 mls @ 100 mls/hr IV .Q10H [facility]ANDA Last Admin: 06/24/18 12:49 Dose: 100 mls/hr Doxycycline Hyclate 100 mg/ (Sodium Chloride) 100 mls @ 100 mls/hr IVPB Q12 SC H; Protocol Last Admin: 06/24/18 13:59 Dose: 100 mls/hr Meropenem (Merrem Iv 1 Gm Premix) 1 gm in 50 mls @ 12.5 mls/hr IVPB Q8 YOLANDA; Protocol Stop: 07/01/18 14:01 Last Admin: 06/24/18 13:52 Dose: 12.5 mls/hr Vancomycin HCl (Vancomycin 1gm) 1 gm in 250 mls @ 167 mls/hr IVPB Q12H [facility]OLANDA; Protocol Last Admin: 06/24/18 13:53 Dose: 167 mls/hr Insulin Human Regular (Humulin R Med) 0 units SC ACHS [facility]ANDA; Protocol Last Admin: 06/24/18 13:01 Dose: Not Given Morphine Sulfate (Morphine) 2 mg IVP Q3H PRN PRN Reason: Pain, severe (8-10) Nystatin (Nystop Topical Powder) 0 gm TOP Q6H [facility] Last Admin: 06/24/18 14:00 Dose: 1 dose Pantoprazole Sodium (Protonix Inj) 40 mg IVP DAILY [facility] Last Admin: 06/24/18 09:23 Dose: 40 mg Physical Exam - Constitutional Appears: Chronically Ill - Eye Exam Eye Exam: Normal appearance, PERRL - Respiratory Exam Respiratory Exam: Decreased Breath Sounds - Cardiovascular Exam Cardiovascular Exam: Irregular Rhythm, +S1, +S2 - GI/Abdominal Exam GI & Abdominal Exam: Hypoactive Bowel Sounds, Soft - Extremities Exam Extremities exam: Positive for: pedal pulses present - Neurological Exam Neurological exam: Altered - Skin Skin Exam: Dry, Pallor, Warm - Additional Findings Additional findings: Palliative performance scale rating 10% Results - Vital Signs Recent Vital Signs: Last Vital Signs Temp 101.1 F H 06/24/18 05:44 Pulse 127 H 06/24/18 07:00 Resp 37 H 06/24/18 08:24 BP 69/66 L 06/24/18 12:49 Pulse Ox 91 L 06/24/18 05:10 - Labs Result Diagrams: 06/24/18 09:30 06/24/18 09:30 Labs: Laboratory Results - last 24 hr 06/23/18 06/23/18 06/24/18 23:50 23:50 00:00 WBC 4.3 L D RBC 4.32 Hgb 13.0 L D Hct 39.7 L MCV 91.9 MCH 30.1 MCHC 32.7 RDW 16.8 H Plt Count 146 MPV 9.9 Neut % (Auto) 84.1 H Lymph % (Auto) 8.5 L [place] % (Auto) 7.2 H Eos % (Auto) 0.0 L Baso % (Auto) 0.2 Lymph # (Auto) 0.4 L [place] # (Auto) 0.3 Eos # (Auto) 0.0 Baso # (Auto) 0.01 Absolute Neuts (auto) 3.64 Neutrophils % (Manual) Band Neutrophils % Lymphocytes % (Manual) Monocytes % (Manual) Eosinophils % (Manual) Metamyelocytes % Myelocytes % Large Platelets pCO2 pO2 50 HCO3 ABG pH ABG Total CO2 ABG O2 Saturation ABG O2 Content ABG Base Excess ABG Hemoglobin ABG Carboxyhemoglobin POC ABG HHb (Measured) ABG Methemoglobin ABG O2 Capacity VBG pH 7.38 VBG pCO2 36.0 L VBG HCO3 21.3 VBG Total CO2 22.4 VBG O2 Sat (Calc) 82.2 H VBG Base Excess -3.3 L VBG Potassium 4.5 Hgb O2 Saturation Glucose 275 H Lactate 4.3 H* FiO2 21.0 Crit Value Called To Rn Crit Value Called By Rs Blood Gas Notified Time 9 Sodium 137 134.0 Potassium 4.9 Chloride 101 100.0 Carbon Dioxide 22 Anion Gap 19 BUN 43 H Creatinine 1.0 Est GFR ( Amer) > 60 Est GFR (Non-Af Amer) > 60 POC Glucose (mg/dL) Random Glucose 262 H Calcium 10.4 Phosphorus 3.8 Magnesium 1.9 Total Bilirubin 1.5 H AST 31 ALT 12 Alkaline Phosphatase 80 Lactate Dehydrogenase Total Creatine Kinase Troponin I NT-Pro-B Natriuret Pep Total Protein 6.6 Albumin 3.8 Globulin 2.8 Albumin/Globulin Ratio 1.3 Procalcitonin Venous Blood Potassium 4.5 Urine Color Urine Appearance Urine pH Ur Specific [place] Urine Protein Urine Glucose (UA) Urine Ketones Urine Blood Urine Nitrate Urine Bilirubin Urine Urobilinogen Ur Leukocyte Esterase Urine RBC Urine WBC Ur Epithelial Cells Urine Bacteria 06/24/18 06/24/18 06/24/18 00:05 03:10 03:37 WBC RBC Hgb Hct MCV MCH MCHC RDW Plt Count MPV Neut % (Auto) Lymph % (Auto) [place] % (Auto) Eos % (Auto) Baso % (Auto) Lymph # (Auto) [place] # (Auto) Eos # (Auto) Baso # (Auto) Absolute Neuts (auto) Neutrophils % (Manual) Band Neutrophils % Lymphocytes % (Manual) Monocytes % (Manual) Eosinophils % (Manual) Metamyelocytes % Myelocytes % Large Platelets pCO2 pO2 21 L HCO3 ABG pH ABG Total CO2 ABG O2 Saturation ABG O2 Content ABG Base Excess ABG Hemoglobin ABG Carboxyhemoglobin POC ABG HHb (Measured) ABG Methemoglobin ABG O2 Capacity VBG pH 7.28 L VBG pCO2 43.0 VBG HCO3 20.2 L VBG Total CO2 21.5 L VBG O2 Sat (Calc) 22.8 L VBG Base Excess -6.4 L VBG Potassium 5.0 Hgb O2 Saturation Glucose 194 H Lactate 5.1 H* FiO2 21.0 Crit Value Called To Rn Crit Value Called By Rs Blood Gas Notified Time 322 Sodium 138.0 Potassium Chloride 109.0 H Carbon Dioxide Anion Gap BUN Creatinine Est GFR ( Amer) Est GFR (Non-Af Amer) POC Glucose (mg/dL) 160 H Random Glucose Calcium Phosphorus Magnesium Total Bilirubin AST ALT Alkaline Phosphatase Lactate Dehydrogenase Total Creatine Kinase Troponin I NT-Pro-B Natriuret Pep Total Protein Albumin Globulin Albumin/Globulin Ratio Procalcitonin Venous Blood Potassium 5.0 Urine Color Dark yellow Urine Appearance Sl cloudy Urine pH 6.0 Ur Specific [place] >= 1.030 Urine Protein 30 H Urine Glucose (UA) 500 H Urine Ketones Trace H Urine Blood Large H Urine Nitrate Negative Urine Bilirubin Small H Urine Urobilinogen 0.2 Ur Leukocyte Esterase Moderate H Urine RBC 2 - 5 H Urine WBC 10 - 15 H Ur Epithelial Cells 0 - 2 Urine Bacteria Small 06/24/18 06/24/18 06/24/18 03:38 03:38 07:00 WBC RBC Hgb Hct MCV MCH MCHC RDW Plt Count MPV Neut % (Auto) Lymph % (Auto) [place] % (Auto) Eos % (Auto) Baso % (Auto) Lymph # (Auto) [place] # (Auto) Eos # (Auto) Baso # (Auto) Absolute Neuts (auto) Neutrophils % (Manual) Band Neutrophils % Lymphocytes % (Manual) Monocytes % (Manual) Eosinophils % (Manual) Metamyelocytes % Myelocytes % Large Platelets pCO2 pO2 40 HCO3 ABG pH ABG Total CO2 ABG O2 Saturation ABG O2 Content ABG Base Excess ABG Hemoglobin ABG Carboxyhemoglobin POC ABG HHb (Measured) ABG Methemoglobin ABG O2 Capacity VBG pH 7.18 L* VBG pCO2 48.0 VBG HCO3 17.9 L VBG Total CO2 19.4 L VBG O2 Sat (Calc) 67.5 H VBG Base Excess -10.4 L VBG Potassium 3.5 L Hgb O2 Saturation Glucose 125 H Lactate 4.5 H* FiO2 21.0 Crit Value Called To Praful empirial Crit Value Called By Es Blood Gas Notified Time 741 Sodium 142.0 Potassium Chloride 111.0 H Carbon Dioxide Anion Gap BUN Creatinine Est GFR ( Amer) Est GFR (Non-Af Amer) POC Glucose (mg/dL) Random Glucose Calcium Phosphorus Magnesium Total Bilirubin AST ALT Alkaline Phosphatase Lactate Dehydrogenase 397 Total Creatine Kinase 39 Troponin I 0.26 H* D NT-Pro-B Natriuret Pep Total Protein Albumin Globulin Albumin/Globulin Ratio Procalcitonin 6.31 H Venous Blood Potassium 3.5 L Urine Color Urine Appearance Urine pH Ur Specific [place] Urine Protein Urine Glucose (UA) Urine Ketones Urine Blood Urine Nitrate Urine Bilirubin Urine Urobilinogen Ur Leukocyte Esterase Urine RBC Urine WBC Ur Epithelial Cells Urine Bacteria 06/24/18 06/24/18 06/24/18 07:00 08:19 09:07 WBC RBC Hgb Hct MCV MCH MCHC RDW Plt Count MPV Neut % (Auto) Lymph % (Auto) [place] % (Auto) Eos % (Auto) Baso % (Auto) Lymph # (Auto) [place] # (Auto) Eos # (Auto) Baso # (Auto) Absolute Neuts (auto) Neutrophils % (Manual) Band Neutrophils % Lymphocytes % (Manual) Monocytes % (Manual) Eosinophils % (Manual) Metamyelocytes % Myelocytes % Large Platelets pCO2 30 L pO2 168.0 H HCO3 14.1 L ABG pH 7.28 L ABG Total CO2 15.0 L ABG O2 Saturation 99.8 H ABG O2 Content 14.8 L ABG Base Excess -11.4 L ABG Hemoglobin 10.6 L ABG Carboxyhemoglobin 2.1 H POC ABG HHb (Measured) 0.2 ABG Methemoglobin 1.1 ABG O2 Capacity 14.8 L VBG pH VBG pCO2 VBG HCO3 VBG Total CO2 VBG O2 Sat (Calc) VBG Base Excess VBG Potassium Hgb O2 Saturation 96.6 Glucose Lactate FiO2 100.0 Crit Value Called To Crit Value Called By Blood Gas Notified Time Sodium Potassium Chloride Carbon Dioxide Anion Gap BUN Creatinine Est GFR ( Amer) Est GFR (Non-Af Amer) POC Glucose (mg/dL) 103 Random Glucose Calcium Phosphorus Magnesium Total Bilirubin AST ALT Alkaline Phosphatase Lactate Dehydrogenase Total Creatine Kinase Troponin I NT-Pro-B Natriuret Pep 4220 H Total Protein Albumin Globulin Albumin/Globulin Ratio Procalcitonin Venous Blood Potassium Urine Color Urine Appearance Urine pH Ur Specific [place] Urine Protein Urine Glucose (UA) Urine Ketones Urine Blood Urine Nitrate Urine Bilirubin Urine Urobilinogen Ur Leukocyte Esterase Urine RBC Urine WBC Ur Epithelial Cells Urine Bacteria 06/24/18 06/24/18 06/24/18 09:30 09:30 10:56 WBC 4.1 L RBC 3.50 Hgb 10.4 L D Hct 33.1 L MCV 94.6 MCH 29.7 MCHC 31.4 RDW 16.8 H Plt Count 105 L MPV 10.0 Neut % (Auto) 91.9 H Lymph % (Auto) 3.7 L [place] % (Auto) 4.2 Eos % (Auto) 0.2 L Baso % (Auto) 0.0 Lymph # (Auto) 0.2 L [place] # (Auto) 0.2 Eos # (Auto) 0.0 Baso # (Auto) 0.00 Absolute Neuts (auto) 3.75 Neutrophils % (Manual) 60 Band Neutrophils % 13 H* Lymphocytes % (Manual) 8 L Monocytes % (Manual) 14 H Eosinophils % (Manual) 1 Metamyelocytes % 3 Myelocytes % 1 Large Platelets Present pCO2 pO2 HCO3 ABG pH ABG Total CO2 ABG O2 Saturation ABG O2 Content ABG Base Excess ABG Hemoglobin ABG Carboxyhemoglobin POC ABG HHb (Measured) ABG Methemoglobin ABG O2 Capacity VBG pH VBG pCO2 VBG HCO3 VBG Total CO2 VBG O2 Sat (Calc) VBG Base Excess VBG Potassium Hgb O2 Saturation Glucose Lactate FiO2 Crit Value Called To Crit Value Called By Blood Gas Notified Time Sodium 140 Potassium 3.7 Chloride 113 H Carbon Dioxide 18 L Anion Gap 13 BUN 37 H Creatinine 1.0 Est GFR ( Amer) > 60 Est GFR (Non-Af Amer) > 60 POC Glucose (mg/dL) 123 H Random Glucose 113 H Calcium 8.5 Phosphorus Magnesium 1.5 L Total Bilirubin 1.2 AST 32 ALT 16 Alkaline Phosphatase 55 Lactate Dehydrogenase 412 Total Creatine Kinase 169 Troponin I 2.67 H* D NT-Pro-B Natriuret Pep Total Protein 4.5 L Albumin 2.6 L Globulin 1.9 Albumin/Globulin Ratio 1.4 Procalcitonin Venous Blood Potassium Urine Color Urine Appearance Urine pH Ur Specific [place] Urine Protein Urine Glucose (UA) Urine Ketones Urine Blood Urine Nitrate Urine Bilirubin Urine Urobilinogen Ur Leukocyte Esterase Urine RBC Urine WBC Ur Epithelial Cells Urine Bacteria 06/24/18 11:10 WBC RBC Hgb Hct MCV MCH MCHC RDW Plt Count MPV Neut % (Auto) Lymph % (Auto) [place] % (Auto) Eos % (Auto) Baso % (Auto) Lymph # (Auto) [place] # (Auto) Eos # (Auto) Baso # (Auto) Absolute Neuts (auto) Neutrophils % (Manual) Band Neutrophils % Lymphocytes % (Manual) Monocytes % (Manual) Eosinophils % (Manual) Metamyelocytes % Myelocytes % Large Platelets pCO2 pO2 38 HCO3 ABG pH ABG Total CO2 ABG O2 Saturation ABG O2 Content ABG Base Excess ABG Hemoglobin ABG Carboxyhemoglobin POC ABG HHb (Measured) ABG Methemoglobin ABG O2 Capacity VBG pH 7.11 L* VBG pCO2 44.0 VBG HCO3 14.0 L VBG Total CO2 15.4 L VBG O2 Sat (Calc) 63.0 VBG Base Excess -15.1 L VBG Potassium 3.9 Hgb O2 Saturation Glucose 131 H Lactate 7.9 H* FiO2 21.0 Crit Value Called To Gaby rangel Crit Value Called By Es Blood Gas Notified Time 1129 Sodium 142.0 Potassium Chloride 108.0 H Carbon Dioxide Anion Gap BUN Creatinine Est GFR ( Amer) Est GFR (Non-Af Amer) POC Glucose (mg/dL) Random Glucose Calcium Phosphorus Magnesium Total Bilirubin AST ALT Alkaline Phosphatase Lactate Dehydrogenase Total Creatine Kinase Troponin I NT-Pro-B Natriuret Pep Total Protein Albumin Globulin Albumin/Globulin Ratio Procalcitonin Venous Blood Potassium 3.9 Urine Color Urine Appearance Urine pH Ur Specific [place] Urine Protein Urine Glucose (UA) Urine Ketones Urine Blood Urine Nitrate Urine Bilirubin Urine Urobilinogen Ur Leukocyte Esterase Urine RBC Urine WBC Ur Epithelial Cells Urine Bacteria Assessment & Plan - Assessment and Plan (Free Text) Assessment: 77-year-old male with a history of CAD, COPD, prostate cancer, Parkinson's disease, Alzheimer's disease, peptic ulcer disease, diabetes type 2, recurrent urinary tract infections who is admitted with septic shock,pneumonia, respiratory failure, hypotension The patients at bedside. has been updated of patient medical situation by [employer] detention worker. She is aware that his prognosis is poor. states that he has pulled through these types of crisis in the past. I explained that due to patients multiple medical comorbidities the probability of rebounding is low. She is aware that he is receiving the maximum dose of three vasopressor medications to maintain his blood pressure. Resuscitation status discussed. Ramifications of CPR explained in detail. states that she does not want to put him through that but will not make a decision unless her daughters are in agreement. Dr Varela spoke with patients youngest daughter via speaker phone, and m yself also present during conversation. Dr Varela provided a detailed update of patients condition. Goals of care and advanced care planning with family, 50 minutes, Psychosocial support provided Plan: Goals of care and advance care planning Sepsis/pneumonia: Roberts cultures pending. ID rec reviewed,continue Doxycycline,Merrem,Vancomycin Respiratory Failure: Intubated, maintain SA 02> 95%,Solumedrol, nebulizers Continue vasopressors, IVF's, DVT prophylaxis
[2018-06-24 15:14] LABS: VENOUS BLOOD GAS BASE EXCESS -25.8 mmol/L (0.0-2.0); VENOUS BLOOD GAS PO2 73 mm/Hg (30-55); VENOUS BLOOD PH 6.87 (7.32-7.43)
--- NOTE | 2018-06-24 15:18 | HP ---
DATE OF EXAM: 06/24/2018 HISTORY OF PRESENT ILLNESS: I saw him in the [facility], he was doing fairly well early in the morning. He had a cough and shortness of breath. I sent him to the emergency room in acute respiratory distress, I called 911. He is now in the Intensive Care Unit on the ventilator. He is intubated. He is 77-year-old white man who I know very well who had shortness of breath, fever and cough, sent to the emergency room, is intubated in the Intensive Care Unit. PAST MEDICAL HISTORY: Alzheimer's disease, CAD with stent placement, CHF, COPD, diabetes, GERD, BPH. He needed open heart surgery would not do it, too high risk, hypothyroidism, diabetes. He has transfusions in the past, eczema, melanoma, GERD, incontinence, prostate cancer. SOCIAL HISTORY: Former smoker. No alcohol. No drugs. ALLERGIES: ROCEPHIN. MEDICATIONS: He is on aspirin, Aricept, Synthroid, Tylenol, Lipitor, Singulair, carbidopa for his Parkinson's, Glucerna, omeprazole, DuoNebs, Plavix, Diflucan, Bactrim for UTI. REVIEW OF SYSTEMS: At this time, unable to get any review of systems. He is intubated and sedated. PHYSICAL EXAMINATION VITAL SIGNS: He has a 101.3 temperature, 100 pulse, 116 regular pulse, 37 breaths per minute, 91% on ventilator. HEENT: Head is atraumatic, normocephalic. HEART: Regular rate, little tachy. LUNGS: Decreased breath sounds bilaterally. ABDOMEN: Soft, nontender. Positive bowel sounds. EXTREMITIES: No edema. He is intubated. SKIN: For I could tell for the most part is intact, I cannot tell the back side. At this time, he is on the ventilator, lying flat. LABORATORY DATA: He had multiple tests. Chest x-ray showed bilateral lower lobe infiltrates. He has a 4.3 white count, 13 hemoglobin, 39.7 hematocrit with 146 platelets. His lactate was 4.3, 5.1 and then 4.5. Sodium 137, potassium 4.9, BUN 43, creatinine 1, GFR is greater than 60, sugar is 160. Calcium is 10.4, phosphorus 3.8, magnesium 1.9, total bili is 1.5. AST is 31, ALT is 12, alk phos is 80. Troponin is also elevated at 0.26. ASSESSMENT AND PLAN: He also could be having an KS and his urine was moderate. 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 We will continue aggressive treatment and care. I discussed this with family at length. He has a very poor prognosis today when everything done. Sean Nicholson DO MTDD
[2018-06-24] MEDS ORDERED: Dextrose 50% SYRINGE Inj (50 ml) IVP ONE ×2 (15:33→15:55)
[2018-06-24] MEDS ORDERED: Sodium Bicarbonate (8.4%) 50 Meq Syringe IVP ONE ×2 (15:35→15:36)
[2018-06-24] MEDS ORDERED: Insulin Regular 1 UNITS/0.01 ML ML IVP ONE (15:36)
[2018-06-24] MEDS ORDERED: Calcium Gluconate in NS 1 GM/50 ML BAG IV ONE (15:45)
--- NOTE | 2018-06-24 15:57 | CON ---
DATE OF CONSULTATION: 06/24/2018 CARDIOLOGY CONSULTATION HISTORY: The patient is a 77-year-old male, who presents with respiratory failure, he is intubated in the ICU. PAST MEDICAL HISTORY: The patient's past medical history includes severe Alzheimer's, history of recurrent CHF, COPD, diabetes mellitus and GERD. He has documented triple-vessel CAD, in which a stent was unsuccessfully placed, but remains in the distal portion of the left main and in the proximal LAD. He was sent over to [facility] for coronary artery bypass surgery in which after extensive discussion with a cardiac surgeon and the family, it was decided not to go for cardiac surgery because of his high risk for any procedure. Currently, the patient is on a ventilator. REVIEW OF SYSTEMS: Not available. PHYSICAL EXAMINATION: VITAL SIGNS: Blood pressure 78/47, heart rate is 100. NECK: Negative JVD. LUNGS: Decreased breath sounds bilaterally. HEART: Reveals S1, S2. EXTREMITIES: Unchanged. LABORATORY DATA: Hemoglobin is 13. Troponin is 0.20. The ProBNP is 4220. IMPRESSION: 1. Respiratory failure. 2. Acute systolic congestive heart failure. 3. Diffuse coronary atherosclerosis with disease in all three vessels as well as a retained stent in the distal portion of the left main and proximal left anterior descending. 4. Alzheimer's disease. 5. Diabetes mellitus. 6. Chronic obstructive pulmonary disease. PLAN: Given these findings, the patient's prognosis is poor. We will try to control his respiratory status. Because of his retained stent, we will need to start him on Plavix. Janusz Landry MD
[2018-06-24] MEDS ORDERED: Sodium Bicarbonate 8.4% 150 MEQ in Dextrose 5% In Water 1,000 ML IV SCH (16:00)
[2018-06-24 16:17] LABS: CK MB% 14.7 % (2.5-3.0)
[2018-06-24 19:14] VITALS: O2SAT 80
[2018-06-24] MEDS ORDERED: Dextrose 50% SYRINGE Inj (50 ml) ONE (22:17)
--- NOTE | 2018-06-24 22:42 | CARD ---
APPROVED REPORT Date of service: 06/24/2018 EKG Measurement Heart [id number] 160P [id number] <Conclusion> Sinus tachycardia -probable Baseline artifact Left axis deviation Intraventricular conduction delay of LBBB type Low voltage QRS Cannot rule out Anteroseptal infarct, age undetermined ST & T wave abnormalities Abnormal ECG
--- NOTE | 2018-06-24 23:23 | CP.PCM.PRO ---
<Raul Johnson - Last Filed: 06/24/18 23:17> Pronouncement of Note - Clinical Findings Physical Exam: No Response Verbal/Painful Stimuli, Absent Heart & Breath Sounds, No Pupillary Light Reflex, No Corneal Reflex, Pupils Fixed & Dilated, Absence of Vital Signs - Pronouncement Time Time of Pronouncement of : 22:55 - Notifications Pronouncement Notifications: Family Notified, Atending Notified - [place] [id number] <Juan Mcknight - Last Filed: 06/25/18 06:23> Attending/Attestation - Attestation I have personally seen and examined this patient.: No I have fully participated in the care of the patient.: No I have reviewed all pertinent clinical information: No
[2018-06-25 01:20] VITALS: BP 160/116; PULSE 98; RESP 16; TEMP 96.8
== END 2018-06-24 22:55 | DRG 871 ==
LOC: ED 23:42 → ERH 06-24 01:04 → CCU 06-24 03:18
PROVIDERS: ADMIT Family Medicine; ATTEND Family Medicine
PROC: 5A1935Z Respiratory Ventilation, Less than 24 Consecutive Hours (ICD-10-PCS; principal; 2018-06-24)
PROC: 0BH17EZ Insertion of Endotracheal Airway into Trachea, Via Natural or Artificial Opening (ICD-10-PCS; 2018-06-24)
PROC: 05HM33Z Insertion of Infusion Device into Right Internal Jugular Vein, Percutaneous Approach (ICD-10-PCS; 2018-06-24)
PROC: 3E043XZ Introduction of Vasopressor into Central Vein, Percutaneous Approach (ICD-10-PCS; 2018-06-24)
PROC: B543ZZA Ultrasonography of Right Jugular Veins, Guidance (ICD-10-PCS; 2018-06-24)
DX: A41.9 Sepsis, unspecified organism (principal); J69.0 Pneumonitis due to inhalation of food and vomit; R65.21 Severe sepsis with septic shock; I50.21 Acute systolic (congestive) heart failure; J96.01 Acute respiratory failure with hypoxia; I21.4 Non-ST elevation (NSTEMI) myocardial infarction; E87.2 Acidosis; I11.0 Hypertensive heart disease with heart failure; G30.9 Alzheimer's disease, unspecified; G20 Parkinson's disease; F02.80 Dementia in other diseases classified elsewhere, unspecified severity, without behavioral disturbance, psychotic disturbance, mood disturbance, and anxiety; N40.0 Benign prostatic hyperplasia without lower urinary tract symptoms; J44.9 Chronic obstructive pulmonary disease, unspecified; K21.9 Gastro-esophageal reflux disease without esophagitis; E11.9 Type 2 diabetes mellitus without complications; I25.10 Atherosclerotic heart disease of native coronary artery without angina pectoris; E03.9 Hypothyroidism, unspecified; Z85.46 Personal history of malignant neoplasm of prostate; Z87.11 Personal history of peptic ulcer disease; Z79.02 Long term (current) use of antithrombotics/antiplatelets; Z79.82 Long term (current) use of aspirin; Z87.891 Personal history of nicotine dependence; Z95.5 Presence of coronary angioplasty implant and graft; Z95.1 Presence of aortocoronary bypass graft